=== PATIENT | female | born 1960 | race Hispanic/Latino ===

== ENCOUNTER 2024-03-05 17:41 | Emergency (ER) | payer BC, OTHER ==
--- OUTSIDE RECORDS SUMMARY | 2024-03-05 17:57 | XMS REPORT | Continuity of Care Document ---
Author Name Unknown Address [address] [facility] [address] [place] [address] [facility] Address [address] [facility] [address] [place] [address] Care Team Providers Care Eye Glass Frame Polisher Name Role Phone Ginette Nguyen Primary Care Physician [phone] JONATAN DIEZ Attending Clinician Unavaila ble Doctor Unassigned, [place] Attending Clinician U Bertin Alfonso MD Attending Clinician [phone] PUNEET RANDOLPH Attending Clinician Unavailable PUNEET RANDOLPH Attending Clinician Unavailable Bladimir BEAR, Justyn Gomez Attending Clinician [phone] Mando BEAR, Pawel Cortez Attending Clinician [phone] Serena BEAR, Delmar Attending Clinician [phone] Draw, Clc-B[facility] Lab Attending Clinician UnavailJonatan Woodson MD Attending Clinician + [phone] Desirae Corona Attending Clinician [phone] Dayan Nevarez MD Attending Clinician [phone] Puneet Randolph DO Attending Clinician [phone] Bertin Bates DO Attending Clinician [phone] Jignesh BEAR, Elmer Attending Clinician [phone] Franklyn BEAR, Pradeep Attending Clinician [phone] Rachel Lange CRNA Attending Clinician [phone] Kathleen BEAR, Rajesh Solorzano Attending Clinician [phone] Kamran BEAR, Hank Attending Clinician [phone] Clara BEAR, Len Attending Clinician [phone] Ara BEAR, Kwame Attending Clinician [phone] Kath Oden DO Attending Clinician [phone] Doctor Unassigned, [place] Attending Clinician U purvi Diez MD, Jonatan Dennis Attending Clinician + [phone] 2, Nelly Mda Procedure Rm Attending Clinician Unav ailable [email or web address] Attending Clinician Unavaila JACKY Guillaume Attending Clinician Unavailable JACKY ALMEIDA Attending Clinician Unavailable Leroy Martel MD Attending Clinician [phone] LEROY MARTEL Attending Clinician Unavailable Elton HOLDEN, Rasheeda Marroquin Attending Clinician Unavailetta Carroll MD, Glen Attending Clinician + [phone] Edward Ramríez MD Attending Clinician [phone] Floridalma HOLDEN, Tressa Rivera Attending Clinician Unavail able YO GREER Attending Clinician UnavailKarely QUIROZ, Otilia S Attending Clinician [phone] Yo Greer MD Attending Clinician [phone] Lab, Ang - Db Attending Clinician Unavailable KENNY YU Attending Clinician Unavailab Kenny Menon DO Attending Clinician [phone] RADHA PENA Attending Clinician Unavailable Pob, Adc Lab Main Attending Clinician UnavailStewart Styles MD Attending Clinician [phone] STEWART CASTANEDA Attending Clinician Unavailable Radha Pena MD Attending Clinician [phone] Chico Sotelo MD Attending Clinician [phone] CHICO SOTELO Attending Clinician Unavailable Cely BEAR, Danny Attending Clinician [phone] DANNY ANAYA Attending Clinician UnavailMaria Elena MARTINS, Jordan Attending Clinician [phone] JORDAN OTERO Attending Clinician Unavailable NICA HOSKINS Attending Clinician Unavailable Sara UTCKER, Nica Urban Attending Clinician [phone] Sabrina TRAFFIC OPERATIONS MANAGER, Leonidas Attending Clinician [phone] LEONIDAS MCGEE Attending Clinician Unavailable DELMAR GREER Admitting Clinician Unavailable Delmar Greer MD Admitting Clinician [phone] BERTIN ADAME Admitting Clinician Unavailable Bertin Adame MD Admitting Clinician [phone] [email or web address] Admitting Clinician UnavailLEROY Pulido Admitting Clinician Unavailable Leroy Martel MD Admitting Clinician [phone] YO GREER Admitting Clinician UnavailYo Elaine MD Admitting Clinician RADHA PENA Admitting Clinician Unavailable Radha Pena MD Admitting Clinician [phone] CHICO SOTELO Admitting Clinician Unavailable JORDAN OTERO Admitting Clinician Unavailable Payers Payer Name Policy Type Policy Number Effective Date Expirati on Date Source HIM [facility] [id number] 2022 00:00:00 Problems Condition Name Condition Details Condition Category Status Onset Date Resolution Date Last Treatment Date Treating Clinician Comments Source Hematuria, unspecifie d type Hematuria, unspecifie d type Disease Active 02-02 00:00: 00 [facility] Coagulatio n defect Coagulatio n defect Disease Active 12-31 00:00: 00 [facility] Nausea and vomiting, unspecifie d vomiting type Nausea and vomiting, unspecifie d vomiting type Disease Active 12-19 00:00: 00 [facility] Gross hematuria Gross hematuria Disease Active 12-19 00:00: 00 [facility] PVT (portal vein thrombosis ) PVT (portal vein thrombosis ) Disease Active 8-08 00:00: 00 [facility] Abdominal pain, unspecifie d abdominal location Abdominal pain, unspecifie d abdominal location Disease Active 7 00:00: 00 [facility] Personal history of colonic polyps Personal history of colonic polyps Disease Active 6 00:00: 00 Overview: Formattin g of this note might be different from the original. Added automatic ally from request for surgery [id number] [facility] Hematuria of unknown etiology Hematuria of unknown etiology Disease Active 3-02 00:00: 00 [facility] Radiation proctitis Radiation proctitis Disease Active 2021-05 2-16 00:00: 00 [facility] Hematochez ia Hematochez ia Disease Active 2021-05 1- 00:00: 00 [facility] Essential (primary) hypertensi on Essential (primary) hypertensi on Disease Recurre nce 12-09 00:00: 00 [facility] Urinary tract infection, site not specified Urinary tract infection, site not specified Disease Active 09-17 00:00: 00 [facility] H/O: hysterecto my H/O: hysterecto my Disease Active 09-17 00:00: 00 [facility] History of cervical cancer History of cervical cancer Disease Active 09-17 00:00: 00 [facility] Obesity Obesity Disease Active 09-17 00:00: 00 Overview: Formattin g of this note might be different from the original. 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 [facility] Hypothyroi d Hypothyroi d Disease Active 09-17 00:00: 00 [facility] Tobacco use disorder Tobacco use disorder Disease Active 09-17 00:00: 00 [facility] Allergies, Adverse Reactions, Alerts Allergy Name Allergy Type Status Severity Reaction(s) Onset Date Inactive Date Treating Clinician Comments Source [place] - Intraven ous Propensi ty to adverse reaction to drug Active 11-21 00:00: 00 Jonatan Eason NO KNOWN ALLERGIE S Drug Class Active [facility] Family History Family Member Diagnosis Comments Start Date Stop Date Sourc e Natural [facility] Diabetes [facility] Natural daughter Hypertension [facility] Natural father Cancer Unive [facility] Maternal Aunt High cholesterol [facility] Paternal Uncle [facility] Social History Social Habit Start Date Stop Date Quantity Comments Source History of tobacco use Passive smoker [facility] History SDOH Alcohol Frequency [facility] History SDOH [facility] History SDOH Alcohol Binge [facility] Gender identity Univ [facility] Sexual orientation [facility] Alcoholic beverage intake 2023-12-31 00:00:00 2023-12-31 00:00:00 Current drinker of alcohol (finding) [facility] Alcohol intake 2023-03-29 00:00:00 2023-03-29 00:00:00 Current drinker of alcohol (finding) [facility] History of Social function 2023-01-23 00:00:00 2023-01-23 00:00:00 [facility] Tobacco use and exposure 2022-11-21 00:00:00 2022-11-21 00:00:00 Smokeless tobacco non-user [facility] Exposure to SARS-CoV-2 (event) 2022-09-24 00:00:00 2022-10-04 08:51:00 Not sure [facility] Alcohol Comment 2014-09-16 00:00:00 2014-09-16 00:00:00 social use-once every other week, beer-daily [facility] Sex assigned at 1960 00:00:00 1960 00:00:00 [facility] Smoking Status Start Date Stop Date Source Ex-smoker 2022-11-21 00:00:00 2022-11-21 00:00:00 [facility] Occasional tobacco smoker 2022-01-23 00:00:00 [facility] Medications Ordered Medication Name Filled Medication Name Start Date Stop Date Current Medication? Ordering Clinician Indication Dosage Frequency Signature (SIG) Comments Components Source lisinopril 10 mg-hydrochl orothiazide 12.5 mg tablet 2023-05 00:00: 00 Yes 1mg Jonatan Eason ibuprofen 600 mg tablet 2023-05 00:00: 00 Yes 1mg Jonatan Eason folic acid 1 mg tablet 2023-05 00:00: 00 Yes 1mg Jonatan Eason atorvastati n 40 mg tablet 2023-05 00:00: 00 Yes 1mg Jonatan Eason lactulose 10 gram/15 mL (15 mL) oral solution 2023-05 00:00: 00 Yes 30(15 mL) Jonatan Eason lisinopril 10 mg-hydrochl orothiazide 12.5 mg tablet 02-07 00:00: 00 Yes 1mg Jonatan Eason atorvastati n 40 mg tablet 02-07 00:00: 00 Yes 1mg Jonatan Eason levothyroxi ne 100 mcg capsule 02-07 00:00: 00 Yes 1mcg Jonatan Eason amLODIPine 5 mg tablet 02-04 13:56: 33 Yes 5mg Take 1 tablet by mouth in the morning. [facility] HYDROmorpho ne (DILAUDID) injection 0.2 mg 02-03 19:19: 56 02-03 20:49 :01 No .2mg 0.2 mg, Slow IV Push, Q5MIN PRN, 10 doses, Starting on Sun02/04/24 at 1419, Until Sun02/04/24 at 1549, Routine, Pain (scale 7-10), PACU, Is this medication approved by a Faculty level provider? Yes, community board member approving Restricted medication : PACU RECOVERY [facility] HYDROcodone -acetaminop hen (NORCO 5) tablet 1 tablet 02-03 04:45: 00 02-03 04:08 :00 No 1{tbl} 1 tablet, Oral, ONCE, 1 dose, On 02/03/24 at 2345, Routine [facility] atorvastati n (LIPITOR) tablet 40 mg 02-03 02:00: 00 Yes 40mg 40 mg, Oral, QHS, First dose on Sun02/03/24 at 2100, Until Discontinu ed, Routine [facility] sodium chloride 0.9 % irrigation solution 3,000 mL 02-02 17:50: 32 Yes 3000mL 3,000 mL, Irrigation , PRN, Starting on Sun02/03/24 at 1250, Until Discontinu ed, 3,000 mL [facility] cefTRIAXone (ROCEPHIN) 1,000 mg in NaCl 0.9% (NS) 100 mL MINI-BAG 02-02 17:49: 00 02-02 20:33 :00 No 1000mg 1,000 mg, IV Piggyback, ONCE, 1 dose, On Sun02/03/24 at 1300, Administer over 30 Minutes, 100 mL, Reason for Anti-Infec tive: Surgical Prophylaxi s, Surgical Prophylaxi s: Genitourin pao, Duration of therapy: within 24 hours of surgery [facility] NaCl 0.9% (NS) IV Line Priming and Flushing Fluid Only 250 mL 02-02 17:15: 00 02-02 18:27 :00 No 250mL 250 mL, IV Infusion, ONCE, 1 dose, On Sun02/03/24 at 1215, 250 mL [facility] ferrous sulfate tablet 325 mg 02-02 15:33: 10 Yes 325mg 325 mg, Oral, Q OTHERDAY, First dose on Sun02/03/24 at 1045, Until Discontinu ed, Routine [facility] lactulose (CEPHULAC) 10 gram/15 mL (15 mL) oral solution 30 mL 02-02 14:00: 00 Yes 30mL 30 mL, Oral, DAILY, First dose on Sun02/03/24 at 0900, Until Discontinu ed, Routine [facility] foLIC acid (FOLATE) tablet 1 mg 02-02 14:00: 00 Yes 1mg 1 mg, Oral, DAILY, First dose on Sun02/03/24 at 0900, Until Discontinu ed, Routine [facility] thiamine mononitrate (VITAMIN B-1 (MONONITRAT E)) tablet 100 mg 02-02 13:00: 00 Yes 100mg 100 mg, Oral, TID, First dose on Sun02/03/24 at 0800, Until Discontinu ed, Routine [facility] magnesium sulfate in water 4 gram/50 mL (8 %) IV Piggyback 4 g 02-02 12:30: 00 02-02 14:30 :00 No 4g 4 g, IV Piggyback, at 25 mL/hr Administer over 120 Minutes, ONCE, 1 dose, On Sun02/03/24 at 0730, Routine [facility] KCL (KLOR-CON M20) tablet 40 mEq 02-02 12:30: 00 02-02 14:06 :00 No 40meq 40 mEq, Oral, ONCE, 1 dose, On Sun02/03/24 at 0730, Routine [facility] levothyroxi ne (SYNTHROID) tablet 100 mcg 02-02 11:00: 00 Yes 100ug 100 mcg, Oral, QAM-0600, First dose on Sun02/03/24 at 0600, Until Discontinu ed, Routine [facility] iopamidol (ISOVUE 370-500 mL) injection 100 mL 02-02 08:45: 00 02-02 08:45 :00 No [id number] 100mL 100 mL, Intravenou s, ONCE, 1 dose, On Sun02/03/24 at 0345, Routine [facility] acetaminoph en (TYLENOL) tablet 650 mg 02-02 06:44: 01 Yes 650mg [facility] NaCl 0.9% (NS) IV Line Priming and Flushing Fluid Only 250 mL 02-02 05:45: 00 02-02 09:16 :00 No 250mL 250 mL, IV Infusion, ONCE, 1 dose, On Sun02/03/24 at 0045, 250 mL [facility] lisinopril 10 mg-hydrochl orothiazide 12.5 mg tablet 02-01 00:00: 00 Yes 1mg Jonatan Eason folic acid 1 mg tablet 02-01 00:00: 00 Yes 1mg Jonatan Eason atorvastati n 40 mg tablet 02-01 00:00: 00 Yes 1mg Jonatan Eason levothyroxi ne 100 mcg capsule 02-01 00:00: 00 Yes 1mcg Jonatan Eason lactulose 10 gram/15 mL (15 mL) oral solution 02-01 00:00: 00 Yes 1(15 mL) Jonatan Eason foLIC acid 1 mg tablet 01-04 00:00: 00 Yes [id number] 1mg Take 1 tablet by mouth in the morning. [facility] lactated ringers IV infusion 500 mL 01-03 14:15: 00 01-03 13:46 :00 No 500mL at 999 mL/hr, 500 mL, Intravenou s, ONCE, 1 dose, On Sun01/04/24 at 0915, Routine [facility] thiamine mononitrate 100 mg tablet 01-03 00:00: 00 Yes [id number] 100mg Take 1 tablet by mouth in the morning and 1 tablet at noon and 1 tablet in the evening. [facility] lactulose 10 gram/15 mL solution 01-03 00:00: 00 Yes [id number] 30mL Take 30 mL by mouth in the morning. [facility] atorvastati n 40 mg tablet 01-03 00:00: 00 Yes [id number] 40mg Take 1 tablet by mouth at bedtime. [facility] iopamidol (ISOVUE 300-100 mL) injection 200 mL 01-02 19:59: 36 01-02 20:00 :00 No [id number] 200mL 200 mL, Intravenou s, TITRATE - FOR PROCEDURE USE, 1 dose, Starting on Sun01/03/24 at 1459, Until Sun01/03/24 at 1500, Routine, Surgery/Pr ocedure [facility] iopamidol (ISOVUE 370-500 mL) injection 100 mL 12-31 21:15: 00 12-31 20:17 :00 No [id number] 100mL 100 mL, Intravenou s, ONCE, 1 dose, On Sun01/01/24 at 1615, Routine [facility] acetaminoph en-codeine (TYLENOL #3) 300-30 mg tablet 1 tablet 12-31 04:36: 28 Yes 1{tbl} 1 tablet, Oral, Q6HPRN, Starting on Sun12/31/23 at 2336, Until Discontinu ed, Routine, Pain (scale 4-6), Pain (scale 7-10) [facility] iopamidol (ISOVUE 300-100 mL) injection 300 mL 12-31 00:45: 00 12-30 23:47 :00 No [id number] 300mL 300 mL, Intravenou s, ONCE, 1 dose, On Sun12/31/23 at 1945, [facility] sugammadex (BRIDION) injection 12-30 23:30: 00 12-31 00:19 :09 No IV Push, ONCE INTRA PROCEDURE, Starting on Sun12/31/23 at 1830, Until Sun12/31/23 at 1919, Routine, Intra-op [facility] dexamethaso ne (DECADRON PHOSPHATE) injection 12-30 21:05: 00 12-31 00:19 :09 No IV Push, ONCE INTRA PROCEDURE, Starting on Sun12/31/23 at 1605, Until Sun12/31/23 at 191, Routine, Intra-op [facility] ondansetron (ZOFRAN (PF)) injection 12-30 21:05: 00 12-31 00:19 :09 No Slow IV Push, ONCE INTRA PROCEDURE, Starting on Sun12/31/23 at 1605, Until Sun12/31/23 at 191, Routine, Intra-op [facility] heparin (1,000 unit/mL, 10 mL vial) 12-30 20:32: 00 12-31 00:19 :09 No ONCE INTRA PROCEDURE, Starting on Sun12/31/23 at 1532, Until Sun12/31/23 at 1919, Routine, Intra-op [facility] heparin flush (PF) 2,000 units in 1000 mL NS RTU injection 12-30 20:26: 20 12-30 20:26 :20 No IV Push, PRN, Starting on Sun12/31/23 at 1526, Intra-op [facility] lidocaine 1% (PF) (XYLOCAINE) injection 12-30 20:25: 46 12-30 20:25 :46 No PRN, Starting on Sun12/31/23 at 1525, Until Sun12/31/23 at 1525, Routine, Intra-op [facility] PHENYLephri ne 1000 mcg/10 mL in 0.9% NaCl syringe 12-30 19:45: 00 12-31 00:19 :09 No Slow IV Push, CONTINUOUS PRN, Starting on Sun12/31/23 at 1445, Until Sun12/31/23 at 191, Routine, Intra-op [facility] ePHEDrine 25 mg/5 mL (5 mg/mL) syringe 12-30 19:35: 00 12-31 00:19 :09 No Slow IV Push, ONCE INTRA PROCEDURE, Starting on Sun12/31/23 at 1435, Until Sun12/31/23 at 191, Routine, Intra-op [facility] rocuronium (ZEMURON) injection 12-30 19:05: 00 12-31 00:19 :09 No IV Push, ONCE INTRA PROCEDURE, Starting on Sun12/31/23 at 1405, Until Sun12/31/23 at 191, Routine, Intra-op [facility] ceFAZolin (ANCEF) injection 12-30 18:55: 00 12-31 00:19 :09 No Intravenou s, ONCE INTRA PROCEDURE, Starting on Sun12/31/23 at 1355, Until Sun12/31/23 at 1919, NURIA, Intra-op [facility] NaCl 0.9% (NS) IV infusion 12-30 18:10: 12-31 00:19 :09 No IV Infusion, CONTINUOUS PRN, Starting on Sun12/31/23 at 1310, Until Sun12/31/23 at 191, Routine, Intra-op [facility] propofoL IV infusion 12-30 18:04: 00 12-31 00:19 :09 No Intravenou s, ONCE INTRA PROCEDURE, Starting on Sun12/31/23 at 1304, Until Sun12/31/23 at 1918, Routine, Intra-op [facility] lidocaine 1% (XYLOCAINE) 100 mg/10 mL (1 %) injection 12-30 18:04: 00 12-31 00:19 :09 No Intravenou s, ONCE INTRA PROCEDURE, Starting on Sun12/31/23 at 1304, Until Sun12/31/23 at 1918, Routine, Intra-op [facility] FENTanyl (PF) (SUBLIMAZE) injection 12-30 18:04: 00 12-31 00:19 :09 No Intravenou s, ONCE INTRA PROCEDURE, Starting on Sun12/31/23 at 1304, Until Sun12/31/23 at 1918, Routine, Intra-op [facility] lactated ringers IV infusion 12-30 17:56: 00 12-31 00:19 :09 No IV Infusion, CONTINUOUS PRN, Starting on Sun12/31/23 at 1256, Until Sun12/31/23 at 191, Routine, Intra-op [facility] midazolam (VERSED) injection 12-30 17:56: 00 12-31 00:19 :09 No IV Push, ONCE INTRA PROCEDURE, Starting on Sun12/31/23 at 1256, Until Sun12/31/23 at 1918, Routine, Intra-op [facility] carvediloL (COREG) tablet 3.125 mg 12-26 22:00: 00 01-01 12:13 :18 No 3.125mg 3.125 mg, Oral, BID MEALS, First dose on Tanisha 12/27/23 at 1700, Until Discontinu ed, Routine [facility] heparin 25,000 Units/250 mL (Premixed Bag) in 0.45 % NS 12-26 16:32: 44 12-28 00:54 :47 No 0U/h 0-2,350 Units/hr (0-23.5 mL/hr), IV Infusion, TITRATE, Parameters in Admin. Instr., Starting on Tanisha 12/27/23 at 1132, Initiate dosing: -Patient 73 kg or under: 1,300 Units/hr (Calculate d dose at 18 units/kg/h r) -Patient over 73 k,300 units/hr DO NOT Exceed the MAXIMUM 1,300 units/hr for initiation of heparin drip. CAUTION - If LMWH given in ER, AVOID bolus and start next dose/drip 12 hrs after ER dosage. Must program rate using programmab le infusion pump. Check with the ordering provider first prior to any administra tion should the patient be on existing/a dditional anticoagul ant therapy. Range, Dosing and Testing: DO NOT ADJUST INITIAL BOLUS OR INITIAL INFUSION RATE. FOR SNEADS, [facility], AND [facility] ONLY - aPTT < 35: Bolus 5000 units, increase rate 300 units/hr - aPTT 35-44: Bolus 3000 units, increase rate 200 units/hr - aPTT 45-54: Increase rate 100 units/hr - aPTT 55-85: NO CHANGE - aPTT 86-95: Decrease rate 100 units/hr - aPTT 96-120: Hold 30 minutes, decrease rate 150 units/hr - aPTT > 120: Hold 60 minutes, decrease rate 200 units/hr Check aPTT 6 hours after initiation , then Q6H after every change, aPTT Q12H once therapeuti c levels are reached. FOR [facility] ONLY - aPTT < 40: Bolus 5000 units, increase rate 300 units/hr - aPTT 40-49: Bolus 3000 units, increase rate 200 units/hr - aPTT 50-59: Increase rate 100 units/hr - aPTT 60-85: NO CHANGE - aPTT 86-95: Decrease rate 100 units/hr - aPTT 96-120: Hold 30 minutes, decrease rate 150 units/hr - aPTT > 120: Hold 60 minutes, decrease rate 200 units/hr Check aPTT 6 hours after initiation , then Q6H after every change, aPTT Q12H once therapeuti c levels are reached. [facility] heparin (1,000 unit/mL, 10 mL vial) 12-26 16:32: 35 Yes 3000U FOR REBOLUSING , Starting on Tanisha 12/27/23 at 1132, Until Discontinu ed, Routine, Dosing based on aPTT testing parameters (refer to continuous heparin drip order) [facility] thiamine mononitrate (VITAMIN B-1 (MONONITRAT E)) tablet 100 mg 12-24 13:00: 00 Yes 100mg 100 mg, Oral, TID, First dose on Sun12/25/23 at 0800, Until Discontinu ed, Routine [facility] oxazepam (SERAX) capsule 15 mg 12-23 22:53: 55 12-24 22:59 :00 Yes 15mg 15 mg, Oral, Q12H TAPER, 2 doses, First dose on Sun12/24/23 at 1800, Last dose on Sun12/25/23 at 0600, Routine [facility] KCL (KLOR-CON M20) tablet 40 mEq 12-22 19:30: 00 12-22 19:47 :00 No 40meq 40 mEq, Oral, ONCE, 1 dose, On 12/23/23 at 1430, Routine [facility] iopamidol (ISOVUE 370-500 mL) injection 100 mL 12-22 19:30: 00 12-22 20:17 :00 No [id number] 100mL 100 mL, Intravenou s, ONCE, 1 dose, On 12/23/23 at 1430, Routine [facility] foLIC acid (FOLATE) tablet 1 mg 12-22 14:00: 00 Yes 1mg 1 mg, Oral, DAILY, First dose on 12/23/23 at 0900, Until Discontinu ed, Routine [facility] lisinopriL (PRINIVIL,Z ESTRIL) tablet 10 mg 12-22 14:00: 00 12-27 11:28 :29 No 10mg 10 mg, Oral, DAILY, First dose on 12/23/23 at 0900, Until Discontinu ed, Routine [facility] levothyroxi ne (SYNTHROID) tablet 125 mcg 12-22 11:00: 00 Yes 125ug 125 mcg, Oral, QAM-0600, First dose (after last modificati on) on 12/23/23 at 0600, Until Discontinu ed, Routine [facility] lactulose (CEPHULAC) 10 gram/15 mL oral solution 30 mL 12-22 01:00: 00 Yes 30mL 30 mL, Oral, BID, First dose on 12/22/23 at 2000, Until Discontinu ed, Routine [facility] vitamin B-12 (CYANOCOBAL DAVIS) tablet 1,000 mcg 12-21 17:00: 00 Yes 1000ug 1,000 mcg, Oral, DAILY, First dose on 12/22/23 at 1200, Until Discontinu ed, Routine [facility] thiamine (VITAMIN B1) 100 mg in NaCl 0.9% (NS) piggyback 12-21 17:00: 00 12-24 01:35 :00 No 100mg IV Piggyback, TID, 9 doses, First dose on 12/22/23 at 1200, Last dose on 12/24/23 at 2000, 50 mL [facility] oxazepam (SERAX) capsule 15 mg 12-21 16:53: 55 Yes 15mg 15 mg, Oral, Q4HPRN, Starting on 12/22/23 at 1153, Until Discontinu ed, Routine, Only while awake for DBP equal to or greater than 100, HR equal to or greater than 100. [facility] cefTRIAXone (ROCEPHIN) 1,000 mg in NaCl 0.9% (NS) 100 mL MINI-BAG 12-21 06:00: 00 12-24 22:22 :05 No 1000mg 1,000 mg, IV Piggyback, Q24H ABX, 5 doses, First dose on Sun12/22/23 at 0100, Last dose on Sun12/26/23 at 0100, Administer over 30 Minutes, 100 mL, Reason for Anti-Infec tive: Empiric Non-Surgic al Prophylaxi s, Duration of therapy: 72 hours [facility] sodium chloride 0.9 % irrigation solution 3,000 mL 12-21 02:51: 05 Yes 3000mL 3,000 mL, Irrigation , PRN, Starting on Sun12/21/23 at 2151, Until Discontinu ed, 3,000 mL [facility] NaCl 0.9% (NS) IV infusion 1,000 mL 12-21 02:15: 00 12-24 22:17 :39 No 1000mL at 42 mL/hr, IV Infusion, CONTINUOUS , Starting on Sun12/21/23 at 2115, Until Sun12/25/23 at 1717, Routine [facility] sodium ferric gluconate (FERRLECIT) 125 mg in NaCl 0.9% (NS) 100 mL IV piggyback 12-20 16:00: 00 12-22 13:59 :00 No 125mg 125 mg, IV Piggyback, DAILY, 2 doses, First dose (after last reorder) on Sun12/21/23 at 1100, Last dose on Sun12/22/23 at 0900, Administer over 60 Minutes, 100 mL [facility] acetaminoph en (TYLENOL) tablet 650 mg 12-20 13:00: 00 12-20 13:52 :00 No 650mg 650 mg, Oral, ONCE, 1 dose, On Sun12/21/23 at 0800, Routine [facility] levothyroxi ne (SYNTHROID) tablet 100 mcg 12-20 11:00: 00 12-21 16:53 :37 No 100ug 100 mcg, Oral, QAM-0600, First dose on Sun12/21/23 at 0600, Until Discontinu ed, Routine [facility] atorvastati n (LIPITOR) tablet 40 mg 12-20 02:00: 00 Yes 40mg 40 mg, Oral, QHS, First dose on Sun12/20/23 at 2100, Until Discontinu ed, Routine [facility] sodium ferric gluconate (FERRLECIT) 125 mg in NaCl 0.9% (NS) 100 mL IV piggyback 12-20 00:00: 00 12-20 06:50 :00 No 125mg 125 mg, IV Piggyback, ONCE, 1 dose, On Sun12/20/23 at 1900, Administer over 60 Minutes, 100 mL [facility] KCL (KLOR-CON M20) tablet 40 mEq 12-19 19:15: 00 12-19 19:33 :00 No 40meq 40 mEq, Oral, ONCE, 1 dose, On Sun12/20/23 at 1415, Routine [facility] ondansetron (ZOFRAN (PF)) injection 4 mg 12-19 18:25: 49 Yes 4mg [facility] acetaminoph en (TYLENOL) tablet 650 mg 12-19 18:25: 32 Yes 650mg 650 mg, Oral, Q6HPRN, Starting on Sun12/20/23 at 1325, Until Discontinu ed, Routine, Pain (scale 1-3), Temp > 38 C [facility] iopamidol (ISOVUE 370-500 mL) injection 80 mL 12-19 17:00: 00 12-19 17:00 :00 No [id number] 80mL 80 mL, Intravenou s, ONCE, 1 dose, On Sun12/20/23 at 1200, Routine [facility] atorvastati n 40 mg tablet 12-19 16:26: 37 2024- 08-08 00:00 :00 No 40mg Take 1 tablet by mouth at bedtime. [facility] lisinopriL- hydrochloro thiazide 20-25 mg per tablet 12-19 16:26: 35 01-03 00:00 :00 No 1{tbl} Take 1 tablet by mouth in the morning. [facility] ondansetron (ZOFRAN (PF)) injection 4 mg 12-19 15:00: 00 12-19 14:23 :00 No 4mg 4 mg, Slow IV Push, ONCE, 1 dose, On [facility] 12/20/23 at 1000, NURIA [facility] NaCl 0.9% (NS) bolus infusion 1,000 mL 12-19 14:45: 00 12-19 15:14 :00 No 1000mL at 999 mL/hr, 1,000 mL, IV Infusion, ONCE, 1 dose, On [facility] 12/20/23 at 0945, STAT [facility] TAKE 1 TABLET BY MOUTH ONCE DAILY 07-04 00:00: 00 Yes 100 Jonatan Eason TAKE 1 TABLET BY MOUTH ONCE DAILY 06-25 00:00: 00 07-09 00:00 :00 No 100 Jonatan Eason TAKE 1 TABLET DAILY. 05-21 00:00: 00 Yes 2024 Jonatan Eason USE 1 SPRAY IN EACH NOSTRIL TWICE DAILY. 2022-05 00:00: 00 07-09 00:00 :00 No 5 Jonatan Eason atorvastati n 40 mg tablet 02-02 10:53: 26 Yes 40mg Take 1 tablet by mouth at bedtime. [facility] lisinopriL- hydrochloro thiazide 20-25 mg per tablet 02-02 10:53: 26 Yes 1{tbl} Take 1 tablet by mouth in the morning. [facility] lisinopriL- hydrochloro thiazide 20-25 mg per tablet 01-23 19:40: 32 Yes 1{tbl} Take 1 tablet by mouth in the morning. [facility] atorvastati n 40 mg tablet 01-23 19:40: 32 Yes 40mg Take 1 tablet by mouth at bedtime. [facility] midazolam (VERSED) injection 01-23 14:43: 00 01-23 15:10 :29 No IV Push, ONCE INTRA PROCEDURE, Starting on Sun01/23/23 at 0943, Until Sun01/23/23 at 1010, Routine, Intra-op [facility] FENTanyl PF (SUBLIMAZE (PF)) injection 01-23 14:40: 00 01-23 15:10 :29 No Epidural, ONCE INTRA PROCEDURE, Starting on Sun01/23/23 at 0940, Until Sun01/23/23 at 1010, Routine, Intra-op [facility] lidocaine 1% (XYLOCAINE) 100 mg/10 mL (1 %) injection 01-23 14:34: 00 01-23 15:10 :29 No Slow IV Push, ONCE INTRA PROCEDURE, Starting on Sun01/23/23 at 0934, Until Sun01/23/23 at 1010, Routine, Intra-op [facility] propofoL IV infusion 01-23 14:34: 00 01-23 15:10 :29 No IV Infusion, ONCE INTRA PROCEDURE, Starting on Sun01/23/23 at 0934, Until Sun01/23/23 at 1010, Routine, Intra-op [facility] simethicone (GAS RELIEF (SIMETHICON E)) 40 mg/0.6 mL drops 01-23 14:33: 00 01-23 15:10 :00 No PRN, Starting on Sun01/23/23 at 0933, Until Sun01/23/23 at 1010, Routine, Intra-op [facility] lactated ringers IV infusion 01-23 14:26: 00 01-23 15:10 :29 No IV Infusion, CONTINUOUS PRN, Starting on Sun01/23/23 at 0926, Until Sun01/23/23 at 1010, Routine, Intra-op [facility] lactated ringers IV infusion 1,000 mL 01-23 13:45: 00 01-23 13:46 :00 No 1000mL at 42 mL/hr, 1,000 mL, IV Infusion, ONCE, 1 dose, On Sun01/23/23 at 0845, Routine, DSU Pre-op [facility] GAVILYTE-G 236 GM SOLR 01-19 00:00: 00 Yes Jonatan Eason peg-electro lyte soln 236-22.74-6 .74 -5.86 gram solution 01-19 00:00: 00 01-23 00:00 :00 No [id number] Take as directed before colonoscop y [facility] lisinopriL- hydrochloro thiazide 20-25 mg per tablet 11-23 15:29: 39 Yes 1{tbl} Take 1 tablet by mouth in the morning. [facility] atorvastati n 40 mg tablet 11-23 15:29: 39 Yes 40mg Take 1 tablet by mouth at bedtime. [facility] levothyroxi ne (SYNTHROID) 100 mcg tablet 11-23 15:29: 38 11-23 00:00 :00 No 100ug Take 1 tablet by mouth every morning. [facility] enoxaparin (LOVENOX) injection 40 mg 11-23 14:00: 00 Yes 40mg 40 mg, Subcutaneo us, DAILY, First dose on Sun11/23/22 at 0900, Until Discontinu ed, Routine [facility] pantoprazol e (PROTONIX) EC tablet 40 mg 11-23 13:15: 00 Yes 40mg 40 mg, Oral, Q12H, First dose on Sun11/23/22 at 0815, Until Discontinu ed, Routine [facility] KCL (KLOR-CON M20) tablet 40 mEq 11-23 13:10: 00 11-23 17:24 :00 No 40meq 40 mEq, Oral, ONCE, 1 dose, On Sun11/23/22 at 0815, [facility] atorvast[facility] (LIPITOR) tablet 40 mg 11-23 02:00: 00 Yes 40mg 40 mg, Oral, QHS, First dose on Sun11/22/22 at 2100, Until Discontinu ed, Routine [facility] lisinopriL (PRINIVIL,Z ESTRIL) tablet 20 mg 11-23 00:15: 00 Yes 20mg 20 mg, Oral, DAILY, First dose (after last modificati on) on Sun11/22/22 at 1915, Until Discontinu ed, Routine [facility] NaCl 0.9% (NS) IV infusion 1,000 mL 11-22 21:15: 00 11-23 14:17 :05 No 1000mL at 50 mL/hr, IV Infusion, CONTINUOUS , Starting on Sun11/22/22 at 1615, Until Sun11/23/22 at 0917, Routine [facility] diatrizoate maria esther-diatriz oat sod (GASTROGRAF IN) 66-10 % oral solution 120 mL 11-22 20:00: 00 11-22 20:00 :00 No [id number] 120mL 120 mL, Oral, ONCE, 1 dose, On Sun11/22/22 at 1500, Routine [facility] pantoprazol e (PROTONIX) injection 40 mg 11-22 13:00: 00 11-23 13:12 :51 No 40mg 40 mg, Slow IV Push, Q12H, First dose on Sun11/22/22 at 0800, Until Discontinu ed [facility] levothyroxi [facility] (SYNTHROID) tablet 125 mcg 11-22 11:00: 00 Yes 125ug 125 mcg, Oral, QAM-0600, First dose on Sun11/22/22 at 0600, Until Discontinu ed, [facility] levothyroxi [facility] (SYNTHROID) tablet 100 mcg 11-22 11:00: 00 11-23 00:12 :02 No 100ug 100 mcg, Oral, QAM-0600, First dose on Sun11/22/22 at 0600, Until Discontinu ed, Routine [facility] piperacilli n-tazobacta m (ZOSYN) 3.375 g in NaCl 0.9% (NS) 100 mL MINI-BAG 11-22 05:00: 00 11-22 17:30 :22 No 3.375g 3.375 g, IV Piggyback, Q6H, 6 doses, First dose on Sun11/22/22 at 0000, Last dose on Sun11/23/22 at 0600, Administer over 30 Minutes, 100 mL
Reas on for Anti-Infec tive: Documented Infection& lt;br>Docu mented Infection Site: Abdominal< br>Duratio n of Therapy: 7 days [facility] NaCl 0.9% (NS) IV infusion 1,000 mL 11-22 01:30: 00 11-22 21:09 :34 No 1000mL at 125 mL/hr, IV Infusion, CONTINUOUS , Starting on Sun11/21/22 at 2030, Until Sun11/22/22 at 1609, Routine [facility] ondansetron (ZOFRAN (PF)) injection 4 mg 11-22 01:18: 18 Yes 4mg 4 mg, Slow IV Push, Q6HPRN, Starting on Sun11/21/22 at 2018, Until Discontinu ed, Routine, Nausea and Vomiting (N/V) [facility] iopamidol (ISOVUE 370-500 mL) injection 65 mL 11-21 23:15: 00 11-21 23:15 :00 No [id number] 65mL 65 mL, Intravenou s, ONCE, 1 dose, On Sun11/21/22 at 1815, Routine [facility] proMETHazin e (PHENERGAN) 25 mg in NaCl 0.9% (NS) 50 mL IV piggyback 11-21 20:15: 00 11-21 20:21 :00 No 25mg 25 mg, IV Piggyback, ONCE, 1 dose, On Sun11/21/22 at 1515, NURIA [facility] NaCl 0.9% (NS) bolus infusion 1,000 mL 11-21 20:00: 00 11-21 20:20 :00 No 1000mL at 999 mL/hr, 1,000 mL, IV Infusion, ONCE, 1 dose, On Sun11/21/22 at 1500, STAT [facility] ondansetron (ZOFRAN (PF)) injection 4 mg 11-21 19:00: 00 11-21 19:09 :00 No 4mg 4 mg, Slow IV Push, ONCE, 1 dose, On Sun11/21/22 at 1400, NURIA [facility] CIPROFLOXAC IN HCL 500 MG TABS 11-03 00:00: 00 Yes Jonatan Eason estradioL (ESTRACE) 0.01 % (0.1 mg/gram) vaginal cream 11-03 00:00: 00 02-02 00:00 :00 No [id number] Apply 1g vaginally at bedtime every night for 2 weeks and then apply 1g vaginally at bedtime 2 times per week [facility] ciprofloxac in HCl (CIPRO) 500 mg tablet 11-03 00:00: 00 11-11 04:59 :00 No 500mg Take 1 tablet by mouth every 12 (twelve) hours for 7 days. [facility] sulfamethox azole-trime thoprim 800-160 mg per tablet 11-03 00:00: 00 11-03 00:00 :00 No [id number] 1{tbl} Take 1 tablet by mouth in the morning and 1 tablet in the evening. Do all this for 3 days. [facility] sulfamethox azole-trime thoprim 800-160 mg per tablet 10-31 00:00: 00 11-03 00:00 :00 No [id number] 1{tbl} Take 1 tablet by mouth in the morning and 1 tablet in the evening. Do all this for 3 days. [facility] peg-electro lyte soln 236-22.74-6 .74 -5.86 gram solution 6-09 00:00: 00 10-21 04:59 :00 No [id number] 8000mL Take 8,000 mL by mouth once now for 1 dose. [facility] LEVOTHYROXI NE SODIUM 100 MCG TABS 5-04 00:00: 00 07-09 00:00 :00 No Jonatan Eason lisinopriL- hydrochloro thiazide 20-25 mg per tablet 07-13 08:41: 40 Yes 1{tbl} Take 1 tablet by mouth in the morning. [facility] atorvastati n 40 mg tablet 07-13 08:41: 40 Yes 40mg Take 1 tablet by mouth at bedtime. [facility] AMLODIPINE BESYLATE 5 MG TABS 06-02 00:00: 00 Yes Jonatan Eason TAKE 1 TABLET DAILY. 05-25 00:00: 00 07-09 00:00 :00 No 100 Jonatan Eason TAKE 1 TABLET DAILY. 05-22 00:00: 00 07-09 00:00 :00 No 40 Jonatan Eason TAKE 1 TABLET BY MOUTH ONCE DAILY 05-22 00:00: 00 07-09 00:00 :00 No Jonatan Eason hydrocortis one 100 mg/60 mL enema 2021-05 00:00: 00 Yes [id number] 4102 100mg Insert 1 Enema into rectum at bedtime. [facility] HYDROCORTIS ONE 100 MG/60ML ENEM 2021-05 00:00: 00 Yes Jonatan Eason TAKE 1 CAPSULE BY MOUTH THREE TIMES DAILY FOR 10 DAYS 2021-05 00:00: 00 No USE DIRECTED , USE 1 UNIT PER YOUR COLONOSCOPY PREP PACKET 2021-05 00:00: 00 No TAKE 1 TABLET BY MOUTH ONCE DAILY 2021-05 00:00: 00 No TAKE 1 TABLET DAILY. 2021-05 00:00: 00 No TAKE 1 TABLET DAILY. 2021-05 00:00: 00 No TAKE 1 TABLET BY MOUTH ONCE DAILY 2021-05 00:00: 00 No Dose Unknown 2021-05 00:00: 00 No INSTILL 1 DROP EVERY NIGHT AT BEDTIME BOTH EYES 2021-05 00:00: 00 No Dose Unknown 2021-05 00:00: 00 No TAKE DIRECTED 2021-05 00:00: 00 No TAKE 1 CAPSULE BY MOUTH THREE TIMES DAILY FOR 10 DAYS 2021-05 00:00: 00 Yes Jonatan Eason USE DIRECTED , USE 1 UNIT PER YOUR COLONOSCOPY PREP PACKET 2021-05 00:00: 00 Yes Jonatan Eason TAKE 1 TABLET BY MOUTH ONCE DAILY 2021-05 00:00: 00 Yes Jonatan Eason Dose Unknown 2021-05 00:00: 00 Yes Jonatan Eason INSTILL 1 DROP EVERY NIGHT AT BEDTIME BOTH EYES 2021-05 00:00: 00 Yes Jonatan Eason Dose Unknown 2021-05 00:00: 00 Yes Jonatan Eason Dose Unknown 2021-05 00:00: 00 Yes Jonatan Eason TAKE 1 TABLET DAILY. 2021-05 00:00: 00 07-09 00:00 :00 No Jonatan Eason TAKE 1 TABLET DAILY. 2021-05 00:00: 00 07-09 00:00 :00 No Jonatan Eason TAKE 1 TABLET BY MOUTH ONCE DAILY 2021-05 00:00: 00 07-09 00:00 :00 No Jonatan Eason water for irrigation irrigation solution 2021-05 13:48: 00 04-21 14:38 :32 No PRN, Starting on Sun04/21/22 at 0748, Until Sun04/21/22 at 0838, Routine, Intra-op [facility] simethicone (GAS RELIEF (SIMETHICON E)) 40 mg/0.6 mL drops 2021-05 13:48: 00 04-21 14:38 :32 No PRN, Starting on Sun04/21/22 at 0748, Until Sun04/21/22 at 0838, Routine, Intra-op [facility] lactated ringers IV infusion 1,000 mL 2021-05 13:15: 00 04-21 13:28 :00 No 1000mL at 42 mL/hr, 1,000 mL, IV Infusion, ONCE, 1 dose, On Sun04/21/22 at 0715, Routine, DSU Pre-op [facility] lisinopriL- hydrochloro thiazide 20-25 mg per tablet 2021-05 09:23: 32 Yes 1{tbl} Take 1 tablet by mouth in the morning. [facility] atorvastati n 40 mg tablet 2021-05 09:23: 32 Yes 40mg Take 40 mg by mouth at bedtime. [facility] INSTILL 1 DROP INTO BOTH EYES EVERY NIGHT AT BEDTIME 2021-05 00:00: 00 Yes Jonatan Eason TRAVOPROST (ANA FREE) 0.004 % SOLN 2021-05 00:00: 00 Yes Jonatan Eason TAKE DIRECTED 2021-05 00:00: 00 Yes Jonatan Eason ESTRADIOL 0.1 MG/GM CREA 2021-05 00:00: 00 Yes 1 Jonatan Eason lisinopriL- hydrochloro thiazide 20-25 mg per tablet 2021-05 14:57: 17 Yes 1{tbl} Take 1 tablet by mouth in the morning. [facility] atorvastati n 40 mg tablet 2021-05 14:57: 17 Yes 40mg Take 40 mg by mouth at bedtime. [facility] TAKE 1 TABLET BY MOUTH ONCE DAILY 01-23 00:00: 00 No TAKE 1 TABLET BY MOUTH ONCE DAILY 01-23 00:00: 00 No TAKE 1 TABLET BY MOUTH ONCE DAILY 01-23 00:00: 00 No TAKE 1 TABLET BY MOUTH ONCE DAILY 01-23 00:00: 00 No TAKE 1 TABLET BY MOUTH ONCE DAILY 01-23 00:00: 00 No TAKE 1 TABLET BY MOUTH ONCE DAILY 01-23 00:00: 00 Yes Jonatan Elisabeth Jenaro Dose Unknown 8-15 00:00: 00 No Dose Unknown 2022-0 8-15 00:00: 00 No Dose Unknown 2022-0 8-15 00:00: 00 No Dose Unknown 2022-0 8-15 00:00: 00 No Dose Unknown 2022-0 8-15 00:00: 00 No Dose Unknown 2022-0 8-15 00:00: 00 No Dose Unknown 2022-0 8-15 00:00: 00 Yes Jonatan Eason Dose Unknown 2022-0 8-15 00:00: 00 Yes Jonatan Eason TAKE 1 TABLET DAILY. 2022-0 8-10 00:00: 00 No 40 Dose Unknown 2022-0 8-10 00:00: 00 No TAKE 1 TABLET DAILY. 2022-0 8-10 00:00: 00 No 40 Dose Unknown 2022-0 8-10 00:00: 00 No TAKE 1 TABLET DAILY. 2022-0 8-10 00:00: 00 No 40 Dose Unknown 2022-0 8-10 00:00: 00 No TAKE 1 TABLET DAILY. 2022-0 8-10 00:00: 00 No 40 Dose Unknown 2022-0 8-10 00:00: 00 No TAKE 1 TABLET DAILY. 2022-0 8-10 00:00: 00 No 40 Dose Unknown 2022-0 8-10 00:00: 00 No TAKE 1 TABLET DAILY. 2022-0 8-10 00:00: 00 Yes 40 Jonatan Eason Dose Unknown 2022-0 8-10 00:00: 00 Yes Jonatan Eason Dose Unknown 2022-0 8-05 00:00: 00 No Dose Unknown 2022-0 8-05 00:00: 00 No Dose Unknown 2022-0 8-05 00:00: 00 No Dose Unknown 2022-0 8-05 00:00: 00 No Dose Unknown 2022-0 8-05 00:00: 00 No Dose Unknown 2022-0 8-05 00:00: 00 Yes Jonatan Eason Dose Unknown 2022-0 7-29 00:00: 00 No Dose Unknown 2022-0 7-29 00:00: 00 No Dose Unknown 2022-0 7-29 00:00: 00 No Dose Unknown 2022-0 7-29 00:00: 00 No Dose Unknown 2022-0 7-29 00:00: 00 No Dose Unknown 2022-0 7-29 00:00: 00 Yes Jonatan Eason TAKE 1 TABLET DAILY. 12-05 00:00: 00 No 88 TAKE 1 TABLET DAILY. 12-05 00:00: 00 No 88 TAKE 1 TABLET DAILY. 12-05 00:00: 00 No 88 TAKE 1 TABLET DAILY. 12-05 00:00: 00 No 88 TAKE 1 TABLET DAILY. 12-05 00:00: 00 No 88 TAKE 1 TABLET DAILY. 12-05 00:00: 00 Yes 88 Jonatan Eason TAKE 1 TABLET DAILY. 11-21 00:00: 00 No 100 TAKE 1 TABLET DAILY. 11-21 00:00: 00 No 100 TAKE 1 TABLET DAILY. 11-21 00:00: 00 No 100 TAKE 1 TABLET DAILY. 11-21 00:00: 00 No 100 TAKE 1 TABLET DAILY. 11-21 00:00: 00 No 100 TAKE 1 TABLET DAILY. 11-21 00:00: 00 No 100 TAKE 1 TABLET DAILY. 11-21 00:00: 00 Yes 100 Jonatan Eason Dose Unknown 08-22 00:00: 00 No Dose Unknown 08-22 00:00: 00 No levothyroxi ne 100 mcg tablet 08-22 00:00: 00 No 1mcg Dose Unknown 08-22 00:00: 00 No Dose Unknown 08-22 00:00: 00 No Dose Unknown 08-22 00:00: 00 No levothyroxi ne 100 mcg tablet 08-22 00:00: 00 Yes 1mcg Jonatan Eason TAKE 1 TABLET BY MOUTH ONCE DAILY 08-22 00:00: 00 Yes Jonatan Eason Dose Unknown 08-22 00:00: 00 Yes 100 Jonatan Eason atorvastati n 40 mg tablet 06-02 00:00: 00 No 1mg Dose Unknown 06-02 00:00: 00 No atorvastati n 40 mg tablet 06-02 00:00: 00 No 1mg Dose Unknown 06-02 00:00: 00 No atorvastati n 40 mg tablet 06-02 00:00: 00 No 1mg levothyroxi ne 100 mcg tablet 06-02 00:00: 00 No 1mcg atorvastati n 40 mg tablet 06-02 00:00: 00 No 1mg Dose Unknown 06-02 00:00: 00 No atorvastati n 40 mg tablet 06-02 00:00: 00 No 1mg Dose Unknown 06-02 00:00: 00 No atorvastati n 40 mg tablet 06-02 00:00: 00 No 1mg Dose Unknown 06-02 00:00: 00 No atorvastati n 40 mg tablet 06-02 00:00: 00 Yes 1mg Jonatan Eason levothyroxi ne 100 mcg tablet 06-02 00:00: 00 Yes 1mcg Jonatan Eason ferrous sulfate (IRON, FERROUS SULFATE,) 325 mg (65 mg iron) tablet 2020-05 00:00: 00 Yes [id number] 325mg Take 1 tablet by mouth every other day. [facility] docusate sodium 250 mg capsule 2020-05 00:00: 00 Yes [id number] 250mg Take 1 capsule by mouth daily. [facility] levothyroxi ne 100 mcg tablet 2020-05 00:00: 00 No 1mcg levothyroxi ne 100 mcg tablet 2020-05 00:00: 00 No 1mcg levothyroxi ne 100 mcg tablet 2020-05 00:00: 00 No 1mcg levothyroxi ne 100 mcg tablet 2020-05 00:00: 00 No 1mcg levothyroxi ne 100 mcg tablet 2020-05 00:00: 00 No 1mcg levothyroxi ne 100 mcg tablet 2020-05 00:00: 00 No 1mcg levothyroxi ne 100 mcg tablet 2020-05 0 00:00: 00 Yes 1mcg Jonatan Elisabeth Eason Dose Unknown 12-21 00:00: 00 No Dose Unknown 12-21 00:00: 00 No levothyroxi ne 112 mcg tablet 12-21 00:00: 00 No 1mcg Dose Unknown 12-21 00:00: 00 No Dose Unknown 12-21 00:00: 00 No Dose Unknown 12-21 00:00: 00 No levothyroxi ne 112 mcg tablet 12-21 00:00: 00 Yes 1mcg Jonatan Eason lisinopril 20 mg-hydrochl orothiazide 25 mg tablet 12-20 00:00: 00 No 1mg atorvastati n 40 mg tablet 12-20 00:00: 00 No 1mg ferrous sulfate 325 mg (65 mg iron) tablet 12-20 00:00: 00 No 1(65 mg iron) TAKE 1 TABLET DAILY. 12-20 00:00: 00 No atorvastati n 40 mg tablet 12-20 00:00: 00 No 1mg Dose Unknown 12-20 00:00: 00 No lisinopril 20 mg-hydrochl orothiazide 25 mg tablet 12-20 00:00: 00 No 1mg atorvastati n 40 mg tablet 12-20 00:00: 00 No 1mg ferrous sulfate 325 mg (65 mg iron) tablet 12-20 00:00: 00 No 1(65 mg iron) lisinopril 20 mg-hydrochl orothiazide 25 mg tablet 12-20 00:00: 00 No 1mg atorvastati n 40 mg tablet 12-20 00:00: 00 No 1mg ferrous sulfate 325 mg (65 mg iron) tablet 12-20 00:00: 00 No 1(65 mg iron) lisinopril 20 mg-hydrochl orothiazide 25 mg tablet 12-20 00:00: 00 No 1mg atorvastati n 40 mg tablet 12-20 00:00: 00 No 1mg ferrous sulfate 325 mg (65 mg iron) tablet 12-20 00:00: 00 No 1(65 mg iron) lisinopril 20 mg-hydrochl orothiazide 25 mg tablet 12-20 00:00: 00 No 1mg atorvastati n 40 mg tablet 12-20 00:00: 00 No 1mg ferrous sulfate 325 mg (65 mg iron) tablet 12-20 00:00: 00 No 1(65 mg iron) lisinopril 20 mg-hydrochl orothiazide 25 mg tablet 12-20 00:00: 00 Yes 1mg Jonatan Eason atorvastati n 40 mg tablet 12-20 00:00: 00 Yes 1mg Jonatan Eason ferrous sulfate 325 mg (65 mg iron) tablet 12-20 00:00: 00 Yes 1(65 mg iron) Jonatan Eason lisinopril 20 mg-hydrochl orothiazide 25 mg tablet 09-09 00:00: 00 No 1mg ferrous sulfate 325 mg (65 mg iron) tablet 09-09 00:00: 00 No 1(65 mg iron) levothyroxi ne 125 mcg tablet 09-09 00:00: 00 No 1mcg lisinopril 20 mg-hydrochl orothiazide 25 mg tablet 09-09 00:00: 00 No 1mg ferrous sulfate 325 mg (65 mg iron) tablet 09-09 00:00: 00 No 1(65 mg iron) levothyroxi ne 125 mcg tablet 09-09 00:00: 00 No 1mcg lisinopril 20 mg-hydrochl orothiazide 25 mg tablet 09-09 00:00: 00 No 1mg ferrous sulfate 325 mg (65 mg iron) tablet 09-09 00:00: 00 No 1(65 mg iron) levothyroxi ne 125 mcg tablet 09-09 00:00: 00 No 1mcg lisinopril 20 mg-hydrochl orothiazide 25 mg tablet 09-09 00:00: 00 No 1mg ferrous sulfate 325 mg (65 mg iron) tablet 09-09 00:00: 00 No 1(65 mg iron) levothyroxi ne 125 mcg tablet 09-09 00:00: 00 No 1mcg lisinopril 20 mg-hydrochl orothiazide 25 mg tablet 09-09 00:00: 00 No 1mg ferrous sulfate 325 mg (65 mg iron) tablet 09-09 00:00: 00 No 1(65 mg iron) levothyroxi ne 125 mcg tablet 09-09 00:00: 00 No 1mcg lisinopril 20 mg-hydrochl orothiazide 25 mg tablet 09-09 00:00: 00 No 1mg ferrous sulfate 325 mg (65 mg iron) tablet 09-09 00:00: 00 No 1(65 mg iron) levothyroxi ne 125 mcg tablet 09-09 00:00: 00 No 1mcg lisinopril 20 mg-hydrochl orothiazide 25 mg tablet 09-09 00:00: 00 Yes 1mg Jonatan Eason ferrous sulfate 325 mg (65 mg iron) tablet 09-09 00:00: 00 Yes 1(65 mg iron) Jonatan Eason levothyroxi ne 125 mcg tablet 09-09 00:00: 00 Yes 1mcg Jonatan Eason lisinopril 20 mg-hydrochl orothiazide 25 mg tablet 2019-05 00:00: 00 No 1mg ferrous sulfate 325 mg (65 mg iron) tablet 2019-05 00:00: 00 No 1(65 mg iron) lisinopril 20 mg-hydrochl orothiazide 25 mg tablet 2019-05 00:00: 00 No 1mg ferrous sulfate 325 mg (65 mg iron) tablet 2019-05 00:00: 00 No 1(65 mg iron) lisinopril 20 mg-hydrochl orothiazide 25 mg tablet 2019-05 00:00: 00 No 1mg ferrous sulfate 325 mg (65 mg iron) tablet 2019-05 00:00: 00 No 1(65 mg iron) lisinopril 20 mg-hydrochl orothiazide 25 mg tablet 2019-05 00:00: 00 No 1mg ferrous sulfate 325 mg (65 mg iron) tablet 2019-05 00:00: 00 No 1(65 mg iron) lisinopril 20 mg-hydrochl orothiazide 25 mg tablet 2019-05 00:00: 00 No 1mg ferrous sulfate 325 mg (65 mg iron) tablet 2019-05 00:00: 00 No 1(65 mg iron) lisinopril 20 mg-hydrochl orothiazide 25 mg tablet 2019-05 00:00: 00 No 1mg ferrous sulfate 325 mg (65 mg iron) tablet 2019-05 00:00: 00 No 1(65 mg iron) lisinopril 20 mg-hydrochl orothiazide 25 mg tablet 2019-05 00:00: 00 Yes 1mg Jonatan Barber Jenaro ferrous sulfate 325 mg (65 mg iron) tablet 2019-05 00:00: 00 Yes 1(65 mg iron) Jonatan Barber Jenaro lisinopril 20 mg-hydrochl orothiazide 25 mg tablet 2019-05 00:00: 00 No 1mg ferrous sulfate 325 mg (65 mg iron) tablet 2019-05 00:00: 00 No 1(65 mg iron) levothyroxi ne 125 mcg tablet 2019-05 00:00: 00 No 1mcg lisinopril 20 mg-hydrochl orothiazide 25 mg tablet 2019-05 00:00: 00 No 1mg ferrous sulfate 325 mg (65 mg iron) tablet 2019-05 00:00: 00 No 1(65 mg iron) levothyroxi ne 125 mcg tablet 2019-05 00:00: 00 No 1mcg lisinopril 20 mg-hydrochl orothiazide 25 mg tablet 2019-05 00:00: 00 No 1mg ferrous sulfate 325 mg (65 mg iron) tablet 2019-05 00:00: 00 No 1(65 mg iron) levothyroxi ne 125 mcg tablet 2019-05 00:00: 00 No 1mcg lisinopril 20 mg-hydrochl orothiazide 25 mg tablet 2019-05 00:00: 00 No 1mg ferrous sulfate 325 mg (65 mg iron) tablet 2019-05 00:00: 00 No 1(65 mg iron) levothyroxi ne 125 mcg tablet 2019-05 00:00: 00 No 1mcg lisinopril 20 mg-hydrochl orothiazide 25 mg tablet 2019-05 00:00: 00 No 1mg ferrous sulfate 325 mg (65 mg iron) tablet 2019-05 00:00: 00 No 1(65 mg iron) levothyroxi ne 125 mcg tablet 2019-05 00:00: 00 No 1mcg lisinopril 20 mg-hydrochl orothiazide 25 mg tablet 2019-05 00:00: 00 No 1mg ferrous sulfate 325 mg (65 mg iron) tablet 2019-05 00:00: 00 No 1(65 mg iron) levothyroxi ne 125 mcg tablet 2019-05 00:00: 00 No 1mcg lisinopril 20 mg-hydrochl orothiazide 25 mg tablet 2019-05 00:00: 00 Yes 1mg Jonatan Eason ferrous sulfate 325 mg (65 mg iron) tablet 2019-05 00:00: 00 Yes 1(65 mg iron) Jonatan Eason levothyroxi ne 125 mcg tablet 2019-05 00:00: 00 Yes 1mcg Jonatan Eason dibucaine (HEMORRHOID AL-ANALGESI C) 1 % ointment 2019-05 00:00: 00 Yes [id number] Apply to area(s) 3 (three) times daily as needed for Pain. [facility] levothyroxi ne 125 mcg tablet 2019-05 00:00: 00 No 1mcg levothyroxi ne 125 mcg tablet 2019-05 00:00: 00 No 1mcg levothyroxi ne 125 mcg tablet 2019-05 00:00: 00 No 1mcg levothyroxi ne 125 mcg tablet 2019-05 00:00: 00 No 1mcg levothyroxi ne 125 mcg tablet 2019-05 00:00: 00 No 1mcg levothyroxi ne 125 mcg tablet 2019-05 00:00: 00 No 1mcg levothyroxi ne 125 mcg tablet 2019-05 00:00: 00 Yes 1mcg Jonatan Eason hydrochloro thiazide 25 mg tablet 2019-05 00:00: 00 No 1mg hydrochloro thiazide 25 mg tablet 2019-05 00:00: 00 No 1mg hydrochloro thiazide 25 mg tablet 2019-05 00:00: 00 No 1mg hydrochloro thiazide 25 mg tablet 2019-05 00:00: 00 No 1mg hydrochloro thiazide 25 mg tablet 2019-05 00:00: 00 No 1mg hydrochloro thiazide 25 mg tablet 2019-05 00:00: 00 No 1mg hydrochloro thiazide 25 mg tablet 2019-05 00:00: 00 Yes 1mg Jonatan Elisabeth Jenaro levothyroxi ne 125 mcg tablet 11-18 00:00: 00 No 1mcg levothyroxi ne 125 mcg tablet 11-18 00:00: 00 No 1mcg levothyroxi ne 125 mcg tablet 11-18 00:00: 00 No 1mcg levothyroxi ne 125 mcg tablet 11-18 00:00: 00 No 1mcg levothyroxi ne 125 mcg tablet 0 11-18 00:00: 00 No 1mcg levothyroxi ne 125 mcg tablet 0 11-18 00:00: 00 No 1mcg levothyroxi ne 125 mcg tablet 11-18 00:00: 00 Yes 1mcg Jonatan Elisabeth Jenaro levothyroxi ne 125 mcg tablet 0 11-06 00:00: 00 No 1mcg levothyroxi ne 125 mcg tablet 0 11-06 00:00: 00 No 1mcg levothyroxi ne 125 mcg tablet 0 11-06 00:00: 00 No 1mcg levothyroxi ne 125 mcg tablet 0 11-06 00:00: 00 No 1mcg levothyroxi ne 125 mcg tablet 11-06 00:00: 00 No 1mcg levothyroxi ne 125 mcg tablet 11-06 00:00: 00 No 1mcg levothyroxi ne 125 mcg tablet 11-06 00:00: 00 Yes 1mcg Jonatan Elisabeth Jenaro levothyroxi ne 112 mcg tablet 0 11-04 00:00: 00 No 1mcg levothyroxi ne 112 mcg tablet 0 11-04 00:00: 00 No 1mcg levothyroxi ne 112 mcg tablet 11-04 00:00: 00 No 1mcg levothyroxi ne 112 mcg tablet 11-04 00:00: 00 No 1mcg levothyroxi ne 112 mcg tablet 11-04 00:00: 00 No 1mcg levothyroxi ne 112 mcg tablet 11-04 00:00: 00 No 1mcg levothyroxi ne 112 mcg tablet 11-04 00:00: 00 Yes 1mcg Jonatan Elisabeth Jenaro levothyroxi ne 112 mcg tablet 2018-05 00:00: 00 No 1mcg levothyroxi ne 112 mcg tablet 2018-05 00:00: 00 No 1mcg levothyroxi ne 112 mcg tablet 2018-05 00:00: 00 No 1mcg levothyroxi ne 112 mcg tablet 2018-05 00:00: 00 No 1mcg levothyroxi ne 112 mcg tablet 2018-05 00:00: 00 No 1mcg levothyroxi ne 112 mcg tablet 2018-05 00:00: 00 No 1mcg levothyroxi ne 112 mcg tablet 2018-05 00:00: 00 Yes 1mcg Jonatan Elisabeth Eason levothyroxi ne 112 mcg tablet 2018-05 00:00: 00 No 1mcg levothyroxi ne 112 mcg tablet 2018-05 00:00: 00 No 1mcg levothyroxi ne 112 mcg tablet 2018-05 00:00: 00 No 1mcg levothyroxi ne 112 mcg tablet 2018-05 00:00: 00 No 1mcg levothyroxi ne 112 mcg tablet 2018-05 00:00: 00 No 1mcg levothyroxi ne 112 mcg tablet 2018-05 00:00: 00 No 1mcg levothyroxi ne 112 mcg tablet 2018-05 00:00: 00 Yes 1mcg Jonatan Elisabeth Jenaro levothyroxi ne 112 mcg tablet 12-03 00:00: 00 No 1mcg levothyroxi ne 112 mcg tablet 12-03 00:00: 00 No 1mcg levothyroxi ne 112 mcg tablet 12-03 00:00: 00 No 1mcg levothyroxi ne 112 mcg tablet 12-03 00:00: 00 No 1mcg levothyroxi ne 112 mcg tablet 12-03 00:00: 00 No 1mcg levothyroxi ne 112 mcg tablet 12-03 00:00: 00 No 1mcg levothyroxi ne 112 mcg tablet 12-03 00:00: 00 Yes 1mcg Jonatan Eason levothyroxi ne 112 mcg tablet 07-17 00:00: 00 No 1mcg levothyroxi ne 112 mcg tablet 07-17 00:00: 00 No 1mcg levothyroxi ne 112 mcg tablet 07-17 00:00: 00 No 1mcg levothyroxi ne 112 mcg tablet 07-17 00:00: 00 No 1mcg levothyroxi ne 112 mcg tablet 07-17 00:00: 00 No 1mcg levothyroxi ne 112 mcg tablet 07-17 00:00: 00 No 1mcg levothyroxi ne 112 mcg tablet 07-17 00:00: 00 Yes 1mcg Jonatan Eason levothyroxi ne 112 mcg tablet 05-15 00:00: 00 No 1mcg levothyroxi ne 112 mcg tablet 05-15 00:00: 00 No 1mcg levothyroxi ne 112 mcg tablet 05-15 00:00: 00 No 1mcg levothyroxi ne 112 mcg tablet 05-15 00:00: 00 No 1mcg levothyroxi ne 112 mcg tablet 05-15 00:00: 00 No 1mcg levothyroxi ne 112 mcg tablet 05-15 00:00: 00 No 1mcg levothyroxi ne 112 mcg tablet 05-15 00:00: 00 Yes 1mcg Jonatan Eason levothyroxi ne 112 mcg tablet 2017-05 00:00: 00 No 1mcg levothyroxi ne 112 mcg tablet 2017-05 00:00: 00 No 1mcg levothyroxi ne 112 mcg tablet 2017-05 00:00: 00 No 1mcg levothyroxi ne 112 mcg tablet 2017-05 00:00: 00 No 1mcg levothyroxi ne 112 mcg tablet 2017-05 00:00: 00 No 1mcg levothyroxi ne 112 mcg tablet 2017-05 00:00: 00 No 1mcg levothyroxi ne 112 mcg tablet 2017-05 00:00: 00 Yes 1mcg Jonatan Eason levothyroxi ne 112 mcg tablet 11-23 00:00: 00 No 1mcg levothyroxi ne 112 mcg tablet 11-23 00:00: 00 No 1mcg levothyroxi ne 112 mcg tablet 11-23 00:00: 00 No 1mcg levothyroxi ne 112 mcg tablet 11-23 00:00: 00 No 1mcg levothyroxi ne 112 mcg tablet 11-23 00:00: 00 No 1mcg levothyroxi ne 112 mcg tablet 11-23 00:00: 00 No 1mcg levothyroxi ne 112 mcg tablet 11-23 00:00: 00 Yes 1mcg Jonatan Eason levothyroxi ne 112 mcg tablet 11-05 00:00: 00 No 1mcg levothyroxi ne 112 mcg tablet 11-05 00:00: 00 No 1mcg levothyroxi ne 112 mcg tablet 11-05 00:00: 00 No 1mcg levothyroxi ne 112 mcg tablet 11-05 00:00: 00 No 1mcg levothyroxi ne 112 mcg tablet 11-05 00:00: 00 No 1mcg levothyroxi ne 112 mcg tablet 11-05 00:00: 00 No 1mcg levothyroxi ne 112 mcg tablet 11-05 00:00: 00 Yes 1mcg Jonatan Eason levothyroxi ne 112 mcg tablet 07-20 00:00: 00 No 1mcg levothyroxi ne 112 mcg tablet 07-20 00:00: 00 No 1mcg levothyroxi ne 112 mcg tablet 07-20 00:00: 00 No 1mcg levothyroxi ne 112 mcg tablet 07-20 00:00: 00 No 1mcg levothyroxi ne 112 mcg tablet 07-20 00:00: 00 No 1mcg levothyroxi ne 112 mcg tablet 07-20 00:00: 00 No 1mcg levothyroxi ne 112 mcg tablet 07-20 00:00: 00 Yes 1mcg Jonatan Elisabeth Jenaro levothyroxi ne 112 mcg tablet 06-14 00:00: 00 No 1mcg levothyroxi ne 112 mcg tablet 06-14 00:00: 00 No 1mcg levothyroxi ne 112 mcg tablet 06-14 00:00: 00 No 1mcg levothyroxi ne 112 mcg tablet 06-14 00:00: 00 No 1mcg levothyroxi ne 112 mcg tablet 06-14 00:00: 00 No 1mcg levothyroxi ne 112 mcg tablet 06-14 00:00: 00 No 1mcg levothyroxi ne 112 mcg tablet 06-14 00:00: 00 Yes 1mcg Jonatan Elisabeth Jenaro levothyroxi ne 100 mcg tablet 06-01 00:00: 00 No 1mcg levothyroxi ne 100 mcg tablet 06-01 00:00: 00 No 1mcg levothyroxi ne 100 mcg tablet 06-01 00:00: 00 No 1mcg levothyroxi ne 100 mcg tablet 06-01 00:00: 00 No 1mcg levothyroxi ne 100 mcg tablet 06-01 00:00: 00 No 1mcg levothyroxi ne 100 mcg tablet 06-01 00:00: 00 No 1mcg levothyroxi ne 100 mcg tablet 06-01 00:00: 00 Yes 1mcg Jonatan Elisabeth Jnearo lovastatin 20 mg tablet 05-29 00:00: 00 No 1mg levothyroxi ne 100 mcg tablet 05-29 00:00: 00 No 1mcg lovastatin 20 mg tablet 05-29 00:00: 00 No 1mg levothyroxi ne 100 mcg tablet 05-29 00:00: 00 No 1mcg lovastatin 20 mg tablet 05-29 00:00: 00 No 1mg levothyroxi ne 100 mcg tablet 05-29 00:00: 00 No 1mcg lovastatin 20 mg tablet 05-29 00:00: 00 No 1mg levothyroxi ne 100 mcg tablet 05-29 00:00: 00 No 1mcg lovastatin 20 mg tablet 05-29 00:00: 00 No 1mg levothyroxi ne 100 mcg tablet 05-29 00:00: 00 No 1mcg lovastatin 20 mg tablet 05-29 00:00: 00 No 1mg levothyroxi ne 100 mcg tablet 05-29 00:00: 00 No 1mcg lovastatin 20 mg tablet 05-29 00:00: 00 Yes 1mg Jonatan Elisabeth Jenaro levothyroxi ne 100 mcg tablet 05-29 00:00: 00 Yes 1mcg Jonatan Eason lovastatin 20 mg tablet 2016-05 00:00: 00 No 1mg levothyroxi ne 100 mcg tablet 2016-05 00:00: 00 No 1mcg lovastatin 20 mg tablet 2016-05 00:00: 00 No 1mg levothyroxi ne 100 mcg tablet 2016-05 00:00: 00 No 1mcg lovastatin 20 mg tablet 2016-05 00:00: 00 No 1mg levothyroxi ne 100 mcg tablet 2016-05 00:00: 00 No 1mcg lovastatin 20 mg tablet 2016-05 00:00: 00 No 1mg levothyroxi ne 100 mcg tablet 2016-05 00:00: 00 No 1mcg lovastatin 20 mg tablet 2016-05 00:00: 00 No 1mg levothyroxi ne 100 mcg tablet 2016-05 00:00: 00 No 1mcg lovastatin 20 mg tablet 2016-05 00:00: 00 No 1mg levothyroxi ne 100 mcg tablet 2016-05 00:00: 00 No 1mcg lovastatin 20 mg tablet 2016-05 00:00: 00 Yes 1mg Jonatan Eason levothyroxi ne 100 mcg tablet 2016-05 00:00: 00 Yes 1mcg Jonatan Eason lovastatin 20 mg tablet 11-02 00:00: 00 No 1mg levothyroxi ne 100 mcg tablet 11-02 00:00: 00 No 1mcg lovastatin 20 mg tablet 11-02 00:00: 00 No 1mg levothyroxi ne 100 mcg tablet 11-02 00:00: 00 No 1mcg lovastatin 20 mg tablet 11-02 00:00: 00 No 1mg levothyroxi ne 100 mcg tablet 11-02 00:00: 00 No 1mcg lovastatin 20 mg tablet 11-02 00:00: 00 No 1mg levothyroxi ne 100 mcg tablet 11-02 00:00: 00 No 1mcg lovastatin 20 mg tablet 11-02 00:00: 00 No 1mg levothyroxi ne 100 mcg tablet 11-02 00:00: 00 No 1mcg lovastatin 20 mg tablet 11-02 00:00: 00 No 1mg levothyroxi ne 100 mcg tablet 11-02 00:00: 00 No 1mcg lovastatin 20 mg tablet 11-02 00:00: 00 Yes 1mg Jonatan Eason levothyroxi ne 100 mcg tablet 11-02 00:00: 00 Yes 1mcg Jonatan Eason levothyroxi ne (SYNTHROID) 125 mcg tablet 2015-05 00:00: 00 Yes TAKE 1 TABLET BY MOUTH EVERY MORNING [facility] Immunizations Ordered Immunization Name Filled Immunization Name Date Status Comments Source SHINGRIX VACCINE SHINGRIX VACCINE 2023-02-28 00:00:00 Completed Jonatan Eason Influenza, injectable, Madin Dawn Canine Kidney, preservative-free, quadrivalent 2022-02-13 00:00:00 Completed Influenza, injectable, Madin Glo Canine Kidney, preservative-free, quadrivalent 2022-02-13 00:00:00 Completed Influenza, injectable, Madin Dawn Canine Kidney, preservative-free, quadrivalent 2022-02-13 00:00:00 Completed Influenza, injectable, Madin Dawn Canine Kidney, preservative-free, quadrivalent 2022-02-13 00:00:00 Completed Influenza, injectable, Madin Dawn Canine Kidney, preservative-free, quadrivalent Influenza, injectable, Madin Glo Canine Kidney, preservative-free, quadrivalent 2022-02-13 00:00:00 Completed Jonatan Eason SHINGRIX VACCINE 2021-02-28 00:00:00 Completed Pneumococcal conjugate P 2021-02-28 00:00:00 Completed SHINGRIX VACCINE 2021-02-28 00:00:00 Completed Pneumococcal conjugate P 2021-02-28 00:00:00 Completed SHINGRIX VACCINE 2021-02-28 00:00:00 Completed Pneumococcal conjugate P 2021-02-28 00:00:00 Completed SHINGRIX VACCINE 2021-02-28 00:00:00 Completed Pneumococcal conjugate P 2021-02-28 00:00:00 Completed SHINGRIX VACCINE 2021-02-28 00:00:00 Completed Pneumococcal conjugate P 2021-02-28 00:00:00 Completed SHINGRIX VACCINE 2021-02-28 00:00:00 Completed Pneumococcal conjugate P 2021-02-28 00:00:00 Completed SHINGRIX VACCINE 2021-02-28 00:00:00 Completed Pneumococcal conjugate P 2021-02-28 00:00:00 Completed SHINGRIX VACCINE SHINGRIX VACCINE 2021-02-28 00:00:00 Completed Jonatan Eason Pneumococcal conjugate P Pneumococcal conjugate P 2021-02-28 00:00:00 Completed Jonatan Eason SARS-COV-2 COVID-19 PFIZER VACCINE 2020-08-31 00:00:00 Completed [facility] SARS-COV-2 COVID-19 PFIZER VACCINE 2020-08-31 00:00:00 Completed [facility] SARS-COV-2 COVID-19 PFIZER VACCINE 2020-08-31 00:00:00 Completed [facility] SARS-COV-2 COVID-19 PFIZER VACCINE 2020-08-31 00:00:00 Completed [facility] SARS-COV-2 COVID-19 PFIZER VACCINE 2020-08-31 00:00:00 Completed [facility] SARS-COV-2 COVID-19 PFIZER VACCINE 2020-08-31 00:00:00 Completed [facility] SARS-COV-2 COVID-19 PFIZER VACCINE 2020-08-31 00:00:00 Completed [facility] SARS-COV-2 COVID-19 PFIZER VACCINE 2020-08-31 00:00:00 Completed [facility] SARS-COV-2 COVID-19 PFIZER VACCINE 2020-08-31 00:00:00 Completed [facility] SARS-COV-2 COVID-19 PFIZER VACCINE 2020-08-31 00:00:00 Completed [facility] SARS-COV-2 COVID-19 PFIZER VACCINE 2020-08-31 00:00:00 Completed [facility] SARS-COV-2 COVID-19 PFIZER VACCINE 2020-08-31 00:00:00 Completed [facility] SARS-COV-2 COVID-19 PFIZER VACCINE 2020-08-31 00:00:00 Completed [facility] SARS-COV-2 COVID-19 PFIZER VACCINE 2020-08-31 00:00:00 Completed [facility] SARS-COV-2 COVID-19 PFIZER VACCINE 2020-08-31 00:00:00 Completed [facility] SARS-COV-2 COVID-19 PFIZER VACCINE 2020-08-31 00:00:00 Completed [facility] SARS-COV-2 COVID-19 PFIZER VACCINE 2020-08-31 00:00:00 Completed [facility] SARS-COV-2 COVID-19 PFIZER VACCINE 2020-08-31 00:00:00 Completed [facility] SARS-COV-2 COVID-19 PFIZER VACCINE 2020-08-31 00:00:00 Completed [facility] SARS-COV-2 COVID-19 PFIZER VACCINE 2020-08-31 00:00:00 Completed [facility] SARS-COV-2 COVID-19 PFIZER VACCINE 2020-08-31 00:00:00 Completed [facility] SARS-COV-2 COVID-19 PFIZER VACCINE 2020-08-31 00:00:00 Completed [facility] SARS-COV-2 COVID-19 PFIZER VACCINE 2020-08-31 00:00:00 Completed [facility] SARS-COV-2 COVID-19 PFIZER VACCINE 2020-08-31 00:00:00 Completed [facility] SARS-COV-2 COVID-19 PFIZER VACCINE 2020-08-31 00:00:00 Completed [facility] SARS-COV-2 COVID-19 PFIZER VACCINE 2020-08-31 00:00:00 Completed [facility] SARS-COV-2 COVID-19 PFIZER VACCINE 2020-08-31 00:00:00 Completed [facility] SARS-COV-2 COVID-19 PFIZER VACCINE 2020-08-31 00:00:00 Completed [facility] SARS-COV-2 COVID-19 PFIZER VACCINE 2020-08-31 00:00:00 Completed [facility] SARS-COV-2 COVID-19 PFIZER VACCINE 2020-08-31 00:00:00 Completed [facility] SARS-COV-2 COVID-19 PFIZER VACCINE 2020-08-31 00:00:00 Completed [facility] SARS-COV-2 COVID-19 PFIZER VACCINE 2020-08-10 00:00:00 Completed [facility] SARS-COV-2 COVID-19 PFIZER VACCINE 2020-08-10 00:00:00 Completed [facility] SARS-COV-2 COVID-19 PFIZER VACCINE 2020-08-10 00:00:00 Completed [facility] SARS-COV-2 COVID-19 PFIZER VACCINE 2020-08-10 00:00:00 Completed [facility] SARS-COV-2 COVID-19 PFIZER VACCINE 2020-08-10 00:00:00 Completed [facility] SARS-COV-2 COVID-19 PFIZER VACCINE 2020-08-10 00:00:00 Completed [facility] SARS-COV-2 COVID-19 PFIZER VACCINE 2020-08-10 00:00:00 Completed [facility] SARS-COV-2 COVID-19 PFIZER VACCINE 2020-08-10 00:00:00 Completed [facility] SARS-COV-2 COVID-19 PFIZER VACCINE 2020-08-10 00:00:00 Completed [facility] SARS-COV-2 COVID-19 PFIZER VACCINE 2020-08-10 00:00:00 Completed [facility] SARS-COV-2 COVID-19 PFIZER VACCINE 2020-08-10 00:00:00 Completed [facility] SARS-COV-2 COVID-19 PFIZER VACCINE 2020-08-10 00:00:00 Completed [facility] SARS-COV-2 COVID-19 PFIZER VACCINE 2020-08-10 00:00:00 Completed [facility] SARS-COV-2 COVID-19 PFIZER VACCINE 2020-08-10 00:00:00 Completed [facility] SARS-COV-2 COVID-19 PFIZER VACCINE 2020-08-10 00:00:00 Completed [facility] SARS-COV-2 COVID-19 PFIZER VACCINE 2020-08-10 00:00:00 Completed [facility] SARS-COV-2 COVID-19 PFIZER VACCINE 2020-08-10 00:00:00 Completed [facility] SARS-COV-2 COVID-19 PFIZER VACCINE 2020-08-10 00:00:00 Completed [facility] SARS-COV-2 COVID-19 PFIZER VACCINE 2020-08-10 00:00:00 Completed [facility] SARS-COV-2 COVID-19 PFIZER VACCINE 2020-08-10 00:00:00 Completed [facility] SARS-COV-2 COVID-19 PFIZER VACCINE 2020-08-10 00:00:00 Completed [facility] SARS-COV-2 COVID-19 PFIZER VACCINE 2020-08-10 00:00:00 Completed [facility] SARS-COV-2 COVID-19 PFIZER VACCINE 2020-08-10 00:00:00 Completed [facility] SARS-COV-2 COVID-19 PFIZER VACCINE 2020-08-10 00:00:00 Completed [facility] SARS-COV-2 COVID-19 PFIZER VACCINE 2020-08-10 00:00:00 Completed [facility] SARS-COV-2 COVID-19 PFIZER VACCINE 2020-08-10 00:00:00 Completed [facility] SARS-COV-2 COVID-19 PFIZER VACCINE 2020-08-10 00:00:00 Completed [facility] SARS-COV-2 COVID-19 PFIZER VACCINE 2020-08-10 00:00:00 Completed [facility] SARS-COV-2 COVID-19 PFIZER VACCINE 2020-08-10 00:00:00 Completed [facility] SARS-COV-2 COVID-19 PFIZER VACCINE 2020-08-10 00:00:00 Completed [facility] SARS-COV-2 COVID-19 PFIZER VACCINE 2020-08-10 00:00:00 Completed [facility] Influenza, seasonal, inj 2020-03-22 00:00:00 Completed Influenza, seasonal, inj 2020-03-22 00:00:00 Completed Influenza, seasonal, inj 2020-03-22 00:00:00 Completed Influenza, seasonal, inj 2020-03-22 00:00:00 Completed Influenza, seasonal, inj 2020-03-22 00:00:00 Completed Influenza, seasonal, inj 2020-03-22 00:00:00 Completed Influenza, seasonal, inj 2020-03-22 00:00:00 Completed Influenza, seasonal, inj Influenza, seasonal, inj 2020-03-22 00:00:00 Completed Jonatan Eason Hep A, adult 2019-06-11 00:00:00 Completed Hep B, adult 2019-06-11 00:00:00 Completed Hep A, adult 2019-06-11 00:00:00 Completed Hep B, adult 2019-06-11 00:00:00 Completed Hep A, adult 2019-06-11 00:00:00 Completed Hep B, adult 2019-06-11 00:00:00 Completed Hep A, adult 2019-06-11 00:00:00 Completed Hep B, adult 2019-06-11 00:00:00 Completed Hep A, adult 2019-06-11 00:00:00 Completed Hep B, adult 2019-06-11 00:00:00 Completed Hep A, adult 2019-06-11 00:00:00 Completed Hep B, adult 2019-06-11 00:00:00 Completed Hep A, adult 2019-06-11 00:00:00 Completed Hep B, adult 2019-06-11 00:00:00 Completed Hep A, adult Hep A, adult 2019-06-11 00:00:00 Completed Jonatan Eason Hep B, adult Hep B, adult 2019-06-11 00:00:00 Completed Jonatan Eason Hep B, adult 2019-01-08 00:00:00 Completed zoster 2019-01-08 00:00:00 Completed Hep B, adult 2019-01-08 00:00:00 Completed zoster 2019-01-08 00:00:00 Completed Hep B, adult 2019-01-08 00:00:00 Completed zoster 2019-01-08 00:00:00 Completed Hep B, adult 2019-01-08 00:00:00 Completed zoster 2019-01-08 00:00:00 Completed Hep B, adult 2019-01-08 00:00:00 Completed zoster 2019-01-08 00:00:00 Completed Hep B, adult 2019-01-08 00:00:00 Completed zoster 2019-01-08 00:00:00 Completed Hep B, adult 2019-01-08 00:00:00 Completed zoster 2019-01-08 00:00:00 Completed Hep B, adult Hep B, adult 2019-01-08 00:00:00 Completed Jonatan Eason zoster zoster 2019-01-08 00:00:00 Completed Jonatan Eason Hep A, adult 2018-12-02 00:00:00 Completed Hep B, adult 2018-12-02 00:00:00 Completed Hep A, adult 2018-12-02 00:00:00 Completed Hep B, adult 2018-12-02 00:00:00 Completed Hep A, adult 2018-12-02 00:00:00 Completed Hep B, adult 2018-12-02 00:00:00 Completed Hep A, adult 2018-12-02 00:00:00 Completed Hep B, adult 2018-12-02 00:00:00 Completed Hep A, adult 2018-12-02 00:00:00 Completed Hep B, adult 2018-12-02 00:00:00 Completed Hep A, adult 2018-12-02 00:00:00 Completed Hep B, adult 2018-12-02 00:00:00 Completed Hep A, adult 2018-12-02 00:00:00 Completed Hep B, adult 2018-12-02 00:00:00 Completed Hep A, adult Hep A, adult 2018-12-02 00:00:00 Completed Jonatan Eason Hep B, adult Hep B, adult 2018-12-02 00:00:00 Completed Jonatan Eason Tdap 2017-11-21 00:00:00 Completed Tdap 2017-11-21 00:00:00 Completed Tdap 2017-11-21 00:00:00 Completed Tdap 2017-11-21 00:00:00 Completed Tdap 2017-11-21 00:00:00 Completed Tdap 2017-11-21 00:00:00 Completed Tdap 2017-11-21 00:00:00 Completed Tdap Tdap 2017-11-21 00:00:00 Completed Jonatan Eason TDAP 2014-09-16 00:00:00 Completed [facility] TDAP 2014-09-16 00:00:00 Completed [facility] TDAP 2014-09-16 00:00:00 Completed [facility] TDAP 2014-09-16 00:00:00 Completed [facility] TDAP 2014-09-16 00:00:00 Completed [facility] TDAP 2014-09-16 00:00:00 Completed [facility] TDAP 2014-09-16 00:00:00 Completed [facility] TDAP 2014-09-16 00:00:00 Completed [facility] TDAP 2014-09-16 00:00:00 Completed [facility] TDAP 2014-09-16 00:00:00 Completed [facility] TDAP 2014-09-16 00:00:00 Completed [facility] TDAP 2014-09-16 00:00:00 Completed [facility] TDAP 2014-09-16 00:00:00 Completed [facility] TDAP 2014-09-16 00:00:00 Completed [facility] TDAP 2014-09-16 00:00:[address] [facility] TDAP 2014-09-16 00:00:[address] [facility] TDAP 2014-09-16 00:00:[address] [facility] TDAP 2014-09-16 00:00:00 Completed [facility] TDAP 2014-09-16 00:00:00 Completed [facility] TDAP 2014-09-16 00:00:[address] [facility] TDAP 2014-09-16 00:00:[address] [facility] TDAP 2014-09-16 00:00:00 Completed [facility] TDAP 2014-09-16 00:00:00 Completed [facility] TDAP 2014-09-16 00:00:00 Completed [facility] TDAP 2014-09-16 00:00:00 Completed [facility] TDAP 2014-09-16 00:00:00 Completed [facility] TDAP 2014-09-16 00:00:00 Completed [facility] TDAP 2014-09-16 00:00:00 Completed [facility] TDAP 2014-09-16 00:00:00 Completed [facility] TDAP 2014-09-16 00:00:00 Completed [facility] TDAP 2014-09-16 00:00:00 Completed [facility] TD[facility] Unknown Completed [facility] SARS-COV-2 COVID-19 PFIZER VACCINE Unknown Completed [facility] TD[facility] Unknown Completed [facility] SARS-COV-2 COVID-19 PFIZER VACCINE Unknown Completed [facility] TD[facility] Unknown Completed [facility] SARS-COV-2 COVID-19 PFIZER VACCINE Unknown Completed [facility] TD[facility] Unknown Completed [facility] SARS-COV-2 COVID-19 PFIZER VACCINE Unknown Completed [facility] TDAP Unknown Completed [facility] SARS-COV-2 COVID-19 PFIZER VACCINE Unknown [facility] [facility] TDAP Unknown Completed [facility] SARS-COV-2 COVID-19 PFIZER VACCINE Unknown Completed [facility] TDAP Unknown Completed [facility] SARS-COV-2 COVID-19 PFIZER VACCINE Unknown Completed [facility] TDAP Unknown Completed [facility] SARS-COV-2 COVID-19 PFIZER VACCINE Unknown Completed [facility] TDAP Unknown Completed [facility] SARS-COV-2 COVID-19 PFIZER VACCINE Unknown Completed [facility] TDAP Unknown Completed [facility] SARS-COV-2 COVID-19 PFIZER VACCINE Unknown Completed [facility] TDAP Unknown Completed [facility] SARS-COV-2 COVID-19 PFIZER VACCINE Unknown Completed [facility] TDAP Unknown Completed [facility] SARS-COV-2 COVID-19 PFIZER VACCINE Unknown Completed [facility] TDAP Unknown Completed [facility] SARS-COV-2 COVID-19 PFIZER VACCINE Unknown Completed [facility] TDAP Unknown Completed [facility] SARS-COV-2 COVID-19 PFIZER VACCINE Unknown Completed [facility] TDAP Unknown Completed [facility] SARS-COV-2 COVID-19 PFIZER VACCINE Unknown Completed [facility] TDAP Unknown Completed [facility] SARS-COV-2 COVID-19 PFIZER VACCINE Unknown Completed [facility] TDAP Unknown Completed [facility] SARS-COV-2 COVID-19 PFIZER VACCINE Unknown Completed [facility] TDAP Unknown Completed [facility] SARS-COV-2 COVID-19 PFIZER VACCINE Unknown Completed [facility] TDAP Unknown Completed [facility] SARS-COV-2 COVID-19 PFIZER VACCINE Unknown Completed [facility] TDAP Unknown Completed [facility] SARS-COV-2 COVID-19 PFIZER VACCINE Unknown Completed [facility] TDAP Unknown Completed [facility] SARS-COV-2 COVID-19 PFIZER VACCINE Unknown Completed [facility] TDAP Unknown Completed [facility] SARS-COV-2 COVID-19 PFIZER VACCINE Unknown Completed [facility] TDAP Unknown Completed [facility] SARS-COV-2 COVID-19 PFIZER VACCINE Unknown Completed [facility] TDAP Unknown Completed [facility] SARS-COV-2 COVID-19 PFIZER VACCINE Unknown Completed [facility] TDAP Unknown Completed [facility] SARS-COV-2 COVID-19 PFIZER VACCINE Unknown Completed [facility] Vital Signs Vital Name Observation Time Observation Value Comments S ource Systolic blood pressure 2024-02-05 16:22:00 111 mm[Hg] [facility] Diastolic blood pressure 2024-02-05 16:22:00 66 mm[Hg] [facility] Heart rate 2024-02-05 16:22:00 74 /min [facility] Body temperature 2024-02-05 16:22:00 36.72 Jessica [facility] Respiratory rate 2024-02-05 16:22:00 16 /min [facility] Oxygen saturation in Arterial blood by Pulse oximetry 2024-02-05 16:22:00 98 /min [facility] Body weight 2024-02-04 09:00:00 77.5 kg [facility] BMI 2024-02-04 09:00:00 30.27 kg/m2 [facility] Body height 2024-02-03 09:26:00 160 cm [facility] Systolic blood pressure 2024-02-04 16:34:00 142 mm[Hg] reported to RN [facility] Diastolic blood pressure 2024-02-04 16:34:00 62 mm[Hg] reported to RN [facility] Heart rate 2024-02-04 16:34:00 83 /min [facility] Body temperature 2024-02-04 16:34:00 36.72 Jessica [facility] Respiratory rate 2024-02-04 16:34:00 18 /min [facility] Oxygen saturation in Arterial blood by Pulse oximetry 2024-02-04 16:34:00 99 /min [facility] Body weight 2024-02-04 09:00:00 77.5 kg [facility] BMI 2024-02-04 09:00:00 30.27 kg/m2 [facility] Body height 2024-02-03 09:26:00 160 cm [facility] Systolic blood pressure 2024-01-25 15:44:00 139 mm[Hg] [facility] Diastolic blood pressure 2024-01-25 15:44:00 61 mm[Hg] [facility] Heart rate 2024-01-25 15:44:00 69 /min [facility] Body temperature 2024-01-25 15:44:00 36.72 Jessica [facility] Respiratory rate 2024-01-25 15:44:00 17 /min [facility] Body height 2024-01-25 15:44:00 160 cm [facility] Body weight 2024-01-25 15:44:00 80.74 kg [facility] BMI 2024-01-25 15:44:00 31.53 kg/m2 [facility] Oxygen saturation in Arterial blood by Pulse oximetry 2024-01-25 15:44:00 100 /min [facility] Systolic blood pressure 2024-01-05 00:04:00 137 mm[Hg] [facility] Diastolic blood pressure 2024-01-05 00:04:00 54 mm[Hg] [facility] Heart rate 2024-01-05 00:04:00 75 /min [facility] Body temperature 2024-01-05 00:04:00 37.33 Jessica [facility] Respiratory rate 2024-01-05 00:04:00 18 /min [facility] Oxygen saturation in Arterial blood by Pulse oximetry 2024-01-05 00:04:00 100 /min [facility] Body height 2024-01-03 15:38:00 157.5 cm [facility] Body weight 2024-01-03 15:38:00 78.019 kg [facility] BMI 2024-01-03 15:38:00 31.46 kg/m2 [facility] Systolic blood pressure 2023-12-27 15:20:00 115 mm[Hg] [facility] Diastolic blood pressure 2023-12-27 15:20:00 36 mm[Hg] [facility] Heart rate 2023-12-27 15:20:00 66 /min [facility] Body temperature 2023-12-27 15:20:00 36.5 Jessica [facility] Respiratory rate 2023-12-27 15:20:00 16 /min [facility] Oxygen saturation in Arterial blood by Pulse oximetry 2023-12-27 15:20:00 96 /min [facility] Body height 2023-12-27 14:24:00 157.5 cm [facility] Body weight 2023-12-27 14:24:00 78.019 kg [facility] BMI 2023-12-27 14:24:00 31.46 kg/m2 [facility] Systolic blood pressure 2023-12-22 16:14:00 136 mm[Hg] [facility] Diastolic blood pressure 2023-12-22 16:14:00 58 mm[Hg] [facility] Heart rate 2023-12-22 16:14:00 53 /min [facility] Body temperature 2023-12-22 16:14:00 35.78 Jessica [facility] Respiratory rate 2023-12-22 16:14:00 18 /min [facility] Oxygen saturation in Arterial blood by Pulse oximetry 2023-12-22 16:14:00 96 /min [facility] Body weight 2023-12-21 23:32:00 78.019 kg [facility] BMI 2023-12-21 23:32:00 31.46 kg/m2 [facility] Body height 2023-12-20 18:27:00 157.5 cm [facility] Systolic blood pressure 2023-03-29 19:04:00 130 mm[Hg] [facility] Diastolic blood pressure 2023-03-29 19:04:00 66 mm[Hg] [facility] Heart rate 2023-03-29 19:04:00 62 /min [facility] Body temperature 2023-03-29 19:04:00 36.72 Jessica [facility] Body height 2023-03-29 19:04:00 160 cm [facility] Body weight 2023-03-29 19:04:00 77.883 kg [facility] BMI 2023-03-29 19:04:00 30.42 kg/m2 [facility] Oxygen saturation in Arterial blood by Pulse oximetry 2023-03-29 19:04:00 97 /min [facility] Systolic blood pressure 2023-02-16 15:37:00 124 mm[Hg] [facility] Diastolic blood pressure 2023-02-16 15:37:00 52 mm[Hg] [facility] Heart rate 2023-02-16 15:37:00 61 /min [facility] Oxygen saturation in Arterial blood by Pulse oximetry 2023-02-16 15:37:00 99 /min [facility] Body temperature 2023-02-16 15:35:00 36.56 Jessica [facility] Respiratory rate 2023-02-16 15:35:00 18 /min [facility] Body height 2023-02-16 15:35:00 160 cm [facility] Body weight 2023-02-16 15:35:00 76.839 kg [facility] BMI 2023-02-16 15:35:00 30.01 kg/m2 [facility] Systolic blood pressure 2023-02-02 15:40:00 156 mm[Hg] [facility] Diastolic blood pressure 2023-02-02 15:40:00 68 mm[Hg] [facility] Heart rate 2023-02-02 15:40:00 63 /min [facility] Body temperature 2023-02-02 15:40:00 37.06 Jessica [facility] Respiratory rate 2023-02-02 15:40:00 18 /min [facility] Body height 2023-02-02 15:40:00 160 cm [facility] Body weight 2023-02-02 15:40:00 74.844 kg [facility] BMI 2023-02-02 15:40:00 29.23 kg/m2 [facility] Systolic blood pressure 2023-01-23 15:45:00 159 mm[Hg] [facility] Diastolic blood pressure 2023-01-23 15:45:00 65 mm[Hg] [facility] Heart rate 2023-01-23 15:45:00 53 /min [facility] Oxygen saturation in Arterial blood by Pulse oximetry 2023-01-23 15:45:00 99 /min [facility] Respiratory rate 2023-01-23 15:35:00 16 /min [facility] Body temperature 2023-01-23 15:18:00 36.11 Jessica [facility] Body height 2023-01-23 13:01:00 160 cm [facility] Body weight 2023-01-23 13:01:00 79.379 kg [facility] BMI 2023-01-23 13:01:00 31.00 kg/m2 [facility] Systolic blood pressure 2023-01-23 13:01:00 161 mm[Hg] [facility] Diastolic blood pressure 2023-01-23 13:01:00 67 mm[Hg] [facility] Heart rate 2023-01-23 13:01:00 65 /min [facility] Body temperature 2023-01-23 13:01:00 36.11 Jessica [facility] Respiratory rate 2023-01-23 13:01:00 16 /min [facility] Body height 2023-01-23 13:01:00 160 cm [facility] Body weight 2023-01-23 13:01:00 79.379 kg [facility] BMI 2023-01-23 13:01:00 31.00 kg/m2 [facility] Oxygen saturation in Arterial blood by Pulse oximetry 2023-01-23 13:01:00 98 /min [facility] Body temperature 2022-11-23 17:00:00 36.56 Jessica [facility] Systolic blood pressure 2022-11-23 09:00:00 120 mm[Hg] [facility] Diastolic blood pressure 2022-11-23 09:00:00 60 mm[Hg] [facility] Heart rate 2022-11-23 09:00:00 63 /min [facility] Respiratory rate 2022-11-23 09:00:00 20 /min [facility] Body weight 2022-11-23 09:00:00 80.468 kg [facility] BMI 2022-11-23 09:00:00 31.42 kg/m2 [facility] Oxygen saturation in Arterial blood by Pulse oximetry 2022-11-23 09:00:00 94 /min [facility] Body height 2022-11-22 03:12:00 160 cm [facility] Systolic blood pressure 2022-11-03 14:00:00 139 mm[Hg] [facility] Diastolic blood pressure 2022-11-03 14:00:00 63 mm[Hg] [facility] Heart rate 2022-11-03 14:00:00 63 /min [facility] Body temperature 2022-11-03 14:00:00 36.94 Jessica [facility] Respiratory rate 2022-11-03 14:00:00 18 /min [facility] Body height 2022-11-03 14:00:00 160 cm [facility] Body weight 2022-11-03 14:00:00 77.021 kg [facility] BMI 2022-11-03 14:00:00 30.08 kg/m2 [facility] Oxygen saturation in Arterial blood by Pulse oximetry 2022-11-03 14:00:00 96 /min [facility] Systolic blood pressure 2022-10-17 15:53:00 142 mm[Hg] [facility] Diastolic blood pressure 2022-10-17 15:53:00 81 mm[Hg] [facility] Heart rate 2022-10-17 15:53:00 57 /min [facility] Body temperature 2022-10-17 15:53:00 36.44 Jessica [facility] Respiratory rate 2022-10-17 15:53:00 18 /min [facility] Body height 2022-10-17 15:53:00 157.5 cm [facility] Body weight 2022-10-17 15:53:00 78.019 kg [facility] BMI 2022-10-17 15:53:00 31.46 kg/m2 [facility] Oxygen saturation in Arterial blood by Pulse oximetry 2022-10-17 15:53:00 98 /min [facility] Systolic blood pressure 2022-04-21 15:05:00 187 mm[Hg] [facility] Diastolic blood pressure 2022-04-21 15:05:00 84 mm[Hg] [facility] Heart rate 2022-04-21 15:05:00 50 /min [facility] Respiratory rate 2022-04-21 15:05:00 23 /min [facility] Oxygen saturation in Arterial blood by Pulse oximetry 2022-04-21 15:05:00 100 /min [facility] Body temperature 2022-04-21 14:38:00 36.56 Jessica [facility] Body weight 2022-04-18 21:00:00 79.379 kg [facility] BMI 2022-04-18 21:00:00 31.00 kg/m2 [facility] Systolic blood pressure 2022-04-21 13:08:00 161 mm[Hg] [facility] Diastolic blood pressure 2022-04-21 13:08:00 63 mm[Hg] [facility] Heart rate 2022-04-21 13:08:00 50 /min [facility] Body temperature 2022-04-21 13:08:00 36.89 Jessica [facility] Respiratory rate 2022-04-21 13:08:00 16 /min [facility] Oxygen saturation in Arterial blood by Pulse oximetry 2022-04-21 13:08:00 98 /min [facility] Body weight 2022-04-18 21:00:00 79.379 kg [facility] BMI 2022-04-18 21:00:00 31.00 kg/m2 [facility] Systolic blood pressure 2022-03-10 14:22:00 153 mm[Hg] [facility] Diastolic blood pressure 2022-03-10 14:22:00 78 mm[Hg] [facility] Heart rate 2022-03-10 14:17:00 60 /min [facility] Body temperature 2022-03-10 14:17:00 36.67 Jessica [facility] Respiratory rate 2022-03-10 14:17:00 18 /min [facility] Body height 2022-03-10 14:17:00 160 cm [facility] Body weight 2022-03-10 14:17:00 76.204 kg [facility] BMI 2022-03-10 14:17:00 29.76 kg/m2 [facility] Systolic blood pressure 2022-03-09 20:11:00 138 mm[Hg] [facility] Diastolic blood pressure 2022-03-09 20:11:00 67 mm[Hg] [facility] Heart rate 2022-03-09 20:03:00 74 /min [facility] Body temperature 2022-03-09 20:03:00 37.28 Jessica [facility] Respiratory rate 2022-03-09 20:03:00 18 /min [facility] Body height 2022-03-09 20:03:00 160 cm [facility] Body weight 2022-03-09 20:03:00 78.064 kg [facility] BMI 2022-03-09 20:03:00 30.49 kg/m2 [facility] Oxygen saturation in Arterial blood by Pulse oximetry 2022-03-09 20:03:00 96 /min [facility] Systolic blood pressure 2022-01-23 20:13:00 132 mm[Hg] [facility] Diastolic blood pressure 2022-01-23 20:13:00 107 mm[Hg] [facility] Heart rate 2022-01-23 20:13:00 75 /min [facility] Respiratory rate 2022-01-23 20:13:00 19 /min [facility] Oxygen saturation in Arterial blood by Pulse oximetry 2022-01-23 20:13:00 98 /min [facility] Body temperature 2022-01-23 20:10:00 37.06 Jessica [facility] Body height 2022-01-23 20:10:00 160 cm [facility] Body weight 2022-01-23 20:10:00 77.021 kg [facility] BMI 2022-01-23 20:10:00 30.08 kg/m2 [facility] BP Systolic 2024-02-12 15:02:00 151 mm[Hg] Jonatan Eason BP Diastolic 2024-02-12 15:02:00 66 mm[Hg] Jonatan Eason Weight Measured 2024-02-12 15:02:00 177.40 pounds Jonatan Eason Height Measured 2024-02-12 15:02:00 64.00 inches Jonatan Eason Body Temperature 2024-02-12 15:02:00 98.50 degrees Jonatan Eason Heart Rate 2024-02-12 15:02:00 89.00 /min Jonatan Eason Respiratory Rate 2024-02-12 15:02:00 18.00 /min Jonatan Eason BP Systolic 2024-02-02 09:00:00 128 mm[Hg] Jonatan Eason BP Diastolic 2024-02-02 09:00:00 71 mm[Hg] Jonatan Eason Weight Measured 2024-02-02 09:00:00 164.80 pounds Jonatan Eason Height Measured 2024-02-02 09:00:00 64.00 inches Jonatan Eason Body Temperature 2024-02-02 09:00:00 97.80 degrees Jonatan Eason Heart Rate 2024-02-02 09:00:00 91.00 /min Jonatan Eason Respiratory Rate 2024-02-02 09:00:00 Jonatan Eason Systolic blood pressure 2024-01-05 04:45:00 116 mm[Hg] [facility] Diastolic blood pressure 2024-01-05 04:45:00 67 mm[Hg] [facility] Heart rate 2024-01-05 04:45:00 62 /min [facility] Body temperature 2024-01-05 04:45:00 35.56 Jessica [facility] Respiratory rate 2024-01-05 04:45:00 18 /min [facility] Oxygen saturation in Arterial blood by Pulse oximetry 2024-01-05 04:45:00 98 /min [facility] Body height 2024-01-03 15:38:00 157.5 cm [facility] Body weight 2024-01-03 15:38:00 78.019 kg [facility] BMI 2024-01-03 15:38:00 31.46 kg/m2 [facility] Systolic blood pressure 2024-01-02 16:52:00 125 mm[Hg] [facility] Diastolic blood pressure 2024-01-02 16:52:00 72 mm[Hg] [facility] Heart rate 2024-01-02 16:52:00 98 /min [facility] Body temperature 2024-01-02 16:52:00 36.89 Jessica [facility] Respiratory rate 2024-01-02 16:52:00 20 /min [facility] Oxygen saturation in Arterial blood by Pulse oximetry 2024-01-02 16:52:00 98 /min [facility] Body height 2023-12-31 16:13:00 157.5 cm [facility] Body weight 2023-12-31 16:13:00 78.019 kg [facility] BMI 2023-12-31 16:13:00 31.46 kg/m2 [facility] Systolic blood pressure 2023-12-27 16:38:00 135 mm[Hg] [facility] Diastolic blood pressure 2023-12-27 16:38:00 70 mm[Hg] [facility] Heart rate 2023-12-27 16:38:00 63 /min [facility] Body temperature 2023-12-27 16:38:00 36.06 Jessica [facility] Respiratory rate 2023-12-27 16:38:00 17 /min [facility] Oxygen saturation in Arterial blood by Pulse oximetry 2023-12-27 16:38:00 99 /min [facility] Body height 2023-12-27 14:24:00 157.5 cm [facility] Body weight 2023-12-27 14:24:00 78.019 kg [facility] BMI 2023-12-27 14:24:00 31.46 kg/m2 [facility] BP Systolic 2023-06-27 15:24:00 153 mm[Hg] Jonatan F Jenaro BP Diastolic 2023-06-27 15:24:00 64 mm[Hg] Jonatan F Jenaro Weight Measured 2023-06-27 15:24:00 175.00 pounds Jonatan F Jenaro Height Measured 2023-06-27 15:24:00 64.00 inches Jonatan F Jenaro Body Temperature 2023-06-27 15:24:00 98.80 degrees Jonatan F Jenaro Heart Rate 2023-06-27 15:24:00 89.00 /min Jonatan F Jenaro Respiratory Rate 2023-06-27 15:24:00 18.00 /min Jonatan F Jenaro BP Systolic 2023-05-21 13:59:00 143 mm[Hg] Jonatan F Jenaro BP Diastolic 2023-05-21 13:59:00 66 mm[Hg] Jonatan F Jenaro Weight Measured 2023-05-21 13:59:00 174.40 pounds Jonatan F Jenaro Height Measured 2023-05-21 13:59:00 64.00 inches Jonatan F Jenaro Body Temperature 2023-05-21 13:59:00 98.20 degrees Jonatan F Jenaro Heart Rate 2023-05-21 13:59:00 68.00 /min Jonatan F Jenaro Respiratory Rate 2023-05-21 13:59:00 Jonatan F Jenaro BP Systolic 2023-02-28 14:30:00 151 mm[Hg] Jonatan F Jenaro BP Diastolic 2023-02-28 14:30:00 68 mm[Hg] Jonatan F Jenaro Weight Measured 2023-02-28 14:30:00 167.40 pounds Jonatan F Jenaro Height Measured 2023-02-28 14:30:00 64.00 inches Jonatan F Jenaro Body Temperature 2023-02-28 14:30:00 97.90 degrees Jonatan F Jenaro Heart Rate 2023-02-28 14:30:00 80.00 /min Jonatan F Jenaro Respiratory Rate 2023-02-28 14:30:00 Jonatan F Jenaro BP Systolic 2022-12-20 14:31:00 133 mm[Hg] Jonatan F Jenaro BP Diastolic 2022-12-20 14:31:00 61 mm[Hg] Jonatan F Jenaro Weight Measured 2022-12-20 14:31:00 174.80 pounds Jonatan F Jenaro Height Measured 2022-12-20 14:31:00 64.00 inches Jonatan F Jenaro Body Temperature 2022-12-20 14:31:00 97.70 degrees Jonatan F Jenaro Heart Rate 2022-12-20 14:31:00 69.00 /min Jonatan F Jenaro Respiratory Rate 2022-12-20 14:31:00 Jonatan F Jenaro BP Systolic 2022-09-12 16:48:00 160 mm[Hg] Jonatan F Jenaro BP Diastolic 2022-09-12 16:48:00 77 mm[Hg] Jonatan F Jenaro Weight Measured 2022-09-12 16:48:00 177.60 pounds Jonatan F Jenaro Height Measured 2022-09-12 16:48:00 64.00 inches Jonatan F Jenaro Body Temperature 2022-09-12 16:48:00 97.90 degrees Jonatan F Jenaro Heart Rate 2022-09-12 16:48:00 67.00 /min Jonatan F Jenaro Respiratory Rate 2022-09-12 16:48:00 Jonatan F Jenaro BP Systolic 2022-05-30 15:15:00 Jonatan F Jenaro BP Diastolic 2022-05-30 15:15:00 Jonatan F Jenaro Weight Measured 2022-05-30 15:15:00 179.80 pounds Jonatan F Jenaro Height Measured 2022-05-30 15:15:00 64.00 inches Jonatan F Jenaro Body Temperature 2022-05-30 15:15:00 Jonatan F Jenaro Heart Rate 2022-05-30 15:15:00 Jonatan F Jenaro Respiratory Rate 2022-05-30 15:15:00 Jonatan F Jenaro BP Systolic 2022-05-22 14:36:00 166 mm[Hg] Jonatan F Jenaro BP Diastolic 2022-05-22 14:36:00 69 mm[Hg] Jonatan F Jenaro Weight Measured 2022-05-22 14:36:00 179.80 pounds Jonatan F Jenaro Height Measured 2022-05-22 14:36:00 64.00 inches Jonatan F Jenaro Body Temperature 2022-05-22 14:36:00 97.80 degrees Jonatan F Jenaro Heart Rate 2022-05-22 14:36:00 60.00 /min Jonatan F Jenaro Respiratory Rate 2022-05-22 14:36:00 Jonatan F Jenaro BP Systolic 2022-03-13 16:23:00 167 mm[Hg] Jonatan F Jenaro BP Diastolic 2022-03-13 16:23:00 82 mm[Hg] Jonatan F Jenaro Weight Measured 2022-03-13 16:23:00 172.00 pounds Jonatan F Jenaro Height Measured 2022-03-13 16:23:00 64.00 inches Jonatan F Jenaro Body Temperature 2022-03-13 16:23:00 97.80 degrees Jonatan F Jenaro Heart Rate 2022-03-13 16:23:00 65.00 /min Jonatan F Jenaro Respiratory Rate 2022-03-13 16:23:00 16.00 /min Jonatan F Jenaro BP Systolic 2022-02-24 14:41:00 178 mm[Hg] Jonatan F Jenaro BP Diastolic 2022-02-24 14:41:00 92 mm[Hg] Jonatan F Jenaro Weight Measured 2022-02-24 14:41:00 173.40 pounds Jonatan F Jenaro Height Measured 2022-02-24 14:41:00 64.00 inches Jonatan F Jenaro Body Temperature 2022-02-24 14:41:00 98.20 degrees Jonatan F Jenaro Heart Rate 2022-02-24 14:41:00 70.00 /min Jonatan F Jenaro Respiratory Rate 2022-02-24 14:41:00 18.00 /min Jonatan F Jenaro BP Systolic 2022-02-13 08:47:00 175 mm[Hg] BP Diastolic 2022-02-13 08:47:00 95 mm[Hg] Weight Measured 2022-02-13 08:47:00 170.00 pounds Height Measured 2022-02-13 08:47:00 64.00 inches Body Temperature 2022-02-13 08:47:00 97.70 degrees Heart Rate 2022-02-13 08:47:00 56.00 /min Respiratory Rate 2022-02-13 08:47:00 16.00 /min BP Systolic 2021-12-26 08:23:00 143 mm[Hg] BP Diastolic 2021-12-26 08:23:00 68 mm[Hg] Weight Measured 2021-12-26 08:23:00 165.00 pounds Height Measured 2021-12-26 08:23:00 64.00 inches Body Temperature 2021-12-26 08:23:00 98.10 degrees Heart Rate 2021-12-26 08:23:00 57.00 /min Respiratory Rate 2021-12-26 08:23:00 18.00 /min BP Systolic 2021-11-30 14:55:00 160 mm[Hg] BP Diastolic 2021-11-30 14:55:00 58 mm[Hg] Weight Measured 2021-11-30 14:55:00 174.00 pounds Height Measured 2021-11-30 14:55:00 64.00 inches Body Temperature 2021-11-30 14:55:00 98.30 degrees Heart Rate 2021-11-30 14:55:00 59.00 /min Respiratory Rate 2021-11-30 14:55:00 18.00 /min BP Systolic 2021-11-21 14:49:00 134 mm[Hg] BP Diastolic 2021-11-21 14:49:00 65 mm[Hg] Weight Measured 2021-11-21 14:49:00 177.00 pounds Height Measured 2021-11-21 14:49:00 64.00 inches Body Temperature 2021-11-21 14:49:00 Heart Rate 2021-11-21 14:49:00 62.00 /min Respiratory Rate 2021-11-21 14:49:00 BP Systolic 2021-10-12 14:53:00 79 mm[Hg] BP Diastolic 2021-10-12 14:53:00 48 mm[Hg] Weight Measured 2021-10-12 14:53:00 170.00 pounds Height Measured 2021-10-12 14:53:00 64.00 inches Body Temperature 2021-10-12 14:53:00 97.20 degrees Heart Rate 2021-10-12 14:53:00 65.00 /min Respiratory Rate 2021-10-12 14:53:00 18.00 /min BP Systolic 2021-08-22 08:13:00 160 mm[Hg] BP Diastolic 2021-08-22 08:13:00 54 mm[Hg] Weight Measured 2021-08-22 08:13:00 173.00 pounds Height Measured 2021-08-22 08:13:00 64.00 inches Body Temperature 2021-08-22 08:13:00 98.10 degrees Heart Rate 2021-08-22 08:13:00 50.00 /min Respiratory Rate 2021-08-22 08:13:00 16.00 /min BP Systolic 2021-06-02 16:14:00 132 mm[Hg] BP Diastolic 2021-06-02 16:14:00 71 mm[Hg] Weight Measured 2021-06-02 16:14:00 174.00 pounds Height Measured 2021-06-02 16:14:00 64.00 inches Body Temperature 2021-06-02 16:14:00 98.20 degrees Heart Rate 2021-06-02 16:14:00 67.00 /min Respiratory Rate 2021-06-02 16:14:00 BP Systolic 2021-03-14 15:48:00 115 mm[Hg] BP Diastolic 2021-03-14 15:48:00 62 mm[Hg] Weight Measured 2021-03-14 15:48:00 168.80 pounds Height Measured 2021-03-14 15:48:00 64.00 inches Body Temperature 2021-03-14 15:48:00 98.60 degrees Heart Rate 2021-03-14 15:48:00 77.00 /min Respiratory Rate 2021-03-14 15:48:00 BP Systolic 2021-02-28 15:53:00 151 mm[Hg] BP Diastolic 2021-02-28 15:53:00 61 mm[Hg] Weight Measured 2021-02-28 15:53:00 169.60 pounds Height Measured 2021-02-28 15:53:00 64.00 inches Body Temperature 2021-02-28 15:53:00 98.40 degrees Heart Rate 2021-02-28 15:53:00 82.00 /min Respiratory Rate 2021-02-28 15:53:00 17.00 /min BP Systolic 2020-12-20 14:45:00 137 mm[Hg] BP Diastolic 2020-12-20 14:45:00 63 mm[Hg] Weight Measured 2020-12-20 14:45:00 170.80 pounds Height Measured 2020-12-20 14:45:00 64.00 inches Body Temperature 2020-12-20 14:45:00 98.40 degrees Heart Rate 2020-12-20 14:45:00 81.00 /min Respiratory Rate 2020-12-20 14:45:00 BP Systolic 2020-09-09 15:14:00 146 mm[Hg] BP Diastolic 2020-09-09 15:14:00 71 mm[Hg] Weight Measured 2020-09-09 15:14:00 170.00 pounds Height Measured 2020-09-09 15:14:00 64.00 inches Body Temperature 2020-09-09 15:14:00 98.80 degrees Heart Rate 2020-09-09 15:14:00 62.00 /min Respiratory Rate 2020-09-09 15:14:00 17.00 /min BP Systolic 2020-05-03 10:53:00 123 mm[Hg] BP Diastolic 2020-05-03 10:53:00 63 mm[Hg] Weight Measured 2020-05-03 10:53:00 168.00 pounds Height Measured 2020-05-03 10:53:00 64.00 inches Body Temperature 2020-05-03 10:53:00 98.30 degrees Heart Rate 2020-05-03 10:53:00 78.00 /min Respiratory Rate 2020-05-03 10:53:00 16.00 /min BP Systolic 2020-04-19 17:20:00 156 mm[Hg] BP Diastolic 2020-04-19 17:20:00 70 mm[Hg] Weight Measured 2020-04-19 17:20:00 171.60 pounds Height Measured 2020-04-19 17:20:00 64.00 inches Body Temperature 2020-04-19 17:20:00 98.50 degrees Heart Rate 2020-04-19 17:20:00 69.00 /min Respiratory Rate 2020-04-19 17:20:00 16.00 /min Procedures Procedure Date / Time Performed Performing Clinician Source PREPARE PACKED RBC 2024-02-05:57:57 Clay [facility] CBC WITHOUT DIFF 2024-02-05 18:12:00 Andrew [facility] CBC WITHOUT DIFF 2024-02-05 18:12:00 Andrew [facility] TRANSFUSE PACKED RBC 2024-02-05 13:54:00 Andrew [facility] TRANSFUSE PACKED RBC 2024-02-05 13:54:00 Andrew [facility] PREPARE PACKED RBC 2024-02-05 13:45:51 Andrew [facility] PREPARE PACKED RBC 2024-02-05 13:45:51 Andrew [facility] PREPARE PACKED RBC 2024-02-05 11:46:16 Clay Iraj [facility] MAGNESIUM 2024-02-05 10:48:00 Andrew [facility] BASIC METABOLIC PANEL (NA, K , CL, CO2, GLUCOSE, BUN, CREATININE, CA) 2024-02-05 10:48:00 Andrew [facility] CBC WITH DIFF 2024-02-05 10:48:00 Andrew [facility] MAGNESIUM 2024-02-05 10:48:00 Andrew [facility] BASIC METABOLIC PANEL (NA, K , CL, CO2, GLUCOSE, BUN, CREATININE, CA) 2024-02-05 10:48:00 Andrew [facility] CBC WITH DIFF 2024-02-05 10:48:00 Andrew [facility] TROPONIN I 2024-02-04 19:45:00 Clay [facility] TROPONIN I 2024-02-04 19:45:00 Clay Iraj [facility] CYSTOSCOPY WITH EVACUATION CLOTS 2024-01 17:51:00 Deep [facility] CYSTOSCOPY WITH EVACUATION CLOTS 2024-01 17:51:00 Deep [facility] MAGNESIUM 2024-02-04 10:16:00 Andrew [facility] BASIC METABOLIC PANEL (NA, K , CL, CO2, GLUCOSE, BUN, CREATININE, CA) 2024-02-04 10:16:00 Andrew [facility] CBC WITH DIFF 2024-02-04 10:16:00 Andrew [facility] MAGNESIUM 2024-02-04 10:16:00 Andrew [facility] BASIC METABOLIC PANEL (NA, K , CL, CO2, GLUCOSE, BUN, CREATININE, CA) 2024-02-04 10:16:00 Andrew [facility] CBC WITH DIFF 2024-02-04 10:16:00 Andrew [facility] CBC WITHOUT DIFF 2024-02-04 04:40:00 Betsy Gabriel [facility] CBC WITHOUT DIFF 2024-02-04 04:40:00 Betsy [facility] TRANSFUSE PACKED RBC 2024-02-04 01:42:00 Betsy [facility] TRANSFUSE PACKED RBC 2024-02-04 01:42:00 Betsy Gabriel [facility] PREPARE PACKED RBC 2024-02-04 01:26:40 Betsy [facility] PREPARE PACKED RBC 2024-02-04 01:26:40 Gabriel Meyer [facility] CBC WITHOUT DIFF 2024-02-03 22:16:00 Andrew [facility] CBC WITHOUT DIFF 2024-02-03 22:16:00 Andrew [facility] TRANSFUSE PACKED RBC 2024-02-03 18:07:00 Andrew [facility] TRANSFUSE PACKED RBC 2024-02-03 18:07:00 Andrew [facility] PREPARE PACKED RBC 2024-02-03 17:56:43 [facility] PREPARE PACK[facility] RBC 2024-02-03 17:56:43 Koleti, [facility] CBC WITHOUT DIFF 2024-02-03 16:29:00 Andrew [facility] CBC WITHOUT DIFF 2024-02-03 16:29:00 Andrew [facility] US ABDOMEN LIMITED WITH DOPPLER 13:11:29 [facility] US ABDOMEN LIMITED WITH DOPPLER 13:11:29 Se[facility] CBC WITHOUT DIFF 2024-02-03 12:11:00 Justyn Garrison [facility] CBC WITHOUT DIFF 2024-02-03 12:11:00 Justyn Garrison [facility] LACTATE DEHYDROGENASE 2024-02-03 11:16:00 Se[facility] LACTATE DEHYDROGENASE 2024-02-03 11:16:00 Se[facility] TRANSFUSE PACKED RBC 2024-02-03 09:18:00 [facility] TRANSFUSE PACKED RBC 2024-02-03 09:18:00 [facility] PREPARE PACKED RBC 2024-02-03 09:04:35 Justyn Garrison [facility] PREPARE PACKED RBC 2024-02-03 09:04:35 Justyn Garrison [facility] CT ANGIOGRAM ABDOMEN/PELVIS 2024-02-03 07:54:27 [facility] CT ANGIOGRAM ABDOMEN/PELVIS 2024-02-03 07:54:27 Se[facility] HB ABO GROUPING 2024-02-03 05:54:00 Justyn Garrison [facility] HB ABO GROUPING 2024-02-03 05:54:00 Justyn Garrison [facility] FERRITIN SERUM 2024-02-03 05:00:00 [facility] AMMONIA, PLASMA 2024-02-03 05:00:00 Justyn Garrison [facility] HAPTOGLOBIN, SERUM 2024-02-03 05:00:00 Serena Kim [facility] HEPATIC FUNCTION PANEL (8007 6) (ALB,T.PRO,BILI T,BU/BC,ALT,AST,ALK PHOS) 2024-02-03 05:00:00 Justyn Garrison [facility] BASIC METABOLIC PANEL (NA, K , CL, CO2, GLUCOSE, BUN, CREATININE, CA) 2024-02-03 05:00:00 Justyn Garrison [facility] IRON PANEL 2024-02-03 05:00:00 Danuta Greeresha [facility] CBC WITH DIFF 2024-02-03 05:00:00 Justyn Garrison [facility] PROTHROMBIN TIME / INR 2024-02-03 05:00:00 Justyn Garrison [facility] ACTIVATED PARTIAL THRMPLAS RASHAD 2024-01-14 2 05:00:00 [facility] FIBRINOGEN 2024-02-03 05:00:00 Se[facility] URINALYSIS 2024-02-03 05:00:00 Justyn Garrison [facility] RETICULOCYTES AUTOMATED 2024-02-03 05:00:00 [facility] FERRITIN SERUM 2024-02-03 05:00:00 [facility] AMMONIA, PLASMA 2024-02-03 05:00:00 Justyn Garrison [facility] HAPTOGLOBIN, SERUM 2024-02-03 05:00:00 Se[facility] HEPATIC FUNCTION PANEL (8007 6) (ALB,T.PRO,BILI T,BU/BC,ALT,AST,ALK PHOS) 2024-02-03 05:00:00 Justyn Garrison [facility] BASIC METABOLIC PANEL (NA, K , CL, CO2, GLUCOSE, BUN, CREATININE, CA) 2024-02-03 05:00:00 Justyn Garrison [facility] IRON PANEL 2024-02-03 05:00:00 Danuta Greeresha [facility] CBC WITH DIFF 2024-02-03 05:00:00 Justyn Garrison [facility] PROTHROMBIN TIME / INR 2024-02-03 05:00:00 Justyn Garrison [facility] ACTIVATED PARTIAL THRMPLAS RASHAD 2024-01-14 2 05:00:00 Kim Greer [facility] FIBRINOGEN 2024-02-03 05:00:00 Serena Kim [facility] URINALYSIS 2024-02-03 05:00:00 Justyn Garrison [facility] RETICULOCYTES AUTOMATED 2024-02-03 05:00:00 Serena Kim [facility] COMP. METABOLIC PANEL (07782) 2024-01-04 10:26:00 Marie [facility] CBC WITHOUT DIFF 2024-01-04 10:26:00 Marie [facility] CBC WITHOUT DIFF 2024-01-04 10:26:00 Marie [facility] COMP. METABOLIC PANEL (64646) 2024-01-04 10:26:00 [facility] 2024-01-03 17:17:00 Franklyn [facility] INTUBATION 2024-01-03 17:09:00 Franklyn [facility] CBC WITHOUT DIFF 2024-01-03 10:43:00 Marie [facility] CBC WITHOUT DIFF 2024-01-03 10:43:00 Marie [facility] MRSA / MSSA SCREEN BY PCRLYN 2023-12 10:31:00 Yovani Morales Abdiel [facility] MRSA / MSSA SCREEN BY PCRLYN 2023-12 10:31:00 Yovani Morales [facility] CBC WITH DIFF 2024-01-02 10:29:00 Marie [facility] BASIC METABOLIC PANEL (NA, K , CL, CO2, GLUCOSE, BUN, CREATININE, CA) 2024-01-02 10:29:00 Marie [facility] MAGNESIUM 2024-01-02 10:29:00 Marie [facility] MAGNESIUM 2024-01-02 10:29:00 Marie [facility] BASIC METABOLIC PANEL (NA, K , CL, CO2, GLUCOSE, BUN, CREATININE, CA) 2024-01-02 10:29:00 [facility] WITH DIFF 2024-01-02 10:29:00 [facility] ABDOMEN/PELVIS 2024-01-01 20:21:11 Marian Zepeda [facility] CT ANGIOGRAM ABDOMEN/PELVIS 2024-01-01 20:21:11 Marian Zepeda [facility] CBC WITH DIFF 2024-01-01 10:12:00 Marie [facility] BASIC METABOLIC PANEL (NA, K , CL, CO2, GLUCOSE, BUN, CREATININE, CA) 2024-01-01 10:12:00 [facility] 2024-01-01 10:12:00 Marie [facility] PROTHROMBIN TIME / INR 2024-01-01 10:12:00 Raza Fraire [facility] HEPATIC FUNCTION PANEL (8007 6) (ALB,T.PRO,BILI T,BU/BC,ALT,AST,ALK PHOS) 2024-01-01 10:12:00 Raza Fraire [facility] MAGNESIUM 2024-01-01 10:12:00 [facility] HEPATIC FUNCTION PANEL (8007 6) (ALB,T.PRO,BILI T,BU/BC,ALT,AST,ALK PHOS) 2024-01-01 10:12:00 Raza Fraire [facility] BASIC METABOLIC PANEL (NA, K , CL, CO2, GLUCOSE, BUN, CREATININE, CA) 2024-01-01 10:12:00 [facility] CBC WITH DIFF 2024-01-01 10:12:00 Marie [facility] PROTHROMBIN TIME / INR 2024-01-01 10:12:00 Raza Fraire [facility] CBC WITH DIFF 2024-01-01 04:21:00 Tor San [facility] CBC WITH DIFF 2024-01-01 04:21:00 Tor San [facility] IR TIPS 2023-12-31 23:59[facility] 23:59:32 Isac Fuentes [facility] IR TIPS 2023-12-31 23:59:32 Isac Fuentes [facility] PREPARE PACKED RBC 2023-12-31 18:55:23 Theodora Mazariegos [facility] ARTERIAL LINE 2023-12-31 18:20:00 Rachel Lange [facility] ARTERIAL LINE 2023-12-31 18:20:00 Nazario [facility] INTUBATION 2023-12-31 18:09:00 Nazario [facility] INTUBATION 2023-12-31 18:09:00 Nazario [facility] CBC WITH DIFF 2023-12-31 17:48:00 Marian Zepeda [facility] CBC WITH DIFF 2023-12-31 17:48:00 Marian Zepeda [facility] HB ABO GROUPING 2023-12-31 15:34:00 Theodora Mazariegos [facility] HB ABO GROUPING 2023-12-31 15:34:00 Theodora Mazariegos [facility] CBC WITHOUT DIFF 2023-12-29 10:45:00 Marie [facility] CBC WITHOUT DIFF 2023-12-29 10:45:00 Marie [facility] CBC WITHOUT DIFF 2023-12-28 20:52:00 Marie [facility] CBC WITHOUT DIFF 2023-12-28 20:52:00 [facility] PROCEDURE DOCUMENTATION 2023-16 18:17:46 Doctor Unassigned, [place] [facility] CBC WITH DIFF 2023-12-28 10:31:00 Roselia Maki [facility] ACTIVATED PARTIAL THRMPLAS RASHAD 2023-12-13 6 10:31:00 Roselia Maki [facility] CBC WITH DIFF 2023-12-28 10:31:00 Maki, [facility] ACTIVATED PARTIAL THRMPLAS RASHAD 2023-12-13 6 10:31:00 Maki, [facility] ACTIVATED PARTIAL THRMPLAS RASHAD 2023-12-13 6 01:54:00 Maki, [facility] ACTIVATED PARTIAL THRMPLAS RASHAD 2023-12-13 6 01:54:00 Maki, [facility] ACTIVATED PARTIAL THRMPLAS RASHAD 2023-12-13 6 01:54:00 Maki, [facility] ACTIVATED PARTIAL THRMPLAS RASHAD 2023-12-13 5 20:37:00 Marie [facility] ACTIVATED PARTIAL THRMPLAS RASHAD 2023-12-13 5 20:37:00 Marie [facility] ACTIVATED PARTIAL THRMPLAS RASHAD 2023-12-13 5 20:37:00 Marie [facility] EGD (ENDO) 2023-12-27 15:34:54 Bertin [facility] EGD (ENDO) 2023-12-27 15:34:54 Bertin [facility] EGD (ENDO) 2023-12-27 15:34:54 Bertin [facility] ESOPHAGOGASTRODUODENOSCOPY 2023-12-27 14:52:00 Kamran [facility] ESOPHAGOGASTRODUODENOSCOPY 2023-12-27 14:52:00 Kamran [facility] ESOPHAGOGASTRODUODENOSCOPY 2023-12-27 14:52:00 Kamran [facility] CBC WITH DIFF 2023-12-27 11:20:00 Eveline [facility] CBC WITH DIFF 2023-12-27 11:20:00 Eveline [facility] CBC WITH DIFF 2023-12-27 11:20:00 Eveline [facility] ALPHA 1 ANTITRYPSIN 2023-12-27 11:19:00 Marie [facility] CERULOPLASMIN 2023-12-27 11:19:00 Marie [facility] IMMUNOGLOBULIN G 2023-12-27 11:19:00 Marie [facility] BASIC METABOLIC PANEL (NA, K , CL, CO2, GLUCOSE, BUN, CREATININE, CA) 2023-12-27 11:19:00 Jana Mosquera [facility] MAGNESIUM 2023-12-27 11:19:00 Eveline [facility] MAGNESIUM 2023-12-27 11:19:00 Eveline [facility] CERULOPLASMIN 2023-12-27 11:19:00 Marie [facility] ALPHA 1 ANTITRYPSIN 2023-12-27 11:19:00 Marie [facility] IMMUNOGLOBULIN G 2023-12-27 11:19:00 Marie [facility] BASIC METABOLIC PANEL (NA, K , CL, CO2, GLUCOSE, BUN, CREATININE, CA) 2023-12-27 11:19:00 [facility] SMOOTH MUSCLE AB,IGG W/REFLEX 2023-12-27 11:19:00 Marie [facility] SMOOTH MUSCLE AB,IGG W/REFLEX 2023-12-27 11:19:00 Marie [facility] MAGNESIUM 2023-12-27 11:19:00 Eveline [facility] CERULOPLASMIN 2023-12-27 11:19:00 Marie [facility] ALPHA 1 ANTITRYPSIN 2023-12-27 11:19:00 Marie [facility] IMMUNOGLOBULIN G 2023-12-27 11:19:00 Marie [facility] BASIC METABOLIC PANEL (NA, K , CL, CO2, GLUCOSE, BUN, CREATININE, CA) 2023-12-27 11:19[facility] 2023-12-26 19:40:00 Marie [facility] TRANSFUSE PACKED RBC 2023-12-26 19:40:00 Marie [facility] PREPARE PACKED RBC 2023-12-26 19:09:54 Marie [facility] PREPARE PACKED RBC 2023-12-26 19:09:54 Marie [facility] PREPARE PACKED RBC 2023-12-26 19:09:54 Marie [facility] PREPARE PACKED RBC 2023-12-26 18:26:36 Agustín [facility] PREPARE PACKED RBC 2023-12-26 18:26:36 Agustín [facility] ALPHA FETOPROTEIN 2023-12-26 17:19:00 Isac Fuentes [facility] EXTRA TUBE LAV (BLOOD BANK) 2023-12-26 17:19:00 Agustín [facility] TYPE AND SCREEN 2023-12-26 17:19:00 Agustín [facility] ALPHA FETOPROTEIN 2023-12-26 17:19:00 Isac Fuentes [facility] TYPE AND SCREEN 2023-12-26 17:19:00 Agustín [facility] EXTRA TUBE LAV (BLOOD BANK) 2023-12-26 17:19:00 Agustín [facility] ALPHA FETOPROTEIN 2023-12-26 17:19:00 Isac Fuentes [facility] TYPE AND SCREEN 2023-12-26 17:19:00 Agustín [facility] EXTRA TUBE LAV (BLOOD BANK) 2023-12-26 17:19:00 Agustín [facility] HB ABO GROUPING 2023-12-26 15:08:00 Marie [facility] HB ABO GROUPING 2023-12-26 15:08:00 Marie [facility] HB ABO GROUPING 2023-12-26 15:08:00 Marie [facility] CBC WITHOUT DIFF 2023-12-26 10:09:00 Marie [facility] BASIC METABOLIC PANEL (NA, K , CL, CO2, GLUCOSE, BUN, CREATININE, CA) 2023-12-26 10:09:00 Marie [facility] BASIC METABOLIC PANEL (NA, K , CL, CO2, GLUCOSE, BUN, CREATININE, CA) 2023-12-26 10:09:00 Marie [facility] CBC WITHOUT DIFF 2023-12-26 10:09:00 Pabl[place]ia [facility] BASIC METABOLIC PANEL (NA, K , CL, CO2, GLUCOSE, BUN, CREATININE, CA) 2023-12-26 10:09:00 Marie [facility] CBC WITHOUT DIFF 2023-12-26 10:09:00 Marie [facility] CT ABDOMEN W WO CONTRAST 2023-12-23 20:17:08 Nipper, [facility] CT ABDOMEN W WO CONTRAST 2023-12-23 20:17:08 Nipper, [facility] CT ABDOMEN W WO CONTRAST 2023-12-23 20:17:08 Nipper, [facility] CT ABDOMEN W WO CONTRAST 2023-12-23 20:17:08 Nipper, [facility] BASIC METABOLIC PANEL (NA, K , CL, CO2, GLUCOSE, BUN, CREATININE, CA) 2023-12-23 17:11:00 Niproxann, [facility] CBC WITH DIFF 2023-12-23 17:11:00 Nipper, [facility] CBC WITH DIFF 2023-12-23 17:11:00 Niproxann [facility] BASIC METABOLIC PANEL (NA, K , CL, CO2, GLUCOSE, BUN, CREATININE, CA) 2023-12-23 17:11:00 Nipper, [facility] BASIC METABOLIC PANEL (NA, K , CL, CO2, GLUCOSE, BUN, CREATININE, CA) 2023-12-23 17:11:00 Nipper, [facility] CBC WITH DIFF 2023-12-23 17:11:00 Nipper, [facility] BASIC METABOLIC PANEL (NA, K , CL, CO2, GLUCOSE, BUN, CREATININE, CA) 2023-12-23 17:11:00 Nipper [facility] CBC WITH DIFF 2023-12-23 17:11:00 Delano [facility] PREPARE PACKED RBC 2023-12-22 20:24:52 Deep [facility] HAV ANTIBODY (IGG AND IGM) 2023-12-22 19:08:00 [facility] [place] [facility] [facility] HAV ANTIBODY (IGG AND IGM) 2023-12-22 19:08:00 Serena [facility] HAV ANTIBODY (IGG AND IGM) 2023-12-22 19:08:00 Serena [facility] HAV ANTIBODY (IGG AND IGM) 2023-12-22 19:08:00 Serena [facility] PREPARE PACKED RBC 2023-12-22 18:10:13 Malik [facility] PREPARE PACKED RBC 2023-12-22 17:45:18 Desirae Easton [facility] PREPARE PACKED RBC 2023-12-22 17:45:18 Desirae Easton [facility] PREPARE PACKED RBC 2023-12-22 17:45:18 Desirae Easton [facility] PREPARE PACKED RBC 2023-12-22 17:45:18 Desirae Easton [facility] HB ABO GROUPING 2023-12-22 14:17:00 Delano [facility] HB ABO GROUPING 2023-12-22 14:17:00 Delano [facility] HB ABO GROUPING 2023-12-22 14:17:00 Delano [facility] HB ABO GROUPING 2023-12-22 14:17:00 Delano [facility] INTUBATION 2023-12-22 14:10:00 Puneet Gan [facility] CYSTOSCOPY WITH EVACUATION CLOTS 2023-12 13:44:00 [facility] 2023-12 13:44:00 Giulianavirtua berlin [facility] CYSTOSCOPY WITH EVACUATION CLOTS 2023-12 13:44:00 Deep [facility] BASIC METABOLIC PANEL (NA, K , CL, CO2, GLUCOSE, BUN, CREATININE, CA) 2023-12-22 10:08:00 Ciro Wick [facility] LIPID PANEL (90766)(TOTAL CHOLESTEROL, TRIGLYCERIDES, HDL) 2023-12-22 10:08:00 Serena [facility] CBC WITHOUT DIFF 2023-12-22 10:08:00 Delano [facility] CBC WITHOUT DIFF 2023-12-22 10:08:00 Delano [facility] BASIC METABOLIC PANEL (NA, K , CL, CO2, GLUCOSE, BUN, CREATININE, CA) 2023-12-22 10:08:00 Delano [facility] LIPID PANEL (80731)(TOTAL CHOLESTEROL, TRIGLYCERIDES, HDL) 2023-12-22 10:08:00 Serena [facility] BASIC METABOLIC PANEL (NA, K , CL, CO2, GLUCOSE, BUN, CREATININE, CA) 2023-12-22 10:08:00 Delano [facility] LIPID PANEL (00382)(TOTAL CHOLESTEROL, TRIGLYCERIDES, HDL) 2023-12-22 10:08:00 Serena [facility] CBC WITHOUT DIFF 2023-12-22 10:08:00 Delano [facility] BASIC METABOLIC PANEL (NA, K , CL, CO2, GLUCOSE, BUN, CREATININE, CA) 2023-12-22 10:08:00 Delano [facility] LIPID PANEL (81301)(TOTAL CHOLESTEROL, TRIGLYCERIDES, HDL) 2023-12-22 10:08:00 Serena [facility] CBC WITHOUT DIFF 2023-12-22 10:08:00 Delano [facility] CBC WITHOUT DIFF 2023-12-21 22:04:00 Iva [facility] CBC WITHOUT DIFF 2023-12-21 22:04:00 Iva [facility] CBC WITHOUT DIFF 2023-12-21 22:04:00 Iva [facility] CBC WITHOUT DIFF 2023-12-21 22:04:00 Iva [facility] AMMONIA, PLASMA 2023-12-21 16:42:00 Oville, [facility] PROTHROMBIN TIME / INR 2023-12-21 16:42:00 Oville, [facility] ACTIVATED PARTIAL THRMPLAS RASHAD 0 9 16:42:00 Oville, [facility] PROTHROMBIN TIME / INR 2023-12-21 16:42:00 Oville, [facility] ACTIVATED PARTIAL THRMPLAS RASHAD 0 9 16:42:00 Oville, [facility] AMMONIA, PLASMA 2023-12-21 16:42:00 Oville, [facility] AMMONIA, PLASMA 2023-12-21 16:42:00 Oville, [facility] PROTHROMBIN TIME / INR 2023-12-21 16:42:00 Oville, [facility] ACTIVATED PARTIAL THRMPLAS RASHAD 0 9 16:42:00 Oville, [facility] AMMONIA, PLASMA 2023-12-21 16:42:00 Oville, [facility] PROTHROMBIN TIME / INR 2023-12-21 16:42:00 Oville, [facility] ACTIVATED PARTIAL THRMPLAS RASHAD 0 9 16:42:00 Ovclaude, [facility] TRANSFUSE PACKED RBC 2023-12-21 14:10:00 Ovclaude, [facility] TRANSFUSE PACKED RBC 2023-12-21 14:10:00 Ovclaude, [facility] TRANSFUSE PACKED RBC 2023-12-21 14:10:00 Ovclaude, [facility] TRANSFUSE PACKED RBC 2023-12-21 14:10:00 Ovclaude, [facility] MAGNESIUM 2023-12-21 08:29:00 Ovclaude [facility] HEPATIC FUNCTION PANEL (8007 6) (ALB,T.PRO,BILI T,BU/BC,ALT,AST,ALK PHOS) 2023-12-21 08:29:00 Roque [facility] BASIC METABOLIC PANEL (NA, K , CL, CO2, GLUCOSE, BUN, CREATININE, CA) 2023-12-21 08:29:00 Roque, [facility] CBC WITH DIFF 2023-12-21 08:29:00 Otilia San [facility] BASIC METABOLIC PANEL (NA, K , CL, CO2, GLUCOSE, BUN, CREATININE, CA) 2023-12-21 08:29:00 [facility]-21 08:29:00 Ovcluade, [facility] CBC WITH DIFF 2023-12-21 08:29:00 Otilia San [facility] HEPATIC FUNCTION PANEL (8007 6) (ALB,T.PRO,BILI T,BU/BC,ALT,AST,ALK PHOS) 2023-12-21 08:29:00 Roque [facility] MAGNESIUM 2023-12-21 08:29:00 Roque [facility] HEPATIC FUNCTION PANEL (8007 6) (ALB,T.PRO,BILI T,BU/BC,ALT,AST,ALK PHOS) 2023-12-21 08:29:00 Roque [facility] BASIC METABOLIC PANEL (NA, K , CL, CO2, GLUCOSE, BUN, CREATININE, CA) 2023-12-21 08:29:00 Roque [facility] CBC WITH DIFF 2023-12-21 08:29:00 Otilia [facility] MAGNESIUM 2023-12-21 08:29:00 Roque [facility] HEPATIC FUNCTION PANEL (8007 6) (ALB,T.PRO,BILI T,BU/BC,ALT,AST,ALK PHOS) 2023-12-21 08:29:00 Roque [facility] BASIC METABOLIC PANEL (NA, K , CL, CO2, GLUCOSE, BUN, CREATININE, CA) 2023-12-21 08:29:00 Roque [facility] CBC WITH DIFF 2023-12-21 08:29:00 Otilia San [facility] TRANSFUSE PACKED RBC 2023-12-21 02:13:00 Desirae Easton [facility] TRANSFUSE PACKED RBC 2023-12-21 02:13:00 Desirae Easton [facility] TRANSFUSE PACKED RBC 2023-12-21 02:13:00 Desirae Easton Jazmin [facility] TRANSFUSE PACKED RBC 2023-12-21 02:13:00 Desirae Easton Jazmin [facility] PREPARE PACKED RBC 2023-12-21 01:55:17 Desirae Easton [facility] PREPARE PACKED RBC 2023-12-21 01:55:17 Desirae Easton Jazmin [facility] PREPARE PACKED RBC 2023-12-21 01:55:17 Desirae Easton Jazmin [facility] PREPARE PACKED RBC 2023-12-21 01:55:17 Desirae Easton Jazmin [facility] FERRITIN SERUM 2023-12-20 19:12:00 Roque [facility] IRON PANEL 2023-12-20 19:12:00 Otilia [facility] VITAMIN B12, LEVEL 2023-12-20 19:12:00 Roque [facility] FOLATE 2023-12-20 19:12:00 Roque [facility] TOTAL IRON BINDING CAPACITY 2023-12-20 19:12:00 Roque [facility] FREE T4 2023-12-20 19:12:00 Roque [facility] HEPATITIS B SURFACE ANTIBODY 2023-12-20 19:12:00 Serena [facility] HEPATITIS B SURFACE ANTIGEN 2023-12-20 19:12:00 Serena [facility] HCV ANTIBODY 2023-12-20 19:12:00 Serena [facility] HEPATITIS B CORE ANTIBODY IGM 2023-12-20 19:12:00 Serena [facility] TOTAL IRON BINDING CAPACITY 2023-12-20 19:12:00 Roque [facility] IRON PANEL 2023-12-20 19:12:00 Otilia [facility] FERRITIN SERUM 2023-12-20 19:12[facility]20 19:12:00 Roque [facility] VITAMIN B12, LEVEL 2023-12-20 19:12:00 Roque [facility] FREE T4 2023-12-20 19:12:00 Roque [facility] HCV ANTIBODY 2023-12-20 19:12:00 Serena [facility] HEPATITIS B CORE ANTIBODY IGM 2023-12-20 19:12:00 Serena [facility] HEPATITIS B SURFACE ANTIGEN 2023-12-20 19:12:00 Serena [facility] HEPATITIS B SURFACE ANTIBODY 2023-12-20 19:12:00 Seerna [facility] FERRITIN SERUM 2023-12-20 19:12:00 Roque [facility] IRON PANEL 2023-12-20 19:12:00 Otilia [facility] VITAMIN B12, LEVEL 2023-12-20 19:12:00 Roque [facility] FOLATE 2023-12-20 19:12:00 Roque [facility] TOTAL IRON BINDING CAPACITY 2023-12-20 19:12:00 Roque [facility] FREE T4 2023-12-20 19:12:00 Roque [facility] HEPATITIS B SURFACE ANTIBODY 2023-12-20 19:12:00 Serena [facility] HEPATITIS B SURFACE ANTIGEN 2023-12-20 19:12:00 Serena [facility] HCV ANTIBODY 2023-12-20 19:12:00 Serena [facility] HEPATITIS B CORE ANTIBODY IGM 2023-12-20 19:12:00 Serena [facility] FERRITIN SERUM 2023-12-20 19:12:00 Roque [facility] IRON PANEL 2023-12-20 19:12:00 Otilia [facility] VITAMIN B12, LEVEL 2023-12-20 19:12:00 Roque [facility] FOLATE 2023-12-20 19:12:00 Roque [facility] TOTAL IRON BINDING CAPACITY 2023-12-20 19:12:00 Roque [facility] FREE T4 2023-12-20 19:12:00 Roque [facility] HEPATITIS B SURFACE ANTIBODY 2023-12-20 19:12:00 Serena [facility] HEPATITIS B SURFACE ANTIGEN 2023-12-20 19:12:00 Serena [facility] HCV ANTIBODY 2023-12-20 19:12:00 Serena [facility] HEPATITIS B CORE ANTIBODY IGM 2023-12-20 19:12:00 Serena [facility] HB ABO GROUPING 2023-12-20 16:11:00 Desirae Easton [facility] HB ABO GROUPING 2023-12-20 16:11:00 Desirae Easton [facility] HB ABO GROUPING 2023-12-20 16:11:00 Desirae Easton [facility] HB ABO GROUPING 2023-12-20 16:11:00 Desirae Easton [facility] EKG-12 LEAD 2023-12-20 16:07:32 Doctor Unassigned, [place] [facility] EKG-12 LEAD 2023-12-20 16:07:32 Doctor Unassigned, [place] [facility] EKG-12 LEAD 2023-12-20 16:07:32 Doctor Unassigned, [place] [facility] EKG-12 LEAD 2023-12-20 16:07:32 Doctor Unassigned, [place] [facility] CT ABDOMEN PELVIS W CONTRAST 2023-12-20 16:01:23 Desirae Easton [facility] CT ABDOMEN PELVIS W CONTRAST 2023-12-20 16:01:23 Desirae Easton [facility] CT ABDOMEN PELVIS W CONTRAST 2023-12-20 16:01:23 Desirae Easton [facility] CT ABDOMEN PELVIS W CONTRAST 2023-12-20 16:01:23 Desirae Easton [facility] DUPLEX VENOUS LEG LEFT - BY VASCULAR LAB 2023-12-20 15:50:58 Desirae Easton [facility] DUPLEX VENOUS LEG LEFT - BY VASCULAR LAB 2023-12-20 15:50:58 Desirae Easton [facility] DUPLEX VENOUS LEG LEFT - BY VASCULAR LAB 2023-12-20 15:50:58 Desirae Easton [facility] DUPLEX VENOUS LEG LEFT - BY VASCULAR LAB 2023-12-20 15:50:58 Desirae Easton [facility] MAGNESIUM 2023-12-20 14:20:00 Ovclaude [facility] THYROID STIMULATING HORMONE 2023-12-20 14:20:00 Ovclaude [facility] COMP. METABOLIC PANEL (29579) 2023-12-20 14:20:00 Desirae Easton [facility] CBC WITH DIFF 2023-12-20 14:20:00 Desirae Easton Jazmin [facility] FREE T3 2023-12-20 14:20:00 Ovclaude [facility] CBC WITH DIFF 2023-12-20 14:20:00 Desirae Easton Jazmin [facility] COMP. METABOLIC PANEL (86206) 2023-12-20 14:20:00 Desirae Easton [facility] MAGNESIUM 2023-12-20 14:20:00 Ovclaude [facility] THYROID STIMULATING HORMONE 2023-12-20 14:20:00 Ovclaude [facility] FREE T3 2023-12-20 14:20:00 Ovclaude [facility] MAGNESIUM 2023-12-20 14:20:00 Ovclaude [facility] THYROID STIMULATING HORMONE 2023-12-20 14:20:00 Ovclaude [facility] COMP. METABOLIC PANEL (66787) 2023-12-20 14:20:00 Desirae Easton Jazmin [facility] CBC WITH DIFF 2023-12-20 14:20:00 Desirae Easton [facility] FREE T3 2023-12-20 14:20:00 Dayan Nevarez [facility] MAGNESIUM 2023-12-20 14:20[facility] 2023-12-20 14:20:00 Dayan Nevarez [facility] COMP. METABOLIC PANEL (62198) 2023-12-20 14:20:00 Desirae Easton [facility] CBC WITH DIFF 2023-12-20 14:20:00 Desirae Easton [facility] FREE T3 2023-12-20 14:20:00 Dayan Nevarez [facility] URINALYSIS 2023-12-20 14:11:00 Desirae Easton [facility] URINE CULTURE 2023-12-20 14:11:00 Desirae Easton [facility] URINALYSIS 2023-12-20 14:11:00 JemmaDesirae lai [facility] URINE CULTURE 2023-12-20 14:11:00 JemmaDesirae lai [facility] URINALYSIS 2023-12-20 14:11:00 JemmaDesirae lai [facility] URINE CULTURE 2023-12-20 14:11:00 Jemma, K Jazmin [facility] URINALYSIS 2023-12-20 14:11:00 JemmaDesirae lai [facility] URINE CULTURE 2023-12-20 14:11:00 JemmaDesirae mitchell [facility] POCT URINALYSIS 2023-03-29 19:15:00 Jonatan Diez [facility] REFERRAL- REQUEST/RESPONSE 2023-03-28 06:01:00 Doctor Unassigned, [place] [facility] POCT URINALYSIS AUTO 2023-02-16 15:24:00 Jacky Almeida [facility] DISCLOSURE AND CONSENT, MEDI BEN AND SURGICAL PROCEDURES 2023-02-16 05:01:00 Doctor Unassigned, [place] [facility] CONSENT/REFUSAL FOR DIAGNOSI S AND TREATMENT 2023-02-02 15:11:45 Doctor Unassigned, [place] [facility] POCT URINALYSIS W/O SPECIFIC GRAVITY 2023-02-02 00:00:00 Jacky Almeida [facility] COLONOSCOPY 2023-01-23 14:20:00 Leroy Martel [facility] COLONOSCOPY (ENDO) 2023-01-23 14:01:49 Ginette Denton [facility] COLONOSCOPY (ENDO) 2023-01-23 14:01:49 Ginette Denton [facility] COLONOSCOPY (ENDO) 2023-01-23 14:01:49 Ginette Denton [facility] CBC WITHOUT DIFF 2023-01-23 13:51:00 Glen Carroll [facility] CBC WITHOUT DIFF 2023-01-23 13:51:00 Glen Carroll [facility] ASSIGNMENT OF BENEFITS 2023-01-23 12:34:48 Doctor Unassigned, [place] [facility] MAGNESIUM 2022-11-23 10:26:00 Oscar Madden [facility] BASIC METABOLIC PANEL (NA, K , CL, CO2, GLUCOSE, BUN, CREATININE, CA) 2022-11-23 10:26:00 Oscar Madden [facility] CBC WITH DIFF 2022-11-23 10:26:00 Oscar Madden [facility] FL SMALL BOWEL SERIES 2022-11-22 19:45:39 Sruthi Mckenna [facility] XR ABDOMEN 2 VW 2022-11-22 11:25:00 Yo Greer [facility] MAGNESIUM 2022-11-22 10:04:00 Yo Greer [facility] THYROID STIMULATING HORMONE 2022-11-22 10:04:00 Oscar Madden [facility] BASIC METABOLIC PANEL (NA, K , CL, CO2, GLUCOSE, BUN, CREATININE, CA) 2022-11-22 10:04:00 Yo Greer [facility] CBC WITH DIFF 2022-11-22 10:04:00 Yo Greer [facility] PROTHROMBIN TIME / INR 2022-11-22 10:04:00 Yo Greer [facility] ACTIVATED PARTIAL THRMPLAS RASHAD 2022-11-11 2 10:04:00 Yo Greer [facility] CT ABDOMEN PELVIS W CONTRAST 2022-11-21 22:28:55 Otilia Gracia [facility] HB ECG ROUTINE & RHYTHM STRIP 2022-11-21 19:13:01 Otilia Gracia [facility] LIPASE 2022-11-21 18:41:00 Otilia Gracia [facility] TROPONIN I 2022-11-21 18:41:00 Otilia Gracia [facility] COMP. METABOLIC PANEL (84901) 2022-11-21 18:41:00 Otilia Gracia [facility] CBC WITH DIFF 2022-11-21 18:41:00 Otilia Gracia [facility] URINALYSIS 2022-11-21 18:41:00 Otilia Gracia [facility] CONSENT/REFUSAL FOR DIAGNOSI S AND TREATMENT 2022-11-21 18:10:10 Doctor Unassigned, [place] [facility] DISCLOSURE AND CONSENT, [facility] BEN AND SURGICAL PROCEDURES 2022-11-04 05:01:00 Doctor Unassigned, [place] [facility] POCT URINALYSIS AUTO 2022-11-03 14:07:00 Jacky Almeida [facility] URINE CULTURE 2022-10-26 20:56:00 Jacky Almeida [facility] DISCLOSURE AND CONSENT, [facility] BEN AND SURGICAL PROCEDURES 2022-10-18 05:01:00 Doctor Unassigned, [place] [facility] DISCLOSURE AND CONSENT, MEDI BEN AND SURGICAL PROCEDURES 2022-10-18 05:01:00 Doctor Unassigned, [place] [facility] EXTERNAL PROVIDER RECORDS 2022-10-03 05:01:00 Doctor Unassigned, [place] [facility] REFERRAL- REQUEST/RESPONSE 2022-09-12 05:01:00 Doctor Unassigned, [place] [facility] BASIC METABOLIC PANEL (NA, K , CL, CO2, GLUCOSE, BUN, CREATININE, CA) 2022-05-18 14:48:00 Stewart Castaneda [facility] PHYSICIAN ORDERS 2022-05-18 06:01:00 Doctor Unassigned, [place] [facility] COLONOSCOPY 2022-04-21 13:27:00 Radha Pena [facility] COLONOSCOPY (ENDO) 2022-04-21 13:03:53 Larry Campbell [facility] COLONOSCOPY (ENDO) 2022-04-21 13:03:53 Larry Campbell [facility] DAY SURGERY - ADC 2022-04-21 06:01:00 Doctor Unassigned, [place] [facility] POCT URINALYSIS W/O SPECIFIC GRAVITY 2022-03-10 15:47:00 Jacky Almeida [facility] PATIENT QUESTIONNAIRE 2022-03-10 05:01:00 Doctor Unassigned, [place] [facility] EXTERNAL PROVIDER RECORDS 2022-02-28 05:01:00 Doctor Unassigned, [place] [facility] PHYSICIAN ORDERS 2022-02-16 05:01:00 Doctor Unassigned, [place] [facility] BI SCREENING MAMMOGRAM BILATERAL 2014-10 19:36:00 Kristie Quinonez [facility] HIGH RISK HPV 2014-09-16 23:10:00 Kristie Quinonez [facility] LUMBER SCALER ORDER/REPORT PROCEDURE 2014-09-16 16:50:00 Kristie Quinonez [facility] Plan of Care Planned Activity Planned Date Details Comments Source Goal Plan of Care Note [code = 45622-8] Goal Plan of Care Note [code = 63531-3] Goal Plan of Care Note [code = 95888-4] Goal Plan of Care Note [code = 58971-3] Goal Plan of Care Note [code = 86158-0] Goal Plan of Care Note [code = 35134-6] Goal Plan of Care Note [code = 94162-1] Goal Plan of Care Note [code = 72896-9] Goal Plan of Care Note [code = 28200-7] Goal Plan of Care Note [code = 62754-6] Goal Plan of Care Note [code = 79071-3] Goal Plan of Care Note [code = 71164-2] Goal Plan of Care Note [code = 51301-9] Goal Plan of Care Note [code = 40852-3] Goal Plan of Care Note [code = 98336-8] Goal Plan of Care Note [code = 91263-9] Goal Plan of Care Note [code = 37265-5] Goal Plan of Care Note [code = 79277-7] Goal Plan of Care Note [code = 20206-1] Goal Plan of Care Note [code = 03478-7] Goal Plan of Care Note [code = 41192-7] Goal Plan of Care Note [code = 08179-4] Goal Plan of Care Note [code = 82430-0] Goal Plan of Care Note [code = 98802-9] Goal Plan of Care Note [code = 29845-7] Goal Plan of Care Note [code = 49387-3] Goal Plan of Care Note [code = 26579-8] Goal Plan of Care Note [code = 82343-6] Goal Plan of Care Note [code = 17716-4] Goal Plan of Care Note [code = 52513-0] Goal Plan of Care Note [code = 67635-0] Goal Plan of Care Note [code = 04280-8] Goal Plan of Care Note [code = 89764-0] Goal Plan of Care Note [code = 07779-6] Goal Plan of Care Note [code = 21357-8] Goal Plan of Care Note [code = 77752-8] Goal Plan of Care Note [code = 13783-5] Goal Plan of Care Note [code = 37513-2] Goal Plan of Care Note [code = 48262-4] Goal Plan of Care Note [code = 92133-8] Goal Plan of Care Note [code = 13517-0] Goal Plan of Care Note [code = 44084-8] Goal Plan of Care Note [code = 21020-0] Goal Plan of Care Note [code = 64677-0] Goal Plan of Care Note [code = 35075-6] Goal Plan of Care Note [code = 02048-4] Goal Plan of Care Note [code = 26035-9] Goal Plan of Care Note [code = 70192-4] Goal Plan of Care Note [code = 81740-7] Goal Plan of Care Note [code = 45125-4] Goal Plan of Care Note [code = 02668-3] Goal Plan of Care Note [code = 96977-4] Goal Plan of Care Note [code = 14354-7] Goal Plan of Care Note [code = 31841-3] Goal Plan of Care Note [code = 23123-5] Goal Plan of Care Note [code = 92256-6] Goal Plan of Care Note [code = 42880-1] Goal Plan of Care Note [code = 67770-2] Goal Plan of Care Note [code = 90580-9] Goal Plan of Care Note [code = 74182-0] Goal Plan of Care Note [code = 55524-0] Goal Plan of Care Note [code = 89527-4] Goal Plan of Care Note [code = 52909-0] Goal Plan of Care Note [code = 93313-2] Goal Plan of Care Note [code = 77289-7] Goal Plan of Care Note [code = 87284-1] Goal Plan of Care Note [code = 41470-6] Goal Plan of Care Note [code = 52627-9] Goal Plan of Care Note [code = 26601-1] Goal Plan of Care Note [code = 03085-1] Goal Plan of Care Note [code = 28525-4] Goal Plan of Care Note [code = 58058-2] Goal Plan of Care Note [code = 20734-2] Goal Plan of Care Note [code = 80617-8] Goal Plan of Care Note [code = 67662-3] Goal Plan of Care Note [code = 72440-2] Goal Plan of Care Note [code = 93235-2] Goal Plan of Care Note [code = 40262-4] Goal Plan of Care Note [code = 08049-9] Goal Plan of Care Note [code = 39126-0] Goal Plan of Care Note [code = 08998-1] Goal Plan of Care Note [code = 43434-4] Goal Plan of Care Note [code = 41851-6] Goal Plan of Care Note [code = 64113-0] Goal Plan of Care Note [code = 75127-6] Goal Plan of Care Note [code = 79470-4] Goal Plan of Care Note [code = 71866-5] Goal Plan of Care Note [code = 27220-9] Goal Plan of Care Note [code = 34859-0] Goal Plan of Care Note [code = 78424-1] Goal Plan of Care Note [code = 47593-9] Goal Plan of Care Note [code = 53127-3] Goal Plan of Care Note [code = 22109-6] Goal Plan of Care Note [code = 41685-2] Goal Plan of Care Note [code = 60340-8] Goal Plan of Care Note [code = 58488-0] Goal Plan of Care Note [code = 88662-5] Goal Plan of Care Note [code = 53074-4] Goal Plan of Care Note [code = 50441-7] Goal Plan of Care Note [code = 41922-4] Goal Plan of Care Note [code = 75645-2] Goal Plan of Care Note [code = 65139-3] Goal Plan of Care Note [code = 88715-9] Goal Plan of Care Note [code = 33219-8] Goal Plan of Care Note [code = 91995-2] Goal Plan of Care Note [code = 47132-1] Goal Plan of Care Note [code = 39133-4] Goal Plan of Care Note [code = 24393-5] Goal Plan of Care Note [code = 78138-1] Goal Plan of Care Note [code = 22869-5] Goal Plan of Care Note [code = 32960-0] Goal Plan of Care Note [code = 30777-0] Goal Plan of Care Note [code = 98451-6] Goal Plan of Care Note [code = 39533-9] Goal Plan of Care Note [code = 12781-0] Goal Plan of Care Note [code = 99919-4] Goal Plan of Care Note [code = 63706-5] Goal Plan of Care Note [code = 19769-3] Goal Plan of Care Note [code = 41168-0] Goal Plan of Care Note [code = 78389-3] Goal Plan of Care Note [code = 31994-0] Goal Plan of Care Note [code = 27796-9] Goal Plan of Care Note [code = 76015-3] Goal Plan of Care Note [code = 73949-1] Goal Plan of Care Note [code = 45087-4] Goal Plan of Care Note [code = 23170-6] Goal Plan of Care Note [code = 21588-7] Goal Plan of Care Note [code = 04618-6] Goal Plan of Care Note [code = 47743-3] Goal Plan of Care Note [code = 92886-0] Goal Plan of Care Note [code = 20349-6] Goal Plan of Care Note [code = 36401-6] Goal Plan of Care Note [code = 84800-8] Goal Plan of Care Note [code = 95739-8] Goal Plan of Care Note [code = 83799-8] Goal Plan of Care Note [code = 34187-5] Goal Plan of Care Note [code = 15426-2] Goal Plan of Care Note [code = 05675-7] Goal Plan of Care Note [code = 61398-2] Goal Plan of Care Note [code = 65249-8] Goal Plan of Care Note [code = 94665-7] Goal Plan of Care Note [code = 95560-4] Goal Plan of Care Note [code = 18116-8] Goal Plan of Care Note [code = 37376-5] Goal Plan of Care Note [code = 27148-5] Goal Plan of Care Note [code = 81637-9] Goal Plan of Care Note [code = 70404-8] Goal Plan of Care Note [code = 56196-8] Goal Plan of Care Note [code = 26024-6] Goal Plan of Care Note [code = 64778-7] Goal Plan of Care Note [code = 94613-5] Goal Plan of Care Note [code = 52217-0] Goal Plan of Care Note [code = 04577-0] Goal Plan of Care Note [code = 08597-5] Goal Plan of Care Note [code = 64394-2] Goal Plan of Care Note [code = 30039-2] Goal Plan of Care Note [code = 33126-7] Goal Plan of Care Note [code = 35390-6] Goal Plan of Care Note [code = 04329-1] Goal Plan of Care Note [code = 05024-4] Goal Plan of Care Note [code = 88805-6] Goal Plan of Care Note [code = 13415-0] Goal Plan of Care Note [code = 77349-0] Goal Plan of Care Note [code = 25240-7] Goal Plan of Care Note [code = 38247-5] Goal Plan of Care Note [code = 25107-3] Goal Plan of Care Note [code = 44860-3] Goal Plan of Care Note [code = 75694-4] Goal Plan of Care Note [code = 29387-4] Goal Plan of Care Note [code = 85829-4] Goal Plan of Care Note [code = 74303-8] Goal Plan of Care Note [code = 84319-7] Goal Plan of Care Note [code = 05884-7] Goal Plan of Care Note [code = 94881-7] Goal Plan of Care Note [code = 99726-1] Goal Plan of Care Note [code = 52012-5] Goal Plan of Care Note [code = 29915-4] Goal Plan of Care Note [code = 12189-7] Goal Plan of Care Note [code = 85133-8] Goal Plan of Care Note [code = 60794-8] Goal Plan of Care Note [code = 85018-6] Goal Plan of Care Note [code = 57666-1] Goal Plan of Care Note [code = 32366-8] Goal Plan of Care Note [code = 11864-2] Goal Plan of Care Note [code = 80350-2] Goal Plan of Care Note [code = 11408-2] Goal Plan of Care Note [code = 20829-5] Goal Plan of Care Note [code = 22769-7] Goal Plan of Care Note [code = 27170-6] Goal Plan of Care Note [code = 23101-9] Goal Plan of Care Note [code = 65610-3] Goal Plan of Care Note [code = 82708-0] Goal Plan of Care Note [code = 57460-3] Goal Plan of Care Note [code = 24592-7] Goal Plan of Care Note [code = 94258-0] Encounters Start Date/Time End Date/Time Encounter Type Admission Type Attending [facility] Care Department Encounter ID Source 2024-03-17 16:30:00 2024-03-17 16:30:00 Outpatient JONATAN MONTIEL [facility] [id number] [facility] 2024-02-15 08:34:23 2024-02-15 08:34:23 Outpatient [facility] [id number] Jonatan Eason 2024-02-13 15:28:12 2024-02-13 15:28:12 Outpatient KALI [facility] [id number] Jonatan Eason 2024-02-12 14:46:01 2024-02-12 14:46:01 Outpatient [facility] [id number] Jonatan Eason 2024-02-12 00:00:00 2024-02-12 00:00:00 Outpatient Visit [facility] [id number] Jonatan Eason 2024-02-11 08:08:08 2024-02-11 08:08:08 Outpatient [facility] [id number] Jonatan Eason 2024-01-08 00:00:00 2024-02-09 18:21:54 Patient Secure Msg Doctor Unassigned, [place] Doctor Unassigned, [place] [facility] ([facility] 1.2.840.114 350.1.13.10 4.2.7.2.686 [id number] [facility] 2024-02-08 18:39:39 2024-02-08 18:39:39 Outpatient [facility] [id number] Jonatan Eason 2024-02-08 00:00:00 2024-02-08 00:00:00 Outpatient Visit [facility] [id number] [id number] [id number] Jonatan Barber Jenaro 2024-02-07 00:00:00 2024-02-07 10:19:02 Telephone Bertin Adame [facility] ([facility] 1.2.840.114 350.1.13.10 4.2.7.2.686 [id number] [facility] 2024-02-06 16:20:00 2024-02-06 16:20:00 Outpatient [facility] [id number] [facility] 2024-02-06 00:00:00 2024-02-06 00:00:00 Outpatient [facility] A[facility] PATR[facility] [id number] [facility] 2024-02-02 23:26:00 2024-02-05 17:57:00 Hospital Encounter Justyn Garrison Pawel NoahChato Greer Delmar [facility] ([facility]) 1.2.840.114 350.1.13.10 4.2.7.2.686 [id number] [id number] [facility] 2024-02-04 12:40:00 2024-02-04 14:18:00 Surgery Giuliananiurka Bertin [facility] 1.2.840.114 350.1.13.10 4.2.7.2.686 [id number] [facility] 2024-02-02 08:57:46 2024-02-02 08:57:46 Outpatient [facility] [id number] Jonatan Eason 2024-02-02 00:00:00 2024-02-02 00:00:00 Outpatient Visit [facility] [id number] Jonatan Eason 2024-01-25 12:00:00 2024-01-25 12:15:00 Termite Exterminator Helper Visit Draw, [facility] Jonatan Diez Draw, [facility] Lab [facility] 1.2.840.114 350.1.13.10 4.2.7.2.686 [id number] [facility] 2024-01-25 12:00:00 2024-01-25 12:00:00 Outpatient JONATAN MONTIEL [facility] [id number] [facility] 2024-01-25 11:45:00 2024-01-25 12:00:00 Office Visit Jonatan Diez [facility] 1.2.840.114 350.1.13.10 4.2.7.2.686 [id number] [facility] 2023-12-20 08:49:00 2024-01-04 22:43:00 Inpatient [facility] VILLALTA PATRICK [facility] [id number] [facility] 2023-12-20 08:49:00 2024-01-04 22:43:00 Hospital Encounter Desirae Easton, Dayan Adame, Bertin Randolph, Bertin Braxton 1.2.840.1 09060.1.1 3.104.2.7 .3.363472 .8 [id number] [facility] 2024-01-03 11:55:00 2024-01-03 14:50:00 Anesthesia Event Elmer Egan Edgar 1.2.840.1 88430.1.1 3.104.2.7 .3.712235 .8 [id number] [facility] 2024-01-03 00:00:00 2024-01-03 00:00:00 Travel 1.2.840.1 63079.1.1 3.104.2.7 .3.176860 .8 1.2.840.114 350.1.13.10 4.2.7.3.698 084.8 [id number] [facility] 2023-12-31 12:56:00 2023-12-31 19:19:00 Anesthesia Event Rachel Lange Adam Nabeel [facility] ([facility]) 1.2.840.114 350.1.13.10 4.2.7.2.686 [id number] [facility] 2023-12-28 00:00:00 2023-12-28 00:00:00 Orders Only Doctor Unassigned, [place] 1.2.840.1 80992.1.1 3.104.2.7 .3.244800 .8 [id number] [facility] 2023-12-27 10:00:00 2023-12-27 10:33:00 Surgery Hank Andrew 1.2.840.1 02628.1.1 3.104.2.7 .3.410933 .8 [id number] [facility] 2023-12-27 10:02:00 2023-12-27 10:19:00 Anesthesia Event Len Elizabeth 1.2.840.1 06534.1.1 3.104.2.7 .3.691318 .8 [id number] [facility] 2023-12-27 07:40:22 2023-12-27 07:40:22 Anesthesia Event Len Elizabeth 1.2.840.1 01630.1.1 3.104.2.7 .3.801408 .8 [id number] [facility] 2023-12-22 09:41:00 2023-12-22 11:16:00 Surgery Giuliananiurka Bertin 1.2.840.1 12311.1.1 3.104.2.7 .3.105831 .8 [id number] [facility] 2023-12-22 09:00:00 2023-12-22 10:38:00 Anesthesia Event Bullock Kath Garza 1.2.840.1 84840.1.1 3.104.2.7 .3.693277 .8 [id number] [facility] 2023-12-20 00:00:00 2023-12-20 00:00:00 Travel 1.2.840.1 87137.1.1 3.104.2.7 .3.332191 .8 1.2.840.114 350.1.13.10 4.2.7.3.698 084.8 [id number] [facility] 2023-06-27 15:21:02 2023-06-27 15:21:02 Outpatient [facility] [id number] Jonatan Barber Jenaro 2023-05-21 13:57:27 2023-05-21 13:57:27 Outpatient [facility] [id number] Jonatan Eason 2023-03-30 00:00:00 2023-03-30 00:00:00 Patient Secure Msg Doctor Unassigned, [place] [facility] 1.2.840.114 350.1.13.10 4.2.7.2.686 [id number] [facility] 2023-03-29 13:00:00 2023-03-29 15:17:26 Outpatient JONATAN MONTIEL [facility] [id number] [facility] 2023-03-29 13:00:00 2023-03-29 14:00:00 Office Visit Jonatan Diez 2, Nelly Mda Procedure [facility] 1.2840.114 350.1.13.10 4.2.7.2.686 [id number] [facility] 2023-03-28 00:00:00 2023-03-28 00:00:00 Orders Only Doctor Unassigned, [place] [facility] 1.840.114 350.1.13.10 4.2.7.2.686 [id number] [facility] 2023-03-27 13:05:56 2023-03-27 13:05:56 Outpatient [facility] [id number] Jonatan Eason 2023-03-13 00:00:00 2023-03-13 00:00:00 Outpatient GC_GCBZW_Ka diyala_S PRIV PRIV [id number] [facility] 2023-03-12 15:00:00 2023-03-12 15:00:00 Outpatient JONATAN MONTIEL [facility] [id number] [facility] 2023-03-12 00:00:00 2023-03-12 00:00:00 Outpatient GC_GCBZW_Ka diyala_S PRIV PRIV [id number] [facility] 2023-02-28 15:31:28 2023-02-28 15:31:28 Outpatient [facility] [id number] Jonatan F Jenaro 2023-02-16 10:00:00 2023-02-16 11:39:04 Outpatient JACKY VALENTIN ELISHA [facility] [id number] [facility] 2023-02-16 10:00:00 2023-02-16 11:39:04 Office Visit Jacky Almeida [facility] 1.2840.114 350.1.13.10 4.2.7.2.686 [id number] [id number] [facility] 2023-02-16 00:00:00 2023-02-16 00:00:00 Orders Only Doctor Unassigned, [place] [facility] 1.2840.114 350.1.13.10 4.2.7.2.686 [id number] [facility] 2023-02-16 00:00:00 2023-02-16 00:00:00 Telephone Jonatan Diez [facility] 1.84.114 350.1.13.10 4.2.7.2.686 [id number] [facility] 2023-02-02 10:30:00 2023-02-02 11:28:17 Outpatient [facility] [id number] [facility] 2023-02-02 10:30:00 2023-02-02 11:28:17 Office Visit Jacky Almeida [facility] 1.284.114 350.1.13.10 4.2.7.2.686 [id number] [id number] [facility] 2023-02-02 00:00:00 2023-02-02 00:00:00 Orders Only Doctor Unassigned, [place] [facility] 1.20.114 350.1.13.10 4.2.7.2.686 [id number] [facility] 2023-01-25 00:00:00 2023-01-25 00:00:00 Patient Secure Leroy Plasencia [facility] 1.2.840.114 350.1.13.10 4.2.7.2.686 [id number] [facility] 2023-01-23 07:34:00 2023-01-23 10:59:00 Outpatient R DELONTE LEROY [facility] [id number] [facility] 2023-01-23 07:34:00 2023-01-23 10:59:00 Hospital Encounter Delonte Leroy [facility] 1.2.840.114 350.1.13.10 4.2.7.2.686 [id number] [facility] 2023-01-23 09:30:00 2023-01-23 10:10:00 Anesthesia Event Rasheeda Conde Julian [facility] [place] [facility] 1.2.840.114 350.1.13.10 4.2.7.2.686 [id number] [id number] [facility] 2023-01-23 09:00:00 2023-01-23 09:45:00 Surgery [facility] [place] [facility] 1.2.840.114 350.1.13.10 4.2.7.2.686 [id number] [id number] [facility] 2023-01-23 00:00:00 2023-01-23 00:00:00 Orders Only Doctor Unassigned, [place] [facility] 1.2.840.114 350.1.13.10 4.2.7.2.686 [id number] [facility] 2023-01-19 00:00:00 2023-01-19 00:00:00 Telephone Edward Ramírez [facility] 1.2840.114 350.1.13.10 4.2.7.2.686 [id number] [id number] [facility] 2023-01-18 00:00:00 2023-01-18 00:00:00 Patient Secure Msg Doctor Unassigned, [place] [facility] 1.2.840.114 350.1.13.10 4.2.7.2.686 [id number] [facility] 2022-12-21 09:14:46 2022-12-21 09:14:46 Outpatient [facility] [id number] Jonatan Barber [place] 2022-12-20 14:17:51 2022-12-20 14:17:51 Outpatient [facility] [id number] Jonatan Barber [place] 2022-12-05 00:00:00 2022-12-05 00:00:00 Patient Secure Msg Doctor Unassigned, [place] [facility] 1.2840.114 350.1.13.10 4.2.7.2.686 [id number] [id number] [facility] 2022-11-24 00:00:00 2022-11-24 00:00:00 Transition of Care Tressa Hedrick [place] 1.2.840.114 350.1.13.10 4.2.7.2.686 [id number] [facility] 2022-11-21 13:22:00 2022-11-23 15:29:00 Inpatient X YO GREER [facility] [id number] [facility] 2022-11-21 13:22:00 2022-11-23 15:29:00 Hospital Encounter Otilia Gracia Mohammad A. [facility] 1.2840.114 350.1.13.10 4.2.7.2.686 [id number] [facility] 2022-11-04 00:00:00 2022-11-04 00:00:00 Orders Only Doctor Unassigned, [place] [facility] 1.2.840.114 350.1.13.10 4.2.7.2.686 [id number] [facility] 2022-11-03 09:00:00 2022-11-03 10:27:56 Outpatient R LAWANDA ALMEIDAJUAN ALMEIDA [facility] [id number] [facility] 2022-11-03 09:00:00 2022-11-03 10:27:56 [facility] 1.2.840.114 350.1.13.10 4.2.7.2.686 [id number] [facility] 2022-10-27 13:00:00 2022-10-27 13:00:00 Outpatient Jason JUAN PABLOLAWANDAJUAN ALMEIDA [facility] [id number] [facility] 2022-10-26 15:00:00 2022-10-26 16:02:54 Termite Exterminator Helper Visit Lab, Terry Almeida [facility] 1..840.114 350.1.13.10 4.2.7.2.686 [id number] [facility] 2022-10-26 15:00:00 2022-10-26 15:00:00 Outpatient JACKY VALENTIN JUAN PABLO [facility] [id number] [facility] 2022-10-26 00:00:00 2022-10-26 00:00:00 Telephone Juan PabloLawandaha [facility] 1..840.114 350.1.13.10 4.2.7.2.686 [id number] [id number] [facility] 2022-10-20 00:00:00 2022-10-20 00:00:00 Telephone Edward Ramírez [facility] 1..840.114 350.1.13.10 4.2.7.2.686 [id number] [id number] [facility] 2022-10-17 11:30:00 2022-10-17 11:55:40 Outpatient KENNY BILLY [facility] [id number] [facility] 2022-10-17 11:30:00 2022-10-17 11:55:40 Office Visit Edward Ramírez Adama Kenny Merrill [facility] 1.2.840.114 350.1.13.10 4.2.7.2.686 [id number] [facility] 2022-10-10 10:00:00 2022-10-10 10:00:00 Outpatient KENNY BILLY [facility] [id number] [facility] 2022-10-04 09:00:00 2022-10-04 09:34:43 Outpatient JACKY VALENTIN ELISHA [facility] [id number] [facility] 2022-10-03 00:00:00 2022-10-03 00:00:00 Orders Only Doctor Unassigned, [place] [facility] 1..840.114 350.1.13.10 4.2.7.2.686 [id number] [facility] 2022-09-13 15:48:21 2022-09-13 15:48:21 Outpatient [facility] [id number] Jonatan F [place] 2022-09-12 16:36:38 2022-09-12 16:36:38 Outpatient [place] [id number] Jonatan F [place] 2022-09-12 00:00:00 2022-09-12 00:00:00 Orders Only Doctor Unassigned, [place] [facility] 1..840.114 350.1.13.10 4.2.7.2.686 [id number] [facility] 2022-07-13 08:30:00 2022-07-13 08:30:00 Outpatient RADHA SEAMAN [facility] [id number] [facility] 2022-05-27 11:11:32 2022-05-27 11:11:32 Outpatient [facility] [id number] Jonatan Barber [place] 2022-05-26 14:06:08 2022-05-26 14:06:08 Outpatient [facility] [id number] Jonatan Barber [place] 2022-05-23 08:20:19 2022-05-23 08:20:19 Outpatient [facility] [place] [id number] Jonatan Barber [place] 2022-05-22 14:36:00 2022-05-22 14:36:00 Outpatient [place] [id number] Jonatan Barber [place] 2022-05-22 00:00:00 2022-05-22 00:00:00 Outpatient Visit [id number] [id number] -[id number]-p [id number] 2022-05-18 09:15:00 2022-05-18 09:30:00 Termite Exterminator Helper Visit Julisa, Adc Lab Vishnu LeonelStewart [facility] 1.2.840.114 350.1.13.10 4.2.7.2.686 [id number] [facility] 2022-05-18 09:15:00 2022-05-18 09:15:00 Outpatient R STEWART CASTANEDA [facility] [id number] [facility] 2022-05-18 00:00:00 2022-05-18 00:00:00 Orders Only Doctor Unassigned, [place] [facility] 1.2.840.114 350.1.13.10 4.2.7.2.686 [id number] [facility] 2022-05-12 00:00:00 2022-05-12 00:00:00 Telephone Radha Pena [facility] 1.2.840.114 350.1.13.10 4.2.7.2.686 [id number] [facility] 2022-04-30 00:00:00 2022-04-30 00:00:00 Patient Secure Msg Doctor Unassigned, [place] [facility] 1.2840.114 350.1.13.10 4.2.7.2.686 [id number] [facility] 2022-04-28 13:00:00 2022-04-28 13:27:32 Outpatient R RADHA PENA [facility] [id number] [facility] 2022-04-21 07:00:00 2022-04-21 09:20:00 Outpatient R BECKY [facility] [id number] [facility] 2022-04-21 07:00:00 2022-04-21 09:20:00 Hospital Encounter Becky [facility] 1.2840.114 350.1.13.10 4.2.7.2.686 [id number] [facility] 2022-04-21 07:15:00 2022-04-21 08:23:00 Surgery Becky [facility] 1.2840.114 350.1.13.10 4.2.7.2.686 [id number] [id number] [facility] 2022-04-21 00:00:00 2022-04-21 00:00:00 Orders Only Doctor Unassigned, [place] [facility] 1.2840.114 350.1.13.10 4.2.7.2.686 [id number] [facility] 2022-03-24 14:30:00 2022-03-24 15:24:40 Outpatient R BECKY RADHA [facility] [id number] [facility] 2022-03-21 00:00:00 2022-03-21 00:00:00 Patient Secure Msg Doctor Unassigned, [place] [facility] 1.2840.114 350.1.13.10 4.2.7.2.686 [id number] [facility] 2022-03-16 16:06:08 2022-03-16 16:06:08 Outpatient [facility] [place] [id number] Jonatan Eason 2022-03-13 16:17:59 2022-03-13 16:17:59 Outpatient [facility] [place] [id number] Jonatan Eason 2022-03-13 00:00:00 2022-03-13 00:00:00 Outpatient Visit [id number] 2022-03-10 09:30:00 2022-03-10 10:18:42 Outpatient R JUAN PABLO JACKY [facility] [id number] [facility] 2022-03-10 09:30:00 2022-03-10 10:18:42 Office Visit Jacky Almeida [facility] 1.2.840.114 350.1.13.10 4.2.7.2.686 [id number] [facility] 2022-03-10 00:00:00 2022-03-10 00:00:00 Orders Only Doctor Unassigned, [place] [facility] 1..840.114 350.1.13.10 4.2.7.2.686 [id number] [facility] 2022-03-09 15:00:00 2022-03-09 15:20:00 [facility] 1.2.840.114 350.1.13.10 4.2.7.2.686 [id number] [facility] 2022-03-09 15:00:00 2022-03-09 15:00:00 [facility] [id number] 2022-03-03 00:00:00 2022-03-03 00:00:00 Patient Secure Msg Doctor Unassigned, [place] [facility] 1.2.114 350.1.13.10 4.2.7.2.686 [id number] [facility] 2022-02-28 00:00:00 2022-02-28 00:00:00 Orders Only Doctor Unassigned, [place] [facility] 1.20.114 350.1.13.10 4.2.7.2.686 [id number] [facility] 2022-02-27 16:44:56 2022-02-27 16:44:56 Outpatient [facility] [id number] Jonatan Eason 2022-02-24 14:31:28 2022-02-24 14:31:28 Outpatient [facility] [id number] Jonatan Eason 2022-02-24 00:00:00 2022-02-24 00:00:00 Outpatient Visit [id number] 2022-02-16 17:00:00 2022-02-16 17:15:00 [employer]ite Exterminator Helper Visit Pob, Adc Lab Danny Contreras [facility] 1.84.114 350.1.13.10 4.2.7.2.686 [id number] [facility] 2022-02-16 17:00:00 2022-02-16 17:00:00 Outpatient DANNY RILEY [facility] [id number] [facility] 2022-02-16 00:00:00 2022-02-16 00:00:00 Orders Only Doctor Unassigned, [place] [facility] 1.2.114 350.1.13.10 4.2.7.2.686 [id number] [facility] 2022-02-13 08:45:28 2022-02-13 08:45:28 Outpatient [facility] [id number] Jonatan Eason 2022-02-13 00:00:00 2022-02-13 00:00:00 Outpatient Visit [id number] 0015-09-28 00:00:00 2022-02-08 00:00:00 [facility]..840.114 350.1.13.10 4.2.7.2.686 [id number] [facility] 2022-02-06 15:00:00 2022-02-06 23:59:00 [id number] 2022-02-06 15:00:00 2022-02-06 15:00:00 [facility] [id number] [facility] 2022-02-03 00:00:00 2022-02-03 00:00:00 Patient Secure Msg Doctor Unassigned, [place] [facility] 1..840.114 350.1.13.10 4.2.7.2.686 [id number] [facility] 2022-01-23 15:20:00 2022-01-23 15:33:11 [id number] 2022-01-23 15:20:00 2022-01-23 15:33:11 [facility] 1..840.114 350.1.13.10 4.2.7.2.686 [id number] [facility] 2022-01-23 15:20:00 2022-01-23 15:33:11 Outpatient R CHICO SOTELO [facility] [id number] [facility] 2022-01-23 00:00:00 2022-01-23 00:00:00 Orders Only Doctor Unassigned, [place] [facility] 1.2.840.114 350.1.13.10 4.2.7.2.686 [id number] [facility] 2022-01-10 00:00:00 2022-01-10 00:00:00 Orders Only Doctor Unassigned, [place] [facility] 1.2.840.114 350.1.13.10 4.2.7.2.686 [id number] [id number] [facility] 2021-12-26 00:00:00 2021-12-26 00:00:00 Outpatient Visit [id number] 2021-12-06 00:00:00 2021-12-06 00:00:00 Orders Only Doctor Unassigned, [place] [facility] 1.2.840.114 350.1.13.10 4.2.7.2.686 [id number] [id number] [facility] 2021-11-30 00:00:00 2021-11-30 00:00:00 Outpatient Visit [id number] 2021-11-21 00:00:00 2021-11-21 00:00:00 Outpatient Visit [id number] 2021-11-09 00:00:00 2021-11-09 00:00:00 Orders Only Doctor Unassigned, [place] [facility] 1.2.840.114 350.1.13.10 4.2.7.2.686 [id number] 009 [id number] [facility] 2021-09-28 18:18:00 2021-09-28 21:46:00 Emergency Jordan Otero [facility] 1.2.840.114 350.1.13.10 4.2.7.2.686 [id number] [facility] 2021-09-28 18:18:00 2021-09-28 21:46:00 Emergency X JORDAN OTERO [facility] ERT [id number] [facility] 2021-03-18 17:08:00 2021-03-18 20:24:00 Emergency X NICA HOSKINS [facility] ERT [id number] [facility] 2021-03-18 17:08:00 2021-03-18 20:24:00 Emergency Nica Hoskins [facility] 1.2.840.114 350.1.13.10 4.2.7.2.686 [id number] [facility] 2021-02-02 11:53:00 2021-02-02 11:53:00 Emergency X [facility] ERT [id number] [facility] 2020-04-04 15:28:00 2020-04-04 17:20:00 Emergency SabrinaLeonidas ying [facility] 1.2.840.114 350.1.13.10 4.2.7.2.686 [id number] [facility] 2020-04-04 15:15:00 2020-04-04 15:15:00 Emergency X LEONIDAS MCGEE [facility] ERT [id number] [facility] Results Test Description Test Time Test Comments Results Result Co mments Source [facility] P[facility] RBC (in units), 1 Units 2024-02-05 13:45:51* Test Item Value Reference Range Interpretation Comme nts Cross Match Result (test code = 4409) Compatible ISBT Blood Type Code (test code = 087142) 9500 Unit Blood Type (test code = 4410) O Neg Unit Number (test code = 4411) [id number] Blood Expiration Date & Time (test code = 691443) 481629672904 Status Information (test code = 4412) Issued Product Identification (test code = 4413) Red Blood Cells Product Code (test code = 4414) [id number] Performed at [address] [address]Iugl Free: [phone] No. [id number] [facility] Packed RBC (in units), 1 Units 2024-02-05 13:45:51* Test Item Value Reference Range Interpretation Comme nts Cross Match Result (test code = 4409) Compatible ISBT Blood Type Code (test code = 944486) 9500 Unit Blood Type (test code = 4410) O Neg Unit Number (test code = 4411) [id number] Blood Expiration Date & Time (test code = 143123) 873722795873 Status Information (test code = 4412) Issued Product Identification (test code = 4413) Red Blood Cells Product Code (test code = 4414) [id number] Performed at [address] [address]Tdxi Free: [phone] No. [id number] [facility] Packed RBC (in units), 2 Units 2024-02-05 11:46:16* Test Item Value Reference Range Interpretation Comme nts Cross Match Result (test code = 4409) Compatible ISBT Blood Type Code (test code = 741409) 5100 Unit Blood Type (test code = 4410) O Pos Unit Number (test code = 4411) [id number] Blood Expiration Date & Time (test code = 469049) 000372547272 Status Information (test code = 4412) Ready Product Identification (test code = 4413) Red Blood Cells Product Code (test code = 4414) [id number] Performed at [place] [address]Toll Free: [phone] No. [id number] [facility] Packed RBC (in units), 1 Units 2024-02-04 01:26:40* Test Item Value Reference Range Interpretation Comme nts Cross Match Result (test code = 4409) Compatible ISBT Blood Type Code (test code = 180177) 9500 Unit Blood Type (test code = 4410) O Neg Unit Number (test code = 4411) [id number] Blood Expiration Date & Time (test code = 727133) 255390608519 Status Information (test code = 4412) Issued Product Identification (test code = 4413) Red Blood Cells Product Code (test code = 4414) [id number] Performed at [place] [address]Toll Free: [phone] No. [id number] [facility] Packed RBC (in units), 1 Units 2024-02-04 01:26:40* Test Item Value Reference Range Interpretation Comme nts Cross Match Result (test code = 4409) Compatible ISBT Blood Type Code (test code = 141508) 9500 Unit Blood Type (test code = 4410) O Neg Unit Number (test code = 4411) [id number] Blood Expiration Date & Time (test code = 195968) 188741638917 Status Information (test code = 4412) Issued Product Identification (test code = 4413) Red Blood Cells Product Code (test code = 4414) [id number] Performed at [place] [address]Toll Free: [phone] No. [id number] [facility] without [id number] 22:42:59* Test Item Value Reference Range Interpretation Comme nts WBC (test code = 6690-2) 4.47 4.30-11.10 RBC (test code = 789-8) 2.23 3.93-5.25 L HGB (test code = 718-7) 6.3 g/dL 11.6-15.0 L HCT (test code = 4544-3) 18.9 % 35.7-45.2 L MCH (test code = 785-6) 28.3 pg 25.9-32.8 MCV (test code = 787-2) 84.8 fL 80.6-95.5 MCHC (test code = 786-4) 33.3 g/dL 31.6-35.1 PLT (test code = 777-3) 93 166-358 L MPV (test code = 75939-6) 10.0 fL 9.5-12.9 RDW-CV (test code = 788-0) 20.1 % 12.0-15.5 H RDW-SD (test code = 13538-4) 60.4 fL 39.0-49.9 H NRBC x10^3 (test code = 3600582814) See_Comment [Automated HomeZadaa ge] The system which generated this result transmitted reference range: 10*3/?L. The reference range was not used to interpret this result as normal/abnormal. NRBC/100 WBC (test code = 4901495800) 0.0 0.0-10.0 IPF % (test code = 9855803859) 3.9 % 1.3-7.7 Platelet count measured by fluorescence method. Lab Interpretation (test code = 82585-3) Abnormal [facility] without [id number] 22:42:59* Test Item Value Reference Range Interpretation Comme nts WBC (test code = 6690-2) 4.47 4.30-11.10 RBC (test code = 789-8) 2.23 3.93-5.25 L HGB (test code = 718-7) 6.3 g/dL 11.6-15.0 L HCT (test code = 4544-3) 18.9 % 35.7-45.2 L MCH (test code = 785-6) 28.3 pg 25.9-32.8 MCV (test code = 787-2) 84.8 fL 80.6-95.5 MCHC (test code = 786-4) 33.3 g/dL 31.6-35.1 PLT (test code = 777-3) 93 166-358 L MPV (test code = 10579-2) 10.0 fL 9.5-12.9 RDW-CV (test code = 788-0) 20.1 % 12.0-15.5 H RDW-SD (test code = 83833-1) 60.4 fL 39.0-49.9 H NRBC x10^3 (test code = 0844885356) See_Comment [Automated messa ge] The system which generated this result transmitted reference range: 10*3/?L. The reference range was not used to interpret this result as normal/abnormal. NRBC/100 WBC (test code = 0733971840) 0.0 0.0-10.0 IPF % (test code = 9970688267) 3.9 % 1.3-7.7 Platelet count measured by fluorescence method. Lab Interpretation (test code = 06839-4) Abnormal [facility] Packed RBC (in units), 1 Units 2024-02-03 17:56:43* Test Item Value Reference Range Interpretation Comme nts Cross Match Result (test code = 4409) Compatible ISBT Blood Type Code (test code = 702454) 5100 Unit Blood Type (test code = 4410) O Pos Unit Number (test code = 4411) [id number] Blood Expiration Date & Time (test code = 689159) 038778491805 Status Information (test code = 4412) Issued Product Identification (test code = 4413) Red Blood Cells Product Code (test code = 4414) [id number] Performed at [facility] B Laboratory Services [facility] Blood [address] [place] [address]Dokn Free: [phone] No. [id number] [facility] Packed RBC (in units), 1 Units 2024-02-03 17:56:43* Test Item Value Reference Range Interpretation Comme nts Cross Match Result (test code = 4409) Compatible ISBT Blood Type Code (test code = 325676) 5100 Unit Blood Type (test code = 4410) O Pos Unit Number (test code = 4411) [id number] Blood Expiration Date & Time (test code = 685203) 861709665815 Status Information (test code = 4412) Issued Product Identification (test code = 4413) Red Blood Cells Product Code (test code = 4414) [id number] Performed at [facility] Laboratory Services [facility] Blood [address] [address]Ydsp Free: [phone] No. [id number] [facility] without Gics4290-08-53 16:59:29* Test Item Value Reference Range Interpretation Comme nts WBC (test code = 6690-2) 4.61 4.30-11.10 RBC (test code = 789-8) 2.15 3.93-5.25 L HGB (test code = 718-7) 6.5 g/dL 11.6-15.0 L HCT (test code = 4544-3) 19.1 % 35.7-45.2 L MCH (test code = 785-6) 30.2 pg 25.9-32.8 MCV (test code = 787-2) 88.8 fL 80.6-95.5 MCHC (test code = 786-4) 34.0 g/dL 31.6-35.1 PLT (test code = 777-3) 100 166-358 L MPV (test code = 31794-2) 11.2 fL 9.5-12.9 RDW-CV (test code = 788-0) 17.3 % 12.0-15.5 H RDW-SD (test code = 38380-8) 54.7 fL 39.0-49.9 H NRBC x10^3 (test code = 5253212064) See_Comment [Automated messa ge] The system which generated this result transmitted reference range: 10*3/?L. The reference range was not used to interpret this result as normal/abnormal. NRBC/100 WBC (test code = 3856662629) 0.0 0.0-10.0 IPF % (test code = 5149408686) Lab Interpretation (test code = 38673-2) Abnormal [facility] without [id number] 16:59:29* Test Item Value Reference Range Interpretation Comme nts WBC (test code = 6690-2) 4.61 4.30-11.10 RBC (test code = 789-8) 2.15 3.93-5.25 L HGB (test code = 718-7) 6.5 g/dL 11.6-15.0 L HCT (test code = 4544-3) 19.1 % 35.7-45.2 L MCH (test code = 785-6) 30.2 pg 25.9-32.8 MCV (test code = 787-2) 88.8 fL 80.6-95.5 MCHC (test code = 786-4) 34.0 g/dL 31.6-35.1 PLT (test code = 777-3) 100 166-358 L MPV (test code = 00134-1) 11.2 fL 9.5-12.9 RDW-CV (test code = 788-0) 17.3 % 12.0-15.5 H RDW-SD (test code = 99646-0) 54.7 fL 39.0-49.9 H NRBC x10^3 (test code = 9660658616) See_Comment [Automated HomeZadaa ge] The system which generated this result transmitted reference range: 10*3/?L. The reference range was not used to interpret this result as normal/abnormal. NRBC/100 WBC (test code = 4422529941) 0.0 0.0-10.0 IPF % (test code = 1060430164) Lab Interpretation (test code = 65724-8) Abnormal [facility] ABDOMEN LIMITED WITH [id number] 14:22:13EXAM: US ABDOMEN LIMITED WITH DOPPLER HISTORY: 63 years-old Female with tips patency, portal vein thrombus . TECHNIQUE: Limited abdominal ultrasound was performed focused on the liver,biliary system,pancreas and spleen. Main portal vein was evaluated withcolor and spectral Doppler imaging. Technical Applications Scientist images were obtained forthe record. COMPARISON: None FINDINGS: There is coarse echotexture of the hepatic parenchyma. No focal mass withinthe limited acquisition. The liver measures 13 cm in length. Status post TIPS with cephalic flow throughout the imaged shunt.Proximal TIPS:-131cm/s Mid TIPS: -124 cm/sDistal TIPS: -126 cm/s Portal vein: Hepatopetal flow present in the main portal vein. Left portalvein shows hepatofugal flow at 25.7 cm/s. The right portal vein also showshepatofugal flow.MPV diameter: 1 ?cm.MPV velocity: 76 cm/s. BILE DUCTS:No intra- or extrahepatic biliary dilatation..Common Duct diameter: 0.45 cm. Spleen measures 11.5 cm in length.[facility] WITH [id number] 14:22:13EXAM: US ABDOMEN LIMITED WITH DOPPLER HISTORY: 63 years-old Female with tips patency, portal vein [facility] . TECHNIQUE: Limited abdominal ultrasound was performed focused on the liver,biliary system,pancreas and spleen. Main portal vein was evaluated withcolor and spectral Doppler imaging. Technical Applications Scientist images were obtained forthe record. COMPARISON: None FINDINGS: There is coarse echotexture of the hepatic parenchyma. No focal mass withinthe limited acquisition. The liver measures 13 cm in length. Status post TIPS with cephalic flow throughout the imaged shunt.Proximal TIPS:-131cm/s Mid TIPS: -124 cm/sDistal TIPS: -126 cm/s Portal vein: Hepatopetal flow present in the main portal vein. Left portalvein shows hepatofugal flow at 25.7 cm/s. The right portal vein also showshepatofugal flow.MPV diameter: 1 ?cm.MPV velocity: 76 cm/s. BILE DUCTS:No intra- or extrahepatic biliary dilatation..Common Duct diameter: 0.45 cm. Spleen measures 11.5 cm in length.[facility]BD[facility]EN/PELVIS 2024-02-03 14:06:06EXAM: CT ANGIOGRAM ABDOMEN/PELVIS HISTORY: 63 years old Female with Tips patency and remaining thrombus patient presented with blood clots in urine. COMPARISON: CT angiogram abdomen and pelvis 01/01/2024. TECHNIQUE AND FINDINGS: Axial images of the abdomen and pelvis wereobtained without intravenouscontrast followed by contrast-enhanced CTangiogram in the arterial and venous phases of the abdomenand pelvis FINDINGS: LOWER THORAX: The lungs bases are clear. No cardiomegaly. LIVER: No focal hepatic lesions. ?Normal contour. GALLBLADDER AND BILIARY TREE: No biliary ductal dilation. ?No gallbladd erwall thickening. SPLEEN: No splenomegaly. PANCREAS: No ductal dilation or masses. ADRENAL GLANDS:No adrenal nodules. KIDNEYS: No right hydronephrosis, stones, or masses. Evaluation of the leftkidney is limited by streak artifact from embolization coils. No large leftrenal mass is visualized within this limitation. PERITONEUM AND RETROPERITONEUM: No free air or fluid. LYMPH NODES: No enlarged lymphadenopathy. GI TRACT: No dilation or wall thickening. Large stool burden in the colon PELVIS/BLADDER: The bladder is partially distended. Hyperdense intraluminalcontent of the bladder is visualized along the posterior wall. VESSELS: Postprocedural changes with TIPS are visualized again. The TIPSs veliz is patent. There is interval improvement of intrahepatic portal veinthrombosis with residual minimal thrombus burden. There is improvedthrombosis of the distal portal vein distal to the TIPS. There is residualminimal thrombus at the distal splenic vein just proximal to theconfluence. There is interval resolution of the superior mesenteric veinthrombosis. 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 Atherosclerotic calcification of the aorta is visualized resulti ng inmoderate to severe ostial stenosis of the celiac trunk and superiormesenteric artery. Severe atherosclerotic calcification of bilateral commoniliac, internal iliac and external iliac arteries isvisualized resultingin at least moderate luminal narrowing. BONES AND SOFT TISSUES: No suspicious lytic or sclerotic bony lesions.Degenerative changes of the lumbar spine is seen. [facility]BDOMEN/[id number] 14:06:06 EXAM: CT ANGIOGRAM ABDOMEN/PELVIS HISTORY: 63 years old Female with Tips patency and remaining thrombus patient presented with blood clots in urine. COMPARISON: CT angiogram abdomen and pelvis 01/01/2024. TECHNIQUE AND FINDINGS: Axial images of the abdomen and pelvis wereobtained without intravenouscontrast followed by contrast-enhanced CTangiogram in the arterial and venous phases of the abdomen and pelvis FINDINGS: LOWER THORAX: The lungs bases are clear. No cardiomegaly. LIVER: No focal hepatic lesions. ?Normal contour. GALLBLADDER AND BILIARY TREE: No biliary ductal dilation. ?No gallbladderwall thickening. SPLEEN: No splenomegaly. PANCREAS: No ductal dilation or masses. ADRENAL GLANDS:No adrenal nodules. KIDNEYS: No right hydronephrosis, stones, or masses. Evaluation of the leftkidney is limited by streak artifact from embolization coils. No large leftrenal mass is visualized within this limitation. PERITONEUM AND RETROPERITONEUM: No free air or fluid. LYMPH NODES: No enlarged lymphadenopathy. GI TRACT: No dilation or wall thickening. Large stool burden in the colon PELVIS/BLADDER: The bladder is partially distended. Hyperdense intraluminalcontent of the bladder is visualized along the posterior wall. VESSELS: Postprocedural changes with TIPS are visualized again. The TIPSshunt is patent. There is interval improvement of intrahepatic portal veinthrombosis with residual minimal thrombus burden. There is improvedthrombosis of the distal portal vein distal to the TIPS. There is residualminimal thrombus at the distal splenic vein just proximal to theconfluence. There is interval resolution of the superior mesenteric veinthrombosis. 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 Atherosclerotic calcification of the aorta is visualized resulting inmoderate to severe ostial stenosis of the celiac trunk and superiormesenteric artery. Severe atherosclerotic calcification of bilateral commoniliac, internal iliac and external iliac arteries isvisualized resultingin at least moderate luminal narrowing. BONES AND SOFT TISSUES: No suspicious lytic or sclerotic bony lesions.Degenerative changes of the lumbar spine is seen. [facility] Packed RBC (in units), 1 Units 2024-02-03 09:04:35* Test Item Value Reference Range Interpretation Comme nts Unit Blood Type (test code = 4410) O Pos ISBT Blood Type Code (test code = 986082) 5100 Unit Number (test code = 4411) [id number] Blood Expiration Date & Time (test code = 461101) 010100990686 Status Information (test code = 4412) Issued Product Identification (test code = 4413) Red Blood Cells Product Code (test code = 4414) [id number] Performed at [facility] B Laboratory Services - [facility] Blood [address] [place] [address]Wyha Free: [phone] No. [id number] Cross Match Result (test code = 4409) Compatible [facility] Packed RBC (in units), 1 Units 2024-02-03 09:04:35* Test Item Value Reference Range Interpretation Comme nts Unit Blood Type (test code = 4410) O Pos ISBT Blood Type Code (test code = 424181) 5100 Unit Number (test code = 4411) [id number] Blood Expiration Date & Time (test code = 073304) 059311226429 Status Information (test code = 4412) Issued Product Identification (test code = 4413) Red Blood Cells Product Code (test code = 4414) [id number] Performed at [facility] B Laboratory Services - [facility] Blood [address] [address]Srbm Free: [phone] No. [id number] Cross Match Result (test code = 4409) Compatible [facility] and Screen - ONCE [id number] 06:00:00* Test Item Value Reference Range Interpretation Comme nts ABO & RH (test code = 20) O POSITIVE IAT (test code = 1185) Negative [facility] and Screen - ONCE [id number] 06:00:00* Test Item Value Reference Range Interpretation Comme nts ABO & RH (test code = 20) O POSITIVE IAT (test code = 1185) Negative [facility] Taylor[facility]. Metabolic Panel (69384)2024-01-04 12:46:33* Test Item Value Reference Range Interpretation Comme nts NA (test code = 3551047345) 136 mmol/L 135-145 K (test code = 7865927767) 3.7 mmol/L 3.5-5.0 CL (test code = 0760457762) 109 mmol/L 98-108 H CO2 TOTAL (test code = 9450622420) 22 mmol/L 23-31 L AGAP (test code = 0882633266) 5 2-16 BUN (test code = 5187638558) 9 mg/dL 7-23 GLUCOSE (test code = 3379864392) 95 mg/dL 70-110 CREATININE (test code = 2160-0) 0.63 mg/dL 0.50-1.04 TOTAL BILI (test code = 0731457824) 1.7 mg/dL 0.1-1.1 H CALCIUM (test code = 0517430116) 7.5 mg/dL 8.6-10.6 L T PROTEIN (test code = 0333959062) 4.9 g/dL 6.3-8.2 L ALBUMIN (test code = 7316268208) 2.4 g/dL 3.5-5.0 L ALK PHOS (test code = 6671240828) 136 U/L 34-122 H ALTv (test code = 1742-6) 21 U/L 5-35 AST(SGOT) (test code = 5672825158) 68 U/L 13-40 H eGFR (test code = 94221-9) 98.6 mL/min/1.73m2 CKD-EPI eGFR (2020). Assuming creatinine has been stable day-to-day for at least three months, the eGFR indicates Category G1 (>= 90 mL/min/1.73 m2) Lab Interpretation (test code = 20152-1) Abnormal [facility] TaylorArterial [id number] 17:17:00Pradeep Estes MD ? ? 01/03/2024 12:21 PM Arterial Line Date/Time: 01/03/2024 12:17 PM Performed by: Pradeep Estes MDArterial Line Placement: ?Ultrasound-Guided: ultrasound guided ? ?Patient Location: ?OR?Indication: continuous blood pressure monitoring and blood sampling needed ?Staff: ?Supervising Anesthesiologist: ?Elmer Egan MD ?Resident: ?Pradeep Estes MDProcedure Detail: ?Catheter Size: ?20 gauge ?Catheter Length: ?1 and 3/4 inch ?Catheter Type: ?Arrow ?Seldinger Technique?: Yes ? ?Laterality: ?Left ?Site: ?Radial artery ?Line Secured: ?Tape and Tegaderm ?Preparation: ?Guidewire removed intactEvents: ?Events: ?Patient tolerated procedure well with no complications and all wires accounted forComments: ? Tegaderm CHG applied. [facility] TaylorIntubation2024-08-22 17:09:00Pradeep Estes MD ? ? 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 Indications and Patient ConditionIndications for airway management: anesthesiaSpontaneous Ventilation: absentSedation level: deepPreoxygenated: yesPatient position: sniffingMILS not maintained throughoutMask difficulty assessment: 1 - vent by maskNo planned trial extubation Final Airway DetailsFinal airway type: endotracheal airway Successful airway: ETTCuffed: yes Successful intubation technique: direct laryngoscopyFacil itating devices/methods: intubating styletEndotracheal tube insertion site: oralBlade: MillerBlade size: #2ETT size (mm): 7.0Cormack-Lehane Classification: grade I - full view of glottisPlacement verified by: capnometry Measured from: lipsETT to lips (cm): 21Number of attempts at approach: 1Number of other approaches attempted: 0 Additional CommentsETT 7.0 placed atraumatically x1 attempt. ?Lips,gums, teeth, and nose unchanged vs. preop.[facility] Taylor[facility] [id number] 15:17:35EXAMINATION: 1. ?TRANSJUGULAR INTRAHEPATIC PORTOSYSTEMIC SHUNT PLACEMENT AND SHUNTEMBOLIZATION.2. 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 FACULTY: Nahomi Bueno MDRESIDENT: Jannet Zepeda MD. SEDATION: The patient's anesthesia was managed by the anesthesiologists.Please refer to their notes for further details. RADIATION DOSE: 1134 mGy. TECHNIQUE: The risks, benefits and alternatives were discussed and informedconsent was obtained. Prior to beginning the procedure, [place] [place] Protocolwas performed to confirm the patient's identity and the planned procedure.Maximum sterile barriers including cap, mask, hand hygiene, sterile gloves,sterile gown, large sterile drape and cutaneous antisepsis were used. The skin over right upper quadrant was infiltrated with 1% lidocaine and t71-twdtv Chiba needle was advanced into the right portal venous branchfollowed by portal venogram and placement of a microwire for targetingpurposes. The skin over the right internal jugular vein access site was infiltratedwith 1 percent lidocaine. The vein was accessed using real-time ultrasoundguidance. A wire wasadvanced centrally followed by placement of a 10french vascular sheath. The sheath was subsequentlyupsized to a 16-Frenchfor penumbra thrombectomy. Using fluoroscopic guidance, an MPA catheter was advanced into the righthepatic vein. Over an Amplatz wire the catheter was exchanged for a RoschUchida set. Passes were made across the liver parenchyma until the rightportal vein was entered. A guidewire followed by a catheter was advancedinto the portal vein which was confirmed by contrast injection. The tractwas dilated using initially a 4 mm monorail balloon. A marking pigtailcatheter was then advanced into the portal vein. Simultaneous portal andhepatic venography was done to measure the length of the transhepatictract. Venogram demonstrated occlusive portal vein thrombosis with extension intothe intrahepatic branches. A 16-Citizen [place] penumbra suction thrombectomy devicewas used for mechanical thrombectomy of the portal vein thrombosis. Arepeat venogram post thrombectomy demonstrated significant reduction in theclot burden with improved flow into the intrahepatic branches. The mainportalvein was subsequently angioplastied using an 8 mm and then 10 mmballoons. A long sheath was advanced into the portal vein and through this a 6-2 cmViatorr stent was advanced and deployed. The stent graft was dilated usinga 8 mm balloon. Post TIPS placement and mechanical thrombectomy splenic venographydemonstrated significant shunting of blood away from the liver by 2 largeshunts of the splenic vein. These shunts were subsequently catheterizedusing a combination of 0.035 Glidewire and 5- Citizen [place] catheter andwere embolized using a combination of Amplatzer plugs and 0.035 coils.Postembolization angiogram demonstrated reduced flow within the shunts withbrisk flow across the TIPS. The catheters were removed and hemostasis was achieved at the access siteby manual compression. ESTIMATEDBLOOD LOSS: Less than 50 mL. CONDITION: Stable. DISCHARGED TO: Recovery and then to MICU. FINDINGS:* ?Initial recorded ultrasound image of the access vein showed a patentright internal jugular vein.* ?Right hepatic venogram demonstrated patent hepatic vein with classicbranching anatomy with no venovenous fistula.* ?Portal venogram demonstrated nonocclusive portal vein thrombosis withextension of clots into the intrahepatic branches.* ?Splenic venogram demonstrated patent splenic vein with shunting of bloodaway from the portal vein into large shunts draining into the left renalvein.* ?Superior mesenteric venogram demonstrated patent superior mesentericvein.* ?Mechanical thrombectomy of portal venous thromboses was performed zeelg70-Ktpeqr penumbra suction thrombectomy device followed by b alloonangioplasty of the portal vein using 8 mm and 10 mm balloons.* ?Technically successful creation of TIPS between the right hepatic veinand right portal vein using 6-2 cm Viatorr stent angioplasty to 8 mm.* ?Technically successful antegrade embolization of the shunts (varices)using a combination of vascular plugs and coils.* ?Postintervention splenic and portal venograms demonstrated patent TIPSwith persistent area of narrowing involving the main portal vein.[facility] Taylor[facility]esium2024-08-21 11:45:26* Test Item Value Reference Range Interpretation Comme nts MAGNESIUM (test code = 3717780817) 1.9 mg/dL 1.7-2.4 Lab Interpretation (test cod e = 27983-5) Normal [facility] TaylorBasi Metabolic Panel (NA, K, CL, CO2, GLUCOSE, BUN, CREATININE, CA)2024-01-02 11:45:26* Test Item Value Reference Range Interpretation Comme nts NA (test code = 8522141488) 135 mmol/L 135-145 K (test code = 7042550729) 3.6 mmol/L 3.5-5.0 CL (test code = 5172090319) 107 mmol/L 98-108 CO2 TOTAL (test code = 3428788423) 24 mmol/L 23-31 AGAP (test code = 0593851887) 4 2-16 BUN (test code = 9314283888) 16 mg/dL 7-23 GLUCOSE (test code = 5277236029) 118 mg/dL 70-110 H CREATININE (test code = 2160-0) 0.68 mg/dL 0.50-1.04 CALCIUM (test code = 3612025465) 7.6 mg/dL 8.6-10.6 L eGFR (test code = 15847-7) 96.8 mL/min/1.73m2 CKD-EPI eGFR (2020). Assuming creatinine has been stable day-to-day for at least three months, the eGFR indicates Category G1 (>= 90 mL/min/1.73 m2) Lab Interpretation (test code = 71968-6) Abnormal [facility] with Ksqx1790-17-87 11:33:50* Test Item Value Reference Range Interpretation Comme nts WBC (test code = 6690-2) 7.15 4.30-11.10 RBC (test code = 789-8) 2.69 3.93-5.25 L HGB (test code = 718-7) 7.6 g/dL 11.6-15.0 L HCT (test code = 4544-3) 23.9 % 35.7-45.2 L MCV (test code = 787-2) 88.8 fL 80.6-95.5 MCH (test code = 785-6) 28.3 pg 25.9-32.8 MCHC (test code = 786-4) 31.8 g/dL 31.6-35.1 RDW-SD (test code = 00846-5) 57.4 fL 39.0-49.9 H RDW-CV (test code = 788-0) 18.6 % 12.0-15.5 H PLT (test code = 777-3) 87 166-358 L MPV (test code = 62507-5) 11.3 fL 9.5-12.9 IPF % (test code = 7350702687) 6.4 % 1.3-7.7 Platelet count measured by fluorescence method. NRBC/100 WBC (test code = 1987286004) 0.0 0.0-10.0 NRBC x10^3 (test code = 7875990798) See_Comment [Automated HomeZadaa ge] The system which generated this result transmitted reference range: 10*3/?L. The reference range was not used to interpret this result as normal/abnormal. GRAN MAT (NEUT) % (test code = 770-8) 65.2 % IMM GRAN % (test code = 9452181811) 0.40 % LYMPH % (test code = 736-9) 17.1 % MONO % (test code = 5905-5) 10.8 % EOS % (test code = 713-8) 5.7 % BASO % (test code = 706-2) 0.8 % GRAN MAT x10^3(ANC) (test code = 4668068360) 4.66 10*3/uL 1.88-7.09 IMM GRAN x10^3 (test code = 6932260376) 0.03 10*3/uL 0.00-0.06 LYMPH x10^3 (test code = 731-0) 1.22 10*3/uL 1.32-3.29 L MONO x10^3 (test code = 742-7) 0.77 10*3/uL 0.33-0.92 EOS x10^3 (test code = 711-2) 0.41 10*3/uL 0.03-0.39 H BASO x10^3 (test code = 704-7) 0.06 10*3/uL 0.01-0.07 GIANT PLATELETS (test code = 5908-9) Present See_Comment A [Automated HomeZadaa [employer]] The system which generated this result transmitted reference range: (none). The reference range was not used to interpret this result as normal/abnormal. Lab Interpretation (test code = 47977-8) Abnormal [facility] TaylorCT ANGIOGRAM ABDOMEN/EEMZES0469-55-94 23:11:44 EXAM: CT ABDOMEN AND PELVIS WITH AND WITHOUT CONTRAST HISTORY: 63-year-old female with occlusive portal vein thrombosis statuspost thrombectomy and TIPS. COMPARISON: CT abdomen and pelvis on 12/23/2023. TECHNIQUE AND FINDINGS: Contiguous axial imaging from the level of the lungbases through the pubic symphysis was performed before and after theuncomplicated administration of intravenous Isovue contrast. Precontrast,arterial, venous, and delayed phase images were obtained. Coronal andsagittal reconstructions were obtained. ?Auto mA and/or iterativereconstruction were used to reduce radiation dose. FINDINGS: LOWER THORAX: Minimal bibasilar atelectasis. No cardiomegaly. LIVER: Cirrhotic liver morphology and no focal hepatic lesion. GALLBLADDER AND BILIARY TREE: No gallbladder wall thickening.No biliaryductal dilation. SPLEEN: No splenomegaly. PANCREAS: No ductal dilation or masses. ADRENALGLANDS: No adrenal nodules. KIDNEYS: No hydronephrosis, stones, or masses. PERITONEUM AND RETROPERITONEUM: No free air or fluid. LYMPH NODES: No lymphadenopathy. GI TRACT: No dilation or wall thickening. PELVIS/BLADDER: Unremarkable. VESSELS: Interval placement of TIPS between the right hepatic vein andright portal vein. The TIPS is patent. Redemonstration of portal veinthrombosis with interval improvement of intrahepatic portal veinthrombosis. A large thrombus is noted at the distal portal vein extendingnear the confluence of the splenic vein and the superior mesenteric vein.The splenic veinand SMV are patent. Interval embolization of portosystemicshunts of the splenic vein. BONES AND SOFT TISSUES: No suspicious lytic or sclerotic bony lesions.[facility] TaylorMagnesium 2024-01-01 11:43:45* Test Item Value Reference Range Interpretation Comme nts MAGNESIUM (test code = 6906646129) 1.8 mg/dL 1.7-2.4 Lab Interpretation (test cod e = 79783-3) Normal [facility] TaylorHepatic Function Panel (98885) (ALB,T.PRO,BILI T,BU/BC,ALT,AST,ALK PHOS)2024-01-01 11:43:44* Test Item Value Reference Range Interpretation Comme nts TOTAL BILI (test code = 2071541300) 1.5 mg/dL 0.1-1.1 H BILI UNCON (test code = 9335712751) 1.1 mg/dL 0.1-1.1 BILI CONJ (test code = 2355064171) 0.0 mg/dL 0.0-0.3 T PROTEIN (test code = 8804064981) 5.2 g/dL 6.3-8.2 L ALBUMIN (test code = 7436436910) 2.7 g/dL 3.5-5.0 L ALK PHOS (test code = 2614122611) 102 U/L 34-122 ALTv (test code = 1742-6) 19 U/L 5-35 AST(SGOT) (test code = 0874850962) 38 U/L 13-40 Lab Interpretation (test cod e = 39269-4) Abnormal [facility] TaylorBasic Metabolic Panel (NA, K, CL, CO2, GLUCOSE, BUN, CREATININE, CA)2024-01-01 11:43:44* Test Item Value Reference Range Interpretation Comme nts NA (test code = 9079496428) 136 mmol/L 135-145 K (test code = 3979756000) 3.7 mmol/L 3.5-5.0 CL (test code = 2225401375) 110 mmol/L 98-108 H CO2 TOTAL (test code = 8259788057) 20 mmol/L 23-31 L AGAP (test code = 0667969235) 6 2-16 BUN (test code = 2014493948) 12 mg/dL 7-23 GLUCOSE (test code = 6917498259) 112 mg/dL 70-110 H CREATININE (test code = 2160-0) 0.55 mg/dL 0.50-1.04 CALCIUM (test code = 1049818940) 8.1 mg/dL 8.6-10.6 L eGFR (test code = 87697-6) 101.9 mL/min/1.73m2 CKD-EPI eGFR (2020). Assuming creatinine has been stable day-to-day for at least three months, the eGFR indicates Category G1 (>= 90 mL/min/1.73 m2) Lab Interpretation (test code = 08454-7) Abnormal [facility] with Ufwr0999-04-94 11:40:12* Test Item Value Reference Range Interpretation Comme nts WBC (test code = 6690-2) 4.09 4.30-11.10 L RBC (test code = 789-8) 2.86 3.93-5.25 L HGB (test code = 718-7) 8.1 g/dL 11.6-15.0 L HCT (test code = 4544-3) 25.4 % 35.7-45.2 L MCV (test code = 787-2) 88.8 fL 80.6-95.5 MCH (test code = 785-6) 28.3 pg 25.9-32.8 MCHC (test code = 786-4) 31.9 g/dL 31.6-35.1 RDW-SD (test code = 24317-4) 58.3 fL 39.0-49.9 H RDW-CV (test code = 788-0) 18.5 % 12.0-15.5 H PLT (test code = 777-3) 70 166-358 L MPV (test code = 75059-5) 11.6 fL 9.5-12.9 IPF % (test code = 8494774782) 5.6 % 1.3-7.7 Platelet count measured by fluorescence method. NRBC/100 WBC (test code = 7640651452) 0.0 0.0-10.0 NRBC x10^3 (test code = 7403234673) See_Comment [Automated HomeZadaa ge] The system which generated this result transmitted reference range: 10*3/?L. The reference range was not used to interpret this result as normal/abnormal. GRAN MAT (NEUT) % (test code = 770-8) 81.5 % IMM GRAN % (test code = 1241766008) 0.50 % LYMPH % (test code = 736-9) 11.0 % MONO % (test code = 5905-5) 5.6 % EOS % (test code = 713-8) 0.2 % BASO % (test code = 706-2) 1.2 % GRAN MAT x10^3(ANC) (test code = 4319707818) 3.33 10*3/uL 1.88-7.09 IMM GRAN x10^3 (test code = 7121787555) 0.00-0.06 LYMPH x10^3 (test code = 731-0) 0.45 10*3/uL 1.32-3.29 L MONO x10^3 (test code = 742-7) 0.23 10*3/uL 0.33-0.92 L EOS x10^3 (test code = 711-2) 0.03-0.39 L BASO x10^3 (test code = 704-7) 0.05 10*3/uL 0.01-0.07 BANDS (test code = 6088274210) Increased A Lab Interpretation (test code = 49824-6) Abnormal [facility] TaylorProthrombin Time / [id number] 11:15:15* Test Item Value Reference Range Interpretation Comme nts PROTIME PATIENT (test code = 5964-2) 13.7 10.1-12.6 H INR (test code = 6301-6) 1.2 Normal INR <1.1; Warfarin Therapeutic range 2.0 to 3.0 or 2.5 to 3.5, depending upon the indications. Lab Interpretation (test code = 94842-0) Abnormal [facility] with Yoxr4102-06-57 05:07:41* Test Item Value Reference Range Interpretation Comme nts WBC (test code = 6690-2) 4.29 4.30-11.10 L RBC (test code = 789-8) 3.01 3.93-5.25 L HGB (test code = 718-7) 8.5 g/dL 11.6-15.0 L HCT (test code = 4544-3) 27.3 % 35.7-45.2 L MCV (test code = 787-2) 90.7 fL 80.6-95.5 MCH (test code = 785-6) 28.2 pg 25.9-32.8 MCHC (test code = 786-4) 31.1 g/dL 31.6-35.1 L RDW-SD (test code = 55246-9) 60.5 fL 39.0-49.9 H RDW-CV (test code = 788-0) 18.7 % 12.0-15.5 H PLT (test code = 777-3) 66 166-358 L MPV (test code = 54732-6) 11.6 fL 9.5-12.9 IPF % (test code = 6300783012) 6.3 % 1.3-7.7 Platelet count measured by fluorescence method. NRBC/100 WBC (test code = 0912921042) 0.0 0.0-10.0 NRBC x10^3 (test code = 3363251953) See_Comment [Automated messa ge] The system which generated this result transmitted reference range: 10*3/?L. The reference range was not used to interpret this result as normal/abnormal. GRAN MAT (NEUT) % (test code = 770-8) 87.7 % IMM GRAN % (test code = 8083486437) 0.20 % LYMPH % (test code = 736-9) 8.4 % MONO % (test code = 5905-5) 2.3 % EOS % (test code = 713-8) 0.2 % BASO % (test code = 706-2) 1.2 % GRAN MAT x10^3(ANC) (test code = 5702361334) 3.76 10*3/uL 1.88-7.09 IMM GRAN x10^3 (test code = 0722021961) 0.00-0.06 LYMPH x10^3 (test code = 731-0) 0.36 10*3/uL 1.32-3.29 L MONO x10^3 (test code = 742-7) 0.10 10*3/uL 0.33-0.92 L EOS x10^3 (test code = 711-2) 0.03-0.39 L BASO x10^3 (test code = 704-7) 0.05 10*3/uL 0.01-0.07 Lab Interpretation (test code = 11588-7) Abnormal [facility] with Rgkq0532-02-51 19:00:29* Test Item Value Reference Range Interpretation Comme nts WBC (test code = 6690-2) 3.74 4.30-11.10 L RBC (test code = 789-8) 2.82 3.93-5.25 L HGB (test code = 718-7) 7.9 g/dL 11.6-15.0 L HCT (test code = 4544-3) 25.1 % 35.7-45.2 L MCV (test code = 787-2) 89.0 fL 80.6-95.5 MCH (test code = 785-6) 28.0 pg 25.9-32.8 MCHC (test code = 786-4) 31.5 g/dL 31.6-35.1 L RDW-SD (test code = 62634-1) 59.7 fL 39.0-49.9 H RDW-CV (test code = 788-0) 18.5 % 12.0-15.5 H PLT (test code = 777-3) 62 166-358 L MPV (test code = 35928-3) 11.4 fL 9.5-12.9 IPF % (test code = 2444702784) 7.1 % 1.3-7.7 Platelet count measured by fluorescence method. NRBC/100 WBC (test code = 0095228791) 0.0 0.0-10.0 NRBC x10^3 (test code = 7983389643) See_Comment [Automated messa ge] The system which generated this result transmitted reference range: 10*3/?L. The reference range was not used to interpret this result as normal/abnormal. GRAN MAT (NEUT) % (test code = 770-8) 52.1 % IMM GRAN % (test code = 3338993450) 0.30 % LYMPH % (test code = 736-9) 27.5 % MONO % (test code = 5905-5) 12.3 % EOS % (test code = 713-8) 7.0 % BASO % (test code = 706-2) 0.8 % GRAN MAT x10^3(ANC) (test code = 7998915404) 1.95 10*3/uL 1.88-7.09 IMM GRAN x10^3 (test code = 3495169911) 0.00-0.06 LYMPH x10^3 (test code = 731-0) 1.03 10*3/uL 1.32-3.29 L MONO x10^3 (test code = 742-7) 0.46 10*3/uL 0.33-0.92 EOS x10^3 (test code = 711-2) 0.26 10*3/uL 0.03-0.39 BASO x10^3 (test code = 704-7) 0.03 10*3/uL 0.01-0.07 BANDS (test code = 2473004629) Increased A GIANT PLATELETS (test code = 5908-9) Present See_Comment A [Automated HomeZadaa ge] The system which generated this result transmitted reference range: (none). The reference range was not used to interpret this result as normal/abnormal. Lab Interpretation (test code = 05186-9) [facility] BranchArterial Rsar1603-56-94 18:20:00Rachel Lange CRNA ? ? 12/31/2023 ?2:20 PM Arterial Line Date/Time: 12/31/2023 1:20 PM Performedby: Rachel Lange CRNAArterial Line Placement: ?Ultrasound-Guided: surface landmarks ? ?Patient Location: ?OR ?Indication: continuous blood pressure monitoring and blood sampling needed ?Staff: ?MOTORCYCLE MECHANIC: ?Rachel Lange CRNAProcedure Detail: ?Catheter Size: ?20 gauge ?Catheter Length: ?1 and 1/4 inch ?Catheter Type: ?Arrow ?Laterality: ?Left ?Site: ?Radial artery ?Line Secured: ?Tape and biopatch ?Preparation: ?Chloroprep and sterile glovesEvents: ?Events: ?Patient tolerated procedure well with no complications [facility] TaylorIntubation2024-08-19 18:09:00Rachel Lange CRNA ? ? 12/31/2023 ?2:14 PMIntubationDate/Time: 12/31/2023 1:09 PMUrgency: elective Airway not difficult General Information and Staff Patient location during procedure: ORPerformed: resident/MOTORCYCLE MECHANIC Performed by: Rachel Lange CRNAAuthorized by: Theodora Mazariegos MD ? Indications and Patient ConditionIndications for airway management: anesthesiaSedation level: deepMask difficulty assessment: 1 - vent by mask Final Airway DetailsFinal airway type: endotracheal airway Successful airway: ETT Successful intubation technique: direct laryngoscopyFacilitating devices/methods: intubating styletEndotracheal tube insertion site: oralBlade: MacintoshBlade size: #3ETT size (mm): 7.0Cormack-Lehane Classification: grade I - full view of glottisPlacement verified by: chest auscultation and capnometry Measured from: teethETT to teeth (cm): 22Number of attempts at approach: 1UnParkland Memorial HospitalCb without Nncc0162-78-09 11:52:03* Test Item Value Reference Range Interpretation Comme nts WBC (test code = 6690-2) 3.69 4.30-11.10 L RBC (test code = 789-8) 2.75 3.93-5.25 L HGB (test code = 718-7) 7.7 g/dL 11.6-15.0 L HCT (test code = 4544-3) 24.5 % 35.7-45.2 L MCH (test code = 785-6) 28.0 pg 25.9-32.8 MCV (test code = 787-2) 89.1 fL 80.6-95.5 MCHC (test code = 786-4) 31.4 g/dL 31.6-35.1 L PLT (test code = 777-3) 67 166-358 L MPV (test code = 21202-1) 11.1 fL 9.5-12.9 RDW-CV (test code = 788-0) 18.7 % 12.0-15.5 H RDW-SD (test code = 30863-1) 59.8 fL 39.0-49.9 H NRBC x10^3 (test code = 4039040525) See_Comment [Automated Home[employer]ada[employer] ge] The system which generated this result transmitted reference range: 10*3/?L. The reference range was not used to interpret this result as normal/abnormal. NRBC/100 WBC (test code = 8465004305) 0.0 0.0-10.0 IPF % (test code = 6242036129) 6.2 % 1.3-7.7 Platelet count measured by fluorescence method. Lab Interpretation (test code = 41747-4) Abnormal [facility] TaylorENDOSCOPY PROCEDURE [id number] 18:17:46Ordered by an unspecified provider.[facility] TaylorCb with Wefm5331-07-10 11:50:52* Test Item Value Reference Range Interpretation Comme nts WBC (test code = 6690-2) 3.55 4.30-11.10 L RBC (test code = 789-8) 2.78 3.93-5.25 L HGB (test code = 718-7) 7.7 g/dL 11.6-15.0 L HCT (test code = 4544-3) 24.5 % 35.7-45.2 L MCV (test code = 787-2) 88.1 fL 80.6-95.5 MCH (test code = 785-6) 27.7 pg 25.9-32.8 MCHC (test code = 786-4) 31.4 g/dL 31.6-35.1 L RDW-SD (test code = 21694-2) 58.3 fL 39.0-49.9 H RDW-CV (test code = 788-0) 18.8 % 12.0-15.5 H PLT (test code = 777-3) 65 166-358 L MPV (test code = 74453-0) 10.5 fL 9.5-12.9 IPF % (test code = 9765936082) 6.5 % 1.3-7.7 Platelet count measured by fluorescence method. NRBC/100 WBC (test code = 6397394809) 0.0 0.0-10.0 NRBC x10^3 (test code = 1165287136) See_Comment [Automated Home[employer] ge] The system which generated this result transmitted reference range: 10*3/?L. The reference range was not used to interpret this result as normal/abnormal. GRAN MAT (NEUT) % (test code = 770-8) 45.9 % IMM GRAN % (test code = 0333343982) 0.30 % LYMPH % (test code = 736-9) 31.0 % MONO % (test code = 5905-5) 13.8 % EOS % (test code = 713-8) 8.2 % BASO % (test code = 706-2) 0.8 % GRAN MAT x10^3(ANC) (test code = 0030273831) 1.63 10*3/uL 1.88-7.09 L IMM GRAN x10^3 (test code = 5450813378) 0.00-0.06 LYMPH x10^3 (test code = 731-0) 1.10 10*3/uL 1.32-3.29 L MONO x10^3 (test code = 742-7) 0.49 10*3/uL 0.33-0.92 EOS x10^3 (test code = 711-2) 0.29 10*3/uL 0.03-0.39 BASO x10^3 (test code = 704-7) 0.03 10*3/uL 0.01-0.07 BANDS (test code = 6440833647) Increased A Lab Interpretation (test code = 52767-9) [facility]normal [facility] TayloraPTT (for use with Heparin Drip)2023-12-28 11:35:04* Test Item Value Reference Range Interpretation Comme [facility] APTT Patient (test code = 3173-2) 138 26-36 HH Lab Interpretation (test cod e = 36741-1) Abnormal [facility] TayloraPTT (for use with Heparin Drip)2023-12-28 02:57:52* Test Item Value Reference Range Interpretation Comme [facility] APTT Patient (test code = 3173-2) 122 26-36 HH Lab Interpretation (test cod e = 73365-1) Abnormal [facility] BranchaPTT (for use with Heparin Drip)2023-12-28 02:57:52* Test Item Value Reference Range Interpretation Comme [facility] APTT Patient (test code = 3173-2) 122 26-36 HH Lab Interpretation (test cod e = 00305-1) Abnormal [facility] Packed RBC (in units), 1 Units 2023-12-26 19:09:54* Test Item Value Reference Range Interpretation Comme [facility] Unit Blood Type (test code = 4410) O Pos ISBT Blood Type Code (test code = 495268) 5100 Unit Number (test code = 4411) [id number] Blood Expiration Date & Time (test code = 693389) [id number] Status Information (test code = 4412) Issued Product Identification (test code = 4413) Red Blood Cells Product Code (test code = 4414) [id number] Performed at [facility] Laboratory Services [facility] Blood [address] [address] Free: [phone] No. [id number] Cross Match Result (test code = 4409) Compatible [facility] Packed RBC (in units), 1 Units 2023-12-26 19:09:54* Test Item Value Reference Range Interpretation Comme [facility] Unit Blood Type (test code = 4410) O Pos ISBT Blood Type Code (test code = 761331) 5100 Unit Number (test code = 4411) [id number] Blood Expiration Date & Time (test code = 307496) [id number] Status Information (test code = 4412) Issued Product Identification (test code = 4413) Red Blood Cells Product Code (test code = 4414) [id number] Performed at [facility] Laboratory Services [address] Free: [phone] No. [id number] Cross Match Result (test code = 4409) Compatible [facility] TaylorType and Screen - Pcgiqzs1821-70-64 18:09:57* Test Item Value Reference Range Interpretation Comme nts ABO & RH (test code = 20) O POSITIVE Performed at [facility] Laboratory Services - [address] Free: [phone] No. [id number] IAT (test code = 1185) Negative Performed at [facility] Laboratory [address] Free: [phone] No. [id number] [facility] TaylorType and Screen - Dduidhi8947-65-91 18:09:57* Test Item Value Reference Range Interpretation Comme nts ABO & RH (test code = 20) O POSITIVE Performed at [facility] Laboratory [address] Free: [phone] No. [id number] IAT (test code = 1185) Negative Performed at [facility] Laboratory [address] [address]Hlnx Free: [phone] No. [id number] [facility] TaylorCT ABDOMEN W WO DFCSNANV8849-10-82 00:51:41CT ABDOMEN W WO CONTRAST Indication: multi phase liver protocol - concern for acute vs chronicportal vein thrombus and cirrhosis per GI multi phase liver protocol - concern for acute vs chronic portalvein thrombus and cirrhosis per GI Comparison: CT 12/23/2023. Ordering Clinician: [facility] Technique: Axial CT images of the abdomen and pelvis were performed with ivcontrast. Exam was obtained in arterial, venous and delayed phases.Sagittal and coronal reformats were created. Dose reduction techniques wereused (ALARA). Technical Quality: Adequate Discussion:Lines/Devices: None. Chest/Vessels: No acute abnormalities within the lung bases. ?The aorta isacutely normal. PORTAL V EIN: Portal vein is dilated measuring 2.2 cm. 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 Organs: Cirrhotic liver. ?Gallbladder wall thickening and pericholecysticfluid. ?The pancreas is normal. ?No splenic masses. Multiple collateralvessels adjacent to the spleen. The adrenal glands are normal. : No hydronephrosis. No renal stones.The ureters are normal. ? GI: Coming of the ascending colon. Visualized portions of the transverseand descending colon are unremarkable. ?No small bowel obstruction. Misc.: Subcentimeter lymph nodesare below size criteria. ?No free air orfree fluid. Skeleton: No acute osseous pathology.[facility] [id number] 00:51:41CT ABDOMEN W WO CONTRAST Indication: multi phase liver protocol - concern for acute vs chronicportal vein thrombus and cirrhosis per GI multi phase liver protocol -concern for acute vs chronic portalvein thrombus and cirrhosis per GI Comparison: CT 12/23/2023. Ordering Clinician: DAYAN DENTON [facility] Technique: Axial CT images of the abdomen and pelvis were performed with ivcontrast. Exam was obtained in arterial, venous and delayed phases.Sagittal and coronal reformats were created. Dose reduction techniques wereused (ALARA). Technical Quality: Adequate Discussion:Lines/Devices: None. Chest/Vessels: No acute abnormalities within the lung bases. ?The aorta isacutely normal. PORTAL VEIN: Portal vein is dilated measuring 2.2 cm. 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 Organs: Cirrhotic liver. ?Gallbladder wall thickening and pericholecysticfluid. ?The pancreas is normal. ?No splenic masses. Multiple collateralvessels adjacent to the spleen. The adrenal glands are normal. : No hydronephrosis. No renal stones.The ureters are normal. ? GI: Coming of the ascending colon. Visualized portions of the transverseand descending colon are unremarkable. ?No small bowel obstruction. Misc.: Subcentimeter lymph nodes are below size criteria. ?No free air orfree fluid. Skeleton: No acute osseous pathology.[facility] [id number] 00:51:41CT ABDOMEN W WO CONTRAST Indication: multi phase liver protocol - concern for acute vs chronicportal vein thrombus and cirrhosis per GI multi phase liver protocol -concern for acute vs chronic portalvein thrombus and cirrhosis per GI Comparison: CT 12/23/2023. Ordering Clinician: DAYAN NEVAREZ [facility] Technique: Axial CT images of the abdomen and pelvis were performed with ivcontrast. Exam was obtained in arterial, venous and delayed phases.Sagittal and coronal reformats were created. Dose reduction techniques wereused (ALARA). Technical Quality: Adequate Discussion:Lines/Devices: None. Chest/Vessels: No acute abnormalities within the lung bases. ?The aorta isacutely normal. PORTAL VEIN: Portal vein is dilated measuring 2.2 cm. 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 Organs: Cirrhotic liver. ?Gallbladder wall thickening and pericholecysticfluid. ?The pancreas is normal. ?No splenic masses. Multiple collateralvessels adjacent to the spleen. The adrenal glands are normal. : No hydronephrosis. No renal stones.The ureters are normal. ? GI: Coming of the ascending colon. Visualized portions of the transverseand descending colon are unremarkable. ?No small bowel obstruction. Misc.: Subcentimeter lymph nodes are below size criteria. ?No free air orfree fluid. Skeleton: No acute osseous pathology.[facility] Packed RBC (in units) 2023-12-22 17:45:18* Test Item Value Reference Range Interpretation Comme nts Unit Blood Type (test code = 4410) O Pos ISBT Blood Type Code (test code = 286178) 5100 Unit Number (test code = 4411) [id number] Blood Expiration Date & Time (test code = 466021) 841932912565 Status Information (test code = 4412) Released Product Identification (test code = 4413) Red Blood Cells Product Code (test code = 4414) [id number] Performed at [facility] Blood [address] Free: [phone] No. [id number] Cross Match Result (test code = 4409) Compatible [facility] Packed RBC (in units)2023-12-22 17:45:18* Test Item Value Reference Range Interpretation Comme nts Unit Blood Type (test code = 4410) O Pos ISBT Blood Type Code (test code = 687534) 5100 Unit Number (test code = 4411) [id number] Blood Expiration Date & Time (test code = 944991) 194771173651 Status Information (test code = 4412) Released Product Identification (test code = 4413) Red Blood Cells Product Code (test code = 4414) [id number] Performed at [facility] Blood [address] Free: [phone] No. [id number] Cross Match Result (test code = 4409) Compatible [facility] Packed RBC (in units)2023-12-22 17:45:18* Test Item Value Reference Range Interpretation Comme nts Unit Blood Type (test code = 4410) O Pos ISBT Blood Type Code (test code = 803936) 5100 Unit Number (test code = 4411) [id number] Blood Expiration Date & Time (test code = 998147) [id number] Status Information (test code = 4412) Released Product Identification (test code = 4413) Red Blood Cells Product Code (test code = 4414) [id number] Performed at [facility] Blood [address] Free: [phone] No. [id number] Cross Match Result (test code = 4409) Compatible [facility] and Screen - ONCE [id number] 14:37:00* Test Item Value Reference Range Interpretation Comme nts ABO & RH (test code = 20) O POSITIVE IAT (test code = 1185) Negative [facility] and Screen - ONCE [id number] 14:37:00* Test Item Value Reference Range Interpretation Comme nts ABO & RH (test code = 20) O POSITIVE IAT (test code = 1185) Negative [facility] - ONCE [id number] 14:37:00* Test Item Value Reference Range Interpretation Comme nts ABO & RH (test code = 20) O POSITIVE IAT (test code = 1185) Negative [facility] TaylorIntubation2024-08-10 14:10:00Puneet Gan MD ? ? 12/22/2023 10:18 AMIntubationDate/Time: 12/22/2023 9:10 AMUrgency: elective Airway not difficult General Information and Staff Patient location during procedure: ORPerformed: resident/MOTORCY[employer]CH[employer]IC Performed by: Puneet Gan MDAuthorized by: Kwame Bullock MD ? Indications and PatientConditionIndications for airway management: anesthesiaSpontaneous ventilation: presentSedation level: deepPreoxygenated: yesPatient position: sniffingMILS maintained throughoutMask difficulty assessment: 0 - not attempted Final Airway DetailsFinal airway type: endotracheal airway Successful airway:ETTCuffed: yes Successful intubation technique: direct laryngoscopyFacilitating devices/methods: intubating styletEndotracheal tube insertion site: oralBlade: MacintoshBlade size: #3ETT size (mm): 7.0Cormack-Lehane Classification: grade I - full view of glottisPlacement verified by: chest auscultation and capnometry Measured from: teethETT to teeth (cm): 21Number of attempts at approach: 1Ventilation between attempts: noneNumber of other approaches attempted: 0 Additional CommentsSmooth, atraumatic, dentition and lips unchanged from pre-op.[facility] Taylor[facility]par Packed RBC (in units)2023-12-21 01:55:17* Test Item Value Reference Range Interpretation Comme nts Unit Blood Type (test code = 4410) O Pos ISBT Blood Type Code (test code = 044756) 5100 Unit Number (test code = 4411) [id number] Blood Expiration Date & Time (test code = 061326) 554735667704 Status Information (test code = 4412) Issued Product Identification (test code = 4413) Red Blood Cells Product Code (test code = 4414) [id number] Performed at [facility] Blood [address] [place], [place] [address] Free: [phone] No. [id number] Cross Match Result (test code = 4409) Compatible [facility] Packed RBC (in units)2023-12-21 01:55:17* Test Item Value Reference Range Interpretation Comme [facility] Unit Blood Type (test code = 4410) O Pos ISBT Blood Type Code (test code = 809613) 5100 Unit Number (test code = 4411) [id number] Blood Expiration Date & Time (test code = 947142) 373722020622 Status Information (test code = 4412) Issued Product Identification (test code = 4413) Red Blood Cells Product Code (test code = 4414) [id number] Performed at [facility] [address] Free: [phone] No. [id number] Cross Match Result (test code = 4409) Compatible [facility] Packed RBC (in units)2023-12-21 01:55:17* Test Item Value Reference Range Interpretation Comme [facility] Unit Blood Type (test code = 4410) O Pos ISBT Blood Type Code (test code = 442627) 5100 Unit Number (test code = 4411) [id number] Blood Expiration Date & Time (test code = 682968) 175690924549 Status Information (test code = 4412) Issued Product Identification (test code = 4413) Red Blood Cells Product Code (test code = 4414) [id number] Performed at [facility] Blood [place] [address]Toll Free: [phone] No. [id number] Cross Match Result (test code = 4409) [facility]atible [facility] [id number] 19:19:36 * Test Item Value Reference Range Interpretation Comme nts TSH (test code = 5786362381) 9.51 0.45-4.70 H Lab Interpretation (test cod e = 19802-2) Abnormal [facility] [id number] 19:19:36 * Test Item Value Reference Range Interpretation Comme nts TSH (test code = 7855429421) 9.51 0.45-4.70 H Lab Interpretation (test cod e = 59071-2) Abnormal [facility] [id number] 19:19:36 * Test Item Value Reference Range Interpretation Comme nts TSH (test code = 3811351283) 9.51 0.45-4.70 H Lab Interpretation (test cod e = 93833-9) Abnormal [place] 66112024-08-08 19:05:36* Test Item Value Reference Range Interpretation Comme nts FREE T3 (test code = 6065972278) 2.58 pg/mL 2.77-5.27 L Lab Interpretation (test cod e = 24019-2) Abnormal [place] [id number] 19:05:36* Test Item Value Reference Range Interpretation Comme nts FREE T3 (test code = 5411354472) 2.58 pg/mL 2.77-5.27 L Lab Interpretation (test cod e = 34881-8) Abnormal [place] [id number] 19:05:36* Test Item Value Reference Range Interpretation Comme nts FREE T3 (test code = 5760957452) 2.58 pg/mL 2.77-5.27 L Lab Interpretation (test cod e = 62330-9) Abnormal [facility]2024-08-08 18:47:53* Test Item Value Reference Range Interpretation Comme nts MAGNESIUM (test code = 5990448037) 1.9 mg/dL 1.7-2.4 Lab Interpretation (test cod e = 85510-5) Normal [facility]2024-08-08 18:47:53* Test Item Value Reference Range Interpretation Comme nts MAGNESIUM (test code = 4873373244) 1.9 mg/dL 1.7-2.4 Lab Interpretation (test cod e = 91661-9) Normal [facility] TaylorMagnesium2024-08-08 18:47:53* Test Item Value Reference Range Interpretation Comme nts MAGNESIUM (test code = 8513941063) 1.9 mg/dL 1.7-2.4 Lab Interpretation (test cod e = 33015-8) Normal [facility] Taylor[facility] and Screen - ONCE [id number] 16:42:00* Test Item Value Reference Range Interpretation Comme nts ABO & RH (test code = 20) O POSITIVE IAT (test code = 1185) Negative [facility] and Screen - ONCE Glecega6008-95-75 16:42:00* Test Item Value Reference Range Interpretation Comme nts ABO & RH (test code = 20) O POSITIVE IAT (test code = 1185) Negative [facility] and Screen - ONCE [id number] 16:42:00* Test Item Value Reference Range Interpretation Comme nts ABO & RH (test code = 20) O POSITIVE IAT (test code = 1185) Negative [facility] ABDOMEN PELVIS W [id number] 16:09:23CT Abdomen and Pelvis with intravenous contrast. CLINICAL HISTORY: Hematuria, unknown cause. DOSE: Up-to-date CT equipment and radiation dose reduction techniques wereemployed. CTDIvol: ?9.81 mGy. DLP: 479.51 mGy-cm. TECHNIQUE : Contiguous axial imaging from the level of the lung basesthrough the pubic symphysis were performed after the uncomplicatedadministration of nonionic contrast material. ?Coronal and sagittalreconstructions were obtained. Auto mA and/or iterative reconstruction wereused to reduce radiation dose. FINDINGS: ? Lower lungs: Clear. No pleural effusion or pericardial effusion. Smallsliding- type hiatal hernia noted. Liver, Gallbladder and Spleen: Liver is shrunken, 10.5 cm in length andshowed nodular undulating serosal surface secondary to chronic liverdisease,/cirrhosis with portal hypertension causing small amount of freefluid in the right paracolic gutter and in the pelvis, dilated collateralcirculation surrounding spleen without any definite evidence of esophagealvarices. 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 Spleenmeasures 11.5 x 7.5 cm. Thickened gallbladder wall is noted with fluid in the pericholecysticspace, likely secondary to liver disease. Biliary ducts and pancreatic ductappear of normal size. Peritoneum: ?No free air or free fluid. Villatoro bcentimeter lymph nodes are seenin the periportal space and underneath the pancreas. Pancreas and Adrenals: ?Unremarkable pancreas and adrenal glands. Kidneys and Ureters: ?No visible calculi in the renal collecting systems. No hydroureter or hydronephrosis. No abnormal enhancement of the cortex ofkidneys noted. Focal areas of cortical scarring seen in both kidneys. Vessels: Moderate to severe diffuse atherosclerosis of aorta and iliacarteries. No abdominal aortic aneurysm. Retroperitoneum: No abnormal fluid or lymphadenopathy. Bowel: Constipation noted with moderate amount of retained fecal materialthroughout large bowel except in the sigmoid and rectum. Milddiverticulosis of the proximal sigmoid/distal descending colon notedwithout any acute changes of diverticulitis. Bladder and Reproductive Organs: ?Slightly thickened bladder bucio noted.Urinary bladder is not opacified by the intravenously injected contrastmedium. Bones: ?Exaggerated lumbar lordosis with mild levoscoliosis, htojs2ohbpryiaaickmalyk at L4-L5 and multilevel facet arthritis. ProminentSchmorl's node in the lower plate of L1 and T11 from remote trauma. Noaggressive bone lesions or any acute bony pathology detected. Soft tissues: Bilateral small sized indirect type inguinal herniacontaining fluid. CONCLUSION:1. Evidence of chronic liver disease, possibly cirrhosis with portalhypertension, nearly completely occluded portal vein and its centralbranches within the liver parenchyma, small amount of free fluid in t hepelvis.2. Small hiatal hernia, small bilateral inguinal hernias.3. S/P hysterectomy.4. No kidney stones or kidney lesions. No gross pathology in theunopacified urinary bladder.[facility] PELVIS W [id number] 16:09:23CT Abdomen and Pelvis with intravenous contrast. CLINICAL HISTORY: Hematuria, unknown cause. DOSE: Up-to-date CT equipment and radiation dose reduction techniques wereemployed. CTDIvol: ?9.81 mGy. DLP: 479.51 mGy-cm. TECHNIQUE : Contiguous axial imaging from the level of the lung basesthrough the pubic symphysis were performed after the uncomplicatedadministration of nonionic contrast material. ?Coronal and sagittalreconstructions were obtained. Auto mA and/or iterative reconstruction wereused to reduce radiation dose. FINDINGS: ? Lower lungs: Clear. No pleural effusion or pericardial effusion. Smallsliding-type hiatal hernia noted. Liver, Gallbladder and Spleen: Liver is shrunken, 10.5 cm in length andshowed nodular undulating serosal surface secondary to chronic liverdisease,/cirrhosis with portal hypertension causing small amount of freefluid in the right paracolic gutter and in the pelvis, dilated collateralcirculation surrounding spleen without any definite evidence of esophagealvarices. 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 Spleenmeasures 11.5 x 7.5 cm. Thickened gallbladder wall is noted with fluid in the pericholecysticspace, likely secondary to liver disease. Biliary ducts and pancreatic ductappear of normal size. Peritoneum: ?No free air or free fluid. Subcentimeter lymph nodes are seenin the periportal space and underneath the pancreas. Pancreas and Adrenals: ?Unremarkable pancreas and adrenal glands. Kidneys and Ureters: ?No visible calculi in the renal collecting systems. No hydroureter or hydronephrosis. No abnormal enhancement of the cortex ofkidneys noted. Focal areas of cortical scarring seen in both kidneys. Vessels: Moderate to severe diffuse atherosclerosis of aorta and iliacarteries. No abdominal aortic aneurysm. Retroperitoneum: No abnormal fluid or lymphadenopathy. Bowel: Constipation noted with moderate amount of retained fecal materialthroughout large bowel except in the sigmoid and rectum. Milddiverticulosis of the proximal sigmoid/distal descending colon notedwithout any acute changes of diverticulitis. Bladder and Reproductive Organs: ?Slightly thickened bladder bucio noted.Urinary bladder is not opacified by the intravenously injected contrastmedium. Bones: ?Exaggerated lumbar lordosis with mild levoscoliosis, lmlws0oqphyndkpgnnkevod at L4-L5 and multilevel facet arthritis. ProminentSchmorl's node in the lower plate of L1 and T11 from remote trauma. Noaggressive bone lesions or any acute bony pathology detected. Soft tissues: Bilateral small sized indirect type inguinal herniacontaining fluid. CONCLUSION:1. Evidence of chronic liver disease, possibly cirrhosis with portalhypertension, nearly completely occluded portal vein and its centralbranches within the liver parenchyma, small amount of free fluid in thepelvis.2. Small hiatal hernia, small bilateral inguinal hernias.3. S/P hysterectomy.4. No kidney stones or kidney lesions. No gross pathology in theunopacified urinary bladder.[facility] PELVIS W [id number] 16:09:23CT Abdomen and Pelvis with intravenous contrast. CLINICAL HISTORY: Hematuria, unknown cause. DOSE: Up-to-date CT equipment and radiation dose reduction techniques wereemployed. CTDIvol: ?9.81 mGy. DLP: 479.51 mGy-cm. TECHNIQUE : Contiguous axial imaging from the level of the lung basesthrough the pubic symphysis were performed after the uncomplicatedadministration of nonionic contrast material. ?Coronal and sagittalreconstructions were obtained. Auto mA and/or iterative reconstruction wereused to reduce radiation dose. FINDINGS: ? Lower lungs: Clear. No pleural effusion or pericardial effusion. Smallsliding-type hiatal hernia noted. Liver, Gallbladder and Spleen: Liver is shrunken, 10.5 cm in length andshowed nodular undulating serosal surface secondary to chronic liverdisease,/cirrhosis with portal hypertension causing small amount of freefluid in the right paracolic gutter and in the pelvis, dilated collateralcirculation surrounding spleen without any definite evidence of esophagealvarices. 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 Spleenmeasures 11.5 x 7.5 cm. Thickened gallbladder wall is noted with fluid in the pericholecysticspace, likely secondary to liver disease. Biliary ducts and pancreatic ductappear of normal size. Peritoneum: ?No free air or free fluid. Subcentimeter lymph nodes are seenin the periportal space and underneath the pancreas. Pancreas and Adrenals: ?Unremarkable pancreas and adrenal glands. Kidneys and Ureters: ?No visible calculi in the renal collecting systems. No hydroureter or hydronephrosis. No abnormal enhancement of the cortex ofkidneys noted. Focal areas of cortical scarring seen in both kidneys. Vessels: Moderate to severe diffuse atherosclerosis of aorta and iliacarteries. No abdominal aortic aneurysm. Retroperitoneum: No abnormal fluid or lymphadenopathy. Bowel: Constipation noted with moderate amount of retained fecal materialthroughout large bowel except in the sigmoid and rectum. Milddiverticulosis of the proximal sigmoid/distal descending colon notedwithout any acute changes of diverticulitis. Bladder and Reproductive Organs: ?Slightly thickened bladder bucio noted.Urinary bladder is not opacified by the intravenously injected contrastmedium. Bones: ?Exaggerated lumbar lordosis with mild levoscoliosis, hbgum8rncedhwbchaumlowt at L4-L5 and multilevel facet arthritis. ProminentSchmorl's node in the lower plate of L1 and T11 from remote trauma. Noaggressive bone lesions or any acute bony pathology detected. Soft tissues: Bilateral small sized indirect type inguinal herniacontaining fluid. CONCLUSION:1. Evidence of chronic liver disease, possibly cirrhosis with portalhypertension, nearly completely occluded portal vein and its centralbranches within the liver parenchyma, small amount of free fluid in thepelvis.2. Small hiatal hernia, small bilateral inguinal hernias.3. S/P hysterectomy.4. No kidney stones or kidney lesions. No gross pathology in theunopacified urinary bladder.[facility]. Metabolic Panel ([id number])2023-12-20 15:00:14* Test Item Value Reference Range Interpretation Comme nts NA (test code = 4443391448) 138 mmol/L 135-145 K (test code = 7990165192) 3.1 mmol/L 3.5-5.0 L CL (test code = 0405422081) 106 mmol/L 98-108 CO2 TOTAL (test code = 3225747280) 24 mmol/L 23-31 AGAP (test code = 1347861517) 8 2-16 BUN (test code = 7833734945) 13 mg/dL 7-23 GLUCOSE (test code = 0065387841) 109 mg/dL 70-110 CREATININE (test code = 2160-0) 0.71 mg/dL 0.50-1.04 TOTAL BILI (test code = 3766179743) 1.5 mg/dL 0.1-1.1 H CALCIUM (test code = 0904733557) 8.4 mg/dL 8.6-10.6 L T PROTEIN (test code = 3362044938) 6.1 g/dL 6.3-8.2 L ALBUMIN (test code = 9233672163) 3.2 g/dL 3.5-5.0 L ALK PHOS (test code = 7784262122) 110 U/L 34-122 ALTv (test code = 1742-6) 20 U/L 5-35 AST(SGOT) (test code = 9400571983) 41 U/L 13-40 H eGFR (test code = 16944-1) 94.5 mL/min/1.73m2 CKD-EPI eGFR (2020). Assuming creatinine has been stable day-to-day for at least three months, the eGFR indicates Category G1 (>= 90 mL/min/1.73 m2) Lab Interpretation (test code = 08540-3) Abnormal [facility]. Metabolic Panel ([id number])2023-12-20 15:00:14* Test Item Value Reference Range Interpretation Comme nts NA (test code = 2474303762) 138 mmol/L 135-145 K (test code = 3257606872) 3.1 mmol/L 3.5-5.0 L CL (test code = 2138891896) 106 mmol/L 98-108 CO2 TOTAL (test code = 1623591198) 24 mmol/L 23-31 AGAP (test code = 4306791021) 8 2-16 BUN (test code = 8039748667) 13 mg/dL 7-23 GLUCOSE (test code = 2459513941) 109 mg/dL 70-110 CREATININE (test code = 2160-0) 0.71 mg/dL 0.50-1.04 TOTAL BILI (test code = 8298224033) 1.5 mg/dL 0.1-1.1 H CALCIUM (test code = 8591591549) 8.4 mg/dL 8.6-10.6 L T PROTEIN (test code = 6354518947) 6.1 g/dL 6.3-8.2 L ALBUMIN (test code = 5793126418) 3.2 g/dL 3.5-5.0 L ALK PHOS (test code = 9970834883) 110 U/L 34-122 ALTv (test code = 1742-6) 20 U/L 5-35 AST(SGOT) (test code = 8816132619) 41 U/L 13-40 H eGFR (test code = 07769-9) 94.5 mL/min/1.73m2 CKD-EPI eGFR (2020). Assuming creatinine has been stable day-to-day for at least three months, the eGFR indicates Category G1 (>= 90 mL/min/1.73 m2) Lab Interpretation (test code = 54648-7) Abnormal [facility]. Metabolic Panel ([id number])2023-12-20 15:00:14* Test Item Value Reference Range Interpretation Comme nts NA (test code = 3265097356) 138 mmol/L 135-145 K (test code = 5118144702) 3.1 mmol/L 3.5-5.0 L CL (test code = 2240596508) 106 mmol/L 98-108 CO2 TOTAL (test code = 9725388416) 24 mmol/L 23-31 AGAP (test code = 7517594891) 8 2-16 BUN (test code = 1145212870) 13 mg/dL 7-23 GLUCOSE (test code = 9691867050) 109 mg/dL 70-110 CREATININE (test code = 2160-0) 0.71 mg/dL 0.50-1.04 TOTAL BILI (test code = 1105281319) 1.5 mg/dL 0.1-1.1 H CALCIUM (test code = 5407288012) 8.4 mg/dL 8.6-10.6 L T PROTEIN (test code = 1205202901) 6.1 g/dL 6.3-8.2 L ALBUMIN (test code = 8081880320) 3.2 g/dL 3.5-5.0 L ALK PHOS (test code = 3975251753) 110 U/L 34-122 ALTv (test code = 1742-6) 20 U/L 5-35 AST(SGOT) (test code = 7023730643) 41 U/L 13-40 H eGFR (test code = 20585-1) 94.5 mL/min/1.73m2 CKD-EPI eGFR (2020). Assuming creatinine has been stable day-to-day for at least three months, the eGFR indicates Category G1 (>= 90 mL/min/1.73 m2) Lab Interpretation (test code = 21223-5) Abnormal [facility] with [id number] 14:57:42* Test Item Value Reference Range Interpretation Comme nts WBC (test code = 6690-2) 5.03 4.30-11.10 RBC (test code = 789-8) 2.28 3.93-5.25 L HGB (test code = 718-7) 6.3 g/dL 11.6-15.0 L HCT (test code = 4544-3) 20.1 % 35.7-45.2 L MCV (test code = 787-2) 88.2 fL 80.6-95.5 MCH (test code = 785-6) 27.6 pg 25.9-32.8 MCHC (test code = 786-4) 31.3 g/dL 31.6-35.1 L RDW-SD (test code = 41956-9) 52.6 fL 39.0-49.9 H RDW-CV (test code = 788-0) 16.9 % 12.0-15.5 H PLT (test code = 777-3) 103 166-358 L MPV (test code = 72176-9) 11.7 fL 9.5-12.9 IPF % (test code = 7644667977) 6.3 % 1.3-7.7 Platelet count measured by fluorescence method. NRBC/100 WBC (test code = 2028189742) 0.0 0.0-10.0 NRBC x10^3 (test code = 4895296973) See_Comment [Automated [employer] ge] The system which generated this result transmitted reference range: 10*3/?L. The reference range was not used to interpret this result as normal/abnormal. GRAN MAT (NEUT) % (test code = 770-8) 66.7 % IMM GRAN % (test code = 2070210546) 0.40 % LYMPH % (test code = 736-9) 20.3 % MONO % (test code = 5905-5) 7.8 % EOS % (test code = 713-8) 3.6 % BASO % (test code = 706-2) 1.2 % GRAN MAT x10^3(ANC) (test code = 6568654330) 3.36 10*3/uL 1.88-7.09 IMM GRAN x10^3 (test code = 3104079124) 0.00-0.06 LYMPH x10^3 (test code = 731-0) 1.02 10*3/uL 1.32-3.29 L MONO x10^3 (test code = 742-7) 0.39 10*3/uL 0.33-0.92 EOS x10^3 (test code = 711-2) 0.18 10*3/uL 0.03-0.39 BASO x10^3 (test code = 704-7) 0.06 10*3/uL 0.01-0.07 Lab Interpretation (test code = 23528-5) Abnormal [facility] with [id number] 14:57:42* Test Item Value Reference Range Interpretation Comme nts WBC (test code = 6690-2) 5.03 4.30-11.10 RBC (test code = 789-8) 2.28 3.93-5.25 L HGB (test code = 718-7) 6.3 g/dL 11.6-15.0 L HCT (test code = 4544-3) 20.1 % 35.7-45.2 L MCV (test code = 787-2) 88.2 fL 80.6-95.5 MCH (test code = 785-6) 27.6 pg 25.9-32.8 MCHC (test code = 786-4) 31.3 g/dL 31.6-35.1 L RDW-SD (test code = 69703-0) 52.6 fL 39.0-49.9 H RDW-CV (test code = 788-0) 16.9 % 12.0-15.5 H PLT (test code = 777-3) 103 166-358 L MPV (test code = 05263-2) 11.7 fL 9.5-12.9 IPF % (test code = 4916338288) 6.3 % 1.3-7.7 Platelet count measured by fluorescence method. NRBC/100 WBC (test code = 6623146820) 0.0 0.0-10.0 NRBC x10^3 (test code = 8955431790) See_Comment [Automated messa ge] The system which generated this result transmitted reference range: 10*3/?L. The reference range was not used to interpret this result as normal/abnormal. GRAN MAT (NEUT) % (test code = 770-8) 66.7 % IMM GRAN % (test code = 0597818029) 0.40 % LYMPH % (test code = 736-9) 20.3 % MONO % (test code = 5905-5) 7.8 % EOS % (test code = 713-8) 3.6 % BASO % (test code = 706-2) 1.2 % GRAN MAT x10^3(ANC) (test code = 8985657816) 3.36 10*3/uL 1.88-7.09 IMM GRAN x10^3 (test code = 7556556961) 0.00-0.06 LYMPH x10^3 (test code = 731-0) 1.02 10*3/uL 1.32-3.29 L MONO x10^3 (test code = 742-7) 0.39 10*3/uL 0.33-0.92 EOS x10^3 (test code = 711-2) 0.18 10*3/uL 0.03-0.39 BASO x10^3 (test code = 704-7) 0.06 10*3/uL 0.01-0.07 Lab Interpretation (test code = 90426-0) Abnormal [facility] with [id number] 14:57:42* Test Item Value Reference Range Interpretation Comme nts WBC (test code = 6690-2) 5.03 4.30-11.10 RBC (test code = 789-8) 2.28 3.93-5.25 L HGB (test code = 718-7) 6.3 g/dL 11.6-15.0 L HCT (test code = 4544-3) 20.1 % 35.7-45.2 L MCV (test code = 787-2) 88.2 fL 80.6-95.5 MCH (test code = 785-6) 27.6 pg 25.9-32.8 MCHC (test code = 786-4) 31.3 g/dL 31.6-35.1 L RDW-SD (test code = 03820-0) 52.6 fL 39.0-49.9 H RDW-CV (test code = 788-0) 16.9 % 12.0-15.5 H PLT (test code = 777-3) 103 166-358 L MPV (test code = 25572-1) 11.7 fL 9.5-12.9 IPF % (test code = 4954189806) 6.3 % 1.3-7.7 Platelet count measured by fluorescence method. NRBC/100 WBC (test code = 9736180814) 0.0 0.0-10.0 NRBC x10^3 (test code = 5009189550) See_Comment [Automated [employer] ge] The system which generated this result transmitted reference range: 10*3/?L. The reference range was not used to interpret this result as normal/abnormal. GRAN MAT (NEUT) % (test code = 770-8) 66.7 % IMM GRAN % (test code = 5979620394) 0.40 % LYMPH % (test code = 736-9) 20.3 % MONO % (test code = 5905-5) 7.8 % EOS % (test code = 713-8) 3.6 % BASO % (test code = 706-2) 1.2 % GRAN MAT x10^3(ANC) (test code = 8996148832) 3.36 10*3/uL 1.88-7.09 IMM GRAN x10^3 (test code = 9460965703) 0.00-0.06 LYMPH x10^3 (test code = 731-0) 1.02 10*3/uL 1.32-3.29 L MONO x10^3 (test code = 742-7) 0.39 10*3/uL 0.33-0.92 EOS x10^3 (test code = 711-2) 0.18 10*3/uL 0.03-0.39 BASO x10^3 (test code = 704-7) 0.06 10*3/uL 0.01-0.07 Lab Interpretation (test code = 56189-9) [facility] [id number] 05:48:33* Test Item Value Reference Range Interpretation Comme nts AFP, TUMOR MARKER (test code = 93966) 2.41 NG/ML <=8.30 TSH, THIRD [id number] 05:13:58* Test Item Value Reference Range Interpretation Comme nts TSH, THIRD GENERATION (test code = 2821) 2.250 UIU/ML 0.400-4.100 HEMOGLOBIN [id number] 04:17:24* Test Item Value Reference Range Interpretation Comme nts HEMOGLOBIN A1c (test code = 88249) 5.1 % 4.2-5.6 UNLESS OTHERWISE INDICATED, ALL TESTING PERFORMED AT [facility] [address] [place] [address] MOTOR COACH OPERATOR: SALENA BOTELLO M.D. CLIA NUMBER [id number] [facility]. [id number] HEMOGLOBIN [id number] 00:00:00* Test Item Value Reference Range Interpretation Comme nts HEMOGLOBIN A1c (test code = 81573) 5.1 % Jonatan Barber AustinAFP, TUMOR [id number] 00:00:00* Test Item Value Reference Range Interpretation Comme nts AFP, TUMOR MARKER (test code = 04704) 2.41 NG/ML Jonatan F [id number] 00:00:00* Test Item Value Reference Range Interpretation Comme nts TSH, THIRD GENERATION (test code = 2821) 2.250 UIU/ML Jonatan F AustinHEMOGLOBIN [id number] 00:00:00* Test Item Value Reference Range Interpretation Comme nts HEMOGLOBIN A1c (test code = 46504) 5.1 % Jonatan F AustinAFP, TUMOR [id number] 00:00:00* Test Item Value Reference Range Interpretation Comme nts AFP, TUMOR MARKER (test code = 24162) 2.41 NG/ML Jonatan F [id number] 00:00:00* Test Item Value Reference Range Interpretation Comme nts TSH, THIRD GENERATION (test code = 2821) 2.250 UIU/ML Jonatan F AustinHEMOGLOBIN [id number] 00:00:00* Test Item Value Reference Range Interpretation Comme nts HEMOGLOBIN A1c (test code = 14266) 5.1 % Jonatan F AustinAFP, TUMOR [id number] 00:00:00* Test Item Value Reference Range Interpretation Comme nts AFP, TUMOR MARKER (test code = 10336) 2.41 NG/ML Jonatan F [id number] 00:00:00* Test Item Value Reference Range Interpretation Comme nts TSH, THIRD GENERATION (test code = 2821) 2.250 UIU/ML Jonatan F AustinPOCT URINALYSIS W SPECIFIC [id number] 19:16:00* Test Item Value Reference Range Interpretation Comme nts POCT U SP GRAV (test code = 3255) 1.020 mg/dl 1.005-1.025 POCT PH U (test code = 3254) 5 mg/dl 5-8 POCT U LEUK EST (test code = 3263) Negative Negative - Negative POCT U NIT (test code = 3262) Negative Negative - Negati ve POCT U PROT (test code = 3259) Negative Negative - Negative POCT U GLU (test code = 3256) Normal Negative - Negati ve POCT U KETONE (test code = 3258) Negative Negative - Negative POCT U UROBILI (test code = 3260) Normal 0.2-1 POCT U BILI (test code = 3261) Negative Negative - Negative POCT U BLD (test code = 3257) Trace Negative - Negati ve POCT U COLOR (test code = 3266) yellow POCT U APPEAR (test code = 3267) hazy Lab Interpretation (test cod e = 81624-2) Normal [facility] URINALYSIS W SPECIFIC [id number] 19:16:00* Test Item Value Reference Range Interpretation Comme nts POCT U SP GRAV (test code = 3255) 1.020 mg/dl 1.005-1.025 POCT PH U (test code = 3254) 5 mg/dl 5-8 POCT U LEUK EST (test code = 3263) Negative Negative - Negative POCT U NIT (test code = 3262) Negative Negative - Negati ve POCT U PROT (test code = 3259) Negative Negative - Negative POCT U GLU (test code = 3256) Normal Negative - Negati ve POCT U KETONE (test code = 3258) Negative Negative - Negative POCT U UROBILI (test code = 3260) Normal 0.2-1 POCT U BILI (test code = 3261) Negative Negative - Negative POCT U BLD (test code = 3257) Trace Negative - Negati ve POCT U COLOR (test code = 3266) yellow POCT U APPEAR (test code = 3267) hazy Lab Interpretation (test cod e = 06316-6) Normal [facility] URINALYSIS W SPECIFIC [id number] 19:16:00* Test Item Value Reference Range Interpretation Comme nts POCT U SP GRAV (test code = 3255) 1.020 mg/dl 1.005-1.025 POCT PH U (test code = 3254) 5 mg/dl 5-8 POCT U LEUK EST (test code = 3263) Negative Negative - Negative POCT U NIT (test code = 3262) Negative Negative - Negati ve POCT U PROT (test code = 3259) Negative Negative - Negative POCT U GLU (test code = 3256) Normal Negative - Negati ve POCT U KETONE (test code = 3258) Negative Negative - Negative POCT U UROBILI (test code = 3260) Normal 0.2-1 POCT U BILI (test code = 3261) Negative Negative - Negative POCT U BLD (test code = 3257) Trace Negative - Negati ve POCT U COLOR (test code = 3266) yellow POCT U APPEAR (test code = 3267) hazy Lab Interpretation (test cod e = 78652-1) Normal [facility] URINALYSIS W SPECIFIC [id number] 19:16:00* Test Item Value Reference Range Interpretation Comme nts POCT U SP GRAV (test code = 3255) 1.020 mg/dl 1.005-1.025 POCT PH U (test code = 3254) 5 mg/dl 5-8 POCT U LEUK EST (test code = 3263) Negative Negative - Negative POCT U NIT (test code = 3262) Negative Negative - Negati ve POCT U PROT (test code = 3259) Negative Negative - Negative POCT U GLU (test code = 3256) Normal Negative - Negati ve POCT U KETONE (test code = 3258) Negative Negative - Negative POCT U UROBILI (test code = 3260) Normal 0.2-1 POCT U BILI (test code = 3261) Negative Negative - Negative POCT U BLD (test code = 3257) Trace Negative - Negati ve POCT U COLOR (test code = 3266) yellow POCT U APPEAR (test code = 3267) hazy Lab Interpretation (test cod e = 71122-0) Normal [facility] URINALYSIS, [id number] 15:26:00 * Test Item Value Reference Range Interpretation Comme nts POCT U SP GRAV (test code = 3255) 1.020 mg/dl 1.005-1.025 POCT PH U (test code = 3254) 5.5 mg/dl 5-8 POCT U LEUK EST (test code = 3263) Negative Negative - Negative POCT U NIT (test code = 3262) Negative Negative - Negati ve POCT U PROT (test code = 3259) Negative Negative - Negative POCT U GLU (test code = 3256) Negative Negative - Negati ve POCT U KETONE (test code = 3258) Negative Negative - Negative POCT U UROBILI (test code = 3260) 0.2 mg/dl 0.2-1 POCT U BILI (test code = 3261) Negative Negative - Negative POCT U BLD (test code = 3257) Negative Negative - Negati ve POCT U COLOR (test code = 3266) Yellow POCT U APPEAR (test code = 3267) Clear Lab Interpretation (test cod e = 66944-4) Normal [facility] URINALYSIS, [id number] 15:26:00 * Test Item Value Reference Range Interpretation Comme nts POCT U SP GRAV (test code = 3255) 1.020 mg/dl 1.005-1.025 POCT PH U (test code = 3254) 5.5 mg/dl 5-8 POCT U LEUK EST (test code = 3263) Negative Negative - Negative POCT U NIT (test code = 3262) Negative Negative - Negati ve POCT U PROT (test code = 3259) Negative Negative - Negative POCT U GLU (test code = 3256) Negative Negative - Negati ve POCT U KETONE (test code = 3258) Negative Negative - Negative POCT U UROBILI (test code = 3260) 0.2 mg/dl 0.2-1 POCT U BILI (test code = 3261) Negative Negative - Negative POCT U BLD (test code = 3257) Negative Negative - Negati ve POCT U COLOR (test code = 3266) Yellow POCT U APPEAR (test code = 3267) Clear Lab Interpretation (test cod e = 40924-9) Normal [facility] URINALYSIS W/O SPECIFIC [id number] 16:08:00* Test Item Value Reference Range Interpretation Comme nts POCT PH U (test code = 3254) 6 mg/dl 5-8 POCT U LEUK EST (test code = 3263) neg Negative - Negative POCT U NIT (test code = 3262) neg Negative - Negati ve POCT U PROT (test code = 3259) 100 Negative - Negat christine POCT U GLU (test code = 3256) neg Negative - Negati ve POCT U KETONE (test code = 3258) neg Negative - Neg ative POCT U BLD (test code = 3257) 250 Negative - Negati ve [facility]/O SPECIFIC [id number] 16:08:00* Test Item Value Reference Range Interpretation Comme nts POCT PH U (test code = 3254) 6 mg/dl 5-8 POCT U LEUK EST (test code = 3263) neg Negative - Negative POCT U NIT (test code = 3262) neg Negative - Negati ve POCT U PROT (test code = 3259) 100 Negative - Negat christine POCT U GLU (test code = 3256) neg Negative - Negati ve POCT U KETONE (test code = 3258) neg Negative - Neg ative POCT U BLD (test code = 3257) 250 Negative - Negati ve [facility] TaylorTRANSFERRIN2023-08-11 06:51:59* Test Item Value Reference Range Interpretation Comme nts TRANSFERRIN (test code = 4936) 332 MG/DL 200-360 UNLESS OTHERWISE INDICATED, ALL TESTING PERFORMED AT [facility] [address] [place] [address] MOTOR COACH OPERATOR: SALENA BOTELLO M.D. CLIA NUMBER [id number] [place]. [id number] HEMOGLOBIN [id number] 06:42:40* Test Item Value Reference Range Interpretation Comme nts HEMOGLOBIN A1c (test code = 87375) 5.0 % 4.2-5.6 CBC W/AUTO DIFF WITH [id number] 06:22:48* Test Item Value Reference Range Interpretation Comme nts WBC (test code = 1001) 4.6 K/UL 3.5-11.0 RBC (test code = 1002) 3.98 M/UL 3.80-5.40 HEMOGLOBIN (test code = 1003) 12.7 G/DL 11.5-15.5 HEMATOCRIT (test code = 1004) 37.8 % 34.0-45.0 MCV (test code = 1005) 95.0 fL 80.0-99.0 MCH (test code = 1006) 31.9 PG 25.0-33.0 MCHC (test code = 1007) 33.6 G/DL 31.0-36.0 RDW (test code = 1038) 15.5 % 11.5-15.0 H NEUTROPHILS (test code = 1008) 67.7 % LYMPHOCYTES (test code = 1010) 19.6 % MONOCYTES (test code = 1011) 8.3 % EOSINOPHILS (test code = 1012) 3.3 % BASOPHILS (test code = 1013) 0.9 % IMMATURE GRANULOCYTES (test code = 1036) 0.2 % NUCLEATED RBCS (test code = 1065) 0.0 /100 WBC'S See_Comment [Automated [employer] ge] The system which generated this result transmitted reference range: 0.0. The reference range was not used to interpret this result as normal/abnormal. PLATELET COUNT (test code = 1015) 88 K/UL 130-400 L ABSOLUTE NEUTROPHILS (test code = 1066) 3.12 K/UL 1.50-7.50 ABSOLUTE LYMPHOCYTES (test code = 1067) 0.90 K/UL 1.00-4.00 L ABSOLUTE MONOCYTES (test code = 1068) 0.38 K/UL 0.20-1.00 ABSOLUTE EOSINOPHILS (test code = 1040) 0.15 K/UL 0.00-0.50 ABSOLUTE BASOPHILS (test code = 1069) 0.04 K/UL 0.00-0.20 ABS IMMATURE GRANULOCYTES (test code = 1020) 0.01 K/UL 0.00-0.10 ABS NUCLEATED RBCS (test code = 74815) 0.00 K/UL 0.00-0.11 [id number] 06:06:10* Test Item Value Reference Range Interpretation Comme nts FERRITIN (test code = 2075) 29 NG/ML 13-200 COMPREHENSIVE METABOLIC [id number] 05:58:49* Test Item Value Reference Range Interpretation Comme nts GLUCOSE (test code = 2217) 97 MG/DL 70-99 BUN (test code = 2208) 14 MG/DL 8-23 CREATININE (test code = 2213) 0.69 MG/DL 0.60-1.30 eGFR (2020 CKD-EPI) (test code = ) 97 ML/MIN/1.73 >60 CALC BUN/CREAT (test code = 2234) 20 RATIO 6-28 SODIUM (test code = 2230) 144 MEQ/L 133-146 POTASSIUM (test code = 2227) 4.1 MEQ/L 3.5-5.4 CHLORIDE (test code = 2214) 109 MEQ/L 95-107 H CARBON DIOXIDE (test code = 2205) 23 MEQ/L 19-31 CALCIUM (test code = 2208) 9.2 MG/DL 8.5-10.5 PROTEIN, TOTAL (test code = 2228) 6.8 G/DL 6.1-8.3 ALBUMIN (test code = 2200) 4.1 G/DL 3.5-5.2 CALC GLOBULIN (test code = 2239) 2.7 G/DL 1.9-3.7 CALC A/G RATIO (test code = 2233) 1.5 RATIO 1.0-2.6 BILIRUBIN, TOTAL (test code = 2206) 0.8 MG/DL See_Comment [Automated me ssage] The system which generated this result transmitted reference range: <=1.2. The reference range was not used to interpret this result as normal/abnormal. ALKALINE PHOSPHATASE (test code = 2203) 125 U/L 40-140 AST (test code = 2217) 49 U/L 9-40 H ALT (test code = 2218) 32 U/L 5-40 IRON BINDING CAPACITY AND IRON AND % [id number] 05:58:49* Test Item Value Reference Range Interpretation Comme nts IRON, SERUM (test code = 2221) 63 UG/DL 37-145 UNSATURATED IBC (test code = ) 333 UG/DL 112-347 CALC TOTAL IBC (test code = 2076) 396 UG/DL 250-450 CALC % IRON SAT (test code = 2078) 16 % 20-50 L LIPID [id number] 05:58:49* Test Item Value Reference Range Interpretation Comme nts CHOLESTEROL (test code = 2209) 157 MG/DL <200 TRIGLYCERIDES (test code = 2232) 78 MG/DL <150 HDL CHOLESTEROL (test code = 2220) 74 MG/DL >39 CALC LDL CHOL (test code = 2237) 67 MG/DL <100 NOTE: CALCULATED LDL IS BASED ON OJ-HERNANDES METHOD WHICHINCLUDES ADJUSTABLE TRIGLYCERIDE:VLDL CHOLESTEROL RATIO.THIS FACTOR VARIES BY MEASURED TRIGLYCERIDE AND NON-HDLCHOLESTEROL CONCENTRATIONS WITH INCREASED CALCULATED LDL SEENIN HIGHER TRIGLYCERIDE OR LOWER NON-HDL SPECIMENS. FOR MOREINFORMATION, SEE CLIENT ANNOUNCEMENT AT [email or web address] RISK RATIO LDL/HDL (test code = 2238) 0.91 RATIO <3.22 LIPID [id number] 00:00:00* Test Item Value Reference Range Interpretation Comme nts CHOLESTEROL (test code = 2210) 157 MG/DL TRIGLYCERIDES (test code = 2232) 78 MG/DL HDL CHOLESTEROL (test code = 2220) 74 MG/DL CALC LDL CHOL (test code = 2237) 67 MG/DL RISK RATIO LDL/HDL (test cod e = 2238) 0.91 RATIO Jonatan EasonCOMPREHENSIVE METABOLIC [id number] 00:00:00* Test Item Value Reference Range Interpretation Comme nts GLUCOSE (test code = 2217) 97 MG/DL BUN (test code = 2208) 14 MG/DL CREATININE (test code = 2214) 0.69 MG/DL eGFR (2020 CKD-EPI) (test co de = 92499) 97 ML/MIN/1.73 CALC BUN/CREAT (test code = 2235) 20 RATIO SODIUM (test code = 2231) 144 MEQ/L POTASSIUM (test code = 2228) 4.1 MEQ/L CHLORIDE (test code = 2215) 109 MEQ/L CARBON DIOXIDE (test code = 2206) 23 MEQ/L CALCIUM (test code = 2209) 9.2 MG/DL PROTEIN, TOTAL (test code = 2229) 6.8 G/DL ALBUMIN (test code = 2201) 4.1 G/DL CALC GLOBULIN (test code = 2240) 2.7 G/DL CALC A/G RATIO (test code = 2234) 1.5 RATIO BILIRUBIN, TOTAL (test code = 2207) 0.8 MG/DL ALKALINE PHOSPHATASE (test code = 2204) 125 U/L AST (test code = 2218) 49 U/L ALT (test code = 2219) 32 U/L Jonatan EasonIRON BINDING CAPACITY AND IRON AND % [id number] 00:00:00* Test Item Value Reference Range Interpretation Comme nts IRON, SERUM (test code = 2222) 63 UG/DL UNSATURATED IBC (test code = 68399) 333 UG/DL CALC TOTAL IBC (test code = 2076) 396 UG/DL CALC % IRON SAT (test code = 2078) 16 % Jonatan [id number] 00:00:00* Test Item Value Reference Range Interpretation Comme nts FERRITIN (test code = 2074) 29 NG/ML Jonatan [id number] 00:00:00* Test Item Value Reference Range Interpretation Comme nts TRANSFERRIN (test code = 4936) 332 MG/DL Jonatan EasonCBC W/AUTO [id number] 00:00:00* Test Item Value Reference Range Interpretation Comme nts WBC (test code = 1001) 4.6 K/UL RBC (test code = 1002) 3.98 M/UL HEMOGLOBIN (test code = 1003) 12.7 G/DL HEMATOCRIT (test code = 1004) 37.8 % MCV (test code = 1005) 95.0 fL MCH (test code = 1006) 31.9 PG MCHC (test code = 1007) 33.6 G/DL RDW (test code = 1038) 15.5 % NEUTROPHILS (test code = 1008) 67.7 % LYMPHOCYTES (test code = 1010) 19.6 % MONOCYTES (test code = 1011) 8.3 % EOSINOPHILS (test code = 1012) 3.3 % BASOPHILS (test code = 1013) 0.9 % IMMATURE GRANULOCYTES (test code = 1036) 0.2 % NUCLEATED RBCS (test code = 1065) 0.0 /100WBC'S PLATELET COUNT (test code = 1015) 88 K/UL ABSOLUTE NEUTROPHILS (test c ode = 1066) 3.12 K/UL ABSOLUTE LYMPHOCYTES (test c ode = 1067) 0.90 K/UL ABSOLUTE MONOCYTES (test cod e = 1068) 0.38 K/UL ABSOLUTE EOSINOPHILS (test c ode = 1040) 0.15 K/UL ABSOLUTE BASOPHILS (test cod e = 1069) 0.04 K/UL ABS IMMATURE GRANULOCYTES (t est code = 1020) 0.01 K/UL ABS NUCLEATED RBCS (test cod e = 43346) 0.00 K/UL Jonatan EasonHEMOGLOBIN [id number] 00:00:00* Test Item Value Reference Range Interpretation Comme nts HEMOGLOBIN A1c (test code = 76528) 5.0 % Jonatan EasonLIPID [id number] 00:00:00* Test Item Value Reference Range Interpretation Comme nts CHOLESTEROL (test code = 2210) 157 MG/DL TRIGLYCERIDES (test code = 2232) 78 MG/DL HDL CHOLESTEROL (test code = 2220) 74 MG/DL CALC LDL CHOL (test code = 2237) 67 MG/DL RISK RATIO LDL/HDL (test cod e = 2238) 0.91 RATIO Jonatan EasonCOMPREHENSIVE METABOLIC [id number] 00:00:00* Test Item Value Reference Range Interpretation Comme nts GLUCOSE (test code = 2217) 97 MG/DL BUN (test code = 2208) 14 MG/DL CREATININE (test code = 2214) 0.69 MG/DL eGFR (2020 CKD-EPI) (test co de = 97640) 97 ML/MIN/1.73 CALC BUN/CREAT (test code = 2235) 20 RATIO SODIUM (test code = 2231) 144 MEQ/L POTASSIUM (test code = 2228) 4.1 MEQ/L CHLORIDE (test code = 2215) 109 MEQ/L CARBON DIOXIDE (test code = 2206) 23 MEQ/L CALCIUM (test code = 2209) 9.2 MG/DL PROTEIN, TOTAL (test code = 2229) 6.8 G/DL ALBUMIN (test code = 2201) 4.1 G/DL CALC GLOBULIN (test code = 2240) 2.7 G/DL CALC A/G RATIO (test code = 2234) 1.5 RATIO BILIRUBIN, TOTAL (test code = 2207) 0.8 MG/DL ALKALINE PHOSPHATASE (test code = 2204) 125 U/L AST (test code = 2218) 49 U/L ALT (test code = 2219) 32 U/L Jonatan EasonIRON BINDING CAPACITY AND IRON AND % [id number] 00:00:00* Test Item Value Reference Range Interpretation Comme nts IRON, SERUM (test code = 2222) 63 UG/DL UNSATURATED IBC (test code = 93637) 333 UG/DL CALC TOTAL IBC (test code = 2076) 396 UG/DL CALC % IRON SAT (test code = 2078) 16 % Jonatan [id number] 00:00:00* Test Item Value Reference Range Interpretation Comme nts FERRITIN (test code = 2075) 29 NG/ML Jonatan Barber [id number] 00:00:00* Test Item Value Reference Range Interpretation Comme nts TRANSFERRIN (test code = 4936) 332 MG/DL Jonatan EasonCBC W/AUTO [id number] 00:00:00* Test Item Value Reference Range Interpretation Comme nts WBC (test code = 1001) 4.6 K/UL RBC (test code = 1002) 3.98 M/UL HEMOGLOBIN (test code = 1003) 12.7 G/DL HEMATOCRIT (test code = 1004) 37.8 % MCV (test code = 1005) 95.0 fL MCH (test code = 1006) 31.9 PG MCHC (test code = 1007) 33.6 G/DL RDW (test code = 1038) 15.5 % NEUTROPHILS (test code = 1008) 67.7 % LYMPHOCYTES (test code = 1010) 19.6 % MONOCYTES (test code = 1011) 8.3 % EOSINOPHILS (test code = 1012) 3.3 % BASOPHILS (test code = 1013) 0.9 % IMMATURE GRANULOCYTES (test code = 1036) 0.2 % NUCLEATED RBCS (test code = 1065) 0.0 /100WBC'S PLATELET COUNT (test code = 1015) 88 K/UL ABSOLUTE NEUTROPHILS (test c ode = 1066) 3.12 K/UL ABSOLUTE LYMPHOCYTES (test c ode = 1067) 0.90 K/UL ABSOLUTE MONOCYTES (test cod e = 1068) 0.38 K/UL ABSOLUTE EOSINOPHILS (test c ode = 1040) 0.15 K/UL ABSOLUTE BASOPHILS (test cod e = 1069) 0.04 K/UL ABS IMMATURE GRANULOCYTES (t est code = 1020) 0.01 K/UL ABS NUCLEATED RBCS (test cod e = 57142) 0.00 K/UL Jonatan EasonHEMOGLOBIN [id number] 00:00:00* Test Item Value Reference Range Interpretation Comme nts HEMOGLOBIN A1c (test code = 75948) 5.0 % Jonatan EasonLIPID [id number] 00:00:00* Test Item Value Reference Range Interpretation Comme nts CHOLESTEROL (test code = 2210) 157 MG/DL TRIGLYCERIDES (test code = 2232) 78 MG/DL HDL CHOLESTEROL (test code = 2220) 74 MG/DL CALC LDL CHOL (test code = 2237) 67 MG/DL RISK RATIO LDL/HDL (test cod e = 2238) 0.91 RATIO Jonatan EasonCOMPREHENSIVE METABOLIC [id number] 00:00:00* Test Item Value Reference Range Interpretation Comme nts GLUCOSE (test code = 2217) 97 MG/DL BUN (test code = 2208) 14 MG/DL CREATININE (test code = 2214) 0.69 MG/DL eGFR (2020 CKD-EPI) (test co de = 68624) 97 ML/MIN/1.73 CALC BUN/CREAT (test code = 2235) 20 RATIO SODIUM (test code = 2231) 144 MEQ/L POTASSIUM (test code = 2228) 4.1 MEQ/L CHLORIDE (test code = 2215) 109 MEQ/L CARBON DIOXIDE (test code = 2206) 23 MEQ/L CALCIUM (test code = 2209) 9.2 MG/DL PROTEIN, TOTAL (test code = 2229) 6.8 G/DL ALBUMIN (test code = 2201) 4.1 G/DL CALC GLOBULIN (test code = 2240) 2.7 G/DL CALC A/G RATIO (test code = 2234) 1.5 RATIO BILIRUBIN, TOTAL (test code = 2207) 0.8 MG/DL ALKALINE PHOSPHATASE (test code = 2204) 125 U/L AST (test code = 2218) 49 U/L ALT (test code = 2219) 32 U/L Jonatan EasonIRON BINDING CAPACITY AND IRON AND % [id number] 00:00:00* Test Item Value Reference Range Interpretation Comme nts IRON, SERUM (test code = 2221) 63 UG/DL UNSATURATED IBC (test code = ) 333 UG/DL CALC TOTAL IBC (test code = 2076) 396 UG/DL CALC % IRON SAT (test code = 2079) 16 % Jonatan [id number] 00:00:00* Test Item Value Reference Range Interpretation Comme nts FERRITIN (test code = 2075) 29 NG/ML Jonatan [id number] 00:00:00* Test Item Value Reference Range Interpretation Comme nts TRANSFERRIN (test code = 4936) 332 MG/DL Jonatan EasonCBC W/AUTO [id number] 00:00:00* Test Item Value Reference Range Interpretation Comme nts WBC (test code = 1001) 4.6 K/UL RBC (test code = 1002) 3.98 M/UL HEMOGLOBIN (test code = 1003) 12.7 G/DL HEMATOCRIT (test code = 1004) 37.8 % MCV (test code = 1005) 95.0 fL MCH (test code = 1006) 31.9 PG MCHC (test code = 1007) 33.6 G/DL RDW (test code = 1038) 15.5 % NEUTROPHILS (test code = 1008) 67.7 % LYMPHOCYTES (test code = 1010) 19.6 % MONOCYTES (test code = 1011) 8.3 % EOSINOPHILS (test code = 1012) 3.3 % BASOPHILS (test code = 1013) 0.9 % IMMATURE GRANULOCYTES (test code = 1036) 0.2 % NUCLEATED RBCS (test code = 1065) 0.0 /100WBC'S PLATELET COUNT (test code = 1015) 88 K/UL ABSOLUTE NEUTROPHILS (test c ode = 1066) 3.12 K/UL ABSOLUTE LYMPHOCYTES (test c ode = 1067) 0.90 K/UL ABSOLUTE MONOCYTES (test cod e = 1068) 0.38 K/UL ABSOLUTE EOSINOPHILS (test c ode = 1040) 0.15 K/UL ABSOLUTE BASOPHILS (test cod e = 1069) 0.04 K/UL ABS IMMATURE GRANULOCYTES (t est code = 1020) 0.01 K/UL ABS NUCLEATED RBCS (test cod e = 63255) 0.00 K/UL Jonatan EasonHEMOGLOBIN [id number] 00:00:00* Test Item Value Reference Range Interpretation Comme nts HEMOGLOBIN A1c (test code = 95992) 5.0 % Jonatan EasonCBC WITH [id number] 19:25:52* Test Item Value Reference Range Interpretation Comme nts WBC (test code = 6690-2) 6.25 See_Comment [Automated messa ge] The system which generated this result transmitted reference range: 4.30 - 11.10 10*3/?L. The reference range was not used to interpret this result as normal/abnormal. RBC (test code = 789-8) 4.27 See_Comment [Automated messa ge] The system which generated this result transmitted reference range: 3.93 - 5.25 10*6/?L. The reference range was not used to interpret this result as normal/abnormal. HGB (test code = 718-7) 13.1 g/dL 11.6-15.0 HCT (test code = 4544-3) 40.2 % 35.7-45.2 MCV (test code = 787-2) 94.1 fL 80.6-95.5 MCH (test code = 785-6) 30.7 pg 25.9-32.8 MCHC (test code = 786-4) 32.6 g/dL 31.6-35.1 RDW-SD (test code = 45910-1) 53.7 fL 39.0-49.9 H RDW-CV (test code = 788-0) 15.6 % 12.0-15.5 H PLT (test code = 777-3) 106 See_Comment L [Automated messa ge] The system which generated this result transmitted reference range: 166 - 358 10*3/?L. The reference range was not used to interpret this result as normal/abnormal. MPV (test code = 50762-6) 10.7 fL 9.5-12.9 IPF % (test code = 6319076578) 5.6 % 1.3-7.7 Platelet count measured by fluorescence method. NRBC/100 WBC (test code = 7892369314) 0.0 See_Comment [Automated mycujoo ssage] The system which generated this result transmitted reference range: 0.0 - 10.0 /100 WBCs. The reference range was not used to interpret this result as normal/abnormal. NRBC x10^3 (test code = 3131681451) See_Comment [Automated messa ge] The system which generated this result transmitted reference range: 10*3/?L. The reference range was not used to interpret this result as normal/abnormal. GRAN MAT (NEUT) % (test code = 770-8) 73.2 % IMM GRAN % (test code = 5295678634) 0.30 % LYMPH % (test code = 736-9) 15.5 % MONO % (test code = 5905-5) 8.6 % EOS % (test code = 713-8) 1.6 % BASO % (test code = 706-2) 0.8 % GRAN MAT x10^3(ANC) (test code = 3359595110) 4.57 10*3/uL 1.88-7.09 IMM GRAN x10^3 (test code = 5559636356) 0.00-0.06 LYMPH x10^3 (test code = 731-0) 0.97 10*3/uL 1.32-3.29 L MONO x10^3 (test code = 742-7) 0.54 10*3/uL 0.33-0.92 EOS x10^3 (test code = 711-2) 0.10 10*3/uL 0.03-0.39 BASO x10^3 (test code = 704-7) 0.05 10*3/uL 0.01-0.07 Lab Interpretation (test code = 07001-3) Abnormal [facility] [id number] 19:23:08* Test Item Value Reference Range Interpretation Comme nts TROPONIN I (test code = 8234757729) 0.003 ng/mL <=0.034 FRANKO (test code = FRANKO) Reference (Normal) Range (defined by the 99th percentile reference limit): <= 0.034 ng/mL Note: Cardiac troponin begins to rise 3-4 hours after the onset of ischemia. Repeat in 4-6 hours if the sample was drawn within 3-4 hours of the onset of the symptom and found normal. Diagnosis of myocardial injury is made with acute changes in cTn concentrations with at least one serial sample above the 99th percentile upper reference limit (URL), taken together with the patient's clinical presentation. Biotin has been reported to cause a negative bias, interpret results relative to patient's use of biotin. Lab Interpretation (test code = 16153-1) Normal [facility]. METABOLIC PANEL (07782)2022-11-21 19:12:06* Test Item Value Reference Range Interpretation Comme nts NA (test code = 1249880458) 139 mmol/L 135-145 K (test code = 9764147133) 4.2 mmol/L 3.5-5.0 CL (test code = 7287958123) 108 mmol/L 98-108 CO2 TOTAL (test code = 1021864506) 21 mmol/L 23-31 L AGAP (test code = 1550170625) 10 2-16 BUN (test code = 4229426827) 14 mg/dL 7-23 GLUCOSE (test code = 7541994621) 127 mg/dL 70-110 H CREATININE (test code = 5270303779) 0.54 mg/dL 0.50-1.04 TOTAL BILI (test code = 4903239192) 1.8 mg/dL 0.1-1.1 H CALCIUM (test code = 3562295878) 8.9 mg/dL 8.6-10.6 T PROTEIN (test code = 7805535813) 7.4 g/dL 6.3-8.2 ALBUMIN (test code = 1394445020) 4.2 g/dL 3.5-5.0 ALK PHOS (test code = 8597160393) 126 U/L 34-122 H ALTv (test code = 1742-6) 37 U/L 5-35 H AST(SGOT) (test code = 9934046444) 52 U/L 13-40 H eGFR (test code = 0298720270) 114.0 mL/min/1.73m2 FRANKO (test code = FRANKO) Association of Glomerular Filtration Rate (GFR) and Staging of Kidney Disease* + --+ --+ ------+| GFR (mL/min/1.73 m2) ?| With Kidney Damage ?| ?Without Kidney Damage+ --------+ --------+ +| ?>90 ?| ?Stage one ?| ? Normal ?+ ---+ ---+ -------+| ?60-89 ?| ?Stage two ?| ? Decreased GFR ? + --+ --+ ------+| ?30-59 ?| ?Stage three ?| ? Stage three ? + --+ --+ ------+| ?15-29 ?| ?Stage four ? | ? Stage four ?+ ---+ ---+ -------+| ?<15 (or dialysis) ? ?| ?Stage five ? | ? Stage five ?+ ---+ ---+ -------+ *Each stage assumes the associated GFR level has been in effect for at least three months. ?Stages 1 to 5, with or without kidney disease, indicate chronic kidney disease. Notes: Determination of stages one and two (with eGFR >59mL/min/1.73 m2) requires estimation of kidney damage for at least three months as defined by structural or functional abnormalities of the kidney, manifested by either:Pathological abnormalities or Markers of kidney damage (including abnormalities in the composition of the blood or urine or abnormalities in imaging tests). Lab Interpretation (test code = 67948-4) [facility] 19:12:05* Test Item Value Reference Range Interpretation Comme nts LIPASE (test code = 1717736601) 68 U/L 0-220 Lab Interpretation (test cod e = 87487-4) Normal [facility], [id number] 14:09:00 * Test Item Value Reference Range Interpretation Comme nts POCT U SP GRAV (test code = 3255) 1.015 mg/dl 1.005-1.025 POCT PH U (test code = 3254) 5.5 mg/dl 5-8 POCT U LEUK EST (test code = 3263) negative Negative - Negative POCT U NIT (test code = 3262) negative Negative - Negative POCT U PROT (test code = 3259) negative Negative - Negative POCT U GLU (test code = 3256) negative Negative - Negative POCT U KETONE (test code = 3258) negative Negative - Negative POCT U UROBILI (test code = 3260) 0.2 mg/dl 0.2-1 POCT U BILI (test code = 3261) negative Negative - Negative POCT U BLD (test code = 3257) trace-intact Negative - Negative POCT U COLOR (test code = 3266) yellow POCT U APPEAR (test code = 3267) clear [facility] URINALYSIS, [id number] 14:09:00 * Test Item Value Reference Range Interpretation Comme nts POCT U SP GRAV (test code = 3255) 1.015 mg/dl 1.005-1.025 POCT PH U (test code = 3254) 5.5 mg/dl 5-8 POCT U LEUK EST (test code = 3263) negative Negative - Negative POCT U NIT (test code = 3262) negative Negative - Negative POCT U PROT (test code = 3259) negative Negative - Negative POCT U GLU (test code = 3256) negative Negative - Negative POCT U KETONE (test code = 3258) negative Negative - Negative POCT U UROBILI (test code = 3260) 0.2 mg/dl 0.2-1 POCT U BILI (test code = 3261) negative Negative - Negative POCT U BLD (test code = 3257) trace-intact Negative - Negative POCT U COLOR (test code = 3266) yellow POCT U APPEAR (test code = 3267) clear [facility] THIRD [id number] 07:08:03* Test Item Value Reference Range Interpretation Comme nts TSH, THIRD GENERATION (test code = 2821) 1.260 UIU/ML 0.400-4.100 [facility] has impo rtant pathology staff changes effective 07/12/2022. New pathology staff will provide uninterrupted, excellent patient care and clinical consultation. See URL: [email or web address]. UNLESS OTHERWISE INDICATED, ALL TESTING PERFORMED AT [facility] [address] [place] [address] MOTOR COACH OPERATOR: SALENA BOTELLO M.D. CLIA NUMBER [id number] [facility]. [id number] [facility], THIRD [id number] 00:00:00* Test Item Value Reference Range Interpretation Comme nts TSH, THIRD GENERATION (test code = 2821) 1.260 UIU/ML [facility]AD[facility] [id number] 00:00:00* Test Item Value Reference Range Interpretation Comme nts TSH, THIRD GENERATION (test code = 2821) 1.260 UIU/ML [facility]AD[facility] [id number] 00:00:00* Test Item Value Reference Range Interpretation Comme nts TSH, THIRD GENERATION (test code = 2821) 1.260 UIU/ML Jonatan Granado, THIRD [id number] 06:48:09* Test Item Value Reference Range Interpretation Comme nts TSH, THIRD GENERATION (test code = 2821) 14.800 UIU/ML 0.400-4.100 H UNLESS OTHERWISE INDICATED, ALL TESTING PERFORMED [facility] [address] [place] [address] MOTOR COACH OPERATOR: CASSIE PHAM M.D. [place] NUMBER [id number] [facility]. [id number] LIPID [id number] 06:15:59* Test Item Value Reference Range Interpretation Comme nts CHOLESTEROL (test code = 2210) 201 MG/DL <200 H TRIGLYCERIDES (test code = 2232) 142 MG/DL <150 HDL CHOLESTEROL (test code = 2220) 65 MG/DL >39 CALC LDL CHOL (test code = 2237) 111 MG/DL <100 H NOTE: CALCULATED LDL IS BASED ON OJ-HERNANDES METHOD WHICHINCLUDES ADJUSTABLE TRIGLYCERIDE:VLDL CHOLESTEROL RATIO.THIS FACTOR VARIES BY MEASURED TRIGLYCERIDE AND NON-HDLCHOLESTEROL CONCENTRATIONS WITH INCREASED CALCULATED LDL SEENIN HIGHER TRIGLYCERIDE OR LOWER NON-HDL SPECIMENS. FOR MOREINFORMATION, SEE CLIENT ANNOUNCEMENT AT [email or web address] RISK RATIO LDL/HDL (test code = 2238) 1.71 RATIO <3.22 COMPREHENSIVE METABOLIC [id number] 06:15:59* Test Item Value Reference Range Interpretation Comme nts GLUCOSE (test code = 2217) 102 MG/DL 70-99 H BUN (test code = 2208) 11 MG/DL 8-23 CREATININE (test code = 2214) 0.76 MG/DL 0.60-1.30 eGFR (2020 CKD-EPI) (test code = 76726) 88 ML/MIN/1.73 >60 CALC BUN/CREAT (test code = 2235) 14 RATIO 6-28 SODIUM (test code = 2231) 147 MEQ/L 133-146 H POTASSIUM (test code = 2228) 4.6 MEQ/L 3.5-5.4 CHLORIDE (test code = 2215) 109 MEQ/L 95-107 H CARBON DIOXIDE (test code = 2206) 24 MEQ/L 19-31 CALCIUM (test code = 2209) 9.0 MG/DL 8.5-10.5 PROTEIN, TOTAL (test code = 2228) 6.6 G/DL 6.1-8.3 ALBUMIN (test code = 2200) 4.2 G/DL 3.5-5.2 CALC GLOBULIN (test code = 0) 2.4 G/DL 1.9-3.7 CALC A/G RATIO (test code = 2233) 1.8 RATIO 1.0-2.6 BILIRUBIN, TOTAL (test code = 2206) 0.6 MG/DL See_Comment [Automated me ssage] The system which generated this result transmitted reference range: <=1.2. The reference range was not used to interpret this result as normal/abnormal. ALKALINE PHOSPHATASE (test code = 2203) 120 U/L 40-140 AST (test code = 2217) 52 U/L 9-40 H ALT (test code = 2218) 34 U/L 5-40 HEMOGLOBIN [id number] 05:10:41* Test Item Value Reference Range Interpretation Comme nts HEMOGLOBIN A1c (test code = 26386) 5.3 % 4.2-5.6 CBC W/AUTO DIFF WITH [id number] 04:27:23* Test Item Value Reference Range Interpretation Comme nts WBC (test code = 1001) 3.7 K/UL 3.5-11.0 RBC (test code = 1002) 3.97 M/UL 3.80-5.40 HEMOGLOBIN (test code = 1003) 12.8 G/DL 11.5-15.5 HEMATOCRIT (test code = 1004) 38.2 % 34.0-45.0 MCV (test code = 1005) 96.2 fL 80.0-99.0 MCH (test code = 1006) 32.2 PG 25.0-33.0 MCHC (test code = 1007) 33.5 G/DL 31.0-36.0 RDW (test code = 1038) 13.4 % 11.5-15.0 NEUTROPHILS (test code = 1008) 60.4 % LYMPHOCYTES (test code = 1010) 23.6 % MONOCYTES (test code = 1011) 8.7 % EOSINOPHILS (test code = 1012) 5.7 % BASOPHILS (test code = 1013) 1.1 % IMMATURE GRANULOCYTES (test code = 1036) 0.5 % NUCLEATED RBCS (test code = 1065) 0.0 /100 WBC'S See_Comment [Automated [employer] ge] The system which generated this result transmitted reference range: 0.0. The reference range was not used to interpret this result as normal/abnormal. PLATELET COUNT (test code = 1015) 93 K/UL 130-400 L ABSOLUTE NEUTROPHILS (test code = 1066) 2.22 K/UL 1.50-7.50 ABSOLUTE LYMPHOCYTES (test code = 1067) 0.87 K/UL 1.00-4.00 L ABSOLUTE MONOCYTES (test code = 1068) 0.32 K/UL 0.20-1.00 ABSOLUTE EOSINOPHILS (test code = 1040) 0.21 K/UL 0.00-0.50 ABSOLUTE BASOPHILS (test code = 1069) 0.04 K/UL 0.00-0.20 ABS IMMATURE GRANULOCYTES (test code = 1020) 0.02 K/UL 0.00-0.10 ABS NUCLEATED RBCS (test code = 57357) 0.00 K/UL 0.00-0.11 LIPID [id number] 00:00:00* Test Item Value Reference Range Interpretation Comme nts CHOLESTEROL (test code = 2210) 201 MG/DL TRIGLYCERIDES (test code = 2232) 142 MG/DL HDL CHOLESTEROL (test code = 2220) 65 MG/DL CALC LDL CHOL (test code = 2237) 111 MG/DL RISK RATIO LDL/HDL (test cod e = 2238) 1.71 RATIO Jonatan F AustinCOMPREHENSIVE METABOLIC [id number] 00:00:00* Test Item Value Reference Range Interpretation Comme nts GLUCOSE (test code = 2217) 102 MG/DL BUN (test code = 2208) 11 MG/DL CREATININE (test code = 2214) 0.76 MG/DL eGFR (2020 CKD-EPI) (test co de = 21958) 88 ML/MIN/1.73 CALC BUN/CREAT (test code = 2235) 14 RATIO SODIUM (test code = 2231) 147 MEQ/L POTASSIUM (test code = 2228) 4.6 MEQ/L CHLORIDE (test code = 2215) 109 MEQ/L CARBON DIOXIDE (test code = 2206) 24 MEQ/L CALCIUM (test code = 2209) 9.0 MG/DL PROTEIN, TOTAL (test code = 2229) 6.6 G/DL ALBUMIN (test code = 2201) 4.2 G/DL CALC GLOBULIN (test code = 2240) 2.4 G/DL CALC A/G RATIO (test code = 2234) 1.8 RATIO BILIRUBIN, TOTAL (test code = 2207) 0.6 MG/DL ALKALINE PHOSPHATASE (test code = 2204) 120 U/L AST (test code = 2218) 52 U/L ALT (test code = 2219) 34 U/L Jonatan McnamaraH, THIRD [id number] 00:00:00* Test Item Value Reference Range Interpretation Comme nts TSH, THIRD GENERATION (test code = 2821) 14.800 UIU/ML Jonatan EasonCBC W/AUTO [id number] 00:00:00* Test Item Value Reference Range Interpretation Comme nts WBC (test code = 1001) 3.7 K/UL RBC (test code = 1002) 3.97 M/UL HEMOGLOBIN (test code = 1003) 12.8 G/DL HEMATOCRIT (test code = 1004) 38.2 % MCV (test code = 1005) 96.2 fL MCH (test code = 1006) 32.2 PG MCHC (test code = 1007) 33.5 G/DL RDW (test code = 1038) 13.4 % NEUTROPHILS (test code = 1008) 60.4 % LYMPHOCYTES (test code = 1010) 23.6 % MONOCYTES (test code = 1011) 8.7 % EOSINOPHILS (test code = 1012) 5.7 % BASOPHILS (test code = 1013) 1.1 % IMMATURE GRANULOCYTES (test code = 1036) 0.5 % NUCLEATED RBCS (test code = 1065) 0.0 /100WBC'S PLATELET COUNT (test code = 1015) 93 K/UL ABSOLUTE NEUTROPHILS (test c ode = 1066) 2.22 K/UL ABSOLUTE LYMPHOCYTES (test c ode = 1067) 0.87 K/UL ABSOLUTE MONOCYTES (test cod e = 1068) 0.32 K/UL ABSOLUTE EOSINOPHILS (test c ode = 1040) 0.21 K/UL ABSOLUTE BASOPHILS (test cod e = 1069) 0.04 K/UL ABS IMMATURE GRANULOCYTES (t est code = 1020) 0.02 K/UL ABS NUCLEATED RBCS (test cod e = 07589) 0.00 K/UL Jonatan EasonHEMOGLOBIN [id number] 00:00:00* Test Item Value Reference Range Interpretation Comme alber HEMOGLOBIN A1c (test code = 76101) 5.3 % Jonatan EasonLIPID [id number] 00:00:00* Test Item Value Reference Range Interpretation Comme nts CHOLESTEROL (test code = 2210) 201 MG/DL TRIGLYCERIDES (test code = 2232) 142 MG/DL HDL CHOLESTEROL (test code = 2220) 65 MG/DL CALC LDL CHOL (test code = 2237) 111 MG/DL RISK RATIO LDL/HDL (test cod e = 2238) 1.71 RATIO Jonatan EasonCOMPREHENSIVE METABOLIC [id number] 00:00:00* Test Item Value Reference Range Interpretation Comme nts GLUCOSE (test code = 2217) 102 MG/DL BUN (test code = 2208) 11 MG/DL CREATININE (test code = 2214) 0.76 MG/DL eGFR (2020 CKD-EPI) (test co de = 15742) 88 ML/MIN/1.73 CALC BUN/CREAT (test code = 2235) 14 RATIO SODIUM (test code = 2231) 147 MEQ/L POTASSIUM (test code = 2228) 4.6 MEQ/L CHLORIDE (test code = 2215) 109 MEQ/L CARBON DIOXIDE (test code = 2206) 24 MEQ/L CALCIUM (test code = 2209) 9.0 MG/DL PROTEIN, TOTAL (test code = 2229) 6.6 G/DL ALBUMIN (test code = 2201) 4.2 G/DL CALC GLOBULIN (test code = 2240) 2.4 G/DL CALC A/G RATIO (test code = 2234) 1.8 RATIO BILIRUBIN, TOTAL (test code = 2207) 0.6 MG/DL ALKALINE PHOSPHATASE (test code = 2204) 120 U/L AST (test code = 2218) 52 U/L ALT (test code = 2219) 34 U/L Jonatan EasonTSH, THIRD [id number] 00:00:00* Test Item Value Reference Range Interpretation Comme nts TSH, THIRD GENERATION (test code = 2821) 14.800 UIU/ML Jonatan EasonCBC W/AUTO [id number] 00:00:00* Test Item Value Reference Range Interpretation Comme nts WBC (test code = 1001) 3.7 K/UL RBC (test code = 1002) 3.97 M/UL HEMOGLOBIN (test code = 1003) 12.8 G/DL HEMATOCRIT (test code = 1004) 38.2 % MCV (test code = 1005) 96.2 fL MCH (test code = 1006) 32.2 PG MCHC (test code = 1007) 33.5 G/DL RDW (test code = 1038) 13.4 % NEUTROPHILS (test code = 1008) 60.4 % LYMPHOCYTES (test code = 1010) 23.6 % MONOCYTES (test code = 1011) 8.7 % EOSINOPHILS (test code = 1012) 5.7 % BASOPHILS (test code = 1013) 1.1 % IMMATURE GRANULOCYTES (test code = 1036) 0.5 % NUCLEATED RBCS (test code = 1065) 0.0 /100WBC'S PLATELET COUNT (test code = 1015) 93 K/UL ABSOLUTE NEUTROPHILS (test c ode = 1066) 2.22 K/UL ABSOLUTE LYMPHOCYTES (test c ode = 1067) 0.87 K/UL ABSOLUTE MONOCYTES (test cod e = 1068) 0.32 K/UL ABSOLUTE EOSINOPHILS (test c ode = 1040) 0.21 K/UL ABSOLUTE BASOPHILS (test cod e = 1069) 0.04 K/UL ABS IMMATURE GRANULOCYTES (t est code = 1020) 0.02 K/UL ABS NUCLEATED RBCS (test cod e = 44292) 0.00 K/UL Jonatan EasonHEMOGLOBIN [id number] 00:00:00* Test Item Value Reference Range Interpretation Comme nts HEMOGLOBIN A1c (test code = 92573) 5.3 % Jonatan EasonLIPID [id number] 00:00:00* Test Item Value Reference Range Interpretation Comme nts CHOLESTEROL (test code = 2210) 201 MG/DL TRIGLYCERIDES (test code = 2232) 142 MG/DL HDL CHOLESTEROL (test code = 2220) 65 MG/DL CALC LDL CHOL (test code = 2237) 111 MG/DL RISK RATIO LDL/HDL (test cod e = 2238) 1.71 RATIO Jonatan EasonCOMPREHENSIVE METABOLIC [id number] 00:00:00* Test Item Value Reference Range Interpretation Comme nts GLUCOSE (test code = 2217) 102 MG/DL BUN (test code = 2208) 11 MG/DL CREATININE (test code = 2214) 0.76 MG/DL eGFR (2020 CKD-EPI) (test co de = 87190) 88 ML/MIN/1.73 CALC BUN/CREAT (test code = 2235) 14 RATIO SODIUM (test code = 2231) 147 MEQ/L POTASSIUM (test code = 2228) 4.6 MEQ/L CHLORIDE (test code = 2215) 109 MEQ/L CARBON DIOXIDE (test code = 2206) 24 MEQ/L CALCIUM (test code = 2209) 9.0 MG/DL PROTEIN, TOTAL (test code = 222) 6.6 G/DL ALBUMIN (test code = 2201) 4.2 G/DL CALC GLOBULIN (test code = 2240) 2.4 G/DL CALC A/G RATIO (test code = 2234) 1.8 RATIO BILIRUBIN, TOTAL (test code = 2207) 0.6 MG/DL ALKALINE PHOSPHATASE (test code = 2204) 120 U/L AST (test code = 2218) 52 U/L ALT (test code = 2219) 34 U/L Jonatan EasonTSH, THIRD [id number] 00:00:00* Test Item Value Reference Range Interpretation Comme nts TSH, THIRD GENERATION (test code = 2821) 14.800 UIU/ML Jonatan EasonCBC W/AUTO [id number] 00:00:00* Test Item Value Reference Range Interpretation Comme nts WBC (test code = 1001) 3.7 K/UL RBC (test code = 1002) 3.97 M/UL HEMOGLOBIN (test code = 1003) 12.8 G/DL HEMATOCRIT (test code = 1004) 38.2 % MCV (test code = 1005) 96.2 fL MCH (test code = 1006) 32.2 PG MCHC (test code = 1007) 33.5 G/DL RDW (test code = 1038) 13.4 % NEUTROPHILS (test code = 1008) 60.4 % LYMPHOCYTES (test code = 1010) 23.6 % MONOCYTES (test code = 1011) 8.7 % EOSINOPHILS (test code = 1012) 5.7 % BASOPHILS (test code = 1013) 1.1 % IMMATURE GRANULOCYTES (test code = 1036) 0.5 % NUCLEATED RBCS (test code = 1065) 0.0 /100WBC'S PLATELET COUNT (test code = 1015) 93 K/UL ABSOLUTE NEUTROPHILS (test c ode = 1066) 2.22 K/UL ABSOLUTE LYMPHOCYTES (test c ode = 1067) 0.87 K/UL ABSOLUTE MONOCYTES (test cod e = 1068) 0.32 K/UL ABSOLUTE EOSINOPHILS (test c ode = 1040) 0.21 K/UL ABSOLUTE BASOPHILS (test cod e = 1069) 0.04 K/UL ABS IMMATURE GRANULOCYTES (t est code = 1020) 0.02 K/UL ABS NUCLEATED RBCS (test cod e = 06193) 0.00 K/UL Jonatan EasonHEMOGLOBIN [id number] 00:00:00* Test Item Value Reference Range Interpretation Comme nts HEMOGLOBIN A1c (test code = 51199) 5.3 % Jonatan Barber AustinBASIC METABOLIC PANEL (NA, K, CL, CO2, GLUCOSE, BUN, CREATININE, CA)2022-05-18 16:06:20* Test Item Value Reference Range Interpretation Comme nts NA (test code = 7860802077) 140 mmol/L 135-145 K (test code = 0452466104) 4.1 mmol/L 3.5-5.0 CL (test code = 9679680542) 105 mmol/L 98-108 CO2 TOTAL (test code = 0160802718) 28 mmol/L 23-31 AGAP (test code = 2611039433) 2-16 BUN (test code = 7209938550) 17 mg/dL 7-23 GLUCOSE (test code = 4157090994) 101 mg/dL 70-110 CREATININE (test code = 6031878983) 0.66 mg/dL 0.50-1.04 CALCIUM (test code = 3535730211) 8.6 mg/dL 8.6-10.6 eGFR (test code = 5455830882) mL/min/1.73m2 FRANKO (test code = FRANKO) Association of Glomerular Filtration Rate (GFR) and Staging of Kidney Disease* + + +- +| GFR (mL/min/1.73 m2) ?| With Kidney Damage ?| ?Without Kidney Damage+ ------+ ----+ ------+| ?>90 ?| ?Stage one ?| ? Normal ?+ -+ + -+| ?60-89 ?| ?Stage two ?| ? Decreased GFR ? + + +- +| ?30-59 ?| ?Stage three ?| ? Stage three ? + + +- +| ?15-29 ?| ?Stage four ? | ? Stage four ?+ -+ + -+| ?<15 (or dialysis) ? ?| ?Stage five ? | ? Stage five ?+ -+ + -+ *Each stage assumes the associated GFR level has been in effect for at least three months. ?Stages 1 to 5, with or without kidney disease, indicate chronic kidney disease. Notes: Determination of stages one and two (with eGFR >59mL/min/1.73 m2) requires estimation of kidney damage for at least three months as defined by structural or functional abnormalities of the kidney, manifested by either:Pathological abnormalities or Markers of kidney damage (including abnormalities in the composition of the blood or urine or abnormalities in imaging tests). [facility] METABOLIC PANEL (NA, K, CL, CO2, GLUCOSE, BUN, CREATININE, CA)2022-05-18 16:06:20* Test Item Value Reference Range Interpretation Comme nts NA (test code = 9736572462) 140 mmol/L 135-145 K (test code = 0771342590) 4.1 mmol/L 3.5-5.0 CL (test code = 2709936011) 105 mmol/L 98-108 CO2 TOTAL (test code = 2671167364) 28 mmol/L 23-31 AGAP (test code = 2660075390) 2-16 BUN (test code = 1259107454) 17 mg/dL 7-23 GLUCOSE (test code = 6251434500) 101 mg/dL 70-110 CREATININE (test code = 3042887506) 0.66 mg/dL 0.50-1.04 CALCIUM (test code = 2566210857) 8.6 mg/dL 8.6-10.6 eGFR (test code = 9101955661) mL/min/1.73m2 FRANKO (test code = FRANKO) Association of Glomerular Filtration Rate (GFR) and Staging of Kidney Disease* + + +- +| GFR (mL/min/1.73 m2) ?| With Kidney Damage ?| ?Without Kidney Damage+ ------+ ----+ ------+| ?>90 ?| ?Stage one ?| ? Normal ?+ -+ + -+| ?60-89 ?| ?Stage two ?| ? Decreased GFR ? + + +- +| ?30-59 ?| ?Stage three ?| ? Stage three ? + + +- +| ?15-29 ?| ?Stage four ? | ? Stage four ?+ -+ + -+| ?<15 (or dialysis) ? ?| ?Stage five ? | ? Stage five ?+ -+ + -+ *Each stage assumes the associated GFR level has been in effect for at least three months. ?Stages 1 to 5, with or without kidney disease, indicate chronic kidney disease. Notes: Determination of stages one and two (with eGFR >59mL/min/1.73 m2) requires estimation of kidney damage for at least three months as defined by structural or functional abnormalities of the kidney, manifested by either:Pathological abnormalities or Markers of kidney damage (including abnormalities in the composition of the blood or urine or abnormalities in imaging tests). [facility] URINALYSIS W/O SPECIFIC [id number] 15:47:00* Test Item Value Reference Range Interpretation Comme nts POCT PH U (test code = 3254) 5 mg/dl 5-8 POCT U LEUK EST (test code = 3263) negative Negative - Negative POCT U NIT (test code = 3262) negative Negative - Negative POCT U PROT (test code = 3259) negaitve Negative - Negative POCT U GLU (test code = 3256) negative Negative - Negative POCT U KETONE (test code = 3258) negative Negative - Negative POCT U BLD (test code = 3257) negative Negative - Negative FRANKO (test code = FRANKO) Per order PVR by bladder scan = ?0 ml. Results reported to provider. [facility],FECAL,IMMUNOASSAY [id number] 11:49:52* Test Item Value Reference Range Interpretation Comme nts OCCULT BLD, FECAL (test code = 92040) POSITIVE NEGATIVE A UNLESS OTHER LLANOS INDICATED, ALL TESTING PERFORMED [facility] Agent Ace, [facility]. [address] [place] [address] MOTOR COACH OPERATOR: CASSIE PHMA M.D. CLIA NUMBER [id number] [facility]. [id number] OCCULT BLD,FECAL,IMMUNOASSAY [id number] 00:00:00* Test Item Value Reference Range Interpretation Comme nts OCCULT BLD, FECAL (test code = 29269) POSITIVE OCCULT BLD,FECAL,IMMUNOASSAY [id number] 00:00:00* Test Item Value Reference Range Interpretation Comme nts OCCULT BLD, FECAL (test code = 79196) POSITIVE Jonatan F AustinOCCULT BLD,FECAL,IMMUNOASSAY [id number] 00:00:00* Test Item Value Reference Range Interpretation Comme nts OCCULT BLD, FECAL (test code = 35006) POSITIVE Jonatan F AustinOCCULT BLD,FECAL,IMMUNOASSAY [id number] 00:00:00* Test Item Value Reference Range Interpretation Comme nts OCCULT BLD, FECAL (test code = 63156) POSITIVE OCCULT BLD,FECAL,IMMUNOASSAY [id number] 00:00:00* Test Item Value Reference Range Interpretation Comme nts OCCULT BLD, FECAL (test code = 63896) POSITIVE OCCULT BLD,FECAL,IMMUNOASSAY [id number] 00:00:00* Test Item Value Reference Range Interpretation Comme nts OCCULT BLD, FECAL (test code = 89029) POSITIVE Jonatan F AustinCT/NG, NAAT, [id number] 16:24:58* Test Item Value Reference Range Interpretation Comme nts GONORRHEA, NAAT (test code = 83807) NEGATIVE NEGATIVE IMPORTANT NO ULYSSES: SEE ANNOUNCEMENT AT [email or web address] Note: Assay methodology is nucleic acid amplification by production pattern maker mediated amplification (TMA) utilizing the Aptima Combo 2 Assay. CHLAMYDIA, NAAT (test code = 68608) NEGATIVE NEGATIVE IMPORTANT NO ULYSSES: SEE ANNOUNCEMENT AT [email or web address] Note: Assay methodology is nucleic acid amplification by production pattern maker mediated amplification (TMA) utilizing the Aptima Combo 2 Assay. UNLESS OTHERWISE INDICATED, ALL TESTING PERFORMED [facility] PATHOLOGY Agent Ace, [facility]. [address] [place] [address] MOTOR COACH OPERATOR: CASSIE PHAM M.D. CLIA NUMBER [id number] [facility] [place]. [id number] TSH, THIRD [id number] 06:52:37* Test Item Value Reference Range Interpretation Comme nts TSH, THIRD GENERATION (test code = 2821) 1.580 UIU/ML 0.400-4.100 HIV 1/2 4TH GEN, RFLX [id number] 05:54:17* Test Item Value Reference Range Interpretation Comme nts HIV 1/2 4TH GEN, RFLX CONF ( test code = 3514) NON-REACTIVE NON-REACTIVE HEPATITIS PANEL, [id number] 05:54:17* Test Item Value Reference Range Interpretation Comme nts HEPATITIS A IgM (test code = 81978) NON-REACTIVE NON-REACTIVE HEPATITIS B CORE IgM (test code = 4644) NON-REACTIVE NON-REACTIVE HEPATITIS B SURF AG (test code = 2739) NON-REACTIVE NON-REACTIVE HEPATITIS C ANTIBODY (test code = 4675) NON-REACTIVE NON-REACTIVE INTERPRETATION HEPATITIS A: (test code = 2552) (NOTE) Hepatitis A serology shows no evidence of acute hepatitis A. INTERPRETATION HEPATITIS B: (test code = 28301) (NOTE) Hepatitis B serology shows no evidence of acute hepatitis B andno indication of exposure to hepatitis B virus in the previous [place] eight months. INTERPRETATION HEPATITIS C: (test code = 10589) (NOTE) Hepatitis C serology shows no evidence of exposure to hepatitisC virus at this time. It can take up to 12 months after exposure tothe hepatitis C virus for antibodies to become detectable in the blood in certain patients. COMPREHENSIVE METABOLIC [id number] 05:22:56* Test Item Value Reference Range Interpretation Comme nts GLUCOSE (test code = 2217) 104 MG/DL 70-99 H BUN (test code = 2208) 13 MG/DL 8-23 CREATININE (test code = 2214) 0.68 MG/DL 0.60-1.30 eGFR (2020 CKD-EPI) (test code = 49749) 98 ML/MIN/1.73 >60 CALC BUN/CREAT (test code = 2234) 19 RATIO 6-28 SODIUM (test code = 2230) 141 MEQ/L 133-146 POTASSIUM (test code = 222) 3.5 MEQ/L 3.5-5.4 CHLORIDE (test code = 2214) 103 MEQ/L 95-107 CARBON DIOXIDE (test code = 2205) 25 MEQ/L 19-31 CALCIUM (test code = 2208) 9.5 MG/DL 8.5-10.5 PROTEIN, TOTAL (test code = 2228) 6.9 G/DL 6.1-8.3 ALBUMIN (test code = 2200) 4.2 G/DL 3.5-5.2 CALC GLOBULIN (test code = 2239) 2.7 G/DL 1.9-3.7 CALC A/G RATIO (test code = 2233) 1.6 RATIO 1.0-2.6 BILIRUBIN, TOTAL (test code = 2206) 0.7 MG/DL See_Comment [Automated me ssage] The system which generated this result transmitted reference range: <=1.2. The reference range was not used to interpret this result as normal/abnormal. ALKALINE PHOSPHATASE (test code = 2203) 118 U/L 40-140 AST (test code = 2217) 45 U/L 9-40 H ALT (test code = 2218) 38 U/L 5-40 LIPID [id number] 05:22:56* Test Item Value Reference Range Interpretation Comme nts CHOLESTEROL (test code = 2209) 186 MG/DL <200 TRIGLYCERIDES (test code = 2231) 122 MG/DL <150 HDL CHOLESTEROL (test code = 2219) 80 MG/DL >39 CALC LDL CHOL (test code = 2236) 84 MG/DL <100 NOTE: CALCULATED LDL IS BASED ON OJ-HERNANDES METHOD WHICHINCLUDES ADJUSTABLE TRIGLYCERIDE:VLDL CHOLESTEROL RATIO.THIS FACTOR VARIES BY MEASURED TRIGLYCERIDE AND NON-HDLCHOLESTEROL CONCENTRATIONS WITH INCREASED CALCULATED LDL SEENIN HIGHER TRIGLYCERIDE OR LOWER NON-HDL SPECIMENS. FOR MOREINFORMATION, SEE CLIENT ANNOUNCEMENT AT [email or web address] RISK RATIO LDL/HDL (test code = 2237) 1.05 RATIO <3.22 CBC W/AUTO DIFF WITH [id number] 04:33:42* Test Item Value Reference Range Interpretation Comme nts WBC (test code = 1001) 5.1 K/UL 3.5-11.0 RBC (test code = 1002) 4.51 M/UL 3.80-5.40 HEMOGLOBIN (test code = 1003) 14.1 G/DL 11.5-15.5 HEMATOCRIT (test code = 1004) 42.3 % 34.0-45.0 MCV (test code = 1005) 93.8 fL 80.0-99.0 MCH (test code = 1006) 31.3 PG 25.0-33.0 MCHC (test code = 1007) 33.3 G/DL 31.0-36.0 RDW (test code = 1038) 15.4 % 11.5-15.0 H NEUTROPHILS (test code = 1008) 68.1 % LYMPHOCYTES (test code = 1010) 20.2 % MONOCYTES (test code = 1011) 6.9 % EOSINOPHILS (test code = 1012) 3.8 % BASOPHILS (test code = 1013) 0.8 % IMMATURE GRANULOCYTES (test code = 1036) 0.2 % NUCLEATED RBCS (test code = 1065) 0.0 /100 WBC'S See_Comment [Automated messa ge] The system which generated this result transmitted reference range: 0.0. The reference range was not used to interpret this result as normal/abnormal. PLATELET COUNT (test code = 1015) 114 K/UL 130-400 L ABSOLUTE NEUTROPHILS (test code = 1066) 3.45 K/UL 1.50-7.50 ABSOLUTE LYMPHOCYTES (test code = 1067) 1.02 K/UL 1.00-4.00 ABSOLUTE MONOCYTES (test code = 1068) 0.35 K/UL 0.20-1.00 ABSOLUTE EOSINOPHILS (test code = 1040) 0.19 K/UL 0.00-0.50 ABSOLUTE BASOPHILS (test code = 1069) 0.04 K/UL 0.00-0.20 ABS IMMATURE GRANULOCYTES (test code = 1020) 0.01 K/UL 0.00-0.10 ABS NUCLEATED RBCS (test code = 26710) 0.00 K/UL 0.00-0.11 LIPID [id number] 00:00:00* Test Item Value Reference Range Interpretation Comme nts CHOLESTEROL (test code = 2210) 186 MG/DL TRIGLYCERIDES (test code = 2232) 122 MG/DL HDL CHOLESTEROL (test code = 2220) 80 MG/DL CALC LDL CHOL (test code = 2237) 84 MG/DL RISK RATIO LDL/HDL (test cod e = 2238) 1.05 RATIO Jonatan EasonCOMPREHENSIVE METABOLIC [id number] 00:00:00* Test Item Value Reference Range Interpretation Comme nts GLUCOSE (test code = 2217) 104 MG/DL BUN (test code = 2208) 13 MG/DL CREATININE (test code = 2214) 0.68 MG/DL eGFR (2020 CKD-EPI) (test co de = 94179) 98 ML/MIN/1.73 CALC BUN/CREAT (test code = 2235) 19 RATIO SODIUM (test code = 2231) 141 MEQ/L POTASSIUM (test code = 2228) 3.5 MEQ/L CHLORIDE (test code = 2215) 103 MEQ/L CARBON DIOXIDE (test code = 2206) 25 MEQ/L CALCIUM (test code = 2209) 9.5 MG/DL PROTEIN, TOTAL (test code = 2229) 6.9 G/DL ALBUMIN (test code = 2201) 4.2 G/DL CALC GLOBULIN (test code = 2240) 2.7 G/DL CALC A/G RATIO (test code = 2234) 1.6 RATIO BILIRUBIN, TOTAL (test code = 2207) 0.7 MG/DL ALKALINE PHOSPHATASE (test code = 2204) 118 U/L AST (test code = 2218) 45 U/L ALT (test code = 2219) 38 U/L TSH, THIRD [id number] 00:00:00* Test Item Value Reference Range Interpretation Comme nts TSH, THIRD GENERATION (test code = 2821) 1.580 UIU/ML Jonatan EasonHIV 1/2 4TH GEN, RFLX [id number] 00:00:00* Test Item Value Reference Range Interpretation Comme nts HIV 1/2 4TH GEN, RFLX CONF ( test code = 3514) NON-REACTIVE Jonatan EasonCBC W/AUTO [id number] 00:00:00* Test Item Value Reference Range Interpretation Comme nts WBC (test code = 1001) 5.1 K/UL RBC (test code = 1002) 4.51 M/UL HEMOGLOBIN (test code = 1003) 14.1 G/DL HEMATOCRIT (test code = 1004) 42.3 % MCV (test code = 1005) 93.8 fL MCH (test code = 1006) 31.3 PG MCHC (test code = 1007) 33.3 G/DL RDW (test code = 1038) 15.4 % NEUTROPHILS (test code = 1008) 68.1 % LYMPHOCYTES (test code = 1010) 20.2 % MONOCYTES (test code = 1011) 6.9 % EOSINOPHILS (test code = 1012) 3.8 % BASOPHILS (test code = 1013) 0.8 % IMMATURE GRANULOCYTES (test code = 1036) 0.2 % NUCLEATED RBCS (test code = 1065) 0.0 /100WBC'S PLATELET COUNT (test code = 1015) 114 K/UL ABSOLUTE NEUTROPHILS (test c ode = 1066) 3.45 K/UL ABSOLUTE LYMPHOCYTES (test c ode = 1067) 1.02 K/UL ABSOLUTE MONOCYTES (test cod e = 1068) 0.35 K/UL ABSOLUTE EOSINOPHILS (test c ode = 1040) 0.19 K/UL ABSOLUTE BASOPHILS (test cod e = 1069) 0.04 K/UL ABS IMMATURE GRANULOCYTES (t est code = 1020) 0.01 K/UL ABS NUCLEATED RBCS (test cod e = 56993) 0.00 K/UL ACUTE HEPATITIS [id number] 00:00:00* Test Item Value Reference Range Interpretation Comme nts HEPATITIS A IgM (test code = 84467) NON-REACTIVE HEPATITIS B CORE IgM (test c ode = 4644) NON-REACTIVE HEPATITIS B SURF AG (test co de = 2739) NON-REACTIVE HEPATITIS C ANTIBODY (test c ode = 4675) NON-REACTIVE INTERPRETATION HEPATITIS A: (test code = 2552) (NOTE) INTERPRETATION HEPATITIS B: (test code = 04737) (NOTE) INTERPRETATION HEPATITIS C: (test code = 90587) (NOTE) Jonatan EasonCT/NG, TMA, [id number] 00:00:00* Test Item Value Reference Range Interpretation Comme nts GONORRHEA, NAAT (test code = 92668) NEGATIVE CHLAMYDIA, NAAT (test code = 36811) NEGATIVE Jonatan EasonLIPID [id number] 00:00:00* Test Item Value Reference Range Interpretation Comme nts CHOLESTEROL (test code = 2210) 186 MG/DL TRIGLYCERIDES (test code = 2232) 122 MG/DL HDL CHOLESTEROL (test code = 2220) 80 MG/DL CALC LDL CHOL (test code = 2237) 84 MG/DL RISK RATIO LDL/HDL (test cod e = 2238) 1.05 RATIO TSH, THIRD [id number] 00:00:00* Test Item Value Reference Range Interpretation Comme nts TSH, THIRD GENERATION (test code = 2821) 1.580 UIU/ML HIV 1/2 4TH GEN, RFLX [id number] 00:00:00* Test Item Value Reference Range Interpretation Comme nts HIV 1/2 4TH GEN, RFLX CONF ( test code = 3514) NON-REACTIVE ACUTE HEPATITIS [id number] 00:00:00* Test Item Value Reference Range Interpretation Comme nts HEPATITIS A IgM (test code = 15981) NON-REACTIVE HEPATITIS B CORE IgM (test c ode = 4644) NON-REACTIVE HEPATITIS B SURF AG (test co de = 2739) NON-REACTIVE HEPATITIS C ANTIBODY (test c ode = 4675) NON-REACTIVE INTERPRETATION HEPATITIS A: (test code = 2552) (NOTE) INTERPRETATION HEPATITIS B: (test code = 85525) (NOTE) INTERPRETATION HEPATITIS C: (test code = 25457) (NOTE) CT/NG, TMA, [id number] 00:00:00* Test Item Value Reference Range Interpretation Comme nts GONORRHEA, NAAT (test code = 19114) NEGATIVE CHLAMYDIA, NAAT (test code = 97108) NEGATIVE COMPREHENSIVE METABOLIC [id number] 00:00:00* Test Item Value Reference Range Interpretation Comme nts GLUCOSE (test code = 2217) 104 MG/DL BUN (test code = 2208) 13 MG/DL CREATININE (test code = 2214) 0.68 MG/DL eGFR (2020 CKD-EPI) (test co de = 29767) 98 ML/MIN/1.73 CALC BUN/CREAT (test code = 2235) 19 RATIO SODIUM (test code = 2231) 141 MEQ/L POTASSIUM (test code = 2228) 3.5 MEQ/L CHLORIDE (test code = 2215) 103 MEQ/L CARBON DIOXIDE (test code = 2206) 25 MEQ/L CALCIUM (test code = 2209) 9.5 MG/DL PROTEIN, TOTAL (test code = 2229) 6.9 G/DL ALBUMIN (test code = 2201) 4.2 G/DL CALC GLOBULIN (test code = 2240) 2.7 G/DL CALC A/G RATIO (test code = 2234) 1.6 RATIO BILIRUBIN, TOTAL (test code = 2207) 0.7 MG/DL ALKALINE PHOSPHATASE (test code = 2204) 118 U/L AST (test code = 2218) 45 U/L ALT (test code = 2219) 38 U/L Jonatan EasonCBC W/AUTO [id number] 00:00:00* Test Item Value Reference Range Interpretation Comme nts WBC (test code = 1001) 5.1 K/UL RBC (test code = 1002) 4.51 M/UL HEMOGLOBIN (test code = 1003) 14.1 G/DL HEMATOCRIT (test code = 1004) 42.3 % MCV (test code = 1005) 93.8 fL MCH (test code = 1006) 31.3 PG MCHC (test code = 1007) 33.3 G/DL RDW (test code = 1038) 15.4 % NEUTROPHILS (test code = 1008) 68.1 % LYMPHOCYTES (test code = 1010) 20.2 % MONOCYTES (test code = 1011) 6.9 % EOSINOPHILS (test code = 1012) 3.8 % BASOPHILS (test code = 1013) 0.8 % IMMATURE GRANULOCYTES (test code = 1036) 0.2 % NUCLEATED RBCS (test code = 1065) 0.0 /100WBC'S PLATELET COUNT (test code = 1015) 114 K/UL ABSOLUTE NEUTROPHILS (test c ode = 1066) 3.45 K/UL ABSOLUTE LYMPHOCYTES (test c ode = 1067) 1.02 K/UL ABSOLUTE MONOCYTES (test cod e = 1068) 0.35 K/UL ABSOLUTE EOSINOPHILS (test c ode = 1040) 0.19 K/UL ABSOLUTE BASOPHILS (test cod e = 1069) 0.04 K/UL ABS IMMATURE GRANULOCYTES (t est code = 1020) 0.01 K/UL ABS NUCLEATED RBCS (test cod e = 53930) 0.00 K/UL Jonatan F JenaroLIPID [id number] 00:00:00* Test Item Value Reference Range Interpretation Comme nts CHOLESTEROL (test code = 2210) 186 MG/DL TRIGLYCERIDES (test code = 2232) 122 MG/DL HDL CHOLESTEROL (test code = 2220) 80 MG/DL CALC LDL CHOL (test code = 2237) 84 MG/DL RISK RATIO LDL/HDL (test cod e = 2238) 1.05 RATIO Jonatan EasonTSH, THIRD [id number] 00:00:00* Test Item Value Reference Range Interpretation Comme nts TSH, THIRD GENERATION (test code = 2821) 1.580 UIU/ML Jonatan EasonHIV 1/2 4TH GEN, RFLX [id number] 00:00:00* Test Item Value Reference Range Interpretation Comme nts HIV 1/2 4TH GEN, RFLX CONF ( test code = 3514) NON-REACTIVE Jonatan EasonACUTE HEPATITIS [id number] 00:00:00* Test Item Value Reference Range Interpretation Comme nts HEPATITIS A IgM (test code = 89528) NON-REACTIVE HEPATITIS B CORE IgM (test c ode = 4644) NON-REACTIVE HEPATITIS B SURF AG (test co de = 2739) NON-REACTIVE HEPATITIS C ANTIBODY (test c ode = 4659) NON-REACTIVE INTERPRETATION HEPATITIS A: (test code = 2552) (NOTE) INTERPRETATION HEPATITIS B: (test code = 83626) (NOTE) INTERPRETATION HEPATITIS C: (test code = 79759) (NOTE) Jonatan EasonCT/NG, TMA, [id number] 00:00:00* Test Item Value Reference Range Interpretation Comme nts GONORRHEA, NAAT (test code = 52982) NEGATIVE CHLAMYDIA, NAAT (test code = 73822) NEGATIVE Jonatan EasonCOMPREHENSIVE METABOLIC [id number] 00:00:00* Test Item Value Reference Range Interpretation Comme nts GLUCOSE (test code = 2217) 104 MG/DL BUN (test code = 2208) 13 MG/DL CREATININE (test code = 2214) 0.68 MG/DL eGFR (2020 CKD-EPI) (test co de = 27550) 98 ML/MIN/1.73 CALC BUN/CREAT (test code = 2235) 19 RATIO SODIUM (test code = 2231) 141 MEQ/L POTASSIUM (test code = 2228) 3.5 MEQ/L CHLORIDE (test code = 2215) 103 MEQ/L CARBON DIOXIDE (test code = 2206) 25 MEQ/L CALCIUM (test code = 2209) 9.5 MG/DL PROTEIN, TOTAL (test code = 2229) 6.9 G/DL ALBUMIN (test code = 2201) 4.2 G/DL CALC GLOBULIN (test code = 2240) 2.7 G/DL CALC A/G RATIO (test code = 2234) 1.6 RATIO BILIRUBIN, TOTAL (test code = 2207) 0.7 MG/DL ALKALINE PHOSPHATASE (test code = 2204) 118 U/L AST (test code = 2218) 45 U/L ALT (test code = 2219) 38 U/L Jonatan Barber [facility]/AUTO [id number] 00:00:00* Test Item Value Reference Range Interpretation Comme nts WBC (test code = 1001) 5.1 K/UL RBC (test code = 1002) 4.51 M/UL HEMOGLOBIN (test code = 1003) 14.1 G/DL HEMATOCRIT (test code = 1004) 42.3 % MCV (test code = 1005) 93.8 fL MCH (test code = 1006) 31.3 PG MCHC (test code = 1007) 33.3 G/DL RDW (test code = 1038) 15.4 % NEUTROPHILS (test code = 1008) 68.1 % LYMPHOCYTES (test code = 1010) 20.2 % MONOCYTES (test code = 1011) 6.9 % EOSINOPHILS (test code = 1012) 3.8 % BASOPHILS (test code = 1013) 0.8 % IMMATURE GRANULOCYTES (test code = 1036) 0.2 % NUCLEATED RBCS (test code = 1065) 0.0 /100WBC'S PLATELET COUNT (test code = 1015) 114 K/UL ABSOLUTE NEUTROPHILS (test c ode = 1066) 3.45 K/UL ABSOLUTE LYMPHOCYTES (test c ode = 1067) 1.02 K/UL ABSOLUTE MONOCYTES (test cod e = 1068) 0.35 K/UL ABSOLUTE EOSINOPHILS (test c ode = 1040) 0.19 K/UL ABSOLUTE BASOPHILS (test cod e = 1069) 0.04 K/UL ABS IMMATURE GRANULOCYTES (t est code = 1020) 0.01 K/UL ABS NUCLEATED RBCS (test cod e = 22822) 0.00 K/UL Jonatan EasonLIPID [id number] 00:00:00* Test Item Value Reference Range Interpretation Comme nts CHOLESTEROL (test code = 2210) 186 MG/DL TRIGLYCERIDES (test code = 2232) 122 MG/DL HDL CHOLESTEROL (test code = 2220) 80 MG/DL CALC LDL CHOL (test code = 2237) 84 MG/DL RISK RATIO LDL/HDL (test cod e = 2238) 1.05 RATIO Jonatan EasonTSH, THIRD [id number] 00:00:00* Test Item Value Reference Range Interpretation Comme nts TSH, THIRD GENERATION (test code = 2821) 1.580 UIU/ML Jonatan EasonHIV 1/2 4TH GEN, RFLX [id number] 00:00:00* Test Item Value Reference Range Interpretation Comme nts HIV 1/2 4TH GEN, RFLX CONF ( test code = 3514) NON-REACTIVE Jonatan EasonACUTE HEPATITIS [id number] 00:00:00* Test Item Value Reference Range Interpretation Comme nts HEPATITIS A IgM (test code = 59521) NON-REACTIVE HEPATITIS B CORE IgM (test c ode = 4644) NON-REACTIVE HEPATITIS B SURF AG (test co de = 2739) NON-REACTIVE HEPATITIS C ANTIBODY (test c ode = 4605) NON-REACTIVE INTERPRETATION HEPATITIS A: (test code = 2552) (NOTE) INTERPRETATION HEPATITIS B: (test code = 77525) (NOTE) INTERPRETATION HEPATITIS C: (test code = 55255) (NOTE) Jonatan EasonCT/NG, TMA, [id number] 00:00:00* Test Item Value Reference Range Interpretation Comme nts GONORRHEA, NAAT (test code = 83038) NEGATIVE CHLAMYDIA, NAAT (test code = 01303) NEGATIVE Jonatan EasonCOMPREHENSIVE METABOLIC [id number] 00:00:00* Test Item Value Reference Range Interpretation Comme nts GLUCOSE (test code = 2217) 104 MG/DL BUN (test code = 2208) 13 MG/DL CREATININE (test code = 2214) 0.68 MG/DL eGFR (2020 CKD-EPI) (test co de = 92195) 98 ML/MIN/1.73 CALC BUN/CREAT (test code = 2235) 19 RATIO SODIUM (test code = 2231) 141 MEQ/L POTASSIUM (test code = 2228) 3.5 MEQ/L CHLORIDE (test code = 2215) 103 MEQ/L CARBON DIOXIDE (test code = 2206) 25 MEQ/L CALCIUM (test code = 2209) 9.5 MG/DL PROTEIN, TOTAL (test code = 2229) 6.9 G/DL ALBUMIN (test code = 2201) 4.2 G/DL CALC GLOBULIN (test code = 2240) 2.7 G/DL CALC A/G RATIO (test code = 2234) 1.6 RATIO BILIRUBIN, TOTAL (test code = 2207) 0.7 MG/DL ALKALINE PHOSPHATASE (test code = 2204) 118 U/L AST (test code = 2218) 45 U/L ALT (test code = 2219) 38 U/L Jonatan EasonCOMPREHENSIVE METABOLIC [id number] 00:00:00* Test Item Value Reference Range Interpretation Comme nts GLUCOSE (test code = 2217) 104 MG/DL BUN (test code = 2208) 13 MG/DL CREATININE (test code = 2214) 0.68 MG/DL eGFR (2020 CKD-EPI) (test co de = 36867) 98 ML/MIN/1.73 CALC BUN/CREAT (test code = 2235) 19 RATIO SODIUM (test code = 2231) 141 MEQ/L POTASSIUM (test code = 2228) 3.5 MEQ/L CHLORIDE (test code = 2215) 103 MEQ/L CARBON DIOXIDE (test code = 2206) 25 MEQ/L CALCIUM (test code = 2209) 9.5 MG/DL PROTEIN, TOTAL (test code = 2229) 6.9 G/DL ALBUMIN (test code = 2201) 4.2 G/DL CALC GLOBULIN (test code = 2240) 2.7 G/DL CALC A/G RATIO (test code = 2234) 1.6 RATIO BILIRUBIN, TOTAL (test code = 2207) 0.7 MG/DL ALKALINE PHOSPHATASE (test code = 2204) 118 U/L AST (test code = 2218) 45 U/L ALT (test code = 2219) 38 U/L CBC W/AUTO [id number] 00:00:00* Test Item Value Reference Range Interpretation Comme nts WBC (test code = 1001) 5.1 K/UL RBC (test code = 1002) 4.51 M/UL HEMOGLOBIN (test code = 1003) 14.1 G/DL HEMATOCRIT (test code = 1004) 42.3 % MCV (test code = 1005) 93.8 fL MCH (test code = 1006) 31.3 PG MCHC (test code = 1007) 33.3 G/DL RDW (test code = 1038) 15.4 % NEUTROPHILS (test code = 1008) 68.1 % LYMPHOCYTES (test code = 1010) 20.2 % MONOCYTES (test code = 1011) 6.9 % EOSINOPHILS (test code = 1012) 3.8 % BASOPHILS (test code = 1013) 0.8 % IMMATURE GRANULOCYTES (test code = 1036) 0.2 % NUCLEATED RBCS (test code = 1065) 0.0 /100WBC'S PLATELET COUNT (test code = 1015) 114 K/UL ABSOLUTE NEUTROPHILS (test c ode = 1066) 3.45 K/UL ABSOLUTE LYMPHOCYTES (test c ode = 1067) 1.02 K/UL ABSOLUTE MONOCYTES (test cod e = 1068) 0.35 K/UL ABSOLUTE EOSINOPHILS (test c ode = 1040) 0.19 K/UL ABSOLUTE BASOPHILS (test cod e = 1069) 0.04 K/UL ABS IMMATURE GRANULOCYTES (t est code = 1020) 0.01 K/UL ABS NUCLEATED RBCS (test cod e = 89805) 0.00 K/UL LIPID [id number] 00:00:00* Test Item Value Reference Range Interpretation Comme nts CHOLESTEROL (test code = 2210) 186 MG/DL TRIGLYCERIDES (test code = 2232) 122 MG/DL HDL CHOLESTEROL (test code = 2220) 80 MG/DL CALC LDL CHOL (test code = 2237) 84 MG/DL RISK RATIO LDL/HDL (test cod e = 2238) 1.05 RATIO TSH, THIRD [id number] 00:00:00* Test Item Value Reference Range Interpretation Comme [facility] TSH, THIRD GENERATION (test code = 2821) 1.580 UIU/ML HIV 1/2 4TH GEN, RFLX [id number] 00:00:00* Test Item Value Reference Range Interpretation Comme nts HIV 1/2 4TH GEN, RFLX CONF ( test code = 3514) NON-REACTIVE ACUTE HEPATITIS [id number] 00:00:00* Test Item Value Reference Range Interpretation Comme nts HEPATITIS A IgM (test code = 41412) NON-REACTIVE HEPATITIS B CORE IgM (test c ode = 4644) NON-REACTIVE HEPATITIS B SURF AG (test co de = 6818) NON-REACTIVE HEPATITIS C ANTIBODY (test c ode = 4288) NON-REACTIVE INTERPRETATION HEPATITIS A: (test code = 2552) (NOTE) INTERPRETATION HEPATITIS B: (test code = 55511) (NOTE) INTERPRETATION HEPATITIS C: (test code = 04899) (NOTE) CT/NG, TMA, [id number] 00:00:00* Test Item Value Reference Range Interpretation Comme nts GONORRHEA, NAAT (test code = 50594) NEGATIVE CHLAMYDIA, NAAT (test code = 23358) NEGATIVE COMPREHENSIVE METABOLIC [id number] 00:00:00* Test Item Value Reference Range Interpretation Comme nts GLUCOSE (test code = 2217) 104 MG/DL BUN (test code = 2208) 13 MG/DL CREATININE (test code = 2214) 0.68 MG/DL eGFR (2020 CKD-EPI) (test co de = 70615) 98 ML/MIN/1.73 CALC BUN/CREAT (test code = 2235) 19 RATIO SODIUM (test code = 2231) 141 MEQ/L POTASSIUM (test code = 2228) 3.5 MEQ/L CHLORIDE (test code = 2215) 103 MEQ/L CARBON DIOXIDE (test code = 2206) 25 MEQ/L CALCIUM (test code = 2209) 9.5 MG/DL PROTEIN, TOTAL (test code = 2229) 6.9 G/DL ALBUMIN (test code = 2201) 4.2 G/DL CALC GLOBULIN (test code = 2240) 2.7 G/DL CALC A/G RATIO (test code = 2234) 1.6 RATIO BILIRUBIN, TOTAL (test code = 2207) 0.7 MG/DL ALKALINE PHOSPHATASE (test code = 2204) 118 U/L AST (test code = 2218) 45 U/L ALT (test code = 2219) 38 U/L CBC W/AUTO [id number] 00:00:00* Test Item Value Reference Range Interpretation Comme nts WBC (test code = 1001) 5.1 K/UL RBC (test code = 1002) 4.51 M/UL HEMOGLOBIN (test code = 1003) 14.1 G/DL HEMATOCRIT (test code = 1004) 42.3 % MCV (test code = 1005) 93.8 fL MCH (test code = 1006) 31.3 PG MCHC (test code = 1007) 33.3 G/DL RDW (test code = 1038) 15.4 % NEUTROPHILS (test code = 1008) 68.1 % LYMPHOCYTES (test code = 1010) 20.2 % MONOCYTES (test code = 1011) 6.9 % EOSINOPHILS (test code = 1012) 3.8 % BASOPHILS (test code = 1013) 0.8 % IMMATURE GRANULOCYTES (test code = 1036) 0.2 % NUCLEATED RBCS (test code = 1065) 0.0 /100WBC'S PLATELET COUNT (test code = 1015) 114 K/UL ABSOLUTE NEUTROPHILS (test c ode = 1066) 3.45 K/UL ABSOLUTE LYMPHOCYTES (test c ode = 1067) 1.02 K/UL ABSOLUTE MONOCYTES (test cod e = 1068) 0.35 K/UL ABSOLUTE EOSINOPHILS (test c ode = 1040) 0.19 K/UL ABSOLUTE BASOPHILS (test cod e = 1069) 0.04 K/UL ABS IMMATURE GRANULOCYTES (t est code = 1020) 0.01 K/UL ABS NUCLEATED RBCS (test cod e = 71573) 0.00 K/UL LIPID [id number] 00:00:00* Test Item Value Reference Range Interpretation Comme nts CHOLESTEROL (test code = 2210) 186 MG/DL TRIGLYCERIDES (test code = 2232) 122 MG/DL HDL CHOLESTEROL (test code = 2220) 80 MG/DL CALC LDL CHOL (test code = 2237) 84 MG/DL RISK RATIO LDL/HDL (test cod e = 2238) 1.05 RATIO TSH, THIRD [id number] 00:00:00* Test Item Value Reference Range Interpretation Comme [facility] TSH, THIRD GENERATION (test code = 2821) 1.580 UIU/ML HIV 1/2 4TH GEN, RFLX [id number] 00:00:00* Test Item Value Reference Range Interpretation Comme [facility] HIV 1/2 4TH GEN, RFLX CONF ( test code = 3514) NON-REACTIVE ACUTE HEPATITIS [id number] 00:00:00* Test Item Value Reference Range Interpretation Comme nts HEPATITIS A IgM (test code = 23119) NON-REACTIVE HEPATITIS B CORE IgM (test c ode = 4644) NON-REACTIVE HEPATITIS B SURF AG (test co de = 2739) NON-REACTIVE HEPATITIS C ANTIBODY (test c ode = 4622) NON-REACTIVE INTERPRETATION HEPATITIS A: (test code = 2552) (NOTE) INTERPRETATION HEPATITIS B: (test code = 38263) (NOTE) INTERPRETATION HEPATITIS C: (test code = 82334) (NOTE) CT/NG, TMA, [id number] 00:00:00* Test Item Value Reference Range Interpretation Comme nts GONORRHEA, NAAT (test code = 01686) NEGATIVE CHLAMYDIA, NAAT (test code = 51946) NEGATIVE CBC W/AUTO [id number] 00:00:00* Test Item Value Reference Range Interpretation Comme nts WBC (test code = 1001) 5.1 K/UL RBC (test code = 1002) 4.51 M/UL HEMOGLOBIN (test code = 1003) 14.1 G/DL HEMATOCRIT (test code = 1004) 42.3 % MCV (test code = 1005) 93.8 fL MCH (test code = 1006) 31.3 PG MCHC (test code = 1007) 33.3 G/DL RDW (test code = 1038) 15.4 % NEUTROPHILS (test code = 1008) 68.1 % LYMPHOCYTES (test code = 1010) 20.2 % MONOCYTES (test code = 1011) 6.9 % EOSINOPHILS (test code = 1012) 3.8 % BASOPHILS (test code = 1013) 0.8 % IMMATURE GRANULOCYTES (test code = 1036) 0.2 % NUCLEATED RBCS (test code = 1065) 0.0 /100WBC'S PLATELET COUNT (test code = 1015) 114 K/UL ABSOLUTE NEUTROPHILS (test c ode = 1066) 3.45 K/UL ABSOLUTE LYMPHOCYTES (test c ode = 1067) 1.02 K/UL ABSOLUTE MONOCYTES (test cod e = 1068) 0.35 K/UL ABSOLUTE EOSINOPHILS (test c ode = 1040) 0.19 K/UL ABSOLUTE BASOPHILS (test cod e = 1069) 0.04 K/UL ABS IMMATURE GRANULOCYTES (t est code = 1020) 0.01 K/UL ABS NUCLEATED RBCS (test cod e = 59296) 0.00 K/UL Jonatan Granado, THIRD [id number] 06:37:18* Test Item Value Reference Range Interpretation Comme nts TSH, THIRD GENERATION (test code = 2821) 0.328 UIU/ML 0.400-4.100 L UNLESS OTHERWISE INDICATED, ALL TESTING PERFORMED [facility] [employer] [address] [place] [address] MOTOR COACH OPERATOR: CASSIE PHAM M.D. CLIA NUMBER [id number] [facility]. [id number] CBC W/AUTO DIFF WITH [id number] 06:14:20* Test Item Value Reference Range Interpretation Comme nts WBC (test code = 1001) 4.9 K/UL 3.5-11.0 RBC (test code = 1002) 3.57 M/UL 3.80-5.40 L HEMOGLOBIN (test code = 1003) 11.5 G/DL 11.5-15.5 HEMATOCRIT (test code = 1004) 32.9 % 34.0-45.0 L MCV (test code = 1005) 92.2 fL 80.0-99.0 MCH (test code = 1006) 32.2 PG 25.0-33.0 MCHC (test code = 1007) 35.0 G/DL 31.0-36.0 RDW (test code = 1038) 13.9 % 11.5-15.0 NEUTROPHILS (test code = 1008) 62.6 % LYMPHOCYTES (test code = 1010) 23.7 % MONOCYTES (test code = 1011) 9.4 % EOSINOPHILS (test code = 1012) 3.3 % BASOPHILS (test code = 1013) 0.6 % IMMATURE GRANULOCYTES (test code = 1036) 0.4 % NUCLEATED RBCS (test code = 1065) 0.0 /100 WBC'S See_Comment [Automated messa ge] The system which generated this result transmitted reference range: 0.0. The reference range was not used to interpret this result as normal/abnormal. PLATELET COUNT (test code = 1015) 96 K/UL 130-400 L ABSOLUTE NEUTROPHILS (test code = 1066) 3.06 K/UL 1.50-7.50 ABSOLUTE LYMPHOCYTES (test code = 1067) 1.16 K/UL 1.00-4.00 ABSOLUTE MONOCYTES (test code = 1068) 0.46 K/UL 0.20-1.00 ABSOLUTE EOSINOPHILS (test code = 1040) 0.16 K/UL 0.00-0.50 ABSOLUTE BASOPHILS (test code = 1069) 0.03 K/UL 0.00-0.20 ABS IMMATURE GRANULOCYTES (test code = 1020) 0.02 K/UL 0.00-0.10 ABS NUCLEATED RBCS (test code = 56948) 0.00 K/UL 0.00-0.11 LIPID [id number] 06:03:11* Test Item Value Reference Range Interpretation Comme nts CHOLESTEROL (test code = 2210) 154 MG/DL <200 TRIGLYCERIDES (test code = 2232) 175 MG/DL <150 H HDL CHOLESTEROL (test code = 2220) 71 MG/DL >39 CALC LDL CHOL (test code = 2237) 58 MG/DL <100 NOTE: CALCULATED LDL IS BASED ON OJ-HERNANDES METHOD WHICHINCLUDES ADJUSTABLE TRIGLYCERIDE:VLDL CHOLESTEROL RATIO.THIS FACTOR VARIES BY MEASURED TRIGLYCERIDE AND NON-HDLCHOLESTEROL CONCENTRATIONS WITH INCREASED CALCULATED LDL SEENIN HIGHER TRIGLYCERIDE OR LOWER NON-HDL SPECIMENS. FOR MOREINFORMATION, SEE CLIENT ANNOUNCEMENT AT [email or web address] RISK RATIO LDL/HDL (test code = 2238) 0.82 RATIO <3.22 CBC W/AUTO [id number] 00:00:00* Test Item Value Reference Range Interpretation Comme nts WBC (test code = 1001) 4.9 K/UL RBC (test code = 1002) 3.57 M/UL HEMOGLOBIN (test code = 1003) 11.5 G/DL HEMATOCRIT (test code = 1004) 32.9 % MCV (test code = 1005) 92.2 fL MCH (test code = 1006) 32.2 PG MCHC (test code = 1007) 35.0 G/DL RDW (test code = 1038) 13.9 % NEUTROPHILS (test code = 1008) 62.6 % LYMPHOCYTES (test code = 1010) 23.7 % MONOCYTES (test code = 1011) 9.4 % EOSINOPHILS (test code = 1012) 3.3 % BASOPHILS (test code = 1013) 0.6 % IMMATURE GRANULOCYTES (test code = 1036) 0.4 % NUCLEATED RBCS (test code = 1065) 0.0 /100WBC'S PLATELET COUNT (test code = 1015) 96 K/UL ABSOLUTE NEUTROPHILS (test c ode = 1066) 3.06 K/UL ABSOLUTE LYMPHOCYTES (test c ode = 1067) 1.16 K/UL ABSOLUTE MONOCYTES (test cod e = 1068) 0.46 K/UL ABSOLUTE EOSINOPHILS (test c ode = 1040) 0.16 K/UL ABSOLUTE BASOPHILS (test cod e = 1069) 0.03 K/UL ABS IMMATURE GRANULOCYTES (t est code = 1020) 0.02 K/UL ABS NUCLEATED RBCS (test cod e = 39121) 0.00 K/UL LIPID [id number] 00:00:00* Test Item Value Reference Range Interpretation Comme nts CHOLESTEROL (test code = 2210) 154 MG/DL TRIGLYCERIDES (test code = 2232) 175 MG/DL HDL CHOLESTEROL (test code = 2220) 71 MG/DL CALC LDL CHOL (test code = 2237) 58 MG/DL RISK RATIO LDL/HDL (test cod e = 2238) 0.82 RATIO [id number] 00:00:00* Test Item Value Reference Range Interpretation Comme nts TSH, THIRD GENERATION (test code = 2821) 0.328 UIU/ML [id number] 00:00:00* Test Item Value Reference Range Interpretation Comme nts TSH, THIRD GENERATION (test code = 2821) 0.328 UIU/ML Jonatan EasonLopez W/AUTO [id number] 00:00:00* Test Item Value Reference Range Interpretation Comme nts WBC (test code = 1001) 4.9 K/UL RBC (test code = 1002) 3.57 M/UL HEMOGLOBIN (test code = 1003) 11.5 G/DL HEMATOCRIT (test code = 1004) 32.9 % MCV (test code = 1005) 92.2 fL MCH (test code = 1006) 32.2 PG MCHC (test code = 1007) 35.0 G/DL RDW (test code = 1038) 13.9 % NEUTROPHILS (test code = 1008) 62.6 % LYMPHOCYTES (test code = 1010) 23.7 % MONOCYTES (test code = 1011) 9.4 % EOSINOPHILS (test code = 1012) 3.3 % BASOPHILS (test code = 1013) 0.6 % IMMATURE GRANULOCYTES (test code = 1036) 0.4 % NUCLEATED RBCS (test code = 1065) 0.0 /100WBC'S PLATELET COUNT (test code = 1015) 96 K/UL ABSOLUTE NEUTROPHILS (test c ode = 1066) 3.06 K/UL ABSOLUTE LYMPHOCYTES (test c ode = 1067) 1.16 K/UL ABSOLUTE MONOCYTES (test cod e = 1068) 0.46 K/UL ABSOLUTE EOSINOPHILS (test c ode = 1040) 0.16 K/UL ABSOLUTE BASOPHILS (test cod e = 1069) 0.03 K/UL ABS IMMATURE GRANULOCYTES (t est code = 1020) 0.02 K/UL ABS NUCLEATED RBCS (test cod e = 02351) 0.00 K/UL LIPID [id number] 00:00:00* Test Item Value Reference Range Interpretation Comme nts CHOLESTEROL (test code = 2210) 154 MG/DL TRIGLYCERIDES (test code = 2232) 175 MG/DL HDL CHOLESTEROL (test code = 2220) 71 MG/DL CALC LDL CHOL (test code = 2237) 58 MG/DL RISK RATIO LDL/HDL (test cod e = 2238) 0.82 RATIO [id number] 00:00:00* Test Item Value Reference Range Interpretation Comme nts TSH, THIRD GENERATION (test code = 2821) 0.328 UIU/ML CBC W/AUTO [id number] 00:00:00* Test Item Value Reference Range Interpretation Comme nts WBC (test code = 1001) 4.9 K/UL RBC (test code = 1002) 3.57 M/UL HEMOGLOBIN (test code = 1003) 11.5 G/DL HEMATOCRIT (test code = 1004) 32.9 % MCV (test code = 1005) 92.2 fL MCH (test code = 1006) 32.2 PG MCHC (test code = 1007) 35.0 G/DL RDW (test code = 1038) 13.9 % NEUTROPHILS (test code = 1008) 62.6 % LYMPHOCYTES (test code = 1010) 23.7 % MONOCYTES (test code = 1011) 9.4 % EOSINOPHILS (test code = 1012) 3.3 % BASOPHILS (test code = 1013) 0.6 % IMMATURE GRANULOCYTES (test code = 1036) 0.4 % NUCLEATED RBCS (test code = 1065) 0.0 /100WBC'S PLATELET COUNT (test code = 1015) 96 K/UL ABSOLUTE NEUTROPHILS (test c ode = 1066) 3.06 K/UL ABSOLUTE LYMPHOCYTES (test c ode = 1067) 1.16 K/UL ABSOLUTE MONOCYTES (test cod e = 1068) 0.46 K/UL ABSOLUTE EOSINOPHILS (test c ode = 1040) 0.16 K/UL ABSOLUTE BASOPHILS (test cod e = 1069) 0.03 K/UL ABS IMMATURE GRANULOCYTES (t est code = 1020) 0.02 K/UL ABS NUCLEATED RBCS (test cod e = 59441) 0.00 K/UL Jonatan EasonLIPID [id number] 00:00:00* Test Item Value Reference Range Interpretation Comme nts CHOLESTEROL (test code = 2210) 154 MG/DL TRIGLYCERIDES (test code = 2232) 175 MG/DL HDL CHOLESTEROL (test code = 2220) 71 MG/DL CALC LDL CHOL (test code = 2237) 58 MG/DL RISK RATIO LDL/HDL (test cod e = 2238) 0.82 RATIO Jonatan [id number] 00:00:00* Test Item Value Reference Range Interpretation Comme nts TSH, THIRD GENERATION (test code = 2821) 0.328 UIU/ML Jonatan EasonCBC W/AUTO [id number] 00:00:00* Test Item Value Reference Range Interpretation Comme nts WBC (test code = 1001) 4.9 K/UL RBC (test code = 1002) 3.57 M/UL HEMOGLOBIN (test code = 1003) 11.5 G/DL HEMATOCRIT (test code = 1004) 32.9 % MCV (test code = 1005) 92.2 fL MCH (test code = 1006) 32.2 PG MCHC (test code = 1007) 35.0 G/DL RDW (test code = 1038) 13.9 % NEUTROPHILS (test code = 1008) 62.6 % LYMPHOCYTES (test code = 1010) 23.7 % MONOCYTES (test code = 1011) 9.4 % EOSINOPHILS (test code = 1012) 3.3 % BASOPHILS (test code = 1013) 0.6 % IMMATURE GRANULOCYTES (test code = 1036) 0.4 % NUCLEATED RBCS (test code = 1065) 0.0 /100WBC'S PLATELET COUNT (test code = 1015) 96 K/UL ABSOLUTE NEUTROPHILS (test c ode = 1066) 3.06 K/UL ABSOLUTE LYMPHOCYTES (test c ode = 1067) 1.16 K/UL ABSOLUTE MONOCYTES (test cod e = 1068) 0.46 K/UL ABSOLUTE EOSINOPHILS (test c ode = 1040) 0.16 K/UL ABSOLUTE BASOPHILS (test cod e = 1069) 0.03 K/UL ABS IMMATURE GRANULOCYTES (t est code = 1020) 0.02 K/UL ABS NUCLEATED RBCS (test cod e = 09151) 0.00 K/UL Jonatan EasonLIPID [id number] 00:00:00* Test Item Value Reference Range Interpretation Comme nts CHOLESTEROL (test code = 2210) 154 MG/DL TRIGLYCERIDES (test code = 2232) 175 MG/DL HDL CHOLESTEROL (test code = 2220) 71 MG/DL CALC LDL CHOL (test code = 2237) 58 MG/DL RISK RATIO LDL/HDL (test cod e = 2238) 0.82 RATIO Jonatan [id number] 00:00:00* Test Item Value Reference Range Interpretation Comme nts TSH, THIRD GENERATION (test code = 2821) 0.328 UIU/ML Jonatan EasonCBC W/AUTO [id number] 00:00:00* Test Item Value Reference Range Interpretation Comme nts WBC (test code = 1001) 4.9 K/UL RBC (test code = 1002) 3.57 M/UL HEMOGLOBIN (test code = 1003) 11.5 G/DL HEMATOCRIT (test code = 1004) 32.9 % MCV (test code = 1005) 92.2 fL MCH (test code = 1006) 32.2 PG MCHC (test code = 1007) 35.0 G/DL RDW (test code = 1038) 13.9 % NEUTROPHILS (test code = 1008) 62.6 % LYMPHOCYTES (test code = 1010) 23.7 % MONOCYTES (test code = 1011) 9.4 % EOSINOPHILS (test code = 1012) 3.3 % BASOPHILS (test code = 1013) 0.6 % IMMATURE GRANULOCYTES (test code = 1036) 0.4 % NUCLEATED RBCS (test code = 1065) 0.0 /100WBC'S PLATELET COUNT (test code = 1015) 96 K/UL ABSOLUTE NEUTROPHILS (test c ode = 1066) 3.06 K/UL ABSOLUTE LYMPHOCYTES (test c ode = 1067) 1.16 K/UL ABSOLUTE MONOCYTES (test cod e = 1068) 0.46 K/UL ABSOLUTE EOSINOPHILS (test c ode = 1040) 0.16 K/UL ABSOLUTE BASOPHILS (test cod e = 1069) 0.03 K/UL ABS IMMATURE GRANULOCYTES (t est code = 1020) 0.02 K/UL ABS NUCLEATED RBCS (test cod e = 49694) 0.00 K/UL LIPID [id number] 00:00:00* Test Item Value Reference Range Interpretation Comme nts CHOLESTEROL (test code = 2210) 154 MG/DL TRIGLYCERIDES (test code = 2232) 175 MG/DL HDL CHOLESTEROL (test code = 2220) 71 MG/DL CALC LDL CHOL (test code = 2237) 58 MG/DL RISK RATIO LDL/HDL (test cod e = 2238) 0.82 RATIO [id number] 00:00:00* Test Item Value Reference Range Interpretation Comme nts TSH, THIRD GENERATION (test code = 2821) 0.328 UIU/ML CBC W/AUTO [id number] 00:00:00* Test Item Value Reference Range Interpretation Comme nts WBC (test code = 1001) 4.9 K/UL RBC (test code = 1002) 3.57 M/UL HEMOGLOBIN (test code = 1003) 11.5 G/DL HEMATOCRIT (test code = 1004) 32.9 % MCV (test code = 1005) 92.2 fL MCH (test code = 1006) 32.2 PG MCHC (test code = 1007) 35.0 G/DL RDW (test code = 1038) 13.9 % NEUTROPHILS (test code = 1008) 62.6 % LYMPHOCYTES (test code = 1010) 23.7 % MONOCYTES (test code = 1011) 9.4 % EOSINOPHILS (test code = 1012) 3.3 % BASOPHILS (test code = 1013) 0.6 % IMMATURE GRANULOCYTES (test code = 1036) 0.4 % NUCLEATED RBCS (test code = 1065) 0.0 /100WBC'S PLATELET COUNT (test code = 1015) 96 K/UL ABSOLUTE NEUTROPHILS (test c ode = 1066) 3.06 K/UL ABSOLUTE LYMPHOCYTES (test c ode = 1067) 1.16 K/UL ABSOLUTE MONOCYTES (test cod e = 1068) 0.46 K/UL ABSOLUTE EOSINOPHILS (test c ode = 1040) 0.16 K/UL ABSOLUTE BASOPHILS (test cod e = 1069) 0.03 K/UL ABS IMMATURE GRANULOCYTES (t est code = 1020) 0.02 K/UL ABS NUCLEATED RBCS (test cod e = 75217) 0.00 K/UL LIPID [id number] 00:00:00* Test Item Value Reference Range Interpretation Comme nts CHOLESTEROL (test code = 2210) 154 MG/DL TRIGLYCERIDES (test code = 2232) 175 MG/DL HDL CHOLESTEROL (test code = 2220) 71 MG/DL CALC LDL CHOL (test code = 2237) 58 MG/DL RISK RATIO LDL/HDL (test cod e = 2238) 0.82 RATIO CBC W/AUTO [id number] 00:00:00* Test Item Value Reference Range Interpretation Comme nts WBC (test code = 1001) 4.9 K/UL RBC (test code = 1002) 3.57 M/UL HEMOGLOBIN (test code = 1003) 11.5 G/DL HEMATOCRIT (test code = 1004) 32.9 % MCV (test code = 1005) 92.2 fL MCH (test code = 1006) 32.2 PG MCHC (test code = 1007) 35.0 G/DL RDW (test code = 1038) 13.9 % NEUTROPHILS (test code = 1008) 62.6 % LYMPHOCYTES (test code = 1010) 23.7 % MONOCYTES (test code = 1011) 9.4 % EOSINOPHILS (test code = 1012) 3.3 % BASOPHILS (test code = 1013) 0.6 % IMMATURE GRANULOCYTES (test code = 1036) 0.4 % NUCLEATED RBCS (test code = 1065) 0.0 /100WBC'S PLATELET COUNT (test code = 1015) 96 K/UL ABSOLUTE NEUTROPHILS (test c ode = 1066) 3.06 K/UL ABSOLUTE LYMPHOCYTES (test c ode = 1067) 1.16 K/UL ABSOLUTE MONOCYTES (test cod e = 1068) 0.46 K/UL ABSOLUTE EOSINOPHILS (test c ode = 1040) 0.16 K/UL ABSOLUTE BASOPHILS (test cod e = 1069) 0.03 K/UL ABS IMMATURE GRANULOCYTES (t est code = 1020) 0.02 K/UL ABS NUCLEATED RBCS (test cod e = 62947) 0.00 K/UL Jonatan [id number] 00:00:00* Test Item Value Reference Range Interpretation Comme nts TSH, THIRD GENERATION (test code = 2821) 0.328 UIU/ML CBC W/AUTO [id number] 00:00:00* Test Item Value Reference Range Interpretation Comme nts WBC (test code = 1001) 4.9 K/UL RBC (test code = 1002) 3.57 M/UL HEMOGLOBIN (test code = 1003) 11.5 G/DL HEMATOCRIT (test code = 1004) 32.9 % MCV (test code = 1005) 92.2 fL MCH (test code = 1006) 32.2 PG MCHC (test code = 1007) 35.0 G/DL RDW (test code = 1038) 13.9 % NEUTROPHILS (test code = 1008) 62.6 % LYMPHOCYTES (test code = 1010) 23.7 % MONOCYTES (test code = 1011) 9.4 % EOSINOPHILS (test code = 1012) 3.3 % BASOPHILS (test code = 1013) 0.6 % IMMATURE GRANULOCYTES (test code = 1036) 0.4 % NUCLEATED RBCS (test code = 1065) 0.0 /100WBC'S PLATELET COUNT (test code = 1015) 96 K/UL ABSOLUTE NEUTROPHILS (test c ode = 1066) 3.06 K/UL ABSOLUTE LYMPHOCYTES (test c ode = 1067) 1.16 K/UL ABSOLUTE MONOCYTES (test cod e = 1068) 0.46 K/UL ABSOLUTE EOSINOPHILS (test c ode = 1040) 0.16 K/UL ABSOLUTE BASOPHILS (test cod e = 1069) 0.03 K/UL ABS IMMATURE GRANULOCYTES (t est code = 1020) 0.02 K/UL ABS NUCLEATED RBCS (test cod e = 46851) 0.00 K/UL LIPID [id number] 00:00:00* Test Item Value Reference Range Interpretation Comme nts CHOLESTEROL (test code = 2210) 154 MG/DL TRIGLYCERIDES (test code = 2232) 175 MG/DL HDL CHOLESTEROL (test code = 2220) 71 MG/DL CALC LDL CHOL (test code = 2237) 58 MG/DL RISK RATIO LDL/HDL (test cod e = 2238) 0.82 RATIO [id number] 00:00:00* Test Item Value Reference Range Interpretation Comme nts TSH, THIRD GENERATION (test code = 2821) 0.328 UIU/ML LIPID [id number] 00:00:00* Test Item Value Reference Range Interpretation Comme nts CHOLESTEROL (test code = 2210) 154 MG/DL TRIGLYCERIDES (test code = 2232) 175 MG/DL HDL CHOLESTEROL (test code = 2220) 71 MG/DL CALC LDL CHOL (test code = 2237) 58 MG/DL RISK RATIO LDL/HDL (test cod e = 2238) 0.82 RATIO Jonatan Barber JenaroCBC W/AUTO [id number] 00:00:00* Test Item Value Reference Range Interpretation Comme nts WBC (test code = 1001) 4.9 K/UL RBC (test code = 1002) 3.57 M/UL HEMOGLOBIN (test code = 1003) 11.5 G/DL HEMATOCRIT (test code = 1004) 32.9 % MCV (test code = 1005) 92.2 fL MCH (test code = 1006) 32.2 PG MCHC (test code = 1007) 35.0 G/DL RDW (test code = 1038) 13.9 % NEUTROPHILS (test code = 1008) 62.6 % LYMPHOCYTES (test code = 1010) 23.7 % MONOCYTES (test code = 1011) 9.4 % EOSINOPHILS (test code = 1012) 3.3 % BASOPHILS (test code = 1013) 0.6 % IMMATURE GRANULOCYTES (test code = 1036) 0.4 % NUCLEATED RBCS (test code = 1065) 0.0 /100WBC'S PLATELET COUNT (test code = 1015) 96 K/UL ABSOLUTE NEUTROPHILS (test c ode = 1066) 3.06 K/UL ABSOLUTE LYMPHOCYTES (test c ode = 1067) 1.16 K/UL ABSOLUTE MONOCYTES (test cod e = 1068) 0.46 K/UL ABSOLUTE EOSINOPHILS (test c ode = 1040) 0.16 K/UL ABSOLUTE BASOPHILS (test cod e = 1069) 0.03 K/UL ABS IMMATURE GRANULOCYTES (t est code = 1020) 0.02 K/UL ABS NUCLEATED RBCS (test cod e = 38260) 0.00 K/UL LIPID [id number] 00:00:00* Test Item Value Reference Range Interpretation Comme nts CHOLESTEROL (test code = 2210) 154 MG/DL TRIGLYCERIDES (test code = 2232) 175 MG/DL HDL CHOLESTEROL (test code = 2220) 71 MG/DL CALC LDL CHOL (test code = 2237) 58 MG/DL RISK RATIO LDL/HDL (test cod e = 2238) 0.82 RATIO [id number] 00:00:00* Test Item Value Reference Range Interpretation Comme nts TSH, THIRD GENERATION (test code = 2821) 0.328 UIU/ML TSH, THIRD [id number] 04:33:43* Test Item Value Reference Range Interpretation Comme nts TSH, THIRD GENERATION (test code = 2821) 2.380 UIU/ML 0.400-4.100 UNLESS OTHERWISE INDICATED, ALL TESTING PERFORMED [facility] [address] [place] [address] MOTOR COACH OPERATOR: CASSIE PHAM M.D. CLIA NUMBER [id number] [facility] [place]. [id number] 00:00:00* Test Item Value Reference Range Interpretation Comme nts TSH, THIRD GENERATION (test code = 2821) 2.380 UIU/ML [id number] 00:00:00* Test Item Value Reference Range Interpretation Comme nts TSH, THIRD GENERATION (test code = 2821) 2.380 UIU/ML [id number] 00:00:00* Test Item Value Reference Range Interpretation Comme nts TSH, THIRD GENERATION (test code = 2821) 2.380 UIU/ML Jonatan Barber [id number] 00:00:00* Test Item Value Reference Range Interpretation Comme nts TSH, THIRD GENERATION (test code = 2821) 2.380 UIU/ML Jonatan Barber [id number] 00:00:00* Test Item Value Reference Range Interpretation Comme nts TSH, THIRD GENERATION (test code = 2821) 2.380 UIU/ML Jonatan [id number] 00:00:00* Test Item Value Reference Range Interpretation Comme nts TSH, THIRD GENERATION (test code = 2821) 2.380 UIU/ML [id number] 00:00:00* Test Item Value Reference Range Interpretation Comme nts TSH, THIRD GENERATION (test code = 2821) 2.380 UIU/ML [id number] 00:00:00* Test Item Value Reference Range Interpretation Comme nts TSH, THIRD GENERATION (test code = 2821) 2.380 UIU/ML [id number] 00:00:00* Test Item Value Reference Range Interpretation Comme nts TSH, THIRD GENERATION (test code = 2821) 2.380 UIU/ML [id number] 00:00:00* Test Item Value Reference Range Interpretation Comme nts TSH, THIRD GENERATION (test code = 2821) 2.380 UIU/ML CBC W/AUTO DIFF WITH [id number] 04:09:02* Test Item Value Reference Range Interpretation Comme nts WBC (test code = 1001) 6.3 K/UL 3.5-11.0 RBC (test code = 1002) 4.10 M/UL 3.80-5.40 HEMOGLOBIN (test code = 1003) 9.4 G/DL 11.5-15.5 L HEMATOCRIT (test code = 1004) 30.1 % 34.0-45.0 L MCV (test code = 1005) 73.4 fL 80.0-99.0 L MCH (test code = 1006) 22.9 PG 25.0-33.0 L MCHC (test code = 1007) 31.2 G/DL 31.0-36.0 RDW (test code = 1038) 19.2 % 11.5-15.0 H NEUTROPHILS (test code = 1008) 68.5 % LYMPHOCYTES (test code = 1010) 21.1 % MONOCYTES (test code = 1011) 6.2 % EOSINOPHILS (test code = 1012) 2.4 % BASOPHILS (test code = 1013) 1.6 % IMMATURE GRANYLOCYTES (test code = 1036) 0.2 % NUCLEATED RBCS (test code = 1065) 0.0 /100 WBC'S See_Comment [Automated message] The system which generated this result transmitted reference range: 0.0. The reference range was not used to interpret this result as normal/abnormal. PLATELET COUNT (test code = 1015) 213 K/UL 130-400 ABSOLUTE NEUTROPHILS (test code = 1066) 4.28 K/UL 1.50-7.50 ABSOLUTE LYMPHOCYTES (test code = 1067) 1.32 K/UL 1.00-4.00 ABSOLUTE MONOCYTES (test code = 1068) 0.39 K/UL 0.20-1.00 ABSOLUTE EOSINOPHILS (test code = 1040) 0.15 K/UL 0.00-0.50 ABSOLUTE BASOPHILS (test code = 1069) 0.10 K/UL 0.00-0.20 ABS IMMATURE GRANULOCYTES (test code = 1020) 0.01 K/UL 0.00-0.10 ABS NUCLEATED RBCS (test code = 45094) 0.00 K/UL 0.00-0.11 UNLESS OTHER LLANOS INDICATED, ALL TESTING PERFORMED [facility] [employer] [address] [place] [address] MOTOR COACH OPERATOR: CASSIE PHAM M.D. CLIA NUMBER [id number] [facility] [place]. [id number] TSH, THIRD [id number] 03:53:33* Test Item Value Reference Range Interpretation Comme [facility] TSH, THIRD GENERATION (test code = 2821) 1.260 UIU/ML 0.400-4.100 [id number] 00:00:00* Test Item Value Reference Range Interpretation Comme [facility] TSH, THIRD GENERATION (test code = 2821) 1.260 UIU/ML [id number] 00:00:00* Test Item Value Reference Range Interpretation Comme nts TSH, THIRD GENERATION (test code = 2821) 1.260 UIU/ML CBC W/AUTO [id number] 00:00:00* Test Item Value Reference Range Interpretation Comme nts WBC (test code = 1001) 6.3 K/UL RBC (test code = 1002) 4.10 M/UL HEMOGLOBIN (test code = 1003) 9.4 G/DL HEMATOCRIT (test code = 1004) 30.1 % MCV (test code = 1005) 73.4 fL MCH (test code = 1006) 22.9 PG MCHC (test code = 1007) 31.2 G/DL RDW (test code = 1038) 19.2 % NEUTROPHILS (test code = 1008) 68.5 % LYMPHOCYTES (test code = 1010) 21.1 % MONOCYTES (test code = 1011) 6.2 % EOSINOPHILS (test code = 1012) 2.4 % BASOPHILS (test code = 1013) 1.6 % IMMATURE GRANYLOCYTES (test code = 1036) 0.2 % NUCLEATED RBCS (test code = 1065) 0.0 /100WBC'S PLATELET COUNT (test code = 1015) 213 K/UL ABSOLUTE NEUTROPHILS (test c ode = 1066) 4.28 K/UL ABSOLUTE LYMPHOCYTES (test c ode = 1067) 1.32 K/UL ABSOLUTE MONOCYTES (test cod e = 1068) 0.39 K/UL ABSOLUTE EOSINOPHILS (test c ode = 1040) 0.15 K/UL ABSOLUTE BASOPHILS (test cod e = 1069) 0.10 K/UL ABS IMMATURE GRANULOCYTES (t est code = 1020) 0.01 K/UL ABS NUCLEATED RBCS (test cod e = 65178) 0.00 K/UL CBC W/AUTO [id number] 00:00:00* Test Item Value Reference Range Interpretation Comme nts WBC (test code = 1001) 6.3 K/UL RBC (test code = 1002) 4.10 M/UL HEMOGLOBIN (test code = 1003) 9.4 G/DL HEMATOCRIT (test code = 1004) 30.1 % MCV (test code = 1005) 73.4 fL MCH (test code = 1006) 22.9 PG MCHC (test code = 1007) 31.2 G/DL RDW (test code = 1038) 19.2 % NEUTROPHILS (test code = 1008) 68.5 % LYMPHOCYTES (test code = 1010) 21.1 % MONOCYTES (test code = 1011) 6.2 % EOSINOPHILS (test code = 1012) 2.4 % BASOPHILS (test code = 1013) 1.6 % IMMATURE GRANYLOCYTES (test code = 1036) 0.2 % NUCLEATED RBCS (test code = 1065) 0.0 /100WBC'S PLATELET COUNT (test code = 1015) 213 K/UL ABSOLUTE NEUTROPHILS (test c ode = 1066) 4.28 K/UL ABSOLUTE LYMPHOCYTES (test c ode = 1067) 1.32 K/UL ABSOLUTE MONOCYTES (test cod e = 1068) 0.39 K/UL ABSOLUTE EOSINOPHILS (test c ode = 1040) 0.15 K/UL ABSOLUTE BASOPHILS (test cod e = 1069) 0.10 K/UL ABS IMMATURE GRANULOCYTES (t est code = 1020) 0.01 K/UL ABS NUCLEATED RBCS (test cod e = 69686) 0.00 K/UL [id number] 00:00:00* Test Item Value Reference Range Interpretation Comme nts TSH, THIRD GENERATION (test code = 2821) 1.260 UIU/ML CBC W/AUTO [id number] 00:00:00* Test Item Value Reference Range Interpretation Comme nts WBC (test code = 1001) 6.3 K/UL RBC (test code = 1002) 4.10 M/UL HEMOGLOBIN (test code = 1003) 9.4 G/DL HEMATOCRIT (test code = 1004) 30.1 % MCV (test code = 1005) 73.4 fL MCH (test code = 1006) 22.9 PG MCHC (test code = 1007) 31.2 G/DL RDW (test code = 1038) 19.2 % NEUTROPHILS (test code = 1008) 68.5 % LYMPHOCYTES (test code = 1010) 21.1 % MONOCYTES (test code = 1011) 6.2 % EOSINOPHILS (test code = 1012) 2.4 % BASOPHILS (test code = 1013) 1.6 % IMMATURE GRANYLOCYTES (test code = 1036) 0.2 % NUCLEATED RBCS (test code = 1065) 0.0 /100WBC'S PLATELET COUNT (test code = 1015) 213 K/UL ABSOLUTE NEUTROPHILS (test c ode = 1066) 4.28 K/UL ABSOLUTE LYMPHOCYTES (test c ode = 1067) 1.32 K/UL ABSOLUTE MONOCYTES (test cod e = 1068) 0.39 K/UL ABSOLUTE EOSINOPHILS (test c ode = 1040) 0.15 K/UL ABSOLUTE BASOPHILS (test cod e = 1069) 0.10 K/UL ABS IMMATURE GRANULOCYTES (t est code = 1020) 0.01 K/UL ABS NUCLEATED RBCS (test cod e = 06415) 0.00 K/UL [id number] 00:00:00* Test Item Value Reference Range Interpretation Comme nts TSH, THIRD GENERATION (test code = 2821) 1.260 UIU/ML Jonatan EasonCBC W/AUTO [id number] 00:00:00* Test Item Value Reference Range Interpretation Comme nts WBC (test code = 1001) 6.3 K/UL RBC (test code = 1002) 4.10 M/UL HEMOGLOBIN (test code = 1003) 9.4 G/DL HEMATOCRIT (test code = 1004) 30.1 % MCV (test code = 1005) 73.4 fL MCH (test code = 1006) 22.9 PG MCHC (test code = 1007) 31.2 G/DL RDW (test code = 1038) 19.2 % NEUTROPHILS (test code = 1008) 68.5 % LYMPHOCYTES (test code = 1010) 21.1 % MONOCYTES (test code = 1011) 6.2 % EOSINOPHILS (test code = 1012) 2.4 % BASOPHILS (test code = 1013) 1.6 % IMMATURE GRANYLOCYTES (test code = 1036) 0.2 % NUCLEATED RBCS (test code = 1065) 0.0 /100WBC'S PLATELET COUNT (test code = 1015) 213 K/UL ABSOLUTE NEUTROPHILS (test c ode = 1066) 4.28 K/UL ABSOLUTE LYMPHOCYTES (test c ode = 1067) 1.32 K/UL ABSOLUTE MONOCYTES (test cod e = 1068) 0.39 K/UL ABSOLUTE EOSINOPHILS (test c ode = 1040) 0.15 K/UL ABSOLUTE BASOPHILS (test cod e = 1069) 0.10 K/UL ABS IMMATURE GRANULOCYTES (t est code = 1020) 0.01 K/UL ABS NUCLEATED RBCS (test cod e = 43207) 0.00 K/UL Jonatan [id number] 00:00:00* Test Item Value Reference Range Interpretation Comme nts TSH, THIRD GENERATION (test code = 2821) 1.260 UIU/ML Jonatan EasonCBC W/AUTO [id number] 00:00:00* Test Item Value Reference Range Interpretation Comme nts WBC (test code = 1001) 6.3 K/UL RBC (test code = 1002) 4.10 M/UL HEMOGLOBIN (test code = 1003) 9.4 G/DL HEMATOCRIT (test code = 1004) 30.1 % MCV (test code = 1005) 73.4 fL MCH (test code = 1006) 22.9 PG MCHC (test code = 1007) 31.2 G/DL RDW (test code = 1038) 19.2 % NEUTROPHILS (test code = 1008) 68.5 % LYMPHOCYTES (test code = 1010) 21.1 % MONOCYTES (test code = 1011) 6.2 % EOSINOPHILS (test code = 1012) 2.4 % BASOPHILS (test code = 1013) 1.6 % IMMATURE GRANYLOCYTES (test code = 1036) 0.2 % NUCLEATED RBCS (test code = 1065) 0.0 /100WBC'S PLATELET COUNT (test code = 1015) 213 K/UL ABSOLUTE NEUTROPHILS (test c ode = 1066) 4.28 K/UL ABSOLUTE LYMPHOCYTES (test c ode = 1067) 1.32 K/UL ABSOLUTE MONOCYTES (test cod e = 1068) 0.39 K/UL ABSOLUTE EOSINOPHILS (test c ode = 1040) 0.15 K/UL ABSOLUTE BASOPHILS (test cod e = 1069) 0.10 K/UL ABS IMMATURE GRANULOCYTES (t est code = 1020) 0.01 K/UL ABS NUCLEATED RBCS (test cod e = 30201) 0.00 K/UL Jonatan Barber [id number] 00:00:00* Test Item Value Reference Range Interpretation Comme nts TSH, THIRD GENERATION (test code = 2821) 1.260 UIU/ML Jonatan Barber [id number] 00:00:00* Test Item Value Reference Range Interpretation Comme nts TSH, THIRD GENERATION (test code = 2821) 1.260 UIU/ML CBC W/AUTO [id number] 00:00:00* Test Item Value Reference Range Interpretation Comme nts WBC (test code = 1001) 6.3 K/UL RBC (test code = 1002) 4.10 M/UL HEMOGLOBIN (test code = 1003) 9.4 G/DL HEMATOCRIT (test code = 1004) 30.1 % MCV (test code = 1005) 73.4 fL MCH (test code = 1006) 22.9 PG MCHC (test code = 1007) 31.2 G/DL RDW (test code = 1038) 19.2 % NEUTROPHILS (test code = 1008) 68.5 % LYMPHOCYTES (test code = 1010) 21.1 % MONOCYTES (test code = 1011) 6.2 % EOSINOPHILS (test code = 1012) 2.4 % BASOPHILS (test code = 1013) 1.6 % IMMATURE GRANYLOCYTES (test code = 1036) 0.2 % NUCLEATED RBCS (test code = 1065) 0.0 /100WBC'S PLATELET COUNT (test code = 1015) 213 K/UL ABSOLUTE NEUTROPHILS (test c ode = 1066) 4.28 K/UL ABSOLUTE LYMPHOCYTES (test c ode = 1067) 1.32 K/UL ABSOLUTE MONOCYTES (test cod e = 1068) 0.39 K/UL ABSOLUTE EOSINOPHILS (test c ode = 1040) 0.15 K/UL ABSOLUTE BASOPHILS (test cod e = 1069) 0.10 K/UL ABS IMMATURE GRANULOCYTES (t est code = 1020) 0.01 K/UL ABS NUCLEATED RBCS (test cod e = 92519) 0.00 K/UL [id number] 00:00:00* Test Item Value Reference Range Interpretation Comme nts TSH, THIRD GENERATION (test code = 2821) 1.260 UIU/ML CBC W/AUTO [id number] 00:00:00* Test Item Value Reference Range Interpretation Comme nts WBC (test code = 1001) 6.3 K/UL RBC (test code = 1002) 4.10 M/UL HEMOGLOBIN (test code = 1003) 9.4 G/DL HEMATOCRIT (test code = 1004) 30.1 % MCV (test code = 1005) 73.4 fL MCH (test code = 1006) 22.9 PG MCHC (test code = 1007) 31.2 G/DL RDW (test code = 1038) 19.2 % NEUTROPHILS (test code = 1008) 68.5 % LYMPHOCYTES (test code = 1010) 21.1 % MONOCYTES (test code = 1011) 6.2 % EOSINOPHILS (test code = 1012) 2.4 % BASOPHILS (test code = 1013) 1.6 % IMMATURE GRANYLOCYTES (test code = 1036) 0.2 % NUCLEATED RBCS (test code = 1065) 0.0 /100WBC'S PLATELET COUNT (test code = 1015) 213 K/UL ABSOLUTE NEUTROPHILS (test c ode = 1066) 4.28 K/UL ABSOLUTE LYMPHOCYTES (test c ode = 1067) 1.32 K/UL ABSOLUTE MONOCYTES (test cod e = 1068) 0.39 K/UL ABSOLUTE EOSINOPHILS (test c ode = 1040) 0.15 K/UL ABSOLUTE BASOPHILS (test cod e = 1069) 0.10 K/UL ABS IMMATURE GRANULOCYTES (t est code = 1020) 0.01 K/UL ABS NUCLEATED RBCS (test cod e = 24537) 0.00 K/UL [id number] 00:00:00* Test Item Value Reference Range Interpretation Comme nts TSH, THIRD GENERATION (test code = 2821) 1.260 UIU/ML CBC W/AUTO [id number] 00:00:00* Test Item Value Reference Range Interpretation Comme nts WBC (test code = 1001) 6.3 K/UL RBC (test code = 1002) 4.10 M/UL HEMOGLOBIN (test code = 1003) 9.4 G/DL HEMATOCRIT (test code = 1004) 30.1 % MCV (test code = 1005) 73.4 fL MCH (test code = 1006) 22.9 PG MCHC (test code = 1007) 31.2 G/DL RDW (test code = 1038) 19.2 % NEUTROPHILS (test code = 1008) 68.5 % LYMPHOCYTES (test code = 1010) 21.1 % MONOCYTES (test code = 1011) 6.2 % EOSINOPHILS (test code = 1012) 2.4 % BASOPHILS (test code = 1013) 1.6 % IMMATURE GRANYLOCYTES (test code = 1036) 0.2 % NUCLEATED RBCS (test code = 1065) 0.0 /100WBC'S PLATELET COUNT (test code = 1015) 213 K/UL ABSOLUTE NEUTROPHILS (test c ode = 1066) 4.28 K/UL ABSOLUTE LYMPHOCYTES (test c ode = 1067) 1.32 K/UL ABSOLUTE MONOCYTES (test cod e = 1068) 0.39 K/UL ABSOLUTE EOSINOPHILS (test c ode = 1040) 0.15 K/UL ABSOLUTE BASOPHILS (test cod e = 1069) 0.10 K/UL ABS IMMATURE GRANULOCYTES (t est code = 1020) 0.01 K/UL ABS NUCLEATED RBCS (test cod e = 92759) 0.00 K/UL CBC W/AUTO [id number] 00:00:00* Test Item Value Reference Range Interpretation Comme nts WBC (test code = 1001) 6.3 K/UL RBC (test code = 1002) 4.10 M/UL HEMOGLOBIN (test code = 1003) 9.4 G/DL HEMATOCRIT (test code = 1004) 30.1 % MCV (test code = 1005) 73.4 fL MCH (test code = 1006) 22.9 PG MCHC (test code = 1007) 31.2 G/DL RDW (test code = 1038) 19.2 % NEUTROPHILS (test code = 1008) 68.5 % LYMPHOCYTES (test code = 1010) 21.1 % MONOCYTES (test code = 1011) 6.2 % EOSINOPHILS (test code = 1012) 2.4 % BASOPHILS (test code = 1013) 1.6 % IMMATURE GRANYLOCYTES (test code = 1036) 0.2 % NUCLEATED RBCS (test code = 1065) 0.0 /100WBC'S PLATELET COUNT (test code = 1015) 213 K/UL ABSOLUTE NEUTROPHILS (test c ode = 1066) 4.28 K/UL ABSOLUTE LYMPHOCYTES (test c ode = 1067) 1.32 K/UL ABSOLUTE MONOCYTES (test cod e = 1068) 0.39 K/UL ABSOLUTE EOSINOPHILS (test c ode = 1040) 0.15 K/UL ABSOLUTE BASOPHILS (test cod e = 1069) 0.10 K/UL ABS IMMATURE GRANULOCYTES (t est code = 1020) 0.01 K/UL ABS NUCLEATED RBCS (test cod e = 30164) 0.00 K/UL Jonatan [id number] 00:00:00* Test Item Value Reference Range Interpretation Comme nts TSH, THIRD GENERATION (test code = 2821) 1.260 UIU/ML CBC W/AUTO [id number] 00:00:00* Test Item Value Reference Range Interpretation Comme nts WBC (test code = 1001) 6.3 K/UL RBC (test code = 1002) 4.10 M/UL HEMOGLOBIN (test code = 1003) 9.4 G/DL HEMATOCRIT (test code = 1004) 30.1 % MCV (test code = 1005) 73.4 fL MCH (test code = 1006) 22.9 PG MCHC (test code = 1007) 31.2 G/DL RDW (test code = 1038) 19.2 % NEUTROPHILS (test code = 1008) 68.5 % LYMPHOCYTES (test code = 1010) 21.1 % MONOCYTES (test code = 1011) 6.2 % EOSINOPHILS (test code = 1012) 2.4 % BASOPHILS (test code = 1013) 1.6 % IMMATURE GRANYLOCYTES (test code = 1036) 0.2 % NUCLEATED RBCS (test code = 1065) 0.0 /100WBC'S PLATELET COUNT (test code = 1015) 213 K/UL ABSOLUTE NEUTROPHILS (test c ode = 1066) 4.28 K/UL ABSOLUTE LYMPHOCYTES (test c ode = 1067) 1.32 K/UL ABSOLUTE MONOCYTES (test cod e = 1068) 0.39 K/UL ABSOLUTE EOSINOPHILS (test c ode = 1040) 0.15 K/UL ABSOLUTE BASOPHILS (test cod e = 1069) 0.10 K/UL ABS IMMATURE GRANULOCYTES (t est code = 1020) 0.01 K/UL ABS NUCLEATED RBCS (test cod e = 78959) 0.00 K/UL CBC W/AUTO [id number] 00:00:00* Test Item Value Reference Range Interpretation Comme nts WBC (test code = 1001) 6.4 K/UL RBC (test code = 1002) 2.98 M/UL HEMOGLOBIN (test code = 1003) 7.3 G/DL HEMATOCRIT (test code = 1004) 24.0 % MCV (test code = 1005) 80.5 fL MCH (test code = 1006) 24.5 PG MCHC (test code = 1007) 30.4 G/DL RDW (test code = 1038) 19.3 % NEUTROPHILS (test code = 1008) 62.5 % LYMPHOCYTES (test code = 1010) 24.1 % MONOCYTES (test code = 1011) 8.8 % EOSINOPHILS (test code = 1012) 3.5 % BASOPHILS (test code = 1013) 0.9 % IMMATURE GRANULOCYTES (test code = 1036) 0.2 % NUCLEATED RBCS (test code = 1065) 0.0 /100WBC'S PLATELET COUNT (test code = 1015) 169 K/UL ABSOLUTE NEUTROPHILS (test c ode = 1066) 3.98 K/UL ABSOLUTE LYMPHOCYTES (test c ode = 1067) 1.53 K/UL ABSOLUTE MONOCYTES (test cod e = 1068) 0.56 K/UL ABSOLUTE EOSINOPHILS (test c ode = 1040) 0.22 K/UL ABSOLUTE BASOPHILS (test cod e = 1069) 0.06 K/UL ABS IMMATURE GRANULOCYTES (t est code = 1020) 0.01 K/UL ABS NUCLEATED RBCS (test cod e = 50534) 0.00 K/UL COMMENTS (test code = 1016) (NOTE) CBC W/AUTO [id number] 00:00:00* Test Item Value Reference Range Interpretation Comme nts WBC (test code = 1001) 6.4 K/UL RBC (test code = 1002) 2.98 M/UL HEMOGLOBIN (test code = 1003) 7.3 G/DL HEMATOCRIT (test code = 1004) 24.0 % MCV (test code = 1005) 80.5 fL MCH (test code = 1006) 24.5 PG MCHC (test code = 1007) 30.4 G/DL RDW (test code = 1038) 19.3 % NEUTROPHILS (test code = 1008) 62.5 % LYMPHOCYTES (test code = 1010) 24.1 % MONOCYTES (test code = 1011) 8.8 % EOSINOPHILS (test code = 1012) 3.5 % BASOPHILS (test code = 1013) 0.9 % IMMATURE GRANULOCYTES (test code = 1036) 0.2 % NUCLEATED RBCS (test code = 1065) 0.0 /100WBC'S PLATELET COUNT (test code = 1015) 169 K/UL ABSOLUTE NEUTROPHILS (test c ode = 1066) 3.98 K/UL ABSOLUTE LYMPHOCYTES (test c ode = 1067) 1.53 K/UL ABSOLUTE MONOCYTES (test cod e = 1068) 0.56 K/UL ABSOLUTE EOSINOPHILS (test c ode = 1040) 0.22 K/UL ABSOLUTE BASOPHILS (test cod e = 1069) 0.06 K/UL ABS IMMATURE GRANULOCYTES (t est code = 1020) 0.01 K/UL ABS NUCLEATED RBCS (test cod e = 12593) 0.00 K/UL COMMENTS (test code = 1016) (NOTE) HIV AB/AG COMBO RFLX [id number] 00:00:00* Test Item Value Reference Range Interpretation Comme nts HIV 1/2 4TH GEN, RFLX CONF ( test code = 3514) NON-REACTIVE HIV AB/AG COMBO RFLX [id number] 00:00:00* Test Item Value Reference Range Interpretation Comme nts HIV 1/2 4TH GEN, RFLX CONF ( test code = 3514) NON-REACTIVE CBC W/AUTO [id number] 00:00:00* Test Item Value Reference Range Interpretation Comme nts WBC (test code = 1001) 6.4 K/UL RBC (test code = 1002) 2.98 M/UL HEMOGLOBIN (test code = 1003) 7.3 G/DL HEMATOCRIT (test code = 1004) 24.0 % MCV (test code = 1005) 80.5 fL MCH (test code = 1006) 24.5 PG MCHC (test code = 1007) 30.4 G/DL RDW (test code = 1038) 19.3 % NEUTROPHILS (test code = 1008) 62.5 % LYMPHOCYTES (test code = 1010) 24.1 % MONOCYTES (test code = 1011) 8.8 % EOSINOPHILS (test code = 1012) 3.5 % BASOPHILS (test code = 1013) 0.9 % IMMATURE GRANULOCYTES (test code = 1036) 0.2 % NUCLEATED RBCS (test code = 1065) 0.0 /100WBC'S PLATELET COUNT (test code = 1015) 169 K/UL ABSOLUTE NEUTROPHILS (test c ode = 1066) 3.98 K/UL ABSOLUTE LYMPHOCYTES (test c ode = 1067) 1.53 K/UL ABSOLUTE MONOCYTES (test cod e = 1068) 0.56 K/UL ABSOLUTE EOSINOPHILS (test c ode = 1040) 0.22 K/UL ABSOLUTE BASOPHILS (test cod e = 1069) 0.06 K/UL ABS IMMATURE GRANULOCYTES (t est code = 1020) 0.01 K/UL ABS NUCLEATED RBCS (test cod e = 33165) 0.00 K/UL COMMENTS (test code = 1016) (NOTE) HIV AB/AG COMBO RFLX [id number] 00:00:00* Test Item Value Reference Range Interpretation Comme nts HIV 1/2 4TH GEN, RFLX CONF ( test code = 3514) NON-REACTIVE CBC W/AUTO [id number] 00:00:00* Test Item Value Reference Range Interpretation Comme nts WBC (test code = 1001) 6.4 K/UL RBC (test code = 1002) 2.98 M/UL HEMOGLOBIN (test code = 1003) 7.3 G/DL HEMATOCRIT (test code = 1004) 24.0 % MCV (test code = 1005) 80.5 fL MCH (test code = 1006) 24.5 PG MCHC (test code = 1007) 30.4 G/DL RDW (test code = 1038) 19.3 % NEUTROPHILS (test code = 1008) 62.5 % LYMPHOCYTES (test code = 1010) 24.1 % MONOCYTES (test code = 1011) 8.8 % EOSINOPHILS (test code = 1012) 3.5 % BASOPHILS (test code = 1013) 0.9 % IMMATURE GRANULOCYTES (test code = 1036) 0.2 % NUCLEATED RBCS (test code = 1065) 0.0 /100WBC'S PLATELET COUNT (test code = 1015) 169 K/UL ABSOLUTE NEUTROPHILS (test c ode = 1066) 3.98 K/UL ABSOLUTE LYMPHOCYTES (test c ode = 1067) 1.53 K/UL ABSOLUTE MONOCYTES (test cod e = 1068) 0.56 K/UL ABSOLUTE EOSINOPHILS (test c ode = 1040) 0.22 K/UL ABSOLUTE BASOPHILS (test cod e = 1069) 0.06 K/UL ABS IMMATURE GRANULOCYTES (t est code = 1020) 0.01 K/UL ABS NUCLEATED RBCS (test cod e = 02621) 0.00 K/UL COMMENTS (test code = 1016) (NOTE) Jonatan EasonHIV AB/AG COMBO RFLX [id number] 00:00:00* Test Item Value Reference Range Interpretation Comme nts HIV 1/2 4TH GEN, RFLX CONF ( test code = 3514) NON-REACTIVE Jonatan EasonCBC W/AUTO [id number] 00:00:00* Test Item Value Reference Range Interpretation Comme nts WBC (test code = 1001) 6.4 K/UL RBC (test code = 1002) 2.98 M/UL HEMOGLOBIN (test code = 1003) 7.3 G/DL HEMATOCRIT (test code = 1004) 24.0 % MCV (test code = 1005) 80.5 fL MCH (test code = 1006) 24.5 PG MCHC (test code = 1007) 30.4 G/DL RDW (test code = 1038) 19.3 % NEUTROPHILS (test code = 1008) 62.5 % LYMPHOCYTES (test code = 1010) 24.1 % MONOCYTES (test code = 1011) 8.8 % EOSINOPHILS (test code = 1012) 3.5 % BASOPHILS (test code = 1013) 0.9 % IMMATURE GRANULOCYTES (test code = 1036) 0.2 % NUCLEATED RBCS (test code = 1065) 0.0 /100WBC'S PLATELET COUNT (test code = 1015) 169 K/UL ABSOLUTE NEUTROPHILS (test c ode = 1066) 3.98 K/UL ABSOLUTE LYMPHOCYTES (test c ode = 1067) 1.53 K/UL ABSOLUTE MONOCYTES (test cod e = 1068) 0.56 K/UL ABSOLUTE EOSINOPHILS (test c ode = 1040) 0.22 K/UL ABSOLUTE BASOPHILS (test cod e = 1069) 0.06 K/UL ABS IMMATURE GRANULOCYTES (t est code = 1020) 0.01 K/UL ABS NUCLEATED RBCS (test cod e = 87554) 0.00 K/UL COMMENTS (test code = 1016) (NOTE) Jonatan Barber JenaroHIV AB/AG COMBO RFLX [id number] 00:00:00* Test Item Value Reference Range Interpretation Comme nts HIV 1/2 4TH GEN, RFLX CONF ( test code = 3514) NON-REACTIVE Jonatan Barber JenaroCBC W/AUTO [id number] 00:00:00* Test Item Value Reference Range Interpretation Comme nts WBC (test code = 1001) 6.4 K/UL RBC (test code = 1002) 2.98 M/UL HEMOGLOBIN (test code = 1003) 7.3 G/DL HEMATOCRIT (test code = 1004) 24.0 % MCV (test code = 1005) 80.5 fL MCH (test code = 1006) 24.5 PG MCHC (test code = 1007) 30.4 G/DL RDW (test code = 1038) 19.3 % NEUTROPHILS (test code = 1008) 62.5 % LYMPHOCYTES (test code = 1010) 24.1 % MONOCYTES (test code = 1011) 8.8 % EOSINOPHILS (test code = 1012) 3.5 % BASOPHILS (test code = 1013) 0.9 % IMMATURE GRANULOCYTES (test code = 1036) 0.2 % NUCLEATED RBCS (test code = 1065) 0.0 /100WBC'S PLATELET COUNT (test code = 1015) 169 K/UL ABSOLUTE NEUTROPHILS (test c ode = 1066) 3.98 K/UL ABSOLUTE LYMPHOCYTES (test c ode = 1067) 1.53 K/UL ABSOLUTE MONOCYTES (test cod e = 1068) 0.56 K/UL ABSOLUTE EOSINOPHILS (test c ode = 1040) 0.22 K/UL ABSOLUTE BASOPHILS (test cod e = 1069) 0.06 K/UL ABS IMMATURE GRANULOCYTES (t est code = 1020) 0.01 K/UL ABS NUCLEATED RBCS (test cod e = [id number]) 0.00 K/UL COMMENTS (test code = 1016) (NOTE) HIV AB/AG COMBO RFLX [id number] 00:00:00* Test Item Value Reference Range Interpretation Comme nts HIV 1/2 4TH GEN, RFLX CONF ( test code = 3514) NON-REACTIVE CBC W/AUTO [id number] 00:00:00* Test Item Value Reference Range Interpretation Comme nts WBC (test code = 1001) 6.4 K/UL RBC (test code = 1002) 2.98 M/UL HEMOGLOBIN (test code = 1003) 7.3 G/DL HEMATOCRIT (test code = 1004) 24.0 % MCV (test code = 1005) 80.5 fL MCH (test code = 1006) 24.5 PG MCHC (test code = 1007) 30.4 G/DL RDW (test code = 1038) 19.3 % NEUTROPHILS (test code = 1008) 62.5 % LYMPHOCYTES (test code = 1010) 24.1 % MONOCYTES (test code = 1011) 8.8 % EOSINOPHILS (test code = 1012) 3.5 % BASOPHILS (test code = 1013) 0.9 % IMMATURE GRANULOCYTES (test code = 1036) 0.2 % NUCLEATED RBCS (test code = 1065) 0.0 /100WBC'S PLATELET COUNT (test code = 1015) 169 K/UL ABSOLUTE NEUTROPHILS (test c ode = 1066) 3.98 K/UL ABSOLUTE LYMPHOCYTES (test c ode = 1067) 1.53 K/UL ABSOLUTE MONOCYTES (test cod e = 1068) 0.56 K/UL ABSOLUTE EOSINOPHILS (test c ode = 1040) 0.22 K/UL ABSOLUTE BASOPHILS (test cod e = 1069) 0.06 K/UL ABS IMMATURE GRANULOCYTES (t est code = 1020) 0.01 K/UL ABS NUCLEATED RBCS (test cod e = 60541) 0.00 K/UL COMMENTS (test code = 1016) (NOTE) CBC W/AUTO [id number] 00:00:00* Test Item Value Reference Range Interpretation Comme nts WBC (test code = 1001) 6.4 K/UL RBC (test code = 1002) 2.98 M/UL HEMOGLOBIN (test code = 1003) 7.3 G/DL HEMATOCRIT (test code = 1004) 24.0 % MCV (test code = 1005) 80.5 fL MCH (test code = 1006) 24.5 PG MCHC (test code = 1007) 30.4 G/DL RDW (test code = 1038) 19.3 % NEUTROPHILS (test code = 1008) 62.5 % LYMPHOCYTES (test code = 1010) 24.1 % MONOCYTES (test code = 1011) 8.8 % EOSINOPHILS (test code = 1012) 3.5 % BASOPHILS (test code = 1013) 0.9 % IMMATURE GRANULOCYTES (test code = 1036) 0.2 % NUCLEATED RBCS (test code = 1065) 0.0 /100WBC'S PLATELET COUNT (test code = 1015) 169 K/UL ABSOLUTE NEUTROPHILS (test c ode = 1066) 3.98 K/UL ABSOLUTE LYMPHOCYTES (test c ode = 1067) 1.53 K/UL ABSOLUTE MONOCYTES (test cod e = 1068) 0.56 K/UL ABSOLUTE EOSINOPHILS (test c ode = 1040) 0.22 K/UL ABSOLUTE BASOPHILS (test cod e = 1069) 0.06 K/UL ABS IMMATURE GRANULOCYTES (t est code = 1020) 0.01 K/UL ABS NUCLEATED RBCS (test cod e = 16629) 0.00 K/UL COMMENTS (test code = 1016) (NOTE) Jonatan EasonHIV AB/AG COMBO RFLX [id number] 00:00:00* Test Item Value Reference Range Interpretation Comme nts HIV 1/2 4TH GEN, RFLX CONF ( test code = 3514) NON-REACTIVE CBC W/AUTO [id number] 00:00:00* Test Item Value Reference Range Interpretation Comme nts WBC (test code = 1001) 6.4 K/UL RBC (test code = 1002) 2.98 M/UL HEMOGLOBIN (test code = 1003) 7.3 G/DL HEMATOCRIT (test code = 1004) 24.0 % MCV (test code = 1005) 80.5 fL MCH (test code = 1006) 24.5 PG MCHC (test code = 1007) 30.4 G/DL RDW (test code = 1038) 19.3 % NEUTROPHILS (test code = 1008) 62.5 % LYMPHOCYTES (test code = 1010) 24.1 % MONOCYTES (test code = 1011) 8.8 % EOSINOPHILS (test code = 1012) 3.5 % BASOPHILS (test code = 1013) 0.9 % IMMATURE GRANULOCYTES (test code = 1036) 0.2 % NUCLEATED RBCS (test code = 1065) 0.0 /100WBC'S PLATELET COUNT (test code = 1015) 169 K/UL ABSOLUTE NEUTROPHILS (test c ode = 1066) 3.98 K/UL ABSOLUTE LYMPHOCYTES (test c ode = 1067) 1.53 K/UL ABSOLUTE MONOCYTES (test cod e = 1068) 0.56 K/UL ABSOLUTE EOSINOPHILS (test c ode = 1040) 0.22 K/UL ABSOLUTE BASOPHILS (test cod e = 1069) 0.06 K/UL ABS IMMATURE GRANULOCYTES (t est code = 1020) 0.01 K/UL ABS NUCLEATED RBCS (test cod e = 23904) 0.00 K/UL COMMENTS (test code = 1016) (NOTE) HIV AB/AG COMBO RFLX [id number] 00:00:00* Test Item Value Reference Range Interpretation Comme nts HIV 1/2 4TH GEN, RFLX CONF ( test code = 3514) NON-REACTIVE Jonatan EasonHIV AB/AG COMBO RFLX [id number] 00:00:00* Test Item Value Reference Range Interpretation Comme nts HIV 1/2 4TH GEN, RFLX CONF ( test code = 3514) NON-REACTIVE CBC W/AUTO [id number] 00:00:00* Test Item Value Reference Range Interpretation Comme nts WBC (test code = 1001) 6.4 K/UL RBC (test code = 1002) 2.98 M/UL HEMOGLOBIN (test code = 1003) 7.3 G/DL HEMATOCRIT (test code = 1004) 24.0 % MCV (test code = 1005) 80.5 fL MCH (test code = 1006) 24.5 PG MCHC (test code = 1007) 30.4 G/DL RDW (test code = 1038) 19.3 % NEUTROPHILS (test code = 1008) 62.5 % LYMPHOCYTES (test code = 1010) 24.1 % MONOCYTES (test code = 1011) 8.8 % EOSINOPHILS (test code = 1012) 3.5 % BASOPHILS (test code = 1013) 0.9 % IMMATURE GRANULOCYTES (test code = 1036) 0.2 % NUCLEATED RBCS (test code = 1065) 0.0 /100WBC'S PLATELET COUNT (test code = 1015) 169 K/UL ABSOLUTE NEUTROPHILS (test c ode = 1066) 3.98 K/UL ABSOLUTE LYMPHOCYTES (test c ode = 1067) 1.53 K/UL ABSOLUTE MONOCYTES (test cod e = 1068) 0.56 K/UL ABSOLUTE EOSINOPHILS (test c ode = 1040) 0.22 K/UL ABSOLUTE BASOPHILS (test cod e = 1069) 0.06 K/UL ABS IMMATURE GRANULOCYTES (t est code = 1020) 0.01 K/UL ABS NUCLEATED RBCS (test cod e = 54674) 0.00 K/UL COMMENTS (test code = 1016) (NOTE) HIV AB/AG COMBO RFLX [id number] 00:00:00* Test Item Value Reference Range Interpretation Comme nts HIV 1/2 4TH GEN, RFLX CONF ( test code = 3514) NON-REACTIVE [id number] 00:00:00* Test Item Value Reference Range Interpretation Comme nts TSH, THIRD GENERATION (test code = 2821) 0.115 UIU/ML [id number] 00:00:00* Test Item Value Reference Range Interpretation Comme nts NT-proBNP (test code = 22763) 245 PG/ML [id number] 00:00:00* Test Item Value Reference Range Interpretation Comme nts TSH, THIRD GENERATION (test code = 2821) 0.115 UIU/ML [id number] 00:00:00* Test Item Value Reference Range Interpretation Comme nts TSH, THIRD GENERATION (test code = 2821) 0.115 UIU/ML [id number] 00:00:00* Test Item Value Reference Range Interpretation Comme nts NT-proBNP (test code = 81021) 245 PG/ML [id number] 00:00:00* Test Item Value Reference Range Interpretation Comme nts NT-proBNP (test code = 30244) 245 PG/ML [id number] 00:00:00* Test Item Value Reference Range Interpretation Comme nts TSH, THIRD GENERATION (test code = 2821) 0.115 UIU/ML Jonatan F [id number] 00:00:00* Test Item Value Reference Range Interpretation Comme nts NT-proBNP (test code = 99639) 245 PG/ML Jonatan F [id number] 00:00:00* Test Item Value Reference Range Interpretation Comme nts TSH, THIRD GENERATION (test code = 2821) 0.115 UIU/ML Jonatan F [id number] 00:00:00* Test Item Value Reference Range Interpretation Comme nts NT-proBNP (test code = 53519) 245 PG/ML Jonatan F [id number] 00:00:00* Test Item Value Reference Range Interpretation Comme nts TSH, THIRD GENERATION (test code = 2821) 0.115 UIU/ML Jonatan F [id number] 00:00:00* Test Item Value Reference Range Interpretation Comme nts TSH, THIRD GENERATION (test code = 2821) 0.115 UIU/ML [id number] 00:00:00* Test Item Value Reference Range Interpretation Comme nts NT-proBNP (test code = 44129) 245 PG/ML [id number] 00:00:00* Test Item Value Reference Range Interpretation Comme nts TSH, THIRD GENERATION (test code = 2821) 0.115 UIU/ML [id number] 00:00:00* Test Item Value Reference Range Interpretation Comme nts NT-proBNP (test code = 39275) 245 PG/ML [id number] 00:00:00* Test Item Value Reference Range Interpretation Comme nts TSH, THIRD GENERATION (test code = 2821) 0.115 UIU/ML [id number] 00:00:00* Test Item Value Reference Range Interpretation Comme nts NT-proBNP (test code = 61322) 245 PG/ML Jonatan [id number] 00:00:00* Test Item Value Reference Range Interpretation Comme nts NT-proBNP (test code = 03482) 245 PG/ML [id number] 00:00:00* Test Item Value Reference Range Interpretation Comme nts TSH, THIRD GENERATION (test code = 2821) 0.115 UIU/ML [id number] 00:00:00* Test Item Value Reference Range Interpretation Comme nts NT-proBNP (test code = 13364) 245 PG/ML CBC W/AUTO [id number] 00:00:00* Test Item Value Reference Range Interpretation Comme nts WBC (test code = 1001) 5.7 K/UL RBC (test code = 1002) 3.59 M/UL HEMOGLOBIN (test code = 1003) 11.5 G/DL HEMATOCRIT (test code = 1004) 34.1 % MCV (test code = 1005) 95.0 fL MCH (test code = 1006) 32.0 PG MCHC (test code = 1007) 33.7 G/DL RDW (test code = 1038) 13.6 % NEUTROPHILS (test code = 1008) 63.2 % LYMPHOCYTES (test code = 1010) 24.3 % MONOCYTES (test code = 1011) 8.6 % EOSINOPHILS (test code = 1012) 2.4 % BASOPHILS (test code = 1013) 1.2 % IMMATURE GRANULOCYTES (test code = 1036) 0.3 % NUCLEATED RBCS (test code = 1065) 0.0 /100WBC'S PLATELET COUNT (test code = 1015) 127 K/UL ABSOLUTE NEUTROPHILS (test c ode = 1066) 3.62 K/UL ABSOLUTE LYMPHOCYTES (test c ode = 1067) 1.39 K/UL ABSOLUTE MONOCYTES (test cod e = 1068) 0.49 K/UL ABSOLUTE EOSINOPHILS (test c ode = 1040) 0.14 K/UL ABSOLUTE BASOPHILS (test cod e = 1069) 0.07 K/UL ABS IMMATURE GRANULOCYTES (t est code = 1020) 0.02 K/UL ABS NUCLEATED RBCS (test cod e = 80284) 0.00 K/UL CBC W/AUTO [id number] 00:00:00* Test Item Value Reference Range Interpretation Comme nts WBC (test code = 1001) 5.7 K/UL RBC (test code = 1002) 3.59 M/UL HEMOGLOBIN (test code = 1003) 11.5 G/DL HEMATOCRIT (test code = 1004) 34.1 % MCV (test code = 1005) 95.0 fL MCH (test code = 1006) 32.0 PG MCHC (test code = 1007) 33.7 G/DL RDW (test code = 1038) 13.6 % NEUTROPHILS (test code = 1008) 63.2 % LYMPHOCYTES (test code = 1010) 24.3 % MONOCYTES (test code = 1011) 8.6 % EOSINOPHILS (test code = 1012) 2.4 % BASOPHILS (test code = 1013) 1.2 % IMMATURE GRANULOCYTES (test code = 1036) 0.3 % NUCLEATED RBCS (test code = 1065) 0.0 /100WBC'S PLATELET COUNT (test code = 1015) 127 K/UL ABSOLUTE NEUTROPHILS (test c ode = 1066) 3.62 K/UL ABSOLUTE LYMPHOCYTES (test c ode = 1067) 1.39 K/UL ABSOLUTE MONOCYTES (test cod e = 1068) 0.49 K/UL ABSOLUTE EOSINOPHILS (test c ode = 1040) 0.14 K/UL ABSOLUTE BASOPHILS (test cod e = 1069) 0.07 K/UL ABS IMMATURE GRANULOCYTES (t est code = 1020) 0.02 K/UL ABS NUCLEATED RBCS (test cod e = 49089) 0.00 K/UL COMPREHENSIVE METABOLIC PANEL [ADDED]2020-12-21 00:00:00* Test Item Value Reference Range Interpretation Comme nts GLUCOSE (test code = 2217) 122 MG/DL BUN (test code = 2208) 17 MG/DL CREATININE (test code = 2214) 1.01 MG/DL eGFR AMER. (test cod e = 87661) 69 ML/MIN/1.73 eGFR NON- AMER. (test code = 96012) 60 ML/MIN/1.73 CALC BUN/CREAT (test code = 2235) 17 RATIO SODIUM (test code = 2231) 142 MEQ/L POTASSIUM (test code = 2228) 3.7 MEQ/L CHLORIDE (test code = 2215) 105 MEQ/L CARBON DIOXIDE (test code = 2206) 24 MEQ/L CALCIUM (test code = 2209) 9.2 MG/DL PROTEIN, TOTAL (test code = 2229) 6.5 G/DL ALBUMIN (test code = 2201) 4.2 G/DL CALC GLOBULIN (test code = 2240) 2.3 G/DL CALC A/G RATIO (test code = 2234) 1.8 RATIO BILIRUBIN, TOTAL (test code = 2207) 0.5 MG/DL ALKALINE PHOSPHATASE (test code = 2204) 114 U/L AST (test code = 2218) 35 U/L ALT (test code = 2219) 27 U/L Jonatan [id number] 00:00:00* Test Item Value Reference Range Interpretation Comme nts TSH, THIRD GENERATION (test code = 2821) 0.038 UIU/ML COMPREHENSIVE METABOLIC PANEL [ADDED]2020-12-21 00:00:00* Test Item Value Reference Range Interpretation Comme nts GLUCOSE (test code = 2217) 122 MG/DL BUN (test code = 2208) 17 MG/DL CREATININE (test code = 2214) 1.01 MG/DL eGFR AMER. (test cod e = 95613) 69 ML/MIN/1.73 eGFR NON- AMER. (test code = 47461) 60 ML/MIN/1.73 CALC BUN/CREAT (test code = 2235) 17 RATIO SODIUM (test code = 2231) 142 MEQ/L POTASSIUM (test code = 2228) 3.7 MEQ/L CHLORIDE (test code = 2215) 105 MEQ/L CARBON DIOXIDE (test code = 2206) 24 MEQ/L CALCIUM (test code = 2209) 9.2 MG/DL PROTEIN, TOTAL (test code = 2229) 6.5 G/DL ALBUMIN (test code = 2201) 4.2 G/DL CALC GLOBULIN (test code = 2240) 2.3 G/DL CALC A/G RATIO (test code = 2234) 1.8 RATIO BILIRUBIN, TOTAL (test code = 2207) 0.5 MG/DL ALKALINE PHOSPHATASE (test code = 2204) 114 U/L AST (test code = 2218) 35 U/L ALT (test code = 2219) 27 U/L CBC W/AUTO [id number] 00:00:00* Test Item Value Reference Range Interpretation Comme nts WBC (test code = 1001) 5.7 K/UL RBC (test code = 1002) 3.59 M/UL HEMOGLOBIN (test code = 1003) 11.5 G/DL HEMATOCRIT (test code = 1004) 34.1 % MCV (test code = 1005) 95.0 fL MCH (test code = 1006) 32.0 PG MCHC (test code = 1007) 33.7 G/DL RDW (test code = 1038) 13.6 % NEUTROPHILS (test code = 1008) 63.2 % LYMPHOCYTES (test code = 1010) 24.3 % MONOCYTES (test code = 1011) 8.6 % EOSINOPHILS (test code = 1012) 2.4 % BASOPHILS (test code = 1013) 1.2 % IMMATURE GRANULOCYTES (test code = 1036) 0.3 % NUCLEATED RBCS (test code = 1065) 0.0 /100WBC'S PLATELET COUNT (test code = 1015) 127 K/UL ABSOLUTE NEUTROPHILS (test c ode = 1066) 3.62 K/UL ABSOLUTE LYMPHOCYTES (test c ode = 1067) 1.39 K/UL ABSOLUTE MONOCYTES (test cod e = 1068) 0.49 K/UL ABSOLUTE EOSINOPHILS (test c ode = 1040) 0.14 K/UL ABSOLUTE BASOPHILS (test cod e = 1069) 0.07 K/UL ABS IMMATURE GRANULOCYTES (t est code = 1020) 0.02 K/UL ABS NUCLEATED RBCS (test cod e = 56709) 0.00 K/UL [id number] 00:00:00* Test Item Value Reference Range Interpretation Comme nts TSH, THIRD GENERATION (test code = 2821) 0.038 UIU/ML [id number] 00:00:00* Test Item Value Reference Range Interpretation Comme nts TSH, THIRD GENERATION (test code = 2821) 0.038 UIU/ML COMPREHENSIVE METABOLIC PANEL [ADDED]2020-12-21 00:00:00* Test Item Value Reference Range Interpretation Comme nts GLUCOSE (test code = 2217) 122 MG/DL BUN (test code = 2208) 17 MG/DL CREATININE (test code = 2214) 1.01 MG/DL eGFR AMER. (test cod e = 10514) 69 ML/MIN/1.73 eGFR NON- AMER. (test code = 29050) 60 ML/MIN/1.73 CALC BUN/CREAT (test code = 2235) 17 RATIO SODIUM (test code = 2231) 142 MEQ/L POTASSIUM (test code = 2228) 3.7 MEQ/L CHLORIDE (test code = 2215) 105 MEQ/L CARBON DIOXIDE (test code = 2206) 24 MEQ/L CALCIUM (test code = 2209) 9.2 MG/DL PROTEIN, TOTAL (test code = 2229) 6.5 G/DL ALBUMIN (test code = 2201) 4.2 G/DL CALC GLOBULIN (test code = 2240) 2.3 G/DL CALC A/G RATIO (test code = 2234) 1.8 RATIO BILIRUBIN, TOTAL (test code = 2207) 0.5 MG/DL ALKALINE PHOSPHATASE (test code = 2204) 114 U/L AST (test code = 2218) 35 U/L ALT (test code = 2219) 27 U/L CBC W/AUTO [id number] 00:00:00* Test Item Value Reference Range Interpretation Comme nts WBC (test code = 1001) 5.7 K/UL RBC (test code = 1002) 3.59 M/UL HEMOGLOBIN (test code = 1003) 11.5 G/DL HEMATOCRIT (test code = 1004) 34.1 % MCV (test code = 1005) 95.0 fL MCH (test code = 1006) 32.0 PG MCHC (test code = 1007) 33.7 G/DL RDW (test code = 1038) 13.6 % NEUTROPHILS (test code = 1008) 63.2 % LYMPHOCYTES (test code = 1010) 24.3 % MONOCYTES (test code = 1011) 8.6 % EOSINOPHILS (test code = 1012) 2.4 % BASOPHILS (test code = 1013) 1.2 % IMMATURE GRANULOCYTES (test code = 1036) 0.3 % NUCLEATED RBCS (test code = 1065) 0.0 /100WBC'S PLATELET COUNT (test code = 1015) 127 K/UL ABSOLUTE NEUTROPHILS (test c ode = 1066) 3.62 K/UL ABSOLUTE LYMPHOCYTES (test c ode = 1067) 1.39 K/UL ABSOLUTE MONOCYTES (test cod e = 1068) 0.49 K/UL ABSOLUTE EOSINOPHILS (test c ode = 1040) 0.14 K/UL ABSOLUTE BASOPHILS (test cod e = 1069) 0.07 K/UL ABS IMMATURE GRANULOCYTES (t est code = 1020) 0.02 K/UL ABS NUCLEATED RBCS (test cod e = 04960) 0.00 K/UL Jonatan [id number] 00:00:00* Test Item Value Reference Range Interpretation Comme nts TSH, THIRD GENERATION (test code = 2821) 0.038 UIU/ML Jonatan Barber JenaroCOMPREHENSIVE METABOLIC PANEL [ADDED]2020-12-21 00:00:00* Test Item Value Reference Range Interpretation Comme nts GLUCOSE (test code = 2217) 122 MG/DL BUN (test code = 2208) 17 MG/DL CREATININE (test code = 2214) 1.01 MG/DL eGFR AMER. (test cod e = 44797) 69 ML/MIN/1.73 eGFR NON- AMER. (test code = 86972) 60 ML/MIN/1.73 CALC BUN/CREAT (test code = 2235) 17 RATIO SODIUM (test code = 2231) 142 MEQ/L POTASSIUM (test code = 2228) 3.7 MEQ/L CHLORIDE (test code = 2215) 105 MEQ/L CARBON DIOXIDE (test code = 2206) 24 MEQ/L CALCIUM (test code = 2209) 9.2 MG/DL PROTEIN, TOTAL (test code = 2229) 6.5 G/DL ALBUMIN (test code = 2201) 4.2 G/DL CALC GLOBULIN (test code = 2240) 2.3 G/DL CALC A/G RATIO (test code = 2234) 1.8 RATIO BILIRUBIN, TOTAL (test code = 2207) 0.5 MG/DL ALKALINE PHOSPHATASE (test code = 2204) 114 U/L AST (test code = 2218) 35 U/L ALT (test code = 2219) 27 U/L Jonatan Barber JenaroCBC W/AUTO [id number] 00:00:00* Test Item Value Reference Range Interpretation Comme nts WBC (test code = 1001) 5.7 K/UL RBC (test code = 1002) 3.59 M/UL HEMOGLOBIN (test code = 1003) 11.5 G/DL HEMATOCRIT (test code = 1004) 34.1 % MCV (test code = 1005) 95.0 fL MCH (test code = 1006) 32.0 PG MCHC (test code = 1007) 33.7 G/DL RDW (test code = 1038) 13.6 % NEUTROPHILS (test code = 1008) 63.2 % LYMPHOCYTES (test code = 1010) 24.3 % MONOCYTES (test code = 1011) 8.6 % EOSINOPHILS (test code = 1012) 2.4 % BASOPHILS (test code = 1013) 1.2 % IMMATURE GRANULOCYTES (test code = 1036) 0.3 % NUCLEATED RBCS (test code = 1065) 0.0 /100WBC'S PLATELET COUNT (test code = 1015) 127 K/UL ABSOLUTE NEUTROPHILS (test c ode = 1066) 3.62 K/UL ABSOLUTE LYMPHOCYTES (test c ode = 1067) 1.39 K/UL ABSOLUTE MONOCYTES (test cod e = 1068) 0.49 K/UL ABSOLUTE EOSINOPHILS (test c ode = 1040) 0.14 K/UL ABSOLUTE BASOPHILS (test cod e = 1069) 0.07 K/UL ABS IMMATURE GRANULOCYTES (t est code = 1020) 0.02 K/UL ABS NUCLEATED RBCS (test cod e = 54243) 0.00 K/UL Jonatan [id number] 00:00:00* Test Item Value Reference Range Interpretation Comme nts TSH, THIRD GENERATION (test code = 2821) 0.038 UIU/ML Jonatan EasonCOMPREHENSIVE METABOLIC PANEL [ADDED]2020-12-21 00:00:00* Test Item Value Reference Range Interpretation Comme nts GLUCOSE (test code = 2217) 122 MG/DL BUN (test code = 2208) 17 MG/DL CREATININE (test code = 2214) 1.01 MG/DL eGFR AMER. (test cod e = 52640) 69 ML/MIN/1.73 eGFR NON- AMER. (test code = 16959) 60 ML/MIN/1.73 CALC BUN/CREAT (test code = 2235) 17 RATIO SODIUM (test code = 2231) 142 MEQ/L POTASSIUM (test code = 2228) 3.7 MEQ/L CHLORIDE (test code = 2215) 105 MEQ/L CARBON DIOXIDE (test code = 2206) 24 MEQ/L CALCIUM (test code = 2209) 9.2 MG/DL PROTEIN, TOTAL (test code = 2229) 6.5 G/DL ALBUMIN (test code = 2201) 4.2 G/DL CALC GLOBULIN (test code = 2240) 2.3 G/DL CALC A/G RATIO (test code = 2234) 1.8 RATIO BILIRUBIN, TOTAL (test code = 2207) 0.5 MG/DL ALKALINE PHOSPHATASE (test code = 2204) 114 U/L AST (test code = 2218) 35 U/L ALT (test code = 2219) 27 U/L [facility] [id number] 00:00:00* Test Item Value Reference Range Interpretation Comme nts WBC (test code = 1001) 5.7 K/UL RBC (test code = 1002) 3.59 M/UL HEMOGLOBIN (test code = 1003) 11.5 G/DL HEMATOCRIT (test code = 1004) 34.1 % MCV (test code = 1005) 95.0 fL MCH (test code = 1006) 32.0 PG MCHC (test code = 1007) 33.7 G/DL RDW (test code = 1038) 13.6 % NEUTROPHILS (test code = 1008) 63.2 % LYMPHOCYTES (test code = 1010) 24.3 % MONOCYTES (test code = 1011) 8.6 % EOSINOPHILS (test code = 1012) 2.4 % BASOPHILS (test code = 1013) 1.2 % IMMATURE GRANULOCYTES (test code = 1036) 0.3 % NUCLEATED RBCS (test code = 1065) 0.0 /100WBC'S PLATELET COUNT (test code = 1015) 127 K/UL ABSOLUTE NEUTROPHILS (test c ode = 1066) 3.62 K/UL ABSOLUTE LYMPHOCYTES (test c ode = 1067) 1.39 K/UL ABSOLUTE MONOCYTES (test cod e = 1068) 0.49 K/UL ABSOLUTE EOSINOPHILS (test c ode = 1040) 0.14 K/UL ABSOLUTE BASOPHILS (test cod e = 1069) 0.07 K/UL ABS IMMATURE GRANULOCYTES (t est code = 1020) 0.02 K/UL ABS NUCLEATED RBCS (test cod e = 00709) 0.00 K/UL Jonatan EasonCOMPREHENSIVE METABOLIC PANEL [ADDED]2020-12-21 00:00:00* Test Item Value Reference Range Interpretation Comme nts GLUCOSE (test code = 2217) 122 MG/DL BUN (test code = 2208) 17 MG/DL CREATININE (test code = 2214) 1.01 MG/DL eGFR AMER. (test cod e = 30461) 69 ML/MIN/1.73 eGFR NON- AMER. (test code = 13815) 60 ML/MIN/1.73 CALC BUN/CREAT (test code = 2235) 17 RATIO SODIUM (test code = 2231) 142 MEQ/L POTASSIUM (test code = 2228) 3.7 MEQ/L CHLORIDE (test code = 2215) 105 MEQ/L CARBON DIOXIDE (test code = 2206) 24 MEQ/L CALCIUM (test code = 2209) 9.2 MG/DL PROTEIN, TOTAL (test code = 2229) 6.5 G/DL ALBUMIN (test code = 2201) 4.2 G/DL CALC GLOBULIN (test code = 2240) 2.3 G/DL CALC A/G RATIO (test code = 2234) 1.8 RATIO BILIRUBIN, TOTAL (test code = 2207) 0.5 MG/DL ALKALINE PHOSPHATASE (test code = 2204) 114 U/L AST (test code = 2218) 35 U/L ALT (test code = 2219) 27 U/L CBC W/AUTO [id number] 00:00:00* Test Item Value Reference Range Interpretation Comme nts WBC (test code = 1001) 5.7 K/UL RBC (test code = 1002) 3.59 M/UL HEMOGLOBIN (test code = 1003) 11.5 G/DL HEMATOCRIT (test code = 1004) 34.1 % MCV (test code = 1005) 95.0 fL MCH (test code = 1006) 32.0 PG MCHC (test code = 1007) 33.7 G/DL RDW (test code = 1038) 13.6 % NEUTROPHILS (test code = 1008) 63.2 % LYMPHOCYTES (test code = 1010) 24.3 % MONOCYTES (test code = 1011) 8.6 % EOSINOPHILS (test code = 1012) 2.4 % BASOPHILS (test code = 1013) 1.2 % IMMATURE GRANULOCYTES (test code = 1036) 0.3 % NUCLEATED RBCS (test code = 1065) 0.0 /100WBC'S PLATELET COUNT (test code = 1015) 127 K/UL ABSOLUTE NEUTROPHILS (test c ode = 1066) 3.62 K/UL ABSOLUTE LYMPHOCYTES (test c ode = 1067) 1.39 K/UL ABSOLUTE MONOCYTES (test cod e = 1068) 0.49 K/UL ABSOLUTE EOSINOPHILS (test c ode = 1040) 0.14 K/UL ABSOLUTE BASOPHILS (test cod e = 1069) 0.07 K/UL ABS IMMATURE GRANULOCYTES (t est code = 1020) 0.02 K/UL ABS NUCLEATED RBCS (test cod e = 82650) 0.00 K/UL [id number] 00:00:00* Test Item Value Reference Range Interpretation Comme nts TSH, THIRD GENERATION (test code = 2821) 0.038 UIU/ML COMPREHENSIVE METABOLIC PANEL [ADDED]2020-12-21 00:00:00* Test Item Value Reference Range Interpretation Comme nts GLUCOSE (test code = 2217) 122 MG/DL BUN (test code = 2208) 17 MG/DL CREATININE (test code = 2214) 1.01 MG/DL eGFR AMER. (test cod e = 05446) 69 ML/MIN/1.73 eGFR NON- AMER. (test code = 64974) 60 ML/MIN/1.73 CALC BUN/CREAT (test code = 2235) 17 RATIO SODIUM (test code = 2231) 142 MEQ/L POTASSIUM (test code = 2228) 3.7 MEQ/L CHLORIDE (test code = 2215) 105 MEQ/L CARBON DIOXIDE (test code = 2206) 24 MEQ/L CALCIUM (test code = 2209) 9.2 MG/DL PROTEIN, TOTAL (test code = 2229) 6.5 G/DL ALBUMIN (test code = 2201) 4.2 G/DL CALC GLOBULIN (test code = 2240) 2.3 G/DL CALC A/G RATIO (test code = 2234) 1.8 RATIO BILIRUBIN, TOTAL (test code = 2207) 0.5 MG/DL ALKALINE PHOSPHATASE (test code = 2204) 114 U/L AST (test code = 2218) 35 U/L ALT (test code = 2219) 27 U/L CBC W/AUTO [id number] 00:00:00* Test Item Value Reference Range Interpretation Comme nts WBC (test code = 1001) 5.7 K/UL RBC (test code = 1002) 3.59 M/UL HEMOGLOBIN (test code = 1003) 11.5 G/DL HEMATOCRIT (test code = 1004) 34.1 % MCV (test code = 1005) 95.0 fL MCH (test code = 1006) 32.0 PG MCHC (test code = 1007) 33.7 G/DL RDW (test code = 1038) 13.6 % NEUTROPHILS (test code = 1008) 63.2 % LYMPHOCYTES (test code = 1010) 24.3 % MONOCYTES (test code = 1011) 8.6 % EOSINOPHILS (test code = 1012) 2.4 % BASOPHILS (test code = 1013) 1.2 % IMMATURE GRANULOCYTES (test code = 1036) 0.3 % NUCLEATED RBCS (test code = 1065) 0.0 /100WBC'S PLATELET COUNT (test code = 1015) 127 K/UL ABSOLUTE NEUTROPHILS (test c ode = 1066) 3.62 K/UL ABSOLUTE LYMPHOCYTES (test c ode = 1067) 1.39 K/UL ABSOLUTE MONOCYTES (test cod e = 1068) 0.49 K/UL ABSOLUTE EOSINOPHILS (test c ode = 1040) 0.14 K/UL ABSOLUTE BASOPHILS (test cod e = 1069) 0.07 K/UL ABS IMMATURE GRANULOCYTES (t est code = 1020) 0.02 K/UL ABS NUCLEATED RBCS (test cod e = 32841) 0.00 K/UL [id number] 00:00:00* Test Item Value Reference Range Interpretation Comme nts TSH, THIRD GENERATION (test code = 2821) 0.038 UIU/ML COMPREHENSIVE METABOLIC PANEL [ADDED]2020-12-21 00:00:00* Test Item Value Reference Range Interpretation Comme nts GLUCOSE (test code = 2217) 122 MG/DL BUN (test code = 2208) 17 MG/DL CREATININE (test code = 2214) 1.01 MG/DL eGFR AMER. (test cod e = 32435) 69 ML/MIN/1.73 eGFR NON- AMER. (test code = 89421) 60 ML/MIN/1.73 CALC BUN/CREAT (test code = 2235) 17 RATIO SODIUM (test code = 2231) 142 MEQ/L POTASSIUM (test code = 2228) 3.7 MEQ/L CHLORIDE (test code = 2215) 105 MEQ/L CARBON DIOXIDE (test code = 2206) 24 MEQ/L CALCIUM (test code = 2209) 9.2 MG/DL PROTEIN, TOTAL (test code = 2229) 6.5 G/DL ALBUMIN (test code = 2201) 4.2 G/DL CALC GLOBULIN (test code = 2240) 2.3 G/DL CALC A/G RATIO (test code = 2234) 1.8 RATIO BILIRUBIN, TOTAL (test code = 2207) 0.5 MG/DL ALKALINE PHOSPHATASE (test code = 2204) 114 U/L AST (test code = 2218) 35 U/L ALT (test code = 2219) 27 U/L [id number] 00:00:00* Test Item Value Reference Range Interpretation Comme nts TSH, THIRD GENERATION (test code = 2821) 0.038 UIU/ML Jonatan Barber JenaroCBC W/AUTO [id number] 00:00:00* Test Item Value Reference Range Interpretation Comme nts WBC (test code = 1001) 5.7 K/UL RBC (test code = 1002) 3.59 M/UL HEMOGLOBIN (test code = 1003) 11.5 G/DL HEMATOCRIT (test code = 1004) 34.1 % MCV (test code = 1005) 95.0 fL MCH (test code = 1006) 32.0 PG MCHC (test code = 1007) 33.7 G/DL RDW (test code = 1038) 13.6 % NEUTROPHILS (test code = 1008) 63.2 % LYMPHOCYTES (test code = 1010) 24.3 % MONOCYTES (test code = 1011) 8.6 % EOSINOPHILS (test code = 1012) 2.4 % BASOPHILS (test code = 1013) 1.2 % IMMATURE GRANULOCYTES (test code = 1036) 0.3 % NUCLEATED RBCS (test code = 1065) 0.0 /100WBC'S PLATELET COUNT (test code = 1015) 127 K/UL ABSOLUTE NEUTROPHILS (test c ode = 1066) 3.62 K/UL ABSOLUTE LYMPHOCYTES (test c ode = 1067) 1.39 K/UL ABSOLUTE MONOCYTES (test cod e = 1068) 0.49 K/UL ABSOLUTE EOSINOPHILS (test c ode = 1040) 0.14 K/UL ABSOLUTE BASOPHILS (test cod e = 1069) 0.07 K/UL ABS IMMATURE GRANULOCYTES (t est code = 1020) 0.02 K/UL ABS NUCLEATED RBCS (test cod e = 77953) 0.00 K/UL [id number] 00:00:00* Test Item Value Reference Range Interpretation Comme nts TSH, THIRD GENERATION (test code = 2821) 0.038 UIU/ML COMPREHENSIVE METABOLIC PANEL [ADDED]2020-12-21 00:00:00* Test Item Value Reference Range Interpretation Comme nts GLUCOSE (test code = 2217) 122 MG/DL BUN (test code = 2208) 17 MG/DL CREATININE (test code = 2214) 1.01 MG/DL eGFR AMER. (test cod e = 99999) 69 ML/MIN/1.73 eGFR NON- AMER. (test code = 48192) 60 ML/MIN/1.73 CALC BUN/CREAT (test code = 2235) 17 RATIO SODIUM (test code = 2231) 142 MEQ/L POTASSIUM (test code = 2228) 3.7 MEQ/L CHLORIDE (test code = 2215) 105 MEQ/L CARBON DIOXIDE (test code = 2206) 24 MEQ/L CALCIUM (test code = 2209) 9.2 MG/DL PROTEIN, TOTAL (test code = 2229) 6.5 G/DL ALBUMIN (test code = 2201) 4.2 G/DL CALC GLOBULIN (test code = 2240) 2.3 G/DL CALC A/G RATIO (test code = 2234) 1.8 RATIO BILIRUBIN, TOTAL (test code = 2207) 0.5 MG/DL ALKALINE PHOSPHATASE (test code = 2204) 114 U/L AST (test code = 2218) 35 U/L ALT (test code = 2219) 27 U/L CBC W/AUTO [id number] 00:00:00* Test Item Value Reference Range Interpretation Comme nts WBC (test code = 1001) 5.7 K/UL RBC (test code = 1002) 3.59 M/UL HEMOGLOBIN (test code = 1003) 11.5 G/DL HEMATOCRIT (test code = 1004) 34.1 % MCV (test code = 1005) 95.0 fL MCH (test code = 1006) 32.0 PG MCHC (test code = 1007) 33.7 G/DL RDW (test code = 1038) 13.6 % NEUTROPHILS (test code = 1008) 63.2 % LYMPHOCYTES (test code = 1010) 24.3 % MONOCYTES (test code = 1011) 8.6 % EOSINOPHILS (test code = 1012) 2.4 % BASOPHILS (test code = 1013) 1.2 % IMMATURE GRANULOCYTES (test code = 1036) 0.3 % NUCLEATED RBCS (test code = 1065) 0.0 /100WBC'S PLATELET COUNT (test code = 1015) 127 K/UL ABSOLUTE NEUTROPHILS (test c ode = 1066) 3.62 K/UL ABSOLUTE LYMPHOCYTES (test c ode = 1067) 1.39 K/UL ABSOLUTE MONOCYTES (test cod e = 1068) 0.49 K/UL ABSOLUTE EOSINOPHILS (test c ode = 1040) 0.14 K/UL ABSOLUTE BASOPHILS (test cod e = 1069) 0.07 K/UL ABS IMMATURE GRANULOCYTES (t est code = 1020) 0.02 K/UL ABS NUCLEATED RBCS (test cod e = 15038) 0.00 K/UL [id number] 00:00:00* Test Item Value Reference Range Interpretation Comme nts TSH, THIRD GENERATION (test code = 2821) 0.038 UIU/ML COMPREHENSIVE METABOLIC PANEL [ADDED]2020-12-21 00:00:00* Test Item Value Reference Range Interpretation Comme nts GLUCOSE (test code = 2217) 122 MG/DL BUN (test code = 2208) 17 MG/DL CREATININE (test code = 2214) 1.01 MG/DL eGFR AMER. (test cod e = 20415) 69 ML/MIN/1.73 eGFR NON- AMER. (test code = 69088) 60 ML/MIN/1.73 CALC BUN/CREAT (test code = 2235) 17 RATIO SODIUM (test code = 2231) 142 MEQ/L POTASSIUM (test code = 2228) 3.7 MEQ/L CHLORIDE (test code = 2215) 105 MEQ/L CARBON DIOXIDE (test code = 2206) 24 MEQ/L CALCIUM (test code = 2209) 9.2 MG/DL PROTEIN, TOTAL (test code = 2229) 6.5 G/DL ALBUMIN (test code = 2201) 4.2 G/DL CALC GLOBULIN (test code = 2240) 2.3 G/DL CALC A/G RATIO (test code = 2234) 1.8 RATIO BILIRUBIN, TOTAL (test code = 2207) 0.5 MG/DL ALKALINE PHOSPHATASE (test code = 2204) 114 U/L AST (test code = 2218) 35 U/L ALT (test code = 2219) 27 U/L CBC (INCLUDES DIFF/PLT)2020-09-15 00:00:00* Test Item Value Reference Range Interpretation Comme nts WHITE BLOOD CELL COUNT (test code = 6690-2) 7.9 Thousand/uL RED BLOOD CELL COUNT (test code = 789-8) 4.04 Million/uL HEMOGLOBIN (test code = 718-7) 13.0 g/dL HEMATOCRIT (test code = 4544-3) 39.0 % MCV (test code = 787-2) 96.5 fL MCH (test code = 785-6) 32.2 pg MCHC (test code = 786-4) 33.3 g/dL RDW (test code = 788-0) 13.1 % PLATELET COUNT (test code = 777-3) 141 Thousand/uL MPV (test code = 776-5) 10.1 fL ABSOLUTE NEUTROPHILS (test code = 751-8) 5372 cells/uL ABSOLUTE BAND NEUTROPHILS (test code = 63823-0) DNR cells/uL ABSOLUTE METAMYELOCYTES (christopher t code = 37453-3) DNR cells/uL ABSOLUTE MYELOCYTES (test code = 16768-6) DNR cells/uL ABSOLUTE PROMYELOCYTES (test code = 79218-7) DNR cells/uL ABSOLUTE LYMPHOCYTES (test code = 731-0) 1588 cells/uL ABSOLUTE MONOCYTES (test cod e = 742-7) 648 cells/uL ABSOLUTE EOSINOPHILS (test code = 711-2) 221 cells/uL ABSOLUTE BASOPHILS (test cod e = 704-7) 71 cells/uL ABSOLUTE BLASTS (test code = 37746-3) DNR cells/uL ABSOLUTE NUCLEATED RBC (test code = 83281-3) DNR cells/uL NEUTROPHILS (test code = 770-8) 68 % BAND NEUTROPHILS (test code = 764-1) DNR % METAMYELOCYTES (test code = 740-1) DNR % MYELOCYTES (test code = 749-2) DNR % PROMYELOCYTES (test code = 783-1) DNR % LYMPHOCYTES (test code = 736-9) 20.1 % REACTIVE LYMPHOCYTES (test code = 23529-9) DNR % MONOCYTES (test code = 5905-5) 8.2 % EOSINOPHILS (test code = 713-8) 2.8 % BASOPHILS (test code = 706-2) 0.9 % BLASTS (test code = 709-6) DNR % NUCLEATED RBC (test code = 30557-7) DNR /100WBC COMMENT(S) (test code = 8251-1) DNR COMPREHENSIVE METABOLIC [id number] 00:00:00* Test Item Value Reference Range Interpretation Comme nts GLUCOSE (test code = 2345-7) 116 mg/dL UREA NITROGEN (BUN) (test code = 3094-0) 11 mg/dL CREATININE (test code = 2160-0) 0.62 mg/dL eGFR NON-AFR. SPANISH (test code = 72868-5) 97 mL/min/1.73m2 eGFR (test code = 81012-2) 113 mL/min/1.73m2 BUN/CREATININE RATIO (test code = 3097-3) NOT APPLICABLE (calc) SODIUM (test code = 2951-2) 137 mmol/L POTASSIUM (test code = 2823-3) 3.4 mmol/L CHLORIDE (test code = 2075-0) 101 mmol/L CARBON DIOXIDE (test code = 2027-9) 24 mmol/L CALCIUM (test code = 61238-6) 9.2 mg/dL PROTEIN, TOTAL (test code = 2885-2) 6.8 g/dL ALBUMIN (test code = 1751-7) 3.8 g/dL GLOBULIN (test code = 41781-6) 3.0 g/dL(calc) ALBUMIN/GLOBULIN RATIO (test code = 1759-0) 1.3 (calc) BILIRUBIN, TOTAL (test code = 1975-2) 0.8 mg/dL ALKALINE PHOSPHATASE (test code = 6768-6) 95 U/L AST (test code = 1920-8) 23 U/L ALT (test code = 1742-6) 14 U/L Jonatan Barber AustinLIPID PANEL (REFL)2020-09-15 00:00:00* Test Item Value Reference Range Interpretation Comme nts CHOLESTEROL, TOTAL (test cod e = 2093-3) 202 mg/dL HDL CHOLESTEROL (test code = 2085-9) 65 mg/dL TRIGLYCERIDES (test code = 2571-8) 167 mg/dL LDL-CHOLESTEROL (test code = 56471-5) 109 mg/dL(calc) CHOL/HDLC RATIO (test code = 9830-1) 3.1 (calc) NON HDL CHOLESTEROL (test code = 35762-2) 137 mg/dL(calc) CBC (INCLUDES DIFF/PLT)2020-09-15 00:00:00* Test Item Value Reference Range Interpretation Comme nts WHITE BLOOD CELL COUNT (test code = 6690-2) 7.9 Thousand/uL RED BLOOD CELL COUNT (test code = 789-8) 4.04 Million/uL HEMOGLOBIN (test code = 718-7) 13.0 g/dL HEMATOCRIT (test code = 4544-3) 39.0 % MCV (test code = 787-2) 96.5 fL MCH (test code = 785-6) 32.2 pg MCHC (test code = 786-4) 33.3 g/dL RDW (test code = 788-0) 13.1 % PLATELET COUNT (test code = 777-3) 141 Thousand/uL MPV (test code = 776-5) 10.1 fL ABSOLUTE NEUTROPHILS (test code = 751-8) 5372 cells/uL ABSOLUTE BAND NEUTROPHILS (test code = 61322-0) DNR cells/uL ABSOLUTE METAMYELOCYTES (christopher t code = 86086-4) DNR cells/uL ABSOLUTE MYELOCYTES (test code = 03287-8) DNR cells/uL ABSOLUTE PROMYELOCYTES (test code = 22092-9) DNR cells/uL ABSOLUTE LYMPHOCYTES (test code = 731-0) 1588 cells/uL ABSOLUTE MONOCYTES (test cod e = 742-7) 648 cells/uL ABSOLUTE EOSINOPHILS (test code = 711-2) 221 cells/uL ABSOLUTE BASOPHILS (test cod e = 704-7) 71 cells/uL ABSOLUTE BLASTS (test code = 51729-9) DNR cells/uL ABSOLUTE NUCLEATED RBC (test code = 97394-8) DNR cells/uL NEUTROPHILS (test code = 770-8) 68 % BAND NEUTROPHILS (test code = 764-1) DNR % METAMYELOCYTES (test code = 740-1) DNR % MYELOCYTES (test code = 749-2) DNR % PROMYELOCYTES (test code = 783-1) DNR % LYMPHOCYTES (test code = 736-9) 20.1 % REACTIVE LYMPHOCYTES (test code = 56480-1) DNR % MONOCYTES (test code = 5905-5) 8.2 % EOSINOPHILS (test code = 713-8) 2.8 % BASOPHILS (test code = 706-2) 0.9 % BLASTS (test code = 709-6) DNR % NUCLEATED RBC (test code = 48547-6) DNR /100WBC COMMENT(S) (test code = 8251-1) DNR COMPREHENSIVE METABOLIC [id number] 00:00:00* Test Item Value Reference Range Interpretation Comme nts GLUCOSE (test code = 2345-7) 116 mg/dL UREA NITROGEN (BUN) (test code = 3094-0) 11 mg/dL CREATININE (test code = 2160-0) 0.62 mg/dL eGFR NON-AFR. SPANISH (test code = 52612-1) 97 mL/min/1.73m2 eGFR (test code = 14658-4) 113 mL/min/1.73m2 BUN/CREATININE RATIO (test code = 3097-3) NOT APPLICABLE (calc) SODIUM (test code = 2951-2) 137 mmol/L POTASSIUM (test code = 2823-3) 3.4 mmol/L CHLORIDE (test code = 2075-0) 101 mmol/L CARBON DIOXIDE (test code = 8-9) 24 mmol/L CALCIUM (test code = 92742-7) 9.2 mg/dL PROTEIN, TOTAL (test code = 2885-2) 6.8 g/dL ALBUMIN (test code = 1751-7) 3.8 g/dL GLOBULIN (test code = 30379-2) 3.0 g/dL(calc) ALBUMIN/GLOBULIN RATIO (test code = 1759-0) 1.3 (calc) BILIRUBIN, TOTAL (test code = 1975-2) 0.8 mg/dL ALKALINE PHOSPHATASE (test code = 6768-6) 95 U/L AST (test code = 1920-8) 23 U/L ALT (test code = 1742-6) 14 U/L [id number] 00:00:00* Test Item Value Reference Range Interpretation Comme nts TSH (test code = 3016-3) 0.05 mIU/L CBC (INCLUDES DIFF/PLT)2020-09-15 00:00:00* Test Item Value Reference Range Interpretation Comme nts WHITE BLOOD CELL COUNT (test code = 6690-2) 7.9 Thousand/uL RED BLOOD CELL COUNT (test code = 789-8) 4.04 Million/uL HEMOGLOBIN (test code = 718-7) 13.0 g/dL HEMATOCRIT (test code = 4544-3) 39.0 % MCV (test code = 787-2) 96.5 fL MCH (test code = 785-6) 32.2 pg MCHC (test code = 786-4) 33.3 g/dL RDW (test code = 788-0) 13.1 % PLATELET COUNT (test code = 777-3) 141 Thousand/uL MPV (test code = 776-5) 10.1 fL ABSOLUTE NEUTROPHILS (test code = 751-8) 5372 cells/uL ABSOLUTE BAND NEUTROPHILS (test code = 45533-4) DNR cells/uL ABSOLUTE METAMYELOCYTES (christopher t code = 29940-7) DNR cells/uL ABSOLUTE MYELOCYTES (test code = 82114-4) DNR cells/uL ABSOLUTE PROMYELOCYTES (test code = 34997-8) DNR cells/uL ABSOLUTE LYMPHOCYTES (test code = 731-0) 1588 cells/uL ABSOLUTE MONOCYTES (test cod e = 742-7) 648 cells/uL ABSOLUTE EOSINOPHILS (test code = 711-2) 221 cells/uL ABSOLUTE BASOPHILS (test cod e = 704-7) 71 cells/uL ABSOLUTE BLASTS (test code = 00298-7) DNR cells/uL ABSOLUTE NUCLEATED RBC (test code = 99967-5) DNR cells/uL NEUTROPHILS (test code = 770-8) 68 % BAND NEUTROPHILS (test code = 764-1) DNR % METAMYELOCYTES (test code = 740-1) DNR % MYELOCYTES (test code = 749-2) DNR % PROMYELOCYTES (test code = 783-1) DNR % LYMPHOCYTES (test code = 736-9) 20.1 % REACTIVE LYMPHOCYTES (test code = 73121-9) DNR % MONOCYTES (test code = 5905-5) 8.2 % EOSINOPHILS (test code = 713-8) 2.8 % BASOPHILS (test code = 706-2) 0.9 % BLASTS (test code = 709-6) DNR % NUCLEATED RBC (test code = 26576-6) DNR /100WBC COMMENT(S) (test code = 8251-1) DNR [id number] 00:00:00* Test Item Value Reference Range Interpretation Comme nts TSH (test code = 3016-3) 0.05 mIU/L Jonatan F AustinLIPID PANEL (REFL)2020-09-15 00:00:00* Test Item Value Reference Range Interpretation Comme nts CHOLESTEROL, TOTAL (test cod e = 2093-3) 202 mg/dL HDL CHOLESTEROL (test code = 2085-9) 65 mg/dL TRIGLYCERIDES (test code = 2571-8) 167 mg/dL LDL-CHOLESTEROL (test code = 56421-0) 109 mg/dL(calc) CHOL/HDLC RATIO (test code = 9830-1) 3.1 (calc) NON HDL CHOLESTEROL (test code = 41917-0) 137 mg/dL(calc) COMPREHENSIVE METABOLIC [id number] 00:00:00* Test Item Value Reference Range Interpretation Comme nts GLUCOSE (test code = 2345-7) 116 mg/dL UREA NITROGEN (BUN) (test code = 3094-0) 11 mg/dL CREATININE (test code = 2160-0) 0.62 mg/dL eGFR NON-AFR. SPANISH (test code = 96420-0) 97 mL/min/1.73m2 eGFR (test code = 35313-0) 113 mL/min/1.73m2 BUN/CREATININE RATIO (test code = 3097-3) NOT APPLICABLE (calc) SODIUM (test code = 2951-2) 137 mmol/L POTASSIUM (test code = 2823-3) 3.4 mmol/L CHLORIDE (test code = 2075-0) 101 mmol/L CARBON DIOXIDE (test code = 2027-9) 24 mmol/L CALCIUM (test code = 93100-2) 9.2 mg/dL PROTEIN, TOTAL (test code = 2885-2) 6.8 g/dL ALBUMIN (test code = 1751-7) 3.8 g/dL GLOBULIN (test code = 78376-8) 3.0 g/dL(calc) ALBUMIN/GLOBULIN RATIO (test code = 1759-0) 1.3 (calc) BILIRUBIN, TOTAL (test code = 1975-2) 0.8 mg/dL ALKALINE PHOSPHATASE (test code = 6768-6) 95 U/L AST (test code = 1920-8) 23 U/L ALT (test code = 1742-6) 14 U/L [id number] 00:00:00* Test Item Value Reference Range Interpretation Comme nts TSH (test code = 3016-3) 0.05 mIU/L CBC (INCLUDES DIFF/PLT)2020-09-15 00:00:00* Test Item Value Reference Range Interpretation Comme nts WHITE BLOOD CELL COUNT (test code = 6690-2) 7.9 Thousand/uL RED BLOOD CELL COUNT (test code = 789-8) 4.04 Million/uL HEMOGLOBIN (test code = 718-7) 13.0 g/dL HEMATOCRIT (test code = 4544-3) 39.0 % MCV (test code = 787-2) 96.5 fL MCH (test code = 785-6) 32.2 pg MCHC (test code = 786-4) 33.3 g/dL RDW (test code = 788-0) 13.1 % PLATELET COUNT (test code = 777-3) 141 Thousand/uL MPV (test code = 776-5) 10.1 fL ABSOLUTE NEUTROPHILS (test code = 751-8) 5372 cells/uL ABSOLUTE BAND NEUTROPHILS (test code = 22342-8) DNR cells/uL ABSOLUTE METAMYELOCYTES (christopher t code = 30919-7) DNR cells/uL ABSOLUTE MYELOCYTES (test code = 32626-6) DNR cells/uL ABSOLUTE PROMYELOCYTES (test code = 94697-6) DNR cells/uL ABSOLUTE LYMPHOCYTES (test code = 731-0) 1588 cells/uL ABSOLUTE MONOCYTES (test cod e = 742-7) 648 cells/uL ABSOLUTE EOSINOPHILS (test code = 711-2) 221 cells/uL ABSOLUTE BASOPHILS (test cod e = 704-7) 71 cells/uL ABSOLUTE BLASTS (test code = 70226-2) DNR cells/uL ABSOLUTE NUCLEATED RBC (test code = 10937-6) DNR cells/uL NEUTROPHILS (test code = 770-8) 68 % BAND NEUTROPHILS (test code = 764-1) DNR % METAMYELOCYTES (test code = 740-1) DNR % MYELOCYTES (test code = 749-2) DNR % PROMYELOCYTES (test code = 783-1) DNR % LYMPHOCYTES (test code = 736-9) 20.1 % REACTIVE LYMPHOCYTES (test code = 98604-0) DNR % MONOCYTES (test code = 5905-5) 8.2 % EOSINOPHILS (test code = 713-8) 2.8 % BASOPHILS (test code = 706-2) 0.9 % BLASTS (test code = 709-6) DNR % NUCLEATED RBC (test code = 58034-7) DNR /100WBC COMMENT(S) (test code = 8251-1) DNR Jonatan EasonLIPID PANEL (REFL)2020-09-15 00:00:00* Test Item Value Reference Range Interpretation Comme nts CHOLESTEROL, TOTAL (test cod e = 2093-3) 202 mg/dL HDL CHOLESTEROL (test code = 2085-9) 65 mg/dL TRIGLYCERIDES (test code = 2571-8) 167 mg/dL LDL-CHOLESTEROL (test code = 37132-4) 109 mg/dL(calc) CHOL/HDLC RATIO (test code = 9830-1) 3.1 (calc) NON HDL CHOLESTEROL (test code = 49265-5) 137 mg/dL(calc) Jonatan EasonCOMPREHENSIVE METABOLIC [id number] 00:00:00* Test Item Value Reference Range Interpretation Comme nts GLUCOSE (test code = 2345-7) 116 mg/dL UREA NITROGEN (BUN) (test code = 3094-0) 11 mg/dL CREATININE (test code = 2160-0) 0.62 mg/dL eGFR NON-AFR. SPANISH (test code = 78779-6) 97 mL/min/1.73m2 eGFR (test code = 10184-5) 113 mL/min/1.73m2 BUN/CREATININE RATIO (test code = 3097-3) NOT APPLICABLE (calc) SODIUM (test code = 2951-2) 137 mmol/L POTASSIUM (test code = 2823-3) 3.4 mmol/L CHLORIDE (test code = 2075-0) 101 mmol/L CARBON DIOXIDE (test code = 2027-9) 24 mmol/L CALCIUM (test code = 50488-7) 9.2 mg/dL PROTEIN, TOTAL (test code = 2885-2) 6.8 g/dL ALBUMIN (test code = 1751-7) 3.8 g/dL GLOBULIN (test code = 19164-9) 3.0 g/dL(calc) ALBUMIN/GLOBULIN RATIO (test code = 1759-0) 1.3 (calc) BILIRUBIN, TOTAL (test code = 1975-2) 0.8 mg/dL ALKALINE PHOSPHATASE (test code = 6768-6) 95 U/L AST (test code = 1920-8) 23 U/L ALT (test code = 1742-6) 14 U/L Jonatan [id number] 00:00:00* Test Item Value Reference Range Interpretation Comme [facility] TSH (test code = 3016-3) 0.05 mIU/L Jonatan EasonCBC (INCLUDES DIFF/PLT)2020-09-15 00:00:00* Test Item Value Reference Range Interpretation Comme alber WHITE BLOOD CELL COUNT (test code = 6690-2) 7.9 Thousand/uL RED BLOOD CELL COUNT (test code = 789-8) 4.04 Million/uL HEMOGLOBIN (test code = 718-7) 13.0 g/dL HEMATOCRIT (test code = 4544-3) 39.0 % MCV (test code = 787-2) 96.5 fL MCH (test code = 785-6) 32.2 pg MCHC (test code = 786-4) 33.3 g/dL RDW (test code = 788-0) 13.1 % PLATELET COUNT (test code = 777-3) 141 Thousand/uL MPV (test code = 776-5) 10.1 fL ABSOLUTE NEUTROPHILS (test code = 751-8) 5372 cells/uL ABSOLUTE BAND NEUTROPHILS (test code = 20873-1) DNR cells/uL ABSOLUTE METAMYELOCYTES (christopher t code = 27929-2) DNR cells/uL ABSOLUTE MYELOCYTES (test code = 77605-5) DNR cells/uL ABSOLUTE PROMYELOCYTES (test code = 17075-8) DNR cells/uL ABSOLUTE LYMPHOCYTES (test code = 731-0) 1588 cells/uL ABSOLUTE MONOCYTES (test cod e = 742-7) 648 cells/uL ABSOLUTE EOSINOPHILS (test code = 711-2) 221 cells/uL ABSOLUTE BASOPHILS (test cod e = 704-7) 71 cells/uL ABSOLUTE BLASTS (test code = 64222-5) DNR cells/uL ABSOLUTE NUCLEATED RBC (test code = 61570-9) DNR cells/uL NEUTROPHILS (test code = 770-8) 68 % BAND NEUTROPHILS (test code = 764-1) DNR % METAMYELOCYTES (test code = 740-1) DNR % MYELOCYTES (test code = 749-2) DNR % PROMYELOCYTES (test code = 783-1) DNR % LYMPHOCYTES (test code = 736-9) 20.1 % REACTIVE LYMPHOCYTES (test code = 57333-8) DNR % MONOCYTES (test code = 5905-5) 8.2 % EOSINOPHILS (test code = 713-8) 2.8 % BASOPHILS (test code = 706-2) 0.9 % BLASTS (test code = 709-6) DNR % NUCLEATED RBC (test code = 63236-1) DNR /100WBC COMMENT(S) (test code = 8251-1) DNR Jonatan F AustinLIPID PANEL (REFL)2020-09-15 00:00:00* Test Item Value Reference Range Interpretation Comme nts CHOLESTEROL, TOTAL (test cod e = 2093-3) 202 mg/dL HDL CHOLESTEROL (test code = 2085-9) 65 mg/dL TRIGLYCERIDES (test code = 2571-8) 167 mg/dL LDL-CHOLESTEROL (test code = 59799-0) 109 mg/dL(calc) CHOL/HDLC RATIO (test code = 9830-1) 3.1 (calc) NON HDL CHOLESTEROL (test code = 36630-5) 137 mg/dL(calc) Jonatan EasonCOMPREHENSIVE METABOLIC [id number] 00:00:00* Test Item Value Reference Range Interpretation Comme nts GLUCOSE (test code = 2345-7) 116 mg/dL UREA NITROGEN (BUN) (test code = 3094-0) 11 mg/dL CREATININE (test code = 2160-0) 0.62 mg/dL eGFR NON-AFR. SPANISH (test code = 79302-2) 97 mL/min/1.73m2 eGFR (test code = 25067-5) 113 mL/min/1.73m2 BUN/CREATININE RATIO (test code = 3097-3) NOT APPLICABLE (calc) SODIUM (test code = 2951-2) 137 mmol/L POTASSIUM (test code = 2823-3) 3.4 mmol/L CHLORIDE (test code = 2075-0) 101 mmol/L CARBON DIOXIDE (test code = 2027-9) 24 mmol/L CALCIUM (test code = 06042-1) 9.2 mg/dL PROTEIN, TOTAL (test code = 2885-2) 6.8 g/dL ALBUMIN (test code = 1751-7) 3.8 g/dL GLOBULIN (test code = 01483-6) 3.0 g/dL(calc) ALBUMIN/GLOBULIN RATIO (test code = 1759-0) 1.3 (calc) BILIRUBIN, TOTAL (test code = 1975-2) 0.8 mg/dL ALKALINE PHOSPHATASE (test code = 6768-6) 95 U/L AST (test code = 1920-8) 23 U/L ALT (test code = 1742-6) 14 U/L Jonatan [id number] 00:00:00* Test Item Value Reference Range Interpretation Comme nts TSH (test code = 3016-3) 0.05 mIU/L Jonatan EasonCBC (INCLUDES DIFF/PLT)2020-09-15 00:00:00* Test Item Value Reference Range Interpretation Comme nts WHITE BLOOD CELL COUNT (test code = 6690-2) 7.9 Thousand/uL RED BLOOD CELL COUNT (test code = 789-8) 4.04 Million/uL HEMOGLOBIN (test code = 718-7) 13.0 g/dL HEMATOCRIT (test code = 4544-3) 39.0 % MCV (test code = 787-2) 96.5 fL MCH (test code = 785-6) 32.2 pg MCHC (test code = 786-4) 33.3 g/dL RDW (test code = 788-0) 13.1 % PLATELET COUNT (test code = 777-3) 141 Thousand/uL MPV (test code = 776-5) 10.1 fL ABSOLUTE NEUTROPHILS (test code = 751-8) 5372 cells/uL ABSOLUTE BAND NEUTROPHILS (test code = 09634-8) DNR cells/uL ABSOLUTE METAMYELOCYTES (christopher t code = 75859-9) DNR cells/uL ABSOLUTE MYELOCYTES (test code = 06288-4) DNR cells/uL ABSOLUTE PROMYELOCYTES (test code = 88566-6) DNR cells/uL ABSOLUTE LYMPHOCYTES (test code = 731-0) 1588 cells/uL ABSOLUTE MONOCYTES (test cod e = 742-7) 648 cells/uL ABSOLUTE EOSINOPHILS (test code = 711-2) 221 cells/uL ABSOLUTE BASOPHILS (test cod e = 704-7) 71 cells/uL ABSOLUTE BLASTS (test code = 66597-9) DNR cells/uL ABSOLUTE NUCLEATED RBC (test code = 96926-9) DNR cells/uL NEUTROPHILS (test code = 770-8) 68 % BAND NEUTROPHILS (test code = 764-1) DNR % METAMYELOCYTES (test code = 740-1) DNR % MYELOCYTES (test code = 749-2) DNR % PROMYELOCYTES (test code = 783-1) DNR % LYMPHOCYTES (test code = 736-9) 20.1 % REACTIVE LYMPHOCYTES (test code = 42586-5) DNR % MONOCYTES (test code = 5905-5) 8.2 % EOSINOPHILS (test code = 713-8) 2.8 % BASOPHILS (test code = 706-2) 0.9 % BLASTS (test code = 709-6) DNR % NUCLEATED RBC (test code = 49418-4) DNR /100WBC COMMENT(S) (test code = 8251-1) DNR Jonatan Barber AustinLIPID PANEL (REFL)2020-09-15 00:00:00* Test Item Value Reference Range Interpretation Comme nts CHOLESTEROL, TOTAL (test cod e = 2093-3) 202 mg/dL HDL CHOLESTEROL (test code = 5-9) 65 mg/dL TRIGLYCERIDES (test code = 2571-8) 167 mg/dL LDL-CHOLESTEROL (test code = 41875-5) 109 mg/dL(calc) CHOL/HDLC RATIO (test code = 9830-1) 3.1 (calc) NON HDL CHOLESTEROL (test code = 80958-2) 137 mg/dL(calc) COMPREHENSIVE METABOLIC [id number] 00:00:00* Test Item Value Reference Range Interpretation Comme nts GLUCOSE (test code = 2345-7) 116 mg/dL UREA NITROGEN (BUN) (test code = 3094-0) 11 mg/dL CREATININE (test code = 2160-0) 0.62 mg/dL eGFR NON-AFR. SPANISH (test code = 86470-4) 97 mL/min/1.73m2 eGFR (test code = 49308-6) 113 mL/min/1.73m2 BUN/CREATININE RATIO (test code = 3097-3) NOT APPLICABLE (calc) SODIUM (test code = 2951-2) 137 mmol/L POTASSIUM (test code = 2823-3) 3.4 mmol/L CHLORIDE (test code = 2075-0) 101 mmol/L CARBON DIOXIDE (test code = 2027-9) 24 mmol/L CALCIUM (test code = 29701-2) 9.2 mg/dL PROTEIN, TOTAL (test code = 2885-2) 6.8 g/dL ALBUMIN (test code = 1751-7) 3.8 g/dL GLOBULIN (test code = 13086-0) 3.0 g/dL(calc) ALBUMIN/GLOBULIN RATIO (test code = 1759-0) 1.3 (calc) BILIRUBIN, TOTAL (test code = 1975-2) 0.8 mg/dL ALKALINE PHOSPHATASE (test code = 6768-6) 95 U/L AST (test code = 1920-8) 23 U/L ALT (test code = 1742-6) 14 U/L CBC (INCLUDES DIFF/PLT)2020-09-15 00:00:00* Test Item Value Reference Range Interpretation Comme nts WHITE BLOOD CELL COUNT (test code = 6690-2) 7.9 Thousand/uL RED BLOOD CELL COUNT (test code = 789-8) 4.04 Million/uL HEMOGLOBIN (test code = 718-7) 13.0 g/dL HEMATOCRIT (test code = 4544-3) 39.0 % MCV (test code = 787-2) 96.5 fL MCH (test code = 785-6) 32.2 pg MCHC (test code = 786-4) 33.3 g/dL RDW (test code = 788-0) 13.1 % PLATELET COUNT (test code = 777-3) 141 Thousand/uL MPV (test code = 776-5) 10.1 fL ABSOLUTE NEUTROPHILS (test code = 751-8) 5372 cells/uL ABSOLUTE BAND NEUTROPHILS (test code = 37141-4) DNR cells/uL ABSOLUTE METAMYELOCYTES (christopher t code = 44988-3) DNR cells/uL ABSOLUTE MYELOCYTES (test code = 94981-3) DNR cells/uL ABSOLUTE PROMYELOCYTES (test code = 93591-7) DNR cells/uL ABSOLUTE LYMPHOCYTES (test code = 731-0) 1588 cells/uL ABSOLUTE MONOCYTES (test cod e = 742-7) 648 cells/uL ABSOLUTE EOSINOPHILS (test code = 711-2) 221 cells/uL ABSOLUTE BASOPHILS (test cod e = 704-7) 71 cells/uL ABSOLUTE BLASTS (test code = 80401-4) DNR cells/uL ABSOLUTE NUCLEATED RBC (test code = 59720-3) DNR cells/uL NEUTROPHILS (test code = 770-8) 68 % BAND NEUTROPHILS (test code = 764-1) DNR % METAMYELOCYTES (test code = 740-1) DNR % MYELOCYTES (test code = 749-2) DNR % PROMYELOCYTES (test code = 783-1) DNR % LYMPHOCYTES (test code = 736-9) 20.1 % REACTIVE LYMPHOCYTES (test code = 64725-7) DNR % MONOCYTES (test code = 5905-5) 8.2 % EOSINOPHILS (test code = 713-8) 2.8 % BASOPHILS (test code = 706-2) 0.9 % BLASTS (test code = 709-6) DNR % NUCLEATED RBC (test code = 92834-9) DNR /100WBC COMMENT(S) (test code = 8251-1) DNR LIPID PANEL (REFL)2020-09-15 00:00:00* Test Item Value Reference Range Interpretation Comme nts CHOLESTEROL, TOTAL (test cod e = 2093-3) 202 mg/dL HDL CHOLESTEROL (test code = 2085-9) 65 mg/dL TRIGLYCERIDES (test code = 2571-8) 167 mg/dL LDL-CHOLESTEROL (test code = 58387-4) 109 mg/dL(calc) CHOL/HDLC RATIO (test code = 9830-1) 3.1 (calc) NON HDL CHOLESTEROL (test code = 35470-3) 137 mg/dL(calc) [id number] 00:00:00* Test Item Value Reference Range Interpretation Comme nts TSH (test code = 3016-3) 0.05 mIU/L COMPREHENSIVE METABOLIC [id number] 00:00:00* Test Item Value Reference Range Interpretation Comme nts GLUCOSE (test code = 2345-7) 116 mg/dL UREA NITROGEN (BUN) (test code = 3094-0) 11 mg/dL CREATININE (test code = 2160-0) 0.62 mg/dL eGFR NON-AFR. SPANISH (test code = 22906-1) 97 mL/min/1.73m2 eGFR (test code = 72149-4) 113 mL/min/1.73m2 BUN/CREATININE RATIO (test code = 3097-3) NOT APPLICABLE (calc) SODIUM (test code = 2951-2) 137 mmol/L POTASSIUM (test code = 2823-3) 3.4 mmol/L CHLORIDE (test code = 2075-0) 101 mmol/L CARBON DIOXIDE (test code = 2027-9) 24 mmol/L CALCIUM (test code = 97994-7) 9.2 mg/dL PROTEIN, TOTAL (test code = 2885-2) 6.8 g/dL ALBUMIN (test code = 1751-7) 3.8 g/dL GLOBULIN (test code = 43492-8) 3.0 g/dL(calc) ALBUMIN/GLOBULIN RATIO (test code = 1759-0) 1.3 (calc) BILIRUBIN, TOTAL (test code = 1975-2) 0.8 mg/dL ALKALINE PHOSPHATASE (test code = 6768-6) 95 U/L AST (test code = 1920-8) 23 U/L ALT (test code = 1742-6) 14 U/L [id number] 00:00:00* Test Item Value Reference Range Interpretation Comme nts TSH (test code = 3016-3) 0.05 mIU/L CBC (INCLUDES DIFF/PLT)2020-09-15 00:00:00* Test Item Value Reference Range Interpretation Comme nts WHITE BLOOD CELL COUNT (test code = 6690-2) 7.9 Thousand/uL RED BLOOD CELL COUNT (test code = 789-8) 4.04 Million/uL HEMOGLOBIN (test code = 718-7) 13.0 g/dL HEMATOCRIT (test code = 4544-3) 39.0 % MCV (test code = 787-2) 96.5 fL MCH (test code = 785-6) 32.2 pg MCHC (test code = 786-4) 33.3 g/dL RDW (test code = 788-0) 13.1 % PLATELET COUNT (test code = 777-3) 141 Thousand/uL MPV (test code = 776-5) 10.1 fL ABSOLUTE NEUTROPHILS (test code = 751-8) 5372 cells/uL ABSOLUTE BAND NEUTROPHILS (test code = 64758-5) DNR cells/uL ABSOLUTE METAMYELOCYTES (christopher t code = 11729-4) DNR cells/uL ABSOLUTE MYELOCYTES (test code = 46155-6) DNR cells/uL ABSOLUTE PROMYELOCYTES (test code = 19147-2) DNR cells/uL ABSOLUTE LYMPHOCYTES (test code = 731-0) 1588 cells/uL ABSOLUTE MONOCYTES (test cod e = 742-7) 648 cells/uL ABSOLUTE EOSINOPHILS (test code = 711-2) 221 cells/uL ABSOLUTE BASOPHILS (test cod e = 704-7) 71 cells/uL ABSOLUTE BLASTS (test code = 20456-7) DNR cells/uL ABSOLUTE NUCLEATED RBC (test code = 74477-8) DNR cells/uL NEUTROPHILS (test code = 770-8) 68 % BAND NEUTROPHILS (test code = 764-1) DNR % METAMYELOCYTES (test code = 740-1) DNR % MYELOCYTES (test code = 749-2) DNR % PROMYELOCYTES (test code = 783-1) DNR % LYMPHOCYTES (test code = 736-9) 20.1 % REACTIVE LYMPHOCYTES (test code = 53323-8) DNR % MONOCYTES (test code = 5905-5) 8.2 % EOSINOPHILS (test code = 713-8) 2.8 % BASOPHILS (test code = 706-2) 0.9 % BLASTS (test code = 709-6) DNR % NUCLEATED RBC (test code = 71003-9) DNR /100WBC COMMENT(S) (test code = 8251-1) DNR LIPID PANEL (REFL)2020-09-15 00:00:00* Test Item Value Reference Range Interpretation Comme nts CHOLESTEROL, TOTAL (test cod e = 2093-3) 202 mg/dL HDL CHOLESTEROL (test code = 2085-9) 65 mg/dL TRIGLYCERIDES (test code = 2571-8) 167 mg/dL LDL-CHOLESTEROL (test code = 22010-3) 109 mg/dL(calc) CHOL/HDLC RATIO (test code = 9830-1) 3.1 (calc) NON HDL CHOLESTEROL (test code = 37721-5) 137 mg/dL(calc) COMPREHENSIVE METABOLIC [id number] 00:00:00* Test Item Value Reference Range Interpretation Comme nts GLUCOSE (test code = 2345-7) 116 mg/dL UREA NITROGEN (BUN) (test code = 3094-0) 11 mg/dL CREATININE (test code = 2160-0) 0.62 mg/dL eGFR NON-AFR. SPANISH (test code = 53662-0) 97 mL/min/1.73m2 eGFR (test code = 46784-6) 113 mL/min/1.73m2 BUN/CREATININE RATIO (test code = 3097-3) NOT APPLICABLE (calc) SODIUM (test code = 2951-2) 137 mmol/L POTASSIUM (test code = 2823-3) 3.4 mmol/L CHLORIDE (test code = 2075-0) 101 mmol/L CARBON DIOXIDE (test code = 2027-9) 24 mmol/L CALCIUM (test code = 04748-6) 9.2 mg/dL PROTEIN, TOTAL (test code = 2885-2) 6.8 g/dL ALBUMIN (test code = 1751-7) 3.8 g/dL GLOBULIN (test code = 85400-6) 3.0 g/dL(calc) ALBUMIN/GLOBULIN RATIO (test code = 1759-0) 1.3 (calc) BILIRUBIN, TOTAL (test code = 1974-2) 0.8 mg/dL ALKALINE PHOSPHATASE (test code = 6768-6) 95 U/L AST (test code = 1920-8) 23 U/L ALT (test code = 1742-6) 14 U/L [id number] 00:00:00* Test Item Value Reference Range Interpretation Comme nts TSH (test code = 3016-3) 0.05 mIU/L CBC (INCLUDES DIFF/PLT)2020-09-15 00:00:00* Test Item Value Reference Range Interpretation Comme nts WHITE BLOOD CELL COUNT (test code = 6690-2) 7.9 Thousand/uL RED BLOOD CELL COUNT (test code = 789-8) 4.04 Million/uL HEMOGLOBIN (test code = 718-7) 13.0 g/dL HEMATOCRIT (test code = 4544-3) 39.0 % MCV (test code = 787-2) 96.5 fL MCH (test code = 785-6) 32.2 pg MCHC (test code = 786-4) 33.3 g/dL RDW (test code = 788-0) 13.1 % PLATELET COUNT (test code = 777-3) 141 Thousand/uL MPV (test code = 776-5) 10.1 fL ABSOLUTE NEUTROPHILS (test code = 751-8) 5372 cells/uL ABSOLUTE BAND NEUTROPHILS (test code = 97901-8) DNR cells/uL ABSOLUTE METAMYELOCYTES (christopher t code = 42850-8) DNR cells/uL ABSOLUTE MYELOCYTES (test code = 60501-3) DNR cells/uL ABSOLUTE PROMYELOCYTES (test code = 12724-6) DNR cells/uL ABSOLUTE LYMPHOCYTES (test code = 731-0) 1588 cells/uL ABSOLUTE MONOCYTES (test cod e = 742-7) 648 cells/uL ABSOLUTE EOSINOPHILS (test code = 711-2) 221 cells/uL ABSOLUTE BASOPHILS (test cod e = 704-7) 71 cells/uL ABSOLUTE BLASTS (test code = 93140-2) DNR cells/uL ABSOLUTE NUCLEATED RBC (test code = 43161-8) DNR cells/uL NEUTROPHILS (test code = 770-8) 68 % BAND NEUTROPHILS (test code = 764-1) DNR % METAMYELOCYTES (test code = 740-1) DNR % MYELOCYTES (test code = 749-2) DNR % PROMYELOCYTES (test code = 783-1) DNR % LYMPHOCYTES (test code = 736-9) 20.1 % REACTIVE LYMPHOCYTES (test code = 97862-4) DNR % MONOCYTES (test code = 5905-5) 8.2 % EOSINOPHILS (test code = 713-8) 2.8 % BASOPHILS (test code = 706-2) 0.9 % BLASTS (test code = 709-6) DNR % NUCLEATED RBC (test code = 24358-4) DNR /100WBC COMMENT(S) (test code = 8251-1) DNR LIPID PANEL (REFL)2020-09-15 00:00:00* Test Item Value Reference Range Interpretation Comme nts CHOLESTEROL, TOTAL (test cod e = 2093-3) 202 mg/dL HDL CHOLESTEROL (test code = 2085-9) 65 mg/dL TRIGLYCERIDES (test code = 2571-8) 167 mg/dL LDL-CHOLESTEROL (test code = 69584-7) 109 mg/dL(calc) CHOL/HDLC RATIO (test code = 9830-1) 3.1 (calc) NON HDL CHOLESTEROL (test code = 92902-9) 137 mg/dL(calc) COMPREHENSIVE METABOLIC [id number] 00:00:00* Test Item Value Reference Range Interpretation Comme nts GLUCOSE (test code = 2345-7) 116 mg/dL UREA NITROGEN (BUN) (test code = 3094-0) 11 mg/dL CREATININE (test code = 2160-0) 0.62 mg/dL eGFR NON-AFR. SPANISH (test code = 57476-3) 97 mL/min/1.73m2 eGFR (test code = 04579-2) 113 mL/min/1.73m2 BUN/CREATININE RATIO (test code = 3097-3) NOT APPLICABLE (calc) SODIUM (test code = 2951-2) 137 mmol/L POTASSIUM (test code = 2823-3) 3.4 mmol/L CHLORIDE (test code = 2075-0) 101 mmol/L CARBON DIOXIDE (test code = 2027-9) 24 mmol/L CALCIUM (test code = 00689-2) 9.2 mg/dL PROTEIN, TOTAL (test code = 2885-2) 6.8 g/dL ALBUMIN (test code = 1751-7) 3.8 g/dL GLOBULIN (test code = 47863-0) 3.0 g/dL(calc) ALBUMIN/GLOBULIN RATIO (test code = 1759-0) 1.3 (calc) BILIRUBIN, TOTAL (test code = 1975-2) 0.8 mg/dL ALKALINE PHOSPHATASE (test code = 6768-6) 95 U/L AST (test code = 1920-8) 23 U/L ALT (test code = 1742-6) 14 U/L [id number] 00:00:00* Test Item Value Reference Range Interpretation Comme nts TSH (test code = 3016-3) 0.05 mIU/L LIPID PANEL (REFL)2020-09-15 00:00:00* Test Item Value Reference Range Interpretation Comme nts CHOLESTEROL, TOTAL (test cod e = 2093-3) 202 mg/dL HDL CHOLESTEROL (test code = 2085-9) 65 mg/dL TRIGLYCERIDES (test code = 2571-8) 167 mg/dL LDL-CHOLESTEROL (test code = 56617-4) 109 mg/dL(calc) CHOL/HDLC RATIO (test code = 9830-1) 3.1 (calc) NON HDL CHOLESTEROL (test code = 80039-6) 137 mg/dL(calc) Jonatan Barber JenaroCBC (INCLUDES DIFF/PLT)2020-09-15 00:00:00* Test Item Value Reference Range Interpretation Comme nts WHITE BLOOD CELL COUNT (test code = 6690-2) 7.9 Thousand/uL RED BLOOD CELL COUNT (test code = 789-8) 4.04 Million/uL HEMOGLOBIN (test code = 718-7) 13.0 g/dL HEMATOCRIT (test code = 4544-3) 39.0 % MCV (test code = 787-2) 96.5 fL MCH (test code = 785-6) 32.2 pg MCHC (test code = 786-4) 33.3 g/dL RDW (test code = 788-0) 13.1 % PLATELET COUNT (test code = 777-3) 141 Thousand/uL MPV (test code = 776-5) 10.1 fL ABSOLUTE NEUTROPHILS (test code = 751-8) 5372 cells/uL ABSOLUTE BAND NEUTROPHILS (test code = 60131-3) DNR cells/uL ABSOLUTE METAMYELOCYTES (christopher t code = 92526-4) DNR cells/uL ABSOLUTE MYELOCYTES (test code = 25921-1) DNR cells/uL ABSOLUTE PROMYELOCYTES (test code = 48634-1) DNR cells/uL ABSOLUTE LYMPHOCYTES (test code = 731-0) 1588 cells/uL ABSOLUTE MONOCYTES (test cod e = 742-7) 648 cells/uL ABSOLUTE EOSINOPHILS (test code = 711-2) 221 cells/uL ABSOLUTE BASOPHILS (test cod e = 704-7) 71 cells/uL ABSOLUTE BLASTS (test code = 54000-6) DNR cells/uL ABSOLUTE NUCLEATED RBC (test code = 26669-7) DNR cells/uL NEUTROPHILS (test code = 770-8) 68 % BAND NEUTROPHILS (test code = 764-1) DNR % METAMYELOCYTES (test code = 740-1) DNR % MYELOCYTES (test code = 749-2) DNR % PROMYELOCYTES (test code = 783-1) DNR % LYMPHOCYTES (test code = 736-9) 20.1 % REACTIVE LYMPHOCYTES (test code = 96030-8) DNR % MONOCYTES (test code = 5905-5) 8.2 % EOSINOPHILS (test code = 713-8) 2.8 % BASOPHILS (test code = 706-2) 0.9 % BLASTS (test code = 709-6) DNR % NUCLEATED RBC (test code = 56184-9) DNR /100WBC COMMENT(S) (test code = 8251-1) DNR LIPID PANEL (REFL)2020-09-15 00:00:00* Test Item Value Reference Range Interpretation Comme nts CHOLESTEROL, TOTAL (test cod e = 2093-3) 202 mg/dL HDL CHOLESTEROL (test code = 2085-9) 65 mg/dL TRIGLYCERIDES (test code = 2571-8) 167 mg/dL LDL-CHOLESTEROL (test code = 35050-2) 109 mg/dL(calc) CHOL/HDLC RATIO (test code = 9830-1) 3.1 (calc) NON HDL CHOLESTEROL (test code = 26913-5) 137 mg/dL(calc) COMPREHENSIVE METABOLIC [id number] 00:00:00* Test Item Value Reference Range Interpretation Comme nts GLUCOSE (test code = 2345-7) 116 mg/dL UREA NITROGEN (BUN) (test code = 3094-0) 11 mg/dL CREATININE (test code = 2160-0) 0.62 mg/dL eGFR NON-AFR. SPANISH (test code = 07396-9) 97 mL/min/1.73m2 eGFR (test code = 13718-0) 113 mL/min/1.73m2 BUN/CREATININE RATIO (test code = 3097-3) NOT APPLICABLE (calc) SODIUM (test code = 2951-2) 137 mmol/L POTASSIUM (test code = 2823-3) 3.4 mmol/L CHLORIDE (test code = 2075-0) 101 mmol/L CARBON DIOXIDE (test code = 2027-9) 24 mmol/L CALCIUM (test code = 10578-4) 9.2 mg/dL PROTEIN, TOTAL (test code = 2885-2) 6.8 g/dL ALBUMIN (test code = 1751-7) 3.8 g/dL GLOBULIN (test code = 01408-4) 3.0 g/dL(calc) ALBUMIN/GLOBULIN RATIO (test code = 1759-0) 1.3 (calc) BILIRUBIN, TOTAL (test code = 1975-2) 0.8 mg/dL ALKALINE PHOSPHATASE (test code = 6768-6) 95 U/L AST (test code = 1920-8) 23 U/L ALT (test code = 1742-6) 14 U/L [id number] 00:00:00* Test Item Value Reference Range Interpretation Comme nts TSH (test code = 3016-3) 0.05 mIU/L CBC (INCLUDES DIFF/PLT)2020-05-04 00:00:00* Test Item Value Reference Range Interpretation Comme nts WHITE BLOOD CELL COUNT (test code = 6690-2) 5.2 Thousand/uL RED BLOOD CELL COUNT (test code = 789-8) 4.67 Million/uL HEMOGLOBIN (test code = 718-7) 12.3 g/dL HEMATOCRIT (test code = 4544-3) 39.5 % MCV (test code = 787-2) 84.6 fL MCH (test code = 785-6) 26.3 pg MCHC (test code = 786-4) 31.1 g/dL RDW (test code = 788-0) 25.5 % PLATELET COUNT (test code = 777-3) 129 Thousand/uL MPV (test code = 776-5) 10.2 fL ABSOLUTE NEUTROPHILS (test code = 751-8) 3297 cells/uL ABSOLUTE BAND NEUTROPHILS (test code = 70746-9) DNR cells/uL ABSOLUTE METAMYELOCYTES (christopher t code = 81953-4) DNR cells/uL ABSOLUTE MYELOCYTES (test code = 98547-4) DNR cells/uL ABSOLUTE PROMYELOCYTES (test code = 81156-6) DNR cells/uL ABSOLUTE LYMPHOCYTES (test code = 731-0) 1316 cells/uL ABSOLUTE MONOCYTES (test cod e = 742-7) 400 cells/uL ABSOLUTE EOSINOPHILS (test code = 711-2) 99 cells/uL ABSOLUTE BASOPHILS (test cod e = 704-7) 88 cells/uL ABSOLUTE BLASTS (test code = 11632-9) DNR cells/uL ABSOLUTE NUCLEATED RBC (test code = 45552-4) DNR cells/uL NEUTROPHILS (test code = 770-8) 63.4 % BAND NEUTROPHILS (test code = 764-1) DNR % METAMYELOCYTES (test code = 740-1) DNR % MYELOCYTES (test code = 749-2) DNR % PROMYELOCYTES (test code = 783-1) DNR % LYMPHOCYTES (test code = 736-9) 25.3 % REACTIVE LYMPHOCYTES (test code = 94423-2) DNR % MONOCYTES (test code = 5905-5) 7.7 % EOSINOPHILS (test code = 713-8) 1.9 % BASOPHILS (test code = 706-2) 1.7 % BLASTS (test code = 709-6) DNR % NUCLEATED RBC (test code = 67741-4) DNR /100WBC COMMENT(S) (test code = 8251-1) DNR BASIC METABOLIC [id number] 00:00:00* Test Item Value Reference Range Interpretation Comme nts GLUCOSE (test code = 2345-7) 99 mg/dL UREA NITROGEN (BUN) (test code = 3094-0) 16 mg/dL CREATININE (test code = 2160-0) 0.94 mg/dL eGFR NON-AFR. SPANISH (test code = 36809-5) 65 mL/min/1.73m2 eGFR (test code = 32165-4) 76 mL/min/1.73m2 BUN/CREATININE RATIO (test code = 3097-3) NOT APPLICABLE (calc) SODIUM (test code = 2951-2) 139 mmol/L POTASSIUM (test code = 2823-3) 3.7 mmol/L CHLORIDE (test code = 2075-0) 107 mmol/L CARBON DIOXIDE (test code = 8-9) 22 mmol/L CALCIUM (test code = 83110-1) 9.3 mg/dL Jonatan EasonCBC (INCLUDES DIFF/PLT)2020-05-04 00:00:00* Test Item Value Reference Range Interpretation Comme nts WHITE BLOOD CELL COUNT (test code = 6690-2) 5.2 Thousand/uL RED BLOOD CELL COUNT (test code = 789-8) 4.67 Million/uL HEMOGLOBIN (test code = 718-7) 12.3 g/dL HEMATOCRIT (test code = 4544-3) 39.5 % MCV (test code = 787-2) 84.6 fL MCH (test code = 785-6) 26.3 pg MCHC (test code = 786-4) 31.1 g/dL RDW (test code = 788-0) 25.5 % PLATELET COUNT (test code = 777-3) 129 Thousand/uL MPV (test code = 776-5) 10.2 fL ABSOLUTE NEUTROPHILS (test code = 751-8) 3297 cells/uL ABSOLUTE BAND NEUTROPHILS (test code = 98684-5) DNR cells/uL ABSOLUTE METAMYELOCYTES (christopher t code = 08261-4) DNR cells/uL ABSOLUTE MYELOCYTES (test code = 64424-5) DNR cells/uL ABSOLUTE PROMYELOCYTES (test code = 66707-4) DNR cells/uL ABSOLUTE LYMPHOCYTES (test code = 731-0) 1316 cells/uL ABSOLUTE MONOCYTES (test cod e = 742-7) 400 cells/uL ABSOLUTE EOSINOPHILS (test code = 711-2) 99 cells/uL ABSOLUTE BASOPHILS (test cod e = 704-7) 88 cells/uL ABSOLUTE BLASTS (test code = 73234-4) DNR cells/uL ABSOLUTE NUCLEATED RBC (test code = 68204-4) DNR cells/uL NEUTROPHILS (test code = 770-8) 63.4 % BAND NEUTROPHILS (test code = 764-1) DNR % METAMYELOCYTES (test code = 740-1) DNR % MYELOCYTES (test code = 749-2) DNR % PROMYELOCYTES (test code = 783-1) DNR % LYMPHOCYTES (test code = 736-9) 25.3 % REACTIVE LYMPHOCYTES (test code = 82793-4) DNR % MONOCYTES (test code = 5905-5) 7.7 % EOSINOPHILS (test code = 713-8) 1.9 % BASOPHILS (test code = 706-2) 1.7 % BLASTS (test code = 709-6) DNR % NUCLEATED RBC (test code = 69182-0) DNR /100WBC COMMENT(S) (test code = 8251-1) DNR BASIC METABOLIC [id number] 00:00:00* Test Item Value Reference Range Interpretation Comme nts GLUCOSE (test code = 2345-7) 99 mg/dL UREA NITROGEN (BUN) (test code = 3094-0) 16 mg/dL CREATININE (test code = 2160-0) 0.94 mg/dL eGFR NON-AFR. SPANISH (test code = 10019-5) 65 mL/min/1.73m2 eGFR (test code = 51371-2) 76 mL/min/1.73m2 BUN/CREATININE RATIO (test code = 3097-3) NOT APPLICABLE (calc) SODIUM (test code = 2951-2) 139 mmol/L POTASSIUM (test code = 2823-3) 3.7 mmol/L CHLORIDE (test code = 2075-0) 107 mmol/L CARBON DIOXIDE (test code = 8-9) 22 mmol/L CALCIUM (test code = 22196-8) 9.3 mg/dL CBC (INCLUDES DIFF/PLT)2020-05-04 00:00:00* Test Item Value Reference Range Interpretation Comme nts WHITE BLOOD CELL COUNT (test code = 6690-2) 5.2 Thousand/uL RED BLOOD CELL COUNT (test code = 789-8) 4.67 Million/uL HEMOGLOBIN (test code = 718-7) 12.3 g/dL HEMATOCRIT (test code = 4544-3) 39.5 % MCV (test code = 787-2) 84.6 fL MCH (test code = 785-6) 26.3 pg MCHC (test code = 786-4) 31.1 g/dL RDW (test code = 788-0) 25.5 % PLATELET COUNT (test code = 777-3) 129 Thousand/uL MPV (test code = 776-5) 10.2 fL ABSOLUTE NEUTROPHILS (test code = 751-8) 3297 cells/uL ABSOLUTE BAND NEUTROPHILS (test code = 10265-4) DNR cells/uL ABSOLUTE METAMYELOCYTES (christopher t code = 24729-1) DNR cells/uL ABSOLUTE MYELOCYTES (test code = 50652-0) DNR cells/uL ABSOLUTE PROMYELOCYTES (test code = 29760-0) DNR cells/uL ABSOLUTE LYMPHOCYTES (test code = 731-0) 1316 cells/uL ABSOLUTE MONOCYTES (test cod e = 742-7) 400 cells/uL ABSOLUTE EOSINOPHILS (test code = 711-2) 99 cells/uL ABSOLUTE BASOPHILS (test cod e = 704-7) 88 cells/uL ABSOLUTE BLASTS (test code = 32270-9) DNR cells/uL ABSOLUTE NUCLEATED RBC (test code = 96003-2) DNR cells/uL NEUTROPHILS (test code = 770-8) 63.4 % BAND NEUTROPHILS (test code = 764-1) DNR % METAMYELOCYTES (test code = 740-1) DNR % MYELOCYTES (test code = 749-2) DNR % PROMYELOCYTES (test code = 783-1) DNR % LYMPHOCYTES (test code = 736-9) 25.3 % REACTIVE LYMPHOCYTES (test code = 19513-6) DNR % MONOCYTES (test code = 5905-5) 7.7 % EOSINOPHILS (test code = 713-8) 1.9 % BASOPHILS (test code = 706-2) 1.7 % BLASTS (test code = 709-6) DNR % NUCLEATED RBC (test code = 26541-5) DNR /100WBC COMMENT(S) (test code = 8251-1) DNR BASIC METABOLIC [id number] 00:00:00* Test Item Value Reference Range Interpretation Comme nts GLUCOSE (test code = 2345-7) 99 mg/dL UREA NITROGEN (BUN) (test code = 3094-0) 16 mg/dL CREATININE (test code = 2160-0) 0.94 mg/dL eGFR NON-AFR. SPANISH (test code = 93887-3) 65 mL/min/1.73m2 eGFR (test code = 11742-5) 76 mL/min/1.73m2 BUN/CREATININE RATIO (test code = 3097-3) NOT APPLICABLE (calc) SODIUM (test code = 2951-2) 139 mmol/L POTASSIUM (test code = 2823-3) 3.7 mmol/L CHLORIDE (test code = 2075-0) 107 mmol/L CARBON DIOXIDE (test code = 8-9) 22 mmol/L CALCIUM (test code = 79704-2) 9.3 mg/dL BASIC METABOLIC [id number] 00:00:00* Test Item Value Reference Range Interpretation Comme nts GLUCOSE (test code = 2345-7) 99 mg/dL UREA NITROGEN (BUN) (test code = 3094-0) 16 mg/dL CREATININE (test code = 2160-0) 0.94 mg/dL eGFR NON-AFR. SPANISH (test code = 67507-2) 65 mL/min/1.73m2 eGFR (test code = 29165-3) 76 mL/min/1.73m2 BUN/CREATININE RATIO (test code = 3097-3) NOT APPLICABLE (calc) SODIUM (test code = 2951-2) 139 mmol/L POTASSIUM (test code = 2823-3) 3.7 mmol/L CHLORIDE (test code = 2075-0) 107 mmol/L CARBON DIOXIDE (test code = 8-9) 22 mmol/L CALCIUM (test code = 88186-1) 9.3 mg/dL CBC (INCLUDES DIFF/PLT)2020-05-04 00:00:00* Test Item Value Reference Range Interpretation Comme nts WHITE BLOOD CELL COUNT (test code = 6690-2) 5.2 Thousand/uL RED BLOOD CELL COUNT (test code = 789-8) 4.67 Million/uL HEMOGLOBIN (test code = 718-7) 12.3 g/dL HEMATOCRIT (test code = 4544-3) 39.5 % MCV (test code = 787-2) 84.6 fL MCH (test code = 785-6) 26.3 pg MCHC (test code = 786-4) 31.1 g/dL RDW (test code = 788-0) 25.5 % PLATELET COUNT (test code = 777-3) 129 Thousand/uL MPV (test code = 776-5) 10.2 fL ABSOLUTE NEUTROPHILS (test code = 751-8) 3297 cells/uL ABSOLUTE BAND NEUTROPHILS (test code = 74628-6) DNR cells/uL ABSOLUTE METAMYELOCYTES (christopher t code = 58923-8) DNR cells/uL ABSOLUTE MYELOCYTES (test code = 57301-8) DNR cells/uL ABSOLUTE PROMYELOCYTES (test code = 48338-5) DNR cells/uL ABSOLUTE LYMPHOCYTES (test code = 731-0) 1316 cells/uL ABSOLUTE MONOCYTES (test cod e = 742-7) 400 cells/uL ABSOLUTE EOSINOPHILS (test code = 711-2) 99 cells/uL ABSOLUTE BASOPHILS (test cod e = 704-7) 88 cells/uL ABSOLUTE BLASTS (test code = 07054-9) DNR cells/uL ABSOLUTE NUCLEATED RBC (test code = 82967-2) DNR cells/uL NEUTROPHILS (test code = 770-8) 63.4 % BAND NEUTROPHILS (test code = 764-1) DNR % METAMYELOCYTES (test code = 740-1) DNR % MYELOCYTES (test code = 749-2) DNR % PROMYELOCYTES (test code = 783-1) DNR % LYMPHOCYTES (test code = 736-9) 25.3 % REACTIVE LYMPHOCYTES (test code = 73699-9) DNR % MONOCYTES (test code = 5905-5) 7.7 % EOSINOPHILS (test code = 713-8) 1.9 % BASOPHILS (test code = 706-2) 1.7 % BLASTS (test code = 709-6) DNR % NUCLEATED RBC (test code = 11635-0) DNR /100WBC COMMENT(S) (test code = 8251-1) DNR Jonatan Elisabeth [facility] METABOLIC [id number] 00:00:00* Test Item Value Reference Range Interpretation Comme nts GLUCOSE (test code = 2345-7) 99 mg/dL UREA NITROGEN (BUN) (test code = 3094-0) 16 mg/dL CREATININE (test code = 2160-0) 0.94 mg/dL eGFR NON-AFR. SPANISH (test code = 99230-6) 65 mL/min/1.73m2 eGFR (test code = 15369-3) 76 mL/min/1.73m2 BUN/CREATININE RATIO (test code = 3097-3) NOT APPLICABLE (calc) SODIUM (test code = 2951-2) 139 mmol/L POTASSIUM (test code = 2823-3) 3.7 mmol/L CHLORIDE (test code = 2075-0) 107 mmol/L CARBON DIOXIDE (test code = 8-9) 22 mmol/L CALCIUM (test code = 10716-4) 9.3 mg/dL Jonatan Barber JenaroCBC (INCLUDES DIFF/PLT)2020-05-04 00:00:00* Test Item Value Reference Range Interpretation Comme nts WHITE BLOOD CELL COUNT (test code = 6690-2) 5.2 Thousand/uL RED BLOOD CELL COUNT (test code = 789-8) 4.67 Million/uL HEMOGLOBIN (test code = 718-7) 12.3 g/dL HEMATOCRIT (test code = 4544-3) 39.5 % MCV (test code = 787-2) 84.6 fL MCH (test code = 785-6) 26.3 pg MCHC (test code = 786-4) 31.1 g/dL RDW (test code = 788-0) 25.5 % PLATELET COUNT (test code = 777-3) 129 Thousand/uL MPV (test code = 776-5) 10.2 fL ABSOLUTE NEUTROPHILS (test code = 751-8) 3297 cells/uL ABSOLUTE BAND NEUTROPHILS (test code = 46502-0) DNR cells/uL ABSOLUTE METAMYELOCYTES (christopher t code = 97411-3) DNR cells/uL ABSOLUTE MYELOCYTES (test code = 96159-9) DNR cells/uL ABSOLUTE PROMYELOCYTES (test code = 85963-9) DNR cells/uL ABSOLUTE LYMPHOCYTES (test code = 731-0) 1316 cells/uL ABSOLUTE MONOCYTES (test cod e = 742-7) 400 cells/uL ABSOLUTE EOSINOPHILS (test code = 711-2) 99 cells/uL ABSOLUTE BASOPHILS (test cod e = 704-7) 88 cells/uL ABSOLUTE BLASTS (test code = 97740-4) DNR cells/uL ABSOLUTE NUCLEATED RBC (test code = 00511-7) DNR cells/uL NEUTROPHILS (test code = 770-8) 63.4 % BAND NEUTROPHILS (test code = 764-1) DNR % METAMYELOCYTES (test code = 740-1) DNR % MYELOCYTES (test code = 749-2) DNR % PROMYELOCYTES (test code = 783-1) DNR % LYMPHOCYTES (test code = 736-9) 25.3 % REACTIVE LYMPHOCYTES (test code = 44208-3) DNR % MONOCYTES (test code = 5905-5) 7.7 % EOSINOPHILS (test code = 713-8) 1.9 % BASOPHILS (test code = 706-2) 1.7 % BLASTS (test code = 709-6) DNR % NUCLEATED RBC (test code = 35119-1) DNR /100WBC COMMENT(S) (test code = 8251-1) DNR Jonatan EasonBASIC METABOLIC [id number] 00:00:00* Test Item Value Reference Range Interpretation Comme nts GLUCOSE (test code = 2345-7) 99 mg/dL UREA NITROGEN (BUN) (test code = 3094-0) 16 mg/dL CREATININE (test code = 2160-0) 0.94 mg/dL eGFR NON-AFR. SPANISH (test code = 40802-1) 65 mL/min/1.73m2 eGFR (test code = 94023-3) 76 mL/min/1.73m2 BUN/CREATININE RATIO (test code = 3097-3) NOT APPLICABLE (calc) SODIUM (test code = 2951-2) 139 mmol/L POTASSIUM (test code = 2823-3) 3.7 mmol/L CHLORIDE (test code = 2075-0) 107 mmol/L CARBON DIOXIDE (test code = 2028-9) 22 mmol/L CALCIUM (test code = 91361-0) 9.3 mg/dL Jonatan EasonCBC (INCLUDES DIFF/PLT)2020-05-04 00:00:00* Test Item Value Reference Range Interpretation Comme nts WHITE BLOOD CELL COUNT (test code = 6690-2) 5.2 Thousand/uL RED BLOOD CELL COUNT (test code = 789-8) 4.67 Million/uL HEMOGLOBIN (test code = 718-7) 12.3 g/dL HEMATOCRIT (test code = 4544-3) 39.5 % MCV (test code = 787-2) 84.6 fL MCH (test code = 785-6) 26.3 pg MCHC (test code = 786-4) 31.1 g/dL RDW (test code = 788-0) 25.5 % PLATELET COUNT (test code = 777-3) 129 Thousand/uL MPV (test code = 776-5) 10.2 fL ABSOLUTE NEUTROPHILS (test code = 751-8) 3297 cells/uL ABSOLUTE BAND NEUTROPHILS (test code = 71522-8) DNR cells/uL ABSOLUTE METAMYELOCYTES (christopher t code = 10071-5) DNR cells/uL ABSOLUTE MYELOCYTES (test code = 10087-5) DNR cells/uL ABSOLUTE PROMYELOCYTES (test code = 05346-2) DNR cells/uL ABSOLUTE LYMPHOCYTES (test code = 731-0) 1316 cells/uL ABSOLUTE MONOCYTES (test cod e = 742-7) 400 cells/uL ABSOLUTE EOSINOPHILS (test code = 711-2) 99 cells/uL ABSOLUTE BASOPHILS (test cod e = 704-7) 88 cells/uL ABSOLUTE BLASTS (test code = 36872-0) DNR cells/uL ABSOLUTE NUCLEATED RBC (test code = 17021-6) DNR cells/uL NEUTROPHILS (test code = 770-8) 63.4 % BAND NEUTROPHILS (test code = 764-1) DNR % METAMYELOCYTES (test code = 740-1) DNR % MYELOCYTES (test code = 749-2) DNR % PROMYELOCYTES (test code = 783-1) DNR % LYMPHOCYTES (test code = 736-9) 25.3 % REACTIVE LYMPHOCYTES (test code = 78243-9) DNR % MONOCYTES (test code = 5905-5) 7.7 % EOSINOPHILS (test code = 713-8) 1.9 % BASOPHILS (test code = 706-2) 1.7 % BLASTS (test code = 709-6) DNR % NUCLEATED RBC (test code = 80625-3) DNR /100WBC COMMENT(S) (test code = 8251-1) DNR BASIC METABOLIC [id number] 00:00:00* Test Item Value Reference Range Interpretation Comme nts GLUCOSE (test code = 2345-7) 99 mg/dL UREA NITROGEN (BUN) (test code = 3094-0) 16 mg/dL CREATININE (test code = 2160-0) 0.94 mg/dL eGFR NON-AFR. SPANISH (test code = 78100-0) 65 mL/min/1.73m2 eGFR (test code = 02077-8) 76 mL/min/1.73m2 BUN/CREATININE RATIO (test code = 3097-3) NOT APPLICABLE (calc) SODIUM (test code = 2951-2) 139 mmol/L POTASSIUM (test code = 2823-3) 3.7 mmol/L CHLORIDE (test code = 2075-0) 107 mmol/L CARBON DIOXIDE (test code = 8-9) 22 mmol/L CALCIUM (test code = 20526-5) 9.3 mg/dL CBC (INCLUDES DIFF/PLT)2020-05-04 00:00:00* Test Item Value Reference Range Interpretation Comme nts WHITE BLOOD CELL COUNT (test code = 6690-2) 5.2 Thousand/uL RED BLOOD CELL COUNT (test code = 789-8) 4.67 Million/uL HEMOGLOBIN (test code = 718-7) 12.3 g/dL HEMATOCRIT (test code = 4544-3) 39.5 % MCV (test code = 787-2) 84.6 fL MCH (test code = 785-6) 26.3 pg MCHC (test code = 786-4) 31.1 g/dL RDW (test code = 788-0) 25.5 % PLATELET COUNT (test code = 777-3) 129 Thousand/uL MPV (test code = 776-5) 10.2 fL ABSOLUTE NEUTROPHILS (test code = 751-8) 3297 cells/uL ABSOLUTE BAND NEUTROPHILS (test code = 46020-6) DNR cells/uL ABSOLUTE METAMYELOCYTES (christopher t code = 71828-4) DNR cells/uL ABSOLUTE MYELOCYTES (test code = 08627-0) DNR cells/uL ABSOLUTE PROMYELOCYTES (test code = 16603-7) DNR cells/uL ABSOLUTE LYMPHOCYTES (test code = 731-0) 1316 cells/uL ABSOLUTE MONOCYTES (test cod e = 742-7) 400 cells/uL ABSOLUTE EOSINOPHILS (test code = 711-2) 99 cells/uL ABSOLUTE BASOPHILS (test cod e = 704-7) 88 cells/uL ABSOLUTE BLASTS (test code = 97795-1) DNR cells/uL ABSOLUTE NUCLEATED RBC (test code = 44344-1) DNR cells/uL NEUTROPHILS (test code = 770-8) 63.4 % BAND NEUTROPHILS (test code = 764-1) DNR % METAMYELOCYTES (test code = 740-1) DNR % MYELOCYTES (test code = 749-2) DNR % PROMYELOCYTES (test code = 783-1) DNR % LYMPHOCYTES (test code = 736-9) 25.3 % REACTIVE LYMPHOCYTES (test code = 34967-0) DNR % MONOCYTES (test code = 5905-5) 7.7 % EOSINOPHILS (test code = 713-8) 1.9 % BASOPHILS (test code = 706-2) 1.7 % BLASTS (test code = 709-6) DNR % NUCLEATED RBC (test code = 15801-4) DNR /100WBC COMMENT(S) (test code = 8251-1) DNR CBC (INCLUDES DIFF/PLT)2020-05-04 00:00:00* Test Item Value Reference Range Interpretation Comme nts WHITE BLOOD CELL COUNT (test code = 6690-2) 5.2 Thousand/uL RED BLOOD CELL COUNT (test code = 789-8) 4.67 Million/uL HEMOGLOBIN (test code = 718-7) 12.3 g/dL HEMATOCRIT (test code = 4544-3) 39.5 % MCV (test code = 787-2) 84.6 fL MCH (test code = 785-6) 26.3 pg MCHC (test code = 786-4) 31.1 g/dL RDW (test code = 788-0) 25.5 % PLATELET COUNT (test code = 777-3) 129 Thousand/uL MPV (test code = 776-5) 10.2 fL ABSOLUTE NEUTROPHILS (test code = 751-8) 3297 cells/uL ABSOLUTE BAND NEUTROPHILS (test code = 83978-2) DNR cells/uL ABSOLUTE METAMYELOCYTES (christopher t code = 46112-3) DNR cells/uL ABSOLUTE MYELOCYTES (test code = 07849-1) DNR cells/uL ABSOLUTE PROMYELOCYTES (test code = 05739-9) DNR cells/uL ABSOLUTE LYMPHOCYTES (test code = 731-0) 1316 cells/uL ABSOLUTE MONOCYTES (test cod e = 742-7) 400 cells/uL ABSOLUTE EOSINOPHILS (test code = 711-2) 99 cells/uL ABSOLUTE BASOPHILS (test cod e = 704-7) 88 cells/uL ABSOLUTE BLASTS (test code = 84036-8) DNR cells/uL ABSOLUTE NUCLEATED RBC (test code = 52936-7) DNR cells/uL NEUTROPHILS (test code = 770-8) 63.4 % BAND NEUTROPHILS (test code = 764-1) DNR % METAMYELOCYTES (test code = 740-1) DNR % MYELOCYTES (test code = 749-2) DNR % PROMYELOCYTES (test code = 783-1) DNR % LYMPHOCYTES (test code = 736-9) 25.3 % REACTIVE LYMPHOCYTES (test code = 34070-8) DNR % MONOCYTES (test code = 5905-5) 7.7 % EOSINOPHILS (test code = 713-8) 1.9 % BASOPHILS (test code = 706-2) 1.7 % BLASTS (test code = 709-6) DNR % NUCLEATED RBC (test code = 48946-3) DNR /100WBC COMMENT(S) (test code = 8251-1) DNR Jonatan F [facility] METABOLIC [id number] 00:00:00* Test Item Value Reference Range Interpretation Comme nts GLUCOSE (test code = 2345-7) 99 mg/dL UREA NITROGEN (BUN) (test code = 3094-0) 16 mg/dL CREATININE (test code = 2160-0) 0.94 mg/dL eGFR NON-AFR. SPANISH (test code = 23734-7) 65 mL/min/1.73m2 eGFR (test code = 57827-6) 76 mL/min/1.73m2 BUN/CREATININE RATIO (test code = 3097-3) NOT APPLICABLE (calc) SODIUM (test code = 2951-2) 139 mmol/L POTASSIUM (test code = 2823-3) 3.7 mmol/L CHLORIDE (test code = 2075-0) 107 mmol/L CARBON DIOXIDE (test code = 2027-9) 22 mmol/L CALCIUM (test code = 63216-6) 9.3 mg/dL CBC (INCLUDES DIFF/PLT)2020-05-04 00:00:00* Test Item Value Reference Range Interpretation Comme nts WHITE BLOOD CELL COUNT (test code = 6690-2) 5.2 Thousand/uL RED BLOOD CELL COUNT (test code = 789-8) 4.67 Million/uL HEMOGLOBIN (test code = 718-7) 12.3 g/dL HEMATOCRIT (test code = 4544-3) 39.5 % MCV (test code = 787-2) 84.6 fL MCH (test code = 785-6) 26.3 pg MCHC (test code = 786-4) 31.1 g/dL RDW (test code = 788-0) 25.5 % PLATELET COUNT (test code = 777-3) 129 Thousand/uL MPV (test code = 776-5) 10.2 fL ABSOLUTE NEUTROPHILS (test code = 751-8) 3297 cells/uL ABSOLUTE BAND NEUTROPHILS (test code = 89342-1) DNR cells/uL ABSOLUTE METAMYELOCYTES (christopher t code = 96765-9) DNR cells/uL ABSOLUTE MYELOCYTES (test code = 35381-9) DNR cells/uL ABSOLUTE PROMYELOCYTES (test code = 41432-4) DNR cells/uL ABSOLUTE LYMPHOCYTES (test code = 731-0) 1316 cells/uL ABSOLUTE MONOCYTES (test cod e = 742-7) 400 cells/uL ABSOLUTE EOSINOPHILS (test code = 711-2) 99 cells/uL ABSOLUTE BASOPHILS (test cod e = 704-7) 88 cells/uL ABSOLUTE BLASTS (test code = 19823-8) DNR cells/uL ABSOLUTE NUCLEATED RBC (test code = 24822-7) DNR cells/uL NEUTROPHILS (test code = 770-8) 63.4 % BAND NEUTROPHILS (test code = 764-1) DNR % METAMYELOCYTES (test code = 740-1) DNR % MYELOCYTES (test code = 749-2) DNR % PROMYELOCYTES (test code = 783-1) DNR % LYMPHOCYTES (test code = 736-9) 25.3 % REACTIVE LYMPHOCYTES (test code = 28214-0) DNR % MONOCYTES (test code = 5905-5) 7.7 % EOSINOPHILS (test code = 713-8) 1.9 % BASOPHILS (test code = 706-2) 1.7 % BLASTS (test code = 709-6) DNR % NUCLEATED RBC (test code = 27854-2) DNR /100WBC COMMENT(S) (test code = 8251-1) DNR BASIC METABOLIC [id number] 00:00:00* Test Item Value Reference Range Interpretation Comme nts GLUCOSE (test code = 2345-7) 99 mg/dL UREA NITROGEN (BUN) (test code = 3094-0) 16 mg/dL CREATININE (test code = 2160-0) 0.94 mg/dL eGFR NON-AFR. SPANISH (test code = 85436-4) 65 mL/min/1.73m2 eGFR (test code = 40429-5) 76 mL/min/1.73m2 BUN/CREATININE RATIO (test code = 3097-3) NOT APPLICABLE (calc) SODIUM (test code = 2951-2) 139 mmol/L POTASSIUM (test code = 2823-3) 3.7 mmol/L CHLORIDE (test code = 2075-0) 107 mmol/L CARBON DIOXIDE (test code = 2028-9) 22 mmol/L CALCIUM (test code = 58933-8) 9.3 mg/dL CBC (INCLUDES DIFF/PLT)2020-05-04 00:00:00* Test Item Value Reference Range Interpretation Comme nts WHITE BLOOD CELL COUNT (test code = 6690-2) 5.2 Thousand/uL RED BLOOD CELL COUNT (test code = 789-8) 4.67 Million/uL HEMOGLOBIN (test code = 718-7) 12.3 g/dL HEMATOCRIT (test code = 4544-3) 39.5 % MCV (test code = 787-2) 84.6 fL MCH (test code = 785-6) 26.3 pg MCHC (test code = 786-4) 31.1 g/dL RDW (test code = 788-0) 25.5 % PLATELET COUNT (test code = 777-3) 129 Thousand/uL MPV (test code = 776-5) 10.2 fL ABSOLUTE NEUTROPHILS (test code = 751-8) 3297 cells/uL ABSOLUTE BAND NEUTROPHILS (test code = 56189-1) DNR cells/uL ABSOLUTE METAMYELOCYTES (christopher t code = 54309-8) DNR cells/uL ABSOLUTE MYELOCYTES (test code = 69375-8) DNR cells/uL ABSOLUTE PROMYELOCYTES (test code = 16052-8) DNR cells/uL ABSOLUTE LYMPHOCYTES (test code = 731-0) 1316 cells/uL ABSOLUTE MONOCYTES (test cod e = 742-7) 400 cells/uL ABSOLUTE EOSINOPHILS (test code = 711-2) 99 cells/uL ABSOLUTE BASOPHILS (test cod e = 704-7) 88 cells/uL ABSOLUTE BLASTS (test code = 11542-8) DNR cells/uL ABSOLUTE NUCLEATED RBC (test code = 90790-1) DNR cells/uL NEUTROPHILS (test code = 770-8) 63.4 % BAND NEUTROPHILS (test code = 764-1) DNR % METAMYELOCYTES (test code = 740-1) DNR % MYELOCYTES (test code = 749-2) DNR % PROMYELOCYTES (test code = 783-1) DNR % LYMPHOCYTES (test code = 736-9) 25.3 % REACTIVE LYMPHOCYTES (test code = 97849-9) DNR % MONOCYTES (test code = 5905-5) 7.7 % EOSINOPHILS (test code = 713-8) 1.9 % BASOPHILS (test code = 706-2) 1.7 % BLASTS (test code = 709-6) DNR % NUCLEATED RBC (test code = 73331-0) DNR /100WBC COMMENT(S) (test code = 8251-1) DNR BASIC METABOLIC [id number] 00:00:00* Test Item Value Reference Range Interpretation Comme nts GLUCOSE (test code = 2345-7) 99 mg/dL UREA NITROGEN (BUN) (test code = 3094-0) 16 mg/dL CREATININE (test code = 2160-0) 0.94 mg/dL eGFR NON-AFR. SPANISH (test code = 43047-8) 65 mL/min/1.73m2 eGFR (test code = 58759-6) 76 mL/min/1.73m2 BUN/CREATININE RATIO (test code = 3097-3) NOT APPLICABLE (calc) SODIUM (test code = 2951-2) 139 mmol/L POTASSIUM (test code = 2823-3) 3.7 mmol/L CHLORIDE (test code = 2075-0) 107 mmol/L CARBON DIOXIDE (test code = 8-9) 22 mmol/L CALCIUM (test code = 08700-3) 9.3 mg/dL [id number] 00:00:00* Test Item Value Reference Range Interpretation Comme nts TSH, THIRD GENERATION (test code = 2821) 1.200 UIU/ML COMPREHENSIVE METABOLIC [id number] 00:00:00* Test Item Value Reference Range Interpretation Comme nts GLUCOSE (test code = 2217) 100 MG/DL BUN (test code = 2208) 16 MG/DL CREATININE (test code = 2214) 0.78 MG/DL eGFR AMER. (test cod e = 38373) 95 ML/MIN/1.73 eGFR NON- AMER. (test code = 87478) 82 ML/MIN/1.73 CALC BUN/CREAT (test code = 2235) 21 RATIO SODIUM (test code = 2231) 141 MEQ/L POTASSIUM (test code = 2228) 3.5 MEQ/L CHLORIDE (test code = 2215) 105 MEQ/L CARBON DIOXIDE (test code = 2206) 23 MEQ/L CALCIUM (test code = 2209) 9.2 MG/DL PROTEIN, TOTAL (test code = 2229) 7.0 G/DL ALBUMIN (test code = 2201) 4.4 G/DL CALC GLOBULIN (test code = 2240) 2.6 G/DL CALC A/G RATIO (test code = 2234) 1.7 RATIO BILIRUBIN, TOTAL (test code = 2207) 0.6 MG/DL ALKALINE PHOSPHATASE (test code = 2204) 122 U/L AST (test code = 2218) 22 U/L ALT (test code = 2219) 18 U/L [id number] 00:00:00* Test Item Value Reference Range Interpretation Comme nts TSH, THIRD GENERATION (test code = 2821) 1.200 UIU/ML [id number] 00:00:00* Test Item Value Reference Range Interpretation Comme nts TSH, THIRD GENERATION (test code = 2821) 1.200 UIU/ML COMPREHENSIVE METABOLIC [id number] 00:00:00* Test Item Value Reference Range Interpretation Comme nts GLUCOSE (test code = 2217) 100 MG/DL BUN (test code = 2208) 16 MG/DL CREATININE (test code = 2214) 0.78 MG/DL eGFR AMER. (test cod e = 37948) 95 ML/MIN/1.73 eGFR NON- AMER. (test code = 01091) 82 ML/MIN/1.73 CALC BUN/CREAT (test code = 2235) 21 RATIO SODIUM (test code = 2231) 141 MEQ/L POTASSIUM (test code = 2228) 3.5 MEQ/L CHLORIDE (test code = 2215) 105 MEQ/L CARBON DIOXIDE (test code = 2206) 23 MEQ/L CALCIUM (test code = 2209) 9.2 MG/DL PROTEIN, TOTAL (test code = 2229) 7.0 G/DL ALBUMIN (test code = 2201) 4.4 G/DL CALC GLOBULIN (test code = 2240) 2.6 G/DL CALC A/G RATIO (test code = 2234) 1.7 RATIO BILIRUBIN, TOTAL (test code = 2207) 0.6 MG/DL ALKALINE PHOSPHATASE (test code = 2204) 122 U/L AST (test code = 2218) 22 U/L ALT (test code = 2219) 18 U/L [id number] 00:00:00* Test Item Value Reference Range Interpretation Comme nts TSH, THIRD GENERATION (test code = 2821) 1.200 UIU/ML Jonatan F AustinCOMPREHENSIVE METABOLIC [id number] 00:00:00* Test Item Value Reference Range Interpretation Comme nts GLUCOSE (test code = 2217) 100 MG/DL BUN (test code = 2208) 16 MG/DL CREATININE (test code = 2214) 0.78 MG/DL eGFR AMER. (test cod e = 47646) 95 ML/MIN/1.73 eGFR NON- AMER. (test code = 48874) 82 ML/MIN/1.73 CALC BUN/CREAT (test code = 2235) 21 RATIO SODIUM (test code = 2231) 141 MEQ/L POTASSIUM (test code = 2228) 3.5 MEQ/L CHLORIDE (test code = 2215) 105 MEQ/L CARBON DIOXIDE (test code = 2206) 23 MEQ/L CALCIUM (test code = 2209) 9.2 MG/DL PROTEIN, TOTAL (test code = 2229) 7.0 G/DL ALBUMIN (test code = 2201) 4.4 G/DL CALC GLOBULIN (test code = 2240) 2.6 G/DL CALC A/G RATIO (test code = 2234) 1.7 RATIO BILIRUBIN, TOTAL (test code = 2207) 0.6 MG/DL ALKALINE PHOSPHATASE (test code = 2204) 122 U/L AST (test code = 2218) 22 U/L ALT (test code = 2219) 18 U/L COMPREHENSIVE METABOLIC [id number] 00:00:00* Test Item Value Reference Range Interpretation Comme nts GLUCOSE (test code = 2217) 100 MG/DL BUN (test code = 2208) 16 MG/DL CREATININE (test code = 2214) 0.78 MG/DL eGFR AMER. (test cod e = 05258) 95 ML/MIN/1.73 eGFR NON- AMER. (test code = 22129) 82 ML/MIN/1.73 CALC BUN/CREAT (test code = 2235) 21 RATIO SODIUM (test code = 2231) 141 MEQ/L POTASSIUM (test code = 2228) 3.5 MEQ/L CHLORIDE (test code = 2215) 105 MEQ/L CARBON DIOXIDE (test code = 2206) 23 MEQ/L CALCIUM (test code = 2209) 9.2 MG/DL PROTEIN, TOTAL (test code = 2229) 7.0 G/DL ALBUMIN (test code = 2201) 4.4 G/DL CALC GLOBULIN (test code = 2240) 2.6 G/DL CALC A/G RATIO (test code = 2234) 1.7 RATIO BILIRUBIN, TOTAL (test code = 2207) 0.6 MG/DL ALKALINE PHOSPHATASE (test code = 2204) 122 U/L AST (test code = 2218) 22 U/L ALT (test code = 2219) 18 U/L Jonatan [id number] 00:00:00* Test Item Value Reference Range Interpretation Comme nts TSH, THIRD GENERATION (test code = 2821) 1.200 UIU/ML Jonatan EasonCOMPREHENSIVE METABOLIC [id number] 00:00:00* Test Item Value Reference Range Interpretation Comme nts GLUCOSE (test code = 2217) 100 MG/DL BUN (test code = 2208) 16 MG/DL CREATININE (test code = 2214) 0.78 MG/DL eGFR AMER. (test cod e = 92514) 95 ML/MIN/1.73 eGFR NON- AMER. (test code = 65322) 82 ML/MIN/1.73 CALC BUN/CREAT (test code = 2235) 21 RATIO SODIUM (test code = 2231) 141 MEQ/L POTASSIUM (test code = 2228) 3.5 MEQ/L CHLORIDE (test code = 2215) 105 MEQ/L CARBON DIOXIDE (test code = 2206) 23 MEQ/L CALCIUM (test code = 2209) 9.2 MG/DL PROTEIN, TOTAL (test code = 2229) 7.0 G/DL ALBUMIN (test code = 2201) 4.4 G/DL CALC GLOBULIN (test code = 2240) 2.6 G/DL CALC A/G RATIO (test code = 2234) 1.7 RATIO BILIRUBIN, TOTAL (test code = 2207) 0.6 MG/DL ALKALINE PHOSPHATASE (test code = 2204) 122 U/L AST (test code = 2218) 22 U/L ALT (test code = 2219) 18 U/L Jonatan [id number] 00:00:00* Test Item Value Reference Range Interpretation Comme nts TSH, THIRD GENERATION (test code = 2821) 1.200 UIU/ML COMPREHENSIVE METABOLIC [id number] 00:00:00* Test Item Value Reference Range Interpretation Comme nts GLUCOSE (test code = 2217) 100 MG/DL BUN (test code = 2208) 16 MG/DL CREATININE (test code = 2214) 0.78 MG/DL eGFR AMER. (test cod e = 61215) 95 ML/MIN/1.73 eGFR NON- AMER. (test code = 46306) 82 ML/MIN/1.73 CALC BUN/CREAT (test code = 2235) 21 RATIO SODIUM (test code = 2231) 141 MEQ/L POTASSIUM (test code = 2228) 3.5 MEQ/L CHLORIDE (test code = 2215) 105 MEQ/L CARBON DIOXIDE (test code = 2206) 23 MEQ/L CALCIUM (test code = 2209) 9.2 MG/DL PROTEIN, TOTAL (test code = 2229) 7.0 G/DL ALBUMIN (test code = 2201) 4.4 G/DL CALC GLOBULIN (test code = 2240) 2.6 G/DL CALC A/G RATIO (test code = 2234) 1.7 RATIO BILIRUBIN, TOTAL (test code = 2207) 0.6 MG/DL ALKALINE PHOSPHATASE (test code = 2204) 122 U/L AST (test code = 2218) 22 U/L ALT (test code = 2219) 18 U/L [id number] 00:00:00* Test Item Value Reference Range Interpretation Comme nts TSH, THIRD GENERATION (test code = 2821) 1.200 UIU/ML Jonatan [id number] 00:00:00* Test Item Value Reference Range Interpretation Comme nts TSH, THIRD GENERATION (test code = 2821) 1.200 UIU/ML COMPREHENSIVE METABOLIC [id number] 00:00:00* Test Item Value Reference Range Interpretation Comme nts GLUCOSE (test code = 2217) 100 MG/DL BUN (test code = 2208) 16 MG/DL CREATININE (test code = 2214) 0.78 MG/DL eGFR AMER. (test cod e = 40123) 95 ML/MIN/1.73 eGFR NON- AMER. (test code = 67721) 82 ML/MIN/1.73 CALC BUN/CREAT (test code = 2235) 21 RATIO SODIUM (test code = 2231) 141 MEQ/L POTASSIUM (test code = 2228) 3.5 MEQ/L CHLORIDE (test code = 2215) 105 MEQ/L CARBON DIOXIDE (test code = 2206) 23 MEQ/L CALCIUM (test code = 2209) 9.2 MG/DL PROTEIN, TOTAL (test code = 2229) 7.0 G/DL ALBUMIN (test code = 2201) 4.4 G/DL CALC GLOBULIN (test code = 2240) 2.6 G/DL CALC A/G RATIO (test code = 2234) 1.7 RATIO BILIRUBIN, TOTAL (test code = 2207) 0.6 MG/DL ALKALINE PHOSPHATASE (test code = 2204) 122 U/L AST (test code = 2218) 22 U/L ALT (test code = 2219) 18 U/L [id number] 00:00:00* Test Item Value Reference Range Interpretation Comme nts TSH, THIRD GENERATION (test code = 2821) 1.200 UIU/ML COMPREHENSIVE METABOLIC [id number] 00:00:00* Test Item Value Reference Range Interpretation Comme nts GLUCOSE (test code = 2217) 100 MG/DL BUN (test code = 2208) 16 MG/DL CREATININE (test code = 2214) 0.78 MG/DL eGFR AMER. (test cod e = 36060) 95 ML/MIN/1.73 eGFR NON- AMER. (test code = 84472) 82 ML/MIN/1.73 CALC BUN/CREAT (test code = 2235) 21 RATIO SODIUM (test code = 2231) 141 MEQ/L POTASSIUM (test code = 2228) 3.5 MEQ/L CHLORIDE (test code = 2215) 105 MEQ/L CARBON DIOXIDE (test code = 2206) 23 MEQ/L CALCIUM (test code = 2209) 9.2 MG/DL PROTEIN, TOTAL (test code = 2229) 7.0 G/DL ALBUMIN (test code = 2201) 4.4 G/DL CALC GLOBULIN (test code = 2240) 2.6 G/DL CALC A/G RATIO (test code = 2234) 1.7 RATIO BILIRUBIN, TOTAL (test code = 2207) 0.6 MG/DL ALKALINE PHOSPHATASE (test code = 2204) 122 U/L AST (test code = 2218) 22 U/L ALT (test code = 2219) 18 U/L [id number] 00:00:00* Test Item Value Reference Range Interpretation Comme nts TSH, THIRD GENERATION (test code = 2821) 1.200 UIU/ML COMPREHENSIVE METABOLIC [id number] 00:00:00* Test Item Value Reference Range Interpretation Comme nts GLUCOSE (test code = 2217) 100 MG/DL BUN (test code = 2208) 16 MG/DL CREATININE (test code = 2214) 0.78 MG/DL eGFR AMER. (test cod e = 03599) 95 ML/MIN/1.73 eGFR NON- AMER. (test code = 77268) 82 ML/MIN/1.73 CALC BUN/CREAT (test code = 2235) 21 RATIO SODIUM (test code = 2231) 141 MEQ/L POTASSIUM (test code = 2228) 3.5 MEQ/L CHLORIDE (test code = 2215) 105 MEQ/L CARBON DIOXIDE (test code = 2206) 23 MEQ/L CALCIUM (test code = 2209) 9.2 MG/DL PROTEIN, TOTAL (test code = 2229) 7.0 G/DL ALBUMIN (test code = 2201) 4.4 G/DL CALC GLOBULIN (test code = 2240) 2.6 G/DL CALC A/G RATIO (test code = 2234) 1.7 RATIO BILIRUBIN, TOTAL (test code = 2207) 0.6 MG/DL ALKALINE PHOSPHATASE (test code = 2204) 122 U/L AST (test code = 2218) 22 U/L ALT (test code = 2219) 18 U/L COMPREHENSIVE METABOLIC [id number] 00:00:00* Test Item Value Reference Range Interpretation Comme nts GLUCOSE (test code = 2217) 100 MG/DL BUN (test code = 2208) 16 MG/DL CREATININE (test code = 2214) 0.78 MG/DL eGFR AMER. (test cod e = 29686) 95 ML/MIN/1.73 eGFR NON- AMER. (test code = 83700) 82 ML/MIN/1.73 CALC BUN/CREAT (test code = 2235) 21 RATIO SODIUM (test code = 2231) 141 MEQ/L POTASSIUM (test code = 2228) 3.5 MEQ/L CHLORIDE (test code = 2215) 105 MEQ/L CARBON DIOXIDE (test code = 2206) 23 MEQ/L CALCIUM (test code = 2209) 9.2 MG/DL PROTEIN, TOTAL (test code = 2229) 7.0 G/DL ALBUMIN (test code = 2201) 4.4 G/DL CALC GLOBULIN (test code = 2240) 2.6 G/DL CALC A/G RATIO (test code = 2234) 1.7 RATIO BILIRUBIN, TOTAL (test code = 2207) 0.6 MG/DL ALKALINE PHOSPHATASE (test code = 2204) 122 U/L AST (test code = 2218) 22 U/L ALT (test code = 2219) 18 U/L Jonatan Barber [id number] 00:00:00* Test Item Value Reference Range Interpretation Comme nts TSH, THIRD GENERATION (test code = 2821) 0.332 UIU/ML [id number] 00:00:00* Test Item Value Reference Range Interpretation Comme nts TSH, THIRD GENERATION (test code = 2821) 0.332 UIU/ML [id number] 00:00:00* Test Item Value Reference Range Interpretation Comme nts TSH, THIRD GENERATION (test code = 2821) 0.332 UIU/ML [id number] 00:00:00* Test Item Value Reference Range Interpretation Comme nts TSH, THIRD GENERATION (test code = 2821) 0.332 UIU/ML Jonatan F [id number] 00:00:00* Test Item Value Reference Range Interpretation Comme nts TSH, THIRD GENERATION (test code = 2821) 0.332 UIU/ML Jonatan F [id number] 00:00:00* Test Item Value Reference Range Interpretation Comme nts TSH, THIRD GENERATION (test code = 2821) 0.332 UIU/ML Jonatan F [id number] 00:00:00* Test Item Value Reference Range Interpretation Comme nts TSH, THIRD GENERATION (test code = 2821) 0.332 UIU/ML [id number] 00:00:00* Test Item Value Reference Range Interpretation Comme nts TSH, THIRD GENERATION (test code = 2821) 0.332 UIU/ML [id number] 00:00:00* Test Item Value Reference Range Interpretation Comme nts TSH, THIRD GENERATION (test code = 2821) 0.332 UIU/ML [id number] 00:00:00* Test Item Value Reference Range Interpretation Comme nts TSH, THIRD GENERATION (test code = 2821) 0.332 UIU/ML COMPREHENSIVE METABOLIC [id number] 00:00:00* Test Item Value Reference Range Interpretation Comme nts GLUCOSE (test code = 2217) 82 MG/DL BUN (test code = 2208) 9 MG/DL CREATININE (test code = 2214) 0.50 MG/DL eGFR AMER. (test cod e = 07744) 123 ML/MIN/1.73 eGFR NON- AMER. (test code = 38103) 106 ML/MIN/1.73 CALC BUN/CREAT (test code = 2235) 18 RATIO SODIUM (test code = 2231) 142 MEQ/L POTASSIUM (test code = 2228) 3.7 MEQ/L CHLORIDE (test code = 2215) 107 MEQ/L CARBON DIOXIDE (test code = 2206) 24 MEQ/L CALCIUM (test code = 2209) 8.9 MG/DL PROTEIN, TOTAL (test code = 2229) 6.9 G/DL ALBUMIN (test code = 2201) 3.8 G/DL CALC GLOBULIN (test code = 2240) 3.1 G/DL CALC A/G RATIO (test code = 2234) 1.2 RATIO BILIRUBIN, TOTAL (test code = 2207) 0.9 MG/DL ALKALINE PHOSPHATASE (test code = 2204) 160 U/L AST (test code = 2218) 90 U/L ALT (test code = 2219) 50 U/L HIV AB/AG COMBO RFLX [id number] 00:00:00* Test Item Value Reference Range Interpretation Comme nts HIV 1/2 4TH GEN, RFLX CONF ( test code = 3514) NON-REACTIVE COMPREHENSIVE METABOLIC [id number] 00:00:00* Test Item Value Reference Range Interpretation Comme nts GLUCOSE (test code = 2217) 82 MG/DL BUN (test code = 2208) 9 MG/DL CREATININE (test code = 2214) 0.50 MG/DL eGFR AMER. (test cod e = 58446) 123 ML/MIN/1.73 eGFR NON- AMER. (test code = 49164) 106 ML/MIN/1.73 CALC BUN/CREAT (test code = 2235) 18 RATIO SODIUM (test code = 2231) 142 MEQ/L POTASSIUM (test code = 2228) 3.7 MEQ/L CHLORIDE (test code = 2215) 107 MEQ/L CARBON DIOXIDE (test code = 2206) 24 MEQ/L CALCIUM (test code = 2209) 8.9 MG/DL PROTEIN, TOTAL (test code = 2229) 6.9 G/DL ALBUMIN (test code = 2201) 3.8 G/DL CALC GLOBULIN (test code = 2240) 3.1 G/DL CALC A/G RATIO (test code = 2234) 1.2 RATIO BILIRUBIN, TOTAL (test code = 2207) 0.9 MG/DL ALKALINE PHOSPHATASE (test code = 2204) 160 U/L AST (test code = 2218) 90 U/L ALT (test code = 2219) 50 U/L [id number] 00:00:00* Test Item Value Reference Range Interpretation Comme nts TSH, THIRD GENERATION (test code = 2821) 1.020 UIU/ML HEPATITIS B SURFACE [id number] 00:00:00* Test Item Value Reference Range Interpretation Comme nts HEPATITIS B SURFACE AB (test code = 2737) NON-REACTIVE HEPATITIS A TOTAL AB REFLEX TO [id number] 00:00:00* Test Item Value Reference Range Interpretation Comme nts HEPATITIS A TOTAL AB (test c ode = 2725) REACTIVE Jonatan EasonHIV AB/AG COMBO RFLX [id number] 00:00:00* Test Item Value Reference Range Interpretation Comme nts HIV 1/2 4TH GEN, RFLX CONF ( test code = 3514) NON-REACTIVE AFP, TUMOR [id number] 00:00:00* Test Item Value Reference Range Interpretation Comme nts AFP, TUMOR MARKER (test code = 87224) 3.7 NG/ML AFP, TUMOR [id number] 00:00:00* Test Item Value Reference Range Interpretation Comme nts AFP, TUMOR MARKER (test code = 74914) 3.7 NG/ML Jonatan EasonHEPATITIS A TOTAL AB REFLEX TO [id number] 00:00:00* Test Item Value Reference Range Interpretation Comme nts HEPATITIS A TOTAL AB (test c ode = 2725) REACTIVE HEPATITIS C [id number] 00:00:00* Test Item Value Reference Range Interpretation Comme nts HEPATITIS C ANTIBODY (test c ode = 4675) NON-REACTIVE HCV INDEX (test code = 43386) 0.11 HEPATITIS A IgM [REFLEX]2018-12-03 00:00:00* Test Item Value Reference Range Interpretation Comme nts HEPATITIS A IgM (test code = 2728) NON-REACTIVE HEPATITIS B SURFACE [id number] 00:00:00* Test Item Value Reference Range Interpretation Comme nts HEPATITIS B SURFACE AB (test code = 2737) NON-REACTIVE HIV AB/AG COMBO RFLX [id number] 00:00:00* Test Item Value Reference Range Interpretation Comme nts HIV 1/2 4TH GEN, RFLX CONF ( test code = 3514) NON-REACTIVE HEPATITIS C [id number] 00:00:00* Test Item Value Reference Range Interpretation Comme nts HEPATITIS C ANTIBODY (test c ode = 4675) NON-REACTIVE HCV INDEX (test code = 26766) 0.11 Jonatan EasonCOMPREHENSIVE METABOLIC [id number] 00:00:00* Test Item Value Reference Range Interpretation Comme nts GLUCOSE (test code = 2217) 82 MG/DL BUN (test code = 2208) 9 MG/DL CREATININE (test code = 2214) 0.50 MG/DL eGFR AMER. (test cod e = 94738) 123 ML/MIN/1.73 eGFR NON- AMER. (test code = 38629) 106 ML/MIN/1.73 CALC BUN/CREAT (test code = 2235) 18 RATIO SODIUM (test code = 2231) 142 MEQ/L POTASSIUM (test code = 2228) 3.7 MEQ/L CHLORIDE (test code = 2215) 107 MEQ/L CARBON DIOXIDE (test code = 2206) 24 MEQ/L CALCIUM (test code = 2209) 8.9 MG/DL PROTEIN, TOTAL (test code = 2229) 6.9 G/DL ALBUMIN (test code = 2201) 3.8 G/DL CALC GLOBULIN (test code = 2240) 3.1 G/DL CALC A/G RATIO (test code = 2234) 1.2 RATIO BILIRUBIN, TOTAL (test code = 2207) 0.9 MG/DL ALKALINE PHOSPHATASE (test code = 2204) 160 U/L AST (test code = 2218) 90 U/L ALT (test code = 2219) 50 U/L [id number] 00:00:00* Test Item Value Reference Range Interpretation Comme nts TSH, THIRD GENERATION (test code = 2821) 1.020 UIU/ML HEPATITIS A IgM [REFLEX]2018-12-03 00:00:00* Test Item Value Reference Range Interpretation Comme nts HEPATITIS A IgM (test code = 2728) NON-REACTIVE Jonatan Barber AustinHEPATITIS B SURFACE [id number] 00:00:00* Test Item Value Reference Range Interpretation Comme nts HEPATITIS B SURFACE AB (test code = 2737) NON-REACTIVE AFP, TUMOR [id number] 00:00:00* Test Item Value Reference Range Interpretation Comme nts AFP, TUMOR MARKER (test code = 87722) 3.7 NG/ML HEPATITIS A TOTAL AB REFLEX TO [id number] 00:00:00* Test Item Value Reference Range Interpretation Comme nts HEPATITIS A TOTAL AB (test c ode = 6975) REACTIVE COMPREHENSIVE METABOLIC [id number] 00:00:00* Test Item Value Reference Range Interpretation Comme nts GLUCOSE (test code = 2217) 82 MG/DL BUN (test code = 2208) 9 MG/DL CREATININE (test code = 2214) 0.50 MG/DL eGFR AMER. (test cod e = 12631) 123 ML/MIN/1.73 eGFR NON- AMER. (test code = 38822) 106 ML/MIN/1.73 CALC BUN/CREAT (test code = 2235) 18 RATIO SODIUM (test code = 2231) 142 MEQ/L POTASSIUM (test code = 2228) 3.7 MEQ/L CHLORIDE (test code = 2215) 107 MEQ/L CARBON DIOXIDE (test code = 2206) 24 MEQ/L CALCIUM (test code = 2209) 8.9 MG/DL PROTEIN, TOTAL (test code = 2229) 6.9 G/DL ALBUMIN (test code = 2201) 3.8 G/DL CALC GLOBULIN (test code = 2240) 3.1 G/DL CALC A/G RATIO (test code = 2234) 1.2 RATIO BILIRUBIN, TOTAL (test code = 2207) 0.9 MG/DL ALKALINE PHOSPHATASE (test code = 2204) 160 U/L AST (test code = 2218) 90 U/L ALT (test code = 2219) 50 U/L Jonatan Barber AustinHIV AB/AG COMBO RFLX [id number] 00:00:00* Test Item Value Reference Range Interpretation Comme nts HIV 1/2 4TH GEN, RFLX CONF ( test code = 3514) NON-REACTIVE Jonatan EasonHEPATITIS C [id number] 00:00:00* Test Item Value Reference Range Interpretation Comme nts HEPATITIS C ANTIBODY (test c ode = 4676) NON-REACTIVE HCV INDEX (test code = 25114) 0.11 HEPATITIS A IgM [REFLEX]2018-12-03 00:00:00* Test Item Value Reference Range Interpretation Comme nts HEPATITIS A IgM (test code = 2728) NON-REACTIVE [id number] 00:00:00* Test Item Value Reference Range Interpretation Comme nts TSH, THIRD GENERATION (test code = 2821) 1.020 UIU/ML Jonatan EasonHEPATITIS B SURFACE [id number] 00:00:00* Test Item Value Reference Range Interpretation Comme nts HEPATITIS B SURFACE AB (test code = 2737) NON-REACTIVE Jonatan EasonHEPATITIS A TOTAL AB REFLEX TO [id number] 00:00:00* Test Item Value Reference Range Interpretation Comme nts HEPATITIS A TOTAL AB (test c ode = 2725) REACTIVE Jonatan EasonAFP, TUMOR [id number] 00:00:00* Test Item Value Reference Range Interpretation Comme nts AFP, TUMOR MARKER (test code = 71609) 3.7 NG/ML Jonatan EasonHEPATITIS C [id number] 00:00:00* Test Item Value Reference Range Interpretation Comme nts HEPATITIS C ANTIBODY (test c ode = 4675) NON-REACTIVE HCV INDEX (test code = 64528) 0.11 Jonatan EasonHEPATITIS A IgM [REFLEX]2018-12-03 00:00:00* Test Item Value Reference Range Interpretation Comme nts HEPATITIS A IgM (test code = 2728) NON-REACTIVE Jonatan EasonHIV AB/AG COMBO RFLX [id number] 00:00:00* Test Item Value Reference Range Interpretation Comme nts HIV 1/2 4TH GEN, RFLX CONF ( test code = 3514) NON-REACTIVE Jonatan Barber AustinCOMPREHENSIVE METABOLIC [id number] 00:00:00* Test Item Value Reference Range Interpretation Comme nts GLUCOSE (test code = 2217) 82 MG/DL BUN (test code = 2208) 9 MG/DL CREATININE (test code = 2214) 0.50 MG/DL eGFR AMER. (test cod e = 16238) 123 ML/MIN/1.73 eGFR NON- AMER. (test code = 42543) 106 ML/MIN/1.73 CALC BUN/CREAT (test code = 2235) 18 RATIO SODIUM (test code = 2231) 142 MEQ/L POTASSIUM (test code = 2228) 3.7 MEQ/L CHLORIDE (test code = 2215) 107 MEQ/L CARBON DIOXIDE (test code = 2206) 24 MEQ/L CALCIUM (test code = 2209) 8.9 MG/DL PROTEIN, TOTAL (test code = 2229) 6.9 G/DL ALBUMIN (test code = 2201) 3.8 G/DL CALC GLOBULIN (test code = 2240) 3.1 G/DL CALC A/G RATIO (test code = 2234) 1.2 RATIO BILIRUBIN, TOTAL (test code = 2207) 0.9 MG/DL ALKALINE PHOSPHATASE (test code = 220) 160 U/L AST (test code = 221) 90 U/L ALT (test code = 221) 50 U/L Jonatan EasonHEPATITIS B SURFACE [id number] 00:00:00* Test Item Value Reference Range Interpretation Comme nts HEPATITIS B SURFACE AB (test code = 2737) NON-REACTIVE Jonatan [id number] 00:00:00* Test Item Value Reference Range Interpretation Comme nts TSH, THIRD GENERATION (test code = 2821) 1.020 UIU/ML Jonatan EasonHEPATITIS A TOTAL AB REFLEX TO [id number] 00:00:00* Test Item Value Reference Range Interpretation Comme nts HEPATITIS A TOTAL AB (test c ode = 2725) REACTIVE Jonatan EasonAFP, TUMOR [id number] 00:00:00* Test Item Value Reference Range Interpretation Comme nts AFP, TUMOR MARKER (test code = 03348) 3.7 NG/ML Jonatan EasonHEPATITIS C [id number] 00:00:00* Test Item Value Reference Range Interpretation Comme nts HEPATITIS C ANTIBODY (test c ode = 4675) NON-REACTIVE HCV INDEX (test code = 03199) 0.11 Jonatan EasonHEPATITIS A IgM [REFLEX]2018-12-03 00:00:00* Test Item Value Reference Range Interpretation Comme nts HEPATITIS A IgM (test code = 2728) NON-REACTIVE Jonatan EasonHIV AB/AG COMBO RFLX [id number] 00:00:00* Test Item Value Reference Range Interpretation Comme nts HIV 1/2 4TH GEN, RFLX CONF ( test code = 3514) NON-REACTIVE Jonatan [id number] 00:00:00* Test Item Value Reference Range Interpretation Comme nts TSH, THIRD GENERATION (test code = 2821) 1.020 UIU/ML HIV AB/AG COMBO RFLX [id number] 00:00:00* Test Item Value Reference Range Interpretation Comme nts HIV 1/2 4TH GEN, RFLX CONF ( test code = 3514) NON-REACTIVE COMPREHENSIVE METABOLIC [id number] 00:00:00* Test Item Value Reference Range Interpretation Comme nts GLUCOSE (test code = 2217) 82 MG/DL BUN (test code = 2208) 9 MG/DL CREATININE (test code = 2214) 0.50 MG/DL eGFR AMER. (test cod e = 58706) 123 ML/MIN/1.73 eGFR NON- AMER. (test code = 17814) 106 ML/MIN/1.73 CALC BUN/CREAT (test code = 2235) 18 RATIO SODIUM (test code = 2231) 142 MEQ/L POTASSIUM (test code = 2228) 3.7 MEQ/L CHLORIDE (test code = 2215) 107 MEQ/L CARBON DIOXIDE (test code = 2206) 24 MEQ/L CALCIUM (test code = 2209) 8.9 MG/DL PROTEIN, TOTAL (test code = 2229) 6.9 G/DL ALBUMIN (test code = 2201) 3.8 G/DL CALC GLOBULIN (test code = 2240) 3.1 G/DL CALC A/G RATIO (test code = 2234) 1.2 RATIO BILIRUBIN, TOTAL (test code = 2207) 0.9 MG/DL ALKALINE PHOSPHATASE (test code = 2204) 160 U/L AST (test code = 2218) 90 U/L ALT (test code = 2219) 50 U/L HEPATITIS A TOTAL AB REFLEX TO [id number] 00:00:00* Test Item Value Reference Range Interpretation Comme nts HEPATITIS A TOTAL AB (test c ode = 2725) REACTIVE AFP, TUMOR [id number] 00:00:00* Test Item Value Reference Range Interpretation Comme nts AFP, TUMOR MARKER (test code = 88876) 3.7 NG/ML [id number] 00:00:00* Test Item Value Reference Range Interpretation Comme nts TSH, THIRD GENERATION (test code = 2821) 1.020 UIU/ML HEPATITIS B SURFACE [id number] 00:00:00* Test Item Value Reference Range Interpretation Comme nts HEPATITIS B SURFACE AB (test code = 2737) NON-REACTIVE HEPATITIS C [id number] 00:00:00* Test Item Value Reference Range Interpretation Comme nts HEPATITIS C ANTIBODY (test c ode = 4675) NON-REACTIVE HCV INDEX (test code = 86994) 0.11 COMPREHENSIVE METABOLIC [id number] 00:00:00* Test Item Value Reference Range Interpretation Comme nts GLUCOSE (test code = 2217) 82 MG/DL BUN (test code = 2208) 9 MG/DL CREATININE (test code = 2214) 0.50 MG/DL eGFR AMER. (test cod e = 48266) 123 ML/MIN/1.73 eGFR NON- AMER. (test code = 18653) 106 ML/MIN/1.73 CALC BUN/CREAT (test code = 2235) 18 RATIO SODIUM (test code = 2231) 142 MEQ/L POTASSIUM (test code = 2228) 3.7 MEQ/L CHLORIDE (test code = 2215) 107 MEQ/L CARBON DIOXIDE (test code = 2206) 24 MEQ/L CALCIUM (test code = 2209) 8.9 MG/DL PROTEIN, TOTAL (test code = 2229) 6.9 G/DL ALBUMIN (test code = 2201) 3.8 G/DL CALC GLOBULIN (test code = 2240) 3.1 G/DL CALC A/G RATIO (test code = 2234) 1.2 RATIO BILIRUBIN, TOTAL (test code = 2207) 0.9 MG/DL ALKALINE PHOSPHATASE (test code = 2204) 160 U/L AST (test code = 2218) 90 U/L ALT (test code = 2219) 50 U/L Jonatan EasonAFP, TUMOR [id number] 00:00:00* Test Item Value Reference Range Interpretation Comme nts AFP, TUMOR MARKER (test code = 88112) 3.7 NG/ML HEPATITIS A TOTAL AB REFLEX TO [id number] 00:00:00* Test Item Value Reference Range Interpretation Comme nts HEPATITIS A TOTAL AB (test c ode = 2725) REACTIVE HEPATITIS A IgM [REFLEX]2018-12-03 00:00:00* Test Item Value Reference Range Interpretation Comme nts HEPATITIS A IgM (test code = 2728) NON-REACTIVE HEPATITIS C [id number] 00:00:00* Test Item Value Reference Range Interpretation Comme nts HEPATITIS C ANTIBODY (test c ode = 4675) NON-REACTIVE HCV INDEX (test code = 78659) 0.11 HEPATITIS A IgM [REFLEX]2018-12-03 00:00:00* Test Item Value Reference Range Interpretation Comme nts HEPATITIS A IgM (test code = 2728) NON-REACTIVE HIV AB/AG COMBO RFLX [id number] 00:00:00* Test Item Value Reference Range Interpretation Comme nts HIV 1/2 4TH GEN, RFLX CONF ( test code = 3514) NON-REACTIVE COMPREHENSIVE METABOLIC [id number] 00:00:00* Test Item Value Reference Range Interpretation Comme nts GLUCOSE (test code = 2217) 82 MG/DL BUN (test code = 2208) 9 MG/DL CREATININE (test code = 2214) 0.50 MG/DL eGFR AMER. (test cod e = 03074) 123 ML/MIN/1.73 eGFR NON- AMER. (test code = 97636) 106 ML/MIN/1.73 CALC BUN/CREAT (test code = 2235) 18 RATIO SODIUM (test code = 2231) 142 MEQ/L POTASSIUM (test code = 2228) 3.7 MEQ/L CHLORIDE (test code = 2215) 107 MEQ/L CARBON DIOXIDE (test code = 2206) 24 MEQ/L CALCIUM (test code = 2209) 8.9 MG/DL PROTEIN, TOTAL (test code = 2229) 6.9 G/DL ALBUMIN (test code = 2201) 3.8 G/DL CALC GLOBULIN (test code = 2240) 3.1 G/DL CALC A/G RATIO (test code = 2234) 1.2 RATIO BILIRUBIN, TOTAL (test code = 2207) 0.9 MG/DL ALKALINE PHOSPHATASE (test code = 2204) 160 U/L AST (test code = 2218) 90 U/L ALT (test code = 2219) 50 U/L [id number] 00:00:00* Test Item Value Reference Range Interpretation Comme nts TSH, THIRD GENERATION (test code = 2821) 1.020 UIU/ML HEPATITIS B SURFACE [id number] 00:00:00* Test Item Value Reference Range Interpretation Comme nts HEPATITIS B SURFACE AB (test code = 2737) NON-REACTIVE AFP, TUMOR [id number] 00:00:00* Test Item Value Reference Range Interpretation Comme nts AFP, TUMOR MARKER (test code = 20999) 3.7 NG/ML HEPATITIS A TOTAL AB REFLEX TO [id number] 00:00:00* Test Item Value Reference Range Interpretation Comme nts HEPATITIS A TOTAL AB (test c ode = 2725) REACTIVE HEPATITIS C [id number] 00:00:00* Test Item Value Reference Range Interpretation Comme nts HEPATITIS C ANTIBODY (test c ode = 4675) NON-REACTIVE HCV INDEX (test code = 83076) 0.11 HEPATITIS A IgM [REFLEX]2018-12-03 00:00:00* Test Item Value Reference Range Interpretation Comme nts HEPATITIS A IgM (test code = 2728) NON-REACTIVE HIV AB/AG COMBO RFLX [id number] 00:00:00* Test Item Value Reference Range Interpretation Comme nts HIV 1/2 4TH GEN, RFLX CONF ( test code = 3514) NON-REACTIVE COMPREHENSIVE METABOLIC [id number] 00:00:00* Test Item Value Reference Range Interpretation Comme nts GLUCOSE (test code = 2217) 82 MG/DL BUN (test code = 2208) 9 MG/DL CREATININE (test code = 2214) 0.50 MG/DL eGFR AMER. (test cod e = 72726) 123 ML/MIN/1.73 eGFR NON- AMER. (test code = 97298) 106 ML/MIN/1.73 CALC BUN/CREAT (test code = 2235) 18 RATIO SODIUM (test code = 2231) 142 MEQ/L POTASSIUM (test code = 2228) 3.7 MEQ/L CHLORIDE (test code = 2215) 107 MEQ/L CARBON DIOXIDE (test code = 2206) 24 MEQ/L CALCIUM (test code = 2209) 8.9 MG/DL PROTEIN, TOTAL (test code = 2229) 6.9 G/DL ALBUMIN (test code = 2201) 3.8 G/DL CALC GLOBULIN (test code = 2240) 3.1 G/DL CALC A/G RATIO (test code = 2234) 1.2 RATIO BILIRUBIN, TOTAL (test code = 2207) 0.9 MG/DL ALKALINE PHOSPHATASE (test code = 2204) 160 U/L AST (test code = 2218) 90 U/L ALT (test code = 2219) 50 U/L HEPATITIS B SURFACE [id number] 00:00:00* Test Item Value Reference Range Interpretation Comme nts HEPATITIS B SURFACE AB (test code = 2737) NON-REACTIVE Jonatan [id number] 00:00:00* Test Item Value Reference Range Interpretation Comme nts TSH, THIRD GENERATION (test code = 2821) 1.020 UIU/ML HEPATITIS B SURFACE [id number] 00:00:00* Test Item Value Reference Range Interpretation Comme [facility] HEPATITIS B SURFACE AB (test code = 2737) NON-REACTIVE AFP, TUMOR [id number] 00:00:00* Test Item Value Reference Range Interpretation Comme [facility] AFP, TUMOR MARKER (test code = 39484) 3.7 NG/ML HEPATITIS A TOTAL AB REFLEX TO [id number] 00:00:00* Test Item Value Reference Range Interpretation Comme [facility] HEPATITIS A TOTAL AB (test c ode = 2725) REACTIVE HEPATITIS C [id number] 00:00:00* Test Item Value Reference Range Interpretation Comme [facility] HEPATITIS C ANTIBODY (test c ode = 4675) NON-REACTIVE HCV INDEX (test code = 84437) 0.11 HEPATITIS A IgM [REFLEX]2018-12-03 00:00:00* Test Item Value Reference Range Interpretation Comme [facility] HEPATITIS A IgM (test code = 2728) NON-REACTIVE HIV AB/AG COMBO RFLX [id number] 00:00:00* Test Item Value Reference Range Interpretation Comme [facility] HIV 1/2 4TH GEN, RFLX CONF ( test code = 3514) NON-REACTIVE COMPREHENSIVE METABOLIC [id number] 00:00:00* Test Item Value Reference Range Interpretation Comme nts GLUCOSE (test code = 2217) 82 MG/DL BUN (test code = 8) 9 MG/DL CREATININE (test code = 2214) 0.50 MG/DL eGFR AMER. (test cod e = 06064) 123 ML/MIN/1.73 eGFR NON- AMER. (test code = 45008) 106 ML/MIN/1.73 CALC BUN/CREAT (test code = 2235) 18 RATIO SODIUM (test code = 2231) 142 MEQ/L POTASSIUM (test code = 2228) 3.7 MEQ/L CHLORIDE (test code = 2215) 107 MEQ/L CARBON DIOXIDE (test code = 2206) 24 MEQ/L CALCIUM (test code = 2209) 8.9 MG/DL PROTEIN, TOTAL (test code = 2229) 6.9 G/DL ALBUMIN (test code = 2201) 3.8 G/DL CALC GLOBULIN (test code = 2240) 3.1 G/DL CALC A/G RATIO (test code = 2234) 1.2 RATIO BILIRUBIN, TOTAL (test code = 2207) 0.9 MG/DL ALKALINE PHOSPHATASE (test code = 2204) 160 U/L AST (test code = 2218) 90 U/L ALT (test code = 2219) 50 U/L [id number] 00:00:00* Test Item Value Reference Range Interpretation Comme [facility] TSH, THIRD GENERATION (test code = 2821) 1.020 UIU/ML Jonatan [id number] 00:00:00* Test Item Value Reference Range Interpretation Comme [facility] TSH, THIRD GENERATION (test code = 2821) 1.020 UIU/ML HEPATITIS B SURFACE [id number] 00:00:00* Test Item Value Reference Range Interpretation Comme nts HEPATITIS B SURFACE AB (test code = 2737) NON-REACTIVE AFP, TUMOR [id number] 00:00:00* Test Item Value Reference Range Interpretation Comme nts AFP, TUMOR MARKER (test code = 22613) 3.7 NG/ML HEPATITIS A TOTAL AB REFLEX TO [id number] 00:00:00* Test Item Value Reference Range Interpretation Comme [facility] HEPATITIS A TOTAL AB (test c ode = 2725) REACTIVE HEPATITIS C [id number] 00:00:00* Test Item Value Reference Range Interpretation Comme nts HEPATITIS C ANTIBODY (test c ode = 4675) NON-REACTIVE HCV INDEX (test code = 79918) 0.11 HEPATITIS A IgM [REFLEX]2018-12-03 00:00:00* Test Item Value Reference Range Interpretation Comme nts HEPATITIS A IgM (test code = 2728) NON-REACTIVE LIVER (HEPATIC) FUNCTION [id number] 00:00:00* Test Item Value Reference Range Interpretation Comme nts PROTEIN, TOTAL (test code = 2229) 6.9 G/DL ALBUMIN (test code = 2201) 3.9 G/DL BILIRUBIN, TOTAL (test code = 2207) 1.2 MG/DL BILIRUBIN, DIRECT (test code = 2022) 0.5 MG/DL ALKALINE PHOSPHATASE (test c ode = 2204) 152 U/L AST (test code = 2218) 102 U/L ALT (test code = 2219) 54 U/L LIVER (HEPATIC) FUNCTION [id number] 00:00:00* Test Item Value Reference Range Interpretation Comme nts PROTEIN, TOTAL (test code = 2229) 6.9 G/DL ALBUMIN (test code = 2201) 3.9 G/DL BILIRUBIN, TOTAL (test code = 2207) 1.2 MG/DL BILIRUBIN, DIRECT (test code = 2022) 0.5 MG/DL ALKALINE PHOSPHATASE (test c ode = 2204) 152 U/L AST (test code = 2218) 102 U/L ALT (test code = 2219) 54 U/L CBC W/AUTO [id number] 00:00:00* Test Item Value Reference Range Interpretation Comme nts WBC (test code = 1001) 4.7 K/UL RBC (test code = 1002) 3.68 M/UL HEMOGLOBIN (test code = 1003) 11.9 G/DL HEMATOCRIT (test code = 1004) 34.6 % MCV (test code = 1005) 94.0 fL MCH (test code = 1006) 32.3 PG MCHC (test code = 1007) 34.4 G/DL RDW (test code = 1038) 13.1 % NEUTROPHILS (test code = 1008) 49.8 % LYMPHOCYTES (test code = 1010) 35.2 % MONOCYTES (test code = 1011) 11.2 % EOSINOPHILS (test code = 1012) 2.7 % BASOPHILS (test code = 1013) 1.1 % PLATELET COUNT (test code = 1015) 114 K/UL CBC W/AUTO [id number] 00:00:00* Test Item Value Reference Range Interpretation Comme nts WBC (test code = 1001) 4.7 K/UL RBC (test code = 1002) 3.68 M/UL HEMOGLOBIN (test code = 1003) 11.9 G/DL HEMATOCRIT (test code = 1004) 34.6 % MCV (test code = 1005) 94.0 fL MCH (test code = 1006) 32.3 PG MCHC (test code = 1007) 34.4 G/DL RDW (test code = 1038) 13.1 % NEUTROPHILS (test code = 1008) 49.8 % LYMPHOCYTES (test code = 1010) 35.2 % MONOCYTES (test code = 1011) 11.2 % EOSINOPHILS (test code = 1012) 2.7 % BASOPHILS (test code = 1013) 1.1 % PLATELET COUNT (test code = 1015) 114 K/UL LIVER (HEPATIC) FUNCTION [id number] 00:00:00* Test Item Value Reference Range Interpretation Comme nts PROTEIN, TOTAL (test code = 2229) 6.9 G/DL ALBUMIN (test code = 2201) 3.9 G/DL BILIRUBIN, TOTAL (test code = 2207) 1.2 MG/DL BILIRUBIN, DIRECT (test code = 2022) 0.5 MG/DL ALKALINE PHOSPHATASE (test c ode = 2204) 152 U/L AST (test code = 2218) 102 U/L ALT (test code = 2219) 54 U/L CBC W/AUTO [id number] 00:00:00* Test Item Value Reference Range Interpretation Comme nts WBC (test code = 1001) 4.7 K/UL RBC (test code = 1002) 3.68 M/UL HEMOGLOBIN (test code = 1003) 11.9 G/DL HEMATOCRIT (test code = 1004) 34.6 % MCV (test code = 1005) 94.0 fL MCH (test code = 1006) 32.3 PG MCHC (test code = 1007) 34.4 G/DL RDW (test code = 1038) 13.1 % NEUTROPHILS (test code = 1008) 49.8 % LYMPHOCYTES (test code = 1010) 35.2 % MONOCYTES (test code = 1011) 11.2 % EOSINOPHILS (test code = 1012) 2.7 % BASOPHILS (test code = 1013) 1.1 % PLATELET COUNT (test code = 1015) 114 K/UL LIVER (HEPATIC) FUNCTION [id number] 00:00:00* Test Item Value Reference Range Interpretation Comme nts PROTEIN, TOTAL (test code = 2229) 6.9 G/DL ALBUMIN (test code = 2201) 3.9 G/DL BILIRUBIN, TOTAL (test code = 2207) 1.2 MG/DL BILIRUBIN, DIRECT (test code = 2021) 0.5 MG/DL ALKALINE PHOSPHATASE (test c ode = 2204) 152 U/L AST (test code = 2218) 102 U/L ALT (test code = 2219) 54 U/L Jonatan EasonCBC W/AUTO [id number] 00:00:00* Test Item Value Reference Range Interpretation Comme nts WBC (test code = 1001) 4.7 K/UL RBC (test code = 1002) 3.68 M/UL HEMOGLOBIN (test code = 1003) 11.9 G/DL HEMATOCRIT (test code = 1004) 34.6 % MCV (test code = 1005) 94.0 fL MCH (test code = 1006) 32.3 PG MCHC (test code = 1007) 34.4 G/DL RDW (test code = 1038) 13.1 % NEUTROPHILS (test code = 1008) 49.8 % LYMPHOCYTES (test code = 1010) 35.2 % MONOCYTES (test code = 1011) 11.2 % EOSINOPHILS (test code = 1012) 2.7 % BASOPHILS (test code = 1013) 1.1 % PLATELET COUNT (test code = 1015) 114 K/UL Jonatan EasonVER (HEPATIC) FUNCTION [id number] 00:00:00* Test Item Value Reference Range Interpretation Comme nts PROTEIN, TOTAL (test code = 2229) 6.9 G/DL ALBUMIN (test code = 2201) 3.9 G/DL BILIRUBIN, TOTAL (test code = 2207) 1.2 MG/DL BILIRUBIN, DIRECT (test code = 2) 0.5 MG/DL ALKALINE PHOSPHATASE (test c ode = 2204) 152 U/L AST (test code = 2218) 102 U/L ALT (test code = 2219) 54 U/L Jonatan EasonCBC W/AUTO [id number] 00:00:00* Test Item Value Reference Range Interpretation Comme nts WBC (test code = 1001) 4.7 K/UL RBC (test code = 1002) 3.68 M/UL HEMOGLOBIN (test code = 1003) 11.9 G/DL HEMATOCRIT (test code = 1004) 34.6 % MCV (test code = 1005) 94.0 fL MCH (test code = 1006) 32.3 PG MCHC (test code = 1007) 34.4 G/DL RDW (test code = 1038) 13.1 % NEUTROPHILS (test code = 1008) 49.8 % LYMPHOCYTES (test code = 1010) 35.2 % MONOCYTES (test code = 1011) 11.2 % EOSINOPHILS (test code = 1012) 2.7 % BASOPHILS (test code = 1013) 1.1 % PLATELET COUNT (test code = 1015) 114 K/UL Jonatan Barber Ciera (HEPATIC) FUNCTION [id number] 00:00:00* Test Item Value Reference Range Interpretation Comme nts PROTEIN, TOTAL (test code = 2229) 6.9 G/DL ALBUMIN (test code = 2201) 3.9 G/DL BILIRUBIN, TOTAL (test code = 2207) 1.2 MG/DL BILIRUBIN, DIRECT (test code = 2021) 0.5 MG/DL ALKALINE PHOSPHATASE (test c ode = 2204) 152 U/L AST (test code = 2218) 102 U/L ALT (test code = 2219) 54 U/L Jonatan Barber Ciera (HEPATIC) FUNCTION [id number] 00:00:00* Test Item Value Reference Range Interpretation Comme nts PROTEIN, TOTAL (test code = 2229) 6.9 G/DL ALBUMIN (test code = 2201) 3.9 G/DL BILIRUBIN, TOTAL (test code = 2207) 1.2 MG/DL BILIRUBIN, DIRECT (test code = 2022) 0.5 MG/DL ALKALINE PHOSPHATASE (test c ode = 2204) 152 U/L AST (test code = 2218) 102 U/L ALT (test code = 2219) 54 U/L CBC W/AUTO [id number] 00:00:00* Test Item Value Reference Range Interpretation Comme nts WBC (test code = 1001) 4.7 K/UL RBC (test code = 1002) 3.68 M/UL HEMOGLOBIN (test code = 1003) 11.9 G/DL HEMATOCRIT (test code = 1004) 34.6 % MCV (test code = 1005) 94.0 fL MCH (test code = 1006) 32.3 PG MCHC (test code = 1007) 34.4 G/DL RDW (test code = 1038) 13.1 % NEUTROPHILS (test code = 1008) 49.8 % LYMPHOCYTES (test code = 1010) 35.2 % MONOCYTES (test code = 1011) 11.2 % EOSINOPHILS (test code = 1012) 2.7 % BASOPHILS (test code = 1013) 1.1 % PLATELET COUNT (test code = 1015) 114 K/UL LIVER (HEPATIC) FUNCTION [id number] 00:00:00* Test Item Value Reference Range Interpretation Comme nts PROTEIN, TOTAL (test code = 2229) 6.9 G/DL ALBUMIN (test code = 2201) 3.9 G/DL BILIRUBIN, TOTAL (test code = 2207) 1.2 MG/DL BILIRUBIN, DIRECT (test code = 2022) 0.5 MG/DL ALKALINE PHOSPHATASE (test c ode = 2204) 152 U/L AST (test code = 2218) 102 U/L ALT (test code = 2219) 54 U/L CBC W/AUTO [id number] 00:00:00* Test Item Value Reference Range Interpretation Comme nts WBC (test code = 1001) 4.7 K/UL RBC (test code = 1002) 3.68 M/UL HEMOGLOBIN (test code = 1003) 11.9 G/DL HEMATOCRIT (test code = 1004) 34.6 % MCV (test code = 1005) 94.0 fL MCH (test code = 1006) 32.3 PG MCHC (test code = 1007) 34.4 G/DL RDW (test code = 1038) 13.1 % NEUTROPHILS (test code = 1008) 49.8 % LYMPHOCYTES (test code = 1010) 35.2 % MONOCYTES (test code = 1011) 11.2 % EOSINOPHILS (test code = 1012) 2.7 % BASOPHILS (test code = 1013) 1.1 % PLATELET COUNT (test code = 1015) 114 K/UL LIVER (HEPATIC) FUNCTION [id number] 00:00:00* Test Item Value Reference Range Interpretation Comme nts PROTEIN, TOTAL (test code = 2229) 6.9 G/DL ALBUMIN (test code = 2201) 3.9 G/DL BILIRUBIN, TOTAL (test code = 2207) 1.2 MG/DL BILIRUBIN, DIRECT (test code = 2022) 0.5 MG/DL ALKALINE PHOSPHATASE (test c ode = 2204) 152 U/L AST (test code = 2218) 102 U/L ALT (test code = 2219) 54 U/L CBC W/AUTO [id number] 00:00:00* Test Item Value Reference Range Interpretation Comme nts WBC (test code = 1001) 4.7 K/UL RBC (test code = 1002) 3.68 M/UL HEMOGLOBIN (test code = 1003) 11.9 G/DL HEMATOCRIT (test code = 1004) 34.6 % MCV (test code = 1005) 94.0 fL MCH (test code = 1006) 32.3 PG MCHC (test code = 1007) 34.4 G/DL RDW (test code = 1038) 13.1 % NEUTROPHILS (test code = 1008) 49.8 % LYMPHOCYTES (test code = 1010) 35.2 % MONOCYTES (test code = 1011) 11.2 % EOSINOPHILS (test code = 1012) 2.7 % BASOPHILS (test code = 1013) 1.1 % PLATELET COUNT (test code = 1015) 114 K/UL LIVER (HEPATIC) FUNCTION [id number] 00:00:00* Test Item Value Reference Range Interpretation Comme nts PROTEIN, TOTAL (test code = 2229) 6.9 G/DL ALBUMIN (test code = 2201) 3.9 G/DL BILIRUBIN, TOTAL (test code = 2207) 1.2 MG/DL BILIRUBIN, DIRECT (test code = 2022) 0.5 MG/DL ALKALINE PHOSPHATASE (test c ode = 2204) 152 U/L AST (test code = 2218) 102 U/L ALT (test code = 2219) 54 U/L CBC W/AUTO [id number] 00:00:00* Test Item Value Reference Range Interpretation Comme nts WBC (test code = 1001) 4.7 K/UL RBC (test code = 1002) 3.68 M/UL HEMOGLOBIN (test code = 1003) 11.9 G/DL HEMATOCRIT (test code = 1004) 34.6 % MCV (test code = 1005) 94.0 fL MCH (test code = 1006) 32.3 PG MCHC (test code = 1007) 34.4 G/DL RDW (test code = 1038) 13.1 % NEUTROPHILS (test code = 1008) 49.8 % LYMPHOCYTES (test code = 1010) 35.2 % MONOCYTES (test code = 1011) 11.2 % EOSINOPHILS (test code = 1012) 2.7 % BASOPHILS (test code = 1013) 1.1 % PLATELET COUNT (test code = 1015) 114 K/UL CBC W/AUTO [id number] 00:00:00* Test Item Value Reference Range Interpretation Comme nts WBC (test code = 1001) 4.7 K/UL RBC (test code = 1002) 3.68 M/UL HEMOGLOBIN (test code = 1003) 11.9 G/DL HEMATOCRIT (test code = 1004) 34.6 % MCV (test code = 1005) 94.0 fL MCH (test code = 1006) 32.3 PG MCHC (test code = 1007) 34.4 G/DL RDW (test code = 1038) 13.1 % NEUTROPHILS (test code = 1008) 49.8 % LYMPHOCYTES (test code = 1010) 35.2 % MONOCYTES (test code = 1011) 11.2 % EOSINOPHILS (test code = 1012) 2.7 % BASOPHILS (test code = 1013) 1.1 % PLATELET COUNT (test code = 1015) 114 K/UL Jonatan Barber AustinLIPID [id number] 00:00:00* Test Item Value Reference Range Interpretation Comme nts CHOLESTEROL (test code = 2210) 167 MG/DL TRIGLYCERIDES (test code = 2232) 158 MG/DL HDL CHOLESTEROL (test code = 2220) 56 MG/DL CALC LDL CHOL (test code = 2237) 79 MG/DL RISK RATIO LDL/HDL (test cod e = 2238) 1.42 RATIO Jonatan EasonCOMPREHENSIVE METABOLIC [id number] 00:00:00* Test Item Value Reference Range Interpretation Comme nts GLUCOSE (test code = 2217) 89 MG/DL BUN (test code = 2208) 8 MG/DL CREATININE (test code = 2214) 0.58 MG/DL eGFR AMER. (test cod e = 06307) 117 ML/MIN/1.73 eGFR NON- AMER. (test code = 26316) 101 ML/MIN/1.73 CALC BUN/CREAT (test code = 2235) 14 RATIO SODIUM (test code = 2231) 139 MEQ/L POTASSIUM (test code = 2228) 4.1 MEQ/L CHLORIDE (test code = 2215) 103 MEQ/L CARBON DIOXIDE (test code = 2206) 22 MEQ/L CALCIUM (test code = 2209) 8.8 MG/DL PROTEIN, TOTAL (test code = 2229) 7.7 G/DL ALBUMIN (test code = 2201) 3.8 G/DL CALC GLOBULIN (test code = 2240) 3.9 G/DL CALC A/G RATIO (test code = 2234) 1.0 RATIO BILIRUBIN, TOTAL (test code = 2207) 1.6 MG/DL ALKALINE PHOSPHATASE (test code = 2204) 168 U/L AST (test code = 2218) 170 U/L ALT (test code = 2219) 80 U/L COMPREHENSIVE METABOLIC [id number] 00:00:00* Test Item Value Reference Range Interpretation Comme nts GLUCOSE (test code = 2217) 89 MG/DL BUN (test code = 2208) 8 MG/DL CREATININE (test code = 2214) 0.58 MG/DL eGFR AMER. (test cod e = 52946) 117 ML/MIN/1.73 eGFR NON- AMER. (test code = 46275) 101 ML/MIN/1.73 CALC BUN/CREAT (test code = 2235) 14 RATIO SODIUM (test code = 2231) 139 MEQ/L POTASSIUM (test code = 2228) 4.1 MEQ/L CHLORIDE (test code = 2215) 103 MEQ/L CARBON DIOXIDE (test code = 2206) 22 MEQ/L CALCIUM (test code = 2209) 8.8 MG/DL PROTEIN, TOTAL (test code = 2229) 7.7 G/DL ALBUMIN (test code = 2201) 3.8 G/DL CALC GLOBULIN (test code = 2240) 3.9 G/DL CALC A/G RATIO (test code = 2234) 1.0 RATIO BILIRUBIN, TOTAL (test code = 2207) 1.6 MG/DL ALKALINE PHOSPHATASE (test code = 2204) 168 U/L AST (test code = 2218) 170 U/L ALT (test code = 2219) 80 U/L LIPID [id number] 00:00:00* Test Item Value Reference Range Interpretation Comme nts CHOLESTEROL (test code = 2210) 167 MG/DL TRIGLYCERIDES (test code = 2232) 158 MG/DL HDL CHOLESTEROL (test code = 2220) 56 MG/DL CALC LDL CHOL (test code = 2237) 79 MG/DL RISK RATIO LDL/HDL (test cod e = 2238) 1.42 RATIO [id number] 00:00:00* Test Item Value Reference Range Interpretation Comme nts TSH, THIRD GENERATION (test code = 2821) 0.718 UIU/ML Jonatan [id number] 00:00:00* Test Item Value Reference Range Interpretation Comme nts TSH, THIRD GENERATION (test code = 2821) 0.718 UIU/ML LIPID [id number] 00:00:00* Test Item Value Reference Range Interpretation Comme nts CHOLESTEROL (test code = 2210) 167 MG/DL TRIGLYCERIDES (test code = 2232) 158 MG/DL HDL CHOLESTEROL (test code = 2220) 56 MG/DL CALC LDL CHOL (test code = 2237) 79 MG/DL RISK RATIO LDL/HDL (test cod e = 2238) 1.42 RATIO COMPREHENSIVE METABOLIC [id number] 00:00:00* Test Item Value Reference Range Interpretation Comme nts GLUCOSE (test code = 2217) 89 MG/DL BUN (test code = 2208) 8 MG/DL CREATININE (test code = 2214) 0.58 MG/DL eGFR AMER. (test cod e = 91819) 117 ML/MIN/1.73 eGFR NON- AMER. (test code = 48893) 101 ML/MIN/1.73 CALC BUN/CREAT (test code = 2235) 14 RATIO SODIUM (test code = 2231) 139 MEQ/L POTASSIUM (test code = 2228) 4.1 MEQ/L CHLORIDE (test code = 2215) 103 MEQ/L CARBON DIOXIDE (test code = 2206) 22 MEQ/L CALCIUM (test code = 2209) 8.8 MG/DL PROTEIN, TOTAL (test code = 2229) 7.7 G/DL ALBUMIN (test code = 2201) 3.8 G/DL CALC GLOBULIN (test code = 2240) 3.9 G/DL CALC A/G RATIO (test code = 2234) 1.0 RATIO BILIRUBIN, TOTAL (test code = 2207) 1.6 MG/DL ALKALINE PHOSPHATASE (test code = 2204) 168 U/L AST (test code = 2218) 170 U/L ALT (test code = 2219) 80 U/L LIPID [id number] 00:00:00* Test Item Value Reference Range Interpretation Comme nts CHOLESTEROL (test code = 2210) 167 MG/DL TRIGLYCERIDES (test code = 2232) 158 MG/DL HDL CHOLESTEROL (test code = 2220) 56 MG/DL CALC LDL CHOL (test code = 2237) 79 MG/DL RISK RATIO LDL/HDL (test cod e = 2238) 1.42 RATIO COMPREHENSIVE METABOLIC [id number] 00:00:00* Test Item Value Reference Range Interpretation Comme nts GLUCOSE (test code = 2217) 89 MG/DL BUN (test code = 2208) 8 MG/DL CREATININE (test code = 2214) 0.58 MG/DL eGFR AMER. (test cod e = 75928) 117 ML/MIN/1.73 eGFR NON- AMER. (test code = 36672) 101 ML/MIN/1.73 CALC BUN/CREAT (test code = 2235) 14 RATIO SODIUM (test code = 2231) 139 MEQ/L POTASSIUM (test code = 2228) 4.1 MEQ/L CHLORIDE (test code = 2215) 103 MEQ/L CARBON DIOXIDE (test code = 2206) 22 MEQ/L CALCIUM (test code = 2209) 8.8 MG/DL PROTEIN, TOTAL (test code = 2229) 7.7 G/DL ALBUMIN (test code = 2201) 3.8 G/DL CALC GLOBULIN (test code = 2240) 3.9 G/DL CALC A/G RATIO (test code = 2234) 1.0 RATIO BILIRUBIN, TOTAL (test code = 2207) 1.6 MG/DL ALKALINE PHOSPHATASE (test code = 2204) 168 U/L AST (test code = 2218) 170 U/L ALT (test code = 2219) 80 U/L Jonatan [id number] 00:00:00* Test Item Value Reference Range Interpretation Comme nts TSH, THIRD GENERATION (test code = 2821) 0.718 UIU/ML LIPID [id number] 00:00:00* Test Item Value Reference Range Interpretation Comme nts CHOLESTEROL (test code = 2210) 167 MG/DL TRIGLYCERIDES (test code = 2232) 158 MG/DL HDL CHOLESTEROL (test code = 2220) 56 MG/DL CALC LDL CHOL (test code = 2237) 79 MG/DL RISK RATIO LDL/HDL (test cod e = 2238) 1.42 RATIO Jonatan [id number] 00:00:00* Test Item Value Reference Range Interpretation Comme nts TSH, THIRD GENERATION (test code = 2821) 0.718 UIU/ML Jonatan EasonCOMPREHENSIVE METABOLIC [id number] 00:00:00* Test Item Value Reference Range Interpretation Comme nts GLUCOSE (test code = 2217) 89 MG/DL BUN (test code = 2208) 8 MG/DL CREATININE (test code = 2214) 0.58 MG/DL eGFR AMER. (test cod e = 86391) 117 ML/MIN/1.73 eGFR NON- AMER. (test code = 81662) 101 ML/MIN/1.73 CALC BUN/CREAT (test code = 2235) 14 RATIO SODIUM (test code = 2231) 139 MEQ/L POTASSIUM (test code = 2228) 4.1 MEQ/L CHLORIDE (test code = 2215) 103 MEQ/L CARBON DIOXIDE (test code = 2206) 22 MEQ/L CALCIUM (test code = 2209) 8.8 MG/DL PROTEIN, TOTAL (test code = 2229) 7.7 G/DL ALBUMIN (test code = 2201) 3.8 G/DL CALC GLOBULIN (test code = 2240) 3.9 G/DL CALC A/G RATIO (test code = 2234) 1.0 RATIO BILIRUBIN, TOTAL (test code = 2207) 1.6 MG/DL ALKALINE PHOSPHATASE (test code = 2204) 168 U/L AST (test code = 2218) 170 U/L ALT (test code = 2219) 80 U/L Jonatan Babrer AustinLIPID [id number] 00:00:00* Test Item Value Reference Range Interpretation Comme nts CHOLESTEROL (test code = 2210) 167 MG/DL TRIGLYCERIDES (test code = 2232) 158 MG/DL HDL CHOLESTEROL (test code = 2220) 56 MG/DL CALC LDL CHOL (test code = 2237) 79 MG/DL RISK RATIO LDL/HDL (test cod e = 2238) 1.42 RATIO Jonatan Barber [id number] 00:00:00* Test Item Value Reference Range Interpretation Comme nts TSH, THIRD GENERATION (test code = 2821) 0.718 UIU/ML Jonatan Barber [id number] 00:00:00* Test Item Value Reference Range Interpretation Comme nts TSH, THIRD GENERATION (test code = 2821) 0.718 UIU/ML COMPREHENSIVE METABOLIC [id number] 00:00:00* Test Item Value Reference Range Interpretation Comme nts GLUCOSE (test code = 2217) 89 MG/DL BUN (test code = 2208) 8 MG/DL CREATININE (test code = 2214) 0.58 MG/DL eGFR AMER. (test cod e = 85941) 117 ML/MIN/1.73 eGFR NON- AMER. (test code = 48336) 101 ML/MIN/1.73 CALC BUN/CREAT (test code = 2235) 14 RATIO SODIUM (test code = 2231) 139 MEQ/L POTASSIUM (test code = 2228) 4.1 MEQ/L CHLORIDE (test code = 2215) 103 MEQ/L CARBON DIOXIDE (test code = 2206) 22 MEQ/L CALCIUM (test code = 2209) 8.8 MG/DL PROTEIN, TOTAL (test code = 2229) 7.7 G/DL ALBUMIN (test code = 2201) 3.8 G/DL CALC GLOBULIN (test code = 2240) 3.9 G/DL CALC A/G RATIO (test code = 2234) 1.0 RATIO BILIRUBIN, TOTAL (test code = 2207) 1.6 MG/DL ALKALINE PHOSPHATASE (test code = 2204) 168 U/L AST (test code = 2218) 170 U/L ALT (test code = 2219) 80 U/L COMPREHENSIVE METABOLIC [id number] 00:00:00* Test Item Value Reference Range Interpretation Comme nts GLUCOSE (test code = 2217) 89 MG/DL BUN (test code = 2208) 8 MG/DL CREATININE (test code = 2214) 0.58 MG/DL eGFR AMER. (test cod e = 72022) 117 ML/MIN/1.73 eGFR NON- AMER. (test code = 43731) 101 ML/MIN/1.73 CALC BUN/CREAT (test code = 2235) 14 RATIO SODIUM (test code = 2231) 139 MEQ/L POTASSIUM (test code = 2228) 4.1 MEQ/L CHLORIDE (test code = 2215) 103 MEQ/L CARBON DIOXIDE (test code = 2206) 22 MEQ/L CALCIUM (test code = 2209) 8.8 MG/DL PROTEIN, TOTAL (test code = 2229) 7.7 G/DL ALBUMIN (test code = 2201) 3.8 G/DL CALC GLOBULIN (test code = 2240) 3.9 G/DL CALC A/G RATIO (test code = 2234) 1.0 RATIO BILIRUBIN, TOTAL (test code = 2207) 1.6 MG/DL ALKALINE PHOSPHATASE (test code = 2204) 168 U/L AST (test code = 2218) 170 U/L ALT (test code = 2219) 80 U/L Jonatan Barber AustinLIPID [id number] 00:00:00* Test Item Value Reference Range Interpretation Comme nts CHOLESTEROL (test code = 2210) 167 MG/DL TRIGLYCERIDES (test code = 2232) 158 MG/DL HDL CHOLESTEROL (test code = 2220) 56 MG/DL CALC LDL CHOL (test code = 2237) 79 MG/DL RISK RATIO LDL/HDL (test cod e = 2238) 1.42 RATIO [id number] 00:00:00* Test Item Value Reference Range Interpretation Comme nts TSH, THIRD GENERATION (test code = 2821) 0.718 UIU/ML COMPREHENSIVE METABOLIC [id number] 00:00:00* Test Item Value Reference Range Interpretation Comme nts GLUCOSE (test code = 2217) 89 MG/DL BUN (test code = 2208) 8 MG/DL CREATININE (test code = 2214) 0.58 MG/DL eGFR AMER. (test cod e = 18099) 117 ML/MIN/1.73 eGFR NON- AMER. (test code = 65784) 101 ML/MIN/1.73 CALC BUN/CREAT (test code = 2235) 14 RATIO SODIUM (test code = 2231) 139 MEQ/L POTASSIUM (test code = 2228) 4.1 MEQ/L CHLORIDE (test code = 2215) 103 MEQ/L CARBON DIOXIDE (test code = 2206) 22 MEQ/L CALCIUM (test code = 2209) 8.8 MG/DL PROTEIN, TOTAL (test code = 2229) 7.7 G/DL ALBUMIN (test code = 2201) 3.8 G/DL CALC GLOBULIN (test code = 2240) 3.9 G/DL CALC A/G RATIO (test code = 2234) 1.0 RATIO BILIRUBIN, TOTAL (test code = 2207) 1.6 MG/DL ALKALINE PHOSPHATASE (test code = 2204) 168 U/L AST (test code = 2218) 170 U/L ALT (test code = 2219) 80 U/L LIPID [id number] 00:00:00* Test Item Value Reference Range Interpretation Comme nts CHOLESTEROL (test code = 2210) 167 MG/DL TRIGLYCERIDES (test code = 2232) 158 MG/DL HDL CHOLESTEROL (test code = 2220) 56 MG/DL CALC LDL CHOL (test code = 2237) 79 MG/DL RISK RATIO LDL/HDL (test cod e = 2238) 1.42 RATIO [id number] 00:00:00* Test Item Value Reference Range Interpretation Comme nts TSH, THIRD GENERATION (test code = 2821) 0.718 UIU/ML COMPREHENSIVE METABOLIC [id number] 00:00:00* Test Item Value Reference Range Interpretation Comme nts GLUCOSE (test code = 2217) 89 MG/DL BUN (test code = 2208) 8 MG/DL CREATININE (test code = 2214) 0.58 MG/DL eGFR AMER. (test cod e = 57243) 117 ML/MIN/1.73 eGFR NON- AMER. (test code = 21181) 101 ML/MIN/1.73 CALC BUN/CREAT (test code = 2235) 14 RATIO SODIUM (test code = 2231) 139 MEQ/L POTASSIUM (test code = 2228) 4.1 MEQ/L CHLORIDE (test code = 2215) 103 MEQ/L CARBON DIOXIDE (test code = 2206) 22 MEQ/L CALCIUM (test code = 2209) 8.8 MG/DL PROTEIN, TOTAL (test code = 2229) 7.7 G/DL ALBUMIN (test code = 2201) 3.8 G/DL CALC GLOBULIN (test code = 2240) 3.9 G/DL CALC A/G RATIO (test code = 2234) 1.0 RATIO BILIRUBIN, TOTAL (test code = 2207) 1.6 MG/DL ALKALINE PHOSPHATASE (test code = 2204) 168 U/L AST (test code = 2218) 170 U/L ALT (test code = 2219) 80 U/L LIPID [id number] 00:00:00* Test Item Value Reference Range Interpretation Comme nts CHOLESTEROL (test code = 2210) 167 MG/DL TRIGLYCERIDES (test code = 2232) 158 MG/DL HDL CHOLESTEROL (test code = 2220) 56 MG/DL CALC LDL CHOL (test code = 2237) 79 MG/DL RISK RATIO LDL/HDL (test cod e = 2238) 1.42 RATIO [id number] 00:00:00* Test Item Value Reference Range Interpretation Comme nts TSH, THIRD GENERATION (test code = 2821) 0.718 UIU/ML COMPREHENSIVE METABOLIC [id number] 00:00:00* Test Item Value Reference Range Interpretation Comme nts GLUCOSE (test code = 2217) 89 MG/DL BUN (test code = 2208) 8 MG/DL CREATININE (test code = 2214) 0.58 MG/DL eGFR AMER. (test cod e = 91150) 117 ML/MIN/1.73 eGFR NON- AMER. (test code = 54702) 101 ML/MIN/1.73 CALC BUN/CREAT (test code = 2235) 14 RATIO SODIUM (test code = 2231) 139 MEQ/L POTASSIUM (test code = 2228) 4.1 MEQ/L CHLORIDE (test code = 2215) 103 MEQ/L CARBON DIOXIDE (test code = 2206) 22 MEQ/L CALCIUM (test code = 2209) 8.8 MG/DL PROTEIN, TOTAL (test code = 2229) 7.7 G/DL ALBUMIN (test code = 2201) 3.8 G/DL CALC GLOBULIN (test code = 2240) 3.9 G/DL CALC A/G RATIO (test code = 2234) 1.0 RATIO BILIRUBIN, TOTAL (test code = 2207) 1.6 MG/DL ALKALINE PHOSPHATASE (test code = 2204) 168 U/L AST (test code = 2218) 170 U/L ALT (test code = 2219) 80 U/L LIPID [id number] 00:00:00* Test Item Value Reference Range Interpretation Comme nts CHOLESTEROL (test code = 2210) 167 MG/DL TRIGLYCERIDES (test code = 2232) 158 MG/DL HDL CHOLESTEROL (test code = 2220) 56 MG/DL CALC LDL CHOL (test code = 2237) 79 MG/DL RISK RATIO LDL/HDL (test cod e = 2238) 1.42 RATIO [id number] 00:00:00* Test Item Value Reference Range Interpretation Comme nts TSH, THIRD GENERATION (test code = 2821) 0.718 UIU/ML COMPREHENSIVE METABOLIC [id number] 00:00:00* Test Item Value Reference Range Interpretation Comme nts GLUCOSE (test code = 2217) 105 MG/DL BUN (test code = 2208) 15 MG/DL CREATININE (test code = 2214) 0.99 MG/DL eGFR AMER. (test cod e = 66907) 73 ML/MIN/1.73 eGFR NON- AMER. (test code = 32928) 63 ML/MIN/1.73 CALC BUN/CREAT (test code = 2235) 15 RATIO SODIUM (test code = 2231) 140 MEQ/L POTASSIUM (test code = 2228) 4.2 MEQ/L CHLORIDE (test code = 2215) 104 MEQ/L CARBON DIOXIDE (test code = 2206) 21 MEQ/L CALCIUM (test code = 2209) 9.2 MG/DL PROTEIN, TOTAL (test code = 2229) 7.5 G/DL ALBUMIN (test code = 2201) 4.2 G/DL CALC GLOBULIN (test code = 2240) 3.3 G/DL CALC A/G RATIO (test code = 2234) 1.3 RATIO BILIRUBIN, TOTAL (test code = 2207) 0.6 MG/DL ALKALINE PHOSPHATASE (test code = 2204) 138 U/L AST (test code = 2218) 61 U/L ALT (test code = 2219) 46 U/L [id number] 00:00:00* Test Item Value Reference Range Interpretation Comme nts TSH, THIRD GENERATION (test code = 2821) 1.330 UIU/ML COMPREHENSIVE METABOLIC [id number] 00:00:00* Test Item Value Reference Range Interpretation Comme nts GLUCOSE (test code = 2217) 105 MG/DL BUN (test code = 2208) 15 MG/DL CREATININE (test code = 2214) 0.99 MG/DL eGFR AMER. (test cod e = 68730) 73 ML/MIN/1.73 eGFR NON- AMER. (test code = 59385) 63 ML/MIN/1.73 CALC BUN/CREAT (test code = 2235) 15 RATIO SODIUM (test code = 2231) 140 MEQ/L POTASSIUM (test code = 2228) 4.2 MEQ/L CHLORIDE (test code = 2215) 104 MEQ/L CARBON DIOXIDE (test code = 2206) 21 MEQ/L CALCIUM (test code = 2209) 9.2 MG/DL PROTEIN, TOTAL (test code = 2229) 7.5 G/DL ALBUMIN (test code = 2201) 4.2 G/DL CALC GLOBULIN (test code = 2240) 3.3 G/DL CALC A/G RATIO (test code = 2234) 1.3 RATIO BILIRUBIN, TOTAL (test code = 2207) 0.6 MG/DL ALKALINE PHOSPHATASE (test code = 2204) 138 U/L AST (test code = 2218) 61 U/L ALT (test code = 2219) 46 U/L COMPREHENSIVE METABOLIC [id number] 00:00:00* Test Item Value Reference Range Interpretation Comme nts GLUCOSE (test code = 2217) 105 MG/DL BUN (test code = 2208) 15 MG/DL CREATININE (test code = 2214) 0.99 MG/DL eGFR AMER. (test cod e = 51708) 73 ML/MIN/1.73 eGFR NON- AMER. (test code = 80298) 63 ML/MIN/1.73 CALC BUN/CREAT (test code = 2235) 15 RATIO SODIUM (test code = 2231) 140 MEQ/L POTASSIUM (test code = 2228) 4.2 MEQ/L CHLORIDE (test code = 2215) 104 MEQ/L CARBON DIOXIDE (test code = 2206) 21 MEQ/L CALCIUM (test code = 2209) 9.2 MG/DL PROTEIN, TOTAL (test code = 2229) 7.5 G/DL ALBUMIN (test code = 2201) 4.2 G/DL CALC GLOBULIN (test code = 2240) 3.3 G/DL CALC A/G RATIO (test code = 2234) 1.3 RATIO BILIRUBIN, TOTAL (test code = 2207) 0.6 MG/DL ALKALINE PHOSPHATASE (test code = 2204) 138 U/L AST (test code = 2218) 61 U/L ALT (test code = 2219) 46 U/L [id number] 00:00:00* Test Item Value Reference Range Interpretation Comme nts TSH, THIRD GENERATION (test code = 2821) 1.330 UIU/ML [id number] 00:00:00* Test Item Value Reference Range Interpretation Comme nts TSH, THIRD GENERATION (test code = 2821) 1.330 UIU/ML COMPREHENSIVE METABOLIC [id number] 00:00:00* Test Item Value Reference Range Interpretation Comme nts GLUCOSE (test code = 2217) 105 MG/DL BUN (test code = 2208) 15 MG/DL CREATININE (test code = 2214) 0.99 MG/DL eGFR AMER. (test cod e = 87222) 73 ML/MIN/1.73 eGFR NON- AMER. (test code = 46923) 63 ML/MIN/1.73 CALC BUN/CREAT (test code = 2235) 15 RATIO SODIUM (test code = 2231) 140 MEQ/L POTASSIUM (test code = 2228) 4.2 MEQ/L CHLORIDE (test code = 2215) 104 MEQ/L CARBON DIOXIDE (test code = 2206) 21 MEQ/L CALCIUM (test code = 2209) 9.2 MG/DL PROTEIN, TOTAL (test code = 2229) 7.5 G/DL ALBUMIN (test code = 2201) 4.2 G/DL CALC GLOBULIN (test code = 2240) 3.3 G/DL CALC A/G RATIO (test code = 2234) 1.3 RATIO BILIRUBIN, TOTAL (test code = 2207) 0.6 MG/DL ALKALINE PHOSPHATASE (test code = 2204) 138 U/L AST (test code = 2218) 61 U/L ALT (test code = 2219) 46 U/L Jonatan [id number] 00:00:00* Test Item Value Reference Range Interpretation Comme nts TSH, THIRD GENERATION (test code = 2821) 1.330 UIU/ML Jonatan EasonCOMPREHENSIVE METABOLIC [id number] 00:00:00* Test Item Value Reference Range Interpretation Comme nts GLUCOSE (test code = 2217) 105 MG/DL BUN (test code = 2208) 15 MG/DL CREATININE (test code = 2214) 0.99 MG/DL eGFR AMER. (test cod e = 07994) 73 ML/MIN/1.73 eGFR NON- AMER. (test code = 11135) 63 ML/MIN/1.73 CALC BUN/CREAT (test code = 2235) 15 RATIO SODIUM (test code = 2231) 140 MEQ/L POTASSIUM (test code = 2228) 4.2 MEQ/L CHLORIDE (test code = 2215) 104 MEQ/L CARBON DIOXIDE (test code = 2206) 21 MEQ/L CALCIUM (test code = 2209) 9.2 MG/DL PROTEIN, TOTAL (test code = 2229) 7.5 G/DL ALBUMIN (test code = 2201) 4.2 G/DL CALC GLOBULIN (test code = 2240) 3.3 G/DL CALC A/G RATIO (test code = 2234) 1.3 RATIO BILIRUBIN, TOTAL (test code = 2207) 0.6 MG/DL ALKALINE PHOSPHATASE (test code = 2204) 138 U/L AST (test code = 2218) 61 U/L ALT (test code = 2219) 46 U/L Jonatan Barber [id number] 00:00:00* Test Item Value Reference Range Interpretation Comme nts TSH, THIRD GENERATION (test code = 2821) 1.330 UIU/ML Jonatan EasonCOMPREHENSIVE METABOLIC [id number] 00:00:00* Test Item Value Reference Range Interpretation Comme nts GLUCOSE (test code = 2217) 105 MG/DL BUN (test code = 2208) 15 MG/DL CREATININE (test code = 2214) 0.99 MG/DL eGFR AMER. (test cod e = 77155) 73 ML/MIN/1.73 eGFR NON- AMER. (test code = 07603) 63 ML/MIN/1.73 CALC BUN/CREAT (test code = 2235) 15 RATIO SODIUM (test code = 2231) 140 MEQ/L POTASSIUM (test code = 2228) 4.2 MEQ/L CHLORIDE (test code = 2215) 104 MEQ/L CARBON DIOXIDE (test code = 2206) 21 MEQ/L CALCIUM (test code = 2209) 9.2 MG/DL PROTEIN, TOTAL (test code = 2229) 7.5 G/DL ALBUMIN (test code = 2201) 4.2 G/DL CALC GLOBULIN (test code = 2240) 3.3 G/DL CALC A/G RATIO (test code = 2234) 1.3 RATIO BILIRUBIN, TOTAL (test code = 2207) 0.6 MG/DL ALKALINE PHOSPHATASE (test code = 2204) 138 U/L AST (test code = 2218) 61 U/L ALT (test code = 2219) 46 U/L COMPREHENSIVE METABOLIC [id number] 00:00:00* Test Item Value Reference Range Interpretation Comme nts GLUCOSE (test code = 2217) 105 MG/DL BUN (test code = 2208) 15 MG/DL CREATININE (test code = 2214) 0.99 MG/DL eGFR AMER. (test cod e = 26517) 73 ML/MIN/1.73 eGFR NON- AMER. (test code = 83484) 63 ML/MIN/1.73 CALC BUN/CREAT (test code = 2235) 15 RATIO SODIUM (test code = 2231) 140 MEQ/L POTASSIUM (test code = 2228) 4.2 MEQ/L CHLORIDE (test code = 2215) 104 MEQ/L CARBON DIOXIDE (test code = 2206) 21 MEQ/L CALCIUM (test code = 2209) 9.2 MG/DL PROTEIN, TOTAL (test code = 2229) 7.5 G/DL ALBUMIN (test code = 2201) 4.2 G/DL CALC GLOBULIN (test code = 2240) 3.3 G/DL CALC A/G RATIO (test code = 2234) 1.3 RATIO BILIRUBIN, TOTAL (test code = 2207) 0.6 MG/DL ALKALINE PHOSPHATASE (test code = 2204) 138 U/L AST (test code = 2218) 61 U/L ALT (test code = 2219) 46 U/L Jonatan [id number] 00:00:00* Test Item Value Reference Range Interpretation Comme nts TSH, THIRD GENERATION (test code = 2821) 1.330 UIU/ML COMPREHENSIVE METABOLIC [id number] 00:00:00* Test Item Value Reference Range Interpretation Comme nts GLUCOSE (test code = 2217) 105 MG/DL BUN (test code = 2208) 15 MG/DL CREATININE (test code = 2214) 0.99 MG/DL eGFR AMER. (test cod e = 46279) 73 ML/MIN/1.73 eGFR NON- AMER. (test code = 75691) 63 ML/MIN/1.73 CALC BUN/CREAT (test code = 2235) 15 RATIO SODIUM (test code = 2231) 140 MEQ/L POTASSIUM (test code = 2228) 4.2 MEQ/L CHLORIDE (test code = 2215) 104 MEQ/L CARBON DIOXIDE (test code = 2206) 21 MEQ/L CALCIUM (test code = 2209) 9.2 MG/DL PROTEIN, TOTAL (test code = 2229) 7.5 G/DL ALBUMIN (test code = 2201) 4.2 G/DL CALC GLOBULIN (test code = 2240) 3.3 G/DL CALC A/G RATIO (test code = 2234) 1.3 RATIO BILIRUBIN, TOTAL (test code = 2207) 0.6 MG/DL ALKALINE PHOSPHATASE (test code = 2204) 138 U/L AST (test code = 2218) 61 U/L ALT (test code = 2219) 46 U/L [id number] 00:00:00* Test Item Value Reference Range Interpretation Comme nts TSH, THIRD GENERATION (test code = 2821) 1.330 UIU/ML COMPREHENSIVE METABOLIC [id number] 00:00:00* Test Item Value Reference Range Interpretation Comme nts GLUCOSE (test code = 2217) 105 MG/DL BUN (test code = 2208) 15 MG/DL CREATININE (test code = 2214) 0.99 MG/DL eGFR AMER. (test cod e = 62229) 73 ML/MIN/1.73 eGFR NON- AMER. (test code = 10489) 63 ML/MIN/1.73 CALC BUN/CREAT (test code = 2235) 15 RATIO SODIUM (test code = 2231) 140 MEQ/L POTASSIUM (test code = 2228) 4.2 MEQ/L CHLORIDE (test code = 2215) 104 MEQ/L CARBON DIOXIDE (test code = 2206) 21 MEQ/L CALCIUM (test code = 2209) 9.2 MG/DL PROTEIN, TOTAL (test code = 2229) 7.5 G/DL ALBUMIN (test code = 2201) 4.2 G/DL CALC GLOBULIN (test code = 2240) 3.3 G/DL CALC A/G RATIO (test code = 2234) 1.3 RATIO BILIRUBIN, TOTAL (test code = 2207) 0.6 MG/DL ALKALINE PHOSPHATASE (test code = 2204) 138 U/L AST (test code = 2218) 61 U/L ALT (test code = 2219) 46 U/L [id number] 00:00:00* Test Item Value Reference Range Interpretation Comme nts TSH, THIRD GENERATION (test code = 2821) 1.330 UIU/ML COMPREHENSIVE METABOLIC [id number] 00:00:00* Test Item Value Reference Range Interpretation Comme nts GLUCOSE (test code = 2217) 105 MG/DL BUN (test code = 2208) 15 MG/DL CREATININE (test code = 2214) 0.99 MG/DL eGFR AMER. (test cod e = 74167) 73 ML/MIN/1.73 eGFR NON- AMER. (test code = 14458) 63 ML/MIN/1.73 CALC BUN/CREAT (test code = 2235) 15 RATIO SODIUM (test code = 2231) 140 MEQ/L POTASSIUM (test code = 2228) 4.2 MEQ/L CHLORIDE (test code = 2215) 104 MEQ/L CARBON DIOXIDE (test code = 2206) 21 MEQ/L CALCIUM (test code = 2209) 9.2 MG/DL PROTEIN, TOTAL (test code = 2229) 7.5 G/DL ALBUMIN (test code = 2201) 4.2 G/DL CALC GLOBULIN (test code = 2240) 3.3 G/DL CALC A/G RATIO (test code = 2234) 1.3 RATIO BILIRUBIN, TOTAL (test code = 2207) 0.6 MG/DL ALKALINE PHOSPHATASE (test code = 2204) 138 U/L AST (test code = 2218) 61 U/L ALT (test code = 2219) 46 U/L [id number] 00:00:00* Test Item Value Reference Range Interpretation Comme nts TSH, THIRD GENERATION (test code = 2821) 1.330 UIU/ML Jonatan [id number] 00:00:00* Test Item Value Reference Range Interpretation Comme nts TSH, THIRD GENERATION (test code = 2821) 1.330 UIU/ML HEPATITIS PANEL, ACUTE W/REFLEX TO [id number] 00:00:00* Test Item Value Reference Range Interpretation Comme nts HEPATITIS A IGM (test code = 86194-2) NON-REACTIVE HEPATITIS B SURFACE ANTIGEN (test code = 5196-1) NON-REACTIVE CONFIRMATION (test code = 7905-3) DNR HEPATITIS B CORE ANTIBODY (I GM) (test code = 85678-4) NON-REACTIVE HEPATITIS C ANTIBODY (test c ode = 04937-7) NON-REACTIVE SIGNAL TO CUT-OFF (test code = 80597-5) 0.02 Jonatan Barber [id number] 00:00:00* Test Item Value Reference Range Interpretation Comme nts TSH (test code = 3016-3) 3.41 mIU/L [id number] 00:00:00* Test Item Value Reference Range Interpretation Comme nts TSH (test code = 3016-3) 3.41 mIU/L HEPATITIS PANEL, ACUTE W/REFLEX TO [id number] 00:00:00* Test Item Value Reference Range Interpretation Comme nts HEPATITIS A IGM (test code = 06047-7) NON-REACTIVE HEPATITIS B SURFACE ANTIGEN (test code = 5196-1) NON-REACTIVE CONFIRMATION (test code = 7905-3) DNR HEPATITIS B CORE ANTIBODY (I GM) (test code = 40227-8) NON-REACTIVE HEPATITIS C ANTIBODY (test c ode = 02766-7) NON-REACTIVE SIGNAL TO CUT-OFF (test code = 86787-1) 0.02 HEPATITIS PANEL, ACUTE W/REFLEX TO [id number] 00:00:00* Test Item Value Reference Range Interpretation Comme nts HEPATITIS A IGM (test code = 97428-8) NON-REACTIVE HEPATITIS B SURFACE ANTIGEN (test code = 5196-1) NON-REACTIVE CONFIRMATION (test code = 7905-3) DNR HEPATITIS B CORE ANTIBODY (I GM) (test code = 40669-1) NON-REACTIVE HEPATITIS C ANTIBODY (test c ode = 53155-9) NON-REACTIVE SIGNAL TO CUT-OFF (test code = 99423-3) 0.02 [id number] 00:00:00* Test Item Value Reference Range Interpretation Comme nts TSH (test code = 3016-3) 3.41 mIU/L HEPATITIS PANEL, ACUTE W/REFLEX TO [id number] 00:00:00* Test Item Value Reference Range Interpretation Comme nts HEPATITIS A IGM (test code = 48856-9) NON-REACTIVE HEPATITIS B SURFACE ANTIGEN (test code = 5196-1) NON-REACTIVE CONFIRMATION (test code = 7905-3) DNR HEPATITIS B CORE ANTIBODY (I GM) (test code = 74483-5) NON-REACTIVE HEPATITIS C ANTIBODY (test c ode = 83574-9) NON-REACTIVE SIGNAL TO CUT-OFF (test code = 50960-2) 0.02 [id number] 00:00:00* Test Item Value Reference Range Interpretation Comme nts TSH (test code = 3016-3) 3.41 mIU/L Jonatan GrimmPATITIS PANEL, ACUTE W/REFLEX TO [id number] 00:00:00* Test Item Value Reference Range Interpretation Comme nts HEPATITIS A IGM (test code = 41497-1) NON-REACTIVE HEPATITIS B SURFACE ANTIGEN (test code = 5196-1) NON-REACTIVE CONFIRMATION (test code = 7905-3) DNR HEPATITIS B CORE ANTIBODY (I GM) (test code = 12834-9) NON-REACTIVE HEPATITIS C ANTIBODY (test c ode = 44982-1) NON-REACTIVE SIGNAL TO CUT-OFF (test code = 91545-4) 0.02 Jonatan [id number] 00:00:00* Test Item Value Reference Range Interpretation Comme nts TSH (test code = 3016-3) 3.41 mIU/L Jonatan Barber AustinHEPATITIS PANEL, ACUTE W/REFLEX TO [id number] 00:00:00* Test Item Value Reference Range Interpretation Comme nts HEPATITIS A IGM (test code = 08417-2) NON-REACTIVE HEPATITIS B SURFACE ANTIGEN (test code = 5196-1) NON-REACTIVE CONFIRMATION (test code = 7905-3) DNR HEPATITIS B CORE ANTIBODY (I GM) (test code = 33610-7) NON-REACTIVE HEPATITIS C ANTIBODY (test c ode = 46314-4) NON-REACTIVE SIGNAL TO CUT-OFF (test code = 58148-5) 0.02 Jonatan [id number] 00:00:00* Test Item Value Reference Range Interpretation Comme nts TSH (test code = 3016-3) 3.41 mIU/L HEPATITIS PANEL, ACUTE W/REFLEX TO [id number] 00:00:00* Test Item Value Reference Range Interpretation Comme nts HEPATITIS A IGM (test code = 23827-9) NON-REACTIVE HEPATITIS B SURFACE ANTIGEN (test code = 5196-1) NON-REACTIVE CONFIRMATION (test code = 7905-3) DNR HEPATITIS B CORE ANTIBODY (I GM) (test code = 91826-2) NON-REACTIVE HEPATITIS C ANTIBODY (test c ode = 37223-4) NON-REACTIVE SIGNAL TO CUT-OFF (test code = 81804-6) 0.02 [id number] 00:00:00* Test Item Value Reference Range Interpretation Comme nts TSH (test code = 3016-3) 3.41 mIU/L HEPATITIS PANEL, ACUTE W/REFLEX TO [id number] 00:00:00* Test Item Value Reference Range Interpretation Comme nts HEPATITIS A IGM (test code = 21389-7) NON-REACTIVE HEPATITIS B SURFACE ANTIGEN (test code = 5196-1) NON-REACTIVE CONFIRMATION (test code = 7905-3) DNR HEPATITIS B CORE ANTIBODY (I GM) (test code = 24870-3) NON-REACTIVE HEPATITIS C ANTIBODY (test c ode = 07786-4) NON-REACTIVE SIGNAL TO CUT-OFF (test code = 69353-2) 0.02 [id number] 00:00:00* Test Item Value Reference Range Interpretation Comme nts TSH (test code = 3016-3) 3.41 mIU/L Jonatan [id number] 00:00:00* Test Item Value Reference Range Interpretation Comme nts TSH (test code = 3016-3) 3.41 mIU/L HEPATITIS PANEL, ACUTE W/REFLEX TO [id number] 00:00:00* Test Item Value Reference Range Interpretation Comme nts HEPATITIS A IGM (test code = 85531-3) NON-REACTIVE HEPATITIS B SURFACE ANTIGEN (test code = 5196-1) NON-REACTIVE CONFIRMATION (test code = 7905-3) DNR HEPATITIS B CORE ANTIBODY (I GM) (test code = 13566-0) NON-REACTIVE HEPATITIS C ANTIBODY (test c ode = 98533-5) NON-REACTIVE SIGNAL TO CUT-OFF (test code = 45358-1) 0.02 [id number] 00:00:00* Test Item Value Reference Range Interpretation Comme nts TSH (test code = 3016-3) 3.41 mIU/L HEPATITIS PANEL, ACUTE W/REFLEX TO [id number] 00:00:00* Test Item Value Reference Range Interpretation Comme nts HEPATITIS A IGM (test code = 54319-5) NON-REACTIVE HEPATITIS B SURFACE ANTIGEN (test code = 5196-1) NON-REACTIVE CONFIRMATION (test code = 7905-3) DNR HEPATITIS B CORE ANTIBODY (I GM) (test code = 90210-2) NON-REACTIVE HEPATITIS C ANTIBODY (test c ode = 13082-5) NON-REACTIVE SIGNAL TO CUT-OFF (test code = 20835-1) 0.02 COMPREHENSIVE METABOLIC [id number] 00:00:00* Test Item Value Reference Range Interpretation Comme nts GLUCOSE (test code = 2217) 88 MG/DL BUN (test code = 2208) 18 MG/DL CREATININE (test code = 2214) 0.89 MG/DL eGFR AMER. (test cod e = 33027) 83 ML/MIN/1.73 eGFR NON- AMER. (test code = 36113) 71 ML/MIN/1.73 CALC BUN/CREAT (test code = 2235) 20 RATIO SODIUM (test code = 2231) 142 MEQ/L POTASSIUM (test code = 2228) 4.6 MEQ/L CHLORIDE (test code = 2215) 103 MEQ/L CARBON DIOXIDE (test code = 2206) 27 MEQ/L CALCIUM (test code = 2209) 9.3 MG/DL PROTEIN, TOTAL (test code = 2229) 7.2 G/DL ALBUMIN (test code = 2201) 4.3 G/DL CALC GLOBULIN (test code = 2240) 2.9 G/DL CALC A/G RATIO (test code = 2234) 1.5 RATIO BILIRUBIN, TOTAL (test code = 2207) 0.4 MG/DL ALKALINE PHOSPHATASE (test code = 2204) 129 U/L AST (test code = 2218) 126 U/L ALT (test code = 2219) 100 U/L THYROID II PROFILE (T3U, T4, T7, TSH)2017-06-14 00:00:00* Test Item Value Reference Range Interpretation Comme nts T3 UPTAKE (test code = 2817) 28.0 % T4 (THYROXINE) (test code = 2819) 7.9 UG/DL CALCULATED T7 (FTI) (test co de = 2820) 2.21 TSH (test code = 2821) 5.070 UIU/ML Jonatan Barber [place] [id number] 00:00:00* Test Item Value Reference Range Interpretation Comme nts CHOLESTEROL (test code = 2210) 227 MG/DL TRIGLYCERIDES (test code = 2232) 234 MG/DL HDL CHOLESTEROL (test code = 2220) 59 MG/DL CALC LDL CHOL (test code = 2237) 121 MG/DL RISK RATIO LDL/HDL (test cod e = 2238) 2.05 RATIO Jonatan EasonCOMPREHENSIVE METABOLIC [id number] 00:00:00* Test Item Value Reference Range Interpretation Comme nts GLUCOSE (test code = 2217) 88 MG/DL BUN (test code = 2208) 18 MG/DL CREATININE (test code = 2214) 0.89 MG/DL eGFR AMER. (test cod e = 32073) 83 ML/MIN/1.73 eGFR NON- AMER. (test code = 44537) 71 ML/MIN/1.73 CALC BUN/CREAT (test code = 2235) 20 RATIO SODIUM (test code = 2231) 142 MEQ/L POTASSIUM (test code = 2228) 4.6 MEQ/L CHLORIDE (test code = 2215) 103 MEQ/L CARBON DIOXIDE (test code = 2206) 27 MEQ/L CALCIUM (test code = 2209) 9.3 MG/DL PROTEIN, TOTAL (test code = 2229) 7.2 G/DL ALBUMIN (test code = 2201) 4.3 G/DL CALC GLOBULIN (test code = 2240) 2.9 G/DL CALC A/G RATIO (test code = 2234) 1.5 RATIO BILIRUBIN, TOTAL (test code = 2207) 0.4 MG/DL ALKALINE PHOSPHATASE (test code = 2204) 129 U/L AST (test code = 2218) 126 U/L ALT (test code = 2219) 100 U/L THYROID II PROFILE (T3U, T4, T7, TSH)2017-06-14 00:00:00* Test Item Value Reference Range Interpretation Comme nts T3 UPTAKE (test code = 2817) 28.0 % T4 (THYROXINE) (test code = 2819) 7.9 UG/DL CALCULATED T7 (FTI) (test co de = 2820) 2.21 TSH (test code = 2821) 5.070 UIU/ML LIPID [id number] 00:00:00* Test Item Value Reference Range Interpretation Comme nts CHOLESTEROL (test code = 2210) 227 MG/DL TRIGLYCERIDES (test code = 2232) 234 MG/DL HDL CHOLESTEROL (test code = 2220) 59 MG/DL CALC LDL CHOL (test code = 2237) 121 MG/DL RISK RATIO LDL/HDL (test cod e = 2238) 2.05 RATIO COMPREHENSIVE METABOLIC [id number] 00:00:00* Test Item Value Reference Range Interpretation Comme nts GLUCOSE (test code = 2217) 88 MG/DL BUN (test code = 2208) 18 MG/DL CREATININE (test code = 2214) 0.89 MG/DL eGFR AMER. (test cod e = 29858) 83 ML/MIN/1.73 eGFR NON- AMER. (test code = 36223) 71 ML/MIN/1.73 CALC BUN/CREAT (test code = 2235) 20 RATIO SODIUM (test code = 2231) 142 MEQ/L POTASSIUM (test code = 2228) 4.6 MEQ/L CHLORIDE (test code = 2215) 103 MEQ/L CARBON DIOXIDE (test code = 2206) 27 MEQ/L CALCIUM (test code = 2209) 9.3 MG/DL PROTEIN, TOTAL (test code = 2229) 7.2 G/DL ALBUMIN (test code = 2201) 4.3 G/DL CALC GLOBULIN (test code = 2240) 2.9 G/DL CALC A/G RATIO (test code = 2234) 1.5 RATIO BILIRUBIN, TOTAL (test code = 2207) 0.4 MG/DL ALKALINE PHOSPHATASE (test code = 2204) 129 U/L AST (test code = 2218) 126 U/L ALT (test code = 2219) 100 U/L THYROID II PROFILE (T3U, T4, T7, TSH)2017-06-14 00:00:00* Test Item Value Reference Range Interpretation Comme nts T3 UPTAKE (test code = 2817) 28.0 % T4 (THYROXINE) (test code = 2819) 7.9 UG/DL CALCULATED T7 (FTI) (test co de = 2820) 2.21 TSH (test code = 2821) 5.070 UIU/ML THYROID II PROFILE (T3U, T4, T7, TSH)2017-06-14 00:00:00* Test Item Value Reference Range Interpretation Comme nts T3 UPTAKE (test code = 2817) 28.0 % T4 (THYROXINE) (test code = 2819) 7.9 UG/DL CALCULATED T7 (FTI) (test co de = 2820) 2.21 TSH (test code = 2821) 5.070 UIU/ML LIPID [id number] 00:00:00* Test Item Value Reference Range Interpretation Comme nts CHOLESTEROL (test code = 2210) 227 MG/DL TRIGLYCERIDES (test code = 2232) 234 MG/DL HDL CHOLESTEROL (test code = 2220) 59 MG/DL CALC LDL CHOL (test code = 2237) 121 MG/DL RISK RATIO LDL/HDL (test cod e = 2238) 2.05 RATIO COMPREHENSIVE METABOLIC [id number] 00:00:00* Test Item Value Reference Range Interpretation Comme nts GLUCOSE (test code = 2217) 88 MG/DL BUN (test code = 2208) 18 MG/DL CREATININE (test code = 2214) 0.89 MG/DL eGFR AMER. (test cod e = 50880) 83 ML/MIN/1.73 eGFR NON- AMER. (test code = 82882) 71 ML/MIN/1.73 CALC BUN/CREAT (test code = 2235) 20 RATIO SODIUM (test code = 2231) 142 MEQ/L POTASSIUM (test code = 2228) 4.6 MEQ/L CHLORIDE (test code = 2215) 103 MEQ/L CARBON DIOXIDE (test code = 2206) 27 MEQ/L CALCIUM (test code = 2209) 9.3 MG/DL PROTEIN, TOTAL (test code = 2229) 7.2 G/DL ALBUMIN (test code = 2201) 4.3 G/DL CALC GLOBULIN (test code = 2240) 2.9 G/DL CALC A/G RATIO (test code = 2234) 1.5 RATIO BILIRUBIN, TOTAL (test code = 2207) 0.4 MG/DL ALKALINE PHOSPHATASE (test code = 2204) 129 U/L AST (test code = 2218) 126 U/L ALT (test code = 2219) 100 U/L Jonatan EasonTHYROID II PROFILE (T3U, T4, T7, TSH)2017-06-14 00:00:00* Test Item Value Reference Range Interpretation Comme nts T3 UPTAKE (test code = 2817) 28.0 % T4 (THYROXINE) (test code = 2819) 7.9 UG/DL CALCULATED T7 (FTI) (test co de = 2820) 2.21 TSH (test code = 2821) 5.070 UIU/ML Jonatan EasonLIPID [id number] 00:00:00* Test Item Value Reference Range Interpretation Comme nts CHOLESTEROL (test code = 2210) 227 MG/DL TRIGLYCERIDES (test code = 2232) 234 MG/DL HDL CHOLESTEROL (test code = 2220) 59 MG/DL CALC LDL CHOL (test code = 2237) 121 MG/DL RISK RATIO LDL/HDL (test cod e = 2238) 2.05 RATIO Jonatan EasonCOMPREHENSIVE METABOLIC [id number] 00:00:00* Test Item Value Reference Range Interpretation Comme nts GLUCOSE (test code = 2217) 88 MG/DL BUN (test code = 2208) 18 MG/DL CREATININE (test code = 2214) 0.89 MG/DL eGFR AMER. (test cod e = 34055) 83 ML/MIN/1.73 eGFR NON- AMER. (test code = 19211) 71 ML/MIN/1.73 CALC BUN/CREAT (test code = 2235) 20 RATIO SODIUM (test code = 2231) 142 MEQ/L POTASSIUM (test code = 2228) 4.6 MEQ/L CHLORIDE (test code = 2215) 103 MEQ/L CARBON DIOXIDE (test code = 2206) 27 MEQ/L CALCIUM (test code = 2209) 9.3 MG/DL PROTEIN, TOTAL (test code = 2229) 7.2 G/DL ALBUMIN (test code = 2201) 4.3 G/DL CALC GLOBULIN (test code = 2240) 2.9 G/DL CALC A/G RATIO (test code = 2234) 1.5 RATIO BILIRUBIN, TOTAL (test code = 2207) 0.4 MG/DL ALKALINE PHOSPHATASE (test code = 2204) 129 U/L AST (test code = 2218) 126 U/L ALT (test code = 2219) 100 U/L Jonatan EasonTHYROID II PROFILE (T3U, T4, T7, TSH)2017-06-14 00:00:00* Test Item Value Reference Range Interpretation Comme nts T3 UPTAKE (test code = 2817) 28.0 % T4 (THYROXINE) (test code = 2819) 7.9 UG/DL CALCULATED T7 (FTI) (test co de = 2820) 2.21 TSH (test code = 2821) 5.070 UIU/ML Jonatan EasonLIPID [id number] 00:00:00* Test Item Value Reference Range Interpretation Comme nts CHOLESTEROL (test code = 2210) 227 MG/DL TRIGLYCERIDES (test code = 2232) 234 MG/DL HDL CHOLESTEROL (test code = 2220) 59 MG/DL CALC LDL CHOL (test code = 2237) 121 MG/DL RISK RATIO LDL/HDL (test cod e = 2238) 2.05 RATIO Jonatan EasonCOMPREHENSIVE METABOLIC [id number] 00:00:00* Test Item Value Reference Range Interpretation Comme nts GLUCOSE (test code = 2217) 88 MG/DL BUN (test code = 2208) 18 MG/DL CREATININE (test code = 2214) 0.89 MG/DL eGFR AMER. (test cod e = 60645) 83 ML/MIN/1.73 eGFR NON- AMER. (test code = 37001) 71 ML/MIN/1.73 CALC BUN/CREAT (test code = 2235) 20 RATIO SODIUM (test code = 2231) 142 MEQ/L POTASSIUM (test code = 2228) 4.6 MEQ/L CHLORIDE (test code = 2215) 103 MEQ/L CARBON DIOXIDE (test code = 2206) 27 MEQ/L CALCIUM (test code = 2209) 9.3 MG/DL PROTEIN, TOTAL (test code = 2229) 7.2 G/DL ALBUMIN (test code = 2201) 4.3 G/DL CALC GLOBULIN (test code = 2240) 2.9 G/DL CALC A/G RATIO (test code = 2234) 1.5 RATIO BILIRUBIN, TOTAL (test code = 2207) 0.4 MG/DL ALKALINE PHOSPHATASE (test code = 2204) 129 U/L AST (test code = 2218) 126 U/L ALT (test code = 2219) 100 U/L Jonatan F AustinLIPID [id number] 00:00:00* Test Item Value Reference Range Interpretation Comme nts CHOLESTEROL (test code = 2210) 227 MG/DL TRIGLYCERIDES (test code = 2232) 234 MG/DL HDL CHOLESTEROL (test code = 2220) 59 MG/DL CALC LDL CHOL (test code = 2237) 121 MG/DL RISK RATIO LDL/HDL (test cod e = 2238) 2.05 RATIO COMPREHENSIVE METABOLIC [id number] 00:00:00* Test Item Value Reference Range Interpretation Comme nts GLUCOSE (test code = 2217) 88 MG/DL BUN (test code = 2208) 18 MG/DL CREATININE (test code = 2214) 0.89 MG/DL eGFR AMER. (test cod e = 66306) 83 ML/MIN/1.73 eGFR NON- AMER. (test code = 75900) 71 ML/MIN/1.73 CALC BUN/CREAT (test code = 2235) 20 RATIO SODIUM (test code = 2231) 142 MEQ/L POTASSIUM (test code = 2228) 4.6 MEQ/L CHLORIDE (test code = 2215) 103 MEQ/L CARBON DIOXIDE (test code = 2206) 27 MEQ/L CALCIUM (test code = 2209) 9.3 MG/DL PROTEIN, TOTAL (test code = 2229) 7.2 G/DL ALBUMIN (test code = 2201) 4.3 G/DL CALC GLOBULIN (test code = 2240) 2.9 G/DL CALC A/G RATIO (test code = 2234) 1.5 RATIO BILIRUBIN, TOTAL (test code = 2207) 0.4 MG/DL ALKALINE PHOSPHATASE (test code = 2204) 129 U/L AST (test code = 2218) 126 U/L ALT (test code = 2219) 100 U/L THYROID II PROFILE (T3U, T4, T7, TSH)2017-06-14 00:00:00* Test Item Value Reference Range Interpretation Comme nts T3 UPTAKE (test code = 2817) 28.0 % T4 (THYROXINE) (test code = 2819) 7.9 UG/DL CALCULATED T7 (FTI) (test co de = 2820) 2.21 TSH (test code = 2821) 5.070 UIU/ML LIPID [id number] 00:00:00* Test Item Value Reference Range Interpretation Comme nts CHOLESTEROL (test code = 2210) 227 MG/DL TRIGLYCERIDES (test code = 2232) 234 MG/DL HDL CHOLESTEROL (test code = 2220) 59 MG/DL CALC LDL CHOL (test code = 2237) 121 MG/DL RISK RATIO LDL/HDL (test cod e = 2238) 2.05 RATIO COMPREHENSIVE METABOLIC [id number] 00:00:00* Test Item Value Reference Range Interpretation Comme nts GLUCOSE (test code = 2217) 88 MG/DL BUN (test code = 2208) 18 MG/DL CREATININE (test code = 2214) 0.89 MG/DL eGFR AMER. (test cod e = 95015) 83 ML/MIN/1.73 eGFR NON- AMER. (test code = 67047) 71 ML/MIN/1.73 CALC BUN/CREAT (test code = 2235) 20 RATIO SODIUM (test code = 2231) 142 MEQ/L POTASSIUM (test code = 2228) 4.6 MEQ/L CHLORIDE (test code = 2215) 103 MEQ/L CARBON DIOXIDE (test code = 2206) 27 MEQ/L CALCIUM (test code = 2209) 9.3 MG/DL PROTEIN, TOTAL (test code = 2229) 7.2 G/DL ALBUMIN (test code = 2201) 4.3 G/DL CALC GLOBULIN (test code = 2240) 2.9 G/DL CALC A/G RATIO (test code = 2234) 1.5 RATIO BILIRUBIN, TOTAL (test code = 2207) 0.4 MG/DL ALKALINE PHOSPHATASE (test code = 2204) 129 U/L AST (test code = 2218) 126 U/L ALT (test code = 2219) 100 U/L THYROID II PROFILE (T3U, T4, T7, TSH)2017-06-14 00:00:00* Test Item Value Reference Range Interpretation Comme nts T3 UPTAKE (test code = 2817) 28.0 % T4 (THYROXINE) (test code = 2819) 7.9 UG/DL CALCULATED T7 (FTI) (test co de = 2820) 2.21 TSH (test code = 2821) 5.070 UIU/ML LIPID [id number] 00:00:00* Test Item Value Reference Range Interpretation Comme nts CHOLESTEROL (test code = 2210) 227 MG/DL TRIGLYCERIDES (test code = 2232) 234 MG/DL HDL CHOLESTEROL (test code = 2220) 59 MG/DL CALC LDL CHOL (test code = 2237) 121 MG/DL RISK RATIO LDL/HDL (test cod e = 2238) 2.05 RATIO COMPREHENSIVE METABOLIC [id number] 00:00:00* Test Item Value Reference Range Interpretation Comme nts GLUCOSE (test code = 2217) 88 MG/DL BUN (test code = 2208) 18 MG/DL CREATININE (test code = 2214) 0.89 MG/DL eGFR AMER. (test cod e = 25069) 83 ML/MIN/1.73 eGFR NON- AMER. (test code = 00382) 71 ML/MIN/1.73 CALC BUN/CREAT (test code = 2235) 20 RATIO SODIUM (test code = 2231) 142 MEQ/L POTASSIUM (test code = 2228) 4.6 MEQ/L CHLORIDE (test code = 2215) 103 MEQ/L CARBON DIOXIDE (test code = 2206) 27 MEQ/L CALCIUM (test code = 2209) 9.3 MG/DL PROTEIN, TOTAL (test code = 2229) 7.2 G/DL ALBUMIN (test code = 2201) 4.3 G/DL CALC GLOBULIN (test code = 2240) 2.9 G/DL CALC A/G RATIO (test code = 2234) 1.5 RATIO BILIRUBIN, TOTAL (test code = 2207) 0.4 MG/DL ALKALINE PHOSPHATASE (test code = 2204) 129 U/L AST (test code = 2218) 126 U/L ALT (test code = 2219) 100 U/L THYROID II PROFILE (T3U, T4, T7, TSH)2017-06-14 00:00:00* Test Item Value Reference Range Interpretation Comme nts T3 UPTAKE (test code = 2817) 28.0 % T4 (THYROXINE) (test code = 2819) 7.9 UG/DL CALCULATED T7 (FTI) (test co de = 2820) 2.21 TSH (test code = 2821) 5.070 UIU/ML LIPID [id number] 00:00:00* Test Item Value Reference Range Interpretation Comme nts CHOLESTEROL (test code = 2210) 227 MG/DL TRIGLYCERIDES (test code = 2232) 234 MG/DL HDL CHOLESTEROL (test code = 2220) 59 MG/DL CALC LDL CHOL (test code = 2237) 121 MG/DL RISK RATIO LDL/HDL (test cod e = 2238) 2.05 RATIO COMPREHENSIVE METABOLIC [id number] 00:00:00* Test Item Value Reference Range Interpretation Comme nts GLUCOSE (test code = 2217) 88 MG/DL BUN (test code = 2208) 18 MG/DL CREATININE (test code = 2214) 0.89 MG/DL eGFR AMER. (test cod e = 34476) 83 ML/MIN/1.73 eGFR NON- AMER. (test code = 56866) 71 ML/MIN/1.73 CALC BUN/CREAT (test code = 2235) 20 RATIO SODIUM (test code = 2231) 142 MEQ/L POTASSIUM (test code = 2228) 4.6 MEQ/L CHLORIDE (test code = 2215) 103 MEQ/L CARBON DIOXIDE (test code = 2206) 27 MEQ/L CALCIUM (test code = 2209) 9.3 MG/DL PROTEIN, TOTAL (test code = 2229) 7.2 G/DL ALBUMIN (test code = 2201) 4.3 G/DL CALC GLOBULIN (test code = 2240) 2.9 G/DL CALC A/G RATIO (test code = 2234) 1.5 RATIO BILIRUBIN, TOTAL (test code = 2207) 0.4 MG/DL ALKALINE PHOSPHATASE (test code = 2204) 129 U/L AST (test code = 2218) 126 U/L ALT (test code = 2219) 100 U/L THYROID II PROFILE (T3U, T4, T7, TSH)2017-06-14 00:00:00* Test Item Value Reference Range Interpretation Comme nts T3 UPTAKE (test code = 2817) 28.0 % T4 (THYROXINE) (test code = 2819) 7.9 UG/DL CALCULATED T7 (FTI) (test co de = 2820) 2.21 TSH (test code = 2821) 5.070 UIU/ML LIPID [id number] 00:00:00* Test Item Value Reference Range Interpretation Comme nts CHOLESTEROL (test code = 2210) 227 MG/DL TRIGLYCERIDES (test code = 2232) 234 MG/DL HDL CHOLESTEROL (test code = 2220) 59 MG/DL CALC LDL CHOL (test code = 2237) 121 MG/DL RISK RATIO LDL/HDL (test cod e = 2238) 2.05 RATIO LIPID [id number] 00:00:00* Test Item Value Reference Range Interpretation Comme nts CHOLESTEROL, TOTAL (test cod e = 2093-3) 224 mg/dL HDL CHOLESTEROL (test code = 2085-9) 53 mg/dL TRIGLYCERIDES (test code = 2571-8) 322 mg/dL LDL-CHOLESTEROL (test code = 29654-6) 125 mg/dL(calc) CHOL/HDLC RATIO (test code = 9830-1) 4.2 (calc) NON HDL CHOLESTEROL (test code = 63374-3) 171 mg/dL(calc) LIPID [id number] 00:00:00* Test Item Value Reference Range Interpretation Comme nts CHOLESTEROL, TOTAL (test cod e = 2093-3) 224 mg/dL HDL CHOLESTEROL (test code = 2085-9) 53 mg/dL TRIGLYCERIDES (test code = 2571-8) 322 mg/dL LDL-CHOLESTEROL (test code = 42551-0) 125 mg/dL(calc) CHOL/HDLC RATIO (test code = 9830-1) 4.2 (calc) NON HDL CHOLESTEROL (test code = 54073-1) 171 mg/dL(calc) COMPREHENSIVE METABOLIC [id number] 00:00:00* Test Item Value Reference Range Interpretation Comme nts GLUCOSE (test code = 2345-7) 94 mg/dL UREA NITROGEN (BUN) (test code = 3094-0) 14 mg/dL CREATININE (test code = 2160-0) 0.84 mg/dL eGFR NON-AFR. SPANISH (test code = 64232-0) 77 mL/min/1.73m2 eGFR (test code = 49882-6) 89 mL/min/1.73m2 BUN/CREATININE RATIO (test code = 3097-3) NOT APPLICABLE (calc) SODIUM (test code = 2951-2) 140 mmol/L POTASSIUM (test code = 2823-3) 4.1 mmol/L CHLORIDE (test code = 2075-0) 105 mmol/L CARBON DIOXIDE (test code = 2027-9) 25 mmol/L CALCIUM (test code = 88100-9) 9.3 mg/dL PROTEIN, TOTAL (test code = 2885-2) 6.6 g/dL ALBUMIN (test code = 1751-7) 4.1 g/dL GLOBULIN (test code = 59174-0) 2.5 g/dL(calc) ALBUMIN/GLOBULIN RATIO (test code = 1759-0) 1.6 (calc) BILIRUBIN, TOTAL (test code = 1975-2) 0.3 mg/dL ALKALINE PHOSPHATASE (test code = 6768-6) 119 U/L AST (test code = 1920-8) 28 U/L ALT (test code = 1742-6) 21 U/L [id number] 00:00:00* Test Item Value Reference Range Interpretation Comme nts TSH (test code = 3016-3) 3.07 mIU/L [id number] 00:00:00* Test Item Value Reference Range Interpretation Comme nts TSH (test code = 3016-3) 3.07 mIU/L Jonatan F AustinCOMPREHENSIVE METABOLIC [id number] 00:00:00* Test Item Value Reference Range Interpretation Comme nts GLUCOSE (test code = 2345-7) 94 mg/dL UREA NITROGEN (BUN) (test code = 3094-0) 14 mg/dL CREATININE (test code = 2160-0) 0.84 mg/dL eGFR NON-AFR. SPANISH (test code = 22064-5) 77 mL/min/1.73m2 eGFR (test code = 07530-0) 89 mL/min/1.73m2 BUN/CREATININE RATIO (test code = 3097-3) NOT APPLICABLE (calc) SODIUM (test code = 2951-2) 140 mmol/L POTASSIUM (test code = 2823-3) 4.1 mmol/L CHLORIDE (test code = 2075-0) 105 mmol/L CARBON DIOXIDE (test code = 2027-9) 25 mmol/L CALCIUM (test code = 31583-4) 9.3 mg/dL PROTEIN, TOTAL (test code = 2885-2) 6.6 g/dL ALBUMIN (test code = 1751-7) 4.1 g/dL GLOBULIN (test code = 43420-1) 2.5 g/dL(calc) ALBUMIN/GLOBULIN RATIO (test code = 1759-0) 1.6 (calc) BILIRUBIN, TOTAL (test code = 1975-2) 0.3 mg/dL ALKALINE PHOSPHATASE (test code = 6768-6) 119 U/L AST (test code = 1920-8) 28 U/L ALT (test code = 1742-6) 21 U/L LIPID [id number] 00:00:00* Test Item Value Reference Range Interpretation Comme nts CHOLESTEROL, TOTAL (test cod e = 2093-3) 224 mg/dL HDL CHOLESTEROL (test code = 2085-9) 53 mg/dL TRIGLYCERIDES (test code = 2571-8) 322 mg/dL LDL-CHOLESTEROL (test code = 50885-5) 125 mg/dL(calc) CHOL/HDLC RATIO (test code = 9830-1) 4.2 (calc) NON HDL CHOLESTEROL (test code = 10812-1) 171 mg/dL(calc) COMPREHENSIVE METABOLIC [id number] 00:00:00* Test Item Value Reference Range Interpretation Comme nts GLUCOSE (test code = 2345-7) 94 mg/dL UREA NITROGEN (BUN) (test code = 3094-0) 14 mg/dL CREATININE (test code = 2160-0) 0.84 mg/dL eGFR NON-AFR. SPANISH (test code = 36883-9) 77 mL/min/1.73m2 eGFR (test code = 99829-8) 89 mL/min/1.73m2 BUN/CREATININE RATIO (test code = 3097-3) NOT APPLICABLE (calc) SODIUM (test code = 2951-2) 140 mmol/L POTASSIUM (test code = 2823-3) 4.1 mmol/L CHLORIDE (test code = 2075-0) 105 mmol/L CARBON DIOXIDE (test code = 2027-9) 25 mmol/L CALCIUM (test code = 52089-9) 9.3 mg/dL PROTEIN, TOTAL (test code = 2885-2) 6.6 g/dL ALBUMIN (test code = 1751-7) 4.1 g/dL GLOBULIN (test code = 39169-4) 2.5 g/dL(calc) ALBUMIN/GLOBULIN RATIO (test code = 1759-0) 1.6 (calc) BILIRUBIN, TOTAL (test code = 1975-2) 0.3 mg/dL ALKALINE PHOSPHATASE (test code = 6768-6) 119 U/L AST (test code = 1920-8) 28 U/L ALT (test code = 1742-6) 21 U/L [id number] 00:00:00* Test Item Value Reference Range Interpretation Comme nts TSH (test code = 3016-3) 3.07 mIU/L LIPID [id number] 00:00:00* Test Item Value Reference Range Interpretation Comme nts CHOLESTEROL, TOTAL (test cod e = 2093-3) 224 mg/dL HDL CHOLESTEROL (test code = 2085-9) 53 mg/dL TRIGLYCERIDES (test code = 2571-8) 322 mg/dL LDL-CHOLESTEROL (test code = 03662-9) 125 mg/dL(calc) CHOL/HDLC RATIO (test code = 9830-1) 4.2 (calc) NON HDL CHOLESTEROL (test code = 10984-4) 171 mg/dL(calc) Jonatan F JenaroCOMPREHENSIVE METABOLIC [id number] 00:00:00* Test Item Value Reference Range Interpretation Comme nts GLUCOSE (test code = 2345-7) 94 mg/dL UREA NITROGEN (BUN) (test code = 3094-0) 14 mg/dL CREATININE (test code = 2160-0) 0.84 mg/dL eGFR NON-AFR. SPANISH (test code = 30372-6) 77 mL/min/1.73m2 eGFR (test code = 44335-3) 89 mL/min/1.73m2 BUN/CREATININE RATIO (test code = 3097-3) NOT APPLICABLE (calc) SODIUM (test code = 2951-2) 140 mmol/L POTASSIUM (test code = 2823-3) 4.1 mmol/L CHLORIDE (test code = 2075-0) 105 mmol/L CARBON DIOXIDE (test code = 8-9) 25 mmol/L CALCIUM (test code = 29708-1) 9.3 mg/dL PROTEIN, TOTAL (test code = 2885-2) 6.6 g/dL ALBUMIN (test code = 1751-7) 4.1 g/dL GLOBULIN (test code = 46000-9) 2.5 g/dL(calc) ALBUMIN/GLOBULIN RATIO (test code = 1759-0) 1.6 (calc) BILIRUBIN, TOTAL (test code = 1975-2) 0.3 mg/dL ALKALINE PHOSPHATASE (test code = 6768-6) 119 U/L AST (test code = 1920-8) 28 U/L ALT (test code = 1742-6) 21 U/L Jonatan [id number] 00:00:00* Test Item Value Reference Range Interpretation Comme nts TSH (test code = 3016-3) 3.07 mIU/L Jonatan Barber [place] [id number] 00:00:00* Test Item Value Reference Range Interpretation Comme nts CHOLESTEROL, TOTAL (test cod e = 2093-3) 224 mg/dL HDL CHOLESTEROL (test code = 2085-9) 53 mg/dL TRIGLYCERIDES (test code = 2571-8) 322 mg/dL LDL-CHOLESTEROL (test code = 15509-4) 125 mg/dL(calc) CHOL/HDLC RATIO (test code = 9830-1) 4.2 (calc) NON HDL CHOLESTEROL (test code = 52912-6) 171 mg/dL(calc) Jonatan EasonCOMPREHENSIVE METABOLIC [id number] 00:00:00* Test Item Value Reference Range Interpretation Comme nts GLUCOSE (test code = 2345-7) 94 mg/dL UREA NITROGEN (BUN) (test code = 3094-0) 14 mg/dL CREATININE (test code = 2160-0) 0.84 mg/dL eGFR NON-AFR. SPANISH (test code = 47690-6) 77 mL/min/1.73m2 eGFR (test code = 05619-2) 89 mL/min/1.73m2 BUN/CREATININE RATIO (test code = 3097-3) NOT APPLICABLE (calc) SODIUM (test code = 2951-2) 140 mmol/L POTASSIUM (test code = 2823-3) 4.1 mmol/L CHLORIDE (test code = 2075-0) 105 mmol/L CARBON DIOXIDE (test code = 2027-9) 25 mmol/L CALCIUM (test code = 19545-8) 9.3 mg/dL PROTEIN, TOTAL (test code = 2885-2) 6.6 g/dL ALBUMIN (test code = 1751-7) 4.1 g/dL GLOBULIN (test code = 15043-1) 2.5 g/dL(calc) ALBUMIN/GLOBULIN RATIO (test code = 1759-0) 1.6 (calc) BILIRUBIN, TOTAL (test code = 1975-2) 0.3 mg/dL ALKALINE PHOSPHATASE (test code = 6768-6) 119 U/L AST (test code = 1920-8) 28 U/L ALT (test code = 1742-6) 21 U/L Jonatan Barber [id number] 00:00:00* Test Item Value Reference Range Interpretation Comme [facility] TSH (test code = 3016-3) 3.07 mIU/L Jonatan Barber [id number] 00:00:00* Test Item Value Reference Range Interpretation Comme [facility] TSH (test code = 3016-3) 3.07 mIU/L LIPID [id number] 00:00:00* Test Item Value Reference Range Interpretation Comme nts CHOLESTEROL, TOTAL (test cod e = 2093-3) 224 mg/dL HDL CHOLESTEROL (test code = 2085-9) 53 mg/dL TRIGLYCERIDES (test code = 2571-8) 322 mg/dL LDL-CHOLESTEROL (test code = 84384-7) 125 mg/dL(calc) CHOL/HDLC RATIO (test code = 9830-1) 4.2 (calc) NON HDL CHOLESTEROL (test code = 77438-5) 171 mg/dL(calc) COMPREHENSIVE METABOLIC [id number] 00:00:00* Test Item Value Reference Range Interpretation Comme nts GLUCOSE (test code = 2345-7) 94 mg/dL UREA NITROGEN (BUN) (test code = 3094-0) 14 mg/dL CREATININE (test code = 2160-0) 0.84 mg/dL eGFR NON-AFR. SPANISH (test code = 24759-0) 77 mL/min/1.73m2 eGFR (test code = 75325-8) 89 mL/min/1.73m2 BUN/CREATININE RATIO (test code = 3097-3) NOT APPLICABLE (calc) SODIUM (test code = 2951-2) 140 mmol/L POTASSIUM (test code = 2823-3) 4.1 mmol/L CHLORIDE (test code = 2075-0) 105 mmol/L CARBON DIOXIDE (test code = 2027-9) 25 mmol/L CALCIUM (test code = 99767-6) 9.3 mg/dL PROTEIN, TOTAL (test code = 2885-2) 6.6 g/dL ALBUMIN (test code = 1751-7) 4.1 g/dL GLOBULIN (test code = 42954-3) 2.5 g/dL(calc) ALBUMIN/GLOBULIN RATIO (test code = 1759-0) 1.6 (calc) BILIRUBIN, TOTAL (test code = 1975-2) 0.3 mg/dL ALKALINE PHOSPHATASE (test code = 6768-6) 119 U/L AST (test code = 1920-8) 28 U/L ALT (test code = 1742-6) 21 U/L [id number] 00:00:00* Test Item Value Reference Range Interpretation Comme nts TSH (test code = 3016-3) 3.07 mIU/L LIPID [id number] 00:00:00* Test Item Value Reference Range Interpretation Comme nts CHOLESTEROL, TOTAL (test cod e = 2093-3) 224 mg/dL HDL CHOLESTEROL (test code = 2085-9) 53 mg/dL TRIGLYCERIDES (test code = 2571-8) 322 mg/dL LDL-CHOLESTEROL (test code = 33169-4) 125 mg/dL(calc) CHOL/HDLC RATIO (test code = 9830-1) 4.2 (calc) NON HDL CHOLESTEROL (test code = 14307-3) 171 mg/dL(calc) COMPREHENSIVE METABOLIC [id number] 00:00:00* Test Item Value Reference Range Interpretation Comme nts GLUCOSE (test code = 2345-7) 94 mg/dL UREA NITROGEN (BUN) (test code = 3094-0) 14 mg/dL CREATININE (test code = 2160-0) 0.84 mg/dL eGFR NON-AFR. SPANISH (test code = 18776-4) 77 mL/min/1.73m2 eGFR (test code = 94621-7) 89 mL/min/1.73m2 BUN/CREATININE RATIO (test code = 3097-3) NOT APPLICABLE (calc) SODIUM (test code = 2951-2) 140 mmol/L POTASSIUM (test code = 2823-3) 4.1 mmol/L CHLORIDE (test code = 2075-0) 105 mmol/L CARBON DIOXIDE (test code = 8-9) 25 mmol/L CALCIUM (test code = 78258-7) 9.3 mg/dL PROTEIN, TOTAL (test code = 2885-2) 6.6 g/dL ALBUMIN (test code = 1751-7) 4.1 g/dL GLOBULIN (test code = 96939-4) 2.5 g/dL(calc) ALBUMIN/GLOBULIN RATIO (test code = 1759-0) 1.6 (calc) BILIRUBIN, TOTAL (test code = 1975-2) 0.3 mg/dL ALKALINE PHOSPHATASE (test code = 6768-6) 119 U/L AST (test code = 1920-8) 28 U/L ALT (test code = 1742-6) 21 U/L LIPID [id number] 00:00:00* Test Item Value Reference Range Interpretation Comme nts CHOLESTEROL, TOTAL (test cod e = 2093-3) 224 mg/dL HDL CHOLESTEROL (test code = 2085-9) 53 mg/dL TRIGLYCERIDES (test code = 2571-8) 322 mg/dL LDL-CHOLESTEROL (test code = 52531-1) 125 mg/dL(calc) CHOL/HDLC RATIO (test code = 9830-1) 4.2 (calc) NON HDL CHOLESTEROL (test code = 76262-6) 171 mg/dL(calc) Jonatan Barber [id number] 00:00:00* Test Item Value Reference Range Interpretation Comme nts TSH (test code = 3016-3) 3.07 mIU/L LIPID [id number] 00:00:00* Test Item Value Reference Range Interpretation Comme nts CHOLESTEROL, TOTAL (test cod e = 2093-3) 224 mg/dL HDL CHOLESTEROL (test code = 2085-9) 53 mg/dL TRIGLYCERIDES (test code = 2571-8) 322 mg/dL LDL-CHOLESTEROL (test code = 52455-4) 125 mg/dL(calc) CHOL/HDLC RATIO (test code = 9830-1) 4.2 (calc) NON HDL CHOLESTEROL (test code = 74346-1) 171 mg/dL(calc) COMPREHENSIVE METABOLIC [id number] 00:00:00* Test Item Value Reference Range Interpretation Comme nts GLUCOSE (test code = 2345-7) 94 mg/dL UREA NITROGEN (BUN) (test code = 3094-0) 14 mg/dL CREATININE (test code = 2160-0) 0.84 mg/dL eGFR NON-AFR. SPANISH (test code = 01001-2) 77 mL/min/1.73m2 eGFR (test code = 28377-5) 89 mL/min/1.73m2 BUN/CREATININE RATIO (test code = 3097-3) NOT APPLICABLE (calc) SODIUM (test code = 2951-2) 140 mmol/L POTASSIUM (test code = 2823-3) 4.1 mmol/L CHLORIDE (test code = 2075-0) 105 mmol/L CARBON DIOXIDE (test code = 2027-9) 25 mmol/L CALCIUM (test code = 88626-9) 9.3 mg/dL PROTEIN, TOTAL (test code = 2885-2) 6.6 g/dL ALBUMIN (test code = 1751-7) 4.1 g/dL GLOBULIN (test code = 52275-8) 2.5 g/dL(calc) ALBUMIN/GLOBULIN RATIO (test code = 1759-0) 1.6 (calc) BILIRUBIN, TOTAL (test code = 1975-2) 0.3 mg/dL ALKALINE PHOSPHATASE (test code = 6768-6) 119 U/L AST (test code = 1920-8) 28 U/L ALT (test code = 1742-6) 21 U/L [id number] 00:00:00* Test Item Value Reference Range Interpretation Comme nts TSH (test code = 3016-3) 3.07 mIU/L LIPID [id number] 00:00:00* Test Item Value Reference Range Interpretation Comme nts CHOLESTEROL, TOTAL (test cod e = 2093-3) 224 mg/dL HDL CHOLESTEROL (test code = 2085-9) 53 mg/dL TRIGLYCERIDES (test code = 2571-8) 322 mg/dL LDL-CHOLESTEROL (test code = 95973-6) 125 mg/dL(calc) CHOL/HDLC RATIO (test code = 9830-1) 4.2 (calc) NON HDL CHOLESTEROL (test code = 53700-2) 171 mg/dL(calc) COMPREHENSIVE METABOLIC [id number] 00:00:00* Test Item Value Reference Range Interpretation Comme nts GLUCOSE (test code = 2345-7) 94 mg/dL UREA NITROGEN (BUN) (test code = 3094-0) 14 mg/dL CREATININE (test code = 2160-0) 0.84 mg/dL eGFR NON-AFR. SPANISH (test code = 93247-0) 77 mL/min/1.73m2 eGFR (test code = 55684-5) 89 mL/min/1.73m2 BUN/CREATININE RATIO (test code = 3097-3) NOT APPLICABLE (calc) SODIUM (test code = 2951-2) 140 mmol/L POTASSIUM (test code = 2823-3) 4.1 mmol/L CHLORIDE (test code = 2075-0) 105 mmol/L CARBON DIOXIDE (test code = 2027-9) 25 mmol/L CALCIUM (test code = 58444-7) 9.3 mg/dL PROTEIN, TOTAL (test code = 2885-2) 6.6 g/dL ALBUMIN (test code = 1751-7) 4.1 g/dL GLOBULIN (test code = 23312-2) 2.5 g/dL(calc) ALBUMIN/GLOBULIN RATIO (test code = 1759-0) 1.6 (calc) BILIRUBIN, TOTAL (test code = 1975-2) 0.3 mg/dL ALKALINE PHOSPHATASE (test code = 6768-6) 119 U/L AST (test code = 1920-8) 28 U/L ALT (test code = 1742-6) 21 U/L COMPREHENSIVE METABOLIC [id number] 00:00:00* Test Item Value Reference Range Interpretation Comme nts GLUCOSE (test code = 2345-7) 94 mg/dL UREA NITROGEN (BUN) (test code = 3094-0) 14 mg/dL CREATININE (test code = 2160-0) 0.84 mg/dL eGFR NON-AFR. SPANISH (test code = 52540-3) 77 mL/min/1.73m2 eGFR (test code = 24644-0) 89 mL/min/1.73m2 BUN/CREATININE RATIO (test code = 3097-3) NOT APPLICABLE (calc) SODIUM (test code = 2951-2) 140 mmol/L POTASSIUM (test code = 2823-3) 4.1 mmol/L CHLORIDE (test code = 2075-0) 105 mmol/L CARBON DIOXIDE (test code = 2027-9) 25 mmol/L CALCIUM (test code = 47709-2) 9.3 mg/dL PROTEIN, TOTAL (test code = 2885-2) 6.6 g/dL ALBUMIN (test code = 1751-7) 4.1 g/dL GLOBULIN (test code = 27291-4) 2.5 g/dL(calc) ALBUMIN/GLOBULIN RATIO (test code = 1759-0) 1.6 (calc) BILIRUBIN, TOTAL (test code = 1975-2) 0.3 mg/dL ALKALINE PHOSPHATASE (test code = 6768-6) 119 U/L AST (test code = 1920-8) 28 U/L ALT (test code = 1742-6) 21 U/L Jonatan [id number] 00:00:00* Test Item Value Reference Range Interpretation Comme nts TSH (test code = 3016-3) 3.07 mIU/L CBC W/AUTO [id number] 00:00:00* Test Item Value Reference Range Interpretation Comme nts WBC (test code = 1001) 6.6 K/UL RBC (test code = 1002) 3.98 M/UL HEMOGLOBIN (test code = 1003) 13.0 G/DL HEMATOCRIT (test code = 1004) 37.7 % MCV (test code = 1005) 94.7 fL MCH (test code = 1006) 32.7 PG MCHC (test code = 1007) 34.5 G/DL RDW (test code = 1038) 12.5 % NEUTROPHILS (test code = 1008) 59.0 % LYMPHOCYTES (test code = 1010) 27.9 % MONOCYTES (test code = 1011) 8.8 % EOSINOPHILS (test code = 1012) 3.2 % BASOPHILS (test code = 1013) 1.1 % PLATELET COUNT (test code = 1015) 217 K/UL CBC W/AUTO [id number] 00:00:00* Test Item Value Reference Range Interpretation Comme nts WBC (test code = 1001) 6.6 K/UL RBC (test code = 1002) 3.98 M/UL HEMOGLOBIN (test code = 1003) 13.0 G/DL HEMATOCRIT (test code = 1004) 37.7 % MCV (test code = 1005) 94.7 fL MCH (test code = 1006) 32.7 PG MCHC (test code = 1007) 34.5 G/DL RDW (test code = 1038) 12.5 % NEUTROPHILS (test code = 1008) 59.0 % LYMPHOCYTES (test code = 1010) 27.9 % MONOCYTES (test code = 1011) 8.8 % EOSINOPHILS (test code = 1012) 3.2 % BASOPHILS (test code = 1013) 1.1 % PLATELET COUNT (test code = 1015) 217 K/UL HEMOGLOBIN [id number] 00:00:00* Test Item Value Reference Range Interpretation Comme nts HEMOGLOBIN A1c (test code = 24621) 5.3 % LIPID [id number] 00:00:00* Test Item Value Reference Range Interpretation Comme nts CHOLESTEROL (test code = 2210) 232 MG/DL TRIGLYCERIDES (test code = 2232) 185 MG/DL HDL CHOLESTEROL (test code = 2220) 58 MG/DL CALC LDL CHOL (test code = 2237) 137 MG/DL RISK RATIO LDL/HDL (test cod e = 2238) 2.36 RATIO COMPREHENSIVE METABOLIC [id number] 00:00:00* Test Item Value Reference Range Interpretation Comme nts GLUCOSE (test code = 2217) 114 MG/DL BUN (test code = 2208) 24 MG/DL CREATININE (test code = 2214) 0.83 MG/DL eGFR AMER. (test cod e = 49337) 91 ML/MIN/1.73 eGFR NON- AMER. (test code = 67343) 78 ML/MIN/1.73 CALC BUN/CREAT (test code = 2235) 29 RATIO SODIUM (test code = 2231) 143 MEQ/L POTASSIUM (test code = 2228) 4.3 MEQ/L CHLORIDE (test code = 2215) 105 MEQ/L CARBON DIOXIDE (test code = 2206) 21 MEQ/L CALCIUM (test code = 2209) 9.0 MG/DL PROTEIN, TOTAL (test code = 2229) 6.3 G/DL ALBUMIN (test code = 2201) 3.9 G/DL CALC GLOBULIN (test code = 2240) 2.4 G/DL CALC A/G RATIO (test code = 2234) 1.6 RATIO BILIRUBIN, TOTAL (test code = 2207) 0.2 MG/DL ALKALINE PHOSPHATASE (test code = 2204) 114 U/L AST (test code = 2218) 29 U/L ALT (test code = 2219) 21 U/L LIPID [id number] 00:00:00* Test Item Value Reference Range Interpretation Comme nts CHOLESTEROL (test code = 2210) 232 MG/DL TRIGLYCERIDES (test code = 2232) 185 MG/DL HDL CHOLESTEROL (test code = 2220) 58 MG/DL CALC LDL CHOL (test code = 2237) 137 MG/DL RISK RATIO LDL/HDL (test cod e = 2238) 2.36 RATIO Jonatan Elisabteh AustinTHYROID II PROFILE (T3U, T4, T7, TSH)2016-11-02 00:00:00* Test Item Value Reference Range Interpretation Comme nts T3 UPTAKE (test code = 2817) 28.1 % T4 (THYROXINE) (test code = 2819) 8.3 UG/DL CALCULATED T7 (FTI) (test co de = 2820) 2.33 TSH (test code = 2821) 3.750 UIU/ML COMPREHENSIVE METABOLIC [id number] 00:00:00* Test Item Value Reference Range Interpretation Comme nts GLUCOSE (test code = 2217) 114 MG/DL BUN (test code = 2208) 24 MG/DL CREATININE (test code = 2214) 0.83 MG/DL eGFR AMER. (test cod e = 30611) 91 ML/MIN/1.73 eGFR NON- AMER. (test code = 91264) 78 ML/MIN/1.73 CALC BUN/CREAT (test code = 2235) 29 RATIO SODIUM (test code = 2231) 143 MEQ/L POTASSIUM (test code = 2228) 4.3 MEQ/L CHLORIDE (test code = 2215) 105 MEQ/L CARBON DIOXIDE (test code = 2206) 21 MEQ/L CALCIUM (test code = 2209) 9.0 MG/DL PROTEIN, TOTAL (test code = 2229) 6.3 G/DL ALBUMIN (test code = 2201) 3.9 G/DL CALC GLOBULIN (test code = 2240) 2.4 G/DL CALC A/G RATIO (test code = 2234) 1.6 RATIO BILIRUBIN, TOTAL (test code = 2207) 0.2 MG/DL ALKALINE PHOSPHATASE (test code = 2204) 114 U/L AST (test code = 2218) 29 U/L ALT (test code = 2219) 21 U/L [facility] [id number] 00:00:00* Test Item Value Reference Range Interpretation Comme [facility] WBC (test code = 1001) 6.6 K/UL RBC (test code = 1002) 3.98 M/UL HEMOGLOBIN (test code = 1003) 13.0 G/DL HEMATOCRIT (test code = 1004) 37.7 % MCV (test code = 1005) 94.7 fL MCH (test code = 1006) 32.7 PG MCHC (test code = 1007) 34.5 G/DL RDW (test code = 1038) 12.5 % NEUTROPHILS (test code = 1008) 59.0 % LYMPHOCYTES (test code = 1010) 27.9 % MONOCYTES (test code = 1011) 8.8 % EOSINOPHILS (test code = 1012) 3.2 % BASOPHILS (test code = 1013) 1.1 % PLATELET COUNT (test code = 1015) 217 K/UL HEMOGLOBIN [id number] 00:00:00* Test Item Value Reference Range Interpretation Comme [facility] HEMOGLOBIN A1c (test code = 39901) 5.3 % THYROID II PROFILE (T3U, T4, T7, TSH)2016-11-02 00:00:00* Test Item Value Reference Range Interpretation Comme [facility] T3 UPTAKE (test code = 2817) 28.1 % T4 (THYROXINE) (test code = 2819) 8.3 UG/DL CALCULATED T7 (FTI) (test co de = 2820) 2.33 TSH (test code = 2821) 3.750 UIU/ML Jnoatan Barber AustinHEMOGLOBIN [id number] 00:00:00* Test Item Value Reference Range Interpretation Comme nts HEMOGLOBIN A1c (test code = 79290) 5.3 % LIPID [id number] 00:00:00* Test Item Value Reference Range Interpretation Comme nts CHOLESTEROL (test code = 2210) 232 MG/DL TRIGLYCERIDES (test code = 2232) 185 MG/DL HDL CHOLESTEROL (test code = 2220) 58 MG/DL CALC LDL CHOL (test code = 2237) 137 MG/DL RISK RATIO LDL/HDL (test cod e = 2238) 2.36 RATIO COMPREHENSIVE METABOLIC [id number] 00:00:00* Test Item Value Reference Range Interpretation Comme nts GLUCOSE (test code = 2217) 114 MG/DL BUN (test code = 2208) 24 MG/DL CREATININE (test code = 2214) 0.83 MG/DL eGFR AMER. (test cod e = 56914) 91 ML/MIN/1.73 eGFR NON- AMER. (test code = 28249) 78 ML/MIN/1.73 CALC BUN/CREAT (test code = 2235) 29 RATIO SODIUM (test code = 2231) 143 MEQ/L POTASSIUM (test code = 2228) 4.3 MEQ/L CHLORIDE (test code = 2215) 105 MEQ/L CARBON DIOXIDE (test code = 2206) 21 MEQ/L CALCIUM (test code = 2209) 9.0 MG/DL PROTEIN, TOTAL (test code = 2229) 6.3 G/DL ALBUMIN (test code = 2201) 3.9 G/DL CALC GLOBULIN (test code = 2240) 2.4 G/DL CALC A/G RATIO (test code = 2234) 1.6 RATIO BILIRUBIN, TOTAL (test code = 2207) 0.2 MG/DL ALKALINE PHOSPHATASE (test code = 2204) 114 U/L AST (test code = 2218) 29 U/L ALT (test code = 2219) 21 U/L THYROID II PROFILE (T3U, T4, T7, TSH)2016-11-02 00:00:00* Test Item Value Reference Range Interpretation Comme nts T3 UPTAKE (test code = 2817) 28.1 % T4 (THYROXINE) (test code = 2819) 8.3 UG/DL CALCULATED T7 (FTI) (test co de = 2820) 2.33 TSH (test code = 2821) 3.750 UIU/ML CBC W/AUTO [id number] 00:00:00* Test Item Value Reference Range Interpretation Comme nts WBC (test code = 1001) 6.6 K/UL RBC (test code = 1002) 3.98 M/UL HEMOGLOBIN (test code = 1003) 13.0 G/DL HEMATOCRIT (test code = 1004) 37.7 % MCV (test code = 1005) 94.7 fL MCH (test code = 1006) 32.7 PG MCHC (test code = 1007) 34.5 G/DL RDW (test code = 1038) 12.5 % NEUTROPHILS (test code = 1008) 59.0 % LYMPHOCYTES (test code = 1010) 27.9 % MONOCYTES (test code = 1011) 8.8 % EOSINOPHILS (test code = 1012) 3.2 % BASOPHILS (test code = 1013) 1.1 % PLATELET COUNT (test code = 1015) 217 K/UL Jonatan EasonHEMOGLOBIN [id number] 00:00:00* Test Item Value Reference Range Interpretation Comme nts HEMOGLOBIN A1c (test code = 21108) 5.3 % Jonatan EasonLIPID [id number] 00:00:00* Test Item Value Reference Range Interpretation Comme nts CHOLESTEROL (test code = 2210) 232 MG/DL TRIGLYCERIDES (test code = 2232) 185 MG/DL HDL CHOLESTEROL (test code = 2220) 58 MG/DL CALC LDL CHOL (test code = 2237) 137 MG/DL RISK RATIO LDL/HDL (test cod e = 2238) 2.36 RATIO Jonatan EasonCOMPREHENSIVE METABOLIC [id number] 00:00:00* Test Item Value Reference Range Interpretation Comme nts GLUCOSE (test code = 2217) 114 MG/DL BUN (test code = 2208) 24 MG/DL CREATININE (test code = 2214) 0.83 MG/DL eGFR AMER. (test cod e = 97085) 91 ML/MIN/1.73 eGFR NON- AMER. (test code = 74371) 78 ML/MIN/1.73 CALC BUN/CREAT (test code = 2235) 29 RATIO SODIUM (test code = 2231) 143 MEQ/L POTASSIUM (test code = 2228) 4.3 MEQ/L CHLORIDE (test code = 2215) 105 MEQ/L CARBON DIOXIDE (test code = 2206) 21 MEQ/L CALCIUM (test code = 2209) 9.0 MG/DL PROTEIN, TOTAL (test code = 2229) 6.3 G/DL ALBUMIN (test code = 2201) 3.9 G/DL CALC GLOBULIN (test code = 2240) 2.4 G/DL CALC A/G RATIO (test code = 2234) 1.6 RATIO BILIRUBIN, TOTAL (test code = 2207) 0.2 MG/DL ALKALINE PHOSPHATASE (test code = 2204) 114 U/L AST (test code = 2218) 29 U/L ALT (test code = 2219) 21 U/L Jonatan EasonTHYROID II PROFILE (T3U, T4, T7, TSH)2016-11-02 00:00:00* Test Item Value Reference Range Interpretation Comme nts T3 UPTAKE (test code = 2817) 28.1 % T4 (THYROXINE) (test code = 2819) 8.3 UG/DL CALCULATED T7 (FTI) (test co de = 2820) 2.33 TSH (test code = 2821) 3.750 UIU/ML [facility] [id number] 00:00:00* Test Item Value Reference Range Interpretation Comme nts WBC (test code = 1001) 6.6 K/UL RBC (test code = 1002) 3.98 M/UL HEMOGLOBIN (test code = 1003) 13.0 G/DL HEMATOCRIT (test code = 1004) 37.7 % MCV (test code = 1005) 94.7 fL MCH (test code = 1006) 32.7 PG MCHC (test code = 1007) 34.5 G/DL RDW (test code = 1038) 12.5 % NEUTROPHILS (test code = 1008) 59.0 % LYMPHOCYTES (test code = 1010) 27.9 % MONOCYTES (test code = 1011) 8.8 % EOSINOPHILS (test code = 1012) 3.2 % BASOPHILS (test code = 1013) 1.1 % PLATELET COUNT (test code = 1015) 217 K/UL Jonatan EasonHEMOGLOBIN [id number] 00:00:00* Test Item Value Reference Range Interpretation Comme nts HEMOGLOBIN A1c (test code = 13823) 5.3 % Jonatan EasonLIPID [id number] 00:00:00* Test Item Value Reference Range Interpretation Comme nts CHOLESTEROL (test code = 2210) 232 MG/DL TRIGLYCERIDES (test code = 2232) 185 MG/DL HDL CHOLESTEROL (test code = 2220) 58 MG/DL CALC LDL CHOL (test code = 2237) 137 MG/DL RISK RATIO LDL/HDL (test cod e = 2238) 2.36 RATIO Jonatan EasonCOMPREHENSIVE METABOLIC [id number] 00:00:00* Test Item Value Reference Range Interpretation Comme nts GLUCOSE (test code = 2217) 114 MG/DL BUN (test code = 2208) 24 MG/DL CREATININE (test code = 2214) 0.83 MG/DL eGFR AMER. (test cod e = 42629) 91 ML/MIN/1.73 eGFR NON- AMER. (test code = 64267) 78 ML/MIN/1.73 CALC BUN/CREAT (test code = 2235) 29 RATIO SODIUM (test code = 2231) 143 MEQ/L POTASSIUM (test code = 2228) 4.3 MEQ/L CHLORIDE (test code = 2215) 105 MEQ/L CARBON DIOXIDE (test code = 2206) 21 MEQ/L CALCIUM (test code = 2209) 9.0 MG/DL PROTEIN, TOTAL (test code = 2229) 6.3 G/DL ALBUMIN (test code = 2201) 3.9 G/DL CALC GLOBULIN (test code = 2240) 2.4 G/DL CALC A/G RATIO (test code = 2234) 1.6 RATIO BILIRUBIN, TOTAL (test code = 2207) 0.2 MG/DL ALKALINE PHOSPHATASE (test code = 2204) 114 U/L AST (test code = 2218) 29 U/L ALT (test code = 2219) 21 U/L Jonatan EasonTHYROID II PROFILE (T3U, T4, T7, TSH)2016-11-02 00:00:00* Test Item Value Reference Range Interpretation Comme nts T3 UPTAKE (test code = 2817) 28.1 % T4 (THYROXINE) (test code = 2819) 8.3 UG/DL CALCULATED T7 (FTI) (test co de = 2820) 2.33 TSH (test code = 2821) 3.750 UIU/ML Jonatan EasonCBC W/AUTO [id number] 00:00:00* Test Item Value Reference Range Interpretation Comme nts WBC (test code = 1001) 6.6 K/UL RBC (test code = 1002) 3.98 M/UL HEMOGLOBIN (test code = 1003) 13.0 G/DL HEMATOCRIT (test code = 1004) 37.7 % MCV (test code = 1005) 94.7 fL MCH (test code = 1006) 32.7 PG MCHC (test code = 1007) 34.5 G/DL RDW (test code = 1038) 12.5 % NEUTROPHILS (test code = 1008) 59.0 % LYMPHOCYTES (test code = 1010) 27.9 % MONOCYTES (test code = 1011) 8.8 % EOSINOPHILS (test code = 1012) 3.2 % BASOPHILS (test code = 1013) 1.1 % PLATELET COUNT (test code = 1015) 217 K/UL Jonatan EasonLIPID [id number] 00:00:00* Test Item Value Reference Range Interpretation Comme nts CHOLESTEROL (test code = 2210) 232 MG/DL TRIGLYCERIDES (test code = 2232) 185 MG/DL HDL CHOLESTEROL (test code = 2220) 58 MG/DL CALC LDL CHOL (test code = 2237) 137 MG/DL RISK RATIO LDL/HDL (test cod e = 2238) 2.36 RATIO CBC W/AUTO [id number] 00:00:00* Test Item Value Reference Range Interpretation Comme nts WBC (test code = 1001) 6.6 K/UL RBC (test code = 1002) 3.98 M/UL HEMOGLOBIN (test code = 1003) 13.0 G/DL HEMATOCRIT (test code = 1004) 37.7 % MCV (test code = 1005) 94.7 fL MCH (test code = 1006) 32.7 PG MCHC (test code = 1007) 34.5 G/DL RDW (test code = 1038) 12.5 % NEUTROPHILS (test code = 1008) 59.0 % LYMPHOCYTES (test code = 1010) 27.9 % MONOCYTES (test code = 1011) 8.8 % EOSINOPHILS (test code = 1012) 3.2 % BASOPHILS (test code = 1013) 1.1 % PLATELET COUNT (test code = 1015) 217 K/UL HEMOGLOBIN [id number] 00:00:00* Test Item Value Reference Range Interpretation Comme nts HEMOGLOBIN A1c (test code = 71035) 5.3 % COMPREHENSIVE METABOLIC [id number] 00:00:00* Test Item Value Reference Range Interpretation Comme nts GLUCOSE (test code = 2217) 114 MG/DL BUN (test code = 2208) 24 MG/DL CREATININE (test code = 2214) 0.83 MG/DL eGFR AMER. (test cod e = 62171) 91 ML/MIN/1.73 eGFR NON- AMER. (test code = 86633) 78 ML/MIN/1.73 CALC BUN/CREAT (test code = 2235) 29 RATIO SODIUM (test code = 2231) 143 MEQ/L POTASSIUM (test code = 2228) 4.3 MEQ/L CHLORIDE (test code = 2215) 105 MEQ/L CARBON DIOXIDE (test code = 2206) 21 MEQ/L CALCIUM (test code = 2209) 9.0 MG/DL PROTEIN, TOTAL (test code = 2229) 6.3 G/DL ALBUMIN (test code = 2201) 3.9 G/DL CALC GLOBULIN (test code = 2240) 2.4 G/DL CALC A/G RATIO (test code = 2234) 1.6 RATIO BILIRUBIN, TOTAL (test code = 2207) 0.2 MG/DL ALKALINE PHOSPHATASE (test code = 2204) 114 U/L AST (test code = 2218) 29 U/L ALT (test code = 2219) 21 U/L LIPID [id number] 00:00:00* Test Item Value Reference Range Interpretation Comme nts CHOLESTEROL (test code = 2210) 232 MG/DL TRIGLYCERIDES (test code = 2232) 185 MG/DL HDL CHOLESTEROL (test code = 2220) 58 MG/DL CALC LDL CHOL (test code = 2237) 137 MG/DL RISK RATIO LDL/HDL (test cod e = 2238) 2.36 RATIO COMPREHENSIVE METABOLIC [id number] 00:00:00* Test Item Value Reference Range Interpretation Comme nts GLUCOSE (test code = 2217) 114 MG/DL BUN (test code = 2208) 24 MG/DL CREATININE (test code = 2214) 0.83 MG/DL eGFR AMER. (test cod e = 36113) 91 ML/MIN/1.73 eGFR NON- AMER. (test code = 85059) 78 ML/MIN/1.73 CALC BUN/CREAT (test code = 2235) 29 RATIO SODIUM (test code = 2231) 143 MEQ/L POTASSIUM (test code = 2228) 4.3 MEQ/L CHLORIDE (test code = 2215) 105 MEQ/L CARBON DIOXIDE (test code = 2206) 21 MEQ/L CALCIUM (test code = 2209) 9.0 MG/DL PROTEIN, TOTAL (test code = 2229) 6.3 G/DL ALBUMIN (test code = 2201) 3.9 G/DL CALC GLOBULIN (test code = 2240) 2.4 G/DL CALC A/G RATIO (test code = 2234) 1.6 RATIO BILIRUBIN, TOTAL (test code = 2207) 0.2 MG/DL ALKALINE PHOSPHATASE (test code = 2204) 114 U/L AST (test code = 2218) 29 U/L ALT (test code = 2219) 21 U/L THYROID II PROFILE (T3U, T4, T7, TSH)2016-11-02 00:00:00* Test Item Value Reference Range Interpretation Comme nts T3 UPTAKE (test code = 2817) 28.1 % T4 (THYROXINE) (test code = 2819) 8.3 UG/DL CALCULATED T7 (FTI) (test co de = 2820) 2.33 TSH (test code = 2821) 3.750 UIU/ML THYROID II PROFILE (T3U, T4, T7, TSH)2016-11-02 00:00:00* Test Item Value Reference Range Interpretation Comme nts T3 UPTAKE (test code = 2817) 28.1 % T4 (THYROXINE) (test code = 2819) 8.3 UG/DL CALCULATED T7 (FTI) (test co de = 2820) 2.33 TSH (test code = 2821) 3.750 UIU/ML CBC W/AUTO [id number] 00:00:00* Test Item Value Reference Range Interpretation Comme nts WBC (test code = 1001) 6.6 K/UL RBC (test code = 1002) 3.98 M/UL HEMOGLOBIN (test code = 1003) 13.0 G/DL HEMATOCRIT (test code = 1004) 37.7 % MCV (test code = 1005) 94.7 fL MCH (test code = 1006) 32.7 PG MCHC (test code = 1007) 34.5 G/DL RDW (test code = 1038) 12.5 % NEUTROPHILS (test code = 1008) 59.0 % LYMPHOCYTES (test code = 1010) 27.9 % MONOCYTES (test code = 1011) 8.8 % EOSINOPHILS (test code = 1012) 3.2 % BASOPHILS (test code = 1013) 1.1 % PLATELET COUNT (test code = 1015) 217 K/UL HEMOGLOBIN [id number] 00:00:00* Test Item Value Reference Range Interpretation Comme nts HEMOGLOBIN A1c (test code = 12674) 5.3 % LIPID [id number] 00:00:00* Test Item Value Reference Range Interpretation Comme nts CHOLESTEROL (test code = 2210) 232 MG/DL TRIGLYCERIDES (test code = 2232) 185 MG/DL HDL CHOLESTEROL (test code = 2220) 58 MG/DL CALC LDL CHOL (test code = 2237) 137 MG/DL RISK RATIO LDL/HDL (test cod e = 2238) 2.36 RATIO COMPREHENSIVE METABOLIC [id number] 00:00:00* Test Item Value Reference Range Interpretation Comme nts GLUCOSE (test code = 2217) 114 MG/DL BUN (test code = 2208) 24 MG/DL CREATININE (test code = 2214) 0.83 MG/DL eGFR AMER. (test cod e = 96209) 91 ML/MIN/1.73 eGFR NON- AMER. (test code = 68089) 78 ML/MIN/1.73 CALC BUN/CREAT (test code = 2235) 29 RATIO SODIUM (test code = 2231) 143 MEQ/L POTASSIUM (test code = 2228) 4.3 MEQ/L CHLORIDE (test code = 2215) 105 MEQ/L CARBON DIOXIDE (test code = 2206) 21 MEQ/L CALCIUM (test code = 2209) 9.0 MG/DL PROTEIN, TOTAL (test code = 2229) 6.3 G/DL ALBUMIN (test code = 2201) 3.9 G/DL CALC GLOBULIN (test code = 2240) 2.4 G/DL CALC A/G RATIO (test code = 2234) 1.6 RATIO BILIRUBIN, TOTAL (test code = 2207) 0.2 MG/DL ALKALINE PHOSPHATASE (test code = 2204) 114 U/L AST (test code = 2218) 29 U/L ALT (test code = 2219) 21 U/L THYROID II PROFILE (T3U, T4, T7, TSH)2016-11-02 00:00:00* Test Item Value Reference Range Interpretation Comme nts T3 UPTAKE (test code = 2817) 28.1 % T4 (THYROXINE) (test code = 2819) 8.3 UG/DL CALCULATED T7 (FTI) (test co de = 2820) 2.33 TSH (test code = 2821) 3.750 UIU/ML CBC W/AUTO [id number] 00:00:00* Test Item Value Reference Range Interpretation Comme nts WBC (test code = 1001) 6.6 K/UL RBC (test code = 1002) 3.98 M/UL HEMOGLOBIN (test code = 1003) 13.0 G/DL HEMATOCRIT (test code = 1004) 37.7 % MCV (test code = 1005) 94.7 fL MCH (test code = 1006) 32.7 PG MCHC (test code = 1007) 34.5 G/DL RDW (test code = 1038) 12.5 % NEUTROPHILS (test code = 1008) 59.0 % LYMPHOCYTES (test code = 1010) 27.9 % MONOCYTES (test code = 1011) 8.8 % EOSINOPHILS (test code = 1012) 3.2 % BASOPHILS (test code = 1013) 1.1 % PLATELET COUNT (test code = 1015) 217 K/UL HEMOGLOBIN [id number] 00:00:00* Test Item Value Reference Range Interpretation Comme nts HEMOGLOBIN A1c (test code = 71346) 5.3 % LIPID [id number] 00:00:00* Test Item Value Reference Range Interpretation Comme nts CHOLESTEROL (test code = 2210) 232 MG/DL TRIGLYCERIDES (test code = 2232) 185 MG/DL HDL CHOLESTEROL (test code = 2220) 58 MG/DL CALC LDL CHOL (test code = 2237) 137 MG/DL RISK RATIO LDL/HDL (test cod e = 2238) 2.36 RATIO COMPREHENSIVE METABOLIC [id number] 00:00:00* Test Item Value Reference Range Interpretation Comme nts GLUCOSE (test code = 2217) 114 MG/DL BUN (test code = 2208) 24 MG/DL CREATININE (test code = 2214) 0.83 MG/DL eGFR AMER. (test cod e = 33839) 91 ML/MIN/1.73 eGFR NON- AMER. (test code = 80898) 78 ML/MIN/1.73 CALC BUN/CREAT (test code = 2235) 29 RATIO SODIUM (test code = 2231) 143 MEQ/L POTASSIUM (test code = 2228) 4.3 MEQ/L CHLORIDE (test code = 2215) 105 MEQ/L CARBON DIOXIDE (test code = 2206) 21 MEQ/L CALCIUM (test code = 2209) 9.0 MG/DL PROTEIN, TOTAL (test code = 2229) 6.3 G/DL ALBUMIN (test code = 2201) 3.9 G/DL CALC GLOBULIN (test code = 2240) 2.4 G/DL CALC A/G RATIO (test code = 2234) 1.6 RATIO BILIRUBIN, TOTAL (test code = 2207) 0.2 MG/DL ALKALINE PHOSPHATASE (test code = 2204) 114 U/L AST (test code = 2218) 29 U/L ALT (test code = 2219) 21 U/L THYROID II PROFILE (T3U, T4, T7, TSH)2016-11-02 00:00:00* Test Item Value Reference Range Interpretation Comme nts T3 UPTAKE (test code = 2817) 28.1 % T4 (THYROXINE) (test code = 2819) 8.3 UG/DL CALCULATED T7 (FTI) (test co de = 2820) 2.33 TSH (test code = 2821) 3.750 UIU/ML CBC W/AUTO [id number] 00:00:00* Test Item Value Reference Range Interpretation Comme nts WBC (test code = 1001) 6.6 K/UL RBC (test code = 1002) 3.98 M/UL HEMOGLOBIN (test code = 1003) 13.0 G/DL HEMATOCRIT (test code = 1004) 37.7 % MCV (test code = 1005) 94.7 fL MCH (test code = 1006) 32.7 PG MCHC (test code = 1007) 34.5 G/DL RDW (test code = 1038) 12.5 % NEUTROPHILS (test code = 1008) 59.0 % LYMPHOCYTES (test code = 1010) 27.9 % MONOCYTES (test code = 1011) 8.8 % EOSINOPHILS (test code = 1012) 3.2 % BASOPHILS (test code = 1013) 1.1 % PLATELET COUNT (test code = 1015) 217 K/UL HEMOGLOBIN [id number] 00:00:00* Test Item Value Reference Range Interpretation Comme nts HEMOGLOBIN A1c (test code = 26945) 5.3 % HEMOGLOBIN [id number] 00:00:00* Test Item Value Reference Range Interpretation Comme nts HEMOGLOBIN A1c (test code = 81024) 5.3 % Jonatan F AustinLIPID [id number] 00:00:00* Test Item Value Reference Range Interpretation Comme nts CHOLESTEROL (test code = 2210) 232 MG/DL TRIGLYCERIDES (test code = 2232) 185 MG/DL HDL CHOLESTEROL (test code = 2220) 58 MG/DL CALC LDL CHOL (test code = 2237) 137 MG/DL RISK RATIO LDL/HDL (test cod e = 2238) 2.36 RATIO COMPREHENSIVE METABOLIC [id number] 00:00:00* Test Item Value Reference Range Interpretation Comme nts GLUCOSE (test code = 2217) 114 MG/DL BUN (test code = 2208) 24 MG/DL CREATININE (test code = 2214) 0.83 MG/DL eGFR AMER. (test cod e = 29404) 91 ML/MIN/1.73 eGFR NON- AMER. (test code = 38137) 78 ML/MIN/1.73 CALC BUN/CREAT (test code = 2235) 29 RATIO SODIUM (test code = 2231) 143 MEQ/L POTASSIUM (test code = 2228) 4.3 MEQ/L CHLORIDE (test code = 2215) 105 MEQ/L CARBON DIOXIDE (test code = 2206) 21 MEQ/L CALCIUM (test code = 2209) 9.0 MG/DL PROTEIN, TOTAL (test code = 2229) 6.3 G/DL ALBUMIN (test code = 2201) 3.9 G/DL CALC GLOBULIN (test code = 2240) 2.4 G/DL CALC A/G RATIO (test code = 2234) 1.6 RATIO BILIRUBIN, TOTAL (test code = 2207) 0.2 MG/DL ALKALINE PHOSPHATASE (test code = 2204) 114 U/L AST (test code = 2218) 29 U/L ALT (test code = 2219) 21 U/L THYROID II PROFILE (T3U, T4, T7, TSH)2016-11-02 00:00:00* Test Item Value Reference Range Interpretation Comme nts T3 UPTAKE (test code = 2817) 28.1 % T4 (THYROXINE) (test code = 2819) 8.3 UG/DL CALCULATED T7 (FTI) (test co de = 2820) 2.33 TSH (test code = 2821) 3.750 UIU/ML Consult Notes Date/Time Note Provider Source 2024-02-04 11:52:43 Associated Order(s): CONSULT PS PASTORAL CARE The histology assistant discussed the spiritual support that is available and how to access that support. Patient requests a follow up visit at a later time. The [facility] Pastoral volunteer or staff histology assistant will attempt to re-visit the patient and remains available to provide pastoral/spiritual care in the future if needed. Rev.Princess Mackenzie Resident Inspector I [facility] Department of Pastoral Care Pager: [phone] Princess Mazariegos [facility] - Health 2024-02-03 11:53:20 Associated Order(s): CONSULT UROLOGY UROLOGY CONSULTATION NOTE Requesting Physician: IM Date of Service: 02/03/2024 Reason for Consult: History of Present Illness Rowan Bonilla, 63 year old female with PMH of cervical cancer s/p ChemoXRT + total hysterectomy (~20 years ago), alcoholic cirrhosis with resulting coagulopathy + anemia + thrombocytopenia, radiation cystitis c/b symptomatic anemia requiring cystoscopy and fulguration 1 month ago at [facility], 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 She presented to the ER with recurrent gross hematuria that restarted ~6 days ago, initially intermittent now persistent and passing clots. Not in urinary retention and able to void to completion with low PVR on bladder scan. UA not consistent with UTI. Received 1u pRBC for anemia in the ER. Baseline Hgb ~7.5, and was 6.2 on admission. CTA in ER showing no obvious renal anomalies, and likely clot layering in dependent portion of the bladder. Medications: Home Medications: Medications Prior to Admission Medication Sig Dispense Refill Last Dose amLODIPine 5 mg tablet Take 1 tablet by mouth in the morning. 02/02/2024 lisinopriL-hydrochlorothiazi de 20-25 mg per tablet Take 1 tablet by mouth in the morning. 02/02/2024 atorvastatin 40 mg tablet Take 1 tablet by mouth at bedtime. 30 tablet 0 02/02/2024 foLIC acid 1 mg tablet Take 1 tablet by mouth in the morning. 30 tablet 0 02/02/2024 lactulose 10 gram/15 mL solution Take 30 mL by mouth in the morning. 946 mL 0 02/02/2024 thiamine mononitrate 100 mg tablet Take 1 tablet by mouth in the morning and 1 tablet at noon and 1 tablet in the evening. 30 tablet 0 02/02/2024 [DISCONTINUED] estradioL (ESTRACE) 0.01 % (0.1 mg/gram) vaginal cream Apply 1g vaginally at bedtime every night for 2 weeks and then apply 1g vaginally at bedtime 2 times per week (Patient not taking: Reported on 02/03/2024) 42.5 g 5 Not Taking ferrous sulfate (IRON, FERROUS SULFATE,) 325 mg (65 mg iron) tablet Take 1 tablet by mouth every other day. 30 tablet 0 02/02/2024 levothyroxine (SYNTHROID) 125 mcg tablet TAKE 1 TABLET BY MOUTH EVERY MORNING (Patient taking differently: 100 mcg.) 30 tablet 1 12/20/2023 Hospital Medications: Current Facility-Administered Medications Medication Dose Route Frequency Last Rate Last Admin acetaminophen (TYLENOL) tablet 650 mg 650 mg Oral Q6HPRN atorvastatin (LIPITOR) tablet 40 mg 40 mg Oral QHS ferrous sulfate tablet 325 mg 325 mg Oral Q OTHERDAY 325 mg at 02/03/24 1101 foLIC acid (FOLATE) tablet 1 mg 1 mg Oral DAILY 1 mg at 02/03/24 0906 lactulose (CEPHULAC) 10 gram/15 mL (15 mL) oral solution 30 mL 30 mL Oral DAILY 30 mL at 02/03/24 09 levothyroxine (SYNTHROID) tablet 100 mcg 100 mcg Oral QAM-0600 100 mcg at 02/03/24 0544 thiamine mononitrate (VITAMIN B-1 (MONONITRATE)) tablet 100 mg 100 mg Oral TID 100 mg at 02/03/24 09 Histories: Past Medical History: Diagnosis Date Cancer 2000 Cervical with total hysterectomy Coagulation defect 01/01/2024 Essential (primary) hypertension 12/09/2021 Hypothyroid 09/17/2014 Past Surgical History: Procedure Laterality Date APPENDECTOMY 1977 COLONOSCOPY N/A 04/21/2022 Surgeon: Radha Pena MD; Location: [facility] OR LOCATION COLONOSCOPY N/A 01/23/2023 Surgeon: Leroy Martel MD; Location: [facility] OR LOCATION CYSTOSCOPY WITH EVACUATION CLOTS (SHX) N/A 12/22/2023 Surgeon: Bertin Adame MD; Location: [facility] OR LOCATION DILATION AND CURETTAGE (SHX) ESOPHAGOGASTRODUODENOSCOPY Upper 12/27/2023 Surgeon: Hank Andrew MD; Location: ENDOSCOPY ([facility]) OR LOCATION HYSTERECTOMY Family History Problem Relation Age of Onset Cancer Father Rectal Cancer High cholesterol Maternal Aunt Cancer Paternal Uncle Rectal Cancer Arthritis NoFHx Asthma NoFHx defects NoFHx Breast Cancer NoFHx Colon Cancer NoFHx Ovarian Cancer NoFHx Uterine Cancer NoFHx Genetic NoFHx Heart NoFHx Mental retardation NoFHx Neurological NoFHx Osteoporosis NoFHx Psychiatry NoFHx Depression Daughter 2015 Diabetes Daughter Hypertension Daughter Social History Socioeconomic History Marital status: Tobacco Use Smoking status: Former Current packs/day: 0.00 Types: Cigarettes Quit date: 2010 Years since quittin.7 Passive exposure: Past Smokeless tobacco: Never Substance and Sexual Activity Alcohol use: Yes Comment: social use-once every other week, beer-daily Drug use: Yes Types: Marijuana Sexual activity: Not Currently Comment: no history of domestic/sexual violence Social History Narrative Patient denies any violence or domestic abuse. Social Determinants of Health Financial Resource Strain: Low Risk (12/21/2023) Overall Financial Resource Strain (CARDIA) Difficulty of Paying Living Expenses: Not hard at all Food Insecurity: No Food Insecurity (12/21/2023) Hunger Vital Sign Worried About Running Out of Food in the Last Year: Never true Ran Out of Food in the Last Year: Never true Physical Activity: Inactive (12/21/2023) Exercise Vital Sign Days of Exercise per Week: 0 days Minutes of Exercise per Session: 0 min Social Connections: Unknown (12/21/2023) Social Connection and Isolation Panel [NHANES] Frequency of Communication with Friends and Family: More than three times a week Marital Status: Housing Stability: Low Risk (12/21/2023) Housing Stability Vital Sign Unable to Pay for Housing in the Last Year: No Number of Places Lived in the Last Year: 1 Unstable Housing in the Last Year: No Allergies: No Known Allergies Review of Systems: Constitutional: negative Eyes: negative Ears, nose, mouth, throat: negative Cardiovascular: negative Respiratory: negative Gastrointestinal: negative Genitourinary: (+) per HPI Musculoskeletal: negative Integumentary: negative Neurological: negative Psychiatric: negative Endocrine: negative Hematologic/Lymphatic: negative Allergic/Immunologic: negative, allergies listed above Physical Exam: Blood pressure 112/49, pulse 69, temperature 36.1 ?C (97 ?F), resp. rate 18, height 1.6 m (5' 3"), weight 75.8 kg (167 lb), last menstrual period 09/11/2000, SpO2 98%. Constitutional: no acute distress Cardiovascular: regular rate Respiratory: respirations unlabored on room air Gastrointestinal: soft, non-distended, non tender Labs: CBC BMP PT/INR WBC (10*3/?L) Date Value 02/03/2024 3.83 (L) NA (mmol/L) Date Value 02/03/2024 135 No results found for: "PT" RBC (10*6/?L) Date Value 02/03/2024 2.01 (L) K (mmol/L) Date Value 02/03/2024 3.4 (L) INR (no units) Date Value 02/03/2024 1.3 PLT (10*3/?L) Date Value 02/03/2024 101 (L) CALCIUM (mg/dL) Date Value 02/03/2024 7.8 (L) HGB (g/dL) Date Value 02/03/2024 6.1 (L) CL (mmol/L) Date Value 02/03/2024 105 aPTT HCT (%) Date Value 02/03/2024 17.8 (L) BUN (mg/dL) Date Value 02/03/2024 16 APTT Patient (Seconds) Date Value 02/03/2024 28 CREATININE (mg/dL) Date Value 02/03/2024 0.64 Radiology: See HPI Procedure: [address] hematuria catheter was placed in the usual sterile fashion without difficulty, 10 cc of sterile water placed into gracia balloon. Aseptic technique was used to inject 1 L sterile water through the catheter drainage port using a 50 cc catheter-tip syringe. The bladder was manually flushed and ~ 50 cc of clot was evacuated. The patient tolerated the procedure well. CBI initiated on medium drip upon completion of procedure. 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 Urology consulted for assistance with management. Patient is voiding well without difficulty however is passing large clots. 3-way gracia placed, manual irrigation performed and CBI started. No severe clot burden noted. MELD 3.0: 15 at 02/03/2024 12:00 AM MELD-Na: 11 at 02/03/2024 12:00 AM Calculated from: Serum Creatinine: 0.64 mg/dL (Using min of 1 mg/dL) at 02/03/2024 12:00 AM Serum Sodium: 135 mmol/L at 02/03/2024 12:00 AM Total Bilirubin: 1.5 mg/dL at 02/03/2024 12:00 AM Serum Albumin: 2.5 g/dL at 02/03/2024 12:00 AM INR(ratio): 1.3 at 02/03/2024 12:00 AM Age at listing (hypothetical): 63 years Sex: Female at 02/03/2024 12:00 AM Recommendations: -- Continue appropriate resuscitation for anemia, transfuse per protocol -- Continue CBI today, possible clamp trial in AM pending hematuria status -- No indication for surgical intervention from Urology at this point, will trial conservative management of radiation cystitis -- NPO past midnight in case surgical intervention is needed -- 1x rocephin dose given for manual irrigation prophylaxis -- Please avoid any anticoagulation or antiplatelet agents -- Management of remaining medical conditions per primary Discussed with Dr. Fletcher. Marisol Hatfield MD Urology Resident Pager: please page/call on-call using [employer] I personally examined the patient on 02/04/[address] Hatfield's resident note as written. I actively participated in the decision-making process. Please see the resident's note for additional details. Bertin Adame MD 02/04/2024 11:46 AM URO-UROLOGY STAFF [facility] 2023-12-24 15:43:16 VASCULAR AND INTERVENTIONAL RADIOLOGY CONSULT NOTE 12/24/2023 Referring physician/service: Urology Chief complaint: Portal vein thrombosis HPI: 63 year old year old female with history of hysterectomy for cervical ca, radiation cystitis c/b hematuria, was incidentally found to have a portal vein thrombosis on recent imaging. No Known Allergies Past Medical History: Diagnosis Date Cancer 2000 Cervical with total hysterectomy Hypothyroid 09/17/2014 Past Surgical History: Procedure Laterality Date APPENDECTOMY 1977 COLONOSCOPY N/A 04/21/2022 Surgeon: Radha Pena MD; Location: [facility] OR LOCATION COLONOSCOPY N/A 01/23/2023 Surgeon: Leroy Martel MD; Location: [facility] OR LOCATION CYSTOSCOPY WITH EVACUATION CLOTS (SHX) N/A 12/22/2023 Surgeon: Bertin Adame MD; Location: [facility] OR LOCATION DILATION AND CURETTAGE (SHX) HYSTERECTOMY No current facility-administered medications on file prior to encounter. Current Outpatient Medications on File Prior to Encounter Medication Sig Dispense Refill ferrous sulfate (IRON, FERROUS SULFATE,) 325 mg (65 mg iron) tablet Take 1 tablet by mouth every other day. 30 tablet 0 levothyroxine (SYNTHROID) 125 mcg tablet TAKE 1 TABLET BY MOUTH EVERY MORNING (Patient taking differently: 100 mcg.) 30 tablet 1 estradioL (ESTRACE) 0.01 % (0.1 mg/gram) vaginal cream Apply 1g vaginally at bedtime every night for 2 weeks and then apply 1g vaginally at bedtime 2 times per week 42.5 g 5 lisinopriL-hydrochlorothiazi de 20-25 mg per tablet Take 1 tablet by mouth in the morning. Review of Systems Constitutional: denies chills, denies fatigue and denies fever . Mouth/Throat: negative. Neck: negative Cardiovascular: denies chest pain and denies palpitations. Respiratory: denies cough , denies shortness of breath and denies wheezing. Gastrointestinal: negative. Genitourinary: no further hematuria at this time. Musculoskeletal: denies back pain, denies joint pain, denies muscle pain and denies weakness. Skin: negative. Neuro: negative. Endocrine: negative. Hem/Lymph: negative. Vitals: 12/24/23 0509 12/24/23 0715 12/24/23 0717 12/24/23 1105 BP: 107/54 114/44 109/51 123/55 Pulse: 61 58 58 69 Resp: 18 17 18 Temp: 37 ?C (98.6 ?F) 36.4 ?C (97.5 ?F) 36 ?C (96.8 ?F) TempSrc: Oral SpO2: 97% 94% 97% Weight: Height: Physical Exam Appearance: patient alert and in no acute distress Oropharynx: moist mucus membranes Neck: supple, no lymphadenopathy or thyromegaly Cardiovascular: regular rate and rhythm, no murmur and S1, S2 Respiratory: clear to auscultation and percussion, bilaterally Abdomen: soft, non-tender, non-distended Extremities: feet normal, good pulses, normal color, temperature and sensation Musculoskeletal: no clubbing, cyanosis or edema Neurologic: normal gait and station, central nerves II - XII intact Psychiatric: alert, oriented, with appropriate affect Skin: skin color, texture and turgor are normal; no bruising, rashes or lesions noted Labs Radiology CT A/P triple phase reviewed showing portal vein thrombosis without cavernous transformation. SMV and splenic veins remain patent. Large splenorenal shunt present. Most recent imaging has been reviewed in PACS and plan discussed with Dr. Bueno. Assessment and Plan 63 year old female with Portal vein thrombosis and known cirrhosis. Also history of cervical cancer s/p hysterectomy with radiation cystitis c/b hematuria. -Discussed possible options at bedside including thrombectomy, TIPS, TIPS+thrombectomy, and anticoagulation. Patient and family would like to proceed with thrombectomy without systemic anticoagulation post procedure, knowing that the portal vein thrombosis may recur and may result in repeat procedure or the need for a TIPS and systemic anticoagulation. Benton Cisse MD, PGY 5 Interventional Radiology - Integrated Associated attestation - Nahomi Bueno MD - 12/24/2023 6:29 PM CDT I, Dr. Nahomi Bueno, have reviewed and agree with the resident's note. No acute intervention at this time, given patient is asymptomatic with normal LFTs and is also currently not on anticoagulation (thrombectomy involves administration of systemic heparinization during and after the procedure). With no AC, patient is currently at risk of clot progression into the mesenteric veins and also risk of cavernous transformation of portal vein and it associated sequelae. Recommend starting heparin drip. If patient tolerates heparin, then will evaluate for possible thrombectomy either as inpatient or outpatient. If patient re-bleeds while on AC, then TIPS-Thrombectomy would be the only option to maintain portal patency without using (minimal use) of AC. If patient develops hematuria while on AC, then repeat fulguration with Urology vs embolization with IR can be considered. All the options were discussed in detail with the patient and all questions were answered. Please call IR with any questions or concerns. RAD-VASCULAR & INTERVENTIONAL RADIOLOGY [facility] 2023-12-22 16:00:37 Associated Order(s): CONSULT GASTROENTEROLOGY Department of Gastroenterology & Hepatology Consult Note Requesting Physician: Bertin Adame MD Service: Uro Reason for Consultation: cirrhosis, PVT Date of Service: 12/22/2023 History of Present Illness Rowan Bonilla is a 63 year old /White female with past medical history of cervical cancer status post chemoradiotherapy, alcohol abuse, imaging findings consistent with cirrhosis who presents with radiation cystitis. GI consulted for signs of cirrhosis and suspected portal venous thrombosis. Patient was seen post cystoscopy. Patient's somnolent. History obtained from chart review. Per chart review, image findings suggestive of cirrhosis since 2021. Patient drinks alcohol daily, reports drinking a liter of whiskey per week. Denies family history of liver disease. CT abdomen pelvis this admission showing occlusion of portal vein and image findings suggestive of cirrhosis. Small amount of free fluid noted in pelvis. PAST MEDICAL HISTORY Past Medical History: Diagnosis Date Cancer 2000 Cervical with total hysterectomy Hypothyroid 09/17/2014 PAST SURGICAL HISTORY Past Surgical History: Procedure Laterality Date APPENDECTOMY 1977 COLONOSCOPY N/A 04/21/2022 Surgeon: Radha Pena MD; Location: [facility] OR [facility] COLONOSCOPY N/A 01/23/2023 Surgeon: Leroy Martel MD; Location: [facility] OR LOCATION DILATION AND CURETTAGE (SHX) HYSTERECTOMY FAMILY HISTORY Family History Problem Relation Age of Onset Cancer Father Rectal Cancer High cholesterol Maternal Aunt Cancer Paternal Uncle Rectal Cancer Arthritis NoFHx Asthma NoFHx defects NoFHx Breast Cancer NoFHx Colon Cancer NoFHx Ovarian Cancer NoFHx Uterine Cancer NoFHx Genetic NoFHx Heart NoFHx Mental retardation NoFHx Neurological NoFHx Osteoporosis NoFHx Psychiatry NoFHx Depression Daughter 2014 Diabetes Daughter Hypertension Daughter ALLERGIES No Known Allergies MEDICATIONS Current Facility-Administered Medications Medication Dose Route Frequency Last Rate Last Admin [START ON 12/23/2023] foLIC acid (FOLATE) tablet 1 mg 1 mg Oral DAILY lactated ringers IV infusion 1,000 mL 1,000 mL IV Infusion CONTINUOUS lactulose (CEPHULAC) 10 gram/15 mL oral solution 30 mL 30 mL Oral BID [START ON 12/23/2023] levothyroxine (SYNTHROID) tablet 125 mcg 125 mcg Oral QAM-0600 [START ON 12/23/2023] lisinopriL (PRINIVIL,ZESTRIL) tablet 10 mg 10 mg Oral DAILY oxazepam (SERAX) capsule 15 mg 15 mg Oral Q6H TAPER 15 mg at 12/22/23 1251 Followed by [START ON 12/23/2023] oxazepam (SERAX) capsule 15 mg 15 mg Oral Q8H TAPER Followed by [START ON 12/24/2023] oxazepam (SERAX) capsule 15 mg 15 mg Oral Q12H TAPER oxazepam (SERAX) capsule 15 mg 15 mg Oral Q4HPRN thiamine (VITAMIN B1) 100 mg in NaCl 0.9% (NS) piggyback 100 mg IV Piggyback TID 100 mL/hr at 12/22/23 1549 100 mg at 12/22/23 1549 [START ON 12/25/2023] thiamine mononitrate (VITAMIN B-1 (MONONITRATE)) tablet 100 mg 100 mg Oral TID vitamin B-12 (CYANOCOBALAMIN) tablet 1,000 mcg 1,000 mcg Oral DAILY 1,000 mcg at 12/22/23 1250 cefTRIAXone (ROCEPHIN) 1,000 mg in NaCl 0.9% (NS) 100 mL MINI-BAG 1,000 mg IV Piggyback Q24H ABX Stopped at 12/22/23 0249 NaCl 0.9% (NS) IV infusion 1,000 mL 1,000 mL IV Infusion CONTINUOUS 42 mL/hr at 12/22/23 1148 Restarted at 12/22/23 1148 sodium chloride 0.9 % irrigation solution 3,000 mL 3,000 mL Irrigation PRN sodium ferric gluconate (FERRLECIT) 125 mg in NaCl 0.9% (NS) 100 mL IV piggyback 125 mg IV Piggyback DAILY Stopped at 12/21/23 1411 thiamine (VITAMIN B1) 100 mg in NaCl 0.9% (NS) piggyback 100 mg IV Piggyback DAILY acetaminophen (TYLENOL) tablet 650 mg 650 mg Oral Q6HPRN 650 mg at 12/22/23 1152 atorvastatin (LIPITOR) tablet 40 mg 40 mg Oral QHS 40 mg at 12/21/23 203 ondansetron (ZOFRAN (PF)) injection 4 mg 4 mg Slow IV Push Q6HPRN SOCIAL HISTORY Social History Socioeconomic History Marital status: Spouse name: Not on file Number of children: Not on file Years of education: Not on file Highest education level: Not on file Occupational History Not on file Tobacco Use Smoking status: Former Current packs/day: 0.00 Types: Cigarettes Quit date: 2009 Years since quittin.6 Passive exposure: Past Smokeless tobacco: Never Substance and Sexual Activity Alcohol use: Yes Comment: social use-once every other week, beer-daily Drug use: Yes Types: Marijuana Sexual activity: Not Currently Comment: no history of domestic/sexual violence Other Topics Concern Not on file Social History Narrative Patient denies any violence or domestic abuse. Social Determinants of Health Financial Resource Strain: Low Risk (12/21/2023) Overall Financial Resource Strain (CARDIA) Difficulty of Paying Living Expenses: Not hard at all Food Insecurity: No Food Insecurity (12/21/2023) Hunger Vital Sign Worried About Running Out of Food in the Last Year: Never true Ran Out of Food in the Last Year: Never true Transportation Needs: Not on file Physical Activity: Inactive (12/21/2023) Exercise Vital Sign Days of Exercise per Week: 0 days Minutes of Exercise per Session: 0 min Stress: Not on file Social Connections: Unknown (12/21/2023) Social Connection and Isolation Panel [NHANES] Frequency of Communication with Friends and Family: More than three times a week Frequency of Social Gatherings with Friends and Family: Not on file Attends Worship Services: Not on file Active Member of Clubs or Organizations: Not on file Attends Club or Organization Meetings: Not on file Marital Status: Intimate Partner Violence: Not on file Housing Stability: Low Risk (12/21/2023) Housing Stability Vital Sign Unable to Pay for Housing in the Last Year: No Number of Places Lived in the Last Year: 1 Unstable Housing in the Last Year: No ROS: 10 point review of systems was negative except for the above mentioned PE: BP 128/57 | Pulse 54 | Temp 35.5 ?C (95.9 ?F) | Resp 18 | Ht 1.575 m (5' 2") | Wt 78 kg (172 lb) | LMP 09/11/2000 (Exact Date) | SpO2 95% | BMI 31.46 kg/m? General: alert, in no apparent distress HEENT: EOMI, no scleral icterus Lungs: clear to auscultation bilaterally Cardio: regular rate and rhythm Abdomen: soft, non-tender, non-distended, no ascites, no hepatosplenomegaly Extremities: no edema, no clubbing or cyanosis Skin: no jaundice Neuro: no focal deficits, no asterixis LABORATORY HGB (g/dL) Date Value 12/22/2023 7.3 (L) 12/21/2023 7.9 (L) 12/21/2023 6.1 (L) PLT (10*3/?L) Date Value 12/22/2023 82 (L) 12/21/2023 84 (L) 12/21/2023 77 (L) INR (no units) Date Value 12/21/2023 1.1 11/22/2022 1.2 Hepatic Function Panel ALBUMIN (g/dL) Date Value 12/21/2023 2.4 (L) T PROTEIN (g/dL) Date Value 12/21/2023 5.0 (L) TOTAL BILI (mg/dL) Date Value 12/21/2023 0.9 BILI UNCON (mg/dL) Date Value 12/21/2023 0.3 BILI CONJ (mg/dL) Date Value 12/21/2023 0.0 ALTv (U/L) Date Value 12/21/2023 16 AST(SGOT) (U/L) Date Value 12/21/2023 47 (H) ALK PHOS (U/L) Date Value 12/21/2023 92 BMP NA (mmol/L) Date Value 12/22/2023 138 K (mmol/L) Date Value 12/22/2023 3.6 CALCIUM (mg/dL) Date Value 12/22/2023 7.9 (L) CL (mmol/L) Date Value 12/22/2023 112 (H) BUN (mg/dL) Date Value 12/22/2023 9 CREATININE (mg/dL) Date Value 12/22/2023 0.61 GLUCOSE (mg/dL) Date Value 12/22/2023 87 CO2 TOTAL (mmol/L) Date Value 12/22/2023 21 (L) RADIOLOGY: No final results containing an impression from the past 30 days were found. CHART REVIEW: Previous Endoscopy: see chart ASSESSMENT and PLAN Rwoan Bonilla is a 63 year old female with PMH as listed above, consulted Gastroenterology for Cirrhosis likely 2/2 EtOH use Meld-Na 7, CP-B PVT Previously compensated disease. Has had image findings suggestive of cirrhosis since 2021. In 2022, portal venous thrombus not noted however in the span of approximately 1 year now evidence of portal venous thrombosis. In order to determine chronicity of thrombus, would recommend discussion with radiology and for CT triple phase liver protocol. If cavernous transformation seen, and clot is suspected to be chronic would not advise anticoagulation. If clot is suspected to be acute in nature, would then advise upper endoscopy prior to initiation of anticoagulation. -Discussion with radiology and/or triple phase liver CT -Agree with lactulose as somnolence may be manifestation of hepatic encephalopathy -No indication for diuretics at this time Patient was seen and discussed with Dr. Andrew , please call with any questions. Stephanie Fong, DO Gastroenterology & Hepatology PGY 6 Associated attestation - Hank Andrew MD - 12/23/2023 12:57 PM CDT I personally examined the patient on 12/22/[address] Fong's resident/fellow note as written. I actively participated in the decision-making process. Please see the resident/fellow's note for additional details. Hank Andrew MD [facility] [employer] Up Mechan[employer] Gastroenterology IM-GASTROENTEROLOGY [facility] 2023-12-22 11:57:41 Associated Order(s): CONSULT SURGICAL CO-MANAGEMENT (SCM) [facility] Division of General Medicine Surgical Co-Management (SCM) Service Initial Postoperative Consultation Note Patient: Rowan Bonilla Date of Service: 12/22/2023 Hospitalization Day: Hospital Day: 3 Age: [age] year old Post-op Day: If s/p a procedure: Day of Surgery Referring Physician: Bertin Adame MD Reason for Consult: Management of medical conditions during this hospitalization. Chief Complaint / Reason for Hospital Admission: Nausea and vomiting, unspecified vomiting type Procedure Details: 12/22/2023 Procedure(s): CYSTOSCOPY WITH EVACUATION CLOTS (N/A) 1 Hr 30 Min 41 Sec Surgical and Procedural Summary Past and Present Procedures (11/22/2023 to Today) Date Procedure/Visit Type Providers Status 12/22/2023 CYSTOSCOPY WITH EVACUATION CLOTS Bertin Adame (Primary)Ciro Wick Elias Inpatient HPI: 63-year-old female with past medical history significant for hypertension, hyperlipidemia, hypothyroidism, history of cervical cancer status post total hysterectomy/chemo and radiation therapy in early presented with hematuria and symptomatic anemia. Patient is currently status post cystoscopy with clot evacuation and fulguration of bleeders 12/22/2023. Surgical comanagement has been consulted for medical management of comorbidities and assistance with management of newfound cirrhosis for which GI has also been consulted. 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 Hypothyroid 09/17/2014 Tobacco use disorder 09/17/2014 Past Surgical History: Procedure Laterality Date APPENDECTOMY 1977 COLONOSCOPY N/A 04/21/2022 Surgeon: Radha Pena MD; Location: [facility] OR [facility] COLONOSCOPY N/A 01/23/2023 Surgeon: Leroy Martel MD; Location: [facility] OR LOCATION DILATION AND CURETTAGE (SHX) HYSTERECTOMY Social History Socioeconomic History Marital status: Spouse name: Not on file Number of children: Not on file Years of education: Not on file Highest education level: Not on file Occupational History Not on file Tobacco Use Smoking status: Former Current packs/day: 0.00 Types: Cigarettes Quit date: 2009 Years since quittin.6 Passive exposure: Past Smokeless tobacco: Never Substance and Sexual Activity Alcohol use: Yes Comment: social use-once every other week, beer-daily Drug use: Yes Types: Marijuana Sexual activity: Not Currently Comment: no history of domestic/sexual violence Other Topics Concern Not on file Social History Narrative Patient denies any violence or domestic abuse. Social Determinants of Health Financial Resource Strain: Low Risk (12/21/2023) Overall Financial Resource Strain (CARDIA) Difficulty of Paying Living Expenses: Not hard at all Food Insecurity: No Food Insecurity (12/21/2023) Hunger Vital Sign Worried About Running Out of Food in the Last Year: Never true Ran Out of Food in the Last Year: Never true Transportation Needs: Not on file Physical Activity: Inactive (12/21/2023) Exercise Vital Sign Days of Exercise per Week: 0 days Minutes of Exercise per Session: 0 min Stress: Not on file Social Connections: Unknown (12/21/2023) Social Connection and Isolation Panel [NHANES] Frequency of Communication with Friends and Family: More than three times a week Frequency of Social Gatherings with Friends and Family: Not on file Attends Worship Services: Not on file Active Member of Clubs or Organizations: Not on file Attends Club or Organization Meetings: Not on file Marital Status: Intimate Partner Violence: Not on file Housing Stability: Low Risk (12/21/2023) Housing Stability Vital Sign Unable to Pay for Housing in the Last Year: No Number of Places Lived in the Last Year: 1 Unstable Housing in the Last Year: No Family History Problem Relation Age of Onset Cancer Father Rectal Cancer High cholesterol Maternal Aunt Cancer Paternal Uncle Rectal Cancer Arthritis NoFHx Asthma NoFHx defects NoFHx Breast Cancer NoFHx Colon Cancer NoFHx Ovarian Cancer NoFHx Uterine Cancer NoFHx Genetic NoFHx Heart NoFHx Mental retardation NoFHx Neurological NoFHx Osteoporosis NoFHx Psychiatry NoFHx Depression Daughter 2015 Diabetes Daughter Hypertension Daughter Home medications: No current facility-administered medications on file prior to encounter. Current Outpatient Medications on File Prior to Encounter Medication Sig Dispense Refill ferrous sulfate (IRON, FERROUS SULFATE,) 325 mg (65 mg iron) tablet Take 1 tablet by mouth every other day. 30 tablet 0 levothyroxine (SYNTHROID) 125 mcg tablet TAKE 1 TABLET BY MOUTH EVERY MORNING (Patient taking differently: 100 mcg.) 30 tablet 1 estradioL (ESTRACE) 0.01 % (0.1 mg/gram) vaginal cream Apply 1g vaginally at bedtime every night for 2 weeks and then apply 1g vaginally at bedtime 2 times per week 42.5 g 5 lisinopriL-hydrochlorothiazi de 20-25 mg per tablet Take 1 tablet by mouth in the morning. Current Medications: Scheduled meds: [START ON 12/23/2023] foLIC acid, 1 mg, DAILY lactulose (CEPHULAC) 20 g/30 mL oral solution, 30 mL, BID [START ON 12/23/2023] levothyroxine, 125 mcg, QAM-0600 [START ON 12/23/2023] lisinopriL, 10 mg, DAILY oxazepam, 15 mg, Q6H TAPER Followed by [START ON 12/23/2023] oxazepam, 15 mg, Q8H TAPER Followed by [START ON 12/24/2023] oxazepam, 15 mg, Q12H TAPER thiamine (VITAMIN B1) 100 mg in NaCl 0.9% (NS) piggyback, 100 mg, TID [START ON 12/25/2023] thiamine mononitrate, 100 mg, TID vitamin B-12, 1,000 mcg, DAILY cefTRIAXone (ROCEPHIN) IV Piggyback, 1,000 mg, Q24H ABX sodium ferric gluconate (FERRLECIT) 125 mg in NaCl 0.9% (NS) 100 mL IV piggyback, 125 mg, DAILY thiamine (VITAMIN B1) 100 mg in NaCl 0.9% (NS) piggyback, 100 mg, DAILY atorvastatin, 40 mg, QHS IV meds: lactated ringers NaCl 0.9% (NS), Last Rate: 42 mL/hr at 12/22/23 1148 PRN meds: oxazepam, 15 mg, Q4HPRN sodium chloride, 3,000 mL, PRN acetaminophen, 650 mg, Q6HPRN ondansetron, 4 mg, Q6HPRN ALLERGIES: No Known Allergies REVIEW OF SYSTEMS All systems negative except as otherwise stated in HPI PHYSICAL EXAM Temperature over last 24 hours: Temp (24hrs), Av.3 ?C (97.4 ?F), Min:35.8 ?C (96.4 ?F), Max:36.8 ?C (98.2 ?F) Vitals: 12/22/23 1038 12/22/23 1045 12/22/23 1059 12/22/23 1114 BP: 132/48 (!) 143/56 136/58 Pulse: 62 60 55 53 Resp: Temp: 35.8 ?C (96.4 ?F) TempSrc: SpO2: 98% 99% 100% 96% Weight: Height: Physical Exam Constitutional: Appearance: Normal appearance. HENT: Head: Normocephalic. Mouth/Throat: Mouth: Mucous membranes are moist. Pharynx: Oropharynx is clear. Cardiovascular: Rate and Rhythm: Normal rate and regular rhythm. Pulmonary: Effort: Pulmonary effort is normal. Breath sounds: Normal breath sounds. Abdominal: General: Bowel sounds are normal. Palpations: Abdomen is soft. Musculoskeletal: Cervical back: Normal range of motion and neck supple. Neurological: Mental Status: She is alert. Patient Lines/Drains/Airways Status Active LDAs Name Placement date Placement time Site Days Peripheral IV 12/20/23918 Left Hand Ultrasound not used 12/20/23918 Hand 2 Peripheral IV 12/21/232311 Right Antecubital Ultrasound Used 12/21/23 231 Antecubital less than 1 Urethral Catheter Latex 22 fr 12/22/23 1002 -- less than 1 Intake/Output Summary (Last 24 hours) at 12/22/2023 1157 Last data filed at 12/22/2023 1036 Gross per 24 hour Intake 2405 ml Output 1000 ml Net 1405 ml Labs/Imaging - reviewed: Recent Labs 12/20/23 0920 12/21/23 0329 12/21/23 1704 12/22/23 0508 WBC 5.03 3.16* 4.44 3.23* HGB 6.3* 6.1* 7.9* 7.3* HCT 20.1* 19.1* 24.7* 22.7* PLT 103* 77* 84* 82* Recent Labs 12/20/23 0920 12/21/23 0329 12/22/23 0508 NA 138 137 138 K 3.1* 3.8 3.6 CL 106 109* 112* TCO2 24 23 21* BUN 13 10 9 CREAT 0.71 0.80 0.61 GLU 109 93 87 MG 1.9 1.9 -- CA 8.4* 8.0* 7.9* Recent Labs 12/21/23 1142 PTPAT 13.3* PTINR 1.1 APTTPAT 28 Recent Labs 12/20/23 0911 UPROTEIN 100 mg/dL* UGLUCOSE 100 mg/dL* UKETONES Negative UBILI Small* ULEUKEST Negative UNITRITE Negative USPGRAV 1.023 Lab Results Component Value Date/Time GLU 87 12/22/2023 05:08 AM Most Recent UA: Recent Labs 12/20/23 0911 UPROTEIN 100 mg/dL* UPH 6.0 UGLUCOSE 100 mg/dL* UKETONES Negative UBILI Small* ULEUKEST Negative UNITRITE Negative USPGRAV 1.023 ASSESSMENT & PLAN: 63-year-old female with past medical history significant for hypertension, hyperlipidemia, hypothyroidism, history of cervical cancer status post total hysterectomy/chemo and radiation therapy in early presented with hematuria and symptomatic anemia. Patient is currently status post cystoscopy with clot evacuation and fulguration of bleeders 12/22/2023. Surgical comanagement has been consulted for medical management of comorbidities and assistance with management of newfound cirrhosis for which GI has also been consulted. 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 Given the blood pressure we will resume lisinopril 10 mg for now - Patient is on home dose of levothyroxine 125 mcg however while in-house she was only started on 100 mcg dose. We will adjust to 125 mcg daily given the abnormal TFTs Patient has elevated ammonia which could be multifactorial in cause. However given the history of cirrhosis we will start patient on lactulose 3 times daily for now and titrate to 3 bowel movements per day - We will send hepatitis panel and lipid panel. - Given alcohol use will start patient on oxazepam taper. Thiamine IV 3 days followed by p.o. thiamine 3 times daily - Folic acid and Vitamin B12 repletion with 1000 mcg daily - Agree with GI eval for portal vein occlusion and diagnosis of cirrhosis. DVT Prophylaxis: Per Primary, None No LOS data to display I spent a total of 80 minutesin the following activities: PreCharting (eg, review of tests, notes, etc.), Obtaining and/or reviewing separately obtained history (Care Everywhere or paper records), Performing a medically appropriate examination and/or evaluation, Counseling and educating the patient/family/caregiver, Ordering medications, tests, or procedures, Ordering referrals and/or communicating with other health intensive care anaesthetist (when not separately reported), Documenting clinical information in the electronic or other health record, Independently interpreting results (not separately reported) and/or communicating results to the patient/family/caregiver, Care coordination (not separately reported), and Procedure performed and time excluded from Total Time. Delmar Greer MD 12/22/23 11:57 AM [facility] - Health History and Physical Notes Date/Time Note Provider Source 2024-02-03 01:44:48 MEDICINE [place] ADMIT H&P PCP: GINETTE Denton Date of Service: 02/03/2024 CHIEF COMPLAINT: hematuria HISTORY OF PRESENT ILLNESS Mrs. Bonilla 63 yr F w/ PMH cervical cancer s/p total hysterectomy/chemo/XRT (early ), chronic cystitis, hypothyroidism, HTN presents for 3 days of hematuria with associated weakness and fatigue. Reports passing a few clots - dime sized. She reports pressure when unable to pass urine however no pain or dysuria. Denies shortness of breath, chest pain. She reports post discharge last month she did not have issues with hematuria. She was seen in urology clinic 7 days ago. She has not yet found a facility for hyperbaric O2 therapy for radiation cystitis. Patient is no longer drinking (last drink 1 month ago). Denies FH of clotting disorders. Reports FH of prostate cancer in dad. In the ED, Vs 113/59 HR 87, RR 16, 100% O2. Labs- Hgb 6.2 (hgb 7-8), plt 113, K 3.4, T bili 1.5, Albumin 2.5, ammonia 66, AST, ALT, Alk phos normal, UA -red, > 182 RBC, INR 1.3 CHART REVIEW: patient was admitted to [facility] for hematuria 1 month ago. She underwent cystoscopy and clot evacuation. Cystostopy w/ no massess or lesions, but w/ diffuse vascular dilation of superficial vessels and multiple bleeding vessels identified and fulgurated. CT AP w/ cirrhotic liver disease and nearly completely occluded portal vein and its central branches. Clot determined to be acute w/ triple phase CT, and IR recommended anticoagulation. Pt underwent EGD, which showed no signs of active or prior bleeding, just small varices, so patient was started on heparin. However, she had hematuria after starting the heparin gtt, so a decision was made for her to undergo TIPS and thrombectomy. Tolerated procedure well, repeat CTA AP with residual thrombus. Underwent repeat thrombectomy with embolization of portosystemic varices/splenorenal shunts. PAST MEDICAL HISTORY Past Medical History: Diagnosis Date Cancer 2000 Cervical with total hysterectomy Coagulation defect 01/01/2024 Essential (primary) hypertension 12/09/2021 Hypothyroid 09/17/2014 Past Surgical History: Procedure Laterality Date APPENDECTOMY 1977 COLONOSCOPY N/A 04/21/2022 Surgeon: Radha Pena MD; Location: [facility] OR LOCATION COLONOSCOPY N/A 01/23/2023 Surgeon: Leroy Martel MD; Location: [facility] OR LOCATION CYSTOSCOPY WITH EVACUATION CLOTS ([facility]X) N/A 12/22/2023 Surgeon: Bertin Adame MD; Location: [facility] OR LOCATION DILATION AND CURETTAGE (SHX) ESOPHAGOGASTRODUODENOSCOPY Upper 12/27/2023 Surgeon: Hank Andrew MD; Location: ENDOSCOPY ([facility]) OR LOCATION HYSTERECTOMY Family History Problem Relation Age of Onset Cancer Father Rectal Cancer High cholesterol Maternal Aunt Cancer Paternal Uncle Rectal Cancer Arthritis NoFHx Asthma NoFHx defects NoFHx Breast Cancer NoFHx Colon Cancer NoFHx Ovarian Cancer NoFHx Uterine Cancer NoFHx Genetic NoFHx Heart NoFHx Mental retardation NoFHx Neurological NoFHx Osteoporosis NoFHx Psychiatry NoFHx Depression Daughter 2015 Diabetes Daughter Hypertension Daughter ALLERGIES No Known Allergies MEDICATIONS No current facility-administered medications on file prior to encounter. Current Outpatient Medications on File Prior to Encounter Medication Sig Dispense Refill amLODIPine 5 mg tablet Take 1 tablet by mouth in the morning. lisinopriL-hydrochlorothiazide 20-25 mg per tablet Take 1 tablet by mouth in the morning. atorvastatin 40 mg tablet Take 1 tablet by mouth at bedtime. 30 tablet 0 foLIC acid 1 mg tablet Take 1 tablet by mouth in the morning. 30 tablet 0 lactulose 10 gram/15 mL solution Take 30 mL by mouth in the morning. 946 mL 0 thiamine mononitrate 100 mg tablet Take 1 tablet by mouth in the morning and 1 tablet at noon and 1 tablet in the evening. 30 tablet 0 estradioL (ESTRACE) 0.01 % (0.1 mg/gram) vaginal cream Apply 1g vaginally at bedtime every night for 2 weeks and then apply 1g vaginally at bedtime 2 times per week (Patient not taking: Reported on 02/03/2024) 42.5 g 5 ferrous sulfate (IRON, FERROUS SULFATE,) 325 mg (65 mg iron) tablet Take 1 tablet by mouth every other day. 30 tablet 0 levothyroxine (SYNTHROID) 125 mcg tablet TAKE 1 TABLET BY MOUTH EVERY MORNING (Patient taking differently: 100 mcg.) 30 tablet 1 SOCIAL HISTORY Social History Tobacco Use Smoking status: Former Current packs/day: 0.00 Types: Cigarettes Quit date: 2009 Years since quittin.7 Passive exposure: Past Smokeless tobacco: Never Substance Use Topics Alcohol use: Yes Comment: social use-once every other week, beer-daily Drug use: Yes Types: Marijuana Patient lives in [place], [place] ROS: Positives are marked with bold letters. Negatives are not bold. Constitutional: fatigue, confusion, changes in mental status Skin: lesions, rashes, sores, discoloration. Eyes: double vision, blurring, tearing, loss of vision Cardiovascular: palpitations, chest pain, claudication. Respiratory: dyspnea, BARNETT, Cough. Gastrointestinal: nausea, vomiting, diarrhea, constipation, abdominal pain. Genitourinary: bladder incontinence, dysuria, hematuria. Musculoskeletal: myalgias, joint pain, decreased range of motion. Neurological: dizziness, tingling, neuropathic pain, headaches. Endocrine: heat or cold intolerance, polyphagia, polydipsia, polyuria, nocturia. Psychiatric: mood changes, depression All other systems negative. PHYSICAL EXAMINATION Vitals: 02/02/24 2322 02/03/24 0130 02/03/24 0200 BP: 113/59 130/45 138/50 Pulse: 87 75 84 Resp: 16 19 20 Temp: 37 ?C (98.6 ?F) TempSrc: Oral SpO2: 100% 100% 100% Weight: 75.8 kg (167 lb) PHYSICAL EXAM General: Alert oriented times three HEENT: Atraumatic, PERRLA Neck: Supple, no lymphadenopathy, no JVD, no bruits Lungs: Clear to auscultation bilaterally, no crackles or wheezing Cardio: Normal S1 and S2, no murmurs, rubs or gallops Abdomen: Soft non-tender, non distended, bowel sounds are present Extremities: 1+ edema BL Neuro: No focal deficits LABS - reviewed pertinent labs as below: Reviewed IMAGING - reviewed, pertinent results as below: reviewed ASSESSMENT/PLAN Rowan Bonilla is a 63 year old female with PMH as listed above, admitted to the hospital with: Hematuria Radiation cystitis cervical cancer s/p total hysterectomy/chemo/XRT Portal vein thrombus s/p thrombectomy Liver EtOH Cirrhosis s/p TIPS Thrombocytopenia Patient with coagulation issues 2/2 cirrhosis and hx of radiation presents with recurrent hematuria. Previous cytology showing pyruia with no signs of urothelial carcinoma. Hgb 6.2 (from baseline of 7-8) receiving 1 unit prbc in the ED. No signs of urinary obstruction. We will consult urology for evaluation possible clot obstruction. [facility] urology consult in AM - gracia in place - transfuse to keep Hgb > 7, active type and screen - social work in assisting finding facilities for hyperbaric O2 therapy which are in network. Portal vein thrombus s/p thrombectomy 01/03/24 Liver EtOH Cirrhosis s/p TIPS Patient underwent thrombectomy of PVT and TIPS due to recurrent hematuria. Will obtain repeat US for TIPS velocities and CTAP for TIPS patency and residual thrombus - CTA abdomen - US for TIPS velocities - resume lactulose, folic acid, thiamine Chronic issues Hypothyroidism HTN HLD - resume home levothyroxine - hold anti-htn Pain ppx: tylenol DVT ppx: CI GI ppx: NA Code Status: FULL Kim Greer DO Internal Medicine PGY3 [facility] Team Associated attestation - Pawel Gilmore MD - 02/03/2024 3:51 AM CDT I personally examined the patient on 02/03/[address] Greer's resident note as written. I actively participated in the decision-making process. Please see the resident's note for additional details. Pawel Gilmore MD Division of Internal Window TrimmerAssembly Machine Set Up [employer] [facility] 2023-12-31 18:46:21 Medicine Intensive Care History and Physical Date of Service: 12/31/2023 22:17 ICU day: 1 Intubation Day: N/A CHIEF COMPLAINT: S/P TIPS w/thrombectomy History of Present Illness Rowan Bonilla is a 63 year old female with a PMH of hypothyroidism, HTN, HLD, anemia, cervical cancer s/p total hysterectomy. She presented with N/V and hematuria x 3 weeks on 12/19. She was admitted and seen by urology on 12/20 and underwent cystoscopy and clot evacuation. Diffuse vascular dilation and bleeding was noted. CT abd/pelvis noted possible cirrhosis with portal hypertension with >90% thrombosis of the portal vein. EGD was performed 12/26 and was unremarkable except for portal gastropathy and recommended beta blockers and heparin. Hematuria returned on heparin, so TIPS and thrombectomy was ordered. On 12/30, IR performed TIPS procedure with embolization of portosystemic varices and splenorenal shunts. Patient is here s/p this procedure. She is not on any pressors or sedation. Requesting ice chips. C/o some neck pain in the area of the procedure (RIJ). Endorses a long history of alcohol use. Reports drinking a "big" bottle of whiskey every day until very recently. PAST MEDICAL HISTORY Past Medical History: Diagnosis Date Cancer 2000 Cervical with total hysterectomy Essential (primary) hypertension 12/09/2021 Hypothyroid 09/17/2014 PAST SURGICAL HISTORY Past Surgical History: Procedure Laterality Date APPENDECTOMY 1977 COLONOSCOPY N/A 04/21/2022 Surgeon: Radha Pena MD; Location: [facility] OR LOCATION COLONOSCOPY N/A 01/23/2023 Surgeon: Leroy Martel MD; Location: [facility] OR LOCATION CYSTOSCOPY WITH EVACUATION CLOTS ([facility]X) N/A 12/22/2023 Surgeon: Bertin Adame MD; Location: [facility] OR LOCATION DILATION AND CURETTAGE ([facility]X) ESOPHAGOGASTRODUODENOSCOPY Upper 12/27/2023 Surgeon: Hank Andrew MD; Location: ENDOSCOPY ([facility]) OR LOCATION HYSTERECTOMY FAMILY HISTORY Family History Problem Relation Age of Onset Cancer Father Rectal Cancer High cholesterol Maternal Aunt Cancer Paternal Uncle Rectal Cancer Arthritis NoFHx Asthma NoFHx defects NoFHx Breast Cancer NoFHx Colon Cancer NoFHx Ovarian Cancer NoFHx Uterine Cancer NoFHx Genetic NoFHx Heart NoFHx Mental retardation NoFHx Neurological NoFHx Osteoporosis NoFHx Psychiatry NoFHx Depression Daughter 2015 Diabetes Daughter Hypertension Daughter SOCIAL HISTORY Social History Socioeconomic History Marital status: Tobacco Use Smoking status: Former Current packs/day: 0.00 Types: Cigarettes Quit date: 2009 Years since quittin.6 Passive exposure: Past Smokeless tobacco: Never Substance and Sexual Activity Alcohol use: Yes Comment: social use-once every other week, beer-daily Drug use: Yes Types: Marijuana Sexual activity: Not Currently Comment: no history of domestic/sexual violence Social History Narrative Patient denies any violence or domestic abuse. Social Determinants of Health Financial Resource Strain: Low Risk (12/21/2023) Overall Financial Resource Strain (CARDIA) Difficulty of Paying Living Expenses: Not hard at all Food Insecurity: No Food Insecurity (12/21/2023) Hunger Vital Sign Worried About Running Out of Food in the Last Year: Never true Ran Out of Food in the Last Year: Never true Physical Activity: Inactive (12/21/2023) Exercise Vital Sign Days of Exercise per Week: 0 days Minutes of Exercise per Session: 0 min Social Connections: Unknown (12/21/2023) Social Connection and Isolation Panel [NHANES] Frequency of Communication with Friends and Family: More than three times a week Marital Status: Housing Stability: Low Risk (12/21/2023) Housing Stability Vital Sign Unable to Pay for Housing in the Last Year: No Number of Places Lived in the Last Year: 1 Unstable Housing in the Last Year: No ALLERGIES No Known Allergies REVIEW OF SYSTEMS Per HPI Vitals: 12/31/23 0406 12/31/23 0721 12/31/23 1113 12/31/231999 BP: 110/43 130/61 117/50 Patient Position: Sitting Pulse: 59 62 59 Resp: 20 18 17 Temp: 37.6 ?C (99.7 ?F) 37.2 ?C (98.9 ?F) 36.9 ?C (98.4 ?F) 36.3 ?C (97.3 ?F) TempSrc: Oral Axillary SpO2: 96% 96% 97% Weight: 78 kg (172 lb) Height: 1.575 m (5' 2") PHYSICAL EXAMINATION Constitutional: alert and oriented x 4 (person, place, date/time, and situation); no apparent distress HEENT: normocephalic atraumatic, extraocular movements intact Neck: Insertion site at RIJ w/o any drainage Resp: clear to auscultation bilaterally Cardio: 2/6 systolic murmur LSB GI: Soft, non-tender : not examined Rectal: not examined MSK: No LE edema bilaterally Integ: no rashes Neuro: no focal deficits, alert and oriented x 3 Labs (pertinent only)/Imaging: Labs (last 24 hours): Chemistry CBC LFTs Coags, other - - - - 3.74 (L) 7.9 (L) 62 (L) AST: - ALT: - PT: - INR: - - - - 25.1 (L) AP: - T Rl: - PTT: - eGFR: - Ca: - % Janell: 52.1 Prot: - Alb: - Lact: - Procal: - Mg: - PO4: - ANC: 1.95 pBNP: - Trop I: - No final results containing an impression from the past 2 days were found. Microbiology: No Cx in the ICU. Urine Cx from 12/20 suggests endogenous contamination. Assessment/Plan: Rowan Bonilla is a 63 year old female admitted due to S/P TIPS with thrombectomy FEN/GI Portal Vein Thrombosis Cirrhosis likely 2/2 EtOH Use S/P TIPS with Thrombectomy Here s/p TIPS procedure. HDS and on room air. CTA abd scheduled with IR tomorrow IR intervention appreciated, their recommendations include CTA abd and embolization of shunts based on the imaging study -Recheck CBC in PM and tomorrow AM -Scheduled thiamine, folic acid and B12 -carvedilol 3.125 mg PO BID -lactulose 10 g/15 mL PO -MELD labs in the AM Endo Hypothyroidism -Levothyroxine 125 mcg Insulin drip: None Neuro Sedation: None Analgesia: Acetaminophen 650 Q6h prn Resp She is stable on room air Vent: None NIPPV:None Cardiovascular Hyperlipidemia Atrial Septal Aneurysm -atorvastatin 40 mg QHS -systolic murmur noted at LSB. Prior echo from 2021 noted left atrial dilation and atrial septal aneurysm Pressors (mcg/kg/min): None ID No acute concerns Renal No acute concerns Stress ulcer prophylaxis: None Nutrition: NPO after midnight DVT prophylaxis: contraindicated Lines/Catheters: Insertion date: 12/30, Location: Gracia catheter Insertion date: 12/26, Location: PIV Left arm Insertion date: 12/30, Location: PIV Left hand Insertion date: 12/30, Location: Arterial Left radial Dispo: MICU Prognosis: Guarded Code Status: Full Code COMPLICATIONS/SECONDARY DIAGNOSIS James HernandezDO 12/31/23 Associated attestation - Bertin Bates DO - 01/01/2024 5:06 PM CDT I agree with the Resident's note. Please see the Resident's note for additional details. Bertin Bates DO Assembly Machine Set Up [employer] Division of Pulmonary & Critical Care Medicine [facility] 2023-12-21 20:47:26 UROLOGY HISTORY AND PHYSICAL NOTE Date of Service: 12/21/23 Faculty Attending: Dr. Adame Chief Complaint: hematuria History of Present Illness: Rowan Bonilla is a 63 year old female with history of hypothyroidism, hypertension, cervical cancer with a total hysterectomy + chemo and XRT (early ), who is admitted for hematuria onset three weeks. She reports remote hx of hematuria which has been generally intermittent and self resolving. In the last three weeks she has had worsening bleeding, however and she sought evaluation in [place] ED after she developed dizziness and vomitting. In [place] ED she was found to have symptomatic anemia (Hb 6.3) and was admitted for further workup. She had profound iron deficiency CTAP results discussed separately, however no obvious bladder abnormality noted. She was transfused two units PRBC and transferred for higher level care. On evaluation today she continues to have hematuria and is passing clot. Denies abdominal pain or nausea at this time. Denies hx of UTI, STD, urologic surgery. She had cystoscopy 03/[address] Diez which showed diffuse inflammation of bladder without discrete lesion, biopsy confirmed chronic cystitis. Of note, she has a hx of heavy ETOH use, up to 1 L liqour per day. She has been cutting back last several months and has 7-10 drinks per week at the moment. She continues to report some tremulousness with alcohol cessation after 2-3 days. CTAP concerning for chronic liver cirrhosis with portal hypertension and near complete occluded portal vein and central branches. Urinalysis non infected. Kidney function preserved. Hb 7.9 from 6.1 after two units PRBC. Coags normal. LFT largely wnl... AST 47. Ferritin 10.5. Iron 76. Folate 18.8. B-12 187 Home Medications: Medications Prior to Admission Medication Sig Dispense Refill Last Dose ferrous sulfate (IRON, FERROUS SULFATE,) 325 mg (65 mg iron) tablet Take 1 tablet by mouth every other day. 30 tablet 0 12/20/2023 levothyroxine (SYNTHROID) 125 mcg tablet TAKE 1 TABLET BY MOUTH EVERY MORNING (Patient taking differently: 100 mcg.) 30 tablet 1 12/20/2023 estradioL (ESTRACE) 0.01 % (0.1 mg/gram) vaginal cream Apply 1g vaginally at bedtime every night for 2 weeks and then apply 1g vaginally at bedtime 2 times per week 42.5 g 5 PRN lisinopriL-hydrochlorothiazide 20-25 mg per tablet Take 1 tablet by mouth in the morning. PRN [DISCONTINUED] atorvastatin 40 mg tablet Take 1 tablet by mouth at bedtime. not taking Histories: Past Medical History: Diagnosis Date Cancer 2000 Cervical with total hysterectomy Hypothyroid 09/17/2014 Past Surgical History: Procedure Laterality Date APPENDECTOMY 1977 COLONOSCOPY N/A 04/21/2022 Surgeon: Radha ePna MD; Location: [facility] OR [facility] COLONOSCOPY N/A 01/23/2023 Surgeon: Leroy Martel MD; Location: [facility] OR LOCATION DILATION AND CURETTAGE ([facility]X) HYSTERECTOMY Family History Problem Relation Age of Onset Cancer Father Rectal Cancer High cholesterol Maternal Aunt Cancer Paternal Uncle Rectal Cancer Arthritis NoFHx Asthma NoFHx defects NoFHx Breast Cancer NoFHx Colon Cancer NoFHx Ovarian Cancer NoFHx Uterine Cancer NoFHx Genetic NoFHx Heart NoFHx Mental retardation NoFHx Neurological NoFHx Osteoporosis NoFHx Psychiatry NoFHx Depression Daughter 2015 Diabetes Daughter Hypertension Daughter Social History Socioeconomic History Marital status: Spouse name: Not on file Number of children: Not on file Years of education: Not on file Highest education level: Not on file Occupational History Not on file Tobacco Use Smoking status: Former Current packs/day: 0.00 Types: Cigarettes Quit date: 2009 Years since quittin.6 Passive exposure: Past Smokeless tobacco: Never Substance and Sexual Activity Alcohol use: Yes Comment: social use-once every other week, beer-daily Drug use: Yes Types: Marijuana Sexual activity: Not Currently Comment: no history of domestic/sexual violence Other Topics Concern Not on file Social History Narrative Patient denies any violence or domestic abuse. Social Determinants of Health Financial Resource Strain: Low Risk (12/21/2023) Overall Financial Resource Strain (CARDIA) Difficulty of Paying Living Expenses: Not hard at all Food Insecurity: No Food Insecurity (12/21/2023) Hunger Vital Sign Worried About Running Out of Food in the Last Year: Never true Ran Out of Food in the Last Year: Never true Transportation Needs: Not on file Physical Activity: Inactive (12/21/2023) Exercise Vital Sign Days of Exercise per Week: 0 days Minutes of Exercise per Session: 0 min Stress: Not on file Social Connections: Unknown (12/21/2023) Social Connection and Isolation Panel [NHANES] Frequency of Communication with Friends and Family: More than three times a week Frequency of Social Gatherings with Friends and Family: Not on file Attends Worship Services: Not on file Active Member of Clubs or Organizations: Not on file Attends Club or Organization Meetings: Not on file Marital Status: Intimate Partner Violence: Not on file Housing Stability: Low Risk (12/21/2023) Housing Stability Vital Sign Unable to Pay for Housing in the Last Year: No Number of Places Lived in the Last Year: 1 Unstable Housing in the Last Year: No Allergies: No Known Allergies Review of Systems: Per HPI Physical Examination: Blood pressure (!) 167/60, pulse 57, temperature 36.7 ?C (98.1 ?F), resp. rate 18, height 1.575 m (5' 2"), weight 78 kg (172 lb), last menstrual period 09/11/2000, SpO2 96%. Constitutional: no acute distress Cardiovascular: regular rate Respiratory: respirations unlabored on room air Gastrointestinal: soft, non-distended, non tender Genitourinary: exam performed in presence of research chef... Digital vaginal exam negative for vaginal bleeding, no obvious urethral abnormalities. Skin: no rashes Neurologic: alert and oriented x3 Laboratory: Labs (last 24 hours): Chemistry CBC LFTs Coags, other 137 109 (H) 10 93 4.44 7.9 (L) 84 (L) AST: 47 (H) ALT: 16 PT: 13.3 (H) INR: 1.1 3.8 23 0.80 24.7 (L) AP: 92 T Rl: 0.9 PTT: 28 eGFR: 81.9 Ca: 8.0 (L) % Janell: 49.7 Prot: 5.0 (L) Alb: 2.4 (L) Lact: - Procal: - M.9 PO4: - ANC: 1.57 (L) pBNP: - Trop I: - Radiology: I independently visualized the images noted below. CT ABDOMEN PELVIS W CONTRAST Result Date: 12/20/2023 CT Abdomen and Pelvis with intravenous contrast. CLINICAL HISTORY: Hematuria, unknown cause. DOSE: Up-to-date CT equipment and radiation dose reduction techniques were employed. CTDIvol: 9.81 mGy. DLP: 479.51 mGy-cm. TECHNIQUE : Contiguous axial imaging from the level of the lung bases through the pubic symphysis were performed after the uncomplicated administration of nonionic contrast material. Coronal and sagittal reconstructions were obtained. Auto mA and/or iterative reconstruction were used to reduce radiation dose. FINDINGS: Lower lungs: Clear. No pleural effusion or pericardial effusion. Small sliding-type hiatal hernia noted. Liver, Gallbladder and Spleen: Liver is shrunken, 10.5 cm in length and showed nodular undulating serosal surface secondary to chronic liver disease,/cirrhosis with portal hypertension causing small amount of free fluid in the right paracolic gutter and in the pelvis, dilated collateral circulation surrounding spleen without any definite evidence of esophageal varices. 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 Spleen measures 11.5 x 7.5 cm. Thickened gallbladder wall is noted with fluid in the pericholecystic space, likely secondary to liver disease. Biliary ducts and pancreatic duct appear of normal size. Peritoneum: No free air or free fluid. Subcentimeter lymph nodes are seen in the periportal space and underneath the pancreas. Pancreas and Adrenals: Unremarkable pancreas and adrenal glands. Kidneys and Ureters: No visible calculi in the renal collecting systems. No hydroureter or hydronephrosis. No abnormal enhancement of the cortex of kidneys noted. Focal areas of cortical scarring seen in both kidneys. Vessels: Moderate to severe diffuse atherosclerosis of aorta and iliac arteries. No abdominal aortic aneurysm. Retroperitoneum: No abnormal fluid or lymphadenopathy. Bowel: Constipation noted with moderate amount of retained fecal material throughout large bowel except in the sigmoid and rectum. Mild diverticulosis of the proximal sigmoid/distal descending colon noted without any acute changes of diverticulitis. Bladder and Reproductive Organs: Slightly thickened bladder bucio noted. Urinary bladder is not opacified by the intravenously injected contrast medium. Bones: Exaggerated lumbar lordosis with mild levoscoliosis, grade 1 spondylolisthesis at L4-L5 and multilevel facet arthritis. Prominent Schmorl's node in the lower plate of L1 and T11 from remote trauma. No aggressive bone lesions or any acute bony pathology detected. Soft tissues: Bilateral small sized indirect type inguinal hernia containing fluid. CONCLUSION: 1. Evidence of chronic liver disease, possibly cirrhosis with portal hypertension, nearly completely occluded portal vein and its central branches within the liver parenchyma, small amount of free fluid in the pelvis. 2. Small hiatal hernia, small bilateral inguinal hernias. 3. S/P hysterectomy. 4. No kidney stones or kidney lesions. No gross pathology in the unopacified urinary bladder. Procedure: PVR 0 cc Assessment and Plan: 63 year old female with: 1. 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 Liver cirrhosis + portal vein occlusion and portal hypertension in background of ETOH abuse. Elevated Ammonia. Normal LFT's. - Gracia + CBI overnight - pre-procedural clears - possible cystoscopy and clot evacuation+ fulguration in AM (Case requested) - f/u morning Hb, transfuse for Hb < 7 - trend UO and creatinine - GI consult for liver findings - surgical co-management consult - thiamine Discussed case with faculty, Dr. Adame . Ciro Wick MD Urology Resident Pager: please page personal fitness manager using [employer] Associated attestation - Bertin Adame MD - 12/22/2023 8:53 AM CDT I personally examined the patient on 12/22/[address] Wick's resident note as written. I actively participated in the decision-making process. Please see the resident's note for additional details. Bertin Adame MD 12/22/2023 8:52 AM [facility] 2023-12-20 16:34:35 [facility] Hospitalist Admission H&P Date of Service: 12/20/2023 CHIEF COMPLAINT: Vomiting and bloody urine HISTORY OF PRESENT ILLNESS Rowan Bonilla is a 63 year old female with history of hypothyroidism, hypertension, cervical cancer with a total hysterectomy, HLD who presents with nausea vomiting and bloody urine. Patient report bloody urine for 3 weeks. Patient stated this morning she felt a little dizzy she took an iron tablet and she started vomiting after several hours. Patient found to be symptomatic in the ED with a hemoglobin of 6.3. Hospitalist consulted for inpatient mission and further evaluation. PAST MEDICAL HISTORY Past Medical History: Diagnosis Date Cancer 2000 Cervical with total hysterectomy Hypothyroid 09/17/2014 PAST SURGICAL HISTORY Past Surgical History: Procedure Laterality Date APPENDECTOMY 1977 COLONOSCOPY N/A 04/21/2022 Surgeon: Radha Pena MD; Location: [facility] OR [facility] COLONOSCOPY N/A 01/23/2023 Surgeon: Leroy Martel MD; Location: [facility] OR LOCATION DILATION AND CURETTAGE ([facility]X) HYSTERECTOMY ALLERGIES No Known Allergies MEDICATIONS Current home medication list reviewed: Current Discharge Medication List STOP taking these medications ferrous sulfate (IRON, FERROUS SULFATE,) 325 mg (65 mg iron) tablet Comments: Reason for Stopping: levothyroxine (SYNTHROID) 125 mcg tablet Comments: Reason for Stopping: estradioL (ESTRACE) 0.01 % (0.1 mg/gram) vaginal cream Comments: Reason for Stopping: lisinopriL-hydrochlorothiazide 20-25 mg per tablet Comments: Reason for Stopping: FAMILY HISTORY Family History Problem Relation Age of Onset Cancer Father Rectal Cancer High cholesterol Maternal Aunt Cancer Paternal Uncle Rectal Cancer Arthritis NoFHx Asthma NoFHx defects NoFHx Breast Cancer NoFHx Colon Cancer NoFHx Ovarian Cancer NoFHx Uterine Cancer NoFHx Genetic NoFHx Heart NoFHx Mental retardation NoFHx Neurological NoFHx Osteoporosis NoFHx Psychiatry NoFHx Depression Daughter 2015 Diabetes Daughter Hypertension Daughter SOCIAL HISTORY Social History Socioeconomic History Marital status: Tobacco Use Smoking status: Former Current packs/day: 0.00 Types: Cigarettes Quit date: 2009 Years since quittin.6 Passive exposure: Past Smokeless tobacco: Never Substance and Sexual Activity Alcohol use: Yes Comment: social use-once every other week, beer-daily Drug use: Yes Types: Marijuana Sexual activity: Not Currently Comment: no history of domestic/sexual violence Social History Narrative Patient denies any violence or domestic abuse. REVIEW OF SYSTEMS Constitutional: negative fevers/chills, weight changes Eyes: negative acute blurry vision, eye discharge Ears, Nose, Mouth, Throat: negative dysphagia, runny nose, sore throat, tinnitus Cardiovascular: negative chest pain, paplitaitons Respiratory: negative sob, cough Gastrointestinal: Positive for nausea, vomiting Genitourinary: Negative dysuria, hematuria Musculoskeletal: Positive for left leg swelling Integumentray: negative rash, itching Neurological: Positive for dizziness Psychiatric: negative hallucinations PHYSICAL EXAMINATION BP 124/52 | Pulse 63 | Temp 36 ?C (96.8 ?F) | Resp 16 | Ht 1.575 m (5' 2") | Wt 79.5 kg (175 lb 3.2 oz) | LMP 09/11/2000 (Exact Date) | SpO2 100% | BMI 32.04 kg/m? General: No acute distress HEENT: Normal oral mucosa, anicteric sclerae, NCAT Cardiovascular: RRR, strong symmetric radial pulses Lungs: CTAB Abdomen: Soft, NTND Musculoskeletal: Normal ROM, normal muscle mass Genitourinary: Normal Skin: No rash, lesions Neuro: AAOx3, no focal deficits Psych: Normal affect LABS - reviewed pertinent labs as below: CBC BMP PT/INR WBC (10*3/?L) Date Value 12/20/2023 5.03 NA (mmol/L) Date Value 12/20/2023 138 No results found for: "PT" RBC (10*6/?L) Date Value 12/20/2023 2.28 (L) K (mmol/L) Date Value 12/20/2023 3.1 (L) INR (no units) Date Value 11/22/2022 1.2 PLT (10*3/?L) Date Value 12/20/2023 103 (L) CALCIUM (mg/dL) Date Value 12/20/2023 8.4 (L) HGB (g/dL) Date Value 12/20/2023 6.3 (L) CL (mmol/L) Date Value 12/20/2023 106 aPTT HCT (%) Date Value 12/20/2023 20.1 (L) BUN (mg/dL) Date Value 12/20/2023 13 APTT Patient (Seconds) Date Value 11/22/2022 26 CREATININE (mg/dL) Date Value 12/20/2023 0.71 IMAGING - reviewed, pertinent results as below: Hospital Encounter on 12/20/23 CT ABDOMEN PELVIS W CONTRAST Narrative CT Abdomen and Pelvis with intravenous contrast. CLINICAL HISTORY: Hematuria, unknown cause. DOSE: Up-to-date CT equipment and radiation dose reduction techniques were employed. CTDIvol: 9.81 mGy. DLP: 479.51 mGy-cm. TECHNIQUE : Contiguous axial imaging from the level of the lung bases through the pubic symphysis were performed after the uncomplicated administration of nonionic contrast material. Coronal and sagittal reconstructions were obtained. Auto mA and/or iterative reconstruction were used to reduce radiation dose. FINDINGS: Lower lungs: Clear. No pleural effusion or pericardial effusion. Small sliding-type hiatal hernia noted. Liver, Gallbladder and Spleen: Liver is shrunken, 10.5 cm in length and showed nodular undulating serosal surface secondary to chronic liver disease,/cirrhosis with portal hypertension causing small amount of free fluid in the right paracolic gutter and in the pelvis, dilated collateral circulation surrounding spleen without any definite evidence of esophageal varices. 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 Spleen measures 11.5 x 7.5 cm. Thickened gallbladder wall is noted with fluid in the pericholecystic space, likely secondary to liver disease. Biliary ducts and pancreatic duct appear of normal size. Peritoneum: No free air or free fluid. Subcentimeter lymph nodes are seen in the periportal space and underneath the pancreas. Pancreas and Adrenals: Unremarkable pancreas and adrenal glands. Kidneys and Ureters: No visible calculi in the renal collecting systems. No hydroureter or hydronephrosis. No abnormal enhancement of the cortex of kidneys noted. Focal areas of cortical scarring seen in both kidneys. Vessels: Moderate to severe diffuse atherosclerosis of aorta and iliac arteries. No abdominal aortic aneurysm. Retroperitoneum: No abnormal fluid or lymphadenopathy. Bowel: Constipation noted with moderate amount of retained fecal material throughout large bowel except in the sigmoid and rectum. Mild diverticulosis of the proximal sigmoid/distal descending colon noted without any acute changes of diverticulitis. Bladder and Reproductive Organs: Slightly thickened bladder bucio noted. Urinary bladder is not opacified by the intravenously injected contrast medium. Bones: Exaggerated lumbar lordosis with mild levoscoliosis, grade 1 spondylolisthesis at L4-L5 and multilevel facet arthritis. Prominent Schmorl's node in the lower plate of L1 and T11 from remote trauma. No aggressive bone lesions or any acute bony pathology detected. Soft tissues: Bilateral small sized indirect type inguinal hernia containing fluid. CONCLUSION: 1. Evidence of chronic liver disease, possibly cirrhosis with portal hypertension, nearly completely occluded portal vein and its central branches within the liver parenchyma, small amount of free fluid in the pelvis. 2. Small hiatal hernia, small bilateral inguinal hernias. 3. S/P hysterectomy. 4. No kidney stones or kidney lesions. No gross pathology in the unopacified urinary bladder. ASSESSMENT/PLAN Rowan Bonilla 63 year old female to the hospital for: Acute Iron deficiency anemia Hgb 6.3 --Transfused 1 units of PRBCs -- Iron levels and stores low ferritin low will replace -- Bloody urine bleed -- monitor Hgb/HCT -- initiate/continue by mouth iron, -- transfuse for Hgb less than 7.0. -- CBC trend -- Hemoccult stools, -- serial H&H q 8 hours -- TSH 9.51 -- Start Iron infusion day 1 Hypothyroidism --Restart levothyroxine 100 mcg daily Hyperlipidemia --continue atorvastatin Hypertension --Patient takes lisinopril and hydrochlorothiazide 20/25 daily Prophylaxis: DVT-contraindicated due to bleeding Stress Ulcer: pantoprazole Advanced Care Planning (Z71.89) Above assessment and plan discussed at length with patient, patient expressed full understanding. Questions and concerned addressed, I spent 18 minutes discussing the advance care plan. Surrogate decision maker: self Level of care expected after discharge: home at discharge Code status: Full code Smoking Cessation: (Z71.6) Tobacco user?: Former smoker Observation [place] [employer] was viewed during this stay ELIEZER Arias Associated attestation - Dayan Nevarez MD - 12/20/2023 8:15 PM CDT I performed a substantial part of the MDM during this patient's hospital visit. I personally made or approved the documented management plan and acknowledge its risk of complications. I agree with the findings and documentation provided in the JOSSUE's notes. Patient is a 63 y/o F with a PMH of hypothyroidism, cervical cancer s/p a total hysterectomy/ XRT, anemia and gross hematuria s/p recent negative cystoscopy and colonoscopy who presented with symptomatic anemia due to gross hematuria. I agree with IVFs and blood transfusion. Plan for discharge home tomorrow if anemia improved overnight and for further outpatient urology work-up of hematuria. Medicine team will continue to provide daily care. Dayan Nevarez MD 12/20/2023 8:12 PM [facility] [id number] 2023-01-23 07:16:44 Formatting of this n ote is different from the original. Endoscopy H & P Age: [age] year old Sex: female ASA Class: III Indication: History of Colon Polyps Procedure: Colonoscopy Rowan Bonilla is a 62 year old female with PMHx hypothyroid, cervical cancer s/p hysterectomy who presents for history of colon polyps. Had colonoscopy 04/2022 which showed 15+ 2-9mm polyps (5 removed: 2 TA, 2 HP, and 1 SSA) also had poor bowel prep and therefore recommended repeat colonoscopy in 6 months. Sometimes noticed blood in stool and urine. No weight loss, abdominal pain, melena, diarrhea, constipation, change in bowel habits. Family history of Colon Cancer: no Antiplatelets/Anticoagulants: none Previous Colonoscopy: 04/2022: - Preparation of the colon was inadequate. - Five 2 to 9 mm polyps at the splenic flexure, in the transverse colon and at the hepatic flexure, removed with a cold biopsy forceps. Resected and retrieved. - Erythematous mucosa in the rectum, mild stricture. Biopsied. - more than 10 other polyps in DC and SC but not removed due to bradycardia/bronchospasm and poor prep. A. RECTUM, STRICTURE, BIOPSY: - RECTAL MUCOSA WITH NO PATHOLOGIC CHANGES B. COLON, SPLENIC FLEXURE, POLYPECTOMY X3: - TWO TUBULAR ADENOMAS - ONE HYPERPLASTIC POLYP C. COLON, TRANSVERSE, POLYPECTOMY: - HYPERPLASTIC POLYP D. COLON, HEPATIC FLEXURE, POLYPECTOMY: - SESSILE SERRATED ADENOMA Histories: Past Medical History: Diagnosis Date Cancer 2000 Cervical with total hysterectomy Hypothyroid 09/17/2014 Family History Problem Relation Age of Onset Cancer Father Rectal Cancer High cholesterol Maternal Aunt Cancer Paternal Uncle Rectal Cancer Arthritis NoFHx Asthma NoFHx defects NoFHx Breast Cancer NoFHx Colon Cancer NoFHx Ovarian Cancer NoFHx Uterine Cancer NoFHx Genetic NoFHx Heart NoFHx Mental retardation NoFHx Neurological NoFHx Osteoporosis NoFHx Psychiatry NoFHx Depression Daughter 2015 Diabetes Daughter Hypertension Daughter Past Surgical History: Procedure Laterality Date APPENDECTOMY 1977 COLONOSCOPY N/A 04/21/2022 Surgeon: Radha Pena MD; Location: [facility] DILATION AND CURETTAGE (SHX) HYSTERECTOMY No current facility-administered medications for this encounter. Current Outpatient Medications Medication Sig Dispense Refill peg-electrolyte soln [id number] -5.86 gram solution Take as directed before colonoscopy 8000 mL 0 estradioL (ESTRACE) 0.01 % (0.1 mg/gram) vaginal cream Apply 1g vaginally at bedtime every night for 2 weeks and then apply 1g vaginally at bedtime 2 times per week 42.5 g 5 atorvastatin 40 mg tablet Take 1 tablet by mouth at bedtime. lisinopriL-hydrochlorothiazide 20-25 mg per tablet Take 1 tablet by mouth in the morning. ferrous sulfate (IRON, FERROUS SULFATE,) 325 mg (65 mg iron) tablet Take 1 tablet by mouth every other day. 30 tablet 0 levothyroxine (SYNTHROID) 125 mcg tablet TAKE 1 TABLET BY MOUTH EVERY MORNING (Patient taking differently: 88 mcg.) 30 tablet 1 No Known Allergies Social History Socioeconomic History Marital status: Tobacco Use Smoking status: Former Types: Cigarettes Quit date: 2009 Years since quittin.7 Passive exposure: Past Smokeless tobacco: Never Substance and Sexual Activity Alcohol use: Yes Comment: social use-once every other week, beer-daily Drug use: Yes Types: Marijuana Sexual activity: Not Currently Comment: no history of domestic/sexual violence Social History Narrative Patient denies any violence or domestic abuse. Physical Exam: Mental Status: alert, oriented x3 Cardiovascular: regular rate Chest: unlabored on room air Abdomen: soft, non-distended, non-tender, no masses Impression and Plan: Rowan Bonilla is a 62 year old female with PMH as above who presents for history of colon polyps. Will proceed with colonoscopy. Benefits, risks, alternatives, and likelihood of achieving patient's goals of care discussed. Risks discussed including but not limited to aspiration, infection, bleeding, injury to the GI tract or surrounding vessels/structures, perforation, missed polyps/lesions, failure to obtain a diagnosis, failure to complete the procedure, cardiovascular complications such as ME, stroke, arrhythmia, and . Informed consent obtained/verified. Education provided to the patient about the procedure. Gerry Monroy MD Gastroenterology and Hepatology PGY-4 Associated attestation - Leroy Martel MD - 01/23/2023 9:23 AM CDT After discussion with Dr. Monroy, I examined this patient. I agree with the fellow's note as written. We are repeating her CBC prior to procedure- noted to have downtrend in platelets during recent admission. It also appears she has imaging findings of cirrhosis and recommended she return to clinic for evaluation. Leroy Martel MD Assembly Machine Set Up Mechanic Division [facility]astroenterology [facility]at[facility] Procedure Notes Date/Time Note Provider Source 2024-02-04 14:10:57 Procedure(s): CT CYSTO W/IRRIG & EVAC MULTPLE OBSTRUCTING CLOTS; CT CYSTO W/DESTRUCTION OF LESIONS Full Operative Note 02/04/2024 Faculty Surgeon: Bertin Adame MD Resident Surgeon: Kavon Enrique MD & Alexx Huizar MD Preoperative Diagnosis: Gross hematuria Postoperative Diagnosis: Gross hematuria EBL: <50 milliliters Specimens: none Drains: 22 [place] 3-way catheter connected to continuous bladder irrigation Complications: none Procedure: 1. Cystoscopy with clot evacuation and fulguration of bleeders (CPT 19396 & 10010) Findings: 20 cc organized clot within the bladder completely evacuated. B/l UOs were intact. Diffuse vascular dilation of superficial vessels. Multiple bleeding vessels identified and fulgurated, including vessels surrounding the trigone. At the conclusion of the case the bladder was hemostatic and UOs intact. Bladder remained full and a catheter was placed. The catheter was in the proper position. Procedure: The patient was taken to the operating room and was given a general anesthetic. She was therapeutic on antibiotics. The patient was put in lithotomy position with all bony prominences padded and bilateral intermittent pneumatic compression devices were placed and used throughout the case. The existing catheter was removed. The patient was prepped and draped in usual sterile fashion using povidone iodine paint. A time out was performed. A resectoscope was introduced into the bladder through the urethra. A small organized clot was visible obscuring the normal bladder urothelium. A bipolar loop was used to agitate the clot and the clot was evacuated. After the clot was completely evacuated the bladder was closely inspected. There was no bladder masses or lesions, and b/l UOs were intact and freely effluxing. There was diffuse vascular dilation of superficial vessels. Multiple bleeding vessels identified and fulgurated, including vessels surrounding the trigone. The bladder was confirmed to be hemostatic and all clots were evacuated. The bladder was left full and held its fullness. Bilateral ureteral orifices were observed to be intact at the end of the case. A 22 Citizen [place] 3-way catheter was placed into the bladder and continuous bladder irrigation was initiated.The patient tolerated the procedure well and was transferred to the post-anesthesia care unit in stable condition. Kavon Enrique MD Urology PGY5 Associated attestation - Bertin Adame MD - 02/04/2024 3:36 PM CDT I was present for and supervised the entire procedure. Bertin Adame MD 02/04/2024 3:36 PM [facility] 2023-12-31 14:18:26 Associated Order(s): Arterial Line Arterial Line Date/Time: 12/31/2023 1:20 PM Performed by: Rachel Lange CRNA Arterial Line Placement: Ultrasound-Guided: surface landmarks Patient Location: OR Indication: continuous blood pressure monitoring and blood sampling needed Staff: MOTORCYCLE MECHANIC: Rachel Lange CRNA Procedure Detail: Catheter Size: 20 gauge Catheter Length: 1 and 1/4 inch Catheter Type: Arrow Laterality: Left Site: Radial artery Line Secured: Tape and biopatch Preparation: Chloroprep and sterile gloves Events: Events: Patient tolerated procedure well with no complications NACR-NURSE SECOND MATE,CERTIFIED REGISTERED NURSE SECOND MATE [facility] 2023-12-31 14:14:09 Associated Order(s): Intubation Intubation Date/Time: 12/31/2023 1:09 PM Urgency: elective Airway not difficult General Information and Staff Patient location during procedure: OR Performed: resident/MOTORCYCLE MECHANIC Performed by: Rachel Lange CRNA Authorized by: Theodora Mazariegos MD Indications and Patient Condition Indications for airway management: anesthesia Sedation level: deep Mask difficulty assessment: 1 - vent by mask Final Airway Details Final airway type: endotracheal airway Successful airway: ETT Successful intubation technique: direct laryngoscopy Facilitating devices/methods: intubating stylet Endotracheal tube insertion site: oral Blade: [place] Blade size: #3 ETT size (mm): 7.0 Cormack-Lehane Classification: grade I - full view of glottis Placement verified by: chest auscultation and capnometry Measured from: teeth ETT to teeth (cm): 22 Number of attempts at approach: 1 [facility] 2023-12-22 10:12:10 Procedure(s): CT CYSTO W/IRRIG & EVAC MULTPLE OBSTRUCTING CLOTS; CT CYSTO W/DESTRUCTION OF LESIONS Full Operative Note 12/22/2023 Faculty Surgeon: Bertin Adame MD Resident Surgeon: Kavon Enrique MD & Ciro Wick MD Preoperative Diagnosis: Gross hematuria Postoperative Diagnosis: Gross hematuria EBL: <50 milliliters Specimens: none Drains: 22 [place] 3-way catheter connected to continuous bladder irrigation Complications: none Procedure: 1. Cystoscopy with clot evacuation and fulguration of bleeders (CPT 90827 & 96270) Findings: 10 cc organized clot within the bladder completely evacuated. B/l UOs were intact. Diffuse vascular dilation of superficial vessels. Multiple bleeding vessels identified and fulgurated. At the conclusion of the case the bladder was hemostatic and UOs intact. Bladder remained full and a catheter was placed. The catheter was in the proper position. Procedure: The patient was taken to the operating room and was given a general anesthetic. She was therapeutic on antibiotics. The patient was put in lithotomy position with all bony prominences padded and bilateral intermittent pneumatic compression devices were placed and used throughout the case. The existing catheter was removed. The patient was prepped and draped in usual sterile fashion using povidone iodine paint. A time out was performed. A resectoscope was introduced into the bladder through the urethra. A small organized clot was visible obscuring the normal bladder urothelium. A bipolar loop was used to agitate the clot and the clot was evacuated. After the clot was completely evacuated the bladder was closely inspected. There was no bladder masses or lesions, and b/l UOs were intact and freely effluxing. There was diffuse vascular dilation of superficial vessels. Multiple bleeding vessels identified and fulgurated. The bladder was confirmed to be hemostatic and all clots were evacuated. The bladder was left full and held its fullness. Bilateral ureteral orifices were observed to be intact at the end of the case. A 22 Citizen [place] 3-way catheter was placed into the bladder and continuous bladder irrigation was initiated.The patient tolerated the procedure well and was transferred to the post-anesthesia care unit in stable condition. Kavon Enrique MD Urology PGY5 Associated attestation - Bertin Adame MD - 12/22/2023 12:26 PM CDT I was present for and supervised the entire procedure. Bertin Adame MD 12/22/2023 12:26 PM [facility] Notes Date/Time Note Provider Source Jonatan Kapoor [facility]2024-09-27 00:00:[address] [facility]2024-09-26 10:14:43 Please fax referral to [phone], thanks JS [facility]2024-09-23 16:29:32 Problem: Falls, Risk of Goal: Absence of falls Outcome: Progressing as expected Problem: Bleeding, Risk of Goal: Absence of impaired coagulation signs and symptoms Outcome: Progressing as expected Goal: Absence of active bleeding Outcome: Progressing as expected Problem: Skin integrity Impaired (Risk or Actual) Goal: Wound healing Outcome: Progressing as expected Goal: Prevention of new skin breakdown Outcome: Progressing as expected Problem: Discharge Planning Goal: Adequate for discharge Outcome: Progressing as expected Goal: Effective communication Outcome: Progressing as expected [facility] Angela Navarro [id number] 16:56:51 Problem: Falls, Risk of Goal: Absence of falls Outcome: Progressing as expected Problem: Bleeding, Risk of Goal: Absence of impaired coagulation signs and symptoms Outcome: Progressing as expected Goal: Absence of active bleeding Outcome: Progressing as expected Problem: Skin integrity Impaired (Risk or Actual) Goal: Wound healing Outcome: Progressing as expected Goal: Prevention of new skin breakdown Outcome: Progressing as expected Problem: Discharge Planning Goal: Adequate for discharge Outcome: Progressing as expected Goal: Effective communication Outcome: Progressing as expected [facility]2024-09-22 11:30:19 Post void volume is 0mL [facility] Mirella Mccartney [id number] 05:57:58 Problem: Falls, Risk of Goal: Absence of falls Outcome: Progressing as expected Problem: Bleeding, Risk of Goal: Absence of impaired coagulation signs and symptoms Outcome: Progressing as expected Goal: Absence of active bleeding Outcome: Progressing as expected Problem: Skin integrity Impaired (Risk or Actual) Goal: Wound healing Outcome: Progressing as expected Goal: Prevention of new skin breakdown Outcome: Progressing as expected Problem: Discharge Planning Goal: Adequate for discharge Outcome: Progressing as expected Goal: Effective communication Outcome: Progressing as expected T [place] [address]-09-22 03:01:16 Patient admitted to [place] [id number]. Patient agrees to admission, discussed plan of care with patient and family. Patient is awake, alert, oriented, resp reg unlabored, color appropriate for race, PIV intact. No adverse reaction to medications administered while in ED. Belongings with patient to unit. Ashley Alfaro [place] 032434-09-22 03:00:32 Transportation at bedside. [place] [address]-09-22 02:27:[address] T Roly Muhammad [id number] 02:19:36 Report given to RN on [facility]. Transportation pending [place] [address]-09-22 01:50:39 Attempted to call report. RN unavailable. [place] [address]-09-22 01:44:26 Patient provided ice chips and water per Dr. Gilmore. Cheri Downey [id number] 01:38:28 Dr. Gilmore at bedside. [place] [address]-09-22 01:07:00 Blood transfusion consent completed and signed. Consent placed on pt's chart. [place] [address]-09-22 00:19:29 Pt placed on serial bp readings and pulse oximetry. [place] [address]-09-21 23:44:33 Pt amb to and from restroom. [place] [address]-09-21 23:29:25 Pt arrived to room 129 via stretcher from [facility]. [place] [address]-09-21 23:22:30 Rowan Bonilla is a 63 year old female received to triage in wheelchair accompanied by family member complaining of blood clots in urine. Patient states hx of stent in bladder, has been admitted for same issue, does not take blood thinners. Patient states small amount of pain when urinating, states blood clots have been ongoing since Sunday. [facility] Earnestine Cuellar [place] [address]-09-21 23:07:00 [facility] Emergency Department Note Patient Name: Rowan Bonilla Date of : 1960 63 year old female Treatment [facility]: [facility] Primary Care Physician: GINETTE Denton Patient Escorted by: Family [5] Mode of Arrival: Personal means [1] EMS Treatment Prior to ED Arrival: INTAKE MANAGER treatment: None Travel and Exposure Screening: Symptoms Does patient have any of these symptoms?: (not recorded) Exposure Screening Has patient had contact with someone with a communicable disease in the last month?: (not recorded) Diseases exposed to:: (not recorded) Is Patient ?: (not recorded) Exposure Date: (not recorded) Chief Complaint: Chief Complaint Patient presents with Hematuria History of Present Illness: This is a 63-year-old female, she has a history of radiation cystitis and unsure coagulopathy, she is coming in with 3 days of hematuria, slight weakness, no significant abdominal pain, no dysuria, no vomiting, no fevers, She has passed a few clots, urine is mostly pink and bright red color, is not thick and dark. Reviewed outside records and recent admission December 2023, she had portal vein thrombosis, she had a TIPS procedure to decrease varices, she had a thrombectomy, also developed hematuria at that time Requiring cystoscopy, fulguration of superficial bleeding vessels. Past Medical History/Immunizations: Past Medical History: Diagnosis Date Cancer 2000 Cervical with total hysterectomy Coagulation defect 01/01/2024 Essential (primary) hypertension 12/09/2021 Hypothyroid 09/17/2014 Tetanus received in last 5 years: Unknown Childhood immunizations: Up-to-date Allergies: No Known Allergies Past Social History: Tobacco Use Former; Cigarettes: Quit 2009 Passive Exposure: Past Smokeless Tobacco: Never used smokeless tobacco. Alcohol Use Yes. Comments: social use-once every other week, beer-daily Drug Use Yes; Marijuana. Sexual Activity Not currently sexually active. Comments: no history of domestic/sexual violence Past Surgical History: Past Surgical History: Procedure Laterality Date APPENDECTOMY 1977 COLONOSCOPY N/A 04/21/2022 Surgeon: Radha Pena MD; Location: [facility] OR LOCATION COLONOSCOPY N/A 01/23/2023 Surgeon: Leroy Martel MD; Location: [facility] OR LOCATION CYSTOSCOPY WITH EVACUATION CLOTS (SHX) N/A 12/22/2023 Surgeon: Bertin Adame MD; Location: [facility] OR LOCATION DILATION AND CURETTAGE (SHX) ESOPHAGOGASTRODUODENOSCOPY Upper 12/27/2023 Surgeon: Hank Andrew MD; Location: ENDOSCOPY ([facility]) OR LOCATION HYSTERECTOMY Review of Systems: Review of Systems All other systems reviewed and are negative. Physical Exam: ED Triage Vitals [02/02/24 2322] Weight 75.8 kg (167 lb) Actual or estimated Estimated by patient/family report Height BP 113/59 Pulse 87 Resp 16 Temp 37 ?C (98.6 ?F) Temp source Oral SpO2 100 % Measured on Room air Physical Exam Constitutional: Appearance: Normal appearance. HENT: Head: Normocephalic and atraumatic. Mouth/Throat: Mouth: Mucous membranes are dry. Cardiovascular: Rate and Rhythm: Normal rate. Pulmonary: Effort: No respiratory distress. Breath sounds: No stridor. Abdominal: General: There is no distension. Palpations: There is no mass. Tenderness: There is no abdominal tenderness. Skin: General: Skin is warm and dry. Coloration: Skin is pale. Neurological: Mental Status: She is alert. Radiology: No orders to display Lab Results: Lab Results PROTHROMBIN TIME / INR - Abnormal Result Value Ref Range PROTIME PATIENT 14.7 (*) 10.1 - 12.6 Seconds INR 1.3 BASIC METABOLIC PANEL (NA, K, CL, CO2, GLUCOSE, BUN, CREATININE, CA) - Abnormal NA 135 135 - 145 mmol/L K 3.4 (*) 3.5 - 5.0 mmol/L CL 105 98 - 108 mmol/L CO2 TOTAL 23 23 - 31 mmol/L AGAP 7 2 - 16 BUN 16 7 - 23 mg/dL GLUCOSE 157 (*) 70 - 110 mg/dL CREATININE 0.64 0.50 - 1.04 mg/dL CALCIUM 7.8 (*) 8.6 - 10.6 mg/dL eGFR 98.2 mL/min/1.73m2 HEPATIC FUNCTION PANEL (30468) (ALB,T.PRO,BILI T,BU/BC,ALT,AST,ALK PHOS) - Abnormal TOTAL BILI 1.5 (*) 0.1 - 1.1 mg/dL BILI UNCON 1.1 0.1 - 1.1 mg/dL BILI CONJ 0.0 0.0 - 0.3 mg/dL T PROTEIN 4.9 (*) 6.3 - 8.2 g/dL ALBUMIN 2.5 (*) 3.5 - 5.0 g/dL ALK PHOS 119 34 - 122 U/L ALTv 15 5 - 35 U/L AST(SGOT) 22 13 - 40 U/L AMMONIA, PLASMA - Abnormal AMMONIA 66 (*) 9 - 33 umol/L CBC WITH DIFF - Abnormal WBC 5.40 4.30 - 11.10 10*3/?L RBC 2.04 (*) 3.93 - 5.25 10*6/?L HGB 6.2 (*) 11.6 - 15.0 g/dL HCT 18.7 (*) 35.7 - 45.2 % MCV 91.7 80.6 - 95.5 fL MCH 30.4 25.9 - 32.8 pg MCHC 33.2 31.6 - 35.1 g/dL RDW-SD 58.5 (*) 39.0 - 49.9 fL RDW-CV 17.7 (*) 12.0 - 15.5 % PLT 113 (*) 166 - 358 10*3/?L MPV 10.5 9.5 - 12.9 fL NRBC/100 WBC 0.0 0.0 - 10.0 /100 WBCs NRBC x103<0.01 10*3/?L GRAN MAT (NEUT) % 65.8 % IMM GRAN % 0.40 % LYMPH % 20.9 % MONO % 8.3 % EOS % 3.7 % BASO % 0.9 % GRAN MAT x103(ANC) 3.55 1.88 - 7.09 10*3/uL IMM GRAN x103<0.03 0.00 - 0.06 10*3/uL LYMPH x1031.13 (*) 1.32 - 3.29 10*3/uL MONO x1030.45 0.33 - 0.92 10*3/uL EOS x1030.20 0.03 - 0.39 10*3/uL BASO x1030.05 0.01 - 0.07 10*3/uL URINALYSIS - Abnormal APPEARANCE Turbid (*) Clear COLOR Red (*) Colorless, Other PH 7.5 4.0 - 8.0 SP GRAVITY 1.025 <=1.030 GLU U QUAL 70 mg/dL (*) Normal, 30 mg/dL, 50 mg/dL BLOOD 3+ (*) Negative KETONES Trace Negative, Trace, 5 mg/dL PROTEIN 300 mg/dL (*) Negative, 10 mg/dL, 20 mg/dL UROBILIN Normal Normal BILIRUBIN Negative Negative NITRITE Negative Negative LEUK FRANCHESKA 25/uL Negative, 25/uL RBC/HPF >182 (*) 0 - 3 HPF WBC/HPF <1 0 - 5 HPF BACTERIA Negative Negative TRANS EPI 1 <=1 HPF TYPE AND SCREEN CBC WITHOUT DIFF PREPARE PACKED RBC EKG: If EKG completed, see Procedure Note. Orders and Treatments: Orders Placed This Encounter Procedures PROTHROMBIN TIME / INR BASIC METABOLIC PANEL (NA, K, CL, CO2, GLUCOSE, BUN, CREATININE, CA) HEPATIC FUNCTION PANEL (14059) (ALB,T.PRO,BILI T,BU/BC,ALT,AST,ALK PHOS) Ammonia, Plasma CBC WITH DIFF URINALYSIS Type and Screen - ONCE NURIA PROFILE / HEMOGRAM - 30 minutes after transfusion of each RBC Orders Placed This Encounter Medications NaCl 0.9% (NS) IV Line Priming and Flushing Fluid Only 250 mL First Provider Eval: ED Events Date/Time Event User Comments 02/02/24 2333 Medical Screening Begins JUSTYN GARRISON MD -- 02/02/24 233 First Provider Evaluation JUSTYN GARRISON MD -- AdmissionCare Guideline: Anemia - OBS, Observation Based on the indications selected for the patient, the bed status of Observation was determined to be MET The following indications were selected as present at the time of evaluation of the patient: - Observation Care Admission Criteria - Observation care is indicated for 1 or more of the following: - Active bleeding present or cannot be excluded (eg, need for serial hematocrit measurements) AdmissionCare documentation entered by: Justyn Garrison [facility] [employer], 28th edition, Copyright ? 2023 [facility] [employer] [place] All Rights Reserved. [id number]:00 ED COURSE ED Course as of 02/03/24 0122 Sun Feb 03, [address] Gilmore he will evaluate for admission for hematuria, continued bleeding, transfusion, urology consult in AM as not obstructed and still able to void, no hemodynamic instability. [LM] ED Course User Index [LM] Justyn Garrison MD Diagnosis/Impression as of 02/03/24 012 Hematuria, unspecified type Anemia, unspecified type Procedures: Procedures MDM: Medical Decision Making Upon my evaluation, this patient had a high probability of imminent or life-threatening deterioration due to: which required my direct attention, intervention, and personal management. I have personally provided 35 minutes of critical care time exclusive of time spent on separately billable procedures. Time includes review of laboratory data, radiology results, discussion with consultants, and monitoring for potential decompensation. Interventions were performed as documented above. Supporting hematologic system, assessing for other emergent sources of bleeding, ordering IV blood transfusion, discussion with consultants. Problems Addressed: Anemia, unspecified type: chronic illness or injury with exacerbation, progression, or side effects of treatment Details: Recurrent bleeding, she is not obstructed but she will need blood transfusion, urology consult Hematuria, unspecified type: chronic illness or injury with exacerbation, progression, or side effects of treatment that poses a threat to life or bodily functions Amount and/or Complexity of Data Reviewed External Data Reviewed: labs and notes. Details: Baseline hemoglobin most recent 7.4, her last [facility] hospitalization, Labs: ordered. Risk Prescription drug management. Flowsheet Documentation: Scoring Tools: No data recorded Disposition/Condition: ED Disposition ED Disposition Admit - Observation Condition Stable Comment -- Discharge Medications: Patient's Medications START taking these medications No medications on file CONTINUE taking these medications which have NOT CHANGED ATORVASTATIN 40 MG TABLET Take 1 tablet by mouth at bedtime. ESTRADIOL (ESTRACE) 0.01 % (0.1 MG/GRAM) VAGINAL CREAM Apply 1g vaginally at bedtime every night for 2 weeks and then apply 1g vaginally at bedtime 2 times per week FERROUS SULFATE (IRON, FERROUS SULFATE,) 325 MG (65 MG IRON) TABLET Take 1 tablet by mouth every other day. FOLIC ACID 1 MG TABLET Take 1 tablet by mouth in the morning. LACTULOSE 10 GRAM/15 ML SOLUTION Take 30 mL by mouth in the morning. LEVOTHYROXINE (SYNTHROID) 125 MCG TABLET TAKE 1 TABLET BY MOUTH EVERY MORNING THIAMINE MONONITRATE 100 MG TABLET Take 1 tablet by mouth in the morning and 1 tablet at noon and 1 tablet in the evening. START taking Modified Medications as Prescribed No medications on file STOP taking these medications No medications on file Follow-up: Electronically signed by: Justyn Garrison MD 02/03/24 012 [facility] - [id number] 23:07:00 AdmissionCare Guideline: Anemia - OBS, Observation Based on the indications selected for the patient, the bed status of Observation was determined to be MET The following indications were selected as present at the time of evaluation of the patient: - Observation Care Admission Criteria - Observation care is indicated for 1 or more of the following: - Active bleeding present or cannot be excluded (eg, need for serial hematocrit measurements) AdmissionCare documentation entered by: Justyn Garrison [facility], 28th edition, Copyright ? 2023 [facility] [facility] All Rights Reserved. [id number]:00 [facility] CenterQgmqxv2603-48-78 00:00:[address] [facility]2024-09-13 12:00:00 Images from the original note were not included. Patient has been identified by name and was provided with cup, antiseptic towelette, and clean catch instructions. 1 urine specimen(s) sent. Unpreserved Urine Culture Aptima tube Other urine 1 [facility] CenterVsboea7704-99-28 13:00:20 Problem: Bleeding, Risk of Goal: Absence of impaired coagulation signs and symptoms Outcome: Adequate for discharge Goal: Absence of active bleeding Outcome: Adequate for discharge Problem: Discharge Planning Goal: Adequate for discharge Outcome: Adequate for discharge Goal: Effective communication Outcome: Adequate for discharge Problem: Pain Goal: Control of pain at or below patient's documented comfort goal Outcome: Adequate for discharge Goal: Reduction in pain sensation Outcome: Adequate for discharge Problem: Falls, Risk of Goal: Absence of falls Outcome: Adequate for discharge Problem: Venous Thromboembolism, (actual or risk of) Goal: Absence of venous thromboembolism (Risk) Outcome: Adequate for discharge Problem: Infection Risk Goal: Absence of infection Outcome: Adequate for discharge Tiana Lay RNOhioHealth Nelsonville Health [id number] 23:54:05 Problem: Bleeding, Risk of Goal: Absence of impaired coagulation signs and symptoms Outcome: Progressing as expected Goal: Absence of active bleeding Outcome: Progressing as expected Problem: Discharge Planning Goal: Adequate for discharge Outcome: Progressing as expected Goal: Effective communication Outcome: Progressing as expected Problem: Pain Goal: Control of pain at or below patient's documented comfort goal Outcome: Progressing as expected Goal: Reduction in pain sensation Outcome: Progressing as expected Problem: Venous Thromboembolism, (actual or risk of) Goal: Absence of venous thromboembolism (Risk) Outcome: Progressing as expected Problem: Venous Thromboembolism, (actual or risk of) Goal: Absence of venous thromboembolism (Risk) Outcome: Progressing as expected Renae Angela [id number] 13:02:12 1155 Received PT via hospital bed from [employer]. [address] Landis at bedside. 1155 PT under ANES care, NVS, and VS no longer being documented by nursing in flow-sheet, ANES to be responsible for documentation of VS. Ankita Camarillo FirstHealthIaaakq1174-73-32 02:12:37 Problem: Bleeding, Risk of Goal: Absence of impaired coagulation signs and symptoms Outcome: Progressing as expected Goal: Absence of active bleeding Outcome: Progressing as expected Problem: Discharge Planning Goal: Adequate for discharge Outcome: Progressing as expected Goal: Effective communication Outcome: Progressing as expected Problem: Pain Goal: Control of pain at or below patient's documented comfort goal Outcome: Progressing as expected Goal: Reduction in pain sensation Outcome: Progressing as expected Problem: Venous Thromboembolism, (actual or risk of) Goal: Absence of venous thromboembolism (Risk) Outcome: Progressing as expected Problem: Falls, Risk of Goal: Absence of falls Outcome: Progressing as expected Problem: Infection Risk Goal: Absence of infection Outcome: Progressing as expected Atiya Jackson RNUTMB - Akeqkc2511-12-04 09:50:33 Problem: Bleeding, Risk of Goal: Absence of impaired coagulation signs and symptoms Outcome: Progressing as expected Goal: Absence of active bleeding Outcome: Progressing as expected Problem: Discharge Planning Goal: Adequate for discharge Outcome: Progressing as expected Goal: Effective communication Outcome: Progressing as expected Problem: Pain Goal: Control of pain at or below patient's documented comfort goal Outcome: Progressing as expected Goal: Reduction in pain sensation Outcome: Progressing as expected Problem: Venous Thromboembolism, (actual or risk of) Goal: Absence of venous thromboembolism (Risk) Outcome: Progressing as expected Problem: Falls, Risk of Goal: Absence of falls Outcome: Progressing as expected Problem: Infection Risk Goal: Absence of infection Outcome: Progressing as expected Angela Navarro RNUTMB [id number] 21:21:42 Problem: Bleeding, Risk of Goal: Absence of impaired coagulation signs and symptoms Outcome: Progressing as expected Goal: Absence of active bleeding Outcome: Progressing as expected Problem: Discharge Planning Goal: Adequate for discharge Outcome: Progressing as expected Goal: Effective communication Outcome: Progressing as expected Problem: Pain Goal: Control of pain at or below patient's documented comfort goal Outcome: Progressing as expected Goal: Reduction in pain sensation Outcome: Progressing as expected Problem: Venous Thromboembolism, (actual or risk of) Goal: Absence of venous thromboembolism (Risk) Outcome: Progressing as expected Problem: Falls, Risk of Goal: Absence of falls Outcome: Progressing as expected Problem: Infection Risk Goal: Absence of infection Outcome: Progressing as expected Bc Carrillo RNUTMB [facility] [id number] 18:18:59 Problem: Bleeding, Risk of Goal: Absence of impaired coagulation signs and symptoms Outcome: Progressing as expected Goal: Absence of active bleeding Outcome: Progressing as expected Problem: Discharge Planning Goal: Adequate for discharge Outcome: Progressing as expected Goal: Effective communication Outcome: Progressing as expected Problem: Pain Goal: Control of pain at or below patient's documented comfort goal Outcome: Progressing as expected Goal: Reduction in pain sensation Outcome: Progressing as expected Problem: Venous Thromboembolism, (actual or risk of) Goal: Absence of venous thromboembolism (Risk) Outcome: Progressing as expected Problem: Falls, Risk of Goal: Absence of falls Outcome: Progressing as expected Problem: Infection Risk Goal: Absence of infection Outcome: Progressing as expected [facility] CenterZmvwhd6869-40-52 03:14:23 Rowan Bonilla is a 63 year old female with a PMH of hypothyroidism, HTN, HLD, anemia, cervical cancer s/p total hysterectomy. She presented with N/V and hematuria x 3 weeks on 12/19. She was admitted and seen by urology on 12/20 and underwent cystoscopy and clot evacuation. Diffuse vascular dilation and bleeding was noted. CT abd/pelvis noted possible cirrhosis with portal hypertension with >90% thrombosis of the portal vein. EGD was performed 12/26 and was unremarkable except for portal gastropathy and recommended beta blockers and heparin. Hematuria returned on heparin, so TIPS and thrombectomy was ordered. On 12/30, IR performed TIPS procedure with embolization of portosystemic varices and splenorenal shunts. Patient is here s/p this procedure. [facility] CenterFgccnx4532-59-80 19:30:00 Patient: Rowan Bonilla Procedure Summary Date: 12/31/23 Room / Location: [facility] Interventional Radiology, [facility] Anesthesia Start: 1255 Anesthesia Stop: 1918 Procedure: IR TIPS Diagnosis: PVT (portal vein thrombosis) Portal vein thrombosis (PVT needing thrombectomy + TIPS under GA) Scheduled Providers: Responsible Provider: Rajesh Wang MD Anesthesia Type: General ASA Status: 3 Anesthesia Type: General There were no known notable events for this encounter. Anesthesia Post Evaluation Comments: After review of the medical record, all indicated post-anesthesia care was provided. [facility] AN-PAIN MEDICINE ANESTHESIOLOGISTJoseph Ville [id number] 18:15:59 Assumed care of pt from Emma HOLDEN Anesthesia at bedside and PT still under ANES care, NVS, and VS not being documented by nursing in flow-sheet, ANES to be responsible for documentation of VS. [facility] [id number] 12:10:39 Name/ MRN / Age / Gender: Rowan Bonilla, [id number] 63 year old female BMI: Estimated body mass index is 31.46 kg/m? as calculated from the following: Height as of this encounter: 1.575 m (5' 2"). Weight as of this encounter: 78 kg (172 lb). Allergies: Patient has no known allergies. Last Vitals: BP Readings from Last 1 Encounters: 12/31/23 117/50 Pulse Readings from Last 1 Encounters: 12/31/23 59 SpO2 Readings from Last 1 Encounters: 12/31/23 97% Date of Surgery: 12/27/2023 Surgeon: Hank Andrew MD Procedure: IR TIPS OR Location: [facility] IR LOCATION Anesthesia Preop Eval (physical exam) Copied forward and updated from: 12/27/23 Anesthesia Preop: Chart Review and Wxvw-ab-Nidw [facility] Communication: Mrs. Bonilla 63 yr F w/ PMH cervical cancer s/p total hysterectomy/chemo/XRT (early ), chronic cystitis, hypothyroidism, HTN who was admitted for hematuria and dizziness. Pt transfused 2 units and transferred to [facility] for urology eval. Urology w/ CBI and under went cystoscopy and clot evacuation. Cystostopy w/ no massess or lesions, but w/ diffuse vascular dilation of superficial vessels and multiple bleeding vessels identified and fulgurated. CT AP w/ cirrhotic liver disease and nearly completely occluded portal vein and its central branches. Clot determined to be acute w/ triple phase CT, and IR recommended anticoagulation. Pt underwent EGD, which showed no signs of active or prior bleeding, just small varices, so patient was started on heparin. However, she had hematuria after starting the heparin gtt, so a decision was made for her to undergo TIPS and thrombectomy while inpatient. NPO Status Verified Clear Liquids: > 2 Hours Solid Food/Non-Clear Liquids: > 8 Hours PONV Risk Factors: female and non-smoker Anesthesia History Anesthesia History Negative Previous Anesthetics/Airways Cardiovascular Comments: 11/21/2022 EKG HR 60 Normal sinus rhythm with sinus arrhythmia Normal ECG 02/06/2022 TTE o Left Ventricle: Left ventricle size is normal. Mild basal septal thickening. Normal wall motion. Normal systolic function with a visually estimated EF of 55 - 60%. Indeterminate diastolic function. o Tricuspid Valve: Insufficient regurgant jet to estimate RVSP. RA pressure is 0-5 mmHg. o Left Atrium: Left atrium is severely dilated. Atrial septal aneurysm present. METS: 5-6 (+) Hypertension (+) Dyslipidemia Pulmonary Negative Pulmonary ROS Pulmonary ROS Negative per Chart Review Neuro/Musculoskeletal (+) Obesity GI/Hepatic Comments: CC: hematemesis (patient denies h/o hematemesis) Reason for Consultation: cirrhosis, PVT Date of Service: 12/22/2023 History of Present Illness Rowan Bonilla is a 63 year old /White female with past medical history of cervical cancer status post chemoradiotherapy, alcohol abuse, imaging findings consistent with cirrhosis who presents with radiation cystitis. GI consulted for signs of cirrhosis and suspected portal venous thrombosis. 12/20/23: CT scan abdomen 1. Evidence of chronic liver disease, possibly cirrhosis with portal hypertension, nearly completely occluded portal vein and its central branches within the liver parenchyma, small amount of free fluid in the pelvis. 2. Small hiatal hernia, small bilateral inguinal hernias. 3. S/P hysterectomy. 4. No kidney stones or kidney lesions. No gross pathology in the unopacified urinary bladder. 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 Hold on DOS. Phentermine: Alert [facility] anesthesiologist SGLT2 Inhibitors: "gliflozins" to be held for 3 days prior to elective surgeries GLP1 Agonosit: stop 7 days prior to surgery MAC Cases: Continue taking ADY inhibitors and ARBs ASA Classification ASA: 3 ASA Comments: Patient Active Problem List: Urinary tract infection, site not specified H/O: hysterectomy History of cervical cancer Obesity Hypothyroid Tobacco use disorder Hematochezia Radiation proctitis Hematuria of unknown etiology Personal history of colonic polyps Abdominal pain, unspecified abdominal location Nausea and vomiting, unspecified vomiting type Gross hematuria PVT (portal vein thrombosis) Labs: Chemistry 12/27/2023 CBC 12/29/2023 138 109 (H) 9 84 3.69 (L) 7.7 (L) 67 (L) 3.8 22 (L) 0.62 24.5 (L) eGFR: 99.0 Date: 12/27/2023 ANC: 1.63 (L) Date: 12/28/2023 LFTs 12/21/2023 Coags AST: 47 (H) AP: 92 Prot: 5.0 (L) Ca: 8.1 (L) PT: 13.3 (H) Date: 12/21/2023 ALT: 16 T Rl: 0.9 Alb: 2.4 (L) PTT: 138 (HH) Date: 12/28/2023 PO4: - Date: - INR: 1.1 Date: 12/21/2023 Cardiac Endocrine & other pBNP: - Date: - A1C: - Date: - Trop I: - Date: - POCT A1C: - Date: - CK: - Date: - TSH: 9.51 (H) Date: 12/20/2023 CKMB: - Date: - FT4: 1.59 Date: 12/20/2023 LDL: 54 Date: 12/22/2023 Lact: - Date: - Procal: - Date: - Respiratory -|-|-|-|- D-dimer: - ABG Date: - Date: - Miscellaneous Type and Screen: O POSITIVE Antibody: Negative Date: 12/31/2023 POCT : - Date: - Current Medications: Outpatient Medications Marked as Taking for the 12/20/23 encounter (Hospital Encounter) Medication Sig Dispense Refill ferrous sulfate (IRON, FERROUS SULFATE,) 325 mg (65 mg iron) tablet Take 1 tablet by mouth every other day. 30 tablet 0 levothyroxine (SYNTHROID) 125 mcg tablet TAKE 1 TABLET BY MOUTH EVERY MORNING (Patient taking differently: 100 mcg.) 30 tablet 1 Previous Surgeries: Past Surgical History: Procedure Laterality Date APPENDECTOMY 1977 COLONOSCOPY N/A 04/21/2022 Surgeon: Radha Pena MD; Location: [facility] OR LOCATION COLONOSCOPY N/A 01/23/2023 Surgeon: Leroy Martel MD; Location: [facility] OR LOCATION CYSTOSCOPY WITH EVACUATION CLOTS (SHX) N/A 12/22/2023 Surgeon: Bertin Adame MD; [facility] LOC[facility] DILATION AND CURETTAGE (SHX) ESOPHAGOGASTRODUODENOSCOPY Upper 12/27/2023 Surgeon: Hank Andrew MD; Location: ENDOSCOPY ([facility]) OR LOCATION HYSTERECTOMY Anesthesia Physical Exam General no apparent distress and alert and oriented x 3 Neuro/Psych nonfocal Dental dental caries Abdominal (+) obesity Airway Mallampati score:II TM distance:> 5 cm Neck ROM: full Mouth opening:normal Extremity Pulmonary bilateral clear to auscultation Other Cardiovascular Rhythm:regular Rate: normal Anesthesia Plan ASA Status: 3 Plan discussed during pre-op evaluation: General Anesthetic plan on DOS: General Plan to include: IV induction, ETT and arterial line Anesthesia plan discussed with: patient or telephone claims representative Post-Operative Analgesia: routine analgesia & antiemetics Recovery Plan: PACU Additional comments: The patient was consented for the risks of general anesthesia (GA), including dysphagia, dysphonia, PONV, damage to teeth/lips/vocal cords/surrounding structures, permanent organ damage, memory loss or brain damage. The patient understands the risks, benefits, and agrees to proceed. All questions answered. She does accept blood transfusion if deemed necessary. T AN-ANESTHESIOLOGY ANESTHESIOLOGISTOhioHealth Nelsonville Health CenterBewqtm0513-49-64 07:32:39 Problem: Bleeding, Risk of Goal: Absence of impaired coagulation signs and symptoms Outcome: Progressing as expected Goal: Absence of active bleeding Outcome: Progressing as expected Problem: Discharge Planning Goal: Adequate for discharge Outcome: Progressing as expected Goal: Effective communication Outcome: Progressing as expected Problem: Pain Goal: Control of pain at or below patient's documented comfort goal Outcome: Progressing as expected Goal: Reduction in pain sensation Outcome: Progressing as expected Problem: Venous Thromboembolism, (actual or risk of) Goal: Absence of venous thromboembolism (Risk) Outcome: Progressing as expected Problem: Falls, Risk of Goal: Absence of falls Outcome: Progressing as expected Problem: Infection Risk Goal: Absence of infection Outcome: Progressing as expected Fide Helms [id number] 20:18:14 Problem: Bleeding, Risk of Goal: Absence of impaired coagulation signs and symptoms Outcome: Progressing as expected Goal: Absence of active bleeding Outcome: Progressing as expected Problem: Discharge Planning Goal: Adequate for discharge Outcome: Progressing as expected Goal: Effective communication Outcome: Progressing as expected Problem: Pain Goal: Control of pain at or below patient's documented comfort goal Outcome: Progressing as expected Goal: Reduction in pain sensation Outcome: Progressing as expected Problem: Venous Thromboembolism, (actual or risk of) Goal: Absence of venous thromboembolism (Risk) Outcome: Progressing as expected Problem: Falls, Risk of Goal: Absence of falls Outcome: Progressing as expected Problem: Infection Risk Goal: Absence of infection Outcome: Progressing as expected Jackelyn Nicholson [facility] - [id number] 18:22:57 Problem: Bleeding, Risk of Goal: Absence of impaired coagulation signs and symptoms Outcome: Progressing as expected Goal: Absence of active bleeding Outcome: Progressing as expected Problem: Discharge Planning Goal: Adequate for discharge Outcome: Progressing as expected Goal: Effective communication Outcome: Progressing as expected Problem: Pain Goal: Control of pain at or below patient's documented comfort goal Outcome: Progressing as expected Goal: Reduction in pain sensation Outcome: Progressing as expected Problem: Venous Thromboembolism, (actual or risk of) Goal: Absence of venous thromboembolism (Risk) Outcome: Progressing as expected Problem: Venous Thromboembolism, (actual or risk of) Goal: Absence of venous thromboembolism (Risk) Outcome: Progressing as expected Problem: Falls, Risk of Goal: Absence of falls Outcome: Progressing as expected Problem: Falls, Risk of Goal: Absence of falls Outcome: Progressing as expected Problem: Infection Risk Goal: Absence of infection Outcome: Progressing as expected Yuliya Rosen [id number] 20:24:28 Problem: Bleeding, Risk of Goal: Absence of impaired coagulation signs and symptoms Outcome: Progressing as expected Goal: Absence of active bleeding Outcome: Progressing as expected Problem: Discharge Planning Goal: Adequate for discharge Outcome: Progressing as expected Goal: Effective communication Outcome: Progressing as expected Problem: Pain Goal: Control of pain at or below patient's documented comfort goal Outcome: Progressing as expected Goal: Reduction in pain sensation Outcome: Progressing as expected Problem: Venous Thromboembolism, (actual or risk of) Goal: Absence of venous thromboembolism (Risk) Outcome: Progressing as expected Problem: Falls, Risk of Goal: Absence of falls Outcome: Progressing as expected Problem: Infection Risk Goal: Absence of infection Outcome: Progressing as expected [id number] 18:31:34 Problem: Bleeding, Risk of Goal: Absence of impaired coagulation signs and symptoms Outcome: Progressing as expected Goal: Absence of active bleeding Outcome: Progressing as expected Problem: Discharge Planning Goal: Adequate for discharge Outcome: Progressing as expected Goal: Effective communication Outcome: Progressing as expected Problem: Pain Goal: Control of pain at or below patient's documented comfort goal Outcome: Progressing as expected Goal: Reduction in pain sensation Outcome: Progressing as expected Problem: Venous Thromboembolism, (actual or risk of) Goal: Absence of venous thromboembolism (Risk) Outcome: Progressing as expected Problem: Venous Thromboembolism, (actual or risk of) Goal: Absence of venous thromboembolism (Risk) Outcome: Progressing as expected Problem: Falls, Risk of Goal: Absence of falls Outcome: Progressing as expected [facility]2024-08-16 20:27:10 Problem: Bleeding, Risk of Goal: Absence of impaired coagulation signs and symptoms Outcome: Progressing as expected Goal: Absence of active bleeding Outcome: Progressing as expected Problem: Discharge Planning Goal: Adequate for discharge Outcome: Progressing as expected Goal: Effective communication Outcome: Progressing as expected Problem: Pain Goal: Control of pain at or below patient's documented comfort goal Outcome: Progressing as expected Goal: Reduction in pain sensation Outcome: Progressing as expected Problem: Venous Thromboembolism, (actual or risk of) Goal: Absence of venous thromboembolism (Risk) Outcome: Progressing as expected Problem: Falls, Risk of Goal: Absence of falls Outcome: Progressing as expected Problem: Infection Risk Goal: Absence of infection Outcome: Progressing as expected [facility]2024-08-16 18:16:06 Problem: Bleeding, Risk of Goal: Absence of impaired coagulation signs and symptoms Outcome: Progressing as expected Problem: Discharge Planning Goal: Adequate for discharge Outcome: Progressing as expected Problem: Pain Goal: Control of pain at or below patient's documented comfort goal Outcome: Progressing as expected [facility]2024-08-15 20:58:23 Problem: Bleeding, Risk of Goal: Absence of impaired coagulation signs and symptoms Outcome: Progressing as expected Goal: Absence of active bleeding Outcome: Progressing as expected Problem: Discharge Planning Goal: Adequate for discharge Outcome: Progressing as expected Goal: Effective communication Outcome: Progressing as expected Problem: Pain Goal: Control of pain at or below patient's documented comfort goal Outcome: Progressing as expected Goal: Reduction in pain sensation Outcome: Progressing as expected Problem: Venous Thromboembolism, (actual or risk of) Goal: Absence of venous thromboembolism (Risk) Outcome: Progressing as expected Problem: Falls, Risk of Goal: Absence of falls Outcome: Progressing as expected Problem: Infection Risk Goal: Absence of infection Outcome: Progressing as expected [facility]2024-08-15 07:46:12 Problem: Bleeding, Risk of Goal: Absence of impaired coagulation signs and symptoms Outcome: Progressing as expected Goal: Absence of active bleeding Outcome: Progressing as expected Problem: Discharge Planning Goal: Adequate for discharge Outcome: Progressing as expected Goal: Effective communication Outcome: Progressing as expected Problem: Pain Goal: Control of pain at or below patient's documented comfort goal Outcome: Progressing as expected Goal: Reduction in pain sensation Outcome: Progressing as expected Problem: Venous Thromboembolism, (actual or risk of) Goal: Absence of venous thromboembolism (Risk) Outcome: Progressing as expected Problem: Falls, Risk of Goal: Absence of falls Outcome: Progressing as expected Problem: Infection Risk Goal: Absence of infection Outcome: Progressing as expected [facility] Melecio Dash [id number] 19:30:00 Problem: Bleeding, Risk of Goal: Absence of impaired coagulation signs and symptoms Outcome: Progressing as expected Goal: Absence of active bleeding Outcome: Progressing as expected Problem: Discharge Planning Goal: Adequate for discharge Outcome: Progressing as expected Goal: Effective communication Outcome: Progressing as expected Problem: Pain Goal: Control of pain at or below patient's documented comfort goal Outcome: Progressing as expected Goal: Reduction in pain sensation Outcome: Progressing as expected Problem: Venous Thromboembolism, (actual or risk of) Goal: Absence of venous thromboembolism (Risk) Outcome: Progressing as expected Problem: Falls, Risk of Goal: Absence of falls Outcome: Progressing as expected Problem: Infection Risk Goal: Absence of infection Outcome: Progressing as expected [facility]2024-08-14 14:59:44 RN notified that pt is being postpone until tomorrow.. [facility] Pina Gu [id number] 10:52:07 Report from Yuliya HOLDEN Pt AO x4, RA, Amb, no isolation has been NPO. T&S collected and send to lab. RN to start blood transfusion as ordered by primary team [facility] [id number] 08:24:01 Name/ MRN / Age / Gender: Rowan Bonilla, [id number] 63 year old female BMI: Estimated body mass index is 31.46 kg/m? as calculated from the following: Height as of this encounter: 1.575 m (5' 2"). Weight as of this encounter: 78 kg (172 lb). Allergies: Patient has no known allergies. Last Vitals: BP Readings from Last 1 Encounters: 12/26/23 134/49 Pulse Readings from Last 1 Encounters: 12/26/23 67 SpO2 Readings from Last 1 Encounters: 12/26/23 95% Date of Surgery: 12/26/2023 Surgeon: Hank Andrew MD Procedure: ESOPHAGOGASTRODUODENOSCOPY (Upper) OR Location: ENDOSCOPY ([facility]) OR LOCATION Anesthesia Preop Screen (no physical exam) Anesthesia Preop: Chart Review [facility] Communication: Urology consult note 12/21/23: Rowan Bonilla is a 63 year old female with history of hypothyroidism, hypertension, cervical cancer with a total hysterectomy + chemo and XRT (early ), who is admitted for hematuria onset three weeks. She reports remote hx of hematuria which has been generally intermittent and self resolving. In the last three weeks she has had worsening bleeding, however and she sought evaluation in [place] ED after she developed dizziness and vomitting. In [place] ED she was found to have symptomatic anemia (Hb 6.3) and was admitted for further workup. She had profound iron deficiency CTAP results discussed separately, however no obvious bladder abnormality noted. She was transfused two units PRBC and transferred for higher level care. On evaluation today she continues to have hematuria and is passing clot. Denies abdominal pain or nausea at this time. Denies hx of UTI, STD, urologic surgery. She had cystoscopy 03/[address] Diez which showed diffuse inflammation of bladder without discrete lesion, biopsy confirmed chronic cystitis. PONV Risk Factors: female Anesthesia History Previous Anesthetics/Airways Cardiovascular Comments: 11/21/2022 EKG HR 60 Normal sinus rhythm with sinus arrhythmia Normal ECG 02/06/2022 TTE o Left Ventricle: Left ventricle size is normal. Mild basal septal thickening. Normal wall motion. Normal systolic function with a visually estimated EF of 55 - 60%. Indeterminate diastolic function. o Tricuspid Valve: Insufficient regurgant jet to estimate RVSP. RA pressure is 0-5 mmHg. o Left Atrium: Left atrium is severely dilated. Atrial septal aneurysm present. (+) Hypertension (+) Dyslipidemia Pulmonary Pulmonary ROS Negative per Chart Review Neuro/Musculoskeletal Neuro/Musculoskeletal ROS Negative per Chart Review GI/Hepatic Comments: CC: hematemesis Reason for Consultation: cirrhosis, PVT Date of Service: 12/22/2023 History of Present Illness Rowan Bonilla is a 63 year old /White female with past medical history of cervical cancer status post chemoradiotherapy, alcohol abuse, imaging findings consistent with cirrhosis who presents with radiation cystitis. GI consulted for signs of cirrhosis and suspected portal venous thrombosis. 12/20/23: CT scan abdomen 1. Evidence of chronic liver disease, possibly cirrhosis with portal hypertension, nearly completely occluded portal vein and its central branches within the liver parenchyma, small amount of free fluid in the pelvis. 2. Small hiatal hernia, small bilateral inguinal hernias. 3. S/P hysterectomy. 4. No kidney stones or kidney lesions. No gross pathology in the unopacified urinary bladder. Heavy alcohol use (1L of liquor/day) (+) Liver disease and portal hypertension Hematology Comments: 12/26/23 05:09 WBC x103: 3.62 (L) RBC x106: 2.39 (L) HGB: 6.8 (L) HCT: 21.6 (L) MCV: 90.4 MCH: 28.5 MCHC: 31.5 (L) RDW-SD: 56.7 (H) RDW-CV: 18.9 (H) PLT x103: 70 (L) (L): Data is abnormally low (H): Data is abnormally high (+) Anemia (hgb 7.9 (improved from 6.1 after 2 pRBC units)) Renal Comments: 12/26/23 05:09 NA: 138 K: 3.7 CL: 110 (H) CO2 TOTAL: 23 AGAP: 5 BUN: 10 GLUCOSE: 91 CREATININE: 0.59 (H): Data is abnormally high Skin (+) Current IV access (US guided - 20g R AC) and 20g Endo/Other (+) 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 Hold on DOS. Phentermine: Alert [facility] anesthesiologist SGLT2 Inhibitors: "gliflozins" to be held for 3 days prior to elective surgeries GLP1 Agonosit: stop 7 days prior to surgery MAC Cases: Continue taking ADY inhibitors and ARBs ASA Classification ASA: 3 Labs: Chemistry 12/26/2023 CBC 12/26/2023 138 110 (H) 10 91 3.62 (L) 6.8 (L) 70 (L) 3.7 23 0.59 21.6 (L) eGFR: 100.2 Date: 12/26/2023 ANC: 3.61 Date: 12/23/2023 LFTs 12/21/2023 Coags AST: 47 (H) AP: 92 Prot: 5.0 (L) Ca: 8.0 (L) PT: 13.3 (H) Date: 12/21/2023 ALT: 16 T Rl: 0.9 Alb: 2.4 (L) PTT: 28 Date: 12/21/2023 PO4: - Date: - INR: 1.1 Date: 12/21/2023 Cardiac Endocrine & other pBNP: - Date: - A1C: - Date: - Trop I: - Date: - POCT A1C: - Date: - CK: - Date: - TSH: 9.51 (H) Date: 12/20/2023 CKMB: - Date: - FT4: 1.59 Date: 12/20/2023 LDL: 54 Date: 12/22/2023 Lact: - Date: - Procal: - Date: - Respiratory -|-|-|-|- D-dimer: - ABG Date: - Date: - Miscellaneous Type and Screen: O POSITIVE Antibody: Negative Date: 12/22/2023 POCT : - Date: - Current Medications: Outpatient Medications Marked as Taking for the 12/20/23 encounter (Hospital Encounter) Medication Sig Dispense Refill ferrous sulfate (IRON, FERROUS SULFATE,) 325 mg (65 mg iron) tablet Take 1 tablet by mouth every other day. 30 tablet 0 levothyroxine (SYNTHROID) 125 mcg tablet TAKE 1 TABLET BY MOUTH EVERY MORNING (Patient taking differently: 100 mcg.) 30 tablet 1 Previous Surgeries: Past Surgical History: Procedure Laterality Date APPENDECTOMY 1977 COLONOSCOPY N/A 04/21/2022 Surgeon: Radha Pena MD; Location: [facility] OR LOCATION COLONOSCOPY N/A 01/23/2023 Surgeon: Leroy Martel MD; Location: [facility] OR LOCATION CYSTOSCOPY WITH EVACUATION CLOTS (SHX) N/A 12/22/2023 Surgeon: Bertin Adame MD; Location: [facility] OR LOCATION DILATION AND CURETTAGE (SHX) HYSTERECTOMY Physical Exam Anesthesia Plan ASA Status: 3 Anesthetic plan on DOS: TIVA Plan to include: IV induction and nasal cannula Post-Operative Analgesia: routine analgesia & antiemetics Recovery Plan: PACU Additional comments: AN-ANESTHESIOLOGY ANESTHESIOLOGISTOhioHealth Nelsonville Health [id number] 21:54:28 Problem: Bleeding, Risk of Goal: Absence of impaired coagulation signs and symptoms Outcome: Progressing as expected Goal: Absence of active bleeding Outcome: Progressing as expected Problem: Discharge Planning Goal: Adequate for discharge Outcome: Progressing as expected Goal: Effective communication Outcome: Progressing as expected Problem: Pain Goal: Control of pain at or below patient's documented comfort goal Outcome: Progressing as expected Goal: Reduction in pain sensation Outcome: Progressing as expected Problem: Venous Thromboembolism, (actual or risk of) Goal: Absence of venous thromboembolism (Risk) Outcome: Progressing as expected Problem: Falls, Risk of Goal: Absence of falls Outcome: Progressing as expected Problem: Infection Risk Goal: Absence of infection Outcome: Progressing as expected Noelle Lucero [id number] 11:09:00 Problem: Bleeding, Risk of Goal: Absence of impaired coagulation signs and symptoms Outcome: Progressing as expected Goal: Absence of active bleeding Outcome: Progressing as expected Problem: Discharge Planning Goal: Adequate for discharge Outcome: Progressing as expected Goal: Effective communication Outcome: Progressing as expected Problem: Pain Goal: Control of pain at or below patient's documented comfort goal Outcome: Progressing as expected Goal: Reduction in pain sensation Outcome: Progressing as expected Problem: Venous Thromboembolism, (actual or risk of) Goal: Absence of venous thromboembolism (Risk) Outcome: Progressing as expected Problem: Falls, Risk of Goal: Absence of falls Outcome: Progressing as expected Problem: Infection Risk Goal: Absence of infection Outcome: Progressing as expected [facility] [id number] 19:37:39 Problem: Bleeding, Risk of Goal: Absence of impaired coagulation signs and symptoms Outcome: Progressing as expected Goal: Absence of active bleeding Outcome: Progressing as expected Problem: Discharge Planning Goal: Adequate for discharge Outcome: Progressing as expected Goal: Effective communication Outcome: Progressing as expected Problem: Pain Goal: Control of pain at or below patient's documented comfort goal Outcome: Progressing as expected Goal: Reduction in pain sensation Outcome: Progressing as expected Problem: Venous Thromboembolism, (actual or risk of) Goal: Absence of venous thromboembolism (Risk) Outcome: Progressing as expected Problem: Falls, Risk of Goal: Absence of falls Outcome: Progressing as expected Problem: Infection Risk Goal: Absence of infection Outcome: Progressing as expected Lasha Cooley RNOhioHealth Nelsonville Health [id number] 07:27:49 Problem: Bleeding, Risk of Goal: Absence of impaired coagulation signs and symptoms Outcome: Progressing as expected Goal: Absence of active bleeding Outcome: Progressing as expected Problem: Discharge Planning Goal: Adequate for discharge Outcome: Progressing as expected Goal: Effective communication Outcome: Progressing as expected Problem: Pain Goal: Control of pain at or below patient's documented comfort goal Outcome: Progressing as expected Goal: Reduction in pain sensation Outcome: Progressing as expected Problem: Venous Thromboembolism, (actual or risk of) Goal: Absence of venous thromboembolism (Risk) Outcome: Progressing as expected Problem: Falls, Risk of Goal: Absence of falls Outcome: Progressing as expected Problem: Infection Risk Goal: Absence of infection Outcome: Progressing as expected Ivy Reina [id number] 19:32:37 Problem: Bleeding, Risk of Goal: Absence of impaired coagulation signs and symptoms Outcome: Progressing as expected Goal: Absence of active bleeding Outcome: Progressing as expected Problem: Discharge Planning Goal: Adequate for discharge Outcome: Progressing as expected Goal: Effective communication Outcome: Progressing as expected Problem: Pain Goal: Control of pain at or below patient's documented comfort goal Outcome: Progressing as expected Goal: Reduction in pain sensation Outcome: Progressing as expected Problem: Venous Thromboembolism, (actual or risk of) Goal: Absence of venous thromboembolism (Risk) Outcome: Progressing as expected Problem: Falls, Risk of Goal: Absence of falls Outcome: Progressing as expected Problem: Infection Risk Goal: Absence of infection Outcome: Progressing as expected [facility]2024-08-11 07:12:01 Problem: Bleeding, Risk of Goal: Absence of impaired coagulation signs and symptoms Outcome: Progressing as expected Goal: Absence of active bleeding Outcome: Progressing as expected Problem: Discharge Planning Goal: Adequate for discharge Outcome: Progressing as expected Goal: Effective communication Outcome: Progressing as expected Problem: Pain Goal: Control of pain at or below patient's documented comfort goal Outcome: Progressing as expected Goal: Reduction in pain sensation Outcome: Progressing as expected Problem: Venous Thromboembolism, (actual or risk of) Goal: Absence of venous thromboembolism (Risk) Outcome: Progressing as expected Problem: Falls, Risk of Goal: Absence of falls Outcome: Progressing as expected Problem: Infection Risk Goal: Absence of infection Outcome: Progressing as expected [facility]2024-08-10 19:40:45 Problem: Bleeding, Risk of Goal: Absence of impaired coagulation signs and symptoms Outcome: Progressing as expected Goal: Absence of active bleeding Outcome: Progressing as expected Problem: Discharge Planning Goal: Adequate for discharge Outcome: Progressing as expected Goal: Effective communication Outcome: Progressing as expected Problem: Pain Goal: Control of pain at or below patient's documented comfort goal Outcome: Progressing as expected Goal: Reduction in pain sensation Outcome: Progressing as expected Problem: Venous Thromboembolism, (actual or risk of) Goal: Absence of venous thromboembolism (Risk) Outcome: Progressing as expected Problem: Falls, Risk of Goal: Absence of falls Outcome: Progressing as expected Problem: Infection Risk Goal: Absence of infection Outcome: Progressing as expected [facility]2024-08-10 07:41:27 Problem: Bleeding, Risk of Goal: Absence of impaired coagulation signs and symptoms Outcome: Progressing as expected Goal: Absence of active bleeding Outcome: Progressing as expected Problem: Discharge Planning Goal: Adequate for discharge Outcome: Progressing as expected Goal: Effective communication Outcome: Progressing as expected Problem: Pain Goal: Control of pain at or below patient's documented comfort goal Outcome: Progressing as expected Goal: Reduction in pain sensation Outcome: Progressing as expected Problem: Venous Thromboembolism, (actual or risk of) Goal: Absence of venous thromboembolism (Risk) Outcome: Progressing as expected Problem: Falls, Risk of Goal: Absence of falls Outcome: Progressing as expected Problem: Infection Risk Goal: Absence of infection Outcome: Progressing as expected [place] [id number] 21:40:00 Kimi Teague RN accompanied Dr Wick at bedside for indwelling catheter insertion and bladder irrigation. Verbal consent taken and procedure explained by . Patient acknowledged understanding, tolerated procedure well. [facility] Kimi Teague [id number] 19:53:00 Nurse, Dinora Youngblood RN accompanied Dr. Nipper at patient bedside for invasive vaginally examine/assessment. Verbal consent was obtain from patient and doctor explained step by step of the examine prior to being preformed. Dinora Youngblood [id number] 19:18:27 Problem: Bleeding, Risk of Goal: Absence of impaired coagulation signs and symptoms Outcome: Progressing as expected Goal: Absence of active bleeding Outcome: Progressing as expected Problem: Discharge Planning Goal: Adequate for discharge Outcome: Progressing as expected Goal: Effective communication Outcome: Progressing as expected Problem: Pain Goal: Control of pain at or below patient's documented comfort goal Outcome: Progressing as expected Goal: Reduction in pain sensation Outcome: Progressing as expected Problem: Venous Thromboembolism, (actual or risk of) Goal: Absence of venous thromboembolism (Risk) Outcome: Progressing as expected Problem: Falls, Risk of Goal: Absence of falls Outcome: Progressing as expected [facility] [id number] 18:49:32 Problem: Bleeding, Risk of Goal: Absence of impaired coagulation signs and symptoms Outcome: Progressing as expected Goal: Absence of active bleeding Outcome: Progressing as expected Problem: Discharge Planning Goal: Adequate for discharge Outcome: Progressing as expected Goal: Effective communication Outcome: Progressing as expected Problem: Pain Goal: Control of pain at or below patient's documented comfort goal Outcome: Progressing as expected Goal: Reduction in pain sensation Outcome: Progressing as expected Problem: Venous Thromboembolism, (actual or risk of) Goal: Absence of venous thromboembolism (Risk) Outcome: Progressing as expected Melody Rayo [id number] 17:12:13 Problem: Bleeding, Risk of Goal: Absence of impaired coagulation signs and symptoms Outcome: Progressing as expected Goal: Absence of active bleeding Outcome: Progressing as expected Problem: Discharge Planning Goal: Adequate for discharge Outcome: Progressing as expected Goal: Effective communication Outcome: Progressing as expected Problem: Pain Goal: Control of pain at or below patient's documented comfort goal Outcome: Progressing as expected Goal: Reduction in pain sensation Outcome: Progressing as expected Problem: Venous Thromboembolism, (actual or risk of) Goal: Absence of venous thromboembolism (Risk) Outcome: Progressing as expected [facility] [id number] 15:12:11 Report called to NAVIN Enrique at [address] Jovita Aranda [facility]fpglx3235-30-34 05:01:56 Problem: Bleeding, Risk of Goal: Absence of impaired coagulation signs and symptoms Outcome: Progressing as expected Goal: Absence of active bleeding Outcome: Progressing as expected Problem: Discharge Planning Goal: Adequate for discharge Outcome: Progressing as expected Goal: Effective communication Outcome: Progressing as expected Problem: Pain Goal: Control of pain at or below patient's documented comfort goal Outcome: Progressing as expected Goal: Reduction in pain sensation Outcome: Progressing as expected Problem: Venous Thromboembolism, (actual or risk of) Goal: Absence of venous thromboembolism (Risk) Outcome: Progressing as expected Linda Vidal [facility]zdfbm3678-75-34 16:18:57 Problem: Bleeding, Risk of Goal: Absence of impaired coagulation signs and symptoms Outcome: Progressing as expected Goal: Absence of active bleeding Outcome: Progressing as expected Problem: Discharge Planning Goal: Adequate for discharge Outcome: Progressing as expected Goal: Effective communication Outcome: Progressing as expected Problem: Pain Goal: Control of pain at or below patient's documented comfort goal Outcome: Progressing as expected Goal: Reduction in pain sensation Outcome: Progressing as expected Problem: Venous Thromboembolism, (actual or risk of) Goal: Absence of venous thromboembolism (Risk) Outcome: Progressing as expected [facility] CenterFpzami4440-18-57 12:34:00 Nurse Report Report given to Med surg nurse. Chief complaint, assessment findings, infusion verify and orders reviewed. KEENAN ANDREWS RN Keenan Andrews [id number] 08:42:15 Summary: Triage CC: patient states she has had blood in her urine for 3 weeks, patient has a doctor appointment tomorrow about the blood in the urine. Patient states she has vomited twice today. Patient states she feels weak, patient denies any other urine symptoms PMHx: cervical cx, HTN, high cholesterol and thyroid PSH:appy cervical removed MEDS:see list LMP: NA Tetanus: UTD Awake, alert, oriented, resp reg unlabored, skin warm, color appropriate for race, moves all ext without difficulty, amb with out assistance Appears in no distress Ava Ross [facility]Erhpvf4224-45-31 08:38:00 AdmissionCare Guideline: Anemia (Iron Deficiency or Unspecified) - OBS, Observation Based on the indications selected for the patient, the bed status of Observation was determined to be MET The following indications were selected as present at the time of evaluation of the patient: - Observation Care Admission Criteria - Observation care is indicated for 1 or more of the following: - Active bleeding present or cannot be excluded (eg, need for serial hematocrit measurements) AdmissionCare documentation entered by: Desirae Easton [facility], 28th edition, Copyright ? 2023 [facility] [facility] All Rights Reserved. [id number]:00 PA-PHYSICIAN FIRE ENGINEER MIDLEVEL PROVIDEROhioHealth Nelsonville Health CenterZulvgc1927-67-60 08:30:22 Addendum created 01/24/23829 by George Crowe CRNA Intraprocedure Meds edited NACR-NURSE SECOND MATE,CERTIFIED REGISTERED NURSE ANESTHETISTOhioHealth Nelsonville Health Center 2023-01-23 10:24:42 Patient: Rowan Bonilla Procedure Summary Date: 01/23/23 Room / Location: GI PROCEDURE / [facility] Anesthesia Start: 929 Anesthesia Stop: 1010 Procedure: COLONOSCOPY (Rectum) Diagnosis: Personal history of colonic polyps (Personal history of colonic polyps [Z86.010]) Surgeons: Leroy Martel MD Responsible Provider: Glen Carroll MD Anesthesia Type: General, TIVA ASA Status: 3 Anesthesia Type: General, TIVA Last vitals BP 134/64 (01/23/23 1018) Temp 36.1 ?C (97 ?F) (01/23/23 1018) Pulse 70 (01/23/23 1018) Resp 16 SpO2 97 % (01/23/23 1018) There were no known notable events for this encounter. Anesthesia Post Evaluation Patient location during evaluation: PACU Patient participation: complete - patient participated Level of consciousness: awake and alert Pain score: 0 Pain management: adequate Airway patency: patent Cardiovascular status: acceptable Respiratory status: acceptable Hydration status: acceptable AN-ANESTHESIOLOGY ANESTHESIOLOGISTOhioHealth Nelsonville Health CenterGihdsb6715-31-69 08:13:44 Name/ MRN / Age / Gender: Rowan Bonilla, [id number] 62 year old female BMI: Estimated body mass index is 31 kg/m? as calculated from the following: Height as of this encounter: 1.6 m (5' 3"). Weight as of this encounter: 79.4 kg (175 lb). Allergies: Patient has no known allergies. Last Vitals: BP Readings from Last 1 Encounters: 01/23/23 (!) 161/67 Pulse Readings from Last 1 Encounters: 01/23/23 65 SpO2 Readings from Last 1 Encounters: 01/23/23 98% Date of Surgery: 01/23/2023 Surgeon: Leroy Martel MD Procedure: COLONOSCOPY (Rectum) OR Location: [facility] Anesthesia Preop Screen (no physical exam) Copied forward and updated from: 04/21/2022 Anesthesia Preop: Chart Review and [id number] PONV Risk Factors: female and non-smoker PONV Risk Score: 2 Anesthesia History Anesthesia History Negative per Chart Review Previous Anesthetics/Airways Additional Comments: 04/21/2022 TIVA Cardiovascular Comments: 11/21/2022 EKG HR 60 Normal sinus rhythm with sinus arrhythmia Normal ECG 02/06/2022 TTE o Left Ventricle: Left ventricle size is normal. Mild basal septal thickening. Normal wall motion. Normal systolic function with a visually estimated EF of 55 - 60%. Indeterminate diastolic function. o Tricuspid Valve: Insufficient regurgant jet to estimate RVSP. RA pressure is 0-5 mmHg. o Left Atrium: Left atrium is severely dilated. Atrial septal aneurysm present. (+) Hypertension (+) Dyslipidemia (+) Echocardiogram results EF: 55% Pulmonary Pulmonary ROS Negative per Chart Review (+) Tobacco use ( former) Neuro/Musculoskeletal Negative Neuro/Musculosketal ROS (+) Obesity ( bmi 31.42) GI/Hepatic Comments: CC Personal history of colonic polyps 11/21/2022 - 11/23/2022 Admission For small bowel obstruction She was treated with bowel rest, IVFs, NGT decompression, analgesics and antiemetics. 10/17/2022 Gastro For eval of rectal bleeding. Colonoscopy showed 15+ polyps. Only 5 polyps were removed due to poor bowel prep. Pathology with TAX2, SSA X1, HP X2. Patient has no complains today and rectal bleeding has resolved. 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 Hold on DOS. Phentermine: Alert [facility] anesthesiologist SGLT2 Inhibitors: "gliflozins" to be held for 3 days prior to elective surgeries MAC Cases: Continue taking ADY inhibitors and ARBs ASA Classification ASA: 3 ASA Comments: Hypothyroid, Uterine CA - s/p hysterectomy Anemia, Thrombocytopenia Assessment/Plan Rowan Bonilla is a 61 year old female who presented for rectal bleeding with h/o pelvic XRT for cervical cancer 20 years ago. Concern for radiation proctitis. Will evaluate with diagnostic colonoscopy 04/21/22. Current Medications: Current Facility-Administered Medications Medication Dose Route Frequency Last Rate Last Admin lactated ringers IV infusion 1,000 mL 1,000 mL IV Infusion ONCE Previous Surgeries: Past Surgical History: Procedure Laterality Date APPENDECTOMY 1977 COLONOSCOPY N/A 04/21/2022 Surgeon: Radha Pena MD; Location: [facility] DILATION AND CURETTAGE (SHX) HYSTERECTOMY Anesthesia Physical Exam General no apparent distress and alert and oriented x 3 Neuro/Psych nonfocal Dental no notable dental hx Abdominal (+) abdomen soft Airway Mallampati score:II TM distance:> 5 cm Neck ROM: full Mouth opening:normal Extremity Pulmonary bilateral clear to auscultation Other Cardiovascular Rhythm:regular Anesthesia Plan ASA Status: 3 Plan discussed during pre-op evaluation: General and TIVA Anesthetic plan on DOS: General and TIVA Plan to include: IV induction and face mask Anesthesia plan discussed with: patient or telephone claims representative Post-Operative Analgesia: routine analgesia & antiemetics Recovery Plan: PACU Additional comments: [facility]2023-09-08 14:03:16 Medication sent to pharmacy patient requested. My chart message sent to provider. [facility]2023-09-08 10:35:07 Rowan Bonilla is a 62 year old female She has a Colonoscopy Sunday01/23/23. She has not received the medication for this yet. Please call her to assist. [facility] [address] [place] [id number] Reema Garcia Jean PierreOhioHealth Nelsonville Health [id number] 10:12:44 Name/ MRN / Age / Gender: Rowan Bonilla, [id number] 62 year old female BMI: Estimated body mass index is 31.42 kg/m? as calculated from the following: Height as of 11/21/22: 1.6 m (5' 3"). Weight as of 11/23/22: 80.5 kg (177 lb 6.4 oz). Allergies: Patient has no known allergies. Last Vitals: BP Readings from Last 1 Encounters: 11/23/22 120/60 Pulse Readings from Last 1 Encounters: 11/23/22 63 SpO2 Readings from Last 1 Encounters: 11/23/22 94% Date of Surgery: 01/23/2023 Surgeon: Leroy Martel MD Procedure: COLONOSCOPY (Rectum) OR [facility]: [facility] Anesthesia Preop Screen (no physical exam) Copied forward and updated from: 04/21/2022 Anesthesia Preop: Chart Review PONV Risk Factors: female and non-smoker PONV Risk Score: 2 Anesthesia History Anesthesia History Negative per Chart Review Previous Anesthetics/Airways Additional Comments: 04/21/2022 TIVA Cardiovascular Comments: 11/21/2022 EKG HR 60 Normal sinus rhythm with sinus arrhythmia Normal ECG 02/06/2022 TTE o Left Ventricle: Left ventricle size is normal. Mild basal septal thickening. Normal wall motion. Normal systolic function with a visually estimated EF of 55 - 60%. Indeterminate diastolic function. o Tricuspid Valve: Insufficient regurgant jet to estimate RVSP. RA pressure is 0-5 mmHg. o Left Atrium: Left atrium is severely dilated. Atrial septal aneurysm present. (+) Hypertension (+) Dyslipidemia (+) Echocardiogram results EF: 55% Pulmonary Pulmonary ROS Negative per Chart Review (+) Tobacco use ( former) Neuro/Musculoskeletal Negative Neuro/Musculosketal ROS (+) Obesity ( bmi 31.42) GI/Hepatic Comments: CC Personal history of colonic polyps 11/21/2022 - 11/23/2022 Admission For small bowel obstruction She was treated with bowel rest, IVFs, NGT decompression, analgesics and antiemetics. 10/17/2022 Gastro For eval of rectal bleeding. Colonoscopy showed 15+ polyps. Only 5 polyps were removed due to poor bowel prep. Pathology with TAX2, SSA X1, HP X2. Patient has no complains today and rectal bleeding has resolved. 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 Hold on DOS. Phentermine: Alert [facility] anesthesiologist SGLT2 Inhibitors: "gliflozins" to be held for 3 days prior to elective surgeries MAC Cases: Continue taking ADY inhibitors and ARBs ASA Classification ASA: 3 ASA Comments: Hypothyroid, Uterine CA - s/p hysterectomy Assessment/Plan Rowan Bonilla is a 61 year old female who presented for rectal bleeding with h/o pelvic XRT for cervical cancer 20 years ago. Concern for radiation proctitis. Will evaluate with diagnostic colonoscopy 04/21/22. Current Medications: No current facility-administered medications for this encounter. Current Outpatient Medications Medication Sig Dispense Refill estradioL (ESTRACE) 0.01 % (0.1 mg/gram) vaginal cream Apply 1g vaginally at bedtime every night for 2 weeks and then apply 1g vaginally at bedtime 2 times per week 42.5 g 5 atorvastatin 40 mg tablet Take 1 tablet by mouth at bedtime. lisinopriL-hydrochlorothiazide 20-25 mg per tablet Take 1 tablet by mouth in the morning. ferrous sulfate (IRON, FERROUS SULFATE,) 325 mg (65 mg iron) tablet Take 1 tablet by mouth every other day. 30 tablet 0 levothyroxine (SYNTHROID) 125 mcg tablet TAKE 1 TABLET BY MOUTH EVERY MORNING (Patient taking differently: 88 mcg.) 30 tablet 1 Previous Surgeries: Past Surgical History: Procedure Laterality Date APPENDECTOMY 1977 COLONOSCOPY N/A 04/21/2022 Surgeon: Radha Pena MD; Location: [facility] DILATION AND CURETTAGE (SHX) HYSTERECTOMY Physical Exam Anesthesia Plan ASA Status: 3 T Emi Iglesias [facility]Guscec4116-30-54 09:48:35 Patient contacted for pre op phone call. Patient given procedural prep instructions, NPO status/timing for procedure, medication instructions,pt denies taking blood thinners. Patient verbalized understanding of instructions. Discussed with patient they will need a responsible adult, 18 years old orolder, to provide transportation on the day of procedure. Patient also informed that they will be contacted the day before their procedure with arrival time. Pre op call complete. Pt instructed to hold iron supplements until procedure is completed. CLD and split prep reviewed with pt. Pt verbalized understanding. HANIT Jessie Llanos [facility]
[2024-03-05] MEDS ORDERED: KETOROLAC 30 MG/ML INJ ONE (18:05)
[2024-03-05] MEDS ORDERED: HYDROCODONE/APAP 5/325 MG TAB ONE (18:05)
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
[2024-03-06 02:23] VITALS: O2SAT 100
[2024-03-06 02:26] VITALS: BP 167/61; TEMP 98.1
== END 2024-03-05 18:46 | disposition home or self-care (01) ==
LOC: ER 17:41
DX: S16.1XXA Strain of muscle, fascia and tendon at neck level, initial encounter (principal); V53.5XXA Driver of pick-up truck or van injured in collision with car, pick-up truck or van in traffic accident, initial encounter

== ENCOUNTER 2024-06-18 00:47 | Emergency (ER) | payer BC ==
--- OUTSIDE RECORDS SUMMARY | 2024-06-18 01:20 | XMS REPORT | Continuity of Care Document ---
Author Name Unknown Address [address] [facility] [address] [place] [address] [facility] thconnect Address [address] [facility] [address] [place] [address] Care Team Providers Care Superintendent Transportation Name Role Phone Marco Antonio OLVERA MD, Joseph Anthony Primary Care Physi lux JENNIFER JERNIGAN Attending Clinician UnavailNAHOMI Irizarry Attending Clinician Unavailable [facility] Attending Clinician Unavailable Jennifer Sommer Attending Clinician [phone] RADIOLOGY Attending Clinician Unavailable Radiology Attending Clinician Unavailable Doctor Unassigned, Riviera Attending Clinician Luke Islas CHT Attending Clinician Unavaila mark Bueno MD, Nahomi Attending Clinician [phone] Jonatan Diez MD Attending Clinician JUSTINO ALRACON Attending Clinician Unavailable Sara PRINTER MACHINE, Nica Urban Attending Clinician [phone] Eddie BEAR, Alpesh Attending Clinician [phone] Agnes BEAR, Justino Attending Clinician [phone] Kamran BEAR, Mj Attending Clinician [phone] MJ SOLITARIO Attending Clinician Unavailable Bertin Rodríguez MD Attending Clinician + BERTIN RODRÍGUEZ Attending Clinician Unav DAYAN Luz Attending Clinician Unavailable Janell MITCHELL, Brandon Attending Clinician + [phone] Oscar Madden DO Attending Clinician +[phone] Dayan Nevarez MD Attending Clinician +[phone] Laura Caraballo MD Attending Clinician [phone] JONATAN DIEZ Attending Clinician Unavailallie Crowe RN, Gayle Gomez Attending Clinician Unavail Bertin Harris MD Attending Clinician [phone] PUNEET RANDOLPH Attending Clinician Unavailable PUNEET RANDOLPH Attending Clinician Unavailable Bladimir BEAR, Justyn Gomez Attending Clinician [phone] Mando BEAR, Pawel Cortez Attending Clinician + [phone] Delmar Greer MD Attending Clinician [phone] Gabe, [facility] Attending Clinician UnavailDesirae Lundberg Attending Clinician [phone] Puneet Randolph DO Attending Clinician [phone] Bertin Bates DO Attending Clinician [phone] Elmer Egan MD Attending Clinician [phone] Pradeep Estes MD Attending Clinician [phone] Rachel Lange CRNA Attending Clinician + [phone] Kathleen BEAR, Rajesh Solorzano Attending Clinician [phone] Len Elizabeth MD Attending Clinician [phone] Kwame Bullock MD Attending Clinician [phone] Kath Oden DO Attending Clinician [phone] Doctor Unassigned, Riviera Attending Clinician U purvi Diez MD, Jonatan Dennis Attending Clinician 2, Nelly Mda Procedure Rm Attending Clinician Unav ailable [email or web address]_S Attending Clinician Unavaila JACKY Guillaume Attending Clinician Unavailable JACKY ALMEIDA Attending Clinician Unavailable Anayeli BEAR, Leroy Attending Clinician [phone] LEROY MARTEL Attending Clinician Unavailable Elton HOLDEN, Rasheeda Marroquin Attending Clinician Unavailetta Carroll MD, Glen Attending Clinician + [phone] Edward Ramírez MD Attending Clinician [phone] Floridalma HOLDEN, Tressa Thurston Attending Clinician Unavail able YO GREER Attending Clinician Unavailabl rachel QUIROZ, Otilia S Attending Clinician [phone] Yo Greer MD Attending Clinician [phone] Lab, Ang - Db Attending Clinician Unavailable KENNY YU Attending Clinician Unavailab Kenny Menon DO Attending Clinician [phone] RADHA PENA Attending Clinician Unavailable Pob, Adc Lab Main Attending Clinician UnavailStewart Styles MD Attending Clinician [phone] STEWART CASTANEDA Attending Clinician Unavailable Radha Pena MD Attending Clinician [phone] Chico Sotelo MD Attending Clinician +[phone] CHICO SOTELO Attending Clinician Unavailable Danny Ta MD Attending Clinician [phone] DANNY AT Attending Clinician UnavailJordan Martinez Attending Clinician [phone] JORDAN OTERO Attending Clinician Unavailable NICA HOSKINS Attending Clinician Unavailable Nica Hoskins NP Attending Clinician +[phone] Leonidas Osorio Attending Clinician [phone] LEONIDAS MCGEE Attending Clinician Unavailable ODILIA MURO Admitting Clinician Unavailable ALPESH PACHECO Admitting Clinician Unavailable Alpesh Pacheco MD Admitting Clinician [phone] LAURA CARABALLO Admitting Clinician Unavailable Laura Caraballo MD Admitting Clinician [phone] DAYAN NEVAREZ Admitting Clinician Unavailable Dayan Nevarez MD Admitting Clinician +[phone] DELMAR GREER Admitting Clinician Unavailable Delmar Greer MD Admitting Clinician [phone] BERTIN ADAME Admitting Clinician Unavailable Bertin Adame MD Admitting Clinician [phone] [email or web address]_Kadiyala_S Admitting Clinician UnavailLEROY Pulido Admitting Clinician Unavailable Leroy Martel MD Admitting Clinician [phone] YO GREER Admitting Clinician UnavailYo Elaine MD Admitting Clinician +[phone] RADHA PENA Admitting Clinician Unavailable Radha Pena MD Admitting Clinician [phone] CHICO SOTELO Admitting Clinician Unavailable JORDAN OTERO Admitting Clinician Unavailable Payers Payer Name Policy Type Policy Number Effective Date Expirati on Date Source HIM [facility] [id number] 2022 00:00:00 MEDICARE PART A \\T\\ B [id number] 2023 00:00:00 Problems Condition Name Condition Details Condition Category Status Onset Date Resolution Date Last Treatment Date Treating Clinician Comments Source Other hyperlipid emia Other hyperlipid emia Disease Active 2023-05 00:00: 00 [facility] Chronic radiation cystitis Chronic radiation cystitis Disease Recurre nce 2023-05 00:00: 00 [facility] Weakness Weakness Disease Active 2023-05 00:00: 00 [facility] Anemia Anemia Disease Active 2023-05 00:00: 00 [facility] Cirrhosis Cirrhosis Disease Active 2023-05 2-14 00:00: 00 [facility] Exposure to other ionizing radiation, sequela Exposure to other ionizing radiation, sequela Disease Active 2023-05 2-10 00:00: 00 Eduardabrian Pressley Epic Coagulatio n defect Coagulatio n defect Disease Active 8-20 00:00: 00 [facility] Gross hematuria Gross hematuria Disease Active 8-08 00:00: 00 [facility] PVT (portal vein thrombosis ) PVT (portal vein thrombosis ) Disease Active 8-08 00:00: 00 [facility] Personal history of colonic polyps Personal history of colonic polyps Disease Active 6 00:00: 00 Overview: Formattin g of this note might be different from the original. Added automatic ally from request for surgery [id number] [facility] Radiation proctitis Radiation proctitis Disease Active 2021-05 2-16 00:00: 00 [facility] Essential (primary) hypertensi on Essential (primary) hypertensi on Disease Recurre nce 7-29 00:00: 00 [facility] H/O: hysterecto my H/O: hysterecto my Disease Active 09-17 00:00: 00 [facility] History of cervical cancer History of cervical cancer Disease Active 09-17 00:00: 00 [facility] Obesity Obesity Disease Active 09-17 00:00: 00 Overview: Formattin g of this note might be different from the original. 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[employer] [facility] Hypothyroi d Hypothyroi d Disease Active 09-17 00:00: 00 [facility] Tobacco use disorder Tobacco use disorder Disease Active 09-17 00:00: 00 [facility] Somnolence Somnolence Disease Resolve d 2023-05 1-26 00:00: 00 2024-04-27 00:00:00 2024-04-27 10:41:11 [facility] Altered mental status, unspecifie d altered mental status type Altered mental status, unspecifie d altered mental status type Disease Resolve d 2023-05 0-28 00:00: 00 2024-04-27 00:00:00 2024-04-27 10:41:13 [facility] Hematuria, unspecifie d type Hematuria, unspecifie d type Disease Resolve d 9-22 00:00: 00 2024-04-27 00:00:00 2024-04-27 10:41:15 [facility] Nausea and vomiting, unspecifie d vomiting type Nausea and vomiting, unspecifie d vomiting type Disease Resolve d 8-08 00:00: 00 2024-04-27 00:00:00 2024-04-27 10:43:27 [facility] Abdominal pain, unspecifie d abdominal location Abdominal pain, unspecifie d abdominal location Disease Resolve d 7-11 00:00: 00 2024-04-27 00:00:00 2024-04-27 10:43:28 [facility] Hematuria of unknown etiology Hematuria of unknown etiology Disease Resolve d 3-02 00:00: 00 2024-04-27 00:00:00 2024-04-27 10:43:32 [facility] Hematochez ia Hematochez ia Disease Resolve d 2021-05 1-11 00:00: 00 2024-04-27 00:00:00 2024-04-27 10:40:23 [facility] Urinary tract infection, site not specified Urinary tract infection, site not specified Disease Resolve d 5-07 00:00: 00 2024-04-27 00:00:00 2024-04-27 10:40:12 [facility] Allergies, Adverse Reactions, Alerts Allergy Name Allergy Type Status Severity Reaction(s) Onset Date Inactive Date Treating Clinician Comments Source [place] - Intraven ous Propensi ty to adverse reaction to drug Active 7-11 00:00: 00 Jonatan Eason NO KNOWN ALLERGIE S Drug Class Active [facility] Family History Family Member Diagnosis Comments Start Date Stop Date Sourc e Natural [facility] Natural daughter Diabetes Uni versity [facility] Natural daughter Hypertension [facility] Natural father [facility] Maternal Aunt High cholesterol [facility] Paternal Uncle [facility] Social History Social Habit Start Date Stop Date Quantity Comments Source Gender identity 2023-08-04 09:06:46 Identifies as female gender (finding[facility] of tobacco use Passive smoker [facility] History SDOH Alcohol Frequency [facility] History SDOH Alcohol Std Drinks [facility] History SDOH Alcohol Binge [facility] ASSERTION Possible [facility] Sexual orientation [facility] Alcoholic beverage intake 2024-06-17 00:00:00 2024-06-17 00:00:00 Current drinker of alcohol (finding) [facility] Tobacco use and exposure 2024-04-26 00:00:00 2024-04-26 00:00:00 Former smokeless tobacco user [facility] History of Social function 2024-04-25 00:00:00 2024-04-25 00:00:00 [facility] Alcohol intake 2023-03-29 00:00:00 2023-03-29 00:00:00 Current drinker of alcohol (finding) [facility] Exposure to SARS-CoV-2 (event) 2022-09-24 00:00:00 2022-10-04 08:51:00 Not sure [facility] Sex 2020-07-08 01:44:40 2020-07-08 01:44:40 Female (finding) [facility] Alcohol Comment 2014-09-16 00:00:00 2014-09-16 00:00:00 social use-once every other week, beer-daily [facility] Sex assigned at 1960 00:00:00 1960 00:00:00 F [facility] Smoking Status Start Date Stop Date Source Tobacco smoking consumption unknown [facility] Ex-smoker 2024-04-26 00:00:00 2024-04-26 00:00:00 [facility] Occasional tobacco smoker 2022-01-23 00:00:00 [facility] Medications Ordered Medication Name Filled Medication Name Start Date Stop Date Current Medication? Ordering Clinician Indication Dosage Frequency Signature (SIG) Comments Components Source furosemide 20 mg tablet 06-17 09:05: 53 Yes 20mg Take 1 tablet by mouth in the morning. [facility] Vitamin D3 50 mcg (2,000 unit) tablet 06-02 00:00: 00 Yes 1(2,000 unit) Jonatan Eason Vitamin D2 1,250 mcg (50,000 unit) capsule 06-02 00:00: 00 Yes 1(50,00 0 unit) Jonatan Eason Vitamin D3 50 mcg (2,000 unit) tablet 05-20 00:00: 00 Yes 1(2,000 unit) Jonatan Eason Vitamin D2 1,250 mcg (50,000 unit) capsule 05-20 00:00: 00 Yes 1(50,00 0 unit) Jonatan Eason furosemide 20 mg tablet 2023-05 00:00: 00 Yes 1mg Jonatan Eason amoxicillin -clavulanat e (AUGMENTIN) 875-125 mg per tablet 2023-05 00:00: 00 05-07 05:59 :00 Yes [id number] 1{tbl} Take 1 tablet by mouth in the morning and 1 tablet in the evening. Do all this for 7 days. [facility] foLIC acid 1 mg tablet 2023-05 18:13: 06 Yes 1mg Take 1 tablet by mouth in the morning. [facility] Vitamin B-1 50 mg tablet 2023-05 18:13: 06 Yes 50mg Take 1 tablet by mouth in the morning. [facility] ferrous sulfate (IRON) 325 mg (65 mg iron) tablet 2023-05 18:13: 06 Yes 325mg Take 1 tablet by mouth in the morning and 1 tablet at noon and 1 tablet in the evening. Take with meals. [facility] KCL (KLOR-CON M20) tablet 40 mEq 2023-05 13:45: 00 04-27 14:03 :00 No 40meq 40 mEq, Oral, ONCE, 1 dose, On 04/27/24 at 0745, Routine [facility] atorvastati n (LIPITOR) tablet 40 mg 2023-05 23:00: 00 04-29 00:13 :06 No 40mg 40 mg, Oral, QPM, First dose on 04/26/24 at 1700, Until Discontinu ed, Routine [facility] lactated ringers IV infusion 500 mL 2023-05 16:00: 00 04-26 15:06 :00 No 500mL at 999 mL/hr, 500 mL, Intravenou s, ONCE, 1 dose, On 04/26/24 at 1000, Routine [facility] iron dextran (INFED) 25 mg in NaCl 0.9% (NS) 100 mL IV piggyback 2023-05 15:45: 00 04-26 18:13 :00 No 25mg 25 mg, IV Piggyback, ONCE, 1 dose, On 04/26/24 at 0945, Administer over 15 Minutes, 100 mL [facility] iron dextran (INFED) 1,000 mg in NaCl 0.9% (NS) 500 mL IV infusion 2023-05 15:45: 00 04-26 19:17 :00 No 1000mg 1,000 mg, IV Infusion, ONCE, 1 dose, On 04/26/24 at 0945, Administer over 1 Hours, 500 mL [facility] foLIC acid (FOLATE) tablet 1 mg 2023-05 15:00: 00 04-29 00:13 :06 No 1mg 1 mg, Oral, DAILY, First dose on 04/26/24 at 0900, Until Discontinu ed, Routine [facility] lactulose (CEPHULAC) 10 gram/15 mL oral solution 30 mL 2023-05 14:00: 00 04-29 00:13 :06 No 30mL 30 mL, Oral, TID, First dose on 04/26/24 at 0800, Until Discontinu ed, Routine [facility] levothyroxi ne (SYNTHROID) tablet 112 mcg 2023-05 12:00: 00 04-29 00:13 :06 No 112ug 112 mcg, Oral, QAM-0600, First dose on 04/26/24 at 0600, Until Discontinu ed, Routine Univers [facility] NaCl 0.9% (NS) bolus infusion 500 mL 2023-05 10:00: 00 04-26 10:15 :00 No 500mL at 999 mL/hr, 500 mL, IV Infusion, ONCE, 1 dose, On 04/26/24 at 0400, STAT [facility] lactulose 10 gram/15 mL solution 2023-05 00:00: 00 06-25 05:59 :00 Yes [id number] 15mL Take 15 mL by mouth in the morning and 15 mL in the evening. Do all this for 60 days. [facility] lisinopril 10 mg tablet 2023-05 00:00: 00 Yes 1mg Jonatan Eason folic acid 1 mg tablet 2023-05 00:00: 00 Yes 1mg Jonatan Eason atorvastati n 40 mg tablet 2023-05 00:00: 00 Yes 1mg Jonatan Eason levothyroxi ne 112 mcg tablet 2023-05 00:00: 00 Yes 1mcg Jonatan Eason diclofenac 1 % topical gel 2023-05 00:00: 00 Yes 1% Jonatan Eason triamcinolo ne acetonide 0.1 % topical cream 2023-05 00:00: 00 Yes 1% Jonatan Eason levothyroxi ne 112 mcg tablet 2023-05 00:00: 00 Yes 1mcg Jonatan Eason atorvastati n 40 mg tablet 2023-05 00:00: 00 Yes TAKE 1 TABLET BY MOUTH NIGHTLY [facility] lisinopriL 10 mg tablet 2023-05- 00:00: 00 Yes [facility] atorvastati n (LIPITOR) tablet 40 mg 2023-05 03:00: 00 04-10 03:22 :38 No 40mg 40 mg, Oral, QHS, First dose on Sun04/08/24 at 2100, Until Discontinu ed, Routine Univers [facility] amoxicillin -clavulanat e 875-125 mg per tablet 2023-05 00:00: 00 04-13 05:59 :00 Yes [id number] 1{tbl} Take 1 tablet by mouth in the morning and 1 tablet in the evening. Do all this [facility] lisinopriL (PRINIVIL,Z ESTRIL) tablet 10 mg 2023-05 15:00: 00 04-10 03:22 :38 No 10mg 10 mg, Oral, DAILY, First dose on Sun04/08/24 at 0900, Until Discontinu ed, Routine [facility] KCL (KLOR-CON M20) tablet 40 mEq 2023-05 12:45: 00 04-08 11:56 :00 No 40meq 40 mEq, Oral, ONCE, 1 dose, On Sun04/08/24 at 0645, Routine [facility] cefTRIAXone (ROCEPHIN) 1,000 mg in water for injection, sterile 10 mL IV Push 2023-05 12:15: 00 04-10 03:22 :38 No 1000mg 1,000 mg, Intravenou s, Q24H ABX, 5 doses, First dose on Sun04/08/24 at 0615, Last dose on Sun04/12/24 at 0615, 10 mL, Reason for Anti-Infec tive: Empiric Therapy for Suspected Infection, Empiric Therapy Site: Urine, Duration of therapy: 5 days [facility] levothyroxi ne (SYNTHROID) tablet 125 mcg 2023-05 12:00: 00 04-10 03:22 :38 No 125ug 125 mcg, Oral, QAM-0600, First dose on Sun04/08/24 at 0600, Until Discontinu ed, Routine [facility] lactulose (CEPHULAC) 10 gram/15 mL oral solution 30 mL 2023-05 10:15: 00 04-10 03:22 :38 No 30mL 30 mL, Oral, Q6H, First dose on Sun04/08/24 at 0415, Until Discontinu ed, Routine [facility] ondansetron (ZOFRAN (PF)) injection 4 mg 2023-05 09:04: 34 04-10 03:22 :38 No 4mg [facility] traMADoL (ULTRAM) tablet 50 mg 2023-05 09:04: 29 04-10 03:22 :38 No 50mg [facility] ibuprofen (MOTRIN IB) tablet 200 mg 2023-05 09:04: 23 04-10 03:22 :38 No 200mg [facility] lisinopril 10 mg tablet 2023-05 00:00: 00 Yes 1mg Jonatan F Landy levothyroxi ne 112 mcg tablet 2023-05 00:00: 00 Yes 1mcg Jonatan Eason ferrous sulfate (IRON, FERROUS SULFATE,) 325 mg (65 mg iron) tablet 2023-05 00:00: 00 04-15 05:59 :00 No [id number] 325mg Take 1 tablet by mouth in the morning for 30 days. [facility] lisinopriL 10 mg tablet 2023-05 00:00: 00 04-15 05:59 :00 No [id number] 10mg Take 1 tablet by mouth in the morning for 30 days. [facility] KCL (KLOR-CON M20) tablet 40 mEq 2023-05 11:30: 00 03-14 13:20 :00 No 40meq 40 mEq, Oral, ONCE, 1 dose, On Sun03/14/24 at 0630, Routine [facility] atorvastati n 40 mg tablet 2023-05 00:00: 00 04-14 05:59 :00 No [id number] 40mg Take 1 tablet by mouth at bedtime for 30 days. [facility] foLIC acid 1 mg tablet 2023-05 00:00: 00 04-14 05:59 :00 No [id number] 1mg Take 1 tablet by mouth in the morning for 30 days. [facility] lact[facility] gram/15 mL oral solution 2023-05 00:00: 00 04-14 05:59 :00 No [id number] 30mL Take 30 mL by mouth in the morning and 30 mL at noon and 30 mL in the evening. Do all this for 30 days. [facility] levothyroxi ne 125 mcg tablet 2023-05 00:00: 00 04-14 05:59 :00 No [id number] 125ug Take 1 tablet by mouth every morning for 30 days. [facility] thiamine mononitrate 100 mg tablet 2023-05 00:00: 00 04-14 05:59 :00 No [id number] 100mg Take 1 tablet by mouth in the morning and 1 tablet at noon and 1 tablet in the evening. Do all this for 30 days. [facility] amoxicillin 500 mg tablet 2023-05 00:00: 00 03-22 05:59 :00 No [id number] 500mg Take 1 tablet by mouth in the morning and 1 tablet at noon and 1 tablet in the evening. Do all this for 7 days. [facility] ampicillin (POLYCILLIN -N) 2,000 mg in NaCl 0.9% (NS) 100 mL MINI-BAG 2023-05 01:45: 00 03-14 15:57 :33 No 2000mg 2,000 mg, IV Piggyback, Q6H ABX, 28 doses, First dose on Sun03/12/24 at 2045, Last dose on Sun03/19/24 at 1445, Administer over 30 Minutes, 100 mL, Reason for Anti-Infec tive: Documented Infection, Documented Infection Site: Urine, Duration of Therapy: 7 days [facility] lactulose (CEPHULAC) 10 gram/15 mL oral solution 30 mL 2023-05 01:00: 00 Yes 30mL 30 mL, Oral, TID, First dose (after last modificati on) on Sun03/12/24 at 2000, Until Discontinu ed, Routine [facility] atorvastati n (LIPITOR) tablet 40 mg 2023-05 02:00: 00 03-14 15:57 :33 No 40mg 40 mg, Oral, QHS, First dose on Sun03/11/24 at 2100, Until Discontinu ed, Routine [facility] KCL (KLOR-CON M20) tablet 40 mEq 2023-05 15:00: 00 03-11 19:54 :00 No 40meq 40 mEq, Oral, ONCE, 1 dose, On Sun03/11/24 at 1000, Routine [facility] lisinopriL (PRINIVIL,Z ESTRIL) tablet 10 mg 2023-05 14:00: 00 Yes 10mg 10 mg, Oral, DAILY, First dose on Sun03/11/24 at 0900, Until Discontinu ed, Routine [facility] ferrous sulfate tablet 325 mg 2023-05 14:00: 00 Yes 325mg 325 mg, Oral, DAILY, First dose on Sun03/11/24 at 0900, Until Discontinu ed, [facility] (FOLATE) tablet 1 mg 2023-05 14:00: 00 03-14 15:57 :33 No 1mg 1 mg, Oral, DAILY, First dose on Sun03/11/24 at 0900, Until Discontinu ed, Routine [facility] thiamine mononitrate (VITAMIN B-1 (MONONITRAT E)) tablet 100 mg 2023-05 13:00: 00 03-14 15:57 :33 No 100mg 100 mg, Oral, TID, First dose on Sun03/11/24 at 0800, Until Discontinu ed, Routine [facility] lactulose (CEPHULAC) 10 gram/15 mL oral solution 30 mL 2023-05 13:00: 00 03-13 00:46 :46 No 30mL 30 mL, Oral, BID, First dose on Sun03/11/24 at 0800, Until Discontinu ed, Routine [facility] levothyroxi ne (SYNTHROID) tablet 125 mcg 2023-05 11:00: 00 Yes 125ug 125 mcg, Oral, QAM-0600, First dose on Sun03/11/24 at 0600, Until Discontinu ed, Routine [facility] NaCl 0.9% (NS) bolus infusion 1,000 mL 2023-05 00:30: 00 03-11 13:43 :00 No 1000mL at 999 mL/hr, 1,000 mL, IV Infusion, ONCE, 1 dose, On Sun03/10/24 at 1930, STAT [facility] ondansetron (ZOFRAN (PF)) injection 4 mg 2023-05 00:25: 28 03-14 15:57 :33 No 4mg [facility] acetaminoph en (TYLENOL) tablet 650 mg 2023-05 00:25: 15 03-14 15:57 :33 No 650mg [facility] iopamidol (ISOVUE 370-500 mL) injection 80 mL 2023-05 00:03: 00 03-11 00:05 :00 No [id number] 80mL 80 mL, Intravenou s, ONCE, 1 dose, On Sun03/10/24 at 1930, Routine [facility] cefTRIAXone (ROCEPHIN) 1,000 mg in water for injection, sterile 10 mL IV Push 2023-05 00:00: 00 03-11 01:08 :00 No 1000mg 1,000 mg, Intravenou s, ONCE, 1 dose, On Sun03/10/24 at 1900, 10 mL, Reason for Anti-Infec tive: Empiric Therapy for Suspected Infection, Empiric Therapy Site: Urine, Duration of therapy: Once (ED) [facility] levothyroxi ne 112 mcg tablet 2023-05 0 00:00: 00 Yes 112ug Take 1 tablet by mouth. [facility] levothyroxi ne 112 mcg tablet 2023-05 0 00:00: 00 Yes 1mcg Jonatan Eason lisinopril 10 mg-hydrochl orothiazide 12.5 mg tablet 2023-05 0 00:00: 00 Yes 1mg Jonatan Eason ibuprofen [...] amLODIPine 5 mg tablet 02-04 13:56: 33 03-14 00:00 :00 No 5mg Take 1 tablet by mouth in the morning. [facility] HYDROmorpho ne (DILAUDID) injection 0.2 mg 02-03 19:19: 56 02-03 20:49 :01 No .2mg 0.2 mg, Slow IV Push, Q5MIN PRN, 10 doses, Starting on Sun02/04/24 at 1419, Until Sun02/04/24 at 1549, Routine, Pain (scale 7-10), PACU, Is this medication approved by a Faculty level provider? 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 Restricted medication : PACU RECOVERY [facility] HYDROcodone -acetaminop hen (NORCO 5) tablet 1 tablet 02-03 04:45: 00 02-03 04:08 :00 No 1{tbl} 1 tablet, Oral, ONCE, 1 dose, On Sun02/03/24 at 2345, Routine [facility] [facility] atorvastati n (LIPITOR) tablet 40 mg 02-03 02:00: 00 Yes 40mg 40 mg, Oral, QHS, First dose on Sun02/03/24 at 2100, Until Discontinu ed, Routine [facility] sodium chloride 0.9 % irrigation solution 3,000 mL 02-02 17:50: 32 Yes 3000mL 3,000 mL, Irrigation , PRN, Starting on Sun02/03/24 at 1250, Until Discontinu ed, 3,000 mL [facility] cefTRIAXone (ROCEPHIN) 1,000 mg in NaCl 0.9% (NS) 100 mL MINI-BAG 02-02 17:49: 00 02-02 20:33 :00 No 1000mg 1,000 mg, IV Piggyback, ONCE, 1 dose, On Sun02/03/24 at 1300, Administer over 30 Minutes, 100 mL, Reason for Anti-Infec tive: Surgical Prophylaxi s, Surgical Prophylaxi s: Genitourin pao, Duration of therapy: [facility] NaCl 0.9% (NS) IV Line Priming and Flushing Fluid Only 250 mL 02-02 17:15: 00 02-02 18:27 :00 No 250mL 250 mL, IV Infusion, ONCE, 1 dose, On Sun02/03/24 at 1215, 250 mL [facility] ferrous sulfate tablet 325 mg 02-02 15:33: 10 Yes 325mg 325 mg, Oral, Q OTHERDAY, First dose on Sun02/03/24 at 1045, Until Discontinu ed, Routine [facility] lactulose (CEPHULAC) 10 gram/15 mL (15 mL) oral solution 30 mL 02-02 14:00: 00 Yes 30mL 30 mL, Oral, DAILY, First dose on Sun02/03/24 at 0900, Until Discontinu ed, Routine [facility] foLIC acid (FOLATE) tablet 1 mg 02-02 14:00: 00 Yes 1mg 1 mg, Oral, DAILY, First dose on Sun02/03/24 at 0900, Until Discontinu ed, Routine [facility] thiamine mononitrate (VITAMIN B-1 (MONONITRAT E)) tablet 100 mg 02-02 13:00: 00 Yes 100mg 100 mg, Oral, TID, First dose on Sun02/03/24 at 0800, Until Discontinu ed, Routine [facility] magnesium sulfate in water 4 gram/50 mL (8 %) IV Piggyback 4 g 02-02 12:30: 00 02-02 14:30 :00 No 4g 4 g, IV Piggyback, at 25 mL/hr Administer over 120 Minutes, ONCE, 1 dose, On Sun02/03/24 at 0730, Routine [facility] KCL (KLOR-CON M20) tablet 40 mEq 02-02 12:30: 00 02-02 14:06 :00 No 40meq 40 mEq, Oral, ONCE, 1 dose, On Sun02/03/24 at 0730, Routine [facility] levothyroxi ne (SYNTHROID) tablet 100 mcg 02-02 11:00: 00 Yes 100ug 100 mcg, Oral, QAM-0600, First dose on Sun02/03/24 at 0600, Until Discontinu ed, Routine [facility] iopamidol (ISOVUE 370-500 mL) injection 100 mL 02-02 08:45: 00 02-02 08:45 :00 No [id number] 100mL 100 mL, Intravenou s, ONCE, 1 dose, On Sun02/03/24 at 0345, Routine [facility] acetaminoph en (TYLENOL) tablet 650 mg 02-02 06:44: 01 Yes 650mg [facility] NaCl 0.9% (NS) IV Line Priming and Flushing Fluid Only 250 mL 02-02 05:45: 00 02-02 09:16 :00 No 250mL 250 mL, IV Infusion, ONCE, 1 dose, On Sun02/03/24 at 0045, 250 mL [facility] lisinopril 10 mg-hydrochl orothiazide 12.5 mg tablet [...] acid 1 mg tablet 01-04 00:00: 00 03-14 00:00 :00 No [id number] 1mg Take 1 tablet by mouth in the morning. [facility] lactated ringers IV infusion 500 mL 01-03 14:15: 00 01-03 13:46 :00 No 500mL at 999 mL/hr, 500 mL, Intravenou s, ONCE, 1 dose, On Sun01/04/24 at 0915, Routine [facility] thiamine mononitrate 100 mg tablet 01-03 00:00: 00 03-14 00:00 :00 No [id number] 100mg Take 1 tablet by mouth in the morning and 1 tablet at noon and 1 tablet in the evening. [facility] lactulose 10 gram/15 mL solution 01-03 00:00: 00 03-14 00:00 :00 No [id number] 30mL Take 30 mL by mouth in the morning. [facility] atorvastati n 40 mg tablet 01-03 00:00: 00 03-14 00:00 :00 No [id number] 40mg Take 1 tablet by mouth at bedtime. [facility] iopamidol (ISOVUE 300-100 mL) injection 200 mL 01-02 19:59: 36 01-02 20:00 :00 No [id number] 200mL 200 mL, Intravenou s, TITRATE - FOR PROCEDURE USE, 1 dose, Starting on Sun01/03/24 at 1459, Until Sun01/03/24 at 1500, Routine, Surgery/Pr ocedure [facility] iopamidol (ISOVUE 370-500 mL) injection 100 mL 12-31 21:15: 00 12-31 20:17 :00 No [id number] 100mL 100 mL, Intravenou s, ONCE, 1 dose, On Sun01/01/24 at 1615, Routine [facility] acetaminoph en-codeine (TYLENOL #3) 300-30 mg tablet 1 tablet 12-31 04:36: 28 Yes 1{tbl} 1 tablet, Oral, Q6HPRN, Starting on Sun12/31/23 at 2336, Until Discontinu ed, Routine, Pain (scale 4-6), Pain (scale 7-10) [facility] iopamidol (ISOVUE 300-100 mL) injection 300 mL 12-31 00:45: 00 12-30 23:47 :00 No [id number] 300mL 300 mL, Intravenou s, ONCE, 1 dose, On Sun12/31/23 at 1945, Routine [facility] sugammadex (BRIDION) injection 12-30 23:30: 00 12-31 00:19 :09 No IV Push, ONCE INTRA PROCEDURE, Starting on Sun12/31/23 at 1830, Until Sun12/31/23 at 1919, Routine, Intra-op [facility] dexamethaso ne (DECADRON PHOSPHATE) injection 12-30 21:05: 00 12-31 00:19 :09 No IV Push, ONCE INTRA PROCEDURE, Starting on Sun12/31/23 at 1605, Until Sun12/31/23 at 191, Routine, Intra-op [facility] ondansetron (ZOFRAN (PF)) injection 12-30 21:05: 00 12-31 00:19 :09 No Slow IV Push, ONCE INTRA PROCEDURE, Starting on Sun12/31/23 at 1605, Until Sun12/31/23 at 191, Routine, Intra-op [facility] heparin (1,000 unit/mL, 10 mL vial) 12-30 20:32: 00 12-31 00:19 :09 No ONCE INTRA PROCEDURE, Starting on Sun12/31/23 at 1532, Until Sun12/31/23 at 1919, Routine, Intra-op [facility] heparin flush (PF) 2,000 units in 1000 mL NS RTU injection 12-30 20:26: 20 12-30 20:26 :20 No IV Push, PRN, Starting on Sun12/31/23 at 1526, Intra-op [facility] lidocaine 1% (PF) (XYLOCAINE) injection 12-30 20:25: 46 12-30 20:25 :46 No PRN, Starting on Sun12/31/23 at 1525, Until Sun12/31/23 at 1525, Routine, Intra-op [facility] PHENYLephri ne 1000 mcg/10 mL in 0.9% NaCl syringe 12-30 19:45: 00 12-31 00:19 :09 No Slow IV Push, CONTINUOUS PRN, Starting on Sun12/31/23 at 1445, Until Sun12/31/23 at 1919, Routine, Intra-op [facility] ePHEDrine 25 mg/5 mL (5 mg/mL) syringe 12-30 19:35: 00 12-31 00:19 :09 No Slow IV Push, ONCE INTRA PROCEDURE, Starting on Sun12/31/23 at 1435, Until Sun12/31/23 at 191, Routine, Intra-op [facility] rocuronium (ZEMURON) injection 12-30 19:05: 00 12-31 00:19 :09 No IV Push, ONCE INTRA PROCEDURE, Starting on Sun12/31/23 at 1405, Until Sun12/31/23 at 191, Routine, Intra-op [facility] ceFAZolin (ANCEF) injection 12-30 18:55: 00 12-31 00:19 :09 No Intravenou s, ONCE INTRA PROCEDURE, Starting on Sun12/31/23 at 1355, Until Sun12/31/23 at 1919, NURIA, Intra-op [facility] NaCl 0.9% (NS) IV infusion 12-30 18:10: 00 12-31 00:19 :09 No IV Infusion, CONTINUOUS PRN, Starting on Sun12/31/23 at 1310, Until Sun12/31/23 at 191, Routine, Intra-op [facility] propofoL IV infusion 12-30 18:04: 00 12-31 00:19 :09 No Intravenou s, ONCE INTRA PROCEDURE, Starting on Sun12/31/23 at 1304, Until Sun12/31/23 at 1918, Routine, Intra-op [facility] lidocaine 1% (XYLOCAINE) 100 mg/10 mL (1 %) injection 12-30 18:04: 00 12-31 00:19 :09 No Intravenou s, ONCE INTRA PROCEDURE, Starting on Sun12/31/23 at 1304, Until Sun12/31/23 at 1918, Routine, Intra-op [facility] FENTanyl (PF) (SUBLIMAZE) injection 12-30 18:04: 00 12-31 00:19 :09 No Intravenou s, ONCE INTRA PROCEDURE, Starting on Sun12/31/23 at 1304, Until Sun12/31/23 at 1918, Routine, Intra-op [facility] lactated ringers IV infusion 12-30 17:56: 00 12-31 00:19 :09 No IV Infusion, CONTINUOUS PRN, Starting on Sun12/31/23 at 1256, Until Sun12/31/23 at 1918, Routine, Intra-op [facility] midazolam (VERSED) injection 12-30 17:56: 00 12-31 00:19 :09 No IV Push, ONCE INTRA PROCEDURE, Starting on Sun12/31/23 at 1256, Until Sun12/31/23 at 1918, Routine, Intra-op [facility] carvediloL (COREG) tablet 3.125 mg 12-26 22:00: 00 01-01 12:13 :18 No 3.125mg 3.125 mg, Oral, BID MEALS, First dose on Tanisha 12/27/23 at 1700, Until Discontinu ed, Routine [facility] heparin 25,000 Units/250 mL (Premixed Bag) in [...] INITIAL BOLUS OR INITIAL INFUSION RATE. FOR [facility], AND [facility] ONLY - aPTT < 35: Bolus 5000 [...] once therapeuti c levels are reached. FOR [facility] ONLY - aPTT < 40: Bolus [...] once therapeuti c levels are reached. [facility] heparin (1,000 unit/mL, 10 mL vial) 12-26 16:32: 35 Yes 3000U FOR REBOLUSING , Starting on Tanisha 12/27/23 at 1132, Until Discontinu ed, Routine, Dosing based on aPTT testing parameters (refer to continuous heparin drip order) [facility] thiamine mononitrate (VITAMIN B-1 (MONONITRAT E)) tablet 100 mg 12-24 13:00: 00 Yes 100mg 100 mg, Oral, TID, First dose on Sun12/25/23 at 0800, Until Discontinu ed, Routine [facility] oxazepam (SERAX) capsule 15 mg 12-23 22:53: 55 12-24 22:59 :00 No 15mg 15 mg, Oral, Q12H TAPER, 2 doses, First dose on Sun12/24/23 at 1800, Last dose on Sun12/25/23 at 0600, Routine [facility] KCL (KLOR-CON M20) tablet 40 mEq 12-22 19:30: 00 12-22 19:47 :00 No 40meq 40 mEq, Oral, ONCE, 1 dose, On 12/23/23 at 1430, Routine [facility] iopamidol (ISOVUE 370-500 mL) injection 100 mL 12-22 19:30: 00 12-22 20:17 :00 No [id number] 100mL 100 mL, Intravenou s, ONCE, 1 dose, On 12/23/23 at 1430, Routine [facility] foLIC acid (FOLATE) tablet 1 mg 12-22 14:00: 00 Yes 1mg 1 mg, Oral, DAILY, First dose on 12/23/23 at 0900, Until Discontinu ed, Routine [facility] lisinopriL (PRINIVIL,Z ESTRIL) tablet 10 mg 12-22 14:00: 00 12-27 11:28 :29 No 10mg 10 mg, Oral, DAILY, First dose on 12/23/23 at 0900, Until Discontinu ed, Routine [facility] levothyroxi ne (SYNTHROID) tablet 125 mcg 12-22 11:00: 00 Yes 125ug 125 mcg, Oral, QAM-0600, First dose (after last modificati on) on 12/23/23 at 0600, Until Discontinu ed, Routine [facility] lactulose (CEPHULAC) 10 gram/15 mL oral solution 30 mL 12-22 01:00: 00 Yes 30mL 30 mL, Oral, BID, First dose on 12/22/23 at 2000, Until Discontinu ed, Routine [facility] vitamin B-12 (CYANOCOBAL DAVIS) tablet 1,000 mcg 12-21 17:00: 00 Yes 1000ug 1,000 mcg, Oral, DAILY, First dose on 12/22/23 at 1200, Until Discontinu ed, Routine [facility] thiamine (VITAMIN B1) 100 mg in NaCl 0.9% (NS) piggyback 12-21 17:00: 00 12-24 01:35 :00 No 100mg IV Piggyback, TID, 9 doses, First dose on 12/22/23 at 1200, Last dose on 12/24/23 at 2000, 50 mL [facility] oxazepam (SERAX) capsule 15 mg 12-21 16:53: 55 Yes 15mg 15 mg, Oral, Q4HPRN, Starting on 12/22/23 at 1153, Until Discontinu ed, Routine, Only while awake for DBP equal to or greater than 100, HR equal to or greater than 100. [facility] cefTRIAXone (ROCEPHIN) 1,000 mg in NaCl 0.9% (NS) 100 mL MINI-BAG 12-21 06:00: 00 12-24 22:22 :05 No 1000mg 1,000 mg, IV Piggyback, Q24H ABX, 5 doses, First dose on Sun12/22/23 at 0100, Last dose on Sun12/26/23 at 0100, Administer over 30 Minutes, 100 mL, Reason for Anti-Infec tive: Empiric Non-Surgic al Prophylaxi s, Duration of therapy: 72 hours [facility] sodium chloride 0.9 % irrigation solution 3,000 mL 12-21 02:51: 05 Yes 3000mL 3,000 mL, Irrigation , PRN, Starting on Sun12/21/23 at 2151, Until Discontinu ed, 3,000 mL [facility] NaCl 0.9% (NS) IV infusion 1,000 mL 12-21 02:15: 00 12-24 22:17 :39 No 1000mL at 42 mL/hr, IV Infusion, CONTINUOUS , Starting on Sun12/21/23 at 2115, Until Sun12/25/23 at 1717, Routine [facility] sodium ferric gluconate (FERRLECIT) 125 mg in NaCl 0.9% (NS) 100 mL IV piggyback 12-20 16:00: 00 12-22 13:59 :00 No 125mg 125 mg, IV Piggyback, DAILY, 2 doses, First dose (after last reorder) on Sun12/21/23 at 1100, Last dose on Sun12/22/23 at 0900, Administer over 60 Minutes, 100 mL [facility] acetaminoph en (TYLENOL) tablet 650 mg 12-20 13:00: 00 12-20 13:52 :00 No 650mg 650 mg, Oral, ONCE, 1 dose, On Sun12/21/23 at 0800, Routine [facility] levothyroxi ne (SYNTHROID) tablet 100 mcg 12-20 11:00: 00 12-21 16:53 :37 No 100ug 100 mcg, Oral, QAM-0600, First dose on Sun12/21/23 at 0600, Until Discontinu ed, Routine [facility] atorvastati n (LIPITOR) tablet 40 mg 12-20 02:00: 00 Yes 40mg 40 mg, Oral, QHS, First dose on Sun12/20/23 at 2100, Until Discontinu ed, Routine [facility] sodium ferric gluconate (FERRLECIT) 125 mg in NaCl 0.9% (NS) 100 mL IV piggyback 12-20 00:00: 00 12-20 06:50 :00 No 125mg 125 mg, IV Piggyback, ONCE, 1 dose, On Sun12/20/23 at 1900, Administer over 60 Minutes, 100 mL [facility] KCL (KLOR-CON M20) tablet 40 mEq 12-19 19:15: 00 12-19 19:33 :00 No 40meq 40 mEq, Oral, ONCE, 1 dose, On Sun12/20/23 at 1415, Routine [facility] ondansetron (ZOFRAN (PF)) injection 4 mg 12-19 18:25: 49 Yes 4mg [facility] acetaminoph en (TYLENOL) tablet 650 mg 12-19 18:25: 32 Yes 650mg 650 mg, Oral, Q6HPRN, Starting on Sun12/20/23 at 1325, Until Discontinu ed, Routine, Pain (scale 1-3), Temp > 38 C [facility] iopamidol (ISOVUE 370-500 mL) injection 80 mL 12-19 17:00: 00 12-19 17:00 :00 No [id number] 80mL 80 mL, Intravenou s, ONCE, 1 dose, On Sun12/20/23 at 1200, Routine [facility] atorvastati n 40 mg tablet 12-19 16:26: 37 12-19 00:00 :00 No 40mg Take 1 tablet by mouth at bedtime. [facility] lisinopriL- hydrochloro thiazide 20-25 mg per tablet 12-19 16:26: 35 03-14 00:00 :00 No 1{tbl} Take 1 tablet by mouth in the morning. [facility] ondansetron (ZOFRAN (PF)) injection 4 mg 12-19 15:00: 00 12-19 14:23 :00 No 4mg 4 mg, Slow IV Push, ONCE, 1 dose, On Tanisha 12/20/23 at 1000, NURIA [facility] NaCl 0.9% (NS) bolus infusion 1,000 mL 12-19 14:45: 00 12-19 15:14 :00 No 1000mL at 999 mL/hr, 1,000 mL, IV Infusion, ONCE, 1 dose, On Tanisha 12/20/23 at 0945, STAT [facility] TAKE 1 TABLET BY MOUTH ONCE DAILY [...] Take 1 tablet by mouth at bedtime. [facility] lisinopriL- hydrochloro thiazide 20-25 mg per tablet 02-02 10:53: 26 Yes 1{tbl} Take 1 tablet by mouth in the morning. [facility] lisinopriL- hydrochloro thiazide 20-25 mg per tablet 01-23 19:40: 32 Yes 1{tbl} Take 1 tablet by mouth in the morning. [facility] atorvastati n 40 mg tablet 01-23 19:40: 32 Yes 40mg Take 1 tablet by mouth at bedtime. [facility] midazolam (VERSED) injection 01-23 14:43: 00 01-23 15:10 :29 No IV Push, ONCE INTRA PROCEDURE, Starting on Sun01/23/23 at 0943, Until Sun01/23/23 at 1010, Routine, Intra-op [facility] FENTanyl PF (SUBLIMAZE (PF)) injection 01-23 14:40: 00 01-23 15:10 :29 No Epidural, ONCE INTRA PROCEDURE, Starting on Sun01/23/23 at 0940, Until Sun01/23/23 at 1010, Routine, Intra-op [facility] lidocaine 1% (XYLOCAINE) 100 mg/10 mL (1 %) injection 01-23 14:34: 00 01-23 15:10 :29 No Slow IV Push, ONCE INTRA PROCEDURE, Starting on Sun01/23/23 at 0934, Until Sun01/23/23 at 1010, Routine, Intra-op [facility] propofoL IV infusion 01-23 14:34: 00 01-23 15:10 :29 No IV Infusion, ONCE INTRA PROCEDURE, Starting on Sun01/23/23 at 0934, Until Sun01/23/23 at 1010, Routine, Intra-op [facility] simethicone (GAS RELIEF (SIMETHICON E)) 40 mg/0.6 mL drops 01-23 14:33: 00 01-23 15:10 :00 No PRN, Starting on Sun01/23/23 at 0933, Until Sun01/23/23 at 1010, Routine, Intra-op [facility] lactated ringers IV infusion 01-23 14:26: 00 01-23 15:10 :29 No IV Infusion, CONTINUOUS PRN, Starting on Sun01/23/23 at 0926, Until Sun01/23/23 at 1010, Routine, Intra-op [facility] lactated ringers IV infusion 1,000 mL 01-23 13:45: 00 01-23 13:46 :00 No 1000mL at 42 mL/hr, 1,000 mL, IV Infusion, ONCE, 1 dose, On Sun01/23/23 at 0845, Routine, DSU Pre-op [facility] GAVILYTE-G 236 GM SOLR 01-19 00:00: 00 Yes Jonatan Eason peg-electro lyte soln 236-22.74-6 .74 -5.86 gram solution 01-19 00:00: 00 01-23 00:00 :00 No [id number] Take as directed before colonoscop y [facility] lisinopriL- hydrochloro thiazide 20-25 mg per tablet 11-23 15:29: 39 Yes 1{tbl} Take 1 tablet by mouth in the morning. [facility] atorvastati n 40 mg tablet 11-23 15:29: 39 Yes 40mg Take 1 tablet by mouth at bedtime. [facility] levothyroxi ne (SYNTHROID) 100 mcg tablet 11-23 15:29: 38 11-23 00:00 :00 No 100ug Take 1 tablet by mouth every morning. [facility] enoxaparin (LOVENOX) injection 40 mg 11-23 14:00: 00 Yes 40mg 40 mg, Subcutaneo us, DAILY, First dose on Sun11/23/22 at 0900, Until Discontinu ed, Routine [facility] pantoprazol e (PROTONIX) EC tablet 40 mg 11-23 13:15: 00 Yes 40mg 40 mg, Oral, Q12H, First dose on Sun11/23/22 at 0815, Until Discontinu ed, Routine [facility] KCL (KLOR-CON M20) tablet 40 mEq 11-23 13:10: 00 11-23 17:24 :00 No 40meq 40 mEq, Oral, ONCE, 1 dose, On Sun11/23/22 at 0815, Routine [facility] atorvastati n (LIPITOR) tablet 40 mg 11-23 02:00: 00 Yes 40mg 40 mg, Oral, QHS, First dose on Sun11/22/22 at 2100, Until Discontinu ed, Routine [facility] lisinopriL (PRINIVIL,Z ESTRIL) tablet 20 mg 11-23 00:15: 00 Yes 20mg 20 mg, Oral, DAILY, First dose (after last modificati on) on Sun11/22/22 at 1915, Until Discontinu ed, Routine [facility] NaCl 0.9% (NS) IV infusion 1,000 mL 11-22 21:15: 00 11-23 14:17 :05 No 1000mL at 50 mL/hr, IV Infusion, CONTINUOUS , Starting on Sun11/22/22 at 1615, Until Sun11/23/22 at 0917, Routine [facility] diatrizoate maria esther-diatriz oat sod (GASTROGRAF IN) 66-10 % oral solution 120 mL 11-22 20:00: 00 11-22 20:00 :00 No [id number] 120mL 120 mL, Oral, ONCE, 1 dose, On Sun11/22/22 at 1500, Routine [facility] pantoprazol e (PROTONIX) injection 40 mg 11-22 13:00: 00 11-23 13:12 :51 No 40mg 40 mg, Slow IV Push, Q12H, First dose on Sun11/22/22 at 0800, Until Discontinu ed [facility] levothyroxi ne (SYNTHROID) tablet 125 mcg 11-22 11:00: 00 Yes 125ug 125 mcg, Oral, QAM-0600, First dose on Sun11/22/22 at 0600, Until Discontinu ed, Routine [facility] levothyroxi [facility] (SYNTHROID) tablet 100 mcg 11-22 11:00: 00 11-23 00:12 :02 No 100ug 100 mcg, Oral, QAM-0600, First dose on Sun11/22/22 at 0600, Until Discontinu ed, Routine [facility] piperacilli n-tazobacta m (ZOSYN) 3.375 g in [...] Abdominal< br>Duratio n of Therapy: 7 days [facility] NaCl 0.9% (NS) IV infusion 1,000 mL 11-22 01:30: 00 11-22 21:09 :34 No 1000mL at 125 mL/hr, IV Infusion, CONTINUOUS , Starting on Sun11/21/22 at 2030, Until Sun11/22/22 at 1609, Routine [facility] ondansetron (ZOFRAN (PF)) injection 4 mg 11-22 01:18: 18 Yes 4mg 4 mg, Slow IV Push, Q6HPRN, Starting on Sun11/21/22 at 2018, Until Discontinu ed, Routine, Nausea and Vomiting (N/V) [facility] iopamidol (ISOVUE 370-500 mL) injection 65 mL 11-21 23:15: 00 11-21 23:15 :00 No [id number] 65mL 65 mL, Intravenou s, ONCE, 1 dose, On Sun11/21/22 at 1815, Routine [facility] proMETHazin e (PHENERGAN) 25 mg in NaCl 0.9% (NS) 50 mL IV piggyback 11-21 20:15: 00 11-21 20:21 :00 No 25mg 25 mg, IV Piggyback, ONCE, 1 dose, On Sun11/21/22 at 1515, NURIA [facility] NaCl 0.9% (NS) bolus infusion 1,000 mL 11-21 20:00: 00 11-21 20:20 :00 No 1000mL at 999 mL/hr, 1,000 mL, IV Infusion, ONCE, 1 dose, On Sun11/21/22 at 1500, STAT [facility] ondansetron (ZOFRAN (PF)) injection 4 mg 11-21 19:00: 00 11-21 19:09 :00 No 4mg 4 mg, Slow IV Push, ONCE, 1 dose, On Sun11/21/22 at 1400, NURIA [facility] CIPROFLOXAC IN HCL 500 MG TABS 11-03 00:00: 00 Yes Jonatan Eason estradioL (ESTRACE) 0.01 % (0.1 mg/gram) vaginal cream 11-03 00:00: 00 02-02 00:00 :00 No [id number] Apply 1g vaginally at bedtime every night for 2 weeks and then apply 1g vaginally at bedtime 2 times per week [facility] ciprofloxac in HCl (CIPRO) 500 mg tablet 11-03 00:00: 00 11-11 04:59 :00 No 500mg Take 1 tablet by mouth every 12 (twelve) hours for 7 days. [facility] sulfamethox azole-trime thoprim 800-160 mg per tablet 11-03 00:00: 00 11-03 00:00 :00 No [id number] 1{tbl} Take 1 tablet by mouth in the morning and 1 tablet in the evening. Do all this for 3 days. [facility] sulfamethox azole-trime thoprim 800-160 mg per tablet 10-31 00:00: 00 11-03 00:00 :00 No [id number] 1{tbl} Take 1 tablet by mouth in the morning and 1 tablet in the evening. Do all this for 3 days. [facility] peg-electro lyte soln 236-22.74-6 .74 -5.86 gram solution 6-09 00:00: 00 10-21 04:59 :00 No [id number] 8000mL Take 8,000 mL by mouth once now for 1 dose. [facility] LEVOTHYROXI NE SODIUM 100 MCG TABS 5-04 00:00: 00 07-09 00:00 :00 No Jonatan Eason lisinopriL- hydrochloro thiazide 20-25 mg per tablet 07-13 08:41: 40 Yes 1{tbl} Take 1 tablet by mouth in the morning. [facility] atorvastati n 40 mg tablet 07-13 08:41: 40 Yes 40mg Take 1 tablet by mouth at bedtime. [facility] AMLODIPINE BESYLATE 5 MG TABS 06-02 00:00: 00 Yes Jonatan Eason TAKE 1 TABLET DAILY. 05-25 00:00: 00 07-09 00:00 :00 No 100 Jonatan Eason TAKE 1 TABLET DAILY. 05-22 00:00: 00 07-09 00:00 :00 No 40 Jonatan Eason TAKE 1 TABLET BY MOUTH ONCE DAILY 05-22 00:00: 00 07-09 00:00 :00 No Jonatan Eason HYDROCORTIS ONE 100 MG/60ML ENEM 2021-05 00:00: 00 Yes Jonatan Eason hydrocortis one 100 mg/60 mL enema 2021-05 00:00: 00 Yes [id number] 4102 100mg Insert 1 Enema into rectum at bedtime. [facility] TAKE 1 CAPSULE BY MOUTH THREE TIMES [...] 2021-05 00:00: 00 No Dose Unknown 2021-05 2 00:00: 00 No INSTILL 1 DROP EVERY [...] MOUTH ONCE DAILY 2021-05 00:00: 00 Yes Jonatanjake Eason Dose Unknown 2021-05 00:00: 00 Yes [...] 0748, Until Sun04/21/22 at 0838, Routine, Intra-op [facility] simethicone (GAS RELIEF (SIMETHICON E)) 40 mg/0.6 mL drops 2021-05 13:48: 00 04-21 14:38 :32 No PRN, Starting on Sun04/21/22 at 0748, Until Sun04/21/22 at 0838, Routine, Intra-op [facility] lactated ringers IV infusion 1,000 mL 2021-05 13:15: 00 04-21 13:28 :00 No 1000mL at 42 mL/hr, 1,000 mL, IV Infusion, ONCE, 1 dose, On Sun04/21/22 at 0715, Routine, DSU Pre-op [facility] lisinopriL- hydrochloro thiazide 20-25 mg per tablet 2021-05 09:23: 32 Yes 1{tbl} Take 1 tablet by mouth in the morning. [facility] atorvastati n 40 mg tablet 2021-05 09:23: 32 Yes 40mg Take 40 mg by mouth at bedtime. [facility] INSTILL 1 DROP INTO BOTH EYES EVERY [...] 1 tablet by mouth in the morning. [facility] atorvastati n 40 mg tablet 2021-05 14:57: 17 Yes 40mg Take 40 mg by mouth at bedtime. [facility] TAKE 1 TABLET BY MOUTH ONCE DAILY [...] ONCE DAILY 01-23 00:00: 00 Yes Jonatan Eason Dose Unknown 8-15 00:00: 00 No Dose [...] 06-02 00:00: 00 Yes 1mcg Jonatan Eason docusate sodium 250 mg capsule 2020-05 00:00: 00 Yes [id number] 250mg Take 1 capsule by mouth daily. [facility] ferrous sulfate (IRON, FERROUS SULFATE,) 325 mg (65 mg iron) tablet 2020-05 00:00: 00 03-14 00:00 :00 No [id number] 325mg Take 1 tablet by mouth every other day. [facility] levothyroxi ne 100 mcg tablet 2020-05 00:00: [...] ne 100 mcg tablet 2020-05 00:00: 00 Yes 1mcg Jonatan F Landy Dose Unknown 12-21 00:00: 00 No Dose [...] tablet 09-09 00:00: 00 Yes 1mg Jonatan Elisabeth Landy ferrous sulfate 325 mg (65 mg iron) [...] 2019-05 00:00: 00 Yes 1mg Jonatan Barber Landy ferrous sulfate 325 mg (65 mg iron) tablet 2019-05 00:00: 00 Yes 1(65 mg iron) Jonatan Barber Landy lisinopril 20 mg-hydrochl orothiazide 25 mg tablet [...] 1 % ointment 2019-05 00:00: 00 Yes [id number] Apply to area(s) 3 (three) times daily as needed for Pain. [facility] levothyroxi ne 125 mcg tablet 2019-05 00:00: [...] 2019-05 00:00: 00 Yes 1mg Jonatan Eason levothyroxi ne 125 mcg tablet 11-18 00:00: 00 No 1mcg levothyroxi ne 125 mcg tablet 11-18 00:00: 00 Yes 1mcg Jonatan Eason levothyroxi ne 125 mcg tablet 11-18 00:00: 00 No 1mcg levothyroxi ne 125 mcg tablet 11-18 00:00: 00 No 1mcg levothyroxi ne 125 mcg tablet 11-18 00:00: 00 No 1mcg levothyroxi ne 125 mcg tablet 11-18 00:00: 00 No 1mcg levothyroxi ne 125 mcg tablet 11-18 00:00: 00 No 1mcg levothyroxi ne 125 mcg tablet 11-06 00:00: 00 Yes 1mcg Jonatan Eason levothyroxi ne 125 mcg tablet 11-06 00:00: 00 No 1mcg levothyroxi ne 125 mcg tablet 0 11-06 00:00: 00 No 1mcg levothyroxi ne 125 mcg tablet 11-06 00:00: 00 No 1mcg levothyroxi ne 125 mcg tablet 11-06 00:00: 00 No 1mcg levothyroxi ne 125 mcg tablet 11-06 00:00: 00 No 1mcg levothyroxi ne 125 mcg tablet 11-06 00:00: 00 No 1mcg levothyroxi ne 112 mcg tablet 11-04 00:00: 00 Yes 1mcg Jonatan Eason levothyroxi ne 112 mcg tablet 11-04 00:00: [...] tablet 2018-05 00:00: 00 Yes 1mcg Jonatan Eason levothyroxi ne 112 mcg tablet 2018-05 [...] tablet 2018-05 00:00: 00 Yes 1mcg Jonatan Eason levothyroxi ne 112 mcg tablet 2018-05 [...] Jonatan Eason levothyroxi ne 112 mcg tablet 12-03 00:00: [...] tablet 07-20 00:00: 00 Yes 1mcg Jonatan Eason levothyroxi [...] tablet 06-14 00:00: 00 Yes 1mcg Jonatan Eason levothyroxi ne 112 mcg tablet 06-14 00:00: 00 No 1mcg levothyroxi ne 112 mcg tablet 06-14 00:00: 00 No 1mcg levothyroxi ne 112 mcg tablet 06-14 00:00: 00 No 1mcg levothyroxi ne 112 mcg tablet 06-14 00:00: 00 No 1mcg levothyroxi ne 112 mcg tablet 06-14 00:00: 00 No 1mcg levothyroxi ne 112 mcg tablet 06-14 00:00: 00 No 1mcg levothyroxi ne 100 mcg tablet 06-01 00:00: 00 Yes 1mcg Jonatan Eason levothyroxi ne 100 mcg tablet 06-01 00:00: 00 No 1mcg levothyroxi ne 100 mcg tablet 06-01 00:00: 00 No 1mcg levothyroxi ne 100 mcg tablet 06-01 00:00: 00 No 1mcg levothyroxi ne 100 mcg tablet 06-01 00:00: 00 No 1mcg levothyroxi ne 100 mcg tablet 06-01 00:00: 00 No 1mcg levothyroxi ne 100 mcg tablet 06-01 00:00: 00 No 1mcg lovastatin 20 mg tablet 05-29 00:00: 00 Yes 1mg Jonatan Barber Landy levothyroxi ne 100 mcg tablet 05-29 00:00: 00 Yes 1mcg Jonatanjake Eason lovastatin 20 mg tablet 05-29 00:00: 00 [...] 11-02 00:00: 00 Yes 1mcg Jonatan Eason lovastatin [...] mcg tablet 11-02 00:00: 00 No 1mcg levothyroxi ne (SYNTHROID) 125 mcg tablet 2015-05 00:00: 00 03-14 00:00 :00 No TAKE 1 TABLET BY MOUTH EVERY MORNING [facility] Immunizations Ordered Immunization Name Filled Immunization Name Date Status Comments Source SHINGRIX VACCINE SHINGRIX VACCINE 2023-02-28 00:00:00 Salvador Eason Influenza, injectable, [place] Canine Kidney, preservative-free, quadrivalent Influenza, injectable, [place] Canine Kidney, preservative-free, quadrivalent 2022-02-13 00:00:00 Salvador Eason Influenza, injectable, Mad[place] Canine Kidney, preservative-free, quadrivalent 2022-02-13 00:00:00 Completed Influenza, injectable, [place] Canine Kidney, preservative-free, quadrivalent 2022-02-13 00:00:00 Completed Influenza, injectable, [place] Canine Kidney, preservative-free, quadrivalent 2022-02-13 00:00:00 Completed Influenza, injectable, [place] Canine Kidney, preservative-free, quadrivalent 2022-02-13 00:00:00 Completed SHINGRIX VACCINE SHINGRIX VACCINE 2021-02-28 00:00:00 Completed Jonatan Eason Pneumococcal conjugate P Pneumococcal conjugate P 2021-02-28 00:00:00 Completed Jonatan Eason SHINGRIX VACCINE 2021-02-28 [...] Completed Pneumococcal conjugate P 2021-02-28 00:00:00 Completed SARS-COV-2 COVID-19 PFIZER VACCINE 2020-08-31 00:00:00 Completed [facility] SARS-COV-2 COVID-19 PFIZER VACCINE 2020-08-31 00:00:00 Completed [facility] SARS-COV-2 COVID-19 PFIZER VACCINE 2020-08-31 00:00:00 Completed [facility] SARS-COV-2 COVID-19 PFIZER VACCINE 2020-08-31 00:00:00 Completed [facility] SARS-COV-2 COVID-19 PFIZER VACCINE 2020-08-31 00:00:00 Completed [facility] SARS-COV-2 COVID-19 PFIZER VACCINE 2020-08-31 00:00:00 Completed [facility] SARS-COV-2 COVID-19 PFIZER VACCINE 2020-08-31 00:00:00 Completed [facility] SARS-COV-2 COVID-19 PFIZER VACCINE 2020-08-31 00:00:00 Completed [facility] SARS-COV-2 COVID-19 PFIZER VACCINE 2020-08-31 00:00:00 Completed [facility] SARS-COV-2 COVID-19 PFIZER VACCINE 2020-08-31 00:00:00 Completed [facility] SARS-COV-2 COVID-19 PFIZER VACCINE 2020-08-31 00:00:00 Completed [facility] SARS-COV-2 COVID-19 PFIZER VACCINE 2020-08-31 00:00:00 Completed [facility] SARS-COV-2 COVID-19 PFIZER VACCINE 2020-08-31 00:00:00 Completed [facility] SARS-COV-2 COVID-19 PFIZER VACCINE 2020-08-31 00:00:00 Completed [facility] SARS-COV-2 COVID-19 PFIZER VACCINE 2020-08-31 00:00:00 Completed [facility] SARS-COV-2 COVID-19 PFIZER VACCINE 2020-08-31 00:00:00 Completed [facility] SARS-COV-2 COVID-19 PFIZER VACCINE 2020-08-31 00:00:00 Completed [facility] SARS-COV-2 COVID-19 PFIZER VACCINE 2020-08-31 00:00:00 Completed [facility] SARS-COV-2 COVID-19 PFIZER VACCINE 2020-08-31 00:00:00 Completed [facility] SARS-COV-2 COVID-19 PFIZER VACCINE 2020-08-31 00:00:00 Completed [facility] SARS-COV-2 COVID-19 PFIZER VACCINE 2020-08-31 00:00:00 Completed [facility] SARS-COV-2 COVID-19 PFIZER VACCINE 2020-08-31 00:00:00 Completed [facility] SARS-COV-2 COVID-19 PFIZER VACCINE 2020-08-31 00:00:00 Completed [facility] SARS-COV-2 COVID-19 PFIZER VACCINE 2020-08-31 00:00:00 Completed [facility] SARS-COV-2 COVID-19 PFIZER VACCINE 2020-08-31 00:00:00 Completed [facility] SARS-COV-2 COVID-19 PFIZER VACCINE 2020-08-31 00:00:00 Completed [facility] SARS-COV-2 COVID-19 PFIZER VACCINE 2020-08-31 00:00:00 Completed [facility] SARS-COV-2 COVID-19 PFIZER VACCINE 2020-08-31 00:00:00 Completed [facility] SARS-COV-2 COVID-19 PFIZER VACCINE 2020-08-31 00:00:00 Completed [facility] SARS-COV-2 COVID-19 PFIZER VACCINE 2020-08-31 00:00:00 Completed [facility] SARS-COV-2 COVID-19 PFIZER VACCINE 2020-08-31 00:00:00 Completed [facility] SARS-COV-2 COVID-19 PFIZER VACCINE 2020-08-31 00:00:00 Completed [facility] SARS-COV-2 COVID-19 PFIZER VACCINE 2020-08-10 00:00:00 Completed [facility] SARS-COV-2 COVID-19 PFIZER VACCINE 2020-08-10 00:00:00 Completed [facility] SARS-COV-2 COVID-19 PFIZER VACCINE 2020-08-10 00:00:00 Completed [facility] SARS-COV-2 COVID-19 PFIZER VACCINE 2020-08-10 00:00:00 Completed [facility] SARS-COV-2 COVID-19 PFIZER VACCINE 2020-08-10 00:00:00 Completed [facility] SARS-COV-2 COVID-19 PFIZER VACCINE 2020-08-10 00:00:00 Completed [facility] SARS-COV-2 COVID-19 PFIZER VACCINE 2020-08-10 00:00:00 Completed [facility] SARS-COV-2 COVID-19 PFIZER VACCINE 2020-08-10 00:00:00 Completed [facility] SARS-COV-2 COVID-19 PFIZER VACCINE 2020-08-10 00:00:00 Completed [facility] SARS-COV-2 COVID-19 PFIZER VACCINE 2020-08-10 00:00:00 Completed [facility] SARS-COV-2 COVID-19 PFIZER VACCINE 2020-08-10 00:00:00 Completed [facility] SARS-COV-2 COVID-19 PFIZER VACCINE 2020-08-10 00:00:00 Completed [facility] SARS-COV-2 COVID-19 PFIZER VACCINE 2020-08-10 00:00:00 Completed [facility] SARS-COV-2 COVID-19 PFIZER VACCINE 2020-08-10 00:00:00 Completed [facility] SARS-COV-2 COVID-19 PFIZER VACCINE 2020-08-10 00:00:00 Completed [facility] SARS-COV-2 COVID-19 PFIZER VACCINE 2020-08-10 00:00:00 Completed [facility] SARS-COV-2 COVID-19 PFIZER VACCINE 2020-08-10 00:00:00 Completed [facility] SARS-COV-2 COVID-19 PFIZER VACCINE 2020-08-10 00:00:00 Completed [facility] SARS-COV-2 COVID-19 PFIZER VACCINE 2020-08-10 00:00:00 Completed [facility] SARS-COV-2 COVID-19 PFIZER VACCINE 2020-08-10 00:00:00 Completed [facility] SARS-COV-2 COVID-19 PFIZER VACCINE 2020-08-10 00:00:00 Completed [facility] SARS-COV-2 COVID-19 PFIZER VACCINE 2020-08-10 00:00:00 Completed [facility] SARS-COV-2 COVID-19 PFIZER VACCINE 2020-08-10 00:00:00 Completed [facility] SARS-COV-2 COVID-19 PFIZER VACCINE 2020-08-10 00:00:00 Completed [facility] SARS-COV-2 COVID-19 PFIZER VACCINE 2020-08-10 00:00:00 Completed [facility] SARS-COV-2 COVID-19 PFIZER VACCINE 2020-08-10 00:00:00 Completed [facility] SARS-COV-2 COVID-19 PFIZER VACCINE 2020-08-10 00:00:00 Completed [facility] SARS-COV-2 COVID-19 PFIZER VACCINE 2020-08-10 00:00:00 Completed [facility] SARS-COV-2 COVID-19 PFIZER VACCINE 2020-08-10 00:00:00 Completed [facility] SARS-COV-2 COVID-19 PFIZER VACCINE 2020-08-10 00:00:00 Completed [facility] SARS-COV-2 COVID-19 PFIZER VACCINE 2020-08-10 00:00:00 Completed [facility] SARS-COV-2 COVID-19 PFIZER VACCINE 2020-08-10 00:00:00 Completed [facility] Influenza, seasonal, inj Influenza, seasonal, inj 2020-03-22 00:00:00 Completed Jonatan Eason Influenza, seasonal, inj 2020-03-22 00:00:00 Completed Influenza, seasonal, inj 2020-03-22 00:00:00 Completed Influenza, seasonal, inj 2020-03-22 00:00:00 Completed Influenza, seasonal, inj 2020-03-22 00:00:00 Completed Influenza, seasonal, inj 2020-03-22 00:00:00 Completed Influenza, seasonal, inj 2020-03-22 00:00:00 Completed Influenza, seasonal, inj 2020-03-22 00:00:00 Completed Hep A, adult Hep A, adult 2019-06-11 00:00:00 Completed Jonatan Eason Hep B, adult Hep B, adult 2019-06-11 00:00:00 Completed Jonatan Eason Hep A, adult [...] Hep B, adult 2019-06-11 00:00:00 Completed Hep B, adult Hep B, adult 2019-01-08 00:00:00 Completed Jonatan Eason zoster zoster 2019-01-08 00:00:00 Completed Jonatan Eason Hep B, adult [...] 00:00:00 Completed zoster 2019-01-08 00:00:00 Completed Hep A, adult Hep A, adult 2018-12-02 00:00:00 Completed Jonatan Eason Hep B, adult Hep B, adult 2018-12-02 00:00:00 Completed Jonatan Eason Hep A, adult [...] Completed Hep B, adult 2018-12-02 00:00:00 Completed Tdap Tdap 2017-11-21 00:00:00 Completed Jonatan Eason Tdap 2017-11-21 00:00:00 Completed Tdap 2017-11-21 00:00:00 Completed Tdap 2017-11-21 00:00:00 Completed Tdap 2017-11-21 00:00:00 Completed Tdap 2017-11-21 00:00:00 Completed Tdap 2017-11-21 00:00:00 Completed Tdap 2017-11-21 00:00:00 Completed TDAP 2014-09-16 00:00:00 Completed [facility] TDAP 2014-09-16 00:00:00 Completed [facility] TDAP 2014-09-16 00:00:00 Completed [facility] TDAP 2014-09-16 00:00:00 Completed [facility] TDAP 2014-09-16 00:00:00 Completed [facility] TDAP 2014-09-16 00:00:00 Completed [facility] TDAP 2014-09-16 00:00:00 Completed [facility] TDAP 2014-09-16 00:00:00 Completed [facility] TDAP 2014-09-16 00:00:00 Completed [facility] TDAP 2014-09-16 00:00:00 Completed [facility] TDAP 2014-09-16 00:00:00 Completed [facility] TDAP 2014-09-16 00:00:00 Completed [facility] TDAP 2014-09-16 00:00:00 Completed [facility] TDAP 2014-09-16 00:00:00 Completed [facility] TDAP 2014-09-16 00:00:00 Completed [facility] TDAP 2014-09-16 00:00:00 Completed [facility] TDAP 2014-09-16 00:00:00 Completed [facility] TDAP 2014-09-16 00:00:00 Completed [facility] TDAP 2014-09-16 00:00:00 Completed [facility] TDAP 2014-09-16 00:00:00 Completed [facility] TDAP 2014-09-16 00:00:00 Completed [facility] TDAP 2014-09-16 00:00:00 Completed [facility] TDAP 2014-09-16 00:00:00 Completed [facility] TDAP 2014-09-16 00:00:00 Completed [facility] TDAP 2014-09-16 00:00:00 Completed [facility] TDAP 2014-09-16 00:00:00 Completed [facility] TDAP 2014-09-16 00:00:00 Completed [facility] TDAP 2014-09-16 00:00:00 Completed [facility] TDAP 2014-09-16 00:00:00 Completed [facility] TDAP 2014-09-16 00:00:00 Completed [facility] TDAP 2014-09-16 00:00:00 Completed [facility] TDAP 2014-09-16 00:00:00 Completed [facility] TDAP Unknown Completed [facility] SARS-COV-2 COVID-19 PFIZER VACCINE Unknown Completed [facility] TDAP Unknown Completed [facility] SARS-COV-2 COVID-19 PFIZER VACCINE Unknown Completed [facility] TDAP Unknown Completed [facility] SARS-COV-2 COVID-19 PFIZER VACCINE Unknown Completed [facility] TDAP Unknown Completed [facility] SARS-COV-2 COVID-19 PFIZER VACCINE Unknown Completed [facility] TDAP Unknown Completed [facility] SARS-COV-2 COVID-19 PFIZER VACCINE Unknown Completed [facility] TDAP Unknown Completed [facility] SARS-COV-2 COVID-19 PFIZER VACCINE Unknown Completed [facility] TDAP Unknown Completed [facility] SARS-COV-2 COVID-19 PFIZER VACCINE Unknown Completed [facility] TDAP Unknown Completed [facility] SARS-COV-2 COVID-19 PFIZER VACCINE Unknown Completed [facility] TDAP Unknown Completed [facility] SARS-COV-2 COVID-19 PFIZER VACCINE Unknown Completed [facility] TDAP Unknown Completed [facility] SARS-COV-2 COVID-19 PFIZER VACCINE Unknown Completed [facility] TDAP Unknown Completed [facility] SARS-COV-2 COVID-19 PFIZER VACCINE Unknown Completed [facility] TDAP Unknown Completed [facility] SARS-COV-2 COVID-19 PFIZER VACCINE Unknown Completed [facility] TDAP Unknown Completed [facility] SARS-COV-2 COVID-19 PFIZER VACCINE Unknown Completed [facility] TDAP Unknown Completed [facility] SARS-COV-2 COVID-19 PFIZER VACCINE Unknown Completed [facility] TDAP Unknown Completed [facility] SARS-COV-2 COVID-19 PFIZER VACCINE Unknown Completed [facility] TDAP Unknown Completed [facility] SARS-COV-2 COVID-19 PFIZER VACCINE Unknown Completed [facility] TDAP Unknown Completed [facility] SARS-COV-2 COVID-19 PFIZER VACCINE Unknown Completed [facility] TDAP Unknown Completed [facility] SARS-COV-2 COVID-19 PFIZER VACCINE Unknown Completed [facility] TDAP Unknown Completed [facility] SARS-COV-2 COVID-19 PFIZER VACCINE Unknown Completed [facility] TDAP Unknown Completed [facility] SARS-COV-2 COVID-19 PFIZER VACCINE Unknown Completed [facility] TDAP Unknown Completed [facility] SARS-COV-2 COVID-19 PFIZER VACCINE Unknown Completed [facility] TDAP Unknown Completed [facility] SARS-COV-2 COVID-19 PFIZER VACCINE Unknown Completed [facility] TDAP Unknown Completed [facility] SARS-COV-2 COVID-19 PFIZER VACCINE Unknown Completed [facility] TDAP Unknown Completed [facility] SARS-COV-2 COVID-19 PFIZER VACCINE Unknown Completed [facility] Vital Signs Vital Name Observation Time Observation Value Comments S ource Systolic blood pressure 2024-04-28 21:21:00 118 mm[Hg] [facility] Diastolic blood pressure 2024-04-28 21:21:00 46 mm[Hg] [facility] Heart rate 2024-04-28 21:21:00 78 /min [facility] Body temperature 2024-04-28 21:21:00 37.06 Jessica [facility] Respiratory rate 2024-04-28 21:21:00 18 /min [facility] Oxygen saturation in Arterial blood by Pulse oximetry 2024-04-28 21:21:00 96 /min [facility] Body height 2024-04-26 12:20:00 160 cm [facility] Body weight 2024-04-26 12:20:00 80.287 kg [facility] BMI 2024-04-26 12:20:00 31.35 kg/m2 [facility] Systolic blood pressure 2024-04-25 17:43:00 115 mm[Hg] [facility] Diastolic blood pressure 2024-04-25 17:43:00 41 mm[Hg] [facility] Heart rate 2024-04-25 17:43:00 82 /min [facility] Body temperature 2024-04-25 17:43:00 36.39 Jessica [facility] Body height 2024-04-25 17:43:00 160 cm [facility] Body weight 2024-04-25 17:43:00 78.926 kg [facility] BMI 2024-04-25 17:43:00 30.82 kg/m2 [facility] Diastolic blood pressure 2024-04-22 10:44:00 40 mm[Hg] [facility] Systolic blood pressure 2024-04-22 10:44:00 88 mm[Hg] [facility] Diastolic blood pressure 2024-04-22 10:44:00 40 mm[Hg] [facility] Systolic blood pressure 2024-04-22 10:44:00 88 mm[Hg] [facility] Systolic blood pressure 2024-04-10 01:19:00 140 mm[Hg] [facility] Diastolic blood pressure 2024-04-10 01:19:00 54 mm[Hg] [facility] Heart rate 2024-04-10 01:19:00 70 /min [facility] Body temperature 2024-04-10 01:19:00 36.67 Jessica [facility] Respiratory rate 2024-04-10 01:19:00 17 /min [facility] Oxygen saturation in Arterial blood by Pulse oximetry 2024-04-10 01:19:00 100 /min [facility] Body weight 2024-04-09 09:56:00 74.481 kg [facility] BMI 2024-04-09 09:56:00 30.03 kg/m2 [facility] Body height 2024-04-08 09:44:00 157.5 cm [facility] Systolic blood pressure 2024-03-14 12:28:00 127 mm[Hg] [facility] Diastolic blood pressure 2024-03-14 12:28:00 49 mm[Hg] [facility] Heart rate 2024-03-14 12:28:00 68 /min [facility] Body temperature 2024-03-14 12:28:00 37 Jessica [facility] Respiratory rate 2024-03-14 12:28:00 18 /min [facility] Oxygen saturation in Arterial blood by Pulse oximetry 2024-03-14 12:28:00 97 /min [facility] Body weight 2024-03-14 08:48:00 75.479 kg [facility] BMI 2024-03-14 08:48:00 30.43 kg/m2 [facility] Body height 2024-03-10 21:02:00 157.5 cm [facility] Systolic blood pressure 2024-02-05 16:22:00 111 mm[Hg] [facility] [facility] Diastolic blood pressure 2024-02-05 16:22:00 66 mm[Hg] [facility] Heart rate 2024-02-05 16:22:00 74 /min [facility] Body temperature 2024-02-05 16:22:00 36.72 Jessica [facility] Respiratory rate 2024-02-05 16:22:00 16 /min [facility] Oxygen saturation in Arterial blood by Pulse oximetry 2024-02-05 16:22:00 98 /min [facility] Body weight 2024-02-04 09:00:00 77.5 kg [facility] BMI 2024-02-04 09:00:00 30.27 kg/m2 [facility] Body height 2024-02-03 09:26:00 160 cm [facility] Systolic blood pressure 2024-02-04 16:34:00 142 mm[Hg] reported to RN [facility] Diastolic blood pressure 2024-02-04 16:34:00 62 mm[Hg] reported to RN [facility] Heart rate 2024-02-04 16:34:00 83 /min [facility] Body temperature 2024-02-04 16:34:00 36.72 Jessica [facility] Respiratory rate 2024-02-04 16:34:00 18 /min [facility] Oxygen saturation in Arterial blood by Pulse oximetry 2024-02-04 16:34:00 99 /min [facility] Body weight 2024-02-04 09:00:00 77.5 kg [facility] BMI 2024-02-04 09:00:00 30.27 kg/m2 [facility] Body height 2024-02-03 09:26:00 160 cm [facility] Systolic blood pressure 2024-01-25 15:44:00 139 mm[Hg] [facility] Diastolic blood pressure 2024-01-25 15:44:00 61 mm[Hg] [facility] Heart rate 2024-01-25 15:44:00 69 /min [facility] Body temperature 2024-01-25 15:44:00 36.72 Jessica [facility] Respiratory rate 2024-01-25 15:44:00 17 /min [facility] Body height 2024-01-25 15:44:00 160 cm [facility] Body weight 2024-01-25 15:44:00 80.74 kg [facility] BMI 2024-01-25 15:44:00 31.53 kg/m2 [facility] Oxygen saturation in Arterial blood by Pulse oximetry 2024-01-25 15:44:00 100 /min [facility] Systolic blood pressure 2024-01-05 00:04:00 137 mm[Hg] [facility] Diastolic blood pressure 2024-01-05 00:04:00 54 mm[Hg] [facility] Heart rate 2024-01-05 00:04:00 75 /min [facility] Body temperature 2024-01-05 00:04:00 37.33 Jessica [facility] Respiratory rate 2024-01-05 00:04:00 18 /min [facility] Oxygen saturation in Arterial blood by Pulse oximetry 2024-01-05 00:04:00 100 /min [facility] Body height 2024-01-03 15:38:00 157.5 cm [facility] Body weight 2024-01-03 15:38:00 78.019 kg [facility] BMI 2024-01-03 15:38:00 31.46 kg/m2 [facility] Systolic blood pressure 2023-12-27 15:20:00 115 mm[Hg] [facility] Diastolic blood pressure 2023-12-27 15:20:00 36 mm[Hg] [facility] Heart rate 2023-12-27 15:20:00 66 /min [facility] Body temperature 2023-12-27 15:20:00 36.5 Jessica [facility] Respiratory rate 2023-12-27 15:20:00 16 /min [facility] Oxygen saturation in Arterial blood by Pulse oximetry 2023-12-27 15:20:00 96 /min [facility] Body height 2023-12-27 14:24:00 157.5 cm [facility] Body weight 2023-12-27 14:24:00 78.019 kg [facility] BMI 2023-12-27 14:24:00 31.46 kg/m2 [facility] Systolic blood pressure 2023-12-22 16:14:00 136 mm[Hg] [facility] Diastolic blood pressure 2023-12-22 16:14:00 58 mm[Hg] [facility] Heart rate 2023-12-22 16:14:00 53 /min [facility] Body temperature 2023-12-22 16:14:00 35.78 Jessica [facility] Respiratory rate 2023-12-22 16:14:00 18 /min [facility] Oxygen saturation in Arterial blood by Pulse oximetry 2023-12-22 16:14:00 96 /min [facility] Body weight 2023-12-21 23:32:00 78.019 kg [facility] BMI 2023-12-21 23:32:00 31.46 kg/m2 [facility] Body height 2023-12-20 18:27:00 157.5 cm [facility] Systolic blood pressure 2023-03-29 19:04:00 130 mm[Hg] [facility] Diastolic blood pressure 2023-03-29 19:04:00 66 mm[Hg] [facility] Heart rate 2023-03-29 19:04:00 62 /min [facility] Body temperature 2023-03-29 19:04:00 36.72 Jessica [facility] Body height 2023-03-29 19:04:00 160 cm [facility] Body weight 2023-03-29 19:04:00 77.883 kg [facility] BMI 2023-03-29 19:04:00 30.42 kg/m2 [facility] Oxygen saturation in Arterial blood by Pulse oximetry 2023-03-29 19:04:00 97 /min [facility] Systolic blood pressure 2023-02-16 15:37:00 124 mm[Hg] [facility] Diastolic blood pressure 2023-02-16 15:37:00 52 mm[Hg] [facility] Heart rate 2023-02-16 15:37:00 61 /min [facility] Oxygen saturation in Arterial blood by Pulse oximetry 2023-02-16 15:37:00 99 /min [facility] Body temperature 2023-02-16 15:35:00 36.56 Jessica [facility] Respiratory rate 2023-02-16 15:35:00 18 /min [facility] Body height 2023-02-16 15:35:00 160 cm [facility] Body weight 2023-02-16 15:35:00 76.839 kg [facility] BMI 2023-02-16 15:35:00 30.01 kg/m2 [facility] Systolic blood pressure 2023-02-02 15:40:00 156 mm[Hg] [facility] Diastolic blood pressure 2023-02-02 15:40:00 68 mm[Hg] [facility] Heart rate 2023-02-02 15:40:00 63 /min [facility] Body temperature 2023-02-02 15:40:00 37.06 Jessica [facility] Respiratory rate 2023-02-02 15:40:00 18 /min [facility] Body height 2023-02-02 15:40:00 160 cm [facility] Body weight 2023-02-02 15:40:00 74.844 kg [facility] BMI 2023-02-02 15:40:00 29.23 kg/m2 [facility] Systolic blood pressure 2023-01-23 15:45:00 159 mm[Hg] [facility] Diastolic blood pressure 2023-01-23 15:45:00 65 mm[Hg] [facility] Heart rate 2023-01-23 15:45:00 53 /min [facility] Oxygen saturation in Arterial blood by Pulse oximetry 2023-01-23 15:45:00 99 /min [facility] Respiratory rate 2023-01-23 15:35:00 16 /min [facility] Body temperature 2023-01-23 15:18:00 36.11 Jessica [facility] Body height 2023-01-23 13:01:00 160 cm [facility] Body weight 2023-01-23 13:01:00 79.379 kg [facility] BMI 2023-01-23 13:01:00 31.00 kg/m2 [facility] Systolic blood pressure 2023-01-23 13:01:00 161 mm[Hg] [facility] Diastolic blood pressure 2023-01-23 13:01:00 67 mm[Hg] [facility] Heart rate 2023-01-23 13:01:00 65 /min [facility] Body temperature 2023-01-23 13:01:00 36.11 Jessica [facility] Respiratory rate 2023-01-23 13:01:00 16 /min [facility] Body height 2023-01-23 13:01:00 160 cm [facility] Body weight 2023-01-23 13:01:00 79.379 kg [facility] BMI 2023-01-23 13:01:00 31.00 kg/m2 [facility] Oxygen saturation in Arterial blood by Pulse oximetry 2023-01-23 13:01:00 98 /min [facility] Body temperature 2022-11-23 17:00:00 36.56 Jessica [facility] Systolic blood pressure 2022-11-23 09:00:00 120 mm[Hg] [facility] Diastolic blood pressure 2022-11-23 09:00:00 60 mm[Hg] [facility] Heart rate 2022-11-23 09:00:00 63 /min [facility] Respiratory rate 2022-11-23 09:00:00 20 /min [facility] Body weight 2022-11-23 09:00:00 80.468 kg [facility] BMI 2022-11-23 09:00:00 31.42 kg/m2 [facility] Oxygen saturation in Arterial blood by Pulse oximetry 2022-11-23 09:00:00 94 /min [facility] Body height 2022-11-22 03:12:00 160 cm [facility] Systolic blood pressure 2022-11-03 14:00:00 139 mm[Hg] [facility] Diastolic blood pressure 2022-11-03 14:00:00 63 mm[Hg] [facility] Heart rate 2022-11-03 14:00:00 63 /min [facility] Body temperature 2022-11-03 14:00:00 36.94 Jessica [facility] Respiratory rate 2022-11-03 14:00:00 18 /min [facility] Body height 2022-11-03 14:00:00 160 cm [facility] Body weight 2022-11-03 14:00:00 77.021 kg [facility] BMI 2022-11-03 14:00:00 30.08 kg/m2 [facility] Oxygen saturation in Arterial blood by Pulse oximetry 2022-11-03 14:00:00 96 /min [facility] Systolic blood pressure 2022-10-17 15:53:00 142 mm[Hg] [facility] Diastolic blood pressure 2022-10-17 15:53:00 81 mm[Hg] [facility] Heart rate 2022-10-17 15:53:00 57 /min [facility] Body temperature 2022-10-17 15:53:00 36.44 Jessica [facility] Respiratory rate 2022-10-17 15:53:00 18 /min [facility] Body height 2022-10-17 15:53:00 157.5 cm [facility] Body weight 2022-10-17 15:53:00 78.019 kg [facility] BMI 2022-10-17 15:53:00 31.46 kg/m2 [facility] Oxygen saturation in Arterial blood by Pulse oximetry 2022-10-17 15:53:00 98 /min [facility] Systolic blood pressure 2022-04-21 15:05:00 187 mm[Hg] [facility] Diastolic blood pressure 2022-04-21 15:05:00 84 mm[Hg] [facility] Heart rate 2022-04-21 15:05:00 50 /min [facility] Respiratory rate 2022-04-21 15:05:00 23 /min [facility] Oxygen saturation in Arterial blood by Pulse oximetry 2022-04-21 15:05:00 100 /min [facility] Body temperature 2022-04-21 14:38:00 36.56 Jessica [facility] Body weight 2022-04-18 21:00:00 79.379 kg [facility] BMI 2022-04-18 21:00:00 31.00 kg/m2 [facility] Systolic blood pressure 2022-04-21 13:08:00 161 mm[Hg] [facility] Diastolic blood pressure 2022-04-21 13:08:00 63 mm[Hg] [facility] Heart rate 2022-04-21 13:08:00 50 /min [facility] Body temperature 2022-04-21 13:08:00 36.89 Jessica [facility] Respiratory rate 2022-04-21 13:08:00 16 /min [facility] Oxygen saturation in Arterial blood by Pulse oximetry 2022-04-21 13:08:00 98 /min [facility] Body weight 2022-04-18 21:00:00 79.379 kg [facility] BMI 2022-04-18 21:00:00 31.00 kg/m2 [facility] Systolic blood pressure 2022-03-10 14:22:00 153 mm[Hg] [facility] Diastolic blood pressure 2022-03-10 14:22:00 78 mm[Hg] [facility] Heart rate 2022-03-10 14:17:00 60 /min [facility] Body temperature 2022-03-10 14:17:00 36.67 Jessica [facility] Respiratory rate 2022-03-10 14:17:00 18 /min [facility] Body height 2022-03-10 14:17:00 160 cm [facility] Body weight 2022-03-10 14:17:00 76.204 kg [facility] BMI 2022-03-10 14:17:00 29.76 kg/m2 [facility] Systolic blood pressure 2022-03-09 20:11:00 138 mm[Hg] [facility] Diastolic blood pressure 2022-03-09 20:11:00 67 mm[Hg] [facility] Heart rate 2022-03-09 20:03:00 74 /min [facility] Body temperature 2022-03-09 20:03:00 37.28 Jessica [facility] Respiratory rate 2022-03-09 20:03:00 18 /min [facility] Body height 2022-03-09 20:03:00 160 cm [facility] Body weight 2022-03-09 20:03:00 78.064 kg [facility] BMI 2022-03-09 20:03:00 30.49 kg/m2 [facility] Oxygen saturation in Arterial blood by Pulse oximetry 2022-03-09 20:03:00 96 /min [facility] Systolic blood pressure 2022-01-23 20:13:00 132 mm[Hg] [facility] Diastolic blood pressure 2022-01-23 20:13:00 107 mm[Hg] [facility] Heart rate 2022-01-23 20:13:00 75 /min [facility] Respiratory rate 2022-01-23 20:13:00 19 /min [facility] Oxygen saturation in Arterial blood by Pulse oximetry 2022-01-23 20:13:00 98 /min [facility] Body temperature 2022-01-23 20:10:00 37.06 Jessica [facility] Body height 2022-01-23 20:10:00 160 cm [facility] Body weight 2022-01-23 20:10:00 77.021 kg [facility] BMI 2022-01-23 20:10:00 30.08 kg/m2 [facility] BP Systolic 2024-06-02 15:59:00 121 mm[Hg] Jonatan F Landy BP Diastolic 2024-06-02 15:59:00 68 mm[Hg] Jonatan F Landy Weight Measured 2024-06-02 15:59:00 156.80 pounds Jonatan F Landy Height Measured 2024-06-02 15:59:00 64.00 inches Jonatan F [facility] Body Temperature 2024-06-02 15:59:00 98.50 degrees Jonatan F Landy Heart Rate 2024-06-02 15:59:00 83.00 /min [facility] F [facility] Respiratory Rate 2024-06-02 15:59:00 18.00 /min Jonatan F Landy BP Systolic 2024-05-30 13:13:00 123 mm[Hg] Jonatan F Landy BP Diastolic 2024-05-30 13:13:00 62 mm[Hg] Jonatan F Landy Weight Measured 2024-05-30 13:13:00 159.80 pounds Jonatan F Landy Height Measured 2024-05-30 13:13:00 64.00 inches Jonatan F Landy Body Temperature 2024-05-30 13:13:00 98.00 degrees Jonatan F Landy Heart Rate 2024-05-30 13:13:00 87.00 /min Jonatan F Landy Respiratory Rate 2024-05-30 13:13:00 14.00 /min Jonatan F Landy BP Systolic 2024-05-12 16:38:00 128 mm[Hg] Jonatan F Landy BP Diastolic 2024-05-12 16:38:00 46 mm[Hg] Jonatan F Landy Weight Measured 2024-05-12 16:38:00 193.40 pounds Jonatan F Landy Height Measured 2024-05-12 16:38:00 64.00 inches Jonatan F Landy Body Temperature 2024-05-12 16:38:00 99.10 degrees Jonatan F Landy Heart Rate 2024-05-12 16:38:00 76.00 /min Jonatan F Landy Respiratory Rate 2024-05-12 16:38:00 18.00 /min Jonatan F Landy BP Systolic 2024-04-21 16:12:00 97 mm[Hg] Jonatan F Landy BP Diastolic 2024-04-21 16:12:00 42 mm[Hg] Jonatan F Landy Weight Measured 2024-04-21 16:12:00 172.00 pounds Jonatan F Landy Height Measured 2024-04-21 16:12:00 64.00 inches Jonatan F Landy Body Temperature 2024-04-21 16:12:00 98.20 degrees Jonatan F Landy Heart Rate 2024-04-21 16:12:00 80.00 /min Jonatan F Landy Respiratory Rate 2024-04-21 16:12:00 17.00 /min Jonatan F Landy BP Systolic 2024-04-14 15:54:00 130 mm[Hg] Jonatan F Landy BP Diastolic 2024-04-14 15:54:00 68 mm[Hg] Jonatan F Landy Weight Measured 2024-04-14 15:54:00 172.60 pounds Jonatan F Landy Height Measured 2024-04-14 15:54:00 64.00 inches Jonatan F Landy Body Temperature 2024-04-14 15:54:00 98.30 degrees Jonatan F Landy Heart Rate 2024-04-14 15:54:00 94.00 /min Jonatan F Landy Respiratory Rate 2024-04-14 15:54:00 18.00 /min Jonatan F Landy BP Systolic 2024-04-01 16:17:00 161 mm[Hg] Jonatan F Landy BP Diastolic 2024-04-01 16:17:00 71 mm[Hg] Jonatan F Landy Weight Measured 2024-04-01 16:17:00 171.80 pounds Jonatan F Landy Height Measured 2024-04-01 16:17:00 Jonatan F Landy Body Temperature 2024-04-01 16:17:00 98.10 degrees Jonatan F Landy Heart Rate 2024-04-01 16:17:00 74.00 /min Jonatan F Landy Respiratory Rate 2024-04-01 16:17:00 16.00 /min Jonatan F Landy BP Systolic 2024-03-28 16:08:00 145 mm[Hg] Jonatan F Landy BP Diastolic 2024-03-28 16:08:00 48 mm[Hg] Jonatan Eason Weight Measured 2024-03-28 16:08:00 173.40 pounds Jonatan Eason Height Measured 2024-03-28 16:08:00 64.00 inches Jonatan Eason Body Temperature 2024-03-28 16:08:00 98.00 degrees Jonatan Eason Heart Rate 2024-03-28 16:08:00 74.00 /min Jonatan Eason Respiratory Rate 2024-03-28 16:08:00 Jonatan Eason BP Systolic 2024-02-12 15:02:00 151 mm[Hg] Jonatan [...] Systolic blood pressure 2024-01-05 04:45:00 116 mm[Hg] [facility] Diastolic blood pressure 2024-01-05 04:45:00 67 mm[Hg] [facility] Heart rate 2024-01-05 04:45:00 62 /min [facility] Body temperature 2024-01-05 04:45:00 35.56 Jessica [facility] Respiratory rate 2024-01-05 04:45:00 18 /min [facility] Oxygen saturation in Arterial blood by Pulse oximetry 2024-01-05 04:45:00 98 /min [facility] Body height 2024-01-03 15:38:00 157.5 cm [facility] Body weight 2024-01-03 15:38:00 78.019 kg [facility] BMI 2024-01-03 15:38:00 31.46 kg/m2 [facility] Systolic blood pressure 2024-01-02 16:52:00 125 mm[Hg] [facility] Diastolic blood pressure 2024-01-02 16:52:00 72 mm[Hg] [facility] Heart rate 2024-01-02 16:52:00 98 /min [facility] Body temperature 2024-01-02 16:52:00 36.89 Jessica [facility] Respiratory rate 2024-01-02 16:52:00 20 /min [facility] Oxygen saturation in Arterial blood by Pulse oximetry 2024-01-02 16:52:00 98 /min [facility] Body height 2023-12-31 16:13:00 157.5 cm [facility] Body weight 2023-12-31 16:13:00 78.019 kg [facility] BMI 2023-12-31 16:13:00 31.46 kg/m2 [facility] Systolic blood pressure 2023-12-27 16:38:00 135 mm[Hg] [facility] Diastolic blood pressure 2023-12-27 16:38:00 70 mm[Hg] [facility] Heart rate 2023-12-27 16:38:00 63 /min [facility] Body temperature 2023-12-27 16:38:00 36.06 Jessica [facility] Respiratory rate 2023-12-27 16:38:00 17 /min [facility] Oxygen saturation in Arterial blood by Pulse oximetry 2023-12-27 16:38:00 99 /min [facility] Body height 2023-12-27 14:24:00 157.5 cm [facility] Body weight 2023-12-27 14:24:00 78.019 kg [facility] BMI 2023-12-27 14:24:00 31.46 kg/m2 [facility] BP Systolic 2023-06-27 15:24:00 153 mm[Hg] Jonatan F Landy BP Diastolic 2023-06-27 15:24:00 64 mm[Hg] Jonatan F Landy Weight Measured 2023-06-27 15:24:00 175.00 pounds Jonatan F Landy Height Measured 2023-06-27 15:24:00 64.00 inches Jonatan F Landy Body Temperature 2023-06-27 15:24:00 98.80 degrees Jonatan F Landy Heart Rate 2023-06-27 15:24:00 89.00 /min Jonatan F Landy Respiratory Rate 2023-06-27 15:24:00 18.00 /min Jonatan F Landy BP Systolic 2023-05-21 13:59:00 143 mm[Hg] Jonatan F Landy BP Diastolic 2023-05-21 13:59:00 66 mm[Hg] Jonatan F Landy Weight Measured 2023-05-21 13:59:00 174.40 pounds Jonatan Eason Height Measured 2023-05-21 13:59:00 64.00 inches Jonatan Eason Body Temperature 2023-05-21 13:59:00 98.20 degrees Jonatan F Landy Heart Rate 2023-05-21 13:59:00 68.00 /min Jonatan Eason Respiratory Rate 2023-05-21 13:59:00 Jonatan Eason BP Systolic 2023-02-28 14:30:00 151 mm[Hg] Jonatan F Landy BP Diastolic 2023-02-28 14:30:00 68 mm[Hg] Jonatan F Landy Weight Measured 2023-02-28 14:30:00 167.40 pounds Jonatan F Landy Height Measured 2023-02-28 14:30:00 64.00 inches Jonatan F Landy Body Temperature 2023-02-28 14:30:00 97.90 degrees Jonatan F Landy Heart Rate 2023-02-28 14:30:00 80.00 /min Jonatan F Landy Respiratory Rate 2023-02-28 14:30:00 Jonatan F Landy BP Systolic 2022-12-20 14:31:00 133 mm[Hg] Jonatan F Landy BP Diastolic 2022-12-20 14:31:00 61 mm[Hg] Jonatan F Landy Weight Measured 2022-12-20 14:31:00 174.80 pounds Jonatan F Landy Height Measured 2022-12-20 14:31:00 64.00 inches Jonatan F Landy Body Temperature 2022-12-20 14:31:00 97.70 degrees Jonatan F Landy Heart Rate 2022-12-20 14:31:00 69.00 /min Jonatan F Landy Respiratory Rate 2022-12-20 14:31:00 Jonatan F Landy BP Systolic 2022-09-12 16:48:00 160 mm[Hg] Jonatan F Landy BP Diastolic 2022-09-12 16:48:00 77 mm[Hg] Jonatan F Landy Weight Measured 2022-09-12 16:48:00 177.60 pounds Jonatan F Landy Height Measured 2022-09-12 16:48:00 64.00 inches Jonatan F Landy Body Temperature 2022-09-12 16:48:00 97.90 degrees Jonatan F Landy Heart Rate 2022-09-12 16:48:00 67.00 /min Jonatan F Landy Respiratory Rate 2022-09-12 16:48:00 Jonatan F Landy BP Systolic 2022-05-30 15:15:00 Jonatan F Landy BP Diastolic 2022-05-30 15:15:00 Jonatan F Landy Weight Measured 2022-05-30 15:15:00 179.80 pounds Jonatan F Landy Height Measured 2022-05-30 15:15:00 64.00 inches Jonatan F Landy Body Temperature 2022-05-30 15:15:00 Jonatan F Landy Heart Rate 2022-05-30 15:15:00 Jonatan F Landy Respiratory Rate 2022-05-30 15:15:00 Jonatan F Landy BP Systolic 2022-05-22 14:36:00 166 mm[Hg] Jonatan F Landy BP Diastolic 2022-05-22 14:36:00 69 mm[Hg] Jonatan F Landy Weight Measured 2022-05-22 14:36:00 179.80 pounds Jonatan F Landy Height Measured 2022-05-22 14:36:00 64.00 inches Jonatan Eason Body Temperature 2022-05-22 14:36:00 97.80 degrees Jonatan F Landy Heart Rate 2022-05-22 14:36:00 60.00 /min Jonatan F Landy Respiratory Rate 2022-05-22 14:36:00 Jonatanjake Eason BP Systolic 2022-03-13 16:23:00 167 mm[Hg] Jonatan F Landy BP Diastolic 2022-03-13 16:23:00 82 mm[Hg] Jonatan F Landy Weight Measured 2022-03-13 16:23:00 172.00 pounds Jonatan Eason Height Measured 2022-03-13 16:23:00 64.00 inches Jonatan F Landy Body Temperature 2022-03-13 16:23:00 97.80 degrees Jonatan F Landy Heart Rate 2022-03-13 16:23:00 65.00 /min Jonatan F Landy Respiratory Rate 2022-03-13 16:23:00 16.00 /min Jonatan F Landy BP Systolic 2022-02-24 14:41:00 178 mm[Hg] Jonatan F Landy BP Diastolic 2022-02-24 14:41:00 92 mm[Hg] Jonatan Eason Weight Measured 2022-02-24 14:41:00 173.40 pounds Jonatan Eason Height Measured 2022-02-24 14:41:00 64.00 inches Jonatan Eason Body Temperature 2022-02-24 14:41:00 98.20 degrees Jonatan Eason Heart Rate 2022-02-24 14:41:00 70.00 /min Jonatan F Landy Respiratory Rate 2022-02-24 14:41:00 18.00 /min Jonatan Eason BP Systolic 2022-02-13 08:47:00 175 mm[Hg] BP [...] Date / Time Performed Performing Clinician Source XR CHEST 2 VW 2024-06-10 16:06:00 Requisition, Mercedes [facility] PHOSPHORUS 2024-04-28 12:47:00 Alesha Abad [facility] MAGNESIUM 2024-04-28 12:47:00 Pollo [facility] BASIC METABOLIC PANEL (NA, K , CL, CO2, GLUCOSE, BUN, CREATININE, CA) 2024-04-28 12:47:00 Pollo [facility] CBC WITH DIFF 2024-04-28 12:42:00 Pollo [facility] URINE CULTURE 2024-04-27 16:41:00 Jana Mosquera [facility] MAGNESIUM 2024-04-27 11:50:00 Shiva [facility] BASIC METABOLIC PANEL (NA, K , CL, CO2, GLUCOSE, BUN, CREATININE, CA) 2024-04-27 11:50:00 Shiva [facility] CBC WITH DIFF 2024-04-27 11:50:00 Shiva [facility] CBC WITHOUT DIFF 2024-04-27 01:49:00 Jana Mosquera [facility] US RETROPERITONEAL COMPLETE 2024-04-27 01:29:00 Robles Ratliff [facility] TRANSFUSE PACKED RBC 2024-04-26 22:40:00 Julita Lazo [employer] [facility] PREPARE PACKED RBC 2024-04-26 22:31:05 Julita Lazo [employer] [facility] PREPARE PACKED RBC 2024-04-26 21:22:20 Nica Hoskins [facility] TRANSFUSE PACKED RBC 2024-04-26 21:15:00 Julita Lazo [employer] [facility] PREPARE PACKED RBC 2024-04-26 20:32:24 Alpesh Pacheco [facility] CBC WITHOUT DIFF 2024-04-26 20:14:00 Julita Lazo [employer] [facility] TRANSFUSE PACKED RBC 2024-04-26 17:40:00 Julita Lazo [employer] [facility] PREPARE PACKED RBC 2024-04-26 17:22:56 Julita Lazo [facility] LACTIC ACID WHOLE BLOOD 2024-04-26 14:53:00 Julita Lazo [employer] [facility] MAGNESIUM 2024-04-26 12:04:00 Jana Mosquera [facility] HEPATIC FUNCTION PANEL (8007 6) (ALB,T.PRO,BILI T,BU/BC,ALT,AST,ALK PHOS) 2024-04-26 12:04:00 [facility] METABOLIC PANEL (NA, K , CL, CO2, GLUCOSE, BUN, CREATININE, CA) 2024-04-26 12:04:[address] [facility] CBC WITH DIFF 2024-04-26 12:04:[address] [facility] HB ABO GROUPING 2024-04-26 12:04:[address] [facility] MRSA / MSSA SCREEN BY LYN MARQUEZ 2024-04 12:04:00 [facility] RBC 2024-04-26 09:37:00 Nica Hoskins [facility] LACTIC ACID WHOLE BLOOD 2024-04-26 08:58:00 Nica Hoskins [facility] EKG-12 LEAD 2024-04-26 08:36:52 Nica Hoskins [facility] URINALYSIS 2024-04-26 07:44:00 Nica Hoskins [facility] HB ABO GROUPING 2024-04-26 07:38:00 Nica Hoskins [facility] CT HEAD WO CONTRAST 2024-04-26 06:50:52 Nica Hoskins [facility] LACTIC ACID WHOLE BLOOD 2024-04-26 06:32:00 Nica Hoskins [facility] LIPASE 2024-04-26 06:30:00 Nica Hoskins [facility] MAGNESIUM 2024-04-26 06:30:00 Nica Hoskins [facility] AMMONIA, PLASMA 2024-04-26 06:30:00 Nica Hoskins [facility] TROPONIN I 2024-04-26 06:30:00 Nica Hoskins [facility] COMP. METABOLIC PANEL (66168) 2024-04-26 06:30:00 Nica Hoskins [facility] CBC WITH DIFF 2024-04-26 06:30:00 Nica Hoskins [facility] PROTHROMBIN TIME / INR 2024-04-26 06:30:00 Nica Hoskins [facility] ACTIVATED PARTIAL THRMPLAS RASHAD 2024-04-13 4 06:30:00 Nica Hoskins [facility] INFLUENZA A/B RSV COVID NAAT 2024-04-26 06:30:00 Sara [facility] N-TERMINAL PRO-BNP 2024-04-26 06:30:00 Nica Hoskins [facility] CRITICAL CARE 2024-04-26 05:29:00 Nica Hoskins [facility] [address] Ultrasound, Abdominal, Real Time With Image Documentation; Complete 2024-04-24 00:00:00 Jonatan Eason BASIC METABOLIC PANEL (NA, K , CL, CO2, GLUCOSE, BUN, CREATININE, CA) 2024-04-09 12:04:00 [facility] 2024-04-09 12:04:00 Otilia San Marika [facility] URINALYSIS 2024-04-08 08:46[facility] 2024-04-08 08:09[facility] COMP. METABOLIC PANEL (87040) 2024-04-08 08:09:00 Janell [facility] CBC WITH DIFF 2024-04-08 08:09:00 [facility] / INR 2024-04-08 08:09[facility]00 [facility] AMMONIA, PLASMA 2024-03-14 10:11:00 Dayan Nevarez [facility] HEPATIC FUNCTION PANEL (8007 6) (ALB,T.PRO,BILI T,BU/BC,ALT,AST,ALK PHOS) 2024-03-14 10:11:00 [facility] BASIC METABOLIC PANEL (NA, K , CL, CO2, GLUCOSE, BUN, CREATININE, CA) 2024-03-14 10:11:00 [facility] CBC WITHOUT DIFF 2024-03-14 10:11:00 [facility] TRANSFUSE PACKED RBC 2024-03-13 17:34:00 [facility] PREPARE PACKED RBC 2024-03-13 17:25:37 [facility] PREPARE PACKED RBC 2024-03-13 16:52:19 [facility] AMMONIA, PLASMA 2024-03-13 07:44:00 [facility] BASIC METABOLIC PANEL (NA, K , CL, CO2, GLUCOSE, BUN, CREATININE, CA) 2024-03-13 07:44:00 [facility] CBC WITHOUT DIFF 2024-03-13 07:44:00 [facility] PANEL IDENTIFICATION 2024-03-13 01:01:00 [facility] ELUTION IDENTIFICATION 2024-03-13 01:01:00 [facility] KIP POLYSPECIFIC RESULT 2024-03-13 01:01:00 [facility] KIP MONOSPECIFIC IGG RESULT 2024-03-13 01:01:00 [facility] KIP MONOSPECIFIC C3 RESULT 2024-03-13 01:01:00 [facility] EXTRA TUBE LAV (BLOOD BANK) 2024-03-13 01:01:00 [facility] HB ABO GROUPING 2024-03-12 21:01:00 [facility] BASIC METABOLIC PANEL (NA, K , CL, CO2, GLUCOSE, BUN, CREATININE, CA) 2024-03-12 10:25:00 Otilia San [facility] CBC WITH DIFF 2024-03-12 10:25:00 Otilia San [facility] MAGNESIUM 2024-03-11 09:02:00 Dayan Nevarez [facility] BASIC METABOLIC PANEL (NA, K , CL, CO2, GLUCOSE, BUN, CREATININE, CA) 2024-03-11 09:02:00 Dayan Nevarez [facility] CBC WITHOUT DIFF 2024-03-11 09:02:00 Dayna Nevarez [facility] LACTIC ACID WHOLE BLOOD 2024-03-11 02:31:00 Nica Hoskins [facility] BLOOD CULTURE SCREEN 2024-03-11 01:04:00 Nica Hoskins [facility] URINE CULTURE 2024-03-11 01:03:00 Nica Hoskins [facility] BLOOD CULTURE SCREEN 2024-03-11 00:49:00 Nica Hoskins [facility] CT ABDOMEN PELVIS W CONTRAST 2024-03-11 00:16:00 Nica Hoskins [facility] AMMONIA, PLASMA 2024-03-10 22:36:00 Nica Hoskins [facility] LACTIC ACID WHOLE BLOOD 2024-03-10 22:21:00 Nica Hoskins [facility] TROPONIN I 2024-03-10 22:20:00 Nica Hoskins [facility] COMP. METABOLIC PANEL (65374) 2024-03-10 22:20:00 Nica Hoskins [facility] ETHANOL 2024-03-10 22:20:00 Nica Hoskins [facility] CBC WITH DIFF 2024-03-10 22:20:00 Nica Hoskins [facility] PROTHROMBIN TIME / INR 2024-03-10 22:20:00 Nica Hoskins [facility] ACTIVATED PARTIAL THRMPLAS RASHAD 2024-02-13 8 22:20:00 Nica Hoskins [facility] URINALYSIS 2024-03-10 22:20:00 Nica Hoskins [facility] N-TERMINAL PRO-BNP 2024-03-10 22:20:00 Nica Hoskins [facility] CT HEAD WO CONTRAST 2024-03-10 21:51:00 Nica Hoskins [facility] PREPARE PACKED RBC 2024-02-05 22:57:57 Iraj Williamson [facility] CBC WITHOUT DIFF 2024-02-05 18:12:00 Andrew [facility] CBC WITHOUT DIFF 2024-02-05 18:12:00 Andrew [facility] TRANSFUSE PACKED RBC 2024-02-05 13:54:00 Andrew [facility] TRANSFUSE PACKED RBC 2024-02-05 13:54:00 Andrew [facility] PREPARE PACKED RBC 2024-02-05 13:45:51 Andrew [facility] PREPARE PACKED RBC 2024-02-05 13:45:51 [facility] PREPARE PACKED RBC 2024-02-05 11:46:16 Iraj Williamson [facility] MAGNESIUM 2024-02-05 10:48:00 Andrew [facility] BASIC METABOLIC PANEL (NA, K , CL, CO2, GLUCOSE, BUN, CREATININE, CA) 2024-02-05 10:48:00 Andrew [facility] CBC WITH DIFF 2024-02-05 10:48:00 Andrew [facility] MAGNESIUM 2024-02-05 10:48:00 [facility] BASIC METABOLIC PANEL (NA, K , CL, CO2, GLUCOSE, BUN, CREATININE, CA) 2024-02-05 10:48:00 Andrew [facility] CBC WITH DIFF 2024-02-05 10:48:00 Andrew [facility] TROPONIN I 2024-02-04 19:45:00 Iraj Williamson [facility] TROPONIN I 2024-02-04 19:45:00 Iraj Williamson [facility] CYSTOSCOPY WITH EVACUATION CLOTS 2024-01 17:51:00 Deep [facility] CYSTOSCOPY WITH EVACUATION CLOTS 2024-01 17:51:00 Sonstein, Bertin [facility] MAGNESIUM 2024-02-04 10:16:00 Andrew [facility] BASIC METABOLIC PANEL (NA, K , CL, CO2, GLUCOSE, BUN, CREATININE, CA) 2024-02-04 10:16:00 Andrew [facility] CBC WITH DIFF 2024-02-04 10:16:00 Andrew [facility] MAGNESIUM 2024-02-04 10:16:00 Andrew [facility] BASIC METABOLIC PANEL (NA, K , CL, CO2, GLUCOSE, BUN, CREATININE, CA) 2024-02-04 10:16:00 Andrew [facility] CBC WITH DIFF 2024-02-04 10:16:00 [facility] CBC WITHOUT DIFF 2024-02-04 04:40:00 Betsy Gabriel [facility] CBC WITHOUT DIFF 2024-02-04 04:40:00 Betsy Gabriel [facility] TRANSFUSE PACKED RBC 2024-02-04 01:42:[address] [facility] TRANSFUSE PACKED RBC 2024-02-04 01:42:00 Betsy Gabriel [facility] PREPARE PACKED RBC 2024-02-04 01:26:40 Betsy Gabriel [facility] PREPARE PACKED RBC 2024-02-04 01:26:40 Gabriel Meyer [facility] CBC WITHOUT DIFF 2024-02-03 22:16:00 Andrew [facility] CBC WITHOUT DIFF 2024-02-03 22:16:00 [facility] TRANSFUSE PACKED RBC 2024-02-03 18:07:00 Andrew [facility] TRANSFUSE PACKED RBC 2024-02-03 18:07:00 Andrew [facility] PREPARE PACKED RBC 2024-02-03 17:56:43 Andrew [facility] PREPARE PACKED RBC 2024-02-03 17:56:43 Andrew [facility] CBC WITHOUT DIFF 2024-02-03 16:29:00 Andrew [facility] CBC WITHOUT DIFF 2024-02-03 16:29:00 Hemalathaney [facility] US ABDOMEN LIMITED WITH DOPPLER 13:11:[address] [facility] US ABDOMEN LIMITED WITH DOPPLER 13:11:[address] [facility] CBC WITHOUT DIFF 2024-02-03 12:11:00 Justyn Garrison [facility] CBC WITHOUT DIFF 2024-02-03 12:11:00 Justyn Garrison [facility] LACTATE DEHYDROGENASE 2024-02-03 11:16:[address] [facility] LACTATE DEHYDROGENASE 2024-02-03 11:16:[address] [facility] TRANSFUSE PACKED RBC 2024-02-03 09:18:[address] [facility] TRANSFUSE PACKED RBC 2024-02-03 09:18:[address] [facility] PREPARE PACKED RBC 2024-02-03 09:04:35 Justyn Garrison [facility] PREPARE PACKED RBC 2024-02-03 09:04:35 Justyn Garrison [facility] CT ANGIOGRAM ABDOMEN/PELVIS 2024-02-03 07:54:[address] [facility] CT ANGIOGRAM ABDOMEN/PELVIS 2024-02-03 07:54:[address] [facility] HB ABO GROUPING 2024-02-03 05:54:00 Justyn Garrison [facility] HB ABO GROUPING 2024-02-03 05:54:00 Justyn Garrison [facility] FERRITIN SERUM 2024-02-03 05:00:[address] [facility] AMMONIA, PLASMA 2024-02-03 05:00:00 Justyn Garrison [facility] HAPTOGLOBIN, SERUM 2024-02-03 05:00:00 Danuta Greeresha [facility] HEPATIC FUNCTION PANEL (8007 6) (ALB,T.PRO,BILI T,BU/BC,ALT,AST,ALK PHOS) 2024-02-03 05:00:00 Justyn Garrison [facility] BASIC METABOLIC PANEL (NA, K , CL, CO2, GLUCOSE, BUN, CREATININE, CA) 2024-02-03 05:00:00 Justyn Garrison [facility] IRON PANEL 2024-02-03 05:00:00 [facility] 2024-02-03 05:00:00 Justyn Garrison [facility] PROTHROMBIN TIME / INR 2024-02-03 05:00:00 Justyn Garrison [facility] ACTIVATED PARTIAL THRMPLAS RASHAD 2024-01-14 2 05:00:[address] [facility] FIBRINOGEN 2024-02-03 05:00:[address] [facility] URINALYSIS 2024-02-03 05:00:00 Justyn Garrison [facility] RETICULOCYTES AUTOMATED 2024-02-03 05:00:[address] [facility] FERRITIN SERUM 2024-02-03 05:00:[address] [facility] AMMONIA, PLASMA 2024-02-03 05:00:00 Justyn Garrison [facility] HAPTOGLOBIN, SERUM 2024-02-03 05:00:00 [facility] (8007 6) (ALB,T.PRO,BILI T,BU/BC,ALT,AST,ALK PHOS) 2024-02-03 05:00:00 Justyn Garrison [facility] BASIC METABOLIC PANEL (NA, K , CL, CO2, GLUCOSE, BUN, CREATININE, CA) 2024-02-03 05:00:00 Justyn Garrison [facility] IRON PANEL 2024-02-03 05:00:00 [facility]FF 2024-02-03 05:00:00 Justyn Garrison [facility] PROTHROMBIN TIME / INR 2024-02-03 05:00:00 Justyn Garrison [facility] ACTIVATED PARTIAL THRMPLAS RASHAD 2024-01-14 2 05:00:00 Danuta Greeresha [facility] FIBRINOGEN 2024-02-03 05:00:[address] [facility] URINALYSIS 2024-02-03 05:00:00 Justyn Garrison [facility] RETICULOCYTES AUTOMATED 2024-02-03 05:00:[address] [facility] COMP. METABOLIC PANEL ([id number]) 2024-01-04 10:26:[address] [facility] CBC WITHOUT DIFF 2024-01-04 10:26:[address] [facility] CBC WITHOUT DIFF 2024-01-04 10:26:[address] [facility] COMP. METABOLIC PANEL ([id number]) 2024-01-04 10:26:00 [facility] 2024-01-03 17:17:00 [facility] INTUBATION 2024-01-03 17:09:00 [facility] CBC WITHOUT DIFF 2024-01-03 10:43:[address] [facility] CBC WITHOUT DIFF 2024-01-03 10:43:[address] [facility] MRSA / MSSA SCREEN BY PCRLYN 2023-12 10:31:00 Yovani Morales Abdiel [facility] MRSA / MSSA SCREEN BY [facility]12 10:31:00 Yovani Morales Abdiel [facility] CBC WITH DIFF 2024-01-02 10:29:[address] [facility] BASIC METABOLIC PANEL (NA, K , CL, CO2, GLUCOSE, BUN, CREATININE, CA) 2024-01-02 10:29:[address] [facility] MAGNESIUM 2024-01-02 10:29:[address] [facility] MAGNESIUM 2024-01-02 10:29:[address] [facility] BASIC METABOLIC PANEL (NA, K , CL, CO2, GLUCOSE, BUN, CREATININE, CA) 2024-01-02 10:29:00 [facility]FF 2024-01-02 10:29:[address] [facility] CT ANGIOGRAM ABDOMEN/PELVIS 2024-01-01 20:21:11 Marian Zepeda [facility] CT ANGIOGRAM ABDOMEN/PELVIS 2024-01-01 20:21:11 [facility] 2024-01-01 10:12:[address] [facility] BASIC METABOLIC PANEL (NA, K , CL, CO2, GLUCOSE, BUN, CREATININE, CA) 2024-01-01 10:12:00 [facility]UM 2024-01-01 10:12:[address] [facility] PROTHROMBIN TIME / INR 2024-01-01 10:12:00 Raza Fraire [facility] HEPATIC FUNCTION PANEL (8007 6) (ALB,T.PRO,BILI T,BU/BC,ALT,AST,ALK PHOS) 2024-01-01 10:12:00 Raza Fraire [facility] MAGNESIUM 2024-01-01 10:12:00 [facility]EL (8007 6) (ALB,T.PRO,BILI T,BU/BC,ALT,AST,ALK PHOS) 2024-01-01 10:12:00 Raza Fraire [facility] BASIC METABOLIC PANEL (NA, K , CL, CO2, GLUCOSE, BUN, CREATININE, CA) 2024-01-01 10:12:00 [facility] WITH DIFF 2024-01-01 10:12:[address] [facility] PROTHROMBIN TIME / INR 2024-01-01 10:12:00 Raza Fraire [facility] CBC WITH DIFF 2024-01-01 04:21:00 Tor San [facility] CBC WITH DIFF 2024-01-01 04:21:00 Tor San [facility] IR TIPS 2023-12-31 23:59:32 Isac Fuenteskash [facility] IR TIPS 2023-12-31 23:59:32 Isac Fuentes [facility] IR TIPS 2023-12-31 23:59:32 Isac Fuentes [facility] PREPARE PACKED RBC 2023-12-31 18:55:23 Theodora Mazariegos [facility] ARTERIAL LINE 2023-12-31 18:20:00 Rachel Lange [facility] ARTERIAL LINE 2023-12-31 18:20:00 Nazario Rachel [facility] INTUBATION 2023-12-31 18:09:00 [facility] INTUBATION 2023-12-31 18:09:00 Nazario Rachel [facility] CBC WITH DIFF 2023-12-31 17:48:00 Marian Zepeda Lucio [facility] CBC WITH DIFF 2023-12-31 17:48:00 Marian Zepedafeez [facility] HB ABO GROUPING 2023-12-31 15:34:00 Theodora Mazariegos [facility] HB ABO GROUPING 2023-12-31 15:34:00 Theodora Mazariegos [facility] CBC WITHOUT DIFF 2023-12-29 10:45:00 [facility] WITHOUT [facility]FF 2023-12-29 10:45:00 [facility] CBC WITHOUT DIFF 2023-12-28 20:52:00 [facility] WITHOUT DIFF 2023-12-28 20:52:00 [facility] PROCEDURE DOCUMENTATION 16 18:17:46 Doctor Unassigned, [place] [facility] CBC WITH DIFF 2023-12-28 10:31:00 Roselia Maki [facility] ACTIVATED PARTIAL THRMPLAS RASHAD 2023-12-13 6 10:31:00 Glynn, [facility] CBC WITH DIFF 2023-12-28 10:31:00 Maki, [facility] ACTIVATED PARTIAL THRMPLAS RASHAD 2023-12-13 6 10:31:00 Maki, [facility] ACTIVATED PARTIAL THRMPLAS RASHAD 2023-12-13 6 01:54:00 Maki, [facility] ACTIVATED PARTIAL THRMPLAS RASHAD 2023-12-13 6 01:54:00 Maki, [facility] ACTIVATED PARTIAL THRMPLAS RASHAD 2023-12-13 6 01:54:00 Maki, [facility] ACTIVATED PARTIAL THRMPLAS RASHAD 2023-12-13 5 20:37:[address] [facility] ACTIVATED PARTIAL THRMPLAS RASHAD 2023-12-13 5 20:37:[address] [facility] ACTIVATED PARTIAL THRMPLAS RASHAD 2023-12-13 5 20:37:[address] [facility] EGD (ENDO) 2023-12-27 15:34:54 Bertin [facility] EGD (ENDO) 2023-12-27 15:34:54 Bertin [facility] EGD (ENDO) 2023-12-27 15:34:54 Bertin [facility] ESOPHAGOGASTRODUODENOSCOPY 2023-12-27 14:52:00 Kamran [facility] ESOPHAGOGASTRODUODENOSCOPY 2023-12-27 14:52:00 Kamran [facility] ESOPHAGOGASTRODUODENOSCOPY 2023-12-27 14:52:00 Mj Solitario [facility] CBC WITH DIFF 2023-12-27 11:20:00 Nayeli [place] [facility] CBC WITH DIFF 2023-12-27 11:20:00 [facility] 2023-12-27 11:20:[address] [facility] ALPHA 1 ANTITRYPSIN 2023-12-27 11:19:[address] [facility] CERULOPLASMIN 2023-12-27 11:19:[address] [facility] IMMUNOGLOBULIN G 2023-12-27 11:19:[address] [facility] BASIC METABOLIC PANEL (NA, K , CL, CO2, GLUCOSE, BUN, CREATININE, CA) 2023-12-27 11:19:00 Jana Mosquera Orrobbin [facility] MAGNESIUM 2023-12-27 11:19:00 [facility] 2023-12-27 11:19:[address] [facility] CERULOPLASMIN 2023-12-27 11:19:[address] [facility] ALPHA 1 ANTITRYPSIN 2023-12-27 11:19:[address] [facility] IMMUNOGLOBULIN G 2023-12-27 11:19:[address] [facility] BASIC METABOLIC PANEL (NA, K , CL, CO2, GLUCOSE, BUN, CREATININE, CA) 2023-12-27 11:19:00 Jana Mosquera [facility] SMOOTH MUSCLE AB,IGG W/REFLEX 2023-12-27 11:19:[address] [facility] SMOOTH MUSCLE AB,IGG W/REFLEX 2023-12-27 11:19:[address] [facility] MAGNESIUM 2023-12-27 11:19:00 Jana Mosquera [facility] CERULOPLASMIN 2023-12-27 11:19:[address] [facility] ALPHA 1 ANTITRYPSIN 2023-12-27 11:19:[address] [facility] IMMUNOGLOBULIN G 2023-12-27 11:19:[address] [facility] BASIC METABOLIC PANEL (NA, K , CL, CO2, GLUCOSE, BUN, CREATININE, CA) 2023-12-27 11:19:00 Jana Mosquera Orrobbin [facility] TRANSFUSE PACKED RBC 2023-12-26 19:40:[address] [facility] TRANSFUSE PACKED RBC 2023-12-26 19:40:[address] [facility] PREPARE PACKED RBC 2023-12-26 19:09:[address] [facility] PREPARE PACKED RBC 2023-12-26 19:09:[address] [facility] PREPARE PACKED RBC 2023-12-26 19:09:[address] [facility] PREPARE PACKED RBC 2023-12-26 18:26:36 Agustín [facility] PREPARE PACKED RBC 2023-12-26 18:26:36 Agustín [facility] ALPHA FETOPROTEIN 2023-12-26 17:19:00 Isac Fuentes [facility] EXTRA TUBE LAV (BLOOD BANK) 2023-12-26 17:19:00 Agustín [facility] TYPE AND SCREEN 2023-12-26 17:19:00 Agustín [facility] ALPHA FETOPROTEIN 2023-12-26 17:19:00 Isac Fuentes [facility] TYPE AND SCREEN 2023-12-26 17:19:00 Agustín [facility] EXTRA TUBE LAV (BLOOD BANK) 2023-12-26 17:19:00 Agustín [facility] ALPHA FETOPROTEIN 2023-12-26 17:19:00 Isac Fuentes [facility] TYPE AND SCREEN 2023-12-26 17:19:00 Agustín [facility] EXTRA TUBE LAV (BLOOD BANK) 2023-12-26 17:19:00 Agustín [facility] HB ABO GROUPING 2023-12-26 15:08:[address] [facility] HB ABO GROUPING 2023-12-26 15:08:[address] [facility] HB ABO GROUPING 2023-12-26 15:08:[address] [facility] CBC WITHOUT DIFF 2023-12-26 10:09:[address] [facility] BASIC METABOLIC PANEL (NA, K , CL, CO2, GLUCOSE, BUN, CREATININE, CA) 2023-12-26 10:09:[address] [facility] BASIC METABOLIC PANEL (NA, K , CL, CO2, GLUCOSE, BUN, CREATININE, CA) 2023-12-26 10:09:[address] [facility] CBC WITHOUT DIFF 2023-12-26 10:09:[address] [facility] BASIC METABOLIC PANEL (NA, K , CL, CO2, GLUCOSE, BUN, CREATININE, CA) 2023-12-26 10:09:[address] [facility] CBC WITHOUT DIFF 2023-12-26 10:09:[address] [facility] CT ABDOMEN W WO CONTRAST 2023-12-23 20:17:08 Nipper [facility] CT ABDOMEN W WO CONTRAST 2023-12-23 20:17:08 Nipper, [facility] CT ABDOMEN W WO CONTRAST 2023-12-23 20:17:08 Nipper, [facility] CT ABDOMEN W WO CONTRAST 2023-12-23 20:17:08 Niproxann [facility] BASIC METABOLIC PANEL (NA, K , CL, CO2, GLUCOSE, BUN, CREATININE, CA) 2023-12-23 17:11:00 Delano [facility] CBC WITH DIFF 2023-12-23 17:11:00 Nipper [facility] CBC WITH DIFF 2023-12-23 17:11:00 Niproxann [facility] BASIC METABOLIC PANEL (NA, K , CL, CO2, GLUCOSE, BUN, CREATININE, CA) 2023-12-23 17:11:00 Nipper [facility] BASIC METABOLIC PANEL (NA, K , CL, CO2, GLUCOSE, BUN, CREATININE, CA) 2023-12-23 17:11:00 Niproxann [facility] CBC WITH DIFF 2023-12-23 17:11:00 Nipper [facility] BASIC METABOLIC PANEL (NA, K , CL, CO2, GLUCOSE, BUN, CREATININE, CA) 2023-12-23 17:11:00 Delano [facility] CBC WITH DIFF 2023-12-23 17:11:00 Delano [facility] PREPARE PACKED RBC 2023-12-22 20:24:52 Deep [facility] HAV ANTIBODY (IGG AND IGM) 2023-12-22 19:08:00 Serena [facility] HAV ANTIBODY (IGG AND IGM) 2023-12-22 19:08:00 Serena [facility] HAV ANTIBODY (IGG AND IGM) 2023-12-22 19:08:00 Serena [facility] HAV ANTIBODY (IGG AND IGM) 2023-12-22 19:08:00 Serena [facility] PREPARE PACKED RBC 2023-12-22 18:10:13 Puneet Gan [facility] PREPARE PACKED RBC 2023-12-22 17:45:18 Desirae Easton [facility] PREPARE PACKED RBC 2023-12-22 17:45:18 Desirae Easton [facility] PREPARE PACKED RBC 2023-12-22 17:45:18 Desirae Easton [facility] PREPARE PACKED RBC 2023-12-22 17:45:18 Desirae Easton [facility] HB ABO GROUPING 2023-12-22 14:17:00 Delano [facility] HB ABO GROUPING 2023-12-22 14:17:00 Delano [facility] HB ABO GROUPING 2023-12-22 14:17:00 Delano [facility] HB ABO GROUPING 2023-12-22 14:17:00 Delano [facility] INTUBATION 2023-12-22 14:10:00 Puneet Gan [facility] CYSTOSCOPY WITH EVACUATION CLOTS 2023-12 13:44:00 Deep [facility] CYSTOSCOPY WITH EVACUATION CLOTS 2023-12 13:44:00 Deep [facility] CYSTOSCOPY WITH EVACUATION CLOTS 2023-12 13:44:00 Bertin Adame [facility] BASIC METABOLIC PANEL (NA, K , CL, CO2, GLUCOSE, BUN, CREATININE, CA) 2023-12-22 10:08:00 Delano [facility] LIPID PANEL (01581)(TOTAL CHOLESTEROL, TRIGLYCERIDES, HDL) 2023-12-22 10:08:00 Serena [facility] CBC WITHOUT DIFF 2023-12-22 10:08:00 Delano [facility] CBC WITHOUT DIFF 2023-12-22 10:08:00 Delano [facility] BASIC METABOLIC PANEL (NA, K , CL, CO2, GLUCOSE, BUN, CREATININE, CA) 2023-12-22 10:08:00 Delano [facility] LIPID PANEL (70265)(TOTAL CHOLESTEROL, TRIGLYCERIDES, HDL) 2023-12-22 10:08:00 Serena [facility] BASIC METABOLIC PANEL (NA, K , CL, CO2, GLUCOSE, BUN, CREATININE, CA) 2023-12-22 10:08:00 Delano [facility] LIPID PANEL ([id number])(TOTAL CHOLESTEROL, TRIGLYCERIDES, HDL) 2023-12-22 10:08:00 Serena [facility] CBC WITHOUT DIFF 2023-12-22 10:08:00 Delano [facility] BASIC METABOLIC PANEL (NA, K , CL, CO2, GLUCOSE, BUN, CREATININE, CA) 2023-12-22 10:08:00 Delano [facility] LIPID PANEL ([id number])(TOTAL CHOLESTEROL, TRIGLYCERIDES, HDL) 2023-12-22 10:08:00 Serena [facility] CBC WITHOUT DIFF 2023-12-22 10:08:00 Delano [facility] CBC WITHOUT DIFF 2023-12-21 22:04:00 Iva [facility] CBC WITHOUT DIFF 2023-12-21 22:04:00 Iva [facility] CBC WITHOUT DIFF 2023-12-21 22:04:00 Iva [facility] CBC WITHOUT DIFF 2023-12-21 22:04:00 Iva [facility] AMMONIA, PLASMA 2023-12-21 16:42:00 Ovclaude [facility] PROTHROMBIN TIME / INR 2023-12-21 16:42:00 Ovclaude, [facility] ACTIVATED PARTIAL THRMPLAS RASHAD 2023-12-0 9 16:42:00 Ovclaude, [facility] PROTHROMBIN TIME / INR 2023-12-21 16:42:00 Ovclaude, [facility] ACTIVATED PARTIAL THRMPLAS RASHAD 2023-12-0 9 16:42:00 Ovclaude, [facility] AMMONIA, PLASMA 2023-12-21 16:42:00 Ovclaude, [facility] AMMONIA, PLASMA 2023-12-21 16:42:00 Ovclaude, [facility] PROTHROMBIN TIME / INR 2023-12-21 16:42:00 Ovclaude, [facility] ACTIVATED PARTIAL THRMPLAS RASHAD 2023-12-0 9 16:42:00 Ovclaude, [facility] AMMONIA, PLASMA 2023-12-21 16:42:00 Ovclaude, [facility] PROTHROMBIN TIME / INR 2023-12-21 16:42:00 Ovclaude, [facility] ACTIVATED PARTIAL THRMPLAS RASHAD 2023-12-0 9 16:42:00 Roque, [facility] TRANSFUSE PACKED RBC 2023-12-21 14:10:00 Ovclaude [facility] TRANSFUSE PACKED RBC 2023-12-21 14:10:00 Ovclaude [facility] TRANSFUSE PACKED RBC 2023-12-21 14:10:00 Ovclaude [facility] TRANSFUSE PACKED RBC 2023-12-21 14:10:00 Roque [facility] MAGNESIUM 2023-12-21 08:29:00 Roque [facility] HEPATIC FUNCTION PANEL (8007 6) (ALB,T.PRO,BILI T,BU/BC,ALT,AST,ALK PHOS) 2023-12-21 08:29:00 Roque, [facility] BASIC METABOLIC PANEL (NA, K , CL, CO2, GLUCOSE, BUN, CREATININE, CA) 2023-12-21 08:29:00 Ovclaude, [facility] CBC WITH DIFF 2023-12-21 08:29:00 Otilia San [facility] BASIC METABOLIC PANEL (NA, K , CL, CO2, GLUCOSE, BUN, CREATININE, CA) 2023-12-21 08:29:00 Ovclaude, [facility] MAGNESIUM 2023-12-21 08:29:00 Ovclaude, [facility] CBC WITH DIFF 2023-12-21 08:29:00 Otilia San [facility] HEPATIC FUNCTION PANEL (8007 6) (ALB,T.PRO,BILI T,BU/BC,ALT,AST,ALK PHOS) 2023-12-21 08:29:00 Ovclaude, [facility] MAGNESIUM 2023-12-21 08:29:00 Ovclaude, [facility] HEPATIC FUNCTION PANEL (8007 6) (ALB,T.PRO,BILI T,BU/BC,ALT,AST,ALK PHOS) 2023-12-21 08:29:00 Roque [facility] BASIC METABOLIC PANEL (NA, K , CL, CO2, GLUCOSE, BUN, CREATININE, CA) 2023-12-21 08:29:00 Ovclaude, [facility] CBC WITH DIFF 2023-12-21 08:29:00 Otilia San [facility] MAGNESIUM 2023-12-21 08:29:00 Ovclaude [facility] HEPATIC FUNCTION PANEL (8007 6) (ALB,T.PRO,BILI T,BU/BC,ALT,AST,ALK PHOS) 2023-12-21 08:29:00 Roque [facility] BASIC METABOLIC PANEL (NA, K , CL, CO2, GLUCOSE, BUN, CREATININE, CA) 2023-12-21 08:29:00 Ovclaude, [facility] CBC WITH DIFF 2023-12-21 08:29:00 Otilia San [facility] TRANSFUSE PACKED RBC 2023-12-21 02:13:00 Desirae Easton Jazmin [facility] TRANSFUSE PACKED RBC 2023-12-21 02:13:00 Desirae Easton Jazmin [facility] TRANSFUSE PACKED RBC 2023-12-21 02:13:00 Desirae Easton [facility] TRANSFUSE PACKED RBC 2023-12-21 02:13:00 Desirae Easton Jazmin [facility] PREPARE PACKED RBC 2023-12-21 01:55:17 Desirae Easton Jazmin [facility] PREPARE PACKED RBC 2023-12-21 01:55:17 Desirae Easton Jazmin [facility] PREPARE PACKED RBC 2023-12-21 01:55:17 Desirae Easton Jazmin [facility] PREPARE PACKED RBC 2023-12-21 01:55:17 Desirae Easton Jazmin [facility] FERRITIN SERUM 2023-12-20 19:12:00 Roque [facility] IRON PANEL 2023-12-20 19:12:00 Otilia San [facility] VITAMIN B12, LEVEL 2023-12-20 19:12:00 Roque [facility] FOLATE 2023-12-20 19:12:00 Roque [facility] TOTAL IRON BINDING CAPACITY 2023-12-20 19:12:00 Roque [facility] FREE T4 2023-12-20 19:12:00 Roque [facility] HEPATITIS B SURFACE ANTIBODY 2023-12-20 19:12:00 Serena [facility] HEPATITIS B SURFACE ANTIGEN 2023-12-20 19:12:00 Serena [facility] HCV ANTIBODY 2023-12-20 19:12:00 Serena [facility] HEPATITIS B CORE ANTIBODY IGM 2023-12-20 19:12:00 Serena [facility] TOTAL IRON BINDING CAPACITY 2023-12-20 19:12:00 Roque [facility] IRON PANEL 2023-12-20 19:12:00 Otilia San [facility] FERRITIN SERUM 2023-12-20 19:12:00 Roque [facility] FOLATE 2023-12-20 19:12:00 Roque [facility] VITAMIN B12, LEVEL 2023-12-20 19:12:00 Roque [facility] FREE T4 2023-12-20 19:12:00 Ovclaude [facility] HCV ANTIBODY 2023-12-20 19:12:00 Serena [facility] HEPATITIS B CORE ANTIBODY IGM 2023-12-20 19:12:00 Serena [facility] HEPATITIS B SURFACE ANTIGEN 2023-12-20 19:12:00 Serena [facility] HEPATITIS B SURFACE ANTIBODY 2023-12-20 19:12:00 Serena [facility] FERRITIN SERUM 2023-12-20 19:12:00 Roque [facility] IRON PANEL 2023-12-20 19:12:00 Otilia San [facility] VITAMIN B12, LEVEL 2023-12-20 19:12:00 Roque [facility] FOLATE 2023-12-20 19:12:00 Roque [facility] TOTAL IRON BINDING CAPACITY 2023-12-20 19:12:00 Roque [facility] FREE T4 2023-12-20 19:12:00 Roque [facility] HEPATITIS B SURFACE ANTIBODY 2023-12-20 19:12:00 Serena [facility] HEPATITIS B SURFACE ANTIGEN 2023-12-20 19:12:00 Serena [facility] HCV ANTIBODY 2023-12-20 19:12:00 Serena [facility] HEPATITIS B CORE ANTIBODY IGM 2023-12-20 19:12:00 Serena [facility] FERRITIN SERUM 2023-12-20 19:12:00 Oville, [facility] IRON PANEL 2023-12-20 19:12:00 Otilia San [facility] VITAMIN B12, LEVEL 2023-12-20 19:12[facility] 19:12:00 Roque [facility] TOTAL IRON BINDING CAPACITY 2023-12-20 19:12:00 Roque [facility] FREE T4 2023-12-20 19:12:00 Roque [facility] HEPATITIS B SURFACE ANTIBODY 2023-12-20 19:12:00 Serena [facility] HEPATITIS B SURFACE ANTIGEN 2023-12-20 19:12:00 Serena [facility] HCV ANTIBODY 2023-12-20 19:12:00 Serena [facility] HEPATITIS B CORE ANTIBODY IGM 2023-12-20 19:12:00 Serena [facility] HB ABO GROUPING 2023-12-20 16:11:00 Desirae Easton Jazmin [facility] HB ABO GROUPING 2023-12-20 16:11:00 Desirae Easton [facility] HB ABO GROUPING 2023-12-20 16:11:00 Desirae Easton [facility] HB ABO GROUPING 2023-12-20 16:11:00 Desirae Easton [facility] EKG-12 LEAD 2023-12-20 16:07:32 Doctor Unassigned, [place] [facility] EKG-12 LEAD 2023-12-20 16:07:32 Doctor Unassigned, [place] [facility] EKG-12 LEAD 2023-12-20 16:07:32 Doctor Unassigned, [place] [facility] EKG-12 LEAD 2023-12-20 16:07:32 Doctor Unassigned, [place] [facility] CT ABDOMEN PELVIS W CONTRAST 2023-12-20 16:01:23 Desirae Easton [facility] CT ABDOMEN PELVIS W CONTRAST 2023-12-20 16:01:23 Desirae Easton [facility] CT ABDOMEN PELVIS W CONTRAST 2023-12-20 16:01:23 Desirae Easton [facility] CT ABDOMEN PELVIS W CONTRAST 2023-12-20 16:01:23 Desirae Easton [facility] DUPLEX VENOUS LEG LEFT - BY VASCULAR LAB 2023-12-20 15:50:58 JemmaDesirae lai [facility] DUPLEX VENOUS LEG LEFT - BY VASCULAR LAB 2023-12-20 15:50:58 Jemma, K Jazmin [facility] DUPLEX VENOUS LEG LEFT - BY VASCULAR LAB 2023-12-20 15:50:58 Jemma, K Jazmin [facility] DUPLEX VENOUS LEG LEFT - BY VASCULAR LAB 2023-12-20 15:50:58 Desirae Easton [facility] MAGNESIUM 2023-12-20 14:20:00 Roque [facility] THYROID STIMULATING HORMONE 2023-12-20 14:20:00 Roque [facility] COMP. METABOLIC PANEL ([id number]) 2023-12-20 14:20:00 Desirae Easton Jazmin [facility] CBC WITH DIFF 2023-12-20 14:20:00 Desirae Easton Jazmin [facility] FREE T3 2023-12-20 14:20:00 Ovclaude [facility] CBC WITH DIFF 2023-12-20 14:20:00 Desirae Easton Jazmin [facility] COMP. METABOLIC PANEL ([id number]) 2023-12-20 14:20:00 Desirae Easton [facility] MAGNESIUM 2023-12-20 14:20:00 Ovclaude [facility] THYROID STIMULATING HORMONE 2023-12-20 14:20:00 Roque [facility] FREE T3 2023-12-20 14:20:00 Roque [facility] MAGNESIUM 2023-12-20 14:20:00 Roque [facility] THYROID STIMULATING HORMONE 2023-12-20 14:20:00 Roque [facility] COMP. METABOLIC PANEL ([id number]) 2023-12-20 14:20:00 Desirae Easton [facility] CBC WITH DIFF 2023-12-20 14:20:00 Desirae Easton [facility] FREE T3 2023-12-20 14:20:00 Dayan Nevarez [facility] MAGNESIUM 2023-12-20 14:20:00 Roque [facility] THYROID STIMULATING HORMONE 2023-12-20 14:20:00 Roque [facility] COMP. METABOLIC PANEL ([id number]) 2023-12-20 14:20:00 Desirae Easton [facility] CBC WITH DIFF 2023-12-20 14:20:00 Desirae Easton [facility] FREE T3 2023-12-20 14:20[facility]-20 14:11:00 Desirae Easton [facility] URINE CULTURE 2023-12-20 14:11:00 JemmaDesirae lai [facility] URINALYSIS 2023-12-20 14:11:00 Jemma, K Jazmin [facility] URINE CULTURE 2023-12-20 14:11:00 Desirae Easton [facility] URINALYSIS 2023-12-20 14:11:00 Jemma, K Jazmin [facility] URINE CULTURE 2023-12-20 14:11:00 Desirae Easton [facility] URINALYSIS 2023-12-20 14:11:00 Jemma, K Jazmin [facility] URINE CULTURE 2023-12-20 14:11:00 Jemma, K Jazmin [facility] POCT URINALYSIS 2023-03-29 19:15:00 Jonatan Diez [facility] REFERRAL- REQUEST/RESPONSE 2023-03-28 06:01:00 Doctor Unassigned, [place] [facility] POCT URINALYSIS AUTO 2023-02-16 15:24:00 Jacky Almeida [facility] DISCLOSURE AND CONSENT, MEDI BEN AND SURGICAL PROCEDURES 2023-02-16 05:01:00 Doctor Unassigned, [place] [facility] CONSENT/REFUSAL FOR DIAGNOSI S AND TREATMENT 2023-02-02 15:11:45 Doctor Unassigned, [place] [facility] POCT URINALYSIS W/O SPECIFIC GRAVITY 2023-02-02 00:00:00 Jacky Almeida [facility] COLONOSCOPY 2023-01-23 14:20:00 Leroy Martel [facility] COLONOSCOPY (ENDO) 2023-01-23 14:01:49 Ginette Denton [facility] COLONOSCOPY (ENDO) 2023-01-23 14:01:49 Ginette Denton [facility] COLONOSCOPY (ENDO) 2023-01-23 14:01:49 Ginette Denton [facility] CBC WITHOUT DIFF 2023-01-23 13:51:00 Glen Carroll [facility] CBC WITHOUT DIFF 2023-01-23 13:51:00 Glen Carroll [facility] ASSIGNMENT OF BENEFITS 2023-01-23 12:34:48 Doctor Unassigned, [place] [facility] MAGNESIUM 2022-11-23 10:26:00 Oscar Madden [facility] BASIC METABOLIC PANEL (NA, K , CL, CO2, GLUCOSE, BUN, CREATININE, CA) 2022-11-23 10:26:00 Oscar Madden [facility] CBC WITH DIFF 2022-11-23 10:26:00 Oscar Madden [facility] FL SMALL BOWEL SERIES 2022-11-22 19:45:39 Sruthi Mckenna [facility] XR ABDOMEN 2 VW 2022-11-22 11:25:00 Yo Greer [facility] MAGNESIUM 2022-11-22 10:04:00 Yo Greer [facility] THYROID STIMULATING HORMONE 2022-11-22 10:04:00 Oscar Madden [facility] BASIC METABOLIC PANEL (NA, K , CL, CO2, GLUCOSE, BUN, CREATININE, CA) 2022-11-22 10:04:00 Yo Greer [facility] CBC WITH DIFF 2022-11-22 10:04:00 Yo Greer [facility] PROTHROMBIN TIME / INR 2022-11-22 10:04:00 Yo Greer [facility] ACTIVATED PARTIAL THRMPLAS RASHAD 2022-11-11 2 10:04:00 Yo Greer [facility] CT ABDOMEN PELVIS W CONTRAST 2022-11-21 22:28:55 Otilia Marquez [facility] HB ECG ROUTINE & RHYTHM STRIP 2022-11-21 19:13:01 Otilia Marquez [facility] LIPASE 2022-11-21 18:41:00 Otilia Marquez [facility] TROPONIN I 2022-11-21 18:41:00 Otilia Marquez [facility] COMP. METABOLIC PANEL ([id number]) 2022-11-21 18:41:00 Otilia Marquez [facility] CBC WITH DIFF 2022-11-21 18:41:00 Otilia Marquez [facility] URINALYSIS 2022-11-21 18:41:00 Otilia Marquez [facility] CONSENT/REFUSAL FOR DIAGNOSI S AND TREATMENT 2022-11-21 18:10:10 Doctor Unassigned, [place] [facility] DISCLOSURE AND CONSENT, MEDI BEN AND SURGICAL PROCEDURES 2022-11-04 05:01:00 Doctor Unassigned, [place] [facility] POCT URINALYSIS AUTO 2022-11-03 14:07:00 Jacky Almeida [facility] URINE CULTURE 2022-10-26 20:56:00 Jacky Almeida [facility] DISCLOSURE AND CONSENT, MEDI BEN AND SURGICAL PROCEDURES 2022-10-18 05:01:00 Doctor Unassigned, [place] [facility] DISCLOSURE AND CONSENT, MEDI BEN AND SURGICAL PROCEDURES 2022-10-18 05:01:00 Doctor Unassigned, [place] [facility] EXTERNAL PROVIDER RECORDS 2022-10-03 05:01:00 Doctor Unassigned, [place] [facility] REFERRAL- REQUEST/RESPONSE 2022-09-12 05:01:00 Doctor Unassigned, [place] [facility] BASIC METABOLIC PANEL (NA, K , CL, CO2, GLUCOSE, BUN, CREATININE, CA) 2022-05-18 14:48:00 Stewart Castaneda [facility] PHYSICIAN ORDERS 2022-05-18 06:01:00 Doctor Unassigned, [place] [facility] COLONOSCOPY 2022-04-21 13:27:00 Radha Pena [facility] COLONOSCOPY (ENDO) 2022-04-21 13:03:53 Larry Campbell [facility] COLONOSCOPY (ENDO) 2022-04-21 13:03:53 Larry Campbell [facility] DAY SURGERY - ADC 2022-04-21 06:01:00 Doctor Unassigned, [place] [facility] POCT URINALYSIS W/O SPECIFIC GRAVITY 2022-03-10 15:47:00 Jacky Almeida [facility] PATIENT QUESTIONNAIRE 2022-03-10 05:01:00 Doctor Unassigned, [place] [facility] [place] EXTERNAL PROVIDER RECORDS 2022-02-28 05:01:00 Doctor Unassigned, [place] [facility] [place] PHYSICIAN ORDERS 2022-02-16 05:01:00 Doctor Unassigned, [place] [facility] [place] BI SCREENING MAMMOGRAM BILATERAL 2014-10 19:36:00 Kristie Quinonez [facility] [place] HIGH RISK HPV 2014-09-16 23:10:00 Kristie Quinonez [facility] [place] CHIEF JUVENILE PROBATION OFFICER ORDER/REPORT PROCEDURE 2014-09-16 16:50:00 Kristie Quinonez [facility] [facility] - Delayed Radiation Injuries (Radiation cystitis, radiation colitis) [facility] XR chest 1 view [facility] Plan of Care Planned Activity Planned Date Details Comments Source Goal Plan of Care Note [code = 62284-4] Goal Plan of Care Note [code = 82851-8] Goal Plan of Care Note [code = 72538-8] Goal Plan of Care Note [code = 66442-7] Goal Plan of Care Note [code = 73109-3] Goal Plan of Care Note [code = 84733-5] Goal Plan of Care Note [code = 48461-5] Goal Plan of Care Note [code = 00284-1] Goal Plan of Care Note [code = 50962-2] Goal Plan of Care Note [code = 69108-7] Goal Plan of Care Note [code = 76969-1] Goal Plan of Care Note [code = 35612-1] Goal Plan of Care Note [code = 56248-7] Goal Plan of Care Note [code = 32642-7] Goal Plan of Care Note [code = 27223-6] Goal Plan of Care Note [code = 68521-5] Goal Plan of Care Note [code = 82084-3] Goal Plan of Care Note [code = 26351-5] Goal Plan of Care Note [code = 75002-9] Goal Plan of Care Note [code = 76517-9] Goal Plan of Care Note [code = 82779-9] Goal Plan of Care Note [code = 93850-7] Goal Plan of Care Note [code = 03278-0] Goal Plan of Care Note [code = 60823-0] Goal Plan of Care Note [code = 34582-6] Goal Plan of Care Note [code = 57263-8] Goal Plan of Care Note [code = 01929-6] Goal Plan of Care Note [code = 39658-7] Goal Plan of Care Note [code = 49584-8] Goal Plan of Care Note [code = 28797-4] Goal Plan of Care Note [code = 87629-6] Goal Plan of Care Note [code = 80914-4] Goal Plan of Care Note [code = 52029-1] Goal Plan of Care Note [code = 26520-3] Goal Plan of Care Note [code = 73814-5] Goal Plan of Care Note [code = 66543-8] Goal Plan of Care Note [code = 36138-5] Goal Plan of Care Note [code = 94312-4] Goal Plan of Care Note [code = 23072-9] Goal Plan of Care Note [code = 36695-5] Goal Plan of Care Note [code = 69853-1] Goal Plan of Care Note [code = 23320-9] Goal Plan of Care Note [code = 50385-9] Goal Plan of Care Note [code = 98912-5] Goal Plan of Care Note [code = 43709-6] Goal Plan of Care Note [code = 86729-0] Goal Plan of Care Note [code = 47797-2] Goal Plan of Care Note [code = 65239-0] Goal Plan of Care Note [code = 06641-5] Goal Plan of Care Note [code = 60282-3] Goal Plan of Care Note [code = 40826-9] Goal Plan of Care Note [code = 59073-1] Goal Plan of Care Note [code = 32769-8] Goal Plan of Care Note [code = 82351-5] Goal Plan of Care Note [code = 04467-4] Goal Plan of Care Note [code = 19244-6] Goal Plan of Care Note [code = 11799-9] Goal Plan of Care Note [code = 40323-3] Goal Plan of Care Note [code = 31741-9] Goal Plan of Care Note [code = 21124-4] Goal Plan of Care Note [code = 67139-8] Goal Plan of Care Note [code = 89347-0] Goal Plan of Care Note [code = 25373-4] Goal Plan of Care Note [code = 74694-8] Goal Plan of Care Note [code = 94359-3] Goal Plan of Care Note [code = 17639-0] Goal Plan of Care Note [code = 93436-2] Goal Plan of Care Note [code = 50803-8] Goal Plan of Care Note [code = 21983-3] Goal Plan of Care Note [code = 45414-0] Goal Plan of Care Note [code = 41655-1] Goal Plan of Care Note [code = 88119-5] Goal Plan of Care Note [code = 74942-6] Goal Plan of Care Note [code = 37380-3] Goal Plan of Care Note [code = 38504-5] Goal Plan of Care Note [code = 85445-4] Goal Plan of Care Note [code = 66970-5] Goal Plan of Care Note [code = 00478-2] Goal Plan of Care Note [code = 32026-7] Goal Plan of Care Note [code = 66777-7] Goal Plan of Care Note [code = 64983-8] Goal Plan of Care Note [code = 81319-2] Goal Plan of Care Note [code = 38426-0] Goal Plan of Care Note [code = 74047-8] Goal Plan of Care Note [code = 17302-8] Goal Plan of Care Note [code = 18435-6] Goal Plan of Care Note [code = 51755-1] Goal Plan of Care Note [code = 35790-8] Goal Plan of Care Note [code = 07562-2] Goal Plan of Care Note [code = 91891-8] Goal Plan of Care Note [code = 94904-6] Goal Plan of Care Note [code = 99759-3] Goal Plan of Care Note [code = 03707-1] Goal Plan of Care Note [code = 27261-2] Goal Plan of Care Note [code = 96045-8] Goal Plan of Care Note [code = 92169-9] Goal Plan of Care Note [code = 31629-6] Goal Plan of Care Note [code = 11014-4] Goal Plan of Care Note [code = 38339-8] Goal Plan of Care Note [code = 97429-7] Goal Plan of Care Note [code = 64502-6] Goal Plan of Care Note [code = 72445-7] Goal Plan of Care Note [code = 74579-0] Goal Plan of Care Note [code = 53811-3] Goal Plan of Care Note [code = 67668-7] Goal Plan of Care Note [code = 55679-5] Goal Plan of Care Note [code = 55045-5] Goal Plan of Care Note [code = 85392-9] Goal Plan of Care Note [code = 44522-2] Goal Plan of Care Note [code = 11179-3] Goal Plan of Care Note [code = 52369-6] Goal Plan of Care Note [code = 97695-0] Goal Plan of Care Note [code = 17420-6] Goal Plan of Care Note [code = 06496-1] Goal Plan of Care Note [code = 96051-1] Goal Plan of Care Note [code = 03768-4] Goal Plan of Care Note [code = 29172-9] Goal Plan of Care Note [code = 94180-8] Goal Plan of Care Note [code = 78452-5] Goal Plan of Care Note [code = 43476-5] Goal Plan of Care Note [code = 89686-9] Goal Plan of Care Note [code = 30255-3] Goal Plan of Care Note [code = 48180-6] Goal Plan of Care Note [code = 16333-8] Goal Plan of Care Note [code = 28542-9] Goal Plan of Care Note [code = 94437-6] Goal Plan of Care Note [code = 96527-5] Goal Plan of Care Note [code = 65607-4] Goal Plan of Care Note [code = 45196-6] Goal Plan of Care Note [code = 62028-4] Goal Plan of Care Note [code = 40375-0] Goal Plan of Care Note [code = 40941-2] Goal Plan of Care Note [code = 19359-0] Goal Plan of Care Note [code = 43325-3] Goal Plan of Care Note [code = 68745-3] Goal Plan of Care Note [code = 95256-5] Goal Plan of Care Note [code = 75826-2] Goal Plan of Care Note [code = 58712-0] Goal Plan of Care Note [code = 99403-2] Goal Plan of Care Note [code = 80800-7] Goal Plan of Care Note [code = 46116-6] Goal Plan of Care Note [code = 04718-6] Goal Plan of Care Note [code = 36874-6] Goal Plan of Care Note [code = 80096-3] Goal Plan of Care Note [code = 76271-3] Goal Plan of Care Note [code = 52538-3] Goal Plan of Care Note [code = 47361-5] Goal Plan of Care Note [code = 13329-2] Goal Plan of Care Note [code = 53214-0] Goal Plan of Care Note [code = 29165-8] Goal Plan of Care Note [code = 26932-4] Goal Plan of Care Note [code = 65630-1] Goal Plan of Care Note [code = 44254-0] Goal Plan of Care Note [code = 42428-6] Goal Plan of Care Note [code = 28599-0] Goal Plan of Care Note [code = 32470-8] Goal Plan of Care Note [code = 92899-6] Goal Plan of Care Note [code = 29557-8] Goal Plan of Care Note [code = 83495-9] Goal Plan of Care Note [code = 02640-2] Goal Plan of Care Note [code = 90615-4] Goal Plan of Care Note [code = 66024-1] Goal Plan of Care Note [code = 87880-1] Goal Plan of Care Note [code = 22506-9] Goal Plan of Care Note [code = 58384-6] Goal Plan of Care Note [code = 59716-7] Goal Plan of Care Note [code = 19014-9] Goal Plan of Care Note [code = 80208-5] Goal Plan of Care Note [code = 26633-2] Goal Plan of Care Note [code = 20710-7] Goal Plan of Care Note [code = 27746-9] Goal Plan of Care Note [code = 95245-9] Goal Plan of Care Note [code = 08929-0] Goal Plan of Care Note [code = 61264-8] Goal Plan of Care Note [code = 41492-0] Goal Plan of Care Note [code = 80997-5] Goal Plan of Care Note [code = 08027-0] Goal Plan of Care Note [code = 07178-4] Goal Plan of Care Note [code = 54676-9] Goal Plan of Care Note [code = 42532-2] Goal Plan of Care Note [code = 29552-0] Goal Plan of Care Note [code = 33125-5] Goal Plan of Care Note [code = 88365-8] Goal Plan of Care Note [code = 78108-4] Goal Plan of Care Note [code = 49270-4] Goal Plan of Care Note [code = 53115-5] Goal Plan of Care Note [code = 96804-3] Goal Plan of Care Note [code = 69879-6] Goal Plan of Care Note [code = 41061-7] Goal Plan of Care Note [code = 26640-1] Goal Plan of Care Note [code = 22422-5] Goal Plan of Care Note [code = 26601-0] Goal Plan of Care Note [code = 24301-0] Goal Plan of Care Note [code = 32134-0] Goal Plan of Care Note [code = 83816-7] Encounters Start Date/Time End Date/Time Encounter Type Admission Type Attending Clinicians Care Facility Care Department Encounter ID Source 2024-06-18 08:00:00 2024-06-18 08:00:00 Outpatient NAHOMI MURRAY [facility] [id number] [facility] 2024-06-17 11:30:00 2024-06-17 11:45:00 Clinical Research Administrator Visit [facility] Jennifer Jernigan [facility] ([facility]) 1.20.114 350.1.13.10 4.2.7.2.686 [id number] [facility] 2024-06-17 11:30:00 2024-06-17 11:30:00 Outpatient R JENNIFER JERNIGAN [facility] [id number] [facility] 2024-06-10 09:44:56 2024-06-10 23:59:00 Outpatient R RADIOLOGY [facility] [id number] [facility] 2024-06-10 09:44:56 2024-06-10 23:59:00 Hospital Encounter Radiology Radiology [facility] 1.20.114 350.1.13.10 4.2.7.2.686 [id number] [facility] 2024-06-10 08:48:21 2024-06-10 08:48:21 Outpatient SFA SFA [id number] Jonatan Barber Landy 2024-06-09 10:29:32 2024-06-09 10:29:32 Outpatient SFA SFA [id number] Jonatan Eason 2024-05-02 00:00:00 2024-06-07 18:18:31 Patient Secure Msg Doctor Unassigned, [place] Doctor Unassigned, [place] [facility] ([facility]) 1.20.114 350.1.13.10 4.2.7.2.686 [id number] [facility] 2024-05-02 00:00:00 2024-06-02 23:52:15 Telephone Luke Akhtar Richard [facility] 1.2840.114 350.1.13.70 8.2.7.2.686 [id number] Lory thurston [facility] 2024-06-02 15:58:43 2024-06-02 15:58:43 Outpatient SFA SFA [id number] Jonatan Eason 2024-06-02 00:00:00 2024-06-02 00:00:00 Outpatient Visit SFA [id number] Jonatan Eason 2024-05-30 13:00:57 2024-05-30 13:00:57 Outpatient SFA SFA [id number] Jonatan Eason 2024-05-30 00:00:00 2024-05-30 00:00:00 Outpatient Visit SFA [id number] Jonatan Eason 2024-05-24 00:00:00 2024-05-24 22:58:00 Case Management Nahomi Bueno [facility] ([facility]) 1..840.114 350.1.13.10 4.2.7.2.686 [id number] [facility] 2024-05-15 10:20:24 2024-05-15 10:20:24 Outpatient SFA [facility] [id number] Jonatan Eason 2024-05-13 09:41:33 2024-05-13 09:41:33 Outpatient SFA [facility] [id number] Jonatan Eason 2024-05-12 16:31:20 2024-05-12 16:31:20 Outpatient SFA [facility] [id number] Jonatan Eason 2024-05-12 00:00:00 2024-05-12 00:00:00 Outpatient Visit SFA [id number] Jonatan Eason 2024-05-01 00:00:00 2024-05-01 10:19:55 Telephone Jonatan Diez [facility] 1..840.114 350.1.13.10 4.2.7.2.686 [id number] [facility] 2024-04-25 00:00:00 2024-04-29 11:51:34 Telephone Jonatan Diez [facility] 1.2.840.114 350.1.13.10 4.2.7.2.686 [id number] [facility] 2024-04-25 23:53:00 2024-04-28 17:44:00 Inpatient X AGNES JUSTINO [facility] [id number] [facility] 2024-04-25 23:53:00 2024-04-28 17:44:00 Hospital Encounter Nica Hoskins, Alpeshjomar Alarcon [facility] ([place]) 1.2.840.114 350.1.13.10 4.2.7.2.686 [id number] [facility] 2024-04-25 11:30:00 2024-04-25 12:00:00 Office Visit Mj Solitario [facility] ([facility]) 1.2.840.114 350.1.13.10 4.2.7.2.686 [id number] [facility] 2024-04-25 11:30:00 2024-04-25 11:30:00 Outpatient R SOLITARIO MJ [facility] [id number] [facility] 2024-04-24 15:30:26 2024-04-24 15:30:26 Outpatient SFA [facility] [id number] Jonatan Eason 2024-04-22 09:18:07 2024-04-22 23:59:00 [facility].114 350.1.13.70 8.2.7.2.686 [id number] Lory Amado 2024-04-22 09:18:07 2024-04-22 23:59:00 Outpatient Elective BERTIN RODRÍGUEZ [facility] [id number] [facility] 2024-04-22 10:00:00 2024-04-22 10:40:00 External Contact Bertin Rodríguez EXT MSRDP LOCATION 1.114 350.1.13.58 9.2.7.2.686 [id number] [facility] 2024-04-21 16:04:17 2024-04-21 16:04:17 Outpatient SFA [facility] [id number] Jonatan Eason 2024-04-21 00:00:00 2024-04-21 00:00:00 Outpatient Visit [facility] [id number] Jonatan Barber Landy 2024-03-19 00:00:00 2024-04-19 18:18:53 Patient Secure Msg Doctor Unassigned, [place] Doctor Unassigned, [place] [facility] ([facility]) 1..114 350.1.13.10 4.2.7.2.686 [id number] [facility] 2024-04-17 00:00:00 2024-04-17 00:00:00 Outpatient Visit [facility] [id number] Jonatan Eason 2024-04-14 15:39:20 2024-04-14 15:39:20 Outpatient SFA [facility] [id number] Jonatan Barber Landy 2024-04-14 00:00:00 2024-04-14 00:00:00 Outpatient Visit [facility] [id number] Jonatan Eason 2024-04-08 01:15:00 2024-04-09 20:50:00 Inpatient X DAYAN NEVAREZ [facility] [id number] [facility] 2024-04-08 01:15:00 2024-04-09 20:50:00 Hospital Encounter Brandon Maciel, Dayan G[facility] 1..114 350.1.13.10 4.2.7.2.686 [id number] [facility] 2024-04-01 16:14:15 2024-04-01 16:14:15 Outpatient SFA [facility] [id number] Jonatan Eason 2024-04-01 00:00:00 2024-04-01 00:00:00 Outpatient Visit [facility] [id number] Jonatan Eason 2024-03-28 16:00:11 2024-03-28 16:00:11 Outpatient SFA [facility] [id number] Jonatan Barber Landy 2024-03-28 11:30:00 2024-03-28 11:30:00 Outpatient MJ CHRISTENSEN [facility] [id number] [facility] 2024-03-28 00:00:00 2024-03-28 00:00:00 Outpatient Visit [facility] [id number] [id number]-a [id number] Jonatan Eason 2024-03-17 16:30:00 2024-03-17 16:30:00 Outpatient R JONATAN DIEZ [facility] [id number] [facility] 2024-03-17 00:00:00 2024-03-17 12:31:52 Transition of Care Gayle Crowe Miatha R [address] ..840.114 350.1.13.10 4.2.7.2.686 [id number] [facility] 2024-03-10 16:05:00 2024-03-14 10:51:00 Inpatient X DAYAN NEVAREZ [facility] [id number] [facility] 2024-03-10 16:05:00 2024-03-14 10:51:00 Hospital Encounter Nica Hoskins Jelani [facility] 1..840.114 350.1.13.10 4.2.7.2.686 [id number] [facility] 2024-02-15 08:34:23 2024-02-15 08:34:23 Outpatient [facility] [place] [id number] Jonatan Eason 2024-02-13 15:28:12 2024-02-13 15:28:12 Outpatient SFA [place] [id number] Jonatan Eason 2024-02-12 14:46:01 2024-02-12 14:46:01 Outpatient [facility] 1001 Jonatan Eason 2024-02-12 00:00:00 2024-02-12 00:00:00 Outpatient Visit [facility] [id number] [id number] Jonatan Eason 2024-02-11 08:08:08 2024-02-11 08:08:08 Outpatient [facility]FA [place] [id number] Jonatan Barber Nye 2024-01-08 00:00:00 2024-02-09 18:21:54 Patient Secure Msg Doctor Unassigned, [place] Doctor Unassigned, [place] [facility]) 1.2.840.114 350.1.13.10 4.2.7.2.686 [id number] [facility] 2024-02-08 18:39:39 2024-02-08 18:39:39 Outpatient SFA [facility] [id number] Jonatan Barber Nye 2024-02-08 00:00:00 2024-02-08 00:00:00 Outpatient Visit [facility] [id number] [id number] Jonatan Barber Nye 2024-02-07 00:00:00 2024-02-07 10:19:02 Telephone Bertin Adame [facility] ([facility]) 1.2.840.114 350.1.13.10 4.2.7.2.686 [id number] [facility] 2024-02-06 16:20:00 2024-02-06 16:20:00 Outpatient PUNEET ALEXANDER PATRICK [facility] [id number] [facility] 2024-02-06 00:00:00 2024-02-06 00:00:00 Outpatient R PUNEET RANDOLPH PATRICK [facility] [id number] [facility] 2024-02-02 23:26:00 2024-02-05 17:57:00 Hospital Encounter Justyn Garrison, Delmar Norman [facility] ([facility]) 1.2.840.114 350.1.13.10 4.2.7.2.686 [id number] [facility] 2024-02-04 12:40:00 2024-02-04 14:18:00 Surgery Bertin Adame [facility] 1.2.840.114 350.1.13.10 4.2.7.2.686 [id number] [facility] 2024-02-02 08:57:46 2024-02-02 08:57:46 Outpatient SFA SFA [id number] Jonatan Eason 2024-02-02 00:00:00 2024-02-02 00:00:00 Outpatient Visit [facility] [id number] Jonatan Eason 2024-01-25 12:00:00 2024-01-25 12:15:00 Clinical Research Administrator Visit Draw, [facility] Jonatan Diez Draw, [facility] 1..840.114 350.1.13.10 4.2.7.2.686 [id number] [facility] 2024-01-25 11:45:00 2024-01-25 12:00:00 Office Visit Jonatan Diez [facility] 1.2.840.114 350.1.13.10 4.2.7.2.686 [id number] [facility] 2024-01-25 11:45:00 2024-01-25 11:09:34 Outpatient Jason DIEZ JONATAN [facility] [id number] [facility] 2023-12-20 08:49:00 2024-01-04 22:43:00 Inpatient Jonh RANDOLPH PUNEET PECK [facility] [id number] [facility] 2023-12-20 08:49:00 2024-01-04 22:43:00 Hospital Encounter Desirae Easton, Dayan Adame, Bertin Randolph, Bertin Braxton 1.2.840.1 87013.1.1 3.104.2.7 .3.379234 .8 [id number] [facility] 2024-01-03 11:55:00 2024-01-03 14:50:00 Anesthesia Event Elmer Egan Edgar 1.2.840.1 62011.1.1 3.104.2.7 .3.967217 .8 [id number] [facility] 2024-01-03 00:00:00 2024-01-03 00:00:00 Travel 1.2.840.1 11496.1.1 3.104.2.7 .3.475873 .8 1.2.840.114 350.1.13.10 4.2.7.3.698 084.8 [id number] [facility] 2023-12-31 12:56:00 2023-12-31 19:19:00 Anesthesia Event Rachel Lange Adam Nabeel [facility] ([facility]) 1.2.840.114 350.1.13.10 4.2.7.2.686 [id number] [facility] 2023-12-28 00:00:00 2023-12-28 00:00:00 Orders Only Doctor Unassigned, [place] 1.2.840.1 41718.1.1 3.104.2.7 .3.117023 .8 [id number] [facility] 2023-12-27 10:00:00 2023-12-27 10:33:00 Surgery Mj Solitario 1.2.840.1 25498.1.1 3.104.2.7 .3.144377 .8 [id number] [facility] 2023-12-27 10:02:00 2023-12-27 10:19:00 Anesthesia Event Len Elizabeth 1.2.840.1 69449.1.1 3.104.2.7 .3.086721 .8 [id number] [facility] 2023-12-27 07:40:22 2023-12-27 07:40:22 Anesthesia Event Len Elizabeth 1.2.840.1 73644.1.1 3.104.2.7 .3.337612 .8 [id number] [facility] 2023-12-22 09:41:00 2023-12-22 11:16:00 Surgery Bertin Adame 1.2.840.1 36633.1.1 3.104.2.7 .3.610832 .8 [id number] [facility] 2023-12-22 09:00:00 2023-12-22 10:38:00 Anesthesia Event Kwame Bullock Cassidy 1.2.840.1 96549.1.1 3.104.2.7 .3.994543 .8 [id number] [facility] 2023-12-20 00:00:00 2023-12-20 00:00:00 Travel 1.2.840.1 46987.1.1 3.104.2.7 .3.028465 .8 1.2.840.114 350.1.13.10 4.2.7.3.698 084.8 [id number] [facility] 2023-06-27 15:21:02 2023-06-27 15:21:02 Outpatient SFA [facility] [id number] Jonatan Eason 2023-05-21 13:57:27 2023-05-21 13:57:27 Outpatient [facility] [id number] Jonatan Eason 2023-03-30 00:00:00 2023-03-30 00:00:00 Patient Secure Msg Doctor Unassigned, [place] [facility] 1.2.840.114 350.1.13.10 4.2.7.2.686 [id number] [id number] [facility] 2023-03-29 13:00:00 2023-03-29 15:17:26 Outpatient JONATAN MONTIEL [facility] [id number] [facility] 2023-03-29 13:00:00 2023-03-29 14:00:00 Office Visit Jonatan Diez 2, Nelly Mda Procedure [facility] 1.2.840.114 350.1.13.10 4.2.7.2.686 [id number] [facility] 2023-03-28 00:00:00 2023-03-28 00:00:00 Orders Only Doctor Unassigned, [place] [facility] 1.2.840.114 350.1.13.10 4.2.7.2.686 [id number] [facility] 2023-03-27 13:05:56 2023-03-27 13:05:56 Outpatient [facility] [id number] Jonatan Eason 2023-03-13 00:00:00 2023-03-13 00:00:00 Outpatient GC_GCBZW_Ka diyala_S PRIV PRIV [id number] [facility] 2023-03-12 15:00:00 2023-03-12 15:00:00 Outpatient JONATAN MONTIEL [facility] [id number] [facility] 2023-03-12 00:00:00 2023-03-12 00:00:00 Outpatient GC_GCBZW_Ka diyala_S PRIV PRIV [id number] [facility] 2023-02-28 15:31:28 2023-02-28 15:31:28 Outpatient [facility] [id number] Jonatan Eason 2023-02-16 10:00:00 2023-02-16 11:39:04 Outpatient JACKY VALENTIN JUAN PABLO JACKY [facility] [id number] [facility] 2023-02-16 10:00:00 2023-02-16 11:39:04 Office Visit Jacky Almeida [facility] 1.2.840.114 350.1.13.10 4.2.7.2.686 [id number] [facility] 2023-02-16 00:00:00 2023-02-16 00:00:00 Orders Only Doctor Unassigned, [place] [facility] 1.2.840.114 350.1.13.10 4.2.7.2.686 [id number] [facility] 2023-02-16 00:00:00 2023-02-16 00:00:00 Telephone Jonatan Diez [facility] 1.2.840.114 350.1.13.10 4.2.7.2.686 [id number] [facility] 2023-02-02 10:30:00 2023-02-02 11:28:17 Outpatient R JACKY ALMEIDA [facility] [id number] [facility] 2023-02-02 10:30:00 2023-02-02 11:28:17 Office Visit Jacky Almeida [facility] 1.2.840.114 350.1.13.10 4.2.7.2.686 [id number] [facility] 2023-02-02 00:00:00 2023-02-02 00:00:00 Orders Only Doctor Unassigned, [place] [facility] 1.2.840.114 350.1.13.10 4.2.7.2.686 [id number] [facility] 2023-01-25 00:00:00 2023-01-25 00:00:00 Patient Secure Msg [facility] [place] [facility] 1.2.840.114 350.1.13.10 4.2.7.2.686 [id number] [facility] 2023-01-23 07:34:00 2023-01-23 10:59:00 Outpatient R [facility] MARIA ESTHER [id number] [facility] 2023-01-23 07:34:00 2023-01-23 10:59:00 Hospital Encounter [facility] ([facility]) 1.2.840.114 350.1.13.10 4.2.7.2.686 [id number] 049 [id number] [facility] 2023-01-23 09:30:00 2023-01-23 10:10:00 Anesthesia Event Rasheeda Conde, [facility] 1.2.840.114 350.1.13.10 4.2.7.2.686 [id number] [id number] [facility] 2023-01-23 09:00:00 2023-01-23 09:45:00 Surgery [facility] 1.2.840.114 350.1.13.10 4.2.7.2.686 [id number] [facility] 2023-01-23 00:00:00 2023-01-23 00:00:00 Orders Only Doctor Unassigned, [place] [facility] 1.2.840.114 350.1.13.10 4.2.7.2.686 [id number] [facility] 2023-01-19 00:00:00 2023-01-19 00:00:00 Telephone [facility] 1.2840.114 350.1.13.10 4.2.7.2.686 [id number] 072 [id number] [facility] 2023-01-18 00:00:00 2023-01-18 00:00:00 Patient Secure Msg Doctor Unassigned, [place] [facility] 1.20.114 350.1.13.10 4.2.7.2.686 [id number] [facility] 2022-12-21 09:14:46 2022-12-21 09:14:46 Outpatient [facility] [id number] Jonatan Barber Nye 2022-12-20 14:17:51 2022-12-20 14:17:51 Outpatient [facility] [id number] Jonatan Barber Nye 2022-12-05 00:00:00 2022-12-05 00:00:00 Patient Secure Msg Doctor Unassigned, [place] [facility] 1.0.114 350.1.13.10 4.2.7.2.686 [id number] [id number] [facility] 2022-11-24 00:00:00 2022-11-24 00:00:00 Transition of Care Tressa Hedrick 1.0.114 350.1.13.10 4.2.7.2.686 [id number] [facility] 2022-11-21 13:22:00 2022-11-23 15:29:00 Inpatient X YO [facility] MARIA ESTHER [id number] [facility] 2022-11-21 13:22:00 2022-11-23 15:29:00 Hospital Encounter Otilia Marquez Mohammad A. [facility] 1.0.114 350.1.13.10 4.2.7.2.686 [id number] [facility] 2022-11-04 00:00:00 2022-11-04 00:00:00 Orders Only Doctor Unassigned, [place] [facility] 1..840.114 350.1.13.10 4.2.7.2.686 [id number] [id number] [facility] 2022-11-03 09:00:00 2022-11-03 10:27:56 [facility] [id number] 2022-11-03 09:00:00 2022-11-03 10:27:56 Office Visit Juan Pablo [facility] BUILDING 1..840.114 350.1.13.10 4.2.7.2.686 [id number] [facility] 2022-10-27 13:00:00 2022-10-27 13:00:00 Outpatient [facility] [id number] [facility] 2022-10-26 15:00:00 2022-10-26 16:02:54 Clinical Research Administrator Visit Lab, Terry Almeida [facility] 1..840.114 350.1.13.10 4.2.7.2.686 [id number] [facility] 2022-10-26 15:00:00 2022-10-26 15:00:00 Outpatient R JACKY ALMEIDA JUAN PABLO [facility] [id number] [facility] 2022-10-26 00:00:00 2022-10-26 00:00:00 [facility] 1..840.114 350.1.13.10 4.2.7.2.686 [id number] 098 [id number] [facility] 2022-10-20 00:00:00 2022-10-20 00:00:00 Telephone LeighanngayleEdward preston [facility] 1.2.840.114 350.1.13.10 4.2.7.2.686 [id number] [facility] 2022-10-17 11:30:00 2022-10-17 11:55:40 Outpatient KENNY BILLY [facility] [id number] [facility] 2022-10-17 11:30:00 2022-10-17 11:55:40 Office Visit Krishna RamírezKenny Briscoe [facility] 1..840.114 350.1.13.10 4.2.7.2.686 [id number] [facility] 2022-10-10 10:00:00 2022-10-10 10:00:00 Outpatient KENNY BILLY [facility] [id number] [facility] 2022-10-04 09:00:00 2022-10-04 09:34:43 Outpatient JACKY VALENTIN ELISHA [facility] [id number] [facility] 2022-10-03 00:00:00 2022-10-03 00:00:00 Orders Only Doctor Unassigned, [place] [facility] 1.840.114 350.1.13.10 4.2.7.2.686 [id number] [id number] [facility] 2022-09-13 15:48:21 2022-09-13 15:48:21 Outpatient [facility] [id number] Jonatan F Landy 2022-09-12 16:36:38 2022-09-12 16:36:38 Outpatient [facility] [id number] Jonatan F Landy 2022-09-12 00:00:00 2022-09-12 00:00:00 Orders Only Doctor Unassigned, [place] [facility] 1.2.840.114 350.1.13.10 4.2.7.2.686 [id number] [id number] [facility] 2022-07-13 08:30:00 2022-07-13 08:30:00 Outpatient RADHA SEAMAN [facility] [id number] [facility] 2022-05-27 11:11:32 2022-05-27 11:11:32 Outpatient [facility] [id number] Jonatan Barber Landy 2022-05-26 14:06:08 2022-05-26 14:06:08 Outpatient [facility] [id number] Jonatan Barber Nye 2022-05-23 08:20:19 2022-05-23 08:20:19 Outpatient [facility] [id number] Jonatan Barber Nye 2022-05-22 14:36:00 2022-05-22 14:36:00 Outpatient [place] [id number] Jonatan Barber Nye 2022-05-22 00:00:00 2022-05-22 00:00:00 Outpatient Visit [id number] -[id number] 4l6-2dv6-j [id number] [id number] 2022-05-18 09:15:00 2022-05-18 09:30:00 Clinical Research Administrator Visit Pob, Adc Lab Vishnu Leonel Stewart [facility] 1.840.114 350.1.13.10 4.2.7.2.686 [id number] [facility] 2022-05-18 09:15:00 2022-05-18 09:15:00 Outpatient STEWART WHITNEY STEWART [facility] [id number] [facility] 2022-05-18 00:00:00 2022-05-18 00:00:00 Orders Only Doctor Unassigned, [place] [facility] .840.114 350.1.13.10 4.2.7.2.686 [id number] [id number] [facility] 2022-05-12 00:00:00 2022-05-12 00:00:00 Telephone BeckyRadha [facility] 1.840.114 350.1.13.10 4.2.7.2.686 [id number] [facility] 2022-04-30 00:00:00 2022-04-30 00:00:00 Patient Secure Msg Doctor Unassigned, [place] [facility] 1.84.114 350.1.13.10 4.2.7.2.686 [id number] [facility] 2022-04-28 13:00:00 2022-04-28 13:27:32 Outpatient R RADHA PENA [facility] [id number] [facility] 2022-04-21 07:00:00 2022-04-21 09:20:00 Outpatient R RADHA PENA [facility] EM[facility] [id number] [facility] 2022-04-21 07:00:00 2022-04-21 09:20:00 Hospital Encounter Becky [facility] [place] 1.840.114 350.1.13.10 4.2.7.2.686 [id number] [facility] 2022-04-21 07:15:00 2022-04-21 08:23:00 Surgery Becky [facility] [place] 1..840.114 350.1.13.10 4.2.7.2.686 [id number] [facility] 2022-04-21 00:00:00 2022-04-21 00:00:00 Orders Only Doctor Unassigned, [place] [facility] 1..840.114 350.1.13.10 4.2.7.2.686 [id number] [id number] [facility] 2022-03-24 14:30:00 2022-03-24 15:24:40 Outpatient R RADHA PENA [facility] [id number] [facility] 2022-03-21 00:00:00 2022-03-21 00:00:00 Patient Secure Msg Doctor Unassigned, [place] [facility] 1..114 350.1.13.10 4.2.7.2.686 [id number] [facility] 2022-03-16 16:06:08 2022-03-16 16:06:08 Outpatient [facility] [id number] Jonatan Barber Nye 2022-03-13 16:17:59 2022-03-13 16:17:59 Outpatient [facility] [id number] Jonatan Eason 2022-03-13 00:00:00 2022-03-13 00:00:00 Outpatient Visit [id number] -[id number]-e3i [id number] x32-0711-8 s0d-j8dok3 b15b61 2022-03-10 09:30:00 2022-03-10 10:18:42 Outpatient R JACKY ALMEIDA [facility] [id number] [facility] 2022-03-10 09:30:00 2022-03-10 10:18:42 Office Visit Jacky Almeida [facility] 1.840.114 350.1.13.10 4.2.7.2.686 [id number] [facility] 2022-03-10 00:00:00 2022-03-10 00:00:00 Orders Only Doctor Unassigned, [place] [facility] ..114 350.1.13.10 4.2.7.2.686 [id number] [id number] [facility] 2022-03-09 15:00:00 2022-03-09 15:20:00 Office Visit Cihco Sotelo [facility] 1.84.114 350.1.13.10 4.2.7.2.686 [id number] [facility] 2022-03-09 15:00:00 2022-03-09 15:00:00 Outpatient CHICO CHAUDHRY [facility] [id number] [facility] 2022-03-03 00:00:00 2022-03-03 00:00:00 Patient Secure Msg Doctor Unassigned, [place] [facility] 1..114 350.1.13.10 4.2.7.2.686 [id number] [facility] 2022-02-28 00:00:00 2022-02-28 00:00:00 Orders Only Doctor Unassigned, [place] [facility] 1.84.114 350.1.13.10 4.2.7.2.686 [id number] [facility] 2022-02-27 16:44:56 2022-02-27 16:44:56 Outpatient [facility] [id number] Jonatan Barber Landy 2022-02-24 14:31:28 2022-02-24 14:31:28 Outpatient [facility] [id number] Jonatan Eason 2022-02-24 00:00:00 2022-02-24 00:00:00 Outpatient Visit [id number]-[id number] [id number] 2022-02-16 17:00:00 2022-02-16 17:15:00 Clinical Research Administrator Visit Pob, Adc Lab Danny Contreras [facility] 1.840.114 350.1.13.10 4.2.7.2.686 [id number] [facility] 2022-02-16 17:00:00 2022-02-16 17:00:00 Outpatient DANNY RILEY [facility] [id number] [facility] 2022-02-16 00:00:00 2022-02-16 00:00:00 Orders Only Doctor Unassigned, [place] [facility] 1..840.114 350.1.13.10 4.2.7.2.686 [id number] [id number] [facility] 2022-02-13 08:45:28 2022-02-13 08:45:28 Outpatient [facility] [id number] Jonatan Eason 2022-02-13 00:00:00 2022-02-13 00:00:00 Outpatient Visit [id number] [id number] -[id number] [id number]-1 [id number] 6383-09-28 00:00:00 2022-02-08 00:00:00 [facility] 1..840.114 350.1.13.10 4.2.7.2.686 [id number] [facility] 2022-02-06 15:00:00 2022-02-06 23:59:00 [facility] [id number] [facility] 2022-02-06 15:00:00 2022-02-06 15:00:00 Out[facility] [id number] [facility] 2022-02-03 00:00:00 2022-02-03 00:00:00 Patient Secure Msg Doctor Unassigned, [place] [facility] 1..840.114 350.1.13.10 4.2.7.2.686 [id number] [facility] 2022-01-23 15:20:00 2022-01-23 15:33:11 Outpatient [facility] [id number] [facility] 2022-01-23 15:20:00 2022-01-23 15:33:11 [facility] 1.2.840.114 350.1.13.10 4.2.7.2.686 [id number] [facility] 2022-01-23 15:20:00 2022-01-23 15:33:11 Outpatient R SEVERO SOTELOYOAANOLAYINKA [facility] [id number] [facility] 2022-01-23 00:00:00 2022-01-23 00:00:00 Orders Only Doctor Unassigned, [place] [address].2.840.114 350.1.13.10 4.2.7.2.686 [id number] [id number] [facility] 2022-01-10 00:00:00 2022-01-10 00:00:00 Orders Only Doctor Unassigned, [place] [address].840.114 350.1.13.10 4.2.7.2.686 [id number] [id number] [facility] 2021-12-26 00:00:00 2021-12-26 00:00:00 Outpatient Visit [id number] -dg7w-20v [id number] 1j1-8n15-a [id number]-02e318 [id number] 2021-12-06 00:00:00 2021-12-06 00:00:00 Orders Only Doctor Unassigned, [place] [address].2.840.114 350.1.13.10 4.2.7.2.686 [id number] [id number] [facility] 2021-11-30 00:00:00 2021-11-30 00:00:00 Outpatient Visit [id number] [id number] -5f4y-3f5 [id number] 0v7-21ix-6 c5k-5y9x93 [id number] 2021-11-21 00:00:00 2021-11-21 00:00:00 Outpatient Visit [id number] h084-0gq5 -c46n-648 [id number]-k 421-4ee7-a [id number]-913f62 988dde 2021-11-09 00:00:00 2021-11-09 00:00:00 Orders Only Doctor Unassigned, [place] [facility] 1.2840.114 350.1.13.10 4.2.7.2.686 [id number] [id number] [facility] 2021-09-28 18:18:00 2021-09-28 21:46:00 Emergency Jordan Otero [facility] 1.0.114 350.1.13.10 4.2.7.2.686 [id number] [facility] 2021-09-28 18:18:00 2021-09-28 21:46:00 Emergency X JORDAN [facility] ERT [id number] [facility] 2021-03-18 17:08:00 2021-03-18 20:24:00 Emergency X [facility] E[facility] [id number] [facility] 2021-03-18 17:08:00 2021-03-18 20:24:00 Emergency LarryNica eduardo Wilmar [facility] 1..114 350.1.13.10 4.2.7.2.686 [id number] [facility] 2021-02-02 11:53:00 2021-02-02 11:53:00 Emergency [facility] E[facility] [id number] [facility] 2020-04-04 15:28:00 2020-04-04 17:20:00 Emergency SabrinaLeonidas ying [facility] 1.840.114 350.1.13.10 4.2.7.2.686 [id number] [facility] 2020-04-04 15:15:00 2020-04-04 15:15:00 Macey X [facility] ERT [id number] [facility] Results Test Description Test Time Test Comments Results Result Co mments Source IRON BINDING CAPACITY AND IRON AND % [id number] 06:51:50* Test Item Value Reference Range Interpretation Comme nts IRON, SERUM (test code = 2221) 36 UG/DL 37-145 L UNSATURATED IBC (test code = 20508) 195 UG/DL 112-347 CALC TOTAL IBC (test code = 2076) 231 UG/DL 250-450 L CALC % IRON SAT (test code = 2078) 16 % 20-50 L COMPREHENSIVE METABOLIC [id number] 06:51:50* Test Item Value Reference Range Interpretation Comme nts GLUCOSE (test code = 2216) 149 MG/DL 70-99 H BUN (test code = 2207) 9 MG/DL 8-23 CREATININE (test code = 2213) 0.83 MG/DL 0.60-1.30 eGFR (2020 CKD-EPI) (test code = 26291) 78 ML/MIN/1.73 >60 CALC BUN/CREAT (test code = 2234) 11 RATIO 6-28 SODIUM (test code = 223) 139 MEQ/L 133-146 POTASSIUM (test code = 8) 3.1 MEQ/L 3.5-5.4 L CHLORIDE (test code = 2215) 102 MEQ/L 95-107 CARBON DIOXIDE (test code = 6) 23 MEQ/L 19-31 CALCIUM (test code = 2208) 8.3 MG/DL 8.5-10.5 L PROTEIN, TOTAL (test code = 2228) 4.2 G/DL 6.1-8.3 L ALBUMIN (test code = 2200) 2.8 G/DL 3.5-5.2 L CALC GLOBULIN (test code = 2240) 1.4 G/DL 1.9-3.7 L CALC A/G RATIO (test code = 2233) 2.0 RATIO 1.0-2.6 BILIRUBIN, TOTAL (test code = 2206) 1.3 MG/DL <=1.2 H ALKALINE PHOSPHATASE (test code = 2203) 171 U/L 40-140 H AST (test code = 2218) 19 U/L 9-40 ALT (test code = 2219) 14 U/L 5-40 UNLESS OTHERWISE INDICATED, ALL TESTING PERFORMED AT [facility] [address] [place] [address] [employer]: SALENA BOTELLO M.D. [place] NUMBER [id number] [facility] [place]. [id number] VITAMIN B 12 AND FOLIC [id number] 06:45:43* Test Item Value Reference Range Interpretation Comme [facility] VITAMIN B-12 (test code = 2840) 263 PG/ML 200-950 FOLIC ACID (test code = 2695) >20.0 UG/L SEE BELOW INTERPRETIVE RAN GES DEFICIENCY . . . . . . . . . . . . . . . UG/L <4.0 POSSIBLE DEFICIENCY. . . . . . . . . . . UG/L 4.0-5.9 SUFFICIENT . . . . . . . . . . . . . . . UG/L >=6.0 [id number] 06:26:58* Test Item Value Reference Range Interpretation Comme [facility] FERRITIN (test code = 2075) 61 NG/ML 13-200 PROTHROMBIN TIME (PT)2024-06-11 04:16:39* Test Item Value Reference Range Interpretation Comme [facility] PROTHROMBIN TIME (PT) (test code = 1402) 16.7 SECONDS 12.5-14.7 H INR (test code = 40151) 1.3 SEE BELOW CURRENT RECOMMENDATIONS ARE FOR AN INR OF 2.0-3.0 FOR ALL PATIENTS ON VITAMIN K ANTAGONISTS, EXCEPT THOSE WITH PROSTHETIC HEART VALVES, FOR WHOM INR OF 2.5-3.5 IS RECOMMENDED. XR Chest 2 [id number] 21:44:01EXAM: XR CHEST 2 VW COMPARISON: None TECHNIQUE: A frontal and lateral radiographs were obtained. HISTORY: Other specified pre- operative examination Faxed order FINDINGS: Lines/devices:None Lungs: Thelungs are adequately expanded. No focal opacity. No pleuralabnormality. Heart/Mediastinum: The cardiomediastinal silhouette is unremarkable. Bones and soft tissues: No osseous lesions visualized. Radiodense loops ofwires are visualized over the left upper quadrant of the abdomen likelyfrom coil embo lization.[facility] 2024-05-22 05:11:45* Test Item Value Reference Range Interpretation Comme nts GLUCOSE (test code = 2217) 88 MG/DL 70-99 BUN (test code = 2208) 5 MG/DL 8-23 L CREATININE (test code = 2214) 0.64 MG/DL 0.60-1.30 eGFR (2020 CKD-EPI) (test code = 64953) 98 ML/MIN/1.73 >60 CALC BUN/CREAT (test code = 2235) 8 RATIO 6-28 SODIUM (test code = 2231) 142 MEQ/L 133-146 POTASSIUM (test code = 2228) 3.6 MEQ/L 3.5-5.4 CHLORIDE (test code = 2215) 110 MEQ/L 95-107 H CARBON DIOXIDE (test code = 2206) 20 MEQ/L 19-31 CALCIUM (test code = 2209) 7.8 MG/DL 8.5-10.5 L PROTEIN, TOTAL (test code = 2229) 4.1 G/DL 6.1-8.3 L ALBUMIN (test code = 2201) 2.5 G/DL 3.5-5.2 L CALC GLOBULIN (test code = 2240) 1.6 G/DL 1.9-3.7 L CALC A/G RATIO (test code = 2234) 1.6 RATIO 1.0-2.6 BILIRUBIN, TOTAL (test code = 2207) 1.2 MG/DL <=1.2 ALKALINE PHOSPHATASE (test code = 2204) 122 U/L 40-140 AST (test code = 2218) 24 U/L 9-40 ALT (test code = 2219) 17 U/L 5-40 UNLESS OTHERWISE INDICATED, ALL TESTING PERFORMED AT [facility] [address] [place] [address] [employer]: SALENA BOTELLO M.D. [place] NUMBER [id number] [facility] [place]. [id number] COMPREHENSIVE METABOLIC PANEL [ADDED]2024-05-22 00:00:00* Test Item Value Reference Range Interpretation Comme nts GLUCOSE (test code = 2217) 88 MG/DL BUN (test code = 2208) 5 MG/DL CREATININE (test code = 2214) 0.64 MG/DL eGFR (2020 CKD-EPI) (test co de = 78950) 98 ML/MIN/1.73 CALC BUN/CREAT (test code = 2235) 8 RATIO SODIUM (test code = 2231) 142 MEQ/L POTASSIUM (test code = 2228) 3.6 MEQ/L CHLORIDE (test code = 2215) 110 MEQ/L CARBON DIOXIDE (test code = 2206) 20 MEQ/L CALCIUM (test code = 2209) 7.8 MG/DL PROTEIN, TOTAL (test code = 2229) 4.1 G/DL ALBUMIN (test code = 2201) 2.5 G/DL CALC GLOBULIN (test code = 2240) 1.6 G/DL CALC A/G RATIO (test code = 2234) 1.6 RATIO BILIRUBIN, TOTAL (test code = 2207) 1.2 MG/DL ALKALINE PHOSPHATASE (test code = 2204) 122 U/L AST (test code = 2218) 24 U/L ALT (test code = 2219) 17 U/L Jonatan EasonCOMPREHENSIVE METABOLIC PANEL [ADDED]2024-05-22 00:00:00* Test Item Value Reference Range Interpretation Comme nts GLUCOSE (test code = 2217) 88 MG/DL BUN (test code = 2208) 5 MG/DL CREATININE (test code = 2214) 0.64 MG/DL eGFR (2020 CKD-EPI) (test co de = 55894) 98 ML/MIN/1.73 CALC BUN/CREAT (test code = 2235) 8 RATIO SODIUM (test code = 2231) 142 MEQ/L POTASSIUM (test code = 2228) 3.6 MEQ/L CHLORIDE (test code = 2215) 110 MEQ/L CARBON DIOXIDE (test code = 2206) 20 MEQ/L CALCIUM (test code = 2209) 7.8 MG/DL PROTEIN, TOTAL (test code = 2229) 4.1 G/DL ALBUMIN (test code = 2201) 2.5 G/DL CALC GLOBULIN (test code = 2240) 1.6 G/DL CALC A/G RATIO (test code = 2234) 1.6 RATIO BILIRUBIN, TOTAL (test code = 2207) 1.2 MG/DL ALKALINE PHOSPHATASE (test code = 2204) 122 U/L AST (test code = 2218) 24 U/L ALT (test code = 2219) 17 U/L Jonatan F AustinVITAMIN [id number] 03:34:36* Test Item Value Reference Range Interpretation Comme [facility] VITAMIN B1 (test code = 4952) TEST NOT PERFORMED Unable to per form testing, specimen not received.Charges adjusted as applicable. TESTING PERFORMED AT [facility] [address] [place] [address], [address], [address] [address] CLIA NO: [id number] VITAMIN [id number] 00:00:00* Test Item Value Reference Range Interpretation Comme [facility] VITAMIN B1 (test code = 4952) TEST NOT PERFORMED Jonatan EasonVITAMIN [id number] 00:00:00* Test Item Value Reference Range Interpretation Comme [facility] VITAMIN B1 (test code = 4952) TEST NOT PERFORMED Jonatan EasonFOLIC [id number] 05:33:28* Test Item Value Reference Range Interpretation Comme [facility] FOLIC ACID (test code = 2695) >20.0 UG/L SEE BELOW INTERPRETIVE RAN GES DEFICIENCY . . . . . . . . . . . . . . . UG/L <4.0 POSSIBLE DEFICIENCY. . . . . . . . . . . UG/L 4.0-5.9 SUFFICIENT . . . . . . . . . . . . . . . UG/L >=6.0 VITAMIN D, 25 [id number] 05:33:28* Test Item Value Reference Range Interpretation Comme [facility] VITAMIN D, 25 OH (test code = 4958) 7 NG/ML SEE BELOW L NOTE: 25-HYDR OXYVITAMIN D ASSAY INCLUDES 25-HYDROXYVITAMIN D2 AND D3. INTERPRETIVE RANGES PEDIATRIC (<17 YEARS) . . . . . . . . . . . NG/ML 20-100ADULT: INSUFFICIENT . . . . . . . . . . . . . . NG/ML <20 SUBOPTIMAL . . . . . . . . . . . . . . . NG/ML 20-29 OPTIMAL . . . . . . . . . . . . . . . . . NG/ML 30-100 VITAMIN [id number] 05:33:28* Test Item Value Reference Range Interpretation Comme [facility] VITAMIN B-12 (test code = 2840) 224 PG/ML 200-950 UNLESS OTHERWISE INDICATED, ALL TESTING PERFORMED AT [facility] [address] [place] [address] [place] [address] [employer]: SALENA BOTELLO M.D. CLIA NUMBER [id number] [facility] [place] [place]. [id number] IRON BINDING CAPACITY AND IRON AND % [id number] 05:21:13* Test Item Value Reference Range Interpretation Comme nts IRON, SERUM (test code = 2222) 74 UG/DL 37-145 UNSATURATED IBC (test code = 33175) 121 UG/DL 112-347 CALC TOTAL IBC (test code = 2077) 195 UG/DL 250-450 L CALC % IRON SAT (test code = 2079) 38 % 20-50 [id number] 05:20:50* Test Item Value Reference Range Interpretation Comme nts TRANSFERRIN (test code = 4936) 157 MG/DL 200-360 L [id number] 05:20:37* Test Item Value Reference Range Interpretation Comme nts FERRITIN (test code = 2075) 227 NG/ML 13-200 H CBC W/AUTO DIFF WITH [id number] 02:30:57* Test Item Value Reference Range Interpretation Comme nts WBC (test code = 1001) 2.2 K/UL 3.5-11.0 L RBC (test code = 1002) 2.55 M/UL 3.80-5.40 L HEMOGLOBIN (test code = 1003) 8.1 G/DL 11.5-15.5 L HEMATOCRIT (test code = 1004) 25.1 % 34.0-45.0 L MCV (test code = 1005) 98.4 fL 80.0-99.0 MCH (test code = 1006) 31.8 PG 25.0-33.0 MCHC (test code = 1007) 32.3 G/DL 31.0-36.0 RDW (test code = 1038) 17.9 % 11.5-15.0 H NEUTROPHILS (test code = 1008) 52.5 % LYMPHOCYTES (test code = 1010) 28.6 % MONOCYTES (test code = 1011) 12.0 % EOSINOPHILS (test code = 1012) 5.1 % BASOPHILS (test code = 1013) 0.9 % IMMATURE GRANULOCYTES (test code = 1036) 0.9 % NUCLEATED RBCS (test code = 1065) 0.0 /100 WBC'S See_Comment [Automated messa ge] The system which generated this result transmitted reference range: 0.0. The reference range was not used to interpret this result as normal/abnormal. PLATELET COUNT (test code = 1015) 102 K/UL 130-400 L ABSOLUTE NEUTROPHILS (test code = 1066) 1.14 K/UL 1.50-7.50 L ABSOLUTE LYMPHOCYTES (test code = 1067) 0.62 K/UL 1.00-4.00 L ABSOLUTE MONOCYTES (test code = 1068) 0.26 K/UL 0.20-1.00 ABSOLUTE EOSINOPHILS (test code = 1040) 0.11 K/UL 0.00-0.50 ABSOLUTE BASOPHILS (test code = 1069) 0.02 K/UL 0.00-0.20 ABS IMMATURE GRANULOCYTES (test code = 1020) 0.02 K/UL 0.00-0.10 ABS NUCLEATED RBCS (test code = 13119) 0.00 K/UL 0.00-0.11 CBC W/AUTO [id number] 00:00:00* Test Item Value Reference Range Interpretation Comme nts WBC (test code = 1001) 2.2 K/UL RBC (test code = 1002) 2.55 M/UL HEMOGLOBIN (test code = 1003) 8.1 G/DL HEMATOCRIT (test code = 1004) 25.1 % MCV (test code = 1005) 98.4 fL MCH (test code = 1006) 31.8 PG MCHC (test code = 1007) 32.3 G/DL RDW (test code = 1038) 17.9 % NEUTROPHILS (test code = 1008) 52.5 % LYMPHOCYTES (test code = 1010) 28.6 % MONOCYTES (test code = 1011) 12.0 % EOSINOPHILS (test code = 1012) 5.1 % BASOPHILS (test code = 1013) 0.9 % IMMATURE GRANULOCYTES (test code = 1036) 0.9 % NUCLEATED RBCS (test code = 1065) 0.0 /100WBC'S PLATELET COUNT (test code = 1015) 102 K/UL ABSOLUTE NEUTROPHILS (test c ode = 1066) 1.14 K/UL ABSOLUTE LYMPHOCYTES (test c ode = 1067) 0.62 K/UL ABSOLUTE MONOCYTES (test cod e = 1068) 0.26 K/UL ABSOLUTE EOSINOPHILS (test c ode = 1040) 0.11 K/UL ABSOLUTE BASOPHILS (test cod e = 1069) 0.02 K/UL ABS IMMATURE GRANULOCYTES (t est code = 1020) 0.02 K/UL ABS NUCLEATED RBCS (test cod e = 68761) 0.00 K/UL Jonatan EasonFOLIC [id number] 00:00:00* Test Item Value Reference Range Interpretation Comme nts FOLIC ACID (test code = 2695) >20.0 UG/L Jonatan Barber [id number] 00:00:00* Test Item Value Reference Range Interpretation Comme nts FERRITIN (test code = 2075) 227 NG/ML Jonatan EasonIRON BINDING CAPACITY AND IRON AND % [id number] 00:00:00* Test Item Value Reference Range Interpretation Comme nts IRON, SERUM (test code = 2222) 74 UG/DL UNSATURATED IBC (test code = 03168) 121 UG/DL CALC TOTAL IBC (test code = 2077) 195 UG/DL CALC % IRON SAT (test code = 2079) 38 % Jonatan Eas[id number] 00:00:00* Test Item Value Reference Range Interpretation Comme alber TRANSFERRIN (test code = 4936) 157 MG/DL Jonatan EasonVITAMIN D, 25 [id number] 00:00:00* Test Item Value Reference Range Interpretation Comme alber VITAMIN D, 25 OH (test code = 4958) 7 NG/ML Jonatan EasonVITAMIN [id number] 00:00:00* Test Item Value Reference Range Interpretation Comme alber VITAMIN B-12 (test code = 2840) 224 PG/ML Jonatan EasonCBC W/AUTO [id number] 00:00:00* Test Item Value Reference Range Interpretation Comme nts WBC (test code = 1001) 2.2 K/UL RBC (test code = 1002) 2.55 M/UL HEMOGLOBIN (test code = 1003) 8.1 G/DL HEMATOCRIT (test code = 1004) 25.1 % MCV (test code = 1005) 98.4 fL MCH (test code = 1006) 31.8 PG MCHC (test code = 1007) 32.3 G/DL RDW (test code = 1038) 17.9 % NEUTROPHILS (test code = 1008) 52.5 % LYMPHOCYTES (test code = 1010) 28.6 % MONOCYTES (test code = 1011) 12.0 % EOSINOPHILS (test code = 1012) 5.1 % BASOPHILS (test code = 1013) 0.9 % IMMATURE GRANULOCYTES (test code = 1036) 0.9 % NUCLEATED RBCS (test code = 1065) 0.0 /100WBC'S PLATELET COUNT (test code = 1015) 102 K/UL ABSOLUTE NEUTROPHILS (test c ode = 1066) 1.14 K/UL ABSOLUTE LYMPHOCYTES (test c ode = 1067) 0.62 K/UL ABSOLUTE MONOCYTES (test cod e = 1068) 0.26 K/UL ABSOLUTE EOSINOPHILS (test c ode = 1040) 0.11 K/UL ABSOLUTE BASOPHILS (test cod e = 1069) 0.02 K/UL ABS IMMATURE GRANULOCYTES (t est code = 1020) 0.02 K/UL ABS NUCLEATED RBCS (test cod e = 25050) 0.00 K/UL Jonatan EasonFOLIC [id number] 00:00:00* Test Item Value Reference Range Interpretation Comme nts FOLIC ACID (test code = 2695) >20.0 UG/L Jonatan [id number] 00:00:00* Test Item Value Reference Range Interpretation Comme nts FERRITIN (test code = 2075) 227 NG/ML Jonatan EasonIRON BINDING CAPACITY AND IRON AND % [id number] 00:00:00* Test Item Value Reference Range Interpretation Comme nts IRON, SERUM (test code = 2222) 74 UG/DL UNSATURATED IBC (test code = 13804) 121 UG/DL CALC TOTAL IBC (test code = 2077) 195 UG/DL CALC % IRON SAT (test code = 2079) 38 % Jonatan EasonUqcoqdKJHBCGEPEUD3326-96-13 00:00:00* Test Item Value Reference Range Interpretation Comme nts TRANSFERRIN (test code = 4936) 157 MG/DL Jonatan EasonVITAMIN D, 25 [id number] 00:00:00* Test Item Value Reference Range Interpretation Comme nts VITAMIN D, 25 OH (test code = 4958) 7 NG/ML Jonatan EasonVITAMIN [id number] 00:00:00* Test Item Value Reference Range Interpretation Comme nts VITAMIN B-12 (test code = 2840) 224 PG/ML Jonatan Green Retroperitoneal mratlzne4189-40-27 15:54:17EXAM: US RETROPERITONEAL COMPLETE HISTORY: 63 years-old Female with urinary retention Can we get both renaland bladder US. TECHNIQUE: Ultrasound of kidneys and bladder was performed with grayscaleandselected color Doppler imaging. Tape Calender images were obtained forthe record. COMPARISON: CT dated 03/10/2024. FINDINGS: Limited exam due to excessive bowel gas. KIDNEYS:RIGHT:Length: Normal, 10 cm.Parenchyma: Normal renal cortical echogenicity and thickness. No focalsolid or cystic renal lesions are detected.Collecting System: No hydronephrosis.Other: None. LEFT:The left kidney is not visualized. BLADDER: Bladder is partially decompressed. OTHER: None.[facility] without Diff 2024-04-27 02:19:50* Test Item Value Reference Range Interpretation Comme nts WBC (test code = 6690-2) 3.16 4.30-11.10 L RBC (test code = 789-8) 3.01 3.93-5.25 L HGB (test code = 718-7) 8.5 g/dL 11.6-15.0 L HCT (test code = 4544-3) 25.6 % 35.7-45.2 L MCH (test code = 785-6) 28.2 pg 25.9-32.8 MCV (test code = 787-2) 85.0 fL 80.6-95.5 MCHC (test code = 786-4) 33.2 g/dL 31.6-35.1 PLT (test code = 777-3) 84 166-358 L MPV (test code = 27792-6) 11.4 fL 9.5-12.9 RDW-CV (test code = 788-0) 18.4 % 12.0-15.5 H RDW-SD (test code = 07068-4) 54.3 fL 39.0-49.9 H NRBC x10^3 (test code = 9844667501) See_Comment [Automated [employer]] The system which generated this result transmitted reference range: 10*3/?L. The reference range was not used to interpret this result as normal/abnormal. NRBC/100 WBC (test code = 4324458804) 0.0 0.0-10.0 IPF % (test code = 0206179986) 7.3 % 1.3-7.7 Platelet count measured by fluorescence method. Lab Interpretation (test code = 13318-9) Abnormal [facility] Packed RBC (in units), 2 Units 2024-04-26 22:31:05* Test Item Value Reference Range Interpretation Comme nts Cross Match Result (test code = 4409) Compatible ISBT Blood Type Code (test code = 972999) 5100 Unit Blood Type (test code = 4410) O Pos Unit Number (test code = 4411) [id number] Blood Expiration Date & Time (test code = 427188) [id number] Status Information (test code = 4412) Issued Product Identification (test code = 4413) Red Blood Cells Product Code (test code = 4414) [id number] Performed at [facility] Laboratory Services [facility] Blood [address] [place] [address] [id number] Free: [phone] No. [id number] [facility] Packed RBC (in units), 2 Units 2024-04-26 21:22:20* Test Item Value Reference Range Interpretation Comme nts Unit Blood Type (test code = 4410) O Pos ISBT Blood Type Code (test code = 378578) 5100 Unit Number (test code = 4411) [id number] Blood Expiration Date & Time (test code = 714348) [id number] Status Information (test code = 4412) Canceled Product Identification (test code = 4413) Red Blood Cells Product Code (test code = 4414) [id number] Performed at [facility] Laboratory Services [facility] Blood [address] [place] [id number] Free: [phone] No. [id number] Cross Match Result (test code = 4409) Compatible [facility] Packed RBC (in units), 1 Units 2024-04-26 17:22:56* Test Item Value Reference Range Interpretation Comme nts Cross Match Result (test code = 4409) Compatible ISBT Blood Type Code (test code = 897398) 5100 Unit Blood Type (test code = 4410) O Pos Unit Number (test code = 4411) [id number] Blood Expiration Date & Time (test code = 517282) [id number] Status Information (test code = 4412) Issued Product Identification (test code = 4413) Red Blood Cells Product Code (test code = 4414) [id number] Performed at [facility] Laboratory Services [facility] Blood [address] [place] [address]Jtnj Free: [phone] No. [id number] [facility] wo lmrlhded2128-77-28 15:04:22CT HEAD WO CONTRAST HISTORY: 63 years-old Female; increased weakness, history of cirrhosis. COMPARISON: CT head on 03/10/2024. TECHNIQUE: Axial CT of the head without IV contrast was performed. Coronaland sagittal reformatted images were generated. FINDINGS: The ventricles and cerebral sulci are normal in caliber and configuration.No hydrocephalus, midline shift or pathological extra-axial fluidcollection is present. The basal cisterns are unremarkable. There is no acute intracranial hemorrhageor significant mass effect. Noparenchymal attenuation abnormality is seen. The bro-white matterdifferentiation is preserved. The mastoid air cells and paranasal air sinuses are clear. The calvariumand central skull base are unremarkable.[facility] Acid Whole [id number] 15:00:07* Test Item Value Reference Range Interpretation Comme nts LACTIC ACID (test code = 6581959587) 1.83 mmol/L 0.50-2.20 Lab Interpretation (test cod e = 26459-7) Normal [facility] with Nxzp1115-22-14 13:24:59* Test Item Value Reference Range Interpretation Comme nts WBC (test code = 6690-2) 3.95 4.30-11.10 L RBC (test code = 789-8) 1.58 3.93-5.25 L HGB (test code = 718-7) 4.3 g/dL 11.6-15.0 LL HCT (test code = 4544-3) 13.9 % 35.7-45.2 LL MCV (test code = 787-2) 88.0 fL 80.6-95.5 MCH (test code = 785-6) 27.2 pg 25.9-32.8 MCHC (test code = 786-4) 30.9 g/dL 31.6-35.1 L RDW-SD (test code = 85349-3) 64.4 fL 39.0-49.9 H RDW-CV (test code = 788-0) 20.9 % 12.0-15.5 H PLT (test code = 777-3) 101 166-358 L MPV (test code = 59978-5) 11.8 fL 9.5-12.9 NRBC/100 WBC (test code = 8185287980) 0.0 0.0-10.0 NRBC x10^3 (test code = 2540258500) See_Comment [Automated messa ge] The system which generated this result transmitted reference range: 10*3/?L. The reference range was not used to interpret this result as normal/abnormal. GRAN MAT (NEUT) % (test code = 770-8) 49.3 % IMM GRAN % (test code = 7536577997) 0.30 % LYMPH % (test code = 736-9) 30.9 % MONO % (test code = 5905-5) 10.6 % EOS % (test code = 713-8) 8.1 % BASO % (test code = 706-2) 0.8 % GRAN MAT x10^3(ANC) (test code = 0962457804) 1.95 10*3/uL 1.88-7.09 IMM GRAN x10^3 (test code = 8256405069) 0.00-0.06 LYMPH x10^3 (test code = 731-0) 1.22 10*3/uL 1.32-3.29 L MONO x10^3 (test code = 742-7) 0.42 10*3/uL 0.33-0.92 EOS x10^3 (test code = 711-2) 0.32 10*3/uL 0.03-0.39 BASO x10^3 (test code = 704-7) 0.03 10*3/uL 0.01-0.07 Lab Interpretation (test code = 43105-5) Abnormal [facility] (NA, K, CL, CO2, GLUCOSE, BUN, CREATININE, CA)2024-04-26 12:57:38* Test Item Value Reference Range Interpretation Comme nts NA (test code = 7831957327) 132 mmol/L 135-145 L K (test code = 4742011314) 3.7 mmol/L 3.5-5.0 CL (test code = 1593526813) 110 mmol/L 98-108 H CO2 TOTAL (test code = 6841201087) 23 mmol/L 23-31 AGAP (test code = 9218764010) 2-16 L BUN (test code = 8194824593) 11 mg/dL 7-23 GLUCOSE (test code = 0119102774) 86 mg/dL 70-110 CREATININE (test code = 2160-0) 0.64 mg/dL 0.50-1.04 CALCIUM (test code = 2979509471) 7.1 mg/dL 8.6-10.6 L eGFR (test code = 40327-1) 98.2 mL/min/1.73m2 CKD-EPI eGFR (2020). Assuming creatinine has been stable day-to-day for at least three months, the eGFR indicates Category G1 (>= 90 mL/min/1.73 m2) Lab Interpretation (test code = 02832-7) Abnormal [facility] MarshallMagnesium2024-12-14 12:57:07* Test Item Value Reference Range Interpretation Comme nts MAGNESIUM (test code = 8232909116) 1.9 mg/dL 1.7-2.4 Lab Interpretation (test cod e = 07244-6) Normal [facility] MarshallHepatic Function Panel (08080) (ALB,T.PRO,BILI T,BU/BC,ALT,AST,ALK PHOS)2024-04-26 12:57:07* Test Item Value Reference Range Interpretation Comme nts TOTAL BILI (test code = 7988392981) 1.3 mg/dL 0.1-1.1 H BILI UNCON (test code = 7466207352) 0.9 mg/dL 0.1-1.1 BILI CONJ (test code = 0452737854) 0.0 mg/dL 0.0-0.3 T PROTEIN (test code = 3420898175) 3.7 g/dL 6.3-8.2 L ALBUMIN (test code = 4652211265) 1.9 g/dL 3.5-5.0 L ALK PHOS (test code = 1365943492) 96 U/L 34-122 ALTv (test code = 1742-6) 14 U/L 5-35 AST(SGOT) (test code = 6990214684) 23 U/L 13-40 Lab Interpretation (test cod e = 08349-3) Abnormal [facility] and Screen - ONCE [id number] 12:09:00 * Test Item Value Reference Range Interpretation Comme nts ABO & RH (test code = 20) O POSITIVE IAT (test code = 1185) Negative [facility] MarshallLactic Acid Whole Jltfg4423-52-60 09:04:59* Test Item Value Reference Range Interpretation Comme nts LACTIC ACID (test code = 4322990276) 2.89 mmol/L 0.50-2.20 H Lab Interpretation (test cod e = 68733-6) Abnormal [facility] Marshall[facility] WITH [id number] 08:24:36* Test Item Value Reference Range Interpretation Comme nts WBC (test code = 6690-2) 3.93 4.30-11.10 L RBC (test code = 789-8) 1.21 3.93-5.25 L HGB (test code = 718-7) 3.4 g/dL 11.6-15.0 LL HCT (test code = 4544-3) 11.4 % 35.7-45.2 LL MCV (test code = 787-2) 94.2 fL 80.6-95.5 MCH (test code = 785-6) 28.1 pg 25.9-32.8 MCHC (test code = 786-4) 29.8 g/dL 31.6-35.1 L RDW-SD (test code = 09472-5) 60.9 fL 39.0-49.9 H RDW-CV (test code = 788-0) 18.1 % 12.0-15.5 H PLT (test code = 777-3) 103 166-358 L MPV (test code = 63224-4) 11.9 fL 9.5-12.9 NRBC/100 WBC (test code = 2441034872) 0.0 0.0-10.0 NRBC x10^3 (test code = 6713765218) See_Comment [Automated [employer] ge] The system which generated this result transmitted reference range: 10*3/?L. The reference range was not used to interpret this result as normal/abnormal. SEG % (test code = 24091-5) 55 % 33-76 BAND % (test code = 86546-2) 1 % 0-1 LYMPH % (test code = 70981-9) 36 % 14-54 MONO % (test code = 25557-6) 8 % 0-4 H ANC (test code = 753-4) 2.20 10*3/uL 1.88-7.09 PLT ESTIMATE (test code = 9317-9) Decreased Normal A GIANT PLATELETS (test code = 5908-9) Present See_Comment A [Automated [employer]] The system which generated this result transmitted reference range: (none). The reference range was not used to interpret this result as normal/abnormal. Lab Interpretation (test code = 10042-0) Abnormal [facility] and Screen - ONCE Fowwlnb2616-24-06 07:43:00* Test Item Value Reference Range Interpretation Comme [facility] ABO & RH (test code = 20) O POSITIVE IAT (test code = 1185) Negative [facility] MarshallPROTHROMBIN TIME / [id number] 07:35:33* Test Item Value Reference Range Interpretation Comme [facility] PROTIME PATIENT (test code = 5964-2) 15.2 10.1-12.6 H INR (test code = 6301-6) 1.3 Normal INR <1.1; Warfarin Therapeutic range 2.0 to 3.0 or 2.5 to 3.5, depending upon the indications. Lab Interpretation (test code = 41840-7) Abnormal [facility] MarshallACTIVATED PARTIAL THRMPLAS [id number] 07:35:32* Test Item Value Reference Range Interpretation Comme [facility] APTT Patient (test code = 3173-2) 31 26-36 FRANKO (test code = FRANKO) [facility] patient population mean normal value for aPTT is 30 seconds. Lab Interpretation (test code = 39483-5) Normal [facility] MarshallN-TERMINAL RPU-WRE6471-11-14 07:29:55* Test Item Value Reference Range Interpretation Comme nts NT-proBNP (test code = 94543-4) 240 pg/mL <=125 FRANKO (test code = FRANKO) Result Indeterminate-Consid er causes of NT-proBNP elevation other than Heart failure such as acute coronary syndrome, pulmonary embolism, pulmonary hypertension, sepsis, stroke, and renal dysfunction. Lab Interpretation (test code = 63064-5) Abnormal [facility] MarshallTROPONIN [id number] 07:26:54* Test Item Value Reference Range Interpretation Comme nts TROPONIN I (test code = 8666348820) 0.011 ng/mL <=0.034 FRANKO (test code = FRANKO) [...] of biotin. Lab Interpretation (test code = 66154-9) Normal [facility] MarshallAmmonia, Jzbjeq8362-37-77 07:18:11* Test Item Value Reference Range Interpretation Comme nts AMMONIA (test code = 0274686147) 23 umol/L 9-33 Lab Interpretation (test cod e = 85362-9) Normal [facility] MarshallMagnesium2024-12-14 07:15:14* Test Item Value Reference Range Interpretation Comme nts MAGNESIUM (test code = 0368212588) 1.9 mg/dL 1.7-2.4 Lab Interpretation (test cod e = 00216-9) Normal [facility] MarshallCOMP. METABOLIC PANEL (18478)2024-04-26 07:14:54* Test Item Value Reference Range Interpretation Comme nts NA (test code = 5582673786) 134 mmol/L 135-145 L K (test code = 0739961812) 3.8 mmol/L 3.5-5.0 CL (test code = 0489808284) 110 mmol/L 98-108 H CO2 TOTAL (test code = 1860253356) 19 mmol/L 23-31 L AGAP (test code = 5800748900) 5 2-16 BUN (test code = 1827871230) 11 mg/dL 7-23 GLUCOSE (test code = 7706261272) 120 mg/dL 70-110 H CREATININE (test code = 2160-0) 0.75 mg/dL 0.50-1.04 TOTAL BILI (test code = 4366659399) 1.1 mg/dL 0.1-1.1 CALCIUM (test code = 0829329102) 7.6 mg/dL 8.6-10.6 L T PROTEIN (test code = 5444845894) 3.9 g/dL 6.3-8.2 L ALBUMIN (test code = 3346236634) 2.0 g/dL 3.5-5.0 L ALK PHOS (test code = 2394698528) 91 U/L 34-122 ALTv (test code = 1742-6) 15 U/L 5-35 AST(SGOT) (test code = 9061043718) 20 U/L 13-40 eGFR (test code = 94398-9) 88.5 mL/min/1.73m2 CKD-EPI eGFR (2020). Assuming creatinine has been stable day-to-day for at least three months, the eGFR indicates Category G2 (60 - 89 mL/min/1.73 m2) Lab Interpretation (test code = 19536-2) Abnormal [facility] MarshallLIPASE2024-12-14 07:14:54* Test Item Value Reference Range Interpretation Comme nts LIPASE (test code = 9142526320) 66 U/L 0-220 Lab Interpretation (test cod e = 90824-4) Normal [facility] MarshallLactic Acid Whole Bezja8164-43-92 06:40:56* Test Item Value Reference Range Interpretation Comme nts LACTIC ACID (test code = 6285385760) 4.35 mmol/L 0.50-2.20 H Lab Interpretation (test cod e = 56766-6) Abnormal [facility] MarshallCritical Zzex9521-09-26 05:29:00Nica Hoskins NP ? ? 04/26/2024 ?2:36 AMCritical Care Performed by: Nica Hoskins NPAuthorized by: Nica Hoskins NP ?Critical care provider statement: ?Critical care time (minutes): ?45 ?Critical care was necessary to treat or prevent imminent or life-threatening deterioration of the following conditions: ?Cardiac failure and circulatory failure ?Critical care was time spent personally by me on the following activities: ?Development of treatment plan with patient or surrogate, discussions with consultants, examination of patient, obtaining history from patient or surrogate, ordering and performing treatments and interventions, ordering and review of laboratory studies, ordering and review of radiographic studies, pulse oximetry, re-evaluation of patient's condition and review of old charts ?I assumed direction of critical care for this patient from another provider in my specialty: no ? ?Care discussed with: accepting provider at another facility ?[facility] Marshall[facility]. METABOLIC PANEL (42805)2024-04-08 08:42:31* Test Item Value Reference Range Interpretation Comme nts NA (test code = 7591457790) 141 mmol/L 135-145 K (test code = 8147884511) 3.3 mmol/L 3.5-5.0 L CL (test code = 3427421698) 112 mmol/L 98-108 H CO2 TOTAL (test code = 7826863920) 27 mmol/L 23-31 AGAP (test code = 3190090956) 2 2-16 BUN (test code = 4119087050) 11 mg/dL 7-23 GLUCOSE (test code = 1108219399) 102 mg/dL 70-110 CREATININE (test code = 2160-0) 0.72 mg/dL 0.50-1.04 TOTAL BILI (test code = 5948352712) 2.3 mg/dL 0.1-1.1 H CALCIUM (test code = 6826546999) 8.3 mg/dL 8.6-10.6 L T PROTEIN (test code = 9656913007) 5.3 g/dL 6.3-8.2 L ALBUMIN (test code = 1455480573) 2.8 g/dL 3.5-5.0 L ALK PHOS (test code = 3918331369) 168 U/L 34-122 H ALTv (test code = 1742-6) 16 U/L 5-35 AST(SGOT) (test code = 4537951579) 44 U/L 13-40 H eGFR (test code = 85351-4) 92.9 mL/min/1.73m2 CKD-EPI eGFR (2020). Assuming creatinine has been stable day-to-day for at least three months, the eGFR indicates Category G1 (>= 90 mL/min/1.73 m2) Lab Interpretation (test code = 25932-3) Abnormal [facility] MarshallAmmonia, Lrluzu8133-39-52 08:41:31* Test Item Value Reference Range Interpretation Comme nts AMMONIA (test code = 8829762367) 73 umol/L 9-33 H Lab Interpretation (test cod e = 88945-4) Abnormal [facility] Marshall[facility] WITH [id number] 08:33:54* Test Item Value Reference Range Interpretation Comme nts WBC (test code = 6690-2) 3.40 4.30-11.10 L RBC (test code = 789-8) 3.12 3.93-5.25 L HGB (test code = 718-7) 9.1 g/dL 11.6-15.0 L HCT (test code = 4544-3) 29.0 % 35.7-45.2 L MCV (test code = 787-2) 92.9 fL 80.6-95.5 MCH (test code = 785-6) 29.2 pg 25.9-32.8 MCHC (test code = 786-4) 31.4 g/dL 31.6-35.1 L RDW-SD (test code = 01884-1) 68.0 fL 39.0-49.9 H RDW-CV (test code = 788-0) 19.9 % 12.0-15.5 H PLT (test code = 777-3) 94 166-358 L MPV (test code = 25873-9) 10.1 fL 9.5-12.9 IPF % (test code = 5138712776) 3.2 % 1.3-7.7 Platelet count measured by fluorescence method. NRBC/100 WBC (test code = 2038325510) 0.0 0.0-10.0 NRBC x10^3 (test code = 8829574777) See_Comment [Automated messa ge] The system which generated this result transmitted reference range: 10*3/?L. The reference range was not used to interpret this result as normal/abnormal. GRAN MAT (NEUT) % (test code = 770-8) 43.9 % IMM GRAN % (test code = 3174338245) 0.30 % LYMPH % (test code = 736-9) 32.9 % MONO % (test code = 5905-5) 13.8 % EOS % (test code = 713-8) 7.6 % BASO % (test code = 706-2) 1.5 % GRAN MAT x10^3(ANC) (test code = 9677904081) 1.49 10*3/uL 1.88-7.09 L IMM GRAN x10^3 (test code = 4761170462) 0.00-0.06 LYMPH x10^3 (test code = 731-0) 1.12 10*3/uL 1.32-3.29 L MONO x10^3 (test code = 742-7) 0.47 10*3/uL 0.33-0.92 EOS x10^3 (test code = 711-2) 0.26 10*3/uL 0.03-0.39 BASO x10^3 (test code = 704-7) 0.05 10*3/uL 0.01-0.07 Lab Interpretation (test code = 68758-4) [facility] / [id number] 08:29:10* Test Item Value Reference Range Interpretation Comme nts PROTIME PATIENT (test code = 5964-2) 15.5 10.1-12.6 H INR (test code = 6301-6) 1.3 Normal INR <1.1; Warfarin Therapeutic range 2.0 to 3.0 or 2.5 to 3.5, depending upon the indications. Lab Interpretation (test code = 74708-5) Abnormal [facility]OR [id number] 04:51:08* Test Item Value Reference Range Interpretation Comme nts AFP, TUMOR MARKER (test code = 46886) <1.82 NG/ML <=8.30 UNLESS OTHERWISE INDICATED, ALL TESTING PERFORMED AT [facility] [address] [place] [id number] [employer] H[employer]: SALENA BOTELLO M.D. [place] NUMBER [id number] [facility] [place]. [id number] VITAMIN B 12 AND FOLIC [id number] 04:47:29* Test Item Value Reference Range Interpretation Comme nts VITAMIN B-12 (test code = 2840) 307 PG/ML 200-950 FOLIC ACID (test code = 2695) 19.8 UG/L SEE BELOW INTERPRETIVE RAN GES DEFICIENCY . . . . . . . . . . . . . . . UG/L <4.0 POSSIBLE DEFICIENCY. . . . . . . . . . . UG/L 4.0-5.9 SUFFICIENT . . . . . . . . . . . . . . . UG/L >=6.0 [id number] 04:47:16* Test Item Value Reference Range Interpretation Comme nts FERRITIN (test code = 2075) 55 NG/ML 13-200 COMPREHENSIVE METABOLIC [id number] 04:44:49* Test Item Value Reference Range Interpretation Comme nts GLUCOSE (test code = 2217) 97 MG/DL 70-99 BUN (test code = 2208) 11 MG/DL 8-23 CREATININE (test code = 2214) 0.85 MG/DL 0.60-1.30 eGFR (2020 CKD-EPI) (test co de = 18069) 76 ML/MIN/1.73 >60 CALC BUN/CREAT (test code = 2235) 13 RATIO 6-28 SODIUM (test code = 2231) 144 MEQ/L 133-146 POTASSIUM (test code = 2228) 4.3 MEQ/L 3.5-5.4 CHLORIDE (test code = 2215) 112 MEQ/L 95-107 H CARBON DIOXIDE (test code = 2206) 23 MEQ/L 19-31 CALCIUM (test code = 2209) 8.9 MG/DL 8.5-10.5 PROTEIN, TOTAL (test code = 222) 5.3 G/DL 6.1-8.3 L ALBUMIN (test code = 2201) 3.4 G/DL 3.5-5.2 L CALC GLOBULIN (test code = 2240) 1.9 G/DL 1.9-3.7 CALC A/G RATIO (test code = 2233) 1.8 RATIO 1.0-2.6 BILIRUBIN, TOTAL (test code = 2206) 1.7 MG/DL <=1.2 H ALKALINE PHOSPHATASE (test code = 2203) 175 U/L 40-140 H AST (test code = 2217) 21 U/L 9-40 ALT (test code = 2218) 12 U/L 5-40 IRON BINDING CAPACITY AND IRON AND % [id number] 04:44:49* Test Item Value Reference Range Interpretation Comme nts IRON, SERUM (test code = 222) 57 UG/DL 37-145 UNSATURATED IBC (test code = 52623) 259 UG/DL 112-347 CALC TOTAL IBC (test code = 2076) 316 UG/DL 250-450 CALC % IRON SAT (test code = 9) 18 % 20-50 L PROTHROMBIN TIME (PT)2024-04-02 03:18:02* Test Item Value Reference Range Interpretation Comme nts PROTHROMBIN TIME (PT) (test code = 1402) 16.7 SECONDS 12.5-14.7 H INR (test code = 66213) 1.3 SEE BELOW CURRENT RECOMMENDATIONS ARE FOR AN INR OF 2.0-3.0 FOR ALL PATIENTS ON VITAMIN K ANTAGONISTS, EXCEPT THOSE WITH PROSTHETIC HEART VALVES, FOR WHOM INR OF 2.5-3.5 IS RECOMMENDED. CBC W/AUTO DIFF WITH [id number] 02:15:05* Test Item Value Reference Range Interpretation Comme nts WBC (test code = 1001) 4.4 K/UL 3.5-11.0 RBC (test code = 1002) 3.24 M/UL 3.80-5.40 L HEMOGLOBIN (test code = 1003) 9.3 G/DL 11.5-15.5 L HEMATOCRIT (test code = 1004) 29.1 % 34.0-45.0 L MCV (test code = 1005) 89.8 fL 80.0-99.0 MCH (test code = 1006) 28.7 PG 25.0-33.0 MCHC (test code = 1007) 32.0 G/DL 31.0-36.0 RDW (test code = 1038) 18.1 % 11.5-15.0 H NEUTROPHILS (test code = 1008) 59.2 % LYMPHOCYTES (test code = 1010) 21.6 % MONOCYTES (test code = 1011) 11.7 % EOSINOPHILS (test code = 1012) 5.9 % BASOPHILS (test code = 1013) 1.4 % IMMATURE GRANULOCYTES (test code = 1036) 0.2 % NUCLEATED RBCS (test code = 1065) 0.0 /100 WBC'S See_Comment [Automated messa ge] The system which generated this result transmitted reference range: 0.0. The reference range was not used to interpret this result as normal/abnormal. PLATELET COUNT (test code = 1015) 130 K/UL 130-400 ABSOLUTE NEUTROPHILS (test code = 1066) 2.63 K/UL 1.50-7.50 ABSOLUTE LYMPHOCYTES (test code = 1067) 0.96 K/UL 1.00-4.00 L ABSOLUTE MONOCYTES (test code = 1068) 0.52 K/UL 0.20-1.00 ABSOLUTE EOSINOPHILS (test code = 1040) 0.26 K/UL 0.00-0.50 ABSOLUTE BASOPHILS (test code = 1069) 0.06 K/UL 0.00-0.20 ABS IMMATURE GRANULOCYTES (test code = 1020) 0.01 K/UL 0.00-0.10 ABS NUCLEATED RBCS (test code = 78144) 0.00 K/UL 0.00-0.11 CBC W/AUTO [id number] 00:00:00* Test Item Value Reference Range Interpretation Comme nts WBC (test code = 1001) 4.4 K/UL RBC (test code = 1002) 3.24 M/UL HEMOGLOBIN (test code = 1003) 9.3 G/DL HEMATOCRIT (test code = 1004) 29.1 % MCV (test code = 1005) 89.8 fL MCH (test code = 1006) 28.7 PG MCHC (test code = 1007) 32.0 G/DL RDW (test code = 1038) 18.1 % NEUTROPHILS (test code = 1008) 59.2 % LYMPHOCYTES (test code = 1010) 21.6 % MONOCYTES (test code = 1011) 11.7 % EOSINOPHILS (test code = 1012) 5.9 % BASOPHILS (test code = 1013) 1.4 % IMMATURE GRANULOCYTES (test code = 1036) 0.2 % NUCLEATED RBCS (test code = 1065) 0.0 /100WBC'S PLATELET COUNT (test code = 1015) 130 K/UL ABSOLUTE NEUTROPHILS (test c ode = 1066) 2.63 K/UL ABSOLUTE LYMPHOCYTES (test c ode = 1067) 0.96 K/UL ABSOLUTE MONOCYTES (test cod e = 1068) 0.52 K/UL ABSOLUTE EOSINOPHILS (test c ode = 1040) 0.26 K/UL ABSOLUTE BASOPHILS (test cod e = 1069) 0.06 K/UL ABS IMMATURE GRANULOCYTES (t est code = 1020) 0.01 K/UL ABS NUCLEATED RBCS (test cod e = 46815) 0.00 K/UL Jonatan Elisabeth LandyCOMPREHENSIVE METABOLIC [id number] 00:00:00* Test Item Value Reference Range Interpretation Comme nts GLUCOSE (test code = 2217) 97 MG/DL BUN (test code = 2208) 11 MG/DL CREATININE (test code = 2214) 0.85 MG/DL eGFR (2020 CKD-EPI) (test co de = 73619) 76 ML/MIN/1.73 CALC BUN/CREAT (test code = 2235) 13 RATIO SODIUM (test code = 2231) 144 MEQ/L POTASSIUM (test code = 2228) 4.3 MEQ/L CHLORIDE (test code = 2215) 112 MEQ/L CARBON DIOXIDE (test code = 2206) 23 MEQ/L CALCIUM (test code = 2209) 8.9 MG/DL PROTEIN, TOTAL (test code = 2229) 5.3 G/DL ALBUMIN (test code = 2201) 3.4 G/DL CALC GLOBULIN (test code = 2240) 1.9 G/DL CALC A/G RATIO (test code = 2234) 1.8 RATIO BILIRUBIN, TOTAL (test code = 2207) 1.7 MG/DL ALKALINE PHOSPHATASE (test code = 2204) 175 U/L AST (test code = 2218) 21 U/L ALT (test code = 2219) 12 U/L Jonatan Elisabeth [id number] 00:00:00* Test Item Value Reference Range Interpretation Comme nts FERRITIN (test code = 2075) 55 NG/ML Jonatan Barber AustinIRON BINDING CAPACITY AND IRON AND % [id number] 00:00:00* Test Item Value Reference Range Interpretation Comme nts IRON, SERUM (test code = 2222) 57 UG/DL UNSATURATED IBC (test code = 92524) 259 UG/DL CALC TOTAL IBC (test code = 7) 316 UG/DL CALC % IRON SAT (test code = 2079) 18 % Jonatan EasonVITAMIN B 12 AND FOLIC [id number] 00:00:00* Test Item Value Reference Range Interpretation Comme nts VITAMIN B-12 (test code = 2840) 307 PG/ML FOLIC ACID (test code = 2695) 19.8 UG/L Jonatan EasonPROTHROMBIN TIME (PT)2024-04-02 00:00:00* Test Item Value Reference Range Interpretation Comme nts PROTHROMBIN TIME (PT) (test code = 1402) 16.7 SECONDS INR (test code = 01736) 1.3 Jonatan EasonAFP, TUMOR [id number] 00:00:00* Test Item Value Reference Range Interpretation Comme nts AFP, TUMOR MARKER (test code = 31925) <1.82 NG/ML Jonatan EasonCBC W/AUTO [id number] 00:00:00* Test Item Value Reference Range Interpretation Comme nts WBC (test code = 1001) 4.4 K/UL RBC (test code = 1002) 3.24 M/UL HEMOGLOBIN (test code = 1003) 9.3 G/DL HEMATOCRIT (test code = 1004) 29.1 % MCV (test code = 1005) 89.8 fL MCH (test code = 1006) 28.7 PG MCHC (test code = 1007) 32.0 G/DL RDW (test code = 1038) 18.1 % NEUTROPHILS (test code = 1008) 59.2 % LYMPHOCYTES (test code = 1010) 21.6 % MONOCYTES (test code = 1011) 11.7 % EOSINOPHILS (test code = 1012) 5.9 % BASOPHILS (test code = 1013) 1.4 % IMMATURE GRANULOCYTES (test code = 1036) 0.2 % NUCLEATED RBCS (test code = 1065) 0.0 /100WBC'S PLATELET COUNT (test code = 1015) 130 K/UL ABSOLUTE NEUTROPHILS (test c ode = 1066) 2.63 K/UL ABSOLUTE LYMPHOCYTES (test c ode = 1067) 0.96 K/UL ABSOLUTE MONOCYTES (test cod e = 1068) 0.52 K/UL ABSOLUTE EOSINOPHILS (test c ode = 1040) 0.26 K/UL ABSOLUTE BASOPHILS (test cod e = 1069) 0.06 K/UL ABS IMMATURE GRANULOCYTES (t est code = 1020) 0.01 K/UL ABS NUCLEATED RBCS (test cod e = 77047) 0.00 K/UL Jonatan EasonCOMPREHENSIVE METABOLIC [id number] 00:00:00* Test Item Value Reference Range Interpretation Comme nts GLUCOSE (test code = 2217) 97 MG/DL BUN (test code = 2208) 11 MG/DL CREATININE (test code = 2214) 0.85 MG/DL eGFR (2020 CKD-EPI) (test co de = 22392) 76 ML/MIN/1.73 CALC BUN/CREAT (test code = 2235) 13 RATIO SODIUM (test code = 2231) 144 MEQ/L POTASSIUM (test code = 2228) 4.3 MEQ/L CHLORIDE (test code = 2215) 112 MEQ/L CARBON DIOXIDE (test code = 2206) 23 MEQ/L CALCIUM (test code = 2209) 8.9 MG/DL PROTEIN, TOTAL (test code = 2229) 5.3 G/DL ALBUMIN (test code = 2201) 3.4 G/DL CALC GLOBULIN (test code = 2240) 1.9 G/DL CALC A/G RATIO (test code = 2234) 1.8 RATIO BILIRUBIN, TOTAL (test code = 2207) 1.7 MG/DL ALKALINE PHOSPHATASE (test code = 2204) 175 U/L AST (test code = 2218) 21 U/L ALT (test code = 2219) 12 U/L Jonatan Barber [id number] 00:00:00* Test Item Value Reference Range Interpretation Comme nts FERRITIN (test code = 2074) 55 NG/ML Jonatan EasonIRON BINDING CAPACITY AND IRON AND % [id number] 00:00:00* Test Item Value Reference Range Interpretation Comme nts IRON, SERUM (test code = 2221) 57 UG/DL UNSATURATED IBC (test code = ) 259 UG/DL CALC TOTAL IBC (test code = 2076) 316 UG/DL CALC % IRON SAT (test code = 2078) 18 % Jonatan Barber AustinVITAMIN B 12 AND FOLIC [id number] 00:00:00* Test Item Value Reference Range Interpretation Comme nts VITAMIN B-12 (test code = 2840) 307 PG/ML FOLIC ACID (test code = 2695) 19.8 UG/L Jonatan EasonPROTHROMBIN TIME (PT)2024-04-02 00:00:00* Test Item Value Reference Range Interpretation Comme nts PROTHROMBIN TIME (PT) (test code = 1402) 16.7 SECONDS INR (test code = 92413) 1.3 Jonatan EasonAFP, TUMOR [id number] 00:00:00* Test Item Value Reference Range Interpretation Comme nts AFP, TUMOR MARKER (test code = 03591) <1.82 NG/ML Jonatan EasonCBC W/AUTO [id number] 00:00:00* Test Item Value Reference Range Interpretation Comme nts WBC (test code = 1001) 4.4 K/UL RBC (test code = 1002) 3.24 M/UL HEMOGLOBIN (test code = 1003) 9.3 G/DL HEMATOCRIT (test code = 1004) 29.1 % MCV (test code = 1005) 89.8 fL MCH (test code = 1006) 28.7 PG MCHC (test code = 1007) 32.0 G/DL RDW (test code = 1038) 18.1 % NEUTROPHILS (test code = 1008) 59.2 % LYMPHOCYTES (test code = 1010) 21.6 % MONOCYTES (test code = 1011) 11.7 % EOSINOPHILS (test code = 1012) 5.9 % BASOPHILS (test code = 1013) 1.4 % IMMATURE GRANULOCYTES (test code = 1036) 0.2 % NUCLEATED RBCS (test code = 1065) 0.0 /100WBC'S PLATELET COUNT (test code = 1015) 130 K/UL ABSOLUTE NEUTROPHILS (test c ode = 1066) 2.63 K/UL ABSOLUTE LYMPHOCYTES (test c ode = 1067) 0.96 K/UL ABSOLUTE MONOCYTES (test cod e = 1068) 0.52 K/UL ABSOLUTE EOSINOPHILS (test c ode = 1040) 0.26 K/UL ABSOLUTE BASOPHILS (test cod e = 1069) 0.06 K/UL ABS IMMATURE GRANULOCYTES (t est code = 1020) 0.01 K/UL ABS NUCLEATED RBCS (test cod e = 22239) 0.00 K/UL Jonatan EasonCOMPREHENSIVE METABOLIC [id number] 00:00:00* Test Item Value Reference Range Interpretation Comme nts GLUCOSE (test code = 2217) 97 MG/DL BUN (test code = 2208) 11 MG/DL CREATININE (test code = 2214) 0.85 MG/DL eGFR (2020 CKD-EPI) (test co de = 44481) 76 ML/MIN/1.73 CALC BUN/CREAT (test code = 2235) 13 RATIO SODIUM (test code = 2231) 144 MEQ/L POTASSIUM (test code = 2228) 4.3 MEQ/L CHLORIDE (test code = 2215) 112 MEQ/L CARBON DIOXIDE (test code = 2206) 23 MEQ/L CALCIUM (test code = 2209) 8.9 MG/DL PROTEIN, TOTAL (test code = 2229) 5.3 G/DL ALBUMIN (test code = 2201) 3.4 G/DL CALC GLOBULIN (test code = 2240) 1.9 G/DL CALC A/G RATIO (test code = 2234) 1.8 RATIO BILIRUBIN, TOTAL (test code = 2207) 1.7 MG/DL ALKALINE PHOSPHATASE (test code = 2204) 175 U/L AST (test code = 2218) 21 U/L ALT (test code = 2219) 12 U/L Jonatan [id number] 00:00:00* Test Item Value Reference Range Interpretation Comme nts FERRITIN (test code = 2074) 55 NG/ML Jonatan EasonIRON BINDING CAPACITY AND IRON AND % [id number] 00:00:00* Test Item Value Reference Range Interpretation Comme nts IRON, SERUM (test code = 2221) 57 UG/DL UNSATURATED IBC (test code = ) 259 UG/DL CALC TOTAL IBC (test code = 2076) 316 UG/DL CALC % IRON SAT (test code = 2078) 18 % Jonatan Barber AustinVITAMIN B 12 AND FOLIC [id number] 00:00:00* Test Item Value Reference Range Interpretation Comme nts VITAMIN B-12 (test code = 2840) 307 PG/ML FOLIC ACID (test code = 2695) 19.8 UG/L Jonatan EasonPROTHROMBIN TIME (PT)2024-04-02 00:00:00* Test Item Value Reference Range Interpretation Comme nts PROTHROMBIN TIME (PT) (test code = 1402) 16.7 SECONDS INR (test code = 95163) 1.3 Jonatan EasonAFP, TUMOR [id number] 00:00:00* Test Item Value Reference Range Interpretation Comme nts AFP, TUMOR MARKER (test code = 71129) <1.82 NG/ML Jonatan EasonCBC W/AUTO [id number] 00:00:00* Test Item Value Reference Range Interpretation Comme nts WBC (test code = 1001) 4.4 K/UL RBC (test code = 1002) 3.24 M/UL HEMOGLOBIN (test code = 1003) 9.3 G/DL HEMATOCRIT (test code = 1004) 29.1 % MCV (test code = 1005) 89.8 fL MCH (test code = 1006) 28.7 PG MCHC (test code = 1007) 32.0 G/DL RDW (test code = 1038) 18.1 % NEUTROPHILS (test code = 1008) 59.2 % LYMPHOCYTES (test code = 1010) 21.6 % MONOCYTES (test code = 1011) 11.7 % EOSINOPHILS (test code = 1012) 5.9 % BASOPHILS (test code = 1013) 1.4 % IMMATURE GRANULOCYTES (test code = 1036) 0.2 % NUCLEATED RBCS (test code = 1065) 0.0 /100WBC'S PLATELET COUNT (test code = 1015) 130 K/UL ABSOLUTE NEUTROPHILS (test c ode = 1066) 2.63 K/UL ABSOLUTE LYMPHOCYTES (test c ode = 1067) 0.96 K/UL ABSOLUTE MONOCYTES (test cod e = 1068) 0.52 K/UL ABSOLUTE EOSINOPHILS (test c ode = 1040) 0.26 K/UL ABSOLUTE BASOPHILS (test cod e = 1069) 0.06 K/UL ABS IMMATURE GRANULOCYTES (t est code = 1020) 0.01 K/UL ABS NUCLEATED RBCS (test cod e = 49699) 0.00 K/UL Jonatan EasonCBC W/AUTO [id number] 00:00:00* Test Item Value Reference Range Interpretation Comme nts WBC (test code = 1001) 4.4 K/UL RBC (test code = 1002) 3.24 M/UL HEMOGLOBIN (test code = 1003) 9.3 G/DL HEMATOCRIT (test code = 1004) 29.1 % MCV (test code = 1005) 89.8 fL MCH (test code = 1006) 28.7 PG MCHC (test code = 1007) 32.0 G/DL RDW (test code = 1038) 18.1 % NEUTROPHILS (test code = 1008) 59.2 % LYMPHOCYTES (test code = 1010) 21.6 % MONOCYTES (test code = 1011) 11.7 % EOSINOPHILS (test code = 1012) 5.9 % BASOPHILS (test code = 1013) 1.4 % IMMATURE GRANULOCYTES (test code = 1036) 0.2 % NUCLEATED RBCS (test code = 1065) 0.0 /100WBC'S PLATELET COUNT (test code = 1015) 130 K/UL ABSOLUTE NEUTROPHILS (test c ode = 1066) 2.63 K/UL ABSOLUTE LYMPHOCYTES (test c ode = 1067) 0.96 K/UL ABSOLUTE MONOCYTES (test cod e = 1068) 0.52 K/UL ABSOLUTE EOSINOPHILS (test c ode = 1040) 0.26 K/UL ABSOLUTE BASOPHILS (test cod e = 1069) 0.06 K/UL ABS IMMATURE GRANULOCYTES (t est code = 1020) 0.01 K/UL ABS NUCLEATED RBCS (test cod e = 01681) 0.00 K/UL Jonatan F AustinCOMPREHENSIVE METABOLIC [id number] 00:00:00* Test Item Value Reference Range Interpretation Comme nts GLUCOSE (test code = 2217) 97 MG/DL BUN (test code = 2208) 11 MG/DL CREATININE (test code = 2214) 0.85 MG/DL eGFR (2020 CKD-EPI) (test co de = 98342) 76 ML/MIN/1.73 CALC BUN/CREAT (test code = 2235) 13 RATIO SODIUM (test code = 2231) 144 MEQ/L POTASSIUM (test code = 2228) 4.3 MEQ/L CHLORIDE (test code = 2215) 112 MEQ/L CARBON DIOXIDE (test code = 2206) 23 MEQ/L CALCIUM (test code = 2209) 8.9 MG/DL PROTEIN, TOTAL (test code = 2229) 5.3 G/DL ALBUMIN (test code = 2201) 3.4 G/DL CALC GLOBULIN (test code = 2240) 1.9 G/DL CALC A/G RATIO (test code = 2234) 1.8 RATIO BILIRUBIN, TOTAL (test code = 2207) 1.7 MG/DL ALKALINE PHOSPHATASE (test code = 2204) 175 U/L AST (test code = 2218) 21 U/L ALT (test code = 221) 12 U/L Jonatan Barber [id number] 00:00:00* Test Item Value Reference Range Interpretation Comme nts FERRITIN (test code = 2074) 55 NG/ML Jonatan EasonIRON BINDING CAPACITY AND IRON AND % [id number] 00:00:00* Test Item Value Reference Range Interpretation Comme nts IRON, SERUM (test code = 2221) 57 UG/DL UNSATURATED IBC (test code = ) 259 UG/DL CALC TOTAL IBC (test code = 2076) 316 UG/DL CALC % IRON SAT (test code = 2078) 18 % Jonatan EasonCOMPREHENSIVE METABOLIC [id number] 00:00:00* Test Item Value Reference Range Interpretation Comme nts GLUCOSE (test code = 2216) 97 MG/DL BUN (test code = 2207) 11 MG/DL CREATININE (test code = 4) 0.85 MG/DL eGFR (2020 CKD-EPI) (test co de = 43856) 76 ML/MIN/1.73 CALC BUN/CREAT (test code = 5) 13 RATIO SODIUM (test code = 2231) 144 MEQ/L POTASSIUM (test code = 2228) 4.3 MEQ/L CHLORIDE (test code = 2215) 112 MEQ/L CARBON DIOXIDE (test code = 2206) 23 MEQ/L CALCIUM (test code = 2209) 8.9 MG/DL PROTEIN, TOTAL (test code = 2229) 5.3 G/DL ALBUMIN (test code = 2201) 3.4 G/DL CALC GLOBULIN (test code = 2240) 1.9 G/DL CALC A/G RATIO (test code = 2234) 1.8 RATIO BILIRUBIN, TOTAL (test code = 2207) 1.7 MG/DL ALKALINE PHOSPHATASE (test code = 2204) 175 U/L AST (test code = 2218) 21 U/L ALT (test code = 2219) 12 U/L Jonatan Barber AustinVITAMIN B 12 AND FOLIC [id number] 00:00:00* Test Item Value Reference Range Interpretation Comme nts VITAMIN B-12 (test code = 2840) 307 PG/ML FOLIC ACID (test code = 2695) 19.8 UG/L Jonatan Barber AustinPROTHROMBIN TIME (PT)2024-04-02 00:00:00* Test Item Value Reference Range Interpretation Comme nts PROTHROMBIN TIME (PT) (test code = 1402) 16.7 SECONDS INR (test code = 60229) 1.3 Jonatan Barber AustinAFP, TUMOR [id number] 00:00:00* Test Item Value Reference Range Interpretation Comme nts AFP, TUMOR MARKER (test code = 26403) <1.82 NG/ML Jonatan Barber [id number] 00:00:00* Test Item Value Reference Range Interpretation Comme nts FERRITIN (test code = 2075) 55 NG/ML Jonatan EasonIRON BINDING CAPACITY AND IRON AND % [id number] 00:00:00* Test Item Value Reference Range Interpretation Comme nts IRON, SERUM (test code = 2222) 57 UG/DL UNSATURATED IBC (test code = 32772) 259 UG/DL CALC TOTAL IBC (test code = 7) 316 UG/DL CALC % IRON SAT (test code = 2079) 18 % Jonatan Barber AustinVITAMIN B 12 AND FOLIC [id number] 00:00:00* Test Item Value Reference Range Interpretation Comme nts VITAMIN B-12 (test code = 2840) 307 PG/ML FOLIC ACID (test code = 2695) 19.8 UG/L Jonatan Barber AustinPROTHROMBIN TIME (PT)2024-04-02 00:00:00* Test Item Value Reference Range Interpretation Comme nts PROTHROMBIN TIME (PT) (test code = 1402) 16.7 SECONDS INR (test code = 55833) 1.3 Jonatan Barber AustinAFP, TUMOR [id number] 00:00:00* Test Item Value Reference Range Interpretation Comme nts AFP, TUMOR MARKER (test code = 96431) <1.82 NG/ML Jonatan EasonCBC W/AUTO [id number] 00:00:00* Test Item Value Reference Range Interpretation Comme nts WBC (test code = 1001) 4.4 K/UL RBC (test code = 1002) 3.24 M/UL HEMOGLOBIN (test code = 1003) 9.3 G/DL HEMATOCRIT (test code = 1004) 29.1 % MCV (test code = 1005) 89.8 fL MCH (test code = 1006) 28.7 PG MCHC (test code = 1007) 32.0 G/DL RDW (test code = 1038) 18.1 % NEUTROPHILS (test code = 1008) 59.2 % LYMPHOCYTES (test code = 1010) 21.6 % MONOCYTES (test code = 1011) 11.7 % EOSINOPHILS (test code = 1012) 5.9 % BASOPHILS (test code = 1013) 1.4 % IMMATURE GRANULOCYTES (test code = 1036) 0.2 % NUCLEATED RBCS (test code = 1065) 0.0 /100WBC'S PLATELET COUNT (test code = 1015) 130 K/UL ABSOLUTE NEUTROPHILS (test c ode = 1066) 2.63 K/UL ABSOLUTE LYMPHOCYTES (test c ode = 1067) 0.96 K/UL ABSOLUTE MONOCYTES (test cod e = 1068) 0.52 K/UL ABSOLUTE EOSINOPHILS (test c ode = 1040) 0.26 K/UL ABSOLUTE BASOPHILS (test cod e = 1069) 0.06 K/UL ABS IMMATURE GRANULOCYTES (t est code = 1020) 0.01 K/UL ABS NUCLEATED RBCS (test cod e = 63004) 0.00 K/UL Jonatan EasonCOMPREHENSIVE METABOLIC [id number] 00:00:00* Test Item Value Reference Range Interpretation Comme nts GLUCOSE (test code = 2217) 97 MG/DL BUN (test code = 2208) 11 MG/DL CREATININE (test code = 2214) 0.85 MG/DL eGFR (2020 CKD-EPI) (test co de = 32538) 76 ML/MIN/1.73 CALC BUN/CREAT (test code = 2235) 13 RATIO SODIUM (test code = 2231) 144 MEQ/L POTASSIUM (test code = 2228) 4.3 MEQ/L CHLORIDE (test code = 2215) 112 MEQ/L CARBON DIOXIDE (test code = 6) 23 MEQ/L CALCIUM (test code = 9) 8.9 MG/DL PROTEIN, TOTAL (test code = 2229) 5.3 G/DL ALBUMIN (test code = 1) 3.4 G/DL CALC GLOBULIN (test code = 2240) 1.9 G/DL CALC A/G RATIO (test code = 2233) 1.8 RATIO BILIRUBIN, TOTAL (test code = 2206) 1.7 MG/DL ALKALINE PHOSPHATASE (test code = 2203) 175 U/L AST (test code = 8) 21 U/L ALT (test code = 2218) 12 U/L Jonatan Elisabeth [id number] 00:00:00* Test Item Value Reference Range Interpretation Comme nts FERRITIN (test code = 2074) 55 NG/ML Jonatan EasonIRON BINDING CAPACITY AND IRON AND % [id number] 00:00:00* Test Item Value Reference Range Interpretation Comme [facility] IRON, SERUM (test code = 2221) 57 UG/DL UNSATURATED IBC (test code = 73479) 259 UG/DL CALC TOTAL IBC (test code = 2076) 316 UG/DL CALC % IRON SAT (test code = 2078) 18 % Jonatan Elisabeth LandyVITAMIN B 12 AND FOLIC [id number] 00:00:00* Test Item Value Reference Range Interpretation Comme [facility] VITAMIN B-12 (test code = 2840) 307 PG/ML FOLIC ACID (test code = 2695) 19.8 UG/L Jonatan EasonPROTHROMBIN TIME (PT)2024-04-02 00:00:00* Test Item Value Reference Range Interpretation Comme nts PROTHROMBIN TIME (PT) (test code = 1402) 16.7 SECONDS INR (test code = 53407) 1.3 Jonatan EasonAFP, TUMOR [id number] 00:00:00* Test Item Value Reference Range Interpretation Comme [facility] AFP, TUMOR MARKER (test code = 96543) <1.82 NG/ML Jonatan EasonPrepare Packed RBC (in units), 1 [id number] 17:25:37* Test Item Value Reference Range Interpretation Comme nts Unit Blood Type (test code = 4410) O Pos ISBT Blood Type Code (test code = 654902) 5100 Unit Number (test code = 4411) [id number] Blood Expiration Date & Time (test code = 050899) [id number] Status Information (test code = 4412) Issued Product Identification (test code = 4413) Red Blood Cells Product Code (test code = 4414) [id number] Performed at [facility] Laboratory Services [facility] Blood [place] [address]Toll Free: [phone] No. [id number] Cross Match Result (test code = 4409) [facility] [id number] 06:31:25* Test Item Value Reference Range Interpretation Comme nts ELUTION ID (test code = 5160) Undetermined Spec Possible WAA i n eluatePerformed at [facility] Laboratory Services [place] [address]Toll Free: [phone] No. [id number] [facility] MONOSPECIFIC IGG [id number] 05:30:51 * Test Item Value Reference Range Interpretation Comme nts KIP IGG (test code = 1422) Positive 1+ Performed at [place] [address]Toll Free: [phone] No. [id number] [facility] [id number] 05:30:27 ANTIBODY IDAnti-EUndetermined Spec [facility]Un[facility] POLYSPECIFIC [id number] 05:30:25* Test Item Value Reference Range Interpretation Comme nts KIP POLY (test code = 1610) Weak Positive Performed at [facility] Laboratory [place] [address]Toll Free: [phone] No. [id number] [facility] MONOSPECIFIC C3 [id number] 05:30:25 * Test Item Value Reference Range Interpretation Comme nts KIP C3 (test code = 1421) Negative Performed at [facility] Laboratory [place] [address]Toll Free: [phone] No. [id number] [facility] [id number] 02:40:32* Test Item Value Reference Range Interpretation Comme nts LACTIC ACID (test code = 6587841404) 1.77 mmol/L 0.50-2.20 Lab Interpretation (test cod e = 16831-7) Normal [facility] PEL[facility] W [id number] 01:23:53CT ABDOMEN PELVIS W CONTRAST History/Indication: ? Abdominal distension Technique: Axial CT images of the abdomen and pelvis following administration of IVcontrast. No oral contrast was given.CT scandone according to ALARA (As Low As Reasonably Achievable)Technical Quality: Adequate Comparison: CTabdomen pelvis with contrast 12/23/2023 Findings: Lungs: No evidence for pleural effusion at visualized lung bases. Liver & Biliary Tree: No focal hepatic mass is identified. TIPS stent isnoted spanning from the right hepatic vein to the right portal vein.Nonocclusive thrombus is identified justbeyond the stent in the mainportal vein with clot burden significantly reduced compared to prior CTofthe abdomen from December 2023. 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 TheTIPS stent appears patent.Gallbladder: The gallbladder is unremarkable.Spleen: The spleen is normal in size and appearance.Pancreas: The pancreas is unremarkable.Adrenal glands: The adrenal glands are normal in size and appearance.Kidneys: No evidenc e for hydronephrosis or nephrolithiasis. No perinephricfree fluid is seen. Bowel: No evidence for bowel obstruction. There is moderate stoolthroughout the colon.Appendix: Appendix is not definitivelyvisualized in the right lowerquadrant.Peritoneum: No intraperitoneal free fluid. No intraperitonealfree air. Abdominal and pelvic lymph nodes: There are no enlarged lymph nodes.Abdominal vasculature: The abdominal aorta is nonaneurysmal. Urinary Bladder: Urinary bladder is moderately distended. Noevidence forbladder calculi.Pelvis: Patient is status post hysterectomy. Bones and Soft Tissues: No aggressive osseous lesion is seen. No evidencefor acute osseous abnormality. No focal drainable collection is seen. Thereis moderate diffuse anasarca.[facility] MarshallPROTHROMBIN TIME / [id number] 23:34:32* Test Item Value Reference Range Interpretation Comme [facility] PROTIME PATIENT (test code = 5964-2) 14.3 10.1-12.6 H INR (test code = 6301-6) 1.2 Normal INR <1.1; Warfarin Therapeutic range 2.0 to 3.0 or 2.5 to 3.5, depending upon the indications. Lab Interpretation (test code = 38271-9) Abnormal [facility] MarshallACTIVATED PARTIAL THRMPLAS [id number] 23:34:31* Test Item Value Reference Range Interpretation Comme [facility] APTT Patient (test code = 3173-2) 26-36 L FRANKO (test code = FRANKO) [facility] patient population mean normal value for aPTT is 30 seconds. Lab Interpretation (test code = 84713-3) Abnormal [facility] MarshallTROPONIN [id number] 23:03:58* Test Item Value Reference Range Interpretation Comme [facility] TROPONIN I (test code = 9970323491) 0.005 ng/mL <=0.034 FRANKO (test code = FRANKO) [...] of biotin. Lab Interpretation (test code = 75545-9) Normal [facility] MarshallN-TERMINAL [id number] 23:01:13* Test Item Value Reference Range Interpretation Comme [facility] NT-proBNP (test code = 04374-9) 280 pg/mL <=125 FRANKO (test code = FRANKO) Result Indeterminate-Consid er causes of NT-proBNP elevation other than Heart failure such as acute coronary syndrome, pulmonary embolism, pulmonary hypertension, sepsis, stroke, and renal dysfunction. Lab Interpretation (test code = 15293-6) Abnormal [facility] MarshallEthanol2024-10-28 22:55:14 ALCOHOL<10mg/dL03/10/2024 5:55 PM [facility]<10 [id number] Toxic>100 Depression of COMPOTYPE OPERATOR>400 Fatalities ReportedUnAdventHealthAmmonia, [id number] 22:54:37* Test Item Value Reference Range Interpretation Comme nts AMMONIA (test code = 9065999514) 52 umol/L 9-33 H Lab Interpretation (test cod e = 28518-3) Abnormal [facility]. METABOLIC PANEL (84605)2024-03-10 22:52:35* Test Item Value Reference Range Interpretation Comme nts NA (test code = 2716750338) 139 mmol/L 135-145 K (test code = 8766659825) 3.3 mmol/L 3.5-5.0 L CL (test code = 7999229659) 113 mmol/L 98-108 H CO2 TOTAL (test code = 1078695004) 19 mmol/L 23-31 L AGAP (test code = 3738058264) 7 2-16 BUN (test code = 6047656136) 12 mg/dL 7-23 GLUCOSE (test code = 8918965385) 82 mg/dL 70-110 CREATININE (test code = 2160-0) 0.61 mg/dL 0.50-1.04 TOTAL BILI (test code = 5993223056) 1.8 mg/dL 0.1-1.1 H CALCIUM (test code = 5839578682) 8.6 mg/dL 8.6-10.6 T PROTEIN (test code = 6499584414) 6.1 g/dL 6.3-8.2 L ALBUMIN (test code = 5592013670) 3.3 g/dL 3.5-5.0 L ALK PHOS (test code = 5824667888) 149 U/L 34-122 H ALTv (test code = 1742-6) 17 U/L 5-35 AST(SGOT) (test code = 5342079328) 23 U/L 13-40 eGFR (test code = 34607-7) 99.4 mL/min/1.73m2 CKD-EPI eGFR (2020). Assuming creatinine has been stable day-to-day for at least three months, the eGFR indicates Category G1 (>= 90 mL/min/1.73 m2) Lab Interpretation (test code = 44574-7) Abnormal [facility] WITH [id number] 22:45:51* Test Item Value Reference Range Interpretation Comme nts WBC (test code = 6690-2) 4.31 4.30-11.10 RBC (test code = 789-8) 3.10 3.93-5.25 L HGB (test code = 718-7) 8.3 g/dL 11.6-15.0 L HCT (test code = 4544-3) 28.1 % 35.7-45.2 L MCV (test code = 787-2) 90.6 fL 80.6-95.5 MCH (test code = 785-6) 26.8 pg 25.9-32.8 MCHC (test code = 786-4) 29.5 g/dL 31.6-35.1 L RDW-SD (test code = 48808-3) 53.4 fL 39.0-49.9 H RDW-CV (test code = 788-0) 16.2 % 12.0-15.5 H PLT (test code = 777-3) 115 166-358 L MPV (test code = 23579-7) 10.5 fL 9.5-12.9 NRBC/100 WBC (test code = 8624363619) 0.0 0.0-10.0 NRBC x10^3 (test code = 8610344508) See_Comment [Automated messa ge] The system which generated this result transmitted reference range: 10*3/?L. The reference range was not used to interpret this result as normal/abnormal. GRAN MAT (NEUT) % (test code = 770-8) 54.8 % IMM GRAN % (test code = 2354366992) 0.20 % LYMPH % (test code = 736-9) 22.3 % MONO % (test code = 5905-5) 15.3 % EOS % (test code = 713-8) 5.8 % BASO % (test code = 706-2) 1.6 % GRAN MAT x10^3(ANC) (test code = 0256335024) 2.36 10*3/uL 1.88-7.09 IMM GRAN x10^3 (test code = 0806781032) 0.00-0.06 LYMPH x10^3 (test code = 731-0) 0.96 10*3/uL 1.32-3.29 L MONO x10^3 (test code = 742-7) 0.66 10*3/uL 0.33-0.92 EOS x10^3 (test code = 711-2) 0.25 10*3/uL 0.03-0.39 BASO x10^3 (test code = 704-7) 0.07 10*3/uL 0.01-0.07 Lab Interpretation (test code = 07616-4) Abnormal [facility] MarshallCT HEAD WO [id number] 22:18:26EXAM: CT HEAD WO CONTRAST HISTORY: Mental status change, unknown cause TECHNIQUE: CT of the head was performed without intravenous contrast.Sagittal and coronal reformats were generated. COMPARISON: None. FINDINGS: This scan is degraded by motion artifact. The ventricles and sulci are normal in caliber and configuration. Nohydrocephalus, midline shift or pathological extra-axial fluid collectionis present. The basal cisterns are unremarkable. There is no acute intracranial hemorrhage or significant mass effect. Noparenchymal attenuation abnormality. The bro-white matter differentiationis preserved. The mastoid air cells and paranasal air sinuses are clear. The calvariumand central skull base are unremarkable.[facility] MarshallTSH2024-10-18 00:00:00* Test Item Value Reference Range Interpretation Comme nts TSH, THIRD GENERATION (test code = 2821) NOTE UIU/ML Jonatan F [id number] 00:00:00* Test Item Value Reference Range Interpretation Comme nts TSH, THIRD GENERATION (test code = 2821) NOTE UIU/ML Jonatan F [id number] 00:00:00* Test Item Value Reference Range Interpretation Comme nts TSH, THIRD GENERATION (test code = 2821) NOTE UIU/ML Jonatan F [id number] 00:00:00* Test Item Value Reference Range Interpretation Comme nts TSH, THIRD GENERATION (test code = 2821) NOTE UIU/ML Jonatan F [id number] 00:00:00* Test Item Value Reference Range Interpretation Comme nts TSH, THIRD GENERATION (test code = 2821) NOTE UIU/ML Jonatan EasonHjojluMET9547-46-37 00:00:00* Test Item Value Reference Range Interpretation Comme nts TSH, THIRD GENERATION (test code = 2821) NOTE UIU/ML Jonatan Barber [id number] 00:00:00* Test Item Value Reference Range Interpretation Comme nts TSH, THIRD GENERATION (test code = 2821) NOTE UIU/ML Jonatan EasonIxqaafBQN1735-00-13 00:00:00* Test Item Value Reference Range Interpretation Comme nts TSH, THIRD GENERATION (test code = 2821) NOTE UIU/ML Jonatan EasonCOMPREHENSIVE METABOLIC [id number] 00:00:00* Test Item Value Reference Range Interpretation Comme nts GLUCOSE (test code = 2217) TEST NOT PERFORMED MG/DL BUN (test code = 2208) TEST NOT PERFORME D MG/DL CREATININE (test code = 2214) TEST NOT PERFORMED MG/DL eGFR (2020 CKD-EPI) (test code = 82433) TEST NOT PERFORMED ML/MIN/1.73 CALC BUN/CREAT (test code = 2235) TEST NOT PERFORMED RATIO SODIUM (test code = 2231) TEST NOT PERFORMED MEQ/L POTASSIUM (test code = 2228) TEST NOT PERFORMED MEQ/L CHLORIDE (test code = 2215) TEST NOT PERFORMED MEQ/L CARBON DIOXIDE (test code = 2206) TEST NOT PERFORMED MEQ/L CALCIUM (test code = 2209) TEST NOT PERFORMED MG/DL PROTEIN, TOTAL (test code = 2229) TEST NOT PERFORMED G/DL ALBUMIN (test code = 2201) TEST NOT PERFORMED G/DL CALC GLOBULIN (test code = 2240) TEST NOT PERFORMED G/DL CALC A/G RATIO (test code = 2234) TEST NOT PERFORMED RATIO BILIRUBIN, TOTAL (test code = 2207) TEST NOT PERFORMED MG/DL ALKALINE PHOSPHATASE (test code = 2204) TEST NOT PERFORMED U/L AST (test code = 2218) TEST NOT PERFORME D U/L ALT (test code = 2219) TEST NOT PERFORME D U/L Jonatan EasonLIPID [id number] 00:00:00* Test Item Value Reference Range Interpretation Comme nts CHOLESTEROL (test code = 2210) TEST NOT PERFORMED MG/DL TRIGLYCERIDES (test code = 2232) TEST NOT PERFORMED MG/DL HDL CHOLESTEROL (test code = 2220) TEST NOT PERFORMED MG/DL CALC LDL CHOL (test code = 2237) TEST NOT PERFORMED MG/DL RISK RATIO LDL/HDL (test code = 2238) TEST NOT PERFORMED RATIO Jonatan F AustinCOMPREHENSIVE METABOLIC [id number] 00:00:00* Test Item Value Reference Range Interpretation Comme nts GLUCOSE (test code = 2217) TEST NOT PERFORMED MG/DL BUN (test code = 2208) TEST NOT PERFORME D MG/DL CREATININE (test code = 2214) TEST NOT PERFORMED MG/DL eGFR (2020 CKD-EPI) (test code = 66278) TEST NOT PERFORMED ML/MIN/1.73 CALC BUN/CREAT (test code = 2235) TEST NOT PERFORMED RATIO SODIUM (test code = 2231) TEST NOT PERFORMED MEQ/L POTASSIUM (test code = 2228) TEST NOT PERFORMED MEQ/L CHLORIDE (test code = 2215) TEST NOT PERFORMED MEQ/L CARBON DIOXIDE (test code = 2206) TEST NOT PERFORMED MEQ/L CALCIUM (test code = 2209) TEST NOT PERFORMED MG/DL PROTEIN, TOTAL (test code = 2229) TEST NOT PERFORMED G/DL ALBUMIN (test code = 2201) TEST NOT PERFORMED G/DL CALC GLOBULIN (test code = 2240) TEST NOT PERFORMED G/DL CALC A/G RATIO (test code = 2234) TEST NOT PERFORMED RATIO BILIRUBIN, TOTAL (test code = 2207) TEST NOT PERFORMED MG/DL ALKALINE PHOSPHATASE (test code = 2204) TEST NOT PERFORMED U/L AST (test code = 2218) TEST NOT PERFORME D U/L ALT (test code = 2219) TEST NOT PERFORME D U/L Jonatan F AustinLIPID [id number] 00:00:00* Test Item Value Reference Range Interpretation Comme nts CHOLESTEROL (test code = 2210) TEST NOT PERFORMED MG/DL TRIGLYCERIDES (test code = 2232) TEST NOT PERFORMED MG/DL HDL CHOLESTEROL (test code = 2220) TEST NOT PERFORMED MG/DL CALC LDL CHOL (test code = 2237) TEST NOT PERFORMED MG/DL RISK RATIO LDL/HDL (test code = 2238) TEST NOT PERFORMED RATIO Jonatan F AustinCOMPREHENSIVE METABOLIC [id number] 00:00:00* Test Item Value Reference Range Interpretation Comme nts GLUCOSE (test code = 2217) TEST NOT PERFORMED MG/DL BUN (test code = 2208) TEST NOT PERFORME D MG/DL CREATININE (test code = 2214) TEST NOT PERFORMED MG/DL eGFR (2020 CKD-EPI) (test code = 65707) TEST NOT PERFORMED ML/MIN/1.73 CALC BUN/CREAT (test code = 2235) TEST NOT PERFORMED RATIO SODIUM (test code = 2231) TEST NOT PERFORMED MEQ/L POTASSIUM (test code = 2228) TEST NOT PERFORMED MEQ/L CHLORIDE (test code = 2215) TEST NOT PERFORMED MEQ/L CARBON DIOXIDE (test code = 2206) TEST NOT PERFORMED MEQ/L CALCIUM (test code = 2209) TEST NOT PERFORMED MG/DL PROTEIN, TOTAL (test code = 2229) TEST NOT PERFORMED G/DL ALBUMIN (test code = 2201) TEST NOT PERFORMED G/DL CALC GLOBULIN (test code = 2240) TEST NOT PERFORMED G/DL CALC A/G RATIO (test code = 2234) TEST NOT PERFORMED RATIO BILIRUBIN, TOTAL (test code = 2207) TEST NOT PERFORMED MG/DL ALKALINE PHOSPHATASE (test code = 2204) TEST NOT PERFORMED U/L AST (test code = 2218) TEST NOT PERFORME D U/L ALT (test code = 2219) TEST NOT PERFORME D U/L Jonatan Elisabeth AustinLIPID [id number] 00:00:00* Test Item Value Reference Range Interpretation Comme nts CHOLESTEROL (test code = 2210) TEST NOT PERFORMED MG/DL TRIGLYCERIDES (test code = 2232) TEST NOT PERFORMED MG/DL HDL CHOLESTEROL (test code = 2220) TEST NOT PERFORMED MG/DL CALC LDL CHOL (test code = 2237) TEST NOT PERFORMED MG/DL RISK RATIO LDL/HDL (test code = 2238) TEST NOT PERFORMED RATIO Jonatan F AustinCOMPREHENSIVE METABOLIC [id number] 00:00:00* Test Item Value Reference Range Interpretation Comme nts GLUCOSE (test code = 2217) TEST NOT PERFORMED MG/DL BUN (test code = 2208) TEST NOT PERFORME D MG/DL CREATININE (test code = 2214) TEST NOT PERFORMED MG/DL eGFR (2020 CKD-EPI) (test code = 21324) TEST NOT PERFORMED ML/MIN/1.73 CALC BUN/CREAT (test code = 2235) TEST NOT PERFORMED RATIO SODIUM (test code = 2231) TEST NOT PERFORMED MEQ/L POTASSIUM (test code = 2228) TEST NOT PERFORMED MEQ/L CHLORIDE (test code = 2215) TEST NOT PERFORMED MEQ/L CARBON DIOXIDE (test code = 2206) TEST NOT PERFORMED MEQ/L CALCIUM (test code = 2209) TEST NOT PERFORMED MG/DL PROTEIN, TOTAL (test code = 2229) TEST NOT PERFORMED G/DL ALBUMIN (test code = 2201) TEST NOT PERFORMED G/DL CALC GLOBULIN (test code = 2240) TEST NOT PERFORMED G/DL CALC A/G RATIO (test code = 2234) TEST NOT PERFORMED RATIO BILIRUBIN, TOTAL (test code = 2207) TEST NOT PERFORMED MG/DL ALKALINE PHOSPHATASE (test code = 2204) TEST NOT PERFORMED U/L AST (test code = 2218) TEST NOT PERFORME D U/L ALT (test code = 2219) TEST NOT PERFORME D U/L Jonatan F AustinLIPID [id number] 00:00:00* Test Item Value Reference Range Interpretation Comme nts CHOLESTEROL (test code = 2210) TEST NOT PERFORMED MG/DL TRIGLYCERIDES (test code = 2232) TEST NOT PERFORMED MG/DL HDL CHOLESTEROL (test code = 2220) TEST NOT PERFORMED MG/DL CALC LDL CHOL (test code = 2237) TEST NOT PERFORMED MG/DL RISK RATIO LDL/HDL (test code = 2238) TEST NOT PERFORMED RATIO Jonatan F AustinLIPID [id number] 00:00:00* Test Item Value Reference Range Interpretation Comme nts CHOLESTEROL (test code = 2210) TEST NOT PERFORMED MG/DL TRIGLYCERIDES (test code = 2232) TEST NOT PERFORMED MG/DL HDL CHOLESTEROL (test code = 2220) TEST NOT PERFORMED MG/DL CALC LDL CHOL (test code = 2237) TEST NOT PERFORMED MG/DL RISK RATIO LDL/HDL (test code = 2238) TEST NOT PERFORMED RATIO Jonatan F AustinCOMPREHENSIVE METABOLIC [id number] 00:00:00* Test Item Value Reference Range Interpretation Comme nts GLUCOSE (test code = 2217) TEST NOT PERFORMED MG/DL BUN (test code = 2208) TEST NOT PERFORME D MG/DL CREATININE (test code = 2214) TEST NOT PERFORMED MG/DL eGFR (2020 CKD-EPI) (test code = 65680) TEST NOT PERFORMED ML/MIN/1.73 CALC BUN/CREAT (test code = 2235) TEST NOT PERFORMED RATIO SODIUM (test code = 2231) TEST NOT PERFORMED MEQ/L POTASSIUM (test code = 2228) TEST NOT PERFORMED MEQ/L CHLORIDE (test code = 2215) TEST NOT PERFORMED MEQ/L CARBON DIOXIDE (test code = 2206) TEST NOT PERFORMED MEQ/L CALCIUM (test code = 2209) TEST NOT PERFORMED MG/DL PROTEIN, TOTAL (test code = 222) TEST NOT PERFORMED G/DL ALBUMIN (test code = 2201) TEST NOT PERFORMED G/DL CALC GLOBULIN (test code = 2240) TEST NOT PERFORMED G/DL CALC A/G RATIO (test code = 2234) TEST NOT PERFORMED RATIO BILIRUBIN, TOTAL (test code = 220) TEST NOT PERFORMED MG/DL ALKALINE PHOSPHATASE (test code = 2204) TEST NOT PERFORMED U/L AST (test code = 2218) TEST NOT PERFORME D U/L ALT (test code = 2219) TEST NOT PERFORME D U/L Jonatan EasonCOMPREHENSIVE METABOLIC [id number] 00:00:00* Test Item Value Reference Range Interpretation Comme nts GLUCOSE (test code = 2217) TEST NOT PERFORMED MG/DL BUN (test code = 2208) TEST NOT PERFORME D MG/DL CREATININE (test code = 2214) TEST NOT PERFORMED MG/DL eGFR (2020 CKD-EPI) (test code = 77942) TEST NOT PERFORMED ML/MIN/1.73 CALC BUN/CREAT (test code = 2235) TEST NOT PERFORMED RATIO SODIUM (test code = 2231) TEST NOT PERFORMED MEQ/L POTASSIUM (test code = 2228) TEST NOT PERFORMED MEQ/L CHLORIDE (test code = 2215) TEST NOT PERFORMED MEQ/L CARBON DIOXIDE (test code = 2206) TEST NOT PERFORMED MEQ/L CALCIUM (test code = 2209) TEST NOT PERFORMED MG/DL PROTEIN, TOTAL (test code = 2229) TEST NOT PERFORMED G/DL ALBUMIN (test code = 2201) TEST NOT PERFORMED G/DL CALC GLOBULIN (test code = 2240) TEST NOT PERFORMED G/DL CALC A/G RATIO (test code = 2234) TEST NOT PERFORMED RATIO BILIRUBIN, TOTAL (test code = 2207) TEST NOT PERFORMED MG/DL ALKALINE PHOSPHATASE (test code = 2204) TEST NOT PERFORMED U/L AST (test code = 2218) TEST NOT PERFORME D U/L ALT (test code = 2219) TEST NOT PERFORME D U/L Jonatan F AustinLIPID [id number] 00:00:00* Test Item Value Reference Range Interpretation Comme nts CHOLESTEROL (test code = 2210) TEST NOT PERFORMED MG/DL TRIGLYCERIDES (test code = 2232) TEST NOT PERFORMED MG/DL HDL CHOLESTEROL (test code = 2220) TEST NOT PERFORMED MG/DL CALC LDL CHOL (test code = 2237) TEST NOT PERFORMED MG/DL RISK RATIO LDL/HDL (test code = 2238) TEST NOT PERFORMED RATIO Jonatan F AustinCOMPREHENSIVE METABOLIC [id number] 00:00:00* Test Item Value Reference Range Interpretation Comme nts GLUCOSE (test code = 2217) TEST NOT PERFORMED MG/DL BUN (test code = 2208) TEST NOT PERFORME D MG/DL CREATININE (test code = 2214) TEST NOT PERFORMED MG/DL eGFR (2020 CKD-EPI) (test code = 97967) TEST NOT PERFORMED ML/MIN/1.73 CALC BUN/CREAT (test code = 2235) TEST NOT PERFORMED RATIO SODIUM (test code = 2231) TEST NOT PERFORMED MEQ/L POTASSIUM (test code = 2228) TEST NOT PERFORMED MEQ/L CHLORIDE (test code = 2215) TEST NOT PERFORMED MEQ/L CARBON DIOXIDE (test code = 2206) TEST NOT PERFORMED MEQ/L CALCIUM (test code = 2209) TEST NOT PERFORMED MG/DL PROTEIN, TOTAL (test code = 2229) TEST NOT PERFORMED G/DL ALBUMIN (test code = 2201) TEST NOT PERFORMED G/DL CALC GLOBULIN (test code = 2240) TEST NOT PERFORMED G/DL CALC A/G RATIO (test code = 2234) TEST NOT PERFORMED RATIO BILIRUBIN, TOTAL (test code = 2207) TEST NOT PERFORMED MG/DL ALKALINE PHOSPHATASE (test code = 2204) TEST NOT PERFORMED U/L AST (test code = 2218) TEST NOT PERFORME D U/L ALT (test code = 2219) TEST NOT PERFORME D U/L Jonatan F AustinLIPID [id number] 00:00:00* Test Item Value Reference Range Interpretation Comme nts CHOLESTEROL (test code = 2210) TEST NOT PERFORMED MG/DL TRIGLYCERIDES (test code = 2232) TEST NOT PERFORMED MG/DL HDL CHOLESTEROL (test code = 2220) TEST NOT PERFORMED MG/DL CALC LDL CHOL (test code = 2237) TEST NOT PERFORMED MG/DL RISK RATIO LDL/HDL (test code = 2238) TEST NOT PERFORMED RATIO Jonatan EasonCOMPREHENSIVE METABOLIC [id number] 00:00:00* Test Item Value Reference Range Interpretation Comme nts GLUCOSE (test code = 2217) TEST NOT PERFORMED MG/DL BUN (test code = 2208) TEST NOT PERFORME D MG/DL CREATININE (test code = 2214) TEST NOT PERFORMED MG/DL eGFR (2020 CKD-EPI) (test code = 51322) TEST NOT PERFORMED ML/MIN/1.73 CALC BUN/CREAT (test code = 2235) TEST NOT PERFORMED RATIO SODIUM (test code = 2231) TEST NOT PERFORMED MEQ/L POTASSIUM (test code = 2228) TEST NOT PERFORMED MEQ/L CHLORIDE (test code = 2215) TEST NOT PERFORMED MEQ/L CARBON DIOXIDE (test code = 2206) TEST NOT PERFORMED MEQ/L CALCIUM (test code = 2209) TEST NOT PERFORMED MG/DL PROTEIN, TOTAL (test code = 2229) TEST NOT PERFORMED G/DL ALBUMIN (test code = 2201) TEST NOT PERFORMED G/DL CALC GLOBULIN (test code = 2240) TEST NOT PERFORMED G/DL CALC A/G RATIO (test code = 2234) TEST NOT PERFORMED RATIO BILIRUBIN, TOTAL (test code = 2207) TEST NOT PERFORMED MG/DL ALKALINE PHOSPHATASE (test code = 2204) TEST NOT PERFORMED U/L AST (test code = 2218) TEST NOT PERFORME D U/L ALT (test code = 2219) TEST NOT PERFORME D U/L Jonatan Elisabeth AustinLIPID [id number] 00:00:00* Test Item Value Reference Range Interpretation Comme nts CHOLESTEROL (test code = 2210) TEST NOT PERFORMED MG/DL TRIGLYCERIDES (test code = 2232) TEST NOT PERFORMED MG/DL HDL CHOLESTEROL (test code = 2220) TEST NOT PERFORMED MG/DL CALC LDL CHOL (test code = 2237) TEST NOT PERFORMED MG/DL RISK RATIO LDL/HDL (test code = 2238) TEST NOT PERFORMED RATIO Jonatan EasonHEMOGLOBIN [id number] 00:00:00* Test Item Value Reference Range Interpretation Comme nts HEMOGLOBIN A1c (test code = 80392) 4.5 % Jonatan Barber AustinHEMOGLOBIN [id number] 00:00:00* Test Item Value Reference Range Interpretation Comme nts HEMOGLOBIN A1c (test code = 97405) 4.5 % Jonatan Elisabeth AustinHEMOGLOBIN [id number] 00:00:00* Test Item Value Reference Range Interpretation Comme nts HEMOGLOBIN A1c (test code = 59384) 4.5 % Jonatan Barber AustinHEMOGLOBIN [id number] 00:00:00* Test Item Value Reference Range Interpretation Comme nts HEMOGLOBIN A1c (test code = 09879) 4.5 % Jonatan Barber AustinHEMOGLOBIN [id number] 00:00:00* Test Item Value Reference Range Interpretation Comme nts HEMOGLOBIN A1c (test code = 11213) 4.5 % Jonatan Barber AustinHEMOGLOBIN [id number] 00:00:00* Test Item Value Reference Range Interpretation Comme nts HEMOGLOBIN A1c (test code = 77862) 4.5 % Jonatan Barber AustinHEMOGLOBIN [id number] 00:00:00* Test Item Value Reference Range Interpretation Comme nts HEMOGLOBIN A1c (test code = 81326) 4.5 % Jonatan Barber AustinHEMOGLOBIN [id number] 00:00:00* Test Item Value Reference Range Interpretation Comme nts HEMOGLOBIN A1c (test code = 04926) 4.5 % Jonatan Barber AustinPrepare Packed RBC (in units), 2 [id number] 22:57:57* Test Item Value Reference Range Interpretation Comme nts Cross Match Result (test code = 4409) Compatible ISBT Blood Type Code (test code = 909296) 5100 Unit Blood Type (test code = 4410) O Pos Unit Number (test code = 4411) [id number] Blood Expiration Date & Time (test code = 747731) [id number] Status Information (test code = 4412) Work In Progress Product Identification (test code = 4413) Red Blood Cells Product Code (test code = 4414) [id number] Performed at [facility] Laboratory Services - [facility] Blood [address] [address] Free: [phone] No. [id number] [facility] Packed RBC (in units), 1 Units 2024-02-05 13:45:51* Test Item Value Reference Range Interpretation Comme nts Cross Match Result (test code = 4409) Compatible ISBT Blood Type Code (test code = 491282) 9500 Unit Blood Type (test code = 4410) O Neg Unit Number (test code = 4411) [id number] Blood Expiration Date & Time (test code = 341846) [id number] Status Information (test code = 4412) Issued Product Identification (test code = 4413) Red Blood Cells Product Code (test code = 4414) [id number] Performed at [facility] Blood [address] Free: [phone] No. [id number] [facility] Packed RBC (in units), 1 Units 2024-02-05 13:45:51* Test Item Value Reference Range Interpretation Comme nts Cross Match Result (test code = 4409) Compatible ISBT Blood Type Code (test code = 816589) 9500 Unit Blood Type (test code = 4410) O Neg Unit Number (test code = 4411) [id number] Blood Expiration Date & Time (test code = 651808) [id number] Status Information (test code = 4412) Issued Product Identification (test code = 4413) Red Blood Cells Product Code (test code = 4414) [id number] Performed at [facility] Blood [address] Free: [phone] No. [id number] [facility] Packed RBC (in units), 2 Units 2024-02-05 11:46:16* Test Item Value Reference Range Interpretation Comme nts Cross Match Result (test code = 4409) Compatible ISBT Blood Type Code (test code = 166079) 5100 Unit Blood Type (test code = 4410) O Pos Unit Number (test code = 4411) [id number] Blood Expiration Date & Time (test code = 145059) [id number] Status Information (test code = 4412) Ready Product Identification (test code = 4413) Red Blood Cells Product Code (test code = 4414) [id number] Performed at [facility] Blood [address] Free: [phone] No. [id number] [facility] Packed RBC (in units), 1 Units 2024-02-04 01:26:40* Test Item Value Reference Range Interpretation Comme nts Cross Match Result (test code = 4409) Compatible ISBT Blood Type Code (test code = 551972) 9500 Unit Blood Type (test code = 4410) O Neg Unit Number (test code = 4411) [id number] Blood Expiration Date & Time (test code = 831212) [id number] Status Information (test code = 4412) Issued Product Identification (test code = 4413) Red Blood Cells Product Code (test code = 4414) [id number] Performed at [address] Free: [phone] No. [id number] [facility] Packed RBC (in units), 1 Units 2024-02-04 01:26:40* Test Item Value Reference Range Interpretation Comme nts Cross Match Result (test code = 4409) Compatible ISBT Blood Type Code (test code = 774298) 9500 Unit Blood Type (test code = 4410) O Neg Unit Number (test code = 4411) [id number] Blood Expiration Date & Time (test code = 051878) [id number] Status Information (test code = 4412) Issued Product Identification (test code = 4413) Red Blood Cells Product Code (test code = 4414) [id number] Performed at [address] Free: [phone] No. [id number] [facility] without [id number] 22:42:59* Test Item Value Reference Range Interpretation [...] 93 166-358 L MPV (test code = 30774-3) 10.0 fL 9.5-12.9 RDW-CV (test code = 788-0) 20.1 % 12.0-15.5 H RDW-SD (test code = 61240-7) 60.4 fL 39.0-49.9 H NRBC x10^3 (test code = 1020517305) See_Comment [Automated messa ge] The system which generated this result transmitted reference range: 10*3/?L. The reference range was not used to interpret this result as normal/abnormal. NRBC/100 WBC (test code = 0972853514) 0.0 0.0-10.0 IPF % (test code = 8753396098) 3.9 % 1.3-7.7 Platelet count measured by fluorescence method. Lab Interpretation (test code = 58278-3) Abnormal [facility] without [id number] 22:42:59* Test Item Value Reference Range Interpretation [...] 93 166-358 L MPV (test code = 55740-2) 10.0 fL 9.5-12.9 RDW-CV (test code = 788-0) 20.1 % 12.0-15.5 H RDW-SD (test code = 17771-5) 60.4 fL 39.0-49.9 H NRBC x10^3 (test code = 1244293619) See_Comment [Automated messa ge] The system which generated this result transmitted reference range: 10*3/?L. The reference range was not used to interpret this result as normal/abnormal. NRBC/100 WBC (test code = 1722532032) 0.0 0.0-10.0 IPF % (test code = 2149096234) 3.9 % 1.3-7.7 Platelet count measured by fluorescence method. Lab Interpretation (test code = 31435-7) Abnormal [facility] Packed RBC (in units), 1 Units 2024-02-03 17:56:43* Test Item Value Reference Range Interpretation Comme nts Cross Match Result (test code = 4409) Compatible ISBT Blood Type Code (test code = 276836) 5100 Unit Blood Type (test code = 4410) O Pos Unit Number (test code = 4411) [id number] Blood Expiration Date & Time (test code = 874512) 210957378443 Status Information (test code = 4412) Issued Product Identification (test code = 4413) Red Blood Cells Product Code (test code = 4414) [id number] Performed at [facility] B Laboratory Services - [facility] Blood [address] [place] [address]Ceok Free: [phone] No. [id number] [facility] Packed RBC (in units), 1 Units 2024-02-03 17:56:43* Test Item Value Reference Range Interpretation Comme nts Cross Match Result (test code = 4409) Compatible ISBT Blood Type Code (test code = 132255) 5100 Unit Blood Type (test code = 4410) O Pos Unit Number (test code = 4411) [id number] Blood Expiration Date & Time (test code = 522016) 977789088265 Status Information (test code = 4412) Issued Product Identification (test code = 4413) Red Blood Cells Product Code (test code = 4414) [id number] Performed at [facility] Laboratory Services [facility] Blood [address] [address]Mxkp Free: [phone] No. [id number] [facility] without Uqiu7558-53-27 16:59:29* Test Item Value Reference Range Interpretation [...] 100 166-358 L MPV (test code = 62355-5) 11.2 fL 9.5-12.9 RDW-CV (test code = 788-0) 17.3 % 12.0-15.5 H RDW-SD (test code = 52209-1) 54.7 fL 39.0-49.9 H NRBC x10^3 (test code = 0985447946) See_Comment [Automated messa ge] The system which generated this result transmitted reference range: 10*3/?L. The reference range was not used to interpret this result as normal/abnormal. NRBC/100 WBC (test code = 0381464972) 0.0 0.0-10.0 IPF % (test code = 0341177519) Lab Interpretation (test code = 69497-7) Abnormal [facility] without Hvbl1814-71-67 16:59:29* Test Item Value Reference Range Interpretation [...] 100 166-358 L MPV (test code = 58519-0) 11.2 fL 9.5-12.9 RDW-CV (test code = 788-0) 17.3 % 12.0-15.5 H RDW-SD (test code = 30387-5) 54.7 fL 39.0-49.9 H NRBC x10^3 (test code = 6916038809) See_Comment [Automated [employer]] The system which generated this result transmitted reference range: 10*3/?L. The reference range was not used to interpret this result as normal/abnormal. NRBC/100 WBC (test code = 9341074849) 0.0 0.0-10.0 IPF % (test code = 0854105952) Lab Interpretation (test code = 34043-5) Abnormal [facility] ABDOMEN LIMITED WITH [id number] 14:22:13EXAM: US ABDOMEN LIMITED WITH DOPPLER HISTORY: 63 years-old Female with tips patency, portal vein thrombus . TECHNIQUE: Limited abdominal ultrasound was performed focused on the liver,biliary system,pancreas and spleen. Main portal vein was evaluated withcolor and spectral Doppler imaging. Tape Calender images were obtained forthe record. COMPARISON: None [...] 0.45 cm. Spleen measures 11.5 cm in length.[facility] WITH [id number] 14:22:13EXAM: US ABDOMEN LIMITED WITH DOPPLER HISTORY: 63 years-old Female with tips patency, portal vein th [facility] . TECHNIQUE: Limited abdominal ultrasound was performed focused on the liver,biliary system,pancreas and spleen. Main portal vein was evaluated withcolor and spectral Doppler imaging. Tape Calender images were obtained forthe record. COMPARISON: None [...] 0.45 cm. Spleen measures 11.5 cm in length.[facility]EN/PELVIS 2024-02-03 14:06:06EXAM: CT ANGIOGRAM ABDOMEN/PELVIS [...] changes of the lumbar spine is seen. [facility]BD[facility]EN/[id number] 14:06:06 EXAM: CT ANGIOGRAM ABDOMEN/PELVIS HISTORY: 63 [...] changes of the lumbar spine is seen. [facility] Packed RBC (in units), 1 Units 2024-02-03 09:04:35* Test Item Value Reference Range Interpretation Comme nts Unit Blood Type (test code = 4410) O Pos ISBT Blood Type Code (test code = 898165) 5100 Unit Number (test code = 4411) [id number] Blood Expiration Date & Time (test code = 699467) 111969509536 Status Information (test code = 4412) Issued Product Identification (test code = 4413) Red Blood Cells Product Code (test code = 4414) [id number] Performed at [facility] B Laboratory Services - [facility] Blood [address] [place] [address]Andx Free: [phone] No. [id number] Cross Match Result (test code = 4409) Compatible [facility] Packed RBC (in units), 1 Units 2024-02-03 09:04:35* Test Item Value Reference Range Interpretation Comme nts Unit Blood Type (test code = 4410) O Pos ISBT Blood Type Code (test code = 335772) 5100 Unit Number (test code = 4411) [id number] Blood Expiration Date & Time (test code = 077280) 315828812259 Status Information (test code = 4412) Issued Product Identification (test code = 4413) Red Blood Cells Product Code (test code = 4414) [id number] Performed at [facility] Laboratory Services [facility] Blood [address] [address]Bedq Free: [phone] No. [id number] Cross Match Result (test code = 4409) Compatible [facility] and Screen - ONCE Ojqotbs8051-34-01 06:00:00* Test Item Value Reference Range Interpretation Comme nts ABO & RH (test code = 20) O POSITIVE IAT (test code = 1185) Negative [facility] - ONCE Nghfzas4604-60-77 06:00:00* Test Item Value Reference Range Interpretation Comme nts ABO & RH (test code = 20) O POSITIVE IAT (test code = 1185) Negative [facility]. Metabolic Panel (12972)2024-01-04 12:46:33* Test Item Value Reference Range Interpretation Comme nts NA (test code = 0195946945) 136 mmol/L 135-145 K (test code = 1643750608) 3.7 mmol/L 3.5-5.0 CL (test code = 7128059423) 109 mmol/L 98-108 H CO2 TOTAL (test code = 6814849162) 22 mmol/L 23-31 L AGAP (test code = 9835810815) 5 2-16 BUN (test code = 2379733324) 9 mg/dL 7-23 GLUCOSE (test code = 5470987593) 95 mg/dL 70-110 CREATININE (test code = 2160-0) 0.63 mg/dL 0.50-1.04 TOTAL BILI (test code = 3464951835) 1.7 mg/dL 0.1-1.1 H CALCIUM (test code = 2772588862) 7.5 mg/dL 8.6-10.6 L T PROTEIN (test code = 3836175735) 4.9 g/dL 6.3-8.2 L ALBUMIN (test code = 0107021395) 2.4 g/dL 3.5-5.0 L ALK PHOS (test code = 3679179948) 136 U/L 34-122 H ALTv (test code = 1742-6) 21 U/L 5-35 AST(SGOT) (test code = 1472336135) 68 U/L 13-40 H eGFR (test code = 37896-5) 98.6 mL/min/1.73m2 CKD-EPI eGFR (2020). Assuming creatinine has been stable day-to-day for at least three months, the eGFR indicates Category G1 (>= 90 mL/min/1.73 m2) Lab Interpretation (test code = 09238-6) Abnormal [facility] Crhr1776-38-49 17:17:00Pradeep Estes MD ? ? 01/03/2024 12:21 PM Arterial Line Date/Time: 01/03/2024 12:17 PM Performed by: Pradeep Estes MDArterial Line Placement: ?Ultrasound-Guided: ultrasound guided ? ?Patient Location: ?OR?Indication: continuous blood pressure monitoring and blood sampling needed ?Staff: ?Supervising Anesthesiologist: ?Elmer Egan MD ?Resident: ?Pradeep Estes [facility]cedure Detail: ?Catheter Size: ?20 gauge ?Catheter Length: ?1 and 3/4 inch ?Catheter Type: ?Arrow ?Seldinger Technique?: Yes ? ?Laterality: ?Left ?Site: ?Radial artery ?Line Secured: ?Tape and Tegaderm ?Preparation: ?Guidewire removed intactEvents: ?Events: ?Patient tolerated procedure well with no complications and all wires accounted forComments: ? Tegaderm CHG applied. [facility]ubation2024-08-22 17:09:00Pradeep Estes MD ? ? 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 ?Lips,gums, teeth, and nose unchanged vs. preop.[facility] [id number] 15:17:35EXAMINATION: 1. ?TRANSJUGULAR INTRAHEPATIC PORTOSYSTEMIC SHUNT PLACEMENT [...] was obtained. Prior to beginning the procedure, [place] Protocolwas performed to confirm the patient's identity and the planned procedure.Maximum sterile barriers including cap, mask, hand hygiene, sterile gloves,sterile gown, large sterile drape and cutaneous antisepsis were used. The skin over right upper quadrant was infiltrated with 1% lidocaine and b44-tfsly Chiba needle was advanced into the right [...] extension intothe intrahepatic branches. A 16-[place] penumbra suction thrombectomy devicewas used for mechanical [...] of 0.035 Glidewire and 5- [place] Santiago catheter andwere embolized using a combination [...] thrombectomy of portal venous thromboses was performed dpanp35-Xvlpil penumbra suction thrombectomy device followed by b [...] area of narrowing involving the main portal vein.[facility] MarshallMagnesium2024-08-21 11:45:26* Test Item Value Reference Range Interpretation Comme nts MAGNESIUM (test code = 2523191099) 1.9 mg/dL 1.7-2.4 Lab Interpretation (test cod e = 54442-5) Normal [facility] Marshall[facility] Metabolic Panel (NA, K, CL, CO2, GLUCOSE, BUN, CREATININE, CA)2024-01-02 11:45:26* Test Item Value Reference Range Interpretation Comme nts NA (test code = 3099458867) 135 mmol/L 135-145 K (test code = 9653677710) 3.6 mmol/L 3.5-5.0 CL (test code = 9638945203) 107 mmol/L 98-108 CO2 TOTAL (test code = 9519597877) 24 mmol/L 23-31 AGAP (test code = 9747682509) 4 2-16 BUN (test code = 6273359989) 16 mg/dL 7-23 GLUCOSE (test code = 3367303042) 118 mg/dL 70-110 H CREATININE (test code = 2160-0) 0.68 mg/dL 0.50-1.04 CALCIUM (test code = 3480324720) 7.6 mg/dL 8.6-10.6 L eGFR (test code = 91046-7) 96.8 mL/min/1.73m2 CKD-EPI eGFR (2020). Assuming creatinine has been stable day-to-day for at least three months, the eGFR indicates Category G1 (>= 90 mL/min/1.73 m2) Lab Interpretation (test code = 92840-5) Abnormal [facility] with Gekn0324-96-94 11:33:50* Test Item Value Reference Range Interpretation [...] 31.8 g/dL 31.6-35.1 RDW-SD (test code = 92609-4) 57.4 fL 39.0-49.9 H RDW-CV (test code = 788-0) 18.6 % 12.0-15.5 H PLT (test code = 777-3) 87 166-358 L MPV (test code = 16934-9) 11.3 fL 9.5-12.9 IPF % (test code = 1110165318) 6.4 % 1.3-7.7 Platelet count measured by fluorescence method. NRBC/100 WBC (test code = 5895523145) 0.0 0.0-10.0 NRBC x10^3 (test code = 4423218991) See_Comment [Automated Rock[employer] ge] The system which generated this result transmitted reference range: 10*3/?L. The reference range was not used to interpret this result as normal/abnormal. GRAN MAT (NEUT) % (test code = 770-8) 65.2 % IMM GRAN % (test code = 1465078977) 0.40 % LYMPH % (test code = 736-9) 17.1 % MONO % (test code = 5905-5) 10.8 % EOS % (test code = 713-8) 5.7 % BASO % (test code = 706-2) 0.8 % GRAN MAT x10^3(ANC) (test code = 2735995572) 4.66 10*3/uL 1.88-7.09 IMM GRAN x10^3 (test code = 2897319971) 0.03 10*3/uL 0.00-0.06 LYMPH x10^3 (test code = 731-0) 1.22 10*3/uL 1.32-3.29 L MONO x10^3 (test code = 742-7) 0.77 10*3/uL 0.33-0.92 EOS x10^3 (test code = 711-2) 0.41 10*3/uL 0.03-0.39 H BASO x10^3 (test code = 704-7) 0.06 10*3/uL 0.01-0.07 GIANT PLATELETS (test code = 5908-9) Present See_Comment A [Automated [employer]] The system which generated this result transmitted reference range: (none). The reference range was not used to interpret this result as normal/abnormal. Lab Interpretation (test code = 07461-2) Abnormal [facility] ABDOMEN/[id number] 23:11:44 EXAM: CT ABDOMEN AND PELVIS WITH [...] TISSUES: No suspicious lytic or sclerotic bony lesions.[facility] Marshall[facility] 2024-01-01 11:43:45* Test Item Value Reference Range Interpretation Comme nts MAGNESIUM (test code = 7855858720) 1.8 mg/dL 1.7-2.4 Lab Interpretation (test cod e = 20137-3) Normal [facility] MarshallHepatic Function Panel (18210) (ALB,T.PRO,BILI T,BU/BC,ALT,AST,ALK PHOS)2024-01-01 11:43:44* Test Item Value Reference Range Interpretation Comme nts TOTAL BILI (test code = 8555725057) 1.5 mg/dL 0.1-1.1 H BILI UNCON (test code = 1509555914) 1.1 mg/dL 0.1-1.1 BILI CONJ (test code = 2560222506) 0.0 mg/dL 0.0-0.3 T PROTEIN (test code = 3038003174) 5.2 g/dL 6.3-8.2 L ALBUMIN (test code = 1052405359) 2.7 g/dL 3.5-5.0 L ALK PHOS (test code = 1056678587) 102 U/L 34-122 ALTv (test code = 1742-6) 19 U/L 5-35 AST(SGOT) (test code = 5855747332) 38 U/L 13-40 Lab Interpretation (test cod e = 87032-1) Abnormal [facility] Metabolic [facility] (NA, K, CL, CO2, GLUCOSE, BUN, CREATININE, CA)2024-01-01 11:43:44* Test Item Value Reference Range Interpretation Comme nts NA (test code = 5144547736) 136 mmol/L 135-145 K (test code = 8922363781) 3.7 mmol/L 3.5-5.0 CL (test code = 4162815134) 110 mmol/L 98-108 H CO2 TOTAL (test code = 1121426374) 20 mmol/L 23-31 L AGAP (test code = 8117942022) 6 2-16 BUN (test code = 2469806501) 12 mg/dL 7-23 GLUCOSE (test code = 9078769332) 112 mg/dL 70-110 H CREATININE (test code = 2160-0) 0.55 mg/dL 0.50-1.04 CALCIUM (test code = 1800405985) 8.1 mg/dL 8.6-10.6 L eGFR (test code = 72006-5) 101.9 mL/min/1.73m2 CKD-EPI eGFR (2020). Assuming creatinine has been stable day-to-day for at least three months, the eGFR indicates Category G1 (>= 90 mL/min/1.73 m2) Lab Interpretation (test code = 81566-6) Abnormal [facility] with Oysn3865-13-63 11:40:12* Test Item Value Reference Range Interpretation [...] 31.9 g/dL 31.6-35.1 RDW-SD (test code = 56732-6) 58.3 fL 39.0-49.9 H RDW-CV (test code = 788-0) 18.5 % 12.0-15.5 H PLT (test code = 777-3) 70 166-358 L MPV (test code = 50515-7) 11.6 fL 9.5-12.9 IPF % (test code = 8038155398) 5.6 % 1.3-7.7 Platelet count measured by fluorescence method. NRBC/100 WBC (test code = 8788488533) 0.0 0.0-10.0 NRBC x10^3 (test code = 4746456503) See_Comment [Automated [employer] ge] The system which generated this result transmitted reference range: 10*3/?L. The reference range was not used to interpret this result as normal/abnormal. GRAN MAT (NEUT) % (test code = 770-8) 81.5 % IMM GRAN % (test code = 0385479424) 0.50 % LYMPH % (test code = 736-9) 11.0 % MONO % (test code = 5905-5) 5.6 % EOS % (test code = 713-8) 0.2 % BASO % (test code = 706-2) 1.2 % GRAN MAT x10^3(ANC) (test code = 2904009816) 3.33 10*3/uL 1.88-7.09 IMM GRAN x10^3 (test code = 5071423981) 0.00-0.06 LYMPH x10^3 (test code = 731-0) 0.45 10*3/uL 1.32-3.29 L MONO x10^3 (test code = 742-7) 0.23 10*3/uL 0.33-0.92 L EOS x10^3 (test code = 711-2) 0.03-0.39 L BASO x10^3 (test code = 704-7) 0.05 10*3/uL 0.01-0.07 BANDS (test code = 8202407882) Increased A Lab Interpretation (test code = 82749-0) Abnormal [facility] MarshallProthrombin Time / [id number] 11:15:15* Test Item Value Reference Range Interpretation Comme nts PROTIME PATIENT (test code = 5964-2) 13.7 10.1-12.6 H INR (test code = 6301-6) 1.2 Normal INR <1.1; Warfarin Therapeutic range 2.0 to 3.0 or 2.5 to 3.5, depending upon the indications. Lab Interpretation (test code = 40125-0) Abnormal [facility] with Gpws2764-65-35 05:07:41* Test Item Value Reference Range Interpretation [...] g/dL 31.6-35.1 L RDW-SD (test code = 54621-8) 60.5 fL 39.0-49.9 H RDW-CV (test code = 788-0) 18.7 % 12.0-15.5 H PLT (test code = 777-3) 66 166-358 L MPV (test code = 82862-3) 11.6 fL 9.5-12.9 IPF % (test code = 0138678820) 6.3 % 1.3-7.7 Platelet count measured by fluorescence method. NRBC/100 WBC (test code = 8491492994) 0.0 0.0-10.0 NRBC x10^3 (test code = 0091637448) See_Comment [Automated messa ge] The system which generated this result transmitted reference range: 10*3/?L. The reference range was not used to interpret this result as normal/abnormal. GRAN MAT (NEUT) % (test code = 770-8) 87.7 % IMM GRAN % (test code = 0045628005) 0.20 % LYMPH % (test code = 736-9) 8.4 % MONO % (test code = 5905-5) 2.3 % EOS % (test code = 713-8) 0.2 % BASO % (test code = 706-2) 1.2 % GRAN MAT x10^3(ANC) (test code = 5155275619) 3.76 10*3/uL 1.88-7.09 IMM GRAN x10^3 (test code = 3760970597) 0.00-0.06 LYMPH x10^3 (test code = 731-0) 0.36 10*3/uL 1.32-3.29 L MONO x10^3 (test code = 742-7) 0.10 10*3/uL 0.33-0.92 L EOS x10^3 (test code = 711-2) 0.03-0.39 L BASO x10^3 (test code = 704-7) 0.05 10*3/uL 0.01-0.07 Lab Interpretation (test code = 97163-6) Abnormal [facility] with Hiad0513-98-45 19:00:29* Test Item Value Reference Range Interpretation [...] g/dL 31.6-35.1 L RDW-SD (test code = 02828-0) 59.7 fL 39.0-49.9 H RDW-CV (test code = 788-0) 18.5 % 12.0-15.5 H PLT (test code = 777-3) 62 166-358 L MPV (test code = 29214-6) 11.4 fL 9.5-12.9 IPF % (test code = 0045272765) 7.1 % 1.3-7.7 Platelet count measured by fluorescence method. NRBC/100 WBC (test code = 0917551079) 0.0 0.0-10.0 NRBC x10^3 (test code = 6767366438) See_Comment [Automated messa ge] The system which generated this result transmitted reference range: 10*3/?L. The reference range was not used to interpret this result as normal/abnormal. GRAN MAT (NEUT) % (test code = 770-8) 52.1 % IMM GRAN % (test code = 7518670635) 0.30 % LYMPH % (test code = 736-9) 27.5 % MONO % (test code = 5905-5) 12.3 % EOS % (test code = 713-8) 7.0 % BASO % (test code = 706-2) 0.8 % GRAN MAT x10^3(ANC) (test code = 5236368521) 1.95 10*3/uL 1.88-7.09 IMM GRAN x10^3 (test code = 7660524783) 0.00-0.06 LYMPH x10^3 (test code = 731-0) 1.03 10*3/uL 1.32-3.29 L MONO x10^3 (test code = 742-7) 0.46 10*3/uL 0.33-0.92 EOS x10^3 (test code = 711-2) 0.26 10*3/uL 0.03-0.39 BASO x10^3 (test code = 704-7) 0.03 10*3/uL 0.01-0.07 BANDS (test code = 9231070078) Increased A GIANT PLATELETS (test code = 5908-9) Present See_Comment A [Automated messa ge] The system which generated this result transmitted reference range: (none). The reference range was not used to interpret this result as normal/abnormal. Lab Interpretation (test code = 69377-0) [facility] Jjcd8548-55-58 18:20:00Rachel Lange CRNA ? ? 12/31/2023 ?2:20 PM Arterial Line Date/Time: 12/31/2023 1:20 PM Performedby: Rachel Lange CRNAArterial Line Placement: ?Ultrasound-Guided: surface landmarks ? ?Patient Location: ?OR ?Indication: continuous blood pressure monitoring and blood sampling needed ?Staff: ?ASPHALT PAVING FOREMAN: ?Rachel Lange CRNAProcedure Detail: ?Catheter Size: ?20 gauge ?Catheter Length: ?1 and 1/4 inch ?Catheter Type: ?Arrow ?Laterality: ?Left ?Site: ?Radial artery ?Line Secured: ?Tape and biopatch ?Preparation: ?Chloroprep and sterile glovesEvents: ?Events: ?Patient tolerated procedure well with no complications [facility]2024-[facility] 18:09:00Rachel Lange CRNA ? ? 12/31/2023 ?2:14 PMIntubationDate/Time: 12/31/2023 1:09 PMUrgency: elective Airway not difficult General Information and Staff Patient location during procedure: ORPerformed: resident/ASPHALT PAVING FOREMAN Performed by: Rachel Lange CRNAAuthorized by: Theodora [...] teeth (cm): 22Number of attempts at approach: 1UnAdventHealthCbc without Ypqi7488-03-04 11:52:03* Test Item Value Reference Range Interpretation [...] 67 166-358 L MPV (test code = 84325-9) 11.1 fL 9.5-12.9 RDW-CV (test code = 788-0) 18.7 % 12.0-15.5 H RDW-SD (test code = 56140-3) 59.8 fL 39.0-49.9 H NRBC x10^3 (test code = 4593748727) See_Comment [Automated [employer] ge] The system which generated this result transmitted reference range: 10*3/?L. The reference range was not used to interpret this result as normal/abnormal. NRBC/100 WBC (test code = 5132455480) 0.0 0.0-10.0 IPF % (test code = 6995543735) 6.2 % 1.3-7.7 Platelet count measured by fluorescence method. Lab Interpretation (test code = 41862-1) Abnormal [facility] PROCEDURE BTZMUXMNSMZEK3996-15-06 18:17:46Ordered by an unspecified provider.[facility] Marshall[facility]b with Bbpl9485-90-05 11:50:52* Test Item Value Reference Range Interpretation [...] g/dL 31.6-35.1 L RDW-SD (test code = 86487-8) 58.3 fL 39.0-49.9 H RDW-CV (test code = 788-0) 18.8 % 12.0-15.5 H PLT (test code = 777-3) 65 166-358 L MPV (test code = 84492-7) 10.5 fL 9.5-12.9 IPF % (test code = 9103078439) 6.5 % 1.3-7.7 Platelet count measured by fluorescence method. NRBC/100 WBC (test code = 4959920309) 0.0 0.0-10.0 NRBC x10^3 (test code = 7354222052) See_Comment [Automated messa ge] The system which generated this result transmitted reference range: 10*3/?L. The reference range was not used to interpret this result as normal/abnormal. GRAN MAT (NEUT) % (test code = 770-8) 45.9 % IMM GRAN % (test code = 5593069524) 0.30 % LYMPH % (test code = 736-9) 31.0 % MONO % (test code = 5905-5) 13.8 % EOS % (test code = 713-8) 8.2 % BASO % (test code = 706-2) 0.8 % GRAN MAT x10^3(ANC) (test code = 2406980927) 1.63 10*3/uL 1.88-7.09 L IMM GRAN x10^3 (test code = 0953325642) 0.00-0.06 LYMPH x10^3 (test code = 731-0) 1.10 10*3/uL 1.32-3.29 L MONO x10^3 (test code = 742-7) 0.49 10*3/uL 0.33-0.92 EOS x10^3 (test code = 711-2) 0.29 10*3/uL 0.03-0.39 BASO x10^3 (test code = 704-7) 0.03 10*3/uL 0.01-0.07 BANDS (test code = [id number]) Increased A Lab Interpretation (test code = 07238-0) Abnormal [facility] (for use with Heparin Drip)2023-12-28 11:35:04* Test Item Value Reference Range Interpretation Comme nts APTT Patient (test code = 3173-2) 138 26-36 HH Lab Interpretation (test cod e = 52789-8) Abnormal [facility] (for use with Heparin Drip)2023-12-28 02:57:52* Test Item Value Reference Range Interpretation Comme [facility] APTT Patient (test code = 3173-2) 122 26-36 HH Lab Interpretation (test cod e = 54015-8) Abnormal [facility] (for use with Heparin Drip)2023-12-28 02:57:52* Test Item Value Reference Range Interpretation Comme [facility] APTT Patient (test code = 3173-2) 122 26-36 HH Lab Interpretation (test cod e = 66132-9) Abnormal [facility] Packed RBC (in units), 1 Units 2023-12-26 19:09:54* Test Item Value Reference Range Interpretation Comme [facility] Unit Blood Type (test code = 4410) O Pos ISBT Blood Type Code (test code = 174251) 5100 Unit Number (test code = 4411) [id number] Blood Expiration Date & Time (test code = 442399) [id number] Status Information (test code = 4412) Issued Product Identification (test code = 4413) Red Blood Cells Product Code (test code = 4414) [id number] Performed at [facility] B Laboratory Services [facility] Blood [address] [place] [address]Nblm Free: [phone] No. [id number] Cross Match Result (test code = 4409) Compatible [facility] Packed RBC (in units), 1 Units 2023-12-26 19:09:54* Test Item Value Reference Range Interpretation Comme [facility] Unit Blood Type (test code = 4410) O Pos ISBT Blood Type Code (test code = 243642) 5100 Unit Number (test code = 4411) [id number] Blood Expiration Date & Time (test code = 060189) [id number] Status Information (test code = 4412) Issued Product Identification (test code = 4413) Red Blood Cells Product Code (test code = 4414) [id number] Performed at [facility] Laboratory Services [address] [address]Qbkx Free: [phone] No. [id number] Cross Match Result (test code = 4409) Compatible [facility] and Screen - Cjbqxux9422-39-73 18:09:57* Test Item Value Reference Range Interpretation Comme nts ABO & RH (test code = 20) O POSITIVE Performed at [facility] Laboratory Services - [address] [address]Omse Free: [phone] No. [id number] IAT (test code = 1185) Negative Performed at [facility] Laboratory [address] [address]Ysty Free: [phone] No. [id number] [facility] Screen - Ccfxinl4383-60-61 18:09:57* Test Item Value Reference Range Interpretation Comme nts ABO & RH (test code = 20) O POSITIVE Performed at [facility] Laboratory [facility] - [address] [address]Azbd Free: [phone] No. [id number] IAT (test code = 1185) Negative Performed at [facility] Laboratory [address] [address]Hkcp Free: [phone] No. [id number] [facility] WO HXMUNFMF2531-08-67 00:51:41CT ABDOMEN W WO CONTRAST Indication: multi phase liver protocol - concern for acute vs chronicportal vein thrombus and cirrhosis per GI multi phase liver protocol - concern for acute vs chronic portalvein thrombus and cirrhosis per GI Comparison: CT 12/23/2023. Ordering Clinician: DAYAN NEVAREZ [facility] Technique: Axial CT images of the abdomen [...] air orfree fluid. Skeleton: No acute osseous pathology.[facility] W WO VXPZIQJN8606-11-21 00:51:41CT ABDOMEN W WO CONTRAST Indication: multi phase liver protocol - concern for acute vs chronicportal vein thrombus and cirrhosis per GI multi phase liver protocol -concern for acute vs chronic portalvein thrombus and cirrhosis per GI Comparison: CT 12/23/2023. Ordering Clinician: DAYAN DENTON [facility] Technique: Axial CT images of the abdomen [...] air orfree fluid. Skeleton: No acute osseous pathology.[facility] WO FIWJMOGS9669-74-76 00:51:41CT ABDOMEN W WO CONTRAST Indication: multi phase liver protocol - concern for acute vs chronicportal vein thrombus and cirrhosis per GI multi phase liver protocol -concern for acute vs chronic portalvein thrombus and cirrhosis per GI Comparison: CT 12/23/2023. Ordering Clinician: DAYAN NEVAREZ [facility] Technique: Axial CT images of the abdomen [...] air orfree fluid. Skeleton: No acute osseous pathology.[facility] Packed RBC (in units) 2023-12-22 17:45:18* Test Item Value Reference Range Interpretation Comme nts Unit Blood Type (test code = 4410) O Pos ISBT Blood Type Code (test code = 755944) 5103 Unit Number (test code = 4411) [id number] Blood Expiration Date & Time (test code = 995364) 546684681043 Status Information (test code = 4412) Released Product Identification (test code = 4413) Red Blood Cells Product Code (test code = 4414) [id number] Performed at [facility] Blood [place] [address]Toll Free: [phone] No. [id number] Cross Match Result (test code = 4409) [facility] (in units)2023-12-22 17:45:18* Test Item Value Reference Range Interpretation Comme [facility] Unit Blood Type (test code = 4410) O Pos ISBT Blood Type Code (test code = 346226) 5100 Unit Number (test code = 4411) [id number] Blood Expiration Date & Time (test code = 862762) 786039474003 Status Information (test code = 4412) Released Product Identification (test code = 4413) Red Blood Cells Product Code (test code = 4414) [id number] Performed at [facility] Blood [place] [address]Toll Free: [phone] No. [id number] Cross Match Result (test code = 4409) Compatible [facility] Packed RBC (in units)2023-12-22 17:45:18* Test Item Value Reference Range Interpretation Comme [facility] Unit Blood Type (test code = 4410) O Pos ISBT Blood Type Code (test code = 640354) 5100 Unit Number (test code = 4411) [id number] Blood Expiration Date & Time (test code = 552015) 212600349396 Status Information (test code = 4412) Released Product Identification (test code = 4413) Red Blood Cells Product Code (test code = 4414) [id number] Performed at [facility] Blood [place] [address]Toll Free: [phone] No. [id number] Cross Match Result (test code = 4409) Compatible [facility] Screen - ONCE Pylsvbb5079-20-54 14:37:00* Test Item Value Reference Range Interpretation Comme nts ABO & RH (test code = 20) O POSITIVE IAT (test code = 1185) Negative [facility] - ONCE Dutzgou3193-38-57 14:37:00* Test Item Value Reference Range Interpretation Comme nts ABO & RH (test code = 20) O POSITIVE IAT (test code = 1185) Negative [facility] Screen - ONCE Tcuqwxd7995-79-25 14:37:00* Test Item Value Reference Range Interpretation Comme nts ABO & RH (test code = 20) O POSITIVE IAT (test code = 1185) Negative [facility] MarshallIntubation2024-08-10 14:10:00Puneet Gan MD ? ? 12/22/2023 10:18 AMIntubationDate/Time: 12/22/2023 9:10 AMUrgency: elective Airway not difficult General Information and Staff Patient location during procedure: ORPerformed: resident/ASPHALT PAVING FOREMAN Performed by: Puneet Gan MDAuthorized by: Kwame [...] CommentsSmooth, atraumatic, dentition and lips unchanged from pre-op.[facility] Packed RBC (in units)2023-12-21 01:55:17* Test Item Value Reference Range Interpretation Comme nts Unit Blood Type (test code = 4410) O Pos ISBT Blood Type Code (test code = 426026) 5100 Unit Number (test code = 4411) [id number] Blood Expiration Date & Time (test code = 945689) 646647063935 Status Information (test code = 4412) Issued Product Identification (test code = 4413) Red Blood Cells Product Code (test code = 4414) [id number] Performed at [facility] Blood [address] Free: [phone] No. [id number] Cross Match Result (test code = 4409) Compatible [facility] Packed RBC (in units)2023-12-21 01:55:17* Test Item Value Reference Range Interpretation Comme [facility] Unit Blood Type (test code = 4410) O Pos ISBT Blood Type Code (test code = 128022) 5100 Unit Number (test code = 4411) [id number] Blood Expiration Date & Time (test code = 684295) 742683595250 Status Information (test code = 4412) Issued Product Identification (test code = 4413) Red Blood Cells Product Code (test code = 4414) [id number] Performed [address] [facility] [address] Free: [phone] No. [id number] Cross Match Result (test code = 4409) Compatible [facility] Packed RBC (in units)2023-12-21 01:55:17* Test Item Value Reference Range Interpretation Comme [facility] Unit Blood Type (test code = 4410) O Pos ISBT Blood Type Code (test code = 073462) 5100 Unit Number (test code = 4411) [id number] Blood Expiration Date & Time (test code = 383470) 669343235110 Status Information (test code = 4412) Issued Product Identification (test code = 4413) Red Blood Cells Product Code (test code = 4414) [id number] Performed at [facility] [address] Free: [phone] No. [id number] Cross Match Result (test code = 4409) Compatible [facility] Marshall[facility] Stimulating Cxqinmr4003-14-65 19:19:36 * Test Item Value Reference Range Interpretation Comme nts TSH (test code = 1171363272) 9.51 0.45-4.70 H Lab Interpretation (test cod e = 08510-4) Abnormal [facility] Xydtpsz7688-93-67 19:19:36 * Test Item Value Reference Range Interpretation Comme nts TSH (test code = 9766988619) 9.51 0.45-4.70 H Lab Interpretation (test cod e = 75098-2) Abnormal [facility] Gurtzfv4167-61-40 19:19:36 * Test Item Value Reference Range Interpretation Comme nts TSH (test code = 4335799349) 9.51 0.45-4.70 H Lab Interpretation (test cod e = 40897-6) Abnormal [place] 14424024-08-08 19:05:36* Test Item Value Reference Range Interpretation Comme nts FREE T3 (test code = 7321105386) 2.58 pg/mL 2.77-5.27 L Lab Interpretation (test cod e = 68856-1) Abnormal [place] 14424024-08-08 19:05:36* Test Item Value Reference Range Interpretation Comme nts FREE T3 (test code = 1880520463) 2.58 pg/mL 2.77-5.27 L Lab Interpretation (test cod e = 86072-7) Abnormal [place] 14424024-08-08 19:05:36* Test Item Value Reference Range Interpretation Comme nts FREE T3 (test code = 9633396882) 2.58 pg/mL 2.77-5.27 L Lab Interpretation (test cod e = 29569-6) Abnormal [facility] MarshallMagnesium2024-08-08 18:47:53* Test Item Value Reference Range Interpretation Comme nts MAGNESIUM (test code = 3933387392) 1.9 mg/dL 1.7-2.4 Lab Interpretation (test cod e = 57461-7) [facility] 18:47:53* Test Item Value Reference Range Interpretation Comme nts MAGNESIUM (test code = 6110581598) 1.9 mg/dL 1.7-2.4 Lab Interpretation (test cod e = 08974-1) Normal [facility] Marshall[facility]esium2024-08-08 18:47:53* Test Item Value Reference Range Interpretation Comme nts MAGNESIUM (test code = 7368133753) 1.9 mg/dL 1.7-2.4 Lab Interpretation (test cod e = 33655-0) Normal [facility] and Screen - ONCE Qwbkbiy1355-92-83 16:42:00* Test Item Value Reference Range Interpretation Comme nts ABO & RH (test code = 20) O POSITIVE IAT (test code = 1185) Negative [facility] and Screen - ONCE Hgbpfme6563-72-61 16:42:00* Test Item Value Reference Range Interpretation Comme nts ABO & RH (test code = 20) O POSITIVE IAT (test code = 1185) Negative [facility] and Screen - ONCE Wgedpok8574-21-22 16:42:00* Test Item Value Reference Range Interpretation Comme nts ABO & RH (test code = 20) O POSITIVE IAT (test code = 1185) Negative [facility] PELVIS W DPIYXXVM1870-50-39 16:09:23CT Abdomen and Pelvis with intravenous contrast. [...] Bones: ?Exaggerated lumbar lordosis with mild levoscoliosis, otvzj7hshpsiqromequeyjk at L4-L5 and multilevel facet arthritis. ProminentSchmorl's [...] lesions. No gross pathology in theunopacified urinary bladder.[facility] ABD[facility] PELVIS W WVHBNLIT0425-19-37 16:09:23CT Abdomen and Pelvis with intravenous contrast. [...] Bones: ?Exaggerated lumbar lordosis with mild levoscoliosis, rdhjr3vsxuwcbeymyljfyru at L4-L5 and multilevel facet arthritis. ProminentSchmorl's [...] lesions. No gross pathology in theunopacified urinary bladder.[facility] PELVIS W SSVWDCEI1113-92-75 16:09:23CT Abdomen and Pelvis with intravenous contrast. [...] Bones: ?Exaggerated lumbar lordosis with mild levoscoliosis, suzop8kjdcsjgpillpjwsdr at L4-L5 and multilevel facet arthritis. ProminentSchmorl's [...] lesions. No gross pathology in theunopacified urinary bladder.[facility]. Metabolic Panel (78383)2023-12-20 15:00:14* Test Item Value Reference Range Interpretation Comme nts NA (test code = 9778002237) 138 mmol/L 135-145 K (test code = 3280161356) 3.1 mmol/L 3.5-5.0 L CL (test code = 5640782820) 106 mmol/L 98-108 CO2 TOTAL (test code = 5657181335) 24 mmol/L 23-31 AGAP (test code = 9618060676) 8 2-16 BUN (test code = 6743651556) 13 mg/dL 7-23 GLUCOSE (test code = 4124592542) 109 mg/dL 70-110 CREATININE (test code = 2160-0) 0.71 mg/dL 0.50-1.04 TOTAL BILI (test code = 9256941800) 1.5 mg/dL 0.1-1.1 H CALCIUM (test code = 0370787593) 8.4 mg/dL 8.6-10.6 L T PROTEIN (test code = 5678389873) 6.1 g/dL 6.3-8.2 L ALBUMIN (test code = 8039356504) 3.2 g/dL 3.5-5.0 L ALK PHOS (test code = 5076684072) 110 U/L 34-122 ALTv (test code = 1742-6) 20 U/L 5-35 AST(SGOT) (test code = 9987802063) 41 U/L 13-40 H eGFR (test code = 75563-0) 94.5 mL/min/1.73m2 CKD-EPI eGFR (2020). Assuming creatinine has been stable day-to-day for at least three months, the eGFR indicates Category G1 (>= 90 mL/min/1.73 m2) Lab Interpretation (test code = 38400-6) Abnormal [facility]. Metabolic Panel (47940)2023-12-20 15:00:14* Test Item Value Reference Range Interpretation Comme nts NA (test code = 8559038042) 138 mmol/L 135-145 K (test code = 8118950218) 3.1 mmol/L 3.5-5.0 L CL (test code = 1763631880) 106 mmol/L 98-108 CO2 TOTAL (test code = 9810317301) 24 mmol/L 23-31 AGAP (test code = 4479773372) 8 2-16 BUN (test code = 1011617799) 13 mg/dL 7-23 GLUCOSE (test code = 6690236586) 109 mg/dL 70-110 CREATININE (test code = 2160-0) 0.71 mg/dL 0.50-1.04 TOTAL BILI (test code = 0754819579) 1.5 mg/dL 0.1-1.1 H CALCIUM (test code = 7741539195) 8.4 mg/dL 8.6-10.6 L T PROTEIN (test code = 4130233517) 6.1 g/dL 6.3-8.2 L ALBUMIN (test code = 1160599346) 3.2 g/dL 3.5-5.0 L ALK PHOS (test code = 3106100857) 110 U/L 34-122 ALTv (test code = 1742-6) 20 U/L 5-35 AST(SGOT) (test code = 6724210294) 41 U/L 13-40 H eGFR (test code = 33779-1) 94.5 mL/min/1.73m2 CKD-EPI eGFR (2020). Assuming creatinine has been stable day-to-day for at least three months, the eGFR indicates Category G1 (>= 90 mL/min/1.73 m2) Lab Interpretation (test code = 27834-8) Abnormal [facility]. Metabolic Panel (12276)2023-12-20 15:00:14* Test Item Value Reference Range Interpretation Comme nts NA (test code = 9576877774) 138 mmol/L 135-145 K (test code = 6484933502) 3.1 mmol/L 3.5-5.0 L CL (test code = 5374242651) 106 mmol/L 98-108 CO2 TOTAL (test code = 9969868682) 24 mmol/L 23-31 AGAP (test code = 4266525759) 8 2-16 BUN (test code = 6375526582) 13 mg/dL 7-23 GLUCOSE (test code = 9122950179) 109 mg/dL 70-110 CREATININE (test code = 2160-0) 0.71 mg/dL 0.50-1.04 TOTAL BILI (test code = 8625643085) 1.5 mg/dL 0.1-1.1 H CALCIUM (test code = 8086437605) 8.4 mg/dL 8.6-10.6 L T PROTEIN (test code = 9304498311) 6.1 g/dL 6.3-8.2 L ALBUMIN (test code = 8475119797) 3.2 g/dL 3.5-5.0 L ALK PHOS (test code = 4400870709) 110 U/L 34-122 ALTv (test code = 1742-6) 20 U/L 5-35 AST(SGOT) (test code = 9824831952) 41 U/L 13-40 H eGFR (test code = 70914-1) 94.5 mL/min/1.73m2 CKD-EPI eGFR (2020). Assuming creatinine has been stable day-to-day for at least three months, the eGFR indicates Category G1 (>= 90 mL/min/1.73 m2) Lab Interpretation (test code = 40206-3) Abnormal [facility] with Mkqs7791-97-04 14:57:42* Test Item Value Reference Range Interpretation [...] g/dL 31.6-35.1 L RDW-SD (test code = 73903-2) 52.6 fL 39.0-49.9 H RDW-CV (test code = 788-0) 16.9 % 12.0-15.5 H PLT (test code = 777-3) 103 166-358 L MPV (test code = 56901-4) 11.7 fL 9.5-12.9 IPF % (test code = 8648697619) 6.3 % 1.3-7.7 Platelet count measured by fluorescence method. NRBC/100 WBC (test code = 0986316884) 0.0 0.0-10.0 NRBC x10^3 (test code = 9363718649) See_Comment [Automated RockYoua ge] The system which generated this result transmitted reference range: 10*3/?L. The reference range was not used to interpret this result as normal/abnormal. GRAN MAT (NEUT) % (test code = 770-8) 66.7 % IMM GRAN % (test code = 5095538261) 0.40 % LYMPH % (test code = 736-9) 20.3 % MONO % (test code = 5905-5) 7.8 % EOS % (test code = 713-8) 3.6 % BASO % (test code = 706-2) 1.2 % GRAN MAT x10^3(ANC) (test code = 3075634084) 3.36 10*3/uL 1.88-7.09 IMM GRAN x10^3 (test code = 0837721871) 0.00-0.06 LYMPH x10^3 (test code = 731-0) 1.02 10*3/uL 1.32-3.29 L MONO x10^3 (test code = 742-7) 0.39 10*3/uL 0.33-0.92 EOS x10^3 (test code = 711-2) 0.18 10*3/uL 0.03-0.39 BASO x10^3 (test code = 704-7) 0.06 10*3/uL 0.01-0.07 Lab Interpretation (test code = 11926-0) Abnormal [facility] with Ouhd5152-71-70 14:57:42* Test Item Value Reference Range Interpretation [...] g/dL 31.6-35.1 L RDW-SD (test code = 97694-9) 52.6 fL 39.0-49.9 H RDW-CV (test code = 788-0) 16.9 % 12.0-15.5 H PLT (test code = 777-3) 103 166-358 L MPV (test code = 07536-3) 11.7 fL 9.5-12.9 IPF % (test code = 9088322622) 6.3 % 1.3-7.7 Platelet count measured by fluorescence method. NRBC/100 WBC (test code = 3848070609) 0.0 0.0-10.0 NRBC x10^3 (test code = 1052715581) See_Comment [Automated messa ge] The system which generated this result transmitted reference range: 10*3/?L. The reference range was not used to interpret this result as normal/abnormal. GRAN MAT (NEUT) % (test code = 770-8) 66.7 % IMM GRAN % (test code = 2954363303) 0.40 % LYMPH % (test code = 736-9) 20.3 % MONO % (test code = 5905-5) 7.8 % EOS % (test code = 713-8) 3.6 % BASO % (test code = 706-2) 1.2 % GRAN MAT x10^3(ANC) (test code = 7781449925) 3.36 10*3/uL 1.88-7.09 IMM GRAN x10^3 (test code = 7593920937) 0.00-0.06 LYMPH x10^3 (test code = 731-0) 1.02 10*3/uL 1.32-3.29 L MONO x10^3 (test code = 742-7) 0.39 10*3/uL 0.33-0.92 EOS x10^3 (test code = 711-2) 0.18 10*3/uL 0.03-0.39 BASO x10^3 (test code = 704-7) 0.06 10*3/uL 0.01-0.07 Lab Interpretation (test code = 67851-2) Abnormal [facility] with Qgfk4690-57-04 14:57:42* Test Item Value Reference Range Interpretation [...] g/dL 31.6-35.1 L RDW-SD (test code = 47985-2) 52.6 fL 39.0-49.9 H RDW-CV (test code = 788-0) 16.9 % 12.0-15.5 H PLT (test code = 777-3) 103 166-358 L MPV (test code = 23710-3) 11.7 fL 9.5-12.9 IPF % (test code = 7057506545) 6.3 % 1.3-7.7 Platelet count measured by fluorescence method. NRBC/100 WBC (test code = 6435889283) 0.0 0.0-10.0 NRBC x10^3 (test code = 2273606600) See_Comment [Automated messa ge] The system which generated this result transmitted reference range: 10*3/?L. The reference range was not used to interpret this result as normal/abnormal. GRAN MAT (NEUT) % (test code = 770-8) 66.7 % IMM GRAN % (test code = 4361666473) 0.40 % LYMPH % (test code = 736-9) 20.3 % MONO % (test code = 5905-5) 7.8 % EOS % (test code = 713-8) 3.6 % BASO % (test code = 706-2) 1.2 % GRAN MAT x10^3(ANC) (test code = 6637138925) 3.36 10*3/uL 1.88-7.09 IMM GRAN x10^3 (test code = 0993310825) 0.00-0.06 LYMPH x10^3 (test code = 731-0) 1.02 10*3/uL 1.32-3.29 L MONO x10^3 (test code = 742-7) 0.39 10*3/uL 0.33-0.92 EOS x10^3 (test code = 711-2) 0.18 10*3/uL 0.03-0.39 BASO x10^3 (test code = 704-7) 0.06 10*3/uL 0.01-0.07 Lab Interpretation (test code = 81771-3) Abnormal [facility]OR UDFAXC3207-45-36 05:48:33* Test Item Value Reference Range Interpretation Comme nts AFP, TUMOR MARKER (test code = 29155) 2.41 NG/ML <=8.30 TSH, THIRD FXCPSTLAWP2634-23-69 05:13:58* Test Item Value Reference Range Interpretation Comme nts TSH, THIRD GENERATION (test code = 2821) 2.250 UIU/ML 0.400-4.100 HEMOGLOBIN Q2m7296-48-57 04:17:24* Test Item Value Reference Range Interpretation Comme nts HEMOGLOBIN A1c (test code = 88518) 5.1 % 4.2-5.6 UNLESS OTHERWISE INDICATED, ALL TESTING PERFORMED AT [facility] [address] [place] [address] [employer]: SALENA BOTELLO M.D. [place] NUMBER [id number] [facility] [place] [id number] HEMOGLOBIN [id number] 00:00:00* Test Item Value Reference Range Interpretation Comme nts HEMOGLOBIN A1c (test code = 64942) 5.1 % Jonatan F AustinAFP, TUMOR PEQICU9373-11-33 00:00:00* Test Item Value Reference Range Interpretation Comme nts AFP, TUMOR MARKER (test code = 59242) 2.41 NG/ML Jonatan F SdtokjBZD1055-12-66 00:00:00* Test Item Value Reference Range Interpretation Comme nts TSH, THIRD GENERATION (test code = 2821) 2.250 UIU/ML Jonatan F AustinHEMOGLOBIN [id number] 00:00:00* Test Item Value Reference Range Interpretation Comme nts HEMOGLOBIN A1c (test code = 24321) 5.1 % Jonatan F AustinAFP, TUMOR BYADWT0195-21-27 00:00:00* Test Item Value Reference Range Interpretation Comme nts AFP, TUMOR MARKER (test code = 86123) 2.41 NG/ML Jonatan F DzwkmfOJB3589-32-15 00:00:00* Test Item Value Reference Range Interpretation Comme nts TSH, THIRD GENERATION (test code = 2821) 2.250 UIU/ML Jonatan F AustinHEMOGLOBIN [id number] 00:00:00* Test Item Value Reference Range Interpretation Comme nts HEMOGLOBIN A1c (test code = 50839) 5.1 % Jonatan F AustinAFP, TUMOR [id number] 00:00:00* Test Item Value Reference Range Interpretation Comme nts AFP, TUMOR MARKER (test code = 72858) 2.41 NG/ML Jonatan F WcldzcYPA4817-79-62 00:00:00* Test Item Value Reference Range Interpretation Comme nts TSH, THIRD GENERATION (test code = 2821) 2.250 UIU/ML Jonatan F AustinHEMOGLOBIN [id number] 00:00:00* Test Item Value Reference Range Interpretation Comme nts HEMOGLOBIN A1c (test code = 99230) 5.1 % Jonatan Barber AustinAFP, TUMOR [id number] 00:00:00* Test Item Value Reference Range Interpretation Comme nts AFP, TUMOR MARKER (test code = 43368) 2.41 NG/ML Jonatan Barber AustinAFP, TUMOR [id number] 00:00:00* Test Item Value Reference Range Interpretation Comme nts AFP, TUMOR MARKER (test code = 12683) 2.41 NG/ML Jonatan F MstsmkGCQ8207-98-64 00:00:00* Test Item Value Reference Range Interpretation Comme nts TSH, THIRD GENERATION (test code = 2821) 2.250 UIU/ML Jonatan Barber AustinHEMOGLOBIN [id number] 00:00:00* Test Item Value Reference Range Interpretation Comme nts HEMOGLOBIN A1c (test code = 36951) 5.1 % Jonatan Barber SomqfxTIU8063-90-49 00:00:00* Test Item Value Reference Range Interpretation Comme nts TSH, THIRD GENERATION (test code = 2821) 2.250 UIU/ML Jonatan Barber AustinAFP, TUMOR PTUHXR7901-74-12 00:00:00* Test Item Value Reference Range Interpretation Comme nts AFP, TUMOR MARKER (test code = 61234) 2.41 NG/ML Jonatan Barber AustinHEMOGLOBIN [id number] 00:00:00* Test Item Value Reference Range Interpretation Comme nts HEMOGLOBIN A1c (test code = 65579) 5.1 % Jonatan Barber AustinAFP, TUMOR [id number] 00:00:00* Test Item Value Reference Range Interpretation Comme nts AFP, TUMOR MARKER (test code = 69706) 2.41 NG/ML Jonatan F NyyjrtEUG1878-31-10 00:00:00* Test Item Value Reference Range Interpretation Comme nts TSH, THIRD GENERATION (test code = 2821) 2.250 UIU/ML Jonatan F AustinHEMOGLOBIN [id number] 00:00:00* Test Item Value Reference Range Interpretation Comme nts HEMOGLOBIN A1c (test code = 34765) 5.1 % Jonatan F [id number] 00:00:00* Test Item Value Reference Range Interpretation Comme nts TSH, THIRD GENERATION (test code = 2821) 2.250 UIU/ML Jonatan F AustinHEMOGLOBIN [id number] 00:00:00* Test Item Value Reference Range Interpretation Comme nts HEMOGLOBIN A1c (test code = 22896) 5.1 % Jonatan F AustinAFP, TUMOR [id number] 00:00:00* Test Item Value Reference Range Interpretation Comme nts AFP, TUMOR MARKER (test code = 11578) 2.41 NG/ML Jonatan F [id number] 00:00:00* Test Item Value Reference Range Interpretation Comme nts TSH, THIRD GENERATION (test code = 2821) 2.250 UIU/ML Jonatan F AustinHEMOGLOBIN [id number] 00:00:00* Test Item Value Reference Range Interpretation Comme nts HEMOGLOBIN A1c (test code = 03708) 5.1 % Jonatan F AustinAFP, TUMOR [id number] 00:00:00* Test Item Value Reference Range Interpretation Comme nts AFP, TUMOR MARKER (test code = 86527) 2.41 NG/ML Jonatan F [id number] 00:00:00* Test Item Value Reference Range Interpretation Comme nts TSH, THIRD GENERATION (test code = 2821) 2.250 UIU/ML Jonatan F AustinHEMOGLOBIN [id number] 00:00:00* Test Item Value Reference Range Interpretation Comme nts HEMOGLOBIN A1c (test code = 73207) 5.1 % Jonatan F AustinAFP, TUMOR [id number] 00:00:00* Test Item Value Reference Range Interpretation Comme nts AFP, TUMOR MARKER (test code = 56943) 2.41 NG/ML Jonatan F [id number] 00:00:00* Test Item Value Reference Range Interpretation Comme nts TSH, THIRD GENERATION (test code = 2821) 2.250 UIU/ML Jonatan F AustinHEMOGLOBIN [id number] 00:00:00* Test Item Value Reference Range Interpretation Comme nts HEMOGLOBIN A1c (test code = 26685) 5.1 % Jonatan F AustinAFP, TUMOR [id number] 00:00:00* Test Item Value Reference Range Interpretation Comme nts AFP, TUMOR MARKER (test code = 42959) 2.41 NG/ML Jonatan [id number] 00:00:00* Test Item Value Reference Range Interpretation Comme nts TSH, THIRD GENERATION (test code = 2821) 2.250 UIU/ML Jonatan Barber AustinPOCT URINALYSIS W SPECIFIC [id number] 19:16:00* Test Item Value Reference Range Interpretation [...] hazy Lab Interpretation (test cod e = 27316-6) [facility] [id number] 19:16:00* Test Item Value Reference Range Interpretation [...] hazy Lab Interpretation (test cod e = 59006-8) Normal [facility] URINALYSIS W SPECIFIC [id number] 19:16:00* Test Item Value Reference Range Interpretation [...] hazy Lab Interpretation (test cod e = 94955-3) Normal [facility] URINALYSIS W SPECIFIC [id number] 19:16:00* Test Item Value Reference Range Interpretation [...] hazy Lab Interpretation (test cod e = 56757-2) [facility] URINALYSIS, [id number] 15:26:00 * Test Item Value Reference Range [...] Clear Lab Interpretation (test cod e = 32309-6) [facility] URINALYSIS, [id number] 15:26:00 * Test Item Value Reference Range [...] Clear Lab Interpretation (test cod e = 35054-4) [facility]/O SPECIFIC [id number] 16:08:00* Test Item Value Reference Range Interpretation [...] = 3257) 250 Negative - Negati ve [facility]/O SPECIFIC [id number] 16:08:00* Test Item Value Reference Range Interpretation [...] = 3257) 250 Negative - Negati ve [facility]SFERRIN2023-08-11 06:51:59* Test Item Value Reference Range Interpretation Comme nts TRANSFERRIN (test code = 4936) 332 MG/DL 200-360 UNLESS OTHERWISE INDICATED, ALL TESTING PERFORMED AT [facility] [address] [place] [id number] [employer]: SALENA BOTELLO M.D. CLIA NUMBER [id number] [facility] [place]. [id number] HEMOGLOBIN [id number] 06:42:40* Test Item Value Reference Range Interpretation Comme nts HEMOGLOBIN A1c (test code = 97737) 5.0 % 4.2-5.6 CBC W/AUTO DIFF WITH [id number] 06:22:48* Test Item Value Reference Range Interpretation [...] 0.00-0.10 ABS NUCLEATED RBCS (test code = 36740) 0.00 K/UL 0.00-0.11 [id number] 06:06:10* Test Item Value Reference Range Interpretation Comme nts FERRITIN (test code = 2074) 29 NG/ML 13-200 LIPID [id number] 05:58:49* Test Item Value Reference Range Interpretation Comme nts CHOLESTEROL (test code = 2210) 157 MG/DL <200 TRIGLYCERIDES (test code = 2232) 78 MG/DL <150 HDL CHOLESTEROL (test code = 2220) 74 MG/DL >39 CALC LDL CHOL (test code = 7) 67 MG/DL <100 NOTE: CALCULATED LDL IS BASED ON OJ-HERNANDES METHOD WHICHINCLUDES ADJUSTABLE TRIGLYCERIDE:VLDL CHOLESTEROL RATIO.THIS FACTOR VARIES BY MEASURED TRIGLYCERIDE AND NON-HDLCHOLESTEROL CONCENTRATIONS WITH INCREASED CALCULATED LDL SEENIN HIGHER TRIGLYCERIDE OR LOWER NON-HDL SPECIMENS. FOR MOREINFORMATION, SEE CLIENT ANNOUNCEMENT AT [email or web address] RISK RATIO LDL/HDL (test code = 2237) 0.91 RATIO <3.22 COMPREHENSIVE METABOLIC [id number] 05:58:49* Test Item Value Reference Range Interpretation Comme nts GLUCOSE (test code = 7) 97 MG/DL 70-99 BUN (test code = 2207) 14 MG/DL 8-23 CREATININE (test code = 2214) 0.69 MG/DL 0.60-1.30 eGFR (2020 CKD-EPI) (test code = 42433) 97 ML/MIN/1.73 >60 CALC BUN/CREAT (test code = 2235) 20 RATIO 6-28 SODIUM (test code = 2230) 144 MEQ/L 133-146 POTASSIUM (test code = 2228) 4.1 MEQ/L 3.5-5.4 CHLORIDE (test code = 2215) 109 MEQ/L 95-107 H CARBON DIOXIDE (test code = 2206) 23 MEQ/L 19-31 CALCIUM (test code = 2209) 9.2 MG/DL 8.5-10.5 PROTEIN, TOTAL (test code = 2228) 6.8 G/DL 6.1-8.3 ALBUMIN (test code = 2200) 4.1 G/DL 3.5-5.2 CALC GLOBULIN (test code = 2240) 2.7 G/DL 1.9-3.7 CALC A/G RATIO (test code = 2234) 1.5 RATIO 1.0-2.6 BILIRUBIN, TOTAL (test code = 7) 0.8 MG/DL See_Comment [Automated me ssage] The system which generated this result transmitted reference range: <=1.2. The reference range was not used to interpret this result as normal/abnormal. ALKALINE PHOSPHATASE (test code = 2203) 125 U/L 40-140 AST (test code = 2217) 49 U/L 9-40 H ALT (test code = 2218) 32 U/L 5-40 IRON BINDING CAPACITY AND IRON AND % [id number] 05:58:49* Test Item Value Reference Range Interpretation Comme nts IRON, SERUM (test code = 2221) 63 UG/DL 37-145 UNSATURATED IBC (test code = ) 333 UG/DL 112-347 CALC TOTAL IBC (test code = 2076) 396 UG/DL 250-450 CALC % IRON SAT (test code = 2078) 16 % 20-50 L LIPID [id number] 00:00:00* Test Item Value Reference Range Interpretation Comme nts CHOLESTEROL (test code = 2210) 157 MG/DL TRIGLYCERIDES (test code = 2) 78 MG/DL HDL CHOLESTEROL (test code = 0) 74 MG/DL CALC LDL CHOL (test code = 7) 67 MG/DL RISK RATIO LDL/HDL (test cod e = 2238) 0.91 RATIO Jonatan F AustinCOMPREHENSIVE METABOLIC [id number] 00:00:00* Test Item Value Reference Range Interpretation Comme nts GLUCOSE (test code = 7) 97 MG/DL BUN (test code = 8) 14 MG/DL CREATININE (test code = 2214) 0.69 MG/DL eGFR (2020 CKD-EPI) (test co de = 15086) 97 ML/MIN/1.73 CALC BUN/CREAT (test code = 2235) 20 RATIO SODIUM (test code = 223) 144 MEQ/L POTASSIUM (test code = 2228) 4.1 MEQ/L CHLORIDE (test code = 2215) 109 MEQ/L CARBON DIOXIDE (test code = 6) 23 MEQ/L CALCIUM (test code = 2209) 9.2 MG/DL PROTEIN, TOTAL (test code = 9) 6.8 G/DL ALBUMIN (test code = 2201) 4.1 G/DL CALC GLOBULIN (test code = 2240) 2.7 G/DL CALC A/G RATIO (test code = 2234) 1.5 RATIO BILIRUBIN, TOTAL (test code = 2207) 0.8 MG/DL ALKALINE PHOSPHATASE (test code = 2204) 125 U/L AST (test code = 2218) 49 U/L ALT (test code = 9) 32 U/L Jonatan EasonIRON BINDING CAPACITY AND IRON AND % [id number] 00:00:00* Test Item Value Reference Range Interpretation Comme nts IRON, SERUM (test code = 2221) 63 UG/DL UNSATURATED IBC (test code = 39142) 333 UG/DL CALC TOTAL IBC (test code = 2076) 396 UG/DL CALC % IRON SAT (test code = 2078) 16 % Jonatan [id number] 00:00:00* Test Item Value Reference Range Interpretation Comme nts FERRITIN (test code = 2074) 29 NG/ML Jonatan Barber [id number] 00:00:00* Test Item Value Reference Range Interpretation Comme nts TRANSFERRIN (test code = 4936) 332 MG/DL Jonatan EasonCBC W/AUTO [id number] 00:00:00* Test Item Value Reference Range Interpretation [...] ABS NUCLEATED RBCS (test cod e = 52065) 0.00 K/UL Jonatan EasonHEMOGLOBIN [id number] 00:00:00* Test Item Value Reference Range Interpretation Comme nts HEMOGLOBIN A1c (test code = 11991) 5.0 % Jonatan EasonLIPID [id number] 00:00:00* Test Item Value Reference Range Interpretation Comme nts CHOLESTEROL (test code = 2210) 157 MG/DL TRIGLYCERIDES (test code = 2232) 78 MG/DL HDL CHOLESTEROL (test code = 2220) 74 MG/DL CALC LDL CHOL (test code = 2237) 67 MG/DL RISK RATIO LDL/HDL (test cod e = 2238) 0.91 RATIO Jonatan EasonCOMPREHENSIVE METABOLIC [id number] 00:00:00* Test Item Value Reference Range Interpretation Comme nts GLUCOSE (test code = 2217) 97 MG/DL BUN (test code = 2208) 14 MG/DL CREATININE (test code = 2214) 0.69 MG/DL eGFR (2020 CKD-EPI) (test co de = 88178) 97 ML/MIN/1.73 CALC BUN/CREAT (test code = [...] 2218) 49 U/L ALT (test code = 9) 32 U/L Jonatan EasonIRON BINDING CAPACITY AND IRON AND % [id number] 00:00:00* Test Item Value Reference Range Interpretation Comme nts IRON, SERUM (test code = 2222) 63 UG/DL UNSATURATED IBC (test code = 00316) 333 UG/DL CALC TOTAL IBC (test code = 2076) 396 UG/DL CALC % IRON SAT (test code = 2078) 16 % Jonatan [id number] 00:00:00* Test Item Value Reference Range Interpretation Comme nts FERRITIN (test code = 2074) 29 NG/ML Jonatan [id number] 00:00:00* Test Item Value Reference Range Interpretation Comme nts TRANSFERRIN (test code = 4936) 332 MG/DL Jonatan EasonCBC W/AUTO [id number] 00:00:00* Test Item Value Reference Range Interpretation [...] ABS NUCLEATED RBCS (test cod e = 37843) 0.00 K/UL Jonatan EasonHEMOGLOBIN [id number] 00:00:00* Test Item Value Reference Range Interpretation Comme nts HEMOGLOBIN A1c (test code = 85415) 5.0 % Jonatan EasonLIPID [id number] 00:00:00* Test Item Value Reference Range Interpretation Comme nts CHOLESTEROL (test code = 2210) 157 MG/DL TRIGLYCERIDES (test code = 2232) 78 MG/DL HDL CHOLESTEROL (test code = 2220) 74 MG/DL CALC LDL CHOL (test code = 2237) 67 MG/DL RISK RATIO LDL/HDL (test cod e = 2238) 0.91 RATIO Jonatan EasonCOMPREHENSIVE METABOLIC [id number] 00:00:00* Test Item Value Reference Range Interpretation Comme nts GLUCOSE (test code = 2217) 97 MG/DL BUN (test code = 2208) 14 MG/DL CREATININE (test code = 2214) 0.69 MG/DL eGFR (2020 CKD-EPI) (test co de = 87279) 97 ML/MIN/1.73 CALC BUN/CREAT (test code = [...] EasonIRON BINDING CAPACITY AND IRON AND % [id number] 00:00:00* Test Item Value Reference Range Interpretation Comme nts IRON, SERUM (test code = 2222) 63 UG/DL UNSATURATED IBC (test code = 11315) 333 UG/DL CALC TOTAL IBC (test code = 2076) 396 UG/DL CALC % IRON SAT (test code = 9) 16 % Jonatan [id number] 00:00:00* Test Item Value Reference Range Interpretation Comme nts FERRITIN (test code = 2075) 29 NG/ML Jonatan Eas[id number] 00:00:00* Test Item Value Reference Range Interpretation Comme nts TRANSFERRIN (test code = 4936) 332 MG/DL Jonatan EasonCBC W/AUTO [id number] 00:00:00* Test Item Value Reference Range Interpretation [...] ABS NUCLEATED RBCS (test cod e = 59642) 0.00 K/UL Jonatan EasonHEMOGLOBIN [id number] 00:00:00* Test Item Value Reference Range Interpretation Comme nts HEMOGLOBIN A1c (test code = 78062) 5.0 % Jonatan EasonLIPID [id number] 00:00:00* Test Item Value Reference Range Interpretation Comme nts CHOLESTEROL (test code = 2210) 157 MG/DL TRIGLYCERIDES (test code = 2232) 78 MG/DL HDL CHOLESTEROL (test code = 2220) 74 MG/DL CALC LDL CHOL (test code = 2237) 67 MG/DL RISK RATIO LDL/HDL (test cod e = 2238) 0.91 RATIO Jonatan EasonCOMPREHENSIVE METABOLIC [id number] 00:00:00* Test Item Value Reference Range Interpretation Comme nts GLUCOSE (test code = 2217) 97 MG/DL BUN (test code = 2208) 14 MG/DL CREATININE (test code = 2214) 0.69 MG/DL eGFR (2020 CKD-EPI) (test co de = 77090) 97 ML/MIN/1.73 CALC BUN/CREAT (test code = [...] EasonIRON BINDING CAPACITY AND IRON AND % [id number] 00:00:00* Test Item Value Reference Range Interpretation Comme nts IRON, SERUM (test code = 2221) 63 UG/DL UNSATURATED IBC (test code = ) 333 UG/DL CALC TOTAL IBC (test code = 2076) 396 UG/DL CALC % IRON SAT (test code = 2078) 16 % Jonatan [id number] 00:00:00* Test Item Value Reference Range Interpretation Comme nts FERRITIN (test code = 2074) 29 NG/ML Jonatan [id number] 00:00:00* Test Item Value Reference Range Interpretation Comme nts TRANSFERRIN (test code = 4936) 332 MG/DL Jonatan Barber AustinCBC W/AUTO [id number] 00:00:00* Test Item Value Reference Range Interpretation [...] ABS NUCLEATED RBCS (test cod e = 80912) 0.00 K/UL Jonatan EasonCBC W/AUTO [id number] 00:00:00* Test Item Value Reference Range Interpretation [...] ABS NUCLEATED RBCS (test cod e = 60877) 0.00 K/UL Jonatan EasonHEMOGLOBIN [id number] 00:00:00* Test Item Value Reference Range Interpretation Comme nts HEMOGLOBIN A1c (test code = 09642) 5.0 % Jonatan EasonLIPID [id number] 00:00:00* Test Item Value Reference Range Interpretation Comme nts CHOLESTEROL (test code = 2210) 157 MG/DL TRIGLYCERIDES (test code = 2232) 78 MG/DL HDL CHOLESTEROL (test code = 2220) 74 MG/DL CALC LDL CHOL (test code = 2237) 67 MG/DL RISK RATIO LDL/HDL (test cod e = 2238) 0.91 RATIO Jonatan EasonCOMPREHENSIVE METABOLIC [id number] 00:00:00* Test Item Value Reference Range Interpretation Comme nts GLUCOSE (test code = 2217) 97 MG/DL BUN (test code = 2208) 14 MG/DL CREATININE (test code = 2214) 0.69 MG/DL eGFR (2020 CKD-EPI) (test co de = 10206) 97 ML/MIN/1.73 CALC BUN/CREAT (test code = 2234) 20 RATIO SODIUM (test code = 223) 144 MEQ/L POTASSIUM (test code = 2228) 4.1 MEQ/L CHLORIDE (test code = 2215) 109 MEQ/L CARBON DIOXIDE (test code = 2206) 23 MEQ/L CALCIUM (test code = 2209) 9.2 MG/DL PROTEIN, TOTAL (test code = 2228) 6.8 G/DL ALBUMIN (test code = 2200) 4.1 G/DL CALC GLOBULIN (test code = 0) 2.7 G/DL CALC A/G RATIO (test code = 2233) 1.5 RATIO BILIRUBIN, TOTAL (test code = 2206) 0.8 MG/DL ALKALINE PHOSPHATASE (test code = 2203) 125 U/L AST (test code = 2217) 49 U/L ALT (test code = 2218) 32 U/L Jonatan EasonIRON BINDING CAPACITY AND IRON AND % [id number] 00:00:00* Test Item Value Reference Range Interpretation Comme nts IRON, SERUM (test code = 2221) 63 UG/DL UNSATURATED IBC (test code = 44653) 333 UG/DL CALC TOTAL IBC (test code = 2076) 396 UG/DL CALC % IRON SAT (test code = 2078) 16 % Jonatan Barber [id number] 00:00:00* Test Item Value Reference Range Interpretation Comme nts FERRITIN (test code = 5) 29 NG/ML Jonatan Barber [id number] 00:00:00* Test Item Value Reference Range Interpretation Comme nts TRANSFERRIN (test code = 4936) 332 MG/DL Jonatan EasonHEMOGLOBIN [id number] 00:00:00* Test Item Value Reference Range Interpretation Comme nts HEMOGLOBIN A1c (test code = 39379) 5.0 % Jonatan EasonCBC W/AUTO [id number] 00:00:00* Test Item Value Reference Range Interpretation [...] ABS NUCLEATED RBCS (test cod e = 31601) 0.00 K/UL Jonatan Barbre AustinLIPID [id number] 00:00:00* Test Item Value Reference Range Interpretation Comme nts CHOLESTEROL (test code = 2210) 157 MG/DL TRIGLYCERIDES (test code = 2232) 78 MG/DL HDL CHOLESTEROL (test code = 2220) 74 MG/DL CALC LDL CHOL (test code = 2237) 67 MG/DL RISK RATIO LDL/HDL (test cod e = 2238) 0.91 RATIO Jonatan EasonCOMPREHENSIVE METABOLIC [id number] 00:00:00* Test Item Value Reference Range Interpretation Comme nts GLUCOSE (test code = 2217) 97 MG/DL BUN (test code = 2208) 14 MG/DL CREATININE (test code = 2214) 0.69 MG/DL eGFR (2020 CKD-EPI) (test co de = 19047) 97 ML/MIN/1.73 CALC BUN/CREAT (test code = 2235) 20 RATIO SODIUM (test code = 2230) 144 MEQ/L POTASSIUM (test code = 8) 4.1 MEQ/L CHLORIDE (test code = 5) 109 MEQ/L CARBON DIOXIDE (test code = 2205) 23 MEQ/L CALCIUM (test code = 2208) 9.2 MG/DL PROTEIN, TOTAL (test code = 2228) 6.8 G/DL ALBUMIN (test code = 1) 4.1 G/DL CALC GLOBULIN (test code = 2239) 2.7 G/DL CALC A/G RATIO (test code = 2233) 1.5 RATIO BILIRUBIN, TOTAL (test code = 2206) 0.8 MG/DL ALKALINE PHOSPHATASE (test code = 2203) 125 U/L AST (test code = 2217) 49 U/L ALT (test code = 2218) 32 U/L Jonatan EasonIRON BINDING CAPACITY AND IRON AND % [id number] 00:00:00* Test Item Value Reference Range Interpretation Comme nts IRON, SERUM (test code = 2221) 63 UG/DL UNSATURATED IBC (test code = 74949) 333 UG/DL CALC TOTAL IBC (test code = 2076) 396 UG/DL CALC % IRON SAT (test code = 2078) 16 % Jonatan [id number] 00:00:00* Test Item Value Reference Range Interpretation Comme nts FERRITIN (test code = 2074) 29 NG/ML Jonatan [id number] 00:00:00* Test Item Value Reference Range Interpretation Comme nts TRANSFERRIN (test code = 4936) 332 MG/DL Jonatan EasonCBC W/AUTO [id number] 00:00:00* Test Item Value Reference Range Interpretation [...] ABS NUCLEATED RBCS (test cod e = 37175) 0.00 K/UL Jonatan EasonHEMOGLOBIN [id number] 00:00:00* Test Item Value Reference Range Interpretation Comme nts HEMOGLOBIN A1c (test code = 51970) 5.0 % Jonatan EasonLIPID [id number] 00:00:00* Test Item Value Reference Range Interpretation Comme nts CHOLESTEROL (test code = 2210) 157 MG/DL TRIGLYCERIDES (test code = 2232) 78 MG/DL HDL CHOLESTEROL (test code = 2220) 74 MG/DL CALC LDL CHOL (test code = 2237) 67 MG/DL RISK RATIO LDL/HDL (test cod e = 2238) 0.91 RATIO Jonatan EasonCOMPREHENSIVE METABOLIC [id number] 00:00:00* Test Item Value Reference Range Interpretation Comme nts GLUCOSE (test code = 2217) 97 MG/DL BUN (test code = 2208) 14 MG/DL CREATININE (test code = 2214) 0.69 MG/DL eGFR (2020 CKD-EPI) (test co de = 54432) 97 ML/MIN/1.73 CALC BUN/CREAT (test code = 2235) 20 RATIO SODIUM (test code = 2231) 144 MEQ/L POTASSIUM (test code = 2228) 4.1 MEQ/L CHLORIDE (test code = 2215) 109 MEQ/L CARBON DIOXIDE (test code = 2206) 23 MEQ/L CALCIUM (test code = 2209) 9.2 MG/DL PROTEIN, TOTAL (test code = 9) 6.8 G/DL ALBUMIN (test code = 2201) 4.1 G/DL CALC GLOBULIN (test code = 2240) 2.7 G/DL CALC A/G RATIO (test code = 2234) 1.5 RATIO BILIRUBIN, TOTAL (test code = 7) 0.8 MG/DL ALKALINE PHOSPHATASE (test code = 2204) 125 U/L AST (test code = 2218) 49 U/L ALT (test code = 2219) 32 U/L Jonatan EasonIRON BINDING CAPACITY AND IRON AND % [id number] 00:00:00* Test Item Value Reference Range Interpretation Comme nts IRON, SERUM (test code = 2221) 63 UG/DL UNSATURATED IBC (test code = 45844) 333 UG/DL CALC TOTAL IBC (test code = 2076) 396 UG/DL CALC % IRON SAT (test code = 2078) 16 % Jonatan [id number] 00:00:00* Test Item Value Reference Range Interpretation Comme nts FERRITIN (test code = 2074) 29 NG/ML Jonatan [id number] 00:00:00* Test Item Value Reference Range Interpretation Comme nts TRANSFERRIN (test code = 4936) 332 MG/DL Jonatan EasonHEMOGLOBIN [id number] 00:00:00* Test Item Value Reference Range Interpretation Comme nts HEMOGLOBIN A1c (test code = 78802) 5.0 % Jonatan EasonLIPID [id number] 00:00:00* Test Item Value Reference Range Interpretation Comme nts CHOLESTEROL (test code = 2210) 157 MG/DL TRIGLYCERIDES (test code = 2232) 78 MG/DL HDL CHOLESTEROL (test code = 2220) 74 MG/DL CALC LDL CHOL (test code = 2237) 67 MG/DL RISK RATIO LDL/HDL (test cod e = 2238) 0.91 RATIO Jonatan EasonCOMPREHENSIVE METABOLIC [id number] 00:00:00* Test Item Value Reference Range Interpretation Comme nts GLUCOSE (test code = 7) 97 MG/DL BUN (test code = 8) 14 MG/DL CREATININE (test code = 2214) 0.69 MG/DL eGFR (2020 CKD-EPI) (test co de = 52557) 97 ML/MIN/1.73 CALC BUN/CREAT (test code = 2234) 20 RATIO SODIUM (test code = 223) 144 MEQ/L POTASSIUM (test code = 2228) 4.1 MEQ/L CHLORIDE (test code = 2215) 109 MEQ/L CARBON DIOXIDE (test code = 2205) 23 MEQ/L CALCIUM (test code = 220) 9.2 MG/DL PROTEIN, TOTAL (test code = 2228) 6.8 G/DL ALBUMIN (test code = 2200) 4.1 G/DL CALC GLOBULIN (test code = 0) 2.7 G/DL CALC A/G RATIO (test code = 2233) 1.5 RATIO BILIRUBIN, TOTAL (test code = 2206) 0.8 MG/DL ALKALINE PHOSPHATASE (test code = 2203) 125 U/L AST (test code = 2217) 49 U/L ALT (test code = 2218) 32 U/L Jnoatan Elisabeth LandyIRON BINDING CAPACITY AND IRON AND % [id number] 00:00:00* Test Item Value Reference Range Interpretation Comme nts IRON, SERUM (test code = 2221) 63 UG/DL UNSATURATED IBC (test code = ) 333 UG/DL CALC TOTAL IBC (test code = 2076) 396 UG/DL CALC % IRON SAT (test code = 2078) 16 % Jonatan [id number] 00:00:00* Test Item Value Reference Range Interpretation Comme nts FERRITIN (test code = 2074) 29 NG/ML Jonatan Barber [id number] 00:00:00* Test Item Value Reference Range Interpretation Comme nts TRANSFERRIN (test code = 4936) 332 MG/DL Jonatan Barber LandyCBC W/AUTO [id number] 00:00:00* Test Item Value Reference Range Interpretation [...] ABS NUCLEATED RBCS (test cod e = 00509) 0.00 K/UL Jonatan EasonHEMOGLOBIN [id number] 00:00:00* Test Item Value Reference Range Interpretation Comme nts HEMOGLOBIN A1c (test code = 16039) 5.0 % Jonatan EasonLIPID [id number] 00:00:00* Test Item Value Reference Range Interpretation Comme nts CHOLESTEROL (test code = 2210) 157 MG/DL TRIGLYCERIDES (test code = 2232) 78 MG/DL HDL CHOLESTEROL (test code = 2220) 74 MG/DL CALC LDL CHOL (test code = 2237) 67 MG/DL RISK RATIO LDL/HDL (test cod e = 2238) 0.91 RATIO Jonatan EasonCOMPREHENSIVE METABOLIC [id number] 00:00:00* Test Item Value Reference Range Interpretation Comme nts GLUCOSE (test code = 2217) 97 MG/DL BUN (test code = 2208) 14 MG/DL CREATININE (test code = 2214) 0.69 MG/DL eGFR (2020 CKD-EPI) (test co de = 60224) 97 ML/MIN/1.73 CALC BUN/CREAT (test code = 2235) 20 RATIO SODIUM (test code = 2231) 144 MEQ/L POTASSIUM (test code = 8) 4.1 MEQ/L CHLORIDE (test code = 5) 109 MEQ/L CARBON DIOXIDE (test code = 2205) 23 MEQ/L CALCIUM (test code = 2208) 9.2 MG/DL PROTEIN, TOTAL (test code = 2228) 6.8 G/DL ALBUMIN (test code = 2200) 4.1 G/DL CALC GLOBULIN (test code = 2239) 2.7 G/DL CALC A/G RATIO (test code = 2233) 1.5 RATIO BILIRUBIN, TOTAL (test code = 2206) 0.8 MG/DL ALKALINE PHOSPHATASE (test code = 2203) 125 U/L AST (test code = 2217) 49 U/L ALT (test code = 2218) 32 U/L Jonatan EasonIRON BINDING CAPACITY AND IRON AND % [id number] 00:00:00* Test Item Value Reference Range Interpretation Comme nts IRON, SERUM (test code = 2221) 63 UG/DL UNSATURATED IBC (test code = 94504) 333 UG/DL CALC TOTAL IBC (test code = 2076) 396 UG/DL CALC % IRON SAT (test code = 2078) 16 % Jonatan [id number] 00:00:00* Test Item Value Reference Range Interpretation Comme nts FERRITIN (test code = 2074) 29 NG/ML Jonatan [id number] 00:00:00* Test Item Value Reference Range Interpretation Comme nts TRANSFERRIN (test code = 4936) 332 MG/DL Jonatan EasonCBC W/AUTO [id number] 00:00:00* Test Item Value Reference Range Interpretation [...] ABS NUCLEATED RBCS (test cod e = 37371) 0.00 K/UL Jonatan EasonHEMOGLOBIN [id number] 00:00:00* Test Item Value Reference Range Interpretation Comme nts HEMOGLOBIN A1c (test code = 16060) 5.0 % Jonatan EasonLIPID [id number] 00:00:00* Test Item Value Reference Range Interpretation Comme nts CHOLESTEROL (test code = 2210) 157 MG/DL TRIGLYCERIDES (test code = 2232) 78 MG/DL HDL CHOLESTEROL (test code = 2220) 74 MG/DL CALC LDL CHOL (test code = 2237) 67 MG/DL RISK RATIO LDL/HDL (test cod e = 2238) 0.91 RATIO Jonatan EasonCOMPREHENSIVE METABOLIC [id number] 00:00:00* Test Item Value Reference Range Interpretation Comme nts GLUCOSE (test code = 2217) 97 MG/DL BUN (test code = 2208) 14 MG/DL CREATININE (test code = 2214) 0.69 MG/DL eGFR (2020 CKD-EPI) (test co de = 94115) 97 ML/MIN/1.73 CALC BUN/CREAT (test code = 2235) 20 RATIO SODIUM (test code = 2231) 144 MEQ/L POTASSIUM (test code = 2228) 4.1 MEQ/L CHLORIDE (test code = 2215) 109 MEQ/L CARBON DIOXIDE (test code = 2206) 23 MEQ/L CALCIUM (test code = 2209) 9.2 MG/DL PROTEIN, TOTAL (test code = 9) 6.8 G/DL ALBUMIN (test code = 2201) 4.1 G/DL CALC GLOBULIN (test code = 2240) 2.7 G/DL CALC A/G RATIO (test code = 2234) 1.5 RATIO BILIRUBIN, TOTAL (test code = 7) 0.8 MG/DL ALKALINE PHOSPHATASE (test code = 4) 125 U/L AST (test code = 8) 49 U/L ALT (test code = 2218) 32 U/L Jonatan EasonIRON BINDING CAPACITY AND IRON AND % [id number] 00:00:00* Test Item Value Reference Range Interpretation Comme nts IRON, SERUM (test code = 2221) 63 UG/DL UNSATURATED IBC (test code = 26170) 333 UG/DL CALC TOTAL IBC (test code = 2076) 396 UG/DL CALC % IRON SAT (test code = 2078) 16 % Jonatan [id number] 00:00:00* Test Item Value Reference Range Interpretation Comme nts FERRITIN (test code = 2074) 29 NG/ML Jonatan [id number] 00:00:00* Test Item Value Reference Range Interpretation Comme nts TRANSFERRIN (test code = 4936) 332 MG/DL Jonatan EasonCBC W/AUTO [id number] 00:00:00* Test Item Value Reference Range Interpretation [...] ABS NUCLEATED RBCS (test cod e = 01941) 0.00 K/UL Jonatan EasonHEMOGLOBIN [id number] 00:00:00* Test Item Value Reference Range Interpretation Comme nts HEMOGLOBIN A1c (test code = 50720) 5.0 % Jonatan EasonLIPID [id number] 00:00:00* Test Item Value Reference Range Interpretation Comme nts CHOLESTEROL (test code = 2210) 157 MG/DL TRIGLYCERIDES (test code = 2232) 78 MG/DL HDL CHOLESTEROL (test code = 2220) 74 MG/DL CALC LDL CHOL (test code = 2237) 67 MG/DL RISK RATIO LDL/HDL (test cod e = 2238) 0.91 RATIO Jonatan EasonCOMPREHENSIVE METABOLIC [id number] 00:00:00* Test Item Value Reference Range Interpretation Comme nts GLUCOSE (test code = 2217) 97 MG/DL BUN (test code = 2208) 14 MG/DL CREATININE (test code = 2214) 0.69 MG/DL eGFR (2020 CKD-EPI) (test co de = 04409) 97 ML/MIN/1.73 CALC BUN/CREAT (test code = [...] 1.5 RATIO BILIRUBIN, TOTAL (test code = 7) 0.8 MG/DL ALKALINE PHOSPHATASE (test code = 4) 125 U/L AST (test code = 2218) 49 U/L ALT (test code = 9) 32 U/L Jonatan EasonIRON BINDING CAPACITY AND IRON AND % [id number] 00:00:00* Test Item Value Reference Range Interpretation Comme nts IRON, SERUM (test code = 2221) 63 UG/DL UNSATURATED IBC (test code = 78922) 333 UG/DL CALC TOTAL IBC (test code = 2076) 396 UG/DL CALC % IRON SAT (test code = 2078) 16 % Jonatan [id number] 00:00:00* Test Item Value Reference Range Interpretation Comme nts FERRITIN (test code = 2074) 29 NG/ML Jonatan Barber [id number] 00:00:00* Test Item Value Reference Range Interpretation Comme nts TRANSFERRIN (test code = 4936) 332 MG/DL Jonatan EasonCBC W/AUTO [id number] 00:00:00* Test Item Value Reference Range Interpretation [...] ABS NUCLEATED RBCS (test cod e = 65712) 0.00 K/UL Jonatan EasonHEMOGLOBIN [id number] 00:00:00* Test Item Value Reference Range Interpretation Comme nts HEMOGLOBIN A1c (test code = 05577) 5.0 % Jonatan EasonCBC WITH [id number] 19:25:52* Test Item Value Reference Range Interpretation [...] 32.6 g/dL 31.6-35.1 RDW-SD (test code = 70833-2) 53.7 fL 39.0-49.9 H RDW-CV (test code = 788-0) 15.6 % 12.0-15.5 H PLT (test code = 777-3) 106 See_Comment L [Automated messa ge] The system which generated this result transmitted reference range: 166 - 358 10*3/?L. The reference range was not used to interpret this result as normal/abnormal. MPV (test code = 77903-3) 10.7 fL 9.5-12.9 IPF % (test code = 4559521524) 5.6 % 1.3-7.7 Platelet count measured by fluorescence method. NRBC/100 WBC (test code = 7995878518) 0.0 See_Comment [Automated me ssage] The system which generated this result transmitted reference range: 0.0 - 10.0 /100 WBCs. The reference range was not used to interpret this result as normal/abnormal. NRBC x10^3 (test code = 1525507731) See_Comment [Automated messa ge] The system which generated this result transmitted reference range: 10*3/?L. The reference range was not used to interpret this result as normal/abnormal. GRAN MAT (NEUT) % (test code = 770-8) 73.2 % IMM GRAN % (test code = 8366051918) 0.30 % LYMPH % (test code = 736-9) 15.5 % MONO % (test code = 5905-5) 8.6 % EOS % (test code = 713-8) 1.6 % BASO % (test code = 706-2) 0.8 % GRAN MAT x10^3(ANC) (test code = 1787874635) 4.57 10*3/uL 1.88-7.09 IMM GRAN x10^3 (test code = 1320613796) 0.00-0.06 LYMPH x10^3 (test code = 731-0) 0.97 10*3/uL 1.32-3.29 L MONO x10^3 (test code = 742-7) 0.54 10*3/uL 0.33-0.92 EOS x10^3 (test code = 711-2) 0.10 10*3/uL 0.03-0.39 BASO x10^3 (test code = 704-7) 0.05 10*3/uL 0.01-0.07 Lab Interpretation (test code = 08361-7) [facility]normal [facility] [id number] 19:23:08* Test Item Value Reference Range Interpretation Comme nts TROPONIN I (test code = 3230762323) 0.003 ng/mL <=0.034 FRANKO (test code = [...] of biotin. Lab Interpretation (test code = 50704-6) Normal [facility]. METABOLIC PANEL (14509)2022-11-21 19:12:06* Test Item Value Reference Range Interpretation Comme nts NA (test code = 2698196594) 139 mmol/L 135-145 K (test code = 9983844677) 4.2 mmol/L 3.5-5.0 CL (test code = 0589998680) 108 mmol/L 98-108 CO2 TOTAL (test code = 4250451821) 21 mmol/L 23-31 L AGAP (test code = 9505115819) 10 2-16 BUN (test code = 5383989965) 14 mg/dL 7-23 GLUCOSE (test code = 8928839526) 127 mg/dL 70-110 H CREATININE (test code = 2183262628) 0.54 mg/dL 0.50-1.04 TOTAL BILI (test code = 0114062430) 1.8 mg/dL 0.1-1.1 H CALCIUM (test code = 3384483418) 8.9 mg/dL 8.6-10.6 T PROTEIN (test code = 7332830915) 7.4 g/dL 6.3-8.2 ALBUMIN (test code = 3670378838) 4.2 g/dL 3.5-5.0 ALK PHOS (test code = 7652294735) 126 U/L 34-122 H ALTv (test code = 1742-6) 37 U/L 5-35 H AST(SGOT) (test code = 8247381422) 52 U/L 13-40 H eGFR (test code = 4609903537) 114.0 mL/min/1.73m2 FRANKO (test code = FRANKO) [...] imaging tests). Lab Interpretation (test code = 69117-5) Abnormal [facility] 19:12:05* Test Item Value Reference Range Interpretation Comme nts LIPASE (test code = 6846079447) 68 U/L 0-220 Lab Interpretation (test cod e = 65011-7) Normal [facility], [id number] 14:09:00 * Test Item Value Reference Range [...] U APPEAR (test code = 3267) clear [facility] URINALYSIS, [id number] 14:09:00 * Test Item Value Reference Range [...] POCT U APPEAR (test code = 3267) [facility], THIRD [id number] 07:08:03* Test Item Value Reference Range Interpretation Comme nts TSH, THIRD GENERATION (test code = 2821) 1.260 UIU/ML 0.400-4.100 [facility] has impo rtant pathology staff changes effective 07/12/2022. New pathology staff will provide uninterrupted, excellent patient care and clinical consultation. See URL: [email or web address]. UNLESS OTHERWISE INDICATED, ALL TESTING PERFORMED AT [facility] [address] [place] [address] [employer]: SALENA BOTELLO M.D. CLIA NUMBER [id number] [facility] [place] [place]. [id number] TSH, THIRD [id number] 00:00:00* Test Item Value Reference Range Interpretation Comme nts TSH, THIRD GENERATION (test code = 2821) 1.260 UIU/ML Jonatan Granado, THIRD [id number] 00:00:00* Test Item Value Reference Range Interpretation Comme nts TSH, THIRD GENERATION (test code = 2821) 1.260 UIU/ML Jonatan Granado, THIRD [id number] 00:00:00* Test Item Value Reference Range Interpretation Comme nts TSH, THIRD GENERATION (test code = 2821) 1.260 UIU/ML Joantan Granado THIRD [id number] 00:00:00* Test Item Value Reference Range Interpretation Comme nts TSH, THIRD GENERATION (test code = 2821) 1.260 UIU/ML Jonatan Granado, THIRD [id number] 00:00:00* Test Item Value Reference Range Interpretation Comme nts TSH, THIRD GENERATION (test code = 2821) 1.260 UIU/ML Jonatan Granado THIRD [id number] 00:00:00* Test Item Value Reference Range Interpretation Comme nts TSH, THIRD GENERATION (test code = 2821) 1.260 UIU/ML Jonatan Granado, THIRD [id number] 00:00:00* Test Item Value Reference Range Interpretation Comme nts TSH, THIRD GENERATION (test code = 2821) 1.260 UIU/ML Jonatan Granado, THIRD [id number] 00:00:00* Test Item Value Reference Range Interpretation Comme nts TSH, THIRD GENERATION (test code = 2821) 1.260 UIU/ML Jonatan Granado, THIRD [id number] 00:00:00* Test Item Value Reference Range Interpretation Comme nts TSH, THIRD GENERATION (test code = 2821) 1.260 UIU/ML Jonatan Granado, THIRD [id number] 00:00:00* Test Item Value Reference Range Interpretation Comme nts TSH, THIRD GENERATION (test code = 2821) 1.260 UIU/ML Jonatan Granado, THIRD [id number] 00:00:00* Test Item Value Reference Range Interpretation Comme nts TSH, THIRD GENERATION (test code = 2821) 1.260 UIU/ML Jonatan Granado, THIRD [id number] 06:48:09* Test Item Value Reference Range Interpretation Comme nts TSH, THIRD GENERATION (test code = 2821) 14.800 UIU/ML 0.400-4.100 H UNLESS OTHERWISE INDICATED, ALL TESTING PERFORMED [facility] [address] [place] [address] [employer]: CASSIE PHAM M.D. CLIA NUMBER [id number] [facility] [place]. [id number] LIPID [id number] 06:15:59* Test Item Value Reference Range Interpretation [...] SPECIMENS. FOR MOREINFORMATION, SEE CLIENT ANNOUNCEMENT AT [email or web address] RISK RATIO LDL/HDL (test code = 2238) 1.71 RATIO <3.22 COMPREHENSIVE METABOLIC [id number] 06:15:59* Test Item Value Reference Range Interpretation Comme nts GLUCOSE (test code = 2217) 102 MG/DL 70-99 H BUN (test code = 2208) 11 MG/DL 8-23 CREATININE (test code = 2214) 0.76 MG/DL 0.60-1.30 eGFR (2020 CKD-EPI) (test code = 72258) 88 ML/MIN/1.73 >60 CALC BUN/CREAT (test code = 2235) 14 RATIO 6-28 SODIUM (test code = 2231) 147 MEQ/L 133-146 H POTASSIUM (test code = 2228) 4.6 MEQ/L 3.5-5.4 CHLORIDE (test code = 2214) 109 MEQ/L 95-107 H CARBON DIOXIDE (test code = 2205) 24 MEQ/L 19-31 CALCIUM (test code = 2208) 9.0 MG/DL 8.5-10.5 PROTEIN, TOTAL (test code = 2228) 6.6 G/DL 6.1-8.3 ALBUMIN (test code = 2200) 4.2 G/DL 3.5-5.2 CALC GLOBULIN (test code = 2239) 2.4 G/DL 1.9-3.7 CALC A/G RATIO (test [...] code = 2218) 34 U/L 5-40 HEMOGLOBIN [id number] 05:10:41* Test Item Value Reference Range Interpretation Comme nts HEMOGLOBIN A1c (test code = 72397) 5.3 % 4.2-5.6 CBC W/AUTO DIFF WITH [id number] 04:27:23* Test Item Value Reference Range Interpretation [...] = 1065) 0.0 /100 WBC'S See_Comment [Automated RockYoua ge] The system which generated this result [...] 0.00-0.10 ABS NUCLEATED RBCS (test code = 86745) 0.00 K/UL 0.00-0.11 LIPID [id number] 00:00:00* Test Item Value Reference Range Interpretation Comme nts CHOLESTEROL (test code = 2210) 201 MG/DL TRIGLYCERIDES (test code = 2232) 142 MG/DL HDL CHOLESTEROL (test code = 2220) 65 MG/DL CALC LDL CHOL (test code = 2237) 111 MG/DL RISK RATIO LDL/HDL (test cod e = 2238) 1.71 RATIO Jonatan F AustinCOMPREHENSIVE METABOLIC [id number] 00:00:00* Test Item Value Reference Range Interpretation Comme nts GLUCOSE (test code = 2217) 102 MG/DL BUN (test code = 2208) 11 MG/DL CREATININE (test code = 2214) 0.76 MG/DL eGFR (2020 CKD-EPI) (test co de = 30659) 88 ML/MIN/1.73 CALC BUN/CREAT (test code = [...] = 2219) 34 U/L Jonatan McnamaraH, THIRD [id number] 00:00:00* Test Item Value Reference Range Interpretation Comme nts TSH, THIRD GENERATION (test code = 2821) 14.800 UIU/ML Jonatan EasonCBC W/AUTO [id number] 00:00:00* Test Item Value Reference Range Interpretation [...] ABS NUCLEATED RBCS (test cod e = 31954) 0.00 K/UL Jonatan EasonHEMOGLOBIN [id number] 00:00:00* Test Item Value Reference Range Interpretation Comme nts HEMOGLOBIN A1c (test code = 95552) 5.3 % Jonatan EasonLIPID [id number] 00:00:00* Test Item Value Reference Range Interpretation Comme nts CHOLESTEROL (test code = 2210) 201 MG/DL TRIGLYCERIDES (test code = 2232) 142 MG/DL HDL CHOLESTEROL (test code = 2220) 65 MG/DL CALC LDL CHOL (test code = 2237) 111 MG/DL RISK RATIO LDL/HDL (test cod e = 2238) 1.71 RATIO Jonatan EasonCOMPREHENSIVE METABOLIC [id number] 00:00:00* Test Item Value Reference Range Interpretation Comme nts GLUCOSE (test code = 2217) 102 MG/DL BUN (test code = 2208) 11 MG/DL CREATININE (test code = 2214) 0.76 MG/DL eGFR (2020 CKD-EPI) (test co de = 07858) 88 ML/MIN/1.73 CALC BUN/CREAT (test code = [...] (test code = 2219) 34 U/L Jonatan EasonCAMMIE, THIRD [id number] 00:00:00* Test Item Value Reference Range Interpretation Comme nts TSH, THIRD GENERATION (test code = 2821) 14.800 UIU/ML Jonatan EasonCBC W/AUTO [id number] 00:00:00* Test Item Value Reference Range Interpretation [...] ABS NUCLEATED RBCS (test cod e = 12059) 0.00 K/UL Jonatan EasonHEMOGLOBIN [id number] 00:00:00* Test Item Value Reference Range Interpretation Comme nts HEMOGLOBIN A1c (test code = 92003) 5.3 % Jonatan EasonLIPID [id number] 00:00:00* Test Item Value Reference Range Interpretation Comme nts CHOLESTEROL (test code = 2210) 201 MG/DL TRIGLYCERIDES (test code = 2232) 142 MG/DL HDL CHOLESTEROL (test code = 2220) 65 MG/DL CALC LDL CHOL (test code = 2237) 111 MG/DL RISK RATIO LDL/HDL (test cod e = 2238) 1.71 RATIO Jonatan EasonCOMPREHENSIVE METABOLIC [id number] 00:00:00* Test Item Value Reference Range Interpretation Comme nts GLUCOSE (test code = 2217) 102 MG/DL BUN (test code = 2208) 11 MG/DL CREATININE (test code = 2214) 0.76 MG/DL eGFR (2020 CKD-EPI) (test co de = 75414) 88 ML/MIN/1.73 CALC BUN/CREAT (test code = [...] (test code = 2219) 34 U/L [facility] [id number] 00:00:00* Test Item Value Reference Range Interpretation Comme nts TSH, THIRD GENERATION (test code = 2821) 14.800 UIU/ML Jonatan EasonCBC W/AUTO [id number] 00:00:00* Test Item Value Reference Range Interpretation [...] ABS NUCLEATED RBCS (test cod e = 05627) 0.00 K/UL Jonatan EasonHEMOGLOBIN [id number] 00:00:00* Test Item Value Reference Range Interpretation Comme nts HEMOGLOBIN A1c (test code = 67748) 5.3 % Jonatan EasonLIPID [id number] 00:00:00* Test Item Value Reference Range Interpretation Comme nts CHOLESTEROL (test code = 2210) 201 MG/DL TRIGLYCERIDES (test code = 2232) 142 MG/DL HDL CHOLESTEROL (test code = 2220) 65 MG/DL CALC LDL CHOL (test code = 2237) 111 MG/DL RISK RATIO LDL/HDL (test cod e = 2238) 1.71 RATIO Jonatan EasonCOMPREHENSIVE METABOLIC [id number] 00:00:00* Test Item Value Reference Range Interpretation Comme nts GLUCOSE (test code = 2217) 102 MG/DL BUN (test code = 2208) 11 MG/DL CREATININE (test code = 2214) 0.76 MG/DL eGFR (2020 CKD-EPI) (test co de = 96194) 88 ML/MIN/1.73 CALC BUN/CREAT (test code = [...] = 2219) 34 U/L Jonatan EasonTSH, THIRD [id number] 00:00:00* Test Item Value Reference Range Interpretation Comme nts TSH, THIRD GENERATION (test code = 2821) 14.800 UIU/ML Jonatan EasonCBC W/AUTO [id number] 00:00:00* Test Item Value Reference Range Interpretation [...] ABS NUCLEATED RBCS (test cod e = 54267) 0.00 K/UL Jonatan EasonCBC W/AUTO [id number] 00:00:00* Test Item Value Reference Range Interpretation [...] ABS NUCLEATED RBCS (test cod e = 74280) 0.00 K/UL Jonatan EasonHEMOGLOBIN [id number] 00:00:00* Test Item Value Reference Range Interpretation Comme nts HEMOGLOBIN A1c (test code = 57486) 5.3 % Jonatan EasonLIPID [id number] 00:00:00* Test Item Value Reference Range Interpretation Comme nts CHOLESTEROL (test code = 2210) 201 MG/DL TRIGLYCERIDES (test code = 2232) 142 MG/DL HDL CHOLESTEROL (test code = 2220) 65 MG/DL CALC LDL CHOL (test code = 2237) 111 MG/DL RISK RATIO LDL/HDL (test cod e = 2238) 1.71 RATIO Jonatan EasonCOMPREHENSIVE METABOLIC [id number] 00:00:00* Test Item Value Reference Range Interpretation Comme nts GLUCOSE (test code = 2217) 102 MG/DL BUN (test code = 2208) 11 MG/DL CREATININE (test code = 2214) 0.76 MG/DL eGFR (2020 CKD-EPI) (test co de = 35307) 88 ML/MIN/1.73 CALC BUN/CREAT (test code = [...] = 2219) 34 U/L Jonatan EasonTSH, THIRD [id number] 00:00:00* Test Item Value Reference Range Interpretation Comme nts TSH, THIRD GENERATION (test code = 2821) 14.800 UIU/ML Jonatan EasonHEMOGLOBIN [id number] 00:00:00* Test Item Value Reference Range Interpretation Comme nts HEMOGLOBIN A1c (test code = 85446) 5.3 % Jonatan EasonLIPID [id number] 00:00:00* Test Item Value Reference Range Interpretation Comme nts CHOLESTEROL (test code = 2210) 201 MG/DL TRIGLYCERIDES (test code = 2232) 142 MG/DL HDL CHOLESTEROL (test code = 2220) 65 MG/DL CALC LDL CHOL (test code = 2237) 111 MG/DL RISK RATIO LDL/HDL (test cod e = 2238) 1.71 RATIO Jonatan EasonCOMPREHENSIVE METABOLIC [id number] 00:00:00* Test Item Value Reference Range Interpretation Comme nts GLUCOSE (test code = 2217) 102 MG/DL BUN (test code = 2208) 11 MG/DL CREATININE (test code = 2214) 0.76 MG/DL eGFR (2020 CKD-EPI) (test co de = 38923) 88 ML/MIN/1.73 CALC BUN/CREAT (test code = [...] (test code = 2219) 34 U/L Jonatan Mcnamara, THIRD [id number] 00:00:00* Test Item Value Reference Range Interpretation Comme nts TSH, THIRD GENERATION (test code = 2821) 14.800 UIU/ML Jonatan EasonCBC W/AUTO [id number] 00:00:00* Test Item Value Reference Range Interpretation [...] ABS NUCLEATED RBCS (test cod e = 24351) 0.00 K/UL Jonatan Barber [facility] W/AUTO [id number] 00:00:00* Test Item Value Reference Range Interpretation [...] ABS NUCLEATED RBCS (test cod e = 53303) 0.00 K/UL Jonatan EasonHEMOGLOBIN [id number] 00:00:00* Test Item Value Reference Range Interpretation Comme nts HEMOGLOBIN A1c (test code = 51470) 5.3 % Jonatan EasonLIPID [id number] 00:00:00* Test Item Value Reference Range Interpretation Comme nts CHOLESTEROL (test code = 2210) 201 MG/DL TRIGLYCERIDES (test code = 2232) 142 MG/DL HDL CHOLESTEROL (test code = 2220) 65 MG/DL CALC LDL CHOL (test code = 2237) 111 MG/DL RISK RATIO LDL/HDL (test cod e = 2238) 1.71 RATIO Jonatan EasonCOMPREHENSIVE METABOLIC [id number] 00:00:00* Test Item Value Reference Range Interpretation Comme nts GLUCOSE (test code = 2217) 102 MG/DL BUN (test code = 2208) 11 MG/DL CREATININE (test code = 2214) 0.76 MG/DL eGFR (2020 CKD-EPI) (test co de = 35583) 88 ML/MIN/1.73 CALC BUN/CREAT (test code = [...] = 2219) 34 U/L Jonatan EasonTSH, THIRD [id number] 00:00:00* Test Item Value Reference Range Interpretation Comme nts TSH, THIRD GENERATION (test code = 2821) 14.800 UIU/ML Jonatan EasonHEMOGLOBIN [id number] 00:00:00* Test Item Value Reference Range Interpretation Comme nts HEMOGLOBIN A1c (test code = 38455) 5.3 % Jonatan EasonLIPID [id number] 00:00:00* Test Item Value Reference Range Interpretation Comme nts CHOLESTEROL (test code = 2210) 201 MG/DL TRIGLYCERIDES (test code = 2232) 142 MG/DL HDL CHOLESTEROL (test code = 2220) 65 MG/DL CALC LDL CHOL (test code = 2237) 111 MG/DL RISK RATIO LDL/HDL (test cod e = 2238) 1.71 RATIO Jonatan EasonCOMPREHENSIVE METABOLIC [id number] 00:00:00* Test Item Value Reference Range Interpretation Comme nts GLUCOSE (test code = 2217) 102 MG/DL BUN (test code = 2208) 11 MG/DL CREATININE (test code = 2214) 0.76 MG/DL eGFR (2020 CKD-EPI) (test co de = 38017) 88 ML/MIN/1.73 CALC BUN/CREAT (test code = [...] = 2219) 34 U/L Jonatan EasonTSH, THIRD [id number] 00:00:00* Test Item Value Reference Range Interpretation Comme nts TSH, THIRD GENERATION (test code = 2821) 14.800 UIU/ML Jonatan EasonCBC W/AUTO [id number] 00:00:00* Test Item Value Reference Range Interpretation [...] ABS NUCLEATED RBCS (test cod e = 43335) 0.00 K/UL Jonatan EasonHEMOGLOBIN [id number] 00:00:00* Test Item Value Reference Range Interpretation Comme nts HEMOGLOBIN A1c (test code = 37160) 5.3 % Jonatan EasonLIPID [id number] 00:00:00* Test Item Value Reference Range Interpretation Comme nts CHOLESTEROL (test code = 2210) 201 MG/DL TRIGLYCERIDES (test code = 2232) 142 MG/DL HDL CHOLESTEROL (test code = 2220) 65 MG/DL CALC LDL CHOL (test code = 2237) 111 MG/DL RISK RATIO LDL/HDL (test cod e = 2238) 1.71 RATIO Jonatan EasonCOMPREHENSIVE METABOLIC [id number] 00:00:00* Test Item Value Reference Range Interpretation Comme nts GLUCOSE (test code = 2217) 102 MG/DL BUN (test code = 2208) 11 MG/DL CREATININE (test code = 2214) 0.76 MG/DL eGFR (2020 CKD-EPI) (test co de = 01775) 88 ML/MIN/1.73 CALC BUN/CREAT (test code = [...] (test code = 2219) 34 U/L Jonatan EasonSANYA, THIRD [id number] 00:00:00* Test Item Value Reference Range Interpretation Comme [facility] TSH, THIRD GENERATION (test code = 2821) 14.800 UIU/ML Jonatan EasonCBC W/AUTO [id number] 00:00:00* Test Item Value Reference Range Interpretation [...] ABS NUCLEATED RBCS (test cod e = 70223) 0.00 K/UL Jonatan EasonHEMOGLOBIN [id number] 00:00:00* Test Item Value Reference Range Interpretation Comme nts HEMOGLOBIN A1c (test code = 41247) 5.3 % Jonatan EasonLIPID [id number] 00:00:00* Test Item Value Reference Range Interpretation Comme nts CHOLESTEROL (test code = 2210) 201 MG/DL TRIGLYCERIDES (test code = 2232) 142 MG/DL HDL CHOLESTEROL (test code = 2220) 65 MG/DL CALC LDL CHOL (test code = 2237) 111 MG/DL RISK RATIO LDL/HDL (test cod e = 2238) 1.71 RATIO Jonatan EasonCOMPREHENSIVE METABOLIC [id number] 00:00:00* Test Item Value Reference Range Interpretation Comme nts GLUCOSE (test code = 2217) 102 MG/DL BUN (test code = 2208) 11 MG/DL CREATININE (test code = 2214) 0.76 MG/DL eGFR (2020 CKD-EPI) (test co de = 46114) 88 ML/MIN/1.73 CALC BUN/CREAT (test code = [...] = 2219) 34 U/L Jonatan McnamaraH, THIRD [id number] 00:00:00* Test Item Value Reference Range Interpretation Comme nts TSH, THIRD GENERATION (test code = 2821) 14.800 UIU/ML Jonatan EasonCBC W/AUTO [id number] 00:00:00* Test Item Value Reference Range Interpretation [...] ABS NUCLEATED RBCS (test cod e = 20673) 0.00 K/UL Jonatan EasonHEMOGLOBIN [id number] 00:00:00* Test Item Value Reference Range Interpretation Comme nts HEMOGLOBIN A1c (test code = 12467) 5.3 % Jonatan EasonLIPID [id number] 00:00:00* Test Item Value Reference Range Interpretation Comme nts CHOLESTEROL (test code = 2210) 201 MG/DL TRIGLYCERIDES (test code = 2232) 142 MG/DL HDL CHOLESTEROL (test code = 2220) 65 MG/DL CALC LDL CHOL (test code = 2237) 111 MG/DL RISK RATIO LDL/HDL (test cod e = 2238) 1.71 RATIO Jonatan EasonCOMPREHENSIVE METABOLIC [id number] 00:00:00* Test Item Value Reference Range Interpretation Comme nts GLUCOSE (test code = 2217) 102 MG/DL BUN (test code = 2208) 11 MG/DL CREATININE (test code = 2214) 0.76 MG/DL eGFR (2020 CKD-EPI) (test co de = 93333) 88 ML/MIN/1.73 CALC BUN/CREAT (test code = [...] = 2219) 34 U/L Jonatan EasonTSH, THIRD [id number] 00:00:00* Test Item Value Reference Range Interpretation Comme nts TSH, THIRD GENERATION (test code = 2821) 14.800 UIU/ML Jonatan EasonCBC W/AUTO [id number] 00:00:00* Test Item Value Reference Range Interpretation [...] ABS NUCLEATED RBCS (test cod e = 22794) 0.00 K/UL Jonatan Barber NyeHEMOGLOBIN [id number] 00:00:00* Test Item Value Reference Range Interpretation Comme [facility] HEMOGLOBIN A1c (test code = 22251) 5.3 % Jonatan Barber [facility] (NA, K, CL, CO2, GLUCOSE, BUN, CREATININE, CA)2022-05-18 16:06:20* Test Item Value Reference Range Interpretation Comme [facility] NA (test code = 8058740893) 140 mmol/L 135-145 K (test code = 5380398270) 4.1 mmol/L 3.5-5.0 CL (test code = 0728179898) 105 mmol/L 98-108 CO2 TOTAL (test code = 8554503062) 28 mmol/L 23-31 AGAP (test code = [id number]) 2-16 BUN (test code = 6024380962) 17 mg/dL 7-23 GLUCOSE (test code = 7198292264) 101 mg/dL 70-110 CREATININE (test code = 9159324025) 0.66 mg/dL 0.50-1.04 CALCIUM (test code = 5133550606) 8.6 mg/dL 8.6-10.6 eGFR (test code = 7066135403) mL/min/1.73m2 FRANKO (test code = FRANKO) Association [...] or urine or abnormalities in imaging tests). [facility] (NA, K, CL, CO2, GLUCOSE, BUN, CREATININE, CA)2022-05-18 16:06:20* Test Item Value Reference Range Interpretation Comme nts NA (test code = 7116511968) 140 mmol/L 135-145 K (test code = 7769528819) 4.1 mmol/L 3.5-5.0 CL (test code = 4635674847) 105 mmol/L 98-108 CO2 TOTAL (test code = 6765702882) 28 mmol/L 23-31 AGAP (test code = 5369216925) 2-16 BUN (test code = 3077804925) 17 mg/dL 7-23 GLUCOSE (test code = 1255372952) 101 mg/dL 70-110 CREATININE (test code = 2650669973) 0.66 mg/dL 0.50-1.04 CALCIUM (test code = 9881538936) 8.6 mg/dL 8.6-10.6 eGFR (test code = 4248706543) mL/min/1.73m2 FRANKO (test code = FRANKO) Association [...] or urine or abnormalities in imaging tests). [facility] URINALYSIS W/O SPECIFIC [id number] 15:47:00* Test Item Value Reference Range Interpretation [...] = ?0 ml. Results reported to provider. [facility],FECAL,IMMUNOASSAY [id number] 11:49:52* Test Item Value Reference Range Interpretation Comme nts OCCULT BLD, FECAL (test code = 79570) POSITIVE NEGATIVE A UNLESS OTHER LLANOS INDICATED, ALL TESTING PERFORMED [facility] [address] [place] [address] [employer]: CASSIE PHAM M.D. [place] NUMBER [id number] [facility] [place]. [id number] OCCULT BLD,FECAL,IMMUNOASSAY [id number] 00:00:00* Test Item Value Reference Range Interpretation Comme nts OCCULT BLD, FECAL (test code = 74991) POSITIVE Jonatan F AustinOCCULT BLD,FECAL,IMMUNOASSAY [id number] 00:00:00* Test Item Value Reference Range Interpretation Comme nts OCCULT BLD, FECAL (test code = 35398) POSITIVE Jonatan F AustinOCCULT BLD,FECAL,IMMUNOASSAY [id number] 00:00:00* Test Item Value Reference Range Interpretation Comme nts OCCULT BLD, FECAL (test code = 38865) POSITIVE Jonatan F AustinOCCULT BLD,FECAL,IMMUNOASSAY [id number] 00:00:00* Test Item Value Reference Range Interpretation Comme nts OCCULT BLD, FECAL (test code = 10792) POSITIVE OCCULT BLD,FECAL,IMMUNOASSAY [id number] 00:00:00* Test Item Value Reference Range Interpretation Comme nts OCCULT BLD, FECAL (test code = 05239) POSITIVE Jonatan F AustinOCCULT BLD,FECAL,IMMUNOASSAY [id number] 00:00:00* Test Item Value Reference Range Interpretation Comme nts OCCULT BLD, FECAL (test code = 09016) POSITIVE Jonatan F AustinOCCULT BLD,FECAL,IMMUNOASSAY [id number] 00:00:00* Test Item Value Reference Range Interpretation Comme nts OCCULT BLD, FECAL (test code = 26298) POSITIVE Jonatan F AustinOCCULT BLD,FECAL,IMMUNOASSAY [id number] 00:00:00* Test Item Value Reference Range Interpretation Comme nts OCCULT BLD, FECAL (test code = 56965) POSITIVE Jonatan F AustinOCCULT BLD,FECAL,IMMUNOASSAY [id number] 00:00:00* Test Item Value Reference Range Interpretation Comme nts OCCULT BLD, FECAL (test code = 11811) POSITIVE Jonatan F AustinOCCULT BLD,FECAL,IMMUNOASSAY [id number] 00:00:00* Test Item Value Reference Range Interpretation Comme nts OCCULT BLD, FECAL (test code = 06935) POSITIVE Jonatan F AustinOCCULT BLD,FECAL,IMMUNOASSAY [id number] 00:00:00* Test Item Value Reference Range Interpretation Comme nts OCCULT BLD, FECAL (test code = 65931) POSITIVE OCCULT BLD,FECAL,IMMUNOASSAY [id number] 00:00:00* Test Item Value Reference Range Interpretation Comme nts OCCULT BLD, FECAL (test code = 20925) POSITIVE Jonatan F AustinOCCULT BLD,FECAL,IMMUNOASSAY [id number] 00:00:00* Test Item Value Reference Range Interpretation Comme nts OCCULT BLD, FECAL (test code = 75982) POSITIVE OCCULT BLD,FECAL,IMMUNOASSAY [id number] 00:00:00* Test Item Value Reference Range Interpretation Comme nts OCCULT BLD, FECAL (test code = 86122) POSITIVE Jonatan F AustinCT/NG, NAAT, [id number] 16:24:58* Test Item Value Reference Range Interpretation Comme nts GONORRHEA, NAAT (test code = 08466) NEGATIVE NEGATIVE IMPORTANT NO ULYSSES: SEE ANNOUNCEMENT AT [email or web address] [email or web address] Note: Assay methodology is nucleic acid amplification by nut culler mediated amplification (TMA) utilizing the Aptima Combo 2 Assay. CHLAMYDIA, NAAT (test code = 84808) NEGATIVE NEGATIVE IMPORTANT NO ULYSSES: SEE ANNOUNCEMENT AT [email or web address] heCobasUrineKit Note: Assay methodology is nucleic acid amplification by nut culler mediated amplification (TMA) utilizing the Aptima Combo 2 Assay. UNLESS OTHERWISE INDICATED, ALL TESTING PERFORMED [facility] [place], [facility]. [address] [place] [address] [employer]: CASSIE PHAM M.D. [place] NUMBER [id number] [facility] [place]. [id number] TSH, THIRD [id number] 06:52:37* Test Item Value Reference Range Interpretation Comme nts TSH, THIRD GENERATION (test code = 2821) 1.580 UIU/ML 0.400-4.100 HIV 1/2 4TH GEN, RFLX [id number] 05:54:17* Test Item Value Reference Range Interpretation Comme nts HIV 1/2 4TH GEN, RFLX CONF ( test code = 3514) NON-REACTIVE NON-REACTIVE HEPATITIS PANEL, [id number] 05:54:17* Test Item Value Reference Range Interpretation Comme nts HEPATITIS A IgM (test code = 96092) NON-REACTIVE NON-REACTIVE HEPATITIS B CORE IgM (test code = 4644) NON-REACTIVE NON-REACTIVE HEPATITIS B SURF AG (test code = 2739) NON-REACTIVE NON-REACTIVE HEPATITIS C ANTIBODY (test code = 4675) NON-REACTIVE NON-REACTIVE INTERPRETATION HEPATITIS A: (test code = 2552) (NOTE) Hepatitis A serology shows no evidence of acute hepatitis A. INTERPRETATION HEPATITIS B: (test code = 75067) (NOTE) Hepatitis B serology shows no evidence of acute hepatitis B andno indication of exposure to hepatitis B virus in the previous [place] eight months. INTERPRETATION HEPATITIS C: (test code = 83135) (NOTE) Hepatitis C serology shows no evidence of exposure to hepatitisC virus at this time. It can take up to 12 months after exposure tothe hepatitis C virus for antibodies to become detectable in the blood in certain patients. COMPREHENSIVE METABOLIC [id number] 05:22:56* Test Item Value Reference Range Interpretation Comme nts GLUCOSE (test code = 2217) 104 MG/DL 70-99 H BUN (test code = 2208) 13 MG/DL 8-23 CREATININE (test code = 2214) 0.68 MG/DL 0.60-1.30 eGFR (2020 CKD-EPI) (test code = ) 98 ML/MIN/1.73 >60 CALC BUN/CREAT (test code = 2234) 19 RATIO 6-28 SODIUM (test code = 2230) 141 MEQ/L 133-146 POTASSIUM (test code = 2227) 3.5 MEQ/L 3.5-5.4 CHLORIDE (test code = [...] code = 2218) 38 U/L 5-40 LIPID [id number] 05:22:56* Test Item Value Reference Range Interpretation Comme nts CHOLESTEROL (test code = 2209) 186 MG/DL <200 TRIGLYCERIDES (test code = 2231) 122 MG/DL <150 HDL CHOLESTEROL (test code = 222) 80 MG/DL >39 CALC LDL CHOL (test code = 2236) 84 MG/DL <100 NOTE: CALCULATED LDL IS BASED ON OJ-HERNANDES METHOD WHICHINCLUDES ADJUSTABLE TRIGLYCERIDE:VLDL CHOLESTEROL RATIO.THIS FACTOR VARIES BY MEASURED TRIGLYCERIDE AND NON-HDLCHOLESTEROL CONCENTRATIONS WITH INCREASED CALCULATED LDL SEENIN HIGHER TRIGLYCERIDE OR LOWER NON-HDL SPECIMENS. FOR MOREINFORMATION, SEE CLIENT ANNOUNCEMENT AT [email or web address] RISK RATIO LDL/HDL (test code = 2238) 1.05 RATIO <3.22 CBC W/AUTO DIFF WITH [id number] 04:33:42* Test Item Value Reference Range Interpretation [...] 0.00-0.10 ABS NUCLEATED RBCS (test code = 04466) 0.00 K/UL 0.00-0.11 CBC W/AUTO [id number] 00:00:00* Test Item Value Reference Range Interpretation [...] ABS NUCLEATED RBCS (test cod e = 96647) 0.00 K/UL Jonatan F AustinLIPID [id number] 00:00:00* Test Item Value Reference Range Interpretation Comme nts CHOLESTEROL (test code = 2210) 186 MG/DL TRIGLYCERIDES (test code = 2232) 122 MG/DL HDL CHOLESTEROL (test code = 2220) 80 MG/DL CALC LDL CHOL (test code = 2237) 84 MG/DL RISK RATIO LDL/HDL (test cod e = 2238) 1.05 RATIO LIPID [id number] 00:00:00* Test Item Value Reference Range Interpretation Comme nts CHOLESTEROL (test code = 2210) 186 MG/DL TRIGLYCERIDES (test code = 2232) 122 MG/DL HDL CHOLESTEROL (test code = 2220) 80 MG/DL CALC LDL CHOL (test code = 2237) 84 MG/DL RISK RATIO LDL/HDL (test cod e = 2238) 1.05 RATIO Jonatan McnamaraH, THIRD [id number] 00:00:00* Test Item Value Reference Range Interpretation Comme nts TSH, THIRD GENERATION (test code = 2821) 1.580 UIU/ML TSH, THIRD [id number] 00:00:00* Test Item Value Reference Range Interpretation Comme nts TSH, THIRD GENERATION (test code = 2821) 1.580 UIU/ML Jonatan EasonHIV 1/2 4TH GEN, RFLX [id number] 00:00:00* Test Item Value Reference Range Interpretation Comme nts HIV 1/2 4TH GEN, RFLX CONF ( test code = 3514) NON-REACTIVE ACUTE HEPATITIS [id number] 00:00:00* Test Item Value Reference Range Interpretation Comme nts HEPATITIS A IgM (test code = 64952) NON-REACTIVE HEPATITIS B CORE IgM (test c ode = 4644) NON-REACTIVE HEPATITIS B SURF AG (test co de = 2739) NON-REACTIVE HEPATITIS C ANTIBODY (test c ode = 4675) NON-REACTIVE INTERPRETATION HEPATITIS A: (test code = 2552) (NOTE) INTERPRETATION HEPATITIS B: (test code = 94382) (NOTE) INTERPRETATION HEPATITIS C: (test code = 11826) (NOTE) CT/NG, TMA, [id number] 00:00:00* Test Item Value Reference Range Interpretation Comme nts GONORRHEA, NAAT (test code = 64145) NEGATIVE CHLAMYDIA, NAAT (test code = 98233) NEGATIVE HIV 1/2 4TH GEN, RFLX [id number] 00:00:00* Test Item Value Reference Range Interpretation Comme nts HIV 1/2 4TH GEN, RFLX CONF ( test code = 3514) NON-REACTIVE Jonatan EasonACUTE HEPATITIS [id number] 00:00:00* Test Item Value Reference Range Interpretation Comme nts HEPATITIS A IgM (test code = 94087) NON-REACTIVE HEPATITIS B CORE IgM (test c ode = 4644) NON-REACTIVE HEPATITIS B SURF AG (test co de = 2739) NON-REACTIVE HEPATITIS C ANTIBODY (test c ode = 4675) NON-REACTIVE INTERPRETATION HEPATITIS A: (test code = 2552) (NOTE) INTERPRETATION HEPATITIS B: (test code = 06391) (NOTE) INTERPRETATION HEPATITIS C: (test code = 66301) (NOTE) Jonatan EasonCT/NG, TMA, [id number] 00:00:00* Test Item Value Reference Range Interpretation Comme nts GONORRHEA, NAAT (test code = 65771) NEGATIVE CHLAMYDIA, NAAT (test code = 46810) NEGATIVE Jonatan EasonCOMPREHENSIVE METABOLIC [id number] 00:00:00* Test Item Value Reference Range Interpretation Comme nts GLUCOSE (test code = 2217) 104 MG/DL BUN (test code = 2208) 13 MG/DL CREATININE (test code = 2214) 0.68 MG/DL eGFR (2020 CKD-EPI) (test co de = 85400) 98 ML/MIN/1.73 CALC BUN/CREAT (test code = [...] = 2219) 38 U/L Jonatan EasonCBC W/AUTO [id number] 00:00:00* Test Item Value Reference Range Interpretation [...] ABS NUCLEATED RBCS (test cod e = 52854) 0.00 K/UL Jonatan EasonLIPID [id number] 00:00:00* Test Item Value Reference Range Interpretation Comme nts CHOLESTEROL (test code = 2210) 186 MG/DL TRIGLYCERIDES (test code = 2232) 122 MG/DL HDL CHOLESTEROL (test code = 2220) 80 MG/DL CALC LDL CHOL (test code = 2237) 84 MG/DL RISK RATIO LDL/HDL (test cod e = 2238) 1.05 RATIO Jonatan EasonTSH, THIRD [id number] 00:00:00* Test Item Value Reference Range Interpretation Comme nts TSH, THIRD GENERATION (test code = 2821) 1.580 UIU/ML Jonatan EasonHIV 1/2 4TH GEN, RFLX [id number] 00:00:00* Test Item Value Reference Range Interpretation Comme nts HIV 1/2 4TH GEN, RFLX CONF ( test code = 3514) NON-REACTIVE Jonatan EasonACUTE HEPATITIS [id number] 00:00:00* Test Item Value Reference Range Interpretation Comme nts HEPATITIS A IgM (test code = 71928) NON-REACTIVE HEPATITIS B CORE IgM (test c ode = 4636) NON-REACTIVE HEPATITIS B SURF AG (test co de = 4007) NON-REACTIVE HEPATITIS C ANTIBODY (test c ode = 5720) NON-REACTIVE INTERPRETATION HEPATITIS A: (test code = 2552) (NOTE) INTERPRETATION HEPATITIS B: (test code = 30257) (NOTE) INTERPRETATION HEPATITIS C: (test code = 17020) (NOTE) Jonatan EasonCT/NG, TMA, [id number] 00:00:00* Test Item Value Reference Range Interpretation Comme nts GONORRHEA, NAAT (test code = 14400) NEGATIVE CHLAMYDIA, NAAT (test code = 10997) NEGATIVE Jonatan EasonCOMPREHENSIVE METABOLIC [id number] 00:00:00* Test Item Value Reference Range Interpretation Comme nts GLUCOSE (test code = 2217) 104 MG/DL BUN (test code = 2208) 13 MG/DL CREATININE (test code = 2214) 0.68 MG/DL eGFR (2020 CKD-EPI) (test co de = 37316) 98 ML/MIN/1.73 CALC BUN/CREAT (test code = [...] = 2219) 38 U/L Jonatan EasonCBC W/AUTO [id number] 00:00:00* Test Item Value Reference Range Interpretation [...] ABS NUCLEATED RBCS (test cod e = 80158) 0.00 K/UL Jonatan EasonLIPID [id number] 00:00:00* Test Item Value Reference Range Interpretation Comme nts CHOLESTEROL (test code = 2210) 186 MG/DL TRIGLYCERIDES (test code = 2232) 122 MG/DL HDL CHOLESTEROL (test code = 2220) 80 MG/DL CALC LDL CHOL (test code = 2237) 84 MG/DL RISK RATIO LDL/HDL (test cod e = 2238) 1.05 RATIO Jonatan EasonTSH, THIRD [id number] 00:00:00* Test Item Value Reference Range Interpretation Comme nts TSH, THIRD GENERATION (test code = 2821) 1.580 UIU/ML Jonatan EasonHIV 1/2 4TH GEN, RFLX [id number] 00:00:00* Test Item Value Reference Range Interpretation Comme nts HIV 1/2 4TH GEN, RFLX CONF ( test code = 3514) NON-REACTIVE Jonatan EasonACUTE HEPATITIS [id number] 00:00:00* Test Item Value Reference Range Interpretation Comme nts HEPATITIS A IgM (test code = 52043) NON-REACTIVE HEPATITIS B CORE IgM (test c ode = 4689) NON-REACTIVE HEPATITIS B SURF AG (test co de = 3349) NON-REACTIVE HEPATITIS C ANTIBODY (test c ode = 4660) NON-REACTIVE INTERPRETATION HEPATITIS A: (test code = 2552) (NOTE) INTERPRETATION HEPATITIS B: (test code = 85390) (NOTE) INTERPRETATION HEPATITIS C: (test code = 68166) (NOTE) Jonatan Barber LandyCT/NG, TMA, [id number] 00:00:00* Test Item Value Reference Range Interpretation Comme nts GONORRHEA, NAAT (test code = 65935) NEGATIVE CHLAMYDIA, NAAT (test code = 41604) NEGATIVE Jonatan EasonCOMPREHENSIVE METABOLIC [id number] 00:00:00* Test Item Value Reference Range Interpretation Comme nts GLUCOSE (test code = 2217) 104 MG/DL BUN (test code = 2208) 13 MG/DL CREATININE (test code = 2214) 0.68 MG/DL eGFR (2020 CKD-EPI) (test co de = 88083) 98 ML/MIN/1.73 CALC BUN/CREAT (test code = [...] code = 2219) 38 U/L Jonatan Barber LandyCBC W/AUTO [id number] 00:00:00* Test Item Value Reference Range Interpretation [...] ABS NUCLEATED RBCS (test cod e = 07324) 0.00 K/UL Jonatan EasonCOMPREHENSIVE METABOLIC [id number] 00:00:00* Test Item Value Reference Range Interpretation Comme nts GLUCOSE (test code = 2217) 104 MG/DL BUN (test code = 2208) 13 MG/DL CREATININE (test code = 2214) 0.68 MG/DL eGFR (2020 CKD-EPI) (test co de = 68736) 98 ML/MIN/1.73 CALC BUN/CREAT (test code = [...] ALT (test code = 2219) 38 U/L LIPID [id number] 00:00:00* Test Item Value Reference Range Interpretation Comme nts CHOLESTEROL (test code = 2210) 186 MG/DL TRIGLYCERIDES (test code = 2232) 122 MG/DL HDL CHOLESTEROL (test code = 2220) 80 MG/DL CALC LDL CHOL (test code = 2237) 84 MG/DL RISK RATIO LDL/HDL (test cod e = 2238) 1.05 RATIO Jonatan EasonTSH, THIRD [id number] 00:00:00* Test Item Value Reference Range Interpretation Comme nts TSH, THIRD GENERATION (test code = 2821) 1.580 UIU/ML Jonatan EasonHIV 1/2 4TH GEN, RFLX [id number] 00:00:00* Test Item Value Reference Range Interpretation Comme nts HIV 1/2 4TH GEN, RFLX CONF ( test code = 3514) NON-REACTIVE Jonatan EasonACUTE HEPATITIS [id number] 00:00:00* Test Item Value Reference Range Interpretation Comme nts HEPATITIS A IgM (test code = 62502) NON-REACTIVE HEPATITIS B CORE IgM (test c ode = 4644) NON-REACTIVE HEPATITIS B SURF AG (test co de = 2739) NON-REACTIVE HEPATITIS C ANTIBODY (test c ode = 4641) NON-REACTIVE INTERPRETATION HEPATITIS A: (test code = 2552) (NOTE) INTERPRETATION HEPATITIS B: (test code = 58648) (NOTE) INTERPRETATION HEPATITIS C: (test code = 35459) (NOTE) Jonatan EasonCT/NG, TMA, [id number] 00:00:00* Test Item Value Reference Range Interpretation Comme nts GONORRHEA, NAAT (test code = 22605) NEGATIVE CHLAMYDIA, NAAT (test code = 38380) NEGATIVE Jonatan EasonCOMPREHENSIVE METABOLIC [id number] 00:00:00* Test Item Value Reference Range Interpretation Comme nts GLUCOSE (test code = 2217) 104 MG/DL BUN (test code = 2208) 13 MG/DL CREATININE (test code = 2214) 0.68 MG/DL eGFR (2020 CKD-EPI) (test co de = 34192) 98 ML/MIN/1.73 CALC BUN/CREAT (test code = [...] (test code = 2219) 38 U/L Jonatan EasonCB W/AUTO [id number] 00:00:00* Test Item Value Reference Range Interpretation [...] ABS NUCLEATED RBCS (test cod e = 41246) 0.00 K/UL LIPID [id number] 00:00:00* Test Item Value Reference Range Interpretation Comme nts CHOLESTEROL (test code = 2210) 186 MG/DL TRIGLYCERIDES (test code = 2232) 122 MG/DL HDL CHOLESTEROL (test code = 2220) 80 MG/DL CALC LDL CHOL (test code = 2237) 84 MG/DL RISK RATIO LDL/HDL (test cod e = 2238) 1.05 RATIO COMPREHENSIVE METABOLIC [id number] 00:00:00* Test Item Value Reference Range Interpretation Comme nts GLUCOSE (test code = 2217) 104 MG/DL BUN (test code = 2208) 13 MG/DL CREATININE (test code = 2214) 0.68 MG/DL eGFR (2020 CKD-EPI) (test co de = 49516) 98 ML/MIN/1.73 CALC BUN/CREAT (test code = [...] (test code = 2219) 38 U/L Jonatan Granado THIRD [id number] 00:00:00* Test Item Value Reference Range Interpretation Comme nts TSH, THIRD GENERATION (test code = 2821) 1.580 UIU/ML HIV 1/2 4TH GEN, RFLX [id number] 00:00:00* Test Item Value Reference Range Interpretation Comme nts HIV 1/2 4TH GEN, RFLX CONF ( test code = 3514) NON-REACTIVE CBC W/AUTO [id number] 00:00:00* Test Item Value Reference Range Interpretation [...] ABS NUCLEATED RBCS (test cod e = 47190) 0.00 K/UL Jonatan Quinteros HEPATITIS [id number] 00:00:00* Test Item Value Reference Range Interpretation Comme nts HEPATITIS A IgM (test code = 04045) NON-REACTIVE HEPATITIS B CORE IgM (test c ode = 4644) NON-REACTIVE HEPATITIS B SURF AG (test co de = 7819) NON-REACTIVE HEPATITIS C ANTIBODY (test c ode = 4662) NON-REACTIVE INTERPRETATION HEPATITIS A: (test code = 2552) (NOTE) INTERPRETATION HEPATITIS B: (test code = 25224) (NOTE) INTERPRETATION HEPATITIS C: (test code = 25743) (NOTE) CT/NG, TMA, [id number] 00:00:00* Test Item Value Reference Range Interpretation Comme nts GONORRHEA, NAAT (test code = 36810) NEGATIVE CHLAMYDIA, NAAT (test code = 48411) NEGATIVE COMPREHENSIVE METABOLIC [id number] 00:00:00* Test Item Value Reference Range Interpretation Comme nts GLUCOSE (test code = 2217) 104 MG/DL BUN (test code = 2208) 13 MG/DL CREATININE (test code = 2214) 0.68 MG/DL eGFR (2020 CKD-EPI) (test co de = 03994) 98 ML/MIN/1.73 CALC BUN/CREAT (test code = [...] (test code = 2219) 38 U/L Jonatan F AustinLIPID [id number] 00:00:00* Test Item Value Reference Range Interpretation Comme nts CHOLESTEROL (test code = 2210) 186 MG/DL TRIGLYCERIDES (test code = 2232) 122 MG/DL HDL CHOLESTEROL (test code = 2220) 80 MG/DL CALC LDL CHOL (test code = 2237) 84 MG/DL RISK RATIO LDL/HDL (test cod e = 2238) 1.05 RATIO Jonatan EasonCBC W/AUTO [id number] 00:00:00* Test Item Value Reference Range Interpretation [...] ABS NUCLEATED RBCS (test cod e = 57722) 0.00 K/UL Jonatan EasonTSH, THIRD [id number] 00:00:00* Test Item Value Reference Range Interpretation Comme nts TSH, THIRD GENERATION (test code = 2821) 1.580 UIU/ML Jonatan EasonHIV 1/2 4TH GEN, RFLX [id number] 00:00:00* Test Item Value Reference Range Interpretation Comme nts HIV 1/2 4TH GEN, RFLX CONF ( test code = 3514) NON-REACTIVE Jonatan EasonACUTE HEPATITIS [id number] 00:00:00* Test Item Value Reference Range Interpretation Comme nts HEPATITIS A IgM (test code = 00621) NON-REACTIVE HEPATITIS B CORE IgM (test c ode = 4644) NON-REACTIVE HEPATITIS B SURF AG (test co de = 2739) NON-REACTIVE HEPATITIS C ANTIBODY (test c ode = 4675) NON-REACTIVE INTERPRETATION HEPATITIS A: (test code = 2552) (NOTE) INTERPRETATION HEPATITIS B: (test code = 21398) (NOTE) INTERPRETATION HEPATITIS C: (test code = 43803) (NOTE) Jonatan Barber AustinCT/NG, TMA, [id number] 00:00:00* Test Item Value Reference Range Interpretation Comme nts GONORRHEA, NAAT (test code = 27808) NEGATIVE CHLAMYDIA, NAAT (test code = 34808) NEGATIVE Jonatan EasonLIPID [id number] 00:00:00* Test Item Value Reference Range Interpretation Comme nts CHOLESTEROL (test code = 2210) 186 MG/DL TRIGLYCERIDES (test code = 2232) 122 MG/DL HDL CHOLESTEROL (test code = 2220) 80 MG/DL CALC LDL CHOL (test code = 2237) 84 MG/DL RISK RATIO LDL/HDL (test cod e = 2238) 1.05 RATIO Jonatan EasonTSH, THIRD [id number] 00:00:00* Test Item Value Reference Range Interpretation Comme nts TSH, THIRD GENERATION (test code = 2821) 1.580 UIU/ML Jonatan EasonHIV 1/2 4TH GEN, RFLX [id number] 00:00:00* Test Item Value Reference Range Interpretation Comme nts HIV 1/2 4TH GEN, RFLX CONF ( test code = 3514) NON-REACTIVE Jonatan EasonACUTE HEPATITIS [id number] 00:00:00* Test Item Value Reference Range Interpretation Comme nts HEPATITIS A IgM (test code = 58222) NON-REACTIVE HEPATITIS B CORE IgM (test c ode = 4644) NON-REACTIVE HEPATITIS B SURF AG (test co de = 2739) NON-REACTIVE HEPATITIS C ANTIBODY (test c ode = 4675) NON-REACTIVE INTERPRETATION HEPATITIS A: (test code = 2552) (NOTE) INTERPRETATION HEPATITIS B: (test code = 19271) (NOTE) INTERPRETATION HEPATITIS C: (test code = 02679) (NOTE) Jonatan Barber AustinCT/NG, TMA, [id number] 00:00:00* Test Item Value Reference Range Interpretation Comme nts GONORRHEA, NAAT (test code = 02829) NEGATIVE CHLAMYDIA, NAAT (test code = 42318) NEGATIVE Jonatan EasonCOMPREHENSIVE METABOLIC [id number] 00:00:00* Test Item Value Reference Range Interpretation Comme nts GLUCOSE (test code = 2217) 104 MG/DL BUN (test code = 2208) 13 MG/DL CREATININE (test code = 2214) 0.68 MG/DL eGFR (2020 CKD-EPI) (test co de = 71893) 98 ML/MIN/1.73 CALC BUN/CREAT (test code = [...] = 2219) 38 U/L Jonatan EasonCBC W/AUTO [id number] 00:00:00* Test Item Value Reference Range Interpretation [...] ABS NUCLEATED RBCS (test cod e = 23888) 0.00 K/UL Jonatan EasonLIPID [id number] 00:00:00* Test Item Value Reference Range Interpretation Comme nts CHOLESTEROL (test code = 2210) 186 MG/DL TRIGLYCERIDES (test code = 2232) 122 MG/DL HDL CHOLESTEROL (test code = 2220) 80 MG/DL CALC LDL CHOL (test code = 2237) 84 MG/DL RISK RATIO LDL/HDL (test cod e = 2238) 1.05 RATIO Jonatan EasonTSH, THIRD [id number] 00:00:00* Test Item Value Reference Range Interpretation Comme nts TSH, THIRD GENERATION (test code = 2821) 1.580 UIU/ML Jonatan EasonHIV 1/2 4TH GEN, RFLX [id number] 00:00:00* Test Item Value Reference Range Interpretation Comme nts HIV 1/2 4TH GEN, RFLX CONF ( test code = 3514) NON-REACTIVE Jonatan EasonACUTE HEPATITIS [id number] 00:00:00* Test Item Value Reference Range Interpretation Comme nts HEPATITIS A IgM (test code = 31567) NON-REACTIVE HEPATITIS B CORE IgM (test c ode = 4644) NON-REACTIVE HEPATITIS B SURF AG (test co de = 2739) NON-REACTIVE HEPATITIS C ANTIBODY (test c ode = 46) NON-REACTIVE INTERPRETATION HEPATITIS A: (test code = 2552) (NOTE) INTERPRETATION HEPATITIS B: (test code = 72006) (NOTE) INTERPRETATION HEPATITIS C: (test code = 63865) (NOTE) Jonatan EasonCT/NG, TMA, [id number] 00:00:00* Test Item Value Reference Range Interpretation Comme nts GONORRHEA, NAAT (test code = 11980) NEGATIVE CHLAMYDIA, NAAT (test code = 21485) NEGATIVE Jonatan EasonCBC W/AUTO [id number] 00:00:00* Test Item Value Reference Range Interpretation [...] ABS NUCLEATED RBCS (test cod e = 91736) 0.00 K/UL Jonatan EasonLIPID [id number] 00:00:00* Test Item Value Reference Range Interpretation Comme nts CHOLESTEROL (test code = 2210) 186 MG/DL TRIGLYCERIDES (test code = 2232) 122 MG/DL HDL CHOLESTEROL (test code = 2220) 80 MG/DL CALC LDL CHOL (test code = 2237) 84 MG/DL RISK RATIO LDL/HDL (test cod e = 2238) 1.05 RATIO Jonatan EasonTSH, THIRD [id number] 00:00:00* Test Item Value Reference Range Interpretation Comme alber TSH, THIRD GENERATION (test code = 2821) 1.580 UIU/ML Jonatan EasonHIV 1/2 4TH GEN, RFLX [id number] 00:00:00* Test Item Value Reference Range Interpretation Comme nts HIV 1/2 4TH GEN, RFLX CONF ( test code = 3514) NON-REACTIVE Jonatan EasonACUTE HEPATITIS [id number] 00:00:00* Test Item Value Reference Range Interpretation Comme nts HEPATITIS A IgM (test code = 97732) NON-REACTIVE HEPATITIS B CORE IgM (test c ode = 4644) NON-REACTIVE HEPATITIS B SURF AG (test co de = 2739) NON-REACTIVE HEPATITIS C ANTIBODY (test c ode = 4675) NON-REACTIVE INTERPRETATION HEPATITIS A: (test code = 2552) (NOTE) INTERPRETATION HEPATITIS B: (test code = 56713) (NOTE) INTERPRETATION HEPATITIS C: (test code = 53828) (NOTE) Jonatan EasonCT/NG, TMA, [id number] 00:00:00* Test Item Value Reference Range Interpretation Comme nts GONORRHEA, NAAT (test code = 05796) NEGATIVE CHLAMYDIA, NAAT (test code = 79699) NEGATIVE Jonatan EasonCOMPREHENSIVE METABOLIC [id number] 00:00:00* Test Item Value Reference Range Interpretation Comme nts GLUCOSE (test code = 2217) 104 MG/DL BUN (test code = 2208) 13 MG/DL CREATININE (test code = 2214) 0.68 MG/DL eGFR (2020 CKD-EPI) (test co de = 10273) 98 ML/MIN/1.73 CALC BUN/CREAT (test code = [...] = 2219) 38 U/L Jonatan EasonCBC W/AUTO [id number] 00:00:00* Test Item Value Reference Range Interpretation [...] ABS NUCLEATED RBCS (test cod e = 49898) 0.00 K/UL Jonatan EasonLIPID [id number] 00:00:00* Test Item Value Reference Range Interpretation Comme nts CHOLESTEROL (test code = 2210) 186 MG/DL TRIGLYCERIDES (test code = 2232) 122 MG/DL HDL CHOLESTEROL (test code = 2220) 80 MG/DL CALC LDL CHOL (test code = 2237) 84 MG/DL RISK RATIO LDL/HDL (test cod e = 2238) 1.05 RATIO Jonatan Granado, THIRD [id number] 00:00:00* Test Item Value Reference Range Interpretation Comme nts TSH, THIRD GENERATION (test code = 2821) 1.580 UIU/ML Jonatan EasonHIV 1/2 4TH GEN, RFLX [id number] 00:00:00* Test Item Value Reference Range Interpretation Comme nts HIV 1/2 4TH GEN, RFLX CONF ( test code = 3514) NON-REACTIVE Jonatan EasonACUTE HEPATITIS [id number] 00:00:00* Test Item Value Reference Range Interpretation Comme nts HEPATITIS A IgM (test code = 48992) NON-REACTIVE HEPATITIS B CORE IgM (test c ode = 4644) NON-REACTIVE HEPATITIS B SURF AG (test co de = 2739) NON-REACTIVE HEPATITIS C ANTIBODY (test c ode = 4699) NON-REACTIVE INTERPRETATION HEPATITIS A: (test code = 2552) (NOTE) INTERPRETATION HEPATITIS B: (test code = 61694) (NOTE) INTERPRETATION HEPATITIS C: (test code = 84479) (NOTE) Jonatan EasonCT/NG, TMA, [id number] 00:00:00* Test Item Value Reference Range Interpretation Comme nts GONORRHEA, NAAT (test code = 38483) NEGATIVE CHLAMYDIA, NAAT (test code = 64926) NEGATIVE Jonatan EasonCOMPREHENSIVE METABOLIC [id number] 00:00:00* Test Item Value Reference Range Interpretation Comme nts GLUCOSE (test code = 2217) 104 MG/DL BUN (test code = 2208) 13 MG/DL CREATININE (test code = 2214) 0.68 MG/DL eGFR (2020 CKD-EPI) (test co de = 14782) 98 ML/MIN/1.73 CALC BUN/CREAT (test code = [...] = 2219) 38 U/L Jonatan EasonCBC W/AUTO [id number] 00:00:00* Test Item Value Reference Range Interpretation [...] ABS NUCLEATED RBCS (test cod e = 09894) 0.00 K/UL Jonatan EasonCOMPREHENSIVE METABOLIC [id number] 00:00:00* Test Item Value Reference Range Interpretation Comme nts GLUCOSE (test code = 2217) 104 MG/DL BUN (test code = 2208) 13 MG/DL CREATININE (test code = 2214) 0.68 MG/DL eGFR (2020 CKD-EPI) (test co de = 90639) 98 ML/MIN/1.73 CALC BUN/CREAT (test code = [...] ALT (test code = 2219) 38 U/L LIPID [id number] 00:00:00* Test Item Value Reference Range Interpretation Comme nts CHOLESTEROL (test code = 2210) 186 MG/DL TRIGLYCERIDES (test code = 2232) 122 MG/DL HDL CHOLESTEROL (test code = 2220) 80 MG/DL CALC LDL CHOL (test code = 2237) 84 MG/DL RISK RATIO LDL/HDL (test cod e = 2238) 1.05 RATIO Jonatan EasonTSH, THIRD [id number] 00:00:00* Test Item Value Reference Range Interpretation Comme nts TSH, THIRD GENERATION (test code = 2821) 1.580 UIU/ML Jonatan EasonHIV 1/2 4TH GEN, RFLX [id number] 00:00:00* Test Item Value Reference Range Interpretation Comme nts HIV 1/2 4TH GEN, RFLX CONF ( test code = 3514) NON-REACTIVE Jonatan EasonACUTE HEPATITIS [id number] 00:00:00* Test Item Value Reference Range Interpretation Comme nts HEPATITIS A IgM (test code = 74052) NON-REACTIVE HEPATITIS B CORE IgM (test c ode = 4644) NON-REACTIVE HEPATITIS B SURF AG (test co de = 3879) NON-REACTIVE HEPATITIS C ANTIBODY (test c ode = 4649) NON-REACTIVE INTERPRETATION HEPATITIS A: (test code = 2552) (NOTE) INTERPRETATION HEPATITIS B: (test code = 61994) (NOTE) INTERPRETATION HEPATITIS C: (test code = 47213) (NOTE) Jonatan Salazar/NG, TMA, [id number] 00:00:00* Test Item Value Reference Range Interpretation Comme nts GONORRHEA, NAAT (test code = 21332) NEGATIVE CHLAMYDIA, NAAT (test code = 88905) NEGATIVE Jonatanjake EasonCBC W/AUTO [id number] 00:00:00* Test Item Value Reference Range Interpretation [...] ABS NUCLEATED RBCS (test cod e = 38332) 0.00 K/UL COMPREHENSIVE METABOLIC [id number] 00:00:00* Test Item Value Reference Range Interpretation Comme nts GLUCOSE (test code = 2217) 104 MG/DL BUN (test code = 2208) 13 MG/DL CREATININE (test code = 2214) 0.68 MG/DL eGFR (2020 CKD-EPI) (test co de = 80762) 98 ML/MIN/1.73 CALC BUN/CREAT (test code = [...] (test code = 2219) 38 U/L [facility] [id number] 00:00:00* Test Item Value Reference Range Interpretation [...] ABS NUCLEATED RBCS (test cod e = 23284) 0.00 K/UL Jonatan EasonLIPID [id number] 00:00:00* Test Item Value Reference Range Interpretation Comme nts CHOLESTEROL (test code = 2210) 186 MG/DL TRIGLYCERIDES (test code = 2232) 122 MG/DL HDL CHOLESTEROL (test code = 2220) 80 MG/DL CALC LDL CHOL (test code = 2237) 84 MG/DL RISK RATIO LDL/HDL (test cod e = 2238) 1.05 RATIO TSH, THIRD [id number] 00:00:00* Test Item Value Reference Range Interpretation Comme nts TSH, THIRD GENERATION (test code = 2821) 1.580 UIU/ML LIPID [id number] 00:00:00* Test Item Value Reference Range Interpretation Comme nts CHOLESTEROL (test code = 2210) 186 MG/DL TRIGLYCERIDES (test code = 2232) 122 MG/DL HDL CHOLESTEROL (test code = 2220) 80 MG/DL CALC LDL CHOL (test code = 2237) 84 MG/DL RISK RATIO LDL/HDL (test cod e = 2238) 1.05 RATIO Jonatan EasonHIV 1/2 4TH GEN, RFLX [id number] 00:00:00* Test Item Value Reference Range Interpretation Comme nts HIV 1/2 4TH GEN, RFLX CONF ( test code = 3514) NON-REACTIVE ACUTE HEPATITIS [id number] 00:00:00* Test Item Value Reference Range Interpretation Comme nts HEPATITIS A IgM (test code = 63168) NON-REACTIVE HEPATITIS B CORE IgM (test c ode = 4629) NON-REACTIVE HEPATITIS B SURF AG (test co de = 2739) NON-REACTIVE HEPATITIS C ANTIBODY (test c ode = 4675) NON-REACTIVE INTERPRETATION HEPATITIS A: (test code = 2552) (NOTE) INTERPRETATION HEPATITIS B: (test code = 36180) (NOTE) INTERPRETATION HEPATITIS C: (test code = 88627) (NOTE) CT/NG, TMA, [id number] 00:00:00* Test Item Value Reference Range Interpretation Comme nts GONORRHEA, NAAT (test code = 38475) NEGATIVE CHLAMYDIA, NAAT (test code = 42218) NEGATIVE TSH, THIRD [id number] 00:00:00* Test Item Value Reference Range Interpretation Comme nts TSH, THIRD GENERATION (test code = 2821) 1.580 UIU/ML Jonatan EasonHIV 1/2 4TH GEN, RFLX [id number] 00:00:00* Test Item Value Reference Range Interpretation Comme nts HIV 1/2 4TH GEN, RFLX CONF ( test code = 3514) NON-REACTIVE Jonatan EasonACUTE HEPATITIS [id number] 00:00:00* Test Item Value Reference Range Interpretation Comme nts HEPATITIS A IgM (test code = 55486) NON-REACTIVE HEPATITIS B CORE IgM (test c ode = 4644) NON-REACTIVE HEPATITIS B SURF AG (test co de = 2739) NON-REACTIVE HEPATITIS C ANTIBODY (test c ode = 4675) NON-REACTIVE INTERPRETATION HEPATITIS A: (test code = 2552) (NOTE) INTERPRETATION HEPATITIS B: (test code = 97002) (NOTE) INTERPRETATION HEPATITIS C: (test code = 84802) (NOTE) Jonatan EasonCOMPREHENSIVE METABOLIC [id number] 00:00:00* Test Item Value Reference Range Interpretation Comme nts GLUCOSE (test code = 2217) 104 MG/DL BUN (test code = 2208) 13 MG/DL CREATININE (test code = 2214) 0.68 MG/DL eGFR (2020 CKD-EPI) (test co de = 90117) 98 ML/MIN/1.73 CALC BUN/CREAT (test code = [...] ALT (test code = 2219) 38 U/L CT/NG, TMA, [id number] 00:00:00* Test Item Value Reference Range Interpretation Comme nts GONORRHEA, NAAT (test code = 25867) NEGATIVE CHLAMYDIA, NAAT (test code = 26501) NEGATIVE Jonatan EasonCOMPREHENSIVE METABOLIC [id number] 00:00:00* Test Item Value Reference Range Interpretation Comme nts GLUCOSE (test code = 2217) 104 MG/DL BUN (test code = 2208) 13 MG/DL CREATININE (test code = 2214) 0.68 MG/DL eGFR (2020 CKD-EPI) (test co de = 89776) 98 ML/MIN/1.73 CALC BUN/CREAT (test code = [...] = 2219) 38 U/L Jonatan EasonCBC W/AUTO [id number] 00:00:00* Test Item Value Reference Range Interpretation [...] ABS NUCLEATED RBCS (test cod e = 96080) 0.00 K/UL TSH, THIRD [id number] 06:37:18* Test Item Value Reference Range Interpretation Comme nts TSH, THIRD GENERATION (test code = 2821) 0.328 UIU/ML 0.400-4.100 L UNLESS OTHERWISE INDICATED, ALL TESTING PERFORMED [facility] [address] [place] [address] [employer]: CASSIE PHAM M.D. CLIA NUMBER [id number] [facility] [place]. [id number] CBC W/AUTO DIFF WITH [id number] 06:14:20* Test Item Value Reference Range Interpretation [...] = 1065) 0.0 /100 WBC'S See_Comment [Automated [employer]] The system which generated this result [...] 0.00-0.10 ABS NUCLEATED RBCS (test code = 34149) 0.00 K/UL 0.00-0.11 LIPID [id number] 06:03:11* Test Item Value Reference Range Interpretation [...] SPECIMENS. FOR MOREINFORMATION, SEE CLIENT ANNOUNCEMENT AT [email or web address] RISK RATIO LDL/HDL (test code = 2238) 0.82 RATIO <3.22 LIPID [id number] 00:00:00* Test Item Value Reference Range Interpretation Comme nts CHOLESTEROL (test code = 2210) 154 MG/DL TRIGLYCERIDES (test code = 2232) 175 MG/DL HDL CHOLESTEROL (test code = 2220) 71 MG/DL CALC LDL CHOL (test code = 2237) 58 MG/DL RISK RATIO LDL/HDL (test cod e = 2238) 0.82 RATIO Jonatan [id number] 00:00:00* Test Item Value Reference Range Interpretation Comme nts TSH, THIRD GENERATION (test code = 2821) 0.328 UIU/ML [id number] 00:00:00* Test Item Value Reference Range Interpretation Comme nts TSH, THIRD GENERATION (test code = 2821) 0.328 UIU/ML Jonatan EasonCBC W/AUTO [id number] 00:00:00* Test Item Value Reference Range Interpretation [...] ABS NUCLEATED RBCS (test cod e = 30570) 0.00 K/UL CBC W/AUTO [id number] 00:00:00* Test Item Value Reference Range Interpretation [...] ABS NUCLEATED RBCS (test cod e = 32547) 0.00 K/UL Jonatan EasonLIPID [id number] 00:00:00* Test Item Value Reference Range Interpretation Comme nts CHOLESTEROL (test code = 2210) 154 MG/DL TRIGLYCERIDES (test code = 2232) 175 MG/DL HDL CHOLESTEROL (test code = 2220) 71 MG/DL CALC LDL CHOL (test code = 2237) 58 MG/DL RISK RATIO LDL/HDL (test cod e = 2238) 0.82 RATIO [id number] 00:00:00* Test Item Value Reference Range Interpretation Comme nts TSH, THIRD GENERATION (test code = 2821) 0.328 UIU/ML LIPID [id number] 00:00:00* Test Item Value Reference Range Interpretation Comme nts CHOLESTEROL (test code = 2210) 154 MG/DL TRIGLYCERIDES (test code = 2232) 175 MG/DL HDL CHOLESTEROL (test code = 2220) 71 MG/DL CALC LDL CHOL (test code = 2237) 58 MG/DL RISK RATIO LDL/HDL (test cod e = 2238) 0.82 RATIO Jonatan Barber LandyCBC W/AUTO [id number] 00:00:00* Test Item Value Reference Range Interpretation [...] ABS NUCLEATED RBCS (test cod e = 65491) 0.00 K/UL [id number] 00:00:00* Test Item Value Reference Range Interpretation Comme nts TSH, THIRD GENERATION (test code = 2821) 0.328 UIU/ML Jonatan Barber AustinLIPID [id number] 00:00:00* Test Item Value Reference Range Interpretation Comme nts CHOLESTEROL (test code = 2210) 154 MG/DL TRIGLYCERIDES (test code = 2232) 175 MG/DL HDL CHOLESTEROL (test code = 2220) 71 MG/DL CALC LDL CHOL (test code = 2237) 58 MG/DL RISK RATIO LDL/HDL (test cod e = 2238) 0.82 RATIO CBC W/AUTO [id number] 00:00:00* Test Item Value Reference Range Interpretation [...] ABS NUCLEATED RBCS (test cod e = 78309) 0.00 K/UL Jonatan [id number] 00:00:00* Test Item Value Reference Range Interpretation Comme nts TSH, THIRD GENERATION (test code = 2821) 0.328 UIU/ML LIPID [id number] 00:00:00* Test Item Value Reference Range Interpretation Comme nts CHOLESTEROL (test code = 2210) 154 MG/DL TRIGLYCERIDES (test code = 2232) 175 MG/DL HDL CHOLESTEROL (test code = 2220) 71 MG/DL CALC LDL CHOL (test code = 2237) 58 MG/DL RISK RATIO LDL/HDL (test cod e = 2238) 0.82 RATIO Jonatan [id number] 00:00:00* Test Item Value Reference Range Interpretation Comme nts TSH, THIRD GENERATION (test code = 2821) 0.328 UIU/ML Jonatan EasonCBC W/AUTO [id number] 00:00:00* Test Item Value Reference Range Interpretation [...] ABS NUCLEATED RBCS (test cod e = 42564) 0.00 K/UL LIPID [id number] 00:00:00* Test Item Value Reference Range Interpretation Comme nts CHOLESTEROL (test code = 2210) 154 MG/DL TRIGLYCERIDES (test code = 2232) 175 MG/DL HDL CHOLESTEROL (test code = 2220) 71 MG/DL CALC LDL CHOL (test code = 2237) 58 MG/DL RISK RATIO LDL/HDL (test cod e = 2238) 0.82 RATIO CBC W/AUTO [id number] 00:00:00* Test Item Value Reference Range Interpretation [...] ABS NUCLEATED RBCS (test cod e = 27945) 0.00 K/UL Jonatan [id number] 00:00:00* Test Item Value Reference Range Interpretation Comme nts TSH, THIRD GENERATION (test code = 2821) 0.328 UIU/ML CBC W/AUTO [id number] 00:00:00* Test Item Value Reference Range Interpretation [...] ABS NUCLEATED RBCS (test cod e = 63423) 0.00 K/UL LIPID [id number] 00:00:00* Test Item Value Reference Range Interpretation Comme nts CHOLESTEROL (test code = 2210) 154 MG/DL TRIGLYCERIDES (test code = 2232) 175 MG/DL HDL CHOLESTEROL (test code = 2220) 71 MG/DL CALC LDL CHOL (test code = 2237) 58 MG/DL RISK RATIO LDL/HDL (test cod e = 2238) 0.82 RATIO Jonatan [id number] 00:00:00* Test Item Value Reference Range Interpretation Comme nts TSH, THIRD GENERATION (test code = 2821) 0.328 UIU/ML Jonatan EasonLIPID [id number] 00:00:00* Test Item Value Reference Range Interpretation Comme nts CHOLESTEROL (test code = 2210) 154 MG/DL TRIGLYCERIDES (test code = 2232) 175 MG/DL HDL CHOLESTEROL (test code = 2220) 71 MG/DL CALC LDL CHOL (test code = 2237) 58 MG/DL RISK RATIO LDL/HDL (test cod e = 2238) 0.82 RATIO CBC W/AUTO [id number] 00:00:00* Test Item Value Reference Range Interpretation [...] ABS NUCLEATED RBCS (test cod e = 41794) 0.00 K/UL Jonatan EasonCBC W/AUTO [id number] 00:00:00* Test Item Value Reference Range Interpretation [...] ABS NUCLEATED RBCS (test cod e = 76531) 0.00 K/UL Jonatan [id number] 00:00:00* Test Item Value Reference Range Interpretation Comme nts TSH, THIRD GENERATION (test code = 2821) 0.328 UIU/ML LIPID [id number] 00:00:00* Test Item Value Reference Range Interpretation Comme nts CHOLESTEROL (test code = 2210) 154 MG/DL TRIGLYCERIDES (test code = 2232) 175 MG/DL HDL CHOLESTEROL (test code = 2220) 71 MG/DL CALC LDL CHOL (test code = 2237) 58 MG/DL RISK RATIO LDL/HDL (test cod e = 2238) 0.82 RATIO Jonatan [id number] 00:00:00* Test Item Value Reference Range Interpretation Comme nts TSH, THIRD GENERATION (test code = 2821) 0.328 UIU/ML Jonatan EasonLIPID [id number] 00:00:00* Test Item Value Reference Range Interpretation Comme nts CHOLESTEROL (test code = 2210) 154 MG/DL TRIGLYCERIDES (test code = 2232) 175 MG/DL HDL CHOLESTEROL (test code = 2220) 71 MG/DL CALC LDL CHOL (test code = 2237) 58 MG/DL RISK RATIO LDL/HDL (test cod e = 2238) 0.82 RATIO Jonatan [id number] 00:00:00* Test Item Value Reference Range Interpretation Comme nts TSH, THIRD GENERATION (test code = 2821) 0.328 UIU/ML Jonatan EasonCBC W/AUTO [id number] 00:00:00* Test Item Value Reference Range Interpretation [...] ABS NUCLEATED RBCS (test cod e = 37693) 0.00 K/UL Jonatan EasonCBC W/AUTO [id number] 00:00:00* Test Item Value Reference Range Interpretation [...] ABS NUCLEATED RBCS (test cod e = 89647) 0.00 K/UL Jonatan EasonLIPID [id number] 00:00:00* Test Item Value Reference Range Interpretation Comme nts CHOLESTEROL (test code = 2210) 154 MG/DL TRIGLYCERIDES (test code = 2232) 175 MG/DL HDL CHOLESTEROL (test code = 2220) 71 MG/DL CALC LDL CHOL (test code = 2237) 58 MG/DL RISK RATIO LDL/HDL (test cod e = 2238) 0.82 RATIO Jonatan [id number] 00:00:00* Test Item Value Reference Range Interpretation Comme nts TSH, THIRD GENERATION (test code = 2821) 0.328 UIU/ML Jonatan EasonLIPID [id number] 00:00:00* Test Item Value Reference Range Interpretation Comme nts CHOLESTEROL (test code = 2210) 154 MG/DL TRIGLYCERIDES (test code = 2232) 175 MG/DL HDL CHOLESTEROL (test code = 2220) 71 MG/DL CALC LDL CHOL (test code = 2237) 58 MG/DL RISK RATIO LDL/HDL (test cod e = 2238) 0.82 RATIO Jonatan [id number] 00:00:00* Test Item Value Reference Range Interpretation Comme nts TSH, THIRD GENERATION (test code = 2821) 0.328 UIU/ML Jonatan EasonCBC W/AUTO [id number] 00:00:00* Test Item Value Reference Range Interpretation [...] ABS NUCLEATED RBCS (test cod e = 97217) 0.00 K/UL Jonatan EasonLIPID [id number] 00:00:00* Test Item Value Reference Range Interpretation Comme nts CHOLESTEROL (test code = 2210) 154 MG/DL TRIGLYCERIDES (test code = 2232) 175 MG/DL HDL CHOLESTEROL (test code = 2220) 71 MG/DL CALC LDL CHOL (test code = 2237) 58 MG/DL RISK RATIO LDL/HDL (test cod e = 2238) 0.82 RATIO Jonatan [id number] 00:00:00* Test Item Value Reference Range Interpretation Comme nts TSH, THIRD GENERATION (test code = 2821) 0.328 UIU/ML Jonatan EasonCBC W/AUTO [id number] 00:00:00* Test Item Value Reference Range Interpretation [...] ABS NUCLEATED RBCS (test cod e = 11522) 0.00 K/UL Jonatan EasonLIPID [id number] 00:00:00* Test Item Value Reference Range Interpretation Comme nts CHOLESTEROL (test code = 2210) 154 MG/DL TRIGLYCERIDES (test code = 2232) 175 MG/DL HDL CHOLESTEROL (test code = 2220) 71 MG/DL CALC LDL CHOL (test code = 2237) 58 MG/DL RISK RATIO LDL/HDL (test cod e = 2238) 0.82 RATIO Jonatan EasonCBC W/AUTO [id number] 00:00:00* Test Item Value Reference Range Interpretation [...] ABS NUCLEATED RBCS (test cod e = 70595) 0.00 K/UL [id number] 00:00:00* Test Item Value Reference Range Interpretation Comme nts TSH, THIRD GENERATION (test code = 2821) 0.328 UIU/ML Jonatan EasonCBC W/AUTO [id number] 00:00:00* Test Item Value Reference Range Interpretation [...] ABS NUCLEATED RBCS (test cod e = 26589) 0.00 K/UL Jonatan EasonLIPID [id number] 00:00:00* Test Item Value Reference Range Interpretation Comme nts CHOLESTEROL (test code = 2210) 154 MG/DL TRIGLYCERIDES (test code = 2232) 175 MG/DL HDL CHOLESTEROL (test code = 2220) 71 MG/DL CALC LDL CHOL (test code = 2237) 58 MG/DL RISK RATIO LDL/HDL (test cod e = 2238) 0.82 RATIO [id number] 00:00:00* Test Item Value Reference Range Interpretation Comme nts TSH, THIRD GENERATION (test code = 2821) 0.328 UIU/ML LIPID [id number] 00:00:00* Test Item Value Reference Range Interpretation Comme nts CHOLESTEROL (test code = 2210) 154 MG/DL TRIGLYCERIDES (test code = 2232) 175 MG/DL HDL CHOLESTEROL (test code = 2220) 71 MG/DL CALC LDL CHOL (test code = 2237) 58 MG/DL RISK RATIO LDL/HDL (test cod e = 2238) 0.82 RATIO Jonatan [id number] 00:00:00* Test Item Value Reference Range Interpretation Comme nts TSH, THIRD GENERATION (test code = 2821) 0.328 UIU/ML Jonatan EasonCBC W/AUTO [id number] 00:00:00* Test Item Value Reference Range Interpretation [...] ABS NUCLEATED RBCS (test cod e = 13417) 0.00 K/UL CBC W/AUTO [id number] 00:00:00* Test Item Value Reference Range Interpretation [...] ABS NUCLEATED RBCS (test cod e = 20087) 0.00 K/UL Jonatan F AustinLIPID [id number] 00:00:00* Test Item Value Reference Range Interpretation Comme nts CHOLESTEROL (test code = 2210) 154 MG/DL TRIGLYCERIDES (test code = 2232) 175 MG/DL HDL CHOLESTEROL (test code = 2220) 71 MG/DL CALC LDL CHOL (test code = 2237) 58 MG/DL RISK RATIO LDL/HDL (test cod e = 2238) 0.82 RATIO TSH, THIRD [id number] 04:33:43* Test Item Value Reference Range Interpretation Comme nts TSH, THIRD GENERATION (test code = 2821) 2.380 UIU/ML 0.400-4.100 UNLESS OTHERWISE INDICATED, ALL TESTING PERFORMED [facility] [address] [place] [address] [employer]: CASSIE PHAM M.D. CLIA NUMBER [id number] [facility] [place]. [id number] 00:00:00* Test Item Value Reference Range Interpretation Comme nts TSH, THIRD GENERATION (test code = 2821) 2.380 UIU/ML [id number] 00:00:00* Test Item Value Reference Range Interpretation Comme nts TSH, THIRD GENERATION (test code = 2821) 2.380 UIU/ML Jonatan F [id number] 00:00:00* Test Item Value Reference Range Interpretation Comme nts TSH, THIRD GENERATION (test code = 2821) 2.380 UIU/ML [id number] 00:00:00* Test Item Value Reference Range Interpretation Comme nts TSH, THIRD GENERATION (test code = 2821) 2.380 UIU/ML Jonatan F [id number] 00:00:00* Test Item Value Reference Range Interpretation Comme nts TSH, THIRD GENERATION (test code = 2821) 2.380 UIU/ML [id number] 00:00:00* Test Item Value Reference Range Interpretation Comme nts TSH, THIRD GENERATION (test code = 2821) 2.380 UIU/ML [id number] 00:00:00* Test Item Value Reference Range Interpretation Comme nts TSH, THIRD GENERATION (test code = 2821) 2.380 UIU/ML Jonatan F [id number] 00:00:00* Test Item Value Reference Range Interpretation Comme nts TSH, THIRD GENERATION (test code = 2821) 2.380 UIU/ML [id number] 00:00:00* Test Item Value Reference Range Interpretation Comme nts TSH, THIRD GENERATION (test code = 2821) 2.380 UIU/ML Jonatan F [id number] 00:00:00* Test Item Value Reference Range Interpretation Comme nts TSH, THIRD GENERATION (test code = 2821) 2.380 UIU/ML Jonatan F [id number] 00:00:00* Test Item Value Reference Range Interpretation Comme nts TSH, THIRD GENERATION (test code = 2821) 2.380 UIU/ML Jonatan F [id number] 00:00:00* Test Item Value Reference Range Interpretation Comme nts TSH, THIRD GENERATION (test code = 2821) 2.380 UIU/ML Jonatan F [id number] 00:00:00* Test Item Value Reference Range Interpretation Comme nts TSH, THIRD GENERATION (test code = 2821) 2.380 UIU/ML Jonatan F [id number] 00:00:00* Test Item Value Reference Range Interpretation Comme nts TSH, THIRD GENERATION (test code = 2821) 2.380 UIU/ML Jonatan F [id number] 00:00:00* Test Item Value Reference Range Interpretation Comme nts TSH, THIRD GENERATION (test code = 2821) 2.380 UIU/ML [id number] 00:00:00* Test Item Value Reference Range Interpretation Comme nts TSH, THIRD GENERATION (test code = 2821) 2.380 UIU/ML Jonatan F [id number] 00:00:00* Test Item Value Reference Range Interpretation Comme nts TSH, THIRD GENERATION (test code = 2821) 2.380 UIU/ML Jonatan F [id number] 00:00:00* Test Item Value Reference Range Interpretation Comme nts TSH, THIRD GENERATION (test code = 2821) 2.380 UIU/ML CBC W/AUTO DIFF WITH [id number] 04:09:02* Test Item Value Reference Range Interpretation [...] 0.00-0.10 ABS NUCLEATED RBCS (test code = 83277) 0.00 K/UL 0.00-0.11 UNLESS OTHER LLANOS INDICATED, ALL TESTING PERFORMED [facility] [address] [place] [id number] [employer]OM[employer]: CASSIE PHAM M.D. CLIA NUMBER [id number] [facility] [place]. [id number] TSH, THIRD [id number] 03:53:33* Test Item Value Reference Range Interpretation Comme nts TSH, THIRD GENERATION (test code = 2821) 1.260 UIU/ML 0.400-4.100 CBC W/AUTO [id number] 00:00:00* Test Item Value Reference Range Interpretation [...] ABS NUCLEATED RBCS (test cod e = 38722) 0.00 K/UL Jonatan Barber [facility] W/AUTO [id number] 00:00:00* Test Item Value Reference Range Interpretation [...] ABS NUCLEATED RBCS (test cod e = 66985) 0.00 K/UL [id number] 00:00:00* Test Item Value Reference Range Interpretation Comme nts TSH, THIRD GENERATION (test code = 2821) 1.260 UIU/ML CBC W/AUTO [id number] 00:00:00* Test Item Value Reference Range Interpretation [...] ABS NUCLEATED RBCS (test cod e = 04168) 0.00 K/UL [id number] 00:00:00* Test Item Value Reference Range Interpretation Comme nts TSH, THIRD GENERATION (test code = 2821) 1.260 UIU/ML Jonatan EasonCBC W/AUTO [id number] 00:00:00* Test Item Value Reference Range Interpretation [...] ABS NUCLEATED RBCS (test cod e = 06969) 0.00 K/UL Jonatan [id number] 00:00:00* Test Item Value Reference Range Interpretation Comme nts TSH, THIRD GENERATION (test code = 2821) 1.260 UIU/ML CBC W/AUTO [id number] 00:00:00* Test Item Value Reference Range Interpretation [...] ABS NUCLEATED RBCS (test cod e = 00893) 0.00 K/UL [id number] 00:00:00* Test Item Value Reference Range Interpretation Comme nts TSH, THIRD GENERATION (test code = 2821) 1.260 UIU/ML Jonatan EasonCBC W/AUTO [id number] 00:00:00* Test Item Value Reference Range Interpretation [...] ABS NUCLEATED RBCS (test cod e = 61482) 0.00 K/UL Jonatan EasonLvlwszOTI2406-11-27 00:00:00* Test Item Value Reference Range Interpretation Comme nts TSH, THIRD GENERATION (test code = 2821) 1.260 UIU/ML [id number] 00:00:00* Test Item Value Reference Range Interpretation Comme nts TSH, THIRD GENERATION (test code = 2821) 1.260 UIU/ML CBC W/AUTO [id number] 00:00:00* Test Item Value Reference Range Interpretation [...] ABS NUCLEATED RBCS (test cod e = 52497) 0.00 K/UL [id number] 00:00:00* Test Item Value Reference Range Interpretation Comme nts TSH, THIRD GENERATION (test code = 2821) 1.260 UIU/ML Jonatan EasonCBC W/AUTO [id number] 00:00:00* Test Item Value Reference Range Interpretation [...] ABS NUCLEATED RBCS (test cod e = 83645) 0.00 K/UL Jonatan EasonCBC W/AUTO [id number] 00:00:00* Test Item Value Reference Range Interpretation [...] ABS NUCLEATED RBCS (test cod e = 76664) 0.00 K/UL [id number] 00:00:00* Test Item Value Reference Range Interpretation Comme nts TSH, THIRD GENERATION (test code = 2821) 1.260 UIU/ML CBC W/AUTO [id number] 00:00:00* Test Item Value Reference Range Interpretation [...] ABS NUCLEATED RBCS (test cod e = 17274) 0.00 K/UL [id number] 00:00:00* Test Item Value Reference Range Interpretation Comme nts TSH, THIRD GENERATION (test code = 2821) 1.260 UIU/ML Jonatan Barber [id number] 00:00:00* Test Item Value Reference Range Interpretation Comme nts TSH, THIRD GENERATION (test code = 2821) 1.260 UIU/ML Jonatan EasonCBC W/AUTO [id number] 00:00:00* Test Item Value Reference Range Interpretation [...] ABS NUCLEATED RBCS (test cod e = 75612) 0.00 K/UL Jonatan Barber [id number] 00:00:00* Test Item Value Reference Range Interpretation Comme nts TSH, THIRD GENERATION (test code = 2821) 1.260 UIU/ML Jonatan Barber LandyCBC W/AUTO [id number] 00:00:00* Test Item Value Reference Range Interpretation [...] (test cod e = 69686) 0.00 K/UL Jonatan [id number] 00:00:00* Test Item Value Reference Range Interpretation Comme nts TSH, THIRD GENERATION (test code = 2821) 1.260 UIU/ML Jonatan EasonCBC W/AUTO [id number] 00:00:00* Test Item Value Reference Range Interpretation [...] ABS NUCLEATED RBCS (test cod e = 12143) 0.00 K/UL Jonatan Barber AustinCBC W/AUTO [id number] 00:00:00* Test Item Value Reference Range Interpretation [...] ABS NUCLEATED RBCS (test cod e = 95665) 0.00 K/UL Jonatan [id number] 00:00:00* Test Item Value Reference Range Interpretation Comme nts TSH, THIRD GENERATION (test code = 2821) 1.260 UIU/ML Jonatan EasonCBC W/AUTO [id number] 00:00:00* Test Item Value Reference Range Interpretation [...] ABS NUCLEATED RBCS (test cod e = 31911) 0.00 K/UL Jonatan Barber [id number] 00:00:00* Test Item Value Reference Range Interpretation Comme nts TSH, THIRD GENERATION (test code = 2821) 1.260 UIU/ML Jonatan Barber LandyC W/AUTO [id number] 00:00:00* Test Item Value Reference Range Interpretation [...] ABS NUCLEATED RBCS (test cod e = 24835) 0.00 K/UL Jonatan Barber [id number] 00:00:00* Test Item Value Reference Range Interpretation Comme nts TSH, THIRD GENERATION (test code = 2821) 1.260 UIU/ML [id number] 00:00:00* Test Item Value Reference Range Interpretation Comme nts TSH, THIRD GENERATION (test code = 2821) 1.260 UIU/ML Jonatan EasonCBC W/AUTO [id number] 00:00:00* Test Item Value Reference Range Interpretation [...] ABS NUCLEATED RBCS (test cod e = 81570) 0.00 K/UL CBC W/AUTO [id number] 00:00:00* Test Item Value Reference Range Interpretation [...] ABS NUCLEATED RBCS (test cod e = 05661) 0.00 K/UL Jonatan [id number] 00:00:00* Test Item Value Reference Range Interpretation Comme nts TSH, THIRD GENERATION (test code = 2821) 1.260 UIU/ML [id number] 00:00:00* Test Item Value Reference Range Interpretation Comme nts TSH, THIRD GENERATION (test code = 2821) 1.260 UIU/ML Jonatan EasonCBC W/AUTO [id number] 00:00:00* Test Item Value Reference Range Interpretation [...] ABS NUCLEATED RBCS (test cod e = 92290) 0.00 K/UL COMMENTS (test code = 1016) (NOTE) CBC W/AUTO [id number] 00:00:00* Test Item Value Reference Range Interpretation [...] ABS NUCLEATED RBCS (test cod e = 31353) 0.00 K/UL COMMENTS (test code = 1016) (NOTE) Jonatan EasonHIV AB/AG COMBO RFLX [id number] 00:00:00* Test Item Value Reference Range Interpretation Comme nts HIV 1/2 4TH GEN, RFLX CONF ( test code = 3514) NON-REACTIVE HIV AB/AG COMBO RFLX [id number] 00:00:00* Test Item Value Reference Range Interpretation Comme nts HIV 1/2 4TH GEN, RFLX CONF ( test code = 3514) NON-REACTIVE Jonatan Barber LandyCBC W/AUTO [id number] 00:00:00* Test Item Value Reference Range Interpretation [...] ABS NUCLEATED RBCS (test cod e = 86665) 0.00 K/UL COMMENTS (test code = 1016) (NOTE) HIV AB/AG COMBO RFLX [id number] 00:00:00* Test Item Value Reference Range Interpretation Comme nts HIV 1/2 4TH GEN, RFLX CONF ( test code = 3514) NON-REACTIVE CBC W/AUTO [id number] 00:00:00* Test Item Value Reference Range Interpretation [...] ABS NUCLEATED RBCS (test cod e = 31716) 0.00 K/UL COMMENTS (test code = 1016) (NOTE) Jonatan EasonHIV AB/AG COMBO RFLX [id number] 00:00:00* Test Item Value Reference Range Interpretation Comme nts HIV 1/2 4TH GEN, RFLX CONF ( test code = 3514) NON-REACTIVE Jonatan EasonCBC W/AUTO [id number] 00:00:00* Test Item Value Reference Range Interpretation [...] ABS NUCLEATED RBCS (test cod e = 39198) 0.00 K/UL COMMENTS (test code = 1016) (NOTE) CBC W/AUTO [id number] 00:00:00* Test Item Value Reference Range Interpretation [...] ABS NUCLEATED RBCS (test cod e = 47432) 0.00 K/UL COMMENTS (test code = 1016) (NOTE) HIV AB/AG COMBO RFLX [id number] 00:00:00* Test Item Value Reference Range Interpretation Comme nts HIV 1/2 4TH GEN, RFLX CONF ( test code = 3514) NON-REACTIVE CBC W/AUTO [id number] 00:00:00* Test Item Value Reference Range Interpretation [...] ABS NUCLEATED RBCS (test cod e = 99669) 0.00 K/UL COMMENTS (test code = 1016) (NOTE) Jonatan Barber AustinHIV AB/AG COMBO RFLX [id number] 00:00:00* Test Item Value Reference Range Interpretation Comme nts HIV 1/2 4TH GEN, RFLX CONF ( test code = 3514) NON-REACTIVE Jonatan F AustinHIV AB/AG COMBO RFLX [id number] 00:00:00* Test Item Value Reference Range Interpretation Comme nts HIV 1/2 4TH GEN, RFLX CONF ( test code = 3514) NON-REACTIVE CBC W/AUTO [id number] 00:00:00* Test Item Value Reference Range Interpretation [...] ABS NUCLEATED RBCS (test cod e = 34226) 0.00 K/UL COMMENTS (test code = 1016) (NOTE) CBC W/AUTO [id number] 00:00:00* Test Item Value Reference Range Interpretation [...] ABS NUCLEATED RBCS (test cod e = 91948) 0.00 K/UL COMMENTS (test code = 1016) (NOTE) Jonatan EasonHIV AB/AG COMBO RFLX [id number] 00:00:00* Test Item Value Reference Range Interpretation Comme nts HIV 1/2 4TH GEN, RFLX CONF ( test code = 3514) NON-REACTIVE HIV AB/AG COMBO RFLX [id number] 00:00:00* Test Item Value Reference Range Interpretation Comme nts HIV 1/2 4TH GEN, RFLX CONF ( test code = 3514) NON-REACTIVE Jonatan EasonCBC W/AUTO [id number] 00:00:00* Test Item Value Reference Range Interpretation [...] ABS NUCLEATED RBCS (test cod e = 05695) 0.00 K/UL COMMENTS (test code = 1016) (NOTE) Jonatan EasonHERMILAV AB/AG COMBO RFLX [id number] 00:00:00* Test Item Value Reference Range Interpretation Comme nts HIV 1/2 4TH GEN, RFLX CONF ( test code = 3514) NON-REACTIVE Jonatan EasonCBC W/AUTO [id number] 00:00:00* Test Item Value Reference Range Interpretation [...] ABS NUCLEATED RBCS (test cod e = 71167) 0.00 K/UL COMMENTS (test code = 1016) (NOTE) Jonatan EasonCBC W/AUTO [id number] 00:00:00* Test Item Value Reference Range Interpretation [...] ABS NUCLEATED RBCS (test cod e = 39172) 0.00 K/UL COMMENTS (test code = 1016) (NOTE) Jonatan EasonHIV AB/AG COMBO RFLX [id number] 00:00:00* Test Item Value Reference Range Interpretation Comme nts HIV 1/2 4TH GEN, RFLX CONF ( test code = 3514) NON-REACTIVE Jonatan Barber AustinHIV AB/AG COMBO RFLX [id number] 00:00:00* Test Item Value Reference Range Interpretation Comme nts HIV 1/2 4TH GEN, RFLX CONF ( test code = 3514) NON-REACTIVE oJnatan Barber AustinCBC W/AUTO [id number] 00:00:00* Test Item Value Reference Range Interpretation [...] ABS NUCLEATED RBCS (test cod e = 41095) 0.00 K/UL COMMENTS (test code = 1016) (NOTE) Jonatan EasonHIV AB/AG COMBO RFLX [id number] 00:00:00* Test Item Value Reference Range Interpretation Comme nts HIV 1/2 4TH GEN, RFLX CONF ( test code = 3514) NON-REACTIVE Jonatan EasonCBC W/AUTO [id number] 00:00:00* Test Item Value Reference Range Interpretation [...] ABS NUCLEATED RBCS (test cod e = 26407) 0.00 K/UL COMMENTS (test code = 1016) (NOTE) Jonatan Barber LandyHIV AB/AG COMBO RFLX [id number] 00:00:00* Test Item Value Reference Range Interpretation Comme nts HIV 1/2 4TH GEN, RFLX CONF ( test code = 3514) NON-REACTIVE Jonatan EasonCBC W/AUTO [id number] 00:00:00* Test Item Value Reference Range Interpretation [...] ABS NUCLEATED RBCS (test cod e = 81997) 0.00 K/UL COMMENTS (test code = 1016) (NOTE) [facility] [id number] 00:00:00* Test Item Value Reference Range Interpretation [...] ABS NUCLEATED RBCS (test cod e = 47241) 0.00 K/UL COMMENTS (test code = 1016) (NOTE) HIV AB/AG COMBO RFLX [id number] 00:00:00* Test Item Value Reference Range Interpretation Comme nts HIV 1/2 4TH GEN, RFLX CONF ( test code = 3514) NON-REACTIVE HIV AB/AG COMBO RFLX [id number] 00:00:00* Test Item Value Reference Range Interpretation Comme nts HIV 1/2 4TH GEN, RFLX CONF ( test code = 3514) NON-REACTIVE Jonatan EasonCBC W/AUTO [id number] 00:00:00* Test Item Value Reference Range Interpretation [...] ABS NUCLEATED RBCS (test cod e = 25089) 0.00 K/UL COMMENTS (test code = 1016) (NOTE) CBC W/AUTO [id number] 00:00:00* Test Item Value Reference Range Interpretation [...] ABS NUCLEATED RBCS (test cod e = 76405) 0.00 K/UL COMMENTS (test code = 1016) (NOTE) Jonatan EasonHIV AB/AG COMBO RFLX [id number] 00:00:00* Test Item Value Reference Range Interpretation Comme nts HIV 1/2 4TH GEN, RFLX CONF ( test code = 3514) NON-REACTIVE HIV AB/AG COMBO RFLX [id number] 00:00:00* Test Item Value Reference Range Interpretation Comme nts HIV 1/2 4TH GEN, RFLX CONF ( test code = 3514) NON-REACTIVE Jonatan Barber [id number] 00:00:00* Test Item Value Reference Range Interpretation Comme nts NT-proBNP (test code = 18993) 245 PG/ML [id number] 00:00:00* Test Item Value Reference Range Interpretation Comme nts NT-proBNP (test code = 23549) 245 PG/ML Jonatan Barebr [id number] 00:00:00* Test Item Value Reference Range Interpretation Comme nts TSH, THIRD GENERATION (test code = 2821) 0.115 UIU/ML [id number] 00:00:00* Test Item Value Reference Range Interpretation Comme nts TSH, THIRD GENERATION (test code = 2821) 0.115 UIU/ML Jonatan Barber [id number] 00:00:00* Test Item Value Reference Range Interpretation Comme nts NT-proBNP (test code = 23055) 245 PG/ML [id number] 00:00:00* Test Item Value Reference Range Interpretation Comme nts NT-proBNP (test code = 02611) 245 PG/ML Jonatan Barber [id number] 00:00:00* Test Item Value Reference Range Interpretation Comme nts TSH, THIRD GENERATION (test code = 2821) 0.115 UIU/ML [id number] 00:00:00* Test Item Value Reference Range Interpretation Comme nts NT-proBNP (test code = 19629) 245 PG/ML [id number] 00:00:00* Test Item Value Reference Range Interpretation Comme nts TSH, THIRD GENERATION (test code = 2821) 0.115 UIU/ML Jonatan Barber [id number] 00:00:00* Test Item Value Reference Range Interpretation Comme nts NT-proBNP (test code = 08619) 245 PG/ML Jonatan Barber [id number] 00:00:00* Test Item Value Reference Range Interpretation Comme nts TSH, THIRD GENERATION (test code = 2821) 0.115 UIU/ML [id number] 00:00:00* Test Item Value Reference Range Interpretation Comme nts NT-proBNP (test code = 37944) 245 PG/ML [id number] 00:00:00* Test Item Value Reference Range Interpretation Comme nts TSH, THIRD GENERATION (test code = 2821) 0.115 UIU/ML Jonatan F [id number] 00:00:00* Test Item Value Reference Range Interpretation Comme nts TSH, THIRD GENERATION (test code = 2821) 0.115 UIU/ML [id number] 00:00:00* Test Item Value Reference Range Interpretation Comme nts NT-proBNP (test code = 14394) 245 PG/ML Jonatan F [id number] 00:00:00* Test Item Value Reference Range Interpretation Comme nts TSH, THIRD GENERATION (test code = 2821) 0.115 UIU/ML [id number] 00:00:00* Test Item Value Reference Range Interpretation Comme nts NT-proBNP (test code = 95365) 245 PG/ML [id number] 00:00:00* Test Item Value Reference Range Interpretation Comme nts NT-proBNP (test code = 57975) 245 PG/ML [id number] 00:00:00* Test Item Value Reference Range Interpretation Comme nts TSH, THIRD GENERATION (test code = 2821) 0.115 UIU/ML Jonatan F [id number] 00:00:00* Test Item Value Reference Range Interpretation Comme nts TSH, THIRD GENERATION (test code = 2821) 0.115 UIU/ML Jonatan F [id number] 00:00:00* Test Item Value Reference Range Interpretation Comme nts NT-proBNP (test code = 00784) 245 PG/ML Jonatan F [id number] 00:00:00* Test Item Value Reference Range Interpretation Comme nts TSH, THIRD GENERATION (test code = 2821) 0.115 UIU/ML Jonatan F [id number] 00:00:00* Test Item Value Reference Range Interpretation Comme nts NT-proBNP (test code = 64084) 245 PG/ML Jonatan Barber [id number] 00:00:00* Test Item Value Reference Range Interpretation Comme nts TSH, THIRD GENERATION (test code = 2821) 0.115 UIU/ML Jonatan F [id number] 00:00:00* Test Item Value Reference Range Interpretation Comme nts NT-proBNP (test code = 62900) 245 PG/ML Jonatan F [id number] 00:00:00* Test Item Value Reference Range Interpretation Comme nts NT-proBNP (test code = 61539) 245 PG/ML Jonatan F GjhahiVVT7598-13-34 00:00:00* Test Item Value Reference Range Interpretation Comme nts TSH, THIRD GENERATION (test code = 2821) 0.115 UIU/ML Jonatan F [id number] 00:00:00* Test Item Value Reference Range Interpretation Comme nts NT-proBNP (test code = 20396) 245 PG/ML Jonatan Barber [id number] 00:00:00* Test Item Value Reference Range Interpretation Comme nts TSH, THIRD GENERATION (test code = 2821) 0.115 UIU/ML Jonatan F UlsllnMADYPU9234-02-24 00:00:00* Test Item Value Reference Range Interpretation Comme nts NT-proBNP (test code = 78315) 245 PG/ML Jonatan Barber [id number] 00:00:00* Test Item Value Reference Range Interpretation Comme nts TSH, THIRD GENERATION (test code = 2821) 0.115 UIU/ML [id number] 00:00:00* Test Item Value Reference Range Interpretation Comme nts TSH, THIRD GENERATION (test code = 2821) 0.115 UIU/ML Jonatan F [id number] 00:00:00* Test Item Value Reference Range Interpretation Comme nts NT-proBNP (test code = 67145) 245 PG/ML [id number] 00:00:00* Test Item Value Reference Range Interpretation Comme nts NT-proBNP (test code = 68535) 245 PG/ML Jonatan F WbwrvtNNY2266-11-82 00:00:00* Test Item Value Reference Range Interpretation Comme nts TSH, THIRD GENERATION (test code = 2821) 0.115 UIU/ML [id number] 00:00:00* Test Item Value Reference Range Interpretation Comme nts TSH, THIRD GENERATION (test code = 2821) 0.115 UIU/ML Jonatan EasonIbqhjeVVU6705-38-17 00:00:00* Test Item Value Reference Range Interpretation Comme nts TSH, THIRD GENERATION (test code = 2821) 0.038 UIU/ML Jonatan Barber AustinCOMPREHENSIVE METABOLIC PANEL [ADDED]2020-12-21 00:00:00* Test Item Value Reference Range Interpretation Comme nts GLUCOSE (test code = 2217) 122 MG/DL BUN (test code = 2208) 17 MG/DL CREATININE (test code = 2214) 1.01 MG/DL eGFR AMER. (test cod e = 36327) 69 ML/MIN/1.73 eGFR NON- AMER. (test code = 78533) 60 ML/MIN/1.73 CALC BUN/CREAT (test code = [...] (test code = 2219) 27 U/L Jonatan EasonCOMPREHENSIVE METABOLIC PANEL [ADDED]2020-12-21 00:00:00* Test Item Value Reference Range Interpretation Comme nts GLUCOSE (test code = 2217) 122 MG/DL BUN (test code = 2208) 17 MG/DL CREATININE (test code = 2214) 1.01 MG/DL eGFR AMER. (test cod e = 04352) 69 ML/MIN/1.73 eGFR NON- AMER. (test code = 13515) 60 ML/MIN/1.73 CALC BUN/CREAT (test code = [...] code = 2219) 27 U/L CBC W/AUTO [id number] 00:00:00* Test Item Value Reference Range Interpretation [...] ABS NUCLEATED RBCS (test cod e = 31047) 0.00 K/UL CBC W/AUTO [id number] 00:00:00* Test Item Value Reference Range Interpretation [...] ABS NUCLEATED RBCS (test cod e = 27291) 0.00 K/UL Jonatan EasonVomkxlKKE6089-88-55 00:00:00* Test Item Value Reference Range Interpretation Comme nts TSH, THIRD GENERATION (test code = 2821) 0.038 UIU/ML COMPREHENSIVE METABOLIC PANEL [ADDED]2020-12-21 00:00:00* Test Item Value Reference Range Interpretation Comme nts GLUCOSE (test code = 2217) 122 MG/DL BUN (test code = 2208) 17 MG/DL CREATININE (test code = 2214) 1.01 MG/DL eGFR AMER. (test cod e = 99759) 69 ML/MIN/1.73 eGFR NON- AMER. (test code = 69722) 60 ML/MIN/1.73 CALC BUN/CREAT (test code = [...] 1.8 RATIO BILIRUBIN, TOTAL (test code = 7) 0.5 MG/DL ALKALINE PHOSPHATASE (test code = 2204) 114 U/L AST (test code = 2218) 35 U/L ALT (test code = 2219) 27 U/L [id number] 00:00:00* Test Item Value Reference Range Interpretation Comme nts TSH, THIRD GENERATION (test code = 2821) 0.038 UIU/ML Jonatan Barber AustinCOMPREHENSIVE METABOLIC PANEL [ADDED]2020-12-21 00:00:00* Test Item Value Reference Range Interpretation Comme nts GLUCOSE (test code = 7) 122 MG/DL BUN (test code = 2208) 17 MG/DL CREATININE (test code = 2214) 1.01 MG/DL eGFR AMER. (test cod e = 21072) 69 ML/MIN/1.73 eGFR NON- AMER. (test code = 41418) 60 ML/MIN/1.73 CALC BUN/CREAT (test code = [...] (test code = 2219) 27 U/L [facility] [id number] 00:00:00* Test Item Value Reference Range Interpretation [...] ABS NUCLEATED RBCS (test cod e = 76161) 0.00 K/UL [id number] 00:00:00* Test Item Value Reference Range Interpretation Comme nts TSH, THIRD GENERATION (test code = 2821) 0.038 UIU/ML CBC W/AUTO [id number] 00:00:00* Test Item Value Reference Range Interpretation [...] ABS NUCLEATED RBCS (test cod e = 79300) 0.00 K/UL Jonatan Elisabeth EasonCOMPREHENSIVE METABOLIC PANEL [ADDED]2020-12-21 00:00:00* Test Item Value Reference Range Interpretation Comme nts GLUCOSE (test code = 2217) 122 MG/DL BUN (test code = 2208) 17 MG/DL CREATININE (test code = 2214) 1.01 MG/DL eGFR AMER. (test cod e = 01742) 69 ML/MIN/1.73 eGFR NON- AMER. (test code = 03464) 60 ML/MIN/1.73 CALC BUN/CREAT (test code = [...] ALT (test code = 2219) 27 U/L [id number] 00:00:00* Test Item Value Reference Range Interpretation Comme nts TSH, THIRD GENERATION (test code = 2821) 0.038 UIU/ML Jonatan Barber LandyCBC W/AUTO [id number] 00:00:00* Test Item Value Reference Range Interpretation [...] ABS NUCLEATED RBCS (test cod e = 94713) 0.00 K/UL CBC W/AUTO [id number] 00:00:00* Test Item Value Reference Range Interpretation [...] ABS NUCLEATED RBCS (test cod e = 84395) 0.00 K/UL COMPREHENSIVE METABOLIC PANEL [ADDED]2020-12-21 00:00:00* Test Item Value Reference Range Interpretation Comme nts GLUCOSE (test code = 2217) 122 MG/DL BUN (test code = 2208) 17 MG/DL CREATININE (test code = 2214) 1.01 MG/DL eGFR AMER. (test cod e = 11138) 69 ML/MIN/1.73 eGFR NON- AMER. (test code = 87530) 60 ML/MIN/1.73 CALC BUN/CREAT (test code = [...] code = 2219) 27 U/L Jonatan Barber [id number] 00:00:00* Test Item Value Reference Range Interpretation Comme nts TSH, THIRD GENERATION (test code = 2821) 0.038 UIU/ML COMPREHENSIVE METABOLIC PANEL [ADDED]2020-12-21 00:00:00* Test Item Value Reference Range Interpretation Comme nts GLUCOSE (test code = 2217) 122 MG/DL BUN (test code = 2208) 17 MG/DL CREATININE (test code = 2214) 1.01 MG/DL eGFR AMER. (test cod e = 06910) 69 ML/MIN/1.73 eGFR NON- AMER. (test code = 79351) 60 ML/MIN/1.73 CALC BUN/CREAT (test code = [...] code = 2219) 27 U/L CBC W/AUTO [id number] 00:00:00* Test Item Value Reference Range Interpretation [...] ABS NUCLEATED RBCS (test cod e = 08011) 0.00 K/UL Jonatan EasonVmjmnmJCJ5827-04-50 00:00:00* Test Item Value Reference Range Interpretation Comme nts TSH, THIRD GENERATION (test code = 2821) 0.038 UIU/ML Jonatan EasonCBC W/AUTO [id number] 00:00:00* Test Item Value Reference Range Interpretation [...] ABS NUCLEATED RBCS (test cod e = 81524) 0.00 K/UL COMPREHENSIVE METABOLIC PANEL [ADDED]2020-12-21 00:00:00* Test Item Value Reference Range Interpretation Comme nts GLUCOSE (test code = 2217) 122 MG/DL BUN (test code = 2208) 17 MG/DL CREATININE (test code = 2214) 1.01 MG/DL eGFR AMER. (test cod e = 19589) 69 ML/MIN/1.73 eGFR NON- AMER. (test code = 94518) 60 ML/MIN/1.73 CALC BUN/CREAT (test code = [...] (test code = 2219) 27 U/L Jonatan [id number] 00:00:00* Test Item Value Reference Range Interpretation Comme nts TSH, THIRD GENERATION (test code = 2821) 0.038 UIU/ML CBC W/AUTO [id number] 00:00:00* Test Item Value Reference Range Interpretation [...] ABS NUCLEATED RBCS (test cod e = 66922) 0.00 K/UL Jonatan [id number] 00:00:00* Test Item Value Reference Range Interpretation Comme nts TSH, THIRD GENERATION (test code = 2821) 0.038 UIU/ML CBC W/AUTO [id number] 00:00:00* Test Item Value Reference Range Interpretation [...] ABS NUCLEATED RBCS (test cod e = 93137) 0.00 K/UL Jonatan EasonCOMPREHENSIVE METABOLIC PANEL [ADDED]2020-12-21 00:00:00* Test Item Value Reference Range Interpretation Comme nts GLUCOSE (test code = 2217) 122 MG/DL BUN (test code = 2208) 17 MG/DL CREATININE (test code = 2214) 1.01 MG/DL eGFR AMER. (test cod e = 89946) 69 ML/MIN/1.73 eGFR NON- AMER. (test code = 39673) 60 ML/MIN/1.73 CALC BUN/CREAT (test code = [...] code = 2219) 27 U/L CBC W/AUTO [id number] 00:00:00* Test Item Value Reference Range Interpretation [...] ABS NUCLEATED RBCS (test cod e = 15771) 0.00 K/UL Jonatan [id number] 00:00:00* Test Item Value Reference Range Interpretation Comme nts TSH, THIRD GENERATION (test code = 2821) 0.038 UIU/ML Jonatan Barber AustinCOMPREHENSIVE METABOLIC PANEL [ADDED]2020-12-21 00:00:00* Test Item Value Reference Range Interpretation Comme nts GLUCOSE (test code = 2217) 122 MG/DL BUN (test code = 2208) 17 MG/DL CREATININE (test code = 2214) 1.01 MG/DL eGFR AMER. (test cod e = 60511) 69 ML/MIN/1.73 eGFR NON- AMER. (test code = 32248) 60 ML/MIN/1.73 CALC BUN/CREAT (test code = [...] (test code = 2219) 27 U/L Jonatan [id number] 00:00:00* Test Item Value Reference Range Interpretation Comme nts TSH, THIRD GENERATION (test code = 2821) 0.038 UIU/ML Jonatan Barber AustinCOMPREHENSIVE METABOLIC PANEL [ADDED]2020-12-21 00:00:00* Test Item Value Reference Range Interpretation Comme nts GLUCOSE (test code = 2217) 122 MG/DL BUN (test code = 2208) 17 MG/DL CREATININE (test code = 2214) 1.01 MG/DL eGFR AMER. (test cod e = 99987) 69 ML/MIN/1.73 eGFR NON- AMER. (test code = 51455) 60 ML/MIN/1.73 CALC BUN/CREAT (test code = [...] (test code = 2219) 27 U/L [facility]CR[facility] [id number] 00:00:00* Test Item Value Reference Range Interpretation [...] ABS NUCLEATED RBCS (test cod e = 16223) 0.00 K/UL Jonatan Barber [id number] 00:00:00* Test Item Value Reference Range Interpretation Comme nts TSH, THIRD GENERATION (test code = 2821) 0.038 UIU/ML Jonatan F [id number] 00:00:00* Test Item Value Reference Range Interpretation Comme nts TSH, THIRD GENERATION (test code = 2821) 0.038 UIU/ML Jonatan Barber NyeCOMPREHENSIVE METABOLIC PANEL [ADDED]2020-12-21 00:00:00* Test Item Value Reference Range Interpretation Comme nts GLUCOSE (test code = 2217) 122 MG/DL BUN (test code = 2208) 17 MG/DL CREATININE (test code = 2214) 1.01 MG/DL eGFR AMER. (test cod e = 12209) 69 ML/MIN/1.73 eGFR NON- AMER. (test code = 69463) 60 ML/MIN/1.73 CALC BUN/CREAT (test code = [...] (test code = 2219) 27 U/L Jonatan EasonCOMPREHENSIVE METABOLIC PANEL [ADDED]2020-12-21 00:00:00* Test Item Value Reference Range Interpretation Comme nts GLUCOSE (test code = 2217) 122 MG/DL BUN (test code = 2208) 17 MG/DL CREATININE (test code = 2214) 1.01 MG/DL eGFR AMER. (test cod e = 99030) 69 ML/MIN/1.73 eGFR NON- AMER. (test code = 80788) 60 ML/MIN/1.73 CALC BUN/CREAT (test code = [...] code = 2219) 27 U/L Jonatan Barber LandyCBC W/AUTO [id number] 00:00:00* Test Item Value Reference Range Interpretation [...] ABS NUCLEATED RBCS (test cod e = 42571) 0.00 K/UL Jonatan [id number] 00:00:00* Test Item Value Reference Range Interpretation Comme nts TSH, THIRD GENERATION (test code = 2821) 0.038 UIU/ML Jonatan Barber LandyCOMPREHENSIVE METABOLIC PANEL [ADDED]2020-12-21 00:00:00* Test Item Value Reference Range Interpretation Comme nts GLUCOSE (test code = 2217) 122 MG/DL BUN (test code = 2208) 17 MG/DL CREATININE (test code = 2214) 1.01 MG/DL eGFR AMER. (test cod e = 01688) 69 ML/MIN/1.73 eGFR NON- AMER. (test code = 25051) 60 ML/MIN/1.73 CALC BUN/CREAT (test code = [...] (test code = 2219) 27 U/L Jonatan EasonCBC W/AUTO [id number] 00:00:00* Test Item Value Reference Range Interpretation [...] ABS NUCLEATED RBCS (test cod e = 42721) 0.00 K/UL Jonatan [id number] 00:00:00* Test Item Value Reference Range Interpretation Comme nts TSH, THIRD GENERATION (test code = 2821) 0.038 UIU/ML Jonatan EasonCOMPREHENSIVE METABOLIC PANEL [ADDED]2020-12-21 00:00:00* Test Item Value Reference Range Interpretation Comme nts GLUCOSE (test code = 2217) 122 MG/DL BUN (test code = 2208) 17 MG/DL CREATININE (test code = 2214) 1.01 MG/DL eGFR AMER. (test cod e = 52102) 69 ML/MIN/1.73 eGFR NON- AMER. (test code = 49599) 60 ML/MIN/1.73 CALC BUN/CREAT (test code = [...] ALT (test code = 2219) 27 U/L COMPREHENSIVE METABOLIC PANEL [ADDED]2020-12-21 00:00:00* Test Item Value Reference Range Interpretation Comme nts GLUCOSE (test code = 2217) 122 MG/DL BUN (test code = 2208) 17 MG/DL CREATININE (test code = 2214) 1.01 MG/DL eGFR AMER. (test cod e = 50156) 69 ML/MIN/1.73 eGFR NON- AMER. (test code = 67594) 60 ML/MIN/1.73 CALC BUN/CREAT (test code = [...] (test code = 2219) 27 U/L Jonatan EasonCBC W/AUTO [id number] 00:00:00* Test Item Value Reference Range Interpretation [...] ABS NUCLEATED RBCS (test cod e = 47150) 0.00 K/UL CBC W/AUTO [id number] 00:00:00* Test Item Value Reference Range Interpretation [...] ABS NUCLEATED RBCS (test cod e = 56153) 0.00 K/UL Jonatan Elisabeth [id number] 00:00:00* Test Item Value Reference Range Interpretation Comme nts TSH, THIRD GENERATION (test code = 2821) 0.038 UIU/ML [id number] 00:00:00* Test Item Value Reference Range Interpretation Comme nts TSH, THIRD GENERATION (test code = 2821) 0.038 UIU/ML Jonatan F LandyCOMPREHENSIVE METABOLIC PANEL [ADDED]2020-12-21 00:00:00* Test Item Value Reference Range Interpretation Comme nts GLUCOSE (test code = 2217) 122 MG/DL BUN (test code = 2208) 17 MG/DL CREATININE (test code = 2214) 1.01 MG/DL eGFR AMER. (test cod e = 18023) 69 ML/MIN/1.73 eGFR NON- AMER. (test code = 46695) 60 ML/MIN/1.73 CALC BUN/CREAT (test code = [...] ALT (test code = 2219) 27 U/L COMPREHENSIVE METABOLIC PANEL [ADDED]2020-12-21 00:00:00* Test Item Value Reference Range Interpretation Comme nts GLUCOSE (test code = 2217) 122 MG/DL BUN (test code = 2208) 17 MG/DL CREATININE (test code = 2214) 1.01 MG/DL eGFR AMER. (test cod e = 10458) 69 ML/MIN/1.73 eGFR NON- AMER. (test code = 79118) 60 ML/MIN/1.73 CALC BUN/CREAT (test code = [...] code = 2219) 27 U/L Jonatan Barber [facility]yCRITTEND[facility] [id number] 00:00:00* Test Item Value Reference Range Interpretation [...] ABS NUCLEATED RBCS (test cod e = 75028) 0.00 K/UL Jonatan Barber [facility] W/AUTO [id number] 00:00:00* Test Item Value Reference Range Interpretation [...] ABS NUCLEATED RBCS (test cod e = 53996) 0.00 K/UL [id number] 00:00:00* Test Item Value Reference Range Interpretation Comme nts TSH, THIRD GENERATION (test code = 2821) 0.038 UIU/ML COMPREHENSIVE METABOLIC [id number] 00:00:00* Test Item Value Reference Range Interpretation Comme nts GLUCOSE (test code = 2345-7) 116 mg/dL UREA NITROGEN (BUN) (test code = 3094-0) 11 mg/dL CREATININE (test code = 2160-0) 0.62 mg/dL eGFR NON-AFR. ANGOLAN (test code = 04939-2) 97 mL/min/1.73m2 eGFR (test code = 45016-9) 113 mL/min/1.73m2 BUN/CREATININE RATIO (test code = 3097-3) NOT APPLICABLE (calc) SODIUM (test code = 2951-2) 137 mmol/L POTASSIUM (test code = 2823-3) 3.4 mmol/L CHLORIDE (test code = 2075-0) 101 mmol/L CARBON DIOXIDE (test code = 2027-9) 24 mmol/L CALCIUM (test code = 09530-5) 9.2 mg/dL PROTEIN, TOTAL (test code = 2885-2) 6.8 g/dL ALBUMIN (test code = 1751-7) 3.8 g/dL GLOBULIN (test code = 64388-3) 3.0 g/dL(calc) ALBUMIN/GLOBULIN RATIO (test code = 1759-0) 1.3 (calc) BILIRUBIN, TOTAL (test code = 1974-2) 0.8 mg/dL ALKALINE PHOSPHATASE (test code = 6768-6) 95 U/L AST (test code = 1920-8) 23 U/L ALT (test code = 1742-6) 14 U/L COMPREHENSIVE METABOLIC [id number] 00:00:00* Test Item Value Reference Range Interpretation Comme nts GLUCOSE (test code = 2345-7) 116 mg/dL UREA NITROGEN (BUN) (test code = 3094-0) 11 mg/dL CREATININE (test code = 2160-0) 0.62 mg/dL eGFR NON-AFR. ANGOLAN (test code = 70256-1) 97 mL/min/1.73m2 eGFR (test code = 18563-2) 113 mL/min/1.73m2 BUN/CREATININE RATIO (test code = 3097-3) NOT APPLICABLE (calc) SODIUM (test code = 2951-2) 137 mmol/L POTASSIUM (test code = 2823-3) 3.4 mmol/L CHLORIDE (test code = 2075-0) 101 mmol/L CARBON DIOXIDE (test code = 2027-9) 24 mmol/L CALCIUM (test code = 24077-5) 9.2 mg/dL PROTEIN, TOTAL (test code = 2885-2) 6.8 g/dL ALBUMIN (test code = 1751-7) 3.8 g/dL GLOBULIN (test code = 35008-0) 3.0 g/dL(calc) ALBUMIN/GLOBULIN RATIO (test code = 1759-0) 1.3 (calc) BILIRUBIN, TOTAL (test code = 1975-2) 0.8 mg/dL ALKALINE PHOSPHATASE (test code = 6768-6) 95 U/L AST (test code = 1920-8) 23 U/L ALT (test code = 1742-6) 14 U/L Jonatan Elisabeth [id number] 00:00:00* Test Item Value Reference Range Interpretation Comme nts TSH (test code = 3016-3) 0.05 mIU/L [id number] 00:00:00* Test Item Value Reference Range Interpretation [...] cells/uL ABSOLUTE BAND NEUTROPHILS (test code = 25794-7) DNR cells/uL ABSOLUTE METAMYELOCYTES (christopher t code = 09048-7) DNR cells/uL ABSOLUTE MYELOCYTES (test code = 01513-1) DNR cells/uL ABSOLUTE PROMYELOCYTES (test code = 11616-8) DNR cells/uL ABSOLUTE LYMPHOCYTES (test code = 731-0) 1588 cells/uL ABSOLUTE MONOCYTES (test cod e = 742-7) 648 cells/uL ABSOLUTE EOSINOPHILS (test code = 711-2) 221 cells/uL ABSOLUTE BASOPHILS (test cod e = 704-7) 71 cells/uL ABSOLUTE BLASTS (test code = 73494-2) DNR cells/uL ABSOLUTE NUCLEATED RBC (test code = 68713-0) DNR cells/uL NEUTROPHILS (test code = 770-8) 68 % BAND NEUTROPHILS (test code = 764-1) DNR % METAMYELOCYTES (test code = 740-1) DNR % MYELOCYTES (test code = 749-2) DNR % PROMYELOCYTES (test code = 783-1) DNR % LYMPHOCYTES (test code = 736-9) 20.1 % REACTIVE LYMPHOCYTES (test code = 43499-5) DNR % MONOCYTES (test code = 5905-5) 8.2 % EOSINOPHILS (test code = 713-8) 2.8 % BASOPHILS (test code = 706-2) 0.9 % BLASTS (test code = 709-6) DNR % NUCLEATED RBC (test code = 42556-0) DNR /100WBC COMMENT(S) (test code = 8251-1) DNR LIPID PANEL (REFL)2020-09-15 00:00:00* Test Item Value Reference Range Interpretation Comme nts CHOLESTEROL, TOTAL (test cod e = 2093-3) 202 mg/dL HDL CHOLESTEROL (test code = 2085-9) 65 mg/dL TRIGLYCERIDES (test code = 2571-8) 167 mg/dL LDL-CHOLESTEROL (test code = 90936-0) 109 mg/dL(calc) CHOL/HDLC RATIO (test code = 9830-1) 3.1 (calc) NON HDL CHOLESTEROL (test code = 55940-3) 137 mg/dL(calc) CBC (INCLUDES DIFF/PLT)2020-09-15 00:00:00* Test [...] cells/uL ABSOLUTE BAND NEUTROPHILS (test code = 25132-0) DNR cells/uL ABSOLUTE METAMYELOCYTES (christopher t code = 88456-4) DNR cells/uL ABSOLUTE MYELOCYTES (test code = 62767-6) DNR cells/uL ABSOLUTE PROMYELOCYTES (test code = 85053-4) DNR cells/uL ABSOLUTE LYMPHOCYTES (test code = 731-0) 1588 cells/uL ABSOLUTE MONOCYTES (test cod e = 742-7) 648 cells/uL ABSOLUTE EOSINOPHILS (test code = 711-2) 221 cells/uL ABSOLUTE BASOPHILS (test cod e = 704-7) 71 cells/uL ABSOLUTE BLASTS (test code = 88964-8) DNR cells/uL ABSOLUTE NUCLEATED RBC (test code = 87142-0) DNR cells/uL NEUTROPHILS (test code = 770-8) 68 % BAND NEUTROPHILS (test code = 764-1) DNR % METAMYELOCYTES (test code = 740-1) DNR % MYELOCYTES (test code = 749-2) DNR % PROMYELOCYTES (test code = 783-1) DNR % LYMPHOCYTES (test code = 736-9) 20.1 % REACTIVE LYMPHOCYTES (test code = 17547-1) DNR % MONOCYTES (test code = 5905-5) 8.2 % EOSINOPHILS (test code = 713-8) 2.8 % BASOPHILS (test code = 706-2) 0.9 % BLASTS (test code = 709-6) DNR % NUCLEATED RBC (test code = 20437-5) DNR /100WBC COMMENT(S) (test code = 8251-1) DNR Jonatan EasonLIPID PANEL (REFL)2020-09-15 00:00:00* Test Item Value Reference Range Interpretation Comme nts CHOLESTEROL, TOTAL (test cod e = 2093-3) 202 mg/dL HDL CHOLESTEROL (test code = 2085-9) 65 mg/dL TRIGLYCERIDES (test code = 2571-8) 167 mg/dL LDL-CHOLESTEROL (test code = 25319-3) 109 mg/dL(calc) CHOL/HDLC RATIO (test code = 9830-1) 3.1 (calc) NON HDL CHOLESTEROL (test code = 31476-1) 137 mg/dL(calc) Jonatan Elisabeth LandyCOMPREHENSIVE METABOLIC [id number] 00:00:00* Test Item Value Reference Range Interpretation Comme nts GLUCOSE (test code = 2345-7) 116 mg/dL UREA NITROGEN (BUN) (test code = 3094-0) 11 mg/dL CREATININE (test code = 2160-0) 0.62 mg/dL eGFR NON-AFR. ANGOLAN (test code = 05573-5) 97 mL/min/1.73m2 eGFR (test code = 88095-6) 113 mL/min/1.73m2 BUN/CREATININE RATIO (test code = 3097-3) NOT APPLICABLE (calc) SODIUM (test code = 2951-2) 137 mmol/L POTASSIUM (test code = 2823-3) 3.4 mmol/L CHLORIDE (test code = 2075-0) 101 mmol/L CARBON DIOXIDE (test code = 2027-9) 24 mmol/L CALCIUM (test code = 90520-5) 9.2 mg/dL PROTEIN, TOTAL (test code = 2885-2) 6.8 g/dL ALBUMIN (test code = 1751-7) 3.8 g/dL GLOBULIN (test code = 95192-0) 3.0 g/dL(calc) ALBUMIN/GLOBULIN RATIO (test code = 1759-0) 1.3 (calc) BILIRUBIN, TOTAL (test code = 1975-) 0.8 mg/dL ALKALINE PHOSPHATASE (test code = 6768-6) 95 U/L AST (test code = 1920-8) 23 U/L ALT (test code = 1742-6) 14 U/L [id number] 00:00:00* Test Item Value Reference Range Interpretation Comme nts TSH (test code = 3016-3) 0.05 mIU/L COMPREHENSIVE METABOLIC [id number] 00:00:00* Test Item Value Reference Range Interpretation Comme nts GLUCOSE (test code = 2345-7) 116 mg/dL UREA NITROGEN (BUN) (test code = 3094-0) 11 mg/dL CREATININE (test code = 2160-0) 0.62 mg/dL eGFR NON-AFR. ANGOLAN (test code = 03745-3) 97 mL/min/1.73m2 eGFR (test code = 62426-1) 113 mL/min/1.73m2 BUN/CREATININE RATIO (test code = 3097-3) NOT APPLICABLE (calc) SODIUM (test code = 2951-2) 137 mmol/L POTASSIUM (test code = 2823-3) 3.4 mmol/L CHLORIDE (test code = 2075-0) 101 mmol/L CARBON DIOXIDE (test code = 2027-9) 24 mmol/L CALCIUM (test code = 44813-1) 9.2 mg/dL PROTEIN, TOTAL (test code = 2885-2) 6.8 g/dL ALBUMIN (test code = 1751-7) 3.8 g/dL GLOBULIN (test code = 55461-0) 3.0 g/dL(calc) ALBUMIN/GLOBULIN RATIO (test code = 1759-0) 1.3 (calc) BILIRUBIN, TOTAL (test code = 1975-2) 0.8 mg/dL ALKALINE PHOSPHATASE (test code = 6768-6) 95 U/L AST (test code = 1920-8) 23 U/L ALT (test code = 1742-6) 14 U/L Jonatan Barber [facility] (INCLUDES DIFF/PLT)2020-09-15 00:00:00* Test Item Value Reference [...] cells/uL ABSOLUTE BAND NEUTROPHILS (test code = 33203-7) DNR cells/uL ABSOLUTE METAMYELOCYTES (christopher t code = 22082-1) DNR cells/uL ABSOLUTE MYELOCYTES (test code = 85050-5) DNR cells/uL ABSOLUTE PROMYELOCYTES (test code = 93077-0) DNR cells/uL ABSOLUTE LYMPHOCYTES (test code = 731-0) 1588 cells/uL ABSOLUTE MONOCYTES (test cod e = 742-7) 648 cells/uL ABSOLUTE EOSINOPHILS (test code = 711-2) 221 cells/uL ABSOLUTE BASOPHILS (test cod e = 704-7) 71 cells/uL ABSOLUTE BLASTS (test code = 71914-1) DNR cells/uL ABSOLUTE NUCLEATED RBC (test code = 19675-5) DNR cells/uL NEUTROPHILS (test code = 770-8) 68 % BAND NEUTROPHILS (test code = 764-1) DNR % METAMYELOCYTES (test code = 740-1) DNR % MYELOCYTES (test code = 749-2) DNR % PROMYELOCYTES (test code = 783-1) DNR % LYMPHOCYTES (test code = 736-9) 20.1 % REACTIVE LYMPHOCYTES (test code = 34407-6) DNR % MONOCYTES (test code = 5905-5) 8.2 % EOSINOPHILS (test code = 713-8) 2.8 % BASOPHILS (test code = 706-2) 0.9 % BLASTS (test code = 709-6) DNR % NUCLEATED RBC (test code = 03206-0) DNR /100WBC COMMENT(S) (test code = 8251-1) DNR [id number] 00:00:00* Test Item Value Reference Range Interpretation Comme nts TSH (test code = 3016-3) 0.05 mIU/L Jonatan Barber AustinCBC (INCLUDES DIFF/PLT)2020-09-15 00:00:00* Test Item Value Reference [...] cells/uL ABSOLUTE BAND NEUTROPHILS (test code = 55409-9) DNR cells/uL ABSOLUTE METAMYELOCYTES (christopher t code = 30141-4) DNR cells/uL ABSOLUTE MYELOCYTES (test code = 02799-1) DNR cells/uL ABSOLUTE PROMYELOCYTES (test code = 10125-3) DNR cells/uL ABSOLUTE LYMPHOCYTES (test code = 731-0) 1588 cells/uL ABSOLUTE MONOCYTES (test cod e = 742-7) 648 cells/uL ABSOLUTE EOSINOPHILS (test code = 711-2) 221 cells/uL ABSOLUTE BASOPHILS (test cod e = 704-7) 71 cells/uL ABSOLUTE BLASTS (test code = 72914-2) DNR cells/uL ABSOLUTE NUCLEATED RBC (test code = 22607-4) DNR cells/uL NEUTROPHILS (test code = 770-8) 68 % BAND NEUTROPHILS (test code = 764-1) DNR % METAMYELOCYTES (test code = 740-1) DNR % MYELOCYTES (test code = 749-2) DNR % PROMYELOCYTES (test code = 783-1) DNR % LYMPHOCYTES (test code = 736-9) 20.1 % REACTIVE LYMPHOCYTES (test code = 78474-2) DNR % MONOCYTES (test code = 5905-5) 8.2 % EOSINOPHILS (test code = 713-8) 2.8 % BASOPHILS (test code = 706-2) 0.9 % BLASTS (test code = 709-6) DNR % NUCLEATED RBC (test code = 98901-9) DNR /100WBC COMMENT(S) (test code = 8251-1) DNR Jonatan F AustinLIPID PANEL (REFL)2020-09-15 00:00:00* Test Item Value Reference Range Interpretation Comme nts CHOLESTEROL, TOTAL (test cod e = 2093-3) 202 mg/dL HDL CHOLESTEROL (test code = 2085-9) 65 mg/dL TRIGLYCERIDES (test code = 2571-8) 167 mg/dL LDL-CHOLESTEROL (test code = 01902-4) 109 mg/dL(calc) CHOL/HDLC RATIO (test code = 9830-1) 3.1 (calc) NON HDL CHOLESTEROL (test code = 57774-4) 137 mg/dL(calc) COMPREHENSIVE METABOLIC [id number] 00:00:00* Test Item Value Reference Range Interpretation Comme nts GLUCOSE (test code = 2345-7) 116 mg/dL UREA NITROGEN (BUN) (test code = 3094-0) 11 mg/dL CREATININE (test code = 2160-0) 0.62 mg/dL eGFR NON-AFR. ANGOLAN (test code = 97278-6) 97 mL/min/1.73m2 eGFR (test code = 31049-7) 113 mL/min/1.73m2 BUN/CREATININE RATIO (test code = 3097-3) NOT APPLICABLE (calc) SODIUM (test code = 2951-2) 137 mmol/L POTASSIUM (test code = 2823-3) 3.4 mmol/L CHLORIDE (test code = 2075-0) 101 mmol/L CARBON DIOXIDE (test code = 2027-9) 24 mmol/L CALCIUM (test code = 09947-8) 9.2 mg/dL PROTEIN, TOTAL (test code = 2885-2) 6.8 g/dL ALBUMIN (test code = 1751-7) 3.8 g/dL GLOBULIN (test code = 60226-2) 3.0 g/dL(calc) ALBUMIN/GLOBULIN RATIO (test code = 1759-0) 1.3 (calc) BILIRUBIN, TOTAL (test code = 1974-2) 0.8 mg/dL ALKALINE PHOSPHATASE (test code = 6768-6) 95 U/L AST (test code = 1920-8) 23 U/L ALT (test code = 1742-6) 14 U/L [id number] 00:00:00* Test Item Value Reference Range Interpretation [...] cells/uL ABSOLUTE BAND NEUTROPHILS (test code = 20862-2) DNR cells/uL ABSOLUTE METAMYELOCYTES (christopher t code = 40658-2) DNR cells/uL ABSOLUTE MYELOCYTES (test code = 21991-8) DNR cells/uL ABSOLUTE PROMYELOCYTES (test code = 30996-4) DNR cells/uL ABSOLUTE LYMPHOCYTES (test code = 731-0) 1588 cells/uL ABSOLUTE MONOCYTES (test cod e = 742-7) 648 cells/uL ABSOLUTE EOSINOPHILS (test code = 711-2) 221 cells/uL ABSOLUTE BASOPHILS (test cod e = 704-7) 71 cells/uL ABSOLUTE BLASTS (test code = 61598-8) DNR cells/uL ABSOLUTE NUCLEATED RBC (test code = 13387-0) DNR cells/uL NEUTROPHILS (test code = 770-8) 68 % BAND NEUTROPHILS (test code = 764-1) DNR % METAMYELOCYTES (test code = 740-1) DNR % MYELOCYTES (test code = 749-2) DNR % PROMYELOCYTES (test code = 783-1) DNR % LYMPHOCYTES (test code = 736-9) 20.1 % REACTIVE LYMPHOCYTES (test code = 65170-3) DNR % MONOCYTES (test code = 5905-5) 8.2 % EOSINOPHILS (test code = 713-8) 2.8 % BASOPHILS (test code = 706-2) 0.9 % BLASTS (test code = 709-6) DNR % NUCLEATED RBC (test code = 32192-5) DNR /100WBC COMMENT(S) (test code = 8251-1) DNR LIPID PANEL (REFL)2020-09-15 00:00:00* Test Item Value Reference Range Interpretation Comme nts CHOLESTEROL, TOTAL (test cod e = 2093-3) 202 mg/dL HDL CHOLESTEROL (test code = 2085-9) 65 mg/dL TRIGLYCERIDES (test code = 2571-8) 167 mg/dL LDL-CHOLESTEROL (test code = 44207-6) 109 mg/dL(calc) CHOL/HDLC RATIO (test code = 9830-1) 3.1 (calc) NON HDL CHOLESTEROL (test code = 79438-5) 137 mg/dL(calc) Jonatan EasonCOMPREHENSIVE METABOLIC [id number] 00:00:00* Test Item Value Reference Range Interpretation Comme nts GLUCOSE (test code = 2345-7) 116 mg/dL UREA NITROGEN (BUN) (test code = 3094-0) 11 mg/dL CREATININE (test code = 2160-0) 0.62 mg/dL eGFR NON-AFR. ANGOLAN (test code = 15299-3) 97 mL/min/1.73m2 eGFR (test code = 49256-6) 113 mL/min/1.73m2 BUN/CREATININE RATIO (test code = 3097-3) NOT APPLICABLE (calc) SODIUM (test code = 2951-2) 137 mmol/L POTASSIUM (test code = 2823-3) 3.4 mmol/L CHLORIDE (test code = 2075-0) 101 mmol/L CARBON DIOXIDE (test code = 8-9) 24 mmol/L CALCIUM (test code = 59380-9) 9.2 mg/dL PROTEIN, TOTAL (test code = 2885-2) 6.8 g/dL ALBUMIN (test code = 1751-7) 3.8 g/dL GLOBULIN (test code = 07973-2) 3.0 g/dL(calc) ALBUMIN/GLOBULIN RATIO (test code = 1759-0) 1.3 (calc) BILIRUBIN, TOTAL (test code = 1975-2) 0.8 mg/dL ALKALINE PHOSPHATASE (test code = 6768-6) 95 U/L AST (test code = 1920-8) 23 U/L ALT (test code = 1742-6) 14 U/L Jonatan F [id number] 00:00:00* Test Item Value Reference Range Interpretation Comme nts TSH (test code = 3016-3) 0.05 mIU/L Jonatan EasonLIPID PANEL (REFL)2020-09-15 00:00:00* Test Item Value Reference Range Interpretation Comme nts CHOLESTEROL, TOTAL (test cod e = 2093-3) 202 mg/dL HDL CHOLESTEROL (test code = 2085-9) 65 mg/dL TRIGLYCERIDES (test code = 2571-8) 167 mg/dL LDL-CHOLESTEROL (test code = 49707-0) 109 mg/dL(calc) CHOL/HDLC RATIO (test code = 9830-1) 3.1 (calc) NON HDL CHOLESTEROL (test code = 92615-1) 137 mg/dL(calc) CBC (INCLUDES DIFF/PLT)2020-09-15 00:00:00* Test [...] cells/uL ABSOLUTE BAND NEUTROPHILS (test code = 36478-2) DNR cells/uL ABSOLUTE METAMYELOCYTES (christopher t code = 55749-9) DNR cells/uL ABSOLUTE MYELOCYTES (test code = 95346-8) DNR cells/uL ABSOLUTE PROMYELOCYTES (test code = 43936-6) DNR cells/uL ABSOLUTE LYMPHOCYTES (test code = 731-0) 1588 cells/uL ABSOLUTE MONOCYTES (test cod e = 742-7) 648 cells/uL ABSOLUTE EOSINOPHILS (test code = 711-2) 221 cells/uL ABSOLUTE BASOPHILS (test cod e = 704-7) 71 cells/uL ABSOLUTE BLASTS (test code = 48947-5) DNR cells/uL ABSOLUTE NUCLEATED RBC (test code = 35843-6) DNR cells/uL NEUTROPHILS (test code = 770-8) 68 % BAND NEUTROPHILS (test code = 764-1) DNR % METAMYELOCYTES (test code = 740-1) DNR % MYELOCYTES (test code = 749-2) DNR % PROMYELOCYTES (test code = 783-1) DNR % LYMPHOCYTES (test code = 736-9) 20.1 % REACTIVE LYMPHOCYTES (test code = 45418-5) DNR % MONOCYTES (test code = 5905-5) 8.2 % EOSINOPHILS (test code = 713-8) 2.8 % BASOPHILS (test code = 706-2) 0.9 % BLASTS (test code = 709-6) DNR % NUCLEATED RBC (test code = 13862-1) DNR /100WBC COMMENT(S) (test code = 8251-1) DNR COMPREHENSIVE METABOLIC [id number] 00:00:00* Test Item Value Reference Range Interpretation Comme nts GLUCOSE (test code = 2345-7) 116 mg/dL UREA NITROGEN (BUN) (test code = 3094-0) 11 mg/dL CREATININE (test code = 2160-0) 0.62 mg/dL eGFR NON-AFR. ANGOLAN (test code = 78497-8) 97 mL/min/1.73m2 eGFR (test code = 65909-7) 113 mL/min/1.73m2 BUN/CREATININE RATIO (test code = 3097-3) NOT APPLICABLE (calc) SODIUM (test code = 2951-2) 137 mmol/L POTASSIUM (test code = 2823-3) 3.4 mmol/L CHLORIDE (test code = 2075-0) 101 mmol/L CARBON DIOXIDE (test code = 2027-9) 24 mmol/L CALCIUM (test code = 56031-9) 9.2 mg/dL PROTEIN, TOTAL (test code = 2885-2) 6.8 g/dL ALBUMIN (test code = 1751-7) 3.8 g/dL GLOBULIN (test code = 80575-0) 3.0 g/dL(calc) ALBUMIN/GLOBULIN RATIO (test code = [...] cells/uL ABSOLUTE BAND NEUTROPHILS (test code = 24740-2) DNR cells/uL ABSOLUTE METAMYELOCYTES (christopher t code = 76293-0) DNR cells/uL ABSOLUTE MYELOCYTES (test code = 26673-8) DNR cells/uL ABSOLUTE PROMYELOCYTES (test code = 76693-2) DNR cells/uL ABSOLUTE LYMPHOCYTES (test code = 731-0) 1588 cells/uL ABSOLUTE MONOCYTES (test cod e = 742-7) 648 cells/uL ABSOLUTE EOSINOPHILS (test code = 711-2) 221 cells/uL ABSOLUTE BASOPHILS (test cod e = 704-7) 71 cells/uL ABSOLUTE BLASTS (test code = 42625-6) DNR cells/uL ABSOLUTE NUCLEATED RBC (test code = 65992-9) DNR cells/uL NEUTROPHILS (test code = 770-8) 68 % BAND NEUTROPHILS (test code = 764-1) DNR % METAMYELOCYTES (test code = 740-1) DNR % MYELOCYTES (test code = 749-2) DNR % PROMYELOCYTES (test code = 783-1) DNR % LYMPHOCYTES (test code = 736-9) 20.1 % REACTIVE LYMPHOCYTES (test code = 01564-0) DNR % MONOCYTES (test code = 5905-5) 8.2 % EOSINOPHILS (test code = 713-8) 2.8 % BASOPHILS (test code = 706-2) 0.9 % BLASTS (test code = 709-6) DNR % NUCLEATED RBC (test code = 06271-8) DNR /100WBC COMMENT(S) (test code = 8251-1) DNR Jonatan Barber [id number] 00:00:00* Test Item Value Reference Range Interpretation Comme nts TSH (test code = 3016-3) 0.05 mIU/L LIPID PANEL (REFL)2020-09-15 00:00:00* Test Item Value Reference Range Interpretation Comme nts CHOLESTEROL, TOTAL (test cod e = 2093-3) 202 mg/dL HDL CHOLESTEROL (test code = 5-9) 65 mg/dL TRIGLYCERIDES (test code = 2571-8) 167 mg/dL LDL-CHOLESTEROL (test code = 93870-9) 109 mg/dL(calc) CHOL/HDLC RATIO (test code = 9830-1) 3.1 (calc) NON HDL CHOLESTEROL (test code = 95635-3) 137 mg/dL(calc) Jonatan EasonCOMPREHENSIVE METABOLIC [id number] 00:00:00* Test Item Value Reference Range Interpretation Comme nts GLUCOSE (test code = 2345-7) 116 mg/dL UREA NITROGEN (BUN) (test code = 3094-0) 11 mg/dL CREATININE (test code = 2160-0) 0.62 mg/dL eGFR NON-AFR. ANGOLAN (test code = 35468-9) 97 mL/min/1.73m2 eGFR (test code = 20412-1) 113 mL/min/1.73m2 BUN/CREATININE RATIO (test code = 3097-3) NOT APPLICABLE (calc) SODIUM (test code = 2951-2) 137 mmol/L POTASSIUM (test code = 2823-3) 3.4 mmol/L CHLORIDE (test code = 2075-0) 101 mmol/L CARBON DIOXIDE (test code = 2027-9) 24 mmol/L CALCIUM (test code = 45890-8) 9.2 mg/dL PROTEIN, TOTAL (test code = 2885-2) 6.8 g/dL ALBUMIN (test code = 1751-7) 3.8 g/dL GLOBULIN (test code = 16931-2) 3.0 g/dL(calc) ALBUMIN/GLOBULIN RATIO (test code = 1759-0) 1.3 (calc) BILIRUBIN, TOTAL (test code = 1975-2) 0.8 mg/dL ALKALINE PHOSPHATASE (test code = 6768-6) 95 U/L AST (test code = 1920-8) 23 U/L ALT (test code = 1742-6) 14 U/L Jonatan EasonCBC (INCLUDES DIFF/PLT)2020-09-15 00:00:00* Test Item [...] cells/uL ABSOLUTE BAND NEUTROPHILS (test code = 76121-3) DNR cells/uL ABSOLUTE METAMYELOCYTES (christopher t code = 98031-2) DNR cells/uL ABSOLUTE MYELOCYTES (test code = 90663-3) DNR cells/uL ABSOLUTE PROMYELOCYTES (test code = 39332-4) DNR cells/uL ABSOLUTE LYMPHOCYTES (test code = 731-0) 1588 cells/uL ABSOLUTE MONOCYTES (test cod e = 742-7) 648 cells/uL ABSOLUTE EOSINOPHILS (test code = 711-2) 221 cells/uL ABSOLUTE BASOPHILS (test cod e = 704-7) 71 cells/uL ABSOLUTE BLASTS (test code = 66385-0) DNR cells/uL ABSOLUTE NUCLEATED RBC (test code = 86831-8) DNR cells/uL NEUTROPHILS (test code = 770-8) 68 % BAND NEUTROPHILS (test code = 764-1) DNR % METAMYELOCYTES (test code = 740-1) DNR % MYELOCYTES (test code = 749-2) DNR % PROMYELOCYTES (test code = 783-1) DNR % LYMPHOCYTES (test code = 736-9) 20.1 % REACTIVE LYMPHOCYTES (test code = 55268-2) DNR % MONOCYTES (test code = 5905-5) 8.2 % EOSINOPHILS (test code = 713-8) 2.8 % BASOPHILS (test code = 706-2) 0.9 % BLASTS (test code = 709-6) DNR % NUCLEATED RBC (test code = 09230-2) DNR /100WBC COMMENT(S) (test code = 8251-1) DNR CBC (INCLUDES DIFF/PLT)2020-09-15 00:00:00* Test Item Value [...] cells/uL ABSOLUTE BAND NEUTROPHILS (test code = 58917-7) DNR cells/uL ABSOLUTE METAMYELOCYTES (christopher t code = 31364-8) DNR cells/uL ABSOLUTE MYELOCYTES (test code = 80123-3) DNR cells/uL ABSOLUTE PROMYELOCYTES (test code = 95904-7) DNR cells/uL ABSOLUTE LYMPHOCYTES (test code = 731-0) 1588 cells/uL ABSOLUTE MONOCYTES (test cod e = 742-7) 648 cells/uL ABSOLUTE EOSINOPHILS (test code = 711-2) 221 cells/uL ABSOLUTE BASOPHILS (test cod e = 704-7) 71 cells/uL ABSOLUTE BLASTS (test code = 12141-0) DNR cells/uL ABSOLUTE NUCLEATED RBC (test code = 29432-9) DNR cells/uL NEUTROPHILS (test code = 770-8) 68 % BAND NEUTROPHILS (test code = 764-1) DNR % METAMYELOCYTES (test code = 740-1) DNR % MYELOCYTES (test code = 749-2) DNR % PROMYELOCYTES (test code = 783-1) DNR % LYMPHOCYTES (test code = 736-9) 20.1 % REACTIVE LYMPHOCYTES (test code = 12815-7) DNR % MONOCYTES (test code = 5905-5) 8.2 % EOSINOPHILS (test code = 713-8) 2.8 % BASOPHILS (test code = 706-2) 0.9 % BLASTS (test code = 709-6) DNR % NUCLEATED RBC (test code = 02311-4) DNR /100WBC COMMENT(S) (test code = 8251-1) DNR Jonatan [id number] 00:00:00* Test Item Value Reference Range Interpretation Comme nts TSH (test code = 3016-3) 0.05 mIU/L Jonatan Barber AustinLIPID PANEL (REFL)2020-09-15 00:00:00* Test Item Value Reference Range Interpretation Comme nts CHOLESTEROL, TOTAL (test cod e = 2093-3) 202 mg/dL HDL CHOLESTEROL (test code = 2085-9) 65 mg/dL TRIGLYCERIDES (test code = 2571-8) 167 mg/dL LDL-CHOLESTEROL (test code = 38360-7) 109 mg/dL(calc) CHOL/HDLC RATIO (test code = 9830-1) 3.1 (calc) NON HDL CHOLESTEROL (test code = 28897-5) 137 mg/dL(calc) COMPREHENSIVE METABOLIC [id number] 00:00:00* Test Item Value Reference Range Interpretation Comme nts GLUCOSE (test code = 2345-7) 116 mg/dL UREA NITROGEN (BUN) (test code = 3094-0) 11 mg/dL CREATININE (test code = 2160-0) 0.62 mg/dL eGFR NON-AFR. ANGOLAN (test code = 48599-9) 97 mL/min/1.73m2 eGFR (test code = 59364-8) 113 mL/min/1.73m2 BUN/CREATININE RATIO (test code = 3097-3) NOT APPLICABLE (calc) SODIUM (test code = 2951-2) 137 mmol/L POTASSIUM (test code = 2823-3) 3.4 mmol/L CHLORIDE (test code = 2075-0) 101 mmol/L CARBON DIOXIDE (test code = 2027-9) 24 mmol/L CALCIUM (test code = 50323-0) 9.2 mg/dL PROTEIN, TOTAL (test code = 2885-2) 6.8 g/dL ALBUMIN (test code = 1751-7) 3.8 g/dL GLOBULIN (test code = 15372-6) 3.0 g/dL(calc) ALBUMIN/GLOBULIN RATIO (test code = [...] cells/uL ABSOLUTE BAND NEUTROPHILS (test code = 34976-3) DNR cells/uL ABSOLUTE METAMYELOCYTES (christopher t code = 30478-0) DNR cells/uL ABSOLUTE MYELOCYTES (test code = 83925-1) DNR cells/uL ABSOLUTE PROMYELOCYTES (test code = 77724-2) DNR cells/uL ABSOLUTE LYMPHOCYTES (test code = 731-0) 1588 cells/uL ABSOLUTE MONOCYTES (test cod e = 742-7) 648 cells/uL ABSOLUTE EOSINOPHILS (test code = 711-2) 221 cells/uL ABSOLUTE BASOPHILS (test cod e = 704-7) 71 cells/uL ABSOLUTE BLASTS (test code = 91601-9) DNR cells/uL ABSOLUTE NUCLEATED RBC (test code = 43598-6) DNR cells/uL NEUTROPHILS (test code = 770-8) 68 % BAND NEUTROPHILS (test code = 764-1) DNR % METAMYELOCYTES (test code = 740-1) DNR % MYELOCYTES (test code = 749-2) DNR % PROMYELOCYTES (test code = 783-1) DNR % LYMPHOCYTES (test code = 736-9) 20.1 % REACTIVE LYMPHOCYTES (test code = 14693-6) DNR % MONOCYTES (test code = 5905-5) 8.2 % EOSINOPHILS (test code = 713-8) 2.8 % BASOPHILS (test code = 706-2) 0.9 % BLASTS (test code = 709-6) DNR % NUCLEATED RBC (test code = 56338-5) DNR /100WBC COMMENT(S) (test code = 8251-1) DNR Jonatan [id number] 00:00:00* Test Item Value Reference Range Interpretation Comme nts TSH (test code = 3016-3) 0.05 mIU/L LIPID PANEL (REFL)2020-09-15 00:00:00* Test Item Value Reference Range Interpretation Comme nts CHOLESTEROL, TOTAL (test cod e = 2093-3) 202 mg/dL HDL CHOLESTEROL (test code = 2085-9) 65 mg/dL TRIGLYCERIDES (test code = 2571-8) 167 mg/dL LDL-CHOLESTEROL (test code = 49074-9) 109 mg/dL(calc) CHOL/HDLC RATIO (test code = 9830-1) 3.1 (calc) NON HDL CHOLESTEROL (test code = 60750-2) 137 mg/dL(calc) Jonatan EasonCOMPREHENSIVE METABOLIC [id number] 00:00:00* Test Item Value Reference Range Interpretation Comme nts GLUCOSE (test code = 2345-7) 116 mg/dL UREA NITROGEN (BUN) (test code = 3094-0) 11 mg/dL CREATININE (test code = 2160-0) 0.62 mg/dL eGFR NON-AFR. ANGOLAN (test code = 15770-5) 97 mL/min/1.73m2 eGFR (test code = 75897-0) 113 mL/min/1.73m2 BUN/CREATININE RATIO (test code = 3097-3) NOT APPLICABLE (calc) SODIUM (test code = 2951-2) 137 mmol/L POTASSIUM (test code = 2823-3) 3.4 mmol/L CHLORIDE (test code = 2075-0) 101 mmol/L CARBON DIOXIDE (test code = 2028-) 24 mmol/L CALCIUM (test code = 19154-1) 9.2 mg/dL PROTEIN, TOTAL (test code = 2885-2) 6.8 g/dL ALBUMIN (test code = 1751-7) 3.8 g/dL GLOBULIN (test code = 34799-9) 3.0 g/dL(calc) ALBUMIN/GLOBULIN RATIO (test code = 1759-0) 1.3 (calc) BILIRUBIN, TOTAL (test code = 1974-) 0.8 mg/dL ALKALINE PHOSPHATASE (test code = 6768-6) 95 U/L AST (test code = 1920-8) 23 U/L ALT (test code = 1742-6) 14 U/L [facility]atan Barber [facility] ([facility]CLUD[facility]FF/PLT)2020-09-15 00:00:00* Test Item Value Reference [...] cells/uL ABSOLUTE BAND NEUTROPHILS (test code = 11499-9) DNR cells/uL ABSOLUTE METAMYELOCYTES (christopher t code = 67898-6) DNR cells/uL ABSOLUTE MYELOCYTES (test code = 61736-9) DNR cells/uL ABSOLUTE PROMYELOCYTES (test code = 64739-7) DNR cells/uL ABSOLUTE LYMPHOCYTES (test code = 731-0) 1588 cells/uL ABSOLUTE MONOCYTES (test cod e = 742-7) 648 cells/uL ABSOLUTE EOSINOPHILS (test code = 711-2) 221 cells/uL ABSOLUTE BASOPHILS (test cod e = 704-7) 71 cells/uL ABSOLUTE BLASTS (test code = 52635-3) DNR cells/uL ABSOLUTE NUCLEATED RBC (test code = 36525-6) DNR cells/uL NEUTROPHILS (test code = 770-8) 68 % BAND NEUTROPHILS (test code = 764-1) DNR % METAMYELOCYTES (test code = 740-1) DNR % MYELOCYTES (test code = 749-2) DNR % PROMYELOCYTES (test code = 783-1) DNR % LYMPHOCYTES (test code = 736-9) 20.1 % REACTIVE LYMPHOCYTES (test code = 54076-3) DNR % MONOCYTES (test code = 5905-5) 8.2 % EOSINOPHILS (test code = 713-8) 2.8 % BASOPHILS (test code = 706-2) 0.9 % BLASTS (test code = 709-6) DNR % NUCLEATED RBC (test code = 27681-7) DNR /100WBC COMMENT(S) (test code = 8251-1) DNR Jonatan [id number] 00:00:00* Test Item Value Reference Range Interpretation Comme nts TSH (test code = 3016-3) 0.05 mIU/L Jonatan Barber AustinLIPID PANEL (REFL)2020-09-15 00:00:00* Test Item Value Reference Range Interpretation Comme nts CHOLESTEROL, TOTAL (test cod e = 2093-3) 202 mg/dL HDL CHOLESTEROL (test code = 2085-9) 65 mg/dL TRIGLYCERIDES (test code = 2571-8) 167 mg/dL LDL-CHOLESTEROL (test code = 91768-1) 109 mg/dL(calc) CHOL/HDLC RATIO (test code = 9830-1) 3.1 (calc) NON HDL CHOLESTEROL (test code = 39738-4) 137 mg/dL(calc) Jonatan Barber NyeCOMPREHENSIVE METABOLIC [id number] 00:00:00* Test Item Value Reference Range Interpretation Comme nts GLUCOSE (test code = 2345-7) 116 mg/dL UREA NITROGEN (BUN) (test code = 3094-0) 11 mg/dL CREATININE (test code = 2160-0) 0.62 mg/dL eGFR NON-AFR. ANGOLAN (test code = 20770-5) 97 mL/min/1.73m2 eGFR (test code = 79183-6) 113 mL/min/1.73m2 BUN/CREATININE RATIO (test code = 3097-3) NOT APPLICABLE (calc) SODIUM (test code = 2951-2) 137 mmol/L POTASSIUM (test code = 2823-3) 3.4 mmol/L CHLORIDE (test code = 2075-0) 101 mmol/L CARBON DIOXIDE (test code = 2027-9) 24 mmol/L CALCIUM (test code = 66607-8) 9.2 mg/dL PROTEIN, TOTAL (test code = 2885-2) 6.8 g/dL ALBUMIN (test code = 1751-7) 3.8 g/dL GLOBULIN (test code = 36717-7) 3.0 g/dL(calc) ALBUMIN/GLOBULIN RATIO (test code = 1759-0) 1.3 (calc) BILIRUBIN, TOTAL (test code = 1975-2) 0.8 mg/dL ALKALINE PHOSPHATASE (test code = 6768-6) 95 U/L AST (test code = 1920-8) 23 U/L ALT (test code = 1742-6) 14 U/L Jonatan [id number] 00:00:00* Test Item Value Reference Range Interpretation Comme [facility] TSH (test code = 3016-3) 0.05 [...] cells/uL ABSOLUTE BAND NEUTROPHILS (test code = 41998-3) DNR cells/uL ABSOLUTE METAMYELOCYTES (christopher t code = 20065-4) DNR cells/uL ABSOLUTE MYELOCYTES (test code = 67804-2) DNR cells/uL ABSOLUTE PROMYELOCYTES (test code = 93169-1) DNR cells/uL ABSOLUTE LYMPHOCYTES (test code = 731-0) 1588 cells/uL ABSOLUTE MONOCYTES (test cod e = 742-7) 648 cells/uL ABSOLUTE EOSINOPHILS (test code = 711-2) 221 cells/uL ABSOLUTE BASOPHILS (test cod e = 704-7) 71 cells/uL ABSOLUTE BLASTS (test code = 38433-2) DNR cells/uL ABSOLUTE NUCLEATED RBC (test code = 88187-9) DNR cells/uL NEUTROPHILS (test code = 770-8) 68 % BAND NEUTROPHILS (test code = 764-1) DNR % METAMYELOCYTES (test code = 740-1) DNR % MYELOCYTES (test code = 749-2) DNR % PROMYELOCYTES (test code = 783-1) DNR % LYMPHOCYTES (test code = 736-9) 20.1 % REACTIVE LYMPHOCYTES (test code = 30405-0) DNR % MONOCYTES (test code = 5905-5) 8.2 % EOSINOPHILS (test code = 713-8) 2.8 % BASOPHILS (test code = 706-2) 0.9 % BLASTS (test code = 709-6) DNR % NUCLEATED RBC (test code = 79485-8) DNR /100WBC COMMENT(S) (test code = 8251-1) DNR Jonatan EasonLIPID PANEL (REFL)2020-09-15 00:00:00* Test Item Value Reference Range Interpretation Comme nts CHOLESTEROL, TOTAL (test cod e = 2093-3) 202 mg/dL HDL CHOLESTEROL (test code = 2085-9) 65 mg/dL TRIGLYCERIDES (test code = 2571-8) 167 mg/dL LDL-CHOLESTEROL (test code = 95026-7) 109 mg/dL(calc) CHOL/HDLC RATIO (test code = 9830-1) 3.1 (calc) NON HDL CHOLESTEROL (test code = 10637-4) 137 mg/dL(calc) Jonatan EasonCOMPREHENSIVE METABOLIC [id number] 00:00:00* Test Item Value Reference Range Interpretation Comme nts GLUCOSE (test code = 2345-7) 116 mg/dL UREA NITROGEN (BUN) (test code = 3094-0) 11 mg/dL CREATININE (test code = 2160-0) 0.62 mg/dL eGFR NON-AFR. ANGOLAN (test code = 37281-2) 97 mL/min/1.73m2 eGFR (test code = 04664-8) 113 mL/min/1.73m2 BUN/CREATININE RATIO (test code = 3097-3) NOT APPLICABLE (calc) SODIUM (test code = 2951-2) 137 mmol/L POTASSIUM (test code = 2823-3) 3.4 mmol/L CHLORIDE (test code = 2075-0) 101 mmol/L CARBON DIOXIDE (test code = 2027-9) 24 mmol/L CALCIUM (test code = 10513-5) 9.2 mg/dL PROTEIN, TOTAL (test code = 2885-2) 6.8 g/dL ALBUMIN (test code = 1751-7) 3.8 g/dL GLOBULIN (test code = 06278-5) 3.0 g/dL(calc) ALBUMIN/GLOBULIN RATIO (test code = 1759-0) 1.3 (calc) BILIRUBIN, TOTAL (test code = 1975-2) 0.8 mg/dL ALKALINE PHOSPHATASE (test code = 6768-6) 95 U/L AST (test code = 1920-8) 23 U/L ALT (test code = 1742-6) 14 U/L Jonatan [id number] 00:00:00* Test Item Value Reference Range Interpretation Comme nts TSH (test code = 3016-3) 0.05 mIU/L Jonatan EasonLIPID PANEL (REFL)2020-09-15 00:00:00* Test Item Value Reference Range Interpretation Comme nts CHOLESTEROL, TOTAL (test cod e = 2093-3) 202 mg/dL HDL CHOLESTEROL (test code = 2085-9) 65 mg/dL TRIGLYCERIDES (test code = 2571-8) 167 mg/dL LDL-CHOLESTEROL (test code = 46857-9) 109 mg/dL(calc) CHOL/HDLC RATIO (test code = 9830-1) 3.1 (calc) NON HDL CHOLESTEROL (test code = 11072-2) 137 mg/dL(calc) Jonatan EasonCOMPREHENSIVE METABOLIC [id number] 00:00:00* Test Item Value Reference Range Interpretation Comme nts GLUCOSE (test code = 2345-7) 116 mg/dL UREA NITROGEN (BUN) (test code = 3094-0) 11 mg/dL CREATININE (test code = 2160-0) 0.62 mg/dL eGFR NON-AFR. ANGOLAN (test code = 77038-9) 97 mL/min/1.73m2 eGFR (test code = 69733-7) 113 mL/min/1.73m2 BUN/CREATININE RATIO (test code = 3097-3) NOT APPLICABLE (calc) SODIUM (test code = 2951-2) 137 mmol/L POTASSIUM (test code = 2823-3) 3.4 mmol/L CHLORIDE (test code = 2075-0) 101 mmol/L CARBON DIOXIDE (test code = 2027-9) 24 mmol/L CALCIUM (test code = 04819-4) 9.2 mg/dL PROTEIN, TOTAL (test code = 2885-2) 6.8 g/dL ALBUMIN (test code = 1751-7) 3.8 g/dL GLOBULIN (test code = 20164-2) 3.0 g/dL(calc) ALBUMIN/GLOBULIN RATIO (test code = 1759-0) 1.3 (calc) BILIRUBIN, TOTAL (test code = 1975-2) 0.8 mg/dL ALKALINE PHOSPHATASE (test code = 6768-6) 95 U/L AST (test code = 1920-8) 23 U/L ALT (test code = 1742-6) 14 U/L Jonatan [id number] 00:00:00* Test Item Value Reference Range Interpretation Comme alber TSH (test code = 3016-3) 0.05 mIU/L [...] cells/uL ABSOLUTE BAND NEUTROPHILS (test code = 57074-4) DNR cells/uL ABSOLUTE METAMYELOCYTES (christopher t code = 22238-3) DNR cells/uL ABSOLUTE MYELOCYTES (test code = 92361-4) DNR cells/uL ABSOLUTE PROMYELOCYTES (test code = 56080-8) DNR cells/uL ABSOLUTE LYMPHOCYTES (test code = 731-0) 1588 cells/uL ABSOLUTE MONOCYTES (test cod e = 742-7) 648 cells/uL ABSOLUTE EOSINOPHILS (test code = 711-2) 221 cells/uL ABSOLUTE BASOPHILS (test cod e = 704-7) 71 cells/uL ABSOLUTE BLASTS (test code = 94052-4) DNR cells/uL ABSOLUTE NUCLEATED RBC (test code = 36605-4) DNR cells/uL NEUTROPHILS (test code = 770-8) 68 % BAND NEUTROPHILS (test code = 764-1) DNR % METAMYELOCYTES (test code = 740-1) DNR % MYELOCYTES (test code = 749-2) DNR % PROMYELOCYTES (test code = 783-1) DNR % LYMPHOCYTES (test code = 736-9) 20.1 % REACTIVE LYMPHOCYTES (test code = 18863-8) DNR % MONOCYTES (test code = 5905-5) 8.2 % EOSINOPHILS (test code = 713-8) 2.8 % BASOPHILS (test code = 706-2) 0.9 % BLASTS (test code = 709-6) DNR % NUCLEATED RBC (test code = 12254-8) DNR /100WBC COMMENT(S) (test code = 8251-1) DNR Jonatan Barber AustinLIPID PANEL (REFL)2020-09-15 00:00:00* Test Item Value Reference Range Interpretation Comme nts CHOLESTEROL, TOTAL (test cod e = 2093-3) 202 mg/dL HDL CHOLESTEROL (test code = 2085-9) 65 mg/dL TRIGLYCERIDES (test code = 2571-8) 167 mg/dL LDL-CHOLESTEROL (test code = 68278-3) 109 mg/dL(calc) CHOL/HDLC RATIO (test code = 9830-1) 3.1 (calc) NON HDL CHOLESTEROL (test code = 32064-6) 137 mg/dL(calc) Jonatan EasonCOMPREHENSIVE METABOLIC [id number] 00:00:00* Test Item Value Reference Range Interpretation Comme nts GLUCOSE (test code = 2345-7) 116 mg/dL UREA NITROGEN (BUN) (test code = 3094-0) 11 mg/dL CREATININE (test code = 2160-0) 0.62 mg/dL eGFR NON-AFR. ANGOLAN (test code = 92002-1) 97 mL/min/1.73m2 eGFR (test code = 28477-1) 113 mL/min/1.73m2 BUN/CREATININE RATIO (test code = 3097-3) NOT APPLICABLE (calc) SODIUM (test code = 2951-2) 137 mmol/L POTASSIUM (test code = 2823-3) 3.4 mmol/L CHLORIDE (test code = 2075-0) 101 mmol/L CARBON DIOXIDE (test code = 2027-9) 24 mmol/L CALCIUM (test code = 70375-8) 9.2 mg/dL PROTEIN, TOTAL (test code = 2885-2) 6.8 g/dL ALBUMIN (test code = 1751-7) 3.8 g/dL GLOBULIN (test code = 44124-0) 3.0 g/dL(calc) ALBUMIN/GLOBULIN RATIO (test code = 1759-0) 1.3 (calc) BILIRUBIN, TOTAL (test code = 1975-2) 0.8 mg/dL ALKALINE PHOSPHATASE (test code = 6768-6) 95 U/L AST (test code = 1920-8) 23 U/L ALT (test code = 1742-6) 14 U/L Jonatan [id number] 00:00:00* Test Item Value Reference Range Interpretation [...] cells/uL ABSOLUTE BAND NEUTROPHILS (test code = 02602-5) DNR cells/uL ABSOLUTE METAMYELOCYTES (christopher t code = 82966-6) DNR cells/uL ABSOLUTE MYELOCYTES (test code = 36449-8) DNR cells/uL ABSOLUTE PROMYELOCYTES (test code = 95631-6) DNR cells/uL ABSOLUTE LYMPHOCYTES (test code = 731-0) 1588 cells/uL ABSOLUTE MONOCYTES (test cod e = 742-7) 648 cells/uL ABSOLUTE EOSINOPHILS (test code = 711-2) 221 cells/uL ABSOLUTE BASOPHILS (test cod e = 704-7) 71 cells/uL ABSOLUTE BLASTS (test code = 82017-7) DNR cells/uL ABSOLUTE NUCLEATED RBC (test code = 36107-0) DNR cells/uL NEUTROPHILS (test code = 770-8) 68 % BAND NEUTROPHILS (test code = 764-1) DNR % METAMYELOCYTES (test code = 740-1) DNR % MYELOCYTES (test code = 749-2) DNR % PROMYELOCYTES (test code = 783-1) DNR % LYMPHOCYTES (test code = 736-9) 20.1 % REACTIVE LYMPHOCYTES (test code = 03090-2) DNR % MONOCYTES (test code = 5905-5) 8.2 % EOSINOPHILS (test code = 713-8) 2.8 % BASOPHILS (test code = 706-2) 0.9 % BLASTS (test code = 709-6) DNR % NUCLEATED RBC (test code = 05346-4) DNR /100WBC COMMENT(S) (test code = 8251-1) DNR Jonatan Barber AustinLIPID PANEL (REFL)2020-09-15 00:00:00* Test Item Value Reference Range Interpretation Comme nts CHOLESTEROL, TOTAL (test cod e = 2093-3) 202 mg/dL HDL CHOLESTEROL (test code = 2085-9) 65 mg/dL TRIGLYCERIDES (test code = 2571-8) 167 mg/dL LDL-CHOLESTEROL (test code = 50590-4) 109 mg/dL(calc) CHOL/HDLC RATIO (test code = 9830-1) 3.1 (calc) NON HDL CHOLESTEROL (test code = 86166-4) 137 mg/dL(calc) Jonatan Barber AustinLIPID PANEL (REFL)2020-09-15 00:00:00* Test Item Value Reference Range Interpretation Comme nts CHOLESTEROL, TOTAL (test cod e = 2093-3) 202 mg/dL HDL CHOLESTEROL (test code = 2085-9) 65 mg/dL TRIGLYCERIDES (test code = 2571-8) 167 mg/dL LDL-CHOLESTEROL (test code = 72803-9) 109 mg/dL(calc) CHOL/HDLC RATIO (test code = 9830-1) 3.1 (calc) NON HDL CHOLESTEROL (test code = 89054-2) 137 mg/dL(calc) COMPREHENSIVE METABOLIC [id number] 00:00:00* Test Item Value Reference Range Interpretation Comme nts GLUCOSE (test code = 2345-7) 116 mg/dL UREA NITROGEN (BUN) (test code = 3094-0) 11 mg/dL CREATININE (test code = 2160-0) 0.62 mg/dL eGFR NON-AFR. ANGOLAN (test code = 85182-5) 97 mL/min/1.73m2 eGFR (test code = 57430-1) 113 mL/min/1.73m2 BUN/CREATININE RATIO (test code = 3097-3) NOT APPLICABLE (calc) SODIUM (test code = 2951-2) 137 mmol/L POTASSIUM (test code = 2823-3) 3.4 mmol/L CHLORIDE (test code = 2075-0) 101 mmol/L CARBON DIOXIDE (test code = 2027-) 24 mmol/L CALCIUM (test code = 14913-5) 9.2 mg/dL PROTEIN, TOTAL (test code = 2885-2) 6.8 g/dL ALBUMIN (test code = 1751-7) 3.8 g/dL GLOBULIN (test code = 59608-6) 3.0 g/dL(calc) ALBUMIN/GLOBULIN RATIO (test code = 1759-0) 1.3 (calc) BILIRUBIN, TOTAL (test code = 1974-) 0.8 mg/dL ALKALINE PHOSPHATASE (test code = 6768-6) 95 U/L AST (test code = 1920-8) 23 U/L ALT (test code = 1742-6) 14 U/L Jonatan Barber LandyCOMPREHENSIVE METABOLIC [id number] 00:00:00* Test Item Value Reference Range Interpretation Comme nts GLUCOSE (test code = 2345-7) 116 mg/dL UREA NITROGEN (BUN) (test code = 3094-0) 11 mg/dL CREATININE (test code = 2160-0) 0.62 mg/dL eGFR NON-AFR. ANGOLAN (test code = 27638-8) 97 mL/min/1.73m2 eGFR (test code = 01829-8) 113 mL/min/1.73m2 BUN/CREATININE RATIO (test code = 3097-3) NOT APPLICABLE (calc) SODIUM (test code = 2951-2) 137 mmol/L POTASSIUM (test code = 2823-3) 3.4 mmol/L CHLORIDE (test code = 2075-0) 101 mmol/L CARBON DIOXIDE (test code = 2027-) 24 mmol/L CALCIUM (test code = 52776-0) 9.2 mg/dL PROTEIN, TOTAL (test code = 2885-2) 6.8 g/dL ALBUMIN (test code = 1751-7) 3.8 g/dL GLOBULIN (test code = 81430-7) 3.0 g/dL(calc) ALBUMIN/GLOBULIN RATIO (test code = 1759-0) 1.3 (calc) BILIRUBIN, TOTAL (test code = 1974-) 0.8 mg/dL ALKALINE PHOSPHATASE (test code = 6768-6) 95 U/L AST (test code = 1920-8) 23 U/L ALT (test code = 1742-6) 14 U/L [id number] 00:00:00* Test Item Value Reference Range Interpretation [...] cells/uL ABSOLUTE BAND NEUTROPHILS (test code = 09784-9) DNR cells/uL ABSOLUTE METAMYELOCYTES (christopher t code = 57786-3) DNR cells/uL ABSOLUTE MYELOCYTES (test code = 06827-7) DNR cells/uL ABSOLUTE PROMYELOCYTES (test code = 55815-9) DNR cells/uL ABSOLUTE LYMPHOCYTES (test code = 731-0) 1588 cells/uL ABSOLUTE MONOCYTES (test cod e = 742-7) 648 cells/uL ABSOLUTE EOSINOPHILS (test code = 711-2) 221 cells/uL ABSOLUTE BASOPHILS (test cod e = 704-7) 71 cells/uL ABSOLUTE BLASTS (test code = 11804-6) DNR cells/uL ABSOLUTE NUCLEATED RBC (test code = 69240-9) DNR cells/uL NEUTROPHILS (test code = 770-8) 68 % BAND NEUTROPHILS (test code = 764-1) DNR % METAMYELOCYTES (test code = 740-1) DNR % MYELOCYTES (test code = 749-2) DNR % PROMYELOCYTES (test code = 783-1) DNR % LYMPHOCYTES (test code = 736-9) 20.1 % REACTIVE LYMPHOCYTES (test code = 97289-1) DNR % MONOCYTES (test code = 5905-5) 8.2 % EOSINOPHILS (test code = 713-8) 2.8 % BASOPHILS (test code = 706-2) 0.9 % BLASTS (test code = 709-6) DNR % NUCLEATED RBC (test code = 10287-5) DNR /100WBC COMMENT(S) (test code = 8251-1) DNR LIPID PANEL (REFL)2020-09-15 00:00:00* Test Item Value Reference Range Interpretation Comme nts CHOLESTEROL, TOTAL (test cod e = 2093-3) 202 mg/dL HDL CHOLESTEROL (test code = 2085-9) 65 mg/dL TRIGLYCERIDES (test code = 2571-8) 167 mg/dL LDL-CHOLESTEROL (test code = 63526-5) 109 mg/dL(calc) CHOL/HDLC RATIO (test code = 9830-1) 3.1 (calc) NON HDL CHOLESTEROL (test code = 27615-3) 137 mg/dL(calc) CBC (INCLUDES DIFF/PLT)2020-09-15 00:00:00* Test [...] cells/uL ABSOLUTE BAND NEUTROPHILS (test code = 23025-6) DNR cells/uL ABSOLUTE METAMYELOCYTES (christopher t code = 30387-8) DNR cells/uL ABSOLUTE MYELOCYTES (test code = 71245-8) DNR cells/uL ABSOLUTE PROMYELOCYTES (test code = 19976-3) DNR cells/uL ABSOLUTE LYMPHOCYTES (test code = 731-0) 1588 cells/uL ABSOLUTE MONOCYTES (test cod e = 742-7) 648 cells/uL ABSOLUTE EOSINOPHILS (test code = 711-2) 221 cells/uL ABSOLUTE BASOPHILS (test cod e = 704-7) 71 cells/uL ABSOLUTE BLASTS (test code = 74001-3) DNR cells/uL ABSOLUTE NUCLEATED RBC (test code = 48090-2) DNR cells/uL NEUTROPHILS (test code = 770-8) 68 % BAND NEUTROPHILS (test code = 764-1) DNR % METAMYELOCYTES (test code = 740-1) DNR % MYELOCYTES (test code = 749-2) DNR % PROMYELOCYTES (test code = 783-1) DNR % LYMPHOCYTES (test code = 736-9) 20.1 % REACTIVE LYMPHOCYTES (test code = 85865-1) DNR % MONOCYTES (test code = 5905-5) 8.2 % EOSINOPHILS (test code = 713-8) 2.8 % BASOPHILS (test code = 706-2) 0.9 % BLASTS (test code = 709-6) DNR % NUCLEATED RBC (test code = 85393-0) DNR /100WBC COMMENT(S) (test code = 8251-1) DNR Jonatan [id number] 00:00:00* Test Item Value Reference Range Interpretation Comme nts TSH (test code = 3016-3) 0.05 mIU/L COMPREHENSIVE METABOLIC [id number] 00:00:00* Test Item Value Reference Range Interpretation Comme nts GLUCOSE (test code = 2345-7) 116 mg/dL UREA NITROGEN (BUN) (test code = 3094-0) 11 mg/dL CREATININE (test code = 2160-0) 0.62 mg/dL eGFR NON-AFR. ANGOLAN (test code = 95554-5) 97 mL/min/1.73m2 eGFR (test code = 34503-5) 113 mL/min/1.73m2 BUN/CREATININE RATIO (test code = 3097-3) NOT APPLICABLE (calc) SODIUM (test code = 2951-2) 137 mmol/L POTASSIUM (test code = 2823-3) 3.4 mmol/L CHLORIDE (test code = 5-0) 101 mmol/L CARBON DIOXIDE (test code = 2027-9) 24 mmol/L CALCIUM (test code = 23379-9) 9.2 mg/dL PROTEIN, TOTAL (test code = 2885-2) 6.8 g/dL ALBUMIN (test code = 1751-7) 3.8 g/dL GLOBULIN (test code = 31326-7) 3.0 g/dL(calc) ALBUMIN/GLOBULIN RATIO (test code = 1759-0) 1.3 (calc) BILIRUBIN, TOTAL (test code = 1974-2) 0.8 mg/dL ALKALINE PHOSPHATASE (test code = 6768-6) 95 U/L AST (test code = 1920-8) 23 U/L ALT (test code = 1742-6) 14 U/L LIPID PANEL (REFL)2020-09-15 00:00:00* Test Item Value Reference Range Interpretation Comme nts CHOLESTEROL, TOTAL (test cod e = 2092-3) 202 mg/dL HDL CHOLESTEROL (test code = 2084-9) 65 mg/dL TRIGLYCERIDES (test code = 2571-8) 167 mg/dL LDL-CHOLESTEROL (test code = 19464-7) 109 mg/dL(calc) CHOL/HDLC RATIO (test code = 9830-1) 3.1 (calc) NON HDL CHOLESTEROL (test code = 67857-3) 137 mg/dL(calc) Jonatan Barber [id number] 00:00:00* Test Item Value Reference Range Interpretation Comme nts TSH (test code = 3016-3) 0.05 mIU/L COMPREHENSIVE METABOLIC [id number] 00:00:00* Test Item Value Reference Range Interpretation Comme nts GLUCOSE (test code = 2345-7) 116 mg/dL UREA NITROGEN (BUN) (test code = 3094-0) 11 mg/dL CREATININE (test code = 2160-0) 0.62 mg/dL eGFR NON-AFR. ANGOLAN (test code = 65735-2) 97 mL/min/1.73m2 eGFR (test code = 43896-9) 113 mL/min/1.73m2 BUN/CREATININE RATIO (test code = 3097-3) NOT APPLICABLE (calc) SODIUM (test code = 2951-2) 137 mmol/L POTASSIUM (test code = 2823-3) 3.4 mmol/L CHLORIDE (test code = 2075-0) 101 mmol/L CARBON DIOXIDE (test code = 2027-9) 24 mmol/L CALCIUM (test code = 06180-4) 9.2 mg/dL PROTEIN, TOTAL (test code = 2885-2) 6.8 g/dL ALBUMIN (test code = 1751-7) 3.8 g/dL GLOBULIN (test code = 08580-7) 3.0 g/dL(calc) ALBUMIN/GLOBULIN RATIO (test code = 1759-0) 1.3 (calc) BILIRUBIN, TOTAL (test code = 1975-2) 0.8 mg/dL ALKALINE PHOSPHATASE (test code = 6768-6) 95 U/L AST (test code = 1920-8) 23 U/L ALT (test code = 1742-6) 14 U/L Jonatan [id number] 00:00:00* Test Item Value Reference Range Interpretation [...] cells/uL ABSOLUTE BAND NEUTROPHILS (test code = 76641-6) DNR cells/uL ABSOLUTE METAMYELOCYTES (christopher t code = 42563-9) DNR cells/uL ABSOLUTE MYELOCYTES (test code = 20286-1) DNR cells/uL ABSOLUTE PROMYELOCYTES (test code = 91048-1) DNR cells/uL ABSOLUTE LYMPHOCYTES (test code = 731-0) 1588 cells/uL ABSOLUTE MONOCYTES (test cod e = 742-7) 648 cells/uL ABSOLUTE EOSINOPHILS (test code = 711-2) 221 cells/uL ABSOLUTE BASOPHILS (test cod e = 704-7) 71 cells/uL ABSOLUTE BLASTS (test code = 70201-8) DNR cells/uL ABSOLUTE NUCLEATED RBC (test code = 81483-4) DNR cells/uL NEUTROPHILS (test code = 770-8) 68 % BAND NEUTROPHILS (test code = 764-1) DNR % METAMYELOCYTES (test code = 740-1) DNR % MYELOCYTES (test code = 749-2) DNR % PROMYELOCYTES (test code = 783-1) DNR % LYMPHOCYTES (test code = 736-9) 20.1 % REACTIVE LYMPHOCYTES (test code = 92980-3) DNR % MONOCYTES (test code = 5905-5) 8.2 % EOSINOPHILS (test code = 713-8) 2.8 % BASOPHILS (test code = 706-2) 0.9 % BLASTS (test code = 709-6) DNR % NUCLEATED RBC (test code = 44616-7) DNR /100WBC COMMENT(S) (test code = 8251-1) DNR CBC (INCLUDES DIFF/PLT)2020-09-15 00:00:00* Test Item Value [...] cells/uL ABSOLUTE BAND NEUTROPHILS (test code = 52238-8) DNR cells/uL ABSOLUTE METAMYELOCYTES (christopher t code = 03054-8) DNR cells/uL ABSOLUTE MYELOCYTES (test code = 74247-9) DNR cells/uL ABSOLUTE PROMYELOCYTES (test code = 60512-3) DNR cells/uL ABSOLUTE LYMPHOCYTES (test code = 731-0) 1588 cells/uL ABSOLUTE MONOCYTES (test cod e = 742-7) 648 cells/uL ABSOLUTE EOSINOPHILS (test code = 711-2) 221 cells/uL ABSOLUTE BASOPHILS (test cod e = 704-7) 71 cells/uL ABSOLUTE BLASTS (test code = 24066-1) DNR cells/uL ABSOLUTE NUCLEATED RBC (test code = 98179-3) DNR cells/uL NEUTROPHILS (test code = 770-8) 68 % BAND NEUTROPHILS (test code = 764-1) DNR % METAMYELOCYTES (test code = 740-1) DNR % MYELOCYTES (test code = 749-2) DNR % PROMYELOCYTES (test code = 783-1) DNR % LYMPHOCYTES (test code = 736-9) 20.1 % REACTIVE LYMPHOCYTES (test code = 80921-6) DNR % MONOCYTES (test code = 5905-5) 8.2 % EOSINOPHILS (test code = 713-8) 2.8 % BASOPHILS (test code = 706-2) 0.9 % BLASTS (test code = 709-6) DNR % NUCLEATED RBC (test code = 58569-8) DNR /100WBC COMMENT(S) (test code = 8251-1) DNR Jonatan F AustinLIPID PANEL (REFL)2020-09-15 00:00:00* Test Item Value Reference Range Interpretation Comme nts CHOLESTEROL, TOTAL (test cod e = 2093-3) 202 mg/dL HDL CHOLESTEROL (test code = 2085-9) 65 mg/dL TRIGLYCERIDES (test code = 2571-8) 167 mg/dL LDL-CHOLESTEROL (test code = 52292-6) 109 mg/dL(calc) CHOL/HDLC RATIO (test code = 9830-1) 3.1 (calc) NON HDL CHOLESTEROL (test code = 52159-4) 137 mg/dL(calc) Jonatan Elisabeth LandyLIPID PANEL (REFL)2020-09-15 00:00:00* Test Item Value Reference Range Interpretation Comme nts CHOLESTEROL, TOTAL (test cod e = 2093-3) 202 mg/dL HDL CHOLESTEROL (test code = 5-9) 65 mg/dL TRIGLYCERIDES (test code = 2571-8) 167 mg/dL LDL-CHOLESTEROL (test code = 00072-9) 109 mg/dL(calc) CHOL/HDLC RATIO (test code = 9830-1) 3.1 (calc) NON HDL CHOLESTEROL (test code = 92534-0) 137 mg/dL(calc) BASIC METABOLIC [id number] 00:00:00* Test Item Value Reference Range Interpretation Comme nts GLUCOSE (test code = 2345-7) 99 mg/dL UREA NITROGEN (BUN) (test code = 3094-0) 16 mg/dL CREATININE (test code = 2160-0) 0.94 mg/dL eGFR NON-AFR. ANGOLAN (test code = 47726-7) 65 mL/min/1.73m2 eGFR (test code = 71734-7) 76 mL/min/1.73m2 BUN/CREATININE RATIO (test code = 3097-3) NOT APPLICABLE (calc) SODIUM (test code = 2951-2) 139 mmol/L POTASSIUM (test code = 2823-3) 3.7 mmol/L CHLORIDE (test code = 2075-0) 107 mmol/L CARBON DIOXIDE (test code = 2027-9) 22 mmol/L CALCIUM (test code = 11964-8) 9.3 mg/dL Jonatan EasonCBC (INCLUDES DIFF/PLT)2020-05-04 00:00:00* [...] cells/uL ABSOLUTE BAND NEUTROPHILS (test code = 76276-3) DNR cells/uL ABSOLUTE METAMYELOCYTES (christopher t code = 09588-9) DNR cells/uL ABSOLUTE MYELOCYTES (test code = 42621-5) DNR cells/uL ABSOLUTE PROMYELOCYTES (test code = 31031-4) DNR cells/uL ABSOLUTE LYMPHOCYTES (test code = 731-0) 1316 cells/uL ABSOLUTE MONOCYTES (test cod e = 742-7) 400 cells/uL ABSOLUTE EOSINOPHILS (test code = 711-2) 99 cells/uL ABSOLUTE BASOPHILS (test cod e = 704-7) 88 cells/uL ABSOLUTE BLASTS (test code = 25728-5) DNR cells/uL ABSOLUTE NUCLEATED RBC (test code = 15077-3) DNR cells/uL NEUTROPHILS (test code = 770-8) 63.4 % BAND NEUTROPHILS (test code = 764-1) DNR % METAMYELOCYTES (test code = 740-1) DNR % MYELOCYTES (test code = 749-2) DNR % PROMYELOCYTES (test code = 783-1) DNR % LYMPHOCYTES (test code = 736-9) 25.3 % REACTIVE LYMPHOCYTES (test code = 60916-2) DNR % MONOCYTES (test code = 5905-5) 7.7 % EOSINOPHILS (test code = 713-8) 1.9 % BASOPHILS (test code = 706-2) 1.7 % BLASTS (test code = 709-6) DNR % NUCLEATED RBC (test code = 48090-0) DNR /100WBC COMMENT(S) (test code = 8251-1) DNR BASIC METABOLIC [id number] 00:00:00* Test Item Value Reference Range Interpretation Comme nts GLUCOSE (test code = 2345-7) 99 mg/dL UREA NITROGEN (BUN) (test code = 3094-0) 16 mg/dL CREATININE (test code = 2160-0) 0.94 mg/dL eGFR NON-AFR. ANGOLAN (test code = 67487-3) 65 mL/min/1.73m2 eGFR (test code = 77718-7) 76 mL/min/1.73m2 BUN/CREATININE RATIO (test code = 3097-3) NOT APPLICABLE (calc) SODIUM (test code = 2951-2) 139 mmol/L POTASSIUM (test code = 2823-3) 3.7 mmol/L CHLORIDE (test code = 2075-0) 107 mmol/L CARBON DIOXIDE (test code = 8-9) 22 mmol/L CALCIUM (test code = 00583-8) 9.3 mg/dL CBC (INCLUDES DIFF/PLT)2020-05-04 00:00:00* Test [...] cells/uL ABSOLUTE BAND NEUTROPHILS (test code = 11980-4) DNR cells/uL ABSOLUTE METAMYELOCYTES (christopher t code = 75772-1) DNR cells/uL ABSOLUTE MYELOCYTES (test code = 20346-6) DNR cells/uL ABSOLUTE PROMYELOCYTES (test code = 73607-9) DNR cells/uL ABSOLUTE LYMPHOCYTES (test code = 731-0) 1316 cells/uL ABSOLUTE MONOCYTES (test cod e = 742-7) 400 cells/uL ABSOLUTE EOSINOPHILS (test code = 711-2) 99 cells/uL ABSOLUTE BASOPHILS (test cod e = 704-7) 88 cells/uL ABSOLUTE BLASTS (test code = 52823-8) DNR cells/uL ABSOLUTE NUCLEATED RBC (test code = 74509-2) DNR cells/uL NEUTROPHILS (test code = 770-8) 63.4 % BAND NEUTROPHILS (test code = 764-1) DNR % METAMYELOCYTES (test code = 740-1) DNR % MYELOCYTES (test code = 749-2) DNR % PROMYELOCYTES (test code = 783-1) DNR % LYMPHOCYTES (test code = 736-9) 25.3 % REACTIVE LYMPHOCYTES (test code = 32954-9) DNR % MONOCYTES (test code = 5905-5) 7.7 % EOSINOPHILS (test code = 713-8) 1.9 % BASOPHILS (test code = 706-2) 1.7 % BLASTS (test code = 709-6) DNR % NUCLEATED RBC (test code = 51832-1) DNR /100WBC COMMENT(S) (test code = 8251-1) DNR Jonatan Barber AustinCBC (INCLUDES DIFF/PLT)2020-05-04 00:00:00* Test Item Value Reference [...] cells/uL ABSOLUTE BAND NEUTROPHILS (test code = 44792-7) DNR cells/uL ABSOLUTE METAMYELOCYTES (christopher t code = 97402-8) DNR cells/uL ABSOLUTE MYELOCYTES (test code = 16569-4) DNR cells/uL ABSOLUTE PROMYELOCYTES (test code = 53417-7) DNR cells/uL ABSOLUTE LYMPHOCYTES (test code = 731-0) 1316 cells/uL ABSOLUTE MONOCYTES (test cod e = 742-7) 400 cells/uL ABSOLUTE EOSINOPHILS (test code = 711-2) 99 cells/uL ABSOLUTE BASOPHILS (test cod e = 704-7) 88 cells/uL ABSOLUTE BLASTS (test code = 00174-4) DNR cells/uL ABSOLUTE NUCLEATED RBC (test code = 25459-6) DNR cells/uL NEUTROPHILS (test code = 770-8) 63.4 % BAND NEUTROPHILS (test code = 764-1) DNR % METAMYELOCYTES (test code = 740-1) DNR % MYELOCYTES (test code = 749-2) DNR % PROMYELOCYTES (test code = 783-1) DNR % LYMPHOCYTES (test code = 736-9) 25.3 % REACTIVE LYMPHOCYTES (test code = 49427-0) DNR % MONOCYTES (test code = 5905-5) 7.7 % EOSINOPHILS (test code = 713-8) 1.9 % BASOPHILS (test code = 706-2) 1.7 % BLASTS (test code = 709-6) DNR % NUCLEATED RBC (test code = 27319-6) DNR /100WBC COMMENT(S) (test code = 8251-1) DNR BASIC METABOLIC [id number] 00:00:00* Test Item Value Reference Range Interpretation Comme nts GLUCOSE (test code = 2345-7) 99 mg/dL UREA NITROGEN (BUN) (test code = 3094-0) 16 mg/dL CREATININE (test code = 2160-0) 0.94 mg/dL eGFR NON-AFR. ANGOLAN (test code = 13162-9) 65 mL/min/1.73m2 eGFR (test code = 20629-6) 76 mL/min/1.73m2 BUN/CREATININE RATIO (test code = 3097-3) NOT APPLICABLE (calc) SODIUM (test code = 2951-2) 139 mmol/L POTASSIUM (test code = 2823-3) 3.7 mmol/L CHLORIDE (test code = 2075-0) 107 mmol/L CARBON DIOXIDE (test code = 8-9) 22 mmol/L CALCIUM (test code = 86520-8) 9.3 mg/dL Jonatan F AustinBASIC METABOLIC [id number] 00:00:00* Test Item Value Reference Range Interpretation Comme nts GLUCOSE (test code = 2345-7) 99 mg/dL UREA NITROGEN (BUN) (test code = 3094-0) 16 mg/dL CREATININE (test code = 2160-0) 0.94 mg/dL eGFR NON-AFR. ANGOLAN (test code = 52425-0) 65 mL/min/1.73m2 eGFR (test code = 92885-1) 76 mL/min/1.73m2 BUN/CREATININE RATIO (test code = 3097-3) NOT APPLICABLE (calc) SODIUM (test code = 2951-2) 139 mmol/L POTASSIUM (test code = 2823-3) 3.7 mmol/L CHLORIDE (test code = 2075-0) 107 mmol/L CARBON DIOXIDE (test code = 8-9) 22 mmol/L CALCIUM (test code = 40984-6) 9.3 mg/dL CBC (INCLUDES DIFF/PLT)2020-05-04 00:00:00* Test [...] cells/uL ABSOLUTE BAND NEUTROPHILS (test code = 89708-4) DNR cells/uL ABSOLUTE METAMYELOCYTES (christopher t code = 03180-8) DNR cells/uL ABSOLUTE MYELOCYTES (test code = 81838-9) DNR cells/uL ABSOLUTE PROMYELOCYTES (test code = 76298-1) DNR cells/uL ABSOLUTE LYMPHOCYTES (test code = 731-0) 1316 cells/uL ABSOLUTE MONOCYTES (test cod e = 742-7) 400 cells/uL ABSOLUTE EOSINOPHILS (test code = 711-2) 99 cells/uL ABSOLUTE BASOPHILS (test cod e = 704-7) 88 cells/uL ABSOLUTE BLASTS (test code = 17481-2) DNR cells/uL ABSOLUTE NUCLEATED RBC (test code = 25406-6) DNR cells/uL NEUTROPHILS (test code = 770-8) 63.4 % BAND NEUTROPHILS (test code = 764-1) DNR % METAMYELOCYTES (test code = 740-1) DNR % MYELOCYTES (test code = 749-2) DNR % PROMYELOCYTES (test code = 783-1) DNR % LYMPHOCYTES (test code = 736-9) 25.3 % REACTIVE LYMPHOCYTES (test code = 04419-8) DNR % MONOCYTES (test code = 5905-5) 7.7 % EOSINOPHILS (test code = 713-8) 1.9 % BASOPHILS (test code = 706-2) 1.7 % BLASTS (test code = 709-6) DNR % NUCLEATED RBC (test code = 90220-0) DNR /100WBC COMMENT(S) (test code = 8251-1) DNR Jonatan F AustinCBC (INCLUDES DIFF/PLT)2020-05-04 00:00:00* Test Item Value Reference [...] cells/uL ABSOLUTE BAND NEUTROPHILS (test code = 85940-3) DNR cells/uL ABSOLUTE METAMYELOCYTES (christopher t code = 99162-7) DNR cells/uL ABSOLUTE MYELOCYTES (test code = 38276-6) DNR cells/uL ABSOLUTE PROMYELOCYTES (test code = 09694-6) DNR cells/uL ABSOLUTE LYMPHOCYTES (test code = 731-0) 1316 cells/uL ABSOLUTE MONOCYTES (test cod e = 742-7) 400 cells/uL ABSOLUTE EOSINOPHILS (test code = 711-2) 99 cells/uL ABSOLUTE BASOPHILS (test cod e = 704-7) 88 cells/uL ABSOLUTE BLASTS (test code = 91500-4) DNR cells/uL ABSOLUTE NUCLEATED RBC (test code = 16600-9) DNR cells/uL NEUTROPHILS (test code = 770-8) 63.4 % BAND NEUTROPHILS (test code = 764-1) DNR % METAMYELOCYTES (test code = 740-1) DNR % MYELOCYTES (test code = 749-2) DNR % PROMYELOCYTES (test code = 783-1) DNR % LYMPHOCYTES (test code = 736-9) 25.3 % REACTIVE LYMPHOCYTES (test code = 09514-6) DNR % MONOCYTES (test code = 5905-5) 7.7 % EOSINOPHILS (test code = 713-8) 1.9 % BASOPHILS (test code = 706-2) 1.7 % BLASTS (test code = 709-6) DNR % NUCLEATED RBC (test code = 63628-1) DNR /100WBC COMMENT(S) (test code = 8251-1) DNR BASIC METABOLIC [id number] 00:00:00* Test Item Value Reference Range Interpretation Comme nts GLUCOSE (test code = 2345-7) 99 mg/dL UREA NITROGEN (BUN) (test code = 3094-0) 16 mg/dL CREATININE (test code = 2160-0) 0.94 mg/dL eGFR NON-AFR. ANGOLAN (test code = 17943-7) 65 mL/min/1.73m2 eGFR (test code = 81698-5) 76 mL/min/1.73m2 BUN/CREATININE RATIO (test code = 3097-3) NOT APPLICABLE (calc) SODIUM (test code = 2951-2) 139 mmol/L POTASSIUM (test code = 2823-3) 3.7 mmol/L CHLORIDE (test code = 2075-0) 107 mmol/L CARBON DIOXIDE (test code = 8-9) 22 mmol/L CALCIUM (test code = 15675-6) 9.3 mg/dL Jonatan EasonCBC (INCLUDES DIFF/PLT)2020-05-04 00:00:00* [...] cells/uL ABSOLUTE BAND NEUTROPHILS (test code = 70919-9) DNR cells/uL ABSOLUTE METAMYELOCYTES (christopher t code = 57025-2) DNR cells/uL ABSOLUTE MYELOCYTES (test code = 65905-5) DNR cells/uL ABSOLUTE PROMYELOCYTES (test code = 51434-4) DNR cells/uL ABSOLUTE LYMPHOCYTES (test code = 731-0) 1316 cells/uL ABSOLUTE MONOCYTES (test cod e = 742-7) 400 cells/uL ABSOLUTE EOSINOPHILS (test code = 711-2) 99 cells/uL ABSOLUTE BASOPHILS (test cod e = 704-7) 88 cells/uL ABSOLUTE BLASTS (test code = 63590-1) DNR cells/uL ABSOLUTE NUCLEATED RBC (test code = 55845-9) DNR cells/uL NEUTROPHILS (test code = 770-8) 63.4 % BAND NEUTROPHILS (test code = 764-1) DNR % METAMYELOCYTES (test code = 740-1) DNR % MYELOCYTES (test code = 749-2) DNR % PROMYELOCYTES (test code = 783-1) DNR % LYMPHOCYTES (test code = 736-9) 25.3 % REACTIVE LYMPHOCYTES (test code = 76447-7) DNR % MONOCYTES (test code = 5905-5) 7.7 % EOSINOPHILS (test code = 713-8) 1.9 % BASOPHILS (test code = 706-2) 1.7 % BLASTS (test code = 709-6) DNR % NUCLEATED RBC (test code = 89825-6) DNR /100WBC COMMENT(S) (test code = 8251-1) DNR BASIC METABOLIC [id number] 00:00:00* Test Item Value Reference Range Interpretation Comme nts GLUCOSE (test code = 2345-7) 99 mg/dL UREA NITROGEN (BUN) (test code = 3094-0) 16 mg/dL CREATININE (test code = 2160-0) 0.94 mg/dL eGFR NON-AFR. ANGOLAN (test code = 88583-2) 65 mL/min/1.73m2 eGFR (test code = 52365-4) 76 mL/min/1.73m2 BUN/CREATININE RATIO (test code = 3097-3) NOT APPLICABLE (calc) SODIUM (test code = 2951-2) 139 mmol/L POTASSIUM (test code = 2823-3) 3.7 mmol/L CHLORIDE (test code = 2075-0) 107 mmol/L CARBON DIOXIDE (test code = 8-9) 22 mmol/L CALCIUM (test code = 77595-8) 9.3 mg/dL CBC (INCLUDES DIFF/PLT)2020-05-04 00:00:00* Test [...] cells/uL ABSOLUTE BAND NEUTROPHILS (test code = 68527-9) DNR cells/uL ABSOLUTE METAMYELOCYTES (christopher t code = 04530-8) DNR cells/uL ABSOLUTE MYELOCYTES (test code = 28771-9) DNR cells/uL ABSOLUTE PROMYELOCYTES (test code = 86241-0) DNR cells/uL ABSOLUTE LYMPHOCYTES (test code = 731-0) 1316 cells/uL ABSOLUTE MONOCYTES (test cod e = 742-7) 400 cells/uL ABSOLUTE EOSINOPHILS (test code = 711-2) 99 cells/uL ABSOLUTE BASOPHILS (test cod e = 704-7) 88 cells/uL ABSOLUTE BLASTS (test code = 02509-6) DNR cells/uL ABSOLUTE NUCLEATED RBC (test code = 59852-6) DNR cells/uL NEUTROPHILS (test code = 770-8) 63.4 % BAND NEUTROPHILS (test code = 764-1) DNR % METAMYELOCYTES (test code = 740-1) DNR % MYELOCYTES (test code = 749-2) DNR % PROMYELOCYTES (test code = 783-1) DNR % LYMPHOCYTES (test code = 736-9) 25.3 % REACTIVE LYMPHOCYTES (test code = 06471-5) DNR % MONOCYTES (test code = 5905-5) 7.7 % EOSINOPHILS (test code = 713-8) 1.9 % BASOPHILS (test code = 706-2) 1.7 % BLASTS (test code = 709-6) DNR % NUCLEATED RBC (test code = 03361-5) DNR /100WBC COMMENT(S) (test code = 8251-1) DNR Jonatan Barber [facility] METABOLIC [id number] 00:00:00* Test Item Value Reference Range Interpretation Comme nts GLUCOSE (test code = 2345-7) 99 mg/dL UREA NITROGEN (BUN) (test code = 3094-0) 16 mg/dL CREATININE (test code = 2160-0) 0.94 mg/dL eGFR NON-AFR. ANGOLAN (test code = 34264-1) 65 mL/min/1.73m2 eGFR (test code = 23240-8) 76 mL/min/1.73m2 BUN/CREATININE RATIO (test code = 3097-3) NOT APPLICABLE (calc) SODIUM (test code = 2951-2) 139 mmol/L POTASSIUM (test code = 2823-3) 3.7 mmol/L CHLORIDE (test code = 2075-0) 107 mmol/L CARBON DIOXIDE (test code = 2027-9) 22 mmol/L CALCIUM (test code = 18010-8) 9.3 mg/dL Jonatan Barber [facility] (INCLUDES DIFF/PLT)2020-05-04 00:00:00* Test Item Value Reference [...] cells/uL ABSOLUTE BAND NEUTROPHILS (test code = 32114-5) DNR cells/uL ABSOLUTE METAMYELOCYTES (christopher t code = 59466-8) DNR cells/uL ABSOLUTE MYELOCYTES (test code = 17093-7) DNR cells/uL ABSOLUTE PROMYELOCYTES (test code = 50007-0) DNR cells/uL ABSOLUTE LYMPHOCYTES (test code = 731-0) 1316 cells/uL ABSOLUTE MONOCYTES (test cod e = 742-7) 400 cells/uL ABSOLUTE EOSINOPHILS (test code = 711-2) 99 cells/uL ABSOLUTE BASOPHILS (test cod e = 704-7) 88 cells/uL ABSOLUTE BLASTS (test code = 10927-5) DNR cells/uL ABSOLUTE NUCLEATED RBC (test code = 05362-7) DNR cells/uL NEUTROPHILS (test code = 770-8) 63.4 % BAND NEUTROPHILS (test code = 764-1) DNR % METAMYELOCYTES (test code = 740-1) DNR % MYELOCYTES (test code = 749-2) DNR % PROMYELOCYTES (test code = 783-1) DNR % LYMPHOCYTES (test code = 736-9) 25.3 % REACTIVE LYMPHOCYTES (test code = 99505-3) DNR % MONOCYTES (test code = 5905-5) 7.7 % EOSINOPHILS (test code = 713-8) 1.9 % BASOPHILS (test code = 706-2) 1.7 % BLASTS (test code = 709-6) DNR % NUCLEATED RBC (test code = 48489-6) DNR /100WBC COMMENT(S) (test code = 8251-1) DNR BASIC METABOLIC [id number] 00:00:00* Test Item Value Reference Range Interpretation Comme nts GLUCOSE (test code = 2345-7) 99 mg/dL UREA NITROGEN (BUN) (test code = 3094-0) 16 mg/dL CREATININE (test code = 2160-0) 0.94 mg/dL eGFR NON-AFR. ANGOLAN (test code = 25820-4) 65 mL/min/1.73m2 eGFR (test code = 64090-8) 76 mL/min/1.73m2 BUN/CREATININE RATIO (test code = 3097-3) NOT APPLICABLE (calc) SODIUM (test code = 2951-2) 139 mmol/L POTASSIUM (test code = 2823-3) 3.7 mmol/L CHLORIDE (test code = 2075-0) 107 mmol/L CARBON DIOXIDE (test code = 2028-9) 22 mmol/L CALCIUM (test code = 91033-1) 9.3 mg/dL CBC (INCLUDES DIFF/PLT)2020-05-04 00:00:00* Test [...] cells/uL ABSOLUTE BAND NEUTROPHILS (test code = 10059-1) DNR cells/uL ABSOLUTE METAMYELOCYTES (christopher t code = 25782-7) DNR cells/uL ABSOLUTE MYELOCYTES (test code = 34075-4) DNR cells/uL ABSOLUTE PROMYELOCYTES (test code = 98172-3) DNR cells/uL ABSOLUTE LYMPHOCYTES (test code = 731-0) 1316 cells/uL ABSOLUTE MONOCYTES (test cod e = 742-7) 400 cells/uL ABSOLUTE EOSINOPHILS (test code = 711-2) 99 cells/uL ABSOLUTE BASOPHILS (test cod e = 704-7) 88 cells/uL ABSOLUTE BLASTS (test code = 87182-9) DNR cells/uL ABSOLUTE NUCLEATED RBC (test code = 27587-9) DNR cells/uL NEUTROPHILS (test code = 770-8) 63.4 % BAND NEUTROPHILS (test code = 764-1) DNR % METAMYELOCYTES (test code = 740-1) DNR % MYELOCYTES (test code = 749-2) DNR % PROMYELOCYTES (test code = 783-1) DNR % LYMPHOCYTES (test code = 736-9) 25.3 % REACTIVE LYMPHOCYTES (test code = 65881-2) DNR % MONOCYTES (test code = 5905-5) 7.7 % EOSINOPHILS (test code = 713-8) 1.9 % BASOPHILS (test code = 706-2) 1.7 % BLASTS (test code = 709-6) DNR % NUCLEATED RBC (test code = 78981-8) DNR /100WBC COMMENT(S) (test code = 8251-1) DNR Jonatan F [facility] METABOLIC [id number] 00:00:00* Test Item Value Reference Range Interpretation Comme nts GLUCOSE (test code = 2345-7) 99 mg/dL UREA NITROGEN (BUN) (test code = 3094-0) 16 mg/dL CREATININE (test code = 2160-0) 0.94 mg/dL eGFR NON-AFR. ANGOLAN (test code = 63594-4) 65 mL/min/1.73m2 eGFR (test code = 61326-1) 76 mL/min/1.73m2 BUN/CREATININE RATIO (test code = 3097-3) NOT APPLICABLE (calc) SODIUM (test code = 2951-2) 139 mmol/L POTASSIUM (test code = 2823-3) 3.7 mmol/L CHLORIDE (test code = 2075-0) 107 mmol/L CARBON DIOXIDE (test code = 2027-9) 22 mmol/L CALCIUM (test code = 11516-2) 9.3 mg/dL BASIC METABOLIC [id number] 00:00:00* Test Item Value Reference Range Interpretation Comme nts GLUCOSE (test code = 2345-7) 99 mg/dL UREA NITROGEN (BUN) (test code = 3094-0) 16 mg/dL CREATININE (test code = 2160-0) 0.94 mg/dL eGFR NON-AFR. ANGOLAN (test code = 87320-4) 65 mL/min/1.73m2 eGFR (test code = 82575-8) 76 mL/min/1.73m2 BUN/CREATININE RATIO (test code = 3097-3) NOT APPLICABLE (calc) SODIUM (test code = 2951-2) 139 mmol/L POTASSIUM (test code = 2823-3) 3.7 mmol/L CHLORIDE (test code = 2075-0) 107 mmol/L CARBON DIOXIDE (test code = 2027-9) 22 mmol/L CALCIUM (test code = 98843-5) 9.3 mg/dL Jonatan EasonCBC (INCLUDES DIFF/PLT)2020-05-04 00:00:00* [...] cells/uL ABSOLUTE BAND NEUTROPHILS (test code = 21679-7) DNR cells/uL ABSOLUTE METAMYELOCYTES (christopher t code = 03048-1) DNR cells/uL ABSOLUTE MYELOCYTES (test code = 52501-2) DNR cells/uL ABSOLUTE PROMYELOCYTES (test code = 05320-5) DNR cells/uL ABSOLUTE LYMPHOCYTES (test code = 731-0) 1316 cells/uL ABSOLUTE MONOCYTES (test cod e = 742-7) 400 cells/uL ABSOLUTE EOSINOPHILS (test code = 711-2) 99 cells/uL ABSOLUTE BASOPHILS (test cod e = 704-7) 88 cells/uL ABSOLUTE BLASTS (test code = 43906-3) DNR cells/uL ABSOLUTE NUCLEATED RBC (test code = 97901-8) DNR cells/uL NEUTROPHILS (test code = 770-8) 63.4 % BAND NEUTROPHILS (test code = 764-1) DNR % METAMYELOCYTES (test code = 740-1) DNR % MYELOCYTES (test code = 749-2) DNR % PROMYELOCYTES (test code = 783-1) DNR % LYMPHOCYTES (test code = 736-9) 25.3 % REACTIVE LYMPHOCYTES (test code = 57900-1) DNR % MONOCYTES (test code = 5905-5) 7.7 % EOSINOPHILS (test code = 713-8) 1.9 % BASOPHILS (test code = 706-2) 1.7 % BLASTS (test code = 709-6) DNR % NUCLEATED RBC (test code = 95911-3) DNR /100WBC COMMENT(S) (test code = 8251-1) DNR Jonatan F [facility] METABOLIC [id number] 00:00:00* Test Item Value Reference Range Interpretation Comme nts GLUCOSE (test code = 2345-7) 99 mg/dL UREA NITROGEN (BUN) (test code = 3094-0) 16 mg/dL CREATININE (test code = 2160-0) 0.94 mg/dL eGFR NON-AFR. ANGOLAN (test code = 02217-7) 65 mL/min/1.73m2 eGFR (test code = 78831-5) 76 mL/min/1.73m2 BUN/CREATININE RATIO (test code = 3097-3) NOT APPLICABLE (calc) SODIUM (test code = 2951-2) 139 mmol/L POTASSIUM (test code = 2823-3) 3.7 mmol/L CHLORIDE (test code = 2075-0) 107 mmol/L CARBON DIOXIDE (test code = 2027-9) 22 mmol/L CALCIUM (test code = 21068-3) 9.3 mg/dL Jonatan EasonCBC (INCLUDES DIFF/PLT)2020-05-04 00:00:00* [...] cells/uL ABSOLUTE BAND NEUTROPHILS (test code = 76846-6) DNR cells/uL ABSOLUTE METAMYELOCYTES (christopher t code = 49173-7) DNR cells/uL ABSOLUTE MYELOCYTES (test code = 20360-3) DNR cells/uL ABSOLUTE PROMYELOCYTES (test code = 76329-0) DNR cells/uL ABSOLUTE LYMPHOCYTES (test code = 731-0) 1316 cells/uL ABSOLUTE MONOCYTES (test cod e = 742-7) 400 cells/uL ABSOLUTE EOSINOPHILS (test code = 711-2) 99 cells/uL ABSOLUTE BASOPHILS (test cod e = 704-7) 88 cells/uL ABSOLUTE BLASTS (test code = 70367-2) DNR cells/uL ABSOLUTE NUCLEATED RBC (test code = 33474-7) DNR cells/uL NEUTROPHILS (test code = 770-8) 63.4 % BAND NEUTROPHILS (test code = 764-1) DNR % METAMYELOCYTES (test code = 740-1) DNR % MYELOCYTES (test code = 749-2) DNR % PROMYELOCYTES (test code = 783-1) DNR % LYMPHOCYTES (test code = 736-9) 25.3 % REACTIVE LYMPHOCYTES (test code = 46966-8) DNR % MONOCYTES (test code = 5905-5) 7.7 % EOSINOPHILS (test code = 713-8) 1.9 % BASOPHILS (test code = 706-2) 1.7 % BLASTS (test code = 709-6) DNR % NUCLEATED RBC (test code = 99676-7) DNR /100WBC COMMENT(S) (test code = 8251-1) DNR Jonatan Barbre AustinCBC (INCLUDES DIFF/PLT)2020-05-04 00:00:00* Test Item Value Reference [...] cells/uL ABSOLUTE BAND NEUTROPHILS (test code = 28907-6) DNR cells/uL ABSOLUTE METAMYELOCYTES (christopher t code = 50111-8) DNR cells/uL ABSOLUTE MYELOCYTES (test code = 23881-3) DNR cells/uL ABSOLUTE PROMYELOCYTES (test code = 04495-7) DNR cells/uL ABSOLUTE LYMPHOCYTES (test code = 731-0) 1316 cells/uL ABSOLUTE MONOCYTES (test cod e = 742-7) 400 cells/uL ABSOLUTE EOSINOPHILS (test code = 711-2) 99 cells/uL ABSOLUTE BASOPHILS (test cod e = 704-7) 88 cells/uL ABSOLUTE BLASTS (test code = 65365-1) DNR cells/uL ABSOLUTE NUCLEATED RBC (test code = 80219-7) DNR cells/uL NEUTROPHILS (test code = 770-8) 63.4 % BAND NEUTROPHILS (test code = 764-1) DNR % METAMYELOCYTES (test code = 740-1) DNR % MYELOCYTES (test code = 749-2) DNR % PROMYELOCYTES (test code = 783-1) DNR % LYMPHOCYTES (test code = 736-9) 25.3 % REACTIVE LYMPHOCYTES (test code = 31157-2) DNR % MONOCYTES (test code = 5905-5) 7.7 % EOSINOPHILS (test code = 713-8) 1.9 % BASOPHILS (test code = 706-2) 1.7 % BLASTS (test code = 709-6) DNR % NUCLEATED RBC (test code = 73380-3) DNR /100WBC COMMENT(S) (test code = 8251-1) DNR Jonatan Barber [facility] METABOLIC [id number] 00:00:00* Test Item Value Reference Range Interpretation Comme nts GLUCOSE (test code = 2345-7) 99 mg/dL UREA NITROGEN (BUN) (test code = 3094-0) 16 mg/dL CREATININE (test code = 2160-0) 0.94 mg/dL eGFR NON-AFR. ANGOLAN (test code = 72399-3) 65 mL/min/1.73m2 eGFR (test code = 07398-6) 76 mL/min/1.73m2 BUN/CREATININE RATIO (test code = 3097-3) NOT APPLICABLE (calc) SODIUM (test code = 2951-2) 139 mmol/L POTASSIUM (test code = 2823-3) 3.7 mmol/L CHLORIDE (test code = 2075-0) 107 mmol/L CARBON DIOXIDE (test code = 2027-9) 22 mmol/L CALCIUM (test code = 51726-4) 9.3 mg/dL Jonatan Barber [facility] METABOLIC [id number] 00:00:00* Test Item Value Reference Range Interpretation Comme nts GLUCOSE (test code = 2345-7) 99 mg/dL UREA NITROGEN (BUN) (test code = 3094-0) 16 mg/dL CREATININE (test code = 2160-0) 0.94 mg/dL eGFR NON-AFR. ANGOLAN (test code = 41600-9) 65 mL/min/1.73m2 eGFR (test code = 05263-9) 76 mL/min/1.73m2 BUN/CREATININE RATIO (test code = 3097-3) NOT APPLICABLE (calc) SODIUM (test code = 2951-2) 139 mmol/L POTASSIUM (test code = 2823-3) 3.7 mmol/L CHLORIDE (test code = 2075-0) 107 mmol/L CARBON DIOXIDE (test code = 8-9) 22 mmol/L CALCIUM (test code = 89714-9) 9.3 mg/dL Jonatan Barber [facility] (INCLUDES DIFF/PLT)2020-05-04 00:00:00* Test Item Value Reference [...] cells/uL ABSOLUTE BAND NEUTROPHILS (test code = 62768-3) DNR cells/uL ABSOLUTE METAMYELOCYTES (christopher t code = 86272-5) DNR cells/uL ABSOLUTE MYELOCYTES (test code = 47169-8) DNR cells/uL ABSOLUTE PROMYELOCYTES (test code = 69045-3) DNR cells/uL ABSOLUTE LYMPHOCYTES (test code = 731-0) 1316 cells/uL ABSOLUTE MONOCYTES (test cod e = 742-7) 400 cells/uL ABSOLUTE EOSINOPHILS (test code = 711-2) 99 cells/uL ABSOLUTE BASOPHILS (test cod e = 704-7) 88 cells/uL ABSOLUTE BLASTS (test code = 12966-6) DNR cells/uL ABSOLUTE NUCLEATED RBC (test code = 97227-7) DNR cells/uL NEUTROPHILS (test code = 770-8) 63.4 % BAND NEUTROPHILS (test code = 764-1) DNR % METAMYELOCYTES (test code = 740-1) DNR % MYELOCYTES (test code = 749-2) DNR % PROMYELOCYTES (test code = 783-1) DNR % LYMPHOCYTES (test code = 736-9) 25.3 % REACTIVE LYMPHOCYTES (test code = 13379-3) DNR % MONOCYTES (test code = 5905-5) 7.7 % EOSINOPHILS (test code = 713-8) 1.9 % BASOPHILS (test code = 706-2) 1.7 % BLASTS (test code = 709-6) DNR % NUCLEATED RBC (test code = 16228-8) DNR /100WBC COMMENT(S) (test code = 8251-1) DNR Jonatan Barber LandyBASIC METABOLIC [id number] 00:00:00* Test Item Value Reference Range Interpretation Comme nts GLUCOSE (test code = 2345-7) 99 mg/dL UREA NITROGEN (BUN) (test code = 3094-0) 16 mg/dL CREATININE (test code = 2160-0) 0.94 mg/dL eGFR NON-AFR. ANGOLAN (test code = 19737-5) 65 mL/min/1.73m2 eGFR (test code = 96189-2) 76 mL/min/1.73m2 BUN/CREATININE RATIO (test code = 3097-3) NOT APPLICABLE (calc) SODIUM (test code = 2951-2) 139 mmol/L POTASSIUM (test code = 2823-3) 3.7 mmol/L CHLORIDE (test code = 2075-0) 107 mmol/L CARBON DIOXIDE (test code = 8-9) 22 mmol/L CALCIUM (test code = 00932-1) 9.3 mg/dL Jonatan Barber LandyC (INCLUDES DIFF/PLT)2020-05-04 00:00:00* Test Item Value Reference [...] cells/uL ABSOLUTE BAND NEUTROPHILS (test code = 56348-1) DNR cells/uL ABSOLUTE METAMYELOCYTES (christopher t code = 52723-5) DNR cells/uL ABSOLUTE MYELOCYTES (test code = 32631-6) DNR cells/uL ABSOLUTE PROMYELOCYTES (test code = 20597-3) DNR cells/uL ABSOLUTE LYMPHOCYTES (test code = 731-0) 1316 cells/uL ABSOLUTE MONOCYTES (test cod e = 742-7) 400 cells/uL ABSOLUTE EOSINOPHILS (test code = 711-2) 99 cells/uL ABSOLUTE BASOPHILS (test cod e = 704-7) 88 cells/uL ABSOLUTE BLASTS (test code = 16781-5) DNR cells/uL ABSOLUTE NUCLEATED RBC (test code = 50358-5) DNR cells/uL NEUTROPHILS (test code = 770-8) 63.4 % BAND NEUTROPHILS (test code = 764-1) DNR % METAMYELOCYTES (test code = 740-1) DNR % MYELOCYTES (test code = 749-2) DNR % PROMYELOCYTES (test code = 783-1) DNR % LYMPHOCYTES (test code = 736-9) 25.3 % REACTIVE LYMPHOCYTES (test code = 75204-0) DNR % MONOCYTES (test code = 5905-5) 7.7 % EOSINOPHILS (test code = 713-8) 1.9 % BASOPHILS (test code = 706-2) 1.7 % BLASTS (test code = 709-6) DNR % NUCLEATED RBC (test code = 83025-8) DNR /100WBC COMMENT(S) (test code = 8251-1) DNR Jonatan Barber [facility] METABOLIC [id number] 00:00:00* Test Item Value Reference Range Interpretation Comme nts GLUCOSE (test code = 2345-7) 99 mg/dL UREA NITROGEN (BUN) (test code = 3094-0) 16 mg/dL CREATININE (test code = 2160-0) 0.94 mg/dL eGFR NON-AFR. ANGOLAN (test code = 01631-5) 65 mL/min/1.73m2 eGFR (test code = 97585-2) 76 mL/min/1.73m2 BUN/CREATININE RATIO (test code = 3097-3) NOT APPLICABLE (calc) SODIUM (test code = 2951-2) 139 mmol/L POTASSIUM (test code = 2823-3) 3.7 mmol/L CHLORIDE (test code = 2075-0) 107 mmol/L CARBON DIOXIDE (test code = 8-9) 22 mmol/L CALCIUM (test code = 85516-4) 9.3 mg/dL Jonatan EasonCBC (INCLUDES DIFF/PLT)2020-05-04 00:00:00* [...] cells/uL ABSOLUTE BAND NEUTROPHILS (test code = 42445-9) DNR cells/uL ABSOLUTE METAMYELOCYTES (christopher t code = 13589-4) DNR cells/uL ABSOLUTE MYELOCYTES (test code = 06869-0) DNR cells/uL ABSOLUTE PROMYELOCYTES (test code = 82336-6) DNR cells/uL ABSOLUTE LYMPHOCYTES (test code = 731-0) 1316 cells/uL ABSOLUTE MONOCYTES (test cod e = 742-7) 400 cells/uL ABSOLUTE EOSINOPHILS (test code = 711-2) 99 cells/uL ABSOLUTE BASOPHILS (test cod e = 704-7) 88 cells/uL ABSOLUTE BLASTS (test code = 72473-3) DNR cells/uL ABSOLUTE NUCLEATED RBC (test code = 44827-9) DNR cells/uL NEUTROPHILS (test code = 770-8) 63.4 % BAND NEUTROPHILS (test code = 764-1) DNR % METAMYELOCYTES (test code = 740-1) DNR % MYELOCYTES (test code = 749-2) DNR % PROMYELOCYTES (test code = 783-1) DNR % LYMPHOCYTES (test code = 736-9) 25.3 % REACTIVE LYMPHOCYTES (test code = 91082-3) DNR % MONOCYTES (test code = 5905-5) 7.7 % EOSINOPHILS (test code = 713-8) 1.9 % BASOPHILS (test code = 706-2) 1.7 % BLASTS (test code = 709-6) DNR % NUCLEATED RBC (test code = 41732-4) DNR /100WBC COMMENT(S) (test code = 8251-1) DNR BASIC METABOLIC [id number] 00:00:00* Test Item Value Reference Range Interpretation Comme nts GLUCOSE (test code = 2345-7) 99 mg/dL UREA NITROGEN (BUN) (test code = 3094-0) 16 mg/dL CREATININE (test code = 2160-0) 0.94 mg/dL eGFR NON-AFR. ANGOLAN (test code = 08524-9) 65 mL/min/1.73m2 eGFR (test code = 97450-8) 76 mL/min/1.73m2 BUN/CREATININE RATIO (test code = 3097-3) NOT APPLICABLE (calc) SODIUM (test code = 2951-2) 139 mmol/L POTASSIUM (test code = 2823-3) 3.7 mmol/L CHLORIDE (test code = 2075-0) 107 mmol/L CARBON DIOXIDE (test code = 8-9) 22 mmol/L CALCIUM (test code = 49126-3) 9.3 mg/dL CBC (INCLUDES DIFF/PLT)2020-05-04 00:00:00* Test [...] cells/uL ABSOLUTE BAND NEUTROPHILS (test code = 68467-1) DNR cells/uL ABSOLUTE METAMYELOCYTES (christopher t code = 75015-3) DNR cells/uL ABSOLUTE MYELOCYTES (test code = 16769-0) DNR cells/uL ABSOLUTE PROMYELOCYTES (test code = 85220-1) DNR cells/uL ABSOLUTE LYMPHOCYTES (test code = 731-0) 1316 cells/uL ABSOLUTE MONOCYTES (test cod e = 742-7) 400 cells/uL ABSOLUTE EOSINOPHILS (test code = 711-2) 99 cells/uL ABSOLUTE BASOPHILS (test cod e = 704-7) 88 cells/uL ABSOLUTE BLASTS (test code = 86356-7) DNR cells/uL ABSOLUTE NUCLEATED RBC (test code = 46538-5) DNR cells/uL NEUTROPHILS (test code = 770-8) 63.4 % BAND NEUTROPHILS (test code = 764-1) DNR % METAMYELOCYTES (test code = 740-1) DNR % MYELOCYTES (test code = 749-2) DNR % PROMYELOCYTES (test code = 783-1) DNR % LYMPHOCYTES (test code = 736-9) 25.3 % REACTIVE LYMPHOCYTES (test code = 73535-1) DNR % MONOCYTES (test code = 5905-5) 7.7 % EOSINOPHILS (test code = 713-8) 1.9 % BASOPHILS (test code = 706-2) 1.7 % BLASTS (test code = 709-6) DNR % NUCLEATED RBC (test code = 49013-8) DNR /100WBC COMMENT(S) (test code = 8251-1) DNR Jonatan Barber [facility] METABOLIC [id number] 00:00:00* Test Item Value Reference Range Interpretation Comme nts GLUCOSE (test code = 2345-7) 99 mg/dL UREA NITROGEN (BUN) (test code = 3094-0) 16 mg/dL CREATININE (test code = 2160-0) 0.94 mg/dL eGFR NON-AFR. ANGOLAN (test code = 07642-9) 65 mL/min/1.73m2 eGFR (test code = 91156-5) 76 mL/min/1.73m2 BUN/CREATININE RATIO (test code = 3097-3) NOT APPLICABLE (calc) SODIUM (test code = 2951-2) 139 mmol/L POTASSIUM (test code = 2823-3) 3.7 mmol/L CHLORIDE (test code = 2075-0) 107 mmol/L CARBON DIOXIDE (test code = 8-9) 22 mmol/L CALCIUM (test code = 30292-5) 9.3 mg/dL Jonatan Barber LandyCBC (INCLUDES DIFF/PLT)2020-05-04 00:00:00* Test Item Value Reference [...] cells/uL ABSOLUTE BAND NEUTROPHILS (test code = 60191-6) DNR cells/uL ABSOLUTE METAMYELOCYTES (christopher t code = 01712-2) DNR cells/uL ABSOLUTE MYELOCYTES (test code = 61335-1) DNR cells/uL ABSOLUTE PROMYELOCYTES (test code = 18362-3) DNR cells/uL ABSOLUTE LYMPHOCYTES (test code = 731-0) 1316 cells/uL ABSOLUTE MONOCYTES (test cod e = 742-7) 400 cells/uL ABSOLUTE EOSINOPHILS (test code = 711-2) 99 cells/uL ABSOLUTE BASOPHILS (test cod e = 704-7) 88 cells/uL ABSOLUTE BLASTS (test code = 53229-1) DNR cells/uL ABSOLUTE NUCLEATED RBC (test code = 01028-0) DNR cells/uL NEUTROPHILS (test code = 770-8) 63.4 % BAND NEUTROPHILS (test code = 764-1) DNR % METAMYELOCYTES (test code = 740-1) DNR % MYELOCYTES (test code = 749-2) DNR % PROMYELOCYTES (test code = 783-1) DNR % LYMPHOCYTES (test code = 736-9) 25.3 % REACTIVE LYMPHOCYTES (test code = 27276-2) DNR % MONOCYTES (test code = 5905-5) 7.7 % EOSINOPHILS (test code = 713-8) 1.9 % BASOPHILS (test code = 706-2) 1.7 % BLASTS (test code = 709-6) DNR % NUCLEATED RBC (test code = 39068-8) DNR /100WBC COMMENT(S) (test code = 8251-1) [...] cells/uL ABSOLUTE BAND NEUTROPHILS (test code = 39209-7) DNR cells/uL ABSOLUTE METAMYELOCYTES (christopher t code = 44264-5) DNR cells/uL ABSOLUTE MYELOCYTES (test code = 29253-0) DNR cells/uL ABSOLUTE PROMYELOCYTES (test code = 21100-5) DNR cells/uL ABSOLUTE LYMPHOCYTES (test code = 731-0) 1316 cells/uL ABSOLUTE MONOCYTES (test cod e = 742-7) 400 cells/uL ABSOLUTE EOSINOPHILS (test code = 711-2) 99 cells/uL ABSOLUTE BASOPHILS (test cod e = 704-7) 88 cells/uL ABSOLUTE BLASTS (test code = 53747-4) DNR cells/uL ABSOLUTE NUCLEATED RBC (test code = 96388-3) DNR cells/uL NEUTROPHILS (test code = 770-8) 63.4 % BAND NEUTROPHILS (test code = 764-1) DNR % METAMYELOCYTES (test code = 740-1) DNR % MYELOCYTES (test code = 749-2) DNR % PROMYELOCYTES (test code = 783-1) DNR % LYMPHOCYTES (test code = 736-9) 25.3 % REACTIVE LYMPHOCYTES (test code = 61066-9) DNR % MONOCYTES (test code = 5905-5) 7.7 % EOSINOPHILS (test code = 713-8) 1.9 % BASOPHILS (test code = 706-2) 1.7 % BLASTS (test code = 709-6) DNR % NUCLEATED RBC (test code = 68540-7) DNR /100WBC COMMENT(S) (test code = 8251-1) DNR Jonatan F [facility] METABOLIC [id number] 00:00:00* Test Item Value Reference Range Interpretation Comme nts GLUCOSE (test code = 2345-7) 99 mg/dL UREA NITROGEN (BUN) (test code = 3094-0) 16 mg/dL CREATININE (test code = 2160-0) 0.94 mg/dL eGFR NON-AFR. ANGOLAN (test code = 56522-8) 65 mL/min/1.73m2 eGFR (test code = 85716-7) 76 mL/min/1.73m2 BUN/CREATININE RATIO (test code = 3097-3) NOT APPLICABLE (calc) SODIUM (test code = 2951-2) 139 mmol/L POTASSIUM (test code = 2823-3) 3.7 mmol/L CHLORIDE (test code = 2075-0) 107 mmol/L CARBON DIOXIDE (test code = 2027-9) 22 mmol/L CALCIUM (test code = 13066-9) 9.3 mg/dL [id number] 00:00:00* Test Item Value Reference Range Interpretation Comme nts TSH, THIRD GENERATION (test code = 2821) 1.200 UIU/ML [id number] 00:00:00* Test Item Value Reference Range Interpretation Comme nts TSH, THIRD GENERATION (test code = 2821) 1.200 UIU/ML Jonatan F AustinCOMPREHENSIVE METABOLIC [id number] 00:00:00* Test Item Value Reference Range Interpretation Comme nts GLUCOSE (test code = 2217) 100 MG/DL BUN (test code = 2208) 16 MG/DL CREATININE (test code = 2214) 0.78 MG/DL eGFR AMER. (test cod e = 02843) 95 ML/MIN/1.73 eGFR NON- AMER. (test code = 41114) 82 ML/MIN/1.73 CALC BUN/CREAT (test code = [...] ALT (test code = 2219) 18 U/L [id number] 00:00:00* Test Item Value Reference Range Interpretation Comme nts TSH, THIRD GENERATION (test code = 2821) 1.200 UIU/ML COMPREHENSIVE METABOLIC [id number] 00:00:00* Test Item Value Reference Range Interpretation Comme nts GLUCOSE (test code = 2217) 100 MG/DL BUN (test code = 2208) 16 MG/DL CREATININE (test code = 2214) 0.78 MG/DL eGFR AMER. (test cod e = 00297) 95 ML/MIN/1.73 eGFR NON- AMER. (test code = 67816) 82 ML/MIN/1.73 CALC BUN/CREAT (test code = [...] (test code = 2219) 18 U/L Jonatan EasonCOMPREHENSIVE METABOLIC [id number] 00:00:00* Test Item Value Reference Range Interpretation Comme nts GLUCOSE (test code = 2217) 100 MG/DL BUN (test code = 2208) 16 MG/DL CREATININE (test code = 2214) 0.78 MG/DL eGFR AMER. (test cod e = 18766) 95 ML/MIN/1.73 eGFR NON- AMER. (test code = 64483) 82 ML/MIN/1.73 CALC BUN/CREAT (test code = [...] ALT (test code = 2219) 18 U/L [id number] 00:00:00* Test Item Value Reference Range Interpretation Comme nts TSH, THIRD GENERATION (test code = 2821) 1.200 UIU/ML Jonatan EasonCOMPREHENSIVE METABOLIC [id number] 00:00:00* Test Item Value Reference Range Interpretation Comme nts GLUCOSE (test code = 2217) 100 MG/DL BUN (test code = 2208) 16 MG/DL CREATININE (test code = 2214) 0.78 MG/DL eGFR AMER. (test cod e = 37939) 95 ML/MIN/1.73 eGFR NON- AMER. (test code = 48296) 82 ML/MIN/1.73 CALC BUN/CREAT (test code = [...] (test code = 2219) 18 U/L Jonatan [id number] 00:00:00* Test Item Value Reference Range Interpretation Comme nts TSH, THIRD GENERATION (test code = 2821) 1.200 UIU/ML COMPREHENSIVE METABOLIC [id number] 00:00:00* Test Item Value Reference Range Interpretation Comme nts GLUCOSE (test code = 2217) 100 MG/DL BUN (test code = 2208) 16 MG/DL CREATININE (test code = 2214) 0.78 MG/DL eGFR AMER. (test cod e = 42437) 95 ML/MIN/1.73 eGFR NON- AMER. (test code = 73195) 82 ML/MIN/1.73 CALC BUN/CREAT (test code = [...] ALT (test code = 2219) 18 U/L [id number] 00:00:00* Test Item Value Reference Range Interpretation Comme [facility] TSH, THIRD GENERATION (test code = 2821) 1.200 UIU/ML Jonatan [id number] 00:00:00* Test Item Value Reference Range Interpretation Comme nts TSH, THIRD GENERATION (test code = 2821) 1.200 UIU/ML COMPREHENSIVE METABOLIC [id number] 00:00:00* Test Item Value Reference Range Interpretation Comme nts GLUCOSE (test code = 2217) 100 MG/DL BUN (test code = 2208) 16 MG/DL CREATININE (test code = 2214) 0.78 MG/DL eGFR AMER. (test cod e = 24391) 95 ML/MIN/1.73 eGFR NON- AMER. (test code = 57831) 82 ML/MIN/1.73 CALC BUN/CREAT (test code = [...] (test code = 2219) 18 U/L Jonatan [id number] 00:00:00* Test Item Value Reference Range Interpretation Comme nts TSH, THIRD GENERATION (test code = 2821) 1.200 UIU/ML [id number] 00:00:00* Test Item Value Reference Range Interpretation Comme nts TSH, THIRD GENERATION (test code = 2821) 1.200 UIU/ML Jonatan EasonCOMPREHENSIVE METABOLIC [id number] 00:00:00* Test Item Value Reference Range Interpretation Comme nts GLUCOSE (test code = 2217) 100 MG/DL BUN (test code = 2208) 16 MG/DL CREATININE (test code = 2214) 0.78 MG/DL eGFR AMER. (test cod e = 38681) 95 ML/MIN/1.73 eGFR NON- AMER. (test code = 96153) 82 ML/MIN/1.73 CALC BUN/CREAT (test code = [...] ALT (test code = 2219) 18 U/L [id number] 00:00:00* Test Item Value Reference Range Interpretation Comme nts TSH, THIRD GENERATION (test code = 2821) 1.200 UIU/ML Jonatan EasonCOMPREHENSIVE METABOLIC [id number] 00:00:00* Test Item Value Reference Range Interpretation Comme nts GLUCOSE (test code = 2217) 100 MG/DL BUN (test code = 2208) 16 MG/DL CREATININE (test code = 2214) 0.78 MG/DL eGFR AMER. (test cod e = 25736) 95 ML/MIN/1.73 eGFR NON- AMER. (test code = 64352) 82 ML/MIN/1.73 CALC BUN/CREAT (test code = [...] code = 2219) 18 U/L COMPREHENSIVE METABOLIC [id number] 00:00:00* Test Item Value Reference Range Interpretation Comme nts GLUCOSE (test code = 2217) 100 MG/DL BUN (test code = 2208) 16 MG/DL CREATININE (test code = 2214) 0.78 MG/DL eGFR AMER. (test cod e = 66535) 95 ML/MIN/1.73 eGFR NON- AMER. (test code = 40808) 82 ML/MIN/1.73 CALC BUN/CREAT (test code = [...] (test code = 2219) 18 U/L Jonatan EasonCOMPREHENSIVE METABOLIC [id number] 00:00:00* Test Item Value Reference Range Interpretation Comme nts GLUCOSE (test code = 2217) 100 MG/DL BUN (test code = 2208) 16 MG/DL CREATININE (test code = 2214) 0.78 MG/DL eGFR AMER. (test cod e = 85692) 95 ML/MIN/1.73 eGFR NON- AMER. (test code = 33695) 82 ML/MIN/1.73 CALC BUN/CREAT (test code = [...] code = 2219) 18 U/L Jonatan Barber [id number] 00:00:00* Test Item Value Reference Range Interpretation Comme nts TSH, THIRD GENERATION (test code = 2821) 1.200 UIU/ML Jonatan [id number] 00:00:00* Test Item Value Reference Range Interpretation Comme nts TSH, THIRD GENERATION (test code = 2821) 1.200 UIU/ML Jonatan EasonCOMPREHENSIVE METABOLIC [id number] 00:00:00* Test Item Value Reference Range Interpretation Comme nts GLUCOSE (test code = 2217) 100 MG/DL BUN (test code = 2208) 16 MG/DL CREATININE (test code = 2214) 0.78 MG/DL eGFR AMER. (test cod e = 43091) 95 ML/MIN/1.73 eGFR NON- AMER. (test code = 89450) 82 ML/MIN/1.73 CALC BUN/CREAT (test code = [...] (test code = 2219) 18 U/L Jonatan EasonCOMPREHENSIVE METABOLIC [id number] 00:00:00* Test Item Value Reference Range Interpretation Comme nts GLUCOSE (test code = 2217) 100 MG/DL BUN (test code = 2208) 16 MG/DL CREATININE (test code = 2214) 0.78 MG/DL eGFR AMER. (test cod e = 62564) 95 ML/MIN/1.73 eGFR NON- AMER. (test code = 30864) 82 ML/MIN/1.73 CALC BUN/CREAT (test code = [...] (test code = 2219) 18 U/L Jonatan [id number] 00:00:00* Test Item Value Reference Range Interpretation Comme nts TSH, THIRD GENERATION (test code = 2821) 1.200 UIU/ML Jonatan EasonCOMPREHENSIVE METABOLIC [id number] 00:00:00* Test Item Value Reference Range Interpretation Comme nts GLUCOSE (test code = 2217) 100 MG/DL BUN (test code = 2208) 16 MG/DL CREATININE (test code = 2214) 0.78 MG/DL eGFR AMER. (test cod e = 33313) 95 ML/MIN/1.73 eGFR NON- AMER. (test code = 52965) 82 ML/MIN/1.73 CALC BUN/CREAT (test code = [...] (test code = 2219) 18 U/L Jonatan [id number] 00:00:00* Test Item Value Reference Range Interpretation Comme nts TSH, THIRD GENERATION (test code = 2821) 1.200 UIU/ML Jonatan EasonCOMPREHENSIVE METABOLIC [id number] 00:00:00* Test Item Value Reference Range Interpretation Comme nts GLUCOSE (test code = 2217) 100 MG/DL BUN (test code = 2208) 16 MG/DL CREATININE (test code = 2214) 0.78 MG/DL eGFR AMER. (test cod e = 96542) 95 ML/MIN/1.73 eGFR NON- AMER. (test code = 43187) 82 ML/MIN/1.73 CALC BUN/CREAT (test code = [...] (test code = 2219) 18 U/L Jonatan [id number] 00:00:00* Test Item Value Reference Range Interpretation Comme nts TSH, THIRD GENERATION (test code = 2821) 1.200 UIU/ML [id number] 00:00:00* Test Item Value Reference Range Interpretation Comme nts TSH, THIRD GENERATION (test code = 2821) 1.200 UIU/ML Jonatan Barber AustinCOMPREHENSIVE METABOLIC [id number] 00:00:00* Test Item Value Reference Range Interpretation Comme nts GLUCOSE (test code = 2217) 100 MG/DL BUN (test code = 2208) 16 MG/DL CREATININE (test code = 2214) 0.78 MG/DL eGFR AMER. (test cod e = 02926) 95 ML/MIN/1.73 eGFR NON- AMER. (test code = 68248) 82 ML/MIN/1.73 CALC BUN/CREAT (test code = [...] code = 2219) 18 U/L COMPREHENSIVE METABOLIC [id number] 00:00:00* Test Item Value Reference Range Interpretation Comme nts GLUCOSE (test code = 2217) 100 MG/DL BUN (test code = 2208) 16 MG/DL CREATININE (test code = 2214) 0.78 MG/DL eGFR AMER. (test cod e = 74893) 95 ML/MIN/1.73 eGFR NON- AMER. (test code = 76630) 82 ML/MIN/1.73 CALC BUN/CREAT (test code = [...] (test code = 2219) 18 U/L Jonatan [id number] 00:00:00* Test Item Value Reference Range Interpretation Comme nts TSH, THIRD GENERATION (test code = 2821) 1.200 UIU/ML [id number] 00:00:00* Test Item Value Reference Range Interpretation Comme nts TSH, THIRD GENERATION (test code = 2821) 1.200 UIU/ML Jonatan EasonCOMPREHENSIVE METABOLIC [id number] 00:00:00* Test Item Value Reference Range Interpretation Comme nts GLUCOSE (test code = 2217) 100 MG/DL BUN (test code = 2208) 16 MG/DL CREATININE (test code = 2214) 0.78 MG/DL eGFR AMER. (test cod e = 30355) 95 ML/MIN/1.73 eGFR NON- AMER. (test code = 09774) 82 ML/MIN/1.73 CALC BUN/CREAT (test code = [...] code = 2219) 18 U/L COMPREHENSIVE METABOLIC [id number] 00:00:00* Test Item Value Reference Range Interpretation Comme nts GLUCOSE (test code = 2217) 100 MG/DL BUN (test code = 2208) 16 MG/DL CREATININE (test code = 2214) 0.78 MG/DL eGFR AMER. (test cod e = 62627) 95 ML/MIN/1.73 eGFR NON- AMER. (test code = 26398) 82 ML/MIN/1.73 CALC BUN/CREAT (test code = [...] code = 2219) 18 U/L Jonatan Barber [id number] 00:00:00* Test Item Value Reference Range Interpretation Comme nts TSH, THIRD GENERATION (test code = 2821) 0.332 UIU/ML [id number] 00:00:00* Test Item Value Reference Range Interpretation Comme nts TSH, THIRD GENERATION (test code = 2821) 0.332 UIU/ML Jonatan Barber [id number] 00:00:00* Test Item Value Reference Range Interpretation Comme nts TSH, THIRD GENERATION (test code = 2821) 0.332 UIU/ML [id number] 00:00:00* Test Item Value Reference Range Interpretation Comme nts TSH, THIRD GENERATION (test code = 2821) 0.332 UIU/ML Jonatan Barber [id number] 00:00:00* Test Item Value Reference Range Interpretation Comme nts TSH, THIRD GENERATION (test code = 2821) 0.332 UIU/ML 00:00:00* Test Item Value Reference Range Interpretation Comme nts TSH, THIRD GENERATION (test code = 2821) 0.332 UIU/ML [id number] 00:00:00* Test Item Value Reference Range Interpretation Comme nts TSH, THIRD GENERATION (test code = 2821) 0.332 UIU/ML Jonatan Barber [id number] 00:00:00* Test Item Value Reference Range Interpretation Comme nts TSH, THIRD GENERATION (test code = 2821) 0.332 UIU/ML [id number] 00:00:00* Test Item Value Reference Range Interpretation Comme nts TSH, THIRD GENERATION (test code = 2821) 0.332 UIU/ML Jonatan Barber [id number] 00:00:00* Test Item Value Reference Range Interpretation Comme nts TSH, THIRD GENERATION (test code = 2821) 0.332 UIU/ML Jonatan Barber [id number] 00:00:00* Test Item Value Reference Range Interpretation Comme nts TSH, THIRD GENERATION (test code = 2821) 0.332 UIU/ML Jonatan Barber [id number] 00:00:00* Test Item Value Reference Range Interpretation Comme nts TSH, THIRD GENERATION (test code = 2821) 0.332 UIU/ML Jonatan Barber [id number] 00:00:00* Test Item Value Reference Range Interpretation Comme nts TSH, THIRD GENERATION (test code = 2821) 0.332 UIU/ML Jonatan Barber [id number] 00:00:00* Test Item Value Reference Range Interpretation Comme nts TSH, THIRD GENERATION (test code = 2821) 0.332 UIU/ML Jonatan Barber [id number] 00:00:00* Test Item Value Reference Range Interpretation Comme nts TSH, THIRD GENERATION (test code = 2821) 0.332 UIU/ML [id number] 00:00:00* Test Item Value Reference Range Interpretation Comme nts TSH, THIRD GENERATION (test code = 2821) 0.332 UIU/ML Jonatan Barber [id number] 00:00:00* Test Item Value Reference Range Interpretation Comme nts TSH, THIRD GENERATION (test code = 2821) 0.332 UIU/ML [id number] 00:00:00* Test Item Value Reference Range Interpretation Comme nts TSH, THIRD GENERATION (test code = 2821) 0.332 UIU/ML Jonatan GrimmPATITIS B SURFACE [id number] 00:00:00* Test Item Value Reference Range Interpretation Comme nts HEPATITIS B SURFACE AB (test code = 2737) NON-REACTIVE AFP, TUMOR [id number] 00:00:00* Test Item Value Reference Range Interpretation Comme nts AFP, TUMOR MARKER (test code = 37891) 3.7 NG/ML AFP, TUMOR [id number] 00:00:00* Test Item Value Reference Range Interpretation Comme nts AFP, TUMOR MARKER (test code = 83482) 3.7 NG/ML Jonatan EasonHEPATITIS A TOTAL AB REFLEX TO [id number] 00:00:00* Test Item Value Reference Range Interpretation Comme nts HEPATITIS A TOTAL AB (test c ode = 2725) REACTIVE HEPATITIS C [id number] 00:00:00* Test Item Value Reference Range Interpretation Comme nts HEPATITIS C ANTIBODY (test c ode = 4675) NON-REACTIVE HCV INDEX (test code = 21074) 0.11 HEPATITIS A TOTAL AB REFLEX TO [id number] 00:00:00* Test Item Value Reference Range Interpretation Comme nts HEPATITIS A TOTAL AB (test c ode = 2725) REACTIVE Jonatan EasonHEPATITIS A IgM [REFLEX]2018-12-03 00:00:00* Test Item Value Reference Range Interpretation Comme nts HEPATITIS A IgM (test code = 2728) NON-REACTIVE HEPATITIS C [id number] 00:00:00* Test Item Value Reference Range Interpretation Comme nts HEPATITIS C ANTIBODY (test c ode = 4675) NON-REACTIVE HCV INDEX (test code = 73721) 0.11 Jonatan EasonHEPATITIS A IgM [REFLEX]2018-12-03 00:00:00* Test Item Value Reference Range Interpretation Comme nts HEPATITIS A IgM (test code = 2728) NON-REACTIVE Jonatan EasonHIV AB/AG COMBO RFLX [id number] 00:00:00* Test Item Value Reference Range Interpretation Comme nts HIV 1/2 4TH GEN, RFLX CONF ( test code = 3514) NON-REACTIVE COMPREHENSIVE METABOLIC [id number] 00:00:00* Test Item Value Reference Range Interpretation Comme nts GLUCOSE (test code = 2217) 82 MG/DL BUN (test code = 2208) 9 MG/DL CREATININE (test code = 2214) 0.50 MG/DL eGFR AMER. (test cod e = 20425) 123 ML/MIN/1.73 eGFR NON- AMER. (test code = 72811) 106 ML/MIN/1.73 CALC BUN/CREAT (test code = [...] 2219) 50 U/L HIV AB/AG COMBO RFLX [id number] 00:00:00* Test Item Value Reference Range Interpretation Comme nts HIV 1/2 4TH GEN, RFLX CONF ( test code = 3514) NON-REACTIVE Jonatan Barber [id number] 00:00:00* Test Item Value Reference Range Interpretation Comme nts TSH, THIRD GENERATION (test code = 2821) 1.020 UIU/ML COMPREHENSIVE METABOLIC [id number] 00:00:00* Test Item Value Reference Range Interpretation Comme nts GLUCOSE (test code = 2217) 82 MG/DL BUN (test code = 2208) 9 MG/DL CREATININE (test code = 2214) 0.50 MG/DL eGFR AMER. (test cod e = 08145) 123 ML/MIN/1.73 eGFR NON- AMER. (test code = 76382) 106 ML/MIN/1.73 CALC BUN/CREAT (test code = [...] 2218) 90 U/L ALT (test code = 221) 50 U/L Jonatan Barber AustinHEPATITIS B SURFACE [id number] 00:00:00* Test Item Value Reference Range Interpretation Comme nts HEPATITIS B SURFACE AB (test code = 2737) NON-REACTIVE AFP, TUMOR [id number] 00:00:00* Test Item Value Reference Range Interpretation Comme nts AFP, TUMOR MARKER (test code = 06424) 3.7 NG/ML HEPATITIS A TOTAL AB REFLEX TO [id number] 00:00:00* Test Item Value Reference Range Interpretation Comme nts HEPATITIS A TOTAL AB (test c ode = 2725) REACTIVE [id number] 00:00:00* Test Item Value Reference Range Interpretation Comme nts TSH, THIRD GENERATION (test code = 2821) 1.020 UIU/ML Jonatan Barber AustinHEPATITIS B SURFACE [id number] 00:00:00* Test Item Value Reference Range Interpretation Comme nts HEPATITIS B SURFACE AB (test code = 2737) NON-REACTIVE Jonatan EasonHEPATITIS C [id number] 00:00:00* Test Item Value Reference Range Interpretation Comme nts HEPATITIS C ANTIBODY (test c ode = 4675) NON-REACTIVE HCV INDEX (test code = 63777) 0.11 HEPATITIS A IgM [REFLEX]2018-12-03 00:00:00* Test Item Value Reference Range Interpretation Comme nts HEPATITIS A IgM (test code = 2728) NON-REACTIVE HIV AB/AG COMBO RFLX [id number] 00:00:00* Test Item Value Reference Range Interpretation Comme nts HIV 1/2 4TH GEN, RFLX CONF ( test code = 3514) NON-REACTIVE COMPREHENSIVE METABOLIC [id number] 00:00:00* Test Item Value Reference Range Interpretation Comme nts GLUCOSE (test code = 2217) 82 MG/DL BUN (test code = 2208) 9 MG/DL CREATININE (test code = 2214) 0.50 MG/DL eGFR AMER. (test cod e = 91787) 123 ML/MIN/1.73 eGFR NON- AMER. (test code = 97369) 106 ML/MIN/1.73 CALC BUN/CREAT (test code = [...] ALT (test code = 2219) 50 U/L AFP, TUMOR [id number] 00:00:00* Test Item Value Reference Range Interpretation Comme nts AFP, TUMOR MARKER (test code = 45164) 3.7 NG/ML Jonatan Barber AustinHEPATITIS A TOTAL AB REFLEX TO [id number] 00:00:00* Test Item Value Reference Range Interpretation Comme nts HEPATITIS A TOTAL AB (test c ode = 2725) REACTIVE Jonatan Barber AustinHEPATITIS C [id number] 00:00:00* Test Item Value Reference Range Interpretation Comme nts HEPATITIS C ANTIBODY (test c ode = 4675) NON-REACTIVE HCV INDEX (test code = 47302) 0.11 Jonatan Barber [id number] 00:00:00* Test Item Value Reference Range Interpretation Comme nts TSH, THIRD GENERATION (test code = 2821) 1.020 UIU/ML HEPATITIS A IgM [REFLEX]2018-12-03 00:00:00* Test Item Value Reference Range Interpretation Comme nts HEPATITIS A IgM (test code = 2728) NON-REACTIVE Jonatan Barber AustinHEPATITIS B SURFACE [id number] 00:00:00* Test Item Value Reference Range Interpretation Comme nts HEPATITIS B SURFACE AB (test code = 2737) NON-REACTIVE HIV AB/AG COMBO RFLX [id number] 00:00:00* Test Item Value Reference Range Interpretation Comme nts HIV 1/2 4TH GEN, RFLX CONF ( test code = 3514) NON-REACTIVE Jonatan Barber AustinAFP, TUMOR [id number] 00:00:00* Test Item Value Reference Range Interpretation Comme nts AFP, TUMOR MARKER (test code = 00132) 3.7 NG/ML HEPATITIS A TOTAL AB REFLEX TO [id number] 00:00:00* Test Item Value Reference Range Interpretation Comme nts HEPATITIS A TOTAL AB (test c ode = 2725) REACTIVE COMPREHENSIVE METABOLIC [id number] 00:00:00* Test Item Value Reference Range Interpretation Comme nts GLUCOSE (test code = 2217) 82 MG/DL BUN (test code = 2208) 9 MG/DL CREATININE (test code = 2214) 0.50 MG/DL eGFR AMER. (test cod e = 91016) 123 ML/MIN/1.73 eGFR NON- AMER. (test code = 62503) 106 ML/MIN/1.73 CALC BUN/CREAT (test code = [...] (test code = 2219) 50 U/L Jonatan GrimmPATITIS C [id number] 00:00:00* Test Item Value Reference Range Interpretation Comme nts HEPATITIS C ANTIBODY (test c ode = 4675) NON-REACTIVE HCV INDEX (test code = 36833) 0.11 HEPATITIS A IgM [REFLEX]2018-12-03 00:00:00* Test Item Value Reference Range Interpretation Comme nts HEPATITIS A IgM (test code = 2728) NON-REACTIVE COMPREHENSIVE METABOLIC [id number] 00:00:00* Test Item Value Reference Range Interpretation Comme nts GLUCOSE (test code = 2217) 82 MG/DL BUN (test code = 2208) 9 MG/DL CREATININE (test code = 2214) 0.50 MG/DL eGFR AMER. (test cod e = 66803) 123 ML/MIN/1.73 eGFR NON- AMER. (test code = 36070) 106 ML/MIN/1.73 CALC BUN/CREAT (test code = [...] ALT (test code = 2219) 50 U/L [id number] 00:00:00* Test Item Value Reference Range Interpretation Comme nts TSH, THIRD GENERATION (test code = 2821) 1.020 UIU/ML Jonatan EasonAARONTIS B SURFACE [id number] 00:00:00* Test Item Value Reference Range Interpretation Comme nts HEPATITIS B SURFACE AB (test code = 2737) NON-REACTIVE Jonatan EasonHIV AB/AG COMBO RFLX [id number] 00:00:00* Test Item Value Reference Range Interpretation Comme nts HIV 1/2 4TH GEN, RFLX CONF ( test code = 3514) NON-REACTIVE COMPREHENSIVE METABOLIC [id number] 00:00:00* Test Item Value Reference Range Interpretation Comme nts GLUCOSE (test code = 2217) 82 MG/DL BUN (test code = 2208) 9 MG/DL CREATININE (test code = 2214) 0.50 MG/DL eGFR AMER. (test cod e = 96332) 123 ML/MIN/1.73 eGFR NON- AMER. (test code = 91481) 106 ML/MIN/1.73 CALC BUN/CREAT (test code = [...] ALT (test code = 2219) 50 U/L AFP, TUMOR [id number] 00:00:00* Test Item Value Reference Range Interpretation Comme nts AFP, TUMOR MARKER (test code = 86239) 3.7 NG/ML Jonatan EasonHEPATITIS A TOTAL AB REFLEX TO [id number] 00:00:00* Test Item Value Reference Range Interpretation Comme nts HEPATITIS A TOTAL AB (test c ode = 5105) REACTIVE Jonatan Barber AustinHEPATITIS C [id number] 00:00:00* Test Item Value Reference Range Interpretation Comme nts HEPATITIS C ANTIBODY (test c ode = 4675) NON-REACTIVE HCV INDEX (test code = 21612) 0.11 Jonatan [id number] 00:00:00* Test Item Value Reference Range Interpretation Comme nts TSH, THIRD GENERATION (test code = 2821) 1.020 UIU/ML HEPATITIS A IgM [REFLEX]2018-12-03 00:00:00* Test Item Value Reference Range Interpretation Comme nts HEPATITIS A IgM (test code = 2728) NON-REACTIVE Jonatan Barber AustinHEPATITIS B SURFACE [id number] 00:00:00* Test Item Value Reference Range Interpretation Comme nts HEPATITIS B SURFACE AB (test code = 2737) NON-REACTIVE HIV AB/AG COMBO RFLX [id number] 00:00:00* Test Item Value Reference Range Interpretation Comme nts HIV 1/2 4TH GEN, RFLX CONF ( test code = 3514) NON-REACTIVE HIV AB/AG COMBO RFLX [id number] 00:00:00* Test Item Value Reference Range Interpretation Comme nts HIV 1/2 4TH GEN, RFLX CONF ( test code = 3514) NON-REACTIVE Jonatan EasonAFP, TUMOR [id number] 00:00:00* Test Item Value Reference Range Interpretation Comme nts AFP, TUMOR MARKER (test code = 33005) 3.7 NG/ML HEPATITIS A TOTAL AB REFLEX TO [id number] 00:00:00* Test Item Value Reference Range Interpretation Comme nts HEPATITIS A TOTAL AB (test c ode = 2725) REACTIVE COMPREHENSIVE METABOLIC [id number] 00:00:00* Test Item Value Reference Range Interpretation Comme nts GLUCOSE (test code = 2217) 82 MG/DL BUN (test code = 2208) 9 MG/DL CREATININE (test code = 2214) 0.50 MG/DL eGFR AMER. (test cod e = 02795) 123 ML/MIN/1.73 eGFR NON- AMER. (test code = 38133) 106 ML/MIN/1.73 CALC BUN/CREAT (test code = [...] (test code = 2219) 50 U/L Jonatan EasonHEPATITIS C [id number] 00:00:00* Test Item Value Reference Range Interpretation Comme nts HEPATITIS C ANTIBODY (test c ode = 4675) NON-REACTIVE HCV INDEX (test code = 73464) 0.11 HEPATITIS A IgM [REFLEX]2018-12-03 00:00:00* Test Item Value Reference Range Interpretation Comme [facility] HEPATITIS A IgM (test code = 2728) NON-REACTIVE [id number] 00:00:00* Test Item Value Reference Range Interpretation Comme nts TSH, THIRD GENERATION (test code = 2821) 1.020 UIU/ML Jonatan EasonHEPATITIS B SURFACE [id number] 00:00:00* Test Item Value Reference Range Interpretation Comme [facility] HEPATITIS B SURFACE AB (test code = 2737) NON-REACTIVE HEPATITIS B SURFACE [id number] 00:00:00* Test Item Value Reference Range Interpretation Comme nts HEPATITIS B SURFACE AB (test code = 2737) NON-REACTIVE Jonatan EasonHIV AB/AG COMBO RFLX [id number] 00:00:00* Test Item Value Reference Range Interpretation Comme [facility] HIV 1/2 4TH GEN, RFLX CONF ( test code = 3514) NON-REACTIVE AFP, TUMOR [id number] 00:00:00* Test Item Value Reference Range Interpretation Comme nts AFP, TUMOR MARKER (test code = 73343) 3.7 NG/ML Jonatan EasonCOMPREHENSIVE METABOLIC [id number] 00:00:00* Test Item Value Reference Range Interpretation Comme nts GLUCOSE (test code = 2217) 82 MG/DL BUN (test code = 2208) 9 MG/DL CREATININE (test code = 2214) 0.50 MG/DL eGFR AMER. (test cod e = 98362) 123 ML/MIN/1.73 eGFR NON- AMER. (test code = 62588) 106 ML/MIN/1.73 CALC BUN/CREAT (test code = [...] U/L HEPATITIS A TOTAL AB REFLEX TO [id number] 00:00:00* Test Item Value Reference Range Interpretation Comme nts HEPATITIS A TOTAL AB (test c ode = 2725) REACTIVE Jonatan Barber LandyHEPATITIS C [id number] 00:00:00* Test Item Value Reference Range Interpretation Comme nts HEPATITIS C ANTIBODY (test c ode = 4675) NON-REACTIVE HCV INDEX (test code = 88866) 0.11 Jonatan Barber LandyCOMPREHENSIVE METABOLIC [id number] 00:00:00* Test Item Value Reference Range Interpretation Comme nts GLUCOSE (test code = 2217) 82 MG/DL BUN (test code = 2208) 9 MG/DL CREATININE (test code = 2214) 0.50 MG/DL eGFR AMER. (test cod e = 86135) 123 ML/MIN/1.73 eGFR NON- AMER. (test code = 64691) 106 ML/MIN/1.73 CALC BUN/CREAT (test code = [...] (test code = 2219) 50 U/L Jonatan EasonHEPATITIS A IgM [REFLEX]2018-12-03 00:00:00* Test Item Value Reference Range Interpretation Comme nts HEPATITIS A IgM (test code = 2728) NON-REACTIVE Jonatan Barber [id number] 00:00:00* Test Item Value Reference Range Interpretation Comme nts TSH, THIRD GENERATION (test code = 2821) 1.020 UIU/ML HEPATITIS B SURFACE [id number] 00:00:00* Test Item Value Reference Range Interpretation Comme nts HEPATITIS B SURFACE AB (test code = 2737) NON-REACTIVE HIV AB/AG COMBO RFLX [id number] 00:00:00* Test Item Value Reference Range Interpretation Comme nts HIV 1/2 4TH GEN, RFLX CONF ( test code = 3514) NON-REACTIVE Jonatan EasonCOMPREHENSIVE METABOLIC [id number] 00:00:00* Test Item Value Reference Range Interpretation Comme nts GLUCOSE (test code = 2217) 82 MG/DL BUN (test code = 2208) 9 MG/DL CREATININE (test code = 2214) 0.50 MG/DL eGFR AMER. (test cod e = 34368) 123 ML/MIN/1.73 eGFR NON- AMER. (test code = 46754) 106 ML/MIN/1.73 CALC BUN/CREAT (test code = [...] = 2219) 50 U/L Jonatan EasonAFP, TUMOR [id number] 00:00:00* Test Item Value Reference Range Interpretation Comme nts AFP, TUMOR MARKER (test code = 77718) 3.7 NG/ML HEPATITIS A TOTAL AB REFLEX TO [id number] 00:00:00* Test Item Value Reference Range Interpretation Comme nts HEPATITIS A TOTAL AB (test c ode = 2725) REACTIVE HIV AB/AG COMBO RFLX [id number] 00:00:00* Test Item Value Reference Range Interpretation Comme nts HIV 1/2 4TH GEN, RFLX CONF ( test code = 3514) NON-REACTIVE Jonatan [id number] 00:00:00* Test Item Value Reference Range Interpretation Comme nts TSH, THIRD GENERATION (test code = 2821) 1.020 UIU/ML Jonatan EasonHEPATITIS C [id number] 00:00:00* Test Item Value Reference Range Interpretation Comme nts HEPATITIS C ANTIBODY (test c ode = 4675) NON-REACTIVE HCV INDEX (test code = 58967) 0.11 HEPATITIS A IgM [REFLEX]2018-12-03 00:00:00* Test Item Value Reference Range Interpretation Comme nts HEPATITIS A IgM (test code = 2728) NON-REACTIVE HEPATITIS B SURFACE [id number] 00:00:00* Test Item Value Reference Range Interpretation Comme nts HEPATITIS B SURFACE AB (test code = 2737) NON-REACTIVE Jonatan EasonAFP, TUMOR [id number] 00:00:00* Test Item Value Reference Range Interpretation Comme nts AFP, TUMOR MARKER (test code = 05306) 3.7 NG/ML Jonatan EasonHIV AB/AG COMBO RFLX [id number] 00:00:00* Test Item Value Reference Range Interpretation Comme alber HIV 1/2 4TH GEN, RFLX CONF ( test code = 3514) NON-REACTIVE Jonatan EasonHEPATITIS A TOTAL AB REFLEX TO [id number] 00:00:00* Test Item Value Reference Range Interpretation Comme nts HEPATITIS A TOTAL AB (test c ode = 2725) REACTIVE Jonatan EasonHEPATITIS C [id number] 00:00:00* Test Item Value Reference Range Interpretation Comme [facility] HEPATITIS C ANTIBODY (test c ode = 4675) NON-REACTIVE HCV INDEX (test code = 21926) 0.11 Jonatan [id number] 00:00:00* Test Item Value Reference Range Interpretation Comme nts TSH, THIRD GENERATION (test code = 2821) 1.020 UIU/ML Jonatan GrimmPATITIS A IgM [REFLEX]2018-12-03 00:00:00* Test Item Value Reference Range Interpretation Comme alber HEPATITIS A IgM (test code = 2728) NON-REACTIVE Jonatan EasonHEPATITIS B SURFACE [id number] 00:00:00* Test Item Value Reference Range Interpretation Comme nts HEPATITIS B SURFACE AB (test code = 2737) NON-REACTIVE Jonatan EasonCOMPREHENSIVE METABOLIC [id number] 00:00:00* Test Item Value Reference Range Interpretation Comme nts GLUCOSE (test code = 2217) 82 MG/DL BUN (test code = 2208) 9 MG/DL CREATININE (test code = 2214) 0.50 MG/DL eGFR AMER. (test cod e = 49345) 123 ML/MIN/1.73 eGFR NON- AMER. (test code = 58732) 106 ML/MIN/1.73 CALC BUN/CREAT (test code = [...] (test code = 2219) 50 U/L Jonatan EasonHEPATITIS A TOTAL AB REFLEX TO [id number] 00:00:00* Test Item Value Reference Range Interpretation Comme alber HEPATITIS A TOTAL AB (test c ode = 2725) REACTIVE Jonatan EasonAFP, TUMOR [id number] 00:00:00* Test Item Value Reference Range Interpretation Comme alber AFP, TUMOR MARKER (test code = 10780) 3.7 NG/ML Jonatan GrimmPATITIS C [id number] 00:00:00* Test Item Value Reference Range Interpretation Comme alber HEPATITIS C ANTIBODY (test c ode = 4675) NON-REACTIVE HCV INDEX (test code = 97428) 0.11 Jonatan GrimmPATITIS A IgM [REFLEX]2018-12-03 00:00:00* Test Item Value Reference Range Interpretation Comme alber HEPATITIS A IgM (test code = 2728) NON-REACTIVE Jonatan EasonCOMPREHENSIVE METABOLIC [id number] 00:00:00* Test Item Value Reference Range Interpretation Comme nts GLUCOSE (test code = 2217) 82 MG/DL BUN (test code = 2208) 9 MG/DL CREATININE (test code = 2214) 0.50 MG/DL eGFR AMER. (test cod e = 92037) 123 ML/MIN/1.73 eGFR NON- AMER. (test code = 20305) 106 ML/MIN/1.73 CALC BUN/CREAT (test code = [...] (test code = 2219) 50 U/L Jonatan EasonHIV AB/AG COMBO RFLX [id number] 00:00:00* Test Item Value Reference Range Interpretation Comme nts HIV 1/2 4TH GEN, RFLX CONF ( test code = 3514) NON-REACTIVE Jonatan Barber AustinHEPATITIS B SURFACE [id number] 00:00:00* Test Item Value Reference Range Interpretation Comme nts HEPATITIS B SURFACE AB (test code = 2737) NON-REACTIVE Jonatan Barber [id number] 00:00:00* Test Item Value Reference Range Interpretation Comme nts TSH, THIRD GENERATION (test code = 2821) 1.020 UIU/ML Jonatan EasonAFP, TUMOR [id number] 00:00:00* Test Item Value Reference Range Interpretation Comme nts AFP, TUMOR MARKER (test code = 32054) 3.7 NG/ML Jonatan EasonHEPATITIS A TOTAL AB REFLEX TO [id number] 00:00:00* Test Item Value Reference Range Interpretation Comme nts HEPATITIS A TOTAL AB (test c ode = 2725) REACTIVE Jonatan Barber AustinHEPATITIS B SURFACE [id number] 00:00:00* Test Item Value Reference Range Interpretation Comme nts HEPATITIS B SURFACE AB (test code = 2737) NON-REACTIVE Jonatan EasonHEPATITIS C [id number] 00:00:00* Test Item Value Reference Range Interpretation Comme nts HEPATITIS C ANTIBODY (test c ode = 4675) NON-REACTIVE HCV INDEX (test code = 24645) 0.11 Jonatan EasonHEPATITIS A IgM [REFLEX]2018-12-03 00:00:00* Test Item Value Reference Range Interpretation Comme nts HEPATITIS A IgM (test code = 2728) NON-REACTIVE Jonatan [id number] 00:00:00* Test Item Value Reference Range Interpretation Comme nts TSH, THIRD GENERATION (test code = 2821) 1.020 UIU/ML Jonatan EasonHEPATITIS A TOTAL AB REFLEX TO [id number] 00:00:00* Test Item Value Reference Range Interpretation Comme nts HEPATITIS A TOTAL AB (test c ode = 2725) REACTIVE Jonatan EasonAFP, TUMOR [id number] 00:00:00* Test Item Value Reference Range Interpretation Comme nts AFP, TUMOR MARKER (test code = 78810) 3.7 NG/ML Jonatan GrimmPATITIS C [id number] 00:00:00* Test Item Value Reference Range Interpretation Comme nts HEPATITIS C ANTIBODY (test c ode = 4675) NON-REACTIVE HCV INDEX (test code = 58800) 0.11 Jonatan EasonHEPATITIS A IgM [REFLEX]2018-12-03 00:00:00* Test Item Value Reference Range Interpretation Comme nts HEPATITIS A IgM (test code = 2728) NON-REACTIVE Jonatan EasonCOMPREHENSIVE METABOLIC [id number] 00:00:00* Test Item Value Reference Range Interpretation Comme nts GLUCOSE (test code = 2217) 82 MG/DL BUN (test code = 2208) 9 MG/DL CREATININE (test code = 2214) 0.50 MG/DL eGFR AMER. (test cod e = 73685) 123 ML/MIN/1.73 eGFR NON- AMER. (test code = 83845) 106 ML/MIN/1.73 CALC BUN/CREAT (test code = [...] (test code = 2219) 50 U/L Jonatan EasonHIV AB/AG COMBO RFLX [id number] 00:00:00* Test Item Value Reference Range Interpretation Comme nts HIV 1/2 4TH GEN, RFLX CONF ( test code = 3514) NON-REACTIVE Jonatan [id number] 00:00:00* Test Item Value Reference Range Interpretation Comme nts TSH, THIRD GENERATION (test code = 2821) 1.020 UIU/ML Jonatan EasonHEPATITIS B SURFACE [id number] 00:00:00* Test Item Value Reference Range Interpretation Comme nts HEPATITIS B SURFACE AB (test code = 2737) NON-REACTIVE Jonatan EasonHEPATITIS A TOTAL AB REFLEX TO [id number] 00:00:00* Test Item Value Reference Range Interpretation Comme nts HEPATITIS A TOTAL AB (test c ode = 2725) REACTIVE Jonatan EasonAFP, TUMOR [id number] 00:00:00* Test Item Value Reference Range Interpretation Comme nts AFP, TUMOR MARKER (test code = 33028) 3.7 NG/ML Jonatan EasonHEPATITIS C [id number] 00:00:00* Test Item Value Reference Range Interpretation Comme nts HEPATITIS C ANTIBODY (test c ode = 4675) NON-REACTIVE HCV INDEX (test code = 31259) 0.11 Jonatan EaosnHEPATITIS A IgM [REFLEX]2018-12-03 00:00:00* Test Item Value Reference Range Interpretation Comme nts HEPATITIS A IgM (test code = 2728) NON-REACTIVE Jonatan EasonHIV AB/AG COMBO RFLX [id number] 00:00:00* Test Item Value Reference Range Interpretation Comme nts HIV 1/2 4TH GEN, RFLX CONF ( test code = 3514) NON-REACTIVE Jonatan EasonCOMPREHENSIVE METABOLIC [id number] 00:00:00* Test Item Value Reference Range Interpretation Comme nts GLUCOSE (test code = 2217) 82 MG/DL BUN (test code = 2208) 9 MG/DL CREATININE (test code = 2214) 0.50 MG/DL eGFR AMER. (test cod e = ) 123 ML/MIN/1.73 eGFR NON- AMER. (test code = 93083) 106 ML/MIN/1.73 CALC BUN/CREAT (test code = 2235) 18 RATIO SODIUM (test code = 2231) 142 MEQ/L POTASSIUM (test code = 2228) 3.7 MEQ/L CHLORIDE (test code = 2215) 107 MEQ/L CARBON DIOXIDE (test code = 2206) 24 MEQ/L CALCIUM (test code = 2209) 8.9 MG/DL PROTEIN, TOTAL (test code = 222) 6.9 G/DL ALBUMIN (test code = 2201) 3.8 G/DL CALC GLOBULIN (test code = 2240) 3.1 G/DL CALC A/G RATIO (test code = 2234) 1.2 RATIO BILIRUBIN, TOTAL (test code = 2207) 0.9 MG/DL ALKALINE PHOSPHATASE (test code = 2204) 160 U/L AST (test code = 2218) 90 U/L ALT (test code = 2219) 50 U/L Jonatan EasonHEPATITIS B SURFACE [id number] 00:00:00* Test Item Value Reference Range Interpretation Comme nts HEPATITIS B SURFACE AB (test code = 2737) NON-REACTIVE Jonatan Barber [id number] 00:00:00* Test Item Value Reference Range Interpretation Comme nts TSH, THIRD GENERATION (test code = 2821) 1.020 UIU/ML Jonatan Barber [id number] 00:00:00* Test Item Value Reference Range Interpretation Comme nts TSH, THIRD GENERATION (test code = 2821) 1.020 UIU/ML HEPATITIS A TOTAL AB REFLEX TO [id number] 00:00:00* Test Item Value Reference Range Interpretation Comme nts HEPATITIS A TOTAL AB (test c ode = 2725) REACTIVE Jonatan EasonHIV AB/AG COMBO RFLX [id number] 00:00:00* Test Item Value Reference Range Interpretation Comme nts HIV 1/2 4TH GEN, RFLX CONF ( test code = 3514) NON-REACTIVE AFP, TUMOR [id number] 00:00:00* Test Item Value Reference Range Interpretation Comme nts AFP, TUMOR MARKER (test code = 74232) 3.7 NG/ML Jonatan EasonCOMPREHENSIVE METABOLIC [id number] 00:00:00* Test Item Value Reference Range Interpretation Comme nts GLUCOSE (test code = 2217) 82 MG/DL BUN (test code = 2208) 9 MG/DL CREATININE (test code = 2214) 0.50 MG/DL eGFR AMER. (test cod e = 96469) 123 ML/MIN/1.73 eGFR NON- AMER. (test code = 74484) 106 ML/MIN/1.73 CALC BUN/CREAT (test code = [...] (test code = 2219) 50 U/L HEPATITIS C [id number] 00:00:00* Test Item Value Reference Range Interpretation Comme nts HEPATITIS C ANTIBODY (test c ode = 4675) NON-REACTIVE HCV INDEX (test code = 52910) 0.11 Jonatan Barber AustinHEPATITIS A IgM [REFLEX]2018-12-03 00:00:00* Test Item Value Reference Range Interpretation Comme nts HEPATITIS A IgM (test code = 2728) NON-REACTIVE Jonatan EasonHEPATITIS A TOTAL AB REFLEX TO [id number] 00:00:00* Test Item Value Reference Range Interpretation Comme nts HEPATITIS A TOTAL AB (test c ode = 2725) REACTIVE AFP, TUMOR [id number] 00:00:00* Test Item Value Reference Range Interpretation Comme nts AFP, TUMOR MARKER (test code = 45016) 3.7 NG/ML HIV AB/AG COMBO RFLX [id number] 00:00:00* Test Item Value Reference Range Interpretation Comme nts HIV 1/2 4TH GEN, RFLX CONF ( test code = 3514) NON-REACTIVE Jonatan EasonCOMPREHENSIVE METABOLIC [id number] 00:00:00* Test Item Value Reference Range Interpretation Comme nts GLUCOSE (test code = 2217) 82 MG/DL BUN (test code = 2208) 9 MG/DL CREATININE (test code = 2214) 0.50 MG/DL eGFR AMER. (test cod e = 17180) 123 ML/MIN/1.73 eGFR NON- AMER. (test code = 57140) 106 ML/MIN/1.73 CALC BUN/CREAT (test code = [...] (test code = 2219) 50 U/L Jonatan [id number] 00:00:00* Test Item Value Reference Range Interpretation Comme nts TSH, THIRD GENERATION (test code = 2821) 1.020 UIU/ML HEPATITIS B SURFACE [id number] 00:00:00* Test Item Value Reference Range Interpretation Comme nts HEPATITIS B SURFACE AB (test code = 2737) NON-REACTIVE HEPATITIS C [id number] 00:00:00* Test Item Value Reference Range Interpretation Comme nts HEPATITIS C ANTIBODY (test c ode = 4675) NON-REACTIVE HCV INDEX (test code = 92323) 0.11 [id number] 00:00:00* Test Item Value Reference Range Interpretation Comme nts TSH, THIRD GENERATION (test code = 2821) 1.020 UIU/ML Jonatan EasonHEPATITIS B SURFACE [id number] 00:00:00* Test Item Value Reference Range Interpretation Comme nts HEPATITIS B SURFACE AB (test code = 2737) NON-REACTIVE Jonatan Barber AustinAFP, TUMOR [id number] 00:00:00* Test Item Value Reference Range Interpretation Comme nts AFP, TUMOR MARKER (test code = 22255) 3.7 NG/ML HEPATITIS A TOTAL AB REFLEX TO [id number] 00:00:00* Test Item Value Reference Range Interpretation Comme nts HEPATITIS A TOTAL AB (test c ode = 2725) REACTIVE HEPATITIS A IgM [REFLEX]2018-12-03 00:00:00* Test Item Value Reference Range Interpretation Comme nts HEPATITIS A IgM (test code = 2728) NON-REACTIVE HEPATITIS A TOTAL AB REFLEX TO [id number] 00:00:00* Test Item Value Reference Range Interpretation Comme nts HEPATITIS A TOTAL AB (test c ode = 2725) REACTIVE Jonatan EasonHEPATITIS C [id number] 00:00:00* Test Item Value Reference Range Interpretation Comme nts HEPATITIS C ANTIBODY (test c ode = 4675) NON-REACTIVE HCV INDEX (test code = 87620) 0.11 AFP, TUMOR [id number] 00:00:00* Test Item Value Reference Range Interpretation Comme nts AFP, TUMOR MARKER (test code = 27715) 3.7 NG/ML Jonatan Barber AustinHEPATITIS A IgM [REFLEX]2018-12-03 00:00:00* Test Item Value Reference Range Interpretation Comme nts HEPATITIS A IgM (test code = 2728) NON-REACTIVE HEPATITIS C [id number] 00:00:00* Test Item Value Reference Range Interpretation Comme nts HEPATITIS C ANTIBODY (test c ode = 4675) NON-REACTIVE HCV INDEX (test code = 82126) 0.11 Jonatan EasonHEPATITIS A IgM [REFLEX]2018-12-03 00:00:00* Test Item Value Reference Range Interpretation Comme nts HEPATITIS A IgM (test code = 2728) NON-REACTIVE Jonatan Barber AustinHIV AB/AG COMBO RFLX [id number] 00:00:00* Test Item Value Reference Range Interpretation Comme nts HIV 1/2 4TH GEN, RFLX CONF ( test code = 3514) NON-REACTIVE Jonatan F AustinHIV AB/AG COMBO RFLX [id number] 00:00:00* Test Item Value Reference Range Interpretation Comme nts HIV 1/2 4TH GEN, RFLX CONF ( test code = 3514) NON-REACTIVE COMPREHENSIVE METABOLIC [id number] 00:00:00* Test Item Value Reference Range Interpretation Comme nts GLUCOSE (test code = 2217) 82 MG/DL BUN (test code = 2208) 9 MG/DL CREATININE (test code = 2214) 0.50 MG/DL eGFR AMER. (test cod e = 36341) 123 ML/MIN/1.73 eGFR NON- AMER. (test code = 11244) 106 ML/MIN/1.73 CALC BUN/CREAT (test code = [...] ALT (test code = 2219) 50 U/L COMPREHENSIVE METABOLIC [id number] 00:00:00* Test Item Value Reference Range Interpretation Comme nts GLUCOSE (test code = 2217) 82 MG/DL BUN (test code = 2208) 9 MG/DL CREATININE (test code = 2214) 0.50 MG/DL eGFR AMER. (test cod e = 61517) 123 ML/MIN/1.73 eGFR NON- AMER. (test code = 47257) 106 ML/MIN/1.73 CALC BUN/CREAT (test code = [...] code = 2219) 50 U/L Jonatan Barber [id number] 00:00:00* Test Item Value Reference Range Interpretation Comme nts TSH, THIRD GENERATION (test code = 2821) 1.020 UIU/ML Jonatan Barber NyeHEPATITIS B SURFACE [id number] 00:00:00* Test Item Value Reference Range Interpretation Comme nts HEPATITIS B SURFACE AB (test code = 2737) NON-REACTIVE Jonatan Barber [id number] 00:00:00* Test Item Value Reference Range Interpretation Comme nts TSH, THIRD GENERATION (test code = 2821) 1.020 UIU/ML CBC W/AUTO [id number] 00:00:00* Test Item Value Reference Range Interpretation [...] (test code = 1015) 114 K/UL Jonatan EasonLIVER (HEPATIC) FUNCTION [id number] 00:00:00* Test Item Value Reference Range Interpretation [...] = 2219) 54 U/L LIVER (HEPATIC) FUNCTION [id number] 00:00:00* Test Item Value Reference Range Interpretation [...] (test code = 2219) 54 U/L Jonatan Elisabeth LandyCBC W/AUTO [id number] 00:00:00* Test Item Value Reference Range Interpretation [...] = 1015) 114 K/UL LIVER (HEPATIC) FUNCTION [id number] 00:00:00* Test Item Value Reference Range Interpretation Comme nts PROTEIN, TOTAL (test code = 2229) 6.9 G/DL ALBUMIN (test code = 2201) 3.9 G/DL BILIRUBIN, TOTAL (test code = 7) 1.2 MG/DL BILIRUBIN, DIRECT (test code = 2021) 0.5 MG/DL ALKALINE PHOSPHATASE (test c ode = 4) 152 U/L AST (test code = 2218) 102 U/L ALT (test code = 2219) 54 U/L CBC W/AUTO [id number] 00:00:00* Test Item Value Reference Range Interpretation [...] code = 1015) 114 K/UL Jonatan Barber LandyCBC W/AUTO [id number] 00:00:00* Test Item Value Reference Range Interpretation [...] = 1015) 114 K/UL LIVER (HEPATIC) FUNCTION [id number] 00:00:00* Test Item Value Reference Range Interpretation Comme nts PROTEIN, TOTAL (test code = 2229) 6.9 G/DL ALBUMIN (test code = 2201) 3.9 G/DL BILIRUBIN, TOTAL (test code = 2207) 1.2 MG/DL BILIRUBIN, DIRECT (test code = 2021) 0.5 MG/DL ALKALINE PHOSPHATASE (test c ode = 2203) 152 U/L AST (test code = 2218) 102 U/L ALT (test code = 2219) 54 U/L Jonatan EasonCBC W/AUTO [id number] 00:00:00* Test Item Value Reference Range Interpretation [...] (test code = 1015) 114 K/UL Jonatan EasonLIVER (HEPATIC) FUNCTION [id number] 00:00:00* Test Item Value Reference Range Interpretation [...] = 2219) 54 U/L LIVER (HEPATIC) FUNCTION [id number] 00:00:00* Test Item Value Reference Range Interpretation [...] code = 2219) 54 U/L CBC W/AUTO [id number] 00:00:00* Test Item Value Reference Range Interpretation [...] = 1015) 114 K/UL LIVER (HEPATIC) FUNCTION [id number] 00:00:00* Test Item Value Reference Range Interpretation [...] = 2219) 54 U/L Jonatan EasonCBC W/AUTO [id number] 00:00:00* Test Item Value Reference Range Interpretation [...] code = 1015) 114 K/UL Jonatan Barber [facility] W/AUTO [id number] 00:00:00* Test Item Value Reference Range Interpretation [...] = 1015) 114 K/UL LIVER (HEPATIC) FUNCTION [id number] 00:00:00* Test Item Value Reference Range Interpretation Comme nts PROTEIN, TOTAL (test code = 2229) 6.9 G/DL ALBUMIN (test code = 2201) 3.9 G/DL BILIRUBIN, TOTAL (test code = 2206) 1.2 MG/DL BILIRUBIN, DIRECT (test code = 2021) 0.5 MG/DL ALKALINE PHOSPHATASE (test c ode = 2204) 152 U/L AST (test code = 2218) 102 U/L ALT (test code = 2219) 54 U/L CBC W/AUTO [id number] 00:00:00* Test Item Value Reference Range Interpretation [...] = 1015) 114 K/UL LIVER (HEPATIC) FUNCTION [id number] 00:00:00* Test Item Value Reference Range Interpretation [...] code = 2219) 54 U/L Jonatan Barber LandyCBC W/AUTO [id number] 00:00:00* Test Item Value Reference Range Interpretation [...] (test code = 1015) 114 K/UL Jonatan Vang (HEPATIC) FUNCTION [id number] 00:00:00* Test Item Value Reference Range Interpretation [...] (test code = 2219) 54 U/L Jonatan Vang (HEPATIC) FUNCTION [id number] 00:00:00* Test Item Value Reference Range Interpretation [...] (test code = 2219) 54 U/L Jonatan Francois W/AUTO [id number] 00:00:00* Test Item Value Reference Range Interpretation [...] code = 1015) 114 K/UL Jonatan Barber [facility] FUNCTION [id number] 00:00:00* Test Item Value Reference Range Interpretation [...] (test code = 2219) 54 U/L [facility]CR[facility] [id number] 00:00:00* Test Item Value Reference Range Interpretation [...] (test code = 1015) 114 K/UL Jonatan EasonCBC W/AUTO [id number] 00:00:00* Test Item Value Reference Range Interpretation [...] (test code = 1015) 114 K/UL Jonatan Vang (HEPATIC) FUNCTION [id number] 00:00:00* Test Item Value Reference Range Interpretation Comme nts PROTEIN, TOTAL (test code = 2229) 6.9 G/DL ALBUMIN (test code = 2201) 3.9 G/DL BILIRUBIN, TOTAL (test code = 2207) 1.2 MG/DL BILIRUBIN, DIRECT (test code = 2021) 0.5 MG/DL ALKALINE PHOSPHATASE (test c ode = 220) 152 U/L AST (test code = 2218) 102 U/L ALT (test code = 2219) 54 U/L Jonatan FrancoisC W/AUTO [id number] 00:00:00* Test Item Value Reference Range Interpretation [...] (test code = 1015) 114 K/UL Jonatan Vang (HEPATIC) FUNCTION [id number] 00:00:00* Test Item Value Reference Range Interpretation [...] (test code = 2219) 54 U/L [facility]CR[facility]O [id number] 00:00:00* Test Item Value Reference Range Interpretation [...] code = 1015) 114 K/UL Jonatan Barber LandyVER (HEPATIC) FUNCTION [id number] 00:00:00* Test Item Value Reference Range Interpretation [...] = 2219) 54 U/L LIVER (HEPATIC) FUNCTION [id number] 00:00:00* Test Item Value Reference Range Interpretation [...] code = 2219) 54 U/L Jonatan Barber [facility] W/AUTO [id number] 00:00:00* Test Item Value Reference Range Interpretation [...] code = 1015) 114 K/UL Jonatan Barber [facility] W/AUTO [id number] 00:00:00* Test Item Value Reference Range Interpretation [...] = 1015) 114 K/UL LIVER (HEPATIC) FUNCTION [id number] 00:00:00* Test Item Value Reference Range Interpretation Comme nts PROTEIN, TOTAL (test code = 2229) 6.9 G/DL ALBUMIN (test code = 2201) 3.9 G/DL BILIRUBIN, TOTAL (test code = 2206) 1.2 MG/DL BILIRUBIN, DIRECT (test code = 2021) 0.5 MG/DL ALKALINE PHOSPHATASE (test c ode = 2203) 152 U/L AST (test code = 2218) 102 U/L ALT (test code = 2219) 54 U/L Jonatan EasonSTEVEDIGNITY [facility] (HEPATIC) FUNCTION [id number] 00:00:00* Test Item Value Reference Range Interpretation Comme nts PROTEIN, TOTAL (test code = 2229) 6.9 G/DL ALBUMIN (test code = 2201) 3.9 G/DL BILIRUBIN, TOTAL (test code = 2206) 1.2 MG/DL BILIRUBIN, DIRECT (test code = 2021) 0.5 MG/DL ALKALINE PHOSPHATASE (test c ode = 2203) 152 U/L AST (test code = 2218) 102 U/L ALT (test code = 221) 54 U/L CBC W/AUTO [id number] 00:00:00* Test Item Value Reference Range Interpretation [...] COUNT (test code = 1015) 114 K/UL [id number] 00:00:00* Test Item Value Reference Range Interpretation Comme nts TSH, THIRD GENERATION (test code = 2821) 0.718 UIU/ML Jonatan [id number] 00:00:00* Test Item Value Reference Range Interpretation Comme nts TSH, THIRD GENERATION (test code = 2821) 0.718 UIU/ML COMPREHENSIVE METABOLIC [id number] 00:00:00* Test Item Value Reference Range Interpretation Comme nts GLUCOSE (test code = 2217) 89 MG/DL BUN (test code = 2208) 8 MG/DL CREATININE (test code = 2214) 0.58 MG/DL eGFR AMER. (test cod e = 25651) 117 ML/MIN/1.73 eGFR NON- AMER. (test code = 87712) 101 ML/MIN/1.73 CALC BUN/CREAT (test code = [...] (test code = 2219) 80 U/L LIPID [id number] 00:00:00* Test Item Value Reference Range Interpretation Comme nts CHOLESTEROL (test code = 2210) 167 MG/DL TRIGLYCERIDES (test code = 2232) 158 MG/DL HDL CHOLESTEROL (test code = 2220) 56 MG/DL CALC LDL CHOL (test code = 2237) 79 MG/DL RISK RATIO LDL/HDL (test cod e = 2238) 1.42 RATIO COMPREHENSIVE METABOLIC [id number] 00:00:00* Test Item Value Reference Range Interpretation Comme nts GLUCOSE (test code = 2217) 89 MG/DL BUN (test code = 2208) 8 MG/DL CREATININE (test code = 2214) 0.58 MG/DL eGFR AMER. (test cod e = 34733) 117 ML/MIN/1.73 eGFR NON- AMER. (test code = 07716) 101 ML/MIN/1.73 CALC BUN/CREAT (test code = [...] code = 2219) 80 U/L Jonatan Barber [id number] 00:00:00* Test Item Value Reference Range Interpretation Comme nts TSH, THIRD GENERATION (test code = 2821) 0.718 UIU/ML LIPID [id number] 00:00:00* Test Item Value Reference Range Interpretation Comme nts CHOLESTEROL (test code = 2210) 167 MG/DL TRIGLYCERIDES (test code = 2232) 158 MG/DL HDL CHOLESTEROL (test code = 2220) 56 MG/DL CALC LDL CHOL (test code = 2237) 79 MG/DL RISK RATIO LDL/HDL (test cod e = 2238) 1.42 RATIO Jonatan Barber [id number] 00:00:00* Test Item Value Reference Range Interpretation Comme nts TSH, THIRD GENERATION (test code = 2821) 0.718 UIU/ML Jonatan Barber NyeCOMPREHENSIVE METABOLIC [id number] 00:00:00* Test Item Value Reference Range Interpretation Comme nts GLUCOSE (test code = 2217) 89 MG/DL BUN (test code = 2208) 8 MG/DL CREATININE (test code = 2214) 0.58 MG/DL eGFR AMER. (test cod e = 56875) 117 ML/MIN/1.73 eGFR NON- AMER. (test code = 25002) 101 ML/MIN/1.73 CALC BUN/CREAT (test code = [...] (test code = 2219) 80 U/L LIPID [id number] 00:00:00* Test Item Value Reference Range Interpretation Comme nts CHOLESTEROL (test code = 2210) 167 MG/DL TRIGLYCERIDES (test code = 2232) 158 MG/DL HDL CHOLESTEROL (test code = 2220) 56 MG/DL CALC LDL CHOL (test code = 2237) 79 MG/DL RISK RATIO LDL/HDL (test cod e = 2238) 1.42 RATIO [id number] 00:00:00* Test Item Value Reference Range Interpretation Comme nts TSH, THIRD GENERATION (test code = 2821) 0.718 UIU/ML COMPREHENSIVE METABOLIC [id number] 00:00:00* Test Item Value Reference Range Interpretation Comme nts GLUCOSE (test code = 2217) 89 MG/DL BUN (test code = 2208) 8 MG/DL CREATININE (test code = 2214) 0.58 MG/DL eGFR AMER. (test cod e = 09618) 117 ML/MIN/1.73 eGFR NON- AMER. (test code = 08240) 101 ML/MIN/1.73 CALC BUN/CREAT (test code = [...] = 2219) 80 U/L Jonatan Barber AustinLIPID [id number] 00:00:00* Test Item Value Reference Range Interpretation Comme nts CHOLESTEROL (test code = 2210) 167 MG/DL TRIGLYCERIDES (test code = 2232) 158 MG/DL HDL CHOLESTEROL (test code = 2220) 56 MG/DL CALC LDL CHOL (test code = 2237) 79 MG/DL RISK RATIO LDL/HDL (test cod e = 2238) 1.42 RATIO Jonatan EasonCOMPREHENSIVE METABOLIC [id number] 00:00:00* Test Item Value Reference Range Interpretation Comme nts GLUCOSE (test code = 2217) 89 MG/DL BUN (test code = 2208) 8 MG/DL CREATININE (test code = 2214) 0.58 MG/DL eGFR AMER. (test cod e = 53455) 117 ML/MIN/1.73 eGFR NON- AMER. (test code = 78891) 101 ML/MIN/1.73 CALC BUN/CREAT (test code = [...] ALT (test code = 2219) 80 U/L [id number] 00:00:00* Test Item Value Reference Range Interpretation Comme nts TSH, THIRD GENERATION (test code = 2821) 0.718 UIU/ML Jonatan EasonCOMPREHENSIVE METABOLIC [id number] 00:00:00* Test Item Value Reference Range Interpretation Comme nts GLUCOSE (test code = 2217) 89 MG/DL BUN (test code = 2208) 8 MG/DL CREATININE (test code = 2214) 0.58 MG/DL eGFR AMER. (test cod e = 50357) 117 ML/MIN/1.73 eGFR NON- AMER. (test code = 62883) 101 ML/MIN/1.73 CALC BUN/CREAT (test code = [...] (test code = 2219) 80 U/L LIPID [id number] 00:00:00* Test Item Value Reference Range Interpretation Comme nts CHOLESTEROL (test code = 2210) 167 MG/DL TRIGLYCERIDES (test code = 2232) 158 MG/DL HDL CHOLESTEROL (test code = 2220) 56 MG/DL CALC LDL CHOL (test code = 2237) 79 MG/DL RISK RATIO LDL/HDL (test cod e = 2238) 1.42 RATIO COMPREHENSIVE METABOLIC [id number] 00:00:00* Test Item Value Reference Range Interpretation Comme nts GLUCOSE (test code = 2217) 89 MG/DL BUN (test code = 2208) 8 MG/DL CREATININE (test code = 2214) 0.58 MG/DL eGFR AMER. (test cod e = 36069) 117 ML/MIN/1.73 eGFR NON- AMER. (test code = 97092) 101 ML/MIN/1.73 CALC BUN/CREAT (test code = [...] code = 2219) 80 U/L Jonatan Barber [id number] 00:00:00* Test Item Value Reference Range Interpretation Comme nts TSH, THIRD GENERATION (test code = 2821) 0.718 UIU/ML LIPID [id number] 00:00:00* Test Item Value Reference Range Interpretation Comme nts CHOLESTEROL (test code = 2210) 167 MG/DL TRIGLYCERIDES (test code = 2232) 158 MG/DL HDL CHOLESTEROL (test code = 2220) 56 MG/DL CALC LDL CHOL (test code = 2237) 79 MG/DL RISK RATIO LDL/HDL (test cod e = 2238) 1.42 RATIO LIPID [id number] 00:00:00* Test Item Value Reference Range Interpretation Comme nts CHOLESTEROL (test code = 2210) 167 MG/DL TRIGLYCERIDES (test code = 2232) 158 MG/DL HDL CHOLESTEROL (test code = 2220) 56 MG/DL CALC LDL CHOL (test code = 2237) 79 MG/DL RISK RATIO LDL/HDL (test cod e = 2238) 1.42 RATIO Jonatan Barber [id number] 00:00:00* Test Item Value Reference Range Interpretation Comme nts TSH, THIRD GENERATION (test code = 2821) 0.718 UIU/ML Jonatan EasonCOMPREHENSIVE METABOLIC [id number] 00:00:00* Test Item Value Reference Range Interpretation Comme nts GLUCOSE (test code = 2217) 89 MG/DL BUN (test code = 2208) 8 MG/DL CREATININE (test code = 2214) 0.58 MG/DL eGFR AMER. (test cod e = 58435) 117 ML/MIN/1.73 eGFR NON- AMER. (test code = 90274) 101 ML/MIN/1.73 CALC BUN/CREAT (test code = [...] code = 2219) 80 U/L COMPREHENSIVE METABOLIC [id number] 00:00:00* Test Item Value Reference Range Interpretation Comme nts GLUCOSE (test code = 2217) 89 MG/DL BUN (test code = 2208) 8 MG/DL CREATININE (test code = 2214) 0.58 MG/DL eGFR AMER. (test cod e = 30083) 117 ML/MIN/1.73 eGFR NON- AMER. (test code = 31868) 101 ML/MIN/1.73 CALC BUN/CREAT (test code = [...] (test code = 2219) 80 U/L Jonatan EasonCOMPREHENSIVE METABOLIC [id number] 00:00:00* Test Item Value Reference Range Interpretation Comme nts GLUCOSE (test code = 2217) 89 MG/DL BUN (test code = 2208) 8 MG/DL CREATININE (test code = 2214) 0.58 MG/DL eGFR AMER. (test cod e = 24284) 117 ML/MIN/1.73 eGFR NON- AMER. (test code = 70271) 101 ML/MIN/1.73 CALC BUN/CREAT (test code = [...] = 2219) 80 U/L Jonatan Barber AustinLIPID [id number] 00:00:00* Test Item Value Reference Range Interpretation Comme nts CHOLESTEROL (test code = 2210) 167 MG/DL TRIGLYCERIDES (test code = 2232) 158 MG/DL HDL CHOLESTEROL (test code = 2220) 56 MG/DL CALC LDL CHOL (test code = 2237) 79 MG/DL RISK RATIO LDL/HDL (test cod e = 2238) 1.42 RATIO [id number] 00:00:00* Test Item Value Reference Range Interpretation Comme nts TSH, THIRD GENERATION (test code = 2821) 0.718 UIU/ML LIPID [id number] 00:00:00* Test Item Value Reference Range Interpretation Comme nts CHOLESTEROL (test code = 2210) 167 MG/DL TRIGLYCERIDES (test code = 2232) 158 MG/DL HDL CHOLESTEROL (test code = 2220) 56 MG/DL CALC LDL CHOL (test code = 2237) 79 MG/DL RISK RATIO LDL/HDL (test cod e = 2238) 1.42 RATIO Jonatan [id number] 00:00:00* Test Item Value Reference Range Interpretation Comme nts TSH, THIRD GENERATION (test code = 2821) 0.718 UIU/ML Jonatan Barber AustinLIPID [id number] 00:00:00* Test Item Value Reference Range Interpretation Comme nts CHOLESTEROL (test code = 2210) 167 MG/DL TRIGLYCERIDES (test code = 2232) 158 MG/DL HDL CHOLESTEROL (test code = 2220) 56 MG/DL CALC LDL CHOL (test code = 2237) 79 MG/DL RISK RATIO LDL/HDL (test cod e = 2238) 1.42 RATIO Jonatan EasonCOMPREHENSIVE METABOLIC [id number] 00:00:00* Test Item Value Reference Range Interpretation Comme nts GLUCOSE (test code = 2217) 89 MG/DL BUN (test code = 2208) 8 MG/DL CREATININE (test code = 2214) 0.58 MG/DL eGFR AMER. (test cod e = 05934) 117 ML/MIN/1.73 eGFR NON- AMER. (test code = 53091) 101 ML/MIN/1.73 CALC BUN/CREAT (test code = [...] (test code = 2219) 80 U/L Jonatan [id number] 00:00:00* Test Item Value Reference Range Interpretation Comme nts TSH, THIRD GENERATION (test code = 2821) 0.718 UIU/ML Jonatan EasonCOMPREHENSIVE METABOLIC [id number] 00:00:00* Test Item Value Reference Range Interpretation Comme nts GLUCOSE (test code = 2217) 89 MG/DL BUN (test code = 2208) 8 MG/DL CREATININE (test code = 2214) 0.58 MG/DL eGFR AMER. (test cod e = 34309) 117 ML/MIN/1.73 eGFR NON- AMER. (test code = 29687) 101 ML/MIN/1.73 CALC BUN/CREAT (test code = [...] = 2219) 80 U/L Jonatan Barber AustinLIPID [id number] 00:00:00* Test Item Value Reference Range Interpretation Comme nts CHOLESTEROL (test code = 2210) 167 MG/DL TRIGLYCERIDES (test code = 2232) 158 MG/DL HDL CHOLESTEROL (test code = 2220) 56 MG/DL CALC LDL CHOL (test code = 2237) 79 MG/DL RISK RATIO LDL/HDL (test cod e = 2238) 1.42 RATIO Jonatan [id number] 00:00:00* Test Item Value Reference Range Interpretation Comme nts TSH, THIRD GENERATION (test code = 2821) 0.718 UIU/ML Jonatan EasonLIPID [id number] 00:00:00* Test Item Value Reference Range Interpretation Comme nts CHOLESTEROL (test code = 2210) 167 MG/DL TRIGLYCERIDES (test code = 2232) 158 MG/DL HDL CHOLESTEROL (test code = 2220) 56 MG/DL CALC LDL CHOL (test code = 2237) 79 MG/DL RISK RATIO LDL/HDL (test cod e = 2238) 1.42 RATIO Jonatan [id number] 00:00:00* Test Item Value Reference Range Interpretation Comme nts TSH, THIRD GENERATION (test code = 2821) 0.718 UIU/ML Jonatan EasonCOMPREHENSIVE METABOLIC [id number] 00:00:00* Test Item Value Reference Range Interpretation Comme nts GLUCOSE (test code = 2217) 89 MG/DL BUN (test code = 2208) 8 MG/DL CREATININE (test code = 2214) 0.58 MG/DL eGFR AMER. (test cod e = 72035) 117 ML/MIN/1.73 eGFR NON- AMER. (test code = 66408) 101 ML/MIN/1.73 CALC BUN/CREAT (test code = [...] (test code = 2219) 80 U/L Jonatan EasonLIPID [id number] 00:00:00* Test Item Value Reference Range Interpretation Comme nts CHOLESTEROL (test code = 2210) 167 MG/DL TRIGLYCERIDES (test code = 2232) 158 MG/DL HDL CHOLESTEROL (test code = 2220) 56 MG/DL CALC LDL CHOL (test code = 2237) 79 MG/DL RISK RATIO LDL/HDL (test cod e = 2238) 1.42 RATIO Jonatan [id number] 00:00:00* Test Item Value Reference Range Interpretation Comme nts TSH, THIRD GENERATION (test code = 2821) 0.718 UIU/ML Jonatan EasonCOMPREHENSIVE METABOLIC [id number] 00:00:00* Test Item Value Reference Range Interpretation Comme nts GLUCOSE (test code = 2217) 89 MG/DL BUN (test code = 2208) 8 MG/DL CREATININE (test code = 2214) 0.58 MG/DL eGFR AMER. (test cod e = 65312) 117 ML/MIN/1.73 eGFR NON- AMER. (test code = 98810) 101 ML/MIN/1.73 CALC BUN/CREAT (test code = [...] = 2219) 80 U/L Jonatan Barber AustinLIPID [id number] 00:00:00* Test Item Value Reference Range Interpretation Comme nts CHOLESTEROL (test code = 2210) 167 MG/DL TRIGLYCERIDES (test code = 2232) 158 MG/DL HDL CHOLESTEROL (test code = 2220) 56 MG/DL CALC LDL CHOL (test code = 2237) 79 MG/DL RISK RATIO LDL/HDL (test cod e = 2238) 1.42 RATIO Jonatan [id number] 00:00:00* Test Item Value Reference Range Interpretation Comme nts TSH, THIRD GENERATION (test code = 2821) 0.718 UIU/ML [id number] 00:00:00* Test Item Value Reference Range Interpretation Comme nts TSH, THIRD GENERATION (test code = 2821) 0.718 UIU/ML Jonatan EasonCOMPREHENSIVE METABOLIC [id number] 00:00:00* Test Item Value Reference Range Interpretation Comme nts GLUCOSE (test code = 2217) 89 MG/DL BUN (test code = 2208) 8 MG/DL CREATININE (test code = 2214) 0.58 MG/DL eGFR AMER. (test cod e = 68471) 117 ML/MIN/1.73 eGFR NON- AMER. (test code = 41045) 101 ML/MIN/1.73 CALC BUN/CREAT (test code = [...] code = 2219) 80 U/L COMPREHENSIVE METABOLIC [id number] 00:00:00* Test Item Value Reference Range Interpretation Comme nts GLUCOSE (test code = 2217) 89 MG/DL BUN (test code = 2208) 8 MG/DL CREATININE (test code = 2214) 0.58 MG/DL eGFR AMER. (test cod e = 48138) 117 ML/MIN/1.73 eGFR NON- AMER. (test code = 99419) 101 ML/MIN/1.73 CALC BUN/CREAT (test code = [...] (test code = 2219) 80 U/L Jonatan EasonLIPID [id number] 00:00:00* Test Item Value Reference Range Interpretation Comme nts CHOLESTEROL (test code = 2210) 167 MG/DL TRIGLYCERIDES (test code = 2232) 158 MG/DL HDL CHOLESTEROL (test code = 2220) 56 MG/DL CALC LDL CHOL (test code = 2237) 79 MG/DL RISK RATIO LDL/HDL (test cod e = 2238) 1.42 RATIO LIPID [id number] 00:00:00* Test Item Value Reference Range Interpretation Comme nts CHOLESTEROL (test code = 2210) 167 MG/DL TRIGLYCERIDES (test code = 2232) 158 MG/DL HDL CHOLESTEROL (test code = 2220) 56 MG/DL CALC LDL CHOL (test code = 2237) 79 MG/DL RISK RATIO LDL/HDL (test cod e = 2238) 1.42 RATIO Jonatan [id number] 00:00:00* Test Item Value Reference Range Interpretation Comme nts TSH, THIRD GENERATION (test code = 2821) 0.718 UIU/ML [id number] 00:00:00* Test Item Value Reference Range Interpretation Comme nts TSH, THIRD GENERATION (test code = 2821) 0.718 UIU/ML Jonatan EasonCOMPREHENSIVE METABOLIC [id number] 00:00:00* Test Item Value Reference Range Interpretation Comme nts GLUCOSE (test code = 2217) 89 MG/DL BUN (test code = 2208) 8 MG/DL CREATININE (test code = 2214) 0.58 MG/DL eGFR AMER. (test cod e = 16264) 117 ML/MIN/1.73 eGFR NON- AMER. (test code = 50751) 101 ML/MIN/1.73 CALC BUN/CREAT (test code = [...] code = 2219) 80 U/L COMPREHENSIVE METABOLIC [id number] 00:00:00* Test Item Value Reference Range Interpretation Comme nts GLUCOSE (test code = 2217) 89 MG/DL BUN (test code = 2208) 8 MG/DL CREATININE (test code = 2214) 0.58 MG/DL eGFR AMER. (test cod e = 98968) 117 ML/MIN/1.73 eGFR NON- AMER. (test code = 67452) 101 ML/MIN/1.73 CALC BUN/CREAT (test code = [...] code = 2219) 80 U/L Jonatan Barber LandyLIPID [id number] 00:00:00* Test Item Value Reference Range Interpretation Comme nts CHOLESTEROL (test code = 2210) 167 MG/DL TRIGLYCERIDES (test code = 2232) 158 MG/DL HDL CHOLESTEROL (test code = 2220) 56 MG/DL CALC LDL CHOL (test code = 2237) 79 MG/DL RISK RATIO LDL/HDL (test cod e = 2238) 1.42 RATIO LIPID [id number] 00:00:00* Test Item Value Reference Range Interpretation Comme nts CHOLESTEROL (test code = 2210) 167 MG/DL TRIGLYCERIDES (test code = 2232) 158 MG/DL HDL CHOLESTEROL (test code = 2220) 56 MG/DL CALC LDL CHOL (test code = 2237) 79 MG/DL RISK RATIO LDL/HDL (test cod e = 2238) 1.42 RATIO Jonatan Barber LandyCOMPREHENSIVE METABOLIC [id number] 00:00:00* Test Item Value Reference Range Interpretation Comme nts GLUCOSE (test code = 2217) 105 MG/DL BUN (test code = 2208) 15 MG/DL CREATININE (test code = 2214) 0.99 MG/DL eGFR AMER. (test cod e = 72817) 73 ML/MIN/1.73 eGFR NON- AMER. (test code = 04969) 63 ML/MIN/1.73 CALC BUN/CREAT (test code = [...] ALT (test code = 2219) 46 U/L [id number] 00:00:00* Test Item Value Reference Range Interpretation Comme nts TSH, THIRD GENERATION (test code = 2821) 1.330 UIU/ML COMPREHENSIVE METABOLIC [id number] 00:00:00* Test Item Value Reference Range Interpretation Comme nts GLUCOSE (test code = 2217) 105 MG/DL BUN (test code = 2208) 15 MG/DL CREATININE (test code = 2214) 0.99 MG/DL eGFR AMER. (test cod e = 86543) 73 ML/MIN/1.73 eGFR NON- AMER. (test code = 89944) 63 ML/MIN/1.73 CALC BUN/CREAT (test code = [...] (test code = 2219) 46 U/L Jonatan F AustinCOMPREHENSIVE METABOLIC [id number] 00:00:00* Test Item Value Reference Range Interpretation Comme nts GLUCOSE (test code = 2217) 105 MG/DL BUN (test code = 2208) 15 MG/DL CREATININE (test code = 2214) 0.99 MG/DL eGFR AMER. (test cod e = 30204) 73 ML/MIN/1.73 eGFR NON- AMER. (test code = 47688) 63 ML/MIN/1.73 CALC BUN/CREAT (test code = [...] ALT (test code = 2219) 46 U/L [id number] 00:00:00* Test Item Value Reference Range Interpretation Comme nts TSH, THIRD GENERATION (test code = 2821) 1.330 UIU/ML Jonatan Barber [id number] 00:00:00* Test Item Value Reference Range Interpretation Comme nts TSH, THIRD GENERATION (test code = 2821) 1.330 UIU/ML COMPREHENSIVE METABOLIC [id number] 00:00:00* Test Item Value Reference Range Interpretation Comme nts GLUCOSE (test code = 2217) 105 MG/DL BUN (test code = 2208) 15 MG/DL CREATININE (test code = 2214) 0.99 MG/DL eGFR AMER. (test cod e = 01947) 73 ML/MIN/1.73 eGFR NON- AMER. (test code = 01398) 63 ML/MIN/1.73 CALC BUN/CREAT (test code = [...] (test code = 2219) 46 U/L Jonatan [id number] 00:00:00* Test Item Value Reference Range Interpretation Comme nts TSH, THIRD GENERATION (test code = 2821) 1.330 UIU/ML Jonatan EasonCOMPREHENSIVE METABOLIC [id number] 00:00:00* Test Item Value Reference Range Interpretation Comme nts GLUCOSE (test code = 2217) 105 MG/DL BUN (test code = 2208) 15 MG/DL CREATININE (test code = 2214) 0.99 MG/DL eGFR AMER. (test cod e = 31751) 73 ML/MIN/1.73 eGFR NON- AMER. (test code = 73841) 63 ML/MIN/1.73 CALC BUN/CREAT (test code = [...] ALT (test code = 2219) 46 U/L [id number] 00:00:00* Test Item Value Reference Range Interpretation Comme nts TSH, THIRD GENERATION (test code = 2821) 1.330 UIU/ML COMPREHENSIVE METABOLIC [id number] 00:00:00* Test Item Value Reference Range Interpretation Comme nts GLUCOSE (test code = 2217) 105 MG/DL BUN (test code = 2208) 15 MG/DL CREATININE (test code = 2214) 0.99 MG/DL eGFR AMER. (test cod e = 78359) 73 ML/MIN/1.73 eGFR NON- AMER. (test code = 06177) 63 ML/MIN/1.73 CALC BUN/CREAT (test code = [...] (test code = 2219) 46 U/L Jonatan F AustinCOMPREHENSIVE METABOLIC [id number] 00:00:00* Test Item Value Reference Range Interpretation Comme nts GLUCOSE (test code = 2217) 105 MG/DL BUN (test code = 2208) 15 MG/DL CREATININE (test code = 2214) 0.99 MG/DL eGFR AMER. (test cod e = 40249) 73 ML/MIN/1.73 eGFR NON- AMER. (test code = 15473) 63 ML/MIN/1.73 CALC BUN/CREAT (test code = [...] ALT (test code = 2219) 46 U/L [id number] 00:00:00* Test Item Value Reference Range Interpretation Comme nts TSH, THIRD GENERATION (test code = 2821) 1.330 UIU/ML Jonatan F AustinCOMPREHENSIVE METABOLIC [id number] 00:00:00* Test Item Value Reference Range Interpretation Comme nts GLUCOSE (test code = 2217) 105 MG/DL BUN (test code = 2208) 15 MG/DL CREATININE (test code = 2214) 0.99 MG/DL eGFR AMER. (test cod e = 12768) 73 ML/MIN/1.73 eGFR NON- AMER. (test code = 02870) 63 ML/MIN/1.73 CALC BUN/CREAT (test code = [...] ALT (test code = 2219) 46 U/L [id number] 00:00:00* Test Item Value Reference Range Interpretation Comme nts TSH, THIRD GENERATION (test code = 2821) 1.330 UIU/ML COMPREHENSIVE METABOLIC [id number] 00:00:00* Test Item Value Reference Range Interpretation Comme nts GLUCOSE (test code = 2217) 105 MG/DL BUN (test code = 2208) 15 MG/DL CREATININE (test code = 2214) 0.99 MG/DL eGFR AMER. (test cod e = 24357) 73 ML/MIN/1.73 eGFR NON- AMER. (test code = 93821) 63 ML/MIN/1.73 CALC BUN/CREAT (test code = [...] (test code = 2219) 46 U/L Jonatan F AustinCOMPREHENSIVE METABOLIC [id number] 00:00:00* Test Item Value Reference Range Interpretation Comme nts GLUCOSE (test code = 2217) 105 MG/DL BUN (test code = 2208) 15 MG/DL CREATININE (test code = 2214) 0.99 MG/DL eGFR AMER. (test cod e = 88729) 73 ML/MIN/1.73 eGFR NON- AMER. (test code = 42588) 63 ML/MIN/1.73 CALC BUN/CREAT (test code = [...] (test code = 2219) 46 U/L Jonatan [id number] 00:00:00* Test Item Value Reference Range Interpretation Comme nts TSH, THIRD GENERATION (test code = 2821) 1.330 UIU/ML [id number] 00:00:00* Test Item Value Reference Range Interpretation Comme nts TSH, THIRD GENERATION (test code = 2821) 1.330 UIU/ML Jonatan EasonCOMPREHENSIVE METABOLIC [id number] 00:00:00* Test Item Value Reference Range Interpretation Comme nts GLUCOSE (test code = 2217) 105 MG/DL BUN (test code = 2208) 15 MG/DL CREATININE (test code = 2214) 0.99 MG/DL eGFR AMER. (test cod e = 03300) 73 ML/MIN/1.73 eGFR NON- AMER. (test code = 92284) 63 ML/MIN/1.73 CALC BUN/CREAT (test code = [...] (test code = 2219) 46 U/L Jonatan [id number] 00:00:00* Test Item Value Reference Range Interpretation Comme nts TSH, THIRD GENERATION (test code = 2821) 1.330 UIU/ML Jonatan Barber NyeCOMPREHENSIVE METABOLIC [id number] 00:00:00* Test Item Value Reference Range Interpretation Comme nts GLUCOSE (test code = 2217) 105 MG/DL BUN (test code = 2208) 15 MG/DL CREATININE (test code = 2214) 0.99 MG/DL eGFR AMER. (test cod e = 97231) 73 ML/MIN/1.73 eGFR NON- AMER. (test code = 06406) 63 ML/MIN/1.73 CALC BUN/CREAT (test code = [...] code = 2219) 46 U/L Jonatan Barber [id number] 00:00:00* Test Item Value Reference Range Interpretation Comme nts TSH, THIRD GENERATION (test code = 2821) 1.330 UIU/ML Jonatan Barber [id number] 00:00:00* Test Item Value Reference Range Interpretation Comme nts TSH, THIRD GENERATION (test code = 2821) 1.330 UIU/ML Jonatan Barber AustinCOMPREHENSIVE METABOLIC [id number] 00:00:00* Test Item Value Reference Range Interpretation Comme nts GLUCOSE (test code = 2217) 105 MG/DL BUN (test code = 2208) 15 MG/DL CREATININE (test code = 2214) 0.99 MG/DL eGFR AMER. (test cod e = 08567) 73 ML/MIN/1.73 eGFR NON- AMER. (test code = 84530) 63 ML/MIN/1.73 CALC BUN/CREAT (test code = [...] code = 2219) 46 U/L Jonatan Barber [id number] 00:00:00* Test Item Value Reference Range Interpretation Comme nts TSH, THIRD GENERATION (test code = 2821) 1.330 UIU/ML Jonatan EasonGOLD[facility]PITALPREHENS[facility]ABOLIC [id number] 00:00:00* Test Item Value Reference Range Interpretation Comme nts GLUCOSE (test code = 2217) 105 MG/DL BUN (test code = 2208) 15 MG/DL CREATININE (test code = 2214) 0.99 MG/DL eGFR AMER. (test cod e = 71693) 73 ML/MIN/1.73 eGFR NON- AMER. (test code = 03295) 63 ML/MIN/1.73 CALC BUN/CREAT (test code = [...] (test code = 2219) 46 U/L Jonatan [id number] 00:00:00* Test Item Value Reference Range Interpretation Comme nts TSH, THIRD GENERATION (test code = 2821) 1.330 UIU/ML Jonatan EasonCOMPREHENSIVE METABOLIC [id number] 00:00:00* Test Item Value Reference Range Interpretation Comme nts GLUCOSE (test code = 2217) 105 MG/DL BUN (test code = 2208) 15 MG/DL CREATININE (test code = 2214) 0.99 MG/DL eGFR AMER. (test cod e = 23270) 73 ML/MIN/1.73 eGFR NON- AMER. (test code = 83579) 63 ML/MIN/1.73 CALC BUN/CREAT (test code = [...] code = 2219) 46 U/L COMPREHENSIVE METABOLIC [id number] 00:00:00* Test Item Value Reference Range Interpretation Comme nts GLUCOSE (test code = 2217) 105 MG/DL BUN (test code = 2208) 15 MG/DL CREATININE (test code = 2214) 0.99 MG/DL eGFR AMER. (test cod e = 82556) 73 ML/MIN/1.73 eGFR NON- AMER. (test code = 27756) 63 ML/MIN/1.73 CALC BUN/CREAT (test code = [...] (test code = 2219) 46 U/L Jonatan [id number] 00:00:00* Test Item Value Reference Range Interpretation Comme nts TSH, THIRD GENERATION (test code = 2821) 1.330 UIU/ML [id number] 00:00:00* Test Item Value Reference Range Interpretation Comme nts TSH, THIRD GENERATION (test code = 2821) 1.330 UIU/ML Jonatan EasonCOMPREHENSIVE METABOLIC [id number] 00:00:00* Test Item Value Reference Range Interpretation Comme nts GLUCOSE (test code = 2217) 105 MG/DL BUN (test code = 2208) 15 MG/DL CREATININE (test code = 2214) 0.99 MG/DL eGFR AMER. (test cod e = 61351) 73 ML/MIN/1.73 eGFR NON- AMER. (test code = 07575) 63 ML/MIN/1.73 CALC BUN/CREAT (test code = [...] code = 2219) 46 U/L COMPREHENSIVE METABOLIC [id number] 00:00:00* Test Item Value Reference Range Interpretation Comme nts GLUCOSE (test code = 2217) 105 MG/DL BUN (test code = 2208) 15 MG/DL CREATININE (test code = 2214) 0.99 MG/DL eGFR AMER. (test cod e = 97744) 73 ML/MIN/1.73 eGFR NON- AMER. (test code = 62233) 63 ML/MIN/1.73 CALC BUN/CREAT (test code = [...] code = 2219) 46 U/L Jonatan Barber [id number] 00:00:00* Test Item Value Reference Range Interpretation Comme nts TSH, THIRD GENERATION (test code = 2821) 1.330 UIU/ML [id number] 00:00:00* Test Item Value Reference Range Interpretation Comme nts TSH, THIRD GENERATION (test code = 2821) 1.330 UIU/ML Jonatan GrimmPATITIS PANEL, ACUTE W/REFLEX TO [id number] 00:00:00* Test Item Value Reference Range Interpretation Comme nts HEPATITIS A IGM (test code = 52577-6) NON-REACTIVE HEPATITIS B SURFACE ANTIGEN (test code = 5196-1) NON-REACTIVE CONFIRMATION (test code = 7905-3) DNR HEPATITIS B CORE ANTIBODY (I GM) (test code = 74412-3) NON-REACTIVE HEPATITIS C ANTIBODY (test c ode = 54728-0) NON-REACTIVE SIGNAL TO CUT-OFF (test code = 95786-4) 0.02 Jonatan Barber [id number] 00:00:00* Test Item Value Reference Range Interpretation Comme nts TSH (test code = 3016-3) 3.41 mIU/L [id number] 00:00:00* Test Item Value Reference Range Interpretation Comme nts TSH (test code = 3016-3) 3.41 mIU/L Jonatan GrimmPATITIS PANEL, ACUTE W/REFLEX TO [id number] 00:00:00* Test Item Value Reference Range Interpretation Comme nts HEPATITIS A IGM (test code = 56065-8) NON-REACTIVE HEPATITIS B SURFACE ANTIGEN (test code = 5196-1) NON-REACTIVE CONFIRMATION (test code = 7905-3) DNR HEPATITIS B CORE ANTIBODY (I GM) (test code = 74801-3) NON-REACTIVE HEPATITIS C ANTIBODY (test c ode = 65682-9) NON-REACTIVE SIGNAL TO CUT-OFF (test code = 84001-6) 0.02 HEPATITIS PANEL, ACUTE W/REFLEX TO [id number] 00:00:00* Test Item Value Reference Range Interpretation Comme nts HEPATITIS A IGM (test code = 90675-6) NON-REACTIVE HEPATITIS B SURFACE ANTIGEN (test code = 5196-1) NON-REACTIVE CONFIRMATION (test code = 7905-3) DNR HEPATITIS B CORE ANTIBODY (I GM) (test code = 70500-8) NON-REACTIVE HEPATITIS C ANTIBODY (test c ode = 32718-6) NON-REACTIVE SIGNAL TO CUT-OFF (test code = 95808-5) 0.02 Jonatan Barber [id number] 00:00:00* Test Item Value Reference Range Interpretation Comme nts TSH (test code = 3016-3) 3.41 mIU/L HEPATITIS PANEL, ACUTE W/REFLEX TO [id number] 00:00:00* Test Item Value Reference Range Interpretation Comme nts HEPATITIS A IGM (test code = 00101-2) NON-REACTIVE HEPATITIS B SURFACE ANTIGEN (test code = 5196-1) NON-REACTIVE CONFIRMATION (test code = 7905-3) DNR HEPATITIS B CORE ANTIBODY (I GM) (test code = 68291-1) NON-REACTIVE HEPATITIS C ANTIBODY (test c ode = 59808-4) NON-REACTIVE SIGNAL TO CUT-OFF (test code = 82081-6) 0.02 [id number] 00:00:00* Test Item Value Reference Range Interpretation Comme nts TSH (test code = 3016-3) 3.41 mIU/L Jonatan Barber [id number] 00:00:00* Test Item Value Reference Range Interpretation Comme nts TSH (test code = 3016-3) 3.41 mIU/L HEPATITIS PANEL, ACUTE W/REFLEX TO [id number] 00:00:00* Test Item Value Reference Range Interpretation Comme nts HEPATITIS A IGM (test code = 06986-1) NON-REACTIVE HEPATITIS B SURFACE ANTIGEN (test code = 5196-1) NON-REACTIVE CONFIRMATION (test code = 7905-3) DNR HEPATITIS B CORE ANTIBODY (I GM) (test code = 41543-4) NON-REACTIVE HEPATITIS C ANTIBODY (test c ode = 03881-3) NON-REACTIVE SIGNAL TO CUT-OFF (test code = 96659-0) 0.02 Jonatan Barber [id number] 00:00:00* Test Item Value Reference Range Interpretation Comme nts TSH (test code = 3016-3) 3.41 mIU/L HEPATITIS PANEL, ACUTE W/REFLEX TO [id number] 00:00:00* Test Item Value Reference Range Interpretation Comme nts HEPATITIS A IGM (test code = 07983-3) NON-REACTIVE HEPATITIS B SURFACE ANTIGEN (test code = 5196-1) NON-REACTIVE CONFIRMATION (test code = 7905-3) DNR HEPATITIS B CORE ANTIBODY (I GM) (test code = 94625-2) NON-REACTIVE HEPATITIS C ANTIBODY (test c ode = 92830-4) NON-REACTIVE SIGNAL TO CUT-OFF (test code = 99095-8) 0.02 [id number] 00:00:00* Test Item Value Reference Range Interpretation Comme nts TSH (test code = 3016-3) 3.41 mIU/L Jonatan Barber AustinHEPATITIS PANEL, ACUTE W/REFLEX TO [id number] 00:00:00* Test Item Value Reference Range Interpretation Comme nts HEPATITIS A IGM (test code = 16671-1) NON-REACTIVE HEPATITIS B SURFACE ANTIGEN (test code = 5196-1) NON-REACTIVE CONFIRMATION (test code = 7905-3) DNR HEPATITIS B CORE ANTIBODY (I GM) (test code = 73098-7) NON-REACTIVE HEPATITIS C ANTIBODY (test c ode = 29090-3) NON-REACTIVE SIGNAL TO CUT-OFF (test code = 47124-3) 0.02 [id number] 00:00:00* Test Item Value Reference Range Interpretation Comme nts TSH (test code = 3016-3) 3.41 mIU/L HEPATITIS PANEL, ACUTE W/REFLEX TO [id number] 00:00:00* Test Item Value Reference Range Interpretation Comme nts HEPATITIS A IGM (test code = 28870-2) NON-REACTIVE HEPATITIS B SURFACE ANTIGEN (test code = 5196-1) NON-REACTIVE CONFIRMATION (test code = 7905-3) DNR HEPATITIS B CORE ANTIBODY (I GM) (test code = 79052-3) NON-REACTIVE HEPATITIS C ANTIBODY (test c ode = 06309-9) NON-REACTIVE SIGNAL TO CUT-OFF (test code = 18594-4) 0.02 Jonatan F AustinHEPATITIS PANEL, ACUTE W/REFLEX TO [id number] 00:00:00* Test Item Value Reference Range Interpretation Comme nts HEPATITIS A IGM (test code = 33097-2) NON-REACTIVE HEPATITIS B SURFACE ANTIGEN (test code = 5196-1) NON-REACTIVE CONFIRMATION (test code = 7905-3) DNR HEPATITIS B CORE ANTIBODY (I GM) (test code = 11228-4) NON-REACTIVE HEPATITIS C ANTIBODY (test c ode = 02964-1) NON-REACTIVE SIGNAL TO CUT-OFF (test code = 50075-6) 0.02 [id number] 00:00:00* Test Item Value Reference Range Interpretation Comme nts TSH (test code = 3016-3) 3.41 mIU/L [facility]REFLEX TO [id number] 00:00:00* Test Item Value Reference Range Interpretation Comme nts HEPATITIS A IGM (test code = 36126-9) NON-REACTIVE HEPATITIS B SURFACE ANTIGEN (test code = 5196-1) NON-REACTIVE CONFIRMATION (test code = 7905-3) DNR HEPATITIS B CORE ANTIBODY (I GM) (test code = 85999-4) NON-REACTIVE HEPATITIS C ANTIBODY (test c ode = 68815-9) NON-REACTIVE SIGNAL TO CUT-OFF (test code = 04991-1) 0.02 [facility]IlypdwJYC7348-98-71 00:00:00* Test Item Value Reference Range Interpretation Comme nts TSH (test code = 3016-3) 3.41 mIU/L Jonatan Barber [facility]/REFLEX TO [id number] 00:00:00* Test Item Value Reference Range Interpretation Comme nts HEPATITIS A IGM (test code = 33403-9) NON-REACTIVE HEPATITIS B SURFACE ANTIGEN (test code = 5196-1) NON-REACTIVE CONFIRMATION (test code = 7905-3) DNR HEPATITIS B CORE ANTIBODY (I GM) (test code = 62115-0) NON-REACTIVE HEPATITIS C ANTIBODY (test c ode = 91116-1) NON-REACTIVE SIGNAL TO CUT-OFF (test code = 00878-6) 0.02 Jonatan [place] [id number] 00:00:00* Test Item Value Reference Range Interpretation Comme nts TSH (test code = 3016-3) 3.41 mIU/L [facility] CenterRjfwjbQTH3092-64-04 00:00:00* Test Item Value Reference Range Interpretation Comme nts TSH (test code = 3016-3) 3.41 mIU/L Jonatan EasonPATITIS PANEL, ACUTE W/REFLEX TO [id number] 00:00:00* Test Item Value Reference Range Interpretation Comme nts HEPATITIS A IGM (test code = 83140-4) NON-REACTIVE HEPATITIS B SURFACE ANTIGEN (test code = 5196-1) NON-REACTIVE CONFIRMATION (test code = 7905-3) DNR HEPATITIS B CORE ANTIBODY (I GM) (test code = 19507-1) NON-REACTIVE HEPATITIS C ANTIBODY (test c ode = 29279-0) NON-REACTIVE SIGNAL TO CUT-OFF (test code = 69768-8) 0.02 Jonatan EasonPATITIS PANEL, ACUTE W/REFLEX TO [id number] 00:00:00* Test Item Value Reference Range Interpretation Comme nts HEPATITIS A IGM (test code = 48228-4) NON-REACTIVE HEPATITIS B SURFACE ANTIGEN (test code = 5196-1) NON-REACTIVE CONFIRMATION (test code = 7905-3) DNR HEPATITIS B CORE ANTIBODY (I GM) (test code = 36334-9) NON-REACTIVE HEPATITIS C ANTIBODY (test c ode = 15416-6) NON-REACTIVE SIGNAL TO CUT-OFF (test code = 57364-5) 0.02 Jonatan Barber [id number] 00:00:00* Test Item Value Reference Range Interpretation Comme nts TSH (test code = 3016-3) 3.41 mIU/L Jonatan EasonPATITIS PANEL, ACUTE W/REFLEX TO [id number] 00:00:00* Test Item Value Reference Range Interpretation Comme nts HEPATITIS A IGM (test code = 00644-3) NON-REACTIVE HEPATITIS B SURFACE ANTIGEN (test code = 5196-1) NON-REACTIVE CONFIRMATION (test code = 7905-3) DNR HEPATITIS B CORE ANTIBODY (I GM) (test code = 25499-9) NON-REACTIVE HEPATITIS C ANTIBODY (test c ode = 98392-5) NON-REACTIVE SIGNAL TO CUT-OFF (test code = 90305-8) 0.02 Jonatan Barber [id number] 00:00:00* Test Item Value Reference Range Interpretation Comme nts TSH (test code = 3016-3) 3.41 mIU/L Jonatan EasonPATITIS PANEL, ACUTE W/REFLEX TO [id number] 00:00:00* Test Item Value Reference Range Interpretation Comme nts HEPATITIS A IGM (test code = 91893-1) NON-REACTIVE HEPATITIS B SURFACE ANTIGEN (test code = 5196-1) NON-REACTIVE CONFIRMATION (test code = 7905-3) DNR HEPATITIS B CORE ANTIBODY (I GM) (test code = 20896-4) NON-REACTIVE HEPATITIS C ANTIBODY (test c ode = 57412-5) NON-REACTIVE SIGNAL TO CUT-OFF (test code = 58718-4) 0.02 Jonatan Barber [id number] 00:00:00* Test Item Value Reference Range Interpretation Comme nts TSH (test code = 3016-3) 3.41 mIU/L [id number] 00:00:00* Test Item Value Reference Range Interpretation Comme nts TSH (test code = 3016-3) 3.41 mIU/L Jonatan EasonPATITIS PANEL, ACUTE W/REFLEX TO [id number] 00:00:00* Test Item Value Reference Range Interpretation Comme nts HEPATITIS A IGM (test code = 28523-5) NON-REACTIVE HEPATITIS B SURFACE ANTIGEN (test code = 5196-1) NON-REACTIVE CONFIRMATION (test code = 7905-3) DNR HEPATITIS B CORE ANTIBODY (I GM) (test code = 36479-1) NON-REACTIVE HEPATITIS C ANTIBODY (test c ode = 80888-8) NON-REACTIVE SIGNAL TO CUT-OFF (test code = 45561-6) 0.02 HEPATITIS PANEL, ACUTE W/REFLEX TO [id number] 00:00:00* Test Item Value Reference Range Interpretation Comme nts HEPATITIS A IGM (test code = 66262-4) NON-REACTIVE HEPATITIS B SURFACE ANTIGEN (test code = 5196-1) NON-REACTIVE CONFIRMATION (test code = 7905-3) DNR HEPATITIS B CORE ANTIBODY (I GM) (test code = 16504-2) NON-REACTIVE HEPATITIS C ANTIBODY (test c ode = 00447-9) NON-REACTIVE SIGNAL TO CUT-OFF (test code = 79282-5) 0.02 Jonatan Barber [id number] 00:00:00* Test Item Value Reference Range Interpretation Comme nts TSH (test code = 3016-3) 3.41 mIU/L [id number] 00:00:00* Test Item Value Reference Range Interpretation Comme nts TSH (test code = 3016-3) 3.41 mIU/L Jonatan Barber AustinHEPATITIS PANEL, ACUTE W/REFLEX TO [id number] 00:00:00* Test Item Value Reference Range Interpretation Comme nts HEPATITIS A IGM (test code = 48191-6) NON-REACTIVE HEPATITIS B SURFACE ANTIGEN (test code = 5196-1) NON-REACTIVE CONFIRMATION (test code = 7905-3) DNR HEPATITIS B CORE ANTIBODY (I GM) (test code = 82219-3) NON-REACTIVE HEPATITIS C ANTIBODY (test c ode = 19948-9) NON-REACTIVE SIGNAL TO CUT-OFF (test code = 70271-3) 0.02 LIPID [id number] 00:00:00* Test Item Value Reference Range Interpretation Comme nts CHOLESTEROL (test code = 2210) 227 MG/DL TRIGLYCERIDES (test code = 2232) 234 MG/DL HDL CHOLESTEROL (test code = 2220) 59 MG/DL CALC LDL CHOL (test code = 2237) 121 MG/DL RISK RATIO LDL/HDL (test cod e = 2238) 2.05 RATIO LIPID [id number] 00:00:00* Test Item Value Reference Range Interpretation Comme nts CHOLESTEROL (test code = 2210) 227 MG/DL TRIGLYCERIDES (test code = 2232) 234 MG/DL HDL CHOLESTEROL (test code = 2220) 59 MG/DL CALC LDL CHOL (test code = 2237) 121 MG/DL RISK RATIO LDL/HDL (test cod e = 2238) 2.05 RATIO Jonatan EasonCOMPREHENSIVE METABOLIC [id number] 00:00:00* Test Item Value Reference Range Interpretation Comme nts GLUCOSE (test code = 2217) 88 MG/DL BUN (test code = 2208) 18 MG/DL CREATININE (test code = 2214) 0.89 MG/DL eGFR AMER. (test cod e = 86203) 83 ML/MIN/1.73 eGFR NON- AMER. (test code = 61055) 71 ML/MIN/1.73 CALC BUN/CREAT (test code = [...] ALT (test code = 2219) 100 U/L COMPREHENSIVE METABOLIC [id number] 00:00:00* Test Item Value Reference Range Interpretation Comme nts GLUCOSE (test code = 2217) 88 MG/DL BUN (test code = 2208) 18 MG/DL CREATININE (test code = 2214) 0.89 MG/DL eGFR AMER. (test cod e = 41337) 83 ML/MIN/1.73 eGFR NON- AMER. (test code = 16946) 71 ML/MIN/1.73 CALC BUN/CREAT (test code = [...] (test code = 2219) 100 U/L Jonatan Barber AustinTHYROID II PROFILE (T3U, T4, T7, TSH)2017-06-14 00:00:00* Test Item Value Reference Range Interpretation Comme nts T3 UPTAKE (test code = 2817) 28.0 % T4 (THYROXINE) (test code = 2819) 7.9 UG/DL CALCULATED T7 (FTI) (test co de = 2820) 2.21 TSH (test code = 2821) 5.070 UIU/ML LIPID [id number] 00:00:00* Test Item Value Reference Range Interpretation Comme nts CHOLESTEROL (test code = 2210) 227 MG/DL TRIGLYCERIDES (test code = 2232) 234 MG/DL HDL CHOLESTEROL (test code = 2220) 59 MG/DL CALC LDL CHOL (test code = 2237) 121 MG/DL RISK RATIO LDL/HDL (test cod e = 2238) 2.05 RATIO THYROID II PROFILE (T3U, T4, T7, TSH)2017-06-14 00:00:00* Test Item Value Reference Range Interpretation Comme nts T3 UPTAKE (test code = 2817) 28.0 % T4 (THYROXINE) (test code = 2819) 7.9 UG/DL CALCULATED T7 (FTI) (test co de = 2820) 2.21 TSH (test code = 2821) 5.070 UIU/ML Jonatan F AustinCOMPREHENSIVE METABOLIC [id number] 00:00:00* Test Item Value Reference Range Interpretation Comme nts GLUCOSE (test code = 2217) 88 MG/DL BUN (test code = 2208) 18 MG/DL CREATININE (test code = 2214) 0.89 MG/DL eGFR AMER. (test cod e = 61088) 83 ML/MIN/1.73 eGFR NON- AMER. (test code = 14915) 71 ML/MIN/1.73 CALC BUN/CREAT (test code = [...] ALT (test code = 2219) 100 U/L LIPID [id number] 00:00:00* Test Item Value Reference Range Interpretation Comme nts CHOLESTEROL (test code = 2210) 227 MG/DL TRIGLYCERIDES (test code = 2232) 234 MG/DL HDL CHOLESTEROL (test code = 2220) 59 MG/DL CALC LDL CHOL (test code = 2237) 121 MG/DL RISK RATIO LDL/HDL (test cod e = 2238) 2.05 RATIO Jonatan Barber AustinTHYROID II PROFILE (T3U, T4, T7, TSH)2017-06-14 00:00:00* Test Item Value Reference Range Interpretation Comme nts T3 UPTAKE (test code = 2817) 28.0 % T4 (THYROXINE) (test code = 2819) 7.9 UG/DL CALCULATED T7 (FTI) (test co de = 2820) 2.21 TSH (test code = 2821) 5.070 UIU/ML COMPREHENSIVE METABOLIC [id number] 00:00:00* Test Item Value Reference Range Interpretation Comme nts GLUCOSE (test code = 2217) 88 MG/DL BUN (test code = 2208) 18 MG/DL CREATININE (test code = 2214) 0.89 MG/DL eGFR AMER. (test cod e = 85262) 83 ML/MIN/1.73 eGFR NON- AMER. (test code = 20239) 71 ML/MIN/1.73 CALC BUN/CREAT (test code = [...] (test code = 2219) 100 U/L Jonatan Barber AustinLIPID [id number] 00:00:00* Test Item Value Reference Range Interpretation Comme nts CHOLESTEROL (test code = 2210) 227 MG/DL TRIGLYCERIDES (test code = 2232) 234 MG/DL HDL CHOLESTEROL (test code = 2220) 59 MG/DL CALC LDL CHOL (test code = 2237) 121 MG/DL RISK RATIO LDL/HDL (test cod e = 2238) 2.05 RATIO COMPREHENSIVE METABOLIC [id number] 00:00:00* Test Item Value Reference Range Interpretation Comme nts GLUCOSE (test code = 2217) 88 MG/DL BUN (test code = 2208) 18 MG/DL CREATININE (test code = 2214) 0.89 MG/DL eGFR AMER. (test cod e = 69695) 83 ML/MIN/1.73 eGFR NON- AMER. (test code = 17066) 71 ML/MIN/1.73 CALC BUN/CREAT (test code = [...] code = 2821) 5.070 UIU/ML Jonatan EasonLIPID [id number] 00:00:00* Test Item Value Reference Range Interpretation Comme nts CHOLESTEROL (test code = 2210) 227 MG/DL TRIGLYCERIDES (test code = 2232) 234 MG/DL HDL CHOLESTEROL (test code = 2220) 59 MG/DL CALC LDL CHOL (test code = 2237) 121 MG/DL RISK RATIO LDL/HDL (test cod e = 2238) 2.05 RATIO Jonatan EasonCOMPREHENSIVE METABOLIC [id number] 00:00:00* Test Item Value Reference Range Interpretation Comme nts GLUCOSE (test code = 2217) 88 MG/DL BUN (test code = 2208) 18 MG/DL CREATININE (test code = 2214) 0.89 MG/DL eGFR AMER. (test cod e = 23824) 83 ML/MIN/1.73 eGFR NON- AMER. (test code = 98871) 71 ML/MIN/1.73 CALC BUN/CREAT (test code = [...] TSH (test code = 2821) 5.070 UIU/ML COMPREHENSIVE METABOLIC [id number] 00:00:00* Test Item Value Reference Range Interpretation Comme nts GLUCOSE (test code = 2217) 88 MG/DL BUN (test code = 2208) 18 MG/DL CREATININE (test code = 2214) 0.89 MG/DL eGFR AMER. (test cod e = 68029) 83 ML/MIN/1.73 eGFR NON- AMER. (test code = 52653) 71 ML/MIN/1.73 CALC BUN/CREAT (test code = [...] = 2219) 100 U/L Jonatan F AustinLIPID [id number] 00:00:00* Test Item Value Reference Range Interpretation Comme nts CHOLESTEROL (test code = 2210) 227 MG/DL TRIGLYCERIDES (test code = 2232) 234 MG/DL HDL CHOLESTEROL (test code = 2220) 59 MG/DL CALC LDL CHOL (test code = 2237) 121 MG/DL RISK RATIO LDL/HDL (test cod e = 2238) 2.05 RATIO THYROID II PROFILE (T3U, T4, T7, TSH)2017-06-14 00:00:00* Test Item Value Reference Range Interpretation Comme nts T3 UPTAKE (test code = 2817) 28.0 % T4 (THYROXINE) (test code = 2819) 7.9 UG/DL CALCULATED T7 (FTI) (test co de = 2820) 2.21 TSH (test code = 2821) 5.070 UIU/ML Jonatan EasonLIPID [id number] 00:00:00* Test Item Value Reference Range Interpretation Comme nts CHOLESTEROL (test code = 2210) 227 MG/DL TRIGLYCERIDES (test code = 2232) 234 MG/DL HDL CHOLESTEROL (test code = 2220) 59 MG/DL CALC LDL CHOL (test code = 2237) 121 MG/DL RISK RATIO LDL/HDL (test cod e = 2238) 2.05 RATIO Jonatan Barber AustinCOMPREHENSIVE METABOLIC [id number] 00:00:00* Test Item Value Reference Range Interpretation Comme nts GLUCOSE (test code = 2217) 88 MG/DL BUN (test code = 2208) 18 MG/DL CREATININE (test code = 2214) 0.89 MG/DL eGFR AMER. (test cod e = 88773) 83 ML/MIN/1.73 eGFR NON- AMER. (test code = 23259) 71 ML/MIN/1.73 CALC BUN/CREAT (test code = [...] (test code = 2219) 100 U/L Jonatan EasonCOMPREHENSIVE METABOLIC [id number] 00:00:00* Test Item Value Reference Range Interpretation Comme nts GLUCOSE (test code = 2217) 88 MG/DL BUN (test code = 2208) 18 MG/DL CREATININE (test code = 2214) 0.89 MG/DL eGFR AMER. (test cod e = 33614) 83 ML/MIN/1.73 eGFR NON- AMER. (test code = 40397) 71 ML/MIN/1.73 CALC BUN/CREAT (test code = [...] TSH (test code = 2821) 5.070 UIU/ML COMPREHENSIVE METABOLIC [id number] 00:00:00* Test Item Value Reference Range Interpretation Comme nts GLUCOSE (test code = 2217) 88 MG/DL BUN (test code = 2208) 18 MG/DL CREATININE (test code = 2214) 0.89 MG/DL eGFR AMER. (test cod e = 53345) 83 ML/MIN/1.73 eGFR NON- AMER. (test code = 52712) 71 ML/MIN/1.73 CALC BUN/CREAT (test code = [...] (test code = 2219) 100 U/L Jonatan Barber LandyTHYROID II PROFILE (T3U, T4, T7, TSH)2017-06-14 00:00:00* Test Item Value Reference Range Interpretation Comme nts T3 UPTAKE (test code = 2817) 28.0 % T4 (THYROXINE) (test code = 2819) 7.9 UG/DL CALCULATED T7 (FTI) (test co de = 2820) 2.21 TSH (test code = 2821) 5.070 UIU/ML LIPID [id number] 00:00:00* Test Item Value Reference Range Interpretation Comme nts CHOLESTEROL (test code = 2210) 227 MG/DL TRIGLYCERIDES (test code = 2232) 234 MG/DL HDL CHOLESTEROL (test code = 2220) 59 MG/DL CALC LDL CHOL (test code = 2237) 121 MG/DL RISK RATIO LDL/HDL (test cod e = 2238) 2.05 RATIO THYROID II PROFILE (T3U, T4, T7, TSH)2017-06-14 00:00:00* Test Item Value Reference Range Interpretation Comme nts T3 UPTAKE (test code = 2817) 28.0 % T4 (THYROXINE) (test code = 2819) 7.9 UG/DL CALCULATED T7 (FTI) (test co de = 2820) 2.21 TSH (test code = 2821) 5.070 UIU/ML Jonatan Barber LandyCOMPREHENSIVE METABOLIC [id number] 00:00:00* Test Item Value Reference Range Interpretation Comme nts GLUCOSE (test code = 2217) 88 MG/DL BUN (test code = 2208) 18 MG/DL CREATININE (test code = 2214) 0.89 MG/DL eGFR AMER. (test cod e = 70403) 83 ML/MIN/1.73 eGFR NON- AMER. (test code = 73002) 71 ML/MIN/1.73 CALC BUN/CREAT (test code = [...] (test code = 2219) 100 U/L Jonatan Barber AustinLIPID [id number] 00:00:00* Test Item Value Reference Range Interpretation Comme nts CHOLESTEROL (test code = 2210) 227 MG/DL TRIGLYCERIDES (test code = 2232) 234 MG/DL HDL CHOLESTEROL (test code = 2220) 59 MG/DL CALC LDL CHOL (test code = 2237) 121 MG/DL RISK RATIO LDL/HDL (test cod e = 2238) 2.05 RATIO Jonatan Barber NyeTHYROID II PROFILE (T3U, T4, T7, TSH)2017-06-14 00:00:00* Test Item Value Reference Range Interpretation Comme nts T3 UPTAKE (test code = 2817) 28.0 % T4 (THYROXINE) (test code = 2819) 7.9 UG/DL CALCULATED T7 (FTI) (test co de = 2820) 2.21 TSH (test code = 2821) 5.070 UIU/ML Jonatan Barber AustinLIPID [id number] 00:00:00* Test Item Value Reference Range Interpretation Comme nts CHOLESTEROL (test code = 2210) 227 MG/DL TRIGLYCERIDES (test code = 2232) 234 MG/DL HDL CHOLESTEROL (test code = 2220) 59 MG/DL CALC LDL CHOL (test code = 2237) 121 MG/DL RISK RATIO LDL/HDL (test cod e = 2238) 2.05 RATIO Jonatan EasonCOMPREHENSIVE METABOLIC [id number] 00:00:00* Test Item Value Reference Range Interpretation Comme nts GLUCOSE (test code = 2217) 88 MG/DL BUN (test code = 2208) 18 MG/DL CREATININE (test code = 2214) 0.89 MG/DL eGFR AMER. (test cod e = 04726) 83 ML/MIN/1.73 eGFR NON- AMER. (test code = 93875) 71 ML/MIN/1.73 CALC BUN/CREAT (test code = [...] code = 2821) 5.070 UIU/ML Jonatan EasonLIPID [id number] 00:00:00* Test Item Value Reference Range Interpretation Comme nts CHOLESTEROL (test code = 2210) 227 MG/DL TRIGLYCERIDES (test code = 2232) 234 MG/DL HDL CHOLESTEROL (test code = 2220) 59 MG/DL CALC LDL CHOL (test code = 2237) 121 MG/DL RISK RATIO LDL/HDL (test cod e = 2238) 2.05 RATIO Jonatan EasonTHYROID II PROFILE (T3U, T4, T7, TSH)2017-06-14 00:00:00* Test Item Value Reference Range Interpretation Comme nts T3 UPTAKE (test code = 2817) 28.0 % T4 (THYROXINE) (test code = 2819) 7.9 UG/DL CALCULATED T7 (FTI) (test co de = 2820) 2.21 TSH (test code = 2821) 5.070 UIU/ML Jonatan EasonLIPID [id number] 00:00:00* Test Item Value Reference Range Interpretation Comme nts CHOLESTEROL (test code = 2210) 227 MG/DL TRIGLYCERIDES (test code = 2232) 234 MG/DL HDL CHOLESTEROL (test code = 2220) 59 MG/DL CALC LDL CHOL (test code = 2237) 121 MG/DL RISK RATIO LDL/HDL (test cod e = 2238) 2.05 RATIO Jonatan EasonCOMPREHENSIVE METABOLIC [id number] 00:00:00* Test Item Value Reference Range Interpretation Comme nts GLUCOSE (test code = 2217) 88 MG/DL BUN (test code = 2208) 18 MG/DL CREATININE (test code = 2214) 0.89 MG/DL eGFR AMER. (test cod e = 83943) 83 ML/MIN/1.73 eGFR NON- AMER. (test code = 45518) 71 ML/MIN/1.73 CALC BUN/CREAT (test code = [...] code = 2821) 5.070 UIU/ML Jonatan EasonLIPID [id number] 00:00:00* Test Item Value Reference Range Interpretation Comme nts CHOLESTEROL (test code = 2210) 227 MG/DL TRIGLYCERIDES (test code = 2232) 234 MG/DL HDL CHOLESTEROL (test code = 2220) 59 MG/DL CALC LDL CHOL (test code = 2237) 121 MG/DL RISK RATIO LDL/HDL (test cod e = 2238) 2.05 RATIO Jonatan EasonCOMPREHENSIVE METABOLIC [id number] 00:00:00* Test Item Value Reference Range Interpretation Comme nts GLUCOSE (test code = 2217) 88 MG/DL BUN (test code = 2208) 18 MG/DL CREATININE (test code = 2214) 0.89 MG/DL eGFR AMER. (test cod e = 70196) 83 ML/MIN/1.73 eGFR NON- AMER. (test code = 23926) 71 ML/MIN/1.73 CALC BUN/CREAT (test code = [...] code = 2821) 5.070 UIU/ML Jonatan EasonLIPID [id number] 00:00:00* Test Item Value Reference Range Interpretation Comme nts CHOLESTEROL (test code = 2210) 227 MG/DL TRIGLYCERIDES (test code = 2232) 234 MG/DL HDL CHOLESTEROL (test code = 2220) 59 MG/DL CALC LDL CHOL (test code = 2237) 121 MG/DL RISK RATIO LDL/HDL (test cod e = 2238) 2.05 RATIO LIPID [id number] 00:00:00* Test Item Value Reference Range Interpretation Comme nts CHOLESTEROL (test code = 2210) 227 MG/DL TRIGLYCERIDES (test code = 2232) 234 MG/DL HDL CHOLESTEROL (test code = 2220) 59 MG/DL CALC LDL CHOL (test code = 2237) 121 MG/DL RISK RATIO LDL/HDL (test cod e = 2238) 2.05 RATIO Jonatan EasonCOMPREHENSIVE METABOLIC [id number] 00:00:00* Test Item Value Reference Range Interpretation Comme nts GLUCOSE (test code = 2217) 88 MG/DL BUN (test code = 2208) 18 MG/DL CREATININE (test code = 2214) 0.89 MG/DL eGFR AMER. (test cod e = 07530) 83 ML/MIN/1.73 eGFR NON- AMER. (test code = 23524) 71 ML/MIN/1.73 CALC BUN/CREAT (test code = [...] ALT (test code = 2219) 100 U/L COMPREHENSIVE METABOLIC [id number] 00:00:00* Test Item Value Reference Range Interpretation Comme nts GLUCOSE (test code = 2217) 88 MG/DL BUN (test code = 2208) 18 MG/DL CREATININE (test code = 2214) 0.89 MG/DL eGFR AMER. (test cod e = 88441) 83 ML/MIN/1.73 eGFR NON- AMER. (test code = 13122) 71 ML/MIN/1.73 CALC BUN/CREAT (test code = [...] (test code = 2219) 100 U/L Jonatan Barbre AustinTHYROID II PROFILE (T3U, T4, T7, TSH)2017-06-14 00:00:00* Test Item Value Reference Range Interpretation Comme nts T3 UPTAKE (test code = 2817) 28.0 % T4 (THYROXINE) (test code = 2819) 7.9 UG/DL CALCULATED T7 (FTI) (test co de = 2820) 2.21 TSH (test code = 2821) 5.070 UIU/ML LIPID [id number] 00:00:00* Test Item Value Reference Range Interpretation Comme nts CHOLESTEROL (test code = 2210) 227 MG/DL TRIGLYCERIDES (test code = 2232) 234 MG/DL HDL CHOLESTEROL (test code = 2220) 59 MG/DL CALC LDL CHOL (test code = 2237) 121 MG/DL RISK RATIO LDL/HDL (test cod e = 2238) 2.05 RATIO THYROID II PROFILE (T3U, T4, T7, TSH)2017-06-14 00:00:00* Test Item Value Reference Range Interpretation Comme nts T3 UPTAKE (test code = 2817) 28.0 % T4 (THYROXINE) (test code = 2819) 7.9 UG/DL CALCULATED T7 (FTI) (test co de = 2820) 2.21 TSH (test code = 2821) 5.070 UIU/ML Jonatan EasonLIPID [id number] 00:00:00* Test Item Value Reference Range Interpretation Comme nts CHOLESTEROL (test code = 2210) 227 MG/DL TRIGLYCERIDES (test code = 2232) 234 MG/DL HDL CHOLESTEROL (test code = 2220) 59 MG/DL CALC LDL CHOL (test code = 2237) 121 MG/DL RISK RATIO LDL/HDL (test cod e = 2238) 2.05 RATIO Jonatan EasonCOMPREHENSIVE METABOLIC [id number] 00:00:00* Test Item Value Reference Range Interpretation Comme nts GLUCOSE (test code = 2217) 88 MG/DL BUN (test code = 2208) 18 MG/DL CREATININE (test code = 2214) 0.89 MG/DL eGFR AMER. (test cod e = 30757) 83 ML/MIN/1.73 eGFR NON- AMER. (test code = 26313) 71 ML/MIN/1.73 CALC BUN/CREAT (test code = [...] ALT (test code = 2219) 100 U/L COMPREHENSIVE METABOLIC [id number] 00:00:00* Test Item Value Reference Range Interpretation Comme nts GLUCOSE (test code = 2217) 88 MG/DL BUN (test code = 2208) 18 MG/DL CREATININE (test code = 2214) 0.89 MG/DL eGFR AMER. (test cod e = 74759) 83 ML/MIN/1.73 eGFR NON- AMER. (test code = 24308) 71 ML/MIN/1.73 CALC BUN/CREAT (test code = [...] (test code = 2219) 100 U/L Jonatan Barber AustinTHYROID II PROFILE (T3U, T4, T7, TSH)2017-06-14 00:00:00* Test Item Value Reference Range Interpretation Comme nts T3 UPTAKE (test code = 2817) 28.0 % T4 (THYROXINE) (test code = 2819) 7.9 UG/DL CALCULATED T7 (FTI) (test co de = 2820) 2.21 TSH (test code = 2821) 5.070 UIU/ML Jonatan EasonTHYROID II PROFILE (T3U, T4, T7, TSH)2017-06-14 00:00:00* Test Item Value Reference Range Interpretation Comme nts T3 UPTAKE (test code = 2817) 28.0 % T4 (THYROXINE) (test code = 2819) 7.9 UG/DL CALCULATED T7 (FTI) (test co de = 2820) 2.21 TSH (test code = 2821) 5.070 UIU/ML COMPREHENSIVE METABOLIC [id number] 00:00:00* Test Item Value Reference Range Interpretation Comme nts GLUCOSE (test code = 2345-7) 94 mg/dL UREA NITROGEN (BUN) (test code = 3094-0) 14 mg/dL CREATININE (test code = 2160-0) 0.84 mg/dL eGFR NON-AFR. ANGOLAN (test code = 76065-7) 77 mL/min/1.73m2 eGFR (test code = 80712-9) 89 mL/min/1.73m2 BUN/CREATININE RATIO (test code = 3097-3) NOT APPLICABLE (calc) SODIUM (test code = 2951-2) 140 mmol/L POTASSIUM (test code = 2823-3) 4.1 mmol/L CHLORIDE (test code = 2075-0) 105 mmol/L CARBON DIOXIDE (test code = 2027-9) 25 mmol/L CALCIUM (test code = 15391-2) 9.3 mg/dL PROTEIN, TOTAL (test code = 2885-2) 6.6 g/dL ALBUMIN (test code = 1751-7) 4.1 g/dL GLOBULIN (test code = 82584-4) 2.5 g/dL(calc) ALBUMIN/GLOBULIN RATIO (test code = 1759-0) 1.6 (calc) BILIRUBIN, TOTAL (test code = 1975-2) 0.3 mg/dL ALKALINE PHOSPHATASE (test code = 6768-6) 119 U/L AST (test code = 1920-8) 28 U/L ALT (test code = 1742-6) 21 U/L Jonatan [id number] 00:00:00* Test Item Value Reference Range Interpretation Comme nts TSH (test code = 3016-3) 3.07 mIU/L [id number] 00:00:00* Test Item Value Reference Range Interpretation Comme nts TSH (test code = 3016-3) 3.07 mIU/L Jonatan EasonLIPID [id number] 00:00:00* Test Item Value Reference Range Interpretation Comme nts CHOLESTEROL, TOTAL (test cod e = 2093-3) 224 mg/dL HDL CHOLESTEROL (test code = 2085-9) 53 mg/dL TRIGLYCERIDES (test code = 2571-8) 322 mg/dL LDL-CHOLESTEROL (test code = 16368-6) 125 mg/dL(calc) CHOL/HDLC RATIO (test code = 9830-1) 4.2 (calc) NON HDL CHOLESTEROL (test code = 21581-4) 171 mg/dL(calc) LIPID [id number] 00:00:00* Test Item Value Reference Range Interpretation Comme nts CHOLESTEROL, TOTAL (test cod e = 2093-3) 224 mg/dL HDL CHOLESTEROL (test code = 2085-9) 53 mg/dL TRIGLYCERIDES (test code = 2571-8) 322 mg/dL LDL-CHOLESTEROL (test code = 87502-9) 125 mg/dL(calc) CHOL/HDLC RATIO (test code = 9830-1) 4.2 (calc) NON HDL CHOLESTEROL (test code = 17337-1) 171 mg/dL(calc) Jonatan EasonCOMPREHENSIVE METABOLIC [id number] 00:00:00* Test Item Value Reference Range Interpretation Comme nts GLUCOSE (test code = 2345-7) 94 mg/dL UREA NITROGEN (BUN) (test code = 3094-0) 14 mg/dL CREATININE (test code = 2160-0) 0.84 mg/dL eGFR NON-AFR. ANGOLAN (test code = 47275-5) 77 mL/min/1.73m2 eGFR (test code = 44077-6) 89 mL/min/1.73m2 BUN/CREATININE RATIO (test code = 3097-3) NOT APPLICABLE (calc) SODIUM (test code = 2951-2) 140 mmol/L POTASSIUM (test code = 2823-3) 4.1 mmol/L CHLORIDE (test code = 2075-0) 105 mmol/L CARBON DIOXIDE (test code = 2027-9) 25 mmol/L CALCIUM (test code = 68367-4) 9.3 mg/dL PROTEIN, TOTAL (test code = 2885-2) 6.6 g/dL ALBUMIN (test code = 1751-7) 4.1 g/dL GLOBULIN (test code = 74795-4) 2.5 g/dL(calc) ALBUMIN/GLOBULIN RATIO (test code = 1759-0) 1.6 (calc) BILIRUBIN, TOTAL (test code = 1974-) 0.3 mg/dL ALKALINE PHOSPHATASE (test code = 6768-6) 119 U/L AST (test code = 1920-8) 28 U/L ALT (test code = 1742-6) 21 U/L [id number] 00:00:00* Test Item Value Reference Range Interpretation Comme nts TSH (test code = 3016-3) 3.07 mIU/L COMPREHENSIVE METABOLIC [id number] 00:00:00* Test Item Value Reference Range Interpretation Comme nts GLUCOSE (test code = 2345-7) 94 mg/dL UREA NITROGEN (BUN) (test code = 3094-0) 14 mg/dL CREATININE (test code = 2160-0) 0.84 mg/dL eGFR NON-AFR. ANGOLAN (test code = 27688-9) 77 mL/min/1.73m2 eGFR (test code = 55555-6) 89 mL/min/1.73m2 BUN/CREATININE RATIO (test code = 3097-3) NOT APPLICABLE (calc) SODIUM (test code = 2951-2) 140 mmol/L POTASSIUM (test code = 2823-3) 4.1 mmol/L CHLORIDE (test code = 2075-0) 105 mmol/L CARBON DIOXIDE (test code = 2027-) 25 mmol/L CALCIUM (test code = 09637-3) 9.3 mg/dL PROTEIN, TOTAL (test code = 2885-2) 6.6 g/dL ALBUMIN (test code = 1751-7) 4.1 g/dL GLOBULIN (test code = 09989-9) 2.5 g/dL(calc) ALBUMIN/GLOBULIN RATIO (test code = 1759-0) 1.6 (calc) BILIRUBIN, TOTAL (test code = 1974-) 0.3 mg/dL ALKALINE PHOSPHATASE (test code = 6768-6) 119 U/L AST (test code = 1920-8) 28 U/L ALT (test code = 1742-6) 21 U/L Jonatan EasonLIPID [id number] 00:00:00* Test Item Value Reference Range Interpretation Comme nts CHOLESTEROL, TOTAL (test cod e = 2093-3) 224 mg/dL HDL CHOLESTEROL (test code = 2085-9) 53 mg/dL TRIGLYCERIDES (test code = 2571-8) 322 mg/dL LDL-CHOLESTEROL (test code = 93858-2) 125 mg/dL(calc) CHOL/HDLC RATIO (test code = 9830-1) 4.2 (calc) NON HDL CHOLESTEROL (test code = 22359-1) 171 mg/dL(calc) [id number] 00:00:00* Test Item Value Reference Range Interpretation Comme nts TSH (test code = 3016-3) 3.07 mIU/L Jonatan EasonCOMPREHENSIVE METABOLIC [id number] 00:00:00* Test Item Value Reference Range Interpretation Comme nts GLUCOSE (test code = 2345-7) 94 mg/dL UREA NITROGEN (BUN) (test code = 3094-0) 14 mg/dL CREATININE (test code = 2160-0) 0.84 mg/dL eGFR NON-AFR. ANGOLAN (test code = 40076-7) 77 mL/min/1.73m2 eGFR (test code = 02543-6) 89 mL/min/1.73m2 BUN/CREATININE RATIO (test code = 3097-3) NOT APPLICABLE (calc) SODIUM (test code = 2951-2) 140 mmol/L POTASSIUM (test code = 2823-3) 4.1 mmol/L CHLORIDE (test code = 2075-0) 105 mmol/L CARBON DIOXIDE (test code = 8-9) 25 mmol/L CALCIUM (test code = 39775-5) 9.3 mg/dL PROTEIN, TOTAL (test code = 2885-2) 6.6 g/dL ALBUMIN (test code = 1751-7) 4.1 g/dL GLOBULIN (test code = 00371-4) 2.5 g/dL(calc) ALBUMIN/GLOBULIN RATIO (test code = 1759-0) 1.6 (calc) BILIRUBIN, TOTAL (test code = 1975-2) 0.3 mg/dL ALKALINE PHOSPHATASE (test code = 6768-6) 119 U/L AST (test code = 1920-8) 28 U/L ALT (test code = 1742-6) 21 U/L [id number] 00:00:00* Test Item Value Reference Range Interpretation Comme nts TSH (test code = 3016-3) 3.07 mIU/L LIPID [id number] 00:00:00* Test Item Value Reference Range Interpretation Comme nts CHOLESTEROL, TOTAL (test cod e = 2093-3) 224 mg/dL HDL CHOLESTEROL (test code = 2085-9) 53 mg/dL TRIGLYCERIDES (test code = 2571-8) 322 mg/dL LDL-CHOLESTEROL (test code = 98044-1) 125 mg/dL(calc) CHOL/HDLC RATIO (test code = 9830-1) 4.2 (calc) NON HDL CHOLESTEROL (test code = 81344-1) 171 mg/dL(calc) Jonatan Barber AustinLIPID [id number] 00:00:00* Test Item Value Reference Range Interpretation Comme nts CHOLESTEROL, TOTAL (test cod e = 2093-3) 224 mg/dL HDL CHOLESTEROL (test code = 2085-9) 53 mg/dL TRIGLYCERIDES (test code = 2571-8) 322 mg/dL LDL-CHOLESTEROL (test code = 22446-2) 125 mg/dL(calc) CHOL/HDLC RATIO (test code = 9830-1) 4.2 (calc) NON HDL CHOLESTEROL (test code = 49429-7) 171 mg/dL(calc) COMPREHENSIVE METABOLIC [id number] 00:00:00* Test Item Value Reference Range Interpretation Comme nts GLUCOSE (test code = 2345-7) 94 mg/dL UREA NITROGEN (BUN) (test code = 3094-0) 14 mg/dL CREATININE (test code = 2160-0) 0.84 mg/dL eGFR NON-AFR. ANGOLAN (test code = 39174-4) 77 mL/min/1.73m2 eGFR (test code = 83361-0) 89 mL/min/1.73m2 BUN/CREATININE RATIO (test code = 3097-3) NOT APPLICABLE (calc) SODIUM (test code = 2951-2) 140 mmol/L POTASSIUM (test code = 2823-3) 4.1 mmol/L CHLORIDE (test code = 2075-0) 105 mmol/L CARBON DIOXIDE (test code = 2027-9) 25 mmol/L CALCIUM (test code = 15018-5) 9.3 mg/dL PROTEIN, TOTAL (test code = 2885-2) 6.6 g/dL ALBUMIN (test code = 1751-7) 4.1 g/dL GLOBULIN (test code = 86271-4) 2.5 g/dL(calc) ALBUMIN/GLOBULIN RATIO (test code = 1759-0) 1.6 (calc) BILIRUBIN, TOTAL (test code = 1975-2) 0.3 mg/dL ALKALINE PHOSPHATASE (test code = 6768-6) 119 U/L AST (test code = 1920-8) 28 U/L ALT (test code = 1742-6) 21 U/L Jonatan [id number] 00:00:00* Test Item Value Reference Range Interpretation Comme nts TSH (test code = 3016-3) 3.07 mIU/L Jonatan Barber NyeLIPID [id number] 00:00:00* Test Item Value Reference Range Interpretation Comme nts CHOLESTEROL, TOTAL (test cod e = 2093-3) 224 mg/dL HDL CHOLESTEROL (test code = 2085-9) 53 mg/dL TRIGLYCERIDES (test code = 2571-8) 322 mg/dL LDL-CHOLESTEROL (test code = 94570-2) 125 mg/dL(calc) CHOL/HDLC RATIO (test code = 9830-1) 4.2 (calc) NON HDL CHOLESTEROL (test code = 00287-1) 171 mg/dL(calc) COMPREHENSIVE METABOLIC [id number] 00:00:00* Test Item Value Reference Range Interpretation Comme nts GLUCOSE (test code = 2345-7) 94 mg/dL UREA NITROGEN (BUN) (test code = 3094-0) 14 mg/dL CREATININE (test code = 2160-0) 0.84 mg/dL eGFR NON-AFR. ANGOLAN (test code = 64275-3) 77 mL/min/1.73m2 eGFR (test code = 06544-1) 89 mL/min/1.73m2 BUN/CREATININE RATIO (test code = 3097-3) NOT APPLICABLE (calc) SODIUM (test code = 2951-2) 140 mmol/L POTASSIUM (test code = 2823-3) 4.1 mmol/L CHLORIDE (test code = 2075-0) 105 mmol/L CARBON DIOXIDE (test code = 2027-9) 25 mmol/L CALCIUM (test code = 64191-8) 9.3 mg/dL PROTEIN, TOTAL (test code = 2885-2) 6.6 g/dL ALBUMIN (test code = 1751-7) 4.1 g/dL GLOBULIN (test code = 77450-0) 2.5 g/dL(calc) ALBUMIN/GLOBULIN RATIO (test code = 1759-0) 1.6 (calc) BILIRUBIN, TOTAL (test code = 1975-2) 0.3 mg/dL ALKALINE PHOSPHATASE (test code = 6768-6) 119 U/L AST (test code = 1920-8) 28 U/L ALT (test code = 1742-6) 21 U/L [id number] 00:00:00* Test Item Value Reference Range Interpretation Comme nts TSH (test code = 3016-3) 3.07 mIU/L LIPID [id number] 00:00:00* Test Item Value Reference Range Interpretation Comme nts CHOLESTEROL, TOTAL (test cod e = 2093-3) 224 mg/dL HDL CHOLESTEROL (test code = 2085-9) 53 mg/dL TRIGLYCERIDES (test code = 2571-8) 322 mg/dL LDL-CHOLESTEROL (test code = 62482-8) 125 mg/dL(calc) CHOL/HDLC RATIO (test code = 9830-1) 4.2 (calc) NON HDL CHOLESTEROL (test code = 45759-2) 171 mg/dL(calc) Jonatan Barber LandyCOMPREHENSIVE METABOLIC [id number] 00:00:00* Test Item Value Reference Range Interpretation Comme nts GLUCOSE (test code = 2345-7) 94 mg/dL UREA NITROGEN (BUN) (test code = 3094-0) 14 mg/dL CREATININE (test code = 2160-0) 0.84 mg/dL eGFR NON-AFR. ANGOLAN (test code = 52500-3) 77 mL/min/1.73m2 eGFR (test code = 33684-1) 89 mL/min/1.73m2 BUN/CREATININE RATIO (test code = 3097-3) NOT APPLICABLE (calc) SODIUM (test code = 2951-2) 140 mmol/L POTASSIUM (test code = 2823-3) 4.1 mmol/L CHLORIDE (test code = 2075-0) 105 mmol/L CARBON DIOXIDE (test code = 2027-) 25 mmol/L CALCIUM (test code = 24427-8) 9.3 mg/dL PROTEIN, TOTAL (test code = 2885-2) 6.6 g/dL ALBUMIN (test code = 1751-7) 4.1 g/dL GLOBULIN (test code = 67066-6) 2.5 g/dL(calc) ALBUMIN/GLOBULIN RATIO (test code = 1759-0) 1.6 (calc) BILIRUBIN, TOTAL (test code = 1975-2) 0.3 mg/dL ALKALINE PHOSPHATASE (test code = 6768-6) 119 U/L AST (test code = 1920-8) 28 U/L ALT (test code = 1742-6) 21 U/L COMPREHENSIVE METABOLIC [id number] 00:00:00* Test Item Value Reference Range Interpretation Comme nts GLUCOSE (test code = 2345-7) 94 mg/dL UREA NITROGEN (BUN) (test code = 3094-0) 14 mg/dL CREATININE (test code = 2160-0) 0.84 mg/dL eGFR NON-AFR. ANGOLAN (test code = 32445-2) 77 mL/min/1.73m2 eGFR (test code = 32962-5) 89 mL/min/1.73m2 BUN/CREATININE RATIO (test code = 3097-3) NOT APPLICABLE (calc) SODIUM (test code = 2951-2) 140 mmol/L POTASSIUM (test code = 2823-3) 4.1 mmol/L CHLORIDE (test code = 2075-0) 105 mmol/L CARBON DIOXIDE (test code = 2027-9) 25 mmol/L CALCIUM (test code = 03706-4) 9.3 mg/dL PROTEIN, TOTAL (test code = 2885-2) 6.6 g/dL ALBUMIN (test code = 1751-7) 4.1 g/dL GLOBULIN (test code = 00760-8) 2.5 g/dL(calc) ALBUMIN/GLOBULIN RATIO (test code = 1759-0) 1.6 (calc) BILIRUBIN, TOTAL (test code = 1975-2) 0.3 mg/dL ALKALINE PHOSPHATASE (test code = 6768-6) 119 U/L AST (test code = 1920-8) 28 U/L ALT (test code = 1742-6) 21 U/L Jonatan [id number] 00:00:00* Test Item Value Reference Range Interpretation Comme nts TSH (test code = 3016-3) 3.07 mIU/L Jonatan Barber AustinLIPID [id number] 00:00:00* Test Item Value Reference Range Interpretation Comme nts CHOLESTEROL, TOTAL (test cod e = 2093-3) 224 mg/dL HDL CHOLESTEROL (test code = 2085-9) 53 mg/dL TRIGLYCERIDES (test code = 2571-8) 322 mg/dL LDL-CHOLESTEROL (test code = 15214-4) 125 mg/dL(calc) CHOL/HDLC RATIO (test code = 9830-1) 4.2 (calc) NON HDL CHOLESTEROL (test code = 76490-3) 171 mg/dL(calc) COMPREHENSIVE METABOLIC [id number] 00:00:00* Test Item Value Reference Range Interpretation Comme nts GLUCOSE (test code = 2345-7) 94 mg/dL UREA NITROGEN (BUN) (test code = 3094-0) 14 mg/dL CREATININE (test code = 2160-0) 0.84 mg/dL eGFR NON-AFR. ANGOLAN (test code = 56950-3) 77 mL/min/1.73m2 eGFR (test code = 22400-8) 89 mL/min/1.73m2 BUN/CREATININE RATIO (test code = 3097-3) NOT APPLICABLE (calc) SODIUM (test code = 2951-2) 140 mmol/L POTASSIUM (test code = 2823-3) 4.1 mmol/L CHLORIDE (test code = 2075-0) 105 mmol/L CARBON DIOXIDE (test code = 2027-9) 25 mmol/L CALCIUM (test code = 71505-2) 9.3 mg/dL PROTEIN, TOTAL (test code = 2885-2) 6.6 g/dL ALBUMIN (test code = 1751-7) 4.1 g/dL GLOBULIN (test code = 75341-3) 2.5 g/dL(calc) ALBUMIN/GLOBULIN RATIO (test code = 1759-0) 1.6 (calc) BILIRUBIN, TOTAL (test code = 1975-2) 0.3 mg/dL ALKALINE PHOSPHATASE (test code = 6768-6) 119 U/L AST (test code = 1920-8) 28 U/L ALT (test code = 1742-6) 21 U/L LIPID [id number] 00:00:00* Test Item Value Reference Range Interpretation Comme nts CHOLESTEROL, TOTAL (test cod e = 2093-3) 224 mg/dL HDL CHOLESTEROL (test code = 2085-9) 53 mg/dL TRIGLYCERIDES (test code = 2571-8) 322 mg/dL LDL-CHOLESTEROL (test code = 55850-0) 125 mg/dL(calc) CHOL/HDLC RATIO (test code = 9830-1) 4.2 (calc) NON HDL CHOLESTEROL (test code = 47477-7) 171 mg/dL(calc) Jonatan Barber [id number] 00:00:00* Test Item Value Reference Range Interpretation Comme nts TSH (test code = 3016-3) 3.07 mIU/L COMPREHENSIVE METABOLIC [id number] 00:00:00* Test Item Value Reference Range Interpretation Comme nts GLUCOSE (test code = 2345-7) 94 mg/dL UREA NITROGEN (BUN) (test code = 3094-0) 14 mg/dL CREATININE (test code = 2160-0) 0.84 mg/dL eGFR NON-AFR. ANGOLAN (test code = 26044-4) 77 mL/min/1.73m2 eGFR (test code = 52922-4) 89 mL/min/1.73m2 BUN/CREATININE RATIO (test code = 3097-3) NOT APPLICABLE (calc) SODIUM (test code = 2951-2) 140 mmol/L POTASSIUM (test code = 2823-3) 4.1 mmol/L CHLORIDE (test code = 2075-0) 105 mmol/L CARBON DIOXIDE (test code = 2027-9) 25 mmol/L CALCIUM (test code = 44661-9) 9.3 mg/dL PROTEIN, TOTAL (test code = 2885-2) 6.6 g/dL ALBUMIN (test code = 1751-7) 4.1 g/dL GLOBULIN (test code = 84275-2) 2.5 g/dL(calc) ALBUMIN/GLOBULIN RATIO (test code = 1759-0) 1.6 (calc) BILIRUBIN, TOTAL (test code = 1975-2) 0.3 mg/dL ALKALINE PHOSPHATASE (test code = 6768-6) 119 U/L AST (test code = 1920-8) 28 U/L ALT (test code = 1742-6) 21 U/L Jonatan [id number] 00:00:00* Test Item Value Reference Range Interpretation Comme nts TSH (test code = 3016-3) 3.07 mIU/L Jonatan EasonLIPID [id number] 00:00:00* Test Item Value Reference Range Interpretation Comme nts CHOLESTEROL, TOTAL (test cod e = 2093-3) 224 mg/dL HDL CHOLESTEROL (test code = 2085-9) 53 mg/dL TRIGLYCERIDES (test code = 2571-8) 322 mg/dL LDL-CHOLESTEROL (test code = 17175-6) 125 mg/dL(calc) CHOL/HDLC RATIO (test code = 9830-1) 4.2 (calc) NON HDL CHOLESTEROL (test code = 09248-5) 171 mg/dL(calc) Jonatan EasonCOMPREHENSIVE METABOLIC [id number] 00:00:00* Test Item Value Reference Range Interpretation Comme nts GLUCOSE (test code = 2345-7) 94 mg/dL UREA NITROGEN (BUN) (test code = 3094-0) 14 mg/dL CREATININE (test code = 2160-0) 0.84 mg/dL eGFR NON-AFR. ANGOLAN (test code = 94628-3) 77 mL/min/1.73m2 eGFR (test code = 79911-5) 89 mL/min/1.73m2 BUN/CREATININE RATIO (test code = 3097-3) NOT APPLICABLE (calc) SODIUM (test code = 2951-2) 140 mmol/L POTASSIUM (test code = 2823-3) 4.1 mmol/L CHLORIDE (test code = 2075-0) 105 mmol/L CARBON DIOXIDE (test code = 2027-9) 25 mmol/L CALCIUM (test code = 75719-0) 9.3 mg/dL PROTEIN, TOTAL (test code = 2885-2) 6.6 g/dL ALBUMIN (test code = 1751-7) 4.1 g/dL GLOBULIN (test code = 78582-0) 2.5 g/dL(calc) ALBUMIN/GLOBULIN RATIO (test code = 1759-0) 1.6 (calc) BILIRUBIN, TOTAL (test code = 1975-2) 0.3 mg/dL ALKALINE PHOSPHATASE (test code = 6768-6) 119 U/L AST (test code = 1920-8) 28 U/L ALT (test code = 1742-6) 21 U/L Jonatan [id number] 00:00:00* Test Item Value Reference Range Interpretation Comme nts TSH (test code = 3016-3) 3.07 mIU/L Jonatan EasonLIPID [id number] 00:00:00* Test Item Value Reference Range Interpretation Comme nts CHOLESTEROL, TOTAL (test cod e = 2093-3) 224 mg/dL HDL CHOLESTEROL (test code = 2085-9) 53 mg/dL TRIGLYCERIDES (test code = 2571-8) 322 mg/dL LDL-CHOLESTEROL (test code = 64505-9) 125 mg/dL(calc) CHOL/HDLC RATIO (test code = 9830-1) 4.2 (calc) NON HDL CHOLESTEROL (test code = 36690-1) 171 mg/dL(calc) Jonatan Barber AustinLIPID [id number] 00:00:00* Test Item Value Reference Range Interpretation Comme nts CHOLESTEROL, TOTAL (test cod e = 2093-3) 224 mg/dL HDL CHOLESTEROL (test code = 2085-9) 53 mg/dL TRIGLYCERIDES (test code = 2571-8) 322 mg/dL LDL-CHOLESTEROL (test code = 34315-5) 125 mg/dL(calc) CHOL/HDLC RATIO (test code = 9830-1) 4.2 (calc) NON HDL CHOLESTEROL (test code = 10712-6) 171 mg/dL(calc) Jonatan EasonCOMPREHENSIVE METABOLIC [id number] 00:00:00* Test Item Value Reference Range Interpretation Comme nts GLUCOSE (test code = 2345-7) 94 mg/dL UREA NITROGEN (BUN) (test code = 3094-0) 14 mg/dL CREATININE (test code = 2160-0) 0.84 mg/dL eGFR NON-AFR. ANGOLAN (test code = 80987-4) 77 mL/min/1.73m2 eGFR (test code = 75698-7) 89 mL/min/1.73m2 BUN/CREATININE RATIO (test code = 3097-3) NOT APPLICABLE (calc) SODIUM (test code = 2951-2) 140 mmol/L POTASSIUM (test code = 2823-3) 4.1 mmol/L CHLORIDE (test code = 2075-0) 105 mmol/L CARBON DIOXIDE (test code = 2027-9) 25 mmol/L CALCIUM (test code = 65162-9) 9.3 mg/dL PROTEIN, TOTAL (test code = 2885-2) 6.6 g/dL ALBUMIN (test code = 1751-7) 4.1 g/dL GLOBULIN (test code = 18677-8) 2.5 g/dL(calc) ALBUMIN/GLOBULIN RATIO (test code = 1759-0) 1.6 (calc) BILIRUBIN, TOTAL (test code = 1975-2) 0.3 mg/dL ALKALINE PHOSPHATASE (test code = 6768-6) 119 U/L AST (test code = 1920-8) 28 U/L ALT (test code = 1742-6) 21 U/L Jonatan Barber [id number] 00:00:00* Test Item Value Reference Range Interpretation Comme nts TSH (test code = 3016-3) 3.07 mIU/L Jonatan EasonCOMPREHENSIVE METABOLIC [id number] 00:00:00* Test Item Value Reference Range Interpretation Comme nts GLUCOSE (test code = 2345-7) 94 mg/dL UREA NITROGEN (BUN) (test code = 3094-0) 14 mg/dL CREATININE (test code = 2160-0) 0.84 mg/dL eGFR NON-AFR. ANGOLAN (test code = 88236-4) 77 mL/min/1.73m2 eGFR (test code = 96675-3) 89 mL/min/1.73m2 BUN/CREATININE RATIO (test code = 3097-3) NOT APPLICABLE (calc) SODIUM (test code = 2951-2) 140 mmol/L POTASSIUM (test code = 2823-3) 4.1 mmol/L CHLORIDE (test code = 5-0) 105 mmol/L CARBON DIOXIDE (test code = 2027-9) 25 mmol/L CALCIUM (test code = 75421-8) 9.3 mg/dL PROTEIN, TOTAL (test code = 2885-2) 6.6 g/dL ALBUMIN (test code = 1751-7) 4.1 g/dL GLOBULIN (test code = 06137-7) 2.5 g/dL(calc) ALBUMIN/GLOBULIN RATIO (test code = 1759-0) 1.6 (calc) BILIRUBIN, TOTAL (test code = 1975-2) 0.3 mg/dL ALKALINE PHOSPHATASE (test code = 6768-6) 119 U/L AST (test code = 1920-8) 28 U/L ALT (test code = 1742-6) 21 U/L Jonatan [id number] 00:00:00* Test Item Value Reference Range Interpretation Comme nts TSH (test code = 3016-3) 3.07 mIU/L Jonatan Barber NyeLIPID [id number] 00:00:00* Test Item Value Reference Range Interpretation Comme nts CHOLESTEROL, TOTAL (test cod e = 2093-3) 224 mg/dL HDL CHOLESTEROL (test code = 2085-9) 53 mg/dL TRIGLYCERIDES (test code = 2571-8) 322 mg/dL LDL-CHOLESTEROL (test code = 00103-9) 125 mg/dL(calc) CHOL/HDLC RATIO (test code = 9830-1) 4.2 (calc) NON HDL CHOLESTEROL (test code = 82233-0) 171 mg/dL(calc) Jonatan Barber NyeCOMPREHENSIVE METABOLIC [id number] 00:00:00* Test Item Value Reference Range Interpretation Comme nts GLUCOSE (test code = 2345-7) 94 mg/dL UREA NITROGEN (BUN) (test code = 3094-0) 14 mg/dL CREATININE (test code = 2160-0) 0.84 mg/dL eGFR NON-AFR. ANGOLAN (test code = 59858-0) 77 mL/min/1.73m2 eGFR (test code = 06098-1) 89 mL/min/1.73m2 BUN/CREATININE RATIO (test code = 3097-3) NOT APPLICABLE (calc) SODIUM (test code = 2951-2) 140 mmol/L POTASSIUM (test code = 2823-3) 4.1 mmol/L CHLORIDE (test code = 2075-0) 105 mmol/L CARBON DIOXIDE (test code = 2027-9) 25 mmol/L CALCIUM (test code = 02104-6) 9.3 mg/dL PROTEIN, TOTAL (test code = 2885-2) 6.6 g/dL ALBUMIN (test code = 1751-7) 4.1 g/dL GLOBULIN (test code = 41896-2) 2.5 g/dL(calc) ALBUMIN/GLOBULIN RATIO (test code = 1759-0) 1.6 (calc) BILIRUBIN, TOTAL (test code = 1975-2) 0.3 mg/dL ALKALINE PHOSPHATASE (test code = 6768-6) 119 U/L AST (test code = 1920-8) 28 U/L ALT (test code = 1742-6) 21 U/L Jonatan [id number] 00:00:00* Test Item Value Reference Range Interpretation Comme [facility] TSH (test code = 3016-3) 3.07 mIU/L Jonatan Barber NyeLIPID [id number] 00:00:00* Test Item Value Reference Range Interpretation Comme [facility] CHOLESTEROL, TOTAL (test cod e = 2093-3) 224 mg/dL HDL CHOLESTEROL (test code = 2085-9) 53 mg/dL TRIGLYCERIDES (test code = 2571-8) 322 mg/dL LDL-CHOLESTEROL (test code = 89703-8) 125 mg/dL(calc) CHOL/HDLC RATIO (test code = 9830-1) 4.2 (calc) NON HDL CHOLESTEROL (test code = 57792-7) 171 mg/dL(calc) Jonatan Barber NyeCOMPREHENSIVE METABOLIC [id number] 00:00:00* Test Item Value Reference Range Interpretation Comme nts GLUCOSE (test code = 2345-7) 94 mg/dL UREA NITROGEN (BUN) (test code = 3094-0) 14 mg/dL CREATININE (test code = 2160-0) 0.84 mg/dL eGFR NON-AFR. ANGOLAN (test code = 43178-6) 77 mL/min/1.73m2 eGFR (test code = 17491-7) 89 mL/min/1.73m2 BUN/CREATININE RATIO (test code = 3097-3) NOT APPLICABLE (calc) SODIUM (test code = 2951-2) 140 mmol/L POTASSIUM (test code = 2823-3) 4.1 mmol/L CHLORIDE (test code = 2075-0) 105 mmol/L CARBON DIOXIDE (test code = 2027-9) 25 mmol/L CALCIUM (test code = 18896-1) 9.3 mg/dL PROTEIN, TOTAL (test code = 2885-2) 6.6 g/dL ALBUMIN (test code = 1751-7) 4.1 g/dL GLOBULIN (test code = 43459-0) 2.5 g/dL(calc) ALBUMIN/GLOBULIN RATIO (test code = 1759-0) 1.6 (calc) BILIRUBIN, TOTAL (test code = 1975-2) 0.3 mg/dL ALKALINE PHOSPHATASE (test code = 6768-6) 119 U/L AST (test code = 1920-8) 28 U/L ALT (test code = 1742-6) 21 U/L Jonatan Barber [id number] 00:00:00* Test Item Value Reference Range Interpretation Comme nts TSH (test code = 3016-3) 3.07 mIU/L Jonatan Barber [id number] 00:00:00* Test Item Value Reference Range Interpretation Comme nts TSH (test code = 3016-3) 3.07 mIU/L LIPID [id number] 00:00:00* Test Item Value Reference Range Interpretation Comme nts CHOLESTEROL, TOTAL (test cod e = 2093-3) 224 mg/dL HDL CHOLESTEROL (test code = 2085-9) 53 mg/dL TRIGLYCERIDES (test code = 2571-8) 322 mg/dL LDL-CHOLESTEROL (test code = 98822-5) 125 mg/dL(calc) CHOL/HDLC RATIO (test code = 9830-1) 4.2 (calc) NON HDL CHOLESTEROL (test code = 12261-6) 171 mg/dL(calc) LIPID [id number] 00:00:00* Test Item Value Reference Range Interpretation Comme nts CHOLESTEROL, TOTAL (test cod e = 2093-3) 224 mg/dL HDL CHOLESTEROL (test code = 2085-9) 53 mg/dL TRIGLYCERIDES (test code = 2571-8) 322 mg/dL LDL-CHOLESTEROL (test code = 26115-0) 125 mg/dL(calc) CHOL/HDLC RATIO (test code = 9830-1) 4.2 (calc) NON HDL CHOLESTEROL (test code = 64125-7) 171 mg/dL(calc) Jonatan EasonCOMPREHENSIVE METABOLIC [id number] 00:00:00* Test Item Value Reference Range Interpretation Comme nts GLUCOSE (test code = 2345-7) 94 mg/dL UREA NITROGEN (BUN) (test code = 3094-0) 14 mg/dL CREATININE (test code = 2160-0) 0.84 mg/dL eGFR NON-AFR. ANGOLAN (test code = 18648-4) 77 mL/min/1.73m2 eGFR (test code = 14162-4) 89 mL/min/1.73m2 BUN/CREATININE RATIO (test code = 3097-3) NOT APPLICABLE (calc) SODIUM (test code = 2951-2) 140 mmol/L POTASSIUM (test code = 2823-3) 4.1 mmol/L CHLORIDE (test code = 2075-0) 105 mmol/L CARBON DIOXIDE (test code = 2027-9) 25 mmol/L CALCIUM (test code = 30033-8) 9.3 mg/dL PROTEIN, TOTAL (test code = 2885-2) 6.6 g/dL ALBUMIN (test code = 1751-7) 4.1 g/dL GLOBULIN (test code = 73861-3) 2.5 g/dL(calc) ALBUMIN/GLOBULIN RATIO (test code = 1759-0) 1.6 (calc) BILIRUBIN, TOTAL (test code = 1975-2) 0.3 mg/dL ALKALINE PHOSPHATASE (test code = 6768-6) 119 U/L AST (test code = 1920-8) 28 U/L ALT (test code = 1742-6) 21 U/L COMPREHENSIVE METABOLIC [id number] 00:00:00* Test Item Value Reference Range Interpretation Comme nts GLUCOSE (test code = 2345-7) 94 mg/dL UREA NITROGEN (BUN) (test code = 3094-0) 14 mg/dL CREATININE (test code = 2160-0) 0.84 mg/dL eGFR NON-AFR. ANGOLAN (test code = 32069-4) 77 mL/min/1.73m2 eGFR (test code = 14091-1) 89 mL/min/1.73m2 BUN/CREATININE RATIO (test code = 3097-3) NOT APPLICABLE (calc) SODIUM (test code = 2951-2) 140 mmol/L POTASSIUM (test code = 2823-3) 4.1 mmol/L CHLORIDE (test code = 2075-0) 105 mmol/L CARBON DIOXIDE (test code = 2027-9) 25 mmol/L CALCIUM (test code = 19504-1) 9.3 mg/dL PROTEIN, TOTAL (test code = 2885-2) 6.6 g/dL ALBUMIN (test code = 1751-7) 4.1 g/dL GLOBULIN (test code = 30317-2) 2.5 g/dL(calc) ALBUMIN/GLOBULIN RATIO (test code = 1759-0) 1.6 (calc) BILIRUBIN, TOTAL (test code = 1975-2) 0.3 mg/dL ALKALINE PHOSPHATASE (test code = 6768-6) 119 U/L AST (test code = 1920-8) 28 U/L ALT (test code = 1742-6) 21 U/L Jonatan [id number] 00:00:00* Test Item Value Reference Range Interpretation Comme [facility] TSH (test code = 3016-3) 3.07 mIU/L [id number] 00:00:00* Test Item Value Reference Range Interpretation Comme [facility] TSH (test code = 3016-3) 3.07 mIU/L Jonatan EasonLIPID [id number] 00:00:00* Test Item Value Reference Range Interpretation Comme nts CHOLESTEROL, TOTAL (test cod e = 2093-3) 224 mg/dL HDL CHOLESTEROL (test code = 2085-9) 53 mg/dL TRIGLYCERIDES (test code = 2571-8) 322 mg/dL LDL-CHOLESTEROL (test code = 00136-9) 125 mg/dL(calc) CHOL/HDLC RATIO (test code = 9830-1) 4.2 (calc) NON HDL CHOLESTEROL (test code = 99307-5) 171 mg/dL(calc) LIPID [id number] 00:00:00* Test Item Value Reference Range Interpretation Comme nts CHOLESTEROL, TOTAL (test cod e = 2093-3) 224 mg/dL HDL CHOLESTEROL (test code = 2085-9) 53 mg/dL TRIGLYCERIDES (test code = 2571-8) 322 mg/dL LDL-CHOLESTEROL (test code = 26471-3) 125 mg/dL(calc) CHOL/HDLC RATIO (test code = 9830-1) 4.2 (calc) NON HDL CHOLESTEROL (test code = 30882-1) 171 mg/dL(calc) Jonatan EasonCOMPREHENSIVE METABOLIC [id number] 00:00:00* Test Item Value Reference Range Interpretation Comme nts GLUCOSE (test code = 2345-7) 94 mg/dL UREA NITROGEN (BUN) (test code = 3094-0) 14 mg/dL CREATININE (test code = 2160-0) 0.84 mg/dL eGFR NON-AFR. ANGOLAN (test code = 51162-6) 77 mL/min/1.73m2 eGFR (test code = 41923-8) 89 mL/min/1.73m2 BUN/CREATININE RATIO (test code = 3097-3) NOT APPLICABLE (calc) SODIUM (test code = 2951-2) 140 mmol/L POTASSIUM (test code = 2823-3) 4.1 mmol/L CHLORIDE (test code = 2075-0) 105 mmol/L CARBON DIOXIDE (test code = 2027-9) 25 mmol/L CALCIUM (test code = 46945-6) 9.3 mg/dL PROTEIN, TOTAL (test code = 2885-2) 6.6 g/dL ALBUMIN (test code = 1751-7) 4.1 g/dL GLOBULIN (test code = 57897-5) 2.5 g/dL(calc) ALBUMIN/GLOBULIN RATIO (test code = 1759-0) 1.6 (calc) BILIRUBIN, TOTAL (test code = 1975-2) 0.3 mg/dL ALKALINE PHOSPHATASE (test code = 6768-6) 119 U/L AST (test code = 1920-8) 28 U/L ALT (test code = 1742-6) 21 U/L LIPID [id number] 00:00:00* Test Item Value Reference Range Interpretation Comme nts CHOLESTEROL (test code = 2210) 232 MG/DL TRIGLYCERIDES (test code = 2232) 185 MG/DL HDL CHOLESTEROL (test code = 2220) 58 MG/DL CALC LDL CHOL (test code = 2237) 137 MG/DL RISK RATIO LDL/HDL (test cod e = 2238) 2.36 RATIO LIPID [id number] 00:00:00* Test Item Value Reference Range Interpretation Comme nts CHOLESTEROL (test code = 2210) 232 MG/DL TRIGLYCERIDES (test code = 2232) 185 MG/DL HDL CHOLESTEROL (test code = 2220) 58 MG/DL CALC LDL CHOL (test code = 2237) 137 MG/DL RISK RATIO LDL/HDL (test cod e = 2238) 2.36 RATIO Jonatan F AustinCOMPREHENSIVE METABOLIC [id number] 00:00:00* Test Item Value Reference Range Interpretation Comme nts GLUCOSE (test code = 2217) 114 MG/DL BUN (test code = 2208) 24 MG/DL CREATININE (test code = 2214) 0.83 MG/DL eGFR AMER. (test cod e = 39044) 91 ML/MIN/1.73 eGFR NON- AMER. (test code = 02823) 78 ML/MIN/1.73 CALC BUN/CREAT (test code = [...] code = 2821) 3.750 UIU/ML COMPREHENSIVE METABOLIC [id number] 00:00:00* Test Item Value Reference Range Interpretation Comme nts GLUCOSE (test code = 2217) 114 MG/DL BUN (test code = 2208) 24 MG/DL CREATININE (test code = 2214) 0.83 MG/DL eGFR AMER. (test cod e = 58263) 91 ML/MIN/1.73 eGFR NON- AMER. (test code = 27726) 78 ML/MIN/1.73 CALC BUN/CREAT (test code = [...] (test code = 2219) 21 U/L [facility] [id number] 00:00:00* Test Item Value Reference Range Interpretation [...] COUNT (test code = 1015) 217 K/UL THYROID II PROFILE (T3U, T4, T7, TSH)2016-11-02 00:00:00* Test Item Value Reference Range Interpretation Comme nts T3 UPTAKE (test code = 2817) 28.1 % T4 (THYROXINE) (test code = 2819) 8.3 UG/DL CALCULATED T7 (FTI) (test co de = 2820) 2.33 TSH (test code = 2821) 3.750 UIU/ML Jonatan EasonCBC W/AUTO [id number] 00:00:00* Test Item Value Reference Range Interpretation [...] (test code = 1015) 217 K/UL Jonatan Barber LandyHEMOGLOBIN [id number] 00:00:00* Test Item Value Reference Range Interpretation Comme nts HEMOGLOBIN A1c (test code = 90600) 5.3 % LIPID [id number] 00:00:00* Test Item Value Reference Range Interpretation Comme nts CHOLESTEROL (test code = 2210) 232 MG/DL TRIGLYCERIDES (test code = 2232) 185 MG/DL HDL CHOLESTEROL (test code = 2220) 58 MG/DL CALC LDL CHOL (test code = 2237) 137 MG/DL RISK RATIO LDL/HDL (test cod e = 2238) 2.36 RATIO HEMOGLOBIN [id number] 00:00:00* Test Item Value Reference Range Interpretation Comme nts HEMOGLOBIN A1c (test code = 50438) 5.3 % Jonatan EasonCOMPREHENSIVE METABOLIC [id number] 00:00:00* Test Item Value Reference Range Interpretation Comme nts GLUCOSE (test code = 2217) 114 MG/DL BUN (test code = 2208) 24 MG/DL CREATININE (test code = 2214) 0.83 MG/DL eGFR AMER. (test cod e = 59918) 91 ML/MIN/1.73 eGFR NON- AMER. (test code = 62607) 78 ML/MIN/1.73 CALC BUN/CREAT (test code = [...] code = 2821) 3.750 UIU/ML CBC W/AUTO [id number] 00:00:00* Test Item Value Reference Range Interpretation [...] COUNT (test code = 1015) 217 K/UL LIPID [id number] 00:00:00* Test Item Value Reference Range Interpretation Comme nts CHOLESTEROL (test code = 2210) 232 MG/DL TRIGLYCERIDES (test code = 2232) 185 MG/DL HDL CHOLESTEROL (test code = 2220) 58 MG/DL CALC LDL CHOL (test code = 2237) 137 MG/DL RISK RATIO LDL/HDL (test cod e = 2238) 2.36 RATIO Jonatan EasonCOMPREHENSIVE METABOLIC [id number] 00:00:00* Test Item Value Reference Range Interpretation Comme nts GLUCOSE (test code = 2217) 114 MG/DL BUN (test code = 2208) 24 MG/DL CREATININE (test code = 2214) 0.83 MG/DL eGFR AMER. (test cod e = 84607) 91 ML/MIN/1.73 eGFR NON- AMER. (test code = 58383) 78 ML/MIN/1.73 CALC BUN/CREAT (test code = [...] (test code = 2821) 3.750 UIU/ML Jonatan EasonHEMOGLOBIN [id number] 00:00:00* Test Item Value Reference Range Interpretation Comme nts HEMOGLOBIN A1c (test code = 63667) 5.3 % LIPID [id number] 00:00:00* Test Item Value Reference Range Interpretation Comme nts CHOLESTEROL (test code = 2210) 232 MG/DL TRIGLYCERIDES (test code = 2232) 185 MG/DL HDL CHOLESTEROL (test code = 2220) 58 MG/DL CALC LDL CHOL (test code = 2237) 137 MG/DL RISK RATIO LDL/HDL (test cod e = 2238) 2.36 RATIO COMPREHENSIVE METABOLIC [id number] 00:00:00* Test Item Value Reference Range Interpretation Comme nts GLUCOSE (test code = 2217) 114 MG/DL BUN (test code = 2208) 24 MG/DL CREATININE (test code = 2214) 0.83 MG/DL eGFR AMER. (test cod e = 77215) 91 ML/MIN/1.73 eGFR NON- AMER. (test code = 27110) 78 ML/MIN/1.73 CALC BUN/CREAT (test code = [...] ALT (test code = 2219) 21 U/L CBC W/AUTO [id number] 00:00:00* Test Item Value Reference Range Interpretation [...] (test code = 1015) 217 K/UL Jonatan Barber AustinTHYROID II PROFILE (T3U, T4, T7, TSH)2016-11-02 00:00:00* Test Item Value Reference Range Interpretation Comme nts T3 UPTAKE (test code = 2817) 28.1 % T4 (THYROXINE) (test code = 2819) 8.3 UG/DL CALCULATED T7 (FTI) (test co de = 2820) 2.33 TSH (test code = 2821) 3.750 UIU/ML CBC W/AUTO [id number] 00:00:00* Test Item Value Reference Range Interpretation [...] (test code = 1015) 217 K/UL HEMOGLOBIN [id number] 00:00:00* Test Item Value Reference Range Interpretation Comme nts HEMOGLOBIN A1c (test code = 54359) 5.3 % Jonatan Barber LandyCBC W/AUTO [id number] 00:00:00* Test Item Value Reference Range Interpretation [...] COUNT (test code = 1015) 217 K/UL LIPID [id number] 00:00:00* Test Item Value Reference Range Interpretation Comme nts CHOLESTEROL (test code = 2210) 232 MG/DL TRIGLYCERIDES (test code = 2232) 185 MG/DL HDL CHOLESTEROL (test code = 2220) 58 MG/DL CALC LDL CHOL (test code = 2237) 137 MG/DL RISK RATIO LDL/HDL (test cod e = 2238) 2.36 RATIO Jonatan Barber LandyCOMPREHENSIVE METABOLIC [id number] 00:00:00* Test Item Value Reference Range Interpretation Comme nts GLUCOSE (test code = 2217) 114 MG/DL BUN (test code = 2208) 24 MG/DL CREATININE (test code = 2214) 0.83 MG/DL eGFR AMER. (test cod e = 15129) 91 ML/MIN/1.73 eGFR NON- AMER. (test code = 42614) 78 ML/MIN/1.73 CALC BUN/CREAT (test code = [...] Test Item Value Reference Range Interpretation Comme [facility] T3 UPTAKE (test code = 2817) 28.1 % T4 (THYROXINE) (test code = 2819) 8.3 UG/DL CALCULATED T7 (FTI) (test co de = 2820) 2.33 TSH (test code = 2821) 3.750 UIU/ML Jonatan EasonHEMOGLOBIN [id number] 00:00:00* Test Item Value Reference Range Interpretation Comme [facility] HEMOGLOBIN A1c (test code = 16032) 5.3 % CBC W/AUTO [id number] 00:00:00* Test Item Value Reference Range Interpretation [...] (test code = 1015) 217 K/UL Jonatan Barber AustinLIPID [id number] 00:00:00* Test Item Value Reference Range Interpretation Comme nts CHOLESTEROL (test code = 2210) 232 MG/DL TRIGLYCERIDES (test code = 2232) 185 MG/DL HDL CHOLESTEROL (test code = 2220) 58 MG/DL CALC LDL CHOL (test code = 2237) 137 MG/DL RISK RATIO LDL/HDL (test cod e = 2238) 2.36 RATIO COMPREHENSIVE METABOLIC [id number] 00:00:00* Test Item Value Reference Range Interpretation Comme nts GLUCOSE (test code = 2217) 114 MG/DL BUN (test code = 2208) 24 MG/DL CREATININE (test code = 2214) 0.83 MG/DL eGFR AMER. (test cod e = 88442) 91 ML/MIN/1.73 eGFR NON- AMER. (test code = 31588) 78 ML/MIN/1.73 CALC BUN/CREAT (test code = [...] Comme nts T3 UPTAKE (test code = 281) 28.1 % T4 (THYROXINE) (test code = 2819) 8.3 UG/DL CALCULATED T7 (FTI) (test co de = 2820) 2.33 TSH (test code = 2821) 3.750 UIU/ML HEMOGLOBIN [id number] 00:00:00* Test Item Value Reference Range Interpretation Comme nts HEMOGLOBIN A1c (test code = 84120) 5.3 % Jonatan EasonCBC W/AUTO [id number] 00:00:00* Test Item Value Reference Range Interpretation [...] COUNT (test code = 1015) 217 K/UL LIPID [id number] 00:00:00* Test Item Value Reference Range Interpretation Comme nts CHOLESTEROL (test code = 2210) 232 MG/DL TRIGLYCERIDES (test code = 2232) 185 MG/DL HDL CHOLESTEROL (test code = 2220) 58 MG/DL CALC LDL CHOL (test code = 2237) 137 MG/DL RISK RATIO LDL/HDL (test cod e = 2238) 2.36 RATIO Jonatan EasonCOMPREHENSIVE METABOLIC [id number] 00:00:00* Test Item Value Reference Range Interpretation Comme nts GLUCOSE (test code = 2217) 114 MG/DL BUN (test code = 2208) 24 MG/DL CREATININE (test code = 2214) 0.83 MG/DL eGFR AMER. (test cod e = 76956) 91 ML/MIN/1.73 eGFR NON- AMER. (test code = 06822) 78 ML/MIN/1.73 CALC BUN/CREAT (test code = [...] code = 2219) 21 U/L Jonatan Barber LandyTHYROID II PROFILE (T3U, T4, T7, TSH)2016-11-02 00:00:00* Test Item Value Reference Range Interpretation Comme [facility] T3 UPTAKE (test code = 2817) 28.1 % T4 (THYROXINE) (test code = 2819) 8.3 UG/DL CALCULATED T7 (FTI) (test co de = 2820) 2.33 TSH (test code = 2821) 3.750 UIU/ML Jonatan Barber LandyHEMOGLOBIN [id number] 00:00:00* Test Item Value Reference Range Interpretation Comme [facility] HEMOGLOBIN A1c (test code = 74620) 5.3 % CBC W/AUTO [id number] 00:00:00* Test Item Value Reference Range Interpretation Comme [facility] WBC (test code = 1001) 6.6 [...] code = 1015) 217 K/UL Jonatan EasonHEMOGLOBIN [id number] 00:00:00* Test Item Value Reference Range Interpretation Comme nts HEMOGLOBIN A1c (test code = 93814) 5.3 % CBC W/AUTO [id number] 00:00:00* Test Item Value Reference Range Interpretation [...] (test code = 1015) 217 K/UL Jonatan Barber AustinCBC W/AUTO [id number] 00:00:00* Test Item Value Reference Range Interpretation [...] (test code = 1015) 217 K/UL Jonatan Barber AustinLIPID [id number] 00:00:00* Test Item Value Reference Range Interpretation Comme nts CHOLESTEROL (test code = 2210) 232 MG/DL TRIGLYCERIDES (test code = 2232) 185 MG/DL HDL CHOLESTEROL (test code = 2220) 58 MG/DL CALC LDL CHOL (test code = 2237) 137 MG/DL RISK RATIO LDL/HDL (test cod e = 2238) 2.36 RATIO COMPREHENSIVE METABOLIC [id number] 00:00:00* Test Item Value Reference Range Interpretation Comme nts GLUCOSE (test code = 2217) 114 MG/DL BUN (test code = 2208) 24 MG/DL CREATININE (test code = 2214) 0.83 MG/DL eGFR AMER. (test cod e = 02884) 91 ML/MIN/1.73 eGFR NON- AMER. (test code = 99463) 78 ML/MIN/1.73 CALC BUN/CREAT (test code = [...] TSH (test code = 2821) 3.750 UIU/ML HEMOGLOBIN [id number] 00:00:00* Test Item Value Reference Range Interpretation Comme nts HEMOGLOBIN A1c (test code = 28648) 5.3 % Jonatan EasonLIPID [id number] 00:00:00* Test Item Value Reference Range Interpretation Comme nts CHOLESTEROL (test code = 2210) 232 MG/DL TRIGLYCERIDES (test code = 2232) 185 MG/DL HDL CHOLESTEROL (test code = 2220) 58 MG/DL CALC LDL CHOL (test code = 2237) 137 MG/DL RISK RATIO LDL/HDL (test cod e = 2238) 2.36 RATIO Jonatan EasonCOMPREHENSIVE METABOLIC [id number] 00:00:00* Test Item Value Reference Range Interpretation Comme nts GLUCOSE (test code = 2217) 114 MG/DL BUN (test code = 2208) 24 MG/DL CREATININE (test code = 2214) 0.83 MG/DL eGFR AMER. (test cod e = 33266) 91 ML/MIN/1.73 eGFR NON- AMER. (test code = 01774) 78 ML/MIN/1.73 CALC BUN/CREAT (test code = [...] (test code = 2821) 3.750 UIU/ML Jonatan EasonHEMOGLOBIN [id number] 00:00:00* Test Item Value Reference Range Interpretation Comme alber HEMOGLOBIN A1c (test code = 55972) 5.3 % Jonatan EasonLIPID [id number] 00:00:00* Test Item Value Reference Range Interpretation Comme nts CHOLESTEROL (test code = 2210) 232 MG/DL TRIGLYCERIDES (test code = 2232) 185 MG/DL HDL CHOLESTEROL (test code = 2220) 58 MG/DL CALC LDL CHOL (test code = 2237) 137 MG/DL RISK RATIO LDL/HDL (test cod e = 2238) 2.36 RATIO Jonatan EasonCOMPREHENSIVE METABOLIC [id number] 00:00:00* Test Item Value Reference Range Interpretation Comme nts GLUCOSE (test code = 2217) 114 MG/DL BUN (test code = 2208) 24 MG/DL CREATININE (test code = 2214) 0.83 MG/DL eGFR AMER. (test cod e = 17311) 91 ML/MIN/1.73 eGFR NON- AMER. (test code = 66827) 78 ML/MIN/1.73 CALC BUN/CREAT (test code = [...] = 2821) 3.750 UIU/ML Jonatan EasonCBC W/AUTO [id number] 00:00:00* Test Item Value Reference Range Interpretation [...] code = 1015) 217 K/UL Jonatan EasonHEMOGLOBIN [id number] 00:00:00* Test Item Value Reference Range Interpretation Comme nts HEMOGLOBIN A1c (test code = 71983) 5.3 % Jonatan EasonLIPID [id number] 00:00:00* Test Item Value Reference Range Interpretation Comme nts CHOLESTEROL (test code = 2210) 232 MG/DL TRIGLYCERIDES (test code = 2232) 185 MG/DL HDL CHOLESTEROL (test code = 2220) 58 MG/DL CALC LDL CHOL (test code = 2237) 137 MG/DL RISK RATIO LDL/HDL (test cod e = 2238) 2.36 RATIO Jonatan EasonCOMPREHENSIVE METABOLIC [id number] 00:00:00* Test Item Value Reference Range Interpretation Comme nts GLUCOSE (test code = 2217) 114 MG/DL BUN (test code = 2208) 24 MG/DL CREATININE (test code = 2214) 0.83 MG/DL eGFR AMER. (test cod e = 72667) 91 ML/MIN/1.73 eGFR NON- AMER. (test code = 22310) 78 ML/MIN/1.73 CALC BUN/CREAT (test code = [...] (test code = 2821) 3.750 UIU/ML Jonatan EasonHEMOGLOBIN [id number] 00:00:00* Test Item Value Reference Range Interpretation Comme nts HEMOGLOBIN A1c (test code = 70478) 5.3 % Jonatan EasonLIPID [id number] 00:00:00* Test Item Value Reference Range Interpretation Comme nts CHOLESTEROL (test code = 2210) 232 MG/DL TRIGLYCERIDES (test code = 2232) 185 MG/DL HDL CHOLESTEROL (test code = 2220) 58 MG/DL CALC LDL CHOL (test code = 2237) 137 MG/DL RISK RATIO LDL/HDL (test cod e = 2238) 2.36 RATIO Jonatan Barber LandyCOMPREHENSIVE METABOLIC [id number] 00:00:00* Test Item Value Reference Range Interpretation Comme nts GLUCOSE (test code = 2217) 114 MG/DL BUN (test code = 2208) 24 MG/DL CREATININE (test code = 2214) 0.83 MG/DL eGFR AMER. (test cod e = 89889) 91 ML/MIN/1.73 eGFR NON- AMER. (test code = 38720) 78 ML/MIN/1.73 CALC BUN/CREAT (test code = [...] = 2821) 3.750 UIU/ML Jonatan EasonCBC W/AUTO [id number] 00:00:00* Test Item Value Reference Range Interpretation [...] code = 1015) 217 K/UL Jonatan EasonHEMOGLOBIN [id number] 00:00:00* Test Item Value Reference Range Interpretation Comme nts HEMOGLOBIN A1c (test code = 25831) 5.3 % Jonatan EasonLIPID [id number] 00:00:00* Test Item Value Reference Range Interpretation Comme nts CHOLESTEROL (test code = 2210) 232 MG/DL TRIGLYCERIDES (test code = 2232) 185 MG/DL HDL CHOLESTEROL (test code = 2220) 58 MG/DL CALC LDL CHOL (test code = 2237) 137 MG/DL RISK RATIO LDL/HDL (test cod e = 2238) 2.36 RATIO Jonatan EasonCOMPREHENSIVE METABOLIC [id number] 00:00:00* Test Item Value Reference Range Interpretation Comme nts GLUCOSE (test code = 2217) 114 MG/DL BUN (test code = 2208) 24 MG/DL CREATININE (test code = 2214) 0.83 MG/DL eGFR AMER. (test cod e = 77413) 91 ML/MIN/1.73 eGFR NON- AMER. (test code = 28407) 78 ML/MIN/1.73 CALC BUN/CREAT (test code = [...] = 2821) 3.750 UIU/ML Jonatan EasonCBC W/AUTO [id number] 00:00:00* Test Item Value Reference Range Interpretation [...] code = 1015) 217 K/UL Jonatan EasonHEMOGLOBIN [id number] 00:00:00* Test Item Value Reference Range Interpretation Comme nts HEMOGLOBIN A1c (test code = 78875) 5.3 % Jonatan EasonLIPID [id number] 00:00:00* Test Item Value Reference Range Interpretation Comme nts CHOLESTEROL (test code = 2210) 232 MG/DL TRIGLYCERIDES (test code = 2232) 185 MG/DL HDL CHOLESTEROL (test code = 2220) 58 MG/DL CALC LDL CHOL (test code = 2237) 137 MG/DL RISK RATIO LDL/HDL (test cod e = 2238) 2.36 RATIO CBC W/AUTO [id number] 00:00:00* Test Item Value Reference Range Interpretation [...] COUNT (test code = 1015) 217 K/UL LIPID [id number] 00:00:00* Test Item Value Reference Range Interpretation Comme nts CHOLESTEROL (test code = 2210) 232 MG/DL TRIGLYCERIDES (test code = 2232) 185 MG/DL HDL CHOLESTEROL (test code = 2220) 58 MG/DL CALC LDL CHOL (test code = 2237) 137 MG/DL RISK RATIO LDL/HDL (test cod e = 2238) 2.36 RATIO Jonatan F AustinCOMPREHENSIVE METABOLIC [id number] 00:00:00* Test Item Value Reference Range Interpretation Comme nts GLUCOSE (test code = 2217) 114 MG/DL BUN (test code = 2208) 24 MG/DL CREATININE (test code = 2214) 0.83 MG/DL eGFR AMER. (test cod e = 06921) 91 ML/MIN/1.73 eGFR NON- AMER. (test code = 62895) 78 ML/MIN/1.73 CALC BUN/CREAT (test code = [...] = 2821) 3.750 UIU/ML Jonatan EasonCBC W/AUTO [id number] 00:00:00* Test Item Value Reference Range Interpretation [...] code = 1015) 217 K/UL Jonatan EasonHEMOGLOBIN [id number] 00:00:00* Test Item Value Reference Range Interpretation Comme [facility] HEMOGLOBIN A1c (test code = 37321) 5.3 % HEMOGLOBIN [id number] 00:00:00* Test Item Value Reference Range Interpretation Comme nts HEMOGLOBIN A1c (test code = 50524) 5.3 % Jonatan Barber LandyCOMPREHENSIVE METABOLIC [id number] 00:00:00* Test Item Value Reference Range Interpretation Comme nts GLUCOSE (test code = 2217) 114 MG/DL BUN (test code = 2208) 24 MG/DL CREATININE (test code = 2214) 0.83 MG/DL eGFR AMER. (test cod e = 80134) 91 ML/MIN/1.73 eGFR NON- AMER. (test code = 41774) 78 ML/MIN/1.73 CALC BUN/CREAT (test code = [...] (test code = 2219) 21 U/L LIPID [id number] 00:00:00* Test Item Value Reference Range Interpretation Comme nts CHOLESTEROL (test code = 2210) 232 MG/DL TRIGLYCERIDES (test code = 2232) 185 MG/DL HDL CHOLESTEROL (test code = 2220) 58 MG/DL CALC LDL CHOL (test code = 2237) 137 MG/DL RISK RATIO LDL/HDL (test cod e = 2238) 2.36 RATIO COMPREHENSIVE METABOLIC [id number] 00:00:00* Test Item Value Reference Range Interpretation Comme nts GLUCOSE (test code = 2217) 114 MG/DL BUN (test code = 2208) 24 MG/DL CREATININE (test code = 2214) 0.83 MG/DL eGFR AMER. (test cod e = 75096) 91 ML/MIN/1.73 eGFR NON- AMER. (test code = 64849) 78 ML/MIN/1.73 CALC BUN/CREAT (test code = [...] TSH (test code = 2821) 3.750 UIU/ML LIPID [id number] 00:00:00* Test Item Value Reference Range Interpretation Comme nts CHOLESTEROL (test code = 2210) 232 MG/DL TRIGLYCERIDES (test code = 2232) 185 MG/DL HDL CHOLESTEROL (test code = 2220) 58 MG/DL CALC LDL CHOL (test code = 2237) 137 MG/DL RISK RATIO LDL/HDL (test cod e = 2238) 2.36 RATIO Jonatan F AustinTHYROID II PROFILE (T3U, T4, T7, TSH)2016-11-02 00:00:00* Test Item Value Reference Range Interpretation Comme nts T3 UPTAKE (test code = 2817) 28.1 % T4 (THYROXINE) (test code = 2819) 8.3 UG/DL CALCULATED T7 (FTI) (test co de = 2820) 2.33 TSH (test code = 2821) 3.750 UIU/ML COMPREHENSIVE METABOLIC [id number] 00:00:00* Test Item Value Reference Range Interpretation Comme nts GLUCOSE (test code = 2217) 114 MG/DL BUN (test code = 2208) 24 MG/DL CREATININE (test code = 2214) 0.83 MG/DL eGFR AMER. (test cod e = 42775) 91 ML/MIN/1.73 eGFR NON- AMER. (test code = 86893) 78 ML/MIN/1.73 CALC BUN/CREAT (test code = [...] = 2821) 3.750 UIU/ML Jonatan EasonCBC W/AUTO [id number] 00:00:00* Test Item Value Reference Range Interpretation [...] code = 1015) 217 K/UL CBC W/AUTO [id number] 00:00:00* Test Item Value Reference Range Interpretation [...] code = 1015) 217 K/UL Jonatan EasonHEMOGLOBIN [id number] 00:00:00* Test Item Value Reference Range Interpretation Comme nts HEMOGLOBIN A1c (test code = 75273) 5.3 % HEMOGLOBIN [id number] 00:00:00* Test Item Value Reference Range Interpretation Comme nts HEMOGLOBIN A1c (test code = 95546) 5.3 % Jonatan Eason Consult Notes Date/Time Note Provider Source 2024-04-26 16:43:53 Associated Order(s): CONSULT UROLOGY UROLOGY CONSULTATION NOTE Requesting Physician: No ref. 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 Was previously seen and managed in earlier this year for hematuria requiring CBI and OR for cystoscopy and fulguration twice. Reports she is lily to empty well, wine colored urine. No clots reported. HDS Hgb 4.3 Vitals: 04/26/24 1545 04/26/24 1600 04/26/24 1615 04/26/24 1630 BP: 127/63 117/40 128/59 Pulse: 60 56 68 Resp: 16 14 16 Temp: 36.6 ?C (97.9 ?F) TempSrc: SpO2: 99% 98% 96% Weight: Height: Review of Systems: Constitutional: negative Eyes: negative Ears, nose, mouth, throat: negative Cardiovascular: negative Respiratory: negative Gastrointestinal: negative Genitourinary: (+) per HPI Musculoskeletal: negative Integumentary: negative Neurological: negative Psychiatric: negative Endocrine: negative Hematologic/Lymphatic: negative Allergic/Immunologic: negative, allergies listed above Physical Exam: Blood pressure 128/59, pulse 68, temperature 36.6 ?C (97.9 ?F), resp. rate 16, height 1.6 m (5' 3"), weight 80.3 kg (177 lb), last menstrual period 09/11/2000, SpO2 96%. Constitutional: no acute distress Eyes: normal external eye, conjunctiva and sclera normal Ears, nose, mouth, throat: normocephalic, moist mucous membranes Cardiovascular: regular rate and rhythm, peripheral pulses 2+ in bilateral upper extremities Respiratory: respirations unlabored on room air Gastrointestinal: soft, non-distended, non tender Genitourinary: bladder nonpalpable Musculoskeletal: no clubbing, cyanosis or edema Skin: no rashes Neurologic: alert and oriented x3 Psychiatric: appropriate mood and affect Hematologic: no bruising Labs: CBC BMP PT/INR WBC (10*3/?L) Date Value 04/26/2024 3.07 (L) NA (mmol/L) Date Value 04/26/2024 132 (L) No results found for: "PT" RBC (10*6/?L) Date Value 04/26/2024 1.85 (L) K (mmol/L) Date Value 04/26/2024 3.7 INR (no units) Date Value 04/26/2024 1.3 PLT (10*3/?L) Date Value 04/26/2024 76 (L) CALCIUM (mg/dL) Date Value 04/26/2024 7.1 (L) HGB (g/dL) Date Value 04/26/2024 5.4 (L) CL (mmol/L) Date Value 04/26/2024 110 (H) aPTT HCT (%) Date Value 04/26/2024 16.3 (L) BUN (mg/dL) Date Value 04/26/2024 11 APTT Patient (Seconds) Date Value 04/26/2024 31 CREATININE (mg/dL) Date Value 04/26/2024 0.64 Assessment: Rowan Bonilla is a 63 year old female with radiation cystitis requiring multiple OR cysto clot evac and fulgurations presents with severe anemia and hematuria. Currently reports voiding well with no discomfort and no clots Recommendations: Please obtain PVR to ensure emptying well Obtain RBUS to evaluate for clot within bladder if negative okay to cont to monitor hematuria Encourage good po intake Please transfuse to maintain hgb >7 Please send urine culture Discussed with Dr. Bucio . Lorenza Burnham PGY3 Urology [facility] APPLICATION SPECIALIST Associated attestation - Deandre Bucio MD - 04/28/2024 8:02 AM CLIN APPLICATION SPECIALIST Agree with note and plan as outlined by Dr. Burnham. Deandre Bucio MD 04/28/2024 8:02 AM [facility] 2024-02-04 11:52:43 Associated Order(s): CONSULT PS PASTORAL CARE The senior geotechnical engineer discussed the spiritual support that is available and how to access that support. Patient requests a follow up visit at a later time. [facility] Pastoral volunteer or staff senior geotechnical engineer will attempt to re-visit the patient and remains available to provide pastoral/spiritual care in the future if needed. Rev.Princess Mackenzie Collision Repair Technician I [facility] Department of Pastoral Care Pager: [phone] Princess Mazariegos [facility] 2024-02-03 11:53:20 Associated Order(s): CONSULT UROLOGY UROLOGY [...] cystoscopy and fulguration [address] [facility], hepatic portal vein thrombus s/p TIPS + [...] mg Oral DAILY 1 mg at 02/03/24 09 lactulose (CEPHULAC) 10 gram/15 mL (15 mL) oral solution 30 mL 30 mL Oral DAILY 30 mL at 02/03/24 09 levothyroxine (SYNTHROID) tablet 100 mcg 100 mcg Oral QAM-0600 100 mcg at 02/03/24 0544 thiamine mononitrate (VITAMIN B-1 (MONONITRATE)) tablet 100 mg 100 mg Oral TID 100 mg at 02/03/24 0906 Histories: Past Medical History: Diagnosis Date Cancer 2000 Cervical with total hysterectomy Coagulation defect 01/01/2024 Essential (primary) hypertension 12/09/2021 Hypothyroid 09/17/2014 Past Surgical History: Procedure Laterality Date APPENDECTOMY 1977 COLONOSCOPY N/A 04/21/2022 Surgeon: Radha Pena MD; Location: [facility] OR LOCATION COLONOSCOPY N/A 01/23/2023 Surgeon: Leroy Martel MD; Location: [facility] OR LOCATION CYSTOSCOPY WITH EVACUATION CLOTS (SHX) N/A 12/22/2023 Surgeon: Bertin Adame MD; Location: [facility] OR LOCATION DILATION AND CURETTAGE (SHX) ESOPHAGOGASTRODUODENOSCOPY Upper 12/27/2023 Surgeon: Mj Solitario MD; Location: ENDOSCOPY ([facility]) OR LOCATION HYSTERECTOMY [...] 10 cc of sterile water placed into marquez balloon. Aseptic technique was used to inject [...] difficulty however is passing large clots. 3-way marquez placed, manual irrigation performed and CBI started. [...] Urology Resident Pager: please page/call on-call using Video Recruit I personally examined the patient on 02/04/[address] Hatfield's resident note as written. I actively participated in the decision-making process. Please see the resident's note for additional details. Bertin Adame MD 02/04/2024 11:46 AM URO-UROLOGY STAFF [facility] 2023-12-24 15:43:16 VASCULAR AND INTERVENTIONAL RADIOLOGY CONSULT [...] N/A 04/21/2022 Surgeon: Radha Pena MD; Location: [facility] OR LOCATION COLONOSCOPY N/A 01/23/2023 Surgeon: Leroy Martel MD; Location: [facility] OR LOCATION CYSTOSCOPY WITH EVACUATION CLOTS (SHX) N/A 12/22/2023 Surgeon: Bertin Adame MD; Location: [facility] OR LOCATION DILATION AND CURETTAGE (SHX) [...] questions or concerns. RAD-VASCULAR & INTERVENTIONAL RADIOLOGY [facility] 2023-12-22 16:00:37 Associated Order(s): CONSULT GASTROENTEROLOGY Department [...] N/A 04/21/2022 Surgeon: Radha Pena MD; Location: [facility] OR LOCATION COLONOSCOPY N/A 01/23/2023 Surgeon: Leroy Martel MD; Location: [facility] OR LOCATION DILATION AND CURETTAGE (SHX) HYSTERECTOMY [...] 40 mg Oral QHS 40 mg at 12/21/232034 ondansetron (ZOFRAN (PF)) injection 4 mg 4 [...] Friends and Family: Not on file Attends [employer]: Not on file Active Member of [...] Previous Endoscopy: see chart ASSESSMENT and PLAN Rowan Bonilla is a 63 year old [...] Patient was seen and discussed with Dr. Solitario , please call with any questions. Stephanie Fong DO Gastroenterology & Hepatology PGY 6 Associated attestation - Mj Solitario MD - 12/23/2023 12:57 PM CDT I personally examined the patient on 12/22/[address] Fong's resident/fellow note as written. I actively participated in the decision-making process. Please see the resident/fellow's note for additional details. Mj Solitario MD [facility] Core Setter Gastroenterology IM-GASTROENTEROLOGY [facility] 2023-12-22 11:57:41 Associated Order(s): CONSULT SURGICAL CO-MANAGEMENT ([facility]) [facility] Division of General Medicine Surgical Co-Management [...] 10/18/2022 Added automatically from request for surgery [id number] Hematuria of unknown etiology 07/13/2022 Radiation proctitis 04/28/2022 Hematochezia 03/24/2022 Urinary tract infection, site not specified 09/17/2014 H/O: hysterectomy 09/17/2014 History of cervical cancer 09/17/2014 Obesity 09/17/2014 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Plate Caulker Utility Hypothyroid 09/17/2014 Tobacco use disorder 09/17/2014 Past Surgical History: Procedure Laterality Date APPENDECTOMY 1977 COLONOSCOPY N/A 04/21/2022 Surgeon: Radha Pena MD; Location: [facility] OR [facility] COLONOSCOPY N/A 01/23/2023 Surgeon: Leroy Martel MD; Location: [facility] OR LOCATION DILATION AND CURETTAGE (SHX) HYSTERECTOMY [...] Friends and Family: Not on file Attends [employer]: Not on file Active Member of [...] IV 12/21/232311 Right Antecubital Ultrasound Used 12/21/23 2312 Antecubital less than 1 Urethral Catheter Latex 22 fr 12/22/23 1002 -- less than 1 Intake/Output Summary (Last 24 hours) at 12/22/2023 1157 Last data filed at 12/22/2023 1036 Gross per 24 hour Intake 2405 ml Output 1000 ml Net 1405 ml Labs/Imaging - reviewed: Recent Labs 12/20/23 0912/21/23 0329 12/21/23 1704 12/22/23 0508 WBC 5.03 3.16* 4.44 3.23* HGB 6.3* 6.1* 7.9* 7.3* HCT 20.1* 19.1* 24.7* 22.7* PLT 103* 77* 84* 82* Recent Labs 12/20/23 0920 12/21/23 0329 12/22/23 0508 NA 138 137 138 K 3.1* 3.8 3.6 CL 106 109* 112* TCO2 21* BUN 13 10 9 CREAT 0.71 [...] Ordering referrals and/or communicating with other health lead caregiver (when not separately reported), Documenting clinical information in the electronic or other health record, Independently interpreting results (not separately reported) and/or communicating results to the patient/family/caregiver, Care coordination (not separately reported), and Procedure performed and time excluded from Total Time. Delmar Greer MD 12/22/23 11:57 AM T [facility] - Health History and Physical Notes Date/Time Note Provider Source 2024-04-26 06:51:54 Medicine Intensive Care History and Physical Date of Service: 04/26/2024 06:52 ICU day: 1 CHIEF COMPLAINT: Weakness History of Present Illness Rowan Bonilla is a 63 year old female with a PMH of cervical cancer s/p total hysterectomy/chemo/XRT (early ), chronic cystitis, hypothyroidism, HTN that presents with blood loss anemia. Pt reports she has had worsening weakness. Over the weekend, reported falls that she did not hit her head, had a feeling of weakness in her legs. Pt reports that she sees blood every time she urinates. Denies melena, hematemesis, and hematochezia. ED labs significant for Hgb 3.4, INR 1.3, PTT 15.2, PAST MEDICAL HISTORY Past Medical History: Diagnosis Date Cancer 2000 Cervical with total hysterectomy Coagulation defect 01/01/2024 Essential (primary) hypertension 12/09/2021 Hypothyroid 09/17/2014 PAST SURGICAL HISTORY Past Surgical History: Procedure Laterality Date APPENDECTOMY 1977 COLONOSCOPY N/A 04/21/2022 Surgeon: Radha Pena MD; Location: [facility] OR [facility] COLONOSCOPY N/A 01/23/2023 Surgeon: Leroy Martel MD; Location: [facility] OR LOCATION CYSTOSCOPY WITH EVACUATION CLOTS (SHX) N/A 12/22/2023 Surgeon: Bertin Adame MD; Location: [facility] OR LOCATION CYSTOSCOPY WITH EVACUATION CLOTS (SHX) N/A 02/04/2024 Surgeon: Bertin Adame MD; Location: [facility] DILATION AND CURETTAGE (SHX) ESOPHAGOGASTRODUODENOSCOPY Upper 12/27/2023 Surgeon: Mj Solitario MD; Location: [facility]OSCOPY ([facility]) OR LOCATION HYSTERECTOMY [...] Types: Cigarettes Quit date: 2009 Years since quittin.9 Passive exposure: Past Smokeless tobacco: Former Substance and Sexual Activity Alcohol use: Yes Comment: social use-once every other week, beer-daily Drug use: Not Currently Types: Marijuana Sexual activity: Not Currently Comment: no history of domestic/sexual violence Social History Narrative Patient denies any violence or domestic abuse. Social Determinants of Health Financial Resource Strain: Low Risk (02/04/2024) Overall Financial Resource Strain (CARDIA) Difficulty of Paying Living Expenses: Not hard at all Food Insecurity: No Food Insecurity (04/09/2024) NCSS - Food Insecurity Worried About Running Out of Food in the Last Year: No Ran Out of Food in the Last Year: No Transportation Needs: No Transportation Needs (04/09/2024) NCSS - Transportation Lack of Transportation: No Physical Activity: Inactive (02/04/2024) Exercise Vital Sign Days of Exercise per Week: 0 days Minutes of Exercise per Session: 0 min Social Connections: Unknown (02/04/2024) Social Connection and Isolation Panel [NHANES] Frequency of Communication with Friends and Family: More than three times a week Marital Status: Housing Stability: Not At Risk (04/09/2024) NCSS - Housing/Utilities Has Housing: Yes Worried About Losing Housing: No Unable to Get Utilities: No ALLERGIES No Known Allergies REVIEW OF SYSTEMS Review of Systems Constitutional: Positive for fatigue. Negative for fever. HENT: Negative. Respiratory: Positive for shortness of breath. Cardiovascular: Negative. Gastrointestinal: Negative. Negative for blood in stool. Genitourinary: Negative. Musculoskeletal: Positive for gait problem. Skin: Positive for color change. Neurological: Positive for light-headedness. PHYSICAL EXAMINATION Physical Exam Constitutional: Appearance: She is ill-appearing. She is not toxic-appearing. Eyes: General: Scleral icterus present. Cardiovascular: Rate and Rhythm: Normal rate and regular rhythm. Pulmonary: Effort: Pulmonary effort is normal. Breath sounds: Normal breath sounds. Abdominal: Palpations: Abdomen is soft. Skin: Coloration: Skin is jaundiced. Neurological: General: No focal deficit present. Mental Status: She is alert and oriented to person, place, and time. Labs (pertinent only)/Imaging: Lactic acid: 2.89, Time: 0258 No final results containing an impression from the past 2 days were found. Assessment/Plan: Rowan Bonilla is a 63 year old female admitted with severe blood loss anemia secondary to tract Radiation Cystitis vs Bladder cancer Neuro - no active problem Resp - no active problem Cardiovascular Severe blood loss anemia HTN HLD 1U pRBC transfused, post transfusion Hgb 4.3. Preparing to transfuse 2 units. - restart home medications as appropriate - 3u pRBC prepared FEN/GI Decompensated cirrhosis Positive for edema, ammonia 23. - restart lactulose ID - Flu A/B, Covid, RSV Negative Renal Hematuria chronic cystitis - consult Urology, plan for cystoscopy Endo Hypothyroidism - restart home medications as needed Other Oncology Hx: cervical cancer s/p total hysterectomy/chemo/XRT (early ) Dispo: MICU Prognosis: Guarded Code Status: Full COMPLICATIONS/SECONDARY DIAGNOSIS None Raza Shannon MD Department of Anesthesiology APPLICATION SPECIALIST Associated attestation - Alpesh Pacheco MD - 04/26/2024 8:59 AM CLIN APPLICATION SPECIALIST Attending History Supplement: I personally examined the patient on 04/26/2024 and agree with the 's note as written . I actively participated in the decision-making process. Please see the resident's note for additional details. Rowan Bonilla is a 63 year old female with h/o cervical ca and hematuria. Chr. blood loss anemia Labs reviewed. Transfuse to keep Hg >7.0. 1g iron dextran. Bladder irrigation. Urology input. Alpesh Pacheco MD, MPH Professor, Division of Pulmonary Critical Care and Sleep Medicine [phone] ANESTHESIOLOGY [facility] 2024-04-08 03:13:08 MEDICINE MEGADC ADMIT H&P Date of Service: 04/08/2024 CHIEF COMPLAINT: altered mental status Subjective History of Present Illness 63 yo female with pmh of HTN, hypothyroidism, cervical cancer s/p hysterectomy and cirrhosis who presents to the ED secondary to altered mental status that started "several days" ago. Family notes that she was sleeping most of the day and was confused intermittently. Patient notes that she has been having hematuria and increased urinary frequency since December. She denies dysuria. PAST MEDICAL HISTORY Past Medical History: Diagnosis Date Cancer 2000 Cervical with total hysterectomy Coagulation defect 01/01/2024 Essential (primary) hypertension 12/09/2021 Hypothyroid 09/17/2014 Past Surgical History: Procedure Laterality Date APPENDECTOMY 1977 COLONOSCOPY N/A 04/21/2022 Surgeon: Radha Pena MD; Location: [facility] OR [facility] COLONOSCOPY N/A 01/23/2023 Surgeon: Leroy Martel MD; Location: [facility] OR LOCATION CYSTOSCOPY WITH EVACUATION CLOTS (SHX) N/A 12/22/2023 Surgeon: Bertin Adame MD; Location: [facility] OR LOCATION CYSTOSCOPY WITH EVACUATION CLOTS (SHX) N/A 02/04/2024 Surgeon: Bertin Adame MD; Location: [facility] DIL[facility] CURETT[facility] (SHX) ESOPHAGOGASTRODUODENOSCOPY Upper 12/27/2023 Surgeon: Mj Solitario MD; Location: [facility] ([facility]) OR LOCATION HYSTERECTOMY [...] Prior to Encounter Medication Sig Dispense Refill atorvastatin 40 mg tablet Take 1 tablet by mouth at bedtime for 30 days. 30 tablet 0 ferrous sulfate (IRON, FERROUS SULFATE,) 325 mg (65 mg iron) tablet Take 1 tablet by mouth in the morning for 30 days. 30 tablet 0 foLIC acid 1 mg tablet Take 1 tablet by mouth in the morning for 30 days. 30 tablet 0 lactulose 10 gram/15 mL oral solution Take 30 mL by mouth in the morning and 30 mL at noon and 30 mL in the evening. Do all this for 30 days. 2700 mL 0 levothyroxine 125 mcg tablet Take 1 tablet by mouth every morning for 30 days. 30 tablet 0 lisinopriL 10 mg tablet Take 1 tablet by mouth in the morning for 30 days. 30 tablet 0 thiamine mononitrate 100 mg tablet Take 1 tablet by mouth in the morning and 1 tablet at noon and 1 tablet in the evening. Do all this for 30 days. 90 tablet 0 I attest that the foregoing medication list in the medical record is true, accurate and complete to the best of my knowledge. SOCIAL HISTORY Social History Socioeconomic History Marital status: Tobacco Use Smoking status: Former Current packs/day: 0.00 Types: Cigarettes Quit date: 2009 Years since quittin.9 Passive exposure: Past Smokeless tobacco: Never Substance and Sexual Activity Alcohol use: Yes Comment: social use-once every other week, beer-daily Drug use: Not Currently Types: Marijuana Sexual activity: Not Currently Comment: no history of domestic/sexual violence Social History Narrative Patient denies any violence or domestic abuse. Social Determinants of Health Financial Resource Strain: Low Risk (02/04/2024) Overall Financial Resource Strain (CARDIA) Difficulty of Paying Living Expenses: Not hard at all Food Insecurity: No Food Insecurity (03/11/2024) NCSS - Food Insecurity Worried About Running Out of Food in the Last Year: No Ran Out of Food in the Last Year: No Transportation Needs: No Transportation Needs (03/11/2024) NCSS - Transportation Lack of Transportation: No Physical Activity: Inactive (02/04/2024) Exercise Vital Sign Days of Exercise per Week: 0 days Minutes of Exercise per Session: 0 min Social Connections: Unknown (02/04/2024) Social Connection and Isolation Panel [NHANES] Frequency of Communication with Friends and Family: More than three times a week Marital Status: Housing Stability: Not At Risk (03/11/2024) NCSS - Housing/Utilities Has Housing: Yes Worried About Losing Housing: No Unable to Get Utilities: No REVIEW OF SYSTEMS Review of Systems Constitutional: Negative. HENT: Negative. Eyes: Negative. Respiratory: Negative. Breasts: Negative. Cardiovascular: Negative. Gastrointestinal: Negative. Genitourinary: Positive for frequency (increased) and hematuria. Negative for bladder incontinence, dysuria, urgency, flank pain, decreased urine volume, vaginal bleeding, vaginal discharge, enuresis, difficulty urinating, genital sores, vaginal pain, menstrual problem, pelvic pain, dyspareunia and nocturia. Musculoskeletal: Negative. Skin: Negative. Neurological: Negative. Psychiatric/Behavioral: Positive for confusion. Negative for agitation, behavioral problems, decreased concentration, dysphoric mood, hallucinations, self-injury, sleep disturbance and suicidal ideas. The patient is not nervous/anxious and is not hyperactive. Endocrine: Endocrine negative Objective PHYSICAL EXAMINATION Vitals: 04/08/24 0114 04/08/24 0200 04/08/24 0230 BP: 138/55 (!) 140/47 Pulse: 80 69 70 Resp: 16 21 16 Temp: 36.9 ?C (98.4 ?F) TempSrc: Oral SpO2: 100% 99% 100% Weight: 165 lb (74.8 kg) Height: 5' 2" (1.575 m) Physical Exam Vitals and nursing note reviewed. Constitutional: General: She is not in acute distress. Appearance: Normal appearance. She is not ill-appearing, toxic-appearing or diaphoretic. HENT: Head: Normocephalic and atraumatic. Right Ear: External ear normal. Left Ear: External ear normal. Nose: Nose normal. No congestion. Mouth/Throat: Mouth: Mucous membranes are moist. Pharynx: No oropharyngeal exudate or posterior oropharyngeal erythema. Eyes: General: No scleral icterus. Extraocular Movements: Extraocular movements intact. Conjunctiva/sclera: Conjunctivae normal. Pupils: Pupils are equal, round, and reactive to light. Cardiovascular: Rate and Rhythm: Normal rate and regular rhythm. Heart sounds: No murmur heard. No friction rub. No gallop. Pulmonary: Effort: Pulmonary effort is normal. No respiratory distress. Breath sounds: Normal breath sounds. No wheezing or rales. Chest: Chest wall: No tenderness. Abdominal: General: Abdomen is flat. Bowel sounds are normal. There is no distension. Palpations: Abdomen is soft. Tenderness: There is no abdominal tenderness. There is no guarding. Comments: +asterixis Musculoskeletal: General: Normal range of motion. Cervical back: Normal range of motion and neck supple. Right lower leg: No edema. Left lower leg: No edema. Neurological: Mental Status: She is alert. Psychiatric: Mood and Affect: Mood normal. Behavior: Behavior normal. Thought Content: Thought content normal. Judgment: Judgment normal. LABS/IMAGING - reviewed Assessment & Plan Rowan Bonilla is a 63 year old female with PMH as listed above, admitted to the hospital with: Hepatic encephalopathy: -- Will continue scheduled lactulose 2. Acute cystitis: -- Will continue with ceftriaxone HTN: -- Will continue with lisinopril Hypothyroidism: -- Will continue with levothyroxine Prophylaxis: DVT- Contraindicated: Cranial/GI Bleeding or other Hemorrhage present Code Status: Full Code Estimated LOS: This inpatient admission will likely require greater than or equal to 2 Midnights. Management is not feasible as an outpatient and there is concern for adverse outcomes if not managed in an inpatient setting. Advance care planning discussed for 19 mins with patient at bedside. Surrogate decision maker: Rowan Cherry (child) - [facility] 2024-03-11 06:12:43 Medicine History & Physical Date of Service: 03/11/2024 Pt presents from: Home CC: Altered mental status History of Present Illness: Rowan Bonilla is a 63 year old female with past md hx of hypertension, hypothyroidism, cervical cancer status post hysterectomy and cirrhosis that presents to the ED for altered mental status. Per patient she has been feeling dizzy for approximately 1 day per daughter at bedside she became altered in this timeframe. Due to this she was brought to the hospital for evaluation denies any fever chills or urinary symptoms. The emergency department noted to be hypertensive. Initial labs show no leukocytosis. Potassium is noted to be 3.3 mmol/L. With a bicarb of 19 mmol/L. Ammonia is noted to be elevated at 52. She did have a UA which did show elevated white blood cells along with leuk esterase in the urine. She did receive a CT of abdomen pelvis showing status post TIPS placement, nonocclusive thrombus is noted in the main portal vein just beyond the TIPS stent (not on AC due to prior HX of bleeding). CT of head shows no acute process. On exam she is alert and oriented x 3. Mentation appears improved. States compliance with medications denies smoking drinking or drugs at this time. ROS: Pt denies F / N / V / D / Constipation / CP / SOB / cough / Abd pain / dysuria / hematuria / melena / hematochezia / rashes / suicidal or homicidal ideation / All others negative Review of Hx/Meds: PMH: Past Medical History: Diagnosis Date Cancer 2000 Cervical with total hysterectomy Coagulation defect 01/01/2024 Essential (primary) hypertension 12/09/2021 Hypothyroid 09/17/2014 PSH: has a past surgical history that includes dilation and curettage (shx); appendectomy (1977); hysterectomy; colonoscopy (N/A, 04/21/2022); colonoscopy (N/A, 01/23/2023); cystoscopy with evacuation clots (shx) (N/A, 12/22/2023); esophagogastroduodenoscopy (Upper, 12/27/2023); and cystoscopy with evacuation clots (shx) (N/A, 02/04/2024). Family Hx: Noncontributory unless mentioned above Social History Tobacco Use Smoking status: Former Current packs/day: 0.00 Types: Cigarettes Quit date: 2010 Years since quittin.8 Passive exposure: Past Smokeless tobacco: Never Substance Use Topics Alcohol use: Yes Comment: social use-once every other week, beer-daily Drug use: Not Currently Types: Marijuana Current Scheduled Medications Current IV Current Facility-Administered Medications: atorvastatin (LIPITOR) tablet 40 mg, 40 mg, Oral, QHS, Oscar Madden, DO ferrous sulfate tablet 325 mg, 325 mg, Oral, DAILY, Oscar Madden, DO foLIC acid (FOLATE) tablet 1 mg, 1 mg, Oral, DAILY, Oscar Madden DO lactulose (CEPHULAC) 10 gram/15 mL oral solution 30 mL, 30 mL, Oral, BID, Oscar Madden DO levothyroxine (SYNTHROID) tablet 125 mcg, 125 mcg, Oral, QAM-0600, Oscar Madden DO, 125 mcg at 03/11/24 0543 lisinopriL (PRINIVIL,ZESTRIL) tablet 10 mg, 10 mg, Oral, DAILY, Oscar Madden DO thiamine mononitrate (VITAMIN B-1 (MONONITRATE)) tablet 100 mg, 100 mg, Oral, TID, Oscar Madden DO acetaminophen (TYLENOL) tablet 650 mg, 650 mg, Oral, Q6HPRN, Dayan Nevarez MD cefTRIAXone (ROCEPHIN) 1,000 mg in water for injection, sterile 10 mL IV Push, 1,000 mg, Intravenous, Q24H ABX, Dayan Nevarez MD HYDROcodone-acetaminophen (NORCO 5) tablet 1 tablet, 1 tablet, Oral, Q6HPRN, Dayan Nevarez MD morpHINE (4 mg/mL) injection 4 mg, 4 mg, Slow IV Push, Q4HPRN, Dayan Nevarez MD ondansetron (ZOFRAN (PF)) injection 4 mg, 4 mg, Slow IV Push, Q6HPRN, Dayan Nevarez MD Objective: Vitals: Vitals: 03/10/24201303/10/24 2036 03/10/24 2241 03/11/24 0359 BP: (!) 157/58 (!) 169/67 (!) 152/60 (!) 154/61 Pulse: 79 75 78 70 Resp: 21 18 16 17 Temp: 36.4 ?C (97.5 ?F) 36.8 ?C (98.2 ?F) 36.5 ?C (97.7 ?F) TempSrc: SpO2: 97% 100% 98% 100% Weight: 77.3 kg (170 lb 8 oz) 76.5 kg (168 lb 9.6 oz) Height: I/O's: No intake or output data in the 24 hours ending 10/29/24 0612 Physical Exam: General: NAD, Alert, lying in bed comfortable, cogent speech, obese. HEENT: anicteric, oral mucosa dry Neck: supple, no JVD, no bruits. Chest: CTA B/L, no W/R/C. Heart: RRR, S1/S2, no M/G/R Abdominal: BS normoactive, soft, ND, NT. Skin/Extremities: no rash, no cyanosis, warm and dry, no LE edema. Neurological: CN II-XII grossly intact, no focal deficits. Labs: BMP:BMP NA (mmol/L) Date Value 03/10/2024 139 02/05/2024 131 (L) 02/04/2024 133 (L) 02/03/2024 135 01/04/2024 136 K (mmol/L) Date Value 03/10/2024 3.3 (L) 02/05/2024 4.2 02/04/2024 3.8 02/03/2024 3.4 (L) 01/04/2024 3.7 CALCIUM (mg/dL) Date Value 03/10/2024 8.6 02/05/2024 7.8 (L) 02/04/2024 7.1 (L) 02/03/2024 7.8 (L) 01/04/2024 7.5 (L) CL (mmol/L) Date Value 03/10/2024 113 (H) 02/05/2024 106 02/04/2024 108 02/03/2024 105 01/04/2024 109 (H) BUN (mg/dL) Date Value 03/10/2024 12 02/05/2024 18 02/04/2024 15 02/03/2024 16 01/04/2024 9 CREATININE (mg/dL) Date Value 03/10/2024 0.61 02/05/2024 0.60 02/04/2024 0.50 02/03/2024 0.64 01/04/2024 0.63 GLUCOSE (mg/dL) Date Value 03/10/2024 82 02/05/2024 118 (H) 02/04/2024 97 02/03/2024 157 (H) 01/04/2024 95 CO2 TOTAL (mmol/L) Date Value 03/10/2024 19 (L) 02/05/2024 20 (L) 02/04/2024 24 02/03/2024 23 01/04/2024 22 (L) CBC:CBC WBC (10*3/?L) Date Value 03/10/2024 4.31 RBC (10*6/?L) Date Value 03/10/2024 3.10 (L) PLT (10*3/?L) Date Value 03/10/2024 115 (L) HGB (g/dL) Date Value 03/10/2024 8.3 (L) HCT (%) Date Value 03/10/2024 28.1 (L) BMP:Hepatic Function Panel ALBUMIN (g/dL) Date Value 03/10/2024 3.3 (L) T PROTEIN (g/dL) Date Value 03/10/2024 6.1 (L) TOTAL BILI (mg/dL) Date Value 03/10/2024 1.8 (H) BILI UNCON (mg/dL) Date Value 02/03/2024 1.1 BILI CONJ (mg/dL) Date Value 02/03/2024 0.0 ALTv (U/L) Date Value 03/10/2024 17 AST(SGOT) (U/L) Date Value 03/10/2024 23 ALK PHOS (U/L) Date Value 03/10/2024 149 (H) Troponin: Recent Labs 03/10/24 1720 TROPNI 0.005 I have reviewed all relevant labs Imaging: CT ABDOMEN PELVIS W CONTRAST Result Date: 03/10/2024 CT ABDOMEN PELVIS W CONTRAST History/Indication: Abdominal distension Technique: Axial CT images of the abdomen and pelvis following administration of IV contrast. No oral contrast was given. CT scan done according to ALARA (As Low As Reasonably Achievable) Technical Quality: Adequate Comparison: CT abdomen pelvis with contrast 12/23/2023 Findings: Lungs: No evidence for pleural effusion at visualized lung bases. Liver & Biliary Tree: No focal hepatic mass is identified. TIPS stent is noted spanning from the right hepatic vein to the right portal vein. Nonocclusive thrombus is identified just beyond the stent in the main portal vein with clot burden significantly reduced compared to prior CT of the abdomen from December 2023. Vascular coils are identified along the left upper quadrant, likely representing embolization of splenorenal shunt. The TIPS stent appears patent. Gallbladder: The gallbladder is unremarkable. Spleen: The spleen is normal in size and appearance. Pancreas: The pancreas is unremarkable. Adrenal glands: The adrenal glands are normal in size and appearance. Kidneys: No evidence for hydronephrosis or nephrolithiasis. No perinephric free fluid is seen. Bowel: No evidence for bowel obstruction. There is moderate stool throughout the colon. Appendix: Appendix is not definitively visualized in the right lower quadrant. Peritoneum: No intraperitoneal free fluid. No intraperitoneal free air. Abdominal and pelvic lymph nodes: There are no enlarged lymph nodes. Abdominal vasculature: The abdominal aorta is nonaneurysmal. Urinary Bladder: Urinary bladder is moderately distended. No evidence for bladder calculi. Pelvis: Patient is status post hysterectomy. Bones and Soft Tissues: No aggressive osseous lesion is seen. No evidence for acute osseous abnormality. No focal drainable collection is seen. There is moderate diffuse anasarca. Impression: No evidence for bowel obstruction. No evidence for ascites. Postoperative changes from TIPS placement are identified with patent stent. Nonocclusive appearing thrombus is noted in the main portal vein just beyond the TIPS stent, though, clot burden is significantly reduced compared to prior CT of the abdomen from December 2023. Moderate stool throughout the colon. RL: 3016 HS: Y END OF REPORT HEAD WO CONTRAST Result Date: 03/10/2024 EXAM: CT HEAD WO CONTRAST HISTORY: Mental status change, unknown cause TECHNIQUE: CT of the head was performed without intravenous contrast. Sagittal and coronal reformats were generated. COMPARISON: None. FINDINGS: This scan is degraded by motion artifact. The ventricles and sulci are normal in caliber and configuration. No hydrocephalus, midline shift or pathological extra-axial fluid collection is present. The basal cisterns are unremarkable. There is no acute intracranial hemorrhage or significant mass effect. No parenchymal attenuation abnormality. The bro-white matter differentiation is preserved. The mastoid air cells and paranasal air sinuses are clear. The calvarium and central skull base are unremarkable. No acute intracranial abnormality. Assessment and plan: Principal Problem: Altered mental status, unspecified altered mental status type Acute hepatic encephalopathy: - Continue lactulose Cirrhosis: Status post TIPS - Continue to monitor Urinary tract infection: - Continue ceftriaxone - Follow-up urine cultures - Trend fever white blood cell count Hypothyroidism: - Continue Synthroid Hyperlipidemia: - Continues atorvastatin Hypertension: -Continue lisinopril DVT prophylaxis: SCD (HX of bleeding) Advanced Care Planning ( Z71.89 ) Above assessment and plan discussed at length with patient, patient expressed full understanding. Questions and concerns addressed I spent 3 minutes discussing the advance care planning. Advanced Directive Maker: PT Level of comfort: N/A Code Status: Full [place] DIRECTOR OF EXHIBIT DEVELOPMENT was verified Disposition: Await Stability [facility] [place] 2024-02-03 01:44:48 MEDICINE [place] ADMIT H&P PCP: [...] 1.3 CHART REVIEW: patient was admitted to [facility] for hematuria 1 month ago. She [...] N/A 04/21/2022 Surgeon: Radha Pena MD; Location: [facility] OR LOCATION COLONOSCOPY N/A 01/23/2023 Surgeon: Leroy Martel MD; Location: [facility] OR LOCATION CYSTOSCOPY WITH EVACUATION CLOTS (SHX) N/A 12/22/2023 Surgeon: Bertin Adame MD; Location: [facility] OR LOCATION DILATION AND CURETTAGE (SHX) ESOPHAGOGASTRODUODENOSCOPY Upper 12/27/2023 Surgeon: Mj Solitario MD; Location: [facility]OS[facility] ([facility]) OR LOCATION HYSTERECTOMY [...] use: Yes Types: Marijuana Patient lives in [place], [place] ROS: Positives are marked with bold [...] evaluation possible clot obstruction. - admit to [facility] - urology consult in AM - marquez in place - transfuse to keep Hgb [...] FULL Kim Greer DO Internal Medicine PGY3 [place] Team Associated attestation - Pawel Gilmore MD - 02/03/2024 3:51 AM CDT I personally examined the patient on 02/03/[address] Greer's resident note as written. I actively participated in the decision-making process. Please see the resident's note for additional details. Pawel Gilmore MD Division of Internal Stock Control ClerkCore Setter [facility] 2023-12-31 18:46:21 Medicine Intensive Care History and [...] N/A 04/21/2022 Surgeon: Radha Pena MD; Location: [facility] OR LOCATION COLONOSCOPY N/A 01/23/2023 Surgeon: Leroy Martel MD; Location: [facility] OR LOCATION CYSTOSCOPY WITH EVACUATION CLOTS (SHX) N/A 12/22/2023 Surgeon: Bertin Adame MD; Location: [facility] OR LOCATION DILATION AND CURETTAGE (SHX) ESOPHAGOGASTRODUODENOSCOPY Upper 12/27/2023 Surgeon: Mj Solitario MD; Location: [facility]OS[facility] ([facility]) OR LOCATION HYSTERECTOMY [...] prophylaxis: contraindicated Lines/Catheters: Insertion date: 12/30, Location: Marquez catheter Insertion date: 12/26, Location: PIV Left arm Insertion date: 12/30, Location: PIV Left hand Insertion date: 12/30, Location: Arterial Left radial Dispo: MICU Prognosis: Guarded Code Status: Full Code COMPLICATIONS/SECONDARY DIAGNOSIS James HernandezDO 12/31/23 Associated attestation - Bertin Bates DO - 01/01/2024 5:06 PM CDT I agree with the Resident's note. Please see the Resident's note for additional details. Bertin Bates DO Core Setter Division of Pulmonary & Critical Care Medicine [facility] 2023-12-21 20:47:26 UROLOGY HISTORY AND PHYSICAL NOTE [...] bleeding, however and she sought evaluation in [place] ED after she developed dizziness and vomitting. In [place] ED she was found to have symptomatic [...] N/A 04/21/2022 Surgeon: Radha Pena MD; Location: [facility] OR [facility] COLONOSCOPY N/A 01/23/2023 Surgeon: Leroy Maretl MD; Location: [facility] OR LOCATION DILATION AND CURETTAGE (SHX) HYSTERECTOMY [...] Friends and Family: Not on file Attends [employer]: Not on file Active Member of [...] tender Genitourinary: exam performed in presence of central services tech... Digital vaginal exam negative for vaginal bleeding, [...] ETOH abuse. Elevated Ammonia. Normal LFT's. - Marquez + CBI overnight - pre-procedural clears - possible cystoscopy and clot evacuation+ fulguration in AM (Case requested) - f/u morning Hb, transfuse for Hb < 7 - trend UO and creatinine - GI consult for liver findings - surgical co-management consult - thiamine Discussed case with faculty, Dr. Adame . Ciro Wick MD Urology Resident Pager: please page satellite communications operator using Video Recruit Associated attestation - Bertin Adame MD - 12/22/2023 8:53 AM CDT I personally examined the patient on 12/22/[address] Wick's resident note as written. I actively participated in the decision-making process. Please see the resident's note for additional details. Bertin Adame MD 12/22/2023 8:52 AM [facility] 2023-12-20 16:34:35 [facility] Hospitalist Admission H&P Date of Service: 12/20/2023 [...] N/A 04/21/2022 Surgeon: Radha Pena MD; Location: [facility] OR [facility] COLONOSCOPY N/A 01/23/2023 Surgeon: Leroy Martel MD; Location: [facility] OR LOCATION DILATION AND CURETTAGE (SHX) HYSTERECTOMY [...] Cessation: (Z71.6) Tobacco user?: Former smoker [facility] [place] DIRECTOR OF EXHIBIT DEVELOPMENT was viewed during this stay ELIEZER Arias [...] care. Dayan Nevarez MD 12/20/2023 8:12 PM [facility] 2023-01-23 07:16:44 Formatting of this n ote [...] N/A 04/21/2022 Surgeon: Radha Pena MD; Location: [facility] DILATION AND CURETTAGE (SHX) HYSTERECTOMY No current [...] complete the procedure, cardiovascular complications such as AL, stroke, arrhythmia, and . Informed consent obtained/verified. [...] to clinic for evaluation. Leroy Martel MD Core Setter Division [facility]enterology [facility] Procedure Notes Date/Time Note Provider Source 2024-02-04 14:10:57 Procedure(s): [place] CYSTO W/IRRIG & EVAC MULTPLE OBSTRUCTING CLOTS; [place] CYSTO W/DESTRUCTION OF LESIONS Full Operative Note 02/04/2024 Faculty Surgeon: Bertin Adame MD Resident Surgeon: Kavon Enrique MD & Alexx Huizar MD Preoperative Diagnosis: Gross hematuria Postoperative Diagnosis: Gross hematuria EBL: <50 milliliters Specimens: none Drains: 22 [place] 3-way catheter connected to continuous bladder irrigation Complications: none Procedure: 1. Cystoscopy with clot evacuation and fulguration of bleeders (CPT 98047 & 47545) Findings: 20 cc organized clot within the [...] of the case. A 22 [place] 3-way catheter was placed into the bladder and continuous bladder irrigation was initiated.The patient tolerated the procedure well and was transferred to the post-anesthesia care unit in stable condition. Kavon Enrique MD Urology PGY5 Associated attestation - Bertin Adame MD - 02/04/2024 3:36 PM CDT I was present for and supervised the entire procedure. Bertin Adame MD 02/04/2024 3:36 PM [facility] 2023-12-31 14:18:26 Associated Order(s): Arterial Line Arterial Line Date/Time: 12/31/2023 1:20 PM Performed by: Rachel Lange CRNA Arterial Line Placement: Ultrasound-Guided: surface landmarks Patient Location: OR Indication: continuous blood pressure monitoring and blood sampling needed Staff: FRANKLIN: Rachel Lange CRNA Procedure Detail: Catheter Size: 20 gauge Catheter Length: 1 and 1/4 inch Catheter Type: Arrow Laterality: Left Site: Radial artery Line Secured: Tape and biopatch Preparation: Chloroprep and sterile gloves Events: Events: Patient tolerated procedure well with no complications NACR-NURSE INFECTION PREVENTION COORDINATOR,CERTIFIED REGISTERED NURSE INFECTION PREVENTION COORDINATOR [facility] 2023-12-31 14:14:09 Associated Order(s): Intubation Intubation Date/Time: 12/31/2023 1:09 PM Urgency: elective Airway not difficult General Information and Staff Patient location during procedure: OR Performed: resident/[employer] PAVING FOREMAN Performed by: Rachel Lange CRNA Authorized by: [...] 22 Number of attempts at approach: 1 [facility] 2023-12-22 10:12:10 Procedure(s): [place] CYSTO W/IRRIG & EVAC MULTPLE OBSTRUCTING CLOTS; [place] CYSTO W/DESTRUCTION OF LESIONS Full Operative Note 12/22/2023 Faculty Surgeon: Bertin Adame MD Resident Surgeon: Kavon Enrique MD & Ciro Wick MD Preoperative Diagnosis: Gross hematuria Postoperative Diagnosis: Gross hematuria EBL: <50 milliliters Specimens: none Drains: 22 Citizen [place] 3-way catheter connected to continuous bladder irrigation Complications: none Procedure: 1. Cystoscopy with clot evacuation and fulguration of bleeders (CPT 36682 & 14206) Findings: 10 cc organized clot within the [...] of the case. A 22 [place] 3-way catheter was placed into the bladder and continuous bladder irrigation was initiated.The patient tolerated the procedure well and was transferred to the post-anesthesia care unit in stable condition. Kavon Enrique MD Urology PGY5 Associated attestation - Bertin Adame MD - 12/22/2023 12:26 PM CDT I was present for and supervised the entire procedure. Bertin Adame MD 12/22/2023 12:26 PM [facility]
[2024-06-18 01:42] LABS: Specific Gravity 1.016 (1.005-1.030); Sqamous Epithelial None Seen /HPF (None Seen); Urine Bacteria None Seen /HPF (<20); Urine Bilirubin NEGATIVE (Negative); Urine Blood 3+ (OVER) (Negative); Urine Clarity Extremely Turbid (Clear); Urine Color Red (Yellow); Urine Culture Reflex Order REFLEXED; Urine Glucose NEGATIVE (Negative); Urine Ketones NEGATIVE (Negative); Urine Micro Reflex YN NO BILL MICROSCOPIC; Urine Nitrite NEGATIVE (Negative); Urine Protein 3+ (Negative); Urine RBC >50 /HPF (None Seen); Urine Urobilinogen Normal (Normal); Urine WBC >50 /HPF (<5); Urine WBC Clump Many /HPF (None Seen)
[2024-06-18] MEDS ORDERED: FUROSEMIDE 20 MG/ 2ML VIAL ONE (01:48)
[2024-06-18] MEDS ORDERED: LACTULOSE 20 GM/30 ML UCUP ONE ×2 (01:49→06:27)
[2024-06-18 01:51] LABS: Barbiturates NEGATIVE (NEGATIVE); Benzodiazepines NEGATIVE (NEGATIVE); Cocaine NEGATIVE (NEGATIVE); METHAMPHETAM NEGATIVE (NEGATIVE); Methadone NEGATIVE (NEGATIVE); Opiates NEGATIVE (NEGATIVE); Phencyclidine NEGATIVE (NEGATIVE); THC Cannibis NEGATIVE (NEGATIVE)
[2024-06-18 02:36] LABS: Absolute Lymphocytes (CBC) 0.5 K/uL (0.7-4.9); Absolute Monocytes 0.5 K/uL (0.1-1.3); Absolute Neutrophil 5.4 K/uL (1.8-8.0); Basophils % 0.6 % (0-1.3); Eosinophils % 0.3 % (0-4.4); Hematocrit 22.8 % (36.0-45.0); Hemoglobin 7.7 g/dL (12.0-15.0); Lymphocytes % 7.3 % (15.3-44.8); MCH 31.5 pg (27.0-35.0); MCHC 33.6 g/dL (32.0-36.0); MPV 9.3 fL (7.6-11.3); Monocytes % 7.4 % (3.3-12.3); Neutrophils % 84.4 % (41.7-73.7); Platelets 119 thou/uL (152-406); RBC Red Blood Cell Count 2.43 M/uL (3.86-4.86); Red Cell Distribution Width 15.5 % (12.1-15.2)
[2024-06-18 02:42] LABS: PT Prothrombin Time 13.7 SECONDS (9.4-12.5); PTT, Activated Partial Thromb 26.5 SECONDS (24.3-36.9); Protime INR 1.31
[2024-06-18 02:55] LABS: ALT/SGPT 22 U/L (13-56); AST/SGOT 16 U/L (15-37); Albumin 2.4 g/dL (3.4-5.0); Albumin/Globulin Ratio 0.9 (1.1-1.8); Alkaline Phosphatase 140 U/L (45-117); Anion Gap 11.3 mEq/L (5.0-15.0); BUN Blood Urea Nitrogen 19 mg/dL (7-18); Bicarbonate 23 mEq/L (21-32); Bilirubin Direct 0.7 mg/dL (0-0.2); Bilirubin Total 1.7 mg/dL (0.2-1.0); Creatine Phosphokinase 71 U/L (26-192); Globulin 2.6 g/dL (2.3-3.5); Glomerular Filtration Rate 54 ml/min (=/>90); Glucose Level 135 mg/dL (74-106); Lipase 23 U/L (13-75); NT PRO-BNP 174 pg/mL (<125); Potassium 3.3 mEq/L (3.5-5.1); Sodium Level 146 mEq/L (136-145); Thyroid Stimulating Hormone 0.138 uIU/mL (0.358-3.740); Troponin High Sensitivity 13.1 pg/mL (<58.9)
[2024-06-18 03:00] LABS: C-Reactive Protein < 2.90 mg/L (<3.00)
[2024-06-18] MEDS ORDERED: CEFTRIAXONE 1000 MG/VIAL ONE (03:30)
[2024-06-18] MEDS ORDERED: NA CHLORIDE 0.9% 50 ML ONE (03:31)
--- NOTE | 2024-06-18 04:08 | RAD REPORT ---
EXAM: CT Chest, Abdomen and Pelvis Without Intravenous Contrast CLINICAL HISTORY: The patient is 63 years old and is Female; AMS TECHNIQUE: Axial computed tomography images of the chest, abdomen and pelvis without intravenous co ntrast. Sagittal and coronal reformatted images were created and reviewed. This CT exam was performed using one or more of the following dose reduction techniques: automated exposure control, adjustment of the mA and/or kV according to patient size, and/or use of iterative reconstruction technique. COMPARISON: No relevant prior studies available. FINDINGS: CHEST: Lungs: Unremarkable. No mass. No consolidation. Pleural space: Unremarkable. No significant effusion. No pneumothorax. Heart: Unremarkable. No cardiomegaly. No significant pericardial effusion. No significant c oronary artery calcifications. ABDOMEN: Liver: TIPS in place. Gallbladder and bile ducts: Unremarkable. No calcified stones. No ductal dilation. Pancreas: Unremarkable. No ductal dilation. Spleen: Unremarkable. No splenomegaly. Adrenals: Unremarkable. No mass. Kidneys and ureters: Unremarkable. No obstructing stones. No hydronephrosis. Stomach and bowel: Stool throughout the colon. No obstruction. No mucosal thickening. PELVIS: Appendix: No findings to suggest acute appendicitis. Bladder: Gracia catheter in the bladder. No stones. Reproductive: Unremarkable as visualized. CHEST, ABDOMEN and PELVIS: Intraperitoneal space: Unremarkable. No significant fluid collection. No free air. Bones/joints: 6 mm of anterolisthesis of L4 on L5. No acute fracture. No dislocation. Soft tissues: Mild scattered subcutaneous stranding/edema. Vasculature: Scattered atherosclerotic vascular calcifications. Vascular coils in the left upper quadrant. No aortic aneurysm. Lymph nodes: Unremarkable. No enlarged lymph nodes. * A single impression for all exams can be found at the end of this report CT Chest, Abdomen and Pelvis Without Intravenous Contrast: No acute findings in the chest, abdomen or pelvis. Electronically signed by: Devan Cramer MD 06/18/2024 03:51 AM [facility] 8 Due to temporary technical issues with the PACS/[employer] reporting system, reports are being gerber d by the in-house radiologist without review as a courtesy to ensure prompt reporting the interpreting radiologist is fully responsible for the content of the report. Transcribed Date/Time: 06/18/2024 4:08 AM
--- NOTE | 2024-06-18 04:10 | RAD REPORT ---
EXAM: CT Head Without Intravenous Contrast CLINICAL HISTORY: The patient is 63 years old and is Female; AMS TECHNIQUE: Axial computed tomography images of the head/brain without intravenous contrast. Sagit jessika and coronal reformatted images were created and reviewed. This CT exam was performed using one or more of the following dose reduction techniques: automated exposure control, adjustment of t he mA and/or kV according to patient size, and/or use of iterative reconstruction technique. COMPARISON: No relevant prior studies available. FINDINGS: Brain: Unremarkable. No hemorrhage. No significant white matter disease. No edema. Ventricles: Unremarkable. No ventriculomegaly. Bones/joints: Unremarkable. No acute fracture. Soft tissues: Unremarkable. Sinuses: Unremarkable as visualized. Mastoid air cells: Unremarkable as visualized. No mastoid effusion. IMPRESSION: CT Head Without Intravenous Contrast: No acute intracranial abnormality. Electronically signed by: Devan Cramer MD 06/18/2024 03:51 AM [facility] 8 Due to temporary technical issues with the PACS/[employer] reporting system, reports are being gerber d by the in-house radiologist without review as a courtesy to ensure prompt reporting the interpreting radiologist is fully responsible for the content of the report. Transcribed Date/Time: 06/18/2024 4:10 AM
--- NOTE | 2024-06-18 05:54 | RAD REPORT ---
EXAM: XR Chest, 1 View CLINICAL HISTORY: The patient is 63 years old and is Female; AMS TECHNIQUE: Frontal view of the chest. COMPARISON: No relevant prior studies available. FINDINGS: Lungs: Unremarkable. No consolidation. Pleural space: Unremarkable. No pneumothorax. Heart: Unremarkable. Mediastinum: Unremarkable. Normal mediastinal contour. Bones/joints: No acute findings. Upper abdomen: Curvilinear hyperdensities overlying the left upper quadrant. * A single impression for all exams can be found at the end of this report EXAM: CT Head Without Intravenous Contrast CLINICAL HISTORY: The patient is 63 years old and is Female; AMS TECHNIQUE: Axial computed tomography images of the head/brain without intravenous contrast. Sagit jessika and coronal reformatted images were created and reviewed. This CT exam was performed using one or more of the following dose reduction techniques: automated exposure control, adjustment of t he mA and/or kV according to patient size, and/or use of iterative reconstruction technique. COMPARISON: No relevant prior studies available. FINDINGS: Brain: Unremarkable. No hemorrhage. No significant white matter disease. No edema. Ventricles: Unremarkable. No ventriculomegaly. Bones/joints: Unremarkable. No acute fracture. Soft tissues: Unremarkable. Sinuses: Unremarkable as visualized. Mastoid air cells: Unremarkable as visualized. No mastoid effusion. * A single impression for all exams can be found at the end of this report EXAM: CT Chest, Abdomen and Pelvis Without Intravenous Contrast CLINICAL HISTORY: The patient is 63 years old and is Female; AMS TECHNIQUE: Axial computed tomography images of the chest, abdomen and pelvis without intravenous co ntrast. Sagittal and coronal reformatted images were created and reviewed. This CT exam was performed using one or more of the following dose reduction techniques: automated exposure control, adjustment of the mA and/or kV according to patient size, and/or use of iterative reconstruction technique. COMPARISON: No relevant prior studies available. FINDINGS: CHEST: Lungs: Unremarkable. No mass. No consolidation. Pleural space: Unremarkable. No significant effusion. No pneumothorax. Heart: Unremarkable. No cardiomegaly. No significant pericardial effusion. No significant c oronary artery calcifications. ABDOMEN: Liver: TIPS in place. Gallbladder and bile ducts: Unremarkable. No calcified stones. No ductal dilation. Pancreas: Unremarkable. No ductal dilation. Spleen: Unremarkable. No splenomegaly. Adrenals: Unremarkable. No mass. Kidneys and ureters: Unremarkable. No obstructing stones. No hydronephrosis. Stomach and bowel: Stool throughout the colon. No obstruction. No mucosal thickening. PELVIS: Appendix: No findings to suggest acute appendicitis. Bladder: Gracia catheter in the bladder. No stones. Reproductive: Unremarkable as visualized. CHEST, ABDOMEN and PELVIS: Intraperitoneal space: Unremarkable. No significant fluid collection. No free air. Bones/joints: 6 mm of anterolisthesis of L4 on L5. No acute fracture. No dislocation. Soft tissues: Mild scattered subcutaneous stranding/edema. Vasculature: Scattered atherosclerotic vascular calcifications. Vascular coils in the left upper quadrant. No aortic aneurysm. Lymph nodes: Unremarkable. No enlarged lymph nodes. * A single impression for all exams can be found at the end of this report IMPRESSION: XR Chest, 1 View: No acute findings in the chest. CT Head Without Intravenous Contrast: No acute intracranial abnormality. CT Chest, Abdomen and Pelvis Without Intravenous Contrast: No acute findings in the chest, abdomen or pelvis. Electronically signed by: Devan Cramer MD 06/18/2024 03:51 AM [facility] 8 Due to temporary technical issues with the PACS/[employer] reporting system, reports are being gerber d by the in-house radiologist without review as a courtesy to ensure prompt reporting the interpreting radiologist is fully responsible for the content of the report. Transcribed Date/Time: 06/18/2024 5:54 AM
--- NOTE | 2024-06-18 06:10 | EDPHYS ---
Physician Documentation [facility] Name: Pepper Bonilla Age: 63 yrs Sex: Female : 1960 Arrival Date: 06/18/2024 Time: 00:47 Bed 4 Private MD: ED Physician Martínez Acosta HPI: 06/18 00:48 This 63 yrs old Female presents to ER via Unassigned with complaints of sp4 Altered Mental Status. 05:53 this is 63-year-old female with history of hypothyroidism hypertension and liver sp4 cirrhosis presents with acute altered mental status. EMS reports that patient has not been compliant with her lactulose. Periodically patient becomes obtunded secondary to noncompliance with her lactulose.. Historical: - Allergies: :39 No Known Allergies; jb4 - PMHx: 01:39 Hypothyroidism; HTN; Cirrhosis of liver; jb4 - Immunization history:: Adult Immunizations up to date. - Infectious Disease History:: Denies. - Social history:: Smoking status: Patient denies any tobacco usage or history of. - Family history:: not pertinent. ROS: 05:53 Constitutional: Negative for fever, chills, and weight loss, positive for somnolence sp4 and altered mental status 05:53 All other systems are negative, Exam: 05:53 Constitutional: This is ill-appearing pale appearing female who is alert and oriented sp4 x 1 patient is arousable and follows basic commands Head/Face: Normocephalic, atraumatic. Eyes: Pupils equal round and reactive to light, extra-ocular motions intact. Lids and lashes normal. Patient has icteric conjunctiva , cornea within normal limits. Periorbital areas with no swelling, redness, or edema. ENT: Nares patent. No nasal discharge, no septal abnormalities noted. Tympanic membranes are normal and external auditory canals are clear. Oropharynx with no redness, swelling, or masses, exudates, or evidence of obstruction, uvula midline. Mucous membranes moist. Neck: Trachea midline, no thyromegaly or masses palpated, and no cervical lymphadenopathy. Supple, full range of motion without nuchal rigidity, or vertebral point tenderness. Chest/axilla: Normal chest wall appearance and motion. Nontender with no deformity. No lesions are appreciated. Cardiovascular: Regular rate and rhythm with a normal S1 and S2. No gallops, murmurs, or rubs. Normal PMI, no JVD. No pulse deficits. Respiratory: Lungs have equal breath sounds bilaterally, clear to auscultation and percussion. No rales, rhonchi or wheezes noted. No increased work of breathing, no retractions or nasal flaring. Abdomen/GI: Soft, with normal bowel sounds. No distension or tympany. No guarding or rebound. No evidence of tenderness throughout. Back: No spinal tenderness. No costovertebral tenderness. Skin: Warm, dry with normal turgor. Normal color with no rashes, no lesions, positive for jaundice MS/ Extremity: Pulses equal, no cyanosis. Neurovascular intact. Full, normal range of motion. Neuro: Patient is somnolent but arousable oriented x 1 otherwise exam is limited patient is moving all extremities. Grossly no lateralizing deficits Psych: Patient is somnolent arousable oriented x 1 05:59 ECG was reviewed by the Attending Physician. EKG 0 110 sinus tachycardia rate 105 sp4 with periodic PVCs otherwise normal Vital Signs: 01:37 BP 147 / 51; Pulse 96; Resp 18; Temp 98.3(TE); Pulse Ox 100% on R/A; Weight 73.94 kg jb4 (R); Height 5 ft. 3 in. ; 02:58 BP 147 / 50; Pulse 92; Resp 18; Pulse Ox 99% on R/A; jb4 04:46 BP 135 / 54; Pulse 87; Resp 18; Temp 98.3; Pulse Ox 100% ; Pain 0/10; bm8 06:05 BP 148 / 72; Pulse 92; Resp 18; Temp 98.3; Pulse Ox 100% ; Pain 0/10; bm8 01:37 Body Mass Index 28.87 (73.94 kg, 160.02 cm) jb4 04:46 Pain Scale: Adult bm8 06:05 Pain Scale: Adult bm8 Mcclusky Coma Score: 04:46 Eye Response: to pain(2). Motor Response: obeys commands(6). Verbal Response: bm8 confused(4). Total: 12. 05:53 Eye Response: to pain(2). Motor Response: obeys commands(6). Verbal Response: sp4 confused(4). Total: 12. MDM: 00:53 Medical Screening Exam initiated sp4 04:39 ED course: EXAM: XR Chest, 1 View CLINICAL HISTORY: The patient is 63 years old and is sp4 Female; AMS TECHNIQUE: Frontal view of the chest. COMPARISON: No relevant prior studies available. FINDINGS: Lungs: Unremarkable. No consolidation. Pleural space: Unremarkable. No pneumothorax. Heart: Unremarkable. Mediastinum: Unremarkable. Normal mediastinal contour. Bones/joints: No acute findings. Upper abdomen: Curvilinear hyperdensities overlying the left upper quadrant. * A single impression for all exams can be found at the end of this report EXAM: CT Head Without Intravenous Contrast CLINICAL HISTORY: The patient is 63 years old and is Female; AMS TECHNIQUE: Axial computed tomography images of the head/brain without intravenous contrast. Sagittal and coronal reformatted images were created and reviewed. This CT exam was performed using one or more of the following dose reduction techniques: automated exposure control, adjustment of the mA and/or kV according to patient size, and/or use of iterative reconstruction technique. COMPARISON: No relevant prior studies available. FINDINGS: Brain: Unremarkable. No hemorrhage. No significant white matter disease. No edema. Ventricles: Unremarkable. No ventriculomegaly. Bones/joints: Unremarkable. No acute fracture. Soft tissues: Unremarkable. Sinuses: Unremarkable as visualized. Mastoid air cells: Unremarkable as visualized. No mastoid effusion. * A single impression for all exams can be found at the end of this report EXAM: CT Chest, Abdomen and Pelvis Without Intravenous Contrast CLINICAL HISTORY: The patient is 63 years old and is Female; AMS TECHNIQUE: Axial computed tomography images of the chest, abdomen and pelvis without intravenous contrast. Sagittal and coronal reformatted images were created and reviewed. This CT exam was performed using one or more of the following dose reduction techniques: automated exposure control, adjustment of the mA and/or kV according to patient size, and/or use of iterative reconstruction technique. COMPARISON: No relevant prior studies available. FINDINGS: CHEST: Lungs: Unremarkable. No mass. No consolidation. Pleural space: Unremarkable. No significant effusion. No pneumothorax. Heart: Unremarkable. No cardiomegaly. No significant pericardial effusion. No significant coronary artery calcifications. ABDOMEN: Liver: TIPS in place. Gallbladder and bile ducts: Unremarkable. No calcified stones. No ductal dilation. Pancreas: Unremarkable. No ductal dilation. Spleen: Unremarkable. No splenomegaly. Adrenals: Unremarkable. No mass. Kidneys and ureters: Unremarkable. No obstructing stones. No hydronephrosis. Stomach and bowel: Stool throughout the colon. No obstruction. No mucosal thickening. PELVIS: Appendix: No findings to suggest acute appendicitis. Bladder: Gracia catheter in the bladder. No stones. Reproductive: Unremarkable as visualized. CHEST, ABDOMEN and PELVIS: Intraperitoneal space: Unremarkable. No significant fluid collection. No free air. Bones/joints: 6 mm of anterolisthesis of L4 on L5. No acute fracture. No dislocation. Soft tissues: Mild scattered subcutaneous stranding/edema. Vasculature: Scattered atherosclerotic vascular calcifications. Vascular coils in the left upper quadrant. No aortic aneurysm. Lymph nodes: Unremarkable. No enlarged lymph nodes. * A single impression for all exams can be found at the end of this report IMPRESSION: XR Chest, 1 View: No acute findings in the chest. CT Head Without Intravenous Contrast: No acute intracranial abnormality. CT Chest, Abdomen and Pelvis Without Intravenous Contrast: No acute findings in the chest, abdomen or pelvis. Electronically signed by: Devan Cramer MD 06/18/2024 03:51 . 04:50 ED course: IMPRESSION: XR Chest, 1 View: No acute findings in the chest. CT Head sp4 Without Intravenous Contrast: No acute intracranial abnormality. CT Chest, Abdomen and Pelvis Without Intravenous Contrast: No acute findings in the chest, abdomen or pelvis. . 05:59 Differential Diagnosis: CVA, electrolyte abnormality, alcohol intoxication, sp4 hypoglycemia, intracranial bleed, meningitis, overdose, pneumonia. Data reviewed: vital signs, nurses notes, EMS record, old medical records, lab test result(s), EKG, radiologic studies, CT scan, plain films. 06:00 Consideration of Admission/Observation Escalation of care including sp4 admission/observation considered. Management of patient was discussed with the following: Terra Cotta Mold Maker: [facility] attending physician.. ED course: She is normal, patient has hepatic encephalopathy with elevated ammonia also coagulopathic bloody urine. Patient warrants transfer for consultation with hepatology. [facility] is her hospital of call. [facility] is excepted patient for transfer requested NG tube with administration of lactulose.. 02 00:49 Order name: BMP; Complete Time: 04:38 sp4 06/18 00:49 Order name: Blood Culture Adult (2) sp4 06/18 00:49 Order name: CBC with Diff; Complete Time: 04:38 sp4 06/18 00:49 Order name: CPK; Complete Time: 04:38 sp4 06/18 00:49 Order name: Hepatic Function; Complete Time: 04:38 sp4 06/18 00:49 Order name: Lipase; Complete Time: 04:38 sp4 06/18 00:49 Order name: Magnesium; Complete Time: 04:38 sp4 06/18 00:49 Order name: NT PRO-BNP; Complete Time: 04:38 sp4 06/18 00:49 Order name: PT-INR; Complete Time: 04:38 sp4 06/18 00:49 Order name: Ptt, Activated; Complete Time: 04:38 sp4 06/18 00:49 Order name: Troponin HS; Complete Time: 04:38 sp4 06/18 00:51 Order name: AMMONIA; Complete Time: 04:38 sp4 06/18 00:51 Order name: CRP; Complete Time: 04:38 sp4 06/18 00:52 Order name: Urinalysis W/Microscopic; Complete Time: 04:38 sp4 06/18 00:52 Order name: Alcohol Level; Complete Time: 04:38 sp4 06/18 00:53 Order name: Urine Drug Screen; Complete Time: 04:38 sp4 06/18 01:18 Order name: Type And Screen; Complete Time: 04:38 sp4 06/18 01:47 Order name: Urine Culture EDMS 06/18 01:50 Order name: Thyroid Stimulating Hormone; Complete Time: 04:38 EDMS 06/18 02:23 Order name: Lactate w/ 2H reflex if indic.; Complete Time: 04:38 sp4 06/18 03:44 Order name: Ghost Lactate-NO COLLECT Timer; Complete Time: 06:10 EDMS 06/18 03:59 Order name: ABO/RH no charge; Complete Time: 04:38 EDMS 06/18 00:49 Order name: XRAY CXR (1 view) sp4 06/18 00:52 Order name: CT Head Brain wo Cont sp4 06/18 00:53 Order name: CT Chest Abdomen Pelvis W/O Contrast sp4 06/18 00:49 Order name: EKG; Complete Time: 00:50 sp4 06/18 00:49 Order name: Cardiac monitoring; Complete Time: :25 sp4 06/18 00:49 Order name: EKG - Nurse/Tech; Complete Time: :25 sp4 06/18 00:49 Order name: IV Saline Lock; Complete Time: : sp4 06/18 00:49 Order name: Labs collected and sent; Complete Time: 02:41 sp4 06/18 00:49 Order name: O2 Per Protocol; Complete Time: :25 sp4 06/18 00:49 Order name: O2 Sat Monitoring; Complete Time: 01:25 sp4 06/18 05:13 Order name: NG Tube; Complete Time: 05:56 sp4 EC:10 Rate is 105 beats/min. Rhythm is irregular, Sinus tachycardia with Occasional PVCs. QRS sp4 Fine is Normal. SD interval is normal. QRS interval is normal. QT interval is normal. No Q waves. T waves are Normal. No ST changes noted. Clinical impression: No evidence of ischemia. Interpreted by me. Reviewed by me. Administered Medications: 01:55 Drug: Furosemide IVP 20 mg IVP once; give over 2 minutes Route: IVP; Site: left forearm;jb4 02:41 Follow up: Response: No adverse reaction jb4 03:04 Not Given (Pt unable to follow commands ): [id number] grams 45 ml PO once jb4 03:32 Drug: Rocephin - Rocephin (cefTRIAXone) IVPB 1 grams IVPB once over 30 mins; (mix in 50 lg3 mL NS) Route: IVPB; Infused Over: 30 mins; Site: right antecubital; 06:06 Follow up: Response: No adverse reaction; IV Status: Completed infusion; IV Intake: [id number] 06:42 Drug: Lactulose PO 30 grams 45 ml PO once; via NG tube {Note: given via NG tube.} bm8 Volume: 45 ml; Route: PO; 07:12 Follow up: Response: No adverse reaction bm8 06:42 Drug: Ondansetron IVP 8 mg IVP once; over 2 minutes Route: IVP; Site: right antecubital;bm8 07:12 Follow up: Response: No adverse reaction bm8 Disposition Summary: 06/18/24 06:09 Transfer Ordered Notes: Transfer Location: [facility]-System sp4 Reason: Higher level of care sp4 Condition: Stable sp4 Problem: new sp4 Symptoms: are unchanged sp4 Accepting Physician: [facility] attending hospitalist.(06/18/24 07:11) bm8 Diagnosis - Anemia, unspecified sp4 - Acute hepatic encephalopathy, elevated ammonia level, symptomatic anemia, anemia of sp4 chronic disease, liver cirrhosis Discharge Instructions: - Discharge Summary Sheet bm8 Forms: - Medication Reconciliation Form sp4 - SBAR form bm8 Signatures: Dispatcher [employer] EDBruce Johnson RN RN jb4 Sushma Johnson RN RN lg3 Martínez Acosta MD MD sp4 Wyatt Martinez RN RN bm8 Corrections: (The following items were deleted from the chart) 00:50 00:50 BASIC METABOLIC PANEL+C.LAB.BRZ ordered. EDUT EDMS 00:50 00:50 BLOOD CULTURE*+BA.LAB.BRZ ordered. EDMS EDMS 00:50 00:50 CBC+H.LAB.BRZ ordered. EDMS EDMS 00:50 00:50 CREATINE PHOSPHOKINASE+C.LAB.BRZ ordered. EDMS EDMS 00:50 00:50 HEPATIC FUNCTION+C.LAB.BRZ ordered. EDMS EDMS 00:50 00:50 LIPASE+C.LAB.BRZ ordered. EDMS EDMS 00:50 00:50 MAGNESIUM+C.LAB.BRZ ordered. EDMS EDMS 00:50 00:50 PROBNP+C.LAB.BRZ ordered. EDMS EDMS 00:50 00:50 PROTIME (+INR)+COAG.LAB.BRZ ordered. EDMS EDMS 00:50 00:50 PTT, ACTIVATED+COAG.LAB.BRZ ordered. EDMS EDMS 00:50 00:50 Troponin High Sensitivity+C.LAB.BRZ ordered. EDMS EDMS 01:49 00:52 THYROID STIMULAT HORMONE+C.LAB.BRZ ordered. EDMS EDMS 07:11 06:09 [facility] attending hospitalist. sp4 bm8
--- NOTE | 2024-06-18 06:10 | ER ---
Nurse's Notes [facility] Name: Pepper Bonilla Age: 63 yrs Sex: Female : 1960 Arrival Date: 06/18/2024 Time: 00:47 Bed 4 Private MD: Diagnosis: Anemia, unspecified;Acute hepatic encephalopathy, elevated ammonia level, symptomatic anemia, anemia of chronic disease, liver cirrhosis Presentation: 06/18 01:37 Chief complaint: Patient's son or daughter states: She has been getting more altered as jb4 the day progresses and she has also been urinating blood but that is not new. Her last know normal was around 6 am 06/17/24 EMS states: Pt family called due to altered mental status. Coronavirus screen: At this time, the client does not indicate any symptoms associated with coronavirus-19. Ebola Screen: No symptoms or risks identified at this time. Initial Sepsis Screen: Does the patient meet any 2 criteria? No. Patient's initial sepsis screen is negative. Does the patient have a suspected source of infection? No. Patient's initial sepsis screen is negative. Risk Assessment: Do you want to hurt yourself or someone else? Patient reports no desire to harm self or others. Onset of symptoms was June 17, 2023. Transition of care: patient was not received from another setting of care. 01:37 Method Of Arrival: EMS: [facility] jb4 01:37 Acuity: DEBBY 2 jb4 Historical: - Allergies: 01:39 No Known Allergies; jb4 - PMHx: 01:39 Hypothyroidism; HTN; Cirrhosis of liver; jb4 - Immunization history:: Adult Immunizations up to date. - Infectious Disease History:: Denies. - Social history:: Smoking status: Patient denies any tobacco usage or history of. - Family history:: not pertinent. Screenin:40 [facility] ED Fall Risk Assessment (Adult) History of falling in the last 3 months, jb4 including since admission No falls in past 3 months (0 pts) Confusion or Disorientation No (0 pts) Intoxicated or Sedated No (0 pts) Impaired Gait No (0 pts) Mobility Assist Device Used No (0 pt) Altered Elimination No (0 pt) Score/Fall Risk Level 0 - 2 = Low Risk Oriented to surroundings, Maintained a safe environment. Abuse screen: Denies threats or abuse. Nutritional screening: No deficits noted. Tuberculosis screening: No symptoms or risk factors identified. Assessment: 01:40 General: Appears in no apparent distress. ill, Behavior is cooperative, quiet. Pain: jb4 Unable to use pain scale. Patient is disoriented. Neuro: Level of Consciousness is obeys commands, confused, lethargic, Oriented to Pt is able to follow some commands. is not able answer questions.. Cardiovascular: Patient's skin is warm and dry. Respiratory: Airway is patent Respiratory effort is even, unlabored, Respiratory pattern is regular, symmetrical. : Derm: Skin is intact, Skin is dry, Skin is jaundiced, pale, Skin temperature is cool. Musculoskeletal: Circulation, motion, and sensation intact. Range of motion: intact in all extremities. 01:56 Reassessment: Instructed to hold Lactulose at this time due to pt being unable to jb4 follow well enough to take oral medications. 02:58 Reassessment: Pt remains to altered to administer oral lactulose at this time. ER jb4 physician is aware. Respirations are even and unlabored. 04:46 Reassessment: Patient appears in no apparent distress at this time. Patient and/or bm8 family updated on plan of care and expected duration. Pain level reassessed. Patient is alert, oriented x 3, equal unlabored respirations, skin warm/dry/pink. pt is resting with eyes closed breathing is even unlabored with symmetrical rise and fall of chest, denies pain at this time. Patient denies pain at this time. 06:04 Reassessment: Patient appears in no apparent distress at this time. Patient and/or bm8 family updated on plan of care and expected duration. Pain level reassessed. Patient is alert, oriented x 3, equal unlabored respirations, skin warm/dry/pink. NG tube placed per accepting hospitals request Patient denies pain at this time. 06:23 Reassessment: report to navin lynch at [facility] Vital Signs: 01:37 BP 147 / 51; Pulse 96; Resp 18; Temp 98.3(TE); Pulse Ox 100% on R/A; Weight 73.94 kg jb4 (R); Height 5 ft. 3 in. ; 02:58 BP 147 / 50; Pulse 92; Resp 18; Pulse Ox 99% on R/A; jb4 04:46 BP 135 / 54; Pulse 87; Resp 18; Temp 98.3; Pulse Ox 100% ; Pain 0/10; bm8 06:05 BP 148 / 72; Pulse 92; Resp 18; Temp 98.3; Pulse Ox 100% ; Pain 0/10; bm8 01:37 Body Mass Index 28.87 (73.94 kg, 160.02 cm) jb4 04:46 Pain Scale: Adult bm8 06:05 Pain Scale: Adult bm8 Vitals: 04:46 Cardiac Rhythm Assessment Sinus rhythm. bm8 Dwayne Coma Score: 04:46 Eye Response: to pain(2). Motor Response: obeys commands(6). Verbal Response: bm8 confused(4). Total: 12. 05:53 Eye Response: to pain(2). Motor Response: obeys commands(6). Verbal Response: sp4 confused(4). Total: 12. ED Course: 00:47 Patient arrived in ED. jj6 00:48 Martínez Acosta MD is Attending Physician. sp4 01:22 XRAY CXR (1 view) In Process Unspecified. EDMS 01:24 Bruce Ramirez, NAVIN is Primary Nurse. jb4 01:25 Urine Drug Screen Sent. jb4 01:39 Triage completed. jb4 01:39 Arm band placed on right wrist. jb4 01:40 Gracia cath inserted, using sterile technique, 16 Fr., by planer feeder, balloon inflated, to jb4 gravity drainage, urine specimen collected. Maintain EMS IV. Dressing intact. Good blood return noted. Site clean \T\ dry. Gauge \T\ site: 20 LFA. 01:40 Patient has correct armband on for positive identification. Bed in low position. Call jb4 light in reach. Side rails up X 1. Provided Education on: plan of care to daughter at the bedside.. 02:08 EKG done, by ED staff. vk 02:18 Hepatic Function Sent, Lipase, Magnesium, NT PRO-BNP, PT-INR, Ptt, Activated, Troponin jb4 HS, CPK, CBC with Diff, Blood Culture Adult (2), BMP Sent. 02:18 Inserted saline lock: 20 gauge in right antecubital area, using aseptic technique. jb4 Blood collected. 02:50 CT Head Brain wo Cont In Process Unspecified. EDMS 02:50 CT Chest Abdomen Pelvis W/O Contrast In Process Unspecified. EDMS 05:02 Initiated transfer with Parviz at [facility]. rv1 05:10 Doc to Doc with hospitalist at [facility]. rv1 05[address] Adame to [facility] 11C Rm 1151. Report #[id number]. rv1 05:56 No provider procedures requiring assistance completed. NGT: inserted 14 Fr. via left bm8 nare. verified placement of air over stomach, verified return of gastric contents, to intermittent suction. Returned gastric contents. Patient tolerated poorly. 06:06 Patient transferred, IV remains in place. bm8 06:06 Client placed on continuous cardiac and pulse oximetry monitoring. NIBP monitoring bm8 applied. compliance monitor on. Pulse ox on. NIBP on. 06:15 Transfer delayed due to needing to place NG Tube. rv1 Administered Medications: 01:55 Drug: Furosemide IVP 20 mg IVP once; give over 2 minutes Route: IVP; Site: left forearm;jb4 02:41 Follow up: Response: No adverse reaction jb4 03:04 Not Given (Pt unable to follow commands ): grams 45 ml PO once jb4 03:32 Drug: Rocephin - Rocephin (cefTRIAXone) IVPB 1 grams IVPB once over 30 mins; (mix in 50 lg3 mL NS) Route: IVPB; Infused Over: 30 mins; Site: right antecubital; 06:06 Follow up: Response: No adverse reaction; IV Status: Completed infusion; IV Intake: [id number] 06:42 Drug: Lactulose PO 30 grams 45 ml PO once; via NG tube {Note: given via NG tube.} bm8 Volume: 45 ml; Route: PO; 07:12 Follow up: Response: No adverse reaction bm8 06:42 Drug: Ondansetron IVP 8 mg IVP once; over 2 minutes Route: IVP; Site: right antecubital;bm8 07:12 Follow up: Response: No adverse reaction bm8 Medication: 01:40 VIS not applicable for this client. jb4 Intake: 06:06 IV: 50ml; Total: 50ml. bm8 Output: 03:23 Urine: 575ml (Gracia); Total: 575ml. jb4 Outcome: 06:09 ER care complete, transfer ordered by MD. posada 07:10 Transferred by ground EMS to [facility], Transfer form bm8 completed. X-rays sent w/ patient. 07:10 Condition: stable 07:10 Instructed on the need for transfer, Demonstrated understanding of instructions, follow-up care, 07:11 Patient left the ED. bm8 Signatures: Dispatcher [employer] EDMS Bruce Ramirez, RN RN jb4 Sushma Johnson RN RN lg3 Ankita Killian Rebecca rv1 Potepalov, Sergey, MD MD sp4 Haley Herron Brad, RN RN bm8 Corrections: (The following items were deleted from the chart) 01:55 01:37 BP 147 / 51; Pulse 96bpm; Resp 18bpm; Pulse Ox 100% RA; jb4 02:30 02:29 BASIC METABOLIC PANEL+C.LAB.BRZ drawn and sent. 4 02:30 02:29 BLOOD CULTURE*+BA.LAB.BRZ drawn and sent. 02:30 02:29 CBC+H.LAB.BRZ drawn and sent. 4 02:30 02:29 CREATINE PHOSPHOKINASE+C.LAB.BRZ drawn and sent. 4 02:30 02:29 Troponin High Sensitivity+C.LAB.BRZ drawn and sent. 4 02:30 02:29 PTT, ACTIVATED+COAG.LAB.BRZ drawn and sent. jb4 02:30 02:29 PROTIME (+INR)+COAG.LAB.BRZ drawn and sent. 4 02:30 02:29 PROBNP+C.LAB.BRZ drawn and sent. 4 02:30 02:29 MAGNESIUM+C.LAB.BRZ drawn and sent. 4 02:30 02:29 LIPASE+C.LAB.BRZ drawn and sent. 4 02:30 02:29 HEPATIC FUNCTION+C.LAB.BRZ drawn and sent. 4 03:10 01:40 Neuro: Level of Consciousness is obeys commands, confused, lethargic, Oriented to jb4 Pt is able to follow commands. is not answer questions.. jb4 03:11 01:56 Reassessment: Instructed to hold Lactulose at this time due to pt being unable to jb4 follow well enough to take medications. jb4 03:11 02:58 Reassessment: Pt remains unable to follow commands at this time. Respirations are jb4 even and unlabored. jb4
[2024-06-18] MEDS ORDERED: ONDANSETRON 4 MG/2 ML VIAL ONE (06:27)
[2024-06-18 07:27] VITALS: TEMP 98.3
[2024-06-18 07:38] VITALS: O2SAT 100
[2024-06-18 07:40] VITALS: BP 148/72
--- NOTE | 2024-06-18 11:27 | EKG ---
Test Date: 2024-06-18 Test Time: 01:10:59 Guidance Adviser: SHASTA MEASUREMENT RESULTS: Intervals: Rate: 105 MT: 112 QRSD: 80 QT: 330 QTc: 436 [place]: P: 41 MT: 112 QRS: 62 T: 52 INTERPRETIVE STATEMENTS: Sinus tachycardia Otherwise normal ECG No previous ECG available for comparison Electronically Signed On 06-18-24 11:27:10 SHEEP SHEARER by Forrest Hollingsworth
== END 2024-06-18 07:11 | disposition short-term general hospital (02) ==
LOC: ER 00:47
DX: K76.82 Hepatic encephalopathy (principal); D63.8 Anemia in other chronic diseases classified elsewhere; E72.20 Disorder of urea cycle metabolism, unspecified; K74.60 Unspecified cirrhosis of liver
CPT/HCPCS: 93005; 87040 ×2; 87088; 85025; 81001; 87086; 80048; 36415; 82140; 86900; 83735; 86850; 82550; 85610; 86901; 80076; 83605 ×2; 85730; 84443; 84484; 83690; 83880; 80307; 86140; 70450; 71250; 74176; 71045; 82077; J1940; J2405; J0696